=== PATIENT | female | born 1980 | race American Indian/Alaskan Native ===

== ENCOUNTER 2021-08-16 22:02 | Inpatient (IN) | payer MEDICARE ==
[2021-08-17 00:46] LABS: Basophils # (Auto) 0.1 K/mm3 (0.0-0.1); Basophils % (Auto) 1.2 % (0.0-1.8); Eosinophils # (Auto) 0.4 K/mm3 (0.0-0.4); Eosinophils % (Auto) 3.6 % (0.0-4.3); Hematocrit 36.7 % (30.3-42.9); Hemoglobin 12.1 gm/dl (10.1-14.3); Lymphocytes # (Auto) 1.1 K/mm3 (1.2-5.4); Lymphocytes % (Auto) 10.5 % (13.4-35.0); Mean Corpuscular HGB Conc 33 % (30-34); Mean Corpuscular Volume 86 fl (79-97); Monocytes # (Auto) 0.6 K/mm3 (0.0-0.8); Monocytes % (Auto) 5.6 % (0.0-7.3); Platelet Count 213 K/mm3 (140-440); Red Blood Count 4.27 M/mm3 (3.65-5.03); Red Cell Distribution Width 19.7 % (13.2-15.2)
[2021-08-17 00:54] LABS: Calcium 8.7 mg/dL (8.4-10.2)
[2021-08-17] MEDS ORDERED: INSULIN REGULAR, HUMAN 100 UNITS/1 ML SUB-Q ONE (00:57)
[2021-08-17] MEDS ORDERED: INSULIN REGULAR, HUMAN 100 UNITS/1 ML IV ONE (00:57)
--- NOTE | 2021-08-17 00:59 | Emergency Department Report ---
ED General Adult HPI - General Chief complaint: Hyperglycemia Stated complaint: HIGH BLOOD SUGAR Time Seen by Provider: 08/17/21 00:55 Source: EMS Mode of arrival: Stretcher Limitations: No Limitations, Physical Limitation - History of Present Illness Initial comments: 41 yo F with h/o CVA, chronic kidney disease currently on dialysis on Sunday, Sunday and Fridays and DM brought in by family member with altered mental status change that was noticed around 8 PM last night. Patient blood sugar was checked at home and it was above 500 mg/dl according to family member. Patient is reported to have type 1 diabetes and currently on insulin. Patient is unresponsive at this point and could not give any history. History is very limited to what the family member provided. Patient was reported to have missed dialysis on Sunday plan to have 1 this morning. No other modifying or associated factors reported. Severity scale (0 -10): 0 - Related Data Home Medications Medication Instructions Recorded Confirmed Last Taken Hydralazine HCl [hydrALAZINE] 100 mg PO TID 04/02/13 04/02/13 04/02/13 08:00 Levothyroxine [Synthroid] 125 mcg PO QAM 04/02/13 04/02/13 04/02/13 08:00 Previous Rx's Medication Instructions Recorded Last Taken Type Aspirin/Dipyridamole [Aggrenox] 1 cap PO BID #60 capsule 04/10/13 Unknown Rx Insulin Glargine,Hum.rec.anlog 20 unit SQ BID #10 ml 04/10/13 Unknown Rx [Lantus Solostar] Losartan [Cozaar] 50 mg PO QDAY #60 tablet 04/10/13 Unknown Rx Simvastatin (Nf) [Zocor TAB] 20 mg PO QHS #30 tablet 04/10/13 Unknown Rx Warfarin [Coumadin] 2.5 mg PO DAILY@1700 #30 tablet 04/10/13 Unknown Rx Warfarin [Coumadin] 10 mg PO DAILY@1700 #30 tablet 04/10/13 Unknown Rx Allergies Allergy/AdvReac Type Severity Reaction Status Date / Time vancomycin AdvReac Hives Verified 04/02/13 10:16 ED Review of Systems ROS: Stated complaint: HIGH BLOOD SUGAR Other details as noted in HPI Comment: All other systems reviewed and negative Constitutional: other (Unresponsive) ED Past Medical Hx - Past Medical History Previous Medical History?: Yes Hx Hypertension: Yes Hx CVA: Yes (x 2 years ago and x2 months ago) Hx Diabetes: Yes Hx Deep Vein Thrombosis: Yes (L leg) Hx Pulmonary Embolism: Yes Hx Headaches / Migraines: Yes Additional medical history: Hx kidney insufficiency - Surgical History Past Surgical History?: No - Social History Smoking Status: Unknown if ever smoked - Medications Home Medications: Home Medications Medication Instructions Recorded Confirmed Last Taken Type Hydralazine HCl [hydrALAZINE] 100 mg PO TID 04/02/13 04/02/13 04/02/13 08:00 History Levothyroxine [Synthroid] 125 mcg PO QAM 04/02/13 04/02/13 04/02/13 08:00 History Aspirin/Dipyridamole [Aggrenox] 1 cap PO BID #60 capsule 04/10/13 Unknown Rx Insulin Glargine,Hum.rec.anlog 20 unit SQ BID #10 ml 04/10/13 Unknown Rx [Lantus Solostar] Losartan [Cozaar] 50 mg PO QDAY #60 tablet 04/10/13 Unknown Rx Simvastatin (Nf) [Zocor TAB] 20 mg PO QHS #30 tablet 04/10/13 Unknown Rx Warfarin [Coumadin] 2.5 mg PO DAILY@1700 #30 tablet 04/10/13 Unknown Rx Warfarin [Coumadin] 10 mg PO DAILY@1700 #30 tablet 04/10/13 Unknown Rx ED Physical Exam - General Limitations: Altered Mental Status, Physical Limitation General appearance: in no apparent distress, lethargic - Head Head exam: Present: normal inspection - Eye Eye exam: Present: normal appearance - ENT ENT exam: Present: normal exam, normal orophraynx, mucous membranes dry - Neck Neck exam: Present: normal inspection, full ROM. Absent: tenderness - Respiratory Respiratory exam: Present: normal lung sounds bilaterally. Absent: respiratory distress, accessory muscle use - Cardiovascular Cardiovascular Exam: Present: regular rate, normal rhythm, normal heart sounds - GI/Abdominal GI/Abdominal exam: Present: soft, normal bowel sounds. Absent: tenderness - Extremities Exam Extremities exam: Present: normal inspection. Absent: tenderness - Back Exam Back exam: Absent: tenderness - Neurological Exam Neurological exam: Present: alert, other (Altered mental status) - Psychiatric Psychiatric exam: Present: normal affect, normal mood - Skin Skin exam: Present: warm ED Course Vital Signs 05/24/22 22:58 Temperature 98.1 F Pulse Rate 79 Respiratory 18 Rate Blood Pressure 181/64 [Right] O2 Sat by Pulse 96 Oximetry - Reevaluation(s) Reevaluation #1: 08/17/21 03:41 Here with altered mental status with elevated blood sugar at 594 mg/dL--this patient is likely in DKA or having a slight systemic infection--we will go ahead and start aggressive IV fluid 1 L bolus right away and give insulin 10 units IV and 10 units subcu--we will also order CT scan of the brain considering that this patient has history of CVA in the past to rule out any intracranial abnormality. 08/17/21 03:43 CT scan of the brain noted with no acute intracranial findings-- Reevaluation #2: 08/17/21 03:43 Elevated BUN/creatinine with normal potassium--also noted with blood sugar of 594 mg/dL--coupled with anion gap of 28--this is likely DKA so we will continue aggressive IV fluid hydration and start patient on insulin drip and consider admission to ICU. 08/17/21 03:45 Dr Ordoñez consulted who accept pt for further evaluation and treatment ED Medical Decision Making - Lab Data Result diagrams: 08/17/21 00:33 08/17/21 02:07 Critical Care Time: Yes (120) Critical care time in (mins) excluding proc time.: 120 Critical care attestation.: If time is entered above; I have spent that time in minutes in the direct care of this critically ill patient, excluding procedure time. Pt brought in with AMS and noted with hyperglycemia likely in DKA and was started on aggressive ivf ns hydration and given insulin and due to high probability of clinically significant, life threatening deterioration, this patient required my highest level of preparedness to intervene emergently and I personally spent this critical care time directly and personally managing this patient. This critical care time included obtaining a history; examining this patient; pulse oximetry ; ordering and review of studies ; arranging urgent treatment with development of a management plan ; evaluation of patient's response to treatment ; frequent reassessment ; and, discussion with other providers. This critical care time was performed to assess and manage the high probability of imminent, life-threatening deterioration that could result in multiple organ damage if not done in a timely fashion. Critical Care Time: 120 minutes ED Disposition Clinical Impression: DKA (diabetic ketoacidosis) Qualifiers: Diabetes mellitus type: type 1 Diabetes mellitus complication detail: without coma Qualified Code(s): E10.10 - Type 1 diabetes mellitus with ketoacidosis without coma Disposition: 09 ADMITTED INPATIENT Is pt being admited?: Yes Does the pt Need Aspirin: No Condition: Serious Instructions: Diabetic Ketoacidosis (ED) Referrals: PRIMARY CARE, [Primary Care Provider] - 3-5 Days
[2021-08-17] MEDS ORDERED: SODIUM CHLORIDE 0.9% 1000 ML 1,000 ML ONE (01:18)
[2021-08-17 02:37] LABS: INR 0.95 (0.87-1.13); Partial Thromboplastin Time 26.8 Sec. (24.2-36.6)
[2021-08-17 02:51] LABS: Albumin 3.9 g/dL (3.9-5); Blood Urea Nitrogen 61 mg/dL (7-17); Hemolysis Index 6
--- NOTE | 2021-08-17 02:55 | Cat Scan Report ---
CT HEAD WITHOUT CONTRAST INDICATION: Altered Mental Status TECHNIQUE: All CT scans at this location are performed using CT dose reduction for ALARA by means of automated exposure control. COMPARISON: None available. FINDINGS: NOTE: Moderate motion artifact is present. BRAIN: No hemorrhage or mass effect are seen. No evidence of acute infarction is noted. Old infarctio n of the right frontal parietal area is seen with old infarction of the anterior portion of the right thalamus. Probable old lacunar infarction in the left gallo radiata. Microvascular changes are seen . Right lateral ventricle is expanded thought related to prior infarctions. ORBITS: Normal as visualized. SOFT TISSUES OF HEAD: Normal. CALVARIUM: Normal. VISUALIZED PARANASAL SINUSES AND MASTOID AIR CELLS: Clear. ADDITIONAL FINDINGS: None. IMPRESSION: No acute intracranial abnormality is obvious in a difficult study. Signer Name: Mohsen Smith MD Signed: 08/17/2021 2:50 AM Workstation Name: [id number]
[2021-08-17 02:59] LABS: Alanine Aminotransferase < 5 units/L (7-56); BUN/Creatinine Ratio 6
[2021-08-17] MEDS ORDERED: MORPHINE 2 MG/1 ML INJ IV PRN ×2 (03:49→04:09)
[2021-08-17] MEDS ORDERED: ACETAMINOPHEN 325 MG TAB PO PRN ×2 (03:49→04:09)
[2021-08-17] MEDS ORDERED: DEXTROSE 50% IN WATER (25GM) 50 ML SYRINGE IV PRN ×2 (03:51→23:37)
[2021-08-17] MEDS ORDERED: INSULIN REGULAR, HUMAN 100 UNITS in SODIUM CHLORIDE 0.9% 99 ML IV SCH (04:00)
[2021-08-17] MEDS ORDERED: MORPHINE 4 MG/1 ML INJ IV PRN (04:09)
[2021-08-17] MEDS ORDERED: SODIUM CHLORIDE 0.9% 1000 ML 1,000 ML IV SCH (04:15)
--- NOTE | 2021-08-17 04:22 | History and Physical Report ---
History of Present Illness Date of examination: 08/17/21 Date of admission: 08/17/2021 Chief complaint: Altered mental status History of present illness: 41-year-old female with known history of CVA, end-stage renal disease on dialysis on Mondays, Wednesdays and Fridays, diabetes mellitus brought into the emergency room accompanied by family for evaluation of changes in mental status which was said to have started at about 8 PM yesterday. Blood glucose was said to have been checked at home and reading was said to be high. There has been no nausea or vomiting, no diarrhea no complaints of abdominal pain. No chest pain or shortness of breath. Most of the history was obtained from family who was by the bedside as patient is unable to give any history at this time. Patient was said to have missed a dialysis on Sunday because she had not been feeling quite well. Work-up in the emergency room today, labs shows blood glucose of 533, anion gap of 28, BUN of 61 and creatinine of 10.3. CT of the head reveals no acute abnormality. Patient has been started on IV fluid and insulin drip. She will be closely monitored in the intensive care unit. Past History Past Medical History: dialysis, DVT, ESRD, hypertension, migraines, stroke Past Surgical History: No surgical history Social history: no significant social history Medications and Allergies Allergies Allergy/AdvReac Type Severity Reaction Status Date / Time vancomycin AdvReac Hives Verified 04/02/13 10:16 Home Medications Medication Instructions Recorded Confirmed Last Taken Type Hydralazine HCl [hydrALAZINE] 100 mg PO TID 04/02/13 04/02/13 04/02/13 08:00 History Levothyroxine [Synthroid] 125 mcg PO QAM 04/02/13 04/02/13 04/02/13 08:00 History Aspirin/Dipyridamole [Aggrenox] 1 cap PO BID #60 capsule 04/10/13 Unknown Rx Insulin Glargine,Hum.rec.anlog 20 unit SQ BID #10 ml 04/10/13 Unknown Rx [Lantus Solostar] Losartan [Cozaar] 50 mg PO QDAY #60 tablet 04/10/13 Unknown Rx Simvastatin (Nf) [Zocor TAB] 20 mg PO QHS #30 tablet 04/10/13 Unknown Rx Warfarin [Coumadin] 2.5 mg PO DAILY@1700 #30 tablet 04/10/13 Unknown Rx Warfarin [Coumadin] 10 mg PO DAILY@1700 #30 tablet 04/10/13 Unknown Rx Active Meds: Active Medications Acetaminophen (Acetaminophen 325 Mg Tab) 650 mg PO Q6H PRN PRN Reason: Pain MILD(1-3)/Fever >100.5/ALFARO Acetaminophen (Acetaminophen 325 Mg Tab) 650 mg PO Q6H PRN PRN Reason: Pain MILD(1-3)/Fever >100.5/ALFARO Dextrose (Dextrose 50% In Water (25gm) 50 Ml Syringe) 0 ml IV Q30MIN PRN; Protocol PRN Reason: Hypoglycemia Insulin Human Regular 100 (units/ Sodium Chloride) 100 mls @ 1 mls/hr IV TITR HAM; Protocol Sodium Chloride (Nacl 0.9% 1000 Ml) 1,000 mls @ 150 mls/hr IV DIRECT HAM Potassium Chloride/Dextrose/Sod Cl (D5w/0.45% Nacl/Kcl 20 Meq) 20 meq in 1,000 mls @ 125 mls/hr IV DIRECT HAM Magnesium Hydroxide (Magnesium Hydroxide (Mom) Oral Liqd Udc) 30 ml PO Q4H PRN PRN Reason: Constipation Morphine Sulfate (Morphine 2 Mg/1 Ml Inj) 2 mg IV Q4H PRN PRN Reason: Pain, Moderate (4-6) Morphine Sulfate (Morphine 2 Mg/1 Ml Inj) 2 mg IV Q4H PRN PRN Reason: Pain, Moderate (4-6) Morphine Sulfate (Morphine 4 Mg/1 Ml Inj) 4 mg IV Q4H PRN PRN Reason: Pain , Severe (7-10) Ondansetron HCl (Ondansetron 4 Mg/2 Ml Inj) 4 mg IV Q8H PRN PRN Reason: Nausea And Vomiting Sodium Chloride (Sodium Chloride 0.9% 10 Ml Flush Syringe) 10 ml IV BID HAM Sodium Chloride (Sodium Chloride 0.9% 10 Ml Flush Syringe) 10 ml IV PRN PRN PRN Reason: LINE FLUSH Sodium Chloride (Sodium Chloride 0.9% 10 Ml Flush Syringe) 10 ml IV BID HAM Sodium Chloride (Sodium Chloride 0.9% 10 Ml Flush Syringe) 10 ml IV PRN PRN PRN Reason: LINE FLUSH Review of Systems ROS unobtainable: due to mental status Exam - Constitutional Vitals: Temp Pulse Resp BP Pulse Ox 98.1 F 79 18 181/64 96 08/16/21 22:58 08/16/21 22:58 08/16/21 22:58 08/16/21 22:58 08/16/21 22:58 General appearance: Present: no acute distress, well-nourished - EENT Eyes: Present: PERRL, EOM intact. Absent: scleral icterus ENT: hearing intact, clear oral mucosa, dentition normal, hearing decreased, other (Dry oral mucosa) - Neck Neck: Present: supple, normal ROM - Respiratory Respiratory effort: normal Respiratory: bilateral: CTA - Cardiovascular Rhythm: regular Heart Sounds: Present: S1 & S2. Absent: gallop, systolic murmur, diastolic murmur, rub, click - Extremities Extremities: no ischemia, pulses intact, pulses symmetrical, No edema, normal temperature, normal color, Full ROM Peripheral Pulses: within normal limits - Abdominal General gastrointestinal: Present: soft, non-tender, non-distended, normal bowel sounds. Absent: mass - Integumentary Integumentary: Present: clear, warm, dry, normal turgor. Absent: rash - Musculoskeletal Musculoskeletal: strength equal bilaterally - Psychiatric Psychiatric: appropriate mood/affect, intact judgment & insight, memory intact, cooperative - Neurologic Neurologic: CNII-XII intact, no focal deficits, moves all extremities Results - Labs CBC & Chem 7: 08/17/21 00:33 08/17/21 04:20 Labs: Abnormal lab results 08/17/21 08/17/21 08/17/21 Range/Units 00:33 00:33 02:07 RDW 19.7 H (13.2-15.2) % Lymph % (Auto) 10.5 L (13.4-35.0) % Lymph # (Auto) 1.1 L (1.2-5.4) K/mm3 Seg Neutrophils % 79.1 H (40.0-70.0) % Seg Neutrophils # 8.6 H (1.8-7.7) K/mm3 Sodium 132 L 134 L (137-145) mmol/L Chloride 87.8 L 88.4 L (98-107) mmol/L Carbon Dioxide 21 L (22-30) mmol/L BUN 61 H 61 H (7-17) mg/dL Creatinine 10.1 H 10.3 H (0.6-1.2) mg/dL Glucose 594 H* 533 H* (65-100) mg/dL ALT < 5 L (7-56) units/L Alkaline Phosphatase 182 H (35-129) units/L NT-Pro-B Natriuret Pep 87353 H (0-450) pg/mL TSH (0.270-4.200) mlU/mL Salicylates (2.8-20.0) mg/dL Acetaminophen (10.0-30.0) ug/mL 08/17/21 08/17/21 08/17/21 Range/Units 02:07 02:07 02:07 RDW (13.2-15.2) % Lymph % (Auto) (13.4-35.0) % Lymph # (Auto) (1.2-5.4) K/mm3 Seg Neutrophils % (40.0-70.0) % Seg Neutrophils # (1.8-7.7) K/mm3 Sodium (137-145) mmol/L Chloride (98-107) mmol/L Carbon Dioxide (22-30) mmol/L BUN (7-17) mg/dL Creatinine (0.6-1.2) mg/dL Glucose (65-100) mg/dL ALT (7-56) units/L Alkaline Phosphatase (35-129) units/L NT-Pro-B Natriuret Pep (0-450) pg/mL TSH 5.080 H (0.270-4.200) mlU/mL Salicylates < 0.3 L (2.8-20.0) mg/dL Acetaminophen 5.0 L (10.0-30.0) ug/mL Assessment and Plan - Patient Problems (1) DKA (diabetic ketoacidosis) Current Visit: Yes Status: Acute Qualifiers: Diabetes mellitus type: type 1 Diabetes mellitus complication detail: without coma Qualified Code(s): E10.10 - Type 1 diabetes mellitus with ketoacidosis without coma Plan to address problem: Patient admitted and placed on insulin drip and IV fluid. Will monitor Accu-Cheks closely. (2) End stage renal disease on dialysis Current Visit: Yes Status: Acute Plan to address problem: Consult will be placed to the web administrator for possible dialysis. Patient is dialysis on Mondays, Wednesdays and Fridays. (3) CVA (cerebral infarction) Current Visit: No Status: Acute Plan to address problem: Patient has known history of recent CVA. With left residual weakness. (4) HTN (hypertension) Current Visit: No Status: Chronic Plan to address problem: We will resume routine home medications once able to tolerate p.o. intake. Will monitor vital signs closely. (5) Hypothyroidism Current Visit: No Status: Chronic Plan to address problem: We will continue routine home medications. Monitor TSH. (6) DVT prophylaxis Current Visit: Yes Status: Acute Plan to address problem: Patient placed on subcutaneous heparin. (7) Full code status Current Visit: Yes Status: Acute Plan to address problem: Patient is full code.
[2021-08-17 04:55] LABS: Calcium 9.1 mg/dL (8.4-10.2)
[2021-08-17] MEDS ORDERED: D5W/0.45% NACL/KCL 20 MEQ 20 MEQ/1,000 ML BAG IV SCH (05:00)
[2021-08-17] MEDS: HEPARIN 5,000 UNIT/1 ML VIAL SUB-Q SCH ×3 (07:20→22:28)
[2021-08-17] MEDS ORDERED: SODIUM CHLORIDE 0.9% 100 ML IV PRN (07:41)
[2021-08-17] MEDS ORDERED: HEPARIN 10,000 UNITS/10 ML VIAL IV PRN (07:41)
--- NOTE | 2021-08-17 08:24 | Consultation ---
History of Present Illness Consult date: 08/17/21 Requesting physician: FRANCESCA CHAVEZ Reason for consult: other (DAK, acute encephalopathy, Sepsis) History of present illness: 41-year-old female past medical history CVA, ESRD on HD, diabetes presented to the hospital with her family due to acute encephalopathy. This began the day prior to admission but was ongoing today. She was found to be hyperglycemic on admission. She was admitted to the ICU for an insulin drip. Blood glucose was said to have been checked at home and reading was said to be high. There has been no nausea or vomiting, no diarrhea no complaints of abdominal pain. No chest pain or shortness of breath. Missed HD on Sunday because she was not feeling well. History as per medical records- patient is unable to give me a history She is moaning and has transmitted upper airway sounds Work-up in the emergency room today, labs shows blood glucose of 533, anion gap of 28, BUN of 61 and creatinine of 10.3. CT of the head reveals no acute abnormality. Patient has been started on IV fluid and insulin drip. Febrile to 102.9 tachycardic, tachypneic with a white count 10.8. COVID-negative. Cefepime and azithromycin. No cultures for review. Vancomycin allergy Had a permcath removed [address]: No acute abnormality. Past History Past Medical History: dialysis, DVT, ESRD, hypertension, migraines, stroke Past Surgical History: No surgical history Social history: no significant social history Medications and Allergies Allergies Allergy/AdvReac Type Severity Reaction Status Date / Time vancomycin AdvReac Hives Verified 04/02/13 10:16 Home Medications Medication Instructions Recorded Confirmed Last Taken Type Hydralazine HCl [hydrALAZINE] 100 mg PO BID 04/02/13 08/17/21 04/02/13 08:00 History Aspirin/Dipyridamole [Aggrenox] 1 cap PO BID #60 capsule 04/10/13 08/17/21 Unknown Rx Cinacalcet [Sensipar] 60 mg PO QDAY 08/17/21 08/17/21 Unknown History Citalopram [celeXA] 20 mg PO QDAY 08/17/21 08/17/21 Unknown History Ergocalciferol [Vitamin D2] 1 cap PO QWEEK 08/17/21 08/17/21 Unknown History Gabapentin [Neurontin] 100 mg PO Q8HR 08/17/21 08/17/21 Unknown History Insulin Glargine,Hum.rec.anlog 55 unit SQ BID 08/17/21 08/17/21 Unknown History [Lantus Solostar] Promethazine [Phenergan] 25 mg PO Q6HR PRN 08/17/21 08/17/21 Unknown History Sevelamer Carbonate [Renvela] 800 mg PO TIDWM 08/17/21 08/17/21 Unknown History amLODIPine [Norvasc] 10 mg PO DAILY 08/17/21 08/17/21 Unknown History carvediloL [Coreg] 25 mg PO BID 08/17/21 08/17/21 Unknown History cloNIDine [Catapres] 0.2 mg PO BID 08/17/21 08/17/21 Unknown History Active Meds: Active Medications Acetaminophen (Acetaminophen 325 Mg Tab) 650 mg PO Q6H PRN PRN Reason: Pain, Mild (1-3) Acetaminophen (Acetaminophen 650 Mg Rect Supp) 650 mg SC Q4H PRN PRN Reason: Pain, Mild (1-3) Dextrose (Dextrose 50% In Water (25gm) 50 Ml Syringe) 0 ml IV Q30MIN PRN; Protocol PRN Reason: Hypoglycemia Heparin Sodium (Porcine) (Heparin 5,000 Unit/1 Ml Vial) 5,000 unit SUB-Q Q8HR [facility] Last Admin: 08/17/21 07:20 Dose: Not Given Heparin Sodium (Porcine) (Heparin 10,000 Units/10 Ml Vial) 3,000 unit IV KATI PRN PRN Reason: hemodialysis Hydralazine HCl (Hydralazine 100 Mg Tab) 100 mg PO TID [facility] Hydralazine HCl (Hydralazine 20 Mg/1 Ml Inj) 10 mg IV Q4HR PRN PRN Reason: Hypertension Hydromorphone HCl (Hydromorphone 0.5 Mg/0.5 Ml Inj) 0.25 mg IV Q4H PRN PRN Reason: Pain, Moderate (4-6) Insulin Human Regular 100 (units/ Sodium Chloride) 100 mls @ 1 mls/hr IV TITR [facility]; Protocol Last Titration: 08/17/21 08:03 Dose: 3 units/hr, 3 mls/hr Sodium Chloride (Nacl 0.9% 1000 Ml) 1,000 mls @ 150 mls/hr IV DIRECT [facility] Last Admin: 08/17/21 07:33 Dose: 150 mls/hr Sodium Chloride (Nacl 0.9%) 100 mls @ 999 mls/hr IV KATI PRN PRN Reason: Hypotension Cefepime HCl (Cefepime/Ns 2 Gm/100 Ml) 2 gm in 100 mls @ 200 mls/hr IV Q24H [facility]; Protocol Azithromycin (Zithromax/Ns) 500 mg in 250 mls @ 250 mls/hr IV Q24H [facility] Dextrose/Sodium Chloride (D5/0.45ns) 1,000 mls @ 50 mls/hr IV DIRECT [facility] Levothyroxine Sodium (Levothyroxine 125 Mcg Tab) 125 mcg PO QAM@0600 [facility] Losartan Potassium (Losartan 50 Mg Tab) 50 mg PO QDAY [facility] Magnesium Hydroxide (Magnesium Hydroxide (Mom) Oral Liqd Udc) 30 ml PO Q4H PRN PRN Reason: Constipation Ondansetron HCl (Ondansetron 4 Mg/2 Ml Inj) 4 mg IV Q8H PRN PRN Reason: Nausea And Vomiting Sodium Chloride (Sodium Chloride 0.9% 10 Ml Flush Syringe) 10 ml IV BID HAM Sodium Chloride (Sodium Chloride 0.9% 10 Ml Flush Syringe) 10 ml IV PRN PRN PRN Reason: LINE FLUSH Review of Systems ROS unobtainable: due to mental status Physical Examination Vital signs: Vital Signs Temp Pulse Resp BP Pulse Ox 98.1 F 79 18 181/64 96 08/16/21 22:58 08/16/21 22:58 08/16/21 22:58 08/16/21 22:58 08/16/21 22:58 General appearance: other (minimally rsponsive, transmitted upper airway sounds, on supplemetnal oxygen) Eyes: non-icteric ENT: oropharynx dry Neck: supple, no lymphadenopathy Effort: mildly labored Ascultation: Bilateral: clear, diminished breath sounds Cardiovascular: regular rate and rhythm, other (S1,S2) Gastrointestinal: normoactive bowel sounds, soft, non-tender, other (obese) Integumentary: normal Extremities: no cyanosis, no edema Musculoskeletal: no deformities pupils equal and round, unable to assess (moves all extremities, not obeying commands) other (Unable to assess mood or affect secondary to mental status) Results - Laboratory Findings CBC and BMP: 08/18/21 04:56 08/18/21 04:56 PT/INR, D-dimer PT 13.7 Sec. (12.2-14.9) 08/17/21 02:07 INR 0.95 (0.87-1.13) 08/17/21 02:07 Abnormal lab findings: Abnormal Labs 08/17/21 08/17/21 08/17/21 00:33 00:33 02:07 RDW 19.7 H Lymph % (Auto) 10.5 L Lymph # (Auto) 1.1 L Seg Neutrophils % 79.1 H Seg Neutrophils # 8.6 H Sodium 132 L 134 L Chloride 87.8 L 88.4 L Carbon Dioxide 21 L BUN 61 H 61 H Creatinine 10.1 H 10.3 H Glucose 594 H* 533 H* POC Glucose Phosphorus ALT < 5 L Alkaline Phosphatase 182 H NT-Pro-B Natriuret Pep 43613 H TSH Salicylates Acetaminophen 08/17/21 08/17/21 08/17/21 02:07 02:07 02:07 RDW Lymph % (Auto) Lymph # (Auto) Seg Neutrophils % Seg Neutrophils # Sodium Chloride Carbon Dioxide BUN Creatinine Glucose POC Glucose Phosphorus ALT Alkaline Phosphatase NT-Pro-B Natriuret Pep TSH 5.080 H Salicylates < 0.3 L Acetaminophen 5.0 L 08/17/21 08/17/21 08/17/21 04:20 04:20 05:09 RDW Lymph % (Auto) Lymph # (Auto) Seg Neutrophils % Seg Neutrophils # Sodium 136 L Chloride 90.9 L Carbon Dioxide BUN 61 H Creatinine 10.4 H Glucose 351 H POC Glucose 298 H Phosphorus 6.20 H ALT Alkaline Phosphatase NT-Pro-B Natriuret Pep TSH Salicylates Acetaminophen - Diagnostic Findings Chest x-ray: image reviewed (Right lower lobe infiltrate, interstial edema) Assessment and Plan Possible Sepsis- high grade fevers, tachycardia, acute encephalopathy, tachypnea DKA (Diabetic Ketoacidosis) Acute Metabolic Encephalopathy h/o CVA (cerebral infarction) with left-sided deficits End Stage renal Disease(ESRD) on HD HTN (Hypertension) h/o Hypothyroidism -Titrate supplemental oxygen to keep SpO2 89-92% -Aspiration precautions, keep NPO until mental status improves -Supportive HD per Renal -Antibiotics per ID, de-escalate based on culture data and clinical response -Monitor hemodynamics closely -Continue insulin infusion, serial BMPs, adjust and replete electrolytes per protocol -Monitor blood glucose, avoid hypoglycemia- challenging fluid management in the setting of DKA and ESRD -VTE prophylaxis- heparin -Mobility per facility protocol to avoid pressure ulcers -In the setting of previous CVA and on going encephalopathy- will recommend an MRI to r/o CVA. - Get thyroid function test. resume home Synthroid once patient is awake enough to protect airway -Monitor closely she is at risk of acute decompensation from a neurologic perspective; at risk for airway compromise CONDITION: CRITICAL PROGNOSIS: GUARDED CODE STATUS: FULL CODE Discussed care plan with nursing care team, pharmacy and primary service The high probability of a clinically significant, sudden or life threatening deterioration of the [multiple] system(s) required my full and direct attention, intervention and personal management. The aggregate critical care time was [76] minutes. This time is in addition to time spent performing reported procedures but includes the following: [x] Data Review and interpretation [x] Patient assessment and monitoring of vital signs [x] Documentation [x] Medication orders and management
[2021-08-17] MEDS: hydrALAZINE 100 MG TAB PO SCH ×3 (08:31→22:28)
[2021-08-17] MEDS: CEFEPIME/NS 2 GM/100 ML 2 GM/100 ML BAG IV SCH (08:37)
[2021-08-17] MEDS: ACETAMINOPHEN 650 MG RECT SUPP PR PRN ×2 (08:38→14:49)
[2021-08-17] MEDS: hydrALAZINE 20 MG/1 ML INJ IV PRN ×3 (08:43→20:53)
[2021-08-17] MEDS ORDERED: D5W/0.45% NACL 1,000 ML IV SCH (09:00)
[2021-08-17] MEDS ORDERED: AZITHROMYCIN/NS 500 MG/250 ML 500 MG/250 ML BAG IV SCH (09:00)
[2021-08-17] MEDS: LEVOTHYROXINE 125 MCG TAB PO SCH (09:09)
[2021-08-17] MEDS: LOSARTAN 50 MG TAB PO SCH (09:09)
--- NOTE | 2021-08-17 11:33 | XRay Report ---
CHEST 1 VIEW 08/17/2021 10:25 AM INDICATION / CLINICAL INFORMATION: Fever. COMPARISON: 04/02/2013 FINDINGS: SUPPORT DEVICES: None. HEART / MEDIASTINUM: No significant abnormality. LUNGS / PLEURA: There is poor inspiration. No significant pulmonary or pleural abnormality. No pneumo thorax. ADDITIONAL FINDINGS: No significant additional findings. IMPRESSION: 1. No acute findings. Signer Name: Steven Scales Jr, MD Signed: 08/17/2021 11:28 AM Workstation Name: [id number]
[2021-08-17] MEDS: FAMOTIDINE 20 MG/2 ML INJ IV SCH (11:40)
--- NOTE | 2021-08-17 11:41 | Consultation ---
History of Present Illness Consult date: 08/17/21 Reason for Consult: Altered mentation,Hyperglycemia,Hx of ESRD,Hx of CVA History of present illness: Altered mental status History of present illness: 41-year-old female with known history of CVA, end-stage renal disease on dialysis on Mondays, Wednesdays and Fridays, diabetes mellitus brought into the emergency room accompanied by family for evaluation of changes in mental status which was said to have started at about 8 PM yesterday. Blood glucose was said to have been checked at home and reading was said to be high. There has been no nausea or vomiting, no diarrhea no complaints of abdominal pain. No chest pain or shortness of breath. Most of the history was obtained from family who was by the bedside as patient is unable to give any history at this time. Patient was said to have missed a dialysis on Sunday because she had not been feeling quite well. Work-up in the emergency room today, labs shows blood glucose of 533, anion gap of 28, BUN of 61 and creatinine of 10.3. CT of the head reveals no acute abnormality. Patient has been started on IV fluid and insulin drip. She will be closely mon itored in the intensive care unit. Neurology consulted for evaluation of status she is not following command , had slight legs jerking bialteral , off sdeation ,on dialysis today BP#201/84 CT brain is unremarkable Glucose#533--351 [id number] Past History Past Medical History: dialysis, DVT, ESRD, hypertension, migraines, stroke Past Surgical History: No surgical history Social history: no significant social history Medications and Allergies Allergies Allergy/AdvReac Type Severity Reaction Status Date / Time vancomycin AdvReac Hives Verified 04/02/13 10:16 Home Medications Medication Instructions Recorded Confirmed Last Taken Type Hydralazine HCl [hydrALAZINE] 100 mg PO TID 04/02/13 04/02/13 04/02/13 08:00 Hi story Levothyroxine [Synthroid] 125 mcg PO QAM 04/02/13 04/02/13 04/02/13 08:00 History Aspirin/Dipyridamole [Aggrenox] 1 cap PO BID #60 capsule 04/10/13 Unknown Rx Insulin Glargine,Hum.rec.anlog 20 unit SQ BID #10 ml 04/10/13 Unknown Rx [Lantus Solostar] Losartan [Cozaar] 50 mg PO QDAY #60 tablet 04/10/13 Unknown Rx Simvastatin (Nf) [Zocor TAB] 20 mg PO QHS #30 tablet 04/10/13 Unknown Rx Warfarin [Coumadin] 2.5 mg PO DAILY@1700 #30 tablet 04/10/13 Unknown Rx Warfarin [Coumadin] 10 mg PO DAILY@1700 #30 tablet 04/10/13 Unknown Rx Active Meds: Active Medications Acetaminophen (Acetaminophen 325 Mg Tab) 650 mg PO Q6H PRN PRN Reason: Pain MILD(1-3)/Fever >100.5/[place] Acetaminophen (Acetaminophen 325 Mg Tab) 650 mg PO Q6H PRN PRN Reason: Pain MILD(1-3)/Fever >100.5/[place] Dextrose (Dextrose 50% In Water (25gm) 50 Ml Syringe) 0 ml IV Q30MIN PRN; Protocol PRN Reason: Hypoglycemia Insulin Human Regular 100 (units/ Sodium Chloride) 100 mls @ 1 mls/hr IV TITR HAM; Protocol Sodium Chloride (Nacl 0.9% 1000 Ml) 1,000 mls @ 150 mls/hr IV DIRECT [facility] Potassium Chloride/Dextrose/Sod Cl (D5w/0.45% Nacl/Kcl 20 Meq) 20 meq in 1,000 mls @ 125 mls/hr IV DIRECT [facility] Magnesium Hydroxide (Magnesium Hydroxide (Mom) Oral Liqd Udc) 30 ml PO Q4H PRN PRN Reason: Constipation Morphine Sulfate (Morphine 2 Mg/1 Ml Inj) 2 mg IV Q4H PRN PRN Reason: Pain, Moderate (4-6) Morphine Sulfate (Morphine 2 Mg/1 Ml Inj) 2 mg IV Q4H PRN PRN Reason: Pain, Moderate (4-6) Morphine Sulfate (Morphine 4 Mg/1 Ml Inj) 4 mg IV Q4H PRN PRN Reason: Pain , Severe (7-10) Ondansetron HCl (Ondansetron 4 Mg/2 Ml Inj) 4 mg IV Q8H PRN PRN Reason: Nausea And Vomiting Sodium Chloride (Sodium Chloride 0.9% 10 Ml Flush Syringe) 10 ml IV BID HAM Sodium Chloride (Sodium Chloride 0.9% 10 Ml Flush Syringe) 10 ml IV PRN PRN PRN Reason: LINE FLUSH Sodium Chloride (Sodium Chloride 0.9% 10 Ml Flush Syringe) 10 ml IV BID HAM Sodium Chloride (Sodium Chloride 0.9% 10 Ml Flush Syringe) 10 ml IV PRN PRN PRN Reason: LINE FLUSH Review of Systems ROS unobtainable: due to mental status Exam Past History Past Medical History: dialysis, DVT, ESRD, hypertension, migraines, stroke Past Surgical History: No surgical history Social history: no significant social history Medications and Allergies Allergies Allergy/AdvReac Type Severity Reaction Status Date / Time vancomycin AdvReac Hives Verified 04/02/13 10:16 Home Medications Medication Instructions Recorded Confirmed Last Taken Type Hydralazine HCl [hydrALAZINE] 100 mg PO TID 04/02/13 04/02/13 04/02/13 08:00 History Levothyroxine [Synthroid] 125 mcg PO QAM 04/02/13 04/02/13 04/02/13 08:00 History Aspirin/Dipyridamole [Aggrenox] 1 cap PO BID #60 capsule 04/10/13 Unknown Rx Insulin Glargine,Hum.rec.anlog 20 unit SQ BID #10 ml 04/10/13 Unknown Rx [Lantus Solostar] Losartan [Cozaar] 50 mg PO QDAY #60 tablet 04/10/13 Unknown Rx Simvastatin (Nf) [Zocor TAB] 20 mg PO QHS #30 tablet 04/10/13 Unknown Rx Warfarin [Coumadin] 2.5 mg PO DAILY@1700 #30 tablet 04/10/13 Unknown Rx Warfarin [Coumadin] 10 mg PO DAILY@1700 #30 tablet 04/10/13 Unknown Rx Active Meds: Active Medications Acetaminophen (Acetaminophen 325 Mg Tab) 650 mg PO Q6H PRN PRN Reason: Pain, Mild (1-3) Acetaminophen (Acetaminophen 650 Mg Rect Supp) 650 mg ID Q4H PRN PRN Reason: Pain, Mild (1-3) Last Admin: 08/17/21 08:38 Dose: 650 mg Dextrose (Dextrose 50% In Water (25gm) 50 Ml Syringe) 0 ml IV Q30MIN PRN; Protocol PRN Reason: Hypoglycemia Famotidine (Famotidine 20 Mg/2 Ml Inj) 20 mg IV QDAY [facility] Heparin Sodium (Porcine) (Heparin 5,000 Unit/1 Ml Vial) 5,000 unit SUB-Q Q8HR [facility] Last Admin: 08/17/21 07:20 Dose: Not Given Heparin Sodium (Porcine) (Heparin 10,000 Units/10 Ml Vial) 3,000 unit IV KATI PRN PRN Reason: hemodialysis Hydralazine HCl (Hydralazine 100 Mg Tab) 100 mg PO TID [facility] Last Admin: 08/17/21 08:31 Dose: Not Given Hydralazine HCl (Hydralazine 20 Mg/1 Ml Inj) 10 mg IV Q4HR PRN PRN Reason: Hypertension Last Admin: 08/17/21 08:43 Dose: 10 mg Hydromorphone HCl (Hydromorphone 0.5 Mg/0.5 Ml Inj) 0.25 mg IV Q4H PRN PRN Reason: Pain, Moderate (4-6) Insulin Human Regular 100 (units/ Sodium Chloride) 100 mls @ 1 mls/hr IV TITR [facility]; Protocol Last Titration: 08/17/21 10:55 Dose: 2 units/hr, 2 mls/hr Sodium Chloride (Nacl 0.9% 1000 Ml) 1,000 mls @ 150 mls/hr IV DIRECT [facility] Last Infusion: 08/17/21 08:40 Dose: 0 mls/hr Sodium Chloride (Nacl 0.9%) 100 mls @ 999 mls/hr IV KATI PRN PRN Reason: Hypotension Cefepime HCl (Cefepime/Ns 2 Gm/100 Ml) 2 gm in 100 mls @ 200 mls/hr IV Q24H [facility]; Protocol Last Infusion: 08/17/21 09:10 Dose: Infused Azithromycin (Zithromax/Ns) 500 mg in 250 mls @ 250 mls/hr IV Q24H [facility] Last Admin: 08/17/21 08:38 Dose: 250 mls/hr Dextrose/Sodium Chloride (D5/0.45ns) 1,000 mls @ 50 mls/hr IV DIRECT [facility] Last Admin: 08/17/21 08:39 Dose: 50 mls/hr Levothyroxine Sodium (Levothyroxine 125 Mcg Tab) 125 mcg PO QAM@0600 [facility] Last Admin: 08/17/21 09:09 Dose: Not Given Losartan Potassium (Losartan 50 Mg Tab) 50 mg PO QDAY [facility] Last Admin: 08/17/21 09:09 Dose: Not Given Magnesium Hydroxide (Magnesium Hydroxide (Mom) Oral Liqd Udc) 30 ml PO Q4H PRN PRN Reason: Constipation Ondansetron HCl (Ondansetron 4 Mg/2 Ml Inj) 4 mg IV Q8H PRN PRN Reason: Nausea And Vomiting Sodium Chloride (Sodium Chloride 0.9% 10 Ml Flush Syringe) 10 ml IV BID [facility] Last Admin: 08/17/21 09:09 Dose: 10 ml Sodium Chloride (Sodium Chloride 0.9% 10 Ml Flush Syringe) 10 ml IV PRN PRN PRN Reason: LINE FLUSH Physical Examination - Vital Signs Vital Signs: Vital Signs Temp Pulse Resp BP Pulse Ox 98.1 F 79 18 181/64 96 08/16/21 22:58 08/16/21 22:58 08/16/21 22:58 08/16/21 22:58 08/16/21 22:58 - Constitutional General appearance: uncomfortable - EENT EENT: Present: PERRL, mucous membranes moist - Respiratory Respiratory: Present: lungs clear, rhonchi - Cardiovascular Cardiovascular: Present: regular rate, normal S1, normal S2 Extremities: Present: no peripheral edema bilatateraly, no clubbing, cyanosis - Gastrointestinal Gastrointestinal: Present: normoactive bowel sounds - Integumentary Integumentary: Present: normal - Neurologic Cranial nerve examination: PERRL, EOMI, intact, other (suppressed corneal on right side , no facial asymmetry) Speech examination: other (intubated unresponsive) Detailed motor examination: other (move both side R>L , slight ioncrease tone on left side , Jerking both legs ,planter is down going) Results - Laboratory Findings CBC and BMP: 08/17/21 00:33 08/17/21 04:20 Abnormal Lab Findings: Abnormal Labs 08/17/21 08/17/21 08/17/21 00:33 00:33 02:07 RDW 19.7 H Lymph % (Auto) 10.5 L Lymph # (Auto) 1.1 L Seg Neutrophils % 79.1 H Seg Neutrophils # 8.6 H Sodium 132 L 134 L Chloride 87.8 L 88.4 L Carbon Dioxide 21 L BUN 61 H 61 H Creatinine 10.1 H 10.3 H Glucose 594 H* 533 H* POC Glucose Phosphorus ALT < 5 L Alkaline Phosphatase 182 H NT-Pro-B Natriuret Pep 18633 H TSH Salicylates Acetaminophen 08/17/21 08/17/21 08/17/21 02:07 02:07 02:07 RDW Lymph % (Auto) Lymph # (Auto) Seg Neutrophils % Seg Neutrophils # Sodium Chloride Carbon Dioxide BUN Creatinine Glucose POC Glucose Phosphorus ALT Alkaline Phosphatase NT-Pro-B Natriuret Pep TSH 5.080 H Salicylates < 0.3 L Acetaminophen 5.0 L 08/17/21 08/17/21 08/17/21 04:20 04:20 05:09 RDW Lymph % (Auto) Lymph # (Auto) Seg Neutrophils % Seg Neutrophils # Sodium 136 L Chloride 90.9 L Carbon Dioxide BUN 61 H Creatinine 10.4 H Glucose 351 H POC Glucose 298 H Phosphorus 6.20 H ALT Alkaline Phosphatase NT-Pro-B Natriuret Pep TSH Salicylates Acetaminophen 08/17/21 09:58 RDW Lymph % (Auto) Lymph # (Auto) Seg Neutrophils % Seg Neutrophils # Sodium Chloride Carbon Dioxide BUN Creatinine Glucose POC Glucose 139 H Phosphorus ALT Alkaline Phosphatase NT-Pro-B Natriuret Pep TSH Salicylates Acetaminophen Assessment and Plan Assessment and Plan 41-year-old female with known history of CVA, end-stage renal disease on dialysis on Mondays, Wednesdays and Fridays, diabetes mellitus brought into the emergency room accompanied by family for evaluation of changes in mental status which was said to have started at about 8 PM yesterday. Blood glucose was said to have been checked at home and reading was said to be high. There has been no nausea or vomiting, no diarrhea no complaints of abdominal pain. No chest pain or shortness of breath. Most of the history was obtained from family who was by the bedside as patient is unable to give any history at this time. Patient was said to have missed a dialysis on Sunday because she had not been feeling quite well. Work-up in the emergency room today, labs shows blood glucose of 533, anion gap of 28, BUN of 61 and creatinine of 10.3. CT of the head reveals no acute abnormality. - Patient Problems #Acute encephalopathy -Pt. is with poorly controlled Diabetes -Hx of ESRD on Dialysis -no sedation , -today is unresponsive move R>L with right decrease corneal reflex -legs jerking bilateral -R/O Seizure -R/O CVA, -MRI brain -EEG -Seizure precaution -Correct underlying infection/electrolytes abnormalities/Dialysis -started on ASA 325 daily -LDL -Echo cardiogram # DKA (diabetic ketoacidosis) -ketoacidosis without coma -Patient admitted and placed on insulin drip and IV fluid. -Will monitor Accu-Cheks closely. # End stage renal disease on dialysis -Consult will be placed to the camp dishwasher for possible dialysis. -Patient is dialysis on Mondays, Wednesdays and Fridays. # hx of CVA -left side weakness -start on ASA , -Lipid profil -Echo # HTN ,Poorly controlled -201/84 -Control BP<150/85 after review MRI R/O CVA -CT brain is unremarkable # Hypothyroidism -We will continue routine home medications. Monitor TSH. # DVT prophylaxis -Patient placed on subcutaneous heparin. # Full code status -Patient is full code. PLAN 1- EEG 2- MRI brain 3-ASA 325 mg daily 4- Dialysis 5- Control BS 6- Control BP will follow
--- NOTE | 2021-08-17 12:16 | Electrocardiograph Report ---
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
--- NOTE | 2021-08-17 12:38 | Event Note ---
<ADAM WORKMAN - Last Filed: 08/17/21 23:30> Date: 08/17/21 This is a 41 year-old female with known past medical history of CVA, DVT, HTM, ESRD on HD(MWF), and type 2 diabetes mellitus admitted for DKA Patient seen and examined at the bedside. Patient remains alert and obtunded, only arousable with stimuli. CT head noted with no acute abnormality. Neurology consulted. On 2L NC and able to protect her airway. Patient remains on insulin gtt per DKA protocol, BG is improving and anion gap most likely due to ESRD. Plan for HD today per Nephro, possible transition to subQ insulin post HD treatment. Patient is also febrile this am, VSS. Orders placed for blood cultures, empiric IV abx was initiated and ID was consulted. 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 - Orders placed for blood cultures - Empiric IV abx initiated - ID was also consulted - Continue to F/U on B.cultures - Daily CBC monitor #End Stage renal Disease(ESRD) on HD - Nephrology on consult, appreciated recommendation - HD per Nephro - Strict intake and output, patient is anuric - Avoid nephrotoxic medications; Renally dose medications - Monitor and replace electrolytes as needed #Acute Metabolic Encephalopathy #H/o CVA (cerebral infarction) with left-sided deficits - Multifactorial, DKA vs azotemia vs infectious process - Patient remains alerted and obtunded this am - CT head noted with mo acute abnormality - On DKA protocol, HD per Nephro, and on IV abx - Fall and safety precaution - Aspiration precaution - Frequent reorientation - Avoid benzodiazepine to reduce the possibility of delirium - Maintenance of sleep-wake cycle #HTN (Hypertension) - Hypertensive this am, patient unable to take PO meds due to alerted mentation - PO antihypertensives held - PRN Hydralazine and Labetalol for SBP greater than 160 - Continue blood pressure monitor per protocol #Hypothyroidism - Resume home synthroid #GI/ DVT Prophylaxis - PPI- Pepcid - Heparin SubQ - SCDs to bilateral lower extremities while in bed +CCT 30 minutes <JACQUIE HAMMOND - Last Filed: 08/18/21 07:03> I saw and evaluated the patient. I agree with the findings and the plan of care as documented in the Nurse Practitioner's~note, with the following corrections and additions. Advance care planning Current Visit: Yes Status: Acute Plan to address problem: Disease education data, care plan discussed, diagnoses discussed, prognosis discussed, patient is full code. Patient family knowledges understanding and agreement with care plan, +30 minutes.
--- NOTE | 2021-08-17 13:06 | Consultation ---
History of Present Illness - Reason for Consult Consult date: 08/17/21 - History of Present Illness 41-year-old female past medical history CVA, ESRD on HD, diabetes presented to the hospital with her family due to acute encephalopathy. This began the day prior to admission but was ongoing today. She was found to be hyperglycemic on admission. She was admitted to the ICU for an insulin drip. Febrile to 102.9 tachycardic, tachypneic with a white count 10.8. COVID- negative. Cefepime and azithromycin. No cultures for review. Imaging personally viewed: Chest x-ray: No acute findings. Head CT: No acute abnormality. Past History Past Medical History: dialysis, DVT, ESRD, hypertension, migraines, stroke Past Surgical History: No surgical history Social history: no significant social history Family history: diabetes, hypertension Medications and Allergies Allergies Allergy/AdvReac Type Severity Reaction Status Date / Time vancomycin AdvReac Hives Verified 04/02/13 10:16 Home Medications Medication Instructions Recorded Confirmed Last Taken Type Hydralazine HCl [hydrALAZINE] 100 mg PO TID 04/02/13 04/02/13 04/02/13 08:00 History Levothyroxine [Synthroid] 125 mcg PO QAM 04/02/13 04/02/13 04/02/13 08:00 History Aspirin/Dipyridamole [Aggrenox] 1 cap PO BID #60 capsule 04/10/13 Unknown Rx Insulin Glargine,Hum.rec.anlog 20 unit SQ BID #10 ml 04/10/13 Unknown Rx [Lantus Solostar] Losartan [Cozaar] 50 mg PO QDAY #60 tablet 04/10/13 Unknown Rx Simvastatin (Nf) [Zocor TAB] 20 mg PO QHS #30 tablet 04/10/13 Unknown Rx Warfarin [Coumadin] 2.5 mg PO DAILY@1700 #30 tablet 04/10/13 Unknown Rx Warfarin [Coumadin] 10 mg PO DAILY@1700 #30 tablet 04/10/13 Unknown Rx Active Meds: Active Medications Acetaminophen (Acetaminophen 325 Mg Tab) 650 mg PO Q6H PRN PRN Reason: Pain, Mild (1-3) Acetaminophen (Acetaminophen 650 Mg Rect Supp) 650 mg CO Q4H PRN PRN Reason: Pain, Mild (1-3) Last Admin: 08/17/21 08:38 Dose: 650 mg Aspirin (Aspirin Ec 325 Mg Tab) 325 mg PO QDAY [facility] Dextrose (Dextrose 50% In Water (25gm) 50 Ml Syringe) 0 ml IV Q30MIN PRN; Protocol PRN Reason: Hypoglycemia Famotidine (Famotidine 20 Mg/2 Ml Inj) 20 mg IV QDAY [facility] Last Admin: 08/17/21 11:40 Dose: 20 mg Heparin Sodium (Porcine) (Heparin 5,000 Unit/1 Ml Vial) 5,000 unit SUB-Q Q8HR [facility] Last Admin: 08/17/21 07:20 Dose: Not Given Heparin Sodium (Porcine) (Heparin 10,000 Units/10 Ml Vial) 3,000 unit IV KATI PRN PRN Reason: hemodialysis Hydralazine HCl (Hydralazine 100 Mg Tab) 100 mg PO TID [facility] Last Admin: 08/17/21 08:31 Dose: Not Given Hydralazine HCl (Hydralazine 20 Mg/1 Ml Inj) 10 mg IV Q4HR PRN PRN Reason: Hypertension Last Admin: 08/17/21 08:43 Dose: 10 mg Hydromorphone HCl (Hydromorphone 0.5 Mg/0.5 Ml Inj) 0.25 mg IV Q4H PRN PRN Reason: Pain, Moderate (4-6) Insulin Human Regular 100 (units/ Sodium Chloride) 100 mls @ 1 mls/hr IV TITR [facility]; Protocol Last Titration: 08/17/21 11:58 Dose: 2 units/hr, 2 mls/hr Sodium Chloride (Nacl 0.9% 1000 Ml) 1,000 mls @ 150 mls/hr IV DIRECT [facility] Last Infusion: 08/17/21 08:40 Dose: 0 mls/hr Sodium Chloride (Nacl 0.9%) 100 mls @ 999 mls/hr IV KATI PRN PRN Reason: Hypotension Cefepime HCl (Cefepime/Ns 2 Gm/100 Ml) 2 gm in 100 mls @ 200 mls/hr IV Q24H [facility]; Protocol Last Infusion: 08/17/21 09:10 Dose: Infused Azithromycin (Zithromax/Ns) 500 mg in 250 mls @ 250 mls/hr IV Q24H [facility] Last Admin: 08/17/21 08:38 Dose: 250 mls/hr Dextrose/Sodium Chloride (D5/0.45ns) 1,000 mls @ 50 mls/hr IV DIRECT [facility] Last Admin: 08/17/21 08:39 Dose: 50 mls/hr Levothyroxine Sodium (Levothyroxine 125 Mcg Tab) 125 mcg PO QAM@0600 [facility] Last Admin: 08/17/21 09:09 Dose: Not Given Losartan Potassium (Losartan 50 Mg Tab) 50 mg PO QDAY [facility] Last Admin: 08/17/21 09:09 Dose: Not Given Magnesium Hydroxide (Magnesium Hydroxide (Mom) Oral Liqd Udc) 30 ml PO Q4H PRN PRN Reason: Constipation Ondansetron HCl (Ondansetron 4 Mg/2 Ml Inj) 4 mg IV Q8H PRN PRN Reason: Nausea And Vomiting Sodium Chloride (Sodium Chloride 0.9% 10 Ml Flush Syringe) 10 ml IV BID [facility] Last Admin: 08/17/21 09:09 Dose: 10 ml Sodium Chloride (Sodium Chloride 0.9% 10 Ml Flush Syringe) 10 ml IV PRN PRN PRN Reason: LINE FLUSH Review of Systems ROS unobtainable: due to mental status Physical Examination - Physical Exam Narrative exam: Physical Exam: Constitutional: Awake, confused Head, Ears, Nose: Normocephalic, atraumatic. External ears, nose normal Eyes: Conjunctivae/corneas clear. No icterus. No ptosis. Neck: Supple, no meningeal signs Oral: dentition fair, no thrush Cardiovascular: S1, S2 normal. Respiratory: Good air entry, clear to auscultation bilaterally GI: Soft, non-tender; bowel sounds normal. No peritoneal signs. Musculoskeletal: No pedal edema, no cyanosis. Skin: No rash or abscess Hem/Lymphatic: No palpable cervical or supraclavicular nodes. No lymphangitis Psych: Confused Neurological: Confused awake - Constitutional Vitals: Vital Signs Temp Pulse Resp BP Pulse Ox 102.9 F H 102 H 26 H 201/84 100 08/17/21 07:40 08/17/21 09:00 08/17/21 09:00 08/17/21 09:00 08/17/21 09:00 Temperature -Last 24 Hours Temperature 102.9 F Temperature 98.1 F Results - Labs CBC & Chem 7: 08/17/21 00:33 08/17/21 04:20 Labs: Abnormal lab results 08/17/21 08/17/21 08/17/21 Range/Units 00:33 00:33 02:07 RDW 19.7 H (13.2-15.2) % Lymph % (Auto) 10.5 L (13.4-35.0) % Lymph # (Auto) 1.1 L (1.2-5.4) K/mm3 Seg Neutrophils % 79.1 H (40.0-70.0) % Seg Neutrophils # 8.6 H (1.8-7.7) K/mm3 Sodium 132 L 134 L (137-145) mmol/L Chloride 87.8 L 88.4 L (98-107) mmol/L Carbon Dioxide 21 L (22-30) mmol/L BUN 61 H 61 H (7-17) mg/dL Creatinine 10.1 H 10.3 H (0.6-1.2) mg/dL Glucose 594 H* 533 H* (65-100) mg/dL POC Glucose (70-105) mg/dL Phosphorus (2.5-4.5) mg/dL ALT < 5 L (7-56) units/L Alkaline Phosphatase 182 H (35-129) units/L NT-Pro-B Natriuret Pep 64168 H (0-450) pg/mL TSH (0.270-4.200) mlU/mL Salicylates (2.8-20.0) mg/dL Acetaminophen (10.0-30.0) ug/mL 08/17/21 08/17/21 08/17/21 Range/Units 02:07 02:07 02:07 RDW (13.2-15.2) % Lymph % (Auto) (13.4-35.0) % Lymph # (Auto) (1.2-5.4) K/mm3 Seg Neutrophils % (40.0-70.0) % Seg Neutrophils # (1.8-7.7) K/mm3 Sodium (137-145) mmol/L Chloride (98-107) mmol/L Carbon Dioxide (22-30) mmol/L BUN (7-17) mg/dL Creatinine (0.6-1.2) mg/dL Glucose (65-100) mg/dL POC Glucose (70-105) mg/dL Phosphorus (2.5-4.5) mg/dL ALT (7-56) units/L Alkaline Phosphatase (35-129) units/L NT-Pro-B Natriuret Pep (0-450) pg/mL TSH 5.080 H (0.270-4.200) mlU/mL Salicylates < 0.3 L (2.8-20.0) mg/dL Acetaminophen 5.0 L (10.0-30.0) ug/mL 08/17/21 08/17/21 08/17/21 Range/Units 04:20 04:20 05:09 RDW (13.2-15.2) % Lymph % (Auto) (13.4-35.0) % Lymph # (Auto) (1.2-5.4) K/mm3 Seg Neutrophils % (40.0-70.0) % Seg Neutrophils # (1.8-7.7) K/mm3 Sodium 136 L (137-145) mmol/L Chloride 90.9 L (98-107) mmol/L Carbon Dioxide (22-30) mmol/L BUN 61 H (7-17) mg/dL Creatinine 10.4 H (0.6-1.2) mg/dL Glucose 351 H (65-100) mg/dL POC Glucose 298 H (70-105) mg/dL Phosphorus 6.20 H (2.5-4.5) mg/dL ALT (7-56) units/L Alkaline Phosphatase (35-129) units/L NT-Pro-B Natriuret Pep (0-450) pg/mL TSH (0.270-4.200) mlU/mL Salicylates (2.8-20.0) mg/dL Acetaminophen (10.0-30.0) ug/mL 08/17/21 08/17/21 Range/Units 09:58 10:53 RDW (13.2-15.2) % Lymph % (Auto) (13.4-35.0) % Lymph # (Auto) (1.2-5.4) K/mm3 Seg Neutrophils % (40.0-70.0) % Seg Neutrophils # (1.8-7.7) K/mm3 Sodium (137-145) mmol/L Chloride (98-107) mmol/L Carbon Dioxide (22-30) mmol/L BUN (7-17) mg/dL Creatinine (0.6-1.2) mg/dL Glucose (65-100) mg/dL POC Glucose 139 H 162 H (70-105) mg/dL Phosphorus (2.5-4.5) mg/dL ALT (7-56) units/L Alkaline Phosphatase (35-129) units/L NT-Pro-B Natriuret Pep (0-450) pg/mL TSH (0.270-4.200) mlU/mL Salicylates (2.8-20.0) mg/dL Acetaminophen (10.0-30.0) ug/mL Assessment and Plan Cultures: None A/P: 41-year-old female past medical history CVA, ESRD on HD, diabetes now with: #SIRS versus sepsis: With fevers, tachycardia, tachypnea. Unclear source at present. #DKA: Currently on ICU with insulin drip. #Acute encephalopathy: Possibly secondary to DKA. #ESRD on HD: Renally dose medications Recs: -Check blood cultures. -Start vancomycin empirically as she is HD patient and at risk of bacteremia. -Stopped azithromycin, no evidence of PNA -Continue renally dosed cefepime. Thank you for the consult, we will continue to follow. Cole Tamayo MD [facility] ([facility] O: [phone] F: [phone]
--- NOTE | 2021-08-17 13:08 | Consultation ---
History of Present Illness - Reason for Consult Consult date: 08/17/21 - History of Present Illness The patient is a 41 YO female with known history of DM, HTN, CVA and ESRD on HD(MWF) who was brought into [facility] ED 08/17/21 by family for evaluation of AMS since yesterday. Patient was not able to provide any history and there was no family member at the bedside. Blood glucose was reading high at home. There has been no nausea, vomiting, diarrhea, abdominal pain, chest pain or shortness of breath. Work-up in the ED, blood glucose 533, BUN [address] of the head reveals no acute abnormality. Patient was started on IV fluid & insulin drip and admitted to ICU. Nephrology was consulted for ESRD management. Past History Past Medical History: dialysis, DVT, ESRD, hypertension, migraines, stroke Past Surgical History: No surgical history Social history: no significant social history Family history: diabetes, hypertension Medications and Allergies Allergies Allergy/AdvReac Type Severity Reaction Status Date / Time vancomycin AdvReac Hives Verified 04/02/13 10:16 Home Medications Medication Instructions Recorded Confirmed Last Taken Type Hydralazine HCl [hydrALAZINE] 100 mg PO BID 04/02/13 08/17/21 04/02/13 08:00 History Aspirin/Dipyridamole [Aggrenox] 1 cap PO BID #60 capsule 04/10/13 08/17/21 Unknown Rx Cinacalcet [Sensipar] 60 mg PO QDAY 08/17/21 08/17/21 Unknown History Citalopram [celeXA] 20 mg PO QDAY 08/17/21 08/17/21 Unknown History Ergocalciferol [Vitamin D2] 1 cap PO QWEEK 08/17/21 08/17/21 Unknown History Gabapentin [Neurontin] 100 mg PO Q8HR 08/17/21 08/17/21 Unknown History Insulin Glargine,Hum.rec.anlog 55 unit SQ BID 08/17/21 08/17/21 Unknown History [Lantus Solostar] Promethazine [Phenergan] 25 mg PO Q6HR PRN 08/17/21 08/17/21 Unknown History Sevelamer Carbonate [Renvela] 800 mg PO TIDWM 08/17/21 08/17/21 Unknown History amLODIPine [Norvasc] 10 mg PO DAILY 08/17/21 08/17/21 Unknown History carvediloL [Coreg] 25 mg PO BID 08/17/21 08/17/21 Unknown History cloNIDine [Catapres] 0.2 mg PO BID 08/17/21 08/17/21 Unknown History Active Meds: Active Medications Acetaminophen (Acetaminophen 325 Mg Tab) 650 mg PO Q6H PRN PRN Reason: Pain, Mild (1-3) Acetaminophen (Acetaminophen 650 Mg Rect Supp) 650 mg [place] Q4H PRN PRN Reason: Pain, Mild (1-3) Last Admin: 08/17/21 08:38 Dose: 650 mg Aspirin (Aspirin Ec 325 Mg Tab) 325 mg PO QDAY [facility] Dextrose (Dextrose 50% In Water (25gm) 50 Ml Syringe) 0 ml IV Q30MIN PRN; Protocol PRN Reason: Hypoglycemia Famotidine (Famotidine 20 Mg/2 Ml Inj) 20 mg IV QDAY [facility] Last Admin: 08/17/21 11:40 Dose: 20 mg Heparin Sodium (Porcine) (Heparin 5,000 Unit/1 Ml Vial) 5,000 unit SUB-Q Q8HR [facility] Last Admin: 08/17/21 07:20 Dose: Not Given Heparin Sodium (Porcine) (Heparin 10,000 Units/10 Ml Vial) 3,000 unit IV KATI PRN PRN Reason: hemodialysis Hydralazine HCl (Hydralazine 100 Mg Tab) 100 mg PO TID [facility] Last Admin: 08/17/21 08:31 Dose: Not Given Hydralazine HCl (Hydralazine 20 Mg/1 Ml Inj) 10 mg IV Q4HR PRN PRN Reason: Hypertension Last Admin: 08/17/21 08:43 Dose: 10 mg Hydromorphone HCl (Hydromorphone 0.5 Mg/0.5 Ml Inj) 0.25 mg IV Q4H PRN PRN Reason: Pain, Moderate (4-6) Insulin Human Regular 100 (units/ Sodium Chloride) 100 mls @ 1 mls/hr IV TITR [facility]; Protocol Last Titration: 08/17/21 11:58 Dose: 2 units/hr, 2 mls/hr Sodium Chloride (Nacl 0.9% 1000 Ml) 1,000 mls @ 150 mls/hr IV DIRECT [facility] Last Infusion: 08/17/21 08:40 Dose: 0 mls/hr Sodium Chloride (Nacl 0.9%) 100 mls @ 999 mls/hr IV KATI PRN PRN Reason: Hypotension Cefepime HCl (Cefepime/Ns 2 Gm/100 Ml) 2 gm in 100 mls @ 200 mls/hr IV Q24H [facility]; Protocol Last Infusion: 08/17/21 09:10 Dose: Infused Azithromycin (Zithromax/Ns) 500 mg in 250 mls @ 250 mls/hr IV Q24H [facility] Last Admin: 08/17/21 08:38 Dose: 250 mls/hr Dextrose/Sodium Chloride (D5/0.45ns) 1,000 mls @ 50 mls/hr IV DIRECT [facility] Last Admin: 08/17/21 08:39 Dose: 50 mls/hr Daptomycin 600 mg/ Sodium (Chloride) 100 mls @ 200 mls/hr IV Q48H [facility]; Protocol Levothyroxine Sodium (Levothyroxine 125 Mcg Tab) 125 mcg PO QAM@0600 [facility] Last Admin: 08/17/21 09:09 Dose: Not Given Losartan Potassium (Losartan 50 Mg Tab) 50 mg PO QDAY [facility] Last Admin: 08/17/21 09:09 Dose: Not Given Magnesium Hydroxide (Magnesium Hydroxide (Mom) Oral Liqd Udc) 30 ml PO Q4H PRN PRN Reason: Constipation Ondansetron HCl (Ondansetron 4 Mg/2 Ml Inj) 4 mg IV Q8H PRN PRN Reason: Nausea And Vomiting Sodium Chloride (Sodium Chloride 0.9% 10 Ml Flush Syringe) 10 ml IV BID [facility] Last Admin: 08/17/21 09:09 Dose: 10 ml Sodium Chloride (Sodium Chloride 0.9% 10 Ml Flush Syringe) 10 ml IV PRN PRN PRN Reason: LINE FLUSH Review of Systems ROS unobtainable: due to mental status Exam - Vital Signs Vital signs: Vital Signs Temp Pulse Resp BP Pulse Ox 98.1 F 79 18 181/64 96 08/16/21 22:58 08/16/21 22:58 08/16/21 22:58 08/16/21 22:58 08/16/21 22:58 Results - Lab Results 08/17/21 00:33 08/17/21 17:47 Most recent lab results Calcium 9.1 mg/dL (8.4-10.2) 08/17/21 04:20 Phosphorus 6.20 mg/dL (2.5-4.5) H 08/17/21 04:20 Magnesium 2.20 mg/dL (1.7-2.3) 08/17/21 04:20 Assessment and Plan 1. ESRD: Patient is on maintenance HD, MWF schedule. Last outpatient HD 08/12/21. Meds dosage based on GFR. Hemodialysis: today. 2. FEN: Metabolic acidosis, s/p HD, monitor. UF with HD as tolerated. Monitor lytes and volume status. 3. Diabetic Hyperosmolar State, POA: Insulin gtt. Per protocol. 4. Malfunctioning hemodialysis access: Currently patient dont have a functioning hemodialysis access. Requested ICU for dialysis catheter placement. 5. Acute Metabolic Encephalopathy, POA: 2/[address] head negative. 6. SIRS versus sepsis: Unclear source at present. Abx per ID. 7. HTN: Monitor BP. Subjective: Patient was seen and examined at the bedside. Nurse at the bedside. Examination: General appearance: well-developed, well-nourished, appears stated age, no distress HEENT: ATNC, pupils equal Neck: trachea midline Respiratory: Clear to Auscultation Cardiology: regular, S1S2, no murmur Gastrointestinal: soft, normoactive bowel sounds, not tender, ND Integumentary: no rash Neurologic: stuporous, restrains Ext: no edema noted Hemodialysis access: none
[2021-08-17 15:22] LABS: Calcium 9.2 mg/dL (8.4-10.2)
[2021-08-17 15:26] LABS: Chol/HDL Ratio 4.26 %
[2021-08-17 15:36] LABS: Hepatitis B Surface Antigen Non-Reactive (Negative); Hepatitis C Virus Antibody Non-Reactive (NonReactive)
--- NOTE | 2021-08-17 16:12 | Procedure Note ---
Date of procedure: 08/17/21 Pre-op diagnosis: ESRD Post-op diagnosis: same Procedure: Patient was evaluated and required temporary VasCath placement for Hemodialysis. Telephone consent was obtained from patient's mother, Angely Roman A time-out was completed verifying correct patient, procedure, site, and positioning. Hand hygiene were performed immediately prior to the procedure and sterile technique was used throughout the procedure. The patients right groin was prepped with chlorhexidine scrubs then draped in a sterile fashion. 1% Lidocaine was used to anesthetize the surrounding skin area. Then the right femoral vein was accessed using ultrasound guidance and a 20cm trialysis catheter was introduced using the Seldinger technique. The catheter threaded smoothly over the guidewire and advanced easily into the vein and brisk blood return was observed from each lumen. Each lumen were flushed and clamped, then the catheter was sutured in place, a Biopatch was placed at the insertion site and covered with a sterile dressing. Patient tolerated the procedure well, no signs of any adverse reaction noted. VasCath is ready to use. Total Time Spent with Patient (Minutes): 60 minutes Anesthesia: local Surgeon: ADAM WORKMAN Estimated blood loss: minimal Condition: critical Disposition: ICU
--- NOTE | 2021-08-17 17:31 | Vascular Lab Report ---
DUPLEX DOPPLER LOWER EXTREMITY VEINS, BILATERAL INDICATION / CLINICAL INFORMATION: R/o DVT. TECHNIQUE: Duplex doppler imaging was performed through the veins of both lower extremities using dilip ous compression and other maneuvers. COMPARISON: None available. FINDINGS: RIGHT COMMON FEMORAL VEIN: Negative. RIGHT FEMORAL VEIN: Negative. RIGHT POPLITEAL VEIN: Negative. RIGHT CALF VEINS: Negative. LEFT COMMON FEMORAL VEIN: Negative. LEFT FEMORAL VEIN: Negative. 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 LEFT CALF VEINS: Negative. ADDITIONAL FINDINGS: None. IMPRESSION: 1. No sonographic evidence for acute DVT in either lower extremity. 2. 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 Signer Name: Quinn Alvarenga MD Signed: 08/17/2021 5:26 PM Workstation Name: [id number]
[2021-08-17 18:35] LABS: Calcium 9.1 mg/dL (8.4-10.2)
[2021-08-17 21:31] LABS: Calcium 9.4 mg/dL (8.4-10.2)
[2021-08-17 23:33] LABS: Hematocrit 36.9 % (30.3-42.9); Hemoglobin 11.4 gm/dl (10.1-14.3); Mean Corpuscular HGB Conc 31 % (30-34); Mean Corpuscular Volume 87 fl (79-97); Platelet Count 194 K/mm3 (140-440); Red Blood Count 4.24 M/mm3 (3.65-5.03); Red Cell Distribution Width 19.7 % (13.2-15.2)
[2021-08-17 23:38] LABS: Calcium 9.5 mg/dL (8.4-10.2)
[2021-08-17] MEDS ORDERED: INSULIN GLARGINE 100 UNITS/ML SUB-Q SCH (23:45)
[2021-08-18] MEDS: INSULIN LISPRO 100 UNIT/ML SUB-Q SCH ×5 (01:05→17:06)
[2021-08-18] MEDS: hydrALAZINE 20 MG/1 ML INJ IV PRN ×4 (02:07→19:26)
[2021-08-18 05:16] LABS: Basophils # (Auto) 0.1 K/mm3 (0.0-0.1); Basophils % (Auto) 1.1 % (0.0-1.8); Eosinophils % (Auto) 0.1 % (0.0-4.3); Hemoglobin 10.6 gm/dl (10.1-14.3); Lymphocytes # (Auto) 2.2 K/mm3 (1.2-5.4); Lymphocytes % (Auto) 25.1 % (13.4-35.0); Mean Corpuscular HGB Conc 31 % (30-34); Mean Corpuscular Volume 86 fl (79-97); Monocytes # (Auto) 0.8 K/mm3 (0.0-0.8); Monocytes % (Auto) 9.7 % (0.0-7.3); Platelet Count 177 K/mm3 (140-440); Red Blood Count 3.96 M/mm3 (3.65-5.03); Red Cell Distribution Width 19.7 % (13.2-15.2)
[2021-08-18 05:35] LABS: Calcium 9.5 mg/dL (8.4-10.2)
[2021-08-18] MEDS: LEVOTHYROXINE 125 MCG TAB PO SCH (06:22)
[2021-08-18] MEDS: HEPARIN 5,000 UNIT/1 ML VIAL SUB-Q SCH ×3 (06:26→21:41)
--- NOTE | 2021-08-18 09:27 | Progress Note ---
Assessment and Plan Possible Sepsis- high grade fevers, tachycardia, acute encephalopathy, tachypnea DKA (Diabetic Ketoacidosis) Acute Metabolic Encephalopathy h/o CVA (cerebral infarction) with left-sided deficits End Stage renal Disease(ESRD) on HD HTN (Hypertension) h/o Hypothyroidism -Titrate supplemental oxygen to keep SpO2 89-92% -Aspiration precautions,[employer] to evaluate. If she fails dysphagia screen, place SBFT for oral medications and tube feeding -Supportive HD per Renal -Antibiotics per ID, de-escalate based on culture data and clinical response -Monitor hemodynamics closely -Monitor blood glucose, avoid hypoglycemia -VTE prophylaxis- heparin -Mobility per facility protocol to avoid pressure ulcers - Resume home Synthroid once patient is awake enough to protect airway USS of the lower extremity shows chronic thrombus. She has not been on Coumadin for years. At this time there is no indication fro acute anticoagulation CONDITION: CRITICAL PROGNOSIS: GUARDED CODE STATUS: FULL CODE Discussed care plan with nursing care team, pharmacy and primary service The high probability of a clinically significant, sudden or life threatening deterioration of the [multiple] system(s) required my full and direct attention, intervention and personal management. The aggregate critical care time was [33] minutes. This time is in addition to time spent performing reported procedures but includes the following: [x] Data Review and interpretation [x] Patient assessment and monitoring of vital signs [x] Documentation [x] Medication orders and management Subjective Date of service: 08/18/21 Interval history: Follow up: DKA; acute encephaloapthy Seen adn examined. Vitals, albs, medications, chart reviewed. Discussed with RN- no acute overnight events. AVF not functioning, she required a temporary HD catheter for HD yesterday Remains NPO- aspiration risk Transitioned to subcut insulin therapy Objective Vital Signs - 12hr 08/17/21 08/17/21 08/17/21 21:30 21:41 21:51 Temperature Pulse Rate 89 87 87 Pulse Rate [ From Monitor] Respiratory 19 18 17 Rate Blood Pressure 189/97 189/97 186/87 O2 Sat by Pulse 100 100 100 Oximetry 08/17/21 08/17/21 08/17/21 22:00 22:11 22:21 Temperature Pulse Rate 83 102 H 87 Pulse Rate [ From Monitor] Respiratory 19 19 19 Rate Blood Pressure 171/68 186/87 196/70 O2 Sat by Pulse 100 99 100 Oximetry 08/17/21 08/17/21 08/17/21 22:30 22:41 22:51 Temperature Pulse Rate 88 84 97 H Pulse Rate [ From Monitor] Respiratory 18 19 18 Rate Blood Pressure 186/83 186/83 183/77 O2 Sat by Pulse 100 100 99 Oximetry 08/17/21 08/17/21 08/17/21 23:01 23:11 23:21 Temperature Pulse Rate 91 H 88 84 Pulse Rate [ From Monitor] Respiratory 19 18 18 Rate Blood Pressure 164/69 164/69 188/74 O2 Sat by Pulse 100 99 100 Oximetry 08/17/21 08/17/21 08/17/21 23:30 23:41 23:51 Temperature Pulse Rate 86 85 96 H Pulse Rate [ From Monitor] Respiratory 17 17 15 Rate Blood Pressure 196/80 196/80 185/77 O2 Sat by Pulse 99 100 99 Oximetry 08/18/21 08/18/21 08/18/21 00:00 00:09 00:11 Temperature 100.2 F H Pulse Rate 86 85 85 Pulse Rate [ 86 From Monitor] Respiratory 20 19 20 Rate Blood Pressure 190/85 190/85 190/85 O2 Sat by Pulse 99 99 99 Oximetry 08/18/21 08/18/21 08/18/21 00:21 00:30 00:33 Temperature Pulse Rate 81 86 84 Pulse Rate [ From Monitor] Respiratory 18 20 Rate Blood Pressure 180/81 187/83 187/83 O2 Sat by Pulse 99 99 Oximetry 08/18/21 08/18/21 08/18/21 00:41 00:51 01:00 Temperature Pulse Rate 82 82 82 Pulse Rate [ From Monitor] Respiratory 19 19 18 Rate Blood Pressure 187/83 176/66 187/74 O2 Sat by Pulse 99 99 99 Oximetry 08/18/21 08/18/21 08/18/21 01:11 01:21 01:30 Temperature Pulse Rate 81 81 83 Pulse Rate [ From Monitor] Respiratory 18 19 18 Rate Blood Pressure 187/74 183/73 175/72 O2 Sat by Pulse 99 99 99 Oximetry 08/18/21 08/18/21 08/18/21 01:41 01:51 02:00 Temperature Pulse Rate 82 83 82 Pulse Rate [ From Monitor] Respiratory 17 18 18 Rate Blood Pressure 175/72 173/78 173/72 O2 Sat by Pulse 99 99 99 Oximetry 08/18/21 08/18/21 08/18/21 02:07 02:11 02:21 Temperature Pulse Rate 84 79 79 Pulse Rate [ From Monitor] Respiratory 17 21 Rate Blood Pressure 174/72 173/72 171/72 O2 Sat by Pulse 99 100 Oximetry 08/18/21 08/18/21 08/18/21 02:30 02:41 02:51 Temperature Pulse Rate 78 76 77 Pulse Rate [ From Monitor] Respiratory 20 17 17 Rate Blood Pressure 177/63 177/63 161/66 O2 Sat by Pulse 100 100 100 Oximetry 08/18/21 08/18/21 08/18/21 03:00 03:11 03:21 Temperature Pulse Rate 76 75 73 Pulse Rate [ From Monitor] Respiratory 17 16 16 Rate Blood Pressure 151/64 151/64 155/65 O2 Sat by Pulse 100 100 100 Oximetry 08/18/21 08/18/21 08/18/21 03:30 03:41 03:51 Temperature Pulse Rate 73 73 72 Pulse Rate [ From Monitor] Respiratory 15 14 16 Rate Blood Pressure 145/68 145/68 151/74 O2 Sat by Pulse 99 100 99 Oximetry 08/18/21 08/18/21 08/18/21 04:00 04:11 04:21 Temperature 99.4 F Pulse Rate 71 71 70 Pulse Rate [ 71 From Monitor] Respiratory 15 14 15 Rate Blood Pressure 156/66 156/66 146/72 O2 Sat by Pulse 100 100 100 Oximetry 08/18/21 08/18/21 08/18/21 04:30 04:41 04:51 Temperature Pulse Rate 69 68 69 Pulse Rate [ From Monitor] Respiratory 15 14 15 Rate Blood Pressure 152/71 152/71 158/65 O2 Sat by Pulse 100 100 100 Oximetry 08/18/21 08/18/21 08/18/21 05:00 05:10 05:21 Temperature Pulse Rate 69 69 68 Pulse Rate [ From Monitor] Respiratory 16 15 15 Rate Blood Pressure 156/76 156/76 156/76 O2 Sat by Pulse 100 100 100 Oximetry 08/18/21 08/18/21 08/18/21 05:30 05:41 05:51 Temperature Pulse Rate 67 76 67 Pulse Rate [ From Monitor] Respiratory 14 14 17 Rate Blood Pressure 159/70 159/70 158/71 O2 Sat by Pulse 100 100 100 Oximetry 08/18/21 08/18/21 08/18/21 06:00 06:11 06:21 Temperature Pulse Rate 66 65 76 Pulse Rate [ From Monitor] Respiratory 16 15 18 Rate Blood Pressure 165/64 165/64 167/66 O2 Sat by Pulse 100 100 100 Oximetry 08/18/21 08/18/21 08/18/21 06:31 06:41 06:51 Temperature Pulse Rate 76 76 75 Pulse Rate [ From Monitor] Respiratory 17 18 15 Rate Blood Pressure 155/79 155/79 167/64 O2 Sat by Pulse 100 99 99 Oximetry 08/18/21 08/18/21 07:00 07:11 Temperature Pulse Rate 74 81 Pulse Rate [ From Monitor] Respiratory 18 16 Rate Blood Pressure 160/73 160/73 O2 Sat by Pulse 100 99 Oximetry Constitutional: other (minimally rsponsive, transmitted upper airway sounds, on supplemetnal oxygen) Eyes: non-icteric ENT: oropharynx dry Neck: supple, no lymphadenopathy Effort: mildly labored Ascultation: Bilateral: clear, diminished breath sounds Cardiovascular: regular rate and rhythm, other (S1,S2) Gastrointestinal: normoactive bowel sounds, soft, non-tender, other (obese) Integumentary: normal Extremities: no cyanosis, no edema Neurologic: pupils equal and round, unable to assess (moves all extremities, not obeying commands) Psychiatric: other (Unable to assess mood or affect secondary to mental status) CBC and BMP: 08/19/21 04:37 08/19/21 04:37 ABG, PT/INR, D-dimer: PT/INR, D-dimer PT 13.7 Sec. (12.2-14.9) 08/17/21 02:07 INR 0.95 (0.87-1.13) 08/17/21 02:07 D-Dimer 2695.37 ng/mlDDU (0-234) H 08/17/21 14:40 Abnormal lab findings: Abnormal Labs 08/17/21 08/17/21 08/17/21 00:33 00:33 02:07 MCH RDW 19.7 H Lymph % (Auto) 10.5 L [place] % (Auto) Lymph # (Auto) 1.1 L Seg Neutrophils % 79.1 H Seg Neutrophils # 8.6 H D-Dimer Sodium 132 L 134 L Chloride 87.8 L 88.4 L Carbon Dioxide 21 L BUN 61 H 61 H Creatinine 10.1 H 10.3 H Glucose 594 H* 533 H* POC Glucose Hemoglobin A1c Phosphorus ALT < 5 L Alkaline Phosphatase 182 H NT-Pro-B Natriuret Pep 04565 H HDL Cholesterol TSH Salicylates Acetaminophen 08/17/21 08/17/21 08/17/21 02:07 02:07 02:07 MCH RDW Lymph % (Auto) [place] % (Auto) Lymph # (Auto) Seg Neutrophils % Seg Neutrophils # D-Dimer Sodium Chloride Carbon Dioxide BUN Creatinine Glucose POC Glucose Hemoglobin A1c Phosphorus ALT Alkaline Phosphatase NT-Pro-B Natriuret Pep HDL Cholesterol TSH 5.080 H Salicylates < 0.3 L Acetaminophen 5.0 L 08/17/21 08/17/21 08/17/21 04:20 04:20 05:09 MCH RDW Lymph % (Auto) [place] % (Auto) Lymph # (Auto) Seg Neutrophils % Seg Neutrophils # D-Dimer Sodium 136 L Chloride 90.9 L Carbon Dioxide BUN 61 H Creatinine 10.4 H Glucose 351 H POC Glucose 298 H Hemoglobin A1c Phosphorus 6.20 H ALT Alkaline Phosphatase NT-Pro-B Natriuret Pep HDL Cholesterol TSH Salicylates Acetaminophen 08/17/21 08/17/21 08/17/21 09:58 10:53 13:14 MCH RDW Lymph % (Auto) [place] % (Auto) Lymph # (Auto) Seg Neutrophils % Seg Neutrophils # D-Dimer Sodium Chloride Carbon Dioxide BUN Creatinine Glucose POC Glucose 139 H 162 H 145 H Hemoglobin A1c Phosphorus ALT Alkaline Phosphatase NT-Pro-B Natriuret Pep HDL Cholesterol TSH Salicylates Acetaminophen 08/17/21 08/17/21 08/17/21 14:40 14:40 14:40 MCH RDW Lymph % (Auto) [place] % (Auto) Lymph # (Auto) Seg Neutrophils % Seg Neutrophils # D-Dimer 2695.37 H Sodium Chloride 96.7 L Carbon Dioxide BUN 63 H Creatinine 10.7 H Glucose 145 H POC Glucose Hemoglobin A1c Phosphorus ALT Alkaline Phosphatase NT-Pro-B Natriuret Pep HDL Cholesterol 30 L TSH Salicylates Acetaminophen 08/17/21 08/17/21 08/17/21 14:40 16:45 17:47 MCH RDW Lymph % (Auto) [place] % (Auto) Lymph # (Auto) Seg Neutrophils % Seg Neutrophils # D-Dimer Sodium Chloride 96.2 L Carbon Dioxide BUN 44 H Creatinine 7.2 H Glucose 167 H POC Glucose 136 H 165 H Hemoglobin A1c Phosphorus ALT Alkaline Phosphatase NT-Pro-B Natriuret Pep HDL Cholesterol TSH Salicylates Acetaminophen 08/17/21 08/17/21 08/17/21 18:01 21:01 22:40 MCH RDW Lymph % (Auto) [place] % (Auto) Lymph # (Auto) Seg Neutrophils % Seg Neutrophils # D-Dimer Sodium Chloride 97.1 L 96.4 L Carbon Dioxide BUN 39 H 40 H Creatinine 8.0 H 8.5 H Glucose 122 H 109 H POC Glucose 172 H Hemoglobin A1c Phosphorus ALT Alkaline Phosphatase NT-Pro-B Natriuret Pep HDL Cholesterol TSH Salicylates Acetaminophen 08/17/21 08/18/21 08/18/21 22:40 02:13 04:56 MCH 27 L RDW 19.7 H Lymph % (Auto) [place] % (Auto) Lymph # (Auto) Seg Neutrophils % Seg Neutrophils # D-Dimer Sodium Chloride 96.8 L Carbon Dioxide BUN 44 H Creatinine 9.3 H Glucose 170 H POC Glucose 190 H Hemoglobin A1c Phosphorus 6.70 H ALT Alkaline Phosphatase NT-Pro-B Natriuret Pep HDL Cholesterol TSH Salicylates Acetaminophen 08/18/21 08/18/21 04:56 04:56 MCH 27 L RDW 19.7 H Lymph % (Auto) [place] % (Auto) 9.7 H Lymph # (Auto) Seg Neutrophils % Seg Neutrophils # D-Dimer Sodium Chloride Carbon Dioxide BUN Creatinine Glucose POC Glucose Hemoglobin A1c 10.2 H Phosphorus ALT Alkaline Phosphatase NT-Pro-B Natriuret Pep HDL Cholesterol TSH Salicylates Acetaminophen
[2021-08-18] MEDS: hydrALAZINE 100 MG TAB PO SCH ×3 (09:44→20:00)
[2021-08-18] MEDS: LOSARTAN 50 MG TAB PO SCH (09:44)
[2021-08-18] MEDS: ASPIRIN EC 325 MG TAB PO SCH (09:44)
[2021-08-18] MEDS: FAMOTIDINE 20 MG/2 ML INJ IV SCH (09:49)
[2021-08-18] MEDS: CEFEPIME/NS 2 GM/100 ML 2 GM/100 ML BAG IV SCH (09:49)
[2021-08-18] MEDS ORDERED: SODIUM CHLORIDE 0.9% 100 ML IV PRN (10:08)
--- NOTE | 2021-08-18 10:46 | Progress Note ---
Assessment and Plan Assessment and Plan 41-year-old female with known history of CVA, end-stage renal disease on dialysis on Mondays, Wednesdays and Fridays, diabetes mellitus brought into the emergency room accompanied by family for evaluation of changes in mental status which was said to have started at about 8 PM yesterday. Blood glucose was said to have been checked at home and reading was said to be high. There has been no nausea or vomiting, no diarrhea no complaints of abdominal pain. No chest pain or shortness of breath. Most of the history was obtained from family who was by the bedside as patient is unable to give any history at this time. Patient was said to have missed a dialysis on Sunday because she had not been feeling quite well. Work-up in the emergency room today, labs shows blood glucose of 533, anion gap of 28, BUN of 61 and creatinine of 10.3. CT of the head reveals no acute abnormality. - Patient Problems #Acute encephalopathy -Pt. is with poorly controlled Diabetes -Hx of ESRD on Dialysis -no sedation , -today is unresponsive move R>L with right decrease corneal reflex -legs jerking bilateral -- improved -R/O Seizure-- EEG diffuse slowing and possible PLM -R/O CVA, -MRI brain today is pending -EEG -Seizure precaution -Correct underlying infection/electrolytes abnormalities/Dialysis -started on ASA 325 daily -LDL#69 -Echo cardiogram is pending # DKA (diabetic ketoacidosis) -ketoacidosis without coma -Patient admitted and placed on insulin drip and IV fluid. -Will monitor Accu-Cheks closely. # End stage renal disease on dialysis -Consult will be placed to the manager client service for possible dialysis. -Patient is dialysis on Mondays, Wednesdays and Fridays. # hx of CVA -left side weakness -start on ASA , -Lipid profil -Echo # HTN ,Poorly controlled -201/84 -Control BP<150/85 after review MRI R/O CVA -CT brain is unremarkable # Hypothyroidism -We will continue routine home medications. Monitor TSH. # DVT prophylaxis -Patient placed on subcutaneous heparin. # Full code status -Patient is full code. PLAN 1- EEG is noted diffuse slowing and possible PLM 2- MRI brain today 3-ASA 325 mg daily 4- Dialysis 5- Control BS 6- Control BP will follow Subjective Date of service: 08/18/21 Principal diagnosis: encephalopathy Interval history: still same not follow commands , left side weakness and increase tone , MRI brain today Dialysis BP#160/73 EEG diffuse slowing possible periodic movment . on ASA LDL#69 Echo is pending lipitor 40 mg Objective - Vital Sign Vital Signs - 12hr 08/17/21 08/17/21 08/17/21 22:51 23:01 23:11 Temperature Pulse Rate 97 H 91 H 88 Pulse Rate [ From Monitor] Respiratory 18 19 18 Rate Blood Pressure 183/77 164/69 164/69 O2 Sat by Pulse 99 100 99 Oximetry 08/17/21 08/17/21 08/17/21 23:21 23:30 23:41 Temperature Pulse Rate 84 86 85 Pulse Rate [ From Monitor] Respiratory 18 17 17 Rate Blood Pressure 188/74 196/80 196/80 O2 Sat by Pulse 100 99 100 Oximetry 08/17/21 08/18/21 08/18/21 23:51 00:00 00:09 Temperature 100.2 F H Pulse Rate 96 H 86 85 Pulse Rate [ 86 From Monitor] Respiratory 15 20 19 Rate Blood Pressure 185/77 190/85 190/85 O2 Sat by Pulse 99 99 99 Oximetry 08/18/21 08/18/21 08/18/21 00:11 00:21 00:30 Temperature Pulse Rate 85 81 86 Pulse Rate [ From Monitor] Respiratory 20 18 20 Rate Blood Pressure 190/85 180/81 187/83 O2 Sat by Pulse 99 99 99 Oximetry 08/18/21 08/18/21 08/18/21 00:33 00:41 00:51 Temperature Pulse Rate 84 82 82 Pulse Rate [ From Monitor] Respiratory 19 19 Rate Blood Pressure 187/83 187/83 176/66 O2 Sat by Pulse 99 99 Oximetry 08/18/21 08/18/21 08/18/21 01:00 01:11 01:21 Temperature Pulse Rate 82 81 81 Pulse Rate [ From Monitor] Respiratory 18 18 19 Rate Blood Pressure 187/74 187/74 183/73 O2 Sat by Pulse 99 99 99 Oximetry 08/18/21 08/18/21 08/18/21 01:30 01:41 01:51 Temperature Pulse Rate 83 82 83 Pulse Rate [ From Monitor] Respiratory 18 17 18 Rate Blood Pressure 175/72 175/72 173/78 O2 Sat by Pulse 99 99 99 Oximetry 08/18/21 08/18/21 08/18/21 02:00 02:07 02:11 Temperature Pulse Rate 82 84 79 Pulse Rate [ From Monitor] Respiratory 18 17 Rate Blood Pressure 173/72 174/72 173/72 O2 Sat by Pulse 99 99 Oximetry 08/18/21 08/18/21 08/18/21 02:21 02:30 02:41 Temperature Pulse Rate 79 78 76 Pulse Rate [ From Monitor] Respiratory 21 20 17 Rate Blood Pressure 171/72 177/63 177/63 O2 Sat by Pulse 100 100 100 Oximetry 08/18/21 08/18/21 08/18/21 02:51 03:00 03:11 Temperature Pulse Rate 77 76 75 Pulse Rate [ From Monitor] Respiratory 17 17 16 Rate Blood Pressure 161/66 151/64 151/64 O2 Sat by Pulse 100 100 100 Oximetry 08/18/21 08/18/21 08/18/21 03:21 03:30 03:41 Temperature Pulse Rate 73 73 73 Pulse Rate [ From Monitor] Respiratory 16 15 14 Rate Blood Pressure 155/65 145/68 145/68 O2 Sat by Pulse 100 99 100 Oximetry 08/18/21 08/18/21 08/18/21 03:51 04:00 04:11 Temperature 99.4 F Pulse Rate 72 71 71 Pulse Rate [ 71 From Monitor] Respiratory 16 15 14 Rate Blood Pressure 151/74 156/66 156/66 O2 Sat by Pulse 99 100 100 Oximetry 08/18/21 08/18/21 08/18/21 04:21 04:30 04:41 Temperature Pulse Rate 70 69 68 Pulse Rate [ From Monitor] Respiratory 15 15 14 Rate Blood Pressure 146/72 152/71 152/71 O2 Sat by Pulse 100 100 100 Oximetry 08/18/21 08/18/21 08/18/21 04:51 05:00 05:10 Temperature Pulse Rate 69 69 69 Pulse Rate [ From Monitor] Respiratory 15 16 15 Rate Blood Pressure 158/65 156/76 156/76 O2 Sat by Pulse 100 100 100 Oximetry 08/18/21 08/18/21 08/18/21 05:21 05:30 05:41 Temperature Pulse Rate 68 67 76 Pulse Rate [ From Monitor] Respiratory 15 14 14 Rate Blood Pressure 156/76 159/70 159/70 O2 Sat by Pulse 100 100 100 Oximetry 08/18/21 08/18/21 08/18/21 05:51 06:00 06:11 Temperature Pulse Rate 67 66 65 Pulse Rate [ From Monitor] Respiratory 17 16 15 Rate Blood Pressure 158/71 165/64 165/64 O2 Sat by Pulse 100 100 100 Oximetry 08/18/21 08/18/21 08/18/21 06:21 06:31 06:41 Temperature Pulse Rate 76 76 76 Pulse Rate [ From Monitor] Respiratory 18 17 18 Rate Blood Pressure 167/66 155/79 155/79 O2 Sat by Pulse 100 100 99 Oximetry 08/18/21 08/18/21 08/18/21 06:51 07:00 07:11 Temperature Pulse Rate 75 74 81 Pulse Rate [ From Monitor] Respiratory 15 18 16 Rate Blood Pressure 167/64 160/73 160/73 O2 Sat by Pulse 99 100 99 Oximetry 08/18/21 08/18/21 08/18/21 07:21 07:31 07:41 Temperature Pulse Rate 82 75 68 Pulse Rate [ From Monitor] Respiratory 16 14 17 Rate Blood Pressure 177/72 173/67 173/67 O2 Sat by Pulse 100 99 99 Oximetry 08/18/21 08/18/21 08/18/21 07:51 08:00 08:11 Temperature 97.4 F L Pulse Rate 67 81 85 Pulse Rate [ 81 From Monitor] Respiratory 15 15 17 Rate Blood Pressure 155/62 159/93 159/93 O2 Sat by Pulse 100 100 99 Oximetry 08/18/21 08/18/21 08/18/21 08:21 08:30 08:41 Temperature Pulse Rate 75 66 78 Pulse Rate [ From Monitor] Respiratory 17 18 17 Rate Blood Pressure 148/121 166/56 166/56 O2 Sat by Pulse 99 97 99 Oximetry 08/18/21 08/18/21 08/18/21 08:51 09:01 09:11 Temperature Pulse Rate 66 76 66 Pulse Rate [ From Monitor] Respiratory 17 24 18 Rate Blood Pressure 157/60 156/65 156/65 O2 Sat by Pulse 96 99 96 Oximetry 08/18/21 08/18/21 08/18/21 09:21 09:30 09:41 Temperature Pulse Rate 73 63 75 Pulse Rate [ From Monitor] Respiratory 18 16 12 Rate Blood Pressure 168/63 155/59 155/59 O2 Sat by Pulse 96 96 100 Oximetry 08/18/21 08/18/21 09:51 10:00 Temperature Pulse Rate 72 66 Pulse Rate [ From Monitor] Respiratory 16 16 Rate Blood Pressure 150/58 174/63 O2 Sat by Pulse 98 96 Oximetry - General Apperance Constitutional: comfortable - EENT EENT: PERRL, mucous membranes moist - Respiratory Respiratory: lungs clear, rhonchi - Cardiovascular Cardiovascular: regular rate, normal S1, normal S2 Extremities: no peripheral edema bilat - Gastrointestinal Gastrointestinal: normoactive bowel sounds - Integumentary Integumentary: normal - Neurologic Cranial nerve examination: other (eyes deviated to left ,pupil reactive, left facial droop, not follow commands) Detailed motor examination: other (Increase tone left upper and lower findings is suggestive on Remote CVA, move right to pain stimulation) - Psychiatric Psychiatric: other (not follow commands , move right side to pain stimuli) - Laboratory Findings CBC and BMP: 08/18/21 04:56 08/18/21 04:56 Abnormal Lab Findings: Abnormal Labs 08/17/21 08/17/21 08/17/21 00:33 00:33 02:07 MCH RDW 19.7 H Lymph % (Auto) 10.5 L [place] % (Auto) Lymph # (Auto) 1.1 L Seg Neutrophils % 79.1 H Seg Neutrophils # 8.6 H D-Dimer Sodium 132 L 134 L Chloride 87.8 L 88.4 L Carbon Dioxide 21 L BUN 61 H 61 H Creatinine 10.1 H 10.3 H Glucose 594 H* 533 H* POC Glucose Hemoglobin A1c Phosphorus ALT < 5 L Alkaline Phosphatase 182 H NT-Pro-B Natriuret Pep 37269 H HDL Cholesterol TSH Salicylates Acetaminophen 08/17/21 08/17/21 08/17/21 02:07 02:07 02:07 MCH RDW Lymph % (Auto) [place] % (Auto) Lymph # (Auto) Seg Neutrophils % Seg Neutrophils # D-Dimer Sodium Chloride Carbon Dioxide BUN Creatinine Glucose POC Glucose Hemoglobin A1c Phosphorus ALT Alkaline Phosphatase NT-Pro-B Natriuret Pep HDL Cholesterol TSH 5.080 H Salicylates < 0.3 L Acetaminophen 5.0 L 08/17/21 08/17/21 08/17/21 04:20 04:20 05:09 MCH RDW Lymph % (Auto) [place] % (Auto) Lymph # (Auto) Seg Neutrophils % Seg Neutrophils # D-Dimer Sodium 136 L Chloride 90.9 L Carbon Dioxide BUN 61 H Creatinine 10.4 H Glucose 351 H POC Glucose 298 H Hemoglobin A1c Phosphorus 6.20 H ALT Alkaline Phosphatase NT-Pro-B Natriuret Pep HDL Cholesterol TSH Salicylates Acetaminophen 08/17/21 08/17/21 08/17/21 09:58 10:53 13:14 MCH RDW Lymph % (Auto) [place] % (Auto) Lymph # (Auto) Seg Neutrophils % Seg Neutrophils # D-Dimer Sodium Chloride Carbon Dioxide BUN Creatinine Glucose POC Glucose 139 H 162 H 145 H Hemoglobin A1c Phosphorus ALT Alkaline Phosphatase NT-Pro-B Natriuret Pep HDL Cholesterol TSH Salicylates Acetaminophen 08/17/21 08/17/21 08/17/21 14:40 14:40 14:40 MCH RDW Lymph % (Auto) [place] % (Auto) Lymph # (Auto) Seg Neutrophils % Seg Neutrophils # D-Dimer 2695.37 H Sodium Chloride 96.7 L Carbon Dioxide BUN 63 H Creatinine 10.7 H Glucose 145 H POC Glucose Hemoglobin A1c Phosphorus ALT Alkaline Phosphatase NT-Pro-B Natriuret Pep HDL Cholesterol 30 L TSH Salicylates Acetaminophen 08/17/21 08/17/21 08/17/21 14:40 16:45 17:47 MCH RDW Lymph % (Auto) [place] % (Auto) Lymph # (Auto) Seg Neutrophils % Seg Neutrophils # D-Dimer Sodium Chloride 96.2 L Carbon Dioxide BUN 44 H Creatinine 7.2 H Glucose 167 H POC Glucose 136 H 165 H Hemoglobin A1c Phosphorus ALT Alkaline Phosphatase NT-Pro-B Natriuret Pep HDL Cholesterol TSH Salicylates Acetaminophen 08/17/21 08/17/21 08/17/21 18:01 21:01 22:40 MCH RDW Lymph % (Auto) [place] % (Auto) Lymph # (Auto) Seg Neutrophils % Seg Neutrophils # D-Dimer Sodium Chloride 97.1 L 96.4 L Carbon Dioxide BUN 39 H 40 H Creatinine 8.0 H 8.5 H Glucose 122 H 109 H POC Glucose 172 H Hemoglobin A1c Phosphorus ALT Alkaline Phosphatase NT-Pro-B Natriuret Pep HDL Cholesterol TSH Salicylates Acetaminophen 08/17/21 08/18/21 08/18/21 22:40 02:13 04:56 MCH 27 L RDW 19.7 H Lymph % (Auto) [place] % (Auto) Lymph # (Auto) Seg Neutrophils % Seg Neutrophils # D-Dimer Sodium Chloride 96.8 L Carbon Dioxide BUN 44 H Creatinine 9.3 H Glucose 170 H POC Glucose 190 H Hemoglobin A1c Phosphorus 6.70 H ALT Alkaline Phosphatase NT-Pro-B Natriuret Pep HDL Cholesterol TSH Salicylates Acetaminophen 08/18/21 08/18/21 04:56 04:56 MCH 27 L RDW 19.7 H Lymph % (Auto) [place] % (Auto) 9.7 H Lymph # (Auto) Seg Neutrophils % Seg Neutrophils # D-Dimer Sodium Chloride Carbon Dioxide BUN Creatinine Glucose POC Glucose Hemoglobin A1c 10.2 H Phosphorus ALT Alkaline Phosphatase NT-Pro-B Natriuret Pep HDL Cholesterol TSH Salicylates Acetaminophen
[2021-08-18] MEDS ORDERED: LORazepam 2 MG/ML VIAL IV ONE (11:01)
--- NOTE | 2021-08-18 11:40 | Progress Note ---
Assessment and Plan 1. ESRD: Patient is on maintenance HD, MWF schedule. Last outpatient HD 08/12/21. Meds dosage based on GFR. Hemodialysis: 08/17. 2. FEN: Metabolic acidosis, s/p HD, monitor. UF with HD as tolerated. Monitor lytes and volume status. 3. Diabetic Hyperosmolar State, POA: S/p Insulin gtt. Per protocol. 4. Malfunctioning hemodialysis access: Patient presented with no functioning hemodialysis access. S/p R femoral non-tunnel catheter. 5. Acute Metabolic Encephalopathy, POA: 2/[address] head negative. 6. SIRS versus sepsis: Unclear source at present. Abx per ID. 7. HTN: Monitor BP. Subjective: Patient was seen and examined at the bedside. Nurse at the bedside. Examination: General appearance: well-developed, well-nourished, appears stated age, no distress HEENT: ATNC, pupils equal Neck: trachea midline Respiratory: Clear to Auscultation Cardiology: regular, S1S2, no murmur Gastrointestinal: soft, normoactive bowel sounds, not tender, ND Integumentary: no rash Neurologic: stuporous, restrains Ext: no edema noted Hemodialysis access: R femoral non-tunnel catheter Subjective Date of service: 08/18/21 Principal diagnosis: encephalopathy Objective - Vital Signs Vital signs: Vital Signs - 12hr 08/17/21 08/17/21 08/18/21 23:41 23:51 00:00 Temperature 100.2 F H Pulse Rate 85 96 H 86 Pulse Rate [ 86 From Monitor] Respiratory 17 15 20 Rate Blood Pressure 196/80 185/77 190/85 O2 Sat by Pulse 100 99 99 Oximetry 08/18/21 08/18/21 08/18/21 00:09 00:11 00:21 Temperature Pulse Rate 85 85 81 Pulse Rate [ From Monitor] Respiratory 19 20 18 Rate Blood Pressure 190/85 190/85 180/81 O2 Sat by Pulse 99 99 99 Oximetry 08/18/21 08/18/21 08/18/21 00:30 00:33 00:41 Temperature Pulse Rate 86 84 82 Pulse Rate [ From Monitor] Respiratory 20 19 Rate Blood Pressure 187/83 187/83 187/83 O2 Sat by Pulse 99 99 Oximetry 08/18/21 08/18/21 08/18/21 00:51 01:00 01:11 Temperature Pulse Rate 82 82 81 Pulse Rate [ From Monitor] Respiratory 19 18 18 Rate Blood Pressure 176/66 187/74 187/74 O2 Sat by Pulse 99 99 99 Oximetry 08/18/21 08/18/21 08/18/21 01:21 01:30 01:41 Temperature Pulse Rate 81 83 82 Pulse Rate [ From Monitor] Respiratory 19 18 17 Rate Blood Pressure 183/73 175/72 175/72 O2 Sat by Pulse 99 99 99 Oximetry 08/18/21 08/18/21 08/18/21 01:51 02:00 02:07 Temperature Pulse Rate 83 82 84 Pulse Rate [ From Monitor] Respiratory 18 18 Rate Blood Pressure 173/78 173/72 174/72 O2 Sat by Pulse 99 99 Oximetry 08/18/21 08/18/21 08/18/21 02:11 02:21 02:30 Temperature Pulse Rate 79 79 78 Pulse Rate [ From Monitor] Respiratory 17 21 20 Rate Blood Pressure 173/72 171/72 177/63 O2 Sat by Pulse 99 100 100 Oximetry 08/18/21 08/18/21 08/18/21 02:41 02:51 03:00 Temperature Pulse Rate 76 77 76 Pulse Rate [ From Monitor] Respiratory 17 17 17 Rate Blood Pressure 177/63 161/66 151/64 O2 Sat by Pulse 100 100 100 Oximetry 08/18/21 08/18/21 08/18/21 03:11 03:21 03:30 Temperature Pulse Rate 75 73 73 Pulse Rate [ From Monitor] Respiratory 16 16 15 Rate Blood Pressure 151/64 155/65 145/68 O2 Sat by Pulse 100 100 99 Oximetry 08/18/21 08/18/21 08/18/21 03:41 03:51 04:00 Temperature 99.4 F Pulse Rate 73 72 71 Pulse Rate [ 71 From Monitor] Respiratory 14 16 15 Rate Blood Pressure 145/68 151/74 156/66 O2 Sat by Pulse 100 99 100 Oximetry 08/18/21 08/18/21 08/18/21 04:11 04:21 04:30 Temperature Pulse Rate 71 70 69 Pulse Rate [ From Monitor] Respiratory 14 15 15 Rate Blood Pressure 156/66 146/72 152/71 O2 Sat by Pulse 100 100 100 Oximetry 08/18/21 08/18/21 08/18/21 04:41 04:51 05:00 Temperature Pulse Rate 68 69 69 Pulse Rate [ From Monitor] Respiratory 14 15 16 Rate Blood Pressure 152/71 158/65 156/76 O2 Sat by Pulse 100 100 100 Oximetry 08/18/21 08/18/21 08/18/21 05:10 05:21 05:30 Temperature Pulse Rate 69 68 67 Pulse Rate [ From Monitor] Respiratory 15 15 14 Rate Blood Pressure 156/76 156/76 159/70 O2 Sat by Pulse 100 100 100 Oximetry 08/18/21 08/18/21 08/18/21 05:41 05:51 06:00 Temperature Pulse Rate 76 67 66 Pulse Rate [ From Monitor] Respiratory 14 17 16 Rate Blood Pressure 159/70 158/71 165/64 O2 Sat by Pulse 100 100 100 Oximetry 08/18/21 08/18/21 08/18/21 06:11 06:21 06:31 Temperature Pulse Rate 65 76 76 Pulse Rate [ From Monitor] Respiratory 15 18 17 Rate Blood Pressure 165/64 167/66 155/79 O2 Sat by Pulse 100 100 100 Oximetry 08/18/21 08/18/21 08/18/21 06:41 06:51 07:00 Temperature Pulse Rate 76 75 74 Pulse Rate [ From Monitor] Respiratory 18 15 18 Rate Blood Pressure 155/79 167/64 160/73 O2 Sat by Pulse 99 99 100 Oximetry 08/18/21 08/18/21 08/18/21 07:11 07:21 07:31 Temperature Pulse Rate 81 82 75 Pulse Rate [ From Monitor] Respiratory 16 16 14 Rate Blood Pressure 160/73 177/72 173/67 O2 Sat by Pulse 99 100 99 Oximetry 08/18/21 08/18/21 08/18/21 07:41 07:51 08:00 Temperature 97.4 F L Pulse Rate 68 67 81 Pulse Rate [ 81 From Monitor] Respiratory 17 15 15 Rate Blood Pressure 173/67 155/62 159/93 O2 Sat by Pulse 99 100 100 Oximetry 08/18/21 08/18/21 08/18/21 08:11 08:21 08:30 Temperature Pulse Rate 85 75 66 Pulse Rate [ From Monitor] Respiratory 17 17 18 Rate Blood Pressure 159/93 148/121 166/56 O2 Sat by Pulse 99 99 97 Oximetry 08/18/21 08/18/21 08/18/21 08:41 08:51 09:01 Temperature Pulse Rate 78 66 76 Pulse Rate [ From Monitor] Respiratory 17 17 24 Rate Blood Pressure 166/56 157/60 156/65 O2 Sat by Pulse 99 96 99 Oximetry 08/18/21 08/18/21 08/18/21 09:11 09:21 09:30 Temperature Pulse Rate 66 73 63 Pulse Rate [ From Monitor] Respiratory 18 18 16 Rate Blood Pressure 156/65 168/63 155/59 O2 Sat by Pulse 96 96 96 Oximetry 08/18/21 08/18/21 08/18/21 09:41 09:51 10:00 Temperature Pulse Rate 75 72 66 Pulse Rate [ From Monitor] Respiratory 12 16 16 Rate Blood Pressure 155/59 150/58 174/63 O2 Sat by Pulse 100 98 96 Oximetry 08/18/21 10:41 Temperature Pulse Rate 74 Pulse Rate [ From Monitor] Respiratory Rate Blood Pressure 165/62 O2 Sat by Pulse Oximetry - Lab 08/18/21 04:56 08/18/21 04:56 Most recent lab results Calcium 9.5 mg/dL (8.4-10.2) 08/18/21 04:56 Phosphorus 6.70 mg/dL (2.5-4.5) H 08/18/21 04:56 Magnesium 1.90 mg/dL (1.7-2.3) 08/18/21 04:56 Medications & Allergies - Medications Allergies/Adverse Reactions: Allergies vancomycin Adverse Reaction (Verified 04/02/13 10:16) Hives Home Medications: Home Medications Medication Instructions Recorded Confirmed Last Taken Type Hydralazine HCl [hydrALAZINE] 100 mg PO BID 04/02/13 08/17/21 04/02/13 08:00 History Aspirin/Dipyridamole [Aggrenox] 1 cap PO BID #60 capsule 04/10/13 08/17/21 Unknown Rx Cinacalcet [Sensipar] 60 mg PO QDAY 08/17/21 08/17/21 Unknown History Citalopram [celeXA] 20 mg PO QDAY 08/17/21 08/17/21 Unknown History Ergocalciferol [Vitamin D2] 1 cap PO QWEEK 08/17/21 08/17/21 Unknown History Gabapentin [Neurontin] 100 mg PO Q8HR 08/17/21 08/17/21 Unknown History Insulin Glargine,Hum.rec.anlog 55 unit SQ BID 08/17/21 08/17/21 Unknown History [Lantus Solostar] Promethazine [Phenergan] 25 mg PO Q6HR PRN 08/17/21 08/17/21 Unknown History Sevelamer Carbonate [Renvela] 800 mg PO TIDWM 08/17/21 08/17/21 Unknown History amLODIPine [Norvasc] 10 mg PO DAILY 08/17/21 08/17/21 Unknown History carvediloL [Coreg] 25 mg PO BID 08/17/21 08/17/21 Unknown History cloNIDine [Catapres] 0.2 mg PO BID 08/17/21 08/17/21 Unknown History Active Medications: Generic Name Dose Route Start Last Admin Trade Name Freq PRN Reason Stop Dose Admin Acetaminophen 650 mg 08/17/21 07:50 Acetaminophen 325 Mg Tab PO Q6H PRN Pain, Mild (1-3) Acetaminophen 650 mg 08/17/21 08:17 08/17/21 14:49 Acetaminophen 650 Mg Rect Supp AL 650 mg Q4H PRN Administration Pain, Mild (1-3) Aspirin 325 mg 08/18/21 10:00 08/18/21 09:44 Aspirin Ec 325 Mg Tab PO Not Given QDAY HAM Dextrose 50 ml 08/17/21 23:37 Dextrose 50% In Water (25gm) 50 Ml Syringe IV Q30MIN PRN Hypoglycemia Protocol Famotidine 20 mg 08/17/21 10:00 08/18/21 09:49 Famotidine 20 Mg/2 Ml Inj IV 20 mg QDAY HAM Administration Heparin Sodium (Porcine) 5,000 unit 08/17/21 06:00 08/18/21 06:26 Heparin 5,000 Unit/1 Ml Vial SUB-Q 5,000 unit Q8HR HAM Administration Heparin Sodium (Porcine) 3,000 unit 08/17/21 07:41 Heparin 10,000 Units/10 Ml Vial IV KATI PRN hemodialysis Hydralazine HCl 100 mg 08/17/21 09:00 08/18/21 09:44 Hydralazine 100 Mg Tab PO Not Given TID HAM Hydralazine HCl 10 mg 08/17/21 07:56 08/18/21 10:41 Hydralazine 20 Mg/1 Ml Inj IV 10 mg Q4HR PRN Administration Hypertension Hydromorphone HCl 0.25 mg 08/17/21 07:50 Hydromorphone 0.5 Mg/0.5 Ml Inj IV Q4H PRN Pain, Moderate (4-6) Daptomycin 500 mg/ Sodium 100 mls @ 200 mls/hr 08/17/21 15:00 08/17/21 14:47 Chloride IV 200 mls/hr Q48H [facility]AM Administration Protocol Sodium Chloride 100 mls @ 999 mls/hr 08/18/21 10:08 Nacl 0.9% IV KATI PRN Hypotension Cefepime HCl 1 gm in 100 mls @ 200 mls/hr 08/19/21 18:00 Cefepime/Ns 1 Gm/100 Ml IV QPM [facility] Protocol Insulin Glargine 10 units 08/18/21 22:00 Insulin Glargine 100 Units/Ml SUB-Q QHS [facility] Insulin Human Lispro 0 unit 08/18/21 00:00 08/18/21 06:26 Insulin Lispro 100 Unit/Ml SUB-Q 2 unit Q6HR [facility] Administration Protocol Levothyroxine Sodium 125 mcg 08/17/21 10:00 08/18/21 06:22 Levothyroxine 125 Mcg Tab PO Not Given QAM@0600 [facility] Losartan Potassium 50 mg 08/17/21 10:00 08/18/21 09:44 Losartan 50 Mg Tab PO Not Given QDAY [facility] Magnesium Hydroxide 30 ml 08/17/21 04:09 Magnesium Hydroxide (Mom) Oral Liqd Udc PO Q4H PRN Constipation Ondansetron HCl 4 mg 08/17/21 04:09 Ondansetron 4 Mg/2 Ml Inj IV Q8H PRN Nausea And Vomiting Sodium Chloride 10 ml 08/17/21 10:00 08/18/21 09:49 Sodium Chloride 0.9% 10 Ml Flush Syringe IV 10 ml BID [facility] Administration Sodium Chloride 10 ml 08/17/21 04:09 Sodium Chloride 0.9% 10 Ml Flush Syringe IV PRN PRN LINE FLUSH
--- NOTE | 2021-08-18 13:11 | Magnetic Resonance Report ---
MR brain wo con INDICATION / CLINICAL INFORMATION: CVA. TECHNIQUE: Multiplanar, multisequence MR images of the brain were obtained. COMPARISON: 08/17/2021 FINDINGS: INTRACRANIAL: Encephalomalacia in the right coronary radiata and putamen and also in the right fronta l gyrus. Wallerian degeneration which extends into the right tristan cerebri and denise. Remote lacunar in farction seen within the left gallo radiata. No restricted diffusion. No hemorrhage. Ventricular leela iber is normal. No extra-axial collection. No mass. No herniation. Major intracranial vascular flow voids are preserved. ORBITS: No significant abnormality of visualized orbits. SINUSES / MASTOIDS: No significant abnormality of visualized sinuses and mastoid air cells. ADDITIONAL FINDINGS: None. IMPRESSION: 1. No acute findings. 2. 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 3. Remote left gallo radiata lacunar infarction. Signer Name: Leroy Galaviz MD Signed: 08/18/2021 1:07 PM Workstation Name: [id number]
--- NOTE | 2021-08-18 13:47 | Progress Note ---
<ADAM WORKMAN - Last Filed: 08/18/21 17:31> Assessment and Plan Assessment and plan: This is a 41 year-old female with known past medical history of CVA, DVT, HTM, ESRD on HD(MWF), and type 2 diabetes mellitus admitted for DKA Hospital Course to Date: 08/17: Patient seen and examined at the bedside. Patient remains and obtunded, only arousable with stimuli. CT head noted with no acute abnormality. Neurology consulted. On 2L NC and able to protect her airway. Patient remains on insulin gtt per DKA protocol, BG is improving and anion gap most likely due to ESRD. Plan for HD today per Nephro, possible transition to subQ insulin post HD treatment. Patient is also febrile this am, VSS. Orders placed for blood cultures, empiric IV abx was initiated and ID was consulted. 08/18: Stable on RA this am. Awake and tracking, but not following commands. MRI brain pending, Neurology is also following. Transitioned to subQ insulin overnight, patient remains NPO due to mental status. PT/OT/Speech ordered. Patient RUE fistula clotted, Temp. Vascath inserted for HD. Vascular Surgery consulted for AVF eval and treat. BLE doppler noted. Per patient mother patient has not been on coumadin for a couple years, she was only on ASA. Patient might benefit from PO AC at discharge. Continue VTE proph, Heparin subq for now. Assessment and Plan #DKA (Diabetic Ketoacidosis) - Presented with elevated BG and anion gap metabolic acidosis - S/p DKA protocol - Transitioned to SubQ insulin overnight - Continue SSI and BG Q6hrs since NPO - Lantus Qhs - Monitor and replace electrolytes as needed - Avoid Hypoglycemia #Possible Sepsis - High fevers this am, VSS, WBCs wnr - HD patient with AV-fistula, and h/o longterm permacath which was removed a week ago - blood cultures with NGTD - Empiric IV abx initiated - ID on consult, appreciated recommendations - Continue to F/U on B.cultures - Daily CBC monitor #End Stage renal Disease(ESRD) on HD - Nephrology on consult, appreciated recommendation - RUE AV-Fistula clotted, Temporary Vascath inserted - Continue HD per Nephro - Strict intake and output, patient is anuric - Avoid nephrotoxic medications; Renally dose medications - Monitor and replace electrolytes as needed - Vascular Surgery consulted for AVF eval and treat #Acute Metabolic Encephalopathy #H/o CVA (cerebral infarction) with left-sided deficits - Multifactorial, DKA vs azotemia vs infectious process - Awake and tracking, not following commands - CT head noted with mo acute abnormality - S/p DKA protocol, HD per Nephro, and on IV abx - MRI brain pending - Fall and safety precaution - Aspiration precaution - Frequent reorientation - Avoid benzodiazepine to reduce the possibility of delirium - Maintenance of sleep-wake cycle - PT/OT/Speech ordered #HTN (Hypertension) - Hypertensive this am, patient unable to take PO meds due to alerted mentation - PO antihypertensives held - PRN Hydralazine and Labetalol for SBP greater than 160 - Continue blood pressure monitor per protocol #Elevated D-Dimer #RUE AV fistula Clotted #H/o DVT - BLE doppler showed no evidence for acute DVT in either lower extremity. 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 - Per patient's mother, patient has been off coumadin for a couple of years - Continue Heparin SubQ - Patient might benefit from PO AC at discharge #Hypothyroidism - Resume home synthroid #GI/ DVT Prophylaxis - PPI- Pepcid - Heparin SubQ - SCDs to bilateral lower extremities while in bed #Advance care planning - Disease education data, care plan, diagnoses, and prognosis were discussed with patient's mother-Angely Roman # . Patient is full code. Patient family knowledges understanding and agreement with care plan. The high probability of a clinically significant, sudden or life threatening deterioration of the [multiple] system(s) required my full and direct attention, intervention and personal management. The aggregate critical care time was [60] minutes. This time is in addition to time spent performing reported procedures but includes the following: [x] Data Review and interpretation [x] Patient assessment and monitoring of vital signs [x] Documentation [x] Medication orders and management Disposition Plan: ICU Total Time Spent with Patient (Minutes): 60 History Interval history: Patient seen and examined at the bedside. On RA this morning. Awake, open eyes spontaneously, but does not track, not following any commands. Transition to subQ insulin overnight. TYSHAWN overnight Hospitalist Physical - Constitutional Vitals: Temp Pulse Resp BP Pulse Ox 98.8 F 69 15 157/58 98 08/18/21 12:00 08/18/21 13:00 08/18/21 13:00 08/18/21 13:00 08/18/21 13:00 General appearance: Present: no acute distress, well-nourished, obese - EENT Eyes: Present: PERRL - Neck Neck: Present: normal ROM - Respiratory Respiratory effort: normal Respiratory: bilateral: diminished - Cardiovascular Rhythm: regular Heart Sounds: Present: S1 & S2 - Extremities Extremities: no ischemia, pulses intact, pulses symmetrical Peripheral Pulses: within normal limits - Abdominal General gastrointestinal: soft, non-distended, normal bowel sounds - Integumentary Integumentary: Present: warm, dry - Psychiatric Psychiatric: other (Awake, but not following commands) - Neurologic Neurologic: moves all extremities (Left-sided weakness), other (Awake, tracking but not following commands) - Allied Health Allied health notes reviewed: nursing, case management Results - Labs CBC & Chem 7: 08/18/21 04:56 08/18/21 04:56 Labs: Laboratory Last Values WBC 8.6 K/mm3 (4.5-11.0) 08/18/21 04:56 RBC 3.96 M/mm3 (3.65-5.03) 08/18/21 04:56 Hgb 10.6 gm/dl (10.1-14.3) 08/18/21 04:56 Hct 34.0 % (30.3-42.9) 08/18/21 04:56 MCV 86 fl (79-97) 08/18/21 04:56 MCH 27 pg (28-32) L 08/18/21 04:56 MCHC 31 % (30-34) 08/18/21 04:56 RDW 19.7 % (13.2-15.2) H 08/18/21 04:56 Plt Count 177 K/mm3 (140-440) 08/18/21 04:56 Lymph % (Auto) 25.1 % (13.4-35.0) 08/18/21 04:56 [place] % (Auto) 9.7 % (0.0-7.3) H 08/18/21 04:56 Eos % (Auto) 0.1 % (0.0-4.3) 08/18/21 04:56 Baso % (Auto) 1.1 % (0.0-1.8) 08/18/21 04:56 Lymph # (Auto) 2.2 K/mm3 (1.2-5.4) 08/18/21 04:56 [place] # (Auto) 0.8 K/mm3 (0.0-0.8) 08/18/21 04:56 Eos # (Auto) 0.0 K/mm3 (0.0-0.4) 08/18/21 04:56 Baso # (Auto) 0.1 K/mm3 (0.0-0.1) 08/18/21 04:56 Seg Neutrophils % 64.0 % (40.0-70.0) 08/18/21 04:56 Seg Neutrophils # 5.5 K/mm3 (1.8-7.7) 08/18/21 04:56 PT 13.7 Sec. (12.2-14.9) 08/17/21 02:07 INR 0.95 (0.87-1.13) 08/17/21 02:07 APTT 26.8 Sec. (24.2-36.6) 08/17/21 02:07 D-Dimer 2695.37 ng/mlDDU (0-234) H 08/17/21 14:40 Sodium 138 mmol/L (137-145) 08/18/21 04:56 Potassium 3.8 mmol/L (3.6-5.0) 08/18/21 04:56 Chloride 96.8 mmol/L (98-107) L 08/18/21 04:56 Carbon Dioxide 23 mmol/L (22-30) 08/18/21 04:56 Anion Gap 22 mmol/L 08/18/21 04:56 BUN 44 mg/dL (7-17) H 08/18/21 04:56 Creatinine 9.3 mg/dL (0.6-1.2) H 08/18/21 04:56 Estimated GFR 6 ml/min 08/18/21 04:56 BUN/Creatinine Ratio 5 % 08/18/21 04:56 Glucose 170 mg/dL (65-100) H 08/18/21 04:56 POC Glucose 190 mg/dL (70-105) H 08/18/21 02:13 Hemoglobin A1c 10.2 % (4-6) H 08/18/21 04:56 Lactic Acid 1.70 mmol/L (0.7-2.0) 08/17/21 02:07 Calcium 9.5 mg/dL (8.4-10.2) 08/18/21 04:56 Phosphorus 6.70 mg/dL (2.5-4.5) H 08/18/21 04:56 Magnesium 1.90 mg/dL (1.7-2.3) 08/18/21 04:56 Total Bilirubin 0.40 mg/dL (0.1-1.2) 08/17/21 02:07 AST 11 units/L (5-40) 08/17/21 02:07 ALT < 5 units/L (7-56) L 08/17/21 02:07 Alkaline Phosphatase 182 units/L (35-129) H 08/17/21 02:07 NT-Pro-B Natriuret Pep 71423 pg/mL (0-450) H 08/17/21 02:07 Total Protein 7.8 g/dL (6.3-8.2) 08/17/21 02:07 Albumin 3.9 g/dL (3.9-5) 08/17/21 02:07 Albumin/Globulin Ratio 1.0 % 08/17/21 02:07 Triglycerides 128 mg/dL (2-149) 08/17/21 14:40 Cholesterol 128 mg/dL (50-199) 08/17/21 14:40 LDL Cholesterol Direct 69 mg/dL (50-130) 08/17/21 14:40 HDL Cholesterol 30 mg/dL (40-59) L 08/17/21 14:40 Cholesterol/HDL Ratio 4.26 % 08/17/21 14:40 TSH 5.080 mlU/mL (0.270-4.200) H 08/17/21 02:07 Salicylates < 0.3 mg/dL (2.8-20.0) L 08/17/21 02:07 Acetaminophen 5.0 ug/mL (10.0-30.0) L 08/17/21 02:07 Plasma/Serum Alcohol < 0.01 % (0-0.07) 08/17/21 02:07 SARS-CoV-2 (PCR) Negative (Negative) 08/17/21 09:12 Hepatitis A IgM Ab Non-reactive (NonReactive) 08/17/21 14:40 Hep Bs Antigen Non-reactive (Negative) 08/17/21 14:40 Hep B Core IgM Ab Non-reactive (NonReactive) 08/17/21 14:40 Hepatitis C Antibody Non-reactive (NonReactive) 08/17/21 14:40 Blood Type O POSITIVE 08/17/21 17:43 Antibody Screen Negative 08/17/21 17:43 Microbiology: Microbiology 08/17/21 17:47 Peripheral/Venous Blood Culture - Preliminary Culture in Progress 08/17/21 15:00 Peripheral/Venous Blood Culture - Preliminary Culture in Progress Active Medications - Current Medications Current Medications: Generic Name Dose Route Start Last Admin Trade Name Freq PRN Reason Stop Dose Admin Acetaminophen 650 mg 08/17/21 07:50 Acetaminophen 325 Mg Tab PO Q6H PRN Pain, Mild (1-3) Acetaminophen 650 mg 08/17/21 08:17 08/17/21 14:49 Acetaminophen 650 Mg Rect Supp RI 650 mg Q4H PRN Administration Pain, Mild (1-3) Aspirin 325 mg 08/18/21 10:00 08/18/21 09:44 Aspirin Ec 325 Mg Tab PO Not Given QDAY HAM Dextrose 50 ml 08/17/21 23:37 Dextrose 50% In Water (25gm) 50 Ml Syringe IV Q30MIN PRN Hypoglycemia Protocol Famotidine 20 mg 08/17/21 10:00 08/18/21 09:49 Famotidine 20 Mg/2 Ml Inj IV 20 mg QDAY HAM Administration Heparin Sodium (Porcine) 5,000 unit 08/17/21 06:00 08/18/21 06:26 Heparin 5,000 Unit/1 Ml Vial SUB-Q 5,000 unit Q8HR HAM Administration Heparin Sodium (Porcine) 3,000 unit 08/17/21 07:41 Heparin 10,000 Units/10 Ml Vial IV KATI PRN hemodialysis Hydralazine HCl 100 mg 08/17/21 09:00 08/18/21 09:44 Hydralazine 100 Mg Tab PO Not Given TID HAM Hydralazine HCl 10 mg 08/17/21 07:56 08/18/21 10:41 Hydralazine 20 Mg/1 Ml Inj IV 10 mg Q4HR PRN Administration Hypertension Hydromorphone HCl 0.25 mg 08/17/21 07:50 Hydromorphone 0.5 Mg/0.5 Ml Inj IV Q4H PRN Pain, Moderate (4-6) Daptomycin 500 mg/ Sodium 100 mls @ 200 mls/hr 08/17/21 15:00 08/17/21 14:47 Chloride IV 200 mls/hr Q48H HAM Administration Protocol Sodium Chloride 100 mls @ 999 mls/hr 08/18/21 10:08 Nacl 0.9% IV KATI PRN Hypotension Cefepime HCl 1 gm in 100 mls @ 200 mls/hr 08/19/21 18:00 Cefepime/Ns 1 Gm/100 Ml IV QPM [facility] Protocol Insulin Glargine 10 units 08/18/21 22:00 Insulin Glargine 100 Units/Ml SUB-Q QHS [facility] Insulin Human Lispro 0 unit 08/18/21 00:00 08/18/21 12:03 Insulin Lispro 100 Unit/Ml SUB-Q Not Given Q6HR [facility] Protocol Levothyroxine Sodium 125 mcg 08/17/21 10:00 08/18/21 06:22 Levothyroxine 125 Mcg Tab PO Not Given QAM@0600 [facility] Losartan Potassium 50 mg 08/17/21 10:00 08/18/21 09:44 Losartan 50 Mg Tab PO Not Given QDAY [facility] Magnesium Hydroxide 30 ml 08/17/21 04:09 Magnesium Hydroxide (Mom) Oral Liqd Udc PO Q4H PRN Constipation Ondansetron HCl 4 mg 08/17/21 04:09 Ondansetron 4 Mg/2 Ml Inj IV Q8H PRN Nausea And Vomiting Sodium Chloride 10 ml 08/17/21 10:00 08/18/21 09:49 Sodium Chloride 0.9% 10 Ml Flush Syringe IV 10 ml BID HAM Administration Sodium Chloride 10 ml 08/17/21 04:09 Sodium Chloride 0.9% 10 Ml Flush Syringe IV PRN PRN LINE FLUSH Nutrition/Malnutrition Assess - Dietary Evaluation Nutrition/Malnutrition Findings: Nutrition Notes Start: 08/17/21 12:51 Freq: Status: Active Protocol: Document 08/17/21 12:51 GABRIEL (Rec: 08/17/21 12:58 GABRIEL [id number]) Nutrition Notes Need for Assessment generated from: MD Order,Education Initial or Follow up Brief Note Current Diagnosis CKD (stage V CKD),Diabetes, Hypertension,Stroke Other Pertinent Diagnosis ESRD+HD, DKA, AMS, Hypothyroidism. Current Diet NPO (since 08/17 04:10). Height 5 ft 8 in Weight 104.326 kg [place] Body Weight (kg) 63.63 BMI 34.9 Weight change and time frame None provided at admission. Weight Status Obese Subjective/Other Information RD consult for nutrition education assessment. Pt currently on NPO. Pt is on Nasal Cannula, O2 saturation @ 100%, according to Physical Assessment History notes. Pt still in critical condition , not a candidate for Nutrition Education at the time, will assess feasibility on F/U. Percent of energy/protein needs met: Pt currently on NPO. Nutrition Intervention Follow-Up By: 08/19/21 Additional Comments Nutrition education will be provided on F/U, if feasible. When pertinent, start monitoring food tolerance, %PO intake of meals, and BM. <JACQUIE HAMMOND - Last Filed: 08/18/21 18:07> Assessment and Plan Assessment and plan: I saw and evaluated the patient. I agree with the findings and the plan of care as documented in the Nurse Practitioner's~note, with the following corrections and additions. Hospitalist Physical - Constitutional Vitals: Temp Pulse Resp BP Pulse Ox 98.8 F 74 16 173/65 97 08/18/21 12:00 08/18/21 16:21 08/18/21 16:21 08/18/21 16:21 08/18/21 16:21 Results - Labs CBC & Chem 7: 08/18/21 04:56 08/18/21 04:56 Labs: Laboratory Last Values WBC 8.6 K/mm3 (4.5-11.0) 08/18/21 04:56 RBC 3.96 M/mm3 (3.65-5.03) 08/18/21 04:56 Hgb 10.6 gm/dl (10.1-14.3) 08/18/21 04:56 Hct 34.0 % (30.3-42.9) 08/18/21 04:56 MCV 86 fl (79-97) 08/18/21 04:56 MCH 27 pg (28-32) L 08/18/21 04:56 MCHC 31 % (30-34) 08/18/21 04:56 RDW 19.7 % (13.2-15.2) H 08/18/21 04:56 Plt Count 177 K/mm3 (140-440) 08/18/21 04:56 Lymph % (Auto) 25.1 % (13.4-35.0) 08/18/21 04:56 [place] % (Auto) 9.7 % (0.0-7.3) H 08/18/21 04:56 Eos % (Auto) 0.1 % (0.0-4.3) 08/18/21 04:56 Baso % (Auto) 1.1 % (0.0-1.8) 08/18/21 04:56 Lymph # (Auto) 2.2 K/mm3 (1.2-5.4) 08/18/21 04:56 [place] # (Auto) 0.8 K/mm3 (0.0-0.8) 08/18/21 04:56 Eos # (Auto) 0.0 K/mm3 (0.0-0.4) 08/18/21 04:56 Baso # (Auto) 0.1 K/mm3 (0.0-0.1) 08/18/21 04:56 Seg Neutrophils % 64.0 % (40.0-70.0) 08/18/21 04:56 Seg Neutrophils # 5.5 K/mm3 (1.8-7.7) 08/18/21 04:56 PT 13.7 Sec. (12.2-14.9) 08/17/21 02:07 INR 0.95 (0.87-1.13) 08/17/21 02:07 APTT 26.8 Sec. (24.2-36.6) 08/17/21 02:07 D-Dimer 2695.37 ng/mlDDU (0-234) H 08/17/21 14:40 Sodium 138 mmol/L (137-145) 08/18/21 04:56 Potassium 3.8 mmol/L (3.6-5.0) 08/18/21 04:56 Chloride 96.8 mmol/L (98-107) L 08/18/21 04:56 Carbon Dioxide 23 mmol/L (22-30) 08/18/21 04:56 Anion Gap 22 mmol/L 08/18/21 04:56 BUN 44 mg/dL (7-17) H 08/18/21 04:56 Creatinine 9.3 mg/dL (0.6-1.2) H 08/18/21 04:56 Estimated GFR 6 ml/min 08/18/21 04:56 BUN/Creatinine Ratio 5 % 08/18/21 04:56 Glucose 170 mg/dL (65-100) H 08/18/21 04:56 POC Glucose 228 mg/dL (70-105) H 08/18/21 17:01 Hemoglobin A1c 10.2 % (4-6) H 08/18/21 04:56 Lactic Acid 1.70 mmol/L (0.7-2.0) 08/17/21 02:07 Calcium 9.5 mg/dL (8.4-10.2) 08/18/21 04:56 Phosphorus 6.70 mg/dL (2.5-4.5) H 08/18/21 04:56 Magnesium 1.90 mg/dL (1.7-2.3) 08/18/21 04:56 Total Bilirubin 0.40 mg/dL (0.1-1.2) 08/17/21 02:07 AST 11 units/L (5-40) 08/17/21 02:07 ALT < 5 units/L (7-56) L 08/17/21 02:07 Alkaline Phosphatase 182 units/L (35-129) H 08/17/21 02:07 NT-Pro-B Natriuret Pep 77252 pg/mL (0-450) H 08/17/21 02:07 Total Protein 7.8 g/dL (6.3-8.2) 08/17/21 02:07 Albumin 3.9 g/dL (3.9-5) 08/17/21 02:07 Albumin/Globulin Ratio 1.0 % 08/17/21 02:07 Triglycerides 128 mg/dL (2-149) 08/17/21 14:40 Cholesterol 128 mg/dL (50-199) 08/17/21 14:40 LDL Cholesterol Direct 69 mg/dL (50-130) 08/17/21 14:40 HDL Cholesterol 30 mg/dL (40-59) L 08/17/21 14:40 Cholesterol/HDL Ratio 4.26 % 08/17/21 14:40 TSH 5.080 mlU/mL (0.270-4.200) H 08/17/21 02:07 Salicylates < 0.3 mg/dL (2.8-20.0) L 08/17/21 02:07 Acetaminophen 5.0 ug/mL (10.0-30.0) L 08/17/21 02:07 Plasma/Serum Alcohol < 0.01 % (0-0.07) 08/17/21 02:07 SARS-CoV-2 (PCR) Negative (Negative) 08/17/21 09:12 Hepatitis A IgM Ab Non-reactive (NonReactive) 08/17/21 14:40 Hep Bs Antigen Non-reactive (Negative) 08/17/21 14:40 Hep B Core IgM Ab Non-reactive (NonReactive) 08/17/21 14:40 Hepatitis C Antibody Non-reactive (NonReactive) 08/17/21 14:40 Blood Type O POSITIVE 08/17/21 17:43 Antibody Screen Negative 08/17/21 17:43 Microbiology: Microbiology 08/17/21 15:00 Peripheral/Venous Blood Culture - Preliminary NO GROWTH AFTER 24 HOURS 08/17/21 17:47 Peripheral/Venous Blood Culture - Preliminary Culture in Progress Active Medications - Current Medications Current Medications: Generic Name Dose Route Start Last Admin Trade Name Freq PRN Reason Stop Dose Admin Acetaminophen 650 mg 08/17/21 07:50 Acetaminophen 325 Mg Tab PO Q6H PRN Pain, Mild (1-3) Acetaminophen 650 mg 08/17/21 08:17 08/17/21 14:49 Acetaminophen 650 Mg Rect Supp RI 650 mg Q4H PRN Administration Pain, Mild (1-3) Aspirin 325 mg 08/18/21 10:00 08/18/21 09:44 Aspirin Ec 325 Mg Tab PO Not Given QDAY HAM Dextrose 50 ml 08/17/21 23:37 Dextrose 50% In Water (25gm) 50 Ml Syringe IV Q30MIN PRN Hypoglycemia Protocol Famotidine 20 mg 08/17/21 10:00 08/18/21 09:49 Famotidine 20 Mg/2 Ml Inj IV 20 mg QDAY HAM Administration Heparin Sodium (Porcine) 5,000 unit 08/17/21 06:00 08/18/21 14:54 Heparin 5,000 Unit/1 Ml Vial SUB-Q 5,000 unit Q8HR HAM Administration Heparin Sodium (Porcine) 3,000 unit 08/17/21 07:41 Heparin 10,000 Units/10 Ml Vial IV KATI PRN hemodialysis Hydralazine HCl 100 mg 08/17/21 09:00 08/18/21 14:09 Hydralazine 100 Mg Tab PO Not Given TID HAM Hydralazine HCl 10 mg 08/17/21 07:56 08/18/21 14:56 Hydralazine 20 Mg/1 Ml Inj IV 10 mg Q4HR PRN Administration Hypertension Hydromorphone HCl 0.25 mg 08/17/21 07:50 Hydromorphone 0.5 Mg/0.5 Ml Inj IV Q4H PRN Pain, Moderate (4-6) Daptomycin 500 mg/ Sodium 100 mls @ 200 mls/hr 08/17/21 15:00 08/17/21 14:47 Chloride IV 200 mls/hr Q48H [facility] Administration Protocol Sodium Chloride 100 mls @ 999 mls/hr 08/18/21 10:08 Nacl 0.9% IV KATI PRN Hypotension Cefepime HCl 1 gm in 100 mls @ 200 mls/hr 08/19/21 18:00 Cefepime/Ns 1 Gm/100 Ml IV QPM [facility] Protocol Levetiracetam 500 mg/ Dextrose 105 mls @ 400 mls/hr 08/18/21 15:00 08/18/21 14:50 IV 400 mls/hr DAILY HAM Administration Insulin Glargine 5 units 08/18/21 22:00 Insulin Glargine 100 Units/Ml SUB-Q QHS [facility] Insulin Human Lispro 0 unit 08/18/21 00:00 08/18/21 17:06 Insulin Lispro 100 Unit/Ml SUB-Q 3 unit Q6HR [facility] Administration Protocol Levothyroxine Sodium 62.5 mcg 08/18/21 15:00 08/18/21 15:45 Levothyroxine 100 Mcg Inj IV 62.5 mcg DAILY@0600 [facility] Administration Losartan Potassium 50 mg 08/17/21 10:00 08/18/21 09:44 Losartan 50 Mg Tab PO Not Given QDAY HAM Magnesium Hydroxide 30 ml 08/17/21 04:09 Magnesium Hydroxide (Mom) Oral Liqd Udc PO Q4H PRN Constipation Ondansetron HCl 4 mg 08/17/21 04:09 Ondansetron 4 Mg/2 Ml Inj IV Q8H PRN Nausea And Vomiting Sodium Chloride 10 ml 08/17/21 10:00 08/18/21 09:49 Sodium Chloride 0.9% 10 Ml Flush Syringe IV 10 ml BID HAM Administration Sodium Chloride 10 ml 08/17/21 04:09 Sodium Chloride 0.9% 10 Ml Flush Syringe IV PRN PRN LINE FLUSH Nutrition/Malnutrition Assess - Dietary Evaluation Nutrition/Malnutrition Findings: Nutrition Notes Start: 08/17/21 12:51 Freq: Status: Active Protocol: Document 08/17/21 12:51 GABRIEL (Rec: 08/17/21 12:58 GABRIEL [id number]) Nutrition Notes Need for Assessment generated from: MD Order,Education Initial or Follow up Brief Note Current Diagnosis CKD (stage V CKD),Diabetes, Hypertension,Stroke Other Pertinent Diagnosis ESRD+HD, DKA, AMS, Hypothyroidism. Current Diet NPO (since 08/17 04:10). Height 5 ft 8 in Weight 104.326 kg [place] Body Weight (kg) 63.63 BMI 34.9 Weight change and time frame None provided at admission. Weight Status Obese Subjective/Other Information RD consult for nutrition education assessment. Pt currently on NPO. Pt is on Nasal Cannula, O2 saturation @ 100%, according to Physical Assessment History notes. Pt still in critical condition , not a candidate for Nutrition Education at the time, will assess feasibility on F/U. Percent of energy/protein needs met: Pt currently on NPO. Nutrition Intervention Follow-Up By: 08/19/21 Additional Comments Nutrition education will be provided on F/U, if feasible. When pertinent, start monitoring food tolerance, %PO intake of meals, and BM.
--- NOTE | 2021-08-18 14:42 | Progress Note ---
Assessment and Plan Cultures: Blood cultures no growth so far A/P: 41-year-old female past medical history CVA, ESRD on HD, diabetes now with: #SIRS versus sepsis: With fevers, tachycardia, tachypnea. Unclear source at present. #DKA: Currently on ICU with insulin drip. #Acute encephalopathy: Possibly secondary to DKA. #ESRD on HD: Renally dose medications Recs: -Follow-up blood cultures. -Continue vancomycin empirically as she is HD patient and at risk of bacteremia. -Continue renally dosed cefepime. Thank you for the consult, we will continue to follow. Cole Tamayo MD [facility] ([facility]) O: [phone] F: [phone] Subjective Date of service: 08/18/21 Principal diagnosis: encephalopathy Interval history: Afebrile overnight, normal white count. Cultures remain negative. Objective - Exam Narrative Exam: Physical Exam: Constitutional: Awake, confused Head, Ears, Nose: Normocephalic, atraumatic. External ears, nose normal Eyes: Conjunctivae/corneas clear. No icterus. No ptosis. Neck: Supple, no meningeal signs Oral: dentition fair, no thrush Cardiovascular: S1, S2 normal. Respiratory: Good air entry, clear to auscultation bilaterally GI: Soft, non-tender; bowel sounds normal. No peritoneal signs. Musculoskeletal: No pedal edema, no cyanosis. Skin: No rash or abscess Hem/Lymphatic: No palpable cervical or supraclavicular nodes. No lymphangitis Psych: Confused Neurological: Confused awake - Constitutional Vitals: Vital Signs Temp Pulse Resp BP Pulse Ox 98.8 F 69 15 157/58 98 08/18/21 12:00 08/18/21 13:00 08/18/21 13:00 08/18/21 13:00 08/18/21 13:00 Temperature -Last 24 Hours Temperature 98.8 F Temperature 97.4 F Temperature 99.4 F Temperature 100.2 F Temperature 99.2 F Temperature 100.2 F Temperature 100.2 F Temperature 100.1 F Temperature 101.3 F - Labs CBC & Chem 7: 08/18/21 04:56 08/18/21 04:56 Labs: Abnormal lab results 08/17/21 08/17/21 08/17/21 Range/Units 14:40 14:40 14:40 MCH (28-32) pg RDW (13.2-15.2) % [place] % (Auto) (0.0-7.3) % D-Dimer 2695.37 H (0-234) ng/mlDDU Chloride 96.7 L (98-107) mmol/L BUN 63 H (7-17) mg/dL Creatinine 10.7 H (0.6-1.2) mg/dL Glucose 145 H (65-100) mg/dL POC Glucose (70-105) mg/dL Hemoglobin A1c (4-6) % Phosphorus (2.5-4.5) mg/dL HDL Cholesterol 30 L (40-59) mg/dL 08/17/21 08/17/21 08/17/21 Range/Units 14:40 16:45 17:47 MCH (28-32) pg RDW (13.2-15.2) % [place] % (Auto) (0.0-7.3) % D-Dimer (0-234) ng/mlDDU Chloride 96.2 L (98-107) mmol/L BUN 44 H (7-17) mg/dL Creatinine 7.2 H (0.6-1.2) mg/dL Glucose 167 H (65-100) mg/dL POC Glucose 136 H 165 H (70-105) mg/dL Hemoglobin A1c (4-6) % Phosphorus (2.5-4.5) mg/dL HDL Cholesterol (40-59) mg/dL 08/17/21 08/17/21 08/17/21 Range/Units 18:01 21:01 22:40 [facility] (28-32) pg RDW (13.2-15.2) % [place] % (Auto) (0.0-7.3) % D-Dimer (0-234) ng/mlDDU Chloride 97.1 L 96.4 L (98-107) mmol/L BUN 39 H 40 H (7-17) mg/dL Creatinine 8.0 H 8.5 H (0.6-1.2) mg/dL Glucose 122 H 109 H (65-100) mg/dL POC Glucose 172 H (70-105) mg/dL Hemoglobin A1c (4-6) % Phosphorus (2.5-4.5) mg/dL HDL Cholesterol (40-59) mg/dL 08/17/21 08/18/21 08/18/21 Range/Units 22:40 02:13 04:56 MCH 27 L (28-32) pg RDW 19.7 H (13.2-15.2) % [place] % (Auto) (0.0-7.3) % D-Dimer (0-234) ng/mlDDU Chloride 96.8 L (98-107) mmol/L BUN 44 H (7-17) mg/dL Creatinine 9.3 H (0.6-1.2) mg/dL Glucose 170 H (65-100) mg/dL POC Glucose 190 H (70-105) mg/dL Hemoglobin A1c (4-6) % Phosphorus 6.70 H (2.5-4.5) mg/dL HDL Cholesterol (40-59) mg/dL 08/18/21 08/18/21 Range/Units 04:56 04:56 MCH 27 L (28-32) pg RDW 19.7 H (13.2-15.2) % [place] % (Auto) 9.7 H (0.0-7.3) % D-Dimer (0-234) ng/mlDDU Chloride (98-107) mmol/L BUN (7-17) mg/dL Creatinine (0.6-1.2) mg/dL Glucose (65-100) mg/dL POC Glucose (70-105) mg/dL Hemoglobin A1c 10.2 H (4-6) % Phosphorus (2.5-4.5) mg/dL HDL Cholesterol (40-59) mg/dL
[2021-08-18] MEDS: levETIRAcetam 500 MG in DEXTROSE 5% IN WATER 100 ML IV SCH (14:50)
[2021-08-18] MEDS: LEVOTHYROXINE 100 MCG INJ IV SCH (15:45)
[2021-08-18] MEDS ORDERED: INSULIN GLARGINE 100 UNITS/ML SUB-Q SCH ×2 (22:00)
[2021-08-18] MEDS: HYDROmorphone 0.5 MG/0.5 ML INJ IV PRN (22:32)
[2021-08-19] MEDS: INSULIN LISPRO 100 UNIT/ML SUB-Q SCH ×4 (00:10→18:05)
[2021-08-19] MEDS: hydrALAZINE 20 MG/1 ML INJ IV PRN ×5 (00:11→23:04)
[2021-08-19] MEDS ORDERED: LORazepam 2 MG/ML VIAL IV ONE (03:09)
[2021-08-19 04:55] LABS: Mean Corpuscular HGB Conc 30 % (30-34); Mean Corpuscular Volume 87 fl (79-97); Red Blood Count 4.57 M/mm3 (3.65-5.03); Red Cell Distribution Width 19.5 % (13.2-15.2)
[2021-08-19 05:03] LABS: Hematocrit 39.9 % (30.3-42.9); Hemoglobin 12.1 gm/dl (10.1-14.3); Platelet Count 169 K/mm3 (140-440)
[2021-08-19] MEDS: HEPARIN 5,000 UNIT/1 ML VIAL SUB-Q SCH ×3 (05:06→22:36)
[2021-08-19 05:14] LABS: Calcium 9.1 mg/dL (8.4-10.2)
[2021-08-19] MEDS: LEVOTHYROXINE 100 MCG INJ IV SCH (06:17)
[2021-08-19] MEDS: hydrALAZINE 100 MG TAB PO SCH ×3 (07:09→19:10)
[2021-08-19] MEDS: LOSARTAN 50 MG TAB PO SCH ×2 (09:55→14:18)
[2021-08-19] MEDS: ASPIRIN EC 325 MG TAB PO SCH (09:56)
[2021-08-19] MEDS: levETIRAcetam 500 MG in DEXTROSE 5% IN WATER 100 ML IV SCH (10:03)
[2021-08-19] MEDS: FAMOTIDINE 20 MG/2 ML INJ IV SCH (10:03)
--- NOTE | 2021-08-19 10:17 | Progress Note ---
Assessment and Plan 1. ESRD: Patient is on maintenance HD, MWF schedule. Last outpatient HD 08/12/21. Meds dosage based on GFR. Hemodialysis: 08/17. HD today. 2. FEN: Metabolic acidosis, s/p HD, monitor. UF with HD as tolerated. Monitor lytes and volume status. 3. Diabetic Hyperosmolar State, POA: S/p Insulin gtt. Per protocol. 4. Malfunctioning hemodialysis access: Patient presented with no functioning hemodialysis access. S/p R femoral non-tunnel catheter. 5. Acute Metabolic Encephalopathy, POA: 2/[address] head and MRI brain negative. 6. SIRS versus sepsis: Unclear source at present. Abx per ID. 7. HTN: Monitor BP. Subjective: Patient was seen and examined at the bedside. Nurse at the bedside. Examination: General appearance: well-developed, well-nourished, appears stated age, no distress HEENT: ATNC, pupils equal Neck: trachea midline Respiratory: Clear to Auscultation Cardiology: regular, S1S2, no murmur Gastrointestinal: soft, normoactive bowel sounds, not tender, ND Integumentary: no rash Neurologic: stuporous, restrains Ext: no edema noted Hemodialysis access: R femoral non-tunnel catheter Subjective Date of service: 08/19/21 Principal diagnosis: encephalopathy Objective - Vital Signs Vital signs: Vital Signs - 12hr 08/18/21 08/18/21 08/18/21 22:21 22:31 22:32 Temperature Pulse Rate 75 89 Pulse Rate [ From Monitor] Respiratory 14 17 Rate Respiratory 20 Rate [Chest] Respiratory 20 Rate [Head] Respiratory 20 Rate [general extremeties] Blood Pressure 183/68 130/107 O2 Sat by Pulse 96 98 Oximetry 08/18/21 08/18/21 08/18/21 22:41 22:51 23:01 Temperature Pulse Rate 97 H 83 82 Pulse Rate [ From Monitor] Respiratory 17 14 17 Rate Respiratory Rate [Chest] Respiratory Rate [Head] Respiratory Rate [general extremeties] Blood Pressure 130/107 194/69 194/69 O2 Sat by Pulse 99 96 96 Oximetry 08/18/21 08/18/21 08/18/21 23:02 23:11 23:21 Temperature Pulse Rate 81 85 Pulse Rate [ From Monitor] Respiratory 15 12 Rate Respiratory 20 Rate [Chest] Respiratory 20 Rate [Head] Respiratory 20 Rate [general extremeties] Blood Pressure 194/69 198/72 O2 Sat by Pulse 96 98 Oximetry 08/18/21 08/18/21 08/18/21 23:31 23:41 23:51 Temperature Pulse Rate 87 79 82 Pulse Rate [ From Monitor] Respiratory 14 15 13 Rate Respiratory Rate [Chest] Respiratory Rate [Head] Respiratory Rate [general extremeties] Blood Pressure 177/60 177/60 183/65 O2 Sat by Pulse 97 96 96 Oximetry 08/19/21 08/19/21 08/19/21 00:00 00:01 00:11 Temperature 98.4 F Pulse Rate 87 88 92 H Pulse Rate [ From Monitor] Respiratory 14 13 11 L Rate Respiratory Rate [Chest] Respiratory Rate [Head] Respiratory Rate [general extremeties] Blood Pressure 184/95 184/95 184/95 O2 Sat by Pulse 98 98 97 Oximetry 08/19/21 08/19/21 08/19/21 00:21 00:31 00:41 Temperature Pulse Rate 91 H 93 H 99 H Pulse Rate [ From Monitor] Respiratory 14 12 17 Rate Respiratory Rate [Chest] Respiratory Rate [Head] Respiratory Rate [general extremeties] Blood Pressure 185/100 184/92 184/92 O2 Sat by Pulse 97 98 97 Oximetry 08/19/21 08/19/21 08/19/21 00:51 01:01 01:11 Temperature Pulse Rate 96 H 98 H 90 Pulse Rate [ From Monitor] Respiratory 17 15 19 Rate Respiratory Rate [Chest] Respiratory Rate [Head] Respiratory Rate [general extremeties] Blood Pressure 184/92 180/69 180/69 O2 Sat by Pulse 97 96 96 Oximetry 08/19/21 08/19/21 08/19/21 01:21 01:31 01:41 Temperature Pulse Rate 89 95 H 93 H Pulse Rate [ From Monitor] Respiratory 17 15 16 Rate Respiratory Rate [Chest] Respiratory Rate [Head] Respiratory Rate [general extremeties] Blood Pressure 193/70 197/61 197/61 O2 Sat by Pulse 96 96 95 Oximetry 08/19/21 08/19/21 08/19/21 01:50 01:51 02:00 Temperature Pulse Rate 93 H 89 86 Pulse Rate [ From Monitor] Respiratory 15 18 Rate Respiratory Rate [Chest] Respiratory Rate [Head] Respiratory Rate [general extremeties] Blood Pressure 188/71 188/71 O2 Sat by Pulse 97 97 Oximetry 08/19/21 08/19/21 08/19/21 02:01 02:11 02:21 Temperature Pulse Rate 85 80 80 Pulse Rate [ From Monitor] Respiratory 13 15 16 Rate Respiratory Rate [Chest] Respiratory Rate [Head] Respiratory Rate [general extremeties] Blood Pressure 188/71 188/71 179/62 O2 Sat by Pulse 96 95 95 Oximetry 08/19/21 08/19/21 08/19/21 02:31 02:41 02:51 Temperature Pulse Rate 84 86 82 Pulse Rate [ From Monitor] Respiratory 13 13 13 Rate Respiratory Rate [Chest] Respiratory Rate [Head] Respiratory Rate [general extremeties] Blood Pressure 174/61 174/61 184/60 O2 Sat by Pulse 98 97 97 Oximetry 08/19/21 08/19/21 08/19/21 03:00 03:11 03:21 Temperature Pulse Rate 88 89 82 Pulse Rate [ From Monitor] Respiratory 16 17 17 Rate Respiratory Rate [Chest] Respiratory Rate [Head] Respiratory Rate [general extremeties] Blood Pressure 202/71 202/71 210/63 O2 Sat by Pulse 97 97 95 Oximetry 08/19/21 08/19/21 08/19/21 03:31 03:41 03:51 Temperature Pulse Rate 90 92 H 90 Pulse Rate [ From Monitor] Respiratory 17 15 19 Rate Respiratory Rate [Chest] Respiratory Rate [Head] Respiratory Rate [general extremeties] Blood Pressure 197/69 197/69 164/57 O2 Sat by Pulse 98 97 97 Oximetry 08/19/21 08/19/21 08/19/21 04:00 04:01 04:11 Temperature 98.8 F Pulse Rate 86 91 H 89 Pulse Rate [ From Monitor] Respiratory 18 18 16 Rate Respiratory Rate [Chest] Respiratory Rate [Head] Respiratory Rate [general extremeties] Blood Pressure 162/57 162/57 O2 Sat by Pulse 97 96 97 Oximetry 08/19/21 08/19/21 08/19/21 04:21 04:30 04:41 Temperature Pulse Rate 90 90 86 Pulse Rate [ From Monitor] Respiratory 16 15 16 Rate Respiratory Rate [Chest] Respiratory Rate [Head] Respiratory Rate [general extremeties] Blood Pressure 156/54 154/83 154/83 O2 Sat by Pulse 97 97 96 Oximetry 08/19/21 08/19/21 08/19/21 04:51 05:01 05:11 Temperature Pulse Rate 84 91 H 81 Pulse Rate [ From Monitor] Respiratory 17 17 16 Rate Respiratory Rate [Chest] Respiratory Rate [Head] Respiratory Rate [general extremeties] Blood Pressure 157/56 157/56 196/77 O2 Sat by Pulse 96 98 95 Oximetry 08/19/21 08/19/21 08/19/21 05:21 05:31 05:41 Temperature Pulse Rate 85 89 86 Pulse Rate [ From Monitor] Respiratory 18 19 17 Rate Respiratory Rate [Chest] Respiratory Rate [Head] Respiratory Rate [general extremeties] Blood Pressure 182/57 191/65 191/65 O2 Sat by Pulse 97 97 95 Oximetry 08/19/21 08/19/21 08/19/21 05:51 06:01 06:11 Temperature Pulse Rate 85 95 H 92 H Pulse Rate [ From Monitor] Respiratory 15 16 17 Rate Respiratory Rate [Chest] Respiratory Rate [Head] Respiratory Rate [general extremeties] Blood Pressure 185/66 162/59 162/59 O2 Sat by Pulse 96 97 96 Oximetry 08/19/21 08/19/21 08/19/21 06:21 06:30 06:41 Temperature Pulse Rate 91 H 89 92 H Pulse Rate [ From Monitor] Respiratory 15 18 18 Rate Respiratory Rate [Chest] Respiratory Rate [Head] Respiratory Rate [general extremeties] Blood Pressure 150/54 136/47 162/59 O2 Sat by Pulse 97 96 97 Oximetry 08/19/21 08/19/21 08/19/21 06:51 07:00 07:11 Temperature Pulse Rate 93 H 91 H 88 Pulse Rate [ From Monitor] Respiratory 17 19 20 Rate Respiratory Rate [Chest] Respiratory Rate [Head] Respiratory Rate [general extremeties] Blood Pressure 154/62 160/49 150/54 O2 Sat by Pulse 97 98 97 Oximetry 08/19/21 08/19/21 08/19/21 07:21 07:31 07:41 Temperature Pulse Rate 88 91 H 90 Pulse Rate [ From Monitor] Respiratory 16 16 15 Rate Respiratory Rate [Chest] Respiratory Rate [Head] Respiratory Rate [general extremeties] Blood Pressure 179/65 165/52 165/52 O2 Sat by Pulse 97 100 98 Oximetry 08/19/21 08/19/21 08/19/21 07:51 08:00 08:01 Temperature 98.7 F Pulse Rate 95 H 89 Pulse Rate [ 91 H From Monitor] Respiratory 14 16 Rate Respiratory Rate [Chest] Respiratory Rate [Head] Respiratory Rate [general extremeties] Blood Pressure 161/62 176/89 O2 Sat by Pulse 97 96 96 Oximetry 08/19/21 08/19/21 08/19/21 08:11 08:21 08:31 Temperature Pulse Rate 90 91 H 96 H Pulse Rate [ From Monitor] Respiratory 16 10 L 12 Rate Respiratory Rate [Chest] Respiratory Rate [Head] Respiratory Rate [general extremeties] Blood Pressure 165/52 163/66 179/73 O2 Sat by Pulse 96 90 99 Oximetry 08/19/21 08/19/21 08/19/21 08:41 08:51 09:01 Temperature Pulse Rate 92 H 97 H 98 H Pulse Rate [ From Monitor] Respiratory 15 17 21 Rate Respiratory Rate [Chest] Respiratory Rate [Head] Respiratory Rate [general extremeties] Blood Pressure 179/73 181/93 181/93 O2 Sat by Pulse 98 97 98 Oximetry 08/19/21 08/19/21 08/19/21 09:11 09:21 10:04 Temperature Pulse Rate 91 H 91 H 95 H Pulse Rate [ From Monitor] Respiratory 19 15 Rate Respiratory Rate [Chest] Respiratory Rate [Head] Respiratory Rate [general extremeties] Blood Pressure 192/66 199/75 197/72 O2 Sat by Pulse 97 99 Oximetry - Lab 08/19/21 04:37 08/19/21 04:37 Most recent lab results Calcium 9.1 mg/dL (8.4-10.2) 08/19/21 04:37 Phosphorus 6.70 mg/dL (2.5-4.5) H 08/18/21 04:56 Magnesium 1.90 mg/dL (1.7-2.3) 08/18/21 04:56 Medications & Allergies - Medications Allergies/Adverse Reactions: Allergies vancomycin Adverse Reaction (Verified 04/02/13 10:16) Hives Home Medications: Home Medications Medication Instructions Recorded Confirmed Last Taken Type Hydralazine HCl [hydrALAZINE] 100 mg PO BID 04/02/13 08/17/21 04/02/13 08:00 History Aspirin/Dipyridamole [Aggrenox] 1 cap PO BID #60 capsule 04/10/13 08/17/21 Unknown Rx Cinacalcet [Sensipar] 60 mg PO QDAY 08/17/21 08/17/21 Unknown History Citalopram [celeXA] 20 mg PO QDAY 08/17/21 08/17/21 Unknown History Ergocalciferol [Vitamin D2] 1 cap PO QWEEK 08/17/21 08/17/21 Unknown History Gabapentin [Neurontin] 100 mg PO Q8HR 08/17/21 08/17/21 Unknown History Insulin Glargine,Hum.rec.anlog 55 unit SQ BID 08/17/21 08/17/21 Unknown History [Lantus Solostar] Promethazine [Phenergan] 25 mg PO Q6HR PRN 08/17/21 08/17/21 Unknown History Sevelamer Carbonate [Renvela] 800 mg PO TIDWM 08/17/21 08/17/21 Unknown History amLODIPine [Norvasc] 10 mg PO DAILY 08/17/21 08/17/21 Unknown History carvediloL [Coreg] 25 mg PO BID 08/17/21 08/17/21 Unknown History cloNIDine [Catapres] 0.2 mg PO BID 08/17/21 08/17/21 Unknown History Active Medications: Generic Name Dose Route Start Last Admin Trade Name Freq PRN Reason Stop Dose Admin Acetaminophen 650 mg 08/17/21 07:50 Acetaminophen 325 Mg Tab PO Q6H PRN Pain, Mild (1-3) Acetaminophen 650 mg 08/17/21 08:17 08/17/21 14:49 Acetaminophen 650 Mg Rect Supp IA 650 mg Q4H PRN Administration Pain, Mild (1-3) Aspirin 325 mg 08/18/21 10:00 08/19/21 09:56 Aspirin Ec 325 Mg Tab PO Not Given QDAY HAM Dextrose 50 ml 08/17/21 23:37 Dextrose 50% In Water (25gm) 50 Ml Syringe IV Q30MIN PRN Hypoglycemia Protocol Famotidine 20 mg 08/17/21 10:00 08/19/21 10:03 Famotidine 20 Mg/2 Ml Inj IV 20 mg QDAY HAM Administration Heparin Sodium (Porcine) 5,000 unit 08/17/21 06:00 08/19/21 05:06 Heparin 5,000 Unit/1 Ml Vial SUB-Q 5,000 unit Q8HR HAM Administration Heparin Sodium (Porcine) 3,000 unit 08/17/21 07:41 Heparin 10,000 Units/10 Ml Vial IV KATI PRN hemodialysis Hydralazine HCl 100 mg 08/17/21 09:00 08/19/21 07:09 Hydralazine 100 Mg Tab PO Not Given TID [facility] Hydralazine HCl 10 mg 08/17/21 07:56 08/19/21 10:04 Hydralazine 20 Mg/1 Ml Inj IV 10 mg Q4HR PRN Administration Hypertension Hydromorphone HCl 0.25 mg 08/17/21 07:50 08/18/21 22:32 Hydromorphone 0.5 Mg/0.5 Ml Inj IV 0.25 mg Q4H PRN Administration Pain, Moderate (4-6) Daptomycin 500 mg/ Sodium 100 mls @ 200 mls/hr 08/17/21 15:00 08/17/21 14:47 Chloride IV 200 mls/hr Q48H [facility]AM Administration Protocol Sodium Chloride 100 mls @ 999 mls/hr 08/18/21 10:08 Nacl 0.9% IV KATI PRN Hypotension Cefepime HCl 1 gm in 100 mls @ 200 mls/hr 08/19/21 18:00 Cefepime/Ns 1 Gm/100 Ml IV QPM [facility] Protocol Levetiracetam 500 mg/ Dextrose 105 mls @ 400 mls/hr 08/18/21 15:00 08/19/21 10:03 IV 400 mls/hr DAILY HAM Administration Insulin Glargine 5 units 08/18/21 22:00 08/18/21 21:42 Insulin Glargine 100 Units/Ml SUB-Q 5 units QHS [facility]AM Administration Insulin Human Lispro 0 unit 08/18/21 00:00 08/19/21 06:00 Insulin Lispro 100 Unit/Ml SUB-Q Not Given Q6HR [facility] Protocol Levothyroxine Sodium 62.5 mcg 08/18/21 15:00 08/19/21 06:17 Levothyroxine 100 Mcg Inj IV 62.5 mcg DAILY@0600 [facility] Administration Losartan Potassium 50 mg 08/17/21 10:00 08/19/21 09:55 Losartan 50 Mg Tab PO Not Given QDAY [facility] Magnesium Hydroxide 30 ml 08/17/21 04:09 Magnesium Hydroxide (Mom) Oral Liqd Udc PO Q4H PRN Constipation Ondansetron HCl 4 mg 08/17/21 04:09 Ondansetron 4 Mg/2 Ml Inj IV Q8H PRN Nausea And Vomiting Sodium Chloride 10 ml 08/17/21 10:00 08/19/21 10:04 Sodium Chloride 0.9% 10 Ml Flush Syringe IV 10 ml BID HAM Administration Sodium Chloride 10 ml 08/17/21 04:09 08/19/21 02:59 Sodium Chloride 0.9% 10 Ml Flush Syringe IV 10 ml PRN PRN Administration LINE FLUSH
--- NOTE | 2021-08-19 10:40 | Progress Note ---
<ADAM WORKMAN - Last Filed: 08/19/21 16:01> Assessment and Plan Assessment and plan: This is a 41 year-old female with known past medical history of CVA, DVT, HTM, ESRD on HD(MWF), and type 2 diabetes mellitus admitted for DKA Hospital Course to Date: 08/17: Patient seen and examined at the bedside. Patient remains and obtunded, only arousable with stimuli. CT head noted with no acute abnormality. Neurology consulted. On 2L NC and able to protect her airway. Patient remains on insulin gtt per DKA protocol, BG is improving and anion gap most likely due to ESRD. Plan for HD today per Nephro, possible transition to subQ insulin post HD treatment. Patient is also febrile this am, VSS. Orders placed for blood cultures, empiric IV abx was initiated and ID was consulted. 08/18: Stable on RA this am. Awake and tracking, but not following commands. MRI brain pending, Neurology is also following. Transitioned to subQ insulin overnight, patient remains NPO due to mental status. PT/OT/Speech ordered. Patient RUE fistula clotted, Temp. Vascath inserted for HD. Vascular Surgery consulted for AVF eval and treat. BLE doppler noted. Per patient mother patient has not been on coumadin for a couple years, she was only on ASA. Patient might benefit from PO AC at discharge. Continue VTE proph, Heparin subq for now. 08/19: With left-side neglect. Awake and following commands on the right side only, but patient remains nonverbal. MRI brain and Neurology recs noted. C/f seizure now on Keppra per Neuro, EEG pending. Patient remains NPO, failed speech swallow due to mental status. Will insert DHT and initiate enteral nutrition. Continue PRN antihypertensives for now and resume PO antihypertensive therapy once DHT is placed. PRN Haldol added for agitation. D/w CCM patient is stable for transfer to Telemetry. Assessment and Plan #DKA (Diabetic Ketoacidosis) - Presented with elevated BG and anion gap metabolic acidosis - S/p DKA protocol - Hgb A1C 10.2 - Transitioned to SubQ insulin overnight - Continue SSI and BG Q6hrs since NPO - Lantus Qhs - Monitor and replace electrolytes as needed - Avoid Hypoglycemia #Possible Sepsis - High fevers this am, VSS, WBCs wnr - HD patient with AV-fistula, and h/o nursing home permacath which was removed a week ago - Blood cultures with NGTD - ID on consult, appreciated recommendations - Continue current IV abx per ID - Continue to F/U on B.cultures - Daily CBC monitor #End Stage renal Disease(ESRD) on HD - Nephrology on consult, appreciated recommendation - RUE AV-Fistula clotted, Temporary Vascath inserted - Continue HD per Nephro - Strict intake and output, patient is anuric - Avoid nephrotoxic medications; Renally dose medications - Monitor and replace electrolytes as needed - Vascular Surgery consulted for AVF eval and treat #Acute Metabolic Encephalopathy #H/o CVA (cerebral infarction) with left-sided deficits - Multifactorial, DKA vs azotemia vs infectious process - Awake and tracking, not following commands - CT head noted with mo acute abnormality - S/p DKA protocol, HD per Nephro, and on IV abx - MRI brain noted - Neurology consulted, appreciated recommendations - c/f seizure, Keppra initiated per Neuro - EEG pending - PRN Haldolo for agitation - Fall and safety precaution - Aspiration precaution - Frequent reorientation - Avoid benzodiazepine to reduce the possibility of delirium - Maintenance of sleep-wake cycle - PT/OT/Speech ordered #HTN (Hypertension) - Hypertensive this am, patient unable to take PO meds due to alerted mentation - PO antihypertensives held - PRN Hydralazine and Labetalol for SBP greater than 160 - Continue blood pressure monitor per protocol #Elevated D-Dimer #RUE AV fistula Clotted #H/o DVT - BLE doppler showed no evidence for acute DVT in either lower extremity. 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 - Per patient's mother, patient has been off coumadin for a couple of years - Continue Heparin SubQ - Patient might benefit from PO AC at discharge, awaiting Vascular surgery recommendations #Hypothyroidism - Resume home synthroid #Dysphagia - Patient failed speech eval due to mental status - Plan to insert DHT and initiate enteral nutrition - Nutrition Consulted for TF management #GI/ DVT Prophylaxis - PPI- Pepcid - Heparin SubQ - SCDs to bilateral lower extremities while in bed #Advance care planning - Disease education data, care plan, diagnoses, and prognosis were discussed with patient's mother-Angely Roman # . Patient is full code. Patient family knowledges understanding and agreement with care plan. The high probability of a clinically significant, sudden or life threatening deterioration of the [multiple] system(s) required my full and direct attention, intervention and personal management. The aggregate critical care time was [60] minutes. This time is in addition to time spent performing reported procedures but includes the following: [x] Data Review and interpretation [x] Patient assessment and monitoring of vital signs [x] Documentation [x] Medication orders and management Disposition Plan: ICU Total Time Spent with Patient (Minutes): 60 History Interval history: Patient seen and examined at the bedside. Stable on RA and more awake this am. Patient is with left-sided neglect, Following commands, and moving the right side but patient remains nonverbal. Hypertensive overnight and this am, only receiving PRN antihypertensives for now. Patient is still NPO. Patient also received IV ativan overnight for increase agitation. Hospitalist Physical - Constitutional Vitals: Temp Pulse Resp BP Pulse Ox 98.7 F 99 H 19 188/163 97 08/19/21 08:00 08/19/21 10:31 08/19/21 10:31 08/19/21 10:31 08/19/21 10:31 General appearance: Present: no acute distress, well-nourished, obese - EENT Eyes: Present: PERRL - Neck Neck: Present: normal ROM - Respiratory Respiratory effort: normal Respiratory: bilateral: diminished - Cardiovascular Rhythm: regular Heart Sounds: Present: S1 & S2 - Extremities Extremities: no ischemia, pulses intact, pulses symmetrical Peripheral Pulses: within normal limits - Abdominal General gastrointestinal: soft, non-distended, normal bowel sounds - Integumentary Integumentary: Present: clear, warm, dry - Psychiatric Psychiatric: cooperative, other (Awake, following commands on the Right side. Nonverbal) - Neurologic Neurologic: focal deficits (Left side weakness and left side neglect), other (Awake, following commands on the Right side only. Nonverbal) - Allied Health Allied health notes reviewed: nursing, case management Results - Labs CBC & Chem 7: 08/19/21 04:37 08/19/21 04:37 Labs: Laboratory Last Values WBC 8.3 K/mm3 (4.5-11.0) 08/19/21 04:37 RBC 4.57 M/mm3 (3.65-5.03) 08/19/21 04:37 Hgb 12.1 gm/dl (10.1-14.3) 08/19/21 04:37 Hct 39.9 % (30.3-42.9) 08/19/21 04:37 MCV 87 fl (79-97) 08/19/21 04:37 MCH 27 pg (28-32) L 08/19/21 04:37 MCHC 30 % (30-34) 08/19/21 04:37 RDW 19.5 % (13.2-15.2) H 08/19/21 04:37 Plt Count 169 K/mm3 (140-440) 08/19/21 04:37 Lymph % (Auto) 25.1 % (13.4-35.0) 08/18/21 04:56 Hart % (Auto) 9.7 % (0.0-7.3) H 08/18/21 04:56 Eos % (Auto) 0.1 % (0.0-4.3) 08/18/21 04:56 Baso % (Auto) 1.1 % (0.0-1.8) 08/18/21 04:56 Lymph # (Auto) 2.2 K/mm3 (1.2-5.4) 08/18/21 04:56 Hart # (Auto) 0.8 K/mm3 (0.0-0.8) 08/18/21 04:56 Eos # (Auto) 0.0 K/mm3 (0.0-0.4) 08/18/21 04:56 Baso # (Auto) 0.1 K/mm3 (0.0-0.1) 08/18/21 04:56 Seg Neutrophils % 64.0 % (40.0-70.0) 08/18/21 04:56 Seg Neutrophils # 5.5 K/mm3 (1.8-7.7) 08/18/21 04:56 PT 13.7 Sec. (12.2-14.9) 08/17/21 02:07 INR 0.95 (0.87-1.13) 08/17/21 02:07 APTT 26.8 Sec. (24.2-36.6) 08/17/21 02:07 D-Dimer 2695.37 ng/mlDDU (0-234) H 08/17/21 14:40 Sodium 139 mmol/L (137-145) 08/19/21 04:37 Potassium 4.6 mmol/L (3.6-5.0) D 08/19/21 04:37 Chloride 96.7 mmol/L (98-107) L 08/19/21 04:37 Carbon Dioxide 21 mmol/L (22-30) L 08/19/21 04:37 Anion Gap 26 mmol/L 08/19/21 04:37 BUN 57 mg/dL (7-17) H 08/19/21 04:37 Creatinine 10.2 mg/dL (0.6-1.2) H 08/19/21 04:37 Estimated GFR 5 ml/min 08/19/21 04:37 BUN/Creatinine Ratio 6 % 08/19/21 04:37 Glucose 151 mg/dL (65-100) H 08/19/21 04:37 POC Glucose 192 mg/dL (70-105) H 08/18/21 23:58 Hemoglobin A1c 10.2 % (4-6) H 08/18/21 04:56 Lactic Acid 1.70 mmol/L (0.7-2.0) 08/17/21 02:07 Calcium 9.1 mg/dL (8.4-10.2) 08/19/21 04:37 Phosphorus 6.70 mg/dL (2.5-4.5) H 08/18/21 04:56 Magnesium 1.90 mg/dL (1.7-2.3) 08/18/21 04:56 Total Bilirubin 0.40 mg/dL (0.1-1.2) 08/17/21 02:07 AST 11 units/L (5-40) 08/17/21 02:07 ALT < 5 units/L (7-56) L 08/17/21 02:07 Alkaline Phosphatase 182 units/L (35-129) H 08/17/21 02:07 NT-Pro-B Natriuret Pep 70044 pg/mL (0-450) H 08/17/21 02:07 Total Protein 7.8 g/dL (6.3-8.2) 08/17/21 02:07 Albumin 3.9 g/dL (3.9-5) 08/17/21 02:07 Albumin/Globulin Ratio 1.0 % 08/17/21 02:07 Triglycerides 128 mg/dL (2-149) 08/17/21 14:40 Cholesterol 128 mg/dL (50-199) 08/17/21 14:40 LDL Cholesterol Direct 69 mg/dL (50-130) 08/17/21 14:40 HDL Cholesterol 30 mg/dL (40-59) L 08/17/21 14:40 Cholesterol/HDL Ratio 4.26 % 08/17/21 14:40 TSH 5.080 mlU/mL (0.270-4.200) H 08/17/21 02:07 Salicylates < 0.3 mg/dL (2.8-20.0) L 08/17/21 02:07 Acetaminophen 5.0 ug/mL (10.0-30.0) L 08/17/21 02:07 Plasma/Serum Alcohol < 0.01 % (0-0.07) 08/17/21 02:07 SARS-CoV-2 (PCR) Negative (Negative) 08/17/21 09:12 Hepatitis A IgM Ab Non-reactive (NonReactive) 08/17/21 14:40 Hep Bs Antigen Non-reactive (Negative) 08/17/21 14:40 Hep B Core IgM Ab Non-reactive (NonReactive) 08/17/21 14:40 Hepatitis C Antibody Non-reactive (NonReactive) 08/17/21 14:40 Blood Type O POSITIVE 08/17/21 17:43 Antibody Screen Negative 08/17/21 17:43 Microbiology: Microbiology 08/17/21 17:47 Peripheral/Venous Blood Culture - Preliminary NO GROWTH AFTER 24 HOURS 08/17/21 15:00 Peripheral/Venous Blood Culture - Preliminary NO GROWTH AFTER 24 HOURS Tomas/IV: Voiding Method Incontinent Active Medications - Current Medications Current Medications: Generic Name Dose Route Start Last Admin Trade Name Freq PRN Reason Stop Dose Admin Acetaminophen 650 mg 08/17/21 07:50 Acetaminophen 325 Mg Tab PO Q6H PRN Pain, Mild (1-3) Acetaminophen 650 mg 08/17/21 08:17 08/17/21 14:49 Acetaminophen 650 Mg Rect Supp NJ 650 mg Q4H PRN Administration Pain, Mild (1-3) Aspirin 325 mg 08/18/21 10:00 08/19/21 09:56 Aspirin Ec 325 Mg Tab PO Not Given QDAY HAM Dextrose 50 ml 08/17/21 23:37 Dextrose 50% In Water (25gm) 50 Ml Syringe IV Q30MIN PRN Hypoglycemia Protocol Famotidine 20 mg 08/17/21 10:00 08/19/21 10:03 Famotidine 20 Mg/2 Ml Inj IV 20 mg QDAY HAM Administration Heparin Sodium (Porcine) 5,000 unit 08/17/21 06:00 08/19/21 05:06 Heparin 5,000 Unit/1 Ml Vial SUB-Q 5,000 unit Q8HR HAM Administration Heparin Sodium (Porcine) 3,000 unit 08/17/21 07:41 Heparin 10,000 Units/10 Ml Vial IV KATI PRN hemodialysis Hydralazine HCl 100 mg 08/17/21 09:00 08/19/21 07:09 Hydralazine 100 Mg Tab PO Not Given TID HAM Hydralazine HCl 10 mg 08/17/21 07:56 08/19/21 10:04 Hydralazine 20 Mg/1 Ml Inj IV 10 mg Q4HR PRN Administration Hypertension Hydromorphone HCl 0.25 mg 08/17/21 07:50 08/18/21 22:32 Hydromorphone 0.5 Mg/0.5 Ml Inj IV 0.25 mg Q4H PRN Administration Pain, Moderate (4-6) Daptomycin 500 mg/ Sodium 100 mls @ 200 mls/hr 08/17/21 15:00 08/17/21 14:47 Chloride IV 200 mls/hr Q48H HAM Administration Protocol Sodium Chloride 100 mls @ 999 mls/hr 08/18/21 10:08 Nacl 0.9% IV KATI PRN Hypotension Cefepime HCl 1 gm in 100 mls @ 200 mls/hr 08/19/21 18:00 Cefepime/Ns 1 Gm/100 Ml IV QPM [facility] Protocol Levetiracetam 500 mg/ Dextrose 105 mls @ 400 mls/hr 08/18/21 15:00 08/19/21 10:03 IV 400 mls/hr DAILY HAM Administration Insulin Glargine 5 units 08/18/21 22:00 08/18/21 21:42 Insulin Glargine 100 Units/Ml SUB-Q 5 units QHS HAM Administration Insulin Human Lispro 0 unit 08/18/21 00:00 08/19/21 06:00 Insulin Lispro 100 Unit/Ml SUB-Q Not Given Q6HR [facility] Protocol Levothyroxine Sodium 62.5 mcg 08/18/21 15:00 08/19/21 06:17 Levothyroxine 100 Mcg Inj IV 62.5 mcg DAILY@0600 HAM Administration Losartan Potassium 50 mg 08/17/21 10:00 08/19/21 09:55 Losartan 50 Mg Tab PO Not Given QDAY HAM Magnesium Hydroxide 30 ml 08/17/21 04:09 Magnesium Hydroxide (Mom) Oral Liqd Udc PO Q4H PRN Constipation Ondansetron HCl 4 mg 08/17/21 04:09 Ondansetron 4 Mg/2 Ml Inj IV Q8H PRN Nausea And Vomiting Sodium Chloride 10 ml 08/17/21 10:00 08/19/21 10:04 Sodium Chloride 0.9% 10 Ml Flush Syringe IV 10 ml BID HAM Administration Sodium Chloride 10 ml 08/17/21 04:09 08/19/21 02:59 Sodium Chloride 0.9% 10 Ml Flush Syringe IV 10 ml PRN PRN Administration LINE FLUSH Nutrition/Malnutrition Assess - Dietary Evaluation Nutrition/Malnutrition Findings: Nutrition Notes Start: 08/17/21 12:51 Freq: Status: Active Protocol: Document 08/17/21 12:51 GABRIEL (Rec: 08/17/21 12:58 GABRIEL [id number]) Nutrition Notes Need for Assessment generated from: MD Order,Education Initial or Follow up Brief Note Current Diagnosis CKD (stage V CKD),Diabetes, Hypertension,Stroke Other Pertinent Diagnosis ESRD+HD, DKA, AMS, Hypothyroidism. Current Diet NPO (since 08/17 04:10). Height 5 ft 8 in Weight 104.326 kg [place] Body Weight (kg) 63.63 BMI 34.9 Weight change and time frame None provided at admission. Weight Status Obese Subjective/Other Information RD consult for nutrition education assessment. Pt currently on NPO. Pt is on Nasal Cannula, O2 saturation @ 100%, according to Physical Assessment History notes. Pt still in critical condition , not a candidate for Nutrition Education at the time, will assess feasibility on F/U. Percent of energy/protein needs met: Pt currently on NPO. Nutrition Intervention Follow-Up By: 08/19/21 Additional Comments Nutrition education will be provided on F/U, if feasible. When pertinent, start monitoring food tolerance, %PO intake of meals, and BM. <JACQUIE HAMMOND - Last Filed: 08/20/21 07:08> Assessment and Plan Assessment and plan: I saw and evaluated the patient. I agree with the findings and the plan of care as documented in the Nurse Practitioner's~note, with the following corrections and additions. Hospitalist Physical - Constitutional Vitals: Temp Pulse Resp BP Pulse Ox 98.7 F 104 H 20 219/89 99 08/20/21 04:42 08/20/21 05:34 08/20/21 04:42 08/20/21 05:34 08/20/21 04:42 Results - Labs CBC & Chem 7: 08/19/21 04:37 08/20/21 04:24 Labs: Laboratory Last Values WBC 8.3 K/mm3 (4.5-11.0) 08/19/21 04:37 RBC 4.57 M/mm3 (3.65-5.03) 08/19/21 04:37 Hgb 12.1 gm/dl (10.1-14.3) 08/19/21 04:37 Hct 39.9 % (30.3-42.9) 08/19/21 04:37 MCV 87 fl (79-97) 08/19/21 04:37 MCH 27 pg (28-32) L 08/19/21 04:37 MCHC 30 % (30-34) 08/19/21 04:37 RDW 19.5 % (13.2-15.2) H 08/19/21 04:37 Plt Count 169 K/mm3 (140-440) 08/19/21 04:37 Lymph % (Auto) 25.1 % (13.4-35.0) 08/18/21 04:56 Hart % (Auto) 9.7 % (0.0-7.3) H 08/18/21 04:56 Eos % (Auto) 0.1 % (0.0-4.3) 08/18/21 04:56 Baso % (Auto) 1.1 % (0.0-1.8) 08/18/21 04:56 Lymph # (Auto) 2.2 K/mm3 (1.2-5.4) 08/18/21 04:56 Hart # (Auto) 0.8 K/mm3 (0.0-0.8) 08/18/21 04:56 Eos # (Auto) 0.0 K/mm3 (0.0-0.4) 08/18/21 04:56 Baso # (Auto) 0.1 K/mm3 (0.0-0.1) 08/18/21 04:56 Seg Neutrophils % 64.0 % (40.0-70.0) 08/18/21 04:56 Seg Neutrophils # 5.5 K/mm3 (1.8-7.7) 08/18/21 04:56 PT 13.7 Sec. (12.2-14.9) 08/17/21 02:07 INR 0.95 (0.87-1.13) 08/17/21 02:07 APTT 26.8 Sec. (24.2-36.6) 08/17/21 02:07 D-Dimer 2695.37 ng/mlDDU (0-234) H 08/17/21 14:40 Sodium 133 mmol/L (137-145) L 08/20/21 04:24 Potassium 4.2 mmol/L (3.6-5.0) 08/20/21 04:24 Chloride 87.9 mmol/L (98-107) L 08/20/21 04:24 Carbon Dioxide 15 mmol/L (22-30) L 08/20/21 04:24 Anion Gap 34 mmol/L 08/20/21 04:24 BUN 33 mg/dL (7-17) H 08/20/21 04:24 Creatinine 7.3 mg/dL (0.6-1.2) H 08/20/21 04:24 Estimated GFR 7 ml/min 08/20/21 04:24 BUN/Creatinine Ratio 5 % 08/20/21 04:24 Glucose 365 mg/dL (65-100) H 08/20/21 04:24 POC Glucose 398 mg/dL (70-105) H 08/20/21 06:07 Hemoglobin A1c 10.2 % (4-6) H 08/18/21 04:56 Lactic Acid 1.70 mmol/L (0.7-2.0) 08/17/21 02:07 Calcium 10.0 mg/dL (8.4-10.2) 08/20/21 04:24 Phosphorus 6.50 mg/dL (2.5-4.5) H 08/20/21 04:24 Magnesium 2.00 mg/dL (1.7-2.3) 08/20/21 04:24 Total Bilirubin 0.40 mg/dL (0.1-1.2) 08/17/21 02:07 AST 11 units/L (5-40) 08/17/21 02:07 ALT < 5 units/L (7-56) L 08/17/21 02:07 Alkaline Phosphatase 182 units/L (35-129) H 08/17/21 02:07 NT-Pro-B Natriuret Pep 26123 pg/mL (0-450) H 08/17/21 02:07 Total Protein 7.8 g/dL (6.3-8.2) 08/17/21 02:07 Albumin 3.9 g/dL (3.9-5) 08/17/21 02:07 Albumin/Globulin Ratio 1.0 % 08/17/21 02:07 Triglycerides 128 mg/dL (2-149) 08/17/21 14:40 Cholesterol 128 mg/dL (50-199) 08/17/21 14:40 LDL Cholesterol Direct 69 mg/dL (50-130) 08/17/21 14:40 HDL Cholesterol 30 mg/dL (40-59) L 08/17/21 14:40 Cholesterol/HDL Ratio 4.26 % 08/17/21 14:40 TSH 5.080 mlU/mL (0.270-4.200) H 08/17/21 02:07 Salicylates < 0.3 mg/dL (2.8-20.0) L 08/17/21 02:07 Acetaminophen 5.0 ug/mL (10.0-30.0) L 08/17/21 02:07 Plasma/Serum Alcohol < 0.01 % (0-0.07) 08/17/21 02:07 SARS-CoV-2 (PCR) Negative (Negative) 08/17/21 09:12 Hepatitis A IgM Ab Non-reactive (NonReactive) 08/17/21 14:40 Hep Bs Antigen Non-reactive (Negative) 08/17/21 14:40 Hep B Core IgM Ab Non-reactive (NonReactive) 08/17/21 14:40 Hepatitis C Antibody Non-reactive (NonReactive) 08/17/21 14:40 Blood Type O POSITIVE 08/17/21 17:43 Antibody Screen Negative 08/17/21 17:43 Microbiology: Microbiology 08/17/21 17:47 Peripheral/Venous Blood Culture - Preliminary NO GROWTH AFTER 48 HOURS 08/17/21 15:00 Peripheral/Venous Blood Culture - Preliminary NO GROWTH AFTER 48 HOURS Tomas/IV: Voiding Method Incontinent Active Medications - Current Medications Current Medications: Generic Name Dose Route Start Last Admin Trade Name Freq PRN Reason Stop Dose Admin Acetaminophen 650 mg 08/17/21 07:50 Acetaminophen 325 Mg Tab PO Q6H PRN Pain, Mild (1-3) Acetaminophen 650 mg 08/17/21 08:17 08/17/21 14:49 Acetaminophen 650 Mg Rect Supp NJ 650 mg Q4H PRN Administration Pain, Mild (1-3) Aspirin 325 mg 08/18/21 10:00 08/19/21 09:56 Aspirin Ec 325 Mg Tab PO Not Given QDAY HAM Dextrose 50 ml 08/17/21 23:37 Dextrose 50% In Water (25gm) 50 Ml Syringe IV Q30MIN PRN Hypoglycemia Protocol Famotidine 20 mg 08/20/21 10:00 Famotidine 20 Mg Tab FEEDTUBE QDAY HAM Haloperidol Lactate 5 mg 08/19/21 12:00 08/19/21 16:14 Haloperidol Lactate 5 Mg/1 Ml Inj IV 5 mg Q6H PRN Administration Agitation Heparin Sodium (Porcine) 5,000 unit 08/17/21 06:00 08/20/21 05:25 Heparin 5,000 Unit/1 Ml Vial SUB-Q 5,000 unit Q8HR HAM Administration Heparin Sodium (Porcine) 3,000 unit 08/17/21 07:41 Heparin 10,000 Units/10 Ml Vial IV KATI PRN hemodialysis Hydralazine HCl 100 mg 08/17/21 09:00 08/19/21 19:10 Hydralazine 100 Mg Tab PO 100 mg TID HAM Administration Hydralazine HCl 10 mg 08/17/21 07:56 08/20/21 05:34 Hydralazine 20 Mg/1 Ml Inj IV 10 mg Q4HR PRN Administration Hypertension Hydromorphone HCl 0.25 mg 08/17/21 07:50 08/20/21 05:40 Hydromorphone 0.5 Mg/0.5 Ml Inj IV 0.25 mg Q4H PRN Administration Pain, Moderate (4-6) Daptomycin 500 mg/ Sodium 100 mls @ 200 mls/hr 08/17/21 15:00 08/19/21 18:06 Chloride IV 200 mls/hr Q48H HAM Administration Protocol Sodium Chloride 100 mls @ 999 mls/hr 08/18/21 10:08 Nacl 0.9% IV KATI PRN Hypotension Cefepime HCl 1 gm in 100 mls @ 200 mls/hr 08/19/21 18:00 08/19/21 18:06 Cefepime/Ns 1 Gm/100 Ml IV 200 mls/hr QPM HAM Administration Protocol Levetiracetam 500 mg/ Dextrose 105 mls @ 400 mls/hr 08/18/21 15:00 08/19/21 10:03 IV 400 mls/hr DAILY HAM Administration Insulin Glargine 15 units 08/19/21 15:59 08/19/21 23:01 Insulin Glargine 100 Units/Ml SUB-Q 15 units QHS HAM Administration Insulin Human Lispro 0 unit 08/18/21 00:00 08/20/21 06:24 Insulin Lispro 100 Unit/Ml SUB-Q 8 unit Q6HR HAM Administration Protocol Labetalol HCl 10 mg 08/19/21 16:27 08/19/21 18:05 Labetalol 20 Mg/4 Ml Inj IV 10 mg Q4HR PRN Administration Hypertension Levothyroxine Sodium 62.5 mcg 08/18/21 15:00 08/20/21 05:27 Levothyroxine 100 Mcg Inj IV 62.5 mcg DAILY@0600 HAM Administration Losartan Potassium 50 mg 08/17/21 10:00 08/19/21 14:18 Losartan 50 Mg Tab PO 50 mg QDAY HAM Administration Magnesium Hydroxide 30 ml 08/17/21 04:09 Magnesium Hydroxide (Mom) Oral Liqd Udc PO Q4H PRN Constipation Ondansetron HCl 4 mg 08/17/21 04:09 Ondansetron 4 Mg/2 Ml Inj IV Q8H PRN Nausea And Vomiting Sodium Chloride 10 ml 08/17/21 10:00 08/19/21 22:39 Sodium Chloride 0.9% 10 Ml Flush Syringe IV 10 ml BID HAM Administration Sodium Chloride 10 ml 08/17/21 04:09 08/19/21 02:59 Sodium Chloride 0.9% 10 Ml Flush Syringe IV 10 ml PRN PRN Administration LINE FLUSH Nutrition/Malnutrition Assess - Dietary Evaluation Nutrition/Malnutrition Findings: Nutrition Notes Start: 08/17/21 12:51 Freq: Status: Active Protocol: Document 08/19/21 12:45 LOLY (Rec: 08/19/21 13:03 NHALL [id number]) Nutrition Notes Need for Assessment generated from: MD Order Initial or Follow up Assessment Current Diagnosis CKD (stage V CKD),Diabetes, Hypertension,Stroke Other Pertinent Diagnosis DKA, Acute metabolic encephalopathy Labs/Tests BUN 57 Cr 10.2 A1C 10.2 Pertinent Medications Reviewed Height 5 ft 8 in Weight 104.32 kg [place] Body Weight (kg) 63.63 BMI 34.9 Weight Status Obese Subjective/Other Information RD consulted for TF. Per [employer]CH[employer] MANAGER evaluation this am, pt resistant to taking PO; will re-attempt in 24hrs. Burn Absent Trauma Absent Difficulty In Swallowing Minimum of two criteria No #1 Nutrition Diagnosis Inadequate oral intake Etiology AMS As Evidenced by Signs and Symptoms pt NPO at this time Is patient on ventilator? No Is Patient Ambulatory and/or Out of Bed No REE-([facility]-confined to bed) 2098.920 Kcal/Kg value to use for calculation 16 Approximate Energy Requirements Using 1669 kcal/Kg Additional Notes Pro needs >1.2g/kg adjBW: > 101g/day Fluid needs 1-1.5L/day Nutrition Intervention Nutrition Support: Nepro at 40ml/hr with 150ml water flush q4h. Kcal 1,728 Protein (gm) 78 Carbohydrates (gm) 155 Fat (gm) 92 Fluid (mL) 698 Fiber (gm) 12 Goal #1 TF tolerance Goal #2 TF to meet at least 75% energy and pro needs Anticipated Discharge Needs: Unable to identify at this time Follow-Up By: 08/22/21 Additional Comments F/U: new TF, [employer]CH[employer] MANAGER re-evaluation
[2021-08-19] MEDS ORDERED: LORazepam 2 MG/ML VIAL IV SCH (11:30)
--- NOTE | 2021-08-19 11:33 | Progress Note ---
Assessment and Plan Assessment and Plan 41-year-old female with known history of CVA, end-stage renal disease on dialysis on Mondays, Wednesdays and Fridays, diabetes mellitus brought into the emergency room accompanied by family for evaluation of changes in mental status which was said to have started at about 8 PM yesterday. Blood glucose was said to have been checked at home and reading was said to be high. There has been no nausea or vomiting, no diarrhea no complaints of abdominal pain. No chest pain or shortness of breath. Most of the history was obtained from family who was by the bedside as patient is unable to give any history at this time. Patient was said to have missed a dialysis on Sunday because she had not been feeling quite well. Work-up in the emergency room today, labs shows blood glucose of 533, anion gap of 28, BUN of 61 and creatinine of 10.3. CT of the head reveals no acute abnormality. - Patient Problems #Acute encephalopathy -Pt. is with poorly controlled Diabetes -Hx of ESRD on Dialysis -no sedation , -today is more esponsive move R>L with right decrease corneal reflex -legs jerking bilateral -- improved -R/O Seizure-- EEG diffuse slowing and possible PLM--Repeat EEG today--Talked to her mom according to her daughter is found unresponsive at home with foaming from mouth no hx of seizure -- she is started yesterday on Keppra ,due to eyes deviation to left and lack of response -MRI brain remarkable for old right MCA/YESSENIA infarct -EEG today is pending -Seizure precaution -Correct underlying infection/electrolytes abnormalities/Dialysis -started on ASA 325 daily -LDL#69 -Echo cardiogram is pending -US carotid is pending # DKA (diabetic ketoacidosis) -ketoacidosis without coma -Patient admitted and placed on insulin drip and IV fluid. -Will monitor Accu-Cheks closely. # End stage renal disease on dialysis -Consult will be placed to the ed case manager for possible dialysis. -Patient is dialysis on Mondays, Wednesdays and Fridays. # hx of CVA -left side weakness -start on ASA ,add lipitor -Lipid profil,LDL is pending -Echo #Hx of DVT -was on Coumadin -US LEs is noted -Leave decision to restart Coumadin to PCP # HTN ,Poorly controlled -201/84 -Control BP<150/85 after review MRI R/O CVA -CT brain is unremarkable # Hypothyroidism -We will continue routine home medications. Monitor TSH. # DVT prophylaxis -Patient placed on subcutaneous heparin. # Full code status -Patient is full code. PLAN 1- EEG repeat Today 2- MRI brain noted no acute event 3-ASA 325 mg daily and Lipitor 40 mg 4- Dialysis 5- Control BS 6- Control BP 7- Keppra 500 mg daily 8- Review echo and US carotid 9- she was on Coumadine? 10- case D/W Mom today Aziza Roman#[phone]. Explained to mom findings on MRI and Possible seizure . will follow Subjective Date of service: 08/19/21 Principal diagnosis: encephalopathy Interval history: More interactive today eyes not deviated to left follows only simple command, left side weakness and increase tone , MRI brain today No acute event -remote right MCA and YESSENIA infarct and old lacunar infarct Dialysis BP#160/73-- improved EEG diffuse slowing possible periodic movment -- review repeat EEG today. on ASA -- was on Coumadin LDL#69 Echo is pending lipitor 40 mg Placed on Keppra 500 mg daily Objective - Vital Sign Vital Signs - 12hr 08/18/21 08/18/21 08/18/21 23:31 23:41 23:51 Temperature Pulse Rate 87 79 82 Pulse Rate [ From Monitor] Respiratory 14 15 13 Rate Blood Pressure 177/60 177/60 183/65 O2 Sat by Pulse 97 96 96 Oximetry 08/19/21 08/19/21 08/19/21 00:00 00:01 00:11 Temperature 98.4 F Pulse Rate 87 88 92 H Pulse Rate [ From Monitor] Respiratory 14 13 11 L Rate Blood Pressure 184/95 184/95 184/95 O2 Sat by Pulse 98 98 97 Oximetry 08/19/21 08/19/21 08/19/21 00:21 00:31 00:41 Temperature Pulse Rate 91 H 93 H 99 H Pulse Rate [ From Monitor] Respiratory 14 12 17 Rate Blood Pressure 185/100 184/92 184/92 O2 Sat by Pulse 97 98 97 Oximetry 08/19/21 08/19/21 08/19/21 00:51 01:01 01:11 Temperature Pulse Rate 96 H 98 H 90 Pulse Rate [ From Monitor] Respiratory 17 15 19 Rate Blood Pressure 184/92 180/69 180/69 O2 Sat by Pulse 97 96 96 Oximetry 08/19/21 08/19/21 08/19/21 01:21 01:31 01:41 Temperature Pulse Rate 89 95 H 93 H Pulse Rate [ From Monitor] Respiratory 17 15 16 Rate Blood Pressure 193/70 197/61 197/61 O2 Sat by Pulse 96 96 95 Oximetry 08/19/21 08/19/21 08/19/21 01:50 01:51 02:00 Temperature Pulse Rate 93 H 89 86 Pulse Rate [ From Monitor] Respiratory 15 18 Rate Blood Pressure 188/71 188/71 O2 Sat by Pulse 97 97 Oximetry 08/19/21 08/19/21 08/19/21 02:01 02:11 02:21 Temperature Pulse Rate 85 80 80 Pulse Rate [ From Monitor] Respiratory 13 15 16 Rate Blood Pressure 188/71 188/71 179/62 O2 Sat by Pulse 96 95 95 Oximetry 08/19/21 08/19/21 08/19/21 02:31 02:41 02:51 Temperature Pulse Rate 84 86 82 Pulse Rate [ From Monitor] Respiratory 13 13 13 Rate Blood Pressure 174/61 174/61 184/60 O2 Sat by Pulse 98 97 97 Oximetry 08/19/21 08/19/21 08/19/21 03:00 03:11 03:21 Temperature Pulse Rate 88 89 82 Pulse Rate [ From Monitor] Respiratory 16 17 17 Rate Blood Pressure 202/71 202/71 210/63 O2 Sat by Pulse 97 97 95 Oximetry 08/19/21 08/19/21 08/19/21 03:31 03:41 03:51 Temperature Pulse Rate 90 92 H 90 Pulse Rate [ From Monitor] Respiratory 17 15 19 Rate Blood Pressure 197/69 197/69 164/57 O2 Sat by Pulse 98 97 97 Oximetry 08/19/21 08/19/21 08/19/21 04:00 04:01 04:11 Temperature 98.8 F Pulse Rate 86 91 H 89 Pulse Rate [ From Monitor] Respiratory 18 18 16 Rate Blood Pressure 162/57 162/57 O2 Sat by Pulse 97 96 97 Oximetry 08/19/21 08/19/21 08/19/21 04:21 04:30 04:41 Temperature Pulse Rate 90 90 86 Pulse Rate [ From Monitor] Respiratory 16 15 16 Rate Blood Pressure 156/54 154/83 154/83 O2 Sat by Pulse 97 97 96 Oximetry 08/19/21 08/19/21 08/19/21 04:51 05:01 05:11 Temperature Pulse Rate 84 91 H 81 Pulse Rate [ From Monitor] Respiratory 17 17 16 Rate Blood Pressure 157/56 157/56 196/77 O2 Sat by Pulse 96 98 95 Oximetry 08/19/21 08/19/21 08/19/21 05:21 05:31 05:41 Temperature Pulse Rate 85 89 86 Pulse Rate [ From Monitor] Respiratory 18 19 17 Rate Blood Pressure 182/57 191/65 191/65 O2 Sat by Pulse 97 97 95 Oximetry 08/19/21 08/19/21 08/19/21 05:51 06:01 06:11 Temperature Pulse Rate 85 95 H 92 H Pulse Rate [ From Monitor] Respiratory 15 16 17 Rate Blood Pressure 185/66 162/59 162/59 O2 Sat by Pulse 96 97 96 Oximetry 08/19/21 08/19/21 08/19/21 06:21 06:30 06:41 Temperature Pulse Rate 91 H 89 92 H Pulse Rate [ From Monitor] Respiratory 15 18 18 Rate Blood Pressure 150/54 136/47 162/59 O2 Sat by Pulse 97 96 97 Oximetry 08/19/21 08/19/21 08/19/21 06:51 07:00 07:11 Temperature Pulse Rate 93 H 91 H 88 Pulse Rate [ From Monitor] Respiratory 17 19 20 Rate Blood Pressure 154/62 160/49 150/54 O2 Sat by Pulse 97 98 97 Oximetry 08/19/21 08/19/21 08/19/21 07:21 07:31 07:41 Temperature Pulse Rate 88 91 H 90 Pulse Rate [ From Monitor] Respiratory 16 16 15 Rate Blood Pressure 179/65 165/52 165/52 O2 Sat by Pulse 97 100 98 Oximetry 08/19/21 08/19/21 08/19/21 07:51 08:00 08:01 Temperature 98.7 F Pulse Rate 95 H 89 Pulse Rate [ 91 H From Monitor] Respiratory 14 16 Rate Blood Pressure 161/62 176/89 O2 Sat by Pulse 97 96 96 Oximetry 08/19/21 08/19/21 08/19/21 08:11 08:21 08:31 Temperature Pulse Rate 90 91 H 96 H Pulse Rate [ From Monitor] Respiratory 16 10 L 12 Rate Blood Pressure 165/52 163/66 179/73 O2 Sat by Pulse 96 90 99 Oximetry 08/19/21 08/19/21 08/19/21 08:41 08:51 09:01 Temperature Pulse Rate 92 H 97 H 98 H Pulse Rate [ From Monitor] Respiratory 15 17 21 Rate Blood Pressure 179/73 181/93 181/93 O2 Sat by Pulse 98 97 98 Oximetry 08/19/21 08/19/21 08/19/21 09:11 09:21 09:30 Temperature Pulse Rate 91 H 91 H 99 H Pulse Rate [ From Monitor] Respiratory 19 15 14 Rate Blood Pressure 192/66 199/75 208/86 O2 Sat by Pulse 97 99 98 Oximetry 08/19/21 08/19/21 08/19/21 09:41 09:51 10:01 Temperature Pulse Rate 95 H 95 H 97 H Pulse Rate [ From Monitor] Respiratory 19 21 23 Rate Blood Pressure 208/86 203/145 197/72 O2 Sat by Pulse 97 98 96 Oximetry 08/19/21 08/19/21 08/19/21 10:04 10:11 10:21 Temperature Pulse Rate 95 H 94 H 95 H Pulse Rate [ From Monitor] Respiratory 16 17 Rate Blood Pressure 197/72 197/72 188/68 O2 Sat by Pulse 98 98 Oximetry 08/19/21 08/19/21 08/19/21 10:31 10:41 10:51 Temperature Pulse Rate 99 H 96 H 96 H Pulse Rate [ From Monitor] Respiratory 19 17 19 Rate Blood Pressure 188/163 188/163 153/57 O2 Sat by Pulse 97 99 96 Oximetry 08/19/21 11:00 Temperature Pulse Rate 95 H Pulse Rate [ From Monitor] Respiratory 17 Rate Blood Pressure 174/72 O2 Sat by Pulse 96 Oximetry - General Apperance Constitutional: comfortable - EENT EENT: PERRL, mucous membranes moist - Respiratory Respiratory: lungs clear, rhonchi - Cardiovascular Cardiovascular: normal S1, normal S2 Extremities: no peripheral edema bilat, no clubbing, cyanosis - Gastrointestinal Gastrointestinal: normoactive bowel sounds - Integumentary Integumentary: normal - Neurologic Cranial nerve examination: PERRL, EOMI, facial droop, other (eyes deviation improved today ) Detailed motor examination: other (left side stiffness unchanged move right side freely ) - Laboratory Findings CBC and BMP: 08/19/21 04:37 08/19/21 04:37 Abnormal Lab Findings: Abnormal Labs 0508/17/21 08/17/21 00:33 00:33 02:07 MCH RDW 19.7 H Lymph % (Auto) 10.5 L [place] % (Auto) Lymph # (Auto) 1.1 L Seg Neutrophils % 79.1 H Seg Neutrophils # 8.6 H D-Dimer Sodium 132 L 134 L Chloride 87.8 L 88.4 L Carbon Dioxide 21 L BUN 61 H 61 H Creatinine 10.1 H 10.3 H Glucose 594 H* 533 H* POC Glucose Hemoglobin A1c Phosphorus ALT < 5 L Alkaline Phosphatase 182 H NT-Pro-B Natriuret Pep 93694 H HDL Cholesterol TSH Salicylates Acetaminophen 08/17/21 08/17/21 08/17/21 02:07 02:07 02:07 MCH RDW Lymph % (Auto) [place] % (Auto) Lymph # (Auto) Seg Neutrophils % Seg Neutrophils # D-Dimer Sodium Chloride Carbon Dioxide BUN Creatinine Glucose POC Glucose Hemoglobin A1c Phosphorus ALT Alkaline Phosphatase NT-Pro-B Natriuret Pep HDL Cholesterol TSH 5.080 H Salicylates < 0.3 L Acetaminophen 5.0 L 08/17/21 08/17/21 08/17/21 04:20 04:20 05:09 MCH RDW Lymph % (Auto) [place] % (Auto) Lymph # (Auto) Seg Neutrophils % Seg Neutrophils # D-Dimer Sodium 136 L Chloride 90.9 L Carbon Dioxide BUN 61 H Creatinine 10.4 H Glucose 351 H POC Glucose 298 H Hemoglobin A1c Phosphorus 6.20 H ALT Alkaline Phosphatase NT-Pro-B Natriuret Pep HDL Cholesterol TSH Salicylates Acetaminophen 08/17/21 08/17/21 08/17/21 09:58 10:53 13:14 MCH RDW Lymph % (Auto) [place] % (Auto) Lymph # (Auto) Seg Neutrophils % Seg Neutrophils # D-Dimer Sodium Chloride Carbon Dioxide BUN Creatinine Glucose POC Glucose 139 H 162 H 145 H Hemoglobin A1c Phosphorus ALT Alkaline Phosphatase NT-Pro-B Natriuret Pep HDL Cholesterol TSH Salicylates Acetaminophen 08/17/21 08/17/21 08/17/21 14:40 14:40 14:40 MCH RDW Lymph % (Auto) [place] % (Auto) Lymph # (Auto) Seg Neutrophils % Seg Neutrophils # D-Dimer 2695.37 H Sodium Chloride 96.7 L Carbon Dioxide BUN 63 H Creatinine 10.7 H Glucose 145 H POC Glucose Hemoglobin A1c Phosphorus ALT Alkaline Phosphatase NT-Pro-B Natriuret Pep HDL Cholesterol 30 L TSH Salicylates Acetaminophen 08/17/21 08/17/21 08/17/21 14:40 16:45 17:47 MCH RDW Lymph % (Auto) [place] % (Auto) Lymph # (Auto) Seg Neutrophils % Seg Neutrophils # D-Dimer Sodium Chloride 96.2 L Carbon Dioxide BUN 44 H Creatinine 7.2 H Glucose 167 H POC Glucose 136 H 165 H Hemoglobin A1c Phosphorus ALT Alkaline Phosphatase NT-Pro-B Natriuret Pep HDL Cholesterol TSH Salicylates Acetaminophen 08/17/21 08/17/21 08/17/21 18:01 21:01 22:40 MCH RDW Lymph % (Auto) [place] % (Auto) Lymph # (Auto) Seg Neutrophils % Seg Neutrophils # D-Dimer Sodium Chloride 97.1 L 96.4 L Carbon Dioxide BUN 39 H 40 H Creatinine 8.0 H 8.5 H Glucose 122 H 109 H POC Glucose 172 H Hemoglobin A1c Phosphorus ALT Alkaline Phosphatase NT-Pro-B Natriuret Pep HDL Cholesterol TSH Salicylates Acetaminophen 08/17/21 08/18/21 08/18/21 22:40 02:13 04:56 MCH 27 L RDW 19.7 H Lymph % (Auto) [place] % (Auto) Lymph # (Auto) Seg Neutrophils % Seg Neutrophils # D-Dimer Sodium Chloride 96.8 L Carbon Dioxide BUN 44 H Creatinine 9.3 H Glucose 170 H POC Glucose 190 H Hemoglobin A1c Phosphorus 6.70 H ALT Alkaline Phosphatase NT-Pro-B Natriuret Pep HDL Cholesterol TSH Salicylates Acetaminophen 08/18/21 08/18/21 08/18/21 04:56 04:56 17:01 MCH 27 L RDW 19.7 H Lymph % (Auto) [place] % (Auto) 9.7 H Lymph # (Auto) Seg Neutrophils % Seg Neutrophils # D-Dimer Sodium Chloride Carbon Dioxide BUN Creatinine Glucose POC Glucose 228 H Hemoglobin A1c 10.2 H Phosphorus ALT Alkaline Phosphatase NT-Pro-B Natriuret Pep HDL Cholesterol TSH Salicylates Acetaminophen 08/18/21 08/19/21 08/19/21 23:58 04:37 04:37 MCH 27 L RDW 19.5 H Lymph % (Auto) [place] % (Auto) Lymph # (Auto) Seg Neutrophils % Seg Neutrophils # D-Dimer Sodium Chloride 96.7 L Carbon Dioxide 21 L BUN 57 H Creatinine 10.2 H Glucose 151 H POC Glucose 192 H Hemoglobin A1c Phosphorus ALT Alkaline Phosphatase NT-Pro-B Natriuret Pep HDL Cholesterol TSH Salicylates Acetaminophen
--- NOTE | 2021-08-19 12:49 | Progress Note ---
Assessment and Plan Possible Sepsis- high grade fevers, tachycardia, acute encephalopathy, tachypnea DKA (Diabetic Ketoacidosis) Acute Metabolic Encephalopathy h/o CVA (cerebral infarction) with left-sided deficits End Stage renal Disease(ESRD) on HD HTN (Hypertension) h/o Hypothyroidism -Titrate supplemental oxygen to keep SpO2 89-92% -Aspiration precautions, -Place NGT for enteric nutrtional support -Vascular service to assess her AVG- it appears it has clotted -Supportive HD per Renal -Antibiotics per ID, de-escalate based on culture data and clinical response -Monitor hemodynamics closely -Monitor blood glucose, avoid hypoglycemia -VTE prophylaxis- heparin -Mobility per facility protocol to avoid pressure ulcers - Resume home Synthroid onceNGT placement is confirmed USS of the lower extremity shows chronic thrombus. She has not been on Coumadin for years. At this time there is no indication for acute anticoagulation- if her AVG has clotted, she may need ocean transportation intermediary anticoagulation for graft patency Can transfer to telemetry CONDITION:FAIR PROGNOSIS: GUARDED CODE STATUS: FULL CODE Discussed care plan with nursing care team, pharmacy and primary service Subjective Date of service: 08/19/21 Principal diagnosis: encephalopathy Interval history: Follow up: DKA; acute encephaloapthy Seen and examined. Vitals, labs, medications, chart reviewed. Discussed with RN- no acute overnight events. AVF not functioning, she required a temporary HD catheter for HD Remains NPO- aspiration risk Transitioned to subcut insulin therapy Objective Vital Signs - 12hr 08/19/21 08/19/21 08/19/21 00:51 01:01 01:11 Temperature Pulse Rate 96 H 98 H 90 Pulse Rate [ From Monitor] Respiratory 17 15 19 Rate Blood Pressure 184/92 180/69 180/69 O2 Sat by Pulse 97 96 96 Oximetry 08/19/21 08/19/21 08/19/21 01:21 01:31 01:41 Temperature Pulse Rate 89 95 H 93 H Pulse Rate [ From Monitor] Respiratory 17 15 16 Rate Blood Pressure 193/70 197/61 197/61 O2 Sat by Pulse 96 96 95 Oximetry 08/19/21 08/19/21 08/19/21 01:50 01:51 02:00 Temperature Pulse Rate 93 H 89 86 Pulse Rate [ From Monitor] Respiratory 15 18 Rate Blood Pressure 188/71 188/71 O2 Sat by Pulse 97 97 Oximetry 08/19/21 08/19/21 08/19/21 02:01 02:11 02:21 Temperature Pulse Rate 85 80 80 Pulse Rate [ From Monitor] Respiratory 13 15 16 Rate Blood Pressure 188/71 188/71 179/62 O2 Sat by Pulse 96 95 95 Oximetry 08/19/21 08/19/21 08/19/21 02:31 02:41 02:51 Temperature Pulse Rate 84 86 82 Pulse Rate [ From Monitor] Respiratory 13 13 13 Rate Blood Pressure 174/61 174/61 184/60 O2 Sat by Pulse 98 97 97 Oximetry 08/19/21 08/19/21 08/19/21 03:00 03:11 03:21 Temperature Pulse Rate 88 89 82 Pulse Rate [ From Monitor] Respiratory 16 17 17 Rate Blood Pressure 202/71 202/71 210/63 O2 Sat by Pulse 97 97 95 Oximetry 08/19/21 08/19/21 08/19/21 03:31 03:41 03:51 Temperature Pulse Rate 90 92 H 90 Pulse Rate [ From Monitor] Respiratory 17 15 19 Rate Blood Pressure 197/69 197/69 164/57 O2 Sat by Pulse 98 97 97 Oximetry 08/19/21 08/19/21 08/19/21 04:00 04:01 04:11 Temperature 98.8 F Pulse Rate 86 91 H 89 Pulse Rate [ From Monitor] Respiratory 18 18 16 Rate Blood Pressure 162/57 162/57 O2 Sat by Pulse 97 96 97 Oximetry 08/19/21 08/19/21 08/19/21 04:21 04:30 04:41 Temperature Pulse Rate 90 90 86 Pulse Rate [ From Monitor] Respiratory 16 15 16 Rate Blood Pressure 156/54 154/83 154/83 O2 Sat by Pulse 97 97 96 Oximetry 08/19/21 08/19/21 08/19/21 04:51 05:01 05:11 Temperature Pulse Rate 84 91 H 81 Pulse Rate [ From Monitor] Respiratory 17 17 16 Rate Blood Pressure 157/56 157/56 196/77 O2 Sat by Pulse 96 98 95 Oximetry 08/19/21 08/19/21 08/19/21 05:21 05:31 05:41 Temperature Pulse Rate 85 89 86 Pulse Rate [ From Monitor] Respiratory 18 19 17 Rate Blood Pressure 182/57 191/65 191/65 O2 Sat by Pulse 97 97 95 Oximetry 05/27/22 05/27/22 05/27/22 05:51 06:01 06:11 Temperature Pulse Rate 85 95 H 92 H Pulse Rate [ From Monitor] Respiratory 15 16 17 Rate Blood Pressure 185/66 162/59 162/59 O2 Sat by Pulse 96 97 96 Oximetry 08/19/21 08/19/21 08/19/21 06:21 06:30 06:41 Temperature Pulse Rate 91 H 89 92 H Pulse Rate [ From Monitor] Respiratory 15 18 18 Rate Blood Pressure 150/54 136/47 162/59 O2 Sat by Pulse 97 96 97 Oximetry 08/19/21 08/19/21 08/19/21 06:51 07:00 07:11 Temperature Pulse Rate 93 H 91 H 88 Pulse Rate [ From Monitor] Respiratory 17 19 20 Rate Blood Pressure 154/62 160/49 150/54 O2 Sat by Pulse 97 98 97 Oximetry 08/19/21 08/19/21 08/19/21 07:21 07:31 07:41 Temperature Pulse Rate 88 91 H 90 Pulse Rate [ From Monitor] Respiratory 16 16 15 Rate Blood Pressure 179/65 165/52 165/52 O2 Sat by Pulse 97 100 98 Oximetry 08/19/21 08/19/21 08/19/21 07:51 08:00 08:01 Temperature 98.7 F Pulse Rate 95 H 89 Pulse Rate [ 91 H From Monitor] Respiratory 14 16 Rate Blood Pressure 161/62 176/89 O2 Sat by Pulse 97 96 96 Oximetry 08/19/21 08/19/21 08/19/21 08:11 08:21 08:31 Temperature Pulse Rate 90 91 H 96 H Pulse Rate [ From Monitor] Respiratory 16 10 L 12 Rate Blood Pressure 165/52 163/66 179/73 O2 Sat by Pulse 96 90 99 Oximetry 08/19/21 08/19/21 08/19/21 08:41 08:51 09:01 Temperature Pulse Rate 92 H 97 H 98 H Pulse Rate [ From Monitor] Respiratory 15 17 21 Rate Blood Pressure 179/73 181/93 181/93 O2 Sat by Pulse 98 97 98 Oximetry 08/19/21 08/19/21 08/19/21 09:11 09:21 09:30 Temperature Pulse Rate 91 H 91 H 99 H Pulse Rate [ From Monitor] Respiratory 19 15 14 Rate Blood Pressure 192/66 199/75 208/86 O2 Sat by Pulse 97 99 98 Oximetry 08/19/21 08/19/21 08/19/21 09:41 09:51 10:01 Temperature Pulse Rate 95 H 95 H 97 H Pulse Rate [ From Monitor] Respiratory 19 21 23 Rate Blood Pressure 208/86 203/145 197/72 O2 Sat by Pulse 97 98 96 Oximetry 08/19/21 08/19/21 08/19/21 10:04 10:11 10:21 Temperature Pulse Rate 95 H 94 H 95 H Pulse Rate [ From Monitor] Respiratory 16 17 Rate Blood Pressure 197/72 197/72 188/68 O2 Sat by Pulse 98 98 Oximetry 08/19/21 08/19/21 08/19/21 10:31 10:41 10:51 Temperature Pulse Rate 99 H 96 H 96 H Pulse Rate [ From Monitor] Respiratory 19 17 19 Rate Blood Pressure 188/163 188/163 153/57 O2 Sat by Pulse 97 99 96 Oximetry 08/19/21 11:00 Temperature Pulse Rate 95 H Pulse Rate [ From Monitor] Respiratory 17 Rate Blood Pressure 174/72 O2 Sat by Pulse 96 Oximetry Constitutional: lethargic, other (minimally responsive, on supplemetnal oxygen) Eyes: non-icteric ENT: oropharynx dry Neck: supple, no lymphadenopathy Effort: mildly labored Ascultation: Bilateral: clear, diminished breath sounds Cardiovascular: regular rate and rhythm, other (S1,S2) Gastrointestinal: normoactive bowel sounds, soft, non-tender, other (obese) Integumentary: normal Extremities: no cyanosis, no edema Neurologic: pupils equal and round, unable to assess (moves all extremities, not obeying commands) Psychiatric: other (Unable to assess mood or affect secondary to mental status) CBC and BMP: 08/19/21 04:37 08/21/21 04:45 ABG, PT/INR, D-dimer: PT/INR, D-dimer PT 13.7 Sec. (12.2-14.9) 08/17/21 02:07 INR 0.95 (0.87-1.13) 08/17/21 02:07 D-Dimer 2695.37 ng/mlDDU (0-234) H 08/17/21 14:40 Abnormal lab findings: Abnormal Labs 08/17/21 08/17/21 08/17/21 00:33 00:33 02:07 MCH RDW 19.7 H Lymph % (Auto) 10.5 L [place] % (Auto) Lymph # (Auto) 1.1 L Seg Neutrophils % 79.1 H Seg Neutrophils # 8.6 H D-Dimer Sodium 132 L 134 L Chloride 87.8 L 88.4 L Carbon Dioxide 21 L BUN 61 H 61 H Creatinine 10.1 H 10.3 H Glucose 594 H* 533 H* POC Glucose Hemoglobin A1c Phosphorus ALT < 5 L Alkaline Phosphatase 182 H NT-Pro-B Natriuret Pep 30951 H HDL Cholesterol TSH Salicylates Acetaminophen 08/17/21 08/17/21 08/17/21 02:07 02:07 02:07 MCH RDW Lymph % (Auto) [place] % (Auto) Lymph # (Auto) Seg Neutrophils % Seg Neutrophils # D-Dimer Sodium Chloride Carbon Dioxide BUN Creatinine Glucose POC Glucose Hemoglobin A1c Phosphorus ALT Alkaline Phosphatase NT-Pro-B Natriuret Pep HDL Cholesterol TSH 5.080 H Salicylates < 0.3 L Acetaminophen 5.0 L 08/17/21 08/17/21 08/17/21 04:20 04:20 05:09 MCH RDW Lymph % (Auto) [place] % (Auto) Lymph # (Auto) Seg Neutrophils % Seg Neutrophils # D-Dimer Sodium 136 L Chloride 90.9 L Carbon Dioxide BUN 61 H Creatinine 10.4 H Glucose 351 H POC Glucose 298 H Hemoglobin A1c Phosphorus 6.20 H ALT Alkaline Phosphatase NT-Pro-B Natriuret Pep HDL Cholesterol TSH Salicylates Acetaminophen 08/17/21 08/17/21 08/17/21 09:58 10:53 13:14 MCH RDW Lymph % (Auto) [place] % (Auto) Lymph # (Auto) Seg Neutrophils % Seg Neutrophils # D-Dimer Sodium Chloride Carbon Dioxide BUN Creatinine Glucose POC Glucose 139 H 162 H 145 H Hemoglobin A1c Phosphorus ALT Alkaline Phosphatase NT-Pro-B Natriuret Pep HDL Cholesterol TSH Salicylates Acetaminophen 08/17/21 08/17/21 08/17/21 14:40 14:40 14:40 MCH RDW Lymph % (Auto) [place] % (Auto) Lymph # (Auto) Seg Neutrophils % Seg Neutrophils # D-Dimer 2695.37 H Sodium Chloride 96.7 L Carbon Dioxide BUN 63 H Creatinine 10.7 H Glucose 145 H POC Glucose Hemoglobin A1c Phosphorus ALT Alkaline Phosphatase NT-Pro-B Natriuret Pep HDL Cholesterol 30 L TSH Salicylates Acetaminophen 08/17/21 08/17/21 08/17/21 14:40 16:45 17:47 MCH RDW Lymph % (Auto) [place] % (Auto) Lymph # (Auto) Seg Neutrophils % Seg Neutrophils # D-Dimer Sodium Chloride 96.2 L Carbon Dioxide BUN 44 H Creatinine 7.2 H Glucose 167 H POC Glucose 136 H 165 H Hemoglobin A1c Phosphorus ALT Alkaline Phosphatase NT-Pro-B Natriuret Pep HDL Cholesterol TSH Salicylates Acetaminophen 08/17/21 08/17/21 08/17/21 18:01 21:01 22:40 MCH RDW Lymph % (Auto) [place] % (Auto) Lymph # (Auto) Seg Neutrophils % Seg Neutrophils # D-Dimer Sodium Chloride 97.1 L 96.4 L Carbon Dioxide BUN 39 H 40 H Creatinine 8.0 H 8.5 H Glucose 122 H 109 H POC Glucose 172 H Hemoglobin A1c Phosphorus ALT Alkaline Phosphatase NT-Pro-B Natriuret Pep HDL Cholesterol TSH Salicylates Acetaminophen 08/17/21 08/18/21 08/18/21 22:40 02:13 04:56 MCH 27 L RDW 19.7 H Lymph % (Auto) [place] % (Auto) Lymph # (Auto) Seg Neutrophils % Seg Neutrophils # D-Dimer Sodium Chloride 96.8 L Carbon Dioxide BUN 44 H Creatinine 9.3 H Glucose 170 H POC Glucose 190 H Hemoglobin A1c Phosphorus 6.70 H ALT Alkaline Phosphatase NT-Pro-B Natriuret Pep HDL Cholesterol TSH Salicylates Acetaminophen 08/18/21 08/18/21 08/18/21 04:56 04:56 17:01 MCH 27 L RDW 19.7 H Lymph % (Auto) [place] % (Auto) 9.7 H Lymph # (Auto) Seg Neutrophils % Seg Neutrophils # D-Dimer Sodium Chloride Carbon Dioxide BUN Creatinine Glucose POC Glucose 228 H Hemoglobin A1c 10.2 H Phosphorus ALT Alkaline Phosphatase NT-Pro-B Natriuret Pep HDL Cholesterol TSH Salicylates Acetaminophen 08/18/21 08/19/21 08/19/21 23:58 04:37 04:37 MCH 27 L RDW 19.5 H Lymph % (Auto) [place] % (Auto) Lymph # (Auto) Seg Neutrophils % Seg Neutrophils # D-Dimer Sodium Chloride 96.7 L Carbon Dioxide 21 L BUN 57 H Creatinine 10.2 H Glucose 151 H POC Glucose 192 H Hemoglobin A1c Phosphorus ALT Alkaline Phosphatase NT-Pro-B Natriuret Pep HDL Cholesterol TSH Salicylates Acetaminophen Chest x-ray: image reviewed
--- NOTE | 2021-08-19 14:05 | XRay Report ---
ABDOMEN 1 VIEW INDICATION / CLINICAL INFORMATION: Confirmation of Feeding tube. COMPARISON: None available. FINDINGS: Weighted tip enteric catheter projects over the distal stomach. Bowel gas pattern is nonobstructive. No free air. Cholecystomy clips. Signer Name: Patrick Gasca MD Signed: 08/19/2021 2:01 PM Workstation Name: [id number]
--- NOTE | 2021-08-19 14:49 | Vascular Lab Report ---
DUPLEX DOPPLER ULTRASOUND CAROTID, BILATERAL INDICATION / CLINICAL INFORMATION: cva. COMPARISON: None available. FINDINGS: RIGHT CAROTID: - PLAQUE ESTIMATE (%): < 50% - CCA velocity: 157 cm/sec. - ICA peak systolic velocity: 122 cm/sec. - ICA/CCA PSV Ratio: Less than 2 Right Vertebral Artery: Antegrade flow. LEFT CAROTID: - PLAQUE ESTIMATE: < 50% - CCA velocity: 179 cm/sec. - ICA peak systolic velocity: 113 cm/sec. - ICA/CCA PSV Ratio: Less than 2 Left Vertebral Artery: Antegrade flow. IMPRESSION: 1. Right Internal Carotid Artery: Less than 50% diameter stenosis. 2. Left Internal Carotid Artery: Less than 50% diameter stenosis. Velocity criteria are extrapolated from diameter data as defined by the Society of Radiologists in Ul trasound Consensus Conference, Radiology 2003; 229;340-346. NO STENOSIS (NORMAL) * Plaque = none; ICA PSV < 125 cm/sec; ICA/CCA PSV Ratio < 2.0 <50% STENOSIS * Plaque < 50%; ICA PSV < 125 cm/sec; ICA/CCA PSV Ratio < 2.0 50-69% STENOSIS * Plaque > 50%; ICA PSV = 125-230 cm/sec; ICA/CCA PSV Ratio = 2.0-4.0 >70% BUT <100% STENOSIS * Plaque > 50%; ICA PSV > 230 cm/sec; ICA/CCA PSV Ratio > 4.0 NEAR OCCLUSION * Plaque = visible lumen; ICA PSV = high/low/none; ICA/CCA PSV Ratio = variable TOTAL OCCLUSION * Plaque = no lumen; ICA PSV = none; ICA/CCA PSV Ratio = N/A Signer Name: Patrick Gasca MD Signed: 08/19/2021 2:45 PM Workstation Name: [id number]
--- NOTE | 2021-08-19 15:28 | Progress Note ---
Assessment and Plan Cultures: Blood cultures no growth so far A/P: 41-year-old female past medical history CVA, ESRD on HD, diabetes now with: #SIRS versus sepsis: With fevers, tachycardia, tachypnea. Unclear source at present. #DKA: Currently on ICU with insulin drip. #Acute encephalopathy: Possibly secondary to DKA. #ESRD on HD: Renally dose medications Recs: -Follow-up blood cultures. -Continue vancomycin empirically as she is HD patient and at risk of bacteremia. -Continue renally dosed cefepime. Thank you for the consult, we will continue to follow. Cole Tamayo MD [facility] ([facility]) O: [phone] F: [phone] Subjective Date of service: 08/19/21 Principal diagnosis: encephalopathy Interval history: Afebrile, normal white count. Blood cultures remain negative so far. Imaging personally reviewed: Abdominal x-ray: Nonobstructive bowel gas pattern. Objective - Exam Narrative Exam: Physical Exam: Constitutional: Awake, confused Head, Ears, Nose: Normocephalic, atraumatic. External ears, nose normal Eyes: Conjunctivae/corneas clear. No icterus. No ptosis. Neck: Supple, no meningeal signs Oral: dentition fair, no thrush Cardiovascular: S1, S2 normal. Respiratory: Good air entry, clear to auscultation bilaterally GI: Soft, non-tender; bowel sounds normal. No peritoneal signs. Musculoskeletal: No pedal edema, no cyanosis. Skin: No rash or abscess Hem/Lymphatic: No palpable cervical or supraclavicular nodes. No lymphangitis Psych: Confused Neurological: Confused awake - Constitutional Vitals: Vital Signs Temp Pulse Resp BP Pulse Ox 98.2 F 100 H 19 174/68 98 08/19/21 12:00 08/19/21 14:18 08/19/21 14:00 08/19/21 14:18 08/19/21 14:00 Temperature -Last 24 Hours Temperature 98.2 F Temperature 98.7 F Temperature 98.8 F Temperature 98.4 F Temperature 98.1 F Temperature 97.8 F - Labs CBC & Chem 7: 08/19/21 04:37 08/19/21 04:37 Labs: Abnormal lab results 08/18/21 08/18/21 08/19/21 Range/Units 17:01 23:58 04:37 MCH 27 L (28-32) pg RDW 19.5 H (13.2-15.2) % Chloride (98-107) mmol/L Carbon Dioxide (22-30) mmol/L BUN (7-17) mg/dL Creatinine (0.6-1.2) mg/dL Glucose (65-100) mg/dL POC Glucose 228 H 192 H (70-105) mg/dL 08/19/21 Range/Units 04:37 MCH (28-32) pg RDW (13.2-15.2) % Chloride 96.7 L (98-107) mmol/L Carbon Dioxide 21 L (22-30) mmol/L BUN 57 H (7-17) mg/dL Creatinine 10.2 H (0.6-1.2) mg/dL Glucose 151 H (65-100) mg/dL POC Glucose (70-105) mg/dL
[2021-08-19] MEDS: HALOPERIDOL LACTATE 5 MG/1 ML INJ IV PRN (16:14)
--- NOTE | 2021-08-19 17:31 | Consultation ---
History of Present Illness - Reason for Consult Consult date: 08/19/21 Complications of Dialysis Access Requesting physician: ADAM WORKMAN Past History Past Medical History: dialysis, DVT, ESRD, hypertension, migraines, stroke Past Surgical History: No surgical history Social history: no significant social history Family history: diabetes, hypertension Medications and Allergies Allergies Allergy/AdvReac Type Severity Reaction Status Date / Time vancomycin AdvReac Hives Verified 04/02/13 10:16 Home Medications Medication Instructions Recorded Confirmed Last Taken Type Hydralazine HCl [hydrALAZINE] 100 mg PO BID 04/02/13 08/17/21 04/02/13 08:00 History Aspirin/Dipyridamole [Aggrenox] 1 cap PO BID #60 capsule 04/10/13 08/17/21 Unknown Rx Cinacalcet [Sensipar] 60 mg PO QDAY 08/17/21 08/17/21 Unknown History Citalopram [celeXA] 20 mg PO QDAY 08/17/21 08/17/21 Unknown History Ergocalciferol [Vitamin D2] 1 cap PO QWEEK 08/17/21 08/17/21 Unknown History Gabapentin [Neurontin] 100 mg PO Q8HR 08/17/21 08/17/21 Unknown History Insulin Glargine,Hum.rec.anlog 55 unit SQ BID 08/17/21 08/17/21 Unknown History [Lantus Solostar] Promethazine [Phenergan] 25 mg PO Q6HR PRN 08/17/21 08/17/21 Unknown History Sevelamer Carbonate [Renvela] 800 mg PO TIDWM 08/17/21 08/17/21 Unknown History amLODIPine [Norvasc] 10 mg PO DAILY 08/17/21 08/17/21 Unknown History carvediloL [Coreg] 25 mg PO BID 08/17/21 08/17/21 Unknown History cloNIDine [Catapres] 0.2 mg PO BID 08/17/21 08/17/21 Unknown History Active Meds: Active Medications Acetaminophen (Acetaminophen 325 Mg Tab) 650 mg PO Q6H PRN PRN Reason: Pain, Mild (1-3) Acetaminophen (Acetaminophen 650 Mg Rect Supp) 650 mg FL Q4H PRN PRN Reason: Pain, Mild (1-3) Last Admin: 08/17/21 14:49 Dose: 650 mg Aspirin (Aspirin Ec 325 Mg Tab) 325 mg PO QDAY [facility] Last Admin: 08/19/21 09:56 Dose: Not Given Dextrose (Dextrose 50% In Water (25gm) 50 Ml Syringe) 50 ml IV Q30MIN PRN; Protocol PRN Reason: Hypoglycemia Famotidine (Famotidine 20 Mg/2 Ml Inj) 20 mg IV QDAY [facility] Last Admin: 08/19/21 10:03 Dose: 20 mg Famotidine (Famotidine 20 Mg Tab) 20 mg FEEDTUBE QDAY HAM Haloperidol Lactate (Haloperidol Lactate 5 Mg/1 Ml Inj) 5 mg IV Q6H PRN PRN Reason: Agitation Last Admin: 08/19/21 16:14 Dose: 5 mg Heparin Sodium (Porcine) (Heparin 5,000 Unit/1 Ml Vial) 5,000 unit SUB-Q Q8HR [facility] Last Admin: 08/19/21 14:17 Dose: 5,000 unit Heparin Sodium (Porcine) (Heparin 10,000 Units/10 Ml Vial) 3,000 unit IV KATI PRN PRN Reason: hemodialysis Hydralazine HCl (Hydralazine 100 Mg Tab) 100 mg PO TID [facility] Last Admin: 08/19/21 14:18 Dose: 100 mg Hydralazine HCl (Hydralazine 20 Mg/1 Ml Inj) 10 mg IV Q4HR PRN PRN Reason: Hypertension Last Admin: 08/19/21 10:04 Dose: 10 mg Hydromorphone HCl (Hydromorphone 0.5 Mg/0.5 Ml Inj) 0.25 mg IV Q4H PRN PRN Reason: Pain, Moderate (4-6) Last Admin: 08/18/21 22:32 Dose: 0.25 mg Daptomycin 500 mg/ Sodium (Chloride) 100 mls @ 200 mls/hr IV Q48H [facility]; Protocol Last Admin: 08/17/21 14:47 Dose: 200 mls/hr Sodium Chloride (Nacl 0.9%) 100 mls @ 999 mls/hr IV KATI PRN PRN Reason: Hypotension Cefepime HCl (Cefepime/Ns 1 Gm/100 Ml) 1 gm in 100 mls @ 200 mls/hr IV QPM [facility]; Protocol Levetiracetam 500 mg/ Dextrose 105 mls @ 400 mls/hr IV DAILY [facility] Last Admin: 08/19/21 10:03 Dose: 400 mls/hr Insulin Glargine (Insulin Glargine 100 Units/Ml) 15 units SUB-Q QHS [facility] Insulin Human Lispro (Insulin Lispro 100 Unit/Ml) 0 unit SUB-Q Q6HR [facility]; Protocol Last Admin: 08/19/21 11:42 Dose: 2 unit Labetalol HCl (Labetalol 20 Mg/4 Ml Inj) 10 mg IV Q4HR PRN PRN Reason: Hypertension Levothyroxine Sodium (Levothyroxine 100 Mcg Inj) 62.5 mcg IV DAILY@0600 [facility] Last Admin: 08/19/21 06:17 Dose: 62.5 mcg Losartan Potassium (Losartan 50 Mg Tab) 50 mg PO QDAY [facility] Last Admin: 08/19/21 14:18 Dose: 50 mg Magnesium Hydroxide (Magnesium Hydroxide (Mom) Oral Liqd Udc) 30 ml PO Q4H PRN PRN Reason: Constipation Ondansetron HCl (Ondansetron 4 Mg/2 Ml Inj) 4 mg IV Q8H PRN PRN Reason: Nausea And Vomiting Sodium Chloride (Sodium Chloride 0.9% 10 Ml Flush Syringe) 10 ml IV BID [facility] Last Admin: 08/19/21 10:04 Dose: 10 ml Sodium Chloride (Sodium Chloride 0.9% 10 Ml Flush Syringe) 10 ml IV PRN PRN PRN Reason: LINE FLUSH Last Admin: 08/19/21 02:59 Dose: 10 ml Exam - Constitutional Vitals: Temp Pulse Resp BP Pulse Ox 98.2 F 104 H 26 H 194/98 97 08/19/21 15:00 08/19/21 17:15 08/19/21 16:00 08/19/21 17:15 08/19/21 16:00 Results - Labs CBC & Chem 7: 08/19/21 04:37 08/19/21 04:37 Labs: Abnormal lab results 08/18/21 08/19/21 08/19/21 Range/Units 23:58 04:37 04:37 MCH 27 L (28-32) pg RDW 19.5 H (13.2-15.2) % Chloride 96.7 L (98-107) mmol/L Carbon Dioxide 21 L (22-30) mmol/L BUN 57 H (7-17) mg/dL Creatinine 10.2 H (0.6-1.2) mg/dL Glucose 151 H (65-100) mg/dL POC Glucose 192 H (70-105) mg/dL
[2021-08-19] MEDS: CEFEPIME/NS 1 GM/100 ML 1 GM/100 ML BAG IV SCH (18:06)
[2021-08-19] MEDS: INSULIN GLARGINE 100 UNITS/ML SUB-Q SCH (23:01)
[2021-08-20] MEDS: INSULIN LISPRO 100 UNIT/ML SUB-Q SCH ×5 (00:11→23:32)
[2021-08-20] MEDS: HEPARIN 5,000 UNIT/1 ML VIAL SUB-Q SCH ×3 (05:25→21:05)
[2021-08-20] MEDS: LEVOTHYROXINE 100 MCG INJ IV SCH (05:27)
[2021-08-20] MEDS: hydrALAZINE 20 MG/1 ML INJ IV PRN ×4 (05:34→23:39)
[2021-08-20] MEDS: HYDROmorphone 0.5 MG/0.5 ML INJ IV PRN (05:40)
[2021-08-20] MEDS: hydrALAZINE 100 MG TAB PO SCH ×3 (08:46→21:04)
--- NOTE | 2021-08-20 09:00 | Progress Note ---
Assessment and Plan 1. ESRD: Patient is on maintenance HD, MWF schedule. Last outpatient HD 08/12/21. Meds dosage based on GFR. Hemodialysis: 08/17, 08/19. 2. FEN: Metabolic acidosis, s/p HD, monitor. UF with HD as tolerated. Monitor lytes and volume status. 3. Diabetic Hyperosmolar State, POA: S/p Insulin gtt. Per protocol. 4. Malfunctioning hemodialysis access: Patient presented with no functioning hemodialysis access. S/p R femoral non-tunnel catheter. Vascular consulted. 5. Acute Metabolic Encephalopathy, POA: 2/[address] head and MRI brain negative. Followed by Neuro. 6. SIRS versus sepsis: Unclear source at present. Abx per ID. 7. HTN: Monitor BP. Subjective: Patient was seen and examined at the bedside. Nurse at the bedside. Examination: General appearance: well-developed, well-nourished, appears stated age, no distress HEENT: ATNC, pupils equal Neck: trachea midline Respiratory: Clear to Auscultation Cardiology: regular, S1S2, no murmur Gastrointestinal: soft, normoactive bowel sounds, not tender, ND Integumentary: no rash Neurologic: lethargic, restrains, tracking thru eyes, non-verbal, not following any command Ext: no edema noted Hemodialysis access: R femoral non-tunnel catheter Subjective Date of service: 08/20/21 Principal diagnosis: encephalopathy Objective - Vital Signs Vital signs: Vital Signs - 12hr 08/19/21 08/19/21 08/19/21 22:53 23:00 23:04 Temperature 98.1 F Pulse Rate 106 H 106 H Respiratory 20 Rate Blood Pressure 193/106 193/106 O2 Sat by Pulse 100 100 Oximetry 08/20/21 08/20/21 08/20/21 00:00 04:00 04:42 Temperature 98.1 F 98.7 F 98.7 F Pulse Rate 106 H 104 H Respiratory 16 20 20 Rate Blood Pressure 219/89 219/89 O2 Sat by Pulse 98 99 99 Oximetry 08/20/21 08/20/21 05:34 07:23 Temperature 98.6 F Pulse Rate 104 H 114 H Respiratory 18 Rate Blood Pressure 219/89 192/92 O2 Sat by Pulse 100 Oximetry - Lab 08/19/21 04:37 08/20/21 04:24 Most recent lab results Calcium 10.0 mg/dL (8.4-10.2) 08/20/21 04:24 Phosphorus 6.50 mg/dL (2.5-4.5) H 08/20/21 04:24 Magnesium 2.00 mg/dL (1.7-2.3) 08/20/21 04:24 Medications & Allergies - Medications Allergies/Adverse Reactions: Allergies vancomycin Adverse Reaction (Verified 04/02/13 10:16) Hives Home Medications: Home Medications Medication Instructions Recorded Confirmed Last Taken Type Hydralazine HCl [hydrALAZINE] 100 mg PO BID 04/02/13 08/17/21 04/02/13 08:00 History Aspirin/Dipyridamole [Aggrenox] 1 cap PO BID #60 capsule 04/10/13 08/17/21 Unknown Rx Cinacalcet [Sensipar] 60 mg PO QDAY 08/17/21 08/17/21 Unknown History Citalopram [celeXA] 20 mg PO QDAY 08/17/21 08/17/21 Unknown History Ergocalciferol [Vitamin D2] 1 cap PO QWEEK 08/17/21 08/17/21 Unknown History Gabapentin [Neurontin] 100 mg PO Q8HR 08/17/21 08/17/21 Unknown History Insulin Glargine,Hum.rec.anlog 55 unit SQ BID 08/17/21 08/17/21 Unknown History [Lantus Solostar] Promethazine [Phenergan] 25 mg PO Q6HR PRN 08/17/21 08/17/21 Unknown History Sevelamer Carbonate [Renvela] 800 mg PO TIDWM 08/17/21 08/17/21 Unknown History amLODIPine [Norvasc] 10 mg PO DAILY 08/17/21 08/17/21 Unknown History carvediloL [Coreg] 25 mg PO BID 08/17/21 08/17/21 Unknown History cloNIDine [Catapres] 0.2 mg PO BID 08/17/21 08/17/21 Unknown History Active Medications: Generic Name Dose Route Start Last Admin Trade Name Freq PRN Reason Stop Dose Admin Acetaminophen 650 mg 08/17/21 07:50 Acetaminophen 325 Mg Tab PO Q6H PRN Pain, Mild (1-3) Acetaminophen 650 mg 08/17/21 08:17 08/17/21 14:49 Acetaminophen 650 Mg Rect Supp [place] 650 mg Q4H PRN Administration Pain, Mild (1-3) Aspirin 325 mg 08/18/21 10:00 08/19/21 09:56 Aspirin Ec 325 Mg Tab PO Not Given QDAY HAM Dextrose 50 ml 08/17/21 23:37 Dextrose 50% In Water (25gm) 50 Ml Syringe IV Q30MIN PRN Hypoglycemia Protocol Famotidine 20 mg 08/20/21 10:00 Famotidine 20 Mg Tab FEEDTUBE QDAY HAM Haloperidol Lactate 5 mg 08/19/21 12:00 08/19/21 16:14 Haloperidol Lactate 5 Mg/1 Ml Inj IV 5 mg Q6H PRN Administration Agitation Heparin Sodium (Porcine) 5,000 unit 08/17/21 06:00 08/20/21 05:25 Heparin 5,000 Unit/1 Ml Vial SUB-Q 5,000 unit Q8HR HAM Administration Heparin Sodium (Porcine) 3,000 unit 08/17/21 07:41 Heparin 10,000 Units/10 Ml Vial IV KATI PRN hemodialysis Hydralazine HCl 100 mg 08/17/21 09:00 08/19/21 19:10 Hydralazine 100 Mg Tab PO 100 mg TID HAM Administration Hydralazine HCl 10 mg 08/17/21 07:56 08/20/21 05:34 Hydralazine 20 Mg/1 Ml Inj IV 10 mg Q4HR PRN Administration Hypertension Hydromorphone HCl 0.25 mg 08/17/21 07:50 08/20/21 05:40 Hydromorphone 0.5 Mg/0.5 Ml Inj IV 0.25 mg Q4H PRN Administration Pain, Moderate (4-6) Daptomycin 500 mg/ Sodium 100 mls @ 200 mls/hr 08/17/21 15:00 08/19/21 18:06 Chloride IV 200 mls/hr Q48H HAM Administration Protocol Sodium Chloride 100 mls @ 999 mls/hr 08/18/21 10:08 Nacl 0.9% IV KATI PRN Hypotension Cefepime HCl 1 gm in 100 mls @ 200 mls/hr 08/19/21 18:00 08/19/21 18:06 Cefepime/Ns 1 Gm/100 Ml IV 200 mls/hr QPM HAM Administration Protocol Levetiracetam 500 mg/ Dextrose 105 mls @ 400 mls/hr 08/18/21 15:00 08/19/21 10:03 IV 400 mls/hr DAILY HAM Administration Insulin Glargine 15 units 08/19/21 15:59 08/19/21 23:01 Insulin Glargine 100 Units/Ml SUB-Q 15 units QHS HAM Administration Insulin Human Lispro 0 unit 08/18/21 00:00 08/20/21 06:24 Insulin Lispro 100 Unit/Ml SUB-Q 8 unit Q6HR HAM Administration Protocol Labetalol HCl 10 mg 08/19/21 16:27 08/19/21 18:05 Labetalol 20 Mg/4 Ml Inj IV 10 mg Q4HR PRN Administration Hypertension Levothyroxine Sodium 62.5 mcg 08/18/21 15:00 08/20/21 05:27 Levothyroxine 100 Mcg Inj IV 62.5 mcg DAILY@0600 HAM Administration Losartan Potassium 50 mg 08/17/21 10:00 08/19/21 14:18 Losartan 50 Mg Tab PO 50 mg QDAY HAM Administration Magnesium Hydroxide 30 ml 08/17/21 04:09 Magnesium Hydroxide (Mom) Oral Liqd Udc PO Q4H PRN Constipation Ondansetron HCl 4 mg 08/17/21 04:09 Ondansetron 4 Mg/2 Ml Inj IV Q8H PRN Nausea And Vomiting Sodium Chloride 10 ml 08/17/21 10:00 08/19/21 22:39 Sodium Chloride 0.9% 10 Ml Flush Syringe IV 10 ml BID HAM Administration Sodium Chloride 10 ml 08/17/21 04:09 08/19/21 02:59 Sodium Chloride 0.9% 10 Ml Flush Syringe IV 10 ml PRN PRN Administration LINE FLUSH
--- NOTE | 2021-08-20 09:27 | Progress Note ---
Assessment and Plan Assessment and Plan 41-year-old female with known history of CVA, end-stage renal disease on dialysis on Mondays, Wednesdays and Fridays, diabetes mellitus brought into the emergency room accompanied by family for evaluation of changes in mental status which was said to have started at about 8 PM yesterday. Blood glucose was said to have been checked at home and reading was said to be high. There has been no nausea or vomiting, no diarrhea no complaints of abdominal pain. No chest pain or shortness of breath. Most of the history was obtained from family who was by the bedside as patient is unable to give any history at this time. Patient was said to have missed a dialysis on Sunday because she had not been feeling quite well. Work-up in the emergency room today, labs shows blood glucose of 533, anion gap of 28, BUN of 61 and creatinine of 10.3. CT of the head reveals no acute abnormality. - Patient Problems #Acute encephalopathy -Pt. is with poorly controlled Diabetes -Hx of ESRD on Dialysis -no sedation , -today is more esponsive move R>L with right decrease corneal reflex -legs jerking bilateral -- improved -R/O Seizure-- EEG diffuse slowing and possible PLM--Repeat EEG today--Talked to her mom according to her daughter is found unresponsive at home with foaming from mouth no hx of seizure -- she is started yesterday on Keppra ,due to eyes deviation to left and lack of response -MRI brain remarkable for old right MCA/YESSENIA infarct -EEG today is with slowing 4-5 hz and triphasic waves mostly related to ESRD -Seizure precaution -Correct underlying infection/electrolytes abnormalities/Dialysis -started on ASA 325 daily -LDL#69 -Echo cardiogram is pending -US carotid<50% bilateral # DKA (diabetic ketoacidosis) -ketoacidosis without coma -Patient admitted and placed on insulin drip and IV fluid. -Will monitor Accu-Cheks closely. # End stage renal disease on dialysis -Consult will be placed to the parcel post delivery for possible dialysis. -Patient is dialysis on Mondays, Wednesdays and Fridays. # hx of CVA -left side weakness -start on ASA ,add lipitor -Lipid profil,LDL is #69 -Echo is pending #Hx of DVT -was on Coumadin -US LEs is noted -Leave decision to restart Coumadin to PCP # HTN ,Poorly controlled -201/84-- better controlled -Control BP<150/85 after review MRI R/O CVA -CT brain is unremarkable # Hypothyroidism -We will continue routine home medications. Monitor TSH. # DVT prophylaxis -Patient placed on subcutaneous heparin. # Full code status -Patient is full code. PLAN 1-ASA 325 mg daily and Lipitor 40 mg 2- Dialysis 3- Control BS 4- Control BP 5- Keppra 500 mg daily -- change to po 6- Review echo 7- she was on Coumadine? US Les is noted 8- Pt therapy/PO intake evaluation case D/W Mom today Aziza Roman#[phone]. Explained to mom findings on MRI and Possible seizure . will follow Subjective Date of service: 08/20/21 Principal diagnosis: encephalopathy Interval history: More alert no eyes deviation , not responding to command follow me with her eyes , left side contracture MRI brain today No acute event -remote right MCA and YESSENIA infarct and old lacunar infarct Dialysis BP#160/73-- improved EEG diffuse slowing possible periodic movment -- review repeat EEG showed 4-5 Hz with recurrent triphasic waves mostly related to ESRD/Dialysis on ASA -- was on Coumadin LDL#69 Echo is pending US carotid<50% lipitor 40 mg Placed on Keppra 500 mg daily-- will change to po Objective - Vital Sign Vital Signs - 12hr 08/19/21 08/19/21 08/19/21 22:53 23:00 23:04 Temperature 98.1 F Pulse Rate 106 H 106 H Respiratory 20 Rate Blood Pressure 193/106 193/106 O2 Sat by Pulse 100 100 Oximetry 08/20/21 08/20/21 08/20/21 00:00 04:00 04:42 Temperature 98.1 F 98.7 F 98.7 F Pulse Rate 106 H 104 H Respiratory 16 20 20 Rate Blood Pressure 219/89 219/89 O2 Sat by Pulse 98 99 99 Oximetry 08/20/21 08/20/21 05:34 07:23 Temperature 98.6 F Pulse Rate 104 H 114 H Respiratory 18 Rate Blood Pressure 219/89 192/92 O2 Sat by Pulse 100 Oximetry - General Apperance Constitutional: comfortable - EENT EENT: PERRL, mucous membranes moist - Respiratory Respiratory: lungs clear, rhonchi - Cardiovascular Cardiovascular: regular rate, normal S1, normal S2 Extremities: no peripheral edema bilat, no clubbing, cyanosis - Gastrointestinal Gastrointestinal: normoactive bowel sounds - Integumentary Integumentary: normal - Neurologic Cranial nerve examination: PERRL, EOMI, facial droop Speech examination: other ([place] no speech output today not answear questions !!!) Detailed motor examination: other (left sided contracture upper and lower unchanged) - Laboratory Findings CBC and BMP: 08/19/21 04:37 08/20/21 04:24 Abnormal Lab Findings: Abnormal Labs 08/17/21 08/17/21 08/17/21 00:33 00:33 02:07 MCH RDW 19.7 H Lymph % (Auto) 10.5 L [place] % (Auto) Lymph # (Auto) 1.1 L Seg Neutrophils % 79.1 H Seg Neutrophils # 8.6 H D-Dimer Sodium 132 L 134 L Chloride 87.8 L 88.4 L Carbon Dioxide 21 L BUN 61 H 61 H Creatinine 10.1 H 10.3 H Glucose 594 H* 533 H* POC Glucose Hemoglobin A1c Phosphorus ALT < 5 L Alkaline Phosphatase 182 H NT-Pro-B Natriuret Pep 14825 H HDL Cholesterol TSH Salicylates Acetaminophen 08/17/21 08/17/21 08/17/21 02:07 02:07 02:07 MCH RDW Lymph % (Auto) [place] % (Auto) Lymph # (Auto) Seg Neutrophils % Seg Neutrophils # D-Dimer Sodium Chloride Carbon Dioxide BUN Creatinine Glucose POC Glucose Hemoglobin A1c Phosphorus ALT Alkaline Phosphatase NT-Pro-B Natriuret Pep HDL Cholesterol TSH 5.080 H Salicylates < 0.3 L Acetaminophen 5.0 L 08/17/21 08/17/21 08/17/21 04:20 04:20 05:09 MCH RDW Lymph % (Auto) [place] % (Auto) Lymph # (Auto) Seg Neutrophils % Seg Neutrophils # D-Dimer Sodium 136 L Chloride 90.9 L Carbon Dioxide BUN 61 H Creatinine 10.4 H Glucose 351 H POC Glucose 298 H Hemoglobin A1c Phosphorus 6.20 H ALT Alkaline Phosphatase NT-Pro-B Natriuret Pep HDL Cholesterol TSH Salicylates Acetaminophen 08/17/21 08/17/21 08/17/21 09:58 10:53 13:14 MCH RDW Lymph % (Auto) [place] % (Auto) Lymph # (Auto) Seg Neutrophils % Seg Neutrophils # D-Dimer Sodium Chloride Carbon Dioxide BUN Creatinine Glucose POC Glucose 139 H 162 H 145 H Hemoglobin A1c Phosphorus ALT Alkaline Phosphatase NT-Pro-B Natriuret Pep HDL Cholesterol TSH Salicylates Acetaminophen 08/17/21 08/17/21 08/17/21 14:40 14:40 14:40 MCH RDW Lymph % (Auto) [place] % (Auto) Lymph # (Auto) Seg Neutrophils % Seg Neutrophils # D-Dimer 2695.37 H Sodium Chloride 96.7 L Carbon Dioxide BUN 63 H Creatinine 10.7 H Glucose 145 H POC Glucose Hemoglobin A1c Phosphorus ALT Alkaline Phosphatase NT-Pro-B Natriuret Pep HDL Cholesterol 30 L TSH Salicylates Acetaminophen 08/17/21 08/17/21 08/17/21 14:40 16:45 17:47 MCH RDW Lymph % (Auto) [place] % (Auto) Lymph # (Auto) Seg Neutrophils % Seg Neutrophils # D-Dimer Sodium Chloride 96.2 L Carbon Dioxide BUN 44 H Creatinine 7.2 H Glucose 167 H POC Glucose 136 H 165 H Hemoglobin A1c Phosphorus ALT Alkaline Phosphatase NT-Pro-B Natriuret Pep HDL Cholesterol TSH Salicylates Acetaminophen 08/17/21 08/17/21 08/17/21 18:01 21:01 22:40 MCH RDW Lymph % (Auto) [place] % (Auto) Lymph # (Auto) Seg Neutrophils % Seg Neutrophils # D-Dimer Sodium Chloride 97.1 L 96.4 L Carbon Dioxide BUN 39 H 40 H Creatinine 8.0 H 8.5 H Glucose 122 H 109 H POC Glucose 172 H Hemoglobin A1c Phosphorus ALT Alkaline Phosphatase NT-Pro-B Natriuret Pep HDL Cholesterol TSH Salicylates Acetaminophen 08/17/21 08/18/21 08/18/21 22:40 02:13 04:56 MCH 27 L RDW 19.7 H Lymph % (Auto) [place] % (Auto) Lymph # (Auto) Seg Neutrophils % Seg Neutrophils # D-Dimer Sodium Chloride 96.8 L Carbon Dioxide BUN 44 H Creatinine 9.3 H Glucose 170 H POC Glucose 190 H Hemoglobin A1c Phosphorus 6.70 H ALT Alkaline Phosphatase NT-Pro-B Natriuret Pep HDL Cholesterol TSH Salicylates Acetaminophen 08/18/21 08/18/21 08/18/21 04:56 04:56 17:01 MCH 27 L RDW 19.7 H Lymph % (Auto) [place] % (Auto) 9.7 H Lymph # (Auto) Seg Neutrophils % Seg Neutrophils # D-Dimer Sodium Chloride Carbon Dioxide BUN Creatinine Glucose POC Glucose 228 H Hemoglobin A1c 10.2 H Phosphorus ALT Alkaline Phosphatase NT-Pro-B Natriuret Pep HDL Cholesterol TSH Salicylates Acetaminophen 08/18/21 08/19/21 08/19/21 23:58 04:37 04:37 MCH 27 L RDW 19.5 H Lymph % (Auto) [place] % (Auto) Lymph # (Auto) Seg Neutrophils % Seg Neutrophils # D-Dimer Sodium Chloride 96.7 L Carbon Dioxide 21 L BUN 57 H Creatinine 10.2 H Glucose 151 H POC Glucose 192 H Hemoglobin A1c Phosphorus ALT Alkaline Phosphatase NT-Pro-B Natriuret Pep HDL Cholesterol TSH Salicylates Acetaminophen 08/19/21 08/19/21 08/20/21 17:46 22:59 04:24 MCH RDW Lymph % (Auto) [place] % (Auto) Lymph # (Auto) Seg Neutrophils % Seg Neutrophils # D-Dimer Sodium 133 L Chloride 87.9 L Carbon Dioxide 15 L BUN 33 H Creatinine 7.3 H Glucose 365 H POC Glucose 217 H 282 H Hemoglobin A1c Phosphorus 6.50 H ALT Alkaline Phosphatase NT-Pro-B Natriuret Pep HDL Cholesterol TSH Salicylates Acetaminophen 08/20/21 08/20/21 06:07 07:51 MCH RDW Lymph % (Auto) [place] % (Auto) Lymph # (Auto) Seg Neutrophils % Seg Neutrophils # D-Dimer Sodium Chloride Carbon Dioxide BUN Creatinine Glucose POC Glucose 398 H 308 H Hemoglobin A1c Phosphorus ALT Alkaline Phosphatase NT-Pro-B Natriuret Pep HDL Cholesterol TSH Salicylates Acetaminophen
[2021-08-20] MEDS: LOSARTAN 50 MG TAB PO SCH (09:46)
[2021-08-20] MEDS: FAMOTIDINE 20 MG TAB FEEDTUBE SCH (09:46)
[2021-08-20] MEDS: ASPIRIN EC 325 MG TAB PO SCH (09:46)
[2021-08-20] MEDS: levETIRAcetam 500 MG TAB PO SCH (10:33)
[2021-08-20] MEDS ORDERED: SODIUM BICARB 8.4% 50 MEQ/50 ML SYRINGE IV ONE (11:00)
[2021-08-20] MEDS: METOPROLOL TARTRATE 100 MG TAB PO SCH ×2 (11:33→21:03)
--- NOTE | 2021-08-20 11:34 | Progress Note ---
Assessment and Plan This is a 41 year-old female with known past medical history of CVA, DVT, HTM, ESRD on HD(MWF), and type 2 diabetes mellitus admitted for DKA Hospital Course to Date: 08/17: Patient seen and examined at the bedside. Patient remains and obtunded, only arousable with stimuli. CT head noted with no acute abnormality. Neurology consulted. On 2L NC and able to protect her airway. Patient remains on insulin gtt per DKA protocol, BG is improving and anion gap most likely due to ESRD. Plan for HD today per Nephro, possible transition to subQ insulin post HD treatment. Patient is also febrile this am, VSS. Orders placed for blood cultures, empiric IV abx was initiated and ID was consulted. 08/18: Stable on RA this am. Awake and tracking, but not following commands. MRI brain pending, Neurology is also following. Transitioned to subQ insulin overnight, patient remains NPO due to mental status. PT/OT/Speech ordered. Patient RUE fistula clotted, Temp. Vascath inserted for HD. Vascular Surgery consulted for AVF eval and treat. BLE doppler noted. Per patient mother patient has not been on coumadin for a couple years, she was only on ASA. Patient might benefit from PO AC at discharge. Continue VTE proph, Heparin subq for now. 08/19: With left-side neglect. Awake and following commands on the right side onl y, but patient remains nonverbal. MRI brain and Neurology recs noted. C/f seizure now on Keppra per Neuro, EEG pending. Patient remains NPO, failed speech swallow due to mental status. Will insert DHT and initiate enteral nutrition. Continue PRN antihypertensives for now and resume PO antihypertensive therapy once DHT is placed. PRN Haldol added for agitation. D/w CCM patient is stable for transfer to Telemetry. 08/20: EEG today is with slowing 4-5 hz and triphasic waves mostly related to ESRD. Patient initiated on Keppra since yesterday. Pending 2D echocardiogram report. Patient appears to be more oriented and alert today. Continue to follow clinically, PT eval. BP noted to be elevated, initiated on home dose of clonidine and Norvasc. Continue to follow. Assessment and Plan #DKA (Diabetic Ketoacidosis) - Presented with elevated BG and anion gap metabolic acidosis - S/p DKA protocol - Hgb A1C 10.2 - Transitioned to SubQ insulin overnight - Continue SSI and BG Q6hrs since NPO - Lantus Qhs - Monitor and replace electrolytes as needed - Avoid Hypoglycemia #Possible Sepsis - High fevers this am, VSS, WBCs wnr - HD patient with AV-fistula, and h/o mcfp permacath which was removed a week ago - Blood cultures with NGTD - ID on consult, appreciated recommendations - Continue current IV abx per ID - Continue to F/U on B.cultures - Daily CBC monitor #End Stage renal Disease(ESRD) on HD - Nephrology on consult, appreciated recommendation - RUE AV-Fistula clotted, Temporary Vascath inserted - Continue HD per Nephro - Strict intake and output, patient is anuric - Avoid nephrotoxic medications; Renally dose medications - Monitor and replace electrolytes as needed - Vascular Surgery consulted for AVF eval and treat #Acute Metabolic Encephalopathy #H/o CVA (cerebral infarction) with left-sided deficits - Multifactorial, DKA vs azotemia vs infectious process - Awake and tracking, not following commands - CT head noted with mo acute abnormality - S/p DKA protocol, HD per Nephro, and on IV abx - MRI brain noted - Neurology consulted, appreciated recommendations - c/f seizure, Keppra initiated per Neuro - PRN Haldolo for agitation - Fall and safety precaution - Aspiration precaution - Frequent reorientation - Avoid benzodiazepine to reduce the possibility of delirium - Maintenance of sleep-wake cycle - PT/OT/Speech ordered #HTN (Hypertension) - Hypertensive this am, patient unable to take PO meds due to alerted mentation - PO antihypertensives held - PRN Hydralazine and Labetalol for SBP greater than 160 - Continue blood pressure monitor per protocol #Elevated D-Dimer #RUE AV fistula Clotted #H/o DVT - BLE doppler showed no evidence for acute DVT in either lower extremity. Chron ic appearing nonocclusive recanalized thrombosis of the left popliteal vein. - Per patient's mother, patient has been off coumadin for a couple of years - Continue Heparin SubQ - Patient might benefit from PO AC at discharge, awaiting Vascular surgery recommendations #Hypothyroidism - Resume home synthroid #Dysphagia - Patient failed speech eval due to mental status - Plan to insert DHT and initiate enteral nutrition - Nutrition Consulted for TF management #GI/ DVT Prophylaxis - PPI- Pepcid - Heparin SubQ - SCDs to bilateral lower extremities while in bed #Advance care planning - Disease education data, care plan, diagnoses, and prognosis were discussed with patient's mother-Angely Roman # . Patient is full code. Patient family knowledges understanding and agreement with care plan. Subjective Date of service: 08/20/21 Principal diagnosis: encephalopathy Interval history: Patient seen and examined. Medical records and medication list reviewed. No acute event overnight noted by the RN. Patient remains confused and unable to follow any command Discussed plan of care at bedside with patient's RN. Objective - Exam Narrative Exam: General appearance: Present: no acute distress, well-nourished, obese, confused - EENT Eyes: Present: PERRL - Neck Neck: Present: normal ROM - Respiratory Respiratory effort: normal Respiratory: bilateral: diminished - Cardiovascular Rhythm: regular Heart Sounds: Present: S1 & S2 - Extremities Extremities: no ischemia, pulses intact, pulses symmetrical Peripheral Pulses: within normal limits - Abdominal General gastrointestinal: soft, non-distended, normal bowel sounds - Integumentary Integumentary: Present: clear, warm, dry - Psychiatric Psychiatric: other (Awake, does not follow command. Nonverbal) - Neurologic Neurologic: focal deficits (Left side weakness and left side neglect), other (Awake, Nonverbal) - Allied Health Allied health notes reviewed: nursing, case management - Constitutional Vitals: Vital Signs - 12hr 08/20/21 08/20/21 08/20/21 00:00 04:00 04:42 Temperature 98.1 F 98.7 F 98.7 F Pulse Rate 106 H 104 H Respiratory 16 20 20 Rate Blood Pressure 219/89 219/89 O2 Sat by Pulse 98 99 99 Oximetry 08/20/21 08/20/21 08/20/21 05:34 07:23 09:46 Temperature 98.6 F Pulse Rate 104 H 114 H 114 H Respiratory 18 Rate Blood Pressure 219/89 192/92 192/92 O2 Sat by Pulse 100 Oximetry - Labs CBC & Chem 7: 08/19/21 04:37 08/21/21 04:45 Labs: Abnormal lab results 08/19/21 08/19/21 08/20/21 Range/Units 17:46 22:59 04:24 Sodium 133 L (137-145) mmol/L Chloride 87.9 L (98-107) mmol/L Carbon Dioxide 15 L (22-30) mmol/L BUN 33 H (7-17) mg/dL Creatinine 7.3 H (0.6-1.2) mg/dL Glucose 365 H (65-100) mg/dL POC Glucose 217 H 282 H (70-105) mg/dL Phosphorus 6.50 H (2.5-4.5) mg/dL 08/20/21 08/20/21 Range/Units 06:07 07:51 Sodium (137-145) mmol/L Chloride (98-107) mmol/L Carbon Dioxide (22-30) mmol/L BUN (7-17) mg/dL Creatinine (0.6-1.2) mg/dL Glucose (65-100) mg/dL POC Glucose 398 H 308 H (70-105) mg/dL Phosphorus (2.5-4.5) mg/dL
--- NOTE | 2021-08-20 15:57 | Progress Note ---
Assessment and Plan 41-year-old female with end-stage renal disease who was admitted for encephalopathy who is still encephalopathic. Has right femoral Vas-Cath placed. Right arm AV graft was functioning 8 days ago per outside vascular surgery and mother. Plan for AV graft thrombectomy on Sunday with possible PermCath placement. Risk, benefits, and alternatives discussed with mother who agrees with procedure. Subjective Date of service: 08/20/21 Principal diagnosis: encephalopathy Interval history: The patient continues to have encephalopathy. She had a right femoral Vas-Cath placed by the ICU. Vascular consulted for evaluation. Discussed with family who reported that the right arm AV graft was functioning [address] Delgadillo who confirmed this finding. Discussed with family risk, benefits, and alternatives for right arm AV graft t hrombectomy. Possible PermCath placement. This would be performed on Sunday. Family aware and agrees. Objective - Constitutional Vitals: Vital Signs - 12hr 08/20/21 08/20/21 08/20/21 04:00 04:42 05:34 Temperature 98.7 F 98.7 F Pulse Rate 104 H 104 H Respiratory 20 20 Rate Blood Pressure 219/89 219/89 219/89 O2 Sat by Pulse 99 99 Oximetry 08/20/21 08/20/21 08/20/21 07:23 08:00 09:46 Temperature 98.6 F Pulse Rate 114 H 114 H Respiratory 18 18 Rate Blood Pressure 192/92 192/92 O2 Sat by Pulse 100 98 Oximetry 08/20/21 12:00 Temperature Pulse Rate Respiratory 18 Rate Blood Pressure O2 Sat by Pulse 98 Oximetry General appearance: Present: other (Does not respond, nonverbal, randomly moves) - EENT ENT: other (Does not respond, nonverbal, randomly moves) - Neck Neck: supple - Respiratory Respiratory effort: normal Extremities: normal temperature, normal color, abnormal (Thrombosed b/l arm AV grafts) - Neurologic Neurologic: other (Does not follow simple commands) - Psychiatric Psychiatric: other (Does not respond, nonverbal, randomly moves) - Labs CBC & Chem 7: 08/19/21 04:37 08/20/21 04:24 Labs: Abnormal lab results 08/19/21 08/19/21 08/20/21 Range/Units 17:46 22:59 04:24 Sodium 133 L (137-145) mmol/L Chloride 87.9 L (98-107) mmol/L Carbon Dioxide 15 L (22-30) mmol/L BUN 33 H (7-17) mg/dL Creatinine 7.3 H (0.6-1.2) mg/dL Glucose 365 H (65-100) mg/dL POC Glucose 217 H 282 H (70-105) mg/dL Phosphorus 6.50 H (2.5-4.5) mg/dL 08/20/21 08/20/21 08/20/21 Range/Units 06:07 07:51 15:37 Sodium (137-145) mmol/L Chloride (98-107) mmol/L Carbon Dioxide (22-30) mmol/L BUN (7-17) mg/dL Creatinine (0.6-1.2) mg/dL Glucose (65-100) mg/dL POC Glucose 398 H 308 H 247 H (70-105) mg/dL Phosphorus (2.5-4.5) mg/dL Medications & Allergies - Medications Allergies/Adverse Reactions: Allergies vancomycin Adverse Reaction (Verified 04/02/13 10:16) Hives Home Medications: Home Medications Medication Instructions Recorded Confirmed Last Taken Type Hydralazine HCl [hydrALAZINE] 100 mg PO BID 04/02/13 08/17/21 04/02/13 08:00 History Aspirin/Dipyridamole [Aggrenox] 1 cap PO BID #60 capsule 04/10/13 08/17/21 Unknown Rx Cinacalcet [Sensipar] 60 mg PO QDAY 08/17/21 08/17/21 Unknown History Citalopram [celeXA] 20 mg PO QDAY 08/17/21 08/17/21 Unknown History Ergocalciferol [Vitamin D2] 1 cap PO QWEEK 08/17/21 08/17/21 Unknown History Gabapentin [Neurontin] 100 mg PO Q8HR 08/17/21 08/17/21 Unknown History Insulin Glargine,Hum.rec.anlog 55 unit SQ BID 08/17/21 08/17/21 Unknown History [Lantus Solostar] Promethazine [Phenergan] 25 mg PO Q6HR PRN 08/17/21 08/17/21 Unknown History Sevelamer Carbonate [Renvela] 800 mg PO TIDWM 08/17/21 08/17/21 Unknown History amLODIPine [Norvasc] 10 mg PO DAILY 08/17/21 08/17/21 Unknown History carvediloL [Coreg] 25 mg PO BID 08/17/21 08/17/21 Unknown History cloNIDine [Catapres] 0.2 mg PO BID 08/17/21 08/17/21 Unknown History Active Medications: Generic Name Dose Route Start Last Admin Trade Name Freq PRN Reason Stop Dose Admin Acetaminophen 650 mg 08/17/21 07:50 Acetaminophen 325 Mg Tab PO Q6H PRN Pain, Mild (1-3) Acetaminophen 650 mg 08/17/21 08:17 08/17/21 14:49 Acetaminophen 650 Mg Rect Supp [place] 650 mg Q4H PRN Administration Pain, Mild (1-3) Aspirin 325 mg 08/18/21 10:00 08/20/21 09:46 Aspirin Ec 325 Mg Tab PO 325 mg QDAY HAM Administration Dextrose 50 ml 08/17/21 23:37 Dextrose 50% In Water (25gm) 50 Ml Syringe IV Q30MIN PRN Hypoglycemia Protocol Famotidine 20 mg 08/20/21 10:00 08/20/21 09:46 Famotidine 20 Mg Tab FEEDTUBE 20 mg QDAY HAM Administration Haloperidol Lactate 5 mg 08/19/21 12:00 08/19/21 16:14 Haloperidol Lactate 5 Mg/1 Ml Inj IV 5 mg Q6H PRN Administration Agitation Heparin Sodium (Porcine) 5,000 unit 08/17/21 06:00 08/20/21 05:25 Heparin 5,000 Unit/1 Ml Vial SUB-Q 5,000 unit Q8HR HAM Administration Heparin Sodium (Porcine) 3,000 unit 08/17/21 07:41 Heparin 10,000 Units/10 Ml Vial IV KATI PRN hemodialysis Hydralazine HCl 100 mg 08/17/21 09:00 08/20/21 08:46 Hydralazine 100 Mg Tab PO 100 mg TID HAM Administration Hydralazine HCl 10 mg 08/17/21 07:56 08/20/21 12:34 Hydralazine 20 Mg/1 Ml Inj IV 10 mg Q4HR PRN Administration Hypertension Hydromorphone HCl 0.25 mg 08/17/21 07:50 08/20/21 05:40 Hydromorphone 0.5 Mg/0.5 Ml Inj IV 0.25 mg Q4H PRN Administration Pain, Moderate (4-6) Daptomycin 500 mg/ Sodium 100 mls @ 200 mls/hr 08/17/21 15:00 08/19/21 18:06 Chloride IV 200 mls/hr Q48H HAM Administration Protocol Sodium Chloride 100 mls @ 999 mls/hr 08/18/21 10:08 Nacl 0.9% IV KATI PRN Hypotension Cefepime HCl 1 gm in 100 mls @ 200 mls/hr 08/19/21 18:00 08/19/21 18:06 Cefepime/Ns 1 Gm/100 Ml IV 200 mls/hr QPM HAM Administration Protocol Insulin Glargine 15 units 08/19/21 15:59 08/19/21 23:01 Insulin Glargine 100 Units/Ml SUB-Q 15 units QHS HAM Administration Insulin Human Lispro 0 unit 08/18/21 00:00 08/20/21 06:24 Insulin Lispro 100 Unit/Ml SUB-Q 8 unit Q6HR HAM Administration Protocol Labetalol HCl 10 mg 08/19/21 16:27 08/19/21 18:05 Labetalol 20 Mg/4 Ml Inj IV 10 mg Q4HR PRN Administration Hypertension Levetiracetam 500 mg 08/20/21 10:00 08/20/21 10:33 Levetiracetam 500 Mg Tab PO 500 mg DAILY HAM Administration Levothyroxine Sodium 62.5 mcg 08/18/21 15:00 08/20/21 05:27 Levothyroxine 100 Mcg Inj IV 62.5 mcg DAILY@0600 HAM Administration Losartan Potassium 50 mg 08/17/21 10:00 08/20/21 09:46 Losartan 50 Mg Tab PO 50 mg QDAY HAM Administration Magnesium Hydroxide 30 ml 08/17/21 04:09 Magnesium Hydroxide (Mom) Oral Liqd Udc PO Q4H PRN Constipation Metoprolol Tartrate 100 mg 08/20/21 11:00 08/20/21 11:33 Metoprolol Tartrate 100 Mg Tab PO 100 mg BID HAM Administration Ondansetron HCl 4 mg 08/17/21 04:09 Ondansetron 4 Mg/2 Ml Inj IV Q8H PRN Nausea And Vomiting Sodium Chloride 10 ml 08/17/21 10:00 08/20/21 09:46 Sodium Chloride 0.9% 10 Ml Flush Syringe IV 10 ml BID HAM Administration Sodium Chloride 10 ml 08/17/21 04:09 08/19/21 02:59 Sodium Chloride 0.9% 10 Ml Flush Syringe IV 10 ml PRN PRN Administration LINE FLUSH
[2021-08-20] MEDS: ACETAMINOPHEN 325 MG TAB PO PRN ×2 (16:00→21:03)
[2021-08-20] MEDS: CEFEPIME/NS 1 GM/100 ML 1 GM/100 ML BAG IV SCH (18:38)
--- NOTE | 2021-08-20 18:54 | Progress Note ---
Assessment and Plan Possible Sepsis- high grade fevers, tachycardia, acute encephalopathy, tachypnea DKA (Diabetic Ketoacidosis) Acute Metabolic Encephalopathy h/o CVA (cerebral infarction) with left-sided deficits End Stage renal Disease(ESRD) on HD HTN (Hypertension) h/o Hypothyroidism -Titrate supplemental oxygen to keep SpO2 89-92% -Aspiration precautions, -Continue enteric nutritional support via NGT -Will discontinue femoral HD catheter once the perm cath has been palced -Supportive HD per Renal -Antibiotics per ID, de-escalate based on culture data and clinical response- improved clinically -Continue to monitor hemodynamics closely -Monitor blood glucose, avoid hypoglycemia -VTE prophylaxis- heparin -Mobility per facility protocol to avoid pressure ulcers -At this time there is no indication for acute anticoagulation- if her AVG has clotted, she may need mcfp anticoagulation for graft patency -Continue all supportive care -Maintain sleep-wake cycle -Mobility per facility protocol, off loading and frequent turning to prevent pressure ulcers All otehr care per primary service and other consulting physicians CONDITION:FAIR PROGNOSIS: GUARDED CODE STATUS: FULL CODE Subjective Date of service: 08/20/21 Principal diagnosis: encephalopathy Interval history: Follow up: DKA; acute encephaloapthy Seen and examined. Vitals, labs, medications, chart reviewed. Discussed with RN- no acute overnight events. NGT in place for feeding- tolerating tube feeding Per vascular-Plan for AV graft thrombectomy on Sunday with possible PermCath placement. Objective Vital Signs - 12hr 08/20/21 08/20/21 08/20/21 07:23 08:00 09:46 Temperature 98.6 F Pulse Rate 114 H 114 H Respiratory 18 18 Rate Blood Pressure 192/92 192/92 O2 Sat by Pulse 100 98 Oximetry 08/20/21 08/20/21 12:00 15:34 Temperature 99.8 F H Pulse Rate 87 Respiratory 18 19 Rate Blood Pressure 221/106 O2 Sat by Pulse 98 95 Oximetry Constitutional: other (minimally responsive, spontaneous eye opening, not interactive) Eyes: non-icteric ENT: oropharynx dry Neck: supple, no lymphadenopathy Effort: mildly labored Ascultation: Bilateral: clear, diminished breath sounds Cardiovascular: regular rate and rhythm, other (S1,S2) Gastrointestinal: normoactive bowel sounds Integumentary: normal Extremities: no cyanosis, no edema Neurologic: pupils equal and round, unable to assess (moves all extremities, not obeying commands) Psychiatric: other (Unable to assess mood or affect secondary to mental status) CBC and BMP: 08/19/21 04:37 08/21/21 04:45 ABG, PT/INR, D-dimer: PT/INR, D-dimer PT 13.7 Sec. (12.2-14.9) 08/17/21 02:07 INR 0.95 (0.87-1.13) 08/17/21 02:07 D-Dimer 2695.37 ng/mlDDU (0-234) H 08/17/21 14:40 Abnormal lab findings: Abnormal Labs 08/17/21 08/17/21 08/17/21 00:33 00:33 02:07 MCH RDW 19.7 H Lymph % (Auto) 10.5 L [place] % (Auto) Lymph # (Auto) 1.1 L Seg Neutrophils % 79.1 H Seg Neutrophils # 8.6 H D-Dimer Sodium 132 L 134 L Chloride 87.8 L 88.4 L Carbon Dioxide 21 L BUN 61 H 61 H Creatinine 10.1 H 10.3 H Glucose 594 H* 533 H* POC Glucose Hemoglobin A1c Phosphorus ALT < 5 L Alkaline Phosphatase 182 H NT-Pro-B Natriuret Pep 51172 H HDL Cholesterol TSH Salicylates Acetaminophen 08/17/21 08/17/21 08/17/21 02:07 02:07 02:07 MCH RDW Lymph % (Auto) [place] % (Auto) Lymph # (Auto) Seg Neutrophils % Seg Neutrophils # D-Dimer Sodium Chloride Carbon Dioxide BUN Creatinine Glucose POC Glucose Hemoglobin A1c Phosphorus ALT Alkaline Phosphatase NT-Pro-B Natriuret Pep HDL Cholesterol TSH 5.080 H Salicylates < 0.3 L Acetaminophen 5.0 L 08/17/21 08/17/21 08/17/21 04:20 04:20 05:09 MCH RDW Lymph % (Auto) [place] % (Auto) Lymph # (Auto) Seg Neutrophils % Seg Neutrophils # D-Dimer Sodium 136 L Chloride 90.9 L Carbon Dioxide BUN 61 H Creatinine 10.4 H Glucose 351 H POC Glucose 298 H Hemoglobin A1c Phosphorus 6.20 H ALT Alkaline Phosphatase NT-Pro-B Natriuret Pep HDL Cholesterol TSH Salicylates Acetaminophen 08/17/21 08/17/21 08/17/21 09:58 10:53 13:14 MCH RDW Lymph % (Auto) [place] % (Auto) Lymph # (Auto) Seg Neutrophils % Seg Neutrophils # D-Dimer Sodium Chloride Carbon Dioxide BUN Creatinine Glucose POC Glucose 139 H 162 H 145 H Hemoglobin A1c Phosphorus ALT Alkaline Phosphatase NT-Pro-B Natriuret Pep HDL Cholesterol TSH Salicylates Acetaminophen 08/17/21 08/17/21 08/17/21 14:40 14:40 14:40 MCH RDW Lymph % (Auto) [place] % (Auto) Lymph # (Auto) Seg Neutrophils % Seg Neutrophils # D-Dimer 2695.37 H Sodium Chloride 96.7 L Carbon Dioxide BUN 63 H Creatinine 10.7 H Glucose 145 H POC Glucose Hemoglobin A1c Phosphorus ALT Alkaline Phosphatase NT-Pro-B Natriuret Pep HDL Cholesterol 30 L TSH Salicylates Acetaminophen 08/17/21 08/17/21 08/17/21 14:40 16:45 17:47 MCH RDW Lymph % (Auto) [place] % (Auto) Lymph # (Auto) Seg Neutrophils % Seg Neutrophils # D-Dimer Sodium Chloride 96.2 L Carbon Dioxide BUN 44 H Creatinine 7.2 H Glucose 167 H POC Glucose 136 H 165 H Hemoglobin A1c Phosphorus ALT Alkaline Phosphatase NT-Pro-B Natriuret Pep HDL Cholesterol TSH Salicylates Acetaminophen 08/17/21 08/17/21 08/17/21 18:01 21:01 22:40 MCH RDW Lymph % (Auto) [place] % (Auto) Lymph # (Auto) Seg Neutrophils % Seg Neutrophils # D-Dimer Sodium Chloride 97.1 L 96.4 L Carbon Dioxide BUN 39 H 40 H Creatinine 8.0 H 8.5 H Glucose 122 H 109 H POC Glucose 172 H Hemoglobin A1c Phosphorus ALT Alkaline Phosphatase NT-Pro-B Natriuret Pep HDL Cholesterol TSH Salicylates Acetaminophen 08/17/21 08/18/21 08/18/21 22:40 02:13 04:56 MCH 27 L RDW 19.7 H Lymph % (Auto) [place] % (Auto) Lymph # (Auto) Seg Neutrophils % Seg Neutrophils # D-Dimer Sodium Chloride 96.8 L Carbon Dioxide BUN 44 H Creatinine 9.3 H Glucose 170 H POC Glucose 190 H Hemoglobin A1c Phosphorus 6.70 H ALT Alkaline Phosphatase NT-Pro-B Natriuret Pep HDL Cholesterol TSH Salicylates Acetaminophen 08/18/21 08/18/21 08/18/21 04:56 04:56 17:01 MCH 27 L RDW 19.7 H Lymph % (Auto) [place] % (Auto) 9.7 H Lymph # (Auto) Seg Neutrophils % Seg Neutrophils # D-Dimer Sodium Chloride Carbon Dioxide BUN Creatinine Glucose POC Glucose 228 H Hemoglobin A1c 10.2 H Phosphorus ALT Alkaline Phosphatase NT-Pro-B Natriuret Pep HDL Cholesterol TSH Salicylates Acetaminophen 08/18/21 08/19/21 08/19/21 23:58 04:37 04:37 MCH 27 L RDW 19.5 H Lymph % (Auto) [place] % (Auto) Lymph # (Auto) Seg Neutrophils % Seg Neutrophils # D-Dimer Sodium Chloride 96.7 L Carbon Dioxide 21 L BUN 57 H Creatinine 10.2 H Glucose 151 H POC Glucose 192 H Hemoglobin A1c Phosphorus ALT Alkaline Phosphatase NT-Pro-B Natriuret Pep HDL Cholesterol TSH Salicylates Acetaminophen 08/19/21 08/19/21 08/20/21 17:46 22:59 04:24 MCH RDW Lymph % (Auto) [place] % (Auto) Lymph # (Auto) Seg Neutrophils % Seg Neutrophils # D-Dimer Sodium 133 L Chloride 87.9 L Carbon Dioxide 15 L BUN 33 H Creatinine 7.3 H Glucose 365 H POC Glucose 217 H 282 H Hemoglobin A1c Phosphorus 6.50 H ALT Alkaline Phosphatase NT-Pro-B Natriuret Pep HDL Cholesterol TSH Salicylates Acetaminophen 08/20/21 08/20/21 08/20/21 06:07 07:51 15:37 MCH RDW Lymph % (Auto) [place] % (Auto) Lymph # (Auto) Seg Neutrophils % Seg Neutrophils # D-Dimer Sodium Chloride Carbon Dioxide BUN Creatinine Glucose POC Glucose 398 H 308 H 247 H Hemoglobin A1c Phosphorus ALT Alkaline Phosphatase NT-Pro-B Natriuret Pep HDL Cholesterol TSH Salicylates Acetaminophen Allied health notes reviewed: nursing
[2021-08-20] MEDS: amLODIPine 10 MG TAB PO SCH (21:04)
[2021-08-20] MEDS: INSULIN GLARGINE 100 UNITS/ML SUB-Q SCH (23:30)
[2021-08-21] MEDS: HEPARIN 5,000 UNIT/1 ML VIAL SUB-Q SCH ×3 (05:21→21:28)
[2021-08-21] MEDS: LEVOTHYROXINE 100 MCG INJ IV SCH (05:22)
[2021-08-21] MEDS: INSULIN LISPRO 100 UNIT/ML SUB-Q SCH ×3 (05:26→18:09)
[2021-08-21 05:49] LABS: Calcium 10.6 mg/dL (8.4-10.2)
[2021-08-21] MEDS: hydrALAZINE 100 MG TAB PO SCH ×3 (08:01→21:29)
[2021-08-21] MEDS: ASPIRIN EC 325 MG TAB PO SCH (09:00)
[2021-08-21] MEDS: cloNIDine 0.2 MG TAB PO SCH (09:01)
[2021-08-21] MEDS: FAMOTIDINE 20 MG TAB FEEDTUBE SCH (09:01)
[2021-08-21] MEDS: METOPROLOL TARTRATE 100 MG TAB PO SCH ×2 (09:01→21:28)
[2021-08-21] MEDS: LOSARTAN 50 MG TAB PO SCH (09:01)
[2021-08-21] MEDS: levETIRAcetam 500 MG TAB PO SCH (09:01)
[2021-08-21] MEDS: amLODIPine 10 MG TAB PO SCH ×2 (09:02→21:29)
--- NOTE | 2021-08-21 09:54 | Progress Note ---
Assessment and Plan Assessment and Plan 41-year-old female with known history of CVA, end-stage renal disease on dialysis on Mondays, Wednesdays and Fridays, diabetes mellitus brought into the emergency room accompanied by family for evaluation of changes in mental status which was said to have started at about 8 PM yesterday. Blood glucose was said to have been checked at home and reading was said to be high. There has been no nausea or vomiting, no diarrhea no complaints of abdominal pain. No chest pain or shortness of breath. Most of the history was obtained from family who was by the bedside as patient is unable to give any history at this time. Patient was said to have missed a dialysis on Sunday because she had not been feeling quite well. Work-up in the emergency room today, labs shows blood glucose of 533, anion gap of 28, BUN of 61 and creatinine of 10.3. CT of the head reveals no acute abnormality. - Patient Problems #Acute encephalopathy -Pt. is with poorly controlled Diabetes -Hx of ESRD on Dialysis -no sedation , -R/O Seizure-- EEG diffuse slowing and possible PLM--Repeat EEG today--Talked to her mom according to her daughter is found unresponsive at home with foaming from mouth no hx of seizure -- she is started yesterday on Keppra ,due to eyes deviation to left and lack of response -MRI brain remarkable for old right MCA/YESSENIA infarct -EEG today is with slowing 4-5 hz and triphasic waves mostly related to ESRD -Seizure precaution -Correct underlying infection/electrolytes abnormalities/Dialysis -started on ASA 325 daily -LDL#69 -Echo cardiogram is pending -US carotid<50% bilateral # DKA (diabetic ketoacidosis) -ketoacidosis without coma -Patient admitted and placed on insulin drip and IV fluid. -Will monitor Accu-Cheks closely. # End stage renal disease on dialysis -Consult will be placed to the kindergarten prep teacher for possible dialysis. -Patient is dialysis on Mondays, Wednesdays and Fridays. # hx of CVA -left side weakness -start on ASA ,add lipitor -Lipid profil,LDL is #69 -Echo is pending #Hx of DVT -was on Coumadin -US LEs is noted -Leave decision to restart Coumadin to PCP # HTN ,Poorly controlled -201/84-- better controlled -Control BP<150/85 after review MRI R/O CVA -CT brain is unremarkable # Hypothyroidism -We will continue routine home medications. Monitor TSH. # DVT prophylaxis -Patient placed on subcutaneous heparin. # Full code status -Patient is full code. PLAN 1-ASA 325 mg daily and Lipitor 40 mg 2- Dialysis 3- Control BS 4- Control BP 5- Keppra 500 mg daily -- change to po 6- Review echo 7- she was on Coumadine? US LES is noted 8- Pt therapy/PO intake evaluation case D/W Mom today Aziza Roman#[phone]. Explained to mom findings on MRI and Possible seizure . 9-Add Cymbalta 30 mg daily and stay off neurontine will follow as needed Subjective Date of service: 08/21/21 Principal diagnosis: encephalopathy Interval history: More alert no eyes deviation , not responding to command follow me with her eyes , left side contracture MRI brain today No acute event -remote right MCA and YESSENIA infarct and old lacunar infarct Dialysis BP#160/73-- improved EEG diffuse slowing possible periodic movment -- review repeat EEG showed 4-5 Hz with recurrent triphasic waves mostly related to ESRD/Dialysis on ASA -- was on Coumadin LDL#69 Echo is pending US carotid<50% lipitor 40 mg Placed on Keppra 500 mg daily-- will change to po According to nurse pt. was responding to her mom yesterday. she is moving right side with left side contracture G#[id number] today BUN/Cr#48/8 Objective - Vital Sign Vital Signs - 12hr 08/20/21 08/20/21 08/20/21 22:31 23:39 23:40 Temperature 98.6 F Pulse Rate 87 88 Respiratory 18 Rate Blood Pressure 223/84 223/84 O2 Sat by Pulse 98 Oximetry 08/21/21 08/21/21 08/21/21 04:00 05:32 06:12 Temperature 98.4 F Pulse Rate 96 H 96 H Respiratory 18 Rate Blood Pressure 210/78 O2 Sat by Pulse 96 Oximetry 08/21/21 08/21/21 06:32 09:01 Temperature Pulse Rate Respiratory Rate Blood Pressure 210/78 210/78 O2 Sat by Pulse Oximetry - General Apperance Constitutional: comfortable - EENT EENT: PERRL, mucous membranes moist - Respiratory Respiratory: lungs clear, rhonchi - Cardiovascular Cardiovascular: regular rate, normal S1, normal S2 Extremities: no peripheral edema bilat, no clubbing, cyanosis - Gastrointestinal Gastrointestinal: normoactive bowel sounds - Integumentary Integumentary: normal - Neurologic Cranial nerve examination: PERRL, EOMI, facial droop Speech examination: other (still with no clear speech out put not following commands) Detailed motor examination: other (left sided contracture unchanged moves right side freely) - Laboratory Findings CBC and BMP: 08/19/21 04:37 08/21/21 04:45 Abnormal Lab Findings: Abnormal Labs 08/17/21 08/17/21 08/17/21 00:33 00:33 02:07 MCH RDW 19.7 H Lymph % (Auto) 10.5 L [place] % (Auto) Lymph # (Auto) 1.1 L Seg Neutrophils % 79.1 H Seg Neutrophils # 8.6 H D-Dimer Sodium 132 L 134 L Chloride 87.8 L 88.4 L Carbon Dioxide 21 L BUN 61 H 61 H Creatinine 10.1 H 10.3 H Glucose 594 H* 533 H* POC Glucose Hemoglobin A1c Calcium Phosphorus ALT < 5 L Alkaline Phosphatase 182 H NT-Pro-B Natriuret Pep 02621 H HDL Cholesterol TSH Salicylates Acetaminophen 08/17/21 08/17/21 08/17/21 02:07 02:07 02:07 MCH RDW Lymph % (Auto) [place] % (Auto) Lymph # (Auto) Seg Neutrophils % Seg Neutrophils # D-Dimer Sodium Chloride Carbon Dioxide BUN Creatinine Glucose POC Glucose Hemoglobin A1c Calcium Phosphorus ALT Alkaline Phosphatase NT-Pro-B Natriuret Pep HDL Cholesterol TSH 5.080 H Salicylates < 0.3 L Acetaminophen 5.0 L 08/17/21 08/17/21 08/17/21 04:20 04:20 05:09 MCH RDW Lymph % (Auto) [place] % (Auto) Lymph # (Auto) Seg Neutrophils % Seg Neutrophils # D-Dimer Sodium 136 L Chloride 90.9 L Carbon Dioxide BUN 61 H Creatinine 10.4 H Glucose 351 H POC Glucose 298 H Hemoglobin A1c Calcium Phosphorus 6.20 H ALT Alkaline Phosphatase NT-Pro-B Natriuret Pep HDL Cholesterol TSH Salicylates Acetaminophen 08/17/21 08/17/21 08/17/21 09:58 10:53 13:14 MCH RDW Lymph % (Auto) [place] % (Auto) Lymph # (Auto) Seg Neutrophils % Seg Neutrophils # D-Dimer Sodium Chloride Carbon Dioxide BUN Creatinine Glucose POC Glucose 139 H 162 H 145 H Hemoglobin A1c Calcium Phosphorus ALT Alkaline Phosphatase NT-Pro-B Natriuret Pep HDL Cholesterol TSH Salicylates Acetaminophen 08/17/21 08/17/21 08/17/21 14:40 14:40 14:40 MCH RDW Lymph % (Auto) [place] % (Auto) Lymph # (Auto) Seg Neutrophils % Seg Neutrophils # D-Dimer 2695.37 H Sodium Chloride 96.7 L Carbon Dioxide BUN 63 H Creatinine 10.7 H Glucose 145 H POC Glucose Hemoglobin A1c Calcium Phosphorus ALT Alkaline Phosphatase NT-Pro-B Natriuret Pep HDL Cholesterol 30 L TSH Salicylates Acetaminophen 08/17/21 08/17/21 08/17/21 14:40 16:45 17:47 MCH RDW Lymph % (Auto) [place] % (Auto) Lymph # (Auto) Seg Neutrophils % Seg Neutrophils # D-Dimer Sodium Chloride 96.2 L Carbon Dioxide BUN 44 H Creatinine 7.2 H Glucose 167 H POC Glucose 136 H 165 H Hemoglobin A1c Calcium Phosphorus ALT Alkaline Phosphatase NT-Pro-B Natriuret Pep HDL Cholesterol TSH Salicylates Acetaminophen 08/17/21 08/17/21 08/17/21 18:01 21:01 22:40 MCH RDW Lymph % (Auto) [place] % (Auto) Lymph # (Auto) Seg Neutrophils % Seg Neutrophils # D-Dimer Sodium Chloride 97.1 L 96.4 L Carbon Dioxide BUN 39 H 40 H Creatinine 8.0 H 8.5 H Glucose 122 H 109 H POC Glucose 172 H Hemoglobin A1c Calcium Phosphorus ALT Alkaline Phosphatase NT-Pro-B Natriuret Pep HDL Cholesterol TSH Salicylates Acetaminophen 08/17/21 08/18/21 08/18/21 22:40 02:13 04:56 MCH 27 L RDW 19.7 H Lymph % (Auto) [place] % (Auto) Lymph # (Auto) Seg Neutrophils % Seg Neutrophils # D-Dimer Sodium Chloride 96.8 L Carbon Dioxide BUN 44 H Creatinine 9.3 H Glucose 170 H POC Glucose 190 H Hemoglobin A1c Calcium Phosphorus 6.70 H ALT Alkaline Phosphatase NT-Pro-B Natriuret Pep HDL Cholesterol TSH Salicylates Acetaminophen 08/18/21 08/18/21 08/18/21 04:56 04:56 17:01 MCH 27 L RDW 19.7 H Lymph % (Auto) [place] % (Auto) 9.7 H Lymph # (Auto) Seg Neutrophils % Seg Neutrophils # D-Dimer Sodium Chloride Carbon Dioxide BUN Creatinine Glucose POC Glucose 228 H Hemoglobin A1c 10.2 H Calcium Phosphorus ALT Alkaline Phosphatase NT-Pro-B Natriuret Pep HDL Cholesterol TSH Salicylates Acetaminophen 08/18/21 08/19/21 08/19/21 23:58 04:37 04:37 MCH 27 L RDW 19.5 H Lymph % (Auto) [place] % (Auto) Lymph # (Auto) Seg Neutrophils % Seg Neutrophils # D-Dimer Sodium Chloride 96.7 L Carbon Dioxide 21 L BUN 57 H Creatinine 10.2 H Glucose 151 H POC Glucose 192 H Hemoglobin A1c Calcium Phosphorus ALT Alkaline Phosphatase NT-Pro-B Natriuret Pep HDL Cholesterol TSH Salicylates Acetaminophen 08/19/21 08/19/21 08/20/21 17:46 22:59 04:24 MCH RDW Lymph % (Auto) [place] % (Auto) Lymph # (Auto) Seg Neutrophils % Seg Neutrophils # D-Dimer Sodium 133 L Chloride 87.9 L Carbon Dioxide 15 L BUN 33 H Creatinine 7.3 H Glucose 365 H POC Glucose 217 H 282 H Hemoglobin A1c Calcium Phosphorus 6.50 H ALT Alkaline Phosphatase NT-Pro-B Natriuret Pep HDL Cholesterol TSH Salicylates Acetaminophen 08/20/21 08/20/21 08/20/21 06:07 07:51 15:37 MCH RDW Lymph % (Auto) [place] % (Auto) Lymph # (Auto) Seg Neutrophils % Seg Neutrophils # D-Dimer Sodium Chloride Carbon Dioxide BUN Creatinine Glucose POC Glucose 398 H 308 H 247 H Hemoglobin A1c Calcium Phosphorus ALT Alkaline Phosphatase NT-Pro-B Natriuret Pep HDL Cholesterol TSH Salicylates Acetaminophen 08/20/21 08/21/21 08/21/21 23:22 04:45 05:07 MCH RDW Lymph % (Auto) [place] % (Auto) Lymph # (Auto) Seg Neutrophils % Seg Neutrophils # D-Dimer Sodium 134 L Chloride 92.9 L Carbon Dioxide BUN 48 H Creatinine 8.0 H Glucose 389 H POC Glucose 316 H 407 H Hemoglobin A1c Calcium 10.6 H Phosphorus ALT Alkaline Phosphatase NT-Pro-B Natriuret Pep HDL Cholesterol TSH Salicylates Acetaminophen
[2021-08-21] MEDS: DULoxetine 30 MG CAP PO SCH (10:05)
--- NOTE | 2021-08-21 10:18 | Progress Note ---
Assessment and Plan 1. ESRD: Patient is on maintenance HD, MWF schedule. Last outpatient HD 08/12/21. Meds dosage based on GFR. Hemodialysis: 08/17, 08/19. 2. FEN: Metabolic acidosis, s/p HD, monitor. UF with HD as tolerated. Monitor lytes and volume status. 3. Diabetic Hyperosmolar State, POA: S/p Insulin gtt. Per protocol. 4. Malfunctioning hemodialysis access: Patient presented with no functioning hemodialysis access. S/p R femoral non-tunnel catheter. Vascular consulted. 5. Acute Metabolic Encephalopathy, POA: 2/[address] head and MRI brain negative. Followed by Neuro. 6. SIRS versus sepsis: Unclear source at present. Abx per ID. 7. HTN: Adjust meds as needed. Monitor BP. Subjective: Patient was seen and examined at the bedside. Nurse at the bedside. Examination: General appearance: well-developed, well-nourished, appears stated age, no distress, NG tube HEENT: ATNC, pupils equal Neck: trachea midline Respiratory: Clear to Auscultation Cardiology: regular, S1S2, no murmur Gastrointestinal: soft, normoactive bowel sounds, not tender, ND Integumentary: no rash Neurologic: lethargic, restrains, tracking thru eyes, non-verbal, not following any command Ext: no edema noted Hemodialysis access: R femoral non-tunnel catheter Subjective Date of service: 08/21/21 Principal diagnosis: encephalopathy Objective - Vital Signs Vital signs: Vital Signs - 12hr 08/20/21 08/20/21 08/20/21 22:31 23:39 23:40 Temperature 98.6 F Pulse Rate 87 88 Respiratory 18 Rate Blood Pressure 223/84 223/84 O2 Sat by Pulse 98 Oximetry 08/21/21 08/21/21 08/21/21 04:00 05:32 06:12 Temperature 98.4 F Pulse Rate 96 H 96 H Respiratory 18 Rate Blood Pressure 210/78 O2 Sat by Pulse 96 Oximetry 08/21/21 08/21/21 06:32 09:01 Temperature Pulse Rate Respiratory Rate Blood Pressure 210/78 210/78 O2 Sat by Pulse Oximetry - Lab 08/19/21 04:37 08/21/21 04:45 Most recent lab results Calcium 10.6 mg/dL (8.4-10.2) H 08/21/21 04:45 Phosphorus 6.50 mg/dL (2.5-4.5) H 08/20/21 04:24 Magnesium 2.00 mg/dL (1.7-2.3) 08/20/21 04:24 Medications & Allergies - Medications Allergies/Adverse Reactions: Allergies vancomycin Adverse Reaction (Verified 04/02/13 10:16) Hives Home Medications: Home Medications Medication Instructions Recorded Confirmed Last Taken Type Hydralazine HCl [hydrALAZINE] 100 mg PO BID 04/02/13 08/17/21 04/02/13 08:00 History Aspirin/Dipyridamole [Aggrenox] 1 cap PO BID #60 capsule 04/10/13 08/17/21 Un known Rx Cinacalcet [Sensipar] 60 mg PO QDAY 08/17/21 08/17/21 Unknown History Citalopram [celeXA] 20 mg PO QDAY 08/17/21 08/17/21 Unknown History Ergocalciferol [Vitamin D2] 1 cap PO QWEEK 08/17/21 08/17/21 Unknown History Gabapentin [Neurontin] 100 mg PO Q8HR 08/17/21 08/17/21 Unknown History Insulin Glargine,Hum.rec.anlog 55 unit SQ BID 08/17/21 08/17/21 Unknown History [Lantus Solostar] Promethazine [Phenergan] 25 mg PO Q6HR PRN 08/17/21 08/17/21 Unknown History Sevelamer Carbonate [Renvela] 800 mg PO TIDWM 08/17/21 08/17/21 Unknown History amLODIPine [Norvasc] 10 mg PO DAILY 08/17/21 08/17/21 Unknown History carvediloL [Coreg] 25 mg PO BID 08/17/21 08/17/21 Unknown History cloNIDine [Catapres] 0.2 mg PO BID 08/17/21 08/17/21 Unknown History Active Medications: Generic Name Dose Route Start Last Admin Trade Name Freq PRN Reason Stop Dose Admin Acetaminophen 650 mg 08/17/21 07:50 08/20/21 21:03 Acetaminophen 325 Mg Tab PO 650 mg Q6H PRN Administration Pain, Mild (1-3) Acetaminophen 650 mg 08/17/21 08:17 08/17/21 14:49 Acetaminophen 650 Mg Rect Supp MS 650 mg Q4H PRN Administration Pain, Mild (1-3) Amlodipine Besylate 10 mg 08/20/21 22:00 08/21/21 09:02 Amlodipine 10 Mg Tab PO 10 mg BID HAM Administration Aspirin 325 mg 08/18/21 10:00 08/21/21 09:00 Aspirin Ec 325 Mg Tab PO 325 mg QDAY HAM Administration Clonidine HCl 0.2 mg 08/21/21 10:00 08/21/21 09:01 Clonidine 0.2 Mg Tab PO 0.2 mg QDAY HAM Administration Dextrose 50 ml 08/17/21 23:37 Dextrose 50% In Water (25gm) 50 Ml Syringe IV Q30MIN PRN Hypoglycemia Protocol Duloxetine HCl 30 mg 08/21/21 10:00 Duloxetine 30 Mg Cap PO QDAY HAM Famotidine 20 mg 08/20/21 10:00 08/21/21 09:01 Famotidine 20 Mg Tab FEEDTUBE 20 mg QDAY HAM Administration Haloperidol Lactate 5 mg 08/19/21 12:00 08/19/21 16:14 Haloperidol Lactate 5 Mg/1 Ml Inj IV 5 mg Q6H PRN Administration Agitation Heparin Sodium (Porcine) 5,000 unit 08/17/21 06:00 08/21/21 05:21 Heparin 5,000 Unit/1 Ml Vial SUB-Q 5,000 unit Q8HR HAM Administration Heparin Sodium (Porcine) 3,000 unit 08/17/21 07:41 Heparin 10,000 Units/10 Ml Vial IV KATI PRN hemodialysis Hydralazine HCl 100 mg 08/17/21 09:00 08/21/21 08:01 Hydralazine 100 Mg Tab PO 100 mg TID HAM Administration Hydralazine HCl 10 mg 08/17/21 07:56 08/20/21 23:39 Hydralazine 20 Mg/1 Ml Inj IV 10 mg Q4HR PRN Administration Hypertension Hydromorphone HCl 0.25 mg 08/17/21 07:50 08/20/21 05:40 Hydromorphone 0.5 Mg/0.5 Ml Inj IV 0.25 mg Q4H PRN Administration Pain, Moderate (4-6) Daptomycin 500 mg/ Sodium 100 mls @ 200 mls/hr 08/17/21 15:00 08/19/21 18:06 Chloride IV 200 mls/hr Q48H HAM Administration Protocol Sodium Chloride 100 mls @ 999 mls/hr 08/18/21 10:08 Nacl 0.9% IV KATI PRN Hypotension Cefepime HCl 1 gm in 100 mls @ 200 mls/hr 08/19/21 18:00 08/20/21 18:38 Cefepime/Ns 1 Gm/100 Ml IV 200 mls/hr QPM HAM Administration Protocol Insulin Glargine 15 units 08/19/21 15:59 08/20/21 23:30 Insulin Glargine 100 Units/Ml SUB-Q 15 units QHS HAM Administration Insulin Human Lispro 0 unit 08/18/21 00:00 08/21/21 05:26 Insulin Lispro 100 Unit/Ml SUB-Q 8 unit Q6HR HAM Administration Protocol Levetiracetam 500 mg 08/20/21 10:00 08/21/21 09:01 Levetiracetam 500 Mg Tab PO 500 mg DAILY HAM Administration Levothyroxine Sodium 62.5 mcg 08/18/21 15:00 08/21/21 05:22 Levothyroxine 100 Mcg Inj IV 62.5 mcg DAILY@0600 HAM Administration Losartan Potassium 50 mg 08/17/21 10:00 08/21/21 09:01 Losartan 50 Mg Tab PO 50 mg QDAY HAM Administration Magnesium Hydroxide 30 ml 08/17/21 04:09 Magnesium Hydroxide (Mom) Oral Liqd Udc PO Q4H PRN Constipation Metoprolol Tartrate 100 mg 08/20/21 11:00 08/21/21 09:01 Metoprolol Tartrate 100 Mg Tab PO 100 mg BID HAM Administration Ondansetron HCl 4 mg 08/17/21 04:09 Ondansetron 4 Mg/2 Ml Inj IV Q8H PRN Nausea And Vomiting Sodium Chloride 10 ml 08/17/21 10:00 08/21/21 09:02 Sodium Chloride 0.9% 10 Ml Flush Syringe IV 10 ml BID HAM Administration Sodium Chloride 10 ml 08/17/21 04:09 08/19/21 02:59 Sodium Chloride 0.9% 10 Ml Flush Syringe IV 10 ml PRN PRN Administration LINE FLUSH
--- NOTE | 2021-08-21 12:51 | Progress Note ---
Assessment and Plan This is a 41 year-old female with known past medical history of CVA, DVT, HTM, ESRD on HD(MWF), and type 2 diabetes mellitus admitted for DKA Hospital Course to Date: 08/17: Patient seen and examined at the bedside. Patient remains and obtunded, only arousable with stimuli. CT head noted with no acute abnormality. Neurology consulted. On 2L NC and able to protect her airway. Patient remains on insulin gtt per DKA protocol, BG is improving and anion gap most likely due to ESRD. Plan for HD today per Nephro, possible transition to subQ insulin post HD treatment. Patient is also febrile this am, VSS. Orders placed for blood cultures, empiric IV abx was initiated and ID was consulted. 08/18: Stable on RA this am. Awake and tracking, but not following commands. MRI brain pending, Neurology is also following. Transitioned to subQ insulin overnight, patient remains NPO due to mental status. PT/OT/Speech ordered. Patient RUE fistula clotted, Temp. Vascath inserted for HD. Vascular Surgery consulted for AVF eval and treat. BLE doppler noted. Per patient mother patient has not been on coumadin for a couple years, she was only on ASA. Patient might benefit from PO AC at discharge. Continue VTE proph, Heparin subq for now. 08/19: With left-side neglect. Awake and following commands on the right side onl y, but patient remains nonverbal. MRI brain and Neurology recs noted. C/f seizure now on Keppra per Neuro, EEG pending. Patient remains NPO, failed speech swallow due to mental status. Will insert DHT and initiate enteral nutrition. Continue PRN antihypertensives for now and resume PO antihypertensive therapy once DHT is placed. PRN Haldol added for agitation. D/w CCM patient is stable for transfer to Telemetry. 08/20: EEG today is with slowing 4-5 hz and triphasic waves mostly related to ESRD. Patient initiated on Keppra since yesterday. Pending 2D echocardiogram report. Patient appears to be more oriented and alert today. Continue to follow clinically, PT eval. BP noted to be elevated, initiated on home dose of clonidine and Norvasc. Continue to follow. 08/21: Blood glucose this morning above 400, increase Lantus dose, clinically remains unchanged, continue AED and follow clinically. Wait for PT recommendation. 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 a week ago - Blood cultures with NGTD - ID on consult, appreciated recommendations - Continue current IV abx per ID - Continue to F/U on B.cultures - Daily CBC monitor #End Stage renal Disease(ESRD) on HD - Nephrology on consult, appreciated recommendation - RUE AV-Fistula clotted, Temporary Vascath inserted - Continue HD per Nephro - Strict intake and output, patient is anuric - Avoid nephrotoxic medications; Renally dose medications - Monitor and replace electrolytes as needed - Vascular Surgery consulted for AVF eval and treat #Acute Metabolic Encephalopathy #H/o CVA (cerebral infarction) with left-sided deficits - Multifactorial, DKA vs azotemia vs infectious process - Awake and tracking, not following commands - CT head noted with mo acute abnormality - S/p DKA protocol, HD per Nephro, and on IV abx - MRI brain noted - Neurology consulted, appreciated recommendations - c/f seizure, Keppra initiated per Neuro - PRN Haldolo for agitation - Fall and safety precaution - Aspiration precaution - Frequent reorientation - Avoid benzodiazepine to reduce the possibility of delirium - Maintenance of sleep-wake cycle - PT/OT/Speech ordered #HTN (Hypertension) - Hypertensive this am, patient unable to take PO meds due to alerted mentation - PO antihypertensives held - PRN Hydralazine and Labetalol for SBP greater than 160 - Continue blood pressure monitor per protocol #Elevated D-Dimer #RUE AV fistula Clotted #H/o DVT - BLE doppler showed no evidence for acute DVT in either lower extremity. 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 - Per patient's mother, patient has been off coumadin for a couple of years - Continue Heparin SubQ - Patient might benefit from PO AC at discharge, awaiting Vascular surgery recommendations #Hypothyroidism - Resume home synthroid #Dysphagia - Patient failed speech eval due to mental status - Plan to insert DHT and initiate enteral nutrition - Nutrition Consulted for TF management #GI/ DVT Prophylaxis - PPI- Pepcid - Heparin SubQ - SCDs to bilateral lower extremities while in bed #Advance care planning - Disease education data, care plan, diagnoses, and prognosis were discussed with patient's mother-Angely Roman # . Patient is full code. Patient family knowledges understanding and agreement with care plan. Subjective Date of service: 08/21/21 Principal diagnosis: encephalopathy Interval history: Patient seen and examined. Medical records and medication list reviewed. No acute event overnight noted by the RN. Patient more alert and follows commends today Discussed plan of care at bedside with patient's RN. Family at bedside - updated Objective - Exam Narrative Exam: General appearance: Present: no acute distress, well-nourished, obese, nonverbal - EENT Eyes: Present: PERRL - Neck Neck: Present: normal ROM - Respiratory Respiratory effort: normal Respiratory: bilateral: diminished - Cardiovascular Rhythm: regular Heart Sounds: Present: S1 & S2 - Extremities Extremities: no ischemia, pulses intact, pulses symmetrical Peripheral Pulses: within normal limits - Abdominal General gastrointestinal: soft, non-distended, normal bowel sounds - Integumentary Integumentary: Present: clear, warm, dry - Psychiatric Psychiatric: other (Awake, does not follow command. Nonverbal) - Neurologic Neurologic: focal deficits (Left side weakness and left side neglect), other (Awake, Nonverbal) - Allied Health Allied health notes reviewed: nursing, case management - Constitutional Vitals: Vital Signs - 12hr 08/21/21 08/21/21 08/21/21 04:00 05:32 06:12 Temperature 98.4 F Pulse Rate 96 H 96 H Respiratory 18 Rate Blood Pressure 210/78 O2 Sat by Pulse 96 Oximetry 08/21/21 08/21/21 08/21/21 06:32 08:16 09:01 Temperature 98.8 F Pulse Rate 77 Respiratory 18 Rate Blood Pressure 210/78 201/88 210/78 O2 Sat by Pulse 98 Oximetry 08/21/21 08/21/21 10:00 11:36 Temperature 98.4 F Pulse Rate Respiratory 16 Rate Blood Pressure 180/78 O2 Sat by Pulse 98 Oximetry - Labs CBC & Chem 7: 08/19/21 04:37 08/21/21 04:45 Labs: Abnormal lab results 08/20/21 08/20/21 08/21/21 Range/Units 15:37 23:22 04:45 Sodium 134 L (137-145) mmol/L Chloride 92.9 L (98-107) mmol/L BUN 48 H (7-17) mg/dL Creatinine 8.0 H (0.6-1.2) mg/dL Glucose 389 H (65-100) mg/dL POC Glucose 247 H 316 H (70-105) mg/dL Calcium 10.6 H (8.4-10.2) mg/dL 08/21/21 08/21/21 Range/Units 05:07 11:37 Sodium (137-145) mmol/L Chloride (98-107) mmol/L BUN (7-17) mg/dL Creatinine (0.6-1.2) mg/dL Glucose (65-100) mg/dL POC Glucose 407 H 244 H (70-105) mg/dL Calcium (8.4-10.2) mg/dL
[2021-08-21] MEDS: CEFEPIME/NS 1 GM/100 ML 1 GM/100 ML BAG IV SCH (18:07)
--- NOTE | 2021-08-21 19:25 | Progress Note ---
Assessment and Plan Possible Sepsis- high grade fevers, tachycardia, acute encephalopathy, tachypnea DKA (Diabetic Ketoacidosis) Acute Metabolic Encephalopathy h/o CVA (cerebral infarction) with left-sided deficits End Stage renal Disease(ESRD) on HD HTN (Hypertension) h/o Hypothyroidism Empiric AEDs per Neurology, on Tejal Primary service has adjusted insulin therapy for better glycemic control Home oral antihypertensives added for better blood pressure control Monitor temperature curve and WCC -Continue to Titrate supplemental oxygen to keep SpO2 89-92% -Continue with aspiration precautions, -Continue enteric nutritional support via NGT -Will discontinue femoral HD catheter once the perm cath has been placed -Supportive HD per Renal -Continue to monitor hemodynamics closely -Monitor blood glucose, avoid hypoglycemia -VTE prophylaxis- heparin -At this time there is no indication for acute anticoagulation- if her AVG has c lotted, she may need intermediate anticoagulation for graft patency -Continue all supportive care, seizure precautions -Maintain sleep-wake cycle -Mobility per facility protocol, off loading and frequent turning to prevent pressure ulcers All other care per primary service and other consulting physicians CONDITION:FAIR PROGNOSIS: GUARDED CODE STATUS: FULL CODE Subjective Date of service: 08/21/21 Principal diagnosis: encephalopathy Interval history: Follow up: DKA; acute encephaloapthy Seen and examined. Vitals, labs, medications, chart reviewed. Discussed with RN- no acute overnight events. NGT in place for feeding- tolerating tube feeding Suboptimal glycemic control and blood pressure control Objective Vital Signs - 12hr 08/21/21 08/21/21 08/21/21 08:16 09:01 10:00 Temperature 98.8 F Pulse Rate 77 Respiratory 18 Rate Blood Pressure 201/88 210/78 Blood Pressure [Right] O2 Sat by Pulse 98 98 Oximetry 08/21/21 08/21/21 11:36 15:56 Temperature 98.4 F 98.6 F Pulse Rate 56 L Respiratory 16 18 Rate Blood Pressure 180/78 Blood Pressure 210/99 [Right] O2 Sat by Pulse 97 Oximetry Constitutional: other (minimally rsponsive, transmitted upper airway sounds, on supplemetnal oxygen) Eyes: non-icteric ENT: oropharynx dry Neck: supple, no lymphadenopathy Effort: mildly labored Ascultation: Bilateral: clear, diminished breath sounds Cardiovascular: regular rate and rhythm, other (S1,S2) Gastrointestinal: normoactive bowel sounds Integumentary: normal Extremities: no cyanosis, no edema Neurologic: pupils equal and round, unable to assess (moves all extremities, not obeying commands) Psychiatric: other (Unable to assess mood or affect secondary to mental status) CBC and BMP: 08/19/21 04:37 08/21/21 04:45 ABG, PT/INR, D-dimer: PT/INR, D-dimer PT 13.7 Sec. (12.2-14.9) 08/17/21 02:07 INR 0.95 (0.87-1.13) 08/17/21 02:07 D-Dimer 2695.37 ng/mlDDU (0-234) H 08/17/21 14:40 Abnormal lab findings: Abnormal Labs 08/17/21 08/17/21 08/17/21 00:33 00:33 02:07 MCH RDW 19.7 H Lymph % (Auto) 10.5 L [place] % (Auto) Lymph # (Auto) 1.1 L Seg Neutrophils % 79.1 H Seg Neutrophils # 8.6 H D-Dimer Sodium 132 L 134 L Chloride 87.8 L 88.4 L Carbon Dioxide 21 L BUN 61 H 61 H Creatinine 10.1 H 10.3 H Glucose 594 H* 533 H* POC Glucose Hemoglobin A1c Calcium Phosphorus ALT < 5 L Alkaline Phosphatase 182 H NT-Pro-B Natriuret Pep 50582 H HDL Cholesterol TSH Salicylates Acetaminophen 08/17/21 08/17/21 08/17/21 02:07 02:07 02:07 MCH RDW Lymph % (Auto) [place] % (Auto) Lymph # (Auto) Seg Neutrophils % Seg Neutrophils # D-Dimer Sodium Chloride Carbon Dioxide BUN Creatinine Glucose POC Glucose Hemoglobin A1c Calcium Phosphorus ALT Alkaline Phosphatase NT-Pro-B Natriuret Pep HDL Cholesterol TSH 5.080 H Salicylates < 0.3 L Acetaminophen 5.0 L 08/17/21 08/17/21 08/17/21 04:20 04:20 05:09 MCH RDW Lymph % (Auto) [place] % (Auto) Lymph # (Auto) Seg Neutrophils % Seg Neutrophils # D-Dimer Sodium 136 L Chloride 90.9 L Carbon Dioxide BUN 61 H Creatinine 10.4 H Glucose 351 H POC Glucose 298 H Hemoglobin A1c Calcium Phosphorus 6.20 H ALT Alkaline Phosphatase NT-Pro-B Natriuret Pep HDL Cholesterol TSH Salicylates Acetaminophen 08/17/21 08/17/21 08/17/21 09:58 10:53 13:14 MCH RDW Lymph % (Auto) [place] % (Auto) Lymph # (Auto) Seg Neutrophils % Seg Neutrophils # D-Dimer Sodium Chloride Carbon Dioxide BUN Creatinine Glucose POC Glucose 139 H 162 H 145 H Hemoglobin A1c Calcium Phosphorus ALT Alkaline Phosphatase NT-Pro-B Natriuret Pep HDL Cholesterol TSH Salicylates Acetaminophen 08/17/21 08/17/21 08/17/21 14:40 14:40 14:40 MCH RDW Lymph % (Auto) [place] % (Auto) Lymph # (Auto) Seg Neutrophils % Seg Neutrophils # D-Dimer 2695.37 H Sodium Chloride 96.7 L Carbon Dioxide BUN 63 H Creatinine 10.7 H Glucose 145 H POC Glucose Hemoglobin A1c Calcium Phosphorus ALT Alkaline Phosphatase NT-Pro-B Natriuret Pep HDL Cholesterol 30 L TSH Salicylates Acetaminophen 08/17/21 08/17/21 08/17/21 14:40 16:45 17:47 MCH RDW Lymph % (Auto) [place] % (Auto) Lymph # (Auto) Seg Neutrophils % Seg Neutrophils # D-Dimer Sodium Chloride 96.2 L Carbon Dioxide BUN 44 H Creatinine 7.2 H Glucose 167 H POC Glucose 136 H 165 H Hemoglobin A1c Calcium Phosphorus ALT Alkaline Phosphatase NT-Pro-B Natriuret Pep HDL Cholesterol TSH Salicylates Acetaminophen 08/17/21 08/17/21 08/17/21 18:01 21:01 22:40 MCH RDW Lymph % (Auto) [place] % (Auto) Lymph # (Auto) Seg Neutrophils % Seg Neutrophils # D-Dimer Sodium Chloride 97.1 L 96.4 L Carbon Dioxide BUN 39 H 40 H Creatinine 8.0 H 8.5 H Glucose 122 H 109 H POC Glucose 172 H Hemoglobin A1c Calcium Phosphorus ALT Alkaline Phosphatase NT-Pro-B Natriuret Pep HDL Cholesterol TSH Salicylates Acetaminophen 08/17/21 08/18/21 08/18/21 22:40 02:13 04:56 MCH 27 L RDW 19.7 H Lymph % (Auto) [place] % (Auto) Lymph # (Auto) Seg Neutrophils % Seg Neutrophils # D-Dimer Sodium Chloride 96.8 L Carbon Dioxide BUN 44 H Creatinine 9.3 H Glucose 170 H POC Glucose 190 H Hemoglobin A1c Calcium Phosphorus 6.70 H ALT Alkaline Phosphatase NT-Pro-B Natriuret Pep HDL Cholesterol TSH Salicylates Acetaminophen 08/18/21 08/18/21 08/18/21 04:56 04:56 17:01 MCH 27 L RDW 19.7 H Lymph % (Auto) [place] % (Auto) 9.7 H Lymph # (Auto) Seg Neutrophils % Seg Neutrophils # D-Dimer Sodium Chloride Carbon Dioxide BUN Creatinine Glucose POC Glucose 228 H Hemoglobin A1c 10.2 H Calcium Phosphorus ALT Alkaline Phosphatase NT-Pro-B Natriuret Pep HDL Cholesterol TSH Salicylates Acetaminophen 08/18/21 08/19/21 08/19/21 23:58 04:37 04:37 MCH 27 L RDW 19.5 H Lymph % (Auto) [place] % (Auto) Lymph # (Auto) Seg Neutrophils % Seg Neutrophils # D-Dimer Sodium Chloride 96.7 L Carbon Dioxide 21 L BUN 57 H Creatinine 10.2 H Glucose 151 H POC Glucose 192 H Hemoglobin A1c Calcium Phosphorus ALT Alkaline Phosphatase NT-Pro-B Natriuret Pep HDL Cholesterol TSH Salicylates Acetaminophen 08/19/21 08/19/21 08/20/21 17:46 22:59 04:24 MCH RDW Lymph % (Auto) [place] % (Auto) Lymph # (Auto) Seg Neutrophils % Seg Neutrophils # D-Dimer Sodium 133 L Chloride 87.9 L Carbon Dioxide 15 L BUN 33 H Creatinine 7.3 H Glucose 365 H POC Glucose 217 H 282 H Hemoglobin A1c Calcium Phosphorus 6.50 H ALT Alkaline Phosphatase NT-Pro-B Natriuret Pep HDL Cholesterol TSH Salicylates Acetaminophen 08/20/21 08/20/21 08/20/21 06:07 07:51 15:37 MCH RDW Lymph % (Auto) [place] % (Auto) Lymph # (Auto) Seg Neutrophils % Seg Neutrophils # D-Dimer Sodium Chloride Carbon Dioxide BUN Creatinine Glucose POC Glucose 398 H 308 H 247 H Hemoglobin A1c Calcium Phosphorus ALT Alkaline Phosphatase NT-Pro-B Natriuret Pep HDL Cholesterol TSH Salicylates Acetaminophen 08/20/21 08/21/21 08/21/21 23:22 04:45 05:07 MCH RDW Lymph % (Auto) [place] % (Auto) Lymph # (Auto) Seg Neutrophils % Seg Neutrophils # D-Dimer Sodium 134 L Chloride 92.9 L Carbon Dioxide BUN 48 H Creatinine 8.0 H Glucose 389 H POC Glucose 316 H 407 H Hemoglobin A1c Calcium 10.6 H Phosphorus ALT Alkaline Phosphatase NT-Pro-B Natriuret Pep HDL Cholesterol TSH Salicylates Acetaminophen 08/21/21 08/21/21 11:37 15:52 MCH RDW Lymph % (Auto) [place] % (Auto) Lymph # (Auto) Seg Neutrophils % Seg Neutrophils # D-Dimer Sodium Chloride Carbon Dioxide BUN Creatinine Glucose POC Glucose 244 H 325 H Hemoglobin A1c Calcium Phosphorus ALT Alkaline Phosphatase NT-Pro-B Natriuret Pep HDL Cholesterol TSH Salicylates Acetaminophen Additional Studies: EEG-slowing 4-5 hz and triphasic waves mostly related to ESRD Allied health notes reviewed: nursing
[2021-08-21] MEDS: INSULIN GLARGINE 100 UNITS/ML SUB-Q SCH (21:28)
[2021-08-22] MEDS: INSULIN LISPRO 100 UNIT/ML SUB-Q SCH ×4 (00:56→17:55)
[2021-08-22] MEDS: LEVOTHYROXINE 125 MCG TAB PO SCH (06:14)
[2021-08-22] MEDS: HEPARIN 5,000 UNIT/1 ML VIAL SUB-Q SCH ×3 (06:14→21:24)
--- NOTE | 2021-08-22 09:03 | Progress Note ---
Assessment and Plan 41-year-old female with known history of CVA, end-stage renal disease on dialysis on Mondays, Wednesdays and Fridays, diabetes mellitus brought into the emergency room accompanied by family for evaluation of changes in mental status which was said to have started at about 8 PM the day before coming to ER. Blood glucose was said to have been checked at home and reading was said to be high. There has been no nausea or vomiting, no diarrhea no complaints of abdominal pain. No chest pain or shortness of breath. Patient was said to have missed a dialysis on Sunday because she had not been feeling quite well. Work-up in the emergency room , labs shows blood glucose of 533, anion gap of 28, BUN of 61 and creatinine of 10.3. CT of the head reveals no acute abnormality. Patient has been started on IV fluid and insulin drip. She was closely monitored in the intensive care unit. Past Medical History: dialysis, DVT, ESRD, hypertension, migraines, stroke Past Surgical History: No surgical history Social history: no significant social history Allergic to Vancomycin. Patient transfered to medical floor. Patient Opening eyes but not following commands. Patient is on room air. O2 saturation 95%. Mild shortness of breath at rest. Patient afebrile. No leukocytosis. Blood pressure 193/101, Pulse 82 , Respirations 25. Patients last blood sugur 224. Chest xray 08/17/21 reported is poor inspiration. No significant pulmonary or pleural abnormality. No pneumothorax. Venous doppler studies Bilateral 08/17/21 reported No sonographic evidence for acute DVT in either lower extremity. 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 Patient is on S/C Heparin, Famotidine, S/C Insulin and I/V fluids. - Patient Problems (1) DKA (diabetic ketoacidosis) Current Visit: Yes Status: Acute Qualifiers: Diabetes mellitus type: type 1 Diabetes mellitus complication detail: without coma Qualified Code(s): E10.10 - Type 1 diabetes mellitus with ketoacidosis without coma Plan to address problem: Improving. Last blood sugur 224. Recommend to repeat BMP with anion gap. Follow anion gap and blood sugur. Management as per primary care. (2) End stage renal disease on dialysis Current Visit: Yes Status: Acute Plan to address problem: Patient is on Hemodialysis. Management as per nephrology. (3) Acute ischemic stroke Current Visit: No Status: Acute Plan to address problem: Management as per primary care and neurology. (4) HTN (hypertension), malignant Current Visit: No Status: Acute Plan to address problem: Patient is on Metaprolol, COzzar, Hydralagine and catapress. Management as per primary care. (5) DVT (deep venous thrombosis) Current Visit: No Status: Chronic Plan to address problem: enous doppler studies Bilateral 08/17/21 reported No sonographic evidence for acute DVT in either lower extremity. 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 Patient is on S/C Heparin. (6) Hypothyroidism Current Visit: No Status: Chronic Plan to address problem: Patient is on Levothyroxine. Management as per primary care. Subjective Date of service: 08/22/21 Principal diagnosis: encephalopathy Interval history: 41-year-old female with known history of CVA, end-stage renal disease on dialysis on Mondays, Wednesdays and Fridays, diabetes mellitus brought into the emergency room accompanied by family for evaluation of changes in mental status which was said to have started at about 8 PM the day before coming to ER. Blood glucose was said to have been checked at home and reading was said to be high. There has been no nausea or vomiting, no diarrhea no complaints of abdominal pain. No chest pain or shortness of breath. Patient was said to have missed a dialysis on Sunday because she had not been feeling quite well. Work-up in the emergency room , labs shows blood glucose of 533, anion gap of 28, BUN of 61 and creatinine of 10.3. CT of the head reveals no acute abnormality. Patient has been started on IV fluid and insulin drip. She was closely monitored in the intensive care unit. Past Medical History: dialysis, DVT, ESRD, hypertension, migraines, stroke Past Surgical History: No surgical history Social history: no significant social history Allergic to Vancomycin. Patient transfered to medical floor. Patient Opening eyes but not following commands. Patient is on room air. O2 saturation 95%. Mild shortness of breath at rest. Patient afebrile. No leukocytosis. Blood pressure 193/101, Pulse 82 , Respirations 25. Patients last blood sugur 224. Chest xray 08/17/21 reported is poor inspiration. No significant pulmonary or pleural abnormality. No pneumothorax. Venous doppler studies Bilateral 08/17/21 reported No sonographic evidence for acute DVT in either lower extremity. 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 Patient is on S/C Heparin, Famotidine, S/C Insulin and I/V fluids. Objective Vital Signs - 12hr 08/21/21 08/22/21 08/22/21 22:00 00:07 02:22 Temperature 99.3 F Pulse Rate 81 80 Respiratory 48 H Rate Blood Pressure 164/92 O2 Sat by Pulse 98 99 Oximetry 08/22/21 08/22/21 05:11 08:47 Temperature 98.1 F 98.2 F Pulse Rate 82 82 Respiratory 40 H 38 H Rate Blood Pressure 155/86 193/101 O2 Sat by Pulse 97 95 Oximetry Constitutional: lethargic, appears uncomfortable, other (minimally responsive, on supplemetnal oxygen) Eyes: non-icteric ENT: oropharynx dry Neck: supple, no lymphadenopathy Effort: mildly labored Ascultation: Bilateral: diminished breath sounds Cardiovascular: regular rate and rhythm, other (S1,S2) Gastrointestinal: normoactive bowel sounds, soft, non-tender, other (obese) Integumentary: normal Extremities: no cyanosis, no edema Neurologic: pupils equal and round, unable to assess (moves all extremities, not obeying commands) Psychiatric: other (Unable to assess mood or affect secondary to mental status) CBC and BMP: 08/19/21 04:37 08/21/21 04:45 ABG, PT/INR, D-dimer: PT/INR, D-dimer PT 13.7 Sec. (12.2-14.9) 08/17/21 02:07 INR 0.95 (0.87-1.13) 08/17/21 02:07 D-Dimer 2695.37 ng/mlDDU (0-234) H 08/17/21 14:40 Abnormal lab findings: Abnormal Labs 08/17/21 08/17/21 08/17/21 00:33 00:33 02:07 MCH RDW 19.7 H Lymph % (Auto) 10.5 L Parmer % (Auto) Lymph # (Auto) 1.1 L Seg Neutrophils % 79.1 H Seg Neutrophils # 8.6 H D-Dimer Sodium 132 L 134 L Chloride 87.8 L 88.4 L Carbon Dioxide 21 L BUN 61 H 61 H Creatinine 10.1 H 10.3 H Glucose 594 H* 533 H* POC Glucose Hemoglobin A1c Calcium Phosphorus ALT < 5 L Alkaline Phosphatase 182 H NT-Pro-B Natriuret Pep 19388 H HDL Cholesterol TSH Salicylates Acetaminophen 08/17/21 08/17/21 08/17/21 02:07 02:07 02:07 MCH RDW Lymph % (Auto) Parmer % (Auto) Lymph # (Auto) Seg Neutrophils % Seg Neutrophils # D-Dimer Sodium Chloride Carbon Dioxide BUN Creatinine Glucose POC Glucose Hemoglobin A1c Calcium Phosphorus ALT Alkaline Phosphatase NT-Pro-B Natriuret Pep HDL Cholesterol TSH 5.080 H Salicylates < 0.3 L Acetaminophen 5.0 L 08/17/21 08/17/21 08/17/21 04:20 04:20 05:09 MCH RDW Lymph % (Auto) Parmer % (Auto) Lymph # (Auto) Seg Neutrophils % Seg Neutrophils # D-Dimer Sodium 136 L Chloride 90.9 L Carbon Dioxide BUN 61 H Creatinine 10.4 H Glucose 351 H POC Glucose 298 H Hemoglobin A1c Calcium Phosphorus 6.20 H ALT Alkaline Phosphatase NT-Pro-B Natriuret Pep HDL Cholesterol TSH Salicylates Acetaminophen 08/17/21 08/17/21 08/17/21 09:58 10:53 13:14 MCH RDW Lymph % (Auto) Parmer % (Auto) Lymph # (Auto) Seg Neutrophils % Seg Neutrophils # D-Dimer Sodium Chloride Carbon Dioxide BUN Creatinine Glucose POC Glucose 139 H 162 H 145 H Hemoglobin A1c Calcium Phosphorus ALT Alkaline Phosphatase NT-Pro-B Natriuret Pep HDL Cholesterol TSH Salicylates Acetaminophen 08/17/21 08/17/21 08/17/21 14:40 14:40 14:40 MCH RDW Lymph % (Auto) Parmer % (Auto) Lymph # (Auto) Seg Neutrophils % Seg Neutrophils # D-Dimer 2695.37 H Sodium Chloride 96.7 L Carbon Dioxide BUN 63 H Creatinine 10.7 H Glucose 145 H POC Glucose Hemoglobin A1c Calcium Phosphorus ALT Alkaline Phosphatase NT-Pro-B Natriuret Pep HDL Cholesterol 30 L TSH Salicylates Acetaminophen 08/17/21 08/17/21 08/17/21 14:40 16:45 17:47 MCH RDW Lymph % (Auto) Parmer % (Auto) Lymph # (Auto) Seg Neutrophils % Seg Neutrophils # D-Dimer Sodium Chloride 96.2 L Carbon Dioxide BUN 44 H Creatinine 7.2 H Glucose 167 H POC Glucose 136 H 165 H Hemoglobin A1c Calcium Phosphorus ALT Alkaline Phosphatase NT-Pro-B Natriuret Pep HDL Cholesterol TSH Salicylates Acetaminophen 08/17/21 08/17/21 08/17/21 18:01 21:01 22:40 MCH RDW Lymph % (Auto) Parmer % (Auto) Lymph # (Auto) Seg Neutrophils % Seg Neutrophils # D-Dimer Sodium Chloride 97.1 L 96.4 L Carbon Dioxide BUN 39 H 40 H Creatinine 8.0 H 8.5 H Glucose 122 H 109 H POC Glucose 172 H Hemoglobin A1c Calcium Phosphorus ALT Alkaline Phosphatase NT-Pro-B Natriuret Pep HDL Cholesterol TSH Salicylates Acetaminophen 08/17/21 08/18/21 08/18/21 22:40 02:13 04:56 MCH 27 L RDW 19.7 H Lymph % (Auto) Parmer % (Auto) Lymph # (Auto) Seg Neutrophils % Seg Neutrophils # D-Dimer Sodium Chloride 96.8 L Carbon Dioxide BUN 44 H Creatinine 9.3 H Glucose 170 H POC Glucose 190 H Hemoglobin A1c Calcium Phosphorus 6.70 H ALT Alkaline Phosphatase NT-Pro-B Natriuret Pep HDL Cholesterol TSH Salicylates Acetaminophen 08/18/21 08/18/21 08/18/21 04:56 04:56 17:01 MCH 27 L RDW 19.7 H Lymph % (Auto) Parmer % (Auto) 9.7 H Lymph # (Auto) Seg Neutrophils % Seg Neutrophils # D-Dimer Sodium Chloride Carbon Dioxide BUN Creatinine Glucose POC Glucose 228 H Hemoglobin A1c 10.2 H Calcium Phosphorus ALT Alkaline Phosphatase NT-Pro-B Natriuret Pep HDL Cholesterol TSH Salicylates Acetaminophen 08/18/21 08/19/21 08/19/21 23:58 04:37 04:37 MCH 27 L RDW 19.5 H Lymph % (Auto) Parmer % (Auto) Lymph # (Auto) Seg Neutrophils % Seg Neutrophils # D-Dimer Sodium Chloride 96.7 L Carbon Dioxide 21 L BUN 57 H Creatinine 10.2 H Glucose 151 H POC Glucose 192 H Hemoglobin A1c Calcium Phosphorus ALT Alkaline Phosphatase NT-Pro-B Natriuret Pep HDL Cholesterol TSH Salicylates Acetaminophen 08/19/21 08/19/21 08/20/21 17:46 22:59 04:24 MCH RDW Lymph % (Auto) Parmer % (Auto) Lymph # (Auto) Seg Neutrophils % Seg Neutrophils # D-Dimer Sodium 133 L Chloride 87.9 L Carbon Dioxide 15 L BUN 33 H Creatinine 7.3 H Glucose 365 H POC Glucose 217 H 282 H Hemoglobin A1c Calcium Phosphorus 6.50 H ALT Alkaline Phosphatase NT-Pro-B Natriuret Pep HDL Cholesterol TSH Salicylates Acetaminophen 08/20/21 08/20/21 08/20/21 06:07 07:51 15:37 MCH RDW Lymph % (Auto) Parmer % (Auto) Lymph # (Auto) Seg Neutrophils % Seg Neutrophils # D-Dimer Sodium Chloride Carbon Dioxide BUN Creatinine Glucose POC Glucose 398 H 308 H 247 H Hemoglobin A1c Calcium Phosphorus ALT Alkaline Phosphatase NT-Pro-B Natriuret Pep HDL Cholesterol TSH Salicylates Acetaminophen 08/20/21 08/21/21 08/21/21 23:22 04:45 05:07 MCH RDW Lymph % (Auto) Parmer % (Auto) Lymph # (Auto) Seg Neutrophils % Seg Neutrophils # D-Dimer Sodium 134 L Chloride 92.9 L Carbon Dioxide BUN 48 H Creatinine 8.0 H Glucose 389 H POC Glucose 316 H 407 H Hemoglobin A1c Calcium 10.6 H Phosphorus ALT Alkaline Phosphatase NT-Pro-B Natriuret Pep HDL Cholesterol TSH Salicylates Acetaminophen 08/21/21 08/21/21 08/21/21 11:37 15:52 23:44 MCH RDW Lymph % (Auto) Parmer % (Auto) Lymph # (Auto) Seg Neutrophils % Seg Neutrophils # D-Dimer Sodium Chloride Carbon Dioxide BUN Creatinine Glucose POC Glucose 244 H 325 H 221 H Hemoglobin A1c Calcium Phosphorus ALT Alkaline Phosphatase NT-Pro-B Natriuret Pep HDL Cholesterol TSH Salicylates Acetaminophen 08/22/21 06:06 MCH RDW Lymph % (Auto) Parmer % (Auto) Lymph # (Auto) Seg Neutrophils % Seg Neutrophils # D-Dimer Sodium Chloride Carbon Dioxide BUN Creatinine Glucose POC Glucose 224 H Hemoglobin A1c Calcium Phosphorus ALT Alkaline Phosphatase NT-Pro-B Natriuret Pep HDL Cholesterol TSH Salicylates Acetaminophen Chest x-ray: report reviewed, image reviewed Prior PFT's, U/S of legs: report reviewed, image reviewed Additional Studies: CHEST 1 VIEW 08/17/2021 10:25 AM INDICATION / CLINICAL INFORMATION: Fever. COMPARISON: 04/02/2013 FINDINGS: SUPPORT DEVICES: None. HEART / MEDIASTINUM: No significant abnormality. LUNGS / PLEURA: There is poor inspiration. No significant pulmonary or pleural abnormality. No pneumothorax. ADDITIONAL FINDINGS: No significant additional findings. IMPRESSION: 1. No acute findings. DUPLEX DOPPLER LOWER EXTREMITY VEINS, BILATERAL 08/17/21 INDICATION / CLINICAL INFORMATION: R/o DVT. TECHNIQUE: Duplex doppler imaging was performed through the veins of both lower extremities using venous compression and other maneuvers. COMPARISON: None available. FINDINGS: RIGHT COMMON FEMORAL VEIN: Negative. RIGHT FEMORAL VEIN: Negative. RIGHT POPLITEAL VEIN: Negative. RIGHT CALF VEINS: Negative. LEFT COMMON FEMORAL VEIN: Negative. LEFT FEMORAL VEIN: Negative. 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 LEFT CALF VEINS: Negative. ADDITIONAL FINDINGS: None. IMPRESSION: 1. No sonographic evidence for acute DVT in either lower extremity. 2. 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
[2021-08-22] MEDS: levETIRAcetam 500 MG TAB PO SCH (10:20)
[2021-08-22] MEDS: cloNIDine 0.2 MG TAB PO SCH ×3 (10:20→21:25)
[2021-08-22] MEDS: ASPIRIN 325 MG TAB FEEDTUBE SCH (10:28)
[2021-08-22] MEDS: LOSARTAN 50 MG TAB PO SCH (10:29)
[2021-08-22] MEDS: ACETAMINOPHEN 325 MG TAB PO PRN (10:29)
[2021-08-22] MEDS: hydrALAZINE 100 MG TAB PO SCH ×3 (10:29→21:26)
[2021-08-22] MEDS: DULoxetine 30 MG CAP PO SCH (10:29)
[2021-08-22] MEDS: METOPROLOL TARTRATE 100 MG TAB PO SCH ×2 (10:30→21:26)
[2021-08-22] MEDS: amLODIPine 10 MG TAB PO SCH ×2 (10:37→19:47)
[2021-08-22] MEDS: FAMOTIDINE 20 MG TAB FEEDTUBE SCH (10:38)
--- NOTE | 2021-08-22 11:20 | Progress Note ---
Assessment and Plan Cultures: Blood cultures no growth so far A/P: 41-year-old female past medical history CVA, ESRD on HD, diabetes now with: #SIRS versus sepsis: With fevers, tachycardia, tachypnea. Unclear source at present. #DKA: Currently on ICU with insulin drip. #Acute encephalopathy: Possibly secondary to DKA. #ESRD on HD: Renally dose medications Recs: -Stopped antibiotics. Cultures remain negative Thank you for the consult, we will continue to follow. Cole Tamayo MD [facility] ([facility]) O: [phone] F: [phone] Subjective Date of service: 08/22/21 Principal diagnosis: encephalopathy Interval history: Afebrile, normal white count. Cultures remain negative. Now on the floor. Objective - Exam Narrative Exam: Physical Exam: Constitutional: Awake, confused Head, Ears, Nose: Normocephalic, atraumatic. External ears, nose normal Eyes: Conjunctivae/corneas clear. No icterus. No ptosis. Neck: Supple, no meningeal signs Oral: dentition fair, no thrush Cardiovascular: S1, S2 normal. Respiratory: Good air entry, clear to auscultation bilaterally GI: Soft, non-tender; bowel sounds normal. No peritoneal signs. Musculoskeletal: No pedal edema, no cyanosis. Skin: No rash or abscess Hem/Lymphatic: No palpable cervical or supraclavicular nodes. No lymphangitis Psych: Confused Neurological: Confused awake - Constitutional Vitals: Vital Signs Temp Pulse Resp BP Pulse Ox 98.2 F 82 38 H 193/90 95 08/22/21 08:47 08/22/21 08:47 08/22/21 08:47 08/22/21 10:37 08/22/21 08:47 Temperature -Last 24 Hours Temperature 98.2 F Temperature 98.1 F Temperature 99.3 F Temperature 98.6 F Temperature 98.6 F Temperature 98.4 F - Labs CBC & Chem 7: 08/19/21 04:37 08/21/21 04:45 Labs: Abnormal lab results 08/21/21 08/21/21 08/21/21 Range/Units 11:37 15:52 23:44 POC Glucose 244 H 325 H 221 H (70-105) mg/dL 08/22/21 Range/Units 06:06 POC Glucose 224 H (70-105) mg/dL
[2021-08-22] MEDS: CITALOPRAM 20 MG TAB PO SCH (12:00)
--- NOTE | 2021-08-22 12:26 | Progress Note ---
Assessment and Plan This is a 41 year-old female with known past medical history of CVA, DVT, HTM, ESRD on HD(MWF), and type 2 diabetes mellitus admitted for DKA Hospital Course to Date: 08/17: Patient seen and examined at the bedside. Patient remains and obtunded, only arousable with stimuli. CT head noted with no acute abnormality. Neurology consulted. On 2L NC and able to protect her airway. Patient remains on insulin gtt per DKA protocol, BG is improving and anion gap most likely due to ESRD. Plan for HD today per Nephro, possible transition to subQ insulin post HD treatment. Patient is also febrile this am, VSS. Orders placed for blood cultures, empiric IV abx was initiated and ID was consulted. 08/18: Stable on RA this am. Awake and tracking, but not following commands. MRI brain pending, Neurology is also following. Transitioned to subQ insulin overnight, patient remains NPO due to mental status. PT/OT/Speech ordered. Patient RUE fistula clotted, Temp. Vascath inserted for HD. Vascular Surgery consulted for AVF eval and treat. BLE doppler noted. Per patient mother patient has not been on coumadin for a couple years, she was only on ASA. Patient might benefit from PO AC at discharge. Continue VTE proph, Heparin subq for now. 08/19: With left-side neglect. Awake and following commands on the right side onl y, but patient remains nonverbal. MRI brain and Neurology recs noted. C/f seizure now on Keppra per Neuro, EEG pending. Patient remains NPO, failed speech swallow due to mental status. Will insert DHT and initiate enteral nutrition. Continue PRN antihypertensives for now and resume PO antihypertensive therapy once DHT is placed. PRN Haldol added for agitation. D/w CCM patient is stable for transfer to Telemetry. 08/20: EEG today is with slowing 4-5 hz and triphasic waves mostly related to ESRD. Patient initiated on Keppra since yesterday. Pending 2D echocardiogram report. Patient appears to be more oriented and alert today. Continue to follow clinically, PT eval. BP noted to be elevated, initiated on home dose of clonidine and Norvasc. Continue to follow. 08/21: Blood glucose this morning above 400, increase Lantus dose, clinically remains unchanged, continue AED and follow clinically. Wait for PT recommendation. 08/22: Patient appears more tachypneic today with diminished breath sound bilaterally, will get a stat chest x-ray. Discontinued antibiotic today we will monitor off antibiotics. Continue to adjust BP medications follow clinically. Assessment and Plan #DKA (Diabetic Ketoacidosis) - Presented with elevated BG and anion gap metabolic acidosis - S/p DKA protocol - Hgb A1C 10.2 - Transitioned to SubQ insulin overnight - Continue SSI and BG Q6hrs since NPO - Lantus Qhs - Monitor and replace electrolytes as needed - Avoid Hypoglycemia #Possible Sepsis - High fevers this am, VSS, WBCs wnr - HD patient with AV-fistula, and h/o half-way permacath which was removed a week ago - Blood cultures with NGTD - ID on consult, appreciated recommendations - Continue current IV abx per ID - Continue to F/U on B.cultures - Daily CBC monitor #End Stage renal Disease(ESRD) on HD - Nephrology on consult, appreciated recommendation - RUE AV-Fistula clotted, Temporary Vascath inserted - Continue HD per Nephro - Strict intake and output, patient is anuric - Avoid nephrotoxic medications; Renally dose medications - Monitor and replace electrolytes as needed - Vascular Surgery consulted for AVF eval and treat #Acute Metabolic Encephalopathy #H/o CVA (cerebral infarction) with left-sided deficits - Multifactorial, DKA vs azotemia vs infectious process - Awake and tracking, not following commands - CT head noted with mo acute abnormality - S/p DKA protocol, HD per Nephro, and on IV abx - MRI brain noted - Neurology consulted, appreciated recommendations - c/f seizure, Keppra initiated per Neuro - PRN Haldolo for agitation - Fall and safety precaution - Aspiration precaution - Frequent reorientation - Avoid benzodiazepine to reduce the possibility of delirium - Maintenance of sleep-wake cycle - PT/OT/Speech ordered #HTN (Hypertension) - Hypertensive this am, patient unable to take PO meds due to alerted mentation - PO antihypertensives held - PRN Hydralazine and Labetalol for SBP greater than 160 - Continue blood pressure monitor per protocol #Elevated D-Dimer #RUE AV fistula Clotted #H/o DVT - BLE doppler showed no evidence for acute DVT in either lower extremity. 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 - Per patient's mother, patient has been off coumadin for a couple of years - Continue Heparin SubQ - Patient might benefit from PO AC at discharge, awaiting Vascular surgery recommendations #Hypothyroidism - Resume home synthroid #Dysphagia - Patient failed speech eval due to mental status - Plan to insert DHT and initiate enteral nutrition - Nutrition Consulted for TF management #GI/ DVT Prophylaxis - PPI- Pepcid - Heparin SubQ - SCDs to bilateral lower extremities while in bed #Advance care planning - Disease education data, care plan, diagnoses, and prognosis were discussed with patient's mother-Angely Roman # . Patient is full code. Patient family knowledges understanding and agreement with care plan. Subjective Date of service: 08/22/21 Principal diagnosis: encephalopathy Interval history: Patient seen and examined. Medical records and medication list reviewed. No acute event overnight noted by the RN. Patient appears more tachypneic today Discussed plan of care at bedside with patient's RN. Objective - Exam Narrative Exam: General appearance: Present: no acute distress, well-nourished, obese, nonverbal - EENT Eyes: Present: PERRL - Neck Neck: Present: normal ROM - Respiratory Respiratory effort: normal Respiratory: bilateral: diminished - Cardiovascular Rhythm: regular Heart Sounds: Present: S1 & S2 - Extremities Extremities: no ischemia, pulses intact, pulses symmetrical Peripheral Pulses: within normal limits - Abdominal General gastrointestinal: soft, non-distended, normal bowel sounds - Integumentary Integumentary: Present: clear, warm, dry - Psychiatric Psychiatric: other (Awake, does not follow command. Nonverbal) - Neurologic Neurologic: focal deficits (Left side weakness and left side neglect), other (Awake, Nonverbal) - Allied Health Allied health notes reviewed: nursing, case management - Constitutional Vitals: Vital Signs - 12hr 08/22/21 08/22/21 08/22/21 02:22 05:11 08:47 Temperature 98.1 F 98.2 F Pulse Rate 80 82 82 Respiratory 40 H 38 H Rate Blood Pressure 155/86 193/101 Blood Pressure [Right] O2 Sat by Pulse 97 95 Oximetry 08/22/21 08/22/21 08/22/21 10:08 10:20 10:29 Temperature Pulse Rate 77 Respiratory 38 H Rate Blood Pressure 193/90 193/90 Blood Pressure 160/74 [Right] O2 Sat by Pulse 37 L Oximetry 08/22/21 08/22/21 10:30 10:37 Temperature Pulse Rate Respiratory Rate Blood Pressure 190/93 193/90 Blood Pressure [Right] O2 Sat by Pulse Oximetry - Labs CBC & Chem 7: 08/19/21 04:37 08/21/21 04:45 Labs: Abnormal lab results 08/21/21 08/21/21 08/22/21 Range/Units 15:52 23:44 06:06 POC Glucose 325 H 221 H 224 H (70-105) mg/dL
--- NOTE | 2021-08-22 12:55 | XRay Report ---
CHEST 1 VIEW 08/22/2021 12:35 PM INDICATION / CLINICAL INFORMATION: Tachypnea. COMPARISON: 08/17/21. FINDINGS: SUPPORT DEVICES: There is a new feeding tube coursing into the stomach with the tip not seen. HEART / MEDIASTINUM: Mild cardiomegaly is stable. LUNGS / PLEURA: Lung volumes have improved. No acute pulmonary or pleural abnormality. No pneumothora x. ADDITIONAL FINDINGS: There is partial resection of the distal right clavicle. There is a vascular gra ft in the left axillary region. IMPRESSION: No acute findings. Signer Name: Jordan Silverman MD Signed: 08/22/2021 12:50 PM Workstation Name: [id number]
--- NOTE | 2021-08-22 13:07 | Progress Note ---
Assessment and Plan 1. ESRD: Patient is on maintenance HD, MWF schedule. Last outpatient HD 08/12/21. Meds dosage based on GFR. Hemodialysis: 08/17, 08/19, 08/12. 2. FEN: Metabolic acidosis, s/p HD, monitor. UF with HD as tolerated. Monitor lytes and volume status. 3. Diabetic Hyperosmolar State, POA: S/p Insulin gtt. Per protocol. 4. Malfunctioning hemodialysis access: Patient presented with no functioning hemodialysis access. S/p R femoral non-tunnel catheter. Seen by Vascular. 5. Acute Metabolic Encephalopathy, POA: 2/[address] head and MRI brain negative. Followed by Neuro. 6. SIRS versus sepsis: Unclear source at present. Abx per ID. 7. HTN: Adjust meds as needed. Monitor BP. Subjective: Patient was seen and examined at the bedside in the HD unit. Nurse at the bedside. Examination: General appearance: well-developed, well-nourished, appears stated age, no distress HEENT: ATNC, pupils equal Neck: trachea midline Respiratory: Clear to Auscultation Cardiology: regular, S1S2, no murmur Gastrointestinal: soft, normoactive bowel sounds, not tender, ND Integumentary: no rash Neurologic: alert, tracking thru eyes, non-verbal, not following any command Ext: no edema noted, mittens noted Hemodialysis access: R femoral non-tunnel catheter Subjective Date of service: 08/22/21 Principal diagnosis: encephalopathy Objective - Vital Signs Vital signs: Vital Signs - 12hr 08/22/21 08/22/21 08/22/21 02:22 05:11 08:47 Temperature 98.1 F 98.2 F Pulse Rate 80 82 82 Respiratory 40 H 38 H Rate Blood Pressure 155/86 193/101 Blood Pressure [Right] O2 Sat by Pulse 97 95 Oximetry 08/22/21 08/22/21 08/22/21 10:08 10:20 10:29 Temperature Pulse Rate 77 Respiratory 38 H Rate Blood Pressure 193/90 193/90 Blood Pressure 160/74 [Right] O2 Sat by Pulse 37 L Oximetry 08/22/21 08/22/21 10:30 10:37 Temperature Pulse Rate Respiratory Rate Blood Pressure 190/93 193/90 Blood Pressure [Right] O2 Sat by Pulse Oximetry - Lab 08/19/21 04:37 08/21/21 04:45 Most recent lab results Calcium 10.6 mg/dL (8.4-10.2) H 08/21/21 04:45 Phosphorus 6.50 mg/dL (2.5-4.5) H 08/20/21 04:24 Magnesium 2.00 mg/dL (1.7-2.3) 08/20/21 04:24 Medications & Allergies - Medications Allergies/Adverse Reactions: Allergies vancomycin Adverse Reaction (Verified 04/02/13 10:16) Hives Home Medications: Home Medications Medication Instructions Recorded Confirmed Last Taken Type Hydralazine HCl [hydrALAZINE] 100 mg PO BID 04/02/13 08/17/21 04/02/13 08:00 History Aspirin/Dipyridamole [Aggrenox] 1 cap PO BID #60 capsule 04/10/13 08/17/21 Unknown Rx Cinacalcet [Sensipar] 60 mg PO QDAY 08/17/21 08/17/21 Unknown History Citalopram [celeXA] 20 mg PO QDAY 08/17/21 08/17/21 Unknown History Ergocalciferol [Vitamin D2] 1 cap PO QWEEK 08/17/21 08/17/21 Unknown History Gabapentin [Neurontin] 100 mg PO Q8HR 08/17/21 08/17/21 Unknown History Insulin Glargine,Hum.rec.anlog 55 unit SQ BID 08/17/21 08/17/21 Unknown History [Lantus Solostar] Promethazine [Phenergan] 25 mg PO Q6HR PRN 08/17/21 08/17/21 Unknown History Sevelamer Carbonate [Renvela] 800 mg PO TIDWM 08/17/21 08/17/21 Unknown History amLODIPine [Norvasc] 10 mg PO DAILY 08/17/21 08/17/21 Unknown History carvediloL [Coreg] 25 mg PO BID 08/17/21 08/17/21 Unknown History cloNIDine [Catapres] 0.2 mg PO BID 08/17/21 08/17/21 Unknown History Active Medications: Generic Name Dose Route Start Last Admin Trade Name Freq PRN Reason Stop Dose Admin Acetaminophen 650 mg 08/17/21 07:50 08/22/21 10:29 Acetaminophen 325 Mg Tab PO 650 mg Q6H PRN Administration Pain, Mild (1-3) Acetaminophen 650 mg 08/17/21 08:17 08/17/21 14:49 Acetaminophen 650 Mg Rect Supp [place] 650 mg Q4H PRN Administration Pain, Mild (1-3) Amlodipine Besylate 10 mg 08/22/21 11:00 08/22/21 10:37 Amlodipine 10 Mg Tab PO 10 mg QDAY HAM Administration Aspirin 325 mg 08/22/21 10:00 08/22/21 10:28 Aspirin 325 Mg Tab FEEDTUBE 325 mg QDAY HAM Administration Citalopram Hydrobromide 20 mg 08/22/21 11:00 Citalopram 20 Mg Tab PO QDAY HAM Clonidine HCl 0.2 mg 08/22/21 11:00 08/22/21 10:37 Clonidine 0.2 Mg Tab PO 0.2 mg Q12HR HAM Administration Dextrose 50 ml 08/17/21 23:37 Dextrose 50% In Water (25gm) 50 Ml Syringe IV Q30MIN PRN Hypoglycemia Protocol Duloxetine HCl 30 mg 08/21/21 10:00 08/22/21 10:29 Duloxetine 30 Mg Cap PO 30 mg QDAY HAM Administration Famotidine 20 mg 08/20/21 10:00 08/22/21 10:38 Famotidine 20 Mg Tab FEEDTUBE 20 mg QDAY HAM Administration Haloperidol Lactate 5 mg 08/19/21 12:00 08/19/21 16:14 Haloperidol Lactate 5 Mg/1 Ml Inj IV 5 mg Q6H PRN Administration Agitation Heparin Sodium (Porcine) 5,000 unit 08/17/21 06:00 08/22/21 06:14 Heparin 5,000 Unit/1 Ml Vial SUB-Q 5,000 unit Q8HR HAM Administration Heparin Sodium (Porcine) 3,000 unit 08/17/21 07:41 Heparin 10,000 Units/10 Ml Vial IV KATI PRN hemodialysis Hydralazine HCl 100 mg 08/17/21 09:00 08/22/21 10:29 Hydralazine 100 Mg Tab PO 100 mg TID HAM Administration Hydralazine HCl 10 mg 08/17/21 07:56 08/20/21 23:39 Hydralazine 20 Mg/1 Ml Inj IV 10 mg Q4HR PRN Administration Hypertension Hydromorphone HCl 0.25 mg 08/17/21 07:50 08/20/21 05:40 Hydromorphone 0.5 Mg/0.5 Ml Inj IV 0.25 mg Q4H PRN Administration Pain, Moderate (4-6) Sodium Chloride 100 mls @ 999 mls/hr 08/18/21 10:08 Nacl 0.9% IV KATI PRN Hypotension Insulin Glargine 25 units 08/21/21 10:19 08/21/21 21:28 Insulin Glargine 100 Units/Ml SUB-Q 25 units QHS HAM Administration Insulin Human Lispro 0 unit 08/18/21 00:00 08/22/21 06:14 Insulin Lispro 100 Unit/Ml SUB-Q 3 unit Q6HR HAM Administration Protocol Levetiracetam 500 mg 08/20/21 10:00 08/22/21 10:20 Levetiracetam 500 Mg Tab PO 500 mg DAILY HAM Administration Levothyroxine Sodium 125 mcg 08/22/21 06:00 08/22/21 06:14 Levothyroxine 125 Mcg Tab PO 125 mcg QAM@0600 HAM Administration Losartan Potassium 50 mg 08/17/21 10:00 08/22/21 10:29 Losartan 50 Mg Tab PO 50 mg QDAY HAM Administration Magnesium Hydroxide 30 ml 08/17/21 04:09 Magnesium Hydroxide (Mom) Oral Liqd Udc PO Q4H PRN Constipation Metoprolol Tartrate 100 mg 08/20/21 11:00 08/22/21 10:30 Metoprolol Tartrate 100 Mg Tab PO 100 mg BID HAM Administration Ondansetron HCl 4 mg 08/17/21 04:09 Ondansetron 4 Mg/2 Ml Inj IV Q8H PRN Nausea And Vomiting Sodium Chloride 10 ml 08/17/21 10:00 08/22/21 10:31 Sodium Chloride 0.9% 10 Ml Flush Syringe IV 10 ml BID HAM Administration Sodium Chloride 10 ml 08/17/21 04:09 08/19/21 02:59 Sodium Chloride 0.9% 10 Ml Flush Syringe IV 10 ml PRN PRN Administration LINE FLUSH
[2021-08-22] MEDS: INSULIN GLARGINE 100 UNITS/ML SUB-Q SCH (21:24)
[2021-08-23] MEDS: INSULIN LISPRO 100 UNIT/ML SUB-Q SCH ×5 (01:00→23:56)
[2021-08-23 05:37] LABS: Calcium 10.9 mg/dL (8.4-10.2)
[2021-08-23] MEDS: HEPARIN 5,000 UNIT/1 ML VIAL SUB-Q SCH ×3 (05:54→21:34)
[2021-08-23] MEDS: LEVOTHYROXINE 125 MCG TAB PO SCH (05:54)
[2021-08-23] MEDS: hydrALAZINE 20 MG/1 ML INJ IV PRN (08:17)
[2021-08-23] MEDS: hydrALAZINE 100 MG TAB PO SCH ×3 (08:29→20:55)
[2021-08-23] MEDS: HYDROmorphone 0.5 MG/0.5 ML INJ IV PRN (08:30)
--- NOTE | 2021-08-23 09:29 | XRay Report ---
XR abdomen 1V ap INDICATION: ngt placement. COMPARISON: None available. FINDINGS: The tip of the esophagogastric tube projects over the body of the stomach. Signer Name: Xu Blanchard MD Signed: 08/23/2021 9:24 AM Workstation Name: [id number]
--- NOTE | 2021-08-23 09:55 | Progress Note ---
Assessment and Plan Assessment and plan: This is a 41 year-old female with known past medical history of CVA, DVT, HTM, ESRD on HD(MWF), and type 2 diabetes mellitus admitted for DKA Hospital Course to Date: 08/17: Patient seen and examined at the bedside. Patient remains and obtunded, only arousable with stimuli. CT head noted with no acute abnormality. Neurology consulted. On 2L NC and able to protect her airway. Patient remains on insulin gtt per DKA protocol, BG is improving and anion gap most likely due to ESRD. Plan for HD today per Nephro, possible transition to subQ insulin post HD treatment. Patient is also febrile this am, VSS. Orders placed for blood cultures, empiric IV abx was initiated and ID was consulted. 08/18: Stable on RA this am. Awake and tracking, but not following commands. MRI brain pending, Neurology is also following. Transitioned to subQ insulin overnight, patient remains NPO due to mental status. PT/OT/Speech ordered. Patient RUE fistula clotted, Temp. Vascath inserted for HD. Vascular Surgery consulted for AVF eval and treat. BLE doppler noted. Per patient mother patient has not been on coumadin for a couple years, she was only on ASA. Patient might benefit from PO AC at discharge. Continue VTE proph, Heparin subq for now. 08/19: With left-side neglect. Awake and following commands on the right side only, but patient remains nonverbal. MRI brain and Neurology recs noted. C/f seizure now on Keppra per Neuro, EEG pending. Patient remains NPO, failed speech swallow due to mental status. Will insert DHT and initiate enteral nutrition. Continue PRN antihypertensives for now and resume PO antihypertensive therapy once DHT is placed. PRN Haldol added for agitation. D/w CCM patient is stable for transfer to Telemetry. 08/20: EEG today is with slowing 4-5 hz and triphasic waves mostly related to ESRD. Patient initiated on Keppra since yesterday. Pending 2D echocardiogram report. Patient appears to be more oriented and alert today. Continue to follow clinically, PT eval. BP noted to be elevated, initiated on home dose of clonidine and Norvasc. Continue to follow. 08/21: Blood glucose this morning above 400, increase Lantus dose, clinically remains unchanged, continue AED and follow clinically. Wait for PT recommendation. 08/22: Patient appears more tachypneic today with diminished breath sound bilaterally, will get a stat chest x-ray. Discontinued antibiotic today we will monitor off antibiotics. Continue to adjust BP medications follow clinically. Assessment and Plan #RUE AV fistula Clotted; Vascular evaluated the patient, possible vascular procedure today #DKA (Diabetic Ketoacidosis) - Presented with elevated BG and anion gap metabolic acidosis - S/p DKA protocol - Hgb A1C 10.2 - Transitioned to SubQ insulin overnight - Continue SSI and BG Q6hrs since NPO - Lantus Qhs - Monitor and replace electrolytes as needed - Avoid Hypoglycemia #Possible Sepsis - High fevers this am, VSS, WBCs wnr - HD patient with AV-fistula, and h/o retirement permacath which was removed a week ago - Blood cultures with NGTD - ID on consult, appreciated recommendations - Continue current IV abx per ID - Continue to F/U on B.cultures - Daily CBC monitor #End Stage renal Disease(ESRD) on HD - Nephrology on consult, appreciated recommendation - RUE AV-Fistula clotted, Temporary Vascath inserted - Continue HD per Nephro - Strict intake and output, patient is anuric - Avoid nephrotoxic medications; Renally dose medications - Monitor and replace electrolytes as needed - Vascular Surgery consulted for AVF eval and treat #Acute Metabolic Encephalopathy #H/o CVA (cerebral infarction) with left-sided deficits - Multifactorial, DKA vs azotemia vs infectious process - Awake and tracking, not following commands - CT head noted with mo acute abnormality - S/p DKA protocol, HD per Nephro, and on IV abx - MRI brain noted - Neurology consulted, appreciated recommendations - c/f seizure, Keppra initiated per Neuro - PRN Haldolo for agitation - Fall and safety precaution - Aspiration precaution - Frequent reorientation - Avoid benzodiazepine to reduce the possibility of delirium - Maintenance of sleep-wake cycle - PT/OT/Speech ordered #HTN (Hypertension) - Hypertensive this am, patient unable to take PO meds due to alerted mentation - PO antihypertensives held - PRN Hydralazine and Labetalol for SBP greater than 160 - Continue blood pressure monitor per protocol #Elevated D-Dimer #H/o DVT - BLE doppler showed no evidence for acute DVT in either lower extremity. 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 - Per patient's mother, patient has been off coumadin for a couple of years - Continue Heparin SubQ - Patient might benefit from PO AC at discharge, awaiting Vascular surgery recommendations #Hypothyroidism - Resume home synthroid #Dysphagia - Patient failed speech eval due to mental status - Plan to insert DHT and initiate enteral nutrition - Nutrition Consulted for TF management #GI/ DVT Prophylaxis - PPI- Pepcid - Heparin SubQ - SCDs to bilateral lower extremities while in bed #Advance care planning - Disease education data, care plan, diagnoses, and prognosis were discussed with patient's mother-Angely Roman # . Patient is full code. Patient family knowledges understanding and agreement with care plan. Closely monitor the patient and adjust management as needed Plan of care reviewed with the patient and her nurse History Interval history: I have seen and examined the patient at the bedside Patient's chart and medications reviewed Patient was scheduled for vascular procedure today Patient has no new complaints End-stage renal disease on hemodialysis Vital signs noted Hospitalist Physical - Constitutional Vitals: Temp Pulse Resp BP Pulse Ox 99.0 F 82 20 194/96 91 08/23/21 07:59 08/23/21 08:17 08/23/21 07:59 08/23/21 08:17 08/23/21 07:59 General appearance: Present: no acute distress, well-nourished, other (Does not respond, nonverbal, randomly moves) - EENT Eyes: Present: PERRL, EOM intact - Neck Neck: Present: supple, normal ROM - Respiratory Respiratory effort: normal Respiratory: bilateral: diminished, negative: rales, rhonchi, wheezing - Cardiovascular Rhythm: regular Heart Sounds: Present: S1 & S2 - Extremities Extremities: no ischemia, No edema - Abdominal General gastrointestinal: soft, non-tender, non-distended, normal bowel sounds - Integumentary Integumentary: Present: clear, warm - Psychiatric Psychiatric: appropriate mood/affect, cooperative - Neurologic Neurologic: moves all extremities Results - Labs CBC & Chem 7: 08/19/21 04:37 08/23/21 04:20 Labs: Laboratory Last Values WBC 8.3 K/mm3 (4.5-11.0) 08/19/21 04:37 RBC 4.57 M/mm3 (3.65-5.03) 08/19/21 04:37 Hgb 12.1 gm/dl (10.1-14.3) 08/19/21 04:37 Hct 39.9 % (30.3-42.9) 08/19/21 04:37 MCV 87 fl (79-97) 08/19/21 04:37 MCH 27 pg (28-32) L 08/19/21 04:37 MCHC 30 % (30-34) 08/19/21 04:37 RDW 19.5 % (13.2-15.2) H 08/19/21 04:37 Plt Count 169 K/mm3 (140-440) 08/19/21 04:37 Lymph % (Auto) 25.1 % (13.4-35.0) 08/18/21 04:56 [place] % (Auto) 9.7 % (0.0-7.3) H 08/18/21 04:56 Eos % (Auto) 0.1 % (0.0-4.3) 08/18/21 04:56 Baso % (Auto) 1.1 % (0.0-1.8) 08/18/21 04:56 Lymph # (Auto) 2.2 K/mm3 (1.2-5.4) 08/18/21 04:56 [place] # (Auto) 0.8 K/mm3 (0.0-0.8) 08/18/21 04:56 Eos # (Auto) 0.0 K/mm3 (0.0-0.4) 08/18/21 04:56 Baso # (Auto) 0.1 K/mm3 (0.0-0.1) 08/18/21 04:56 Seg Neutrophils % 64.0 % (40.0-70.0) 08/18/21 04:56 Seg Neutrophils # 5.5 K/mm3 (1.8-7.7) 08/18/21 04:56 PT 13.7 Sec. (12.2-14.9) 08/17/21 02:07 INR 0.95 (0.87-1.13) 08/17/21 02:07 APTT 26.8 Sec. (24.2-36.6) 08/17/21 02:07 D-Dimer 2695.37 ng/mlDDU (0-234) H 08/17/21 14:40 Sodium 139 mmol/L (137-145) 08/23/21 04:20 Potassium 3.9 mmol/L (3.6-5.0) 08/23/21 04:20 Chloride 94.4 mmol/L (98-107) L 08/23/21 04:20 Carbon Dioxide 25 mmol/L (22-30) 08/23/21 04:20 Anion Gap 24 mmol/L 08/23/21 04:20 BUN 49 mg/dL (7-17) H 08/23/21 04:20 Creatinine 7.7 mg/dL (0.6-1.2) H 08/23/21 04:20 Estimated GFR 7 ml/min 08/23/21 04:20 BUN/Creatinine Ratio 6 % 08/23/21 04:20 Glucose 201 mg/dL (65-100) H 08/23/21 04:20 POC Glucose 210 mg/dL (70-105) H 08/23/21 05:37 Hemoglobin A1c 10.2 % (4-6) H 08/18/21 04:56 Lactic Acid 1.70 mmol/L (0.7-2.0) 08/17/21 02:07 Calcium 10.9 mg/dL (8.4-10.2) H 08/23/21 04:20 Phosphorus 6.50 mg/dL (2.5-4.5) H 08/20/21 04:24 Magnesium 2.00 mg/dL (1.7-2.3) 08/20/21 04:24 Total Bilirubin 0.40 mg/dL (0.1-1.2) 08/17/21 02:07 AST 11 units/L (5-40) 08/17/21 02:07 ALT < 5 units/L (7-56) L 08/17/21 02:07 Alkaline Phosphatase 182 units/L (35-129) H 08/17/21 02:07 NT-Pro-B Natriuret Pep 78528 pg/mL (0-450) H 08/17/21 02:07 Total Protein 7.8 g/dL (6.3-8.2) 08/17/21 02:07 Albumin 3.9 g/dL (3.9-5) 08/17/21 02:07 Albumin/Globulin Ratio 1.0 % 08/17/21 02:07 Triglycerides 128 mg/dL (2-149) 08/17/21 14:40 Cholesterol 128 mg/dL (50-199) 08/17/21 14:40 LDL Cholesterol Direct 69 mg/dL (50-130) 08/17/21 14:40 HDL Cholesterol 30 mg/dL (40-59) L 08/17/21 14:40 Cholesterol/HDL Ratio 4.26 % 08/17/21 14:40 TSH 5.080 mlU/mL (0.270-4.200) H 08/17/21 02:07 Salicylates < 0.3 mg/dL (2.8-20.0) L 08/17/21 02:07 Acetaminophen 5.0 ug/mL (10.0-30.0) L 08/17/21 02:07 Plasma/Serum Alcohol < 0.01 % (0-0.07) 08/17/21 02:07 SARS-CoV-2 (PCR) Negative (Negative) 08/17/21 09:12 Hepatitis A IgM Ab Non-reactive (NonReactive) 08/17/21 14:40 Hep Bs Antigen Non-reactive (Negative) 08/17/21 14:40 Hep B Core IgM Ab Non-reactive (NonReactive) 08/17/21 14:40 Hepatitis C Antibody Non-reactive (NonReactive) 08/17/21 14:40 Blood Type O POSITIVE 08/17/21 17:43 Antibody Screen Negative 08/17/21 17:43 Microbiology: Microbiology 08/17/21 17:47 Peripheral/Venous Blood Culture - Final NO GROWTH AFTER 5 DAYS 08/17/21 15:00 Peripheral/Venous Blood Culture - Final NO GROWTH AFTER 5 DAYS Tomas/IV: Voiding Method Incontinent Active Medications - Current Medications Current Medications: Generic Name Dose Route Start Last Admin Trade Name Freq PRN Reason Stop Dose Admin Acetaminophen 650 mg 08/17/21 07:50 08/22/21 10:29 Acetaminophen 325 Mg Tab PO 650 mg Q6H PRN Administration Pain, Mild (1-3) Acetaminophen 650 mg 08/17/21 08:17 08/17/21 14:49 Acetaminophen 650 Mg Rect Supp [place] 650 mg Q4H PRN Administration Pain, Mild (1-3) Amlodipine Besylate 10 mg 08/22/21 11:00 08/22/21 10:37 Amlodipine 10 Mg Tab PO 10 mg QDAY HAM Administration Aspirin 325 mg 08/22/21 10:00 08/22/21 10:28 Aspirin 325 Mg Tab FEEDTUBE 325 mg QDAY HAM Administration Citalopram Hydrobromide 20 mg 08/22/21 11:00 08/22/21 12:00 Citalopram 20 Mg Tab PO Not Given QDAY HAM Clonidine HCl 0.2 mg 08/22/21 11:00 08/22/21 21:25 Clonidine 0.2 Mg Tab PO 0.2 mg Q12HR HAM Administration Dextrose 50 ml 08/17/21 23:37 Dextrose 50% In Water (25gm) 50 Ml Syringe IV Q30MIN PRN Hypoglycemia Protocol Duloxetine HCl 30 mg 08/21/21 10:00 08/22/21 10:29 Duloxetine 30 Mg Cap PO 30 mg QDAY HAM Administration Famotidine 20 mg 08/20/21 10:00 08/22/21 10:38 Famotidine 20 Mg Tab FEEDTUBE 20 mg QDAY HAM Administration Haloperidol Lactate 5 mg 08/19/21 12:00 08/19/21 16:14 Haloperidol Lactate 5 Mg/1 Ml Inj IV 5 mg Q6H PRN Administration Agitation Heparin Sodium (Porcine) 5,000 unit 08/17/21 06:00 08/23/21 05:54 Heparin 5,000 Unit/1 Ml Vial SUB-Q 5,000 unit Q8HR HAM Administration Heparin Sodium (Porcine) 3,000 unit 08/17/21 07:41 Heparin 10,000 Units/10 Ml Vial IV KATI PRN hemodialysis Hydralazine HCl 100 mg 08/17/21 09:00 08/23/21 08:29 Hydralazine 100 Mg Tab PO 100 mg TID HAM Administration Hydralazine HCl 10 mg 08/17/21 07:56 08/23/21 08:17 Hydralazine 20 Mg/1 Ml Inj IV 10 mg Q4HR PRN Administration Hypertension Hydromorphone HCl 0.25 mg 08/17/21 07:50 08/23/21 08:30 Hydromorphone 0.5 Mg/0.5 Ml Inj IV 0.25 mg Q4H PRN Administration Pain, Moderate (4-6) Sodium Chloride 100 mls @ 999 mls/hr 08/18/21 10:08 Nacl 0.9% IV KATI PRN Hypotension Insulin Glargine 25 units 08/21/21 10:19 08/22/21 21:24 Insulin Glargine 100 Units/Ml SUB-Q 25 units QHS HAM Administration Insulin Human Lispro 0 unit 08/18/21 00:00 08/23/21 06:02 Insulin Lispro 100 Unit/Ml SUB-Q 3 unit Q6HR HAM Administration Protocol Levetiracetam 500 mg 08/20/21 10:00 08/22/21 10:20 Levetiracetam 500 Mg Tab PO 500 mg DAILY HAM Administration Levothyroxine Sodium 125 mcg 08/22/21 06:00 08/23/21 05:54 Levothyroxine 125 Mcg Tab PO 125 mcg QAM@0600 HAM Administration Losartan Potassium 50 mg 08/17/21 10:00 08/22/21 10:29 Losartan 50 Mg Tab PO 50 mg QDAY HAM Administration Magnesium Hydroxide 30 ml 08/17/21 04:09 Magnesium Hydroxide (Mom) Oral Liqd Udc PO Q4H PRN Constipation Metoprolol Tartrate 100 mg 08/20/21 11:00 08/22/21 21:26 Metoprolol Tartrate 100 Mg Tab PO 100 mg BID HAM Administration Ondansetron HCl 4 mg 08/17/21 04:09 Ondansetron 4 Mg/2 Ml Inj IV Q8H PRN Nausea And Vomiting Sodium Chloride 10 ml 08/17/21 10:00 08/22/21 21:26 Sodium Chloride 0.9% 10 Ml Flush Syringe IV 10 ml BID HAM Administration Sodium Chloride 10 ml 08/17/21 04:09 08/19/21 02:59 Sodium Chloride 0.9% 10 Ml Flush Syringe IV 10 ml PRN PRN Administration LINE FLUSH Nutrition/Malnutrition Assess - Dietary Evaluation Nutrition/Malnutrition Findings: Nutrition Notes Start: 08/17/21 12:51 Freq: Status: Active Protocol: Document 08/22/21 17:48 GABRIEL (Rec: 08/22/21 18:10 GABRIEL [email or web address]) Nutrition Notes Initial or Follow up Brief Note Current Diagnosis CKD (stage V CKD),Diabetes, Sepsis,Hypertension,Stroke Other Pertinent Diagnosis ESRD+HD/Fistula Malfunction, Metabolic Encephalopathy & Acidosis, DKA, SIRS Current Diet TF-Nepro @ 40 ml/hr (since D 08/19), NPO (from 08/23 00:01) . Height 5 ft 8 in Weight 104.32 kg [place] Body Weight (kg) 63.63 BMI 34.9 Weight change and time frame No body weight change in 5 days reported. Weight Status Obese Subjective/Other Information RD consult for routine F/U on TF tolerance/continuation. TF continues as prescribed, will be discontinued after midnight. Pt is on Room Air, O2 saturation @ 98%, according to Physical Assessment History notes. Percent of energy/protein needs met: Prescribed TF-Nepro w/ CARBSTEADY @ 40 ml/hr provides for energy/protein needs (1, 728 Kcal/78 g) during LOS, 104 % Kcal; 77% AA. #1 Nutrition Diagnosis Inadequate oral intake Diagnosis Progress(for reassessment Continues documentation) Is patient on ventilator? No Is Patient Ambulatory and/or Out of Bed No REE-([facility]-confined to bed) 2098.920 Kcal/Kg value to use for calculation 16 Approximate Energy Requirements Using 1669 kcal/Kg Additional Notes Protein: >1.2 g/Kg AdjBW; >101 g/day. Fluids: 1 ml/Kcal, or as per MD. Nutrition Intervention Nutrition Support: Continue TF-Nepro w/CARBSTEADY @ 40 ml/hr. Flush: 150 ml water Q 4 hr, or as per MD. Kcal 1,728 Protein (gm) 78 Carbohydrates (gm) 155 Fat (gm) 92 Fluid (mL) 698 Fiber (gm) 12 % RDI: 104% Kcal; 77% AA. Goal #1 Provide at least 75% of energy /protein needs through Enteral Feeding during LOS. Goal #2 Maintain body weight within +/ -3% of admission body weight during LOS. Follow-Up By: 08/24/21 Additional Comments When pertinent, continue monitoring TF tolerance, DOPER OPERATOR evaluation, and BM.
[2021-08-23] MEDS: cloNIDine 0.2 MG TAB PO SCH ×2 (10:47→21:33)
[2021-08-23] MEDS: levETIRAcetam 500 MG TAB PO SCH (10:47)
[2021-08-23] MEDS: HEPARIN/NS 5000 UNIT/500ML 1,000 ML IR ONE ×2 (10:54→13:00)
[2021-08-23] MEDS: LIDOCAINE 2%/EPINEPHRINE 1:200,000 VIAL (20 ML) INFILTRATI ONE ×3 (10:55→13:25)
[2021-08-23] MEDS: LOSARTAN 50 MG TAB PO SCH (11:00)
[2021-08-23] MEDS: CITALOPRAM 20 MG TAB PO SCH (11:00)
[2021-08-23] MEDS: METOPROLOL TARTRATE 100 MG TAB PO SCH ×2 (11:00→21:34)
[2021-08-23] MEDS ORDERED: HEPARIN 10,000 UNITS/10 ML VIAL ONE (12:52)
[2021-08-23] MEDS ORDERED: ceFAZolin/Water 2 GM/20 ML 2 GM/20 ML SYRINGE IV ONE (12:52)
[2021-08-23] MEDS ORDERED: SODIUM CHLORIDE 0.9% 500 ML 500 ML ONE (12:52)
[2021-08-23] MEDS ORDERED: WATER FOR INJ Sterile (PF) 10 ML ONE (13:18)
--- NOTE | 2021-08-23 13:18 | Progress Note ---
Assessment and Plan ESRD - HD in am HTN - F/u on meds HyperCalcemia - Low Ca bath on HD HD Access - Femoral Vascath in place, Vasc Surg for Permcath Subjective Date of service: 08/23/21 Principal diagnosis: encephalopathy Interval history: S/p Cardiac Cath today Objective - Vital Signs Vital signs: Vital Signs - 12hr 08/23/21 08/23/21 08/23/21 04:00 04:05 07:59 Temperature 99.3 F 99.0 F Pulse Rate 81 80 87 Respiratory 18 20 Rate Blood Pressure 155/82 199/106 Blood Pressure [Right] O2 Sat by Pulse 100 91 Oximetry 08/23/21 08/23/21 08/23/21 08:17 10:47 11:36 Temperature Pulse Rate 82 75 Respiratory Rate Blood Pressure 194/96 175/91 Blood Pressure 169/81 [Right] O2 Sat by Pulse Oximetry 08/23/21 08/23/21 12:00 12:30 Temperature Pulse Rate 68 Respiratory 18 Rate Blood Pressure Blood Pressure 180/70 140/70 [Right] O2 Sat by Pulse 100 100 Oximetry - General Appearance General appearance: well-developed EENT: PERRL Neck: no JVD Respiratory: Present: Other (Good air entry) Cardiology: regular, S1S2 Gastrointestinal: other (Soft) - Lab 08/24/21 04:23 08/24/21 04:23 Most recent lab results Calcium 10.9 mg/dL (8.4-10.2) H 08/23/21 04:20 Phosphorus 6.50 mg/dL (2.5-4.5) H 08/20/21 04:24 Magnesium 2.00 mg/dL (1.7-2.3) 08/20/21 04:24 Medications & Allergies - Medications Allergies/Adverse Reactions: Allergies vancomycin Adverse Reaction (Verified 04/02/13 10:16) Hives Home Medications: Home Medications Medication Instructions Recorded Confirmed Last Taken Type Hydralazine HCl [hydrALAZINE] 100 mg PO BID 04/02/13 08/17/21 04/02/13 08:00 History Aspirin/Dipyridamole [Aggrenox] 1 cap PO BID #60 capsule 04/10/13 08/17/21 Unknown Rx Cinacalcet [Sensipar] 60 mg PO QDAY 08/17/21 08/17/21 Unknown History Citalopram [celeXA] 20 mg PO QDAY 08/17/21 08/17/21 Unknown History Ergocalciferol [Vitamin D2] 1 cap PO QWEEK 08/17/21 08/17/21 Unknown History Gabapentin [Neurontin] 100 mg PO Q8HR 08/17/21 08/17/21 Unknown History Insulin Glargine,Hum.rec.anlog 55 unit SQ BID 08/17/21 08/17/21 Unknown History [Lantus Solostar] Promethazine [Phenergan] 25 mg PO Q6HR PRN 08/17/21 08/17/21 Unknown History Sevelamer Carbonate [Renvela] 800 mg PO TIDWM 08/17/21 08/17/21 Unknown History amLODIPine [Norvasc] 10 mg PO DAILY 08/17/21 08/17/21 Unknown History carvediloL [Coreg] 25 mg PO BID 08/17/21 08/17/21 Unknown History cloNIDine [Catapres] 0.2 mg PO BID 08/17/21 08/17/21 Unknown History Active Medications: Generic Name Dose Route Start Last Admin Trade Name Freq PRN Reason Stop Dose Admin Acetaminophen 650 mg 08/17/21 07:50 08/22/21 10:29 Acetaminophen 325 Mg Tab PO 650 mg Q6H PRN Administration Pain, Mild (1-3) Acetaminophen 650 mg 08/17/21 08:17 08/17/21 14:49 Acetaminophen 650 Mg Rect Supp [place] 650 mg Q4H PRN Administration Pain, Mild (1-3) Amlodipine Besylate 10 mg 08/22/21 11:00 08/22/21 10:37 Amlodipine 10 Mg Tab PO 10 mg QDAY HAM Administration Aspirin 325 mg 08/22/21 10:00 08/22/21 10:28 Aspirin 325 Mg Tab FEEDTUBE 325 mg QDAY HAM Administration Citalopram Hydrobromide 20 mg 08/22/21 11:00 08/22/21 12:00 Citalopram 20 Mg Tab PO Not Given QDAY HAM Clonidine HCl 0.2 mg 08/22/21 11:00 08/23/21 10:47 Clonidine 0.2 Mg Tab PO 0.2 mg Q12HR HAM Administration Dextrose 50 ml 08/17/21 23:37 Dextrose 50% In Water (25gm) 50 Ml Syringe IV Q30MIN PRN Hypoglycemia Protocol Duloxetine HCl 30 mg 08/21/21 10:00 08/22/21 10:29 Duloxetine 30 Mg Cap PO 30 mg QDAY HAM Administration Famotidine 20 mg 08/20/21 10:00 08/22/21 10:38 Famotidine 20 Mg Tab FEEDTUBE 20 mg QDAY HAM Administration Haloperidol Lactate 5 mg 08/19/21 12:00 08/19/21 16:14 Haloperidol Lactate 5 Mg/1 Ml Inj IV 5 mg Q6H PRN Administration Agitation Heparin Sodium (Porcine) 5,000 unit 08/17/21 06:00 08/23/21 05:54 Heparin 5,000 Unit/1 Ml Vial SUB-Q 5,000 unit Q8HR HAM Administration Heparin Sodium (Porcine) 3,000 unit 08/17/21 07:41 Heparin 10,000 Units/10 Ml Vial IV KATI PRN hemodialysis Hydralazine HCl 100 mg 08/17/21 09:00 08/23/21 08:29 Hydralazine 100 Mg Tab PO 100 mg TID HAM Administration Hydralazine HCl 10 mg 08/17/21 07:56 08/23/21 08:17 Hydralazine 20 Mg/1 Ml Inj IV 10 mg Q4HR PRN Administration Hypertension Hydromorphone HCl 0.25 mg 08/17/21 07:50 08/23/21 08:30 Hydromorphone 0.5 Mg/0.5 Ml Inj IV 0.25 mg Q4H PRN Administration Pain, Moderate (4-6) Sodium Chloride 100 mls @ 999 mls/hr 08/18/21 10:08 Nacl 0.9% IV KATI PRN Hypotension Insulin Glargine 25 units 08/21/21 10:19 08/22/21 21:24 Insulin Glargine 100 Units/Ml SUB-Q 25 units QHS HAM Administration Insulin Human Lispro 0 unit 08/18/21 00:00 08/23/21 06:02 Insulin Lispro 100 Unit/Ml SUB-Q 3 unit Q6HR HAM Administration Protocol Levetiracetam 500 mg 08/20/21 10:00 08/23/21 10:47 Levetiracetam 500 Mg Tab PO 500 mg DAILY HAM Administration Levothyroxine Sodium 125 mcg 08/22/21 06:00 08/23/21 05:54 Levothyroxine 125 Mcg Tab PO 125 mcg QAM@0600 HAM Administration Losartan Potassium 50 mg 08/17/21 10:00 08/22/21 10:29 Losartan 50 Mg Tab PO 50 mg QDAY HAM Administration Magnesium Hydroxide 30 ml 08/17/21 04:09 Magnesium Hydroxide (Mom) Oral Liqd Udc PO Q4H PRN Constipation Metoprolol Tartrate 100 mg 08/20/21 11:00 08/22/21 21:26 Metoprolol Tartrate 100 Mg Tab PO 100 mg BID HAM Administration Ondansetron HCl 4 mg 08/17/21 04:09 Ondansetron 4 Mg/2 Ml Inj IV Q8H PRN Nausea And Vomiting Sodium Chloride 10 ml 08/17/21 10:00 08/22/21 21:26 Sodium Chloride 0.9% 10 Ml Flush Syringe IV 10 ml BID HAM Administration Sodium Chloride 10 ml 08/17/21 04:09 08/19/21 02:59 Sodium Chloride 0.9% 10 Ml Flush Syringe IV 10 ml PRN PRN Administration LINE FLUSH
[2021-08-23] MEDS: ALTEPLASE 2 MG INJ ONE ×3 (13:26→13:47)
[2021-08-23] MEDS: fentaNYL 100 MCG/2 ML INJ ONE ×2 (13:57→14:35)
[2021-08-23] MEDS: MIDAZOLAM 2 MG/2 ML INJ ONE ×2 (13:57→14:35)
--- NOTE | 2021-08-23 15:18 | Operative Report ---
Operative Report Operative Report: 1. Ultrasound guided access of the AV loop graft towards the arterial anastomosis. 2. Selection of the axillary artery with angiography of the right upper extremity 3. Ultrasound guided access of the AV loop graft towards the venous anastomosis. 4. Angioplasty of the right subclavian vein with a 12 mm x 60 mm angioplasty balloon 5. Angioplasty of the right arm AV loop graft and axillary vein with an 8 mm x 80 mm and 8 mm x 40 mm angioplasty balloon 6. Infusion of 4 mg of tPA in the right AV loop graft 7. Supervisor Gluing mechanical thrombectomy of the AV loop graft 8. Viky thrombectomy from the venous sheath to the central veins 9. Viky thrombectomy from the axillary artery to the arterial sheath 10. Angioplasty of the arterial anastomosis with a 6 mm x 40 mm angioplasty balloon 11. Angioplasty of the venous anastomosis with a 8 mm x 80 mm angioplasty balloon 12. Angioplasty of the subclavian vein and right innominate vein with a 12 mm x 60 mm angioplasty balloon INDICATION: THROMBOSED RIGHT ARM AV LOOP GRAFT WITH END-STAGE RENAL DISEASE. DATE: 08/23/2021 MEDICATIONS: Please refer to nursing documentation for complete list of medications and heparin administration. VERSED AND FENTANYL TITRATED TO MODERATE SEDATION. THE PATIENT WAS MONITORED UNDER CONTINUOUS CARDIOPULMONARY MONITORING THROUGHOUT THE CASE. COMPLICATIONS: NONE IMMEDIATE CONSERVATION SCIENCE TEACHER: ROEL CARY MD PROCEDURE: The procedure was discussed with the patient and the risks, benefits, and alternatives were discussed with the patient. Informed consent was obtained. The patient was transported into the angiography suite in stable condition and placed on the angiographic table. The right arm was assessed under real-time ultrasound which demonstrated a thrombosed right arm AV loop graft. The patient was prepped and draped in a sterile fashion. Lidocaine was used to anesthetize the skin. Under ultrasound guidance, the AV graft was punctured with the needle from the lower portion of the loop pointing towards the higher loop. 0.018 inch wire was advanced through the needle and this was exchanged for a transitional dilator. The inner dilator and wire were removed and a 0.035 inch [place] wire was advanced through the transitional dilator. The dilator was exchanged for a 7 [place] short sheath. Angled catheter was advanced over the wire and was used to select the axillary artery. Digital subtraction angiography was performed demonstrating patency of the axillary artery proximal and distal to the anastomosis with a high takeoff of the presumed radial artery which was patent. The AV graft was thrombosed. At this point, lidocaine was again used to anesthetize the skin. Under ultrasound guidance, the AV graft was punctured with the needle from the higher portion of the loop pointing towards the lower loop. 0.018 inch wire was advanced through the needle and this was exchanged for a transitional dilator. The inner dilator and wire were removed and a 0.035 inch [place] wire was advanced through the transitional dilator. The dilator was exchanged for a 7 [place] short sheath. Angled catheter was advanced over the wire and was used to select the distal AV graft and then wiring catheter used to select the subclavian vein and innominate vein. Digital subtraction venography was performed in the right brachiocephalic vein which demonstrated an eccentric thrombus in the peripheral subclavian vein and a 40 to 50% narrowing of the right innominate vein. 12 mm x 40 mm angioplasty balloon was used to perform angioplasty of the right subclavian vein. Afterwards, 4 mg of TPA were infused through the length of the AV graft clot to the venous sheath as the arterial anastomosis was manually compressed. 8 mm x 80 mm angioplasty balloon was used to perform angioplasty throughout the AV graft. There was residual stenosis of the venous anastomosis which was treated with a 8 mm x 40 mm conquest balloon. Supervisor Gluing thrombectomy device was used multiple times through the venous limb. Supervisor Gluing device was then removed. Angled catheter and [place] wire were negotiated into the inferior vena cava. Viky balloon was used to sweep from the sheath to the central veins. From the arterial sheath, the angled catheter was advanced over the 0.035 wire and the wire was advanced into the right axillary artery in a retrograde fashion. Digital subtraction angiography was performed which demonstrated scattered thrombus in the AV graft which improvement of thrombus since the prior angiogram. Viky catheter was inflated and use to sweep the anastomosis multiple times, pulling the plug towards the venous limb. Afterwards, Viky was inflated in the venous sheath and used to push any residual thrombus into the central veins. Blood was aspirated from both sheaths. Viky catheter was exchanged for the angled catheter and digital subtraction angiography was performed. This demonstrated 50% narrowing of the arterial anastomosis and 40 % narrowing of the venous anastomosis.. Fistulogram was performed through sheath pointed towards the venous anastomosis. This demonstrated the eccentric thrombus in the peripheral subclavian vein and 40 to 50% narrowing of the right innominate vein. 6 mm x 40 mm angioplasty balloon was used to perform angioplasty of the arterial anastomosis. 8 mm x 80 mm angioplasty balloon was used to perform angioplasty of the venous anastomosis. 12 mm x 40 mm angioplasty balloon was used to perform angioplasty of the right innominate vein and right subclavian vein. Digital subtraction angiography was performed demonstrating less than 10% residual narrowing of the arterial anastomosis, less than 20% residual narrowing of the venous anastomosis, and no residual narrowing of the right innominate vein. There is still a peripheral eccentric likely chronic thrombus in the subclavian vein. All the wires were removed. 3-0 Vicryl sutures were used to close the fistula access sites. Dermabond was applied. Pressure was held until hemostasis was achieved. The patient was then transferred to the outpatient recovery area. FINDINGS: Please see the procedure note for the findings. IMPRESSION: 1. Successful pharmacomechanical thrombectomy of the thrombosed right AV loop graft. 2. Successful peripheral dialysis access and central dialysis access. Given the peripheral subclavian vein thrombus which I suspect is subacute or chronic, and the recent thrombosis of the AV graft, discussed with hospitalist and recommend starting low-dose Eliquis to attempt to prevent further thrombosis.
--- NOTE | 2021-08-23 15:28 | Event Note ---
Date: 08/23/21 Performed thrombectomy of right arm AV loop graft. If successfully use of dialysis graft, then can remove Vas-Cath.
--- NOTE | 2021-08-23 15:33 | Event Note ---
Date: 08/23/21 Right upper extremity AV fistula malformation; thrombosed right AV loop graft --THROMBOSED RIGHT ARM AV LOOP GRAFT WITH END-STAGE RENAL DISEASE. Vascular/IR evaluated the patient and patient had vascular procedure s/p vascular surgery/ thrombectomy of right arm AV loop graft. If successfully use of dialysis graft, then can remove Vas-Cath.
--- NOTE | 2021-08-23 16:16 | Progress Note ---
Assessment and Plan Possible Sepsis- high grade fevers, tachycardia, acute encephalopathy, tachypnea DKA (Diabetic Ketoacidosis) Acute Metabolic Encephalopathy h/o CVA (cerebral infarction) with left-sided deficits End Stage renal Disease(ESRD) on HD HTN (Hypertension) h/o Hypothyroidism s/p thrombectomy. Monitor pulmonary status closely- she has abdominal paradoxical breathing. SpO2 is within normal, the CXR is normal. -Continue to Titrate supplemental oxygen to keep SpO2 89-92% -Continue with aspiration precaution -Continue enteric nutritional support via NGT -Supportive HD per Renal -Continue to monitor hemodynamics closely -Monitor blood glucose, avoid hypoglycemia -VTE prophylaxis- heparin -Continue all supportive care, seizure precautions -Maintain sleep-wake cycle -Mobility per facility protocol, off loading and frequent turning to prevent pressure ulcers All other care per primary service and other consulting physicians Discharge planning per primary service CONDITION:FAIR PROGNOSIS: GUARDED CODE STATUS: FULL CODE Subjective Date of service: 08/23/21 Principal diagnosis: encephalopathy Interval history: Follow up: DKA; acute encephaloapthy Seen and examined. Vitals, labs, medications, chart reviewed. Discussed with RN- no acute overnight events. NGT in place for feeding- tolerating tube feeding Mental status improving She intermittently has paradoxical abdominal breathing Objective Vital Signs - 12hr 08/23/21 08/23/21 08/23/21 07:59 08:17 10:47 Temperature 99.0 F Pulse Rate 87 82 Respiratory 20 Rate Blood Pressure 199/106 194/96 175/91 Blood Pressure [Right] O2 Sat by Pulse 91 Oximetry 08/23/21 08/23/21 08/23/21 11:36 12:00 12:30 Temperature Pulse Rate 75 68 Respiratory 18 Rate Blood Pressure Blood Pressure 169/81 180/70 140/70 [Right] O2 Sat by Pulse 100 100 Oximetry 08/23/21 08/23/21 08/23/21 15:05 15:25 15:45 Temperature 98 F Pulse Rate 68 72 69 Respiratory 16 16 16 Rate Blood Pressure 195/85 192/78 179/83 Blood Pressure [Right] O2 Sat by Pulse 100 100 98 Oximetry Constitutional: alert, appears uncomfortable, other (minimally responsive, on supplemetnal oxygen) Eyes: non-icteric ENT: oropharynx dry Neck: supple, no lymphadenopathy Effort: mildly labored Ascultation: Bilateral: clear, diminished breath sounds Cardiovascular: regular rate and rhythm, other (S1,S2) Gastrointestinal: normoactive bowel sounds, soft, non-tender, other (obese) Integumentary: normal Extremities: no cyanosis, no edema Neurologic: pupils equal and round Psychiatric: mood appropriate, affect normal CBC and BMP: 08/24/21 04:23 08/24/21 04:23 ABG, PT/INR, D-dimer: PT/INR, D-dimer PT 13.7 Sec. (12.2-14.9) 08/17/21 02:07 INR 0.95 (0.87-1.13) 08/17/21 02:07 D-Dimer 2695.37 ng/mlDDU (0-234) H 08/17/21 14:40 Abnormal lab findings: Abnormal Labs 08/17/21 08/17/21 08/17/21 00:33 00:33 02:07 MCH RDW 19.7 H Lymph % (Auto) 10.5 L [place] % (Auto) Lymph # (Auto) 1.1 L Seg Neutrophils % 79.1 H Seg Neutrophils # 8.6 H D-Dimer Sodium 132 L 134 L Chloride 87.8 L 88.4 L Carbon Dioxide 21 L BUN 61 H 61 H Creatinine 10.1 H 10.3 H Glucose 594 H* 533 H* POC Glucose Hemoglobin A1c Calcium Phosphorus ALT < 5 L Alkaline Phosphatase 182 H NT-Pro-B Natriuret Pep 53282 H HDL Cholesterol TSH Salicylates Acetaminophen 08/17/21 08/17/21 08/17/21 02:07 02:07 02:07 MCH RDW Lymph % (Auto) [place] % (Auto) Lymph # (Auto) Seg Neutrophils % Seg Neutrophils # D-Dimer Sodium Chloride Carbon Dioxide BUN Creatinine Glucose POC Glucose Hemoglobin A1c Calcium Phosphorus ALT Alkaline Phosphatase NT-Pro-B Natriuret Pep HDL Cholesterol TSH 5.080 H Salicylates < 0.3 L Acetaminophen 5.0 L 08/17/21 08/17/21 08/17/21 04:20 04:20 05:09 MCH RDW Lymph % (Auto) [place] % (Auto) Lymph # (Auto) Seg Neutrophils % Seg Neutrophils # D-Dimer Sodium 136 L Chloride 90.9 L Carbon Dioxide BUN 61 H Creatinine 10.4 H Glucose 351 H POC Glucose 298 H Hemoglobin A1c Calcium Phosphorus 6.20 H ALT Alkaline Phosphatase NT-Pro-B Natriuret Pep HDL Cholesterol TSH Salicylates Acetaminophen 08/17/21 08/17/21 08/17/21 09:58 10:53 13:14 MCH RDW Lymph % (Auto) [place] % (Auto) Lymph # (Auto) Seg Neutrophils % Seg Neutrophils # D-Dimer Sodium Chloride Carbon Dioxide BUN Creatinine Glucose POC Glucose 139 H 162 H 145 H Hemoglobin A1c Calcium Phosphorus ALT Alkaline Phosphatase NT-Pro-B Natriuret Pep HDL Cholesterol TSH Salicylates Acetaminophen 08/17/21 08/17/21 08/17/21 14:40 14:40 14:40 MCH RDW Lymph % (Auto) [place] % (Auto) Lymph # (Auto) Seg Neutrophils % Seg Neutrophils # D-Dimer 2695.37 H Sodium Chloride 96.7 L Carbon Dioxide BUN 63 H Creatinine 10.7 H Glucose 145 H POC Glucose Hemoglobin A1c Calcium Phosphorus ALT Alkaline Phosphatase NT-Pro-B Natriuret Pep HDL Cholesterol 30 L TSH Salicylates Acetaminophen 08/17/21 08/17/21 08/17/21 14:40 16:45 17:47 MCH RDW Lymph % (Auto) [place] % (Auto) Lymph # (Auto) Seg Neutrophils % Seg Neutrophils # D-Dimer Sodium Chloride 96.2 L Carbon Dioxide BUN 44 H Creatinine 7.2 H Glucose 167 H POC Glucose 136 H 165 H Hemoglobin A1c Calcium Phosphorus ALT Alkaline Phosphatase NT-Pro-B Natriuret Pep HDL Cholesterol TSH Salicylates Acetaminophen 08/17/21 08/17/21 08/17/21 18:01 21:01 22:40 MCH RDW Lymph % (Auto) [place] % (Auto) Lymph # (Auto) Seg Neutrophils % Seg Neutrophils # D-Dimer Sodium Chloride 97.1 L 96.4 L Carbon Dioxide BUN 39 H 40 H Creatinine 8.0 H 8.5 H Glucose 122 H 109 H POC Glucose 172 H Hemoglobin A1c Calcium Phosphorus ALT Alkaline Phosphatase NT-Pro-B Natriuret Pep HDL Cholesterol TSH Salicylates Acetaminophen 08/17/21 08/18/21 08/18/21 22:40 02:13 04:56 MCH 27 L RDW 19.7 H Lymph % (Auto) [place] % (Auto) Lymph # (Auto) Seg Neutrophils % Seg Neutrophils # D-Dimer Sodium Chloride 96.8 L Carbon Dioxide BUN 44 H Creatinine 9.3 H Glucose 170 H POC Glucose 190 H Hemoglobin A1c Calcium Phosphorus 6.70 H ALT Alkaline Phosphatase NT-Pro-B Natriuret Pep HDL Cholesterol TSH Salicylates Acetaminophen 08/18/21 08/18/21 08/18/21 04:56 04:56 17:01 MCH 27 L RDW 19.7 H Lymph % (Auto) [place] % (Auto) 9.7 H Lymph # (Auto) Seg Neutrophils % Seg Neutrophils # D-Dimer Sodium Chloride Carbon Dioxide BUN Creatinine Glucose POC Glucose 228 H Hemoglobin A1c 10.2 H Calcium Phosphorus ALT Alkaline Phosphatase NT-Pro-B Natriuret Pep HDL Cholesterol TSH Salicylates Acetaminophen 08/18/21 08/19/21 08/19/21 23:58 04:37 04:37 MCH 27 L RDW 19.5 H Lymph % (Auto) [place] % (Auto) Lymph # (Auto) Seg Neutrophils % Seg Neutrophils # D-Dimer Sodium Chloride 96.7 L Carbon Dioxide 21 L BUN 57 H Creatinine 10.2 H Glucose 151 H POC Glucose 192 H Hemoglobin A1c Calcium Phosphorus ALT Alkaline Phosphatase NT-Pro-B Natriuret Pep HDL Cholesterol TSH Salicylates Acetaminophen 08/19/21 08/19/21 08/20/21 17:46 22:59 04:24 MCH RDW Lymph % (Auto) [place] % (Auto) Lymph # (Auto) Seg Neutrophils % Seg Neutrophils # D-Dimer Sodium 133 L Chloride 87.9 L Carbon Dioxide 15 L BUN 33 H Creatinine 7.3 H Glucose 365 H POC Glucose 217 H 282 H Hemoglobin A1c Calcium Phosphorus 6.50 H ALT Alkaline Phosphatase NT-Pro-B Natriuret Pep HDL Cholesterol TSH Salicylates Acetaminophen 08/20/21 08/20/21 08/20/21 06:07 07:51 15:37 MCH RDW Lymph % (Auto) [place] % (Auto) Lymph # (Auto) Seg Neutrophils % Seg Neutrophils # D-Dimer Sodium Chloride Carbon Dioxide BUN Creatinine Glucose POC Glucose 398 H 308 H 247 H Hemoglobin A1c Calcium Phosphorus ALT Alkaline Phosphatase NT-Pro-B Natriuret Pep HDL Cholesterol TSH Salicylates Acetaminophen 08/20/21 08/21/21 08/21/21 23:22 04:45 05:07 MCH RDW Lymph % (Auto) [place] % (Auto) Lymph # (Auto) Seg Neutrophils % Seg Neutrophils # D-Dimer Sodium 134 L Chloride 92.9 L Carbon Dioxide BUN 48 H Creatinine 8.0 H Glucose 389 H POC Glucose 316 H 407 H Hemoglobin A1c Calcium 10.6 H Phosphorus ALT Alkaline Phosphatase NT-Pro-B Natriuret Pep HDL Cholesterol TSH Salicylates Acetaminophen 08/21/21 08/21/21 08/21/21 11:37 15:52 23:44 MCH RDW Lymph % (Auto) [place] % (Auto) Lymph # (Auto) Seg Neutrophils % Seg Neutrophils # D-Dimer Sodium Chloride Carbon Dioxide BUN Creatinine Glucose POC Glucose 244 H 325 H 221 H Hemoglobin A1c Calcium Phosphorus ALT Alkaline Phosphatase NT-Pro-B Natriuret Pep HDL Cholesterol TSH Salicylates Acetaminophen 08/22/21 08/22/21 08/23/21 06:06 12:27 00:37 MCH RDW Lymph % (Auto) [place] % (Auto) Lymph # (Auto) Seg Neutrophils % Seg Neutrophils # D-Dimer Sodium Chloride Carbon Dioxide BUN Creatinine Glucose POC Glucose 224 H 247 H 341 H Hemoglobin A1c Calcium Phosphorus ALT Alkaline Phosphatase NT-Pro-B Natriuret Pep HDL Cholesterol TSH Salicylates Acetaminophen 08/23/21 08/23/21 08/23/21 04:20 05:37 11:56 MCH RDW Lymph % (Auto) [place] % (Auto) Lymph # (Auto) Seg Neutrophils % Seg Neutrophils # D-Dimer Sodium Chloride 94.4 L Carbon Dioxide BUN 49 H Creatinine 7.7 H Glucose 201 H POC Glucose 210 H 162 H Hemoglobin A1c Calcium 10.9 H Phosphorus ALT Alkaline Phosphatase NT-Pro-B Natriuret Pep HDL Cholesterol TSH Salicylates Acetaminophen Chest x-ray: image reviewed (No acute infiltrates) Allied health notes reviewed: nursing
--- NOTE | 2021-08-23 16:29 | Progress Note ---
Assessment and Plan Cultures: Blood cultures no growth so far A/P: 41-year-old female past medical history CVA, ESRD on HD, diabetes now with: #SIRS versus sepsis: With fevers, tachycardia, tachypnea. Unclear source at present. #DKA: Currently on ICU with insulin drip. #Acute encephalopathy: Possibly secondary to DKA. #ESRD on HD: Renally dose medications Recs: -Stopped antibiotics. Cultures remain negative Thank you for the consult, we will sign off. Please call questions. Cole Tamayo MD [facility] ([facility]) O: [phone] F: [phone] Subjective Date of service: 08/23/21 Principal diagnosis: encephalopathy Interval history: Afebrile, normal white count. Cultures been negative. Pending second thrombectomy Objective - Exam Narrative Exam: Physical Exam: Constitutional: Awake, confused Head, Ears, Nose: Normocephalic, atraumatic. External ears, nose normal Eyes: Conjunctivae/corneas clear. No icterus. No ptosis. Neck: Supple, no meningeal signs Oral: dentition fair, no thrush Cardiovascular: S1, S2 normal. Respiratory: Good air entry, clear to auscultation bilaterally GI: Soft, non-tender; bowel sounds normal. No peritoneal signs. Musculoskeletal: No pedal edema, no cyanosis. Skin: No rash or abscess Hem/Lymphatic: No palpable cervical or supraclavicular nodes. No lymphangitis Psych: Confused Neurological: Confused awake - Constitutional Vitals: Vital Signs Temp Pulse Resp BP Pulse Ox 98 F 66 16 167/92 100 08/23/21 15:05 08/23/21 16:15 08/23/21 16:15 08/23/21 16:15 08/23/21 16:15 Temperature -Last 24 Hours Temperature 98 F Temperature 99.0 F Temperature 99.3 F Temperature 99.3 F Temperature 99.5 F Temperature 98.2 F - Labs CBC & Chem 7: 08/19/21 04:37 08/23/21 04:20 Labs: Abnormal lab results 08/23/21 08/23/21 08/23/21 Range/Units 00:37 04:20 05:37 Chloride 94.4 L (98-107) mmol/L BUN 49 H (7-17) mg/dL Creatinine 7.7 H (0.6-1.2) mg/dL Glucose 201 H (65-100) mg/dL POC Glucose 341 H 210 H (70-105) mg/dL Calcium 10.9 H (8.4-10.2) mg/dL 08/23/21 Range/Units 11:56 Chloride (98-107) mmol/L BUN (7-17) mg/dL Creatinine (0.6-1.2) mg/dL Glucose (65-100) mg/dL POC Glucose 162 H (70-105) mg/dL Calcium (8.4-10.2) mg/dL
[2021-08-23] MEDS: ASPIRIN 325 MG TAB FEEDTUBE SCH (17:07)
[2021-08-23] MEDS: DULoxetine 30 MG CAP PO SCH (17:08)
[2021-08-23] MEDS: amLODIPine 10 MG TAB PO SCH (17:11)
[2021-08-23] MEDS: FAMOTIDINE 20 MG TAB FEEDTUBE SCH (17:12)
[2021-08-23] MEDS: INSULIN GLARGINE 100 UNITS/ML SUB-Q SCH (21:34)
[2021-08-23] MEDS ORDERED: APIXABAN 2.5 MG TAB PO SCH (22:00)
[2021-08-23 23:23] LABS: Hematocrit 38.7 % (30.3-42.9); Hemoglobin 11.9 gm/dl (10.1-14.3); Mean Corpuscular HGB Conc 31 % (30-34); Mean Corpuscular Volume 86 fl (79-97); Platelet Count 207 K/mm3 (140-440); Red Blood Count 4.51 M/mm3 (3.65-5.03)
[2021-08-23 23:29] LABS: Red Cell Distribution Width 20.3 % (13.2-15.2)
[2021-08-23 23:34] LABS: INR 0.97 (0.87-1.13)
[2021-08-23 23:35] LABS: Partial Thromboplastin Time 27.9 Sec. (24.2-36.6)
[2021-08-23] MEDS: MAGNESIUM HYDROXIDE (MOM) ORAL LIQD UDC PO PRN (23:56)
[2021-08-24 04:45] LABS: Basophils # (Auto) 0.2 K/mm3 (0.0-0.1); Basophils % (Auto) 1.5 % (0.0-1.8); Eosinophils # (Auto) 0.2 K/mm3 (0.0-0.4); Eosinophils % (Auto) 1.3 % (0.0-4.3); Hematocrit 38.3 % (30.3-42.9); Lymphocytes # (Auto) 3.2 K/mm3 (1.2-5.4); Lymphocytes % (Auto) 20.5 % (13.4-35.0); Mean Corpuscular HGB Conc 31 % (30-34); Mean Corpuscular Volume 85 fl (79-97); Red Cell Distribution Width 19.8 % (13.2-15.2)
[2021-08-24 04:50] LABS: Platelet Count 150 K/mm3 (140-440)
[2021-08-24 05:08] LABS: Albumin 3.7 g/dL (3.9-5); Calcium 10.7 mg/dL (8.4-10.2)
[2021-08-24] MEDS: HEPARIN 5,000 UNIT/1 ML VIAL SUB-Q SCH ×3 (06:31→21:20)
[2021-08-24] MEDS: HYDROmorphone 0.5 MG/0.5 ML INJ IV PRN ×3 (06:31→21:21)
[2021-08-24] MEDS: INSULIN LISPRO 100 UNIT/ML SUB-Q SCH ×3 (06:34→18:40)
[2021-08-24] MEDS: LEVOTHYROXINE 125 MCG TAB PO SCH ×2 (06:55→12:00)
--- NOTE | 2021-08-24 09:01 | Progress Note ---
Assessment and Plan Assessment and plan: 08/17: Patient seen and examined at the bedside. Patient remains and obtunded, only arousable with stimuli. CT head noted with no acute abnormality. Neurology consulted. On 2L NC and able to protect her airway. Patient remains on insulin gtt per DKA protocol, BG is improving and anion gap most likely due to ESRD. Plan for HD today per Nephro, possible transition to subQ insulin post HD treatment. Patient is also febrile this am, VSS. Orders placed for blood cultures, empiric IV abx was initiated and ID was consulted. 08/18: Stable on RA this am. Awake and tracking, but not following commands. MRI brain pending, Neurology is also following. Transitioned to subQ insulin overnight, patient remains NPO due to mental status. PT/OT/Speech ordered. Patient RUE fistula clotted, Temp. Vascath inserted for HD. Vascular Surgery consulted for AVF eval and treat. BLE doppler noted. Per patient mother patient has not been on coumadin for a couple years, she was only on ASA. Patient might benefit from PO AC at discharge. Continue VTE proph, Heparin subq for now. 08/19: With left-side neglect. Awake and following commands on the right side only, but patient remains nonverbal. MRI brain and Neurology recs noted. C/f seizure now on Keppra per Neuro, EEG pending. Patient remains NPO, failed speech swallow due to mental status. Will insert DHT and initiate enteral nutrition. Continue PRN antihypertensives for now and resume PO antihypertensive therapy once DHT is placed. PRN Haldol added for agitation. D/w CCM patient is stable for transfer to Telemetry. 08/20: EEG today is with slowing 4-5 hz and triphasic waves mostly related to ESRD. Patient initiated on Keppra since yesterday. Pending 2D echocardiogram report. Patient appears to be more oriented and alert today. Continue to follow clinically, PT eval. BP noted to be elevated, initiated on home dose of clonidine and Norvasc. Continue to follow. 08/21: Blood glucose this morning above 400, increase Lantus dose, clinically remains unchanged, continue AED and follow clinically. Wait for PT recommendation. 08/22: Patient appears more tachypneic today with diminished breath sound bilaterally, will get a stat chest x-ray. Discontinued antibiotic today we will monitor off antibiotics. Continue to adjust BP medications follow clinically. 08/24/2021;s/p thrombectomy of right arm AV loop graft Assessment and plan; #RUE AV fistula Clotted; Vascular evaluated the patient, possible vascular procedure today --THROMBOSED RIGHT ARM AV LOOP GRAFT WITH END-STAGE RENAL DISEASE. Vascular/IR evaluated the patient and patient had vascular procedure s/p vascular surgery/ thrombectomy of right arm AV loop graft. If successfully use of dialysis graft, then can remove Vas-Cath. #DKA (Diabetic Ketoacidosis) - Presented with elevated BG and anion gap metabolic acidosis - S/p DKA protocol - Hgb A1C 10.2 - Transitioned to SubQ insulin overnight - Continue SSI and BG Q6hrs since NPO - Lantus Qhs - Monitor and replace electrolytes as needed - Avoid Hypoglycemia #Possible Sepsis - High fevers this am, VSS, WBCs wnr - HD patient with AV-fistula, and h/o fpc permacath which was removed a week ago - Blood cultures with NGTD - ID on consult, appreciated recommendations - Continue current IV abx per ID - Continue to F/U on B.cultures - Daily CBC monitor #End Stage renal Disease(ESRD) on HD - Nephrology on consult, appreciated recommendation - RUE AV-Fistula clotted, Temporary Vascath inserted - Continue HD per Nephro - Strict intake and output, patient is anuric - Avoid nephrotoxic medications; Renally dose medications - Monitor and replace electrolytes as needed - Vascular Surgery consulted for AVF eval and treat #Acute Metabolic Encephalopathy #H/o CVA (cerebral infarction) with left-sided deficits - Multifactorial, DKA vs azotemia vs infectious process - Awake and tracking, not following commands - CT head noted with mo acute abnormality - S/p DKA protocol, HD per Nephro, and on IV abx - MRI brain noted - Neurology consulted, appreciated recommendations - c/f seizure, Keppra initiated per Neuro - PRN Haldolo for agitation - Fall and safety precaution - Aspiration precaution - Frequent reorientation - Avoid benzodiazepine to reduce the possibility of delirium - Maintenance of sleep-wake cycle - PT/OT/Speech ordered #HTN (Hypertension) - Hypertensive this am, patient unable to take PO meds due to alerted mentation - PO antihypertensives held - PRN Hydralazine and Labetalol for SBP greater than 160 - Continue blood pressure monitor per protocol #Elevated D-Dimer #H/o DVT - BLE doppler showed no evidence for acute DVT in either lower extremity. 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 - Per patient's mother, patient has been off coumadin for a couple of years - Continue Heparin SubQ - Patient might benefit from PO AC at discharge, awaiting Vascular surgery recommendations #Hypothyroidism - Resume home synthroid #Dysphagia - Patient failed speech eval due to mental status - Plan to insert DHT and initiate enteral nutrition - Nutrition Consulted for TF management #GI/ DVT Prophylaxis - PPI- Pepcid - Heparin SubQ - SCDs to bilateral lower extremities while in bed #Advance care planning - Disease education data, care plan, diagnoses, and prognosis were discussed with patient's mother-Angely Roman # . Patient is full code. Patient family knowledges understanding and agreement with care plan. Closely monitor the patient and adjust management as needed Plan of care reviewed with the patient and her nurse History Interval history: I have seen and examined the patient at the bedside Patient's chart and medications reviewed No new events reported by the nursing Vital signs noted Patient received hemodialysis today Hospitalist Physical - Constitutional Vitals: Temp Pulse Resp BP Pulse Ox 98.2 F 80 20 188/87 97 08/24/21 07:00 08/24/21 07:00 08/24/21 07:00 08/24/21 07:00 08/24/21 07:00 General appearance: Present: no acute distress, well-nourished, other (Does not respond, nonverbal, randomly moves) - EENT Eyes: Present: PERRL, EOM intact - Neck Neck: Present: supple, normal ROM - Respiratory Respiratory effort: normal Respiratory: bilateral: diminished, negative: rales, rhonchi, wheezing - Cardiovascular Rhythm: regular Heart Sounds: Present: S1 & S2 - Extremities Extremities: no ischemia, No edema - Abdominal General gastrointestinal: soft, non-tender, non-distended, normal bowel sounds - Integumentary Integumentary: Present: clear, warm - Psychiatric Psychiatric: appropriate mood/affect, cooperative - Neurologic Neurologic: CNII-XII intact, moves all extremities Results - Labs CBC & Chem 7: 08/24/21 04:23 08/24/21 04:23 Labs: Laboratory Last Values WBC 15.4 K/mm3 (4.5-11.0) H 08/24/21 04:23 RBC 4.50 M/mm3 (3.65-5.03) 08/24/21 04:23 Hgb 12.0 gm/dl (10.1-14.3) 08/24/21 04:23 Hct 38.3 % (30.3-42.9) 08/24/21 04:23 MCV 85 fl (79-97) 08/24/21 04:23 MCH 27 pg (28-32) L 08/24/21 04:23 MCHC 31 % (30-34) 08/24/21 04:23 RDW 19.8 % (13.2-15.2) H 08/24/21 04:23 Plt Count 150 K/mm3 (140-440) 08/24/21 04:23 Lymph % (Auto) 20.5 % (13.4-35.0) 08/24/21 04:23 [place] % (Auto) 13.0 % (0.0-7.3) H 08/24/21 04:23 Eos % (Auto) 1.3 % (0.0-4.3) 08/24/21 04:23 Baso % (Auto) 1.5 % (0.0-1.8) 08/24/21 04:23 Lymph # (Auto) 3.2 K/mm3 (1.2-5.4) 08/24/21 04:23 [place] # (Auto) 2.0 K/mm3 (0.0-0.8) H 08/24/21 04:23 Eos # (Auto) 0.2 K/mm3 (0.0-0.4) 08/24/21 04:23 Baso # (Auto) 0.2 K/mm3 (0.0-0.1) H 08/24/21 04:23 Seg Neutrophils % 63.7 % (40.0-70.0) 08/24/21 04:23 Seg Neutrophils # 9.8 K/mm3 (1.8-7.7) H 08/24/21 04:23 PT 14.0 Sec. (12.2-14.9) 08/23/21 22:59 INR 0.97 (0.87-1.13) 08/23/21 22:59 APTT 27.9 Sec. (24.2-36.6) 08/23/21 22:59 D-Dimer 2695.37 ng/mlDDU (0-234) H 08/17/21 14:40 Sodium 136 mmol/L (137-145) L 08/24/21 04:23 Potassium 4.3 mmol/L (3.6-5.0) 08/24/21 04:23 Chloride 93.0 mmol/L (98-107) L 08/24/21 04:23 Carbon Dioxide 25 mmol/L (22-30) 08/24/21 04:23 Anion Gap 22 mmol/L 08/24/21 04:23 BUN 73 mg/dL (7-17) H 08/24/21 04:23 Creatinine 9.2 mg/dL (0.6-1.2) H 08/24/21 04:23 Estimated GFR 6 ml/min 08/24/21 04:23 BUN/Creatinine Ratio 8 % 08/24/21 04:23 Glucose 145 mg/dL (65-100) H 08/24/21 04:23 POC Glucose 155 mg/dL (70-105) H 08/24/21 05:09 Hemoglobin A1c 10.2 % (4-6) H 08/18/21 04:56 Lactic Acid 1.70 mmol/L (0.7-2.0) 08/17/21 02:07 Calcium 10.7 mg/dL (8.4-10.2) H 08/24/21 04:23 Phosphorus 6.30 mg/dL (2.5-4.5) H 08/24/21 04:23 Magnesium 2.70 mg/dL (1.7-2.3) H 08/24/21 04:23 Total Bilirubin 0.30 mg/dL (0.1-1.2) 08/24/21 04:23 AST 26 units/L (5-40) 08/24/21 04:23 ALT 6 units/L (7-56) L 08/24/21 04:23 Alkaline Phosphatase 157 units/L (35-129) H 08/24/21 04:23 NT-Pro-B Natriuret Pep 51472 pg/mL (0-450) H 08/17/21 02:07 Total Protein 7.6 g/dL (6.3-8.2) 08/24/21 04:23 Albumin 3.7 g/dL (3.9-5) L 08/24/21 04:23 Albumin/Globulin Ratio 0.9 % 08/24/21 04:23 Triglycerides 128 mg/dL (2-149) 08/17/21 14:40 Cholesterol 128 mg/dL (50-199) 08/17/21 14:40 LDL Cholesterol Direct 69 mg/dL (50-130) 08/17/21 14:40 HDL Cholesterol 30 mg/dL (40-59) L 08/17/21 14:40 Cholesterol/HDL Ratio 4.26 % 08/17/21 14:40 TSH 5.080 mlU/mL (0.270-4.200) H 08/17/21 02:07 Salicylates < 0.3 mg/dL (2.8-20.0) L 08/17/21 02:07 Acetaminophen 5.0 ug/mL (10.0-30.0) L 08/17/21 02:07 Plasma/Serum Alcohol < 0.01 % (0-0.07) 08/17/21 02:07 SARS-CoV-2 (PCR) Negative (Negative) 08/17/21 09:12 Hepatitis A IgM Ab Non-reactive (NonReactive) 08/17/21 14:40 Hep Bs Antigen Non-reactive (Negative) 08/17/21 14:40 Hep B Core IgM Ab Non-reactive (NonReactive) 08/17/21 14:40 Hepatitis C Antibody Non-reactive (NonReactive) 08/17/21 14:40 Blood Type O POSITIVE 08/17/21 17:43 Antibody Screen Negative 08/17/21 17:43 Tomas/IV: Voiding Method Incontinent Active Medications - Current Medications Current Medications: Generic Name Dose Route Start Last Admin Trade Name Freq PRN Reason Stop Dose Admin Acetaminophen 650 mg 08/17/21 07:50 08/22/21 10:29 Acetaminophen 325 Mg Tab PO 650 mg Q6H PRN Administration Pain, Mild (1-3) Acetaminophen 650 mg 08/17/21 08:17 08/17/21 14:49 Acetaminophen 650 Mg Rect Supp AL 650 mg Q4H PRN Administration Pain, Mild (1-3) Amlodipine Besylate 10 mg 08/22/21 11:00 08/23/21 17:11 Amlodipine 10 Mg Tab PO 10 mg QDAY HAM Administration Aspirin 325 mg 08/22/21 10:00 08/23/21 17:07 Aspirin 325 Mg Tab FEEDTUBE 325 mg QDAY HAM Administration Citalopram Hydrobromide 20 mg 08/22/21 11:00 08/23/21 11:00 Citalopram 20 Mg Tab PO Not Given QDAY HAM Clonidine HCl 0.2 mg 08/22/21 11:00 08/23/21 21:33 Clonidine 0.2 Mg Tab PO 0.2 mg Q12HR HAM Administration Dextrose 50 ml 08/17/21 23:37 Dextrose 50% In Water (25gm) 50 Ml Syringe IV Q30MIN PRN Hypoglycemia Protocol Duloxetine HCl 30 mg 08/21/21 10:00 08/23/21 17:08 Duloxetine 30 Mg Cap PO Not Given QDAY HAM Famotidine 20 mg 08/20/21 10:00 08/23/21 17:12 Famotidine 20 Mg Tab FEEDTUBE 20 mg QDAY HAM Administration Haloperidol Lactate 5 mg 08/19/21 12:00 08/19/21 16:14 Haloperidol Lactate 5 Mg/1 Ml Inj IV 5 mg Q6H PRN Administration Agitation Heparin Sodium (Porcine) 5,000 unit 08/17/21 06:00 08/24/21 06:31 Heparin 5,000 Unit/1 Ml Vial SUB-Q 5,000 unit Q8HR HAM Administration Heparin Sodium (Porcine) 3,000 unit 08/17/21 07:41 Heparin 10,000 Units/10 Ml Vial IV KATI PRN hemodialysis Hydralazine HCl 100 mg 08/17/21 09:00 08/23/21 20:55 Hydralazine 100 Mg Tab PO 100 mg TID HAM Administration Hydralazine HCl 10 mg 08/17/21 07:56 08/23/21 08:17 Hydralazine 20 Mg/1 Ml Inj IV 10 mg Q4HR PRN Administration Hypertension Hydromorphone HCl 0.25 mg 08/17/21 07:50 08/24/21 06:31 Hydromorphone 0.5 Mg/0.5 Ml Inj IV 0.25 mg Q4H PRN Administration Pain, Moderate (4-6) Sodium Chloride 100 mls @ 999 mls/hr 08/18/21 10:08 Nacl 0.9% IV KATI PRN Hypotension Insulin Glargine 25 units 08/21/21 10:19 08/23/21 21:34 Insulin Glargine 100 Units/Ml SUB-Q 25 units QHS HAM Administration Insulin Human Lispro 0 unit 08/18/21 00:00 08/24/21 06:34 Insulin Lispro 100 Unit/Ml SUB-Q 2 unit Q6HR HAM Administration Protocol Levetiracetam 500 mg 08/20/21 10:00 08/23/21 10:47 Levetiracetam 500 Mg Tab PO 500 mg DAILY HAM Administration Levothyroxine Sodium 125 mcg 08/22/21 06:00 08/24/21 06:55 Levothyroxine 125 Mcg Tab PO Not Given QAM@0600 HAM Losartan Potassium 50 mg 08/17/21 10:00 08/23/21 11:00 Losartan 50 Mg Tab PO 50 mg QDAY HAM Administration Magnesium Hydroxide 30 ml 08/17/21 04:09 08/23/21 23:56 Magnesium Hydroxide (Mom) Oral Liqd Udc PO 30 ml Q4H PRN Administration Constipation Metoprolol Tartrate 100 mg 08/20/21 11:00 08/23/21 21:34 Metoprolol Tartrate 100 Mg Tab PO 100 mg BID HAM Administration Ondansetron HCl 4 mg 08/17/21 04:09 Ondansetron 4 Mg/2 Ml Inj IV Q8H PRN Nausea And Vomiting Sodium Chloride 10 ml 08/17/21 10:00 08/23/21 21:35 Sodium Chloride 0.9% 10 Ml Flush Syringe IV 10 ml BID HAM Administration Sodium Chloride 10 ml 08/17/21 04:09 08/19/21 02:59 Sodium Chloride 0.9% 10 Ml Flush Syringe IV 10 ml PRN PRN Administration LINE FLUSH Nutrition/Malnutrition Assess - Dietary Evaluation Nutrition/Malnutrition Findings: Nutrition Notes Start: 08/17/21 1 2:51 Freq: Status: Active Protocol: Document 08/22/21 17:48 GABRIEL (Rec: 08/22/21 18:10 GABRIEL [id number]) Nutrition Notes Initial or Follow up Brief Note Current Diagnosis CKD (stage V CKD),Diabetes, Sepsis,Hypertension,Stroke Other Pertinent Diagnosis ESRD+HD/Fistula Malfunction, Metabolic Encephalopathy & Acidosis, DKA, SIRS Current Diet TF-Nepro @ 40 ml/hr (since D 08/19), NPO (from 08/23 00:01) . Height 5 ft 8 in Weight 104.32 kg [place] Body Weight (kg) 63.63 BMI 34.9 Weight change and time frame No body weight change in 5 days reported. Weight Status Obese Subjective/Other Information RD consult for routine F/U on TF tolerance/continuation. TF continues as prescribed, will be discontinued after midnight. Pt is on Room Air, O2 saturation @ 98%, according to Physical Assessment History notes. Percent of energy/protein needs met: Prescribed TF-Nepro w/ CARBSTEADY @ 40 ml/hr provides for energy/protein needs (1, 728 Kcal/78 g) during LOS, 104 % Kcal; 77% AA. #1 Nutrition Diagnosis Inadequate oral intake Diagnosis Progress(for reassessment Continues documentation) Is patient on ventilator? No Is Patient Ambulatory and/or Out of Bed No REE-([facility]-confined to bed) 2098.920 Kcal/Kg value to use for calculation 16 Approximate Energy Requirements Using 1669 kcal/Kg Additional Notes Protein: >1.2 g/Kg AdjBW; >101 g/day. Fluids: 1 ml/Kcal, or as per MD. Nutrition Intervention Nutrition Support: Continue TF-Nepro w/CARBSTEADY @ 40 ml/hr. Flush: 150 ml water Q 4 hr, or as per MD. Kcal 1,728 Protein (gm) 78 Carbohydrates (gm) 155 Fat (gm) 92 Fluid (mL) 698 Fiber (gm) 12 % RDI: 104% Kcal; 77% AA. Goal #1 Provide at least 75% of energy /protein needs through Enteral Feeding during LOS. Goal #2 Maintain body weight within +/ -3% of admission body weight during LOS. Follow-Up By: 08/24/21 Additional Comments When pertinent, continue monitoring TF tolerance, SOCIAL INSURANCE ADMINISTRATOR evaluation, and BM.
--- NOTE | 2021-08-24 09:10 | Progress Note ---
Assessment and Plan 41-year-old female with known history of CVA, end-stage renal disease on dialysis on Mondays, Wednesdays and Fridays, diabetes mellitus brought into the emergency room accompanied by family for evaluation of changes in mental status which was said to have started at about 8 PM the day before coming to ER. Blood glucose was said to have been checked at home and reading was said to be high. There has been no nausea or vomiting, no diarrhea no complaints of abdominal pain. No chest pain or shortness of breath. Patient was said to have missed a dialysis on Sunday because she had not been feeling quite well. Work-up in the emergency room , labs shows blood glucose of 533, anion gap of 28, BUN of 61 and creatinine of 10.3. CT of the head reveals no acute abnormality. Patient has been started on IV fluid and insulin drip. She was closely monitored in the intensive care unit. Past Medical History: dialysis, DVT, ESRD, hypertension, migraines, stroke Past Surgical History: No surgical history Social history: no significant social history Allergic to Vancomycin. Patient awake, following simple commands.. Patient is on room air. O2 saturation 97%. No complaint of chest pain, shortness of breath or cough. Patient afebrile. Has leukocytosis. Blood pressure 188/87, Pulse 80 , Respirations 20. Patients last blood sugur 110. Chest xray 08/17/21 reported is poor inspiration. No significant pulmonary or pleural abnormality. No pneumothorax. Venous doppler studies Bilateral 08/17/21 reported No sonographic evidence for acute DVT in either lower extremity. 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 Patient is on S/C Heparin, Famotidine, S/C Insulin and I/V fluids. - Patient Problems (1) DKA (diabetic ketoacidosis) Current Visit: Yes Status: Acute Qualifiers: Diabetes mellitus type: type 1 Diabetes mellitus complication detail: without coma Qualified Code(s): E10.10 - Type 1 diabetes mellitus with ketoacidosis without coma Plan to address problem: Improving. Last blood sugur 110. Anion gap still high 22. Recommend to repeat BMP with anion gap. Follow anion gap and blood sugur. Management as per primary care. (2) End stage renal disease on dialysis Current Visit: Yes Status: Acute Plan to address problem: Patient is on Hemodialysis. Management as per nephrology. (3) Acute ischemic stroke Current Visit: No Status: Acute Plan to address problem: Management as per primary care and neurology. (4) HTN (hypertension), malignant Current Visit: No Status: Acute Plan to address problem: Patient is on Metaprolol, COzzar, Hydralagine and catapress. Management as per primary care. (5) DVT (deep venous thrombosis) Current Visit: No Status: Chronic Plan to address problem: Venous doppler studies Bilateral 08/17/21 reported No sonographic evidence for acute DVT in either lower extremity. 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 Patient is on S/C Heparin. (6) Hypothyroidism Current Visit: No Status: Chronic Plan to address problem: Patient is on Levothyroxine. Management as per primary care. Subjective Date of service: 08/24/21 Principal diagnosis: encephalopathy Interval history: 41-year-old female with known history of CVA, end-stage renal disease on dialysis on Mondays, Wednesdays and Fridays, diabetes mellitus brought into the emergency room accompanied by family for evaluation of changes in mental status which was said to have started at about 8 PM the day before coming to ER. Blood glucose was said to have been checked at home and reading was said to be high. There has been no nausea or vomiting, no diarrhea no complaints of abdominal pain. No chest pain or shortness of breath. Patient was said to have missed a dialysis on Sunday because she had not been feeling quite well. Work-up in the emergency room , labs shows blood glucose of 533, anion gap of 28, BUN of 61 and creatinine of 10.3. CT of the head reveals no acute abnormality. Patient has been started on IV fluid and insulin drip. She was closely monitored in the intensive care unit. Past Medical History: dialysis, DVT, ESRD, hypertension, migraines, stroke Past Surgical History: No surgical history Social history: no significant social history Allergic to Vancomycin. Patient awake, following simple commands.. Patient is on room air. O2 saturation 97%. No complaint of chest pain, shortness of breath or cough. Patient afebrile. Has leukocytosis. Blood pressure 188/87, Pulse 80 , Respirations 20. Patients last blood sugur 110. Chest xray 08/17/21 reported is poor inspiration. No significant pulmonary or pleural abnormality. No pneumothorax. Venous doppler studies Bilateral 08/17/21 reported No sonographic evidence for acute DVT in either lower extremity. 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 Patient is on S/C Heparin, Famotidine, S/C Insulin and I/V fluids. Objective Vital Signs - 12hr 08/23/21 08/23/21 08/23/21 21:33 21:34 22:00 Temperature Pulse Rate 88 88 71 Respiratory Rate Blood Pressure 195/96 195/96 O2 Sat by Pulse 98 Oximetry 08/24/21 08/24/21 08/24/21 00:00 00:43 03:38 Temperature 98.5 F Pulse Rate 71 69 Respiratory 19 18 Rate Blood Pressure 146/76 O2 Sat by Pulse 96 Oximetry 08/24/21 08/24/21 04:00 07:00 Temperature 98.5 F 98.2 F Pulse Rate 73 80 Respiratory 18 20 Rate Blood Pressure 188/87 O2 Sat by Pulse 96 97 Oximetry Constitutional: no acute distress, alert Eyes: non-icteric ENT: oropharynx dry Neck: supple, no lymphadenopathy Effort: mildly labored Ascultation: Bilateral: diminished breath sounds Cardiovascular: regular rate and rhythm, other (S1,S2) Gastrointestinal: normoactive bowel sounds, soft, non-tender, other (obese) Integumentary: normal Extremities: no cyanosis, no edema Neurologic: pupils equal and round, unable to assess (moves all extremities, not obeying commands) Psychiatric: other (Unable to assess mood or affect secondary to mental status) CBC and BMP: 08/24/21 04:23 08/24/21 04:23 ABG, PT/INR, D-dimer: PT/INR, D-dimer PT 14.0 Sec. (12.2-14.9) 08/23/21 22:59 INR 0.97 (0.87-1.13) 08/23/21 22:59 D-Dimer 2695.37 ng/mlDDU (0-234) H 08/17/21 14:40 Abnormal lab findings: Abnormal Labs 08/17/21 08/17/21 08/17/21 00:33 00:33 02:07 WBC MCH RDW 19.7 H Lymph % (Auto) 10.5 L [place] % (Auto) Lymph # (Auto) 1.1 L [place] # (Auto) Baso # (Auto) Seg Neutrophils % 79.1 H Seg Neutrophils # 8.6 H D-Dimer Sodium 132 L 134 L Chloride 87.8 L 88.4 L Carbon Dioxide 21 L BUN 61 H 61 H Creatinine 10.1 H 10.3 H Glucose 594 H* 533 H* POC Glucose Hemoglobin A1c Calcium Phosphorus Magnesium ALT < 5 L Alkaline Phosphatase 182 H NT-Pro-B Natriuret Pep 21789 H Albumin HDL Cholesterol TSH Salicylates Acetaminophen 08/17/21 08/17/21 08/17/21 02:07 02:07 02:07 WBC MCH RDW Lymph % (Auto) [place] % (Auto) Lymph # (Auto) [place] # (Auto) Baso # (Auto) Seg Neutrophils % Seg Neutrophils # D-Dimer Sodium Chloride Carbon Dioxide BUN Creatinine Glucose POC Glucose Hemoglobin A1c Calcium Phosphorus Magnesium ALT Alkaline Phosphatase NT-Pro-B Natriuret Pep Albumin HDL Cholesterol TSH 5.080 H Salicylates < 0.3 L Acetaminophen 5.0 L 08/17/21 08/17/21 08/17/21 04:20 04:20 05:09 WBC MCH RDW Lymph % (Auto) [place] % (Auto) Lymph # (Auto) [place] # (Auto) Baso # (Auto) Seg Neutrophils % Seg Neutrophils # D-Dimer Sodium 136 L Chloride 90.9 L Carbon Dioxide BUN 61 H Creatinine 10.4 H Glucose 351 H POC Glucose 298 H Hemoglobin A1c Calcium Phosphorus 6.20 H Magnesium ALT Alkaline Phosphatase NT-Pro-B Natriuret Pep Albumin HDL Cholesterol TSH Salicylates Acetaminophen 08/17/21 08/17/21 08/17/21 09:58 10:53 13:14 WBC MCH RDW Lymph % (Auto) [place] % (Auto) Lymph # (Auto) [place] # (Auto) Baso # (Auto) Seg Neutrophils % Seg Neutrophils # D-Dimer Sodium Chloride Carbon Dioxide BUN Creatinine Glucose POC Glucose 139 H 162 H 145 H Hemoglobin A1c Calcium Phosphorus Magnesium ALT Alkaline Phosphatase NT-Pro-B Natriuret Pep Albumin HDL Cholesterol TSH Salicylates Acetaminophen 08/17/21 08/17/21 08/17/21 14:40 14:40 14:40 WBC MCH RDW Lymph % (Auto) [place] % (Auto) Lymph # (Auto) [place] # (Auto) Baso # (Auto) Seg Neutrophils % Seg Neutrophils # D-Dimer 2695.37 H Sodium Chloride 96.7 L Carbon Dioxide BUN 63 H Creatinine 10.7 H Glucose 145 H POC Glucose Hemoglobin A1c Calcium Phosphorus Magnesium ALT Alkaline Phosphatase NT-Pro-B Natriuret Pep Albumin HDL Cholesterol 30 L TSH Salicylates Acetaminophen 08/17/21 08/17/21 08/17/21 14:40 16:45 17:47 WBC MCH RDW Lymph % (Auto) [place] % (Auto) Lymph # (Auto) [place] # (Auto) Baso # (Auto) Seg Neutrophils % Seg Neutrophils # D-Dimer Sodium Chloride 96.2 L Carbon Dioxide BUN 44 H Creatinine 7.2 H Glucose 167 H POC Glucose 136 H 165 H Hemoglobin A1c Calcium Phosphorus Magnesium ALT Alkaline Phosphatase NT-Pro-B Natriuret Pep Albumin HDL Cholesterol TSH Salicylates Acetaminophen 08/17/21 08/17/21 08/17/21 18:01 21:01 22:40 WBC MCH RDW Lymph % (Auto) [place] % (Auto) Lymph # (Auto) [place] # (Auto) Baso # (Auto) Seg Neutrophils % Seg Neutrophils # D-Dimer Sodium Chloride 97.1 L 96.4 L Carbon Dioxide BUN 39 H 40 H Creatinine 8.0 H 8.5 H Glucose 122 H 109 H POC Glucose 172 H Hemoglobin A1c Calcium Phosphorus Magnesium ALT Alkaline Phosphatase NT-Pro-B Natriuret Pep Albumin HDL Cholesterol TSH Salicylates Acetaminophen 08/17/21 08/18/21 08/18/21 22:40 02:13 04:56 WBC MCH 27 L RDW 19.7 H Lymph % (Auto) [place] % (Auto) Lymph # (Auto) [place] # (Auto) Baso # (Auto) Seg Neutrophils % Seg Neutrophils # D-Dimer Sodium Chloride 96.8 L Carbon Dioxide BUN 44 H Creatinine 9.3 H Glucose 170 H POC Glucose 190 H Hemoglobin A1c Calcium Phosphorus 6.70 H Magnesium ALT Alkaline Phosphatase NT-Pro-B Natriuret Pep Albumin HDL Cholesterol TSH Salicylates Acetaminophen 08/18/21 08/18/21 08/18/21 04:56 04:56 17:01 WBC MCH 27 L RDW 19.7 H Lymph % (Auto) [place] % (Auto) 9.7 H Lymph # (Auto) [place] # (Auto) Baso # (Auto) Seg Neutrophils % Seg Neutrophils # D-Dimer Sodium Chloride Carbon Dioxide BUN Creatinine Glucose POC Glucose 228 H Hemoglobin A1c 10.2 H Calcium Phosphorus Magnesium ALT Alkaline Phosphatase NT-Pro-B Natriuret Pep Albumin HDL Cholesterol TSH Salicylates Acetaminophen 08/18/21 08/19/21 08/19/21 23:58 04:37 04:37 WBC MCH 27 L RDW 19.5 H Lymph % (Auto) [place] % (Auto) Lymph # (Auto) [place] # (Auto) Baso # (Auto) Seg Neutrophils % Seg Neutrophils # D-Dimer Sodium Chloride 96.7 L Carbon Dioxide 21 L BUN 57 H Creatinine 10.2 H Glucose 151 H POC Glucose 192 H Hemoglobin A1c Calcium Phosphorus Magnesium ALT Alkaline Phosphatase NT-Pro-B Natriuret Pep Albumin HDL Cholesterol TSH Salicylates Acetaminophen 08/19/21 08/19/21 08/20/21 17:46 22:59 04:24 WBC MCH RDW Lymph % (Auto) [place] % (Auto) Lymph # (Auto) [place] # (Auto) Baso # (Auto) Seg Neutrophils % Seg Neutrophils # D-Dimer Sodium 133 L Chloride 87.9 L Carbon Dioxide 15 L BUN 33 H Creatinine 7.3 H Glucose 365 H POC Glucose 217 H 282 H Hemoglobin A1c Calcium Phosphorus 6.50 H Magnesium ALT Alkaline Phosphatase NT-Pro-B Natriuret Pep Albumin HDL Cholesterol TSH Salicylates Acetaminophen 08/20/21 08/20/21 08/20/21 06:07 07:51 15:37 WBC MCH RDW Lymph % (Auto) [place] % (Auto) Lymph # (Auto) [place] # (Auto) Baso # (Auto) Seg Neutrophils % Seg Neutrophils # D-Dimer Sodium Chloride Carbon Dioxide BUN Creatinine Glucose POC Glucose 398 H 308 H 247 H Hemoglobin A1c Calcium Phosphorus Magnesium ALT Alkaline Phosphatase NT-Pro-B Natriuret Pep Albumin HDL Cholesterol TSH Salicylates Acetaminophen 08/20/21 08/21/21 08/21/21 23:22 04:45 05:07 WBC MCH RDW Lymph % (Auto) [place] % (Auto) Lymph # (Auto) [place] # (Auto) Baso # (Auto) Seg Neutrophils % Seg Neutrophils # D-Dimer Sodium 134 L Chloride 92.9 L Carbon Dioxide BUN 48 H Creatinine 8.0 H Glucose 389 H POC Glucose 316 H 407 H Hemoglobin A1c Calcium 10.6 H Phosphorus Magnesium ALT Alkaline Phosphatase NT-Pro-B Natriuret Pep Albumin HDL Cholesterol TSH Salicylates Acetaminophen 08/21/21 08/21/21 08/21/21 11:37 15:52 23:44 WBC MCH RDW Lymph % (Auto) [place] % (Auto) Lymph # (Auto) [place] # (Auto) Baso # (Auto) Seg Neutrophils % Seg Neutrophils # D-Dimer Sodium Chloride Carbon Dioxide BUN Creatinine Glucose POC Glucose 244 H 325 H 221 H Hemoglobin A1c Calcium Phosphorus Magnesium ALT Alkaline Phosphatase NT-Pro-B Natriuret Pep Albumin HDL Cholesterol TSH Salicylates Acetaminophen 08/22/21 08/22/21 08/23/21 06:06 12:27 00:37 WBC MCH RDW Lymph % (Auto) [place] % (Auto) Lymph # (Auto) [place] # (Auto) Baso # (Auto) Seg Neutrophils % Seg Neutrophils # D-Dimer Sodium Chloride Carbon Dioxide BUN Creatinine Glucose POC Glucose 224 H 247 H 341 H Hemoglobin A1c Calcium Phosphorus Magnesium ALT Alkaline Phosphatase NT-Pro-B Natriuret Pep Albumin HDL Cholesterol TSH Salicylates Acetaminophen 08/23/21 08/23/21 08/23/21 04:20 05:37 11:56 WBC MCH RDW Lymph % (Auto) [place] % (Auto) Lymph # (Auto) [place] # (Auto) Baso # (Auto) Seg Neutrophils % Seg Neutrophils # D-Dimer Sodium Chloride 94.4 L Carbon Dioxide BUN 49 H Creatinine 7.7 H Glucose 201 H POC Glucose 210 H 162 H Hemoglobin A1c Calcium 10.9 H Phosphorus Magnesium ALT Alkaline Phosphatase NT-Pro-B Natriuret Pep Albumin HDL Cholesterol TSH Salicylates Acetaminophen 08/23/21 08/23/21 08/23/21 17:45 22:58 22:59 WBC 12.2 H MCH 26 L RDW 20.3 H Lymph % (Auto) [place] % (Auto) Lymph # (Auto) [place] # (Auto) Baso # (Auto) Seg Neutrophils % Seg Neutrophils # D-Dimer Sodium Chloride Carbon Dioxide BUN Creatinine Glucose POC Glucose 211 H 218 H Hemoglobin A1c Calcium Phosphorus Magnesium ALT Alkaline Phosphatase NT-Pro-B Natriuret Pep Albumin HDL Cholesterol TSH Salicylates Acetaminophen 08/23/21 08/24/21 08/24/21 22:59 04:23 04:23 WBC 15.4 H MCH 27 L RDW 19.8 H Lymph % (Auto) [place] % (Auto) 13.0 H Lymph # (Auto) [place] # (Auto) 2.0 H Baso # (Auto) 0.2 H Seg Neutrophils % Seg Neutrophils # 9.8 H D-Dimer Sodium 136 L Chloride 93.0 L Carbon Dioxide BUN 73 H Creatinine 8.7 H 9.2 H Glucose 145 H POC Glucose Hemoglobin A1c Calcium 10.7 H Phosphorus 6.30 H Magnesium 2.70 H ALT 6 L Alkaline Phosphatase 157 H NT-Pro-B Natriuret Pep Albumin 3.7 L HDL Cholesterol TSH Salicylates Acetaminophen 08/24/21 05:09 WBC MCH RDW Lymph % (Auto) [place] % (Auto) Lymph # (Auto) [place] # (Auto) Baso # (Auto) Seg Neutrophils % Seg Neutrophils # D-Dimer Sodium Chloride Carbon Dioxide BUN Creatinine Glucose POC Glucose 155 H Hemoglobin A1c Calcium Phosphorus Magnesium ALT Alkaline Phosphatase NT-Pro-B Natriuret Pep Albumin HDL Cholesterol TSH Salicylates Acetaminophen Chest x-ray: report reviewed, image reviewed Additional Studies: CHEST 1 VIEW 08/22/2021 12:35 PM INDICATION / CLINICAL INFORMATION: Tachypnea. COMPARISON: 08/17/21. FINDINGS: SUPPORT DEVICES: There is a new feeding tube coursing into the stomach with the tip not seen. HEART / MEDIASTINUM: Mild cardiomegaly is stable. LUNGS / PLEURA: Lung volumes have improved. No acute pulmonary or pleural abn ormality. No pneumothorax. ADDITIONAL FINDINGS: There is partial resection of the distal right clavicle. There is a vascular graft in the left axillary region. IMPRESSION: No acute findings. Allied health notes reviewed: nursing
[2021-08-24] MEDS: hydrALAZINE 20 MG/1 ML INJ IV PRN (10:11)
--- NOTE | 2021-08-24 11:23 | XRay Report ---
XR abdomen 1V ap INDICATION: dobhoff placement. COMPARISON: None available. FINDINGS: The tip of the feeding tube projects over the body of the stomach. Signer Name: Xu Blanchard MD Signed: 08/24/2021 11:19 AM Workstation Name: [id number]
--- NOTE | 2021-08-24 11:41 | Progress Note ---
Assessment and Plan ESRD - HD today via Rt arm AVG HTN - Adjust meds for better control HyperCalcemia - Low Ca bath on HD HD Access - S/p thrombectomy Rt arm AVG. Remove Femoral Vascath after HD Subjective Date of service: 08/24/21 Principal diagnosis: encephalopathy Interval history: No new complaint Objective - Vital Signs Vital signs: Vital Signs - 12hr 08/24/21 08/24/21 08/24/21 00:00 00:43 03:38 Temperature 98.5 F Pulse Rate 71 69 Respiratory 19 18 Rate Blood Pressure 146/76 O2 Sat by Pulse 96 Oximetry 08/24/21 08/24/21 08/24/21 04:00 07:00 10:00 Temperature 98.5 F 98.2 F Pulse Rate 73 80 80 Respiratory 18 20 Rate Blood Pressure 188/87 O2 Sat by Pulse 96 97 Oximetry 08/24/21 10:11 Temperature Pulse Rate 80 Respiratory Rate Blood Pressure 188/87 O2 Sat by Pulse Oximetry - General Appearance General appearance: other (Awake & responsive) EENT: PERRL, hearing intact Neck: no JVD Respiratory: Present: Clear to Ascultation Cardiology: regular, S1S2 Gastrointestinal: normal Neurologic: other (Awake & responsive) Psychiatric: mood/affect appropriate (+Bruit Rt arm AVG ) - Lab 08/24/21 04:23 08/24/21 04:23 Most recent lab results Calcium 10.7 mg/dL (8.4-10.2) H 08/24/21 04:23 Phosphorus 6.30 mg/dL (2.5-4.5) H 08/24/21 04:23 Magnesium 2.70 mg/dL (1.7-2.3) H 08/24/21 04:23 Medications & Allergies - Medications Allergies/Adverse Reactions: Allergies vancomycin Adverse Reaction (Verified 04/02/13 10:16) Hives Home Medications: Home Medications Medication Instructions Recorded Confirmed Last Taken Type Hydralazine HCl [hydrALAZINE] 100 mg PO BID 04/02/13 08/17/21 04/02/13 08:00 History Aspirin/Dipyridamole [Aggrenox] 1 cap PO BID #60 capsule 04/10/13 08/17/21 Unknown Rx Cinacalcet [Sensipar] 60 mg PO QDAY 08/17/21 08/17/21 Unknown History Citalopram [celeXA] 20 mg PO QDAY 08/17/21 08/17/21 Unknown History Ergocalciferol [Vitamin D2] 1 cap PO QWEEK 08/17/21 08/17/21 Unknown History Gabapentin [Neurontin] 100 mg PO Q8HR 08/17/21 08/17/21 Unknown History Insulin Glargine,Hum.rec.anlog 55 unit SQ BID 08/17/21 08/17/21 Unknown History [Lantus Solostar] Promethazine [Phenergan] 25 mg PO Q6HR PRN 08/17/21 08/17/21 Unknown History Sevelamer Carbonate [Renvela] 800 mg PO TIDWM 08/17/21 08/17/21 Unknown History amLODIPine [Norvasc] 10 mg PO DAILY 08/17/21 08/17/21 Unknown History carvediloL [Coreg] 25 mg PO BID 08/17/21 08/17/21 Unknown History cloNIDine [Catapres] 0.2 mg PO BID 08/17/21 08/17/21 Unknown History Active Medications: Generic Name Dose Route Start Last Admin Trade Name Freq PRN Reason Stop Dose Admin Acetaminophen 650 mg 08/17/21 07:50 08/22/21 10:29 Acetaminophen 325 Mg Tab PO 650 mg Q6H PRN Administration Pain, Mild (1-3) Acetaminophen 650 mg 08/17/21 08:17 08/17/21 14:49 Acetaminophen 650 Mg Rect Supp NV 650 mg Q4H PRN Administration Pain, Mild (1-3) Amlodipine Besylate 10 mg 08/22/21 11:00 08/23/21 17:11 Amlodipine 10 Mg Tab PO 10 mg QDAY HAM Administration Aspirin 325 mg 08/22/21 10:00 08/23/21 17:07 Aspirin 325 Mg Tab FEEDTUBE 325 mg QDAY HAM Administration Citalopram Hydrobromide 20 mg 08/22/21 11:00 08/23/21 11:00 Citalopram 20 Mg Tab PO Not Given QDAY HAM Clonidine HCl 0.2 mg 08/22/21 11:00 08/23/21 21:33 Clonidine 0.2 Mg Tab PO 0.2 mg Q12HR HAM Administration Dextrose 50 ml 08/17/21 23:37 Dextrose 50% In Water (25gm) 50 Ml Syringe IV Q30MIN PRN Hypoglycemia Protocol Duloxetine HCl 30 mg 08/21/21 10:00 08/23/21 17:08 Duloxetine 30 Mg Cap PO Not Given QDAY HAM Famotidine 20 mg 08/20/21 10:00 08/23/21 17:12 Famotidine 20 Mg Tab FEEDTUBE 20 mg QDAY HAM Administration Haloperidol Lactate 5 mg 08/19/21 12:00 08/19/21 16:14 Haloperidol Lactate 5 Mg/1 Ml Inj IV 5 mg Q6H PRN Administration Agitation Heparin Sodium (Porcine) 5,000 unit 08/17/21 06:00 08/24/21 06:31 Heparin 5,000 Unit/1 Ml Vial SUB-Q 5,000 unit Q8HR HAM Administration Heparin Sodium (Porcine) 3,000 unit 08/17/21 07:41 Heparin 10,000 Units/10 Ml Vial IV KATI PRN hemodialysis Hydralazine HCl 100 mg 08/17/21 09:00 08/23/21 20:55 Hydralazine 100 Mg Tab PO 100 mg TID HAM Administration Hydralazine HCl 10 mg 08/17/21 07:56 08/24/21 10:11 Hydralazine 20 Mg/1 Ml Inj IV 10 mg Q4HR PRN Administration Hypertension Hydromorphone HCl 0.25 mg 08/17/21 07:50 08/24/21 06:31 Hydromorphone 0.5 Mg/0.5 Ml Inj IV 0.25 mg Q4H PRN Administration Pain, Moderate (4-6) Sodium Chloride 100 mls @ 999 mls/hr 08/18/21 10:08 Nacl 0.9% IV KATI PRN Hypotension Insulin Glargine 25 units 08/21/21 10:19 08/23/21 21:34 Insulin Glargine 100 Units/Ml SUB-Q 25 units QHS HAM Administration Insulin Human Lispro 0 unit 08/18/21 00:00 08/24/21 06:34 Insulin Lispro 100 Unit/Ml SUB-Q 2 unit Q6HR HAM Administration Protocol Levetiracetam 500 mg 08/20/21 10:00 08/23/21 10:47 Levetiracetam 500 Mg Tab PO 500 mg DAILY HAM Administration Levothyroxine Sodium 125 mcg 08/22/21 06:00 08/24/21 06:55 Levothyroxine 125 Mcg Tab PO Not Given QAM@0600 HAM Losartan Potassium 50 mg 08/17/21 10:00 08/23/21 11:00 Losartan 50 Mg Tab PO 50 mg QDAY HAM Administration Magnesium Hydroxide 30 ml 08/17/21 04:09 08/23/21 23:56 Magnesium Hydroxide (Mom) Oral Liqd Udc PO 30 ml Q4H PRN Administration Constipation Metoprolol Tartrate 100 mg 08/20/21 11:00 08/23/21 21:34 Metoprolol Tartrate 100 Mg Tab PO 100 mg BID HAM Administration Ondansetron HCl 4 mg 08/17/21 04:09 Ondansetron 4 Mg/2 Ml Inj IV Q8H PRN Nausea And Vomiting Sodium Chloride 10 ml 08/17/21 10:00 08/23/21 21:35 Sodium Chloride 0.9% 10 Ml Flush Syringe IV 10 ml BID HAM Administration Sodium Chloride 10 ml 08/17/21 04:09 08/19/21 02:59 Sodium Chloride 0.9% 10 Ml Flush Syringe IV 10 ml PRN PRN Administration LINE FLUSH
[2021-08-24] MEDS: hydrALAZINE 100 MG TAB PO SCH ×3 (12:00→21:20)
[2021-08-24] MEDS: CITALOPRAM 20 MG TAB PO SCH (12:00)
[2021-08-24] MEDS: FAMOTIDINE 20 MG TAB FEEDTUBE SCH (12:00)
[2021-08-24] MEDS: ASPIRIN 325 MG TAB FEEDTUBE SCH (12:00)
[2021-08-24] MEDS: cloNIDine 0.2 MG TAB PO SCH ×2 (12:01→21:20)
[2021-08-24] MEDS: amLODIPine 10 MG TAB PO SCH (12:01)
[2021-08-24] MEDS: levETIRAcetam 500 MG TAB PO SCH (12:01)
[2021-08-24] MEDS: LOSARTAN 50 MG TAB PO SCH (12:01)
[2021-08-24] MEDS: METOPROLOL TARTRATE 100 MG TAB PO SCH ×2 (12:01→21:19)
[2021-08-24] MEDS: INSULIN GLARGINE 100 UNITS/ML SUB-Q SCH (23:30)
[2021-08-25] MEDS: INSULIN LISPRO 100 UNIT/ML SUB-Q SCH ×5 (00:29→18:30)
[2021-08-25] MEDS: hydrALAZINE 20 MG/1 ML INJ IV PRN (05:19)
[2021-08-25] MEDS: HYDROmorphone 0.5 MG/0.5 ML INJ IV PRN ×3 (05:19→17:22)
[2021-08-25] MEDS: HEPARIN 5,000 UNIT/1 ML VIAL SUB-Q SCH ×3 (05:20→22:40)
[2021-08-25] MEDS: LEVOTHYROXINE 125 MCG TAB PO SCH (05:20)
[2021-08-25 05:26] LABS: Hematocrit 35.9 % (30.3-42.9); Hemoglobin 11.4 gm/dl (10.1-14.3); Mean Corpuscular HGB Conc 32 % (30-34); Mean Corpuscular Volume 85 fl (79-97); Platelet Count 184 K/mm3 (140-440); Red Blood Count 4.21 M/mm3 (3.65-5.03)
[2021-08-25 05:35] LABS: Red Cell Distribution Width 20.4 % (13.2-15.2)
[2021-08-25] MEDS: METOPROLOL TARTRATE 100 MG TAB PO SCH ×2 (09:50→22:40)
[2021-08-25] MEDS: FAMOTIDINE 20 MG TAB FEEDTUBE SCH (09:50)
[2021-08-25] MEDS: CITALOPRAM 20 MG TAB PO SCH (09:50)
[2021-08-25] MEDS: cloNIDine 0.2 MG TAB PO SCH ×2 (09:50→22:40)
[2021-08-25] MEDS: ASPIRIN 325 MG TAB FEEDTUBE SCH (09:50)
[2021-08-25] MEDS: levETIRAcetam 500 MG TAB PO SCH (09:50)
[2021-08-25] MEDS: LOSARTAN 50 MG TAB PO SCH (09:50)
[2021-08-25] MEDS: hydrALAZINE 100 MG TAB PO SCH ×3 (09:50→22:40)
[2021-08-25] MEDS: amLODIPine 10 MG TAB PO SCH (09:50)
--- NOTE | 2021-08-25 13:08 | Progress Note ---
Assessment and Plan Possible Sepsis (high grade fevers, tachycardia, acute encephalopathy, tachypnea) DKA Acute Metabolic Encephalopathy h/o CVA with left-sided deficits End Stage renal Disease on HD HTN Hypothyroidism - BREAD ICER evaluation and advance diet per recommendations - s/p thrombectomy. - continue keppra as AED - prn Haldol for delirium / agitation - supplemental oxygen for target O2 sats > 90% - prn bronchodilators (DG) with pulm hygiene per RT - continue HD/UF per nephrology prescription for toxin and volume clearance - continue to avoid nephrotoxins, renally dose all medications - continue mobility protocols to prevent pressure ulcers - PT/OT as tolerated - Wound care per RN/WCT - continue accuchecks with glycemic control per SSI for target blood glucose < 180 mg/dL - tobacco abstinence counseled at the bedside - home oxygen evaluation at discharge - GI & VTE prophylaxis - Flu & pneumovax per protocol - Pulmonary out patient follow up for PFTs and optimization of respiratory status - continue other care per attending / other consultants - prn analgesia per pain score COVID SPECIFIC INTERVENTIONS - COVID-19 PCR negative ... re-evaluate in am & prn Subjective Date of service: 08/25/21 Principal diagnosis: Possible Sepsis; DKA; AMS; h/o CVA left hemiparesis; ESRD on Dialysis; HTN Interval history: Patient is seen today for: Possible Sepsis; DKA; Acute Metabolic Encephalopathy; h/o CVA with left-sided deficits; End Stage renal Disease on HD; HTN Seen and examined at bedside; 24hour events reviewed; nursing and respiratory care staff consulted; no adverse overnight events reported to me; resting peacefully in bed; her mother is visiting; wants to eat; denies chest pains or acute SOB; denies N/V/F/C Objective Vital Signs - 12hr 08/25/21 08/25/21 08/25/21 01:58 04:54 07:50 Temperature 98.3 F 98.7 F 97.8 F Pulse Rate 80 69 74 Respiratory 16 16 22 Rate Blood Pressure 162/86 Blood Pressure 155/74 182/86 [Right] O2 Sat by Pulse 100 98 98 Oximetry 08/25/21 11:29 Temperature 98.9 F Pulse Rate 78 Respiratory 20 Rate Blood Pressure 154/82 Blood Pressure [Right] O2 Sat by Pulse 99 Oximetry Constitutional: no acute distress, alert Eyes: non-icteric ENT: oropharynx moist Neck: supple, no lymphadenopathy, no JVD, other (large circumference) Effort: mildly labored Ascultation: Bilateral: clear, diminished breath sounds Percussion: Bilateral: not dull Cardiovascular: regular rate and rhythm, other (S1,S2) Gastrointestinal: normoactive bowel sounds, soft, non-tender, non-distended (protuberant), other (obese) Integumentary: normal Extremities: no cyanosis, no edema, pulses normal, no ischemia or petechiae Neurologic: non-focal exam (grossly), pupils equal and round, CN II-XII normal, other (weak) Psychiatric: mood appropriate, affect normal CBC and BMP: 08/25/21 04:44 08/26/21 05:22 ABG, PT/INR, D-dimer: PT/INR, D-dimer PT 14.0 Sec. (12.2-14.9) 08/23/21 22:59 INR 0.97 (0.87-1.13) 08/23/21 22:59 D-Dimer 2695.37 ng/mlDDU (0-234) H 08/17/21 14:40 Abnormal lab findings: Abnormal Labs 08/17/21 08/17/21 08/17/21 00:33 00:33 02:07 WBC MCH RDW 19.7 H Lymph % (Auto) 10.5 L [place] % (Auto) Lymph # (Auto) 1.1 L [place] # (Auto) Baso # (Auto) Seg Neutrophils % 79.1 H Seg Neutrophils # 8.6 H D-Dimer Sodium 132 L 134 L Chloride 87.8 L 88.4 L Carbon Dioxide 21 L BUN 61 H 61 H Creatinine 10.1 H 10.3 H Glucose 594 H* 533 H* POC Glucose Hemoglobin A1c Calcium Phosphorus Magnesium ALT < 5 L Alkaline Phosphatase 182 H NT-Pro-B Natriuret Pep 88892 H Albumin HDL Cholesterol TSH Salicylates Acetaminophen 08/17/21 08/17/21 08/17/21 02:07 02:07 02:07 WBC MCH RDW Lymph % (Auto) [place] % (Auto) Lymph # (Auto) [place] # (Auto) Baso # (Auto) Seg Neutrophils % Seg Neutrophils # D-Dimer Sodium Chloride Carbon Dioxide BUN Creatinine Glucose POC Glucose Hemoglobin A1c Calcium Phosphorus Magnesium ALT Alkaline Phosphatase NT-Pro-B Natriuret Pep Albumin HDL Cholesterol TSH 5.080 H Salicylates < 0.3 L Acetaminophen 5.0 L 08/17/21 08/17/21 08/17/21 04:20 04:20 05:09 WBC MCH RDW Lymph % (Auto) [place] % (Auto) Lymph # (Auto) [place] # (Auto) Baso # (Auto) Seg Neutrophils % Seg Neutrophils # D-Dimer Sodium 136 L Chloride 90.9 L Carbon Dioxide BUN 61 H Creatinine 10.4 H Glucose 351 H POC Glucose 298 H Hemoglobin A1c Calcium Phosphorus 6.20 H Magnesium ALT Alkaline Phosphatase NT-Pro-B Natriuret Pep Albumin HDL Cholesterol TSH Salicylates Acetaminophen 08/17/21 08/17/21 08/17/21 09:58 10:53 13:14 WBC MCH RDW Lymph % (Auto) [place] % (Auto) Lymph # (Auto) [place] # (Auto) Baso # (Auto) Seg Neutrophils % Seg Neutrophils # D-Dimer Sodium Chloride Carbon Dioxide BUN Creatinine Glucose POC Glucose 139 H 162 H 145 H Hemoglobin A1c Calcium Phosphorus Magnesium ALT Alkaline Phosphatase NT-Pro-B Natriuret Pep Albumin HDL Cholesterol TSH Salicylates Acetaminophen 08/17/21 08/17/21 08/17/21 14:40 14:40 14:40 WBC MCH RDW Lymph % (Auto) [place] % (Auto) Lymph # (Auto) [place] # (Auto) Baso # (Auto) Seg Neutrophils % Seg Neutrophils # D-Dimer 2695.37 H Sodium Chloride 96.7 L Carbon Dioxide BUN 63 H Creatinine 10.7 H Glucose 145 H POC Glucose Hemoglobin A1c Calcium Phosphorus Magnesium ALT Alkaline Phosphatase NT-Pro-B Natriuret Pep Albumin HDL Cholesterol 30 L TSH Salicylates Acetaminophen 08/17/21 08/17/21 08/17/21 14:40 16:45 17:47 WBC MCH RDW Lymph % (Auto) [place] % (Auto) Lymph # (Auto) [place] # (Auto) Baso # (Auto) Seg Neutrophils % Seg Neutrophils # D-Dimer Sodium Chloride 96.2 L Carbon Dioxide BUN 44 H Creatinine 7.2 H Glucose 167 H POC Glucose 136 H 165 H Hemoglobin A1c Calcium Phosphorus Magnesium ALT Alkaline Phosphatase NT-Pro-B Natriuret Pep Albumin HDL Cholesterol TSH Salicylates Acetaminophen 08/17/21 08/17/21 08/17/21 18:01 21:01 22:40 WBC MCH RDW Lymph % (Auto) [place] % (Auto) Lymph # (Auto) [place] # (Auto) Baso # (Auto) Seg Neutrophils % Seg Neutrophils # D-Dimer Sodium Chloride 97.1 L 96.4 L Carbon Dioxide BUN 39 H 40 H Creatinine 8.0 H 8.5 H Glucose 122 H 109 H POC Glucose 172 H Hemoglobin A1c Calcium Phosphorus Magnesium ALT Alkaline Phosphatase NT-Pro-B Natriuret Pep Albumin HDL Cholesterol TSH Salicylates Acetaminophen 08/17/21 08/18/21 08/18/21 22:40 02:13 04:56 WBC MCH 27 L RDW 19.7 H Lymph % (Auto) [place] % (Auto) Lymph # (Auto) [place] # (Auto) Baso # (Auto) Seg Neutrophils % Seg Neutrophils # D-Dimer Sodium Chloride 96.8 L Carbon Dioxide BUN 44 H Creatinine 9.3 H Glucose 170 H POC Glucose 190 H Hemoglobin A1c Calcium Phosphorus 6.70 H Magnesium ALT Alkaline Phosphatase NT-Pro-B Natriuret Pep Albumin HDL Cholesterol TSH Salicylates Acetaminophen 08/18/21 08/18/21 08/18/21 04:56 04:56 17:01 WBC MCH 27 L RDW 19.7 H Lymph % (Auto) [place] % (Auto) 9.7 H Lymph # (Auto) [place] # (Auto) Baso # (Auto) Seg Neutrophils % Seg Neutrophils # D-Dimer Sodium Chloride Carbon Dioxide BUN Creatinine Glucose POC Glucose 228 H Hemoglobin A1c 10.2 H Calcium Phosphorus Magnesium ALT Alkaline Phosphatase NT-Pro-B Natriuret Pep Albumin HDL Cholesterol TSH Salicylates Acetaminophen 08/18/21 08/19/21 08/19/21 23:58 04:37 04:37 WBC MCH 27 L RDW 19.5 H Lymph % (Auto) [place] % (Auto) Lymph # (Auto) [place] # (Auto) Baso # (Auto) Seg Neutrophils % Seg Neutrophils # D-Dimer Sodium Chloride 96.7 L Carbon Dioxide 21 L BUN 57 H Creatinine 10.2 H Glucose 151 H POC Glucose 192 H Hemoglobin A1c Calcium Phosphorus Magnesium ALT Alkaline Phosphatase NT-Pro-B Natriuret Pep Albumin HDL Cholesterol TSH Salicylates Acetaminophen 08/19/21 08/19/21 08/20/21 17:46 22:59 04:24 WBC MCH RDW Lymph % (Auto) [place] % (Auto) Lymph # (Auto) [place] # (Auto) Baso # (Auto) Seg Neutrophils % Seg Neutrophils # D-Dimer Sodium 133 L Chloride 87.9 L Carbon Dioxide 15 L BUN 33 H Creatinine 7.3 H Glucose 365 H POC Glucose 217 H 282 H Hemoglobin A1c Calcium Phosphorus 6.50 H Magnesium ALT Alkaline Phosphatase NT-Pro-B Natriuret Pep Albumin HDL Cholesterol TSH Salicylates Acetaminophen 08/20/21 08/20/21 08/20/21 06:07 07:51 15:37 WBC MCH RDW Lymph % (Auto) [place] % (Auto) Lymph # (Auto) [place] # (Auto) Baso # (Auto) Seg Neutrophils % Seg Neutrophils # D-Dimer Sodium Chloride Carbon Dioxide BUN Creatinine Glucose POC Glucose 398 H 308 H 247 H Hemoglobin A1c Calcium Phosphorus Magnesium ALT Alkaline Phosphatase NT-Pro-B Natriuret Pep Albumin HDL Cholesterol TSH Salicylates Acetaminophen 08/20/21 08/21/21 08/21/21 23:22 04:45 05:07 WBC MCH RDW Lymph % (Auto) [place] % (Auto) Lymph # (Auto) [place] # (Auto) Baso # (Auto) Seg Neutrophils % Seg Neutrophils # D-Dimer Sodium 134 L Chloride 92.9 L Carbon Dioxide BUN 48 H Creatinine 8.0 H Glucose 389 H POC Glucose 316 H 407 H Hemoglobin A1c Calcium 10.6 H Phosphorus Magnesium ALT Alkaline Phosphatase NT-Pro-B Natriuret Pep Albumin HDL Cholesterol TSH Salicylates Acetaminophen 08/21/21 08/21/21 08/21/21 11:37 15:52 23:44 WBC MCH RDW Lymph % (Auto) [place] % (Auto) Lymph # (Auto) [place] # (Auto) Baso # (Auto) Seg Neutrophils % Seg Neutrophils # D-Dimer Sodium Chloride Carbon Dioxide BUN Creatinine Glucose POC Glucose 244 H 325 H 221 H Hemoglobin A1c Calcium Phosphorus Magnesium ALT Alkaline Phosphatase NT-Pro-B Natriuret Pep Albumin HDL Cholesterol TSH Salicylates Acetaminophen 08/22/21 08/22/21 08/23/21 06:06 12:27 00:37 WBC MCH RDW Lymph % (Auto) [place] % (Auto) Lymph # (Auto) [place] # (Auto) Baso # (Auto) Seg Neutrophils % Seg Neutrophils # D-Dimer Sodium Chloride Carbon Dioxide BUN Creatinine Glucose POC Glucose 224 H 247 H 341 H Hemoglobin A1c Calcium Phosphorus Magnesium ALT Alkaline Phosphatase NT-Pro-B Natriuret Pep Albumin HDL Cholesterol TSH Salicylates Acetaminophen 08/23/21 08/23/21 08/23/21 04:20 05:37 11:56 WBC MCH RDW Lymph % (Auto) [place] % (Auto) Lymph # (Auto) [place] # (Auto) Baso # (Auto) Seg Neutrophils % Seg Neutrophils # D-Dimer Sodium Chloride 94.4 L Carbon Dioxide BUN 49 H Creatinine 7.7 H Glucose 201 H POC Glucose 210 H 162 H Hemoglobin A1c Calcium 10.9 H Phosphorus Magnesium ALT Alkaline Phosphatase NT-Pro-B Natriuret Pep Albumin HDL Cholesterol TSH Salicylates Acetaminophen 08/23/21 08/23/21 08/23/21 17:45 22:58 22:59 WBC 12.2 H MCH 26 L RDW 20.3 H Lymph % (Auto) [place] % (Auto) Lymph # (Auto) [place] # (Auto) Baso # (Auto) Seg Neutrophils % Seg Neutrophils # D-Dimer Sodium Chloride Carbon Dioxide BUN Creatinine Glucose POC Glucose 211 H 218 H Hemoglobin A1c Calcium Phosphorus Magnesium ALT Alkaline Phosphatase NT-Pro-B Natriuret Pep Albumin HDL Cholesterol TSH Salicylates Acetaminophen 08/23/21 08/24/21 08/24/21 22:59 04:23 04:23 WBC 15.4 H MCH 27 L RDW 19.8 H Lymph % (Auto) [place] % (Auto) 13.0 H Lymph # (Auto) [place] # (Auto) 2.0 H Baso # (Auto) 0.2 H Seg Neutrophils % Seg Neutrophils # 9.8 H D-Dimer Sodium 136 L Chloride 93.0 L Carbon Dioxide BUN 73 H Creatinine 8.7 H 9.2 H Glucose 145 H POC Glucose Hemoglobin A1c Calcium 10.7 H Phosphorus 6.30 H Magnesium 2.70 H ALT 6 L Alkaline Phosphatase 157 H NT-Pro-B Natriuret Pep Albumin 3.7 L HDL Cholesterol TSH Salicylates Acetaminophen 08/24/21 08/24/21 08/24/21 05:09 11:20 18:28 WBC MCH RDW Lymph % (Auto) [place] % (Auto) Lymph # (Auto) [place] # (Auto) Baso # (Auto) Seg Neutrophils % Seg Neutrophils # D-Dimer Sodium Chloride Carbon Dioxide BUN Creatinine Glucose POC Glucose 155 H 110 H 182 H Hemoglobin A1c Calcium Phosphorus Magnesium ALT Alkaline Phosphatase NT-Pro-B Natriuret Pep Albumin HDL Cholesterol TSH Salicylates Acetaminophen 08/25/21 08/25/21 08/25/21 00:15 04:44 11:28 WBC 11.3 H MCH 27 L RDW 20.4 H Lymph % (Auto) [place] % (Auto) Lymph # (Auto) [place] # (Auto) Baso # (Auto) Seg Neutrophils % Seg Neutrophils # D-Dimer Sodium Chloride Carbon Dioxide BUN Creatinine Glucose POC Glucose 247 H 189 H Hemoglobin A1c Calcium Phosphorus Magnesium ALT Alkaline Phosphatase NT-Pro-B Natriuret Pep Albumin HDL Cholesterol TSH Salicylates Acetaminophen Allied health notes reviewed: nursing
--- NOTE | 2021-08-25 15:27 | Event Note ---
Date: 08/25/21 Planned on doing a declot today however secondary to staffing issues in [facility] this will be done tomorrow.
--- NOTE | 2021-08-25 16:25 | Progress Note ---
Assessment and Plan ESRD - HD in am via Rt arm AVF if successful thrombectomy in am HTN - Adjust meds for better control HyperCalcemia - Low Ca bath on HD HD Access - Awaiting thrombectomy Rt arm AVG not done today for logistic reason. Hopefully in am Subjective Date of service: 08/25/21 Principal diagnosis: Possible Sepsis; DKA; AMS; h/o CVA left hemiparesis; ESRD on Dialysis; HTN Interval history: No new complaint Objective - Vital Signs Vital signs: Vital Signs - 12hr 08/25/21 08/25/21 08/25/21 04:54 07:50 11:29 Temperature 98.7 F 97.8 F 98.9 F Pulse Rate 69 74 78 Respiratory 16 22 20 Rate Blood Pressure 162/86 154/82 Blood Pressure 182/86 [Right] O2 Sat by Pulse 98 98 99 Oximetry - General Appearance General appearance: other (Awake & responsive) EENT: PERRL Neck: no JVD Respiratory: Present: Other (Good air entry) Cardiology: regular, S1S2 Gastrointestinal: other (Soft) Neurologic: alert and oriented x3 - Lab 08/25/21 04:44 08/24/21 04:23 Most recent lab results Calcium 10.7 mg/dL (8.4-10.2) H 08/24/21 04:23 Phosphorus 6.30 mg/dL (2.5-4.5) H 08/24/21 04:23 Magnesium 2.70 mg/dL (1.7-2.3) H 08/24/21 04:23 Medications & Allergies - Medications Allergies/Adverse Reactions: Allergies vancomycin Adverse Reaction (Verified 04/02/13 10:16) Hives Home Medications: Home Medications Medication Instructions Recorded Confirmed Last Taken Type Hydralazine HCl [hydrALAZINE] 100 mg PO BID 04/02/13 08/17/21 04/02/13 08:00 History Aspirin/Dipyridamole [Aggrenox] 1 cap PO BID #60 capsule 04/10/13 08/17/21 Unknown Rx Cinacalcet [Sensipar] 60 mg PO QDAY 08/17/21 08/17/21 Unknown History Citalopram [celeXA] 20 mg PO QDAY 08/17/21 08/17/21 Unknown History Ergocalciferol [Vitamin D2] 1 cap PO QWEEK 08/17/21 08/17/21 Unknown History Gabapentin [Neurontin] 100 mg PO Q8HR 08/17/21 08/17/21 Unknown History Insulin Glargine,Hum.rec.anlog 55 unit SQ BID 08/17/21 08/17/21 Unknown History [Lantus Solostar] Promethazine [Phenergan] 25 mg PO Q6HR PRN 08/17/21 08/17/21 Unknown History Sevelamer Carbonate [Renvela] 800 mg PO TIDWM 08/17/21 08/17/21 Unknown History amLODIPine [Norvasc] 10 mg PO DAILY 08/17/21 08/17/21 Unknown History carvediloL [Coreg] 25 mg PO BID 08/17/21 08/17/21 Unknown History cloNIDine [Catapres] 0.2 mg PO BID 08/17/21 08/17/21 Unknown History Active Medications: Generic Name Dose Route Start Last Admin Trade Name Freq PRN Reason Stop Dose Admin Acetaminophen 650 mg 08/17/21 07:50 08/22/21 10:29 Acetaminophen 325 Mg Tab PO 650 mg Q6H PRN Administration Pain, Mild (1-3) Acetaminophen 650 mg 08/17/21 08:17 08/17/21 14:49 Acetaminophen 650 Mg Rect Supp DE 650 mg Q4H PRN Administration Pain, Mild (1-3) Amlodipine Besylate 10 mg 08/22/21 11:00 08/25/21 09:50 Amlodipine 10 Mg Tab PO 10 mg QDAY HAM Administration Aspirin 325 mg 08/22/21 10:00 08/25/21 09:50 Aspirin 325 Mg Tab FEEDTUBE 325 mg QDAY HAM Administration Citalopram Hydrobromide 20 mg 08/22/21 11:00 08/25/21 09:50 Citalopram 20 Mg Tab PO 20 mg QDAY HAM Administration Clonidine HCl 0.2 mg 08/22/21 11:00 08/25/21 09:50 Clonidine 0.2 Mg Tab PO 0.2 mg Q12HR HAM Administration Dextrose 50 ml 08/17/21 23:37 Dextrose 50% In Water (25gm) 50 Ml Syringe IV Q30MIN PRN Hypoglycemia Protocol Duloxetine HCl 30 mg 08/21/21 10:00 08/23/21 17:08 Duloxetine 30 Mg Cap PO Not Given QDAY HAM Famotidine 20 mg 08/20/21 10:00 08/25/21 09:50 Famotidine 20 Mg Tab FEEDTUBE 20 mg QDAY HAM Administration Haloperidol Lactate 5 mg 08/19/21 12:00 08/19/21 16:14 Haloperidol Lactate 5 Mg/1 Ml Inj IV 5 mg Q6H PRN Administration Agitation Heparin Sodium (Porcine) 5,000 unit 08/17/21 06:00 08/25/21 05:20 Heparin 5,000 Unit/1 Ml Vial SUB-Q 5,000 unit Q8HR HAM Administration Heparin Sodium (Porcine) 3,000 unit 08/17/21 07:41 Heparin 10,000 Units/10 Ml Vial IV KATI PRN hemodialysis Hydralazine HCl 100 mg 08/17/21 09:00 08/25/21 09:50 Hydralazine 100 Mg Tab PO 100 mg TID HAM Administration Hydralazine HCl 10 mg 08/17/21 07:56 08/25/21 05:19 Hydralazine 20 Mg/1 Ml Inj IV 10 mg Q4HR PRN Administration Hypertension Hydromorphone HCl 0.25 mg 08/17/21 07:50 08/25/21 09:51 Hydromorphone 0.5 Mg/0.5 Ml Inj IV 0.25 mg Q4H PRN Administration Pain, Moderate (4-6) Sodium Chloride 100 mls @ 999 mls/hr 08/18/21 10:08 Nacl 0.9% IV KATI PRN Hypotension Insulin Glargine 25 units 08/21/21 10:19 08/24/21 23:30 Insulin Glargine 100 Units/Ml SUB-Q Not Given QHS [facility] Insulin Human Lispro 0 unit 08/18/21 00:00 08/25/21 07:33 Insulin Lispro 100 Unit/Ml SUB-Q Not Given Q6HR [facility] Protocol Levetiracetam 500 mg 08/20/21 10:00 08/25/21 09:50 Levetiracetam 500 Mg Tab PO 500 mg DAILY [facility] Administration Levothyroxine Sodium 125 mcg 08/22/21 06:00 08/25/21 05:20 Levothyroxine 125 Mcg Tab PO Not Given QAM@0600 [facility] Losartan Potassium 50 mg 08/17/21 10:00 08/25/21 09:50 Losartan 50 Mg Tab PO 50 mg QDAY [facility] Administration Magnesium Hydroxide 30 ml 08/17/21 04:09 08/23/21 23:56 Magnesium Hydroxide (Mom) Oral Liqd Udc PO 30 ml Q4H PRN Administration Constipation Metoprolol Tartrate 100 mg 08/20/21 11:00 08/25/21 09:50 Metoprolol Tartrate 100 Mg Tab PO 100 mg BID [facility] Administration Ondansetron HCl 4 mg 08/17/21 04:09 Ondansetron 4 Mg/2 Ml Inj IV Q8H PRN Nausea And Vomiting Sodium Chloride 10 ml 08/17/21 10:00 08/25/21 09:51 Sodium Chloride 0.9% 10 Ml Flush Syringe IV 10 ml BID [facility] Administration Sodium Chloride 10 ml 08/17/21 04:09 08/19/21 02:59 Sodium Chloride 0.9% 10 Ml Flush Syringe IV 10 ml PRN PRN Administration LINE FLUSH
--- NOTE | 2021-08-25 19:57 | Progress Note ---
Assessment and Plan Assessment and plan: Assessment and plan; #RUE AV fistula Clotted; Vascular evaluated the patient, possible vascular procedure today --THROMBOSED RIGHT ARM AV LOOP GRAFT WITH END-STAGE RENAL DISEASE. Vascular/IR evaluated the patient and patient had vascular procedure s/p vascular surgery/ thrombectomy of right arm AV loop graft. If successfully use of dialysis graft, then can remove Vas-Cath. #DKA (Diabetic Ketoacidosis) - Presented with elevated BG and anion gap metabolic acidosis - S/p DKA protocol - Hgb A1C 10.2 - Transitioned to SubQ insulin overnight - Continue SSI and BG Q6hrs since NPO - Lantus Qhs - Monitor and replace electrolytes as needed - Avoid Hypoglycemia #Possible Sepsis - High fevers this am, VSS, WBCs wnr - HD patient with AV-fistula, and h/o intermediate designer permacath which was removed a week ago - Blood cultures with NGTD - ID on consult, appreciated recommendations - Continue current IV abx per ID - Continue to F/U on B.cultures - Daily CBC monitor #End Stage renal Disease(ESRD) on HD - Nephrology on consult, appreciated recommendation - RUE AV-Fistula clotted, Temporary Vascath inserted - Continue HD per Nephro - Strict intake and output, patient is anuric - Avoid nephrotoxic medications; Renally dose medications - Monitor and replace electrolytes as needed - Vascular Surgery consulted for AVF eval and treat #Acute Metabolic Encephalopathy #H/o CVA (cerebral infarction) with left-sided deficits - Multifactorial, DKA vs azotemia vs infectious process - Awake and tracking, not following commands - CT head noted with mo acute abnormality - S/p DKA protocol, HD per Nephro, and on IV abx - MRI brain noted - Neurology consulted, appreciated recommendations - c/f seizure, Keppra initiated per Neuro - PRN Haldolo for agitation - Fall and safety precaution - Aspiration precaution - Frequent reorientation - Avoid benzodiazepine to reduce the possibility of delirium - Maintenance of sleep-wake cycle - PT/OT/Speech ordered #HTN (Hypertension) - Hypertensive this am, patient unable to take PO meds due to alerted mentation - PO antihypertensives held - PRN Hydralazine and Labetalol for SBP greater than 160 - Continue blood pressure monitor per protocol #Elevated D-Dimer #H/o DVT - BLE doppler showed no evidence for acute DVT in either lower extremity. 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 - Per patient's mother, patient has been off coumadin for a couple of years - Continue Heparin SubQ - Patient might benefit from PO AC at discharge, awaiting Vascular surgery recommendations #Hypothyroidism - Resume home synthroid #Dysphagia - Patient failed speech eval due to mental status - Plan to insert DHT and initiate enteral nutrition - Nutrition Consulted for TF management #GI/ DVT Prophylaxis - PPI- Pepcid - Heparin SubQ - SCDs to bilateral lower extremities while in bed #Advance care planning - Disease education data, care plan, diagnoses, and prognosis were discussed with patient's mother-Angely Roman # . Patient is full code. Patient family knowledges understanding and agreement with care plan. Closely monitor the patient and adjust management as needed Plan of care reviewed with the patient and her nurse Drill Operator Pneumatic recommendations noted and appreciated Continue current management Brief history and daily hospital course: 41 year-old female patient with known past medical history of CVA, DVT, HTM, ESRD on HD(MWF), and type 2 diabetes mellitus admitted for DKA Managed in ICU stabilize the blood sugars later transferred to the floor, patient is evaluated and followed by nephrology, vascular infectious diseases and water filter cleaner. 08/17: Patient seen and examined at the bedside. Patient remains and obtunded, only arousable with stimuli. CT head noted with no acute abnormality. Neurology consulted. On 2L NC and able to protect her airway. Patient remains on insulin gtt per DKA protocol, BG is improving and anion gap most likely due to ESRD. Plan for HD today per Nephro, possible transition to subQ insulin post HD treatment. Patient is also febrile this am, VSS. Orders placed for blood cultures, empiric IV abx was initiated and ID was consulted. 08/18: Stable on RA this am. Awake and tracking, but not following commands. MRI brain pending, Neurology is also following. Transitioned to subQ insulin o vernight, patient remains NPO due to mental status. PT/OT/Speech ordered. Patient RUE fistula clotted, Temp. Vascath inserted for HD. Vascular Surgery consulted for AVF eval and treat. BLE doppler noted. Per patient mother patient has not been on coumadin for a couple years, she was only on ASA. Patient might benefit from PO AC at discharge. Continue VTE proph, Heparin subq for now. 08/19: With left-side neglect. Awake and following commands on the right side only, but patient remains nonverbal. MRI brain and Neurology recs noted. C/f seizure now on Keppra per Neuro, EEG pending. Patient remains NPO, failed speech swallow due to mental status. Will insert DHT and initiate enteral nutrition. Continue PRN antihypertensives for now and resume PO antihypertensive therapy once DHT is placed. PRN Haldol added for agitation. D/w CCM patient is stable for transfer to Telemetry. 08/20: EEG today is with slowing 4-5 hz and triphasic waves mostly related to ESRD. Patient initiated on Keppra since yesterday. Pending 2D echocardiogram report. Patient appears to be more oriented and alert today. Continue to follow clinically, PT eval. BP noted to be elevated, initiated on home dose of clonidine and Norvasc. Continue to follow. 08/21: Blood glucose this morning above 400, increase Lantus dose, clinically remains unchanged, continue AED and follow clinically. Wait for PT recommendation. 08/22: Patient appears more tachypneic today with diminished breath sound bilaterally, will get a stat chest x-ray. Discontinued antibiotic today we will monitor off antibiotics. Continue to adjust BP medications follow clinically. 08/24/2021;s/p thrombectomy of right arm AV loop graft 08/25:Vascular planning declotting/ thrombectomy today However due to scheduling and staffing had to reschedule it for tomorrow Disposition; follow clinically, follow consultants recommendationS discharge when stable and cleared by all the consultants History Interval history: I have seen and examined the patient at the bedside Patient's chart and medications reviewed Patient is n.p.o. status for vascular procedure today Which was rescheduled for tomorrow due to staffing/scheduling issues Vital signs reviewed Hospitalist Physical - Constitutional Vitals: Temp Pulse Resp BP Pulse Ox 99.2 F 84 22 178/86 100 08/25/21 16:43 08/25/21 16:43 08/25/21 16:43 08/25/21 16:43 08/25/21 16:43 General appearance: Present: no acute distress, well-nourished, other (Does not respond, nonverbal, randomly moves) - EENT Eyes: Present: PERRL, EOM intact - Neck Neck: Present: supple, normal ROM - Respiratory Respiratory effort: normal Respiratory: bilateral: diminished, negative: rales, rhonchi, wheezing - Cardiovascular Rhythm: regular Heart Sounds: Present: S1 & S2 - Extremities Extremities: no ischemia, No edema - Abdominal General gastrointestinal: soft, non-tender, non-distended, normal bowel sounds - Integumentary Integumentary: Present: clear, warm - Psychiatric Psychiatric: appropriate mood/affect, cooperative - Neurologic Neurologic: moves all extremities Results - Labs CBC & Chem 7: 08/25/21 04:44 08/24/21 04:23 Labs: Laboratory Last Values WBC 11.3 K/mm3 (4.5-11.0) H 08/25/21 04:44 RBC 4.21 M/mm3 (3.65-5.03) 08/25/21 04:44 Hgb 11.4 gm/dl (10.1-14.3) 08/25/21 04:44 Hct 35.9 % (30.3-42.9) 08/25/21 04:44 MCV 85 fl (79-97) 08/25/21 04:44 MCH 27 pg (28-32) L 08/25/21 04:44 MCHC 32 % (30-34) 08/25/21 04:44 RDW 20.4 % (13.2-15.2) H 08/25/21 04:44 Plt Count 184 K/mm3 (140-440) 08/25/21 04:44 Lymph % (Auto) 20.5 % (13.4-35.0) 08/24/21 04:23 [place]ley % (Auto) 13.0 % (0.0-7.3) H 08/24/21 04:23 Eos % (Auto) 1.3 % (0.0-4.3) 08/24/21 04:23 Baso % (Auto) 1.5 % (0.0-1.8) 08/24/21 04:23 Lymph # (Auto) 3.2 K/mm3 (1.2-5.4) 08/24/21 04:23 Donley # (Auto) 2.0 K/mm3 (0.0-0.8) H 08/24/21 04:23 Eos # (Auto) 0.2 K/mm3 (0.0-0.4) 08/24/21 04:23 Baso # (Auto) 0.2 K/mm3 (0.0-0.1) H 08/24/21 04:23 Seg Neutrophils % 63.7 % (40.0-70.0) 08/24/21 04:23 Seg Neutrophils # 9.8 K/mm3 (1.8-7.7) H 08/24/21 04:23 PT 14.0 Sec. (12.2-14.9) 08/23/21 22:59 INR 0.97 (0.87-1.13) 08/23/21 22:59 APTT 27.9 Sec. (24.2-36.6) 08/23/21 22:59 D-Dimer 2695.37 ng/mlDDU (0-234) H 08/17/21 14:40 Sodium 136 mmol/L (137-145) L 08/24/21 04:23 Potassium 4.3 mmol/L (3.6-5.0) 08/24/21 04:23 Chloride 93.0 mmol/L (98-107) L 08/24/21 04:23 Carbon Dioxide 25 mmol/L (22-30) 08/24/21 04:23 Anion Gap 22 mmol/L 08/24/21 04:23 BUN 73 mg/dL (7-17) H 08/24/21 04:23 Creatinine 9.2 mg/dL (0.6-1.2) H 08/24/21 04:23 Estimated GFR 6 ml/min 08/24/21 04:23 BUN/Creatinine Ratio 8 % 08/24/21 04:23 Glucose 145 mg/dL (65-100) H 08/24/21 04:23 POC Glucose 169 mg/dL (70-105) H 08/25/21 16:42 Hemoglobin A1c 10.2 % (4-6) H 08/18/21 04:56 Lactic Acid 1.70 mmol/L (0.7-2.0) 08/17/21 02:07 Calcium 10.7 mg/dL (8.4-10.2) H 08/24/21 04:23 Phosphorus 6.30 mg/dL (2.5-4.5) H 08/24/21 04:23 Magnesium 2.70 mg/dL (1.7-2.3) H 08/24/21 04:23 Total Bilirubin 0.30 mg/dL (0.1-1.2) 08/24/21 04:23 AST 26 units/L (5-40) 08/24/21 04:23 ALT 6 units/L (7-56) L 08/24/21 04:23 Alkaline Phosphatase 157 units/L (35-129) H 08/24/21 04:23 NT-Pro-B Natriuret Pep 68568 pg/mL (0-450) H 08/17/21 02:07 Total Protein 7.6 g/dL (6.3-8.2) 08/24/21 04:23 Albumin 3.7 g/dL (3.9-5) L 08/24/21 04:23 Albumin/Globulin Ratio 0.9 % 08/24/21 04:23 Triglycerides 128 mg/dL (2-149) 08/17/21 14:40 Cholesterol 128 mg/dL (50-199) 08/17/21 14:40 LDL Cholesterol Direct 69 mg/dL (50-130) 08/17/21 14:40 HDL Cholesterol 30 mg/dL (40-59) L 08/17/21 14:40 Cholesterol/HDL Ratio 4.26 % 08/17/21 14:40 TSH 5.080 mlU/mL (0.270-4.200) H 08/17/21 02:07 Salicylates < 0.3 mg/dL (2.8-20.0) L 08/17/21 02:07 Acetaminophen 5.0 ug/mL (10.0-30.0) L 08/17/21 02:07 Plasma/Serum Alcohol < 0.01 % (0-0.07) 08/17/21 02:07 SARS-CoV-2 (PCR) Negative (Negative) 08/17/21 09:12 Hepatitis A IgM Ab Non-reactive (NonReactive) 08/17/21 14:40 Hep Bs Antigen Non-reactive (Negative) 08/17/21 14:40 Hep B Core IgM Ab Non-reactive (NonReactive) 08/17/21 14:40 Hepatitis C Antibody Non-reactive (NonReactive) 08/17/21 14:40 Blood Type O POSITIVE 08/17/21 17:43 Antibody Screen Negative 08/17/21 17:43 Tomas/IV: Voiding Method Incontinent Active Medications - Current Medications Current Medications: Generic Name Dose Route Start Last Admin Trade Name Freq PRN Reason Stop Dose Admin Acetaminophen 650 mg 08/17/21 07:50 08/22/21 10:29 Acetaminophen 325 Mg Tab PO 650 mg Q6H PRN Administration Pain, Mild (1-3) Acetaminophen 650 mg 08/17/21 08:17 08/17/21 14:49 Acetaminophen 650 Mg Rect Supp MI 650 mg Q4H PRN Administration Pain, Mild (1-3) Amlodipine Besylate 10 mg 08/22/21 11:00 08/25/21 09:50 Amlodipine 10 Mg Tab PO 10 mg QDAY HAM Administration Aspirin 325 mg 08/22/21 10:00 08/25/21 09:50 Aspirin 325 Mg Tab FEEDTUBE 325 mg QDAY HAM Administration Citalopram Hydrobromide 20 mg 08/22/21 11:00 08/25/21 09:50 Citalopram 20 Mg Tab PO 20 mg QDAY HAM Administration Clonidine HCl 0.2 mg 08/22/21 11:00 08/25/21 09:50 Clonidine 0.2 Mg Tab PO 0.2 mg Q12HR HAM Administration Dextrose 50 ml 08/17/21 23:37 Dextrose 50% In Water (25gm) 50 Ml Syringe IV Q30MIN PRN Hypoglycemia Protocol Duloxetine HCl 30 mg 08/21/21 10:00 08/23/21 17:08 Duloxetine 30 Mg Cap PO Not Given QDAY HAM Famotidine 20 mg 08/20/21 10:00 08/25/21 09:50 Famotidine 20 Mg Tab FEEDTUBE 20 mg QDAY HAM Administration Haloperidol Lactate 5 mg 08/19/21 12:00 08/19/21 16:14 Haloperidol Lactate 5 Mg/1 Ml Inj IV 5 mg Q6H PRN Administration Agitation Heparin Sodium (Porcine) 5,000 unit 08/17/21 06:00 08/25/21 14:30 Heparin 5,000 Unit/1 Ml Vial SUB-Q 5,000 unit Q8HR HAM Administration Heparin Sodium (Porcine) 3,000 unit 08/17/21 07:41 Heparin 10,000 Units/10 Ml Vial IV KATI PRN hemodialysis Hydralazine HCl 100 mg 08/17/21 09:00 08/25/21 14:30 Hydralazine 100 Mg Tab PO 100 mg TID HAM Administration Hydralazine HCl 10 mg 08/17/21 07:56 08/25/21 05:19 Hydralazine 20 Mg/1 Ml Inj IV 10 mg Q4HR PRN Administration Hypertension Hydromorphone HCl 0.25 mg 08/17/21 07:50 08/25/21 17:22 Hydromorphone 0.5 Mg/0.5 Ml Inj IV 0.25 mg Q4H PRN Administration Pain, Moderate (4-6) Sodium Chloride 100 mls @ 999 mls/hr 08/18/21 10:08 Nacl 0.9% IV KATI PRN Hypotension Insulin Glargine 25 units 08/21/21 10:19 08/24/21 23:30 Insulin Glargine 100 Units/Ml SUB-Q Not Given QHS [facility] Insulin Human Lispro 0 unit 08/18/21 00:00 08/25/21 12:28 Insulin Lispro 100 Unit/Ml SUB-Q 2 unit Q6HR HAM Administration Protocol Levetiracetam 500 mg 08/20/21 10:00 08/25/21 09:50 Levetiracetam 500 Mg Tab PO 500 mg DAILY [facility] Administration Levothyroxine Sodium 125 mcg 08/22/21 06:00 08/25/21 05:20 Levothyroxine 125 Mcg Tab PO Not Given QAM@0600 [facility] Losartan Potassium 50 mg 08/17/21 10:00 08/25/21 09:50 Losartan 50 Mg Tab PO 50 mg QDAY HAM Administration Magnesium Hydroxide 30 ml 08/17/21 04:09 08/23/21 23:56 Magnesium Hydroxide (Mom) Oral Liqd Udc PO 30 ml Q4H PRN Administration Constipation Metoprolol Tartrate 100 mg 08/20/21 11:00 08/25/21 09:50 Metoprolol Tartrate 100 Mg Tab PO 100 mg BID HAM Administration Ondansetron HCl 4 mg 08/17/21 04:09 Ondansetron 4 Mg/2 Ml Inj IV Q8H PRN Nausea And Vomiting Sodium Chloride 10 ml 08/17/21 10:00 08/25/21 09:51 Sodium Chloride 0.9% 10 Ml Flush Syringe IV 10 ml BID HAM Administration Sodium Chloride 10 ml 08/17/21 04:09 08/19/21 02:59 Sodium Chloride 0.9% 10 Ml Flush Syringe IV 10 ml PRN PRN Administration LINE FLUSH Nutrition/Malnutrition Assess - Dietary Evaluation Nutrition/Malnutrition Findings: Nutrition Notes Start: 08/17/21 12:51 Freq: Status: Active Protocol: Document 08/24/21 15:40 GABRIEL (Rec: 08/24/21 16:03 GABRIEL [id number]) Nutrition Notes Initial or Follow up Brief Note Current Diagnosis CKD (stage V CKD),Diabetes, Sepsis,Hypertension,Stroke Other Pertinent Diagnosis ESRD+HD/Fistula Malfunction, Metabolic Encephalopathy & Acidosis, DKA... Current Diet TF-Nepro @ 40 ml/hr (since L 08/24). Height 5 ft 8 in Weight 104.3 kg [place] Body Weight (kg) 63.63 BMI 34.9 Weight change and time frame 0.02 Kg body weight loss change reported in 2 days Weight Status Obese Subjective/Other Information RD consult for routine F/U on TF tolerance/continuation. TF was discontinued due to procedure, but resumed and TF continues as prescribed, according to RN notes. RN note on 08/24/21 13:07: Doubhoff tube in correct place , all the due medications given. Tube feedings re- started. Pt is on Room Air, O2 saturation @ 98%, according to Physical Assessment History notes. Percent of energy/protein needs met: Prescribed TF-Nepro w/ CARBSTEADY @ 40 ml/hr provides for energy/protein needs (1, 728 Kcal/78 g) during LOS, 104 % Kcal; 77% AA. #1 Nutrition Diagnosis Inadequate oral intake Diagnosis Progress(for reassessment Continues documentation) Is patient on ventilator? No Is Patient Ambulatory and/or Out of Bed No REE-([facility]-confined to bed) 2098.680 Kcal/Kg value to use for calculation 16 Approximate Energy Requirements Using 1669 kcal/Kg Calculation Used for Recommendations Kcal/kg Additional Notes Protein: >1.2 g/Kg AdjBW; >101 g/day. Fluids: 1 ml/Kcal, or as per MD. Nutrition Intervention Nutrition Support: Resume TF-Nepro w/CARBSTEADY @ 40 ml/hr. Flush: 150 ml water Q 4 hr, or as per MD. Kcal 1,728 Protein (gm) 78 Carbohydrates (gm) 155 Fat (gm) 92 Fluid (mL) 698 Fiber (gm) 12 % RDI: 104% Kcal; 77% AA. Goal #1 Provide at least 75% of energy /protein needs through Enteral Feeding during LOS. Goal #2 Maintain body weight within +/ -3% of admission body weight during LOS. Follow-Up By: 08/26/21 Additional Comments Continue monitoring TF tolerance, WIRE FRAME LAMPSH[employer] MAKER evaluation, and BM.
[2021-08-25] MEDS: INSULIN GLARGINE 100 UNITS/ML SUB-Q SCH (22:40)
[2021-08-26] MEDS: INSULIN LISPRO 100 UNIT/ML SUB-Q SCH ×5 (00:05→22:21)
[2021-08-26] MEDS: HYDROmorphone 0.5 MG/0.5 ML INJ IV PRN ×3 (00:57→21:21)
[2021-08-26] MEDS: HEPARIN 5,000 UNIT/1 ML VIAL SUB-Q SCH ×3 (05:50→21:28)
[2021-08-26] MEDS: LEVOTHYROXINE 125 MCG TAB PO SCH (05:51)
--- NOTE | 2021-08-26 10:52 | Progress Note ---
Assessment and Plan Assessment and plan: #Right upper extremity AV graft thrombosis #End Stage Renal Disease requiring hemodialysis -plan for AVF declotting today via IR/Vascular surgery -s/p vascular surgery/ thrombectomy of right arm AV loop graft. -currently using temporary vas cath as access, can be removed once AVF functioning -continue HD per Nephro -avoid nephrotoxic medications; Renally dose medications #DKA (Diabetic Ketoacidosis)-resolved #Type II diabetes, insulin dependent -s/p insulin gtt -Hgb A1C 10.2% -continue lantus 25 Uqhs, SSI and BG Q6hrs since NPO -goal glucose 140-180 while inpatient #Possible Sepsis r/o -patient afebrile, WBC normalizing -Blood cultures with NGTD x 5days -s/p IV abx, none needed due to no infectious process found -ID on consulted, signed off #Acute Metabolic Encephalopathy-improving #H/o CVA (cerebral infarction) with left-sided deficits -Multifactorial, DKA vs azotemia vs infectious process -Awake and tracking and following commands this morning -CT head and MRI brain noted with no acute abnormality -Neurology consulted, appreciated recommendations -c/f seizure, continue Keppra -PRN Haldol for agitation -Fall and safety precaution -Aspiration precaution -Frequent reorientation -Avoid benzodiazepine to reduce the possibility of delirium -Maintenance of sleep-wake cycle -PT/OT/Speech ordered #Hypertension -PO antihypertensives held due to AMS -Speech therapy re-evaluation ordered -PRN Hydralazine and Labetalol for SBP greater than 160 #Elevated D-Dimer #H/o DVT -BLE doppler showed no evidence for acute DVT in either lower extremity. 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 -Per patient's mother, patient has been off coumadin for a couple of years -Continue Heparin SubQ -low suspicion for PE, will order V/Q scan if return of fever, dyspnea -Patient might benefit from PO AC at discharge, awaiting Vascular surgery recommendations #Hypothyroidism -continue synthroid #Dysphagia -Patient failed speech eval due to mental status -continue TF for now, Nutrition following -Speech re-evaluation due to improvement in mental status #GI/ DVT Prophylaxis -PPI- Pepcid -heparin SubQ -SCDs to bilateral lower extremities while in bed History Interval history: No acute events overnight. Patient alert to self and responds to commands. She denies complaints of pain at this time. Hospitalist Physical - Physical exam Narrative exam: GENERAL: Well-developed well-nourished. In no acute distress. HEENT: NG tube in place and clamped. NECK: Supple. CHEST/LUNGS: CTAB on room air HEART/CARDIOVASCULAR: RRR. No murmur, rubs or gallops appreciated. ABDOMEN: +BS. NT/ND. SKIN: No rashes noted. NEURO: No focal motor deficit. Follows all commands. MUSCULOSKELETAL: No joint effusion EXTREMITIES: Right upper extremity aVF. No cyanosis, clubbing or edema. PSYCH: Cooperative. - Constitutional Vitals: Temp Pulse Resp BP Pulse Ox 98.1 F 81 18 176/82 98 08/26/21 07:47 08/26/21 07:47 08/26/21 08:14 08/26/21 07:47 08/26/21 08:14 General appearance: Present: no acute distress, well-nourished, other (Does not respond, nonverbal, randomly moves) Results - Labs CBC & Chem 7: 08/25/21 04:44 08/26/21 05:22 Labs: Laboratory Last Values WBC 11.3 K/mm3 (4.5-11.0) H 08/25/21 04:44 RBC 4.21 M/mm3 (3.65-5.03) 08/25/21 04:44 Hgb 11.4 gm/dl (10.1-14.3) 08/25/21 04:44 Hct 35.9 % (30.3-42.9) 08/25/21 04:44 MCV 85 fl (79-97) 08/25/21 04:44 MCH 27 pg (28-32) L 08/25/21 04:44 MCHC 32 % (30-34) 08/25/21 04:44 RDW 20.4 % (13.2-15.2) H 08/25/21 04:44 Plt Count 184 K/mm3 (140-440) 08/25/21 04:44 Lymph % (Auto) 20.5 % (13.4-35.0) 08/24/21 04:23 [place] % (Auto) 13.0 % (0.0-7.3) H 08/24/21 04:23 Eos % (Auto) 1.3 % (0.0-4.3) 08/24/21 04:23 Baso % (Auto) 1.5 % (0.0-1.8) 08/24/21 04:23 Lymph # (Auto) 3.2 K/mm3 (1.2-5.4) 08/24/21 04:23 [place] # (Auto) 2.0 K/mm3 (0.0-0.8) H 08/24/21 04:23 Eos # (Auto) 0.2 K/mm3 (0.0-0.4) 08/24/21 04:23 Baso # (Auto) 0.2 K/mm3 (0.0-0.1) H 08/24/21 04:23 Seg Neutrophils % 63.7 % (40.0-70.0) 08/24/21 04:23 Seg Neutrophils # 9.8 K/mm3 (1.8-7.7) H 08/24/21 04:23 PT 14.0 Sec. (12.2-14.9) 08/23/21 22:59 INR 0.97 (0.87-1.13) 08/23/21 22:59 APTT 27.9 Sec. (24.2-36.6) 08/23/21 22:59 D-Dimer 2695.37 ng/mlDDU (0-234) H 08/17/21 14:40 Sodium 136 mmol/L (137-145) L 08/24/21 04:23 Potassium 4.3 mmol/L (3.6-5.0) 08/24/21 04:23 Chloride 93.0 mmol/L (98-107) L 08/24/21 04:23 Carbon Dioxide 25 mmol/L (22-30) 08/24/21 04:23 Anion Gap 22 mmol/L 08/24/21 04:23 BUN 73 mg/dL (7-17) H 08/24/21 04:23 Creatinine 10.0 mg/dL (0.6-1.2) H 08/26/21 05:22 Estimated GFR 5 ml/min 08/26/21 05:22 BUN/Creatinine Ratio 8 % 08/24/21 04:23 Glucose 145 mg/dL (65-100) H 08/24/21 04:23 POC Glucose 191 mg/dL (70-105) H 08/26/21 06:12 Hemoglobin A1c 10.2 % (4-6) H 08/18/21 04:56 Lactic Acid 1.70 mmol/L (0.7-2.0) 08/17/21 02:07 Calcium 10.7 mg/dL (8.4-10.2) H 08/24/21 04:23 Phosphorus 6.30 mg/dL (2.5-4.5) H 08/24/21 04:23 Magnesium 2.70 mg/dL (1.7-2.3) H 08/24/21 04:23 Total Bilirubin 0.30 mg/dL (0.1-1.2) 08/24/21 04:23 AST 26 units/L (5-40) 08/24/21 04:23 ALT 6 units/L (7-56) L 08/24/21 04:23 Alkaline Phosphatase 157 units/L (35-129) H 08/24/21 04:23 NT-Pro-B Natriuret Pep 09161 pg/mL (0-450) H 08/17/21 02:07 Total Protein 7.6 g/dL (6.3-8.2) 08/24/21 04:23 Albumin 3.7 g/dL (3.9-5) L 08/24/21 04:23 Albumin/Globulin Ratio 0.9 % 08/24/21 04:23 Triglycerides 128 mg/dL (2-149) 08/17/21 14:40 Cholesterol 128 mg/dL (50-199) 08/17/21 14:40 LDL Cholesterol Direct 69 mg/dL (50-130) 08/17/21 14:40 HDL Cholesterol 30 mg/dL (40-59) L 08/17/21 14:40 Cholesterol/HDL Ratio 4.26 % 08/17/21 14:40 TSH 5.080 mlU/mL (0.270-4.200) H 08/17/21 02:07 Salicylates < 0.3 mg/dL (2.8-20.0) L 08/17/21 02:07 Acetaminophen 5.0 ug/mL (10.0-30.0) L 08/17/21 02:07 Plasma/Serum Alcohol < 0.01 % (0-0.07) 08/17/21 02:07 SARS-CoV-2 (PCR) Negative (Negative) 08/17/21 09:12 Hepatitis A IgM Ab Non-reactive (NonReactive) 08/17/21 14:40 Hep Bs Antigen Non-reactive (Negative) 08/17/21 14:40 Hep B Core IgM Ab Non-reactive (NonReactive) 08/17/21 14:40 Hepatitis C Antibody Non-reactive (NonReactive) 08/17/21 14:40 Blood Type O POSITIVE 08/17/21 17:43 Antibody Screen Negative 08/17/21 17:43 Tomas/IV: Voiding Method Incontinent Active Medications - Current Medications Current Medications: Generic Name Dose Route Start Last Admin Trade Name Freq PRN Reason Stop Dose Admin Acetaminophen 650 mg 08/17/21 07:50 08/22/21 10:29 Acetaminophen 325 Mg Tab PO 650 mg Q6H PRN Administration Pain, Mild (1-3) Acetaminophen 650 mg 08/17/21 08:17 08/17/21 14:49 Acetaminophen 650 Mg Rect Supp MS 650 mg Q4H PRN Administration Pain, Mild (1-3) Amlodipine Besylate 10 mg 08/22/21 11:00 08/25/21 09:50 Amlodipine 10 Mg Tab PO 10 mg QDAY HAM Administration Aspirin 325 mg 08/22/21 10:00 08/25/21 09:50 Aspirin 325 Mg Tab FEEDTUBE 325 mg QDAY HAM Administration Citalopram Hydrobromide 20 mg 08/22/21 11:00 08/25/21 09:50 Citalopram 20 Mg Tab PO 20 mg QDAY HAM Administration Clonidine HCl 0.2 mg 08/22/21 11:00 08/25/21 22:40 Clonidine 0.2 Mg Tab PO 0.2 mg Q12HR HAM Administration Dextrose 50 ml 08/17/21 23:37 Dextrose 50% In Water (25gm) 50 Ml Syringe IV Q30MIN PRN Hypoglycemia Protocol Duloxetine HCl 30 mg 08/21/21 10:00 08/23/21 17:08 Duloxetine 30 Mg Cap PO Not Given QDAY HAM Famotidine 20 mg 08/20/21 10:00 08/25/21 09:50 Famotidine 20 Mg Tab FEEDTUBE 20 mg QDAY HAM Administration Haloperidol Lactate 5 mg 08/19/21 12:00 08/19/21 16:14 Haloperidol Lactate 5 Mg/1 Ml Inj IV 5 mg Q6H PRN Administration Agitation Heparin Sodium (Porcine) 5,000 unit 08/17/21 06:00 08/26/21 05:50 Heparin 5,000 Unit/1 Ml Vial SUB-Q 5,000 unit Q8HR HAM Administration Heparin Sodium (Porcine) 3,000 unit 08/17/21 07:41 Heparin 10,000 Units/10 Ml Vial IV KATI PRN hemodialysis Hydralazine HCl 100 mg 08/17/21 09:00 08/25/21 22:40 Hydralazine 100 Mg Tab PO 100 mg TID HAM Administration Hydralazine HCl 10 mg 08/17/21 07:56 08/25/21 05:19 Hydralazine 20 Mg/1 Ml Inj IV 10 mg Q4HR PRN Administration Hypertension Hydromorphone HCl 0.25 mg 08/17/21 07:50 08/26/21 05:50 Hydromorphone 0.5 Mg/0.5 Ml Inj IV 0.25 mg Q4H PRN Administration Pain, Moderate (4-6) Sodium Chloride 100 mls @ 999 mls/hr 08/18/21 10:08 Nacl 0.9% IV KATI PRN Hypotension Insulin Glargine 25 units 08/21/21 10:19 08/25/21 22:40 Insulin Glargine 100 Units/Ml SUB-Q Not Given QHS REPLACED BY [facility] Insulin Human Lispro 0 unit 08/18/21 00:00 08/26/21 06:27 Insulin Lispro 100 Unit/Ml SUB-Q Not Given Q6HR REPLACED BY [facility] Protocol Levetiracetam 500 mg 08/20/21 10:00 08/25/21 09:50 Levetiracetam 500 Mg Tab PO 500 mg DAILY HAM Administration Levothyroxine Sodium 125 mcg 08/22/21 06:00 08/26/21 05:51 Levothyroxine 125 Mcg Tab PO 125 mcg QAM@0600 REPLACED BY [facility] Administration Losartan Potassium 50 mg 08/17/21 10:00 08/25/21 09:50 Losartan 50 Mg Tab PO 50 mg QDAY HAM Administration Magnesium Hydroxide 30 ml 08/17/21 04:09 08/23/21 23:56 Magnesium Hydroxide (Mom) Oral Liqd Udc PO 30 ml Q4H PRN Administration Constipation Metoprolol Tartrate 100 mg 08/20/21 11:00 08/25/21 22:40 Metoprolol Tartrate 100 Mg Tab PO 100 mg BID HAM Administration Ondansetron HCl 4 mg 08/17/21 04:09 Ondansetron 4 Mg/2 Ml Inj IV Q8H PRN Nausea And Vomiting Sodium Chloride 10 ml 08/17/21 10:00 08/25/21 22:40 Sodium Chloride 0.9% 10 Ml Flush Syringe IV 10 ml BID HAM Administration Sodium Chloride 10 ml 08/17/21 04:09 08/19/21 02:59 Sodium Chloride 0.9% 10 Ml Flush Syringe IV 10 ml PRN PRN Administration LINE FLUSH Nutrition/Malnutrition Assess - Dietary Evaluation Nutrition/Malnutrition Findings: Nutrition Notes Start: 08/17/21 12:51 Freq: Status: Active Protocol: Document 08/24/21 15:40 GABRIEL (Rec: 08/24/21 16:03 GABRIEL [id number]) Nutrition Notes Initial or Follow up Brief Note Current Diagnosis CKD (stage V CKD),Diabetes, Sepsis,Hypertension,Stroke Other Pertinent Diagnosis ESRD+HD/Fistula Malfunction, Metabolic Encephalopathy & Acidosis, DKA... Current Diet TF-Nepro @ 40 ml/hr (since L 08/24). Height 5 ft 8 in Weight 104.3 kg [place] Body Weight (kg) 63.63 BMI 34.9 Weight change and time frame 0.02 Kg body weight loss change reported in 2 days Weight Status Obese Subjective/Other Information RD consult for routine F/U on TF tolerance/continuation. TF was discontinued due to procedure, but resumed and TF continues as prescribed, according to RN notes. RN note on 08/24/21 13:07: Doubhoff tube in correct place , all the due medications given. Tube feedings re- started. Pt is on Room Air, O2 saturation @ 98%, according to Physical Assessment History notes. Percent of energy/protein needs met: Prescribed TF-Nepro w/ CARBSTEADY @ 40 ml/hr provides for energy/protein needs (1, 728 Kcal/78 g) during LOS, 104 % Kcal; 77% AA. #1 Nutrition Diagnosis Inadequate oral intake Diagnosis Progress(for reassessment Continues documentation) Is patient on ventilator? No Is Patient Ambulatory and/or Out of Bed No REE-([place]um[place]-St. Jeor-confined to bed) 2098.680 Kcal/Kg value to use for calculation 16 Approximate Energy Requirements Using 1669 kcal/Kg Calculation Used for Recommendations Kcal/kg Additional Notes Protein: >1.2 g/Kg AdjBW; >101 g/day. Fluids: 1 ml/Kcal, or as per MD. Nutrition Intervention Nutrition Support: Resume TF-Nepro w/CARBSTEADY @ 40 ml/hr. Flush: 150 ml water Q 4 hr, or as per MD. Kcal 1,728 Protein (gm) 78 Carbohydrates (gm) 155 Fat (gm) 92 Fluid (mL) 698 Fiber (gm) 12 % RDI: 104% Kcal; 77% AA. Goal #1 Provide at least 75% of energy /protein needs through Enteral Feeding during LOS. Goal #2 Maintain body weight within +/ -3% of admission body weight during LOS. Follow-Up By: 08/26/21 Additional Comments Continue monitoring TF tolerance, [employer] evaluation, and BM.
--- NOTE | 2021-08-26 12:06 | Progress Note ---
Assessment and Plan ESRD - HD today via Rt arm AVF if successful thrombectomy, then may d/c Rt Femoral Vascath HTN - F/u on meds HyperCalcemia - Low Ca bath on HD HD Access - Await thrombectomy Rt arm AVG hopefully today Subjective Date of service: 08/26/21 Principal diagnosis: Possible Sepsis; DKA; AMS; h/o CVA left hemiparesis; ESRD on Dialysis; HTN Interval history: No new complaint Objective - Vital Signs Vital signs: Vital Signs - 12hr 08/26/21 08/26/21 08/26/21 03:47 03:55 07:47 Temperature 98.8 F 98.5 F 98.1 F Pulse Rate 72 65 81 Respiratory 18 16 14 Rate Blood Pressure 186/80 120/68 176/82 O2 Sat by Pulse 95 96 96 Oximetry 08/26/21 08:14 Temperature Pulse Rate Respiratory 18 Rate Blood Pressure O2 Sat by Pulse 98 Oximetry - General Appearance General appearance: other (Awake & verbally responsive) EENT: PERRL, hearing intact Neck: no JVD Respiratory: Present: Other (Good air entry) Cardiology: regular, S1S2 Gastrointestinal: normal Neurologic: alert and oriented x3 - Lab 08/25/21 04:44 08/26/21 05:22 Most recent lab results Calcium 10.7 mg/dL (8.4-10.2) H 08/24/21 04:23 Phosphorus 6.30 mg/dL (2.5-4.5) H 08/24/21 04:23 Magnesium 2.70 mg/dL (1.7-2.3) H 08/24/21 04:23 Medications & Allergies - Medications Allergies/Adverse Reactions: Allergies vancomycin Adverse Reaction (Verified 04/02/13 10:16) Hives Home Medications: Home Medications Medication Instructions Recorded Confirmed Last Taken Type Hydralazine HCl [hydrALAZINE] 100 mg PO BID 04/02/13 08/17/21 04/02/13 08:00 Hi story Aspirin/Dipyridamole [Aggrenox] 1 cap PO BID #60 capsule 04/10/13 08/17/21 Unknown Rx Cinacalcet [Sensipar] 60 mg PO QDAY 08/17/21 08/17/21 Unknown History Citalopram [celeXA] 20 mg PO QDAY 08/17/21 08/17/21 Unknown History Ergocalciferol [Vitamin D2] 1 cap PO QWEEK 08/17/21 08/17/21 Unknown History Gabapentin [Neurontin] 100 mg PO Q8HR 08/17/21 08/17/21 Unknown History Insulin Glargine,Hum.rec.anlog 55 unit SQ BID 08/17/21 08/17/21 Unknown History [Lantus Solostar] Promethazine [Phenergan] 25 mg PO Q6HR PRN 08/17/21 08/17/21 Unknown History Sevelamer Carbonate [Renvela] 800 mg PO TIDWM 08/17/21 08/17/21 Unknown History amLODIPine [Norvasc] 10 mg PO DAILY 08/17/21 08/17/21 Unknown History carvediloL [Coreg] 25 mg PO BID 08/17/21 08/17/21 Unknown History cloNIDine [Catapres] 0.2 mg PO BID 08/17/21 08/17/21 Unknown History Active Medications: Generic Name Dose Route Start Last Admin Trade Name Freq PRN Reason Stop Dose Admin Acetaminophen 650 mg 08/17/21 07:50 08/22/21 10:29 Acetaminophen 325 Mg Tab PO 650 mg Q6H PRN Administration Pain, Mild (1-3) Acetaminophen 650 mg 08/17/21 08:17 08/17/21 14:49 Acetaminophen 650 Mg Rect Supp HI 650 mg Q4H PRN Administration Pain, Mild (1-3) Amlodipine Besylate 10 mg 08/22/21 11:00 08/25/21 09:50 Amlodipine 10 Mg Tab PO 10 mg QDAY HAM Administration Aspirin 325 mg 08/22/21 10:00 08/25/21 09:50 Aspirin 325 Mg Tab FEEDTUBE 325 mg QDAY HAM Administration Citalopram Hydrobromide 20 mg 08/22/21 11:00 08/25/21 09:50 Citalopram 20 Mg Tab PO 20 mg QDAY HAM Administration Clonidine HCl 0.2 mg 08/22/21 11:00 08/25/21 22:40 Clonidine 0.2 Mg Tab PO 0.2 mg Q12HR HAM Administration Dextrose 50 ml 08/17/21 23:37 Dextrose 50% In Water (25gm) 50 Ml Syringe IV Q30MIN PRN Hypoglycemia Protocol Duloxetine HCl 30 mg 08/21/21 10:00 08/23/21 17:08 Duloxetine 30 Mg Cap PO Not Given QDAY HAM Famotidine 20 mg 08/20/21 10:00 08/25/21 09:50 Famotidine 20 Mg Tab FEEDTUBE 20 mg QDAY HAM Administration Haloperidol Lactate 5 mg 08/19/21 12:00 08/19/21 16:14 Haloperidol Lactate 5 Mg/1 Ml Inj IV 5 mg Q6H PRN Administration Agitation Heparin Sodium (Porcine) 5,000 unit 08/17/21 06:00 08/26/21 05:50 Heparin 5,000 Unit/1 Ml Vial SUB-Q 5,000 unit Q8HR HAM Administration Heparin Sodium (Porcine) 3,000 unit 08/17/21 07:41 Heparin 10,000 Units/10 Ml Vial IV KATI PRN hemodialysis Hydralazine HCl 100 mg 08/17/21 09:00 08/25/21 22:40 Hydralazine 100 Mg Tab PO 100 mg TID HAM Administration Hydralazine HCl 10 mg 08/17/21 07:56 08/25/21 05:19 Hydralazine 20 Mg/1 Ml Inj IV 10 mg Q4HR PRN Administration Hypertension Hydromorphone HCl 0.25 mg 08/17/21 07:50 08/26/21 05:50 Hydromorphone 0.5 Mg/0.5 Ml Inj IV 0.25 mg Q4H PRN Administration Pain, Moderate (4-6) Sodium Chloride 100 mls @ 999 mls/hr 08/18/21 10:08 Nacl 0.9% IV KATI PRN Hypotension Insulin Glargine 25 units 08/21/21 10:19 08/25/21 22:40 Insulin Glargine 100 Units/Ml SUB-Q Not Given QHS [facility] Insulin Human Lispro 0 unit 08/18/21 00:00 08/26/21 06:27 Insulin Lispro 100 Unit/Ml SUB-Q Not Given Q6HR [facility] Protocol Levetiracetam 500 mg 08/20/21 10:00 08/25/21 09:50 Levetiracetam 500 Mg Tab PO 500 mg DAILY HAM Administration Levothyroxine Sodium 125 mcg 08/22/21 06:00 08/26/21 05:51 Levothyroxine 125 Mcg Tab PO 125 mcg QAM@0600 HAM Administration Losartan Potassium 50 mg 08/17/21 10:00 08/25/21 09:50 Losartan 50 Mg Tab PO 50 mg QDAY HAM Administration Magnesium Hydroxide 30 ml 08/17/21 04:09 08/23/21 23:56 Magnesium Hydroxide (Mom) Oral Liqd Udc PO 30 ml Q4H PRN Administration Constipation Metoprolol Tartrate 100 mg 08/20/21 11:00 08/25/21 22:40 Metoprolol Tartrate 100 Mg Tab PO 100 mg BID HAM Administration Ondansetron HCl 4 mg 08/17/21 04:09 Ondansetron 4 Mg/2 Ml Inj IV Q8H PRN Nausea And Vomiting Sodium Chloride 10 ml 08/17/21 10:00 08/25/21 22:40 Sodium Chloride 0.9% 10 Ml Flush Syringe IV 10 ml BID HAM Administration Sodium Chloride 10 ml 08/17/21 04:09 08/19/21 02:59 Sodium Chloride 0.9% 10 Ml Flush Syringe IV 10 ml PRN PRN Administration LINE FLUSH
--- NOTE | 2021-08-26 12:43 | Progress Note ---
Assessment and Plan Possible Sepsis (high grade fevers, tachycardia, acute encephalopathy, tachypnea) DKA Acute Metabolic Encephalopathy h/o CVA with left-sided deficits End Stage renal Disease on HD HTN Hypothyroidism - for graft thrombectomy - continue enteral nutrition via dubhoff tube @ goal rate as tolerated - continue care as below otherwise; - continue keppra as AED - prn Haldol for delirium / agitation - supplemental oxygen for target O2 sats > 90% - prn bronchodilators (DG) with pulm hygiene per RT - continue HD/UF per nephrology prescription for toxin and volume clearance - continue to avoid nephrotoxins, renally dose all medications - continue mobility protocols to prevent pressure ulcers - PT/OT as tolerated - Wound care per RN/WCT - continue accuchecks with glycemic control per SSI for target blood glucose < 180 mg/dL - tobacco abstinence counseled at the bedside - home oxygen evaluation at discharge - GI & VTE prophylaxis - Flu & pneumovax per protocol - Pulmonary out patient follow up for PFTs and optimization of respiratory status - continue other care per attending / other consultants - prn analgesia per pain score COVID SPECIFIC INTERVENTIONS - COVID-19 PCR negative ... re-evaluate in am & prn Subjective Date of service: 08/26/21 Principal diagnosis: Possible Sepsis; DKA; AMS; h/o CVA left hemiparesis; ESRD on Dialysis; HTN Interval history: Patient is seen today for: Possible Sepsis; DKA; Acute Metabolic Encephalopathy; h/o CVA with left-sided deficits; End Stage renal Disease on HD; HTN Seen and examined at bedside; 24hour events reviewed; nursing and respiratory care staff consulted; no adverse overnight events reported to me; resting peacefully in bed; failed swallow evaluation; tolerating tube feeds; for thrombe ctomy today tentatively; alert; NAD Objective Vital Signs - 12hr 08/26/21 08/26/21 08/26/21 03:47 03:55 07:47 Temperature 98.8 F 98.5 F 98.1 F Pulse Rate 72 65 81 Respiratory 18 16 14 Rate Blood Pressure 186/80 120/68 176/82 O2 Sat by Pulse 95 96 96 Oximetry 08/26/21 08:14 Temperature Pulse Rate Respiratory 18 Rate Blood Pressure O2 Sat by Pulse 98 Oximetry Constitutional: no acute distress, alert Eyes: non-icteric ENT: oropharynx moist Neck: supple, no lymphadenopathy, no JVD, other (large circumference) Effort: mildly labored Ascultation: Bilateral: clear, diminished breath sounds Percussion: Bilateral: not dull Cardiovascular: regular rate and rhythm, other (S1,S2) Gastrointestinal: normoactive bowel sounds, soft, non-tender, non-distended (protuberant), other (obese) Integumentary: normal Extremities: no cyanosis, no edema, pulses normal, no ischemia or petechiae Neurologic: non-focal exam (grossly), pupils equal and round, CN II-XII normal, other (weak & ? mild delirium) Psychiatric: mood appropriate, affect normal CBC and BMP: 08/27/21 06:02 08/27/21 06:02 ABG, PT/INR, D-dimer: PT/INR, D-dimer PT 14.0 Sec. (12.2-14.9) 08/23/21 22:59 INR 0.97 (0.87-1.13) 08/23/21 22:59 D-Dimer 2695.37 ng/mlDDU (0-234) H 08/17/21 14:40 Abnormal lab findings: Abnormal Labs 08/17/21 08/17/21 08/17/21 00:33 00:33 02:07 WBC MCH RDW 19.7 H Lymph % (Auto) 10.5 L Bradford % (Auto) Lymph # (Auto) 1.1 L Bradford # (Auto) Baso # (Auto) Seg Neutrophils % 79.1 H Seg Neutrophils # 8.6 H D-Dimer Sodium 132 L 134 L Chloride 87.8 L 88.4 L Carbon Dioxide 21 L BUN 61 H 61 H Creatinine 10.1 H 10.3 H Glucose 594 H* 533 H* POC Glucose Hemoglobin A1c Calcium Phosphorus Magnesium ALT < 5 L Alkaline Phosphatase 182 H NT-Pro-B Natriuret Pep 96221 H Albumin HDL Cholesterol TSH Salicylates Acetaminophen 08/17/21 08/17/21 08/17/21 02:07 02:07 02:07 WBC MCH RDW Lymph % (Auto) Bradford % (Auto) Lymph # (Auto) Bradford # (Auto) Baso # (Auto) Seg Neutrophils % Seg Neutrophils # D-Dimer Sodium Chloride Carbon Dioxide BUN Creatinine Glucose POC Glucose Hemoglobin A1c Calcium Phosphorus Magnesium ALT Alkaline Phosphatase NT-Pro-B Natriuret Pep Albumin HDL Cholesterol TSH 5.080 H Salicylates < 0.3 L Acetaminophen 5.0 L 08/17/21 08/17/21 08/17/21 04:20 04:20 05:09 WBC MCH RDW Lymph % (Auto) Bradford % (Auto) Lymph # (Auto) Bradford # (Auto) Baso # (Auto) Seg Neutrophils % Seg Neutrophils # D-Dimer Sodium 136 L Chloride 90.9 L Carbon Dioxide BUN 61 H Creatinine 10.4 H Glucose 351 H POC Glucose 298 H Hemoglobin A1c Calcium Phosphorus 6.20 H Magnesium ALT Alkaline Phosphatase NT-Pro-B Natriuret Pep Albumin HDL Cholesterol TSH Salicylates Acetaminophen 08/17/21 08/17/21 08/17/21 09:58 10:53 13:14 WBC MCH RDW Lymph % (Auto) Bradford % (Auto) Lymph # (Auto) Bradford # (Auto) Baso # (Auto) Seg Neutrophils % Seg Neutrophils # D-Dimer Sodium Chloride Carbon Dioxide BUN Creatinine Glucose POC Glucose 139 H 162 H 145 H Hemoglobin A1c Calcium Phosphorus Magnesium ALT Alkaline Phosphatase NT-Pro-B Natriuret Pep Albumin HDL Cholesterol TSH Salicylates Acetaminophen 08/17/21 08/17/21 08/17/21 14:40 14:40 14:40 WBC MCH RDW Lymph % (Auto) Bradford % (Auto) Lymph # (Auto) Bradford # (Auto) Baso # (Auto) Seg Neutrophils % Seg Neutrophils # D-Dimer 2695.37 H Sodium Chloride 96.7 L Carbon Dioxide BUN 63 H Creatinine 10.7 H Glucose 145 H POC Glucose Hemoglobin A1c Calcium Phosphorus Magnesium ALT Alkaline Phosphatase NT-Pro-B Natriuret Pep Albumin HDL Cholesterol 30 L TSH Salicylates Acetaminophen 08/17/21 08/17/21 08/17/21 14:40 16:45 17:47 WBC MCH RDW Lymph % (Auto) Bradford % (Auto) Lymph # (Auto) Bradford # (Auto) Baso # (Auto) Seg Neutrophils % Seg Neutrophils # D-Dimer Sodium Chloride 96.2 L Carbon Dioxide BUN 44 H Creatinine 7.2 H Glucose 167 H POC Glucose 136 H 165 H Hemoglobin A1c Calcium Phosphorus Magnesium ALT Alkaline Phosphatase NT-Pro-B Natriuret Pep Albumin HDL Cholesterol TSH Salicylates Acetaminophen 08/17/21 08/17/21 08/17/21 18:01 21:01 22:40 WBC MCH RDW Lymph % (Auto) Bradford % (Auto) Lymph # (Auto) Bradford # (Auto) Baso # (Auto) Seg Neutrophils % Seg Neutrophils # D-Dimer Sodium Chloride 97.1 L 96.4 L Carbon Dioxide BUN 39 H 40 H Creatinine 8.0 H 8.5 H Glucose 122 H 109 H POC Glucose 172 H Hemoglobin A1c Calcium Phosphorus Magnesium ALT Alkaline Phosphatase NT-Pro-B Natriuret Pep Albumin HDL Cholesterol TSH Salicylates Acetaminophen 08/17/21 08/18/21 08/18/21 22:40 02:13 04:56 WBC MCH 27 L RDW 19.7 H Lymph % (Auto) Bradford % (Auto) Lymph # (Auto) Bradford # (Auto) Baso # (Auto) Seg Neutrophils % Seg Neutrophils # D-Dimer Sodium Chloride 96.8 L Carbon Dioxide BUN 44 H Creatinine 9.3 H Glucose 170 H POC Glucose 190 H Hemoglobin A1c Calcium Phosphorus 6.70 H Magnesium ALT Alkaline Phosphatase NT-Pro-B Natriuret Pep Albumin HDL Cholesterol TSH Salicylates Acetaminophen 08/18/21 08/18/21 08/18/21 04:56 04:56 17:01 WBC MCH 27 L RDW 19.7 H Lymph % (Auto) Bradford % (Auto) 9.7 H Lymph # (Auto) Bradford # (Auto) Baso # (Auto) Seg Neutrophils % Seg Neutrophils # D-Dimer Sodium Chloride Carbon Dioxide BUN Creatinine Glucose POC Glucose 228 H Hemoglobin A1c 10.2 H Calcium Phosphorus Magnesium ALT Alkaline Phosphatase NT-Pro-B Natriuret Pep Albumin HDL Cholesterol TSH Salicylates Acetaminophen 08/18/21 08/19/21 08/19/21 23:58 04:37 04:37 WBC MCH 27 L RDW 19.5 H Lymph % (Auto) Bradford % (Auto) Lymph # (Auto) Bradford # (Auto) Baso # (Auto) Seg Neutrophils % Seg Neutrophils # D-Dimer Sodium Chloride 96.7 L Carbon Dioxide 21 L BUN 57 H Creatinine 10.2 H Glucose 151 H POC Glucose 192 H Hemoglobin A1c Calcium Phosphorus Magnesium ALT Alkaline Phosphatase NT-Pro-B Natriuret Pep Albumin HDL Cholesterol TSH Salicylates Acetaminophen 08/19/21 08/19/21 08/20/21 17:46 22:59 04:24 WBC MCH RDW Lymph % (Auto) Bradford % (Auto) Lymph # (Auto) Bradford # (Auto) Baso # (Auto) Seg Neutrophils % Seg Neutrophils # D-Dimer Sodium 133 L Chloride 87.9 L Carbon Dioxide 15 L BUN 33 H Creatinine 7.3 H Glucose 365 H POC Glucose 217 H 282 H Hemoglobin A1c Calcium Phosphorus 6.50 H Magnesium ALT Alkaline Phosphatase NT-Pro-B Natriuret Pep Albumin HDL Cholesterol TSH Salicylates Acetaminophen 08/20/21 08/20/21 08/20/21 06:07 07:51 15:37 WBC MCH RDW Lymph % (Auto) Bradford % (Auto) Lymph # (Auto) Bradford # (Auto) Baso # (Auto) Seg Neutrophils % Seg Neutrophils # D-Dimer Sodium Chloride Carbon Dioxide BUN Creatinine Glucose POC Glucose 398 H 308 H 247 H Hemoglobin A1c Calcium Phosphorus Magnesium ALT Alkaline Phosphatase NT-Pro-B Natriuret Pep Albumin HDL Cholesterol TSH Salicylates Acetaminophen 08/20/21 08/21/21 08/21/21 23:22 04:45 05:07 WBC MCH RDW Lymph % (Auto) Bradford % (Auto) Lymph # (Auto) Bradford # (Auto) Baso # (Auto) Seg Neutrophils % Seg Neutrophils # D-Dimer Sodium 134 L Chloride 92.9 L Carbon Dioxide BUN 48 H Creatinine 8.0 H Glucose 389 H POC Glucose 316 H 407 H Hemoglobin A1c Calcium 10.6 H Phosphorus Magnesium ALT Alkaline Phosphatase NT-Pro-B Natriuret Pep Albumin HDL Cholesterol TSH Salicylates Acetaminophen 08/21/21 08/21/21 08/21/21 11:37 15:52 23:44 WBC MCH RDW Lymph % (Auto) Bradford % (Auto) Lymph # (Auto) Bradford # (Auto) Baso # (Auto) Seg Neutrophils % Seg Neutrophils # D-Dimer Sodium Chloride Carbon Dioxide BUN Creatinine Glucose POC Glucose 244 H 325 H 221 H Hemoglobin A1c Calcium Phosphorus Magnesium ALT Alkaline Phosphatase NT-Pro-B Natriuret Pep Albumin HDL Cholesterol TSH Salicylates Acetaminophen 08/22/21 08/22/21 08/23/21 06:06 12:27 00:37 WBC MCH RDW Lymph % (Auto) Bradford % (Auto) Lymph # (Auto) Bradford # (Auto) Baso # (Auto) Seg Neutrophils % Seg Neutrophils # D-Dimer Sodium Chloride Carbon Dioxide BUN Creatinine Glucose POC Glucose 224 H 247 H 341 H Hemoglobin A1c Calcium Phosphorus Magnesium ALT Alkaline Phosphatase NT-Pro-B Natriuret Pep Albumin HDL Cholesterol TSH Salicylates Acetaminophen 08/23/21 08/23/21 08/23/21 04:20 05:37 11:56 WBC MCH RDW Lymph % (Auto) Bradford % (Auto) Lymph # (Auto) Bradford # (Auto) Baso # (Auto) Seg Neutrophils % Seg Neutrophils # D-Dimer Sodium Chloride 94.4 L Carbon Dioxide BUN 49 H Creatinine 7.7 H Glucose 201 H POC Glucose 210 H 162 H Hemoglobin A1c Calcium 10.9 H Phosphorus Magnesium ALT Alkaline Phosphatase NT-Pro-B Natriuret Pep Albumin HDL Cholesterol TSH Salicylates Acetaminophen 08/23/21 08/23/21 08/23/21 17:45 22:58 22:59 WBC 12.2 H MCH 26 L RDW 20.3 H Lymph % (Auto) Bradford % (Auto) Lymph # (Auto) Bradford # (Auto) Baso # (Auto) Seg Neutrophils % Seg Neutrophils # D-Dimer Sodium Chloride Carbon Dioxide BUN Creatinine Glucose POC Glucose 211 H 218 H Hemoglobin A1c Calcium Phosphorus Magnesium ALT Alkaline Phosphatase NT-Pro-B Natriuret Pep Albumin HDL Cholesterol TSH Salicylates Acetaminophen 08/23/21 08/24/21 08/24/21 22:59 04:23 04:23 WBC 15.4 H MCH 27 L RDW 19.8 H Lymph % (Auto) Bradford % (Auto) 13.0 H Lymph # (Auto) Bradford # (Auto) 2.0 H Baso # (Auto) 0.2 H Seg Neutrophils % Seg Neutrophils # 9.8 H D-Dimer Sodium 136 L Chloride 93.0 L Carbon Dioxide BUN 73 H Creatinine 8.7 H 9.2 H Glucose 145 H POC Glucose Hemoglobin A1c Calcium 10.7 H Phosphorus 6.30 H Magnesium 2.70 H ALT 6 L Alkaline Phosphatase 157 H NT-Pro-B Natriuret Pep Albumin 3.7 L HDL Cholesterol TSH Salicylates Acetaminophen 08/24/21 08/24/21 08/24/21 05:09 11:20 18:28 WBC MCH RDW Lymph % (Auto) Bradford % (Auto) Lymph # (Auto) Bradford # (Auto) Baso # (Auto) Seg Neutrophils % Seg Neutrophils # D-Dimer Sodium Chloride Carbon Dioxide BUN Creatinine Glucose POC Glucose 155 H 110 H 182 H Hemoglobin A1c Calcium Phosphorus Magnesium ALT Alkaline Phosphatase NT-Pro-B Natriuret Pep Albumin HDL Cholesterol TSH Salicylates Acetaminophen 08/25/21 08/25/2122 00:15 04:44 11:28 WBC 11.3 H MCH 27 L RDW 20.4 H Lymph % (Auto) Bradford % (Auto) Lymph # (Auto) Bradford # (Auto) Baso # (Auto) Seg Neutrophils % Seg Neutrophils # D-Dimer Sodium Chloride Carbon Dioxide BUN Creatinine Glucose POC Glucose 247 H 189 H Hemoglobin A1c Calcium Phosphorus Magnesium ALT Alkaline Phosphatase NT-Pro-B Natriuret Pep Albumin HDL Cholesterol TSH Salicylates Acetaminophen 08/25/21 08/25/21 08/26/21 16:42 23:29 05:22 WBC MCH RDW Lymph % (Auto) Bradford % (Auto) Lymph # (Auto) Bradford # (Auto) Baso # (Auto) Seg Neutrophils % Seg Neutrophils # D-Dimer Sodium Chloride Carbon Dioxide BUN Creatinine 10.0 H Glucose POC Glucose 169 H 213 H Hemoglobin A1c Calcium Phosphorus Magnesium ALT Alkaline Phosphatase NT-Pro-B Natriuret Pep Albumin HDL Cholesterol TSH Salicylates Acetaminophen 08/26/21 08/26/21 06:12 11:47 WBC MCH RDW Lymph % (Auto) Bradford % (Auto) Lymph # (Auto) Bradford # (Auto) Baso # (Auto) Seg Neutrophils % Seg Neutrophils # D-Dimer Sodium Chloride Carbon Dioxide BUN Creatinine Glucose POC Glucose 191 H 197 H Hemoglobin A1c Calcium Phosphorus Magnesium ALT Alkaline Phosphatase NT-Pro-B Natriuret Pep Albumin HDL Cholesterol TSH Salicylates Acetaminophen Allied health notes reviewed: nursing
[2021-08-26] MEDS ORDERED: HEPARIN 10,000 UNITS/10 ML VIAL ONE (14:08)
[2021-08-26] MEDS ORDERED: SODIUM CHLORIDE 0.9% 250ML 250 ML ONE (14:13)
[2021-08-26] MEDS: HEPARIN/NS 5000 UNIT/500ML 1,000 ML IR ONE ×2 (14:20→15:00)
[2021-08-26] MEDS ORDERED: fentaNYL 100 MCG/2 ML INJ ONE (14:49)
[2021-08-26] MEDS ORDERED: MIDAZOLAM 2 MG/2 ML INJ ONE (14:49)
[2021-08-26] MEDS: LIDOCAINE (2%) 20 MG/1 ML VIAL 50 ML MDV INFILTRATI ONE ×2 (14:56→15:09)
[2021-08-26] MEDS: WATER FOR INJ Sterile (PF) 10 ML ONE ×2 (15:00→15:15)
[2021-08-26] MEDS ORDERED: ALTEPLASE 2 MG INJ ONE (15:11)
--- NOTE | 2021-08-26 15:39 | Operative Report ---
Operative Report Operative Report: Exam: Ultrasound and fluoroscopic guided right upper arm loop graft thrombectomy and angioplasty Clinical indication: Patient with a history of thrombosed right upper arm loop graft Date: 08/26/2021 Procedure: Following an explanation of the risk, benefits and alternatives; written informed consent was obtained. The patient was brought to the angiographic suite and placed in supine position on the examination table. Initial ultrasound evaluation of the patient's loop graft demonstrating thrombus throughout the visualized portion of the graft. The right upper arm was prepped and draped in the usual sterile fashion. 1% lidocaine was used for anesthesia. Under ultrasound guidance, the graft was cannulated directed towards the arterial anastomosis using a 7 cm 21-gauge needle. A 0.018 guidewire was advanced under fluoroscopy. The needle was removed and using trocar technique 7 Azeri sheath advanced over the guidewire. The guidewire and trocar were removed. Of her vertebral catheter was then advanced through the guidewire. Together the guidewire and catheter were manipulated through the arterial anastomosis. Contrast was injected. This demonstrates thrombus extending from the arterial anastomosis to the sheath insertion site. A 5 mm Viky balloon was then advanced over the guidewire through the arterial anastomosis. The arterial plug was swept free. 3 passes were made. At this point, the graft demonstrated pulsatility to the level of the sheath insertion site. Under ultrasound guidance, access was obtained towards the venous anastomosis using a similar technique as above and an additional 7 Azeri sheath directed towards the venous anastomosis. A 0.035 guidewire was advanced centrally. A vertebral catheter was then advanced over the guidewire. Contrast was injected to document appropriate positioning within the central veins. The central veins are patent. Thrombus extends from the venous anastomosis to the sheath insertion site. Following heparinization, 4 mg of tPA were then infused through the thrombus. First, over the venous wire, a 5 mm Viky balloon was used to sweep the fresh thrombus followed by maceration of any residual thrombus using an 8 mm x 40 mm balloon. There is mild stenosis at the venous anastomosis. At this point, palpable thrill was present throughout the graft. Contrast was gently injected through the sheath directed towards the arterial anastomosis and allowed to flow backwards towards the venous anastomosis. There is brisk flow with only some residual thrombus near the venous anastomosis which was treated using an 8 mm x 40 mm balloon. The vertebral catheter was then advanced over the guidewire through the arterial anastomosis. Contrast was injected. This demonstrates preserved inline flow down the arm as well as a widely patent arterial anastomosis and AV graft. Palpable thrill is present. Both sheaths were then removed and hemostasis achieved using 4-0 Vicryl suture and Dermabond. The patient tolerated the procedure well. There were no immediate postprocedure complications. Conscious sedation was performed under the guidance of radiologic nursing. Continuous cardiopulmonary monitoring was utilized. Impression: 1) Right upper arm loop graft venography demonstrating thrombus from the arterial anastomosis to the venous anastomosis. Additionally, there is mild stenosis at the venous anastomosis. 2) Mechanical and pharmacological thrombectomy using tPA and balloon maceration. 3) Treatment of the mild venous anastomosis stenosis using venoplasty as described. 4) A palpable thrill was present at the conclusion of the case with brisk flow from the arterial anastomosis to the central veins.
--- NOTE | 2021-08-26 15:41 | Event Note ---
Date: 08/26/21 Thrombectomy performed. Graft is widely patent with excellent flow. Following cannulation of the graft, Vas-Cath can be removed in dialysis. Patient may be discharged home from a vascular standpoint following Vas-Cath removal and per nephrology
[2021-08-26] MEDS ORDERED: LIPASE 10,500/PROTEASE 25,000/AMYLASE 43,750 (UNITS) DR CAP FEEDTUBE PRN (16:00)
[2021-08-26] MEDS ORDERED: SODIUM BICARBONATE 325 MG TAB FEEDTUBE PRN (16:00)
[2021-08-26] MEDS ORDERED: SIMPLE SYRUP 15 ML FEEDTUBE PRN ×2 (16:00)
[2021-08-26] MEDS: cloNIDine 0.2 MG TAB PO SCH ×2 (16:47→21:28)
[2021-08-26] MEDS: ASPIRIN 325 MG TAB FEEDTUBE SCH (16:47)
[2021-08-26] MEDS: amLODIPine 10 MG TAB PO SCH (16:47)
[2021-08-26] MEDS: hydrALAZINE 100 MG TAB PO SCH ×2 (16:47→21:28)
[2021-08-26] MEDS: LOSARTAN 50 MG TAB PO SCH (16:47)
[2021-08-26] MEDS: CITALOPRAM 20 MG TAB PO SCH (16:47)
[2021-08-26] MEDS: levETIRAcetam 500 MG TAB PO SCH (16:48)
[2021-08-26] MEDS: FAMOTIDINE 20 MG TAB FEEDTUBE SCH (16:48)
[2021-08-26] MEDS: METOPROLOL TARTRATE 100 MG TAB PO SCH ×2 (16:48→21:28)
[2021-08-26] MEDS: ACETAMINOPHEN 325 MG TAB PO PRN (22:26)
[2021-08-27] MEDS: INSULIN LISPRO 100 UNIT/ML SUB-Q SCH ×4 (00:10→18:56)
[2021-08-27] MEDS: INSULIN GLARGINE 100 UNITS/ML SUB-Q SCH (00:10)
[2021-08-27] MEDS: HYDROmorphone 0.5 MG/0.5 ML INJ IV PRN ×4 (03:52→20:18)
[2021-08-27] MEDS: HEPARIN 5,000 UNIT/1 ML VIAL SUB-Q SCH ×3 (05:12→21:00)
[2021-08-27] MEDS: LEVOTHYROXINE 125 MCG TAB PO SCH (05:13)
[2021-08-27 06:14] LABS: Basophils # (Auto) 0.1 K/mm3 (0.0-0.1); Basophils % (Auto) 0.8 % (0.0-1.8); Eosinophils # (Auto) 0.2 K/mm3 (0.0-0.4); Eosinophils % (Auto) 1.9 % (0.0-4.3); Hematocrit 33.5 % (30.3-42.9); Hemoglobin 10.7 gm/dl (10.1-14.3); Lymphocytes # (Auto) 1.9 K/mm3 (1.2-5.4); Lymphocytes % (Auto) 20.3 % (13.4-35.0); Mean Corpuscular HGB Conc 32 % (30-34); Mean Corpuscular Volume 85 fl (79-97); Monocytes # (Auto) 1.4 K/mm3 (0.0-0.8); Monocytes % (Auto) 14.2 % (0.0-7.3); Platelet Count 175 K/mm3 (140-440); Red Blood Count 3.94 M/mm3 (3.65-5.03)
[2021-08-27 06:21] LABS: Red Cell Distribution Width 20.1 % (13.2-15.2)
[2021-08-27 06:43] LABS: Albumin 3.6 g/dL (3.9-5); Blood Urea Nitrogen 56 mg/dL (7-17); Hemolysis Index 17
[2021-08-27 06:51] LABS: Alanine Aminotransferase < 5 units/L (7-56); BUN/Creatinine Ratio 9
--- NOTE | 2021-08-27 08:04 | Progress Note ---
Assessment and Plan Assessment and plan: #Right upper extremity AV graft thrombosis #End Stage Renal Disease requiring hemodialysis -s/p AVF declotting 08/26 via IR/Vascular surgery -s/p vascular surgery/ thrombectomy of right arm AV loop graft. -temporary vasc cath removed 08/26 -continue HD per Nephro -avoid nephrotoxic medications; Renally dose medications #DKA (Diabetic Ketoacidosis)-resolved #Type II diabetes, insulin dependent -s/p insulin gtt -Hgb A1C 10.2% -continue lantus 25 Uqhs, SSI and BG Q6hrs since NPO -goal glucose 140-180 while inpatient #Possible Sepsis r/o -patient afebrile, WBC normalizing -Blood cultures with NGTD x 5days -s/p IV abx, none needed due to no infectious process found -ID on consulted, signed off #Acute Metabolic Encephalopathy-improving #H/o CVA (cerebral infarction) with left-sided deficits -Multifactorial, DKA vs azotemia vs infectious process -Awake and tracking and following commands this morning -CT head and MRI brain noted with no acute abnormality -Neurology consulted, appreciated recommendations -c/f seizure, continue Keppra -PRN Haldol for agitation -Fall and safety precaution -Aspiration precaution -Frequent reorientation -Avoid benzodiazepine to reduce the possibility of delirium -Maintenance of sleep-wake cycle -PT/OT/Speech ordered #Hypertension -PO antihypertensives held due to AMS -Speech therapy re-evaluation ordered -PRN Hydralazine and Labetalol for SBP greater than 160 #Elevated D-Dimer #H/o DVT -BLE doppler showed no evidence for acute DVT in either lower extremity. 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 -Per patient's mother, patient has been off coumadin for a couple of years -Continue Heparin SubQ -low suspicion for PE, will order V/Q scan if return of fever, dyspnea -Patient might benefit from PO AC at discharge, awaiting Vascular surgery recommendations #Hypothyroidism -continue synthroid #Dysphagia -Patient failed speech eval due to mental status -continue TF for now, Nutrition following -Speech re-evaluation due to improvement in mental status #GI/ DVT Prophylaxis -PPI- Pepcid -heparin SubQ -SCDs to bilateral lower extremities while in bed History Interval history: No acute events overnight. Patient alert and oriented x4 today. Patient reports abdominal pain, but has no other complaints at this time. Hospitalist Physical - Physical exam Narrative exam: GENERAL: Well-developed well-nourished. In no acute distress. HEENT: NG tube in place and clamped. NECK: Supple. CHEST/LUNGS: CTAB on room air HEART/CARDIOVASCULAR: RRR. No murmur, rubs or gallops appreciated. ABDOMEN: +BS. NT/ND. SKIN: No rashes noted. NEURO: No focal motor deficit. Follows all commands. MUSCULOSKELETAL: No joint effusion EXTREMITIES: Right upper extremity aVF. No cyanosis, clubbing or edema. PSYCH: Cooperative. - Constitutional Vitals: Temp Pulse Resp BP Pulse Ox 99.1 F 89 17 147/71 96 08/27/21 04:41 08/27/21 04:41 08/27/21 04:41 08/27/21 04:41 08/27/21 04:41 General appearance: Present: no acute distress, well-nourished, other (Does not respond, nonverbal, randomly moves) Results - Labs CBC & Chem 7: 08/27/21 06:02 08/27/21 06:02 Labs: Laboratory Last Values WBC 9.6 K/mm3 (4.5-11.0) 08/27/21 06:02 RBC 3.94 M/mm3 (3.65-5.03) 08/27/21 06:02 Hgb 10.7 gm/dl (10.1-14.3) 08/27/21 06:02 Hct 33.5 % (30.3-42.9) 08/27/21 06:02 MCV 85 fl (79-97) 08/27/21 06:02 MCH 27 pg (28-32) L 08/27/21 06:02 MCHC 32 % (30-34) 08/27/21 06:02 RDW 20.1 % (13.2-15.2) H 08/27/21 06:02 Plt Count 175 K/mm3 (140-440) 08/27/21 06:02 Lymph % (Auto) 20.3 % (13.4-35.0) 08/27/21 06:02 [place] % (Auto) 14.2 % (0.0-7.3) H 08/27/21 06:02 Eos % (Auto) 1.9 % (0.0-4.3) 08/27/21 06:02 Baso % (Auto) 0.8 % (0.0-1.8) 08/27/21 06:02 Lymph # (Auto) 1.9 K/mm3 (1.2-5.4) 08/27/21 06:02 [place] # (Auto) 1.4 K/mm3 (0.0-0.8) H 08/27/21 06:02 Eos # (Auto) 0.2 K/mm3 (0.0-0.4) 08/27/21 06:02 Baso # (Auto) 0.1 K/mm3 (0.0-0.1) 08/27/21 06:02 Seg Neutrophils % 62.8 % (40.0-70.0) 08/27/21 06:02 Seg Neutrophils # 6.0 K/mm3 (1.8-7.7) 08/27/21 06:02 PT 14.0 Sec. (12.2-14.9) 08/23/21 22:59 INR 0.97 (0.87-1.13) 08/23/21 22:59 APTT 27.9 Sec. (24.2-36.6) 08/23/21 22:59 D-Dimer 2695.37 ng/mlDDU (0-234) H 08/17/21 14:40 Sodium 134 mmol/L (137-145) L 08/27/21 06:02 Potassium 4.2 mmol/L (3.6-5.0) 08/27/21 06:02 Chloride 93.8 mmol/L (98-107) L 08/27/21 06:02 Carbon Dioxide 24 mmol/L (22-30) 08/27/21 06:02 Anion Gap 20 mmol/L 08/27/21 06:02 BUN 56 mg/dL (7-17) H 08/27/21 06:02 Creatinine 6.4 mg/dL (0.6-1.2) H 08/27/21 06:02 Estimated GFR 9 ml/min 08/27/21 06:02 BUN/Creatinine Ratio 9 % 08/27/21 06:02 Glucose 253 mg/dL (65-100) H 08/27/21 06:02 POC Glucose 250 mg/dL (70-105) H 08/27/21 06:17 Hemoglobin A1c 10.2 % (4-6) H 08/18/21 04:56 Lactic Acid 1.70 mmol/L (0.7-2.0) 08/17/21 02:07 Calcium 10.0 mg/dL (8.4-10.2) 08/27/21 06:02 Phosphorus 6.00 mg/dL (2.5-4.5) H 08/27/21 06:02 Magnesium 2.50 mg/dL (1.7-2.3) H 08/27/21 06:02 Total Bilirubin 0.30 mg/dL (0.1-1.2) 08/27/21 06:02 AST 22 units/L (5-40) 08/27/21 06:02 ALT < 5 units/L (7-56) L 08/27/21 06:02 Alkaline Phosphatase 135 units/L (35-129) H 08/27/21 06:02 NT-Pro-B Natriuret Pep 71861 pg/mL (0-450) H 08/17/21 02:07 Total Protein 7.1 g/dL (6.3-8.2) 08/27/21 06:02 Albumin 3.6 g/dL (3.9-5) L 08/27/21 06:02 Albumin/Globulin Ratio 1.0 % 08/27/21 06:02 Triglycerides 128 mg/dL (2-149) 08/17/21 14:40 Cholesterol 128 mg/dL (50-199) 08/17/21 14:40 LDL Cholesterol Direct 69 mg/dL (50-130) 08/17/21 14:40 HDL Cholesterol 30 mg/dL (40-59) L 08/17/21 14:40 Cholesterol/HDL Ratio 4.26 % 08/17/21 14:40 TSH 5.080 mlU/mL (0.270-4.200) H 08/17/21 02:07 Salicylates < 0.3 mg/dL (2.8-20.0) L 08/17/21 02:07 Acetaminophen 5.0 ug/mL (10.0-30.0) L 08/17/21 02:07 Plasma/Serum Alcohol < 0.01 % (0-0.07) 08/17/21 02:07 SARS-CoV-2 (PCR) Negative (Negative) 08/17/21 09:12 Hepatitis A IgM Ab Non-reactive (NonReactive) 08/17/21 14:40 Hep Bs Antigen Non-reactive (Negative) 08/17/21 14:40 Hep B Core IgM Ab Non-reactive (NonReactive) 08/17/21 14:40 Hepatitis C Antibody Non-reactive (NonReactive) 08/17/21 14:40 Blood Type O POSITIVE 08/17/21 17:43 Antibody Screen Negative 08/17/21 17:43 Tomas/IV: Voiding Method Bedpan Active Medications - Current Medications Current Medications: Generic Name Dose Route Start Last Admin Trade Name Freq PRN Reason Stop Dose Admin Acetaminophen 650 mg 08/17/21 07:50 08/26/21 22:26 Acetaminophen 325 Mg Tab PO 650 mg Q6H PRN Administration Pain, Mild (1-3) Acetaminophen 650 mg 08/17/21 08:17 08/17/21 14:49 Acetaminophen 650 Mg Rect Supp MI 650 mg Q4H PRN Administration Pain, Mild (1-3) Amlodipine Besylate 10 mg 08/22/21 11:00 08/26/21 16:47 Amlodipine 10 Mg Tab PO Not Given QDAY HAM Lipase/Protease/Amylase 1 each 08/26/21 16:00 Lipase 10,500/Protease 25,000/Amylase 43,750 (Units) Dr Cap FEEDTUBE PRN PRN For Clogged Feeding Tube Aspirin 325 mg 08/22/21 10:00 08/26/21 16:47 Aspirin 325 Mg Tab FEEDTUBE Not Given QDAY HAM Citalopram Hydrobromide 20 mg 08/22/21 11:00 08/26/21 16:47 Citalopram 20 Mg Tab PO Not Given QDAY HAM Clonidine HCl 0.2 mg 08/22/21 11:00 08/26/21 21:28 Clonidine 0.2 Mg Tab PO 0.2 mg Q12HR HAM Administration Dextrose 50 ml 08/17/21 23:37 Dextrose 50% In Water (25gm) 50 Ml Syringe IV Q30MIN PRN Hypoglycemia Protocol Duloxetine HCl 30 mg 08/21/21 10:00 08/23/21 17:08 Duloxetine 30 Mg Cap PO Not Given QDAY HAM Famotidine 20 mg 08/20/21 10:00 08/26/21 16:48 Famotidine 20 Mg Tab FEEDTUBE Not Given QDAY [facility] Haloperidol Lactate 5 mg 08/19/21 12:00 08/19/21 16:14 Haloperidol Lactate 5 Mg/1 Ml Inj IV 5 mg Q6H PRN Administration Agitation Heparin Sodium (Porcine) 5,000 unit 08/17/21 06:00 08/27/21 05:12 Heparin 5,000 Unit/1 Ml Vial SUB-Q 5,000 unit Q8HR HAM Administration Heparin Sodium (Porcine) 3,000 unit 08/17/21 07:41 Heparin 10,000 Units/10 Ml Vial IV KATI PRN hemodialysis Hydralazine HCl 100 mg 08/17/21 09:00 08/26/21 21:28 Hydralazine 100 Mg Tab PO 100 mg TID HAM Administration Hydralazine HCl 10 mg 08/17/21 07:56 08/25/21 05:19 Hydralazine 20 Mg/1 Ml Inj IV 10 mg Q4HR PRN Administration Hypertension Hydromorphone HCl 0.25 mg 08/17/21 07:50 08/27/21 03:52 Hydromorphone 0.5 Mg/0.5 Ml Inj IV 0.25 mg Q4H PRN Administration Pain, Moderate (4-6) Sodium Chloride 100 mls @ 999 mls/hr 08/18/21 10:08 Nacl 0.9% IV KATI PRN Hypotension Insulin Glargine 25 units 08/21/21 10:19 08/27/21 00:10 Insulin Glargine 100 Units/Ml SUB-Q 25 units QHS HAM Administration Insulin Human Lispro 0 unit 08/18/21 00:00 08/27/21 06:28 Insulin Lispro 100 Unit/Ml SUB-Q 4 unit Q6HR HAM Administration Protocol Levetiracetam 500 mg 08/20/21 10:00 08/26/21 16:48 Levetiracetam 500 Mg Tab PO Not Given DAILY [facility] Levothyroxine Sodium 125 mcg 08/22/21 06:00 08/27/21 05:13 Levothyroxine 125 Mcg Tab PO 125 mcg QAM@0600 HAM Administration Losartan Potassium 50 mg 08/17/21 10:00 08/26/21 16:47 Losartan 50 Mg Tab PO Not Given QDAY HAM Magnesium Hydroxide 30 ml 08/17/21 04:09 08/23/21 23:56 Magnesium Hydroxide (Mom) Oral Liqd Udc PO 30 ml Q4H PRN Administration Constipation Metoprolol Tartrate 100 mg 08/20/21 11:00 08/26/21 21:28 Metoprolol Tartrate 100 Mg Tab PO 100 mg BID HAM Administration Ondansetron HCl 4 mg 08/17/21 04:09 Ondansetron 4 Mg/2 Ml Inj IV Q8H PRN Nausea And Vomiting Simple Syrup 15 ml 08/26/21 16:00 Simple Syrup 15 Ml FEEDTUBE PRN PRN Hypoglycemia Simple Syrup 30 ml 08/26/21 16:00 Simple Syrup 15 Ml FEEDTUBE PRN PRN Hypoglycemia Sodium Bicarbonate 325 mg 08/26/21 16:00 Sodium Bicarbonate 325 Mg Tab FEEDTUBE PRN PRN For Clogged Feeding Tube Sodium Chloride 10 ml 08/17/21 10:00 08/26/21 21:29 Sodium Chloride 0.9% 10 Ml Flush Syringe IV 10 ml BID HAM Administration Sodium Chloride 10 ml 08/17/21 04:09 08/19/21 02:59 Sodium Chloride 0.9% 10 Ml Flush Syringe IV 10 ml PRN PRN Administration LINE FLUSH Nutrition/Malnutrition Assess - Dietary Evaluation Nutrition/Malnutrition Findings: Nutrition Notes Start: 08/17/21 12:51 Freq: Status: Active Protocol: Document 08/26/21 14:55 LOLY (Rec: 08/26/21 14:58 [email or web address] [id number]) Nutrition Notes Initial or Follow up Reassessment Current Diagnosis CKD (stage V CKD),Diabetes, Hypertension,Stroke Other Pertinent Diagnosis RUE AV graft thrombosis, Dysphagia Current Diet NPO Labs/Tests POC Glu: 191, 197 Pertinent Medications Reviewed Height 5 ft 8 in Weight 83.1 kg [place] Body Weight (kg) 63.63 BMI 27.8 Weight change and time frame Wt change noted Weight Status Overweight Subjective/Other Information Pt NPO for pending procedure. Burn Absent Trauma Absent #1 Nutrition Diagnosis Inadequate oral intake Diagnosis Progress(for reassessment Continues documentation) Is patient on ventilator? No Is Patient Ambulatory and/or Out of Bed No REE-([place]-confined to bed) 5704.532 Calculation [facility]ations [facility] Additional Notes Pro needs >1.2g/kg:>100g/day Fluid needs 1-1.5L/day Nutrition Intervention Nutrition Support: Resume TF when medically feasible Goal #1 Restart TF to meet nutrient needs Follow-Up By: 08/29/21 Additional Comments F/U: TF restart/tolerance, wt
[2021-08-27] MEDS: hydrALAZINE 100 MG TAB PO SCH ×3 (09:57→20:18)
[2021-08-27] MEDS: CITALOPRAM 20 MG TAB PO SCH (09:57)
[2021-08-27] MEDS: ASPIRIN 325 MG TAB FEEDTUBE SCH (09:57)
[2021-08-27] MEDS: cloNIDine 0.2 MG TAB PO SCH ×2 (09:57→21:01)
[2021-08-27] MEDS: FAMOTIDINE 20 MG TAB FEEDTUBE SCH (09:57)
[2021-08-27] MEDS: LOSARTAN 50 MG TAB PO SCH (09:57)
[2021-08-27] MEDS: levETIRAcetam 500 MG TAB PO SCH (09:57)
[2021-08-27] MEDS: METOPROLOL TARTRATE 100 MG TAB PO SCH ×2 (09:58→21:01)
[2021-08-27] MEDS: amLODIPine 10 MG TAB PO SCH (09:58)
--- NOTE | 2021-08-27 13:33 | Progress Note ---
Assessment and Plan Possible Sepsis (high grade fevers, tachycardia, acute encephalopathy, tachypnea) DKA Acute Metabolic Encephalopathy h/o CVA with left-sided deficits End Stage renal Disease on HD HTN Hypothyroidism - continue enteral nutrition via dubhoff tube @ goal rate as tolerated - continue strict aspiration precautions; HOB > 40 degrees - continue care as below otherwise; - continue keppra as AED - prn Haldol for delirium / agitation - supplemental oxygen for target O2 sats > 90% - prn bronchodilators (DG) with pulm hygiene per RT - continue HD/UF per nephrology prescription for toxin and volume clearance - continue to avoid nephrotoxins, renally dose all medications - continue mobility protocols to prevent pressure ulcers - PT/OT as tolerated - Wound care per RN/WCT - continue accuchecks with glycemic control per SSI for target blood glucose < 180 mg/dL - tobacco abstinence counseled at the bedside - home oxygen evaluation at discharge - GI & VTE prophylaxis - Flu & pneumovax per protocol - Pulmonary out patient follow up for PFTs and optimization of respiratory status - continue other care per attending / other consultants - prn analgesia per pain score COVID SPECIFIC INTERVENTIONS - COVID-19 PCR negative ... re-evaluate in am & prn Subjective Date of service: 08/27/21 Principal diagnosis: Possible Sepsis; DKA; AMS; h/o CVA left hemiparesis; ESRD on Dialysis; HTN Interval history: Patient is seen today for: Possible Sepsis; DKA; Acute Metabolic Encephalopathy; h/o CVA with left-sided deficits; End Stage renal Disease on HD; HTN Seen and examined at bedside; 24hour events reviewed; nursing and respiratory care staff consulted; no adverse overnight events reported to me; resting peacefully in bed; s/p successful graft thrombectomy yesterday; remains on room air; still with mild cognitive dysfunction / delirium Objective Vital Signs - 12hr 08/27/21 08/27/21 08/27/21 04:00 04:41 08:01 Temperature 99.1 F 99.1 F Pulse Rate 92 H 89 90 Respiratory 17 18 Rate Blood Pressure 147/71 159/76 O2 Sat by Pulse 96 97 Oximetry 08/27/21 08/27/21 08/27/21 09:57 09:58 11:23 Temperature 99.4 F Pulse Rate 90 90 69 Respiratory 18 Rate Blood Pressure 159/76 159/76 113/57 O2 Sat by Pulse 100 Oximetry Constitutional: no acute distress, other (middle aged obese female with normal respiratory effort at rest) Eyes: non-icteric ENT: oropharynx moist, other (+ NGT) Neck: supple, no lymphadenopathy, no JVD, other (large circumference) Effort: mildly labored Ascultation: Bilateral: clear, diminished breath sounds Percussion: Bilateral: not dull Cardiovascular: regular rate and rhythm, other (S1,S2) Gastrointestinal: normoactive bowel sounds, soft, non-tender, non-distended (protuberant), other (obese) Integumentary: normal Extremities: no cyanosis, no edema, pulses normal, no ischemia or petechiae Neurologic: non-focal exam (grossly), pupils equal and round, CN II-XII normal, other (weak & ? mild delirium) Psychiatric: mood appropriate, affect normal CBC and BMP: 08/27/21 06:02 08/28/21 05:11 ABG, PT/INR, D-dimer: PT/INR, D-dimer PT 14.0 Sec. (12.2-14.9) 08/23/21 22:59 INR 0.97 (0.87-1.13) 08/23/21 22:59 D-Dimer 2695.37 ng/mlDDU (0-234) H 08/17/21 14:40 Abnormal lab findings: Abnormal Labs 08/17/21 08/17/21 08/17/21 00:33 00:33 02:07 WBC MCH RDW 19.7 H Lymph % (Auto) 10.5 L Pershing % (Auto) Lymph # (Auto) 1.1 L Pershing # (Auto) Baso # (Auto) Seg Neutrophils % 79.1 H Seg Neutrophils # 8.6 H D-Dimer Sodium 132 L 134 L Chloride 87.8 L 88.4 L Carbon Dioxide 21 L BUN 61 H 61 H Creatinine 10.1 H 10.3 H Glucose 594 H* 533 H* POC Glucose Hemoglobin A1c Calcium Phosphorus Magnesium ALT < 5 L Alkaline Phosphatase 182 H NT-Pro-B Natriuret Pep 54783 H Albumin HDL Cholesterol TSH Salicylates Acetaminophen 08/17/21 08/17/21 08/17/21 02:07 02:07 02:07 WBC MCH RDW Lymph % (Auto) Pershing % (Auto) Lymph # (Auto) Pershing # (Auto) Baso # (Auto) Seg Neutrophils % Seg Neutrophils # D-Dimer Sodium Chloride Carbon Dioxide BUN Creatinine Glucose POC Glucose Hemoglobin A1c Calcium Phosphorus Magnesium ALT Alkaline Phosphatase NT-Pro-B Natriuret Pep Albumin HDL Cholesterol TSH 5.080 H Salicylates < 0.3 L Acetaminophen 5.0 L 08/17/21 08/17/21 08/17/21 04:20 04:20 05:09 WBC MCH RDW Lymph % (Auto) Pershing % (Auto) Lymph # (Auto) Pershing # (Auto) Baso # (Auto) Seg Neutrophils % Seg Neutrophils # D-Dimer Sodium 136 L Chloride 90.9 L Carbon Dioxide BUN 61 H Creatinine 10.4 H Glucose 351 H POC Glucose 298 H Hemoglobin A1c Calcium Phosphorus 6.20 H Magnesium ALT Alkaline Phosphatase NT-Pro-B Natriuret Pep Albumin HDL Cholesterol TSH Salicylates Acetaminophen 08/17/21 08/17/21 08/17/21 09:58 10:53 13:14 WBC MCH RDW Lymph % (Auto) Pershing % (Auto) Lymph # (Auto) Pershing # (Auto) Baso # (Auto) Seg Neutrophils % Seg Neutrophils # D-Dimer Sodium Chloride Carbon Dioxide BUN Creatinine Glucose POC Glucose 139 H 162 H 145 H Hemoglobin A1c Calcium Phosphorus Magnesium ALT Alkaline Phosphatase NT-Pro-B Natriuret Pep Albumin HDL Cholesterol TSH Salicylates Acetaminophen 08/17/21 08/17/21 08/17/21 14:40 14:40 14:40 WBC MCH RDW Lymph % (Auto) Pershing % (Auto) Lymph # (Auto) Pershing # (Auto) Baso # (Auto) Seg Neutrophils % Seg Neutrophils # D-Dimer 2695.37 H Sodium Chloride 96.7 L Carbon Dioxide BUN 63 H Creatinine 10.7 H Glucose 145 H POC Glucose Hemoglobin A1c Calcium Phosphorus Magnesium ALT Alkaline Phosphatase NT-Pro-B Natriuret Pep Albumin HDL Cholesterol 30 L TSH Salicylates Acetaminophen 08/17/21 08/17/21 08/17/21 14:40 16:45 17:47 WBC MCH RDW Lymph % (Auto) Pershing % (Auto) Lymph # (Auto) Pershing # (Auto) Baso # (Auto) Seg Neutrophils % Seg Neutrophils # D-Dimer Sodium Chloride 96.2 L Carbon Dioxide BUN 44 H Creatinine 7.2 H Glucose 167 H POC Glucose 136 H 165 H Hemoglobin A1c Calcium Phosphorus Magnesium ALT Alkaline Phosphatase NT-Pro-B Natriuret Pep Albumin HDL Cholesterol TSH Salicylates Acetaminophen 08/17/21 08/17/21 08/17/21 18:01 21:01 22:40 WBC MCH RDW Lymph % (Auto) Pershing % (Auto) Lymph # (Auto) Pershing # (Auto) Baso # (Auto) Seg Neutrophils % Seg Neutrophils # D-Dimer Sodium Chloride 97.1 L 96.4 L Carbon Dioxide BUN 39 H 40 H Creatinine 8.0 H 8.5 H Glucose 122 H 109 H POC Glucose 172 H Hemoglobin A1c Calcium Phosphorus Magnesium ALT Alkaline Phosphatase NT-Pro-B Natriuret Pep Albumin HDL Cholesterol TSH Salicylates Acetaminophen 08/17/21 08/18/21 08/18/21 22:40 02:13 04:56 WBC MCH 27 L RDW 19.7 H Lymph % (Auto) Pershing % (Auto) Lymph # (Auto) Pershing # (Auto) Baso # (Auto) Seg Neutrophils % Seg Neutrophils # D-Dimer Sodium Chloride 96.8 L Carbon Dioxide BUN 44 H Creatinine 9.3 H Glucose 170 H POC Glucose 190 H Hemoglobin A1c Calcium Phosphorus 6.70 H Magnesium ALT Alkaline Phosphatase NT-Pro-B Natriuret Pep Albumin HDL Cholesterol TSH Salicylates Acetaminophen 08/18/21 08/18/21 08/18/21 04:56 04:56 17:01 WBC MCH 27 L RDW 19.7 H Lymph % (Auto) Pershing % (Auto) 9.7 H Lymph # (Auto) Pershing # (Auto) Baso # (Auto) Seg Neutrophils % Seg Neutrophils # D-Dimer Sodium Chloride Carbon Dioxide BUN Creatinine Glucose POC Glucose 228 H Hemoglobin A1c 10.2 H Calcium Phosphorus Magnesium ALT Alkaline Phosphatase NT-Pro-B Natriuret Pep Albumin HDL Cholesterol TSH Salicylates Acetaminophen 08/18/21 08/19/21 08/19/21 23:58 04:37 04:37 WBC MCH 27 L RDW 19.5 H Lymph % (Auto) Pershing % (Auto) Lymph # (Auto) Pershing # (Auto) Baso # (Auto) Seg Neutrophils % Seg Neutrophils # D-Dimer Sodium Chloride 96.7 L Carbon Dioxide 21 L BUN 57 H Creatinine 10.2 H Glucose 151 H POC Glucose 192 H Hemoglobin A1c Calcium Phosphorus Magnesium ALT Alkaline Phosphatase NT-Pro-B Natriuret Pep Albumin HDL Cholesterol TSH Salicylates Acetaminophen 08/19/21 08/19/21 08/20/21 17:46 22:59 04:24 WBC MCH RDW Lymph % (Auto) Pershing % (Auto) Lymph # (Auto) Pershing # (Auto) Baso # (Auto) Seg Neutrophils % Seg Neutrophils # D-Dimer Sodium 133 L Chloride 87.9 L Carbon Dioxide 15 L BUN 33 H Creatinine 7.3 H Glucose 365 H POC Glucose 217 H 282 H Hemoglobin A1c Calcium Phosphorus 6.50 H Magnesium ALT Alkaline Phosphatase NT-Pro-B Natriuret Pep Albumin HDL Cholesterol TSH Salicylates Acetaminophen 08/20/21 08/20/21 08/20/21 06:07 07:51 15:37 WBC MCH RDW Lymph % (Auto) Pershing % (Auto) Lymph # (Auto) Pershing # (Auto) Baso # (Auto) Seg Neutrophils % Seg Neutrophils # D-Dimer Sodium Chloride Carbon Dioxide BUN Creatinine Glucose POC Glucose 398 H 308 H 247 H Hemoglobin A1c Calcium Phosphorus Magnesium ALT Alkaline Phosphatase NT-Pro-B Natriuret Pep Albumin HDL Cholesterol TSH Salicylates Acetaminophen 08/20/21 08/21/21 08/21/21 23:22 04:45 05:07 WBC MCH RDW Lymph % (Auto) Pershing % (Auto) Lymph # (Auto) Pershing # (Auto) Baso # (Auto) Seg Neutrophils % Seg Neutrophils # D-Dimer Sodium 134 L Chloride 92.9 L Carbon Dioxide BUN 48 H Creatinine 8.0 H Glucose 389 H POC Glucose 316 H 407 H Hemoglobin A1c Calcium 10.6 H Phosphorus Magnesium ALT Alkaline Phosphatase NT-Pro-B Natriuret Pep Albumin HDL Cholesterol TSH Salicylates Acetaminophen 08/21/21 08/21/21 08/21/21 11:37 15:52 23:44 WBC MCH RDW Lymph % (Auto) Pershing % (Auto) Lymph # (Auto) Pershing # (Auto) Baso # (Auto) Seg Neutrophils % Seg Neutrophils # D-Dimer Sodium Chloride Carbon Dioxide BUN Creatinine Glucose POC Glucose 244 H 325 H 221 H Hemoglobin A1c Calcium Phosphorus Magnesium ALT Alkaline Phosphatase NT-Pro-B Natriuret Pep Albumin HDL Cholesterol TSH Salicylates Acetaminophen 08/22/21 08/22/21 08/23/21 06:06 12:27 00:37 WBC MCH RDW Lymph % (Auto) Pershing % (Auto) Lymph # (Auto) Pershing # (Auto) Baso # (Auto) Seg Neutrophils % Seg Neutrophils # D-Dimer Sodium Chloride Carbon Dioxide BUN Creatinine Glucose POC Glucose 224 H 247 H 341 H Hemoglobin A1c Calcium Phosphorus Magnesium ALT Alkaline Phosphatase NT-Pro-B Natriuret Pep Albumin HDL Cholesterol TSH Salicylates Acetaminophen 08/23/21 08/23/21 08/23/21 04:20 05:37 11:56 WBC MCH RDW Lymph % (Auto) Pershing % (Auto) Lymph # (Auto) Pershing # (Auto) Baso # (Auto) Seg Neutrophils % Seg Neutrophils # D-Dimer Sodium Chloride 94.4 L Carbon Dioxide BUN 49 H Creatinine 7.7 H Glucose 201 H POC Glucose 210 H 162 H Hemoglobin A1c Calcium 10.9 H Phosphorus Magnesium ALT Alkaline Phosphatase NT-Pro-B Natriuret Pep Albumin HDL Cholesterol TSH Salicylates Acetaminophen 08/23/21 08/23/21 08/23/21 17:45 22:58 22:59 WBC 12.2 H MCH 26 L RDW 20.3 H Lymph % (Auto) Pershing % (Auto) Lymph # (Auto) Pershing # (Auto) Baso # (Auto) Seg Neutrophils % Seg Neutrophils # D-Dimer Sodium Chloride Carbon Dioxide BUN Creatinine Glucose POC Glucose 211 H 218 H Hemoglobin A1c Calcium Phosphorus Magnesium ALT Alkaline Phosphatase NT-Pro-B Natriuret Pep Albumin HDL Cholesterol TSH Salicylates Acetaminophen 08/23/21 08/24/21 08/24/21 22:59 04:23 04:23 WBC 15.4 H MCH 27 L RDW 19.8 H Lymph % (Auto) Pershing % (Auto) 13.0 H Lymph # (Auto) Pershing # (Auto) 2.0 H Baso # (Auto) 0.2 H Seg Neutrophils % Seg Neutrophils # 9.8 H D-Dimer Sodium 136 L Chloride 93.0 L Carbon Dioxide BUN 73 H Creatinine 8.7 H 9.2 H Glucose 145 H POC Glucose Hemoglobin A1c Calcium 10.7 H Phosphorus 6.30 H Magnesium 2.70 H ALT 6 L Alkaline Phosphatase 157 H NT-Pro-B Natriuret Pep Albumin 3.7 L HDL Cholesterol TSH Salicylates Acetaminophen 08/24/21 08/24/21 08/24/21 05:09 11:20 18:28 WBC MCH RDW Lymph % (Auto) Pershing % (Auto) Lymph # (Auto) Pershing # (Auto) Baso # (Auto) Seg Neutrophils % Seg Neutrophils # D-Dimer Sodium Chloride Carbon Dioxide BUN Creatinine Glucose POC Glucose 155 H 110 H 182 H Hemoglobin A1c Calcium Phosphorus Magnesium ALT Alkaline Phosphatase NT-Pro-B Natriuret Pep Albumin HDL Cholesterol TSH Salicylates Acetaminophen 08/25/21 08/25/21 08/25/21 00:15 04:44 11:28 WBC 11.3 H MCH 27 L RDW 20.4 H Lymph % (Auto) Pershing % (Auto) Lymph # (Auto) Pershing # (Auto) Baso # (Auto) Seg Neutrophils % Seg Neutrophils # D-Dimer Sodium Chloride Carbon Dioxide BUN Creatinine Glucose POC Glucose 247 H 189 H Hemoglobin A1c Calcium Phosphorus Magnesium ALT Alkaline Phosphatase NT-Pro-B Natriuret Pep Albumin HDL Cholesterol TSH Salicylates Acetaminophen 08/25/21 08/25/21 08/26/21 16:42 23:29 05:22 WBC MCH RDW Lymph % (Auto) Pershing % (Auto) Lymph # (Auto) Pershing # (Auto) Baso # (Auto) Seg Neutrophils % Seg Neutrophils # D-Dimer Sodium Chloride Carbon Dioxide BUN Creatinine 10.0 H Glucose POC Glucose 169 H 213 H Hemoglobin A1c Calcium Phosphorus Magnesium ALT Alkaline Phosphatase NT-Pro-B Natriuret Pep Albumin HDL Cholesterol TSH Salicylates Acetaminophen 08/26/21 08/26/21 08/26/21 06:12 11:47 23:33 WBC MCH RDW Lymph % (Auto) Pershing % (Auto) Lymph # (Auto) [place]hing # (Auto) Baso # (Auto) Seg Neutrophils % Seg Neutrophils # D-Dimer Sodium Chloride Carbon Dioxide BUN Creatinine Glucose POC Glucose 191 H 197 H 197 H Hemoglobin A1c Calcium Phosphorus Magnesium ALT Alkaline Phosphatase NT-Pro-B Natriuret Pep Albumin HDL Cholesterol TSH Salicylates Acetaminophen 08/27/21 08/27/21 08/27/21 06:02 06:02 06:17 WBC MCH 27 L RDW 20.1 H Lymph % (Auto) Pershing % (Auto) 14.2 H Lymph # (Auto) Pershing # (Auto) 1.4 H Baso # (Auto) Seg Neutrophils % Seg Neutrophils # D-Dimer Sodium 134 L Chloride 93.8 L Carbon Dioxide BUN 56 H Creatinine 6.4 H Glucose 253 H POC Glucose 250 H Hemoglobin A1c Calcium Phosphorus 6.00 H Magnesium 2.50 H ALT < 5 L Alkaline Phosphatase 135 H NT-Pro-B Natriuret Pep Albumin 3.6 L HDL Cholesterol TSH Salicylates Acetaminophen 08/27/21 11:21 WBC MCH RDW Lymph % (Auto) Pershing % (Auto) Lymph # (Auto) Pershing # (Auto) Baso # (Auto) Seg Neutrophils % Seg Neutrophils # D-Dimer Sodium Chloride Carbon Dioxide BUN Creatinine Glucose POC Glucose 287 H Hemoglobin A1c Calcium Phosphorus Magnesium ALT Alkaline Phosphatase NT-Pro-B Natriuret Pep Albumin HDL Cholesterol TSH Salicylates Acetaminophen Allied health notes reviewed: nursing
[2021-08-27] MEDS ORDERED: INSULIN GLARGINE 100 UNITS/ML SUB-Q SCH (18:39)
[2021-08-28] MEDS: INSULIN LISPRO 100 UNIT/ML SUB-Q SCH ×3 (00:05→13:19)
[2021-08-28] MEDS: HYDROmorphone 0.5 MG/0.5 ML INJ IV PRN ×4 (02:03→22:11)
[2021-08-28 05:46] LABS: Calcium 10.8 mg/dL (8.4-10.2)
[2021-08-28] MEDS: HEPARIN 5,000 UNIT/1 ML VIAL SUB-Q SCH ×3 (05:54→22:11)
[2021-08-28] MEDS: LEVOTHYROXINE 125 MCG TAB PO SCH ×2 (05:55→09:12)
--- NOTE | 2021-08-28 07:44 | XRay Report ---
ABDOMEN 1 VIEW(S) 08/28/2021 7:22 AM INDICATION / CLINICAL INFORMATION: Dobhoff position. COMPARISON: 08/24/2021 FINDINGS: The tip of a weighted feeding tube projects over the body of the stomach. Signer Name: Jony Greco MD Signed: 08/28/2021 7:40 AM Workstation Name: [id number]
--- NOTE | 2021-08-28 09:09 | Progress Note ---
Assessment and Plan Assessment and plan: #Right upper extremity AV graft thrombosis #End Stage Renal Disease requiring hemodialysis -s/p AVF declotting 08/26 via IR/Vascular surgery -s/p vascular surgery/ thrombectomy of right arm AV loop graft. -temporary vasc cath removed 08/26 -continue HD per Nephro -avoid nephrotoxic medications; Renally dose medications #DKA (Diabetic Ketoacidosis)-resolved #Type II diabetes, insulin dependent -s/p insulin gtt -Hgb A1C 10.2% -lantus increased to 25U BID, continue SSI and BG Q6hrs since NPO -goal glucose 140-180 while inpatient #Possible Sepsis r/o -patient afebrile, WBC normalizing -Blood cultures with NGTD x 5days -s/p IV abx, none needed due to no infectious process found -ID on consulted, signed off #Acute Metabolic Encephalopathy-improving #H/o CVA (cerebral infarction) with left-sided deficits -Multifactorial, DKA vs azotemia vs infectious process -Awake and tracking and following commands this morning -CT head and MRI brain noted with no acute abnormality -Neurology consulted, appreciated recommendations -c/f seizure, continue Keppra -PRN Haldol for agitation -Fall and safety precaution -Aspiration precaution -Frequent reorientation -Avoid benzodiazepine to reduce the possibility of delirium -Maintenance of sleep-wake cycle -PT/OT/Speech ordered #Hypertension -PO antihypertensives held due to AMS -Speech therapy re-evaluation ordered -PRN Hydralazine and Labetalol for SBP greater than 160 #Elevated D-Dimer #H/o DVT -BLE doppler showed no evidence for acute DVT in either lower extremity. 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 -Per patient's mother, patient has been off coumadin for a couple of years -Continue Heparin SubQ -low suspicion for PE, will order V/Q scan if return of fever, dyspnea -Patient might benefit from PO AC at discharge, awaiting Vascular surgery recommendations #Hypothyroidism -continue synthroid #Dysphagia -Patient failed initial speech eval due to mental status -continue TF for now, Nutrition following -failed bedside swallow evaluation -Speech re-evaluation due to improvement in mental status #GI/ DVT Prophylaxis -PPI- Pepcid -heparin SubQ -SCDs to bilateral lower extremities while in bed History Interval history: No acute events overnight. Patient alert and oriented x4 today. Patient reports continued abdominal and back pain, per nursing she requests dilaudid everytime anyone enters the room. Unremarkable abdominal examination at this time. Last bowel movement yesterday. Hospitalist Physical - Physical exam Narrative exam: GENERAL: Well-developed well-nourished. In no acute distress. HEENT: NG tube in place and clamped. NECK: Supple. CHEST/LUNGS: CTAB on room air HEART/CARDIOVASCULAR: RRR. No murmur, rubs or gallops appreciated. ABDOMEN: +BS. NT/ND. SKIN: No rashes noted. NEURO: No focal motor deficit. Follows all commands. MUSCULOSKELETAL: No joint effusion EXTREMITIES: Right upper extremity aVF. No cyanosis, clubbing or edema. PSYCH: Cooperative. - Constitutional Vitals: Temp Pulse Resp BP Pulse Ox 98.0 F 79 20 159/72 99 08/28/21 08:08 08/28/21 08:08 08/28/21 08:08 08/28/21 08:08 08/28/21 08:08 General appearance: Present: no acute distress, well-nourished, other (Does not respond, nonverbal, randomly moves) Results - Labs CBC & Chem 7: 08/27/21 06:02 08/28/21 05:11 Labs: Laboratory Last Values WBC 9.6 K/mm3 (4.5-11.0) 08/27/21 06:02 RBC 3.94 M/mm3 (3.65-5.03) 08/27/21 06:02 Hgb 10.7 gm/dl (10.1-14.3) 08/27/21 06:02 Hct 33.5 % (30.3-42.9) 08/27/21 06:02 MCV 85 fl (79-97) 08/27/21 06:02 MCH 27 pg (28-32) L 08/27/21 06:02 MCHC 32 % (30-34) 08/27/21 06:02 RDW 20.1 % (13.2-15.2) H 08/27/21 06:02 Plt Count 175 K/mm3 (140-440) 08/27/21 06:02 Lymph % (Auto) 20.3 % (13.4-35.0) 08/27/21 06:02 [place] % (Auto) 14.2 % (0.0-7.3) H 08/27/21 06:02 Eos % (Auto) 1.9 % (0.0-4.3) 08/27/21 06:02 Baso % (Auto) 0.8 % (0.0-1.8) 08/27/21 06:02 Lymph # (Auto) 1.9 K/mm3 (1.2-5.4) 08/27/21 06:02 [place] # (Auto) 1.4 K/mm3 (0.0-0.8) H 08/27/21 06:02 Eos # (Auto) 0.2 K/mm3 (0.0-0.4) 08/27/21 06:02 Baso # (Auto) 0.1 K/mm3 (0.0-0.1) 08/27/21 06:02 Seg Neutrophils % 62.8 % (40.0-70.0) 08/27/21 06:02 Seg Neutrophils # 6.0 K/mm3 (1.8-7.7) 08/27/21 06:02 PT 14.0 Sec. (12.2-14.9) 08/23/21 22:59 INR 0.97 (0.87-1.13) 08/23/21 22:59 APTT 27.9 Sec. (24.2-36.6) 08/23/21 22:59 D-Dimer 2695.37 ng/mlDDU (0-234) H 08/17/21 14:40 Sodium 134 mmol/L (137-145) L 08/28/21 05:11 Potassium 4.5 mmol/L (3.6-5.0) 08/28/21 05:11 Chloride 91.8 mmol/L (98-107) L 08/28/21 05:11 Carbon Dioxide 24 mmol/L (22-30) 08/28/21 05:11 Anion Gap 23 mmol/L 08/28/21 05:11 BUN 79 mg/dL (7-17) H 08/28/21 05:11 Creatinine 8.2 mg/dL (0.6-1.2) H 08/28/21 05:11 Estimated GFR 6 ml/min 08/28/21 05:11 BUN/Creatinine Ratio 10 % 08/28/21 05:11 Glucose 230 mg/dL (65-100) H 08/28/21 05:11 POC Glucose 225 mg/dL (70-105) H 08/28/21 05:29 Hemoglobin A1c 10.2 % (4-6) H 08/18/21 04:56 Lactic Acid 1.70 mmol/L (0.7-2.0) 08/17/21 02:07 Calcium 10.8 mg/dL (8.4-10.2) H 08/28/21 05:11 Phosphorus 6.00 mg/dL (2.5-4.5) H 08/27/21 06:02 Magnesium 2.50 mg/dL (1.7-2.3) H 08/27/21 06:02 Total Bilirubin 0.30 mg/dL (0.1-1.2) 08/27/21 06:02 AST 22 units/L (5-40) 08/27/21 06:02 ALT < 5 units/L (7-56) L 08/27/21 06:02 Alkaline Phosphatase 135 units/L (35-129) H 08/27/21 06:02 NT-Pro-B Natriuret Pep 18350 pg/mL (0-450) H 08/17/21 02:07 Total Protein 7.1 g/dL (6.3-8.2) 08/27/21 06:02 Albumin 3.6 g/dL (3.9-5) L 08/27/21 06:02 Albumin/Globulin Ratio 1.0 % 08/27/21 06:02 Triglycerides 128 mg/dL (2-149) 08/17/21 14:40 Cholesterol 128 mg/dL (50-199) 08/17/21 14:40 LDL Cholesterol Direct 69 mg/dL (50-130) 08/17/21 14:40 HDL Cholesterol 30 mg/dL (40-59) L 08/17/21 14:40 Cholesterol/HDL Ratio 4.26 % 08/17/21 14:40 TSH 5.080 mlU/mL (0.270-4.200) H 08/17/21 02:07 Salicylates < 0.3 mg/dL (2.8-20.0) L 08/17/21 02:07 Acetaminophen 5.0 ug/mL (10.0-30.0) L 08/17/21 02:07 Plasma/Serum Alcohol < 0.01 % (0-0.07) 08/17/21 02:07 SARS-CoV-2 (PCR) Negative (Negative) 08/17/21 09:12 Hepatitis A IgM Ab Non-reactive (NonReactive) 08/17/21 14:40 Hep Bs Antigen Non-reactive (Negative) 08/17/21 14:40 Hep B Core IgM Ab Non-reactive (NonReactive) 08/17/21 14:40 Hepatitis C Antibody Non-reactive (NonReactive) 08/17/21 14:40 Blood Type O POSITIVE 08/17/21 17:43 Antibody Screen Negative 08/17/21 17:43 Tomas/IV: Voiding Method Bedpan Active Medications - Current Medications Current Medications: Generic Name Dose Route Start Last Admin Trade Name Freq PRN Reason Stop Dose Admin Acetaminophen 650 mg 08/17/21 07:50 08/26/21 22:26 Acetaminophen 325 Mg Tab PO 650 mg Q6H PRN Administration Pain, Mild (1-3) Acetaminophen 650 mg 08/17/21 08:17 08/17/21 14:49 Acetaminophen 650 Mg Rect Supp [place] 650 mg Q4H PRN Administration Pain, Mild (1-3) Amlodipine Besylate 10 mg 08/22/21 11:00 08/27/21 09:58 Amlodipine 10 Mg Tab PO 10 mg QDAY HAM Administration Lipase/Protease/Amylase 1 each 08/26/21 16:00 Lipase 10,500/Protease 25,000/Amylase 43,750 (Units) Dr Lopez FEEDTUBE PRN PRN For Clogged Feeding Tube Aspirin 325 mg 08/22/21 10:00 08/27/21 09:57 Aspirin 325 Mg Tab FEEDTUBE 325 mg QDAY HAM Administration Citalopram Hydrobromide 20 mg 08/22/21 11:00 08/27/21 09:57 Citalopram 20 Mg Tab PO 20 mg QDAY HAM Administration Clonidine HCl 0.2 mg 08/22/21 11:00 08/27/21 21:01 Clonidine 0.2 Mg Tab PO 0.2 mg Q12HR HAM Administration Dextrose 50 ml 08/17/21 23:37 Dextrose 50% In Water (25gm) 50 Ml Syringe IV Q30MIN PRN Hypoglycemia Protocol Duloxetine HCl 30 mg 08/21/21 10:00 08/23/21 17:08 Duloxetine 30 Mg Cap PO Not Given QDAY HAM Famotidine 20 mg 08/20/21 10:00 08/27/21 09:57 Famotidine 20 Mg Tab FEEDTUBE 20 mg QDAY HAM Administration Haloperidol Lactate 5 mg 08/19/21 12:00 08/19/21 16:14 Haloperidol Lactate 5 Mg/1 Ml Inj IV 5 mg Q6H PRN Administration Agitation Heparin Sodium (Porcine) 5,000 unit 08/17/21 06:00 08/28/21 05:54 Heparin 5,000 Unit/1 Ml Vial SUB-Q 5,000 unit Q8HR HAM Administration Heparin Sodium (Porcine) 3,000 unit 08/17/21 07:41 Heparin 10,000 Units/10 Ml Vial IV KATI PRN hemodialysis Hydralazine HCl 100 mg 08/17/21 09:00 08/27/21 20:18 Hydralazine 100 Mg Tab PO 100 mg TID HAM Administration Hydralazine HCl 10 mg 08/17/21 07:56 08/25/21 05:19 Hydralazine 20 Mg/1 Ml Inj IV 10 mg Q4HR PRN Administration Hypertension Hydromorphone HCl 0.25 mg 08/17/21 07:50 08/28/21 09:05 Hydromorphone 0.5 Mg/0.5 Ml Inj IV 0.25 mg Q4H PRN Administration Pain, Moderate (4-6) Sodium Chloride 100 mls @ 999 mls/hr 08/18/21 10:08 Nacl 0.9% IV KATI PRN Hypotension Insulin Glargine 25 units 08/28/21 10:00 Insulin Glargine 100 Units/Ml SUB-Q BID [facility] Insulin Human Lispro 0 unit 08/18/21 00:00 08/28/21 07:31 Insulin Lispro 100 Unit/Ml SUB-Q Not Given Q6HR [facility] Protocol Levetiracetam 500 mg 08/20/21 10:00 08/27/21 09:57 Levetiracetam 500 Mg Tab PO 500 mg DAILY [facility] Administration Levothyroxine Sodium 125 mcg 08/22/21 06:00 08/28/21 05:55 Levothyroxine 125 Mcg Tab PO Not Given QAM@0600 [facility] Losartan Potassium 50 mg 08/17/21 10:00 08/27/21 09:57 Losartan 50 Mg Tab PO 50 mg QDAY HAM Administration Magnesium Hydroxide 30 ml 08/17/21 04:09 08/23/21 23:56 Magnesium Hydroxide (Mom) Oral Liqd Udc PO 30 ml Q4H PRN Administration Constipation Metoprolol Tartrate 100 mg 08/20/21 11:00 08/27/21 21:01 Metoprolol Tartrate 100 Mg Tab PO 100 mg BID HAM Administration Ondansetron HCl 4 mg 08/17/21 04:09 Ondansetron 4 Mg/2 Ml Inj IV Q8H PRN Nausea And Vomiting Simple Syrup 15 ml 08/26/21 16:00 Simple Syrup 15 Ml FEEDTUBE PRN PRN Hypoglycemia Simple Syrup 30 ml 08/26/21 16:00 Simple Syrup 15 Ml FEEDTUBE PRN PRN Hypoglycemia Sodium Bicarbonate 325 mg 08/26/21 16:00 Sodium Bicarbonate 325 Mg Tab FEEDTUBE PRN PRN For Clogged Feeding Tube Sodium Chloride 10 ml 08/17/21 10:00 08/28/21 09:05 Sodium Chloride 0.9% 10 Ml Flush Syringe IV 10 ml BID HAM Administration Sodium Chloride 10 ml 08/17/21 04:09 08/19/21 02:59 Sodium Chloride 0.9% 10 Ml Flush Syringe IV 10 ml PRN PRN Administration LINE FLUSH Nutrition/Malnutrition Assess - Dietary Evaluation Nutrition/Malnutrition Findings: Nutrition Notes Start: 08/17/21 12:51 Freq: Status: Active Protocol: Document 08/26/21 14:55 LOLY (Rec: 08/26/21 14:58 [facility] [id number]) Nutrition Notes Initial or Follow up Reassessment Current Diagnosis CKD (stage V CKD),Diabetes, Hypertension,Stroke Other Pertinent Diagnosis RUE AV graft thrombosis, Dysphagia Current Diet NPO Labs/Tests POC Glu: 191, 197 Pertinent Medications Reviewed Height 5 ft 8 in Weight 83.1 kg [place] Body Weight (kg) 63.63 BMI 27.8 Weight change and time frame Wt change noted Weight Status Overweight Subjective/Other Information Pt NPO for pending procedure. Burn Absent Trauma Absent #1 Nutrition Diagnosis Inadequate oral intake Diagnosis Progress(for reassessment Continues documentation) Is patient on ventilator? No Is Patient Ambulatory and/or Out of Bed No REE-([place]-[facility] Je[facility]-confined to bed) 1844.532 Calculation Used for Recommendations [facility] Additional Notes Pro needs >1.2g/kg:>100g/day Fluid needs 1-1.5L/day Nutrition Intervention Nutrition Support: Resume TF when medically feasible Goal #1 Restart TF to meet nutrient needs Follow-Up By: 08/29/21 Additional Comments F/U: TF restart/tolerance, wt
[2021-08-28] MEDS: METOPROLOL TARTRATE 100 MG TAB PO SCH ×2 (09:11→22:10)
[2021-08-28] MEDS: hydrALAZINE 100 MG TAB PO SCH ×3 (09:12→22:10)
[2021-08-28] MEDS: amLODIPine 10 MG TAB PO SCH (09:12)
[2021-08-28] MEDS: CITALOPRAM 20 MG TAB PO SCH (09:13)
[2021-08-28] MEDS: LOSARTAN 50 MG TAB PO SCH (09:13)
[2021-08-28] MEDS: cloNIDine 0.2 MG TAB PO SCH ×2 (09:13→22:10)
[2021-08-28] MEDS: levETIRAcetam 500 MG TAB PO SCH (09:13)
[2021-08-28] MEDS: FAMOTIDINE 20 MG TAB FEEDTUBE SCH (09:13)
[2021-08-28] MEDS: ASPIRIN 325 MG TAB FEEDTUBE SCH (09:13)
[2021-08-28] MEDS: INSULIN GLARGINE 100 UNITS/ML SUB-Q SCH ×2 (09:14→22:11)
[2021-08-28] MEDS ORDERED: SODIUM CHLORIDE 0.9% 100 ML IV PRN (11:34)
--- NOTE | 2021-08-28 11:34 | Progress Note ---
Assessment and Plan ESRD - HD in am via Rt arm AVF HTN - F/u on meds HyperCalcemia - Low Ca bath on HD HD Access - S/p thrombectomy & stable. Rt Femoral Vascath removed Subjective Date of service: 08/28/21 Principal diagnosis: Possible Sepsis; DKA; AMS; h/o CVA left hemiparesis; ESRD on Dialysis; HTN Interval history: No new complaint Objective - Vital Signs Vital signs: Vital Signs - 12hr 08/27/21 08/28/21 08/28/21 23:47 04:00 04:10 Temperature 98.9 F Pulse Rate 69 73 76 Respiratory 18 Rate Blood Pressure 127/60 O2 Sat by Pulse 97 Oximetry 08/28/21 08/28/21 08/28/21 04:14 08:08 09:11 Temperature 98.9 F 98.0 F Pulse Rate 73 79 79 Respiratory 18 20 Rate Blood Pressure 140/68 159/72 159/72 O2 Sat by Pulse 96 99 Oximetry 08/28/21 08/28/21 09:12 09:13 Temperature Pulse Rate 79 79 Respiratory Rate Blood Pressure 159/72 159/72 O2 Sat by Pulse Oximetry - General Appearance General appearance: other (Awake & verbally responsive) EENT: PERRL, hearing intact Neck: no JVD Respiratory: Present: Other (Good air entry) Cardiology: regular, S1S2 Gastrointestinal: other (DHT in place) Neurologic: alert and oriented x3 Psychiatric: mood/affect appropriate - Lab 08/27/21 06:02 08/28/21 05:11 Most recent lab results Calcium 10.8 mg/dL (8.4-10.2) H 08/28/21 05:11 Phosphorus 6.00 mg/dL (2.5-4.5) H 08/27/21 06:02 Magnesium 2.50 mg/dL (1.7-2.3) H 08/27/21 06:02 Medications & Allergies - Medications Allergies/Adverse Reactions: Allergies vancomycin Adverse Reaction (Verified 04/02/13 10:16) Hives Home Medications: Home Medications Medication Instructions Recorded Confirmed Last Taken Type Hydralazine HCl [hydrALAZINE] 100 mg PO BID 04/02/13 08/17/21 04/02/13 08:00 History Aspirin/Dipyridamole [Aggrenox] 1 cap PO BID #60 capsule 04/10/13 08/17/21 Unknown Rx Cinacalcet [Sensipar] 60 mg PO QDAY 08/17/21 08/17/21 Unknown History Citalopram [celeXA] 20 mg PO QDAY 08/17/21 08/17/21 Unknown History Ergocalciferol [Vitamin D2] 1 cap PO QWEEK 08/17/21 08/17/21 Unknown History Gabapentin [Neurontin] 100 mg PO Q8HR 08/17/21 08/17/21 Unknown History Insulin Glargine,Hum.rec.anlog 55 unit SQ BID 08/17/21 08/17/21 Unknown History [Lantus Solostar] Promethazine [Phenergan] 25 mg PO Q6HR PRN 08/17/21 08/17/21 Unknown History Sevelamer Carbonate [Renvela] 800 mg PO TIDWM 08/17/21 08/17/21 Unknown History amLODIPine [Norvasc] 10 mg PO DAILY 08/17/21 08/17/21 Unknown History carvediloL [Coreg] 25 mg PO BID 08/17/21 08/17/21 Unknown History cloNIDine [Catapres] 0.2 mg PO BID 08/17/21 08/17/21 Unknown History Active Medications: Generic Name Dose Route Start Last Admin Trade Name Freq PRN Reason Stop Dose Admin Acetaminophen 650 mg 08/17/21 07:50 08/26/21 22:26 Acetaminophen 325 Mg Tab PO 650 mg Q6H PRN Administration Pain, Mild (1-3) Acetaminophen 650 mg 08/17/21 08:17 08/17/21 14:49 Acetaminophen 650 Mg Rect Supp [place] 650 mg Q4H PRN Administration Pain, Mild (1-3) Amlodipine Besylate 10 mg 08/22/21 11:00 08/28/21 09:12 Amlodipine 10 Mg Tab PO 10 mg QDAY HAM Administration Lipase/Protease/Amylase 1 each 08/26/21 16:00 Lipase 10,500/Protease 25,000/Amylase 43,750 (Units) Dr Lopez FEEDTUBE PRN PRN For Clogged Feeding Tube Aspirin 325 mg 08/22/21 10:00 08/28/21 09:13 Aspirin 325 Mg Tab FEEDTUBE 325 mg QDAY HAM Administration Citalopram Hydrobromide 20 mg 08/22/21 11:00 08/28/21 09:13 Citalopram 20 Mg Tab PO 20 mg QDAY HAM Administration Clonidine HCl 0.2 mg 08/22/21 11:00 08/28/21 09:13 Clonidine 0.2 Mg Tab PO 0.2 mg Q12HR HAM Administration Dextrose 50 ml 08/17/21 23:37 Dextrose 50% In Water (25gm) 50 Ml Syringe IV Q30MIN PRN Hypoglycemia Protocol Duloxetine HCl 30 mg 08/21/21 10:00 08/23/21 17:08 Duloxetine 30 Mg Cap PO Not Given QDAY HAM Famotidine 20 mg 08/20/21 10:00 08/28/21 09:13 Famotidine 20 Mg Tab FEEDTUBE 20 mg QDAY HAM Administration Haloperidol Lactate 5 mg 08/19/21 12:00 08/19/21 16:14 Haloperidol Lactate 5 Mg/1 Ml Inj IV 5 mg Q6H PRN Administration Agitation Heparin Sodium (Porcine) 5,000 unit 08/17/21 06:00 08/28/21 05:54 Heparin 5,000 Unit/1 Ml Vial SUB-Q 5,000 unit Q8HR HAM Administration Heparin Sodium (Porcine) 3,000 unit 08/17/21 07:41 Heparin 10,000 Units/10 Ml Vial IV KATI PRN hemodialysis Hydralazine HCl 100 mg 08/17/21 09:00 08/28/21 09:12 Hydralazine 100 Mg Tab PO 100 mg TID HAM Administration Hydralazine HCl 10 mg 08/17/21 07:56 08/25/21 05:19 Hydralazine 20 Mg/1 Ml Inj IV 10 mg Q4HR PRN Administration Hypertension Hydromorphone HCl 0.25 mg 08/17/21 07:50 08/28/21 09:05 Hydromorphone 0.5 Mg/0.5 Ml Inj IV 0.25 mg Q4H PRN Administration Pain, Moderate (4-6) Sodium Chloride 100 mls @ 999 mls/hr 08/18/21 10:08 Nacl 0.9% IV KATI PRN Hypotension Insulin Glargine 25 units 08/28/21 10:00 08/28/21 09:14 Insulin Glargine 100 Units/Ml SUB-Q 25 units BID HAM Administration Insulin Human Lispro 0 unit 08/18/21 00:00 08/28/21 07:31 Insulin Lispro 100 Unit/Ml SUB-Q Not Given Q6HR [facility] Protocol Levetiracetam 500 mg 08/20/21 10:00 08/28/21 09:13 Levetiracetam 500 Mg Tab PO 500 mg DAILY HAM Administration Levothyroxine Sodium 125 mcg 08/22/21 06:00 08/28/21 09:12 Levothyroxine 125 Mcg Tab PO 125 mcg QAM@0600 HAM Administration Losartan Potassium 50 mg 08/17/21 10:00 08/28/21 09:13 Losartan 50 Mg Tab PO 50 mg QDAY HAM Administration Magnesium Hydroxide 30 ml 08/17/21 04:09 08/23/21 23:56 Magnesium Hydroxide (Mom) Oral Liqd Udc PO 30 ml Q4H PRN Administration Constipation Metoprolol Tartrate 100 mg 08/20/21 11:00 08/28/21 09:11 Metoprolol Tartrate 100 Mg Tab PO 100 mg BID HAM Administration Ondansetron HCl 4 mg 08/17/21 04:09 Ondansetron 4 Mg/2 Ml Inj IV Q8H PRN Nausea And Vomiting Simple Syrup 15 ml 08/26/21 16:00 Simple Syrup 15 Ml FEEDTUBE PRN PRN Hypoglycemia Simple Syrup 30 ml 08/26/21 16:00 Simple Syrup 15 Ml FEEDTUBE PRN PRN Hypoglycemia Sodium Bicarbonate 325 mg 08/26/21 16:00 Sodium Bicarbonate 325 Mg Tab FEEDTUBE PRN PRN For Clogged Feeding Tube Sodium Chloride 10 ml 08/17/21 10:00 08/28/21 09:05 Sodium Chloride 0.9% 10 Ml Flush Syringe IV 10 ml BID HAM Administration Sodium Chloride 10 ml 08/17/21 04:09 08/19/21 02:59 Sodium Chloride 0.9% 10 Ml Flush Syringe IV 10 ml PRN PRN Administration LINE FLUSH
--- NOTE | 2021-08-28 14:12 | Progress Note ---
Assessment and Plan Possible Sepsis (high grade fevers, tachycardia, acute encephalopathy, tachypnea) DKA Acute Metabolic Encephalopathy h/o CVA with left-sided deficits End Stage renal Disease on HD HTN Hypothyroidism - continue enteral nutrition via dubhoff tube @ goal rate as tolerated - continue strict aspiration precautions; HOB > 40 degrees - continue care as below otherwise; - continue keppra as AED - prn Haldol for delirium / agitation - supplemental oxygen for target O2 sats > 90% - prn bronchodilators (DG) with pulm hygiene per RT - continue HD/UF per nephrology prescription for toxin and volume clearance - continue to avoid nephrotoxins, renally dose all medications - continue mobility protocols to prevent pressure ulcers - PT/OT as tolerated - Wound care per RN/WCT - continue accuchecks with glycemic control per SSI for target blood glucose < 180 mg/dL - tobacco abstinence counseled at the bedside - home oxygen evaluation at discharge - GI & VTE prophylaxis - Flu & pneumovax per protocol - Pulmonary out patient follow up for PFTs and optimization of respiratory status - continue other care per attending / other consultants - prn analgesia per pain score COVID SPECIFIC INTERVENTIONS - COVID-19 PCR negative ... re-evaluate in am & prn Subjective Date of service: 08/28/21 Principal diagnosis: Possible Sepsis; DKA; AMS; h/o CVA left hemiparesis; ESRD on Dialysis; HTN Interval history: Patient is seen today for: Possible Sepsis; DKA; Acute Metabolic Encephalopathy; h/o CVA with left-sided deficits; End Stage renal Disease on HD; HTN Seen and examined at bedside; 24hour events reviewed; nursing and respiratory care staff consulted; no adverse overnight events reported to me; resting peacefully in bed; on room air; denies N/V/F/C Objective Vital Signs - 12hr 08/28/21 08/28/21 08/28/21 04:00 04:10 04:14 Temperature 98.9 F Pulse Rate 73 76 73 Respiratory 18 Rate Blood Pressure 140/68 O2 Sat by Pulse 96 Oximetry 08/28/21 08/28/21 08/28/21 08:08 09:11 09:12 Temperature 98.0 F Pulse Rate 79 79 79 Respiratory 20 Rate Blood Pressure 159/72 159/72 159/72 O2 Sat by Pulse 99 Oximetry 08/28/21 08/28/21 09:13 11:32 Temperature 97.8 F Pulse Rate 79 72 Respiratory 20 Rate Blood Pressure 159/72 129/61 O2 Sat by Pulse 99 Oximetry Constitutional: no acute distress, other (middle aged obese female with normal respiratory effort at rest) Eyes: non-icteric ENT: oropharynx moist, other (+ NGT) Neck: supple, no lymphadenopathy, no JVD, other (large circumference) Effort: mildly labored Ascultation: Bilateral: clear, diminished breath sounds Percussion: Bilateral: not dull Cardiovascular: regular rate and rhythm, other (S1,S2) Gastrointestinal: normoactive bowel sounds, soft, non-tender, non-distended (protuberant), other (obese) Integumentary: normal Extremities: no cyanosis, no edema, pulses normal, no ischemia or petechiae Neurologic: non-focal exam (grossly), pupils equal and round, CN II-XII normal, other (weak & ? mild delirium) Psychiatric: mood appropriate, affect normal CBC and BMP: 08/29/21 04:29 08/29/21 04:29 ABG, PT/INR, D-dimer: PT/INR, D-dimer PT 14.0 Sec. (12.2-14.9) 08/23/21 22:59 INR 0.97 (0.87-1.13) 08/23/21 22:59 D-Dimer 2695.37 ng/mlDDU (0-234) H 08/17/21 14:40 Abnormal lab findings: Abnormal Labs 08/17/21 08/17/21 08/17/21 00:33 00:33 02:07 WBC MCH RDW 19.7 H Lymph % (Auto) 10.5 L [place] % (Auto) Lymph # (Auto) 1.1 L [place] # (Auto) Baso # (Auto) Seg Neutrophils % 79.1 H Seg Neutrophils # 8.6 H D-Dimer Sodium 132 L 134 L Chloride 87.8 L 88.4 L Carbon Dioxide 21 L BUN 61 H 61 H Creatinine 10.1 H 10.3 H Glucose 594 H* 533 H* POC Glucose Hemoglobin A1c Calcium Phosphorus Magnesium ALT < 5 L Alkaline Phosphatase 182 H NT-Pro-B Natriuret Pep 96630 H Albumin HDL Cholesterol TSH Salicylates Acetaminophen 08/17/21 08/17/21 08/17/21 02:07 02:07 02:07 WBC MCH RDW Lymph % (Auto) [place] % (Auto) Lymph # (Auto) [place] # (Auto) Baso # (Auto) Seg Neutrophils % Seg Neutrophils # D-Dimer Sodium Chloride Carbon Dioxide BUN Creatinine Glucose POC Glucose Hemoglobin A1c Calcium Phosphorus Magnesium ALT Alkaline Phosphatase NT-Pro-B Natriuret Pep Albumin HDL Cholesterol TSH 5.080 H Salicylates < 0.3 L Acetaminophen 5.0 L 08/17/21 08/17/21 08/17/21 04:20 04:20 05:09 WBC MCH RDW Lymph % (Auto) [place] % (Auto) Lymph # (Auto) [place] # (Auto) Baso # (Auto) Seg Neutrophils % Seg Neutrophils # D-Dimer Sodium 136 L Chloride 90.9 L Carbon Dioxide BUN 61 H Creatinine 10.4 H Glucose 351 H POC Glucose 298 H Hemoglobin A1c Calcium Phosphorus 6.20 H Magnesium ALT Alkaline Phosphatase NT-Pro-B Natriuret Pep Albumin HDL Cholesterol TSH Salicylates Acetaminophen 08/17/21 08/17/21 08/17/21 09:58 10:53 13:14 WBC MCH RDW Lymph % (Auto) [place] % (Auto) Lymph # (Auto) [place] # (Auto) Baso # (Auto) Seg Neutrophils % Seg Neutrophils # D-Dimer Sodium Chloride Carbon Dioxide BUN Creatinine Glucose POC Glucose 139 H 162 H 145 H Hemoglobin A1c Calcium Phosphorus Magnesium ALT Alkaline Phosphatase NT-Pro-B Natriuret Pep Albumin HDL Cholesterol TSH Salicylates Acetaminophen 08/17/21 08/17/21 08/17/21 14:40 14:40 14:40 WBC MCH RDW Lymph % (Auto) [place] % (Auto) Lymph # (Auto) [place] # (Auto) Baso # (Auto) Seg Neutrophils % Seg Neutrophils # D-Dimer 2695.37 H Sodium Chloride 96.7 L Carbon Dioxide BUN 63 H Creatinine 10.7 H Glucose 145 H POC Glucose Hemoglobin A1c Calcium Phosphorus Magnesium ALT Alkaline Phosphatase NT-Pro-B Natriuret Pep Albumin HDL Cholesterol 30 L TSH Salicylates Acetaminophen 08/17/21 08/17/21 08/17/21 14:40 16:45 17:47 WBC MCH RDW Lymph % (Auto) [place] % (Auto) Lymph # (Auto) [place] # (Auto) Baso # (Auto) Seg Neutrophils % Seg Neutrophils # D-Dimer Sodium Chloride 96.2 L Carbon Dioxide BUN 44 H Creatinine 7.2 H Glucose 167 H POC Glucose 136 H 165 H Hemoglobin A1c Calcium Phosphorus Magnesium ALT Alkaline Phosphatase NT-Pro-B Natriuret Pep Albumin HDL Cholesterol TSH Salicylates Acetaminophen 08/17/21 08/17/21 08/17/21 18:01 21:01 22:40 WBC MCH RDW Lymph % (Auto) [place] % (Auto) Lymph # (Auto) [place] # (Auto) Baso # (Auto) Seg Neutrophils % Seg Neutrophils # D-Dimer Sodium Chloride 97.1 L 96.4 L Carbon Dioxide BUN 39 H 40 H Creatinine 8.0 H 8.5 H Glucose 122 H 109 H POC Glucose 172 H Hemoglobin A1c Calcium Phosphorus Magnesium ALT Alkaline Phosphatase NT-Pro-B Natriuret Pep Albumin HDL Cholesterol TSH Salicylates Acetaminophen 08/17/21 08/18/21 08/18/21 22:40 02:13 04:56 WBC MCH 27 L RDW 19.7 H Lymph % (Auto) [place] % (Auto) Lymph # (Auto) [place] # (Auto) Baso # (Auto) Seg Neutrophils % Seg Neutrophils # D-Dimer Sodium Chloride 96.8 L Carbon Dioxide BUN 44 H Creatinine 9.3 H Glucose 170 H POC Glucose 190 H Hemoglobin A1c Calcium Phosphorus 6.70 H Magnesium ALT Alkaline Phosphatase NT-Pro-B Natriuret Pep Albumin HDL Cholesterol TSH Salicylates Acetaminophen 08/18/21 08/18/21 08/18/21 04:56 04:56 17:01 WBC MCH 27 L RDW 19.7 H Lymph % (Auto) [place] % (Auto) 9.7 H Lymph # (Auto) [place] # (Auto) Baso # (Auto) Seg Neutrophils % Seg Neutrophils # D-Dimer Sodium Chloride Carbon Dioxide BUN Creatinine Glucose POC Glucose 228 H Hemoglobin A1c 10.2 H Calcium Phosphorus Magnesium ALT Alkaline Phosphatase NT-Pro-B Natriuret Pep Albumin HDL Cholesterol TSH Salicylates Acetaminophen 08/18/21 08/19/21 08/19/21 23:58 04:37 04:37 WBC MCH 27 L RDW 19.5 H Lymph % (Auto) [place] % (Auto) Lymph # (Auto) [place] # (Auto) Baso # (Auto) Seg Neutrophils % Seg Neutrophils # D-Dimer Sodium Chloride 96.7 L Carbon Dioxide 21 L BUN 57 H Creatinine 10.2 H Glucose 151 H POC Glucose 192 H Hemoglobin A1c Calcium Phosphorus Magnesium ALT Alkaline Phosphatase NT-Pro-B Natriuret Pep Albumin HDL Cholesterol TSH Salicylates Acetaminophen 08/19/21 08/19/21 08/20/21 17:46 22:59 04:24 WBC MCH RDW Lymph % (Auto) [place] % (Auto) Lymph # (Auto) [place] # (Auto) Baso # (Auto) Seg Neutrophils % Seg Neutrophils # D-Dimer Sodium 133 L Chloride 87.9 L Carbon Dioxide 15 L BUN 33 H Creatinine 7.3 H Glucose 365 H POC Glucose 217 H 282 H Hemoglobin A1c Calcium Phosphorus 6.50 H Magnesium ALT Alkaline Phosphatase NT-Pro-B Natriuret Pep Albumin HDL Cholesterol TSH Salicylates Acetaminophen 08/20/21 08/20/21 08/20/21 06:07 07:51 15:37 WBC MCH RDW Lymph % (Auto) [place] % (Auto) Lymph # (Auto) [place] # (Auto) Baso # (Auto) Seg Neutrophils % Seg Neutrophils # D-Dimer Sodium Chloride Carbon Dioxide BUN Creatinine Glucose POC Glucose 398 H 308 H 247 H Hemoglobin A1c Calcium Phosphorus Magnesium ALT Alkaline Phosphatase NT-Pro-B Natriuret Pep Albumin HDL Cholesterol TSH Salicylates Acetaminophen 08/20/21 08/21/21 08/21/21 23:22 04:45 05:07 WBC MCH RDW Lymph % (Auto) [place] % (Auto) Lymph # (Auto) [place] # (Auto) Baso # (Auto) Seg Neutrophils % Seg Neutrophils # D-Dimer Sodium 134 L Chloride 92.9 L Carbon Dioxide BUN 48 H Creatinine 8.0 H Glucose 389 H POC Glucose 316 H 407 H Hemoglobin A1c Calcium 10.6 H Phosphorus Magnesium ALT Alkaline Phosphatase NT-Pro-B Natriuret Pep Albumin HDL Cholesterol TSH Salicylates Acetaminophen 08/21/21 08/21/21 08/21/21 11:37 15:52 23:44 WBC MCH RDW Lymph % (Auto) [place] % (Auto) Lymph # (Auto) [place] # (Auto) Baso # (Auto) Seg Neutrophils % Seg Neutrophils # D-Dimer Sodium Chloride Carbon Dioxide BUN Creatinine Glucose POC Glucose 244 H 325 H 221 H Hemoglobin A1c Calcium Phosphorus Magnesium ALT Alkaline Phosphatase NT-Pro-B Natriuret Pep Albumin HDL Cholesterol TSH Salicylates Acetaminophen 08/22/21 08/22/21 08/23/21 06:06 12:27 00:37 WBC MCH RDW Lymph % (Auto) [place] % (Auto) Lymph # (Auto) [place] # (Auto) Baso # (Auto) Seg Neutrophils % Seg Neutrophils # D-Dimer Sodium Chloride Carbon Dioxide BUN Creatinine Glucose POC Glucose 224 H 247 H 341 H Hemoglobin A1c Calcium Phosphorus Magnesium ALT Alkaline Phosphatase NT-Pro-B Natriuret Pep Albumin HDL Cholesterol TSH Salicylates Acetaminophen 08/23/21 08/23/21 08/23/21 04:20 05:37 11:56 WBC MCH RDW Lymph % (Auto) [place] % (Auto) Lymph # (Auto) [place] # (Auto) Baso # (Auto) Seg Neutrophils % Seg Neutrophils # D-Dimer Sodium Chloride 94.4 L Carbon Dioxide BUN 49 H Creatinine 7.7 H Glucose 201 H POC Glucose 210 H 162 H Hemoglobin A1c Calcium 10.9 H Phosphorus Magnesium ALT Alkaline Phosphatase NT-Pro-B Natriuret Pep Albumin HDL Cholesterol TSH Salicylates Acetaminophen 08/23/21 08/23/21 08/23/21 17:45 22:58 22:59 WBC 12.2 H MCH 26 L RDW 20.3 H Lymph % (Auto) [place] % (Auto) Lymph # (Auto) [place] # (Auto) Baso # (Auto) Seg Neutrophils % Seg Neutrophils # D-Dimer Sodium Chloride Carbon Dioxide BUN Creatinine Glucose POC Glucose 211 H 218 H Hemoglobin A1c Calcium Phosphorus Magnesium ALT Alkaline Phosphatase NT-Pro-B Natriuret Pep Albumin HDL Cholesterol TSH Salicylates Acetaminophen 08/23/21 08/24/21 08/24/21 22:59 04:23 04:23 WBC 15.4 H MCH 27 L RDW 19.8 H Lymph % (Auto) [place] % (Auto) 13.0 H Lymph # (Auto) [place] # (Auto) 2.0 H Baso # (Auto) 0.2 H Seg Neutrophils % Seg Neutrophils # 9.8 H D-Dimer Sodium 136 L Chloride 93.0 L Carbon Dioxide BUN 73 H Creatinine 8.7 H 9.2 H Glucose 145 H POC Glucose Hemoglobin A1c Calcium 10.7 H Phosphorus 6.30 H Magnesium 2.70 H ALT 6 L Alkaline Phosphatase 157 H NT-Pro-B Natriuret Pep Albumin 3.7 L HDL Cholesterol TSH Salicylates Acetaminophen 08/24/21 08/24/21 08/24/21 05:09 11:20 18:28 WBC MCH RDW Lymph % (Auto) [place] % (Auto) Lymph # (Auto) [place] # (Auto) Baso # (Auto) Seg Neutrophils % Seg Neutrophils # D-Dimer Sodium Chloride Carbon Dioxide BUN Creatinine Glucose POC Glucose 155 H 110 H 182 H Hemoglobin A1c Calcium Phosphorus Magnesium ALT Alkaline Phosphatase NT-Pro-B Natriuret Pep Albumin HDL Cholesterol TSH Salicylates Acetaminophen 08/25/21 08/25/21 08/25/21 00:15 04:44 11:28 WBC 11.3 H MCH 27 L RDW 20.4 H Lymph % (Auto) [place] % (Auto) Lymph # (Auto) [place] # (Auto) Baso # (Auto) Seg Neutrophils % Seg Neutrophils # D-Dimer Sodium Chloride Carbon Dioxide BUN Creatinine Glucose POC Glucose 247 H 189 H Hemoglobin A1c Calcium Phosphorus Magnesium ALT Alkaline Phosphatase NT-Pro-B Natriuret Pep Albumin HDL Cholesterol TSH Salicylates Acetaminophen 08/25/21 08/25/21 08/26/21 16:42 23:29 05:22 WBC MCH RDW Lymph % (Auto) [place] % (Auto) Lymph # (Auto) [place] # (Auto) Baso # (Auto) Seg Neutrophils % Seg Neutrophils # D-Dimer Sodium Chloride Carbon Dioxide BUN Creatinine 10.0 H Glucose POC Glucose 169 H 213 H Hemoglobin A1c Calcium Phosphorus Magnesium ALT Alkaline Phosphatase NT-Pro-B Natriuret Pep Albumin HDL Cholesterol TSH Salicylates Acetaminophen 08/26/21 08/26/21 08/26/21 06:12 11:47 23:33 WBC MCH RDW Lymph % (Auto) [place] % (Auto) Lymph # (Auto) [place] # (Auto) Baso # (Auto) Seg Neutrophils % Seg Neutrophils # D-Dimer Sodium Chloride Carbon Dioxide BUN Creatinine Glucose POC Glucose 191 H 197 H 197 H Hemoglobin A1c Calcium Phosphorus Magnesium ALT Alkaline Phosphatase NT-Pro-B Natriuret Pep Albumin HDL Cholesterol TSH Salicylates Acetaminophen 08/27/21 08/27/21 08/27/21 06:02 06:02 06:17 WBC MCH 27 L RDW 20.1 H Lymph % (Auto) [place] % (Auto) 14.2 H Lymph # (Auto) [place] # (Auto) 1.4 H Baso # (Auto) Seg Neutrophils % Seg Neutrophils # D-Dimer Sodium 134 L Chloride 93.8 L Carbon Dioxide BUN 56 H Creatinine 6.4 H Glucose 253 H POC Glucose 250 H Hemoglobin A1c Calcium Phosphorus 6.00 H Magnesium 2.50 H ALT < 5 L Alkaline Phosphatase 135 H NT-Pro-B Natriuret Pep Albumin 3.6 L HDL Cholesterol TSH Salicylates Acetaminophen 08/27/21 08/27/21 08/27/21 11:21 16:05 23:13 WBC MCH RDW Lymph % (Auto) [place] % (Auto) Lymph # (Auto) [place] # (Auto) Baso # (Auto) Seg Neutrophils % Seg Neutrophils # D-Dimer Sodium Chloride Carbon Dioxide BUN Creatinine Glucose POC Glucose 287 H 321 H 286 H Hemoglobin A1c Calcium Phosphorus Magnesium ALT Alkaline Phosphatase NT-Pro-B Natriuret Pep Albumin HDL Cholesterol TSH Salicylates Acetaminophen 08/28/21 08/28/21 08/28/21 05:11 05:29 11:30 WBC MCH RDW Lymph % (Auto) [place] % (Auto) Lymph # (Auto) [place] # (Auto) Baso # (Auto) Seg Neutrophils % Seg Neutrophils # D-Dimer Sodium 134 L Chloride 91.8 L Carbon Dioxide BUN 79 H Creatinine 8.2 H Glucose 230 H POC Glucose 225 H 190 H Hemoglobin A1c Calcium 10.8 H Phosphorus Magnesium ALT Alkaline Phosphatase NT-Pro-B Natriuret Pep Albumin HDL Cholesterol TSH Salicylates Acetaminophen Allied health notes reviewed: nursing
[2021-08-29] MEDS: HALOPERIDOL LACTATE 5 MG/1 ML INJ IV PRN (00:28)
[2021-08-29] MEDS: INSULIN LISPRO 100 UNIT/ML SUB-Q SCH ×5 (00:28→17:15)
[2021-08-29] MEDS: HYDROmorphone 0.5 MG/0.5 ML INJ IV PRN ×5 (03:21→21:41)
[2021-08-29 05:26] LABS: Hematocrit 35.2 % (30.3-42.9); Hemoglobin 10.9 gm/dl (10.1-14.3); Mean Corpuscular HGB Conc 31 % (30-34); Mean Corpuscular Volume 86 fl (79-97); Platelet Count 174 K/mm3 (140-440); Red Blood Count 4.09 M/mm3 (3.65-5.03)
[2021-08-29 05:29] LABS: Red Cell Distribution Width 20.6 % (13.2-15.2)
[2021-08-29] MEDS: LEVOTHYROXINE 125 MCG TAB PO SCH (05:35)
[2021-08-29] MEDS: HEPARIN 5,000 UNIT/1 ML VIAL SUB-Q SCH ×3 (05:35→22:42)
[2021-08-29] MEDS: hydrALAZINE 100 MG TAB PO SCH ×3 (09:08→22:41)
--- NOTE | 2021-08-29 09:53 | Progress Note ---
Assessment and Plan ESRD - Seen & stable on HD am via Rt arm AVF HTN - F/u on meds HyperCalcemia - Low Ca bath on HD HD Access - S/p thrombectomy & stable. Rt Femoral Vascath removed Subjective Date of service: 08/29/21 Principal diagnosis: Possible Sepsis; DKA; AMS; h/o CVA left hemiparesis; ESRD on Dialysis; HTN Interval history: Seen on HD Objective - Vital Signs Vital signs: Vital Signs - 12hr 08/28/21 08/28/21 08/28/21 22:00 22:10 23:06 Temperature 98.7 F Pulse Rate 76 79 Pulse Rate [ 71 Right Radial] Respiratory 18 Rate Blood Pressure 149/64 O2 Sat by Pulse 99 99 Oximetry 08/29/21 08/29/21 08/29/21 04:00 05:38 07:34 Temperature 98.2 F 98.5 F Pulse Rate 64 65 68 Pulse Rate [ Right Radial] Respiratory 18 18 Rate Blood Pressure 119/58 128/60 O2 Sat by Pulse 97 97 Oximetry - General Appearance General appearance: other (Awake & responsive) EENT: PERRL Neck: no JVD Respiratory: Present: Other (Good air entry) Cardiology: regular, S1S2 Gastrointestinal: other (Soft) Neurologic: alert and oriented x3 - Lab 08/29/21 04:29 08/29/21 04:29 Most recent lab results Calcium 10.8 mg/dL (8.4-10.2) H 08/28/21 05:11 Phosphorus 6.00 mg/dL (2.5-4.5) H 08/27/21 06:02 Magnesium 2.50 mg/dL (1.7-2.3) H 08/27/21 06:02 Medications & Allergies - Medications Allergies/Adverse Reactions: Allergies vancomycin Adverse Reaction (Verified 04/02/13 10:16) Hives Home Medications: Home Medications Medication Instructions Recorded Confirmed Last Taken Type Hydralazine HCl [hydrALAZINE] 100 mg PO BID 04/02/13 08/17/21 04/02/13 08:00 History Aspirin/Dipyridamole [Aggrenox] 1 cap PO BID #60 capsule 04/10/13 08/17/21 Unknown Rx Cinacalcet [Sensipar] 60 mg PO QDAY 08/17/21 08/17/21 Unknown History Citalopram [celeXA] 20 mg PO QDAY 08/17/21 08/17/21 Unknown History Gabapentin [Neurontin] 100 mg PO Q8HR 08/17/21 08/17/21 Unknown History Insulin Glargine,Hum.rec.anlog 55 unit SQ BID 08/17/21 08/17/21 Unknown History [Lantus Solostar] Promethazine [Phenergan] 25 mg PO Q6HR PRN 08/17/21 08/17/21 Unknown History Sevelamer Carbonate [Renvela] 800 mg PO TIDWM 08/17/21 08/17/21 Unknown History amLODIPine [Norvasc] 10 mg PO DAILY 08/17/21 08/17/21 Unknown History carvediloL [Coreg] 25 mg PO BID 08/17/21 08/17/21 Unknown History Albuterol Mdi (or & Nicu Only) 2 puff IH QID PRN 08/29/21 08/29/21 Unknown History [ProAir HFA Inhaler] AtorvaSTATin [Lipitor] 40 mg PO QHS 08/29/21 08/29/21 Unknown History Cetirizine HCl [Zyrtec 10mg tab] 10 mg PO QDAY 08/29/21 08/29/21 Unknown History Ferric Citrate (Nf) [Auryxia] 210 mg PO TID 08/29/21 08/29/21 Unknown History Fluticasone [Flonase] 2 spray NS QDAY PRN 08/29/21 08/29/21 Unknown History Furosemide [Lasix TAB] 40 mg PO QDAY 08/29/21 08/29/21 Unknown History Insulin Aspart (Nf) [NovoLOG 15 units SQ TIDAC 08/29/21 08/29/21 Unknown History Flexpen] Metoclopramide [Reglan] 10 mg PO HS 08/29/21 08/29/21 Unknown History Pantoprazole [Protonix] 40 mg PO QDAY 08/29/21 08/29/21 Unknown History Prochlorperazine Maleate 10 mg PO QDAY PRN 08/29/21 08/29/21 Unknown History [Compazine] Sucroferric Oxyhydroxide(Nf) 500 mg PO TIDWM 08/29/21 08/29/21 Unknown History [Velphoro (Nf)] cloNIDine [Catapres] 0.1 mg PO TID 08/29/21 08/29/21 Unknown History Active Medications: Generic Name Dose Route Start Last Admin Trade Name Freq PRN Reason Stop Dose Admin Acetaminophen 650 mg 08/17/21 07:50 08/26/21 22:26 Acetaminophen 325 Mg Tab PO 650 mg Q6H PRN Administration Pain, Mild (1-3) Acetaminophen 650 mg 08/17/21 08:17 08/17/21 14:49 Acetaminophen 650 Mg Rect Supp AL 650 mg Q4H PRN Administration Pain, Mild (1-3) Amlodipine Besylate 10 mg 08/22/21 11:00 08/28/21 09:12 Amlodipine 10 Mg Tab PO 10 mg QDAY HAM Administration Lipase/Protease/Amylase 1 each 08/26/21 16:00 Lipase 10,500/Protease 25,000/Amylase 43,750 (Units) Dr Lopez FEEDTUBE PRN PRN For Clogged Feeding Tube Aspirin 325 mg 08/22/21 10:00 08/28/21 09:13 Aspirin 325 Mg Tab FEEDTUBE 325 mg QDAY HAM Administration Citalopram Hydrobromide 20 mg 08/22/21 11:00 08/28/21 09:13 Citalopram 20 Mg Tab PO 20 mg QDAY HAM Administration Clonidine HCl 0.2 mg 08/22/21 11:00 08/28/21 22:10 Clonidine 0.2 Mg Tab PO 0.2 mg Q12HR HAM Administration Dextrose 50 ml 08/17/21 23:37 Dextrose 50% In Water (25gm) 50 Ml Syringe IV Q30MIN PRN Hypoglycemia Protocol Duloxetine HCl 30 mg 08/21/21 10:00 08/23/21 17:08 Duloxetine 30 Mg Cap PO Not Given QDAY HAM Famotidine 20 mg 08/20/21 10:00 08/28/21 09:13 Famotidine 20 Mg Tab FEEDTUBE 20 mg QDAY HAM Administration Haloperidol Lactate 5 mg 08/19/21 12:00 08/29/21 00:28 Haloperidol Lactate 5 Mg/1 Ml Inj IV 5 mg Q6H PRN Administration Agitation Heparin Sodium (Porcine) 5,000 unit 08/17/21 06:00 08/29/21 05:35 Heparin 5,000 Unit/1 Ml Vial SUB-Q 5,000 unit Q8HR HAM Administration Heparin Sodium (Porcine) 3,000 unit 08/17/21 07:41 Heparin 10,000 Units/10 Ml Vial IV KATI PRN hemodialysis Hydralazine HCl 100 mg 08/17/21 09:00 08/28/21 22:10 Hydralazine 100 Mg Tab PO 100 mg TID HAM Administration Hydralazine HCl 10 mg 08/17/21 07:56 08/25/21 05:19 Hydralazine 20 Mg/1 Ml Inj IV 10 mg Q4HR PRN Administration Hypertension Hydromorphone HCl 0.25 mg 08/17/21 07:50 08/29/21 03:21 Hydromorphone 0.5 Mg/0.5 Ml Inj IV 0.25 mg Q4H PRN Administration Pain, Moderate (4-6) Sodium Chloride 100 mls @ 999 mls/hr 08/18/21 10:08 Nacl 0.9% IV KATI PRN Hypotension Sodium Chloride 100 mls @ 999 mls/hr 08/28/21 11:34 Nacl 0.9% IV KATI PRN Hypotension Insulin Glargine 25 units 08/28/21 10:00 08/28/21 22:11 Insulin Glargine 100 Units/Ml SUB-Q 25 units BID HAM Administration Insulin Human Lispro 0 unit 08/18/21 00:00 08/29/21 05:39 Insulin Lispro 100 Unit/Ml SUB-Q 3 unit Q6HR HAM Administration Protocol Levetiracetam 500 mg 08/20/21 10:00 08/28/21 09:13 Levetiracetam 500 Mg Tab PO 500 mg DAILY HAM Administration Levothyroxine Sodium 125 mcg 08/22/21 06:00 08/29/21 05:35 Levothyroxine 125 Mcg Tab PO 125 mcg QAM@0600 HAM Administration Losartan Potassium 50 mg 08/17/21 10:00 08/28/21 09:13 Losartan 50 Mg Tab PO 50 mg QDAY HAM Administration Magnesium Hydroxide 30 ml 08/17/21 04:09 08/23/21 23:56 Magnesium Hydroxide (Mom) Oral Liqd Udc PO 30 ml Q4H PRN Administration Constipation Metoprolol Tartrate 100 mg 08/20/21 11:00 08/28/21 22:10 Metoprolol Tartrate 100 Mg Tab PO 100 mg BID HAM Administration Ondansetron HCl 4 mg 08/17/21 04:09 Ondansetron 4 Mg/2 Ml Inj IV Q8H PRN Nausea And Vomiting Simple Syrup 15 ml 08/26/21 16:00 Simple Syrup 15 Ml FEEDTUBE PRN PRN Hypoglycemia Simple Syrup 30 ml 08/26/21 16:00 Simple Syrup 15 Ml FEEDTUBE PRN PRN Hypoglycemia Sodium Bicarbonate 325 mg 08/26/21 16:00 Sodium Bicarbonate 325 Mg Tab FEEDTUBE PRN PRN For Clogged Feeding Tube Sodium Chloride 10 ml 08/17/21 10:00 08/28/21 22:11 Sodium Chloride 0.9% 10 Ml Flush Syringe IV 10 ml BID HAM Administration Sodium Chloride 10 ml 08/17/21 04:09 08/19/21 02:59 Sodium Chloride 0.9% 10 Ml Flush Syringe IV 10 ml PRN PRN Administration LINE FLUSH
[2021-08-29] MEDS: INSULIN GLARGINE 100 UNITS/ML SUB-Q SCH ×2 (12:29→22:41)
--- NOTE | 2021-08-29 12:46 | Progress Note ---
Assessment and Plan Assessment and plan: #Right upper extremity AV graft thrombosis #End Stage Renal Disease requiring hemodialysis -s/p AVF declotting 08/26 via IR/Vascular surgery -s/p vascular surgery/ thrombectomy of right arm AV loop graft. -temporary vasc cath removed 08/26 -continue HD per Nephro -avoid nephrotoxic medications; Renally dose medications #DKA (Diabetic Ketoacidosis)-resolved #Type II diabetes, insulin dependent -s/p insulin gtt -Hgb A1C 10.2% -continue lantus 25U BID, continue SSI and BG Q6hrs since NPO -goal glucose 140-180 while inpatient #Possible Sepsis r/o -patient afebrile, WBC normalizing -Blood cultures with NGTD x 5days -s/p IV abx, none needed due to no infectious process found -ID on consulted, signed off #Acute Metabolic Encephalopathy-improving #H/o CVA (cerebral infarction) with left-sided deficits -Multifactorial, DKA vs azotemia vs infectious process -Awake and tracking and following commands this morning -CT head and MRI brain noted with no acute abnormality -Neurology consulted, appreciated recommendations -c/f seizure, continue Keppra -PRN Haldol for agitation -Fall and safety precaution -Aspiration precaution -Frequent reorientation -Avoid benzodiazepine to reduce the possibility of delirium -Maintenance of sleep-wake cycle -PT/OT/Speech ordered #Hypertension -PO antihypertensives held due to AMS -Speech therapy re-evaluation ordered -PRN Hydralazine and Labetalol for SBP greater than 160 #Elevated D-Dimer #H/o DVT -BLE doppler showed no evidence for acute DVT in either lower extremity. 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 -Per patient's mother, patient has been off coumadin for a couple of years -Continue Heparin SubQ -low suspicion for PE, will order V/Q scan if return of fever, dyspnea -Patient might benefit from PO AC at discharge, awaiting Vascular surgery recommendations #Hypothyroidism -continue synthroid #Dysphagia -Patient failed initial speech eval due to mental status -continue TF for now, Nutrition following -Speech re-evaluation due to improvement in mental status #GI/ DVT Prophylaxis -PPI- Pepcid -heparin SubQ -SCDs to bilateral lower extremities while in bed #Discharge planning -Patient currently getting nutrition through NG tube. Patient will need speech therapy reevaluation to make sure it is safe for her to resume oral feeding. -Plan to discharge patient home with mother History Interval history: No acute events overnight. Patient alert and oriented x4. She was seen in the hemodialysis suite. She has no complaints at this time. Hospitalist Physical - Physical exam Narrative exam: GENERAL: Well-developed well-nourished. In no acute distress. HEENT: NG tube in place and clamped. CHEST/LUNGS: CTAB on room air HEART/CARDIOVASCULAR: RRR. No murmur, rubs or gallops appreciated. ABDOMEN: +BS. NT/ND. NEURO: No focal motor deficit. Follows all commands. EXTREMITIES: Right upper extremity aVF. No cyanosis, clubbing or edema. PSYCH: Cooperative. - Constitutional Vitals: Temp Pulse Resp BP Pulse Ox 98.2 F 66 20 136/74 98 08/29/21 08:40 08/29/21 12:00 08/29/21 08:40 08/29/21 12:00 08/29/21 08:40 General appearance: Present: no acute distress, well-nourished, other (Does not respond, nonverbal, randomly moves) Results - Labs CBC & Chem 7: 08/29/21 04:29 08/29/21 04:29 Labs: Laboratory Last Values WBC 8.0 K/mm3 (4.5-11.0) 08/29/21 04:29 RBC 4.09 M/mm3 (3.65-5.03) 08/29/21 04:29 Hgb 10.9 gm/dl (10.1-14.3) 08/29/21 04:29 Hct 35.2 % (30.3-42.9) 08/29/21 04:29 MCV 86 fl (79-97) 08/29/21 04:29 MCH 27 pg (28-32) L 08/29/21 04:29 MCHC 31 % (30-34) 08/29/21 04:29 RDW 20.6 % (13.2-15.2) H 08/29/21 04:29 Plt Count 174 K/mm3 (140-440) 08/29/21 04:29 Lymph % (Auto) 20.3 % (13.4-35.0) 08/27/21 06:02 [place] % (Auto) 14.2 % (0.0-7.3) H 08/27/21 06:02 Eos % (Auto) 1.9 % (0.0-4.3) 08/27/21 06:02 Baso % (Auto) 0.8 % (0.0-1.8) 08/27/21 06:02 Lymph # (Auto) 1.9 K/mm3 (1.2-5.4) 08/27/21 06:02 [place] # (Auto) 1.4 K/mm3 (0.0-0.8) H 08/27/21 06:02 Eos # (Auto) 0.2 K/mm3 (0.0-0.4) 08/27/21 06:02 Baso # (Auto) 0.1 K/mm3 (0.0-0.1) 08/27/21 06:02 Seg Neutrophils % 62.8 % (40.0-70.0) 08/27/21 06:02 Seg Neutrophils # 6.0 K/mm3 (1.8-7.7) 08/27/21 06:02 PT 14.0 Sec. (12.2-14.9) 08/23/21 22:59 INR 0.97 (0.87-1.13) 08/23/21 22:59 APTT 27.9 Sec. (24.2-36.6) 08/23/21 22:59 D-Dimer 2695.37 ng/mlDDU (0-234) H 08/17/21 14:40 Sodium 134 mmol/L (137-145) L 08/28/21 05:11 Potassium 4.5 mmol/L (3.6-5.0) 08/28/21 05:11 Chloride 91.8 mmol/L (98-107) L 08/28/21 05:11 Carbon Dioxide 24 mmol/L (22-30) 08/28/21 05:11 Anion Gap 23 mmol/L 08/28/21 05:11 BUN 79 mg/dL (7-17) H 08/28/21 05:11 Creatinine 9.8 mg/dL (0.6-1.2) H 08/29/21 04:29 Estimated GFR 5 ml/min 08/29/21 04:29 BUN/Creatinine Ratio 10 % 08/28/21 05:11 Glucose 230 mg/dL (65-100) H 08/28/21 05:11 POC Glucose 174 mg/dL (70-105) H 08/29/21 05:37 Hemoglobin A1c 10.2 % (4-6) H 08/18/21 04:56 Lactic Acid 1.70 mmol/L (0.7-2.0) 08/17/21 02:07 Calcium 10.8 mg/dL (8.4-10.2) H 08/28/21 05:11 Phosphorus 6.00 mg/dL (2.5-4.5) H 08/27/21 06:02 Magnesium 2.50 mg/dL (1.7-2.3) H 08/27/21 06:02 Total Bilirubin 0.30 mg/dL (0.1-1.2) 08/27/21 06:02 AST 22 units/L (5-40) 08/27/21 06:02 ALT < 5 units/L (7-56) L 08/27/21 06:02 Alkaline Phosphatase 135 units/L (35-129) H 08/27/21 06:02 NT-Pro-B Natriuret Pep 28220 pg/mL (0-450) H 08/17/21 02:07 Total Protein 7.1 g/dL (6.3-8.2) 08/27/21 06:02 Albumin 3.6 g/dL (3.9-5) L 08/27/21 06:02 Albumin/Globulin Ratio 1.0 % 08/27/21 06:02 Triglycerides 128 mg/dL (2-149) 08/17/21 14:40 Cholesterol 128 mg/dL (50-199) 08/17/21 14:40 LDL Cholesterol Direct 69 mg/dL (50-130) 08/17/21 14:40 HDL Cholesterol 30 mg/dL (40-59) L 08/17/21 14:40 Cholesterol/HDL Ratio 4.26 % 08/17/21 14:40 TSH 5.080 mlU/mL (0.270-4.200) H 08/17/21 02:07 Salicylates < 0.3 mg/dL (2.8-20.0) L 08/17/21 02:07 Acetaminophen 5.0 ug/mL (10.0-30.0) L 08/17/21 02:07 Plasma/Serum Alcohol < 0.01 % (0-0.07) 08/17/21 02:07 SARS-CoV-2 (PCR) Negative (Negative) 08/17/21 09:12 Hepatitis A IgM Ab Non-reactive (NonReactive) 08/17/21 14:40 Hep Bs Antigen Non-reactive (Negative) 08/17/21 14:40 Hep B Core IgM Ab Non-reactive (NonReactive) 08/17/21 14:40 Hepatitis C Antibody Non-reactive (NonReactive) 08/17/21 14:40 Blood Type O POSITIVE 08/17/21 17:43 Antibody Screen Negative 08/17/21 17:43 Tomas/IV: Voiding Method External Female Catheter Active Medications - Current Medications Current Medications: Generic Name Dose Route Start Last Admin Trade Name Freq PRN Reason Stop Dose Admin Acetaminophen 650 mg 08/17/21 07:50 08/26/21 22:26 Acetaminophen 325 Mg Tab PO 650 mg Q6H PRN Administration Pain, Mild (1-3) Acetaminophen 650 mg 08/17/21 08:17 08/17/21 14:49 Acetaminophen 650 Mg Rect Supp [place] 650 mg Q4H PRN Administration Pain, Mild (1-3) Amlodipine Besylate 10 mg 08/22/21 11:00 08/28/21 09:12 Amlodipine 10 Mg Tab PO 10 mg QDAY HAM Administration Lipase/Protease/Amylase 1 each 08/26/21 16:00 Lipase 10,500/Protease 25,000/Amylase 43,750 (Units) Dr Lopez FEEDTUBE PRN PRN For Clogged Feeding Tube Aspirin 325 mg 08/22/21 10:00 08/28/21 09:13 Aspirin 325 Mg Tab FEEDTUBE 325 mg QDAY HAM Administration Citalopram Hydrobromide 20 mg 08/22/21 11:00 08/28/21 09:13 Citalopram 20 Mg Tab PO 20 mg QDAY HAM Administration Clonidine HCl 0.2 mg 08/22/21 11:00 08/28/21 22:10 Clonidine 0.2 Mg Tab PO 0.2 mg Q12HR HAM Administration Dextrose 50 ml 08/17/21 23:37 Dextrose 50% In Water (25gm) 50 Ml Syringe IV Q30MIN PRN Hypoglycemia Protocol Duloxetine HCl 30 mg 08/21/21 10:00 08/23/21 17:08 Duloxetine 30 Mg Cap PO Not Given QDAY HAM Famotidine 20 mg 08/20/21 10:00 08/28/21 09:13 Famotidine 20 Mg Tab FEEDTUBE 20 mg QDAY HAM Administration Haloperidol Lactate 5 mg 08/19/21 12:00 08/29/21 00:28 Haloperidol Lactate 5 Mg/1 Ml Inj IV 5 mg Q6H PRN Administration Agitation Heparin Sodium (Porcine) 5,000 unit 08/17/21 06:00 08/29/21 05:35 Heparin 5,000 Unit/1 Ml Vial SUB-Q 5,000 unit Q8HR HAM Administration Heparin Sodium (Porcine) 3,000 unit 08/17/21 07:41 Heparin 10,000 Units/10 Ml Vial IV KATI PRN hemodialysis Hydralazine HCl 100 mg 08/17/21 09:00 08/28/21 22:10 Hydralazine 100 Mg Tab PO 100 mg TID HAM Administration Hydralazine HCl 10 mg 08/17/21 07:56 08/25/21 05:19 Hydralazine 20 Mg/1 Ml Inj IV 10 mg Q4HR PRN Administration Hypertension Hydromorphone HCl 0.25 mg 08/17/21 07:50 08/29/21 03:21 Hydromorphone 0.5 Mg/0.5 Ml Inj IV 0.25 mg Q4H PRN Administration Pain, Moderate (4-6) Sodium Chloride 100 mls @ 999 mls/hr 08/18/21 10:08 Nacl 0.9% IV KATI PRN Hypotension Sodium Chloride 100 mls @ 999 mls/hr 08/28/21 11:34 Nacl 0.9% IV KATI PRN Hypotension Insulin Glargine 25 units 08/28/21 10:00 08/28/21 22:11 Insulin Glargine 100 Units/Ml SUB-Q 25 units BID HAM Administration Insulin Human Lispro 0 unit 08/18/21 00:00 08/29/21 05:39 Insulin Lispro 100 Unit/Ml SUB-Q 3 unit Q6HR HAM Administration Protocol Levetiracetam 500 mg 08/20/21 10:00 08/28/21 09:13 Levetiracetam 500 Mg Tab PO 500 mg DAILY HAM Administration Levothyroxine Sodium 125 mcg 08/22/21 06:00 08/29/21 05:35 Levothyroxine 125 Mcg Tab PO 125 mcg QAM@0600 HAM Administration Losartan Potassium 50 mg 08/17/21 10:00 08/28/21 09:13 Losartan 50 Mg Tab PO 50 mg QDAY HAM Administration Magnesium Hydroxide 30 ml 08/17/21 04:09 08/23/21 23:56 Magnesium Hydroxide (Mom) Oral Liqd Udc PO 30 ml Q4H PRN Administration Constipation Metoprolol Tartrate 100 mg 08/20/21 11:00 08/28/21 22:10 Metoprolol Tartrate 100 Mg Tab PO 100 mg BID HAM Administration Ondansetron HCl 4 mg 08/17/21 04:09 Ondansetron 4 Mg/2 Ml Inj IV Q8H PRN Nausea And Vomiting Simple Syrup 15 ml 08/26/21 16:00 Simple Syrup 15 Ml FEEDTUBE PRN PRN Hypoglycemia Simple Syrup 30 ml 08/26/21 16:00 Simple Syrup 15 Ml FEEDTUBE PRN PRN Hypoglycemia Sodium Bicarbonate 325 mg 08/26/21 16:00 Sodium Bicarbonate 325 Mg Tab FEEDTUBE PRN PRN For Clogged Feeding Tube Sodium Chloride 10 ml 08/17/21 10:00 08/28/21 22:11 Sodium Chloride 0.9% 10 Ml Flush Syringe IV 10 ml BID HAM Administration Sodium Chloride 10 ml 08/17/21 04:09 08/19/21 02:59 Sodium Chloride 0.9% 10 Ml Flush Syringe IV 10 ml PRN PRN Administration LINE FLUSH Nutrition/Malnutrition Assess - Dietary Evaluation Nutrition/Malnutrition Findings: Nutrition Notes Start: 08/17/21 12:51 Freq: Status: Active Protocol: Document 08/26/21 14:55 LOLY (Rec: 08/26/21 14:58 LOLY [id number]) Nutrition Notes Initial or Follow up Reassessment Current Diagnosis CKD (stage V CKD),Diabetes, Hypertension,Stroke Other Pertinent Diagnosis RUE AV graft thrombosis, Dysphagia Current Diet NPO Labs/Tests POC Glu: 191, 197 Pertinent Medications Reviewed Height 5 ft 8 in Weight 83.1 kg [place] Body Weight (kg) 63.63 BMI 27.8 Weight change and time frame Wt change noted Weight Status Overweight Subjective/Other Information Pt NPO for pending procedure. Burn Absent Trauma Absent #1 Nutrition Diagnosis Inadequate oral intake Diagnosis Progress(for reassessment Continues documentation) Is patient on ventilator? No Is Patient Ambulatory and/or Out of Bed No REE-([facility]-confined to bed) 1844.532 Calculation Used for Recommendations [facility] Additional Notes Pro needs >1.2g/kg:>100g/day Fluid needs 1-1.5L/day Nutrition Intervention Nutrition Support: Resume TF when medically feasible Goal #1 Restart TF to meet nutrient needs Follow-Up By: 08/29/21 Additional Comments F/U: TF restart/tolerance, wt
[2021-08-29] MEDS: CITALOPRAM 20 MG TAB PO SCH (15:03)
[2021-08-29] MEDS: levETIRAcetam 500 MG TAB PO SCH (15:04)
[2021-08-29] MEDS: FAMOTIDINE 20 MG TAB FEEDTUBE SCH (15:04)
[2021-08-29] MEDS: ASPIRIN 325 MG TAB FEEDTUBE SCH (15:04)
[2021-08-29] MEDS: LOSARTAN 50 MG TAB PO SCH (15:05)
[2021-08-29] MEDS: METOPROLOL TARTRATE 100 MG TAB PO SCH ×2 (15:12→22:41)
[2021-08-29] MEDS: cloNIDine 0.2 MG TAB PO SCH (15:30)
[2021-08-29] MEDS ORDERED: ALBUTEROL 8.5 GM MDI INHALATION IH PRN (15:34)
[2021-08-29] MEDS: amLODIPine 10 MG TAB PO SCH (15:34)
[2021-08-29] MEDS: ACETAMINOPHEN 325 MG TAB PO PRN (16:58)
[2021-08-29] MEDS ORDERED: ALBUTEROL 2.5 MG/3 ML NEBU IH PRN (20:00)
[2021-08-29] MEDS: ALBUTEROL 2.5 MG/3 ML NEBU IH SCH (21:24)
--- NOTE | 2021-08-29 21:47 | XRay Report ---
ABDOMEN 1 VIEW 08/29/2021 8:26 PM INDICATION / CLINICAL INFORMATION: Feeding tube placement. COMPARISON: 08/28/21 FINDINGS: TUBES / LINES: Weighted feeding tube is present in the mid stomach. BOWEL GAS PATTERN: Contrast is present throughout the colon. FREE AIR / EXTRALUMINAL GAS: None. ADDITIONAL FINDINGS: No significant additional findings. IMPRESSION: 1. Feeding tube in expected position. Signer Name: Clair Ramos MD Signed: 08/29/2021 9:43 PM Workstation Name: [id number]
[2021-08-29] MEDS: cloNIDine 0.1 MG TAB PO SCH (22:42)
[2021-08-30] MEDS: INSULIN LISPRO 100 UNIT/ML SUB-Q SCH ×4 (00:38→17:35)
[2021-08-30] MEDS: HYDROmorphone 0.5 MG/0.5 ML INJ IV PRN ×5 (02:34→21:33)
[2021-08-30] MEDS: HALOPERIDOL LACTATE 5 MG/1 ML INJ IV PRN (02:34)
[2021-08-30 05:31] LABS: Basophils # (Auto) 0.2 K/mm3 (0.0-0.1); Basophils % (Auto) 1.4 % (0.0-1.8); Eosinophils # (Auto) 0.4 K/mm3 (0.0-0.4); Eosinophils % (Auto) 3.4 % (0.0-4.3); Hematocrit 35.8 % (30.3-42.9); Hemoglobin 11.5 gm/dl (10.1-14.3); Lymphocytes # (Auto) 2.7 K/mm3 (1.2-5.4); Lymphocytes % (Auto) 24.9 % (13.4-35.0); Mean Corpuscular HGB Conc 32 % (30-34); Mean Corpuscular Volume 85 fl (79-97); Monocytes # (Auto) 1.4 K/mm3 (0.0-0.8); Monocytes % (Auto) 12.7 % (0.0-7.3); Platelet Count 195 K/mm3 (140-440); Red Blood Count 4.23 M/mm3 (3.65-5.03)
[2021-08-30 05:36] LABS: Red Cell Distribution Width 20.2 % (13.2-15.2)
[2021-08-30 05:47] LABS: Albumin 3.9 g/dL (3.9-5); Calcium 10.8 mg/dL (8.4-10.2)
[2021-08-30] MEDS: HEPARIN 5,000 UNIT/1 ML VIAL SUB-Q SCH ×3 (05:54→21:33)
[2021-08-30] MEDS: ALBUTEROL 2.5 MG/3 ML NEBU IH SCH ×3 (08:00→21:56)
[2021-08-30] MEDS: cloNIDine 0.1 MG TAB PO SCH ×3 (08:08→20:25)
[2021-08-30] MEDS: hydrALAZINE 100 MG TAB PO SCH ×3 (10:00→20:25)
[2021-08-30] MEDS: ASPIRIN 325 MG TAB FEEDTUBE SCH (11:06)
[2021-08-30] MEDS: METOPROLOL TARTRATE 100 MG TAB PO SCH ×2 (11:06→21:33)
[2021-08-30] MEDS: levETIRAcetam 500 MG TAB PO SCH (11:06)
[2021-08-30] MEDS: amLODIPine 10 MG TAB PO SCH (11:06)
[2021-08-30] MEDS: CITALOPRAM 20 MG TAB PO SCH (11:07)
[2021-08-30] MEDS: LOSARTAN 50 MG TAB PO SCH (11:07)
[2021-08-30] MEDS: FAMOTIDINE 20 MG TAB FEEDTUBE SCH (11:07)
[2021-08-30] MEDS: INSULIN GLARGINE 100 UNITS/ML SUB-Q SCH ×2 (11:07→21:33)
--- NOTE | 2021-08-30 11:11 | Progress Note ---
Assessment and Plan ESRD - HD in am HTN - F/u on meds HyperCalcemia - Low Ca bath on HD HD Access - S/p thrombectomy & stable. Rt Femoral Vascath removed Subjective Date of service: 08/30/21 Principal diagnosis: Possible Sepsis; DKA; AMS; h/o CVA left hemiparesis; ESRD on Dialysis; HTN Interval history: No complaint Objective - Vital Signs Vital signs: Vital Signs - 12hr 08/30/21 08/30/21 08/30/21 00:08 04:41 07:39 Temperature 98.7 F 99.0 F 98.7 F Pulse Rate 66 70 78 Respiratory 16 16 Rate Blood Pressure 128/66 142/76 153/78 O2 Sat by Pulse 97 100 99 Oximetry 08/30/21 07:56 Temperature Pulse Rate Respiratory Rate Blood Pressure O2 Sat by Pulse 98 Oximetry - General Appearance General appearance: other (Awake & alert) EENT: PERRL, hearing intact Neck: no JVD Respiratory: Present: Clear to Ascultation Cardiology: regular, S1S2 Gastrointestinal: other (Soft) Neurologic: alert and oriented x3 - Lab 08/30/21 05:12 08/30/21 05:12 Most recent lab results Calcium 10.8 mg/dL (8.4-10.2) H 08/30/21 05:12 Phosphorus 6.00 mg/dL (2.5-4.5) H 08/30/21 05:12 Magnesium 2.80 mg/dL (1.7-2.3) H 08/30/21 05:12 Medications & Allergies - Medications Allergies/Adverse Reactions: Allergies vancomycin Adverse Reaction (Verified 04/02/13 10:16) Hives Home Medications: Home Medications Medication Instructions Recorded Confirmed Last Taken Type Hydralazine HCl [hydrALAZINE] 100 mg PO BID 04/02/13 08/17/21 04/02/13 08:00 History Aspirin/Dipyridamole [Aggrenox] 1 cap PO BID #60 capsule 04/10/13 08/17/21 U nknown Rx Cinacalcet [Sensipar] 60 mg PO QDAY 08/17/21 08/17/21 Unknown History Citalopram [celeXA] 20 mg PO QDAY 08/17/21 08/17/21 Unknown History Gabapentin [Neurontin] 100 mg PO Q8HR 08/17/21 08/17/21 Unknown History Insulin Glargine,Hum.rec.anlog 55 unit SQ BID 08/17/21 08/17/21 Unknown History [Lantus Solostar] Promethazine [Phenergan] 25 mg PO Q6HR PRN 08/17/21 08/17/21 Unknown History Sevelamer Carbonate [Renvela] 800 mg PO TIDWM 08/17/21 08/17/21 Unknown History amLODIPine [Norvasc] 10 mg PO DAILY 08/17/21 08/17/21 Unknown History carvediloL [Coreg] 25 mg PO BID 08/17/21 08/17/21 Unknown History Albuterol Mdi (or & Nicu Only) 2 puff IH QID PRN 08/29/21 08/29/21 Unknown History [ProAir HFA Inhaler] AtorvaSTATin [Lipitor] 40 mg PO QHS 08/29/21 08/29/21 Unknown History Cetirizine HCl [Zyrtec 10mg tab] 10 mg PO QDAY 08/29/21 08/29/21 Unknown History Ferric Citrate (Nf) [Auryxia] 210 mg PO TID 08/29/21 08/29/21 Unknown History Fluticasone [Flonase] 2 spray NS QDAY PRN 08/29/21 08/29/21 Unknown History Furosemide [Lasix TAB] 40 mg PO QDAY 08/29/21 08/29/21 Unknown History Insulin Aspart (Nf) [NovoLOG 15 units SQ TIDAC 08/29/21 08/29/21 Unknown History Flexpen] Metoclopramide [Reglan] 10 mg PO HS 08/29/21 08/29/21 Unknown History Pantoprazole [Protonix] 40 mg PO QDAY 08/29/21 08/29/21 Unknown History Prochlorperazine Maleate 10 mg PO QDAY PRN 08/29/21 08/29/21 Unknown History [Compazine] Sucroferric Oxyhydroxide(Nf) 500 mg PO TIDWM 08/29/21 08/29/21 Unknown History [Velphoro (Nf)] cloNIDine [Catapres] 0.1 mg PO TID 08/29/21 08/29/21 Unknown History Active Medications: Generic Name Dose Route Start Last Admin Trade Name Freq PRN Reason Stop Dose Admin Acetaminophen 650 mg 08/17/21 07:50 08/29/21 16:58 Acetaminophen 325 Mg Tab PO 650 mg Q6H PRN Administration Pain, Mild (1-3) Acetaminophen 650 mg 08/17/21 08:17 08/17/21 14:49 Acetaminophen 650 Mg Rect Supp [place] 650 mg Q4H PRN Administration Pain, Mild (1-3) Albuterol 2.5 mg 08/29/21 20:00 08/29/21 21:24 Albuterol 2.5 Mg/3 Ml Nebu IH 2.5 mg QIDRT HAM Administration Albuterol 2.5 mg 08/29/21 20:00 Albuterol 2.5 Mg/3 Ml Nebu IH Q4HRT PRN Shortness Of Breath Amlodipine Besylate 10 mg 08/22/21 11:00 08/29/21 15:34 Amlodipine 10 Mg Tab PO 10 mg QDAY HAM Administration Lipase/Protease/Amylase 1 each 08/26/21 16:00 Lipase 10,500/Protease 25,000/Amylase 43,750 (Units) Dr Lopez FEEDTUBE PRN PRN For Clogged Feeding Tube Aspirin 325 mg 08/22/21 10:00 08/29/21 15:04 Aspirin 325 Mg Tab FEEDTUBE 325 mg QDAY HAM Administration Atorvastatin Calcium 40 mg 08/29/21 22:00 08/29/21 22:41 Atorvastatin 40 Mg Tab PO 40 mg QHS HAM Administration Citalopram Hydrobromide 20 mg 08/22/21 11:00 08/29/21 15:03 Citalopram 20 Mg Tab PO 20 mg QDAY HAM Administration Clonidine HCl 0.1 mg 08/29/21 20:00 08/29/21 22:42 Clonidine 0.1 Mg Tab PO 0.1 mg TID HAM Administration Dextrose 50 ml 08/17/21 23:37 Dextrose 50% In Water (25gm) 50 Ml Syringe IV Q30MIN PRN Hypoglycemia Protocol Duloxetine HCl 30 mg 08/21/21 10:00 08/23/21 17:08 Duloxetine 30 Mg Cap PO Not Given QDAY HAM Famotidine 20 mg 08/20/21 10:00 08/29/21 15:04 Famotidine 20 Mg Tab FEEDTUBE 20 mg QDAY HAM Administration Haloperidol Lactate 5 mg 08/19/21 12:00 08/30/21 02:34 Haloperidol Lactate 5 Mg/1 Ml Inj IV 5 mg Q6H PRN Administration Agitation Heparin Sodium (Porcine) 5,000 unit 08/17/21 06:00 08/30/21 05:54 Heparin 5,000 Unit/1 Ml Vial SUB-Q 5,000 unit Q8HR HAM Administration Heparin Sodium (Porcine) 3,000 unit 08/17/21 07:41 Heparin 10,000 Units/10 Ml Vial IV KATI PRN hemodialysis Hydralazine HCl 100 mg 08/17/21 09:00 08/29/21 22:41 Hydralazine 100 Mg Tab PO 100 mg TID HAM Administration Hydralazine HCl 10 mg 08/17/21 07:56 08/25/21 05:19 Hydralazine 20 Mg/1 Ml Inj IV 10 mg Q4HR PRN Administration Hypertension Hydromorphone HCl 0.25 mg 08/17/21 07:50 08/30/21 09:33 Hydromorphone 0.5 Mg/0.5 Ml Inj IV 0.25 mg Q4H PRN Administration Pain, Moderate (4-6) Sodium Chloride 100 mls @ 999 mls/hr 08/18/21 10:08 Nacl 0.9% IV KATI PRN Hypotension Sodium Chloride 100 mls @ 999 mls/hr 08/28/21 11:34 Nacl 0.9% IV KATI PRN Hypotension Insulin Glargine 25 units 08/28/21 10:00 08/29/21 22:41 Insulin Glargine 100 Units/Ml SUB-Q 25 units BID HAM Administration Insulin Human Lispro 0 unit 08/18/21 00:00 08/30/21 05:54 Insulin Lispro 100 Unit/Ml SUB-Q Not Given Q6HR [facility] Protocol Levetiracetam 500 mg 08/20/21 10:00 08/29/21 15:04 Levetiracetam 500 Mg Tab PO 500 mg DAILY HAM Administration Levothyroxine Sodium 125 mcg 08/22/21 06:00 08/29/21 05:35 Levothyroxine 125 Mcg Tab PO 125 mcg QAM@0600 HAM Administration Losartan Potassium 50 mg 08/17/21 10:00 08/29/21 15:05 Losartan 50 Mg Tab PO 50 mg QDAY HAM Administration Magnesium Hydroxide 30 ml 08/17/21 04:09 08/23/21 23:56 Magnesium Hydroxide (Mom) Oral Liqd Udc PO 30 ml Q4H PRN Administration Constipation Metoprolol Tartrate 100 mg 08/20/21 11:00 08/29/21 22:41 Metoprolol Tartrate 100 Mg Tab PO 100 mg BID HAM Administration Ondansetron HCl 4 mg 08/17/21 04:09 Ondansetron 4 Mg/2 Ml Inj IV Q8H PRN Nausea And Vomiting Simple Syrup 15 ml 08/26/21 16:00 Simple Syrup 15 Ml FEEDTUBE PRN PRN Hypoglycemia Simple Syrup 30 ml 08/26/21 16:00 Simple Syrup 15 Ml FEEDTUBE PRN PRN Hypoglycemia Sodium Bicarbonate 325 mg 08/26/21 16:00 Sodium Bicarbonate 325 Mg Tab FEEDTUBE PRN PRN For Clogged Feeding Tube Sodium Chloride 10 ml 08/17/21 10:00 08/29/21 22:42 Sodium Chloride 0.9% 10 Ml Flush Syringe IV 10 ml BID HAM Administration Sodium Chloride 10 ml 08/17/21 04:09 08/19/21 02:59 Sodium Chloride 0.9% 10 Ml Flush Syringe IV 10 ml PRN PRN Administration LINE FLUSH
--- NOTE | 2021-08-30 11:27 | Progress Note ---
Assessment and Plan Possible Sepsis (high grade fevers, tachycardia, acute encephalopathy, tachypnea) DKA Acute Metabolic Encephalopathy h/o CVA with left-sided deficits End Stage renal Disease on HD HTN Hypothyroidism - continue enteral nutrition via dubhoff tube @ goal rate as tolerated - continue PATIENT SERVICE REPRESENTATIVE evaluation and advance diet per their recommendations - continue strict aspiration precautions; HOB > 40 degrees - continue care as below otherwise; - continue keppra as AED - prn Haldol for delirium / agitation - prn supplemental oxygen for target O2 sats > 90% - prn bronchodilators (DG) with pulm hygiene per RT - HD/UF per nephrology prescription for toxin and volume clearance - continue to avoid nephrotoxins, renally dose all medications - continue mobility protocols to prevent pressure ulcers - PT/OT as tolerated - Wound care per RN/WCT - continue accuchecks with glycemic control per SSI for target blood glucose < 180 mg/dL - tobacco abstinence counseled at the bedside - home oxygen evaluation at discharge - GI & VTE prophylaxis - Flu & pneumovax per protocol - Pulmonary out patient follow up for PFTs and optimization of respiratory status - continue other care per attending / other consultants - prn analgesia per pain score COVID SPECIFIC INTERVENTIONS - COVID-19 PCR negative ... re-evaluate in am & prn Subjective Date of service: 08/30/21 Principal diagnosis: Possible Sepsis; DKA; AMS; h/o CVA left hemiparesis; ESRD on Dialysis; HTN Interval history: Patient is seen today for: Possible Sepsis; DKA; Acute Metabolic Encephalopathy; h/o CVA with left-sided deficits; End Stage renal Disease on HD; HTN Seen and examined at bedside; 24hour events reviewed; nursing and respiratory care staff consulted; no adverse overnight events reported to me; resting peacefully in bed; still delirious / with mild cognitive dysfunction; denies chest pain or SOB Objective Vital Signs - 12hr 08/30/21 08/30/21 08/30/21 00:08 04:41 07:39 Temperature 98.7 F 99.0 F 98.7 F Pulse Rate 66 70 78 Respiratory 16 16 Rate Blood Pressure 128/66 142/76 153/78 O2 Sat by Pulse 97 100 99 Oximetry 08/30/21 07:56 Temperature Pulse Rate Respiratory Rate Blood Pressure O2 Sat by Pulse 98 Oximetry Constitutional: no acute distress, other (middle aged obese female with normal respiratory effort at rest) Eyes: non-icteric ENT: oropharynx moist Neck: supple, no lymphadenopathy, no JVD, other (large circumference) Effort: mildly labored Ascultation: Bilateral: clear, diminished breath sounds Percussion: Bilateral: not dull Cardiovascular: regular rate and rhythm, other (S1,S2) Gastrointestinal: normoactive bowel sounds, soft, non-tender, non-distended (protuberant), other (obese) Integumentary: normal Extremities: no cyanosis, no edema, pulses normal, no ischemia or petechiae Neurologic: non-focal exam (grossly), pupils equal and round, CN II-XII normal, other (weak & ? mild delirium) Psychiatric: other (flat affect) CBC and BMP: 08/30/21 05:12 08/30/21 05:12 ABG, PT/INR, D-dimer: PT/INR, D-dimer PT 14.0 Sec. (12.2-14.9) 08/23/21 22:59 INR 0.97 (0.87-1.13) 08/23/21 22:59 D-Dimer 2695.37 ng/mlDDU (0-234) H 08/17/21 14:40 Abnormal lab findings: Abnormal Labs 08/17/21 08/17/21 08/17/21 00:33 00:33 02:07 WBC MCH RDW 19.7 H Lymph % (Auto) 10.5 L Branch % (Auto) Lymph # (Auto) 1.1 L Branch # (Auto) Baso # (Auto) Seg Neutrophils % 79.1 H Seg Neutrophils # 8.6 H D-Dimer Sodium 132 L 134 L Chloride 87.8 L 88.4 L Carbon Dioxide 21 L BUN 61 H 61 H Creatinine 10.1 H 10.3 H Glucose 594 H* 533 H* POC Glucose Hemoglobin A1c Calcium Phosphorus Magnesium ALT < 5 L Alkaline Phosphatase 182 H NT-Pro-B Natriuret Pep 80787 H Albumin HDL Cholesterol TSH Salicylates Acetaminophen 08/17/21 08/17/21 08/17/21 02:07 02:07 02:07 WBC MCH RDW Lymph % (Auto) Branch % (Auto) Lymph # (Auto) Branch # (Auto) Baso # (Auto) Seg Neutrophils % Seg Neutrophils # D-Dimer Sodium Chloride Carbon Dioxide BUN Creatinine Glucose POC Glucose Hemoglobin A1c Calcium Phosphorus Magnesium ALT Alkaline Phosphatase NT-Pro-B Natriuret Pep Albumin HDL Cholesterol TSH 5.080 H Salicylates < 0.3 L Acetaminophen 5.0 L 08/17/21 08/17/21 08/17/21 04:20 04:20 05:09 WBC MCH RDW Lymph % (Auto) Branch % (Auto) Lymph # (Auto) Branch # (Auto) Baso # (Auto) Seg Neutrophils % Seg Neutrophils # D-Dimer Sodium 136 L Chloride 90.9 L Carbon Dioxide BUN 61 H Creatinine 10.4 H Glucose 351 H POC Glucose 298 H Hemoglobin A1c Calcium Phosphorus 6.20 H Magnesium ALT Alkaline Phosphatase NT-Pro-B Natriuret Pep Albumin HDL Cholesterol TSH Salicylates Acetaminophen 08/17/21 08/17/21 08/17/21 09:58 10:53 13:14 WBC MCH RDW Lymph % (Auto) Branch % (Auto) Lymph # (Auto) Branch # (Auto) Baso # (Auto) Seg Neutrophils % Seg Neutrophils # D-Dimer Sodium Chloride Carbon Dioxide BUN Creatinine Glucose POC Glucose 139 H 162 H 145 H Hemoglobin A1c Calcium Phosphorus Magnesium ALT Alkaline Phosphatase NT-Pro-B Natriuret Pep Albumin HDL Cholesterol TSH Salicylates Acetaminophen 08/17/21 08/17/21 08/17/21 14:40 14:40 14:40 WBC MCH RDW Lymph % (Auto) Branch % (Auto) Lymph # (Auto) Branch # (Auto) Baso # (Auto) Seg Neutrophils % Seg Neutrophils # D-Dimer 2695.37 H Sodium Chloride 96.7 L Carbon Dioxide BUN 63 H Creatinine 10.7 H Glucose 145 H POC Glucose Hemoglobin A1c Calcium Phosphorus Magnesium ALT Alkaline Phosphatase NT-Pro-B Natriuret Pep Albumin HDL Cholesterol 30 L TSH Salicylates Acetaminophen 08/17/21 08/17/21 08/17/21 14:40 16:45 17:47 WBC MCH RDW Lymph % (Auto) Branch % (Auto) Lymph # (Auto) Branch # (Auto) Baso # (Auto) Seg Neutrophils % Seg Neutrophils # D-Dimer Sodium Chloride 96.2 L Carbon Dioxide BUN 44 H Creatinine 7.2 H Glucose 167 H POC Glucose 136 H 165 H Hemoglobin A1c Calcium Phosphorus Magnesium ALT Alkaline Phosphatase NT-Pro-B Natriuret Pep Albumin HDL Cholesterol TSH Salicylates Acetaminophen 0508/17/21 08/17/21 18:01 21:01 22:40 WBC MCH RDW Lymph % (Auto) Branch % (Auto) Lymph # (Auto) Branch # (Auto) Baso # (Auto) Seg Neutrophils % Seg Neutrophils # D-Dimer Sodium Chloride 97.1 L 96.4 L Carbon Dioxide BUN 39 H 40 H Creatinine 8.0 H 8.5 H Glucose 122 H 109 H POC Glucose 172 H Hemoglobin A1c Calcium Phosphorus Magnesium ALT Alkaline Phosphatase NT-Pro-B Natriuret Pep Albumin HDL Cholesterol TSH Salicylates Acetaminophen 08/17/21 08/18/21 08/18/21 22:40 02:13 04:56 WBC MCH 27 L RDW 19.7 H Lymph % (Auto) Branch % (Auto) Lymph # (Auto) Branch # (Auto) Baso # (Auto) Seg Neutrophils % Seg Neutrophils # D-Dimer Sodium Chloride 96.8 L Carbon Dioxide BUN 44 H Creatinine 9.3 H Glucose 170 H POC Glucose 190 H Hemoglobin A1c Calcium Phosphorus 6.70 H Magnesium ALT Alkaline Phosphatase NT-Pro-B Natriuret Pep Albumin HDL Cholesterol TSH Salicylates Acetaminophen 08/18/21 08/18/21 08/18/21 04:56 04:56 17:01 WBC MCH 27 L RDW 19.7 H Lymph % (Auto) Branch % (Auto) 9.7 H Lymph # (Auto) Branch # (Auto) Baso # (Auto) Seg Neutrophils % Seg Neutrophils # D-Dimer Sodium Chloride Carbon Dioxide BUN Creatinine Glucose POC Glucose 228 H Hemoglobin A1c 10.2 H Calcium Phosphorus Magnesium ALT Alkaline Phosphatase NT-Pro-B Natriuret Pep Albumin HDL Cholesterol TSH Salicylates Acetaminophen 08/18/21 08/19/21 08/19/21 23:58 04:37 04:37 WBC MCH 27 L RDW 19.5 H Lymph % (Auto) Branch % (Auto) Lymph # (Auto) Branch # (Auto) Baso # (Auto) Seg Neutrophils % Seg Neutrophils # D-Dimer Sodium Chloride 96.7 L Carbon Dioxide 21 L BUN 57 H Creatinine 10.2 H Glucose 151 H POC Glucose 192 H Hemoglobin A1c Calcium Phosphorus Magnesium ALT Alkaline Phosphatase NT-Pro-B Natriuret Pep Albumin HDL Cholesterol TSH Salicylates Acetaminophen 08/19/21 08/19/21 08/20/21 17:46 22:59 04:24 WBC MCH RDW Lymph % (Auto) Branch % (Auto) Lymph # (Auto) Branch # (Auto) Baso # (Auto) Seg Neutrophils % Seg Neutrophils # D-Dimer Sodium 133 L Chloride 87.9 L Carbon Dioxide 15 L BUN 33 H Creatinine 7.3 H Glucose 365 H POC Glucose 217 H 282 H Hemoglobin A1c Calcium Phosphorus 6.50 H Magnesium ALT Alkaline Phosphatase NT-Pro-B Natriuret Pep Albumin HDL Cholesterol TSH Salicylates Acetaminophen 08/20/21 08/20/21 08/20/21 06:07 07:51 15:37 WBC MCH RDW Lymph % (Auto) Branch % (Auto) Lymph # (Auto) Branch # (Auto) Baso # (Auto) Seg Neutrophils % Seg Neutrophils # D-Dimer Sodium Chloride Carbon Dioxide BUN Creatinine Glucose POC Glucose 398 H 308 H 247 H Hemoglobin A1c Calcium Phosphorus Magnesium ALT Alkaline Phosphatase NT-Pro-B Natriuret Pep Albumin HDL Cholesterol TSH Salicylates Acetaminophen 08/20/21 08/21/21 08/21/21 23:22 04:45 05:07 WBC MCH RDW Lymph % (Auto) Branch % (Auto) Lymph # (Auto) Branch # (Auto) Baso # (Auto) Seg Neutrophils % Seg Neutrophils # D-Dimer Sodium 134 L Chloride 92.9 L Carbon Dioxide BUN 48 H Creatinine 8.0 H Glucose 389 H POC Glucose 316 H 407 H Hemoglobin A1c Calcium 10.6 H Phosphorus Magnesium ALT Alkaline Phosphatase NT-Pro-B Natriuret Pep Albumin HDL Cholesterol TSH Salicylates Acetaminophen 08/21/21 08/21/21 08/21/21 11:37 15:52 23:44 WBC MCH RDW Lymph % (Auto) Branch % (Auto) Lymph # (Auto) Branch # (Auto) Baso # (Auto) Seg Neutrophils % Seg Neutrophils # D-Dimer Sodium Chloride Carbon Dioxide BUN Creatinine Glucose POC Glucose 244 H 325 H 221 H Hemoglobin A1c Calcium Phosphorus Magnesium ALT Alkaline Phosphatase NT-Pro-B Natriuret Pep Albumin HDL Cholesterol TSH Salicylates Acetaminophen 08/22/21 08/22/21 08/23/21 06:06 12:27 00:37 WBC MCH RDW Lymph % (Auto) Branch % (Auto) Lymph # (Auto) Branch # (Auto) Baso # (Auto) Seg Neutrophils % Seg Neutrophils # D-Dimer Sodium Chloride Carbon Dioxide BUN Creatinine Glucose POC Glucose 224 H 247 H 341 H Hemoglobin A1c Calcium Phosphorus Magnesium ALT Alkaline Phosphatase NT-Pro-B Natriuret Pep Albumin HDL Cholesterol TSH Salicylates Acetaminophen 08/23/21 08/23/21 08/23/21 04:20 05:37 11:56 WBC MCH RDW Lymph % (Auto) Branch % (Auto) Lymph # (Auto) Branch # (Auto) Baso # (Auto) Seg Neutrophils % Seg Neutrophils # D-Dimer Sodium Chloride 94.4 L Carbon Dioxide BUN 49 H Creatinine 7.7 H Glucose 201 H POC Glucose 210 H 162 H Hemoglobin A1c Calcium 10.9 H Phosphorus Magnesium ALT Alkaline Phosphatase NT-Pro-B Natriuret Pep Albumin HDL Cholesterol TSH Salicylates Acetaminophen 08/23/21 08/23/21 08/23/21 17:45 22:58 22:59 WBC 12.2 H MCH 26 L RDW 20.3 H Lymph % (Auto) Branch % (Auto) Lymph # (Auto) Branch # (Auto) Baso # (Auto) Seg Neutrophils % Seg Neutrophils # D-Dimer Sodium Chloride Carbon Dioxide BUN Creatinine Glucose POC Glucose 211 H 218 H Hemoglobin A1c Calcium Phosphorus Magnesium ALT Alkaline Phosphatase NT-Pro-B Natriuret Pep Albumin HDL Cholesterol TSH Salicylates Acetaminophen 08/23/21 08/24/21 08/24/21 22:59 04:23 04:23 WBC 15.4 H MCH 27 L RDW 19.8 H Lymph % (Auto) Branch % (Auto) 13.0 H Lymph # (Auto) Branch # (Auto) 2.0 H Baso # (Auto) 0.2 H Seg Neutrophils % Seg Neutrophils # 9.8 H D-Dimer Sodium 136 L Chloride 93.0 L Carbon Dioxide BUN 73 H Creatinine 8.7 H 9.2 H Glucose 145 H POC Glucose Hemoglobin A1c Calcium 10.7 H Phosphorus 6.30 H Magnesium 2.70 H ALT 6 L Alkaline Phosphatase 157 H NT-Pro-B Natriuret Pep Albumin 3.7 L HDL Cholesterol TSH Salicylates Acetaminophen 08/24/21 08/24/21 08/24/21 05:09 11:20 18:28 WBC MCH RDW Lymph % (Auto) Branch % (Auto) Lymph # (Auto) Branch # (Auto) Baso # (Auto) Seg Neutrophils % Seg Neutrophils # D-Dimer Sodium Chloride Carbon Dioxide BUN Creatinine Glucose POC Glucose 155 H 110 H 182 H Hemoglobin A1c Calcium Phosphorus Magnesium ALT Alkaline Phosphatase NT-Pro-B Natriuret Pep Albumin HDL Cholesterol TSH Salicylates Acetaminophen 08/25/21 08/25/21 08/25/21 00:15 04:44 11:28 WBC 11.3 H MCH 27 L RDW 20.4 H Lymph % (Auto) Branch % (Auto) Lymph # (Auto) Branch # (Auto) Baso # (Auto) Seg Neutrophils % Seg Neutrophils # D-Dimer Sodium Chloride Carbon Dioxide BUN Creatinine Glucose POC Glucose 247 H 189 H Hemoglobin A1c Calcium Phosphorus Magnesium ALT Alkaline Phosphatase NT-Pro-B Natriuret Pep Albumin HDL Cholesterol TSH Salicylates Acetaminophen 08/25/21 08/25/21 08/26/21 16:42 23:29 05:22 WBC MCH RDW Lymph % (Auto) Branch % (Auto) Lymph # (Auto) Branch # (Auto) Baso # (Auto) Seg Neutrophils % Seg Neutrophils # D-Dimer Sodium Chloride Carbon Dioxide BUN Creatinine 10.0 H Glucose POC Glucose 169 H 213 H Hemoglobin A1c Calcium Phosphorus Magnesium ALT Alkaline Phosphatase NT-Pro-B Natriuret Pep Albumin HDL Cholesterol TSH Salicylates Acetaminophen 08/26/21 08/26/21 08/26/21 06:12 11:47 23:33 WBC MCH RDW Lymph % (Auto) Branch % (Auto) Lymph # (Auto) Branch # (Auto) Baso # (Auto) Seg Neutrophils % Seg Neutrophils # D-Dimer Sodium Chloride Carbon Dioxide BUN Creatinine Glucose POC Glucose 191 H 197 H 197 H Hemoglobin A1c Calcium Phosphorus Magnesium ALT Alkaline Phosphatase NT-Pro-B Natriuret Pep Albumin HDL Cholesterol TSH Salicylates Acetaminophen 08/27/21 08/27/21 08/27/21 06:02 06:02 06:17 WBC MCH 27 L RDW 20.1 H Lymph % (Auto) Branch % (Auto) 14.2 H Lymph # (Auto) Branch # (Auto) 1.4 H Baso # (Auto) Seg Neutrophils % Seg Neutrophils # D-Dimer Sodium 134 L Chloride 93.8 L Carbon Dioxide BUN 56 H Creatinine 6.4 H Glucose 253 H POC Glucose 250 H Hemoglobin A1c Calcium Phosphorus 6.00 H Magnesium 2.50 H ALT < 5 L Alkaline Phosphatase 135 H NT-Pro-B Natriuret Pep Albumin 3.6 L HDL Cholesterol TSH Salicylates Acetaminophen 08/27/21 08/27/21 08/27/21 11:21 16:05 23:13 WBC MCH RDW Lymph % (Auto) Branch % (Auto) Lymph # (Auto) Branch # (Auto) Baso # (Auto) Seg Neutrophils % Seg Neutrophils # D-Dimer Sodium Chloride Carbon Dioxide BUN Creatinine Glucose POC Glucose 287 H 321 H 286 H Hemoglobin A1c Calcium Phosphorus Magnesium ALT Alkaline Phosphatase NT-Pro-B Natriuret Pep Albumin HDL Cholesterol TSH Salicylates Acetaminophen 08/28/21 08/28/21 08/28/21 05:11 05:29 11:30 WBC MCH RDW Lymph % (Auto) Branch % (Auto) Lymph # (Auto) Branch # (Auto) Baso # (Auto) Seg Neutrophils % Seg Neutrophils # D-Dimer Sodium 134 L Chloride 91.8 L Carbon Dioxide BUN 79 H Creatinine 8.2 H Glucose 230 H POC Glucose 225 H 190 H Hemoglobin A1c Calcium 10.8 H Phosphorus Magnesium ALT Alkaline Phosphatase NT-Pro-B Natriuret Pep Albumin HDL Cholesterol TSH Salicylates Acetaminophen 08/28/21 08/29/21 08/29/21 15:53 00:04 04:29 WBC MCH 27 L RDW 20.6 H Lymph % (Auto) Branch % (Auto) Lymph # (Auto) Branch # (Auto) Baso # (Auto) Seg Neutrophils % Seg Neutrophils # D-Dimer Sodium Chloride Carbon Dioxide BUN Creatinine Glucose POC Glucose 235 H 223 H Hemoglobin A1c Calcium Phosphorus Magnesium ALT Alkaline Phosphatase NT-Pro-B Natriuret Pep Albumin HDL Cholesterol TSH Salicylates Acetaminophen 08/29/21 08/29/21 08/29/21 04:29 05:37 16:14 WBC MCH RDW Lymph % (Auto) Branch % (Auto) Lymph # (Auto) Branch # (Auto) Baso # (Auto) Seg Neutrophils % Seg Neutrophils # D-Dimer Sodium Chloride Carbon Dioxide BUN Creatinine 9.8 H Glucose POC Glucose 174 H 200 H Hemoglobin A1c Calcium Phosphorus Magnesium ALT Alkaline Phosphatase NT-Pro-B Natriuret Pep Albumin HDL Cholesterol TSH Salicylates Acetaminophen 08/30/21 08/30/21 08/30/21 00:10 05:12 05:12 WBC MCH 27 L RDW 20.2 H Lymph % (Auto) Branch % (Auto) 12.7 H Lymph # (Auto) Branch # (Auto) 1.4 H Baso # (Auto) 0.2 H Seg Neutrophils % Seg Neutrophils # D-Dimer Sodium Chloride 97.5 L Carbon Dioxide BUN 58 H Creatinine 6.9 H Glucose 112 H POC Glucose 111 H Hemoglobin A1c Calcium 10.8 H Phosphorus 6.00 H Magnesium 2.80 H ALT Alkaline Phosphatase 147 H NT-Pro-B Natriuret Pep Albumin HDL Cholesterol TSH Salicylates Acetaminophen Allied health notes reviewed: nursing
--- NOTE | 2021-08-30 11:56 | Progress Note ---
Assessment and Plan Assessment and plan: #Right upper extremity AV graft thrombosis #End Stage Renal Disease requiring hemodialysis -s/p AVF declotting 08/26 via IR/Vascular surgery -s/p vascular surgery/ thrombectomy of right arm AV loop graft. -temporary vasc cath removed 08/26 -continue HD per Nephro -avoid nephrotoxic medications; Renally dose medications #DKA (Diabetic Ketoacidosis)-resolved #Type II diabetes, insulin dependent -s/p insulin gtt -Hgb A1C 10.2% -continue lantus 25U BID, continue SSI and BG Q6hrs since NPO -goal glucose 140-180 while inpatient #Sepsis ruled out -patient afebrile, WBC normalizing -Blood cultures with NGTD x 5days -s/p IV abx, none needed due to no infectious process found -ID on consulted, signed off #Acute Metabolic Encephalopathy-improving #H/o CVA (cerebral infarction) with left-sided deficits -Multifactorial, DKA vs azotemia vs infectious process -Awake and tracking and following commands this morning -CT head and MRI brain noted with no acute abnormality -Neurology consulted, appreciated recommendations -c/f seizure, continue Keppra -PRN Haldol for agitation -Fall and safety precaution -Aspiration precaution -Frequent reorientation -Avoid benzodiazepine to reduce the possibility of delirium -Maintenance of sleep-wake cycle -PT/OT/Speech ordered #Hypertension -PO antihypertensives held due to AMS -Speech therapy re-evaluation ordered -PRN Hydralazine and Labetalol for SBP greater than 160 #Elevated D-Dimer #H/o DVT -BLE doppler showed no evidence for acute DVT in either lower extremity. 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 -Per patient's mother, patient has been off coumadin for a couple of years -Continue Heparin SubQ -low suspicion for PE, will order V/Q scan if return of fever, dyspnea -Patient might benefit from PO AC at discharge, awaiting Vascular surgery recommendations #Hypothyroidism -continue synthroid #Dysphagia-improving -Patient failed initial speech eval due to mental status -continue TF with pureed diet for now, Nutrition following #GI/ DVT Prophylaxis -PPI- Pepcid -heparin SubQ -SCDs to bilateral lower extremities while in bed #Discharge planning -will continue tube feedings for now with pureed diet -Plan to discharge patient to rehab if Mother agreeable History Interval history: No acute events overnight. Patient alert and oriented x4. She has no complaints at this time. Hospitalist Physical - Physical exam Narrative exam: GENERAL: Well-developed well-nourished. In no acute distress. HEENT: NG tube in place CHEST/LUNGS: CTAB on room air HEART/CARDIOVASCULAR: RRR. No murmur, rubs or gallops appreciated. ABDOMEN: +BS. NT/ND. NEURO: No focal motor deficit. Follows all commands. EXTREMITIES: Right upper extremity aVF. No cyanosis, clubbing or edema. PSYCH: Cooperative. - Constitutional Vitals: Temp Pulse Resp BP Pulse Ox 98.7 F 78 16 153/78 98 08/30/21 07:39 08/30/21 07:39 08/30/21 04:41 08/30/21 07:39 08/30/21 07:56 General appearance: Present: no acute distress, well-nourished, other (Does not respond, nonverbal, randomly moves) Results - Labs CBC & Chem 7: 08/30/21 05:12 08/30/21 05:12 Labs: Laboratory Last Values WBC 10.9 K/mm3 (4.5-11.0) 08/30/21 05:12 RBC 4.23 M/mm3 (3.65-5.03) 08/30/21 05:12 Hgb 11.5 gm/dl (10.1-14.3) 08/30/21 05:12 Hct 35.8 % (30.3-42.9) 08/30/21 05:12 MCV 85 fl (79-97) 08/30/21 05:12 MCH 27 pg (28-32) L 08/30/21 05:12 MCHC 32 % (30-34) 08/30/21 05:12 RDW 20.2 % (13.2-15.2) H 08/30/21 05:12 Plt Count 195 K/mm3 (140-440) 08/30/21 05:12 Lymph % (Auto) 24.9 % (13.4-35.0) 08/30/21 05:12 [place] % (Auto) 12.7 % (0.0-7.3) H 08/30/21 05:12 Eos % (Auto) 3.4 % (0.0-4.3) 08/30/21 05:12 Baso % (Auto) 1.4 % (0.0-1.8) 08/30/21 05:12 Lymph # (Auto) 2.7 K/mm3 (1.2-5.4) 08/30/21 05:12 [place] # (Auto) 1.4 K/mm3 (0.0-0.8) H 08/30/21 05:12 Eos # (Auto) 0.4 K/mm3 (0.0-0.4) 08/30/21 05:12 Baso # (Auto) 0.2 K/mm3 (0.0-0.1) H 08/30/21 05:12 Seg Neutrophils % 57.6 % (40.0-70.0) 08/30/21 05:12 Seg Neutrophils # 6.3 K/mm3 (1.8-7.7) 08/30/21 05:12 PT 14.0 Sec. (12.2-14.9) 08/23/21 22:59 INR 0.97 (0.87-1.13) 08/23/21 22:59 APTT 27.9 Sec. (24.2-36.6) 08/23/21 22:59 D-Dimer 2695.37 ng/mlDDU (0-234) H 08/17/21 14:40 Sodium 138 mmol/L (137-145) 08/30/21 05:12 Potassium 4.2 mmol/L (3.6-5.0) 08/30/21 05:12 Chloride 97.5 mmol/L (98-107) L 08/30/21 05:12 Carbon Dioxide 26 mmol/L (22-30) 08/30/21 05:12 Anion Gap 19 mmol/L 08/30/21 05:12 BUN 58 mg/dL (7-17) H 08/30/21 05:12 Creatinine 6.9 mg/dL (0.6-1.2) H 08/30/21 05:12 Estimated GFR 8 ml/min 08/30/21 05:12 BUN/Creatinine Ratio 8 % 08/30/21 05:12 Glucose 112 mg/dL (65-100) H 08/30/21 05:12 POC Glucose 102 mg/dL (70-105) 08/30/21 05:28 Hemoglobin A1c 10.2 % (4-6) H 08/18/21 04:56 Lactic Acid 1.70 mmol/L (0.7-2.0) 08/17/21 02:07 Calcium 10.8 mg/dL (8.4-10.2) H 08/30/21 05:12 Phosphorus 6.00 mg/dL (2.5-4.5) H 08/30/21 05:12 Magnesium 2.80 mg/dL (1.7-2.3) H 08/30/21 05:12 Total Bilirubin 0.30 mg/dL (0.1-1.2) 08/30/21 05:12 AST 32 units/L (5-40) 08/30/21 05:12 ALT 8 units/L (7-56) 08/30/21 05:12 Alkaline Phosphatase 147 units/L (35-129) H 08/30/21 05:12 NT-Pro-B Natriuret Pep 66209 pg/mL (0-450) H 08/17/21 02:07 Total Protein 7.6 g/dL (6.3-8.2) 08/30/21 05:12 Albumin 3.9 g/dL (3.9-5) 08/30/21 05:12 Albumin/Globulin Ratio 1.1 % 08/30/21 05:12 Triglycerides 128 mg/dL (2-149) 08/17/21 14:40 Cholesterol 128 mg/dL (50-199) 08/17/21 14:40 LDL Cholesterol Direct 69 mg/dL (50-130) 08/17/21 14:40 HDL Cholesterol 30 mg/dL (40-59) L 08/17/21 14:40 Cholesterol/HDL Ratio 4.26 % 08/17/21 14:40 TSH 5.080 mlU/mL (0.270-4.200) H 08/17/21 02:07 Salicylates < 0.3 mg/dL (2.8-20.0) L 08/17/21 02:07 Acetaminophen 5.0 ug/mL (10.0-30.0) L 08/17/21 02:07 Plasma/Serum Alcohol < 0.01 % (0-0.07) 08/17/21 02:07 SARS-CoV-2 (PCR) Negative (Negative) 08/17/21 09:12 Hepatitis A IgM Ab Non-reactive (NonReactive) 08/17/21 14:40 Hep Bs Antigen Non-reactive (Negative) 08/17/21 14:40 Hep B Core IgM Ab Non-reactive (NonReactive) 08/17/21 14:40 Hepatitis C Antibody Non-reactive (NonReactive) 08/17/21 14:40 Blood Type O POSITIVE 08/17/21 17:43 Antibody Screen Negative 08/17/21 17:43 Tomas/IV: Voiding Method External Female Catheter Active Medications - Current Medications Current Medications: Generic Name Dose Route Start Last Admin Trade Name Freq PRN Reason Stop Dose Admin Acetaminophen 650 mg 08/17/21 07:50 08/29/21 16:58 Acetaminophen 325 Mg Tab PO 650 mg Q6H PRN Administration Pain, Mild (1-3) Acetaminophen 650 mg 08/17/21 08:17 08/17/21 14:49 Acetaminophen 650 Mg Rect Supp [place] 650 mg Q4H PRN Administration Pain, Mild (1-3) Albuterol 2.5 mg 08/29/21 20:00 08/29/21 21:24 Albuterol 2.5 Mg/3 Ml Nebu IH 2.5 mg QIDRT HAM Administration Albuterol 2.5 mg 08/29/21 20:00 Albuterol 2.5 Mg/3 Ml Nebu IH Q4HRT PRN Shortness Of Breath Amlodipine Besylate 10 mg 08/22/21 11:00 08/30/21 11:06 Amlodipine 10 Mg Tab PO 10 mg QDAY HAM Administration Lipase/Protease/Amylase 1 each 08/26/21 16:00 Lipase 10,500/Protease 25,000/Amylase 43,750 (Units) Dr Lopez FEEDTUBE PRN PRN For Clogged Feeding Tube Aspirin 325 mg 08/22/21 10:00 08/30/21 11:06 Aspirin 325 Mg Tab FEEDTUBE 325 mg QDAY HAM Administration Atorvastatin Calcium 40 mg 08/29/21 22:00 08/29/21 22:41 Atorvastatin 40 Mg Tab PO 40 mg QHS HAM Administration Citalopram Hydrobromide 20 mg 08/22/21 11:00 08/30/21 11:07 Citalopram 20 Mg Tab PO 20 mg QDAY HAM Administration Clonidine HCl 0.1 mg 08/29/21 20:00 08/30/21 08:08 Clonidine 0.1 Mg Tab PO 0.1 mg TID HAM Administration Dextrose 50 ml 08/17/21 23:37 Dextrose 50% In Water (25gm) 50 Ml Syringe IV Q30MIN PRN Hypoglycemia Protocol Duloxetine HCl 30 mg 08/21/21 10:00 08/23/21 17:08 Duloxetine 30 Mg Cap PO Not Given QDAY HAM Famotidine 20 mg 08/20/21 10:00 08/30/21 11:07 Famotidine 20 Mg Tab FEEDTUBE 20 mg QDAY HAM Administration Haloperidol Lactate 5 mg 08/19/21 12:00 08/30/21 02:34 Haloperidol Lactate 5 Mg/1 Ml Inj IV 5 mg Q6H PRN Administration Agitation Heparin Sodium (Porcine) 5,000 unit 08/17/21 06:00 08/30/21 05:54 Heparin 5,000 Unit/1 Ml Vial SUB-Q 5,000 unit Q8HR HAM Administration Heparin Sodium (Porcine) 3,000 unit 08/17/21 07:41 Heparin 10,000 Units/10 Ml Vial IV KATI PRN hemodialysis Hydralazine HCl 100 mg 08/17/21 09:00 08/30/21 10:00 Hydralazine 100 Mg Tab PO 100 mg TID HAM Administration Hydralazine HCl 10 mg 08/17/21 07:56 08/25/21 05:19 Hydralazine 20 Mg/1 Ml Inj IV 10 mg Q4HR PRN Administration Hypertension Hydromorphone HCl 0.25 mg 08/17/21 07:50 08/30/21 09:33 Hydromorphone 0.5 Mg/0.5 Ml Inj IV 0.25 mg Q4H PRN Administration Pain, Moderate (4-6) Sodium Chloride 100 mls @ 999 mls/hr 08/30/21 12:00 Nacl 0.9% IV KATI PRN Hypotension Insulin Glargine 25 units 08/28/21 10:00 08/30/21 11:07 Insulin Glargine 100 Units/Ml SUB-Q 25 units BID HAM Administration Insulin Human Lispro 0 unit 08/18/21 00:00 08/30/21 05:54 Insulin Lispro 100 Unit/Ml SUB-Q Not Given Q6HR [facility] Protocol Levetiracetam 500 mg 08/20/21 10:00 08/30/21 11:06 Levetiracetam 500 Mg Tab PO 500 mg DAILY HAM Administration Levothyroxine Sodium 125 mcg 08/22/21 06:00 08/29/21 05:35 Levothyroxine 125 Mcg Tab PO 125 mcg QAM@0600 HAM Administration Losartan Potassium 50 mg 08/17/21 10:00 08/30/21 11:07 Losartan 50 Mg Tab PO 50 mg QDAY HAM Administration Magnesium Hydroxide 30 ml 08/17/21 04:09 08/23/21 23:56 Magnesium Hydroxide (Mom) Oral Liqd Udc PO 30 ml Q4H PRN Administration Constipation Metoprolol Tartrate 100 mg 08/20/21 11:00 08/30/21 11:06 Metoprolol Tartrate 100 Mg Tab PO 100 mg BID HAM Administration Ondansetron HCl 4 mg 08/17/21 04:09 Ondansetron 4 Mg/2 Ml Inj IV Q8H PRN Nausea And Vomiting Simple Syrup 15 ml 08/26/21 16:00 Simple Syrup 15 Ml FEEDTUBE PRN PRN Hypoglycemia Simple Syrup 30 ml 08/26/21 16:00 Simple Syrup 15 Ml FEEDTUBE PRN PRN Hypoglycemia Sodium Bicarbonate 325 mg 08/26/21 16:00 Sodium Bicarbonate 325 Mg Tab FEEDTUBE PRN PRN For Clogged Feeding Tube Sodium Chloride 10 ml 08/17/21 10:00 08/30/21 11:08 Sodium Chloride 0.9% 10 Ml Flush Syringe IV 10 ml BID HAM Administration Sodium Chloride 10 ml 08/17/21 04:09 08/19/21 02:59 Sodium Chloride 0.9% 10 Ml Flush Syringe IV 10 ml PRN PRN Administration LINE FLUSH Nutrition/Malnutrition Assess - Dietary Evaluation Nutrition/Malnutrition Findings: Nutrition Notes Start: 08/17/21 12:51 Freq: Status: Active Protocol: Document 08/29/21 15:07 LOLY (Rec: 08/29/21 15:14 LOLY [id number]) Nutrition Notes Initial or Follow up Reassessment Current Diagnosis CKD (stage V CKD),Diabetes, Hypertension,Stroke Other Pertinent Diagnosis RUE AV graft thrombosis, Dysphagia Current Diet TF - Nepro at 40ml/hr Labs/Tests Cr 9.8 POC Glu: 223, 174 Pertinent Medications Reviewed Height 5 ft 8 in Weight 76.3 kg [place] Body Weight (kg) 63.63 BMI 25.5 Weight change and time frame Wt change noted Weight Status Overweight Subjective/Other Information Per RN, pt tolerating TF at goal rate. Percent of energy/protein needs met: 98% energy 85% pro Burn Absent Trauma Absent #1 Nutrition Diagnosis Inadequate oral intake Diagnosis Progress(for reassessment Continues documentation) Is patient on ventilator? No Is Patient Ambulatory and/or Out of Bed No REE-([place]-confined to bed) 1763.016 Calculation Used for Recommendations [facility] Additional Notes Pro needs >1.2g/kg:>92g/day Fluid needs 1-1.5L/day Nutrition Intervention Nutrition Support: Continue Nepro at 40ml/hr with 135ml water flush q4h. Kcal 1,728 Protein (gm) 78 Carbohydrates (gm) 155 Fat (gm) 92 Fluid (mL) 698 Fiber (gm) 12 Goal #1 TF tolerance Goal #2 TF to meet at least 75% energy and pro needs Follow-Up By: 09/05/21 Additional Comments F/U: stable TF, wt
[2021-08-30] MEDS ORDERED: SODIUM CHLORIDE 0.9% 100 ML IV PRN (12:00)
[2021-08-30] MEDS: ACETAMINOPHEN 325 MG TAB PO PRN (20:25)
[2021-08-31] MEDS: INSULIN LISPRO 100 UNIT/ML SUB-Q SCH ×4 (00:58→17:43)
[2021-08-31] MEDS: HYDROmorphone 0.5 MG/0.5 ML INJ IV PRN ×2 (02:54→16:39)
[2021-08-31] MEDS: HEPARIN 5,000 UNIT/1 ML VIAL SUB-Q SCH ×3 (06:46→22:21)
[2021-08-31] MEDS: LEVOTHYROXINE 125 MCG TAB PO SCH (06:46)
[2021-08-31] MEDS: CITALOPRAM 20 MG TAB PO SCH (09:10)
[2021-08-31] MEDS: HALOPERIDOL LACTATE 5 MG/1 ML INJ IV PRN (09:10)
[2021-08-31] MEDS: FAMOTIDINE 20 MG TAB FEEDTUBE SCH (09:11)
[2021-08-31] MEDS: ASPIRIN 325 MG TAB FEEDTUBE SCH (09:11)
[2021-08-31] MEDS: INSULIN GLARGINE 100 UNITS/ML SUB-Q SCH ×2 (09:11→22:22)
[2021-08-31] MEDS: levETIRAcetam 500 MG TAB PO SCH (09:11)
--- NOTE | 2021-08-31 09:12 | Progress Note ---
Assessment and Plan Assessment and plan: #Right upper extremity AV graft thrombosis #End Stage Renal Disease requiring hemodialysis -s/p AVF declotting 08/26 via IR/Vascular surgery -s/p vascular surgery/ thrombectomy of right arm AV loop graft. -temporary vasc cath removed 08/26 -continue HD per Nephro -avoid nephrotoxic medications; Renally dose medications #DKA (Diabetic Ketoacidosis)-resolved #Type II diabetes, insulin dependent -s/p insulin gtt -Hgb A1C 10.2% -continue lantus 25U BID, continue SSI and BG Q6hrs since NPO -goal glucose 140-180 while inpatient; currently controlled #Sepsis ruled out -patient afebrile, WBC normalizing -Blood cultures with NGTD x 5days -s/p IV abx, none needed due to no infectious process found -ID on consulted, signed off #Acute Metabolic Encephalopathy-improving #H/o CVA (cerebral infarction) with left-sided deficits -Multifactorial, DKA vs azotemia vs infectious process -Awake and tracking and following commands this morning -CT head and MRI brain noted with no acute abnormality -Neurology consulted, appreciated recommendations -c/f seizure, continue Keppra -PRN Haldol for agitation -Fall and safety precaution -Aspiration precaution -Frequent reorientation -Avoid benzodiazepine to reduce the possibility of delirium -Maintenance of sleep-wake cycle -PT/OT/Speech ordered #Hypertension -PO antihypertensives held due to AMS -Speech therapy re-evaluation ordered -PRN Hydralazine and Labetalol for SBP greater than 160 #Elevated D-Dimer #H/o DVT -BLE doppler showed no evidence for acute DVT in either lower extremity. 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 -Per patient's mother, patient has been off coumadin for a couple of years -Continue Heparin SubQ -low suspicion for PE, will order V/Q scan if return of fever, dyspnea -Patient might benefit from PO AC at discharge, awaiting Vascular surgery recommendations #Hypothyroidism -continue synthroid #Dysphagia-improving -Patient failed initial speech eval due to mental status -continue TF with pureed diet for now, Nutrition following #GI/ DVT Prophylaxis -PPI- Pepcid -heparin SubQ -SCDs to bilateral lower extremities while in bed #Discharge planning -continue with pureed diet; medically stable for discharge -Plan to discharge patient to rehab if Mother agreeable History Interval history: No acute events overnight. Patient alert and oriented x4. She has no complaints at this time. Hospitalist Physical - Physical exam Narrative exam: GENERAL: Well-developed well-nourished. In no acute distress. HEENT: Normocephalic, atraumatic. CHEST/LUNGS: CTAB on room air HEART/CARDIOVASCULAR: RRR. No murmur, rubs or gallops appreciated. ABDOMEN: +BS. NT/ND. NEURO: No focal motor deficit. Follows all commands. EXTREMITIES: Right upper extremity aVF. No cyanosis, clubbing or edema. PSYCH: Cooperative. - Constitutional Vitals: Temp Pulse Resp BP Pulse Ox 99.2 F 79 18 161/76 98 08/31/21 07:28 08/31/21 07:28 08/31/21 04:27 08/31/21 07:28 08/31/21 07:28 General appearance: Present: no acute distress, well-nourished, other (Does not respond, nonverbal, randomly moves) Results - Labs CBC & Chem 7: 08/30/21 05:12 08/30/21 05:12 Labs: Laboratory Last Values WBC 10.9 K/mm3 (4.5-11.0) 08/30/21 05:12 RBC 4.23 M/mm3 (3.65-5.03) 08/30/21 05:12 Hgb 11.5 gm/dl (10.1-14.3) 08/30/21 05:12 Hct 35.8 % (30.3-42.9) 08/30/21 05:12 MCV 85 fl (79-97) 08/30/21 05:12 MCH 27 pg (28-32) L 08/30/21 05:12 MCHC 32 % (30-34) 08/30/21 05:12 RDW 20.2 % (13.2-15.2) H 08/30/21 05:12 Plt Count 195 K/mm3 (140-440) 08/30/21 05:12 Lymph % (Auto) 24.9 % (13.4-35.0) 08/30/21 05:12 [place] % (Auto) 12.7 % (0.0-7.3) H 08/30/21 05:12 Eos % (Auto) 3.4 % (0.0-4.3) 08/30/21 05:12 Baso % (Auto) 1.4 % (0.0-1.8) 08/30/21 05:12 Lymph # (Auto) 2.7 K/mm3 (1.2-5.4) 08/30/21 05:12 [place] # (Auto) 1.4 K/mm3 (0.0-0.8) H 08/30/21 05:12 Eos # (Auto) 0.4 K/mm3 (0.0-0.4) 08/30/21 05:12 Baso # (Auto) 0.2 K/mm3 (0.0-0.1) H 08/30/21 05:12 Seg Neutrophils % 57.6 % (40.0-70.0) 08/30/21 05:12 Seg Neutrophils # 6.3 K/mm3 (1.8-7.7) 08/30/21 05:12 PT 14.0 Sec. (12.2-14.9) 08/23/21 22:59 INR 0.97 (0.87-1.13) 08/23/21 22:59 APTT 27.9 Sec. (24.2-36.6) 08/23/21 22:59 D-Dimer 2695.37 ng/mlDDU (0-234) H 08/17/21 14:40 Sodium 138 mmol/L (137-145) 08/30/21 05:12 Potassium 4.2 mmol/L (3.6-5.0) 08/30/21 05:12 Chloride 97.5 mmol/L (98-107) L 08/30/21 05:12 Carbon Dioxide 26 mmol/L (22-30) 08/30/21 05:12 Anion Gap 19 mmol/L 08/30/21 05:12 BUN 58 mg/dL (7-17) H 08/30/21 05:12 Creatinine 6.9 mg/dL (0.6-1.2) H 08/30/21 05:12 Estimated GFR 8 ml/min 08/30/21 05:12 BUN/Creatinine Ratio 8 % 08/30/21 05:12 Glucose 112 mg/dL (65-100) H 08/30/21 05:12 POC Glucose 125 mg/dL (70-105) H 08/31/21 04:30 Hemoglobin A1c 10.2 % (4-6) H 08/18/21 04:56 Lactic Acid 1.70 mmol/L (0.7-2.0) 08/17/21 02:07 Calcium 10.8 mg/dL (8.4-10.2) H 08/30/21 05:12 Phosphorus 6.00 mg/dL (2.5-4.5) H 08/30/21 05:12 Magnesium 2.80 mg/dL (1.7-2.3) H 08/30/21 05:12 Total Bilirubin 0.30 mg/dL (0.1-1.2) 08/30/21 05:12 AST 32 units/L (5-40) 08/30/21 05:12 ALT 8 units/L (7-56) 08/30/21 05:12 Alkaline Phosphatase 147 units/L (35-129) H 08/30/21 05:12 NT-Pro-B Natriuret Pep 29201 pg/mL (0-450) H 08/17/21 02:07 Total Protein 7.6 g/dL (6.3-8.2) 08/30/21 05:12 Albumin 3.9 g/dL (3.9-5) 08/30/21 05:12 Albumin/Globulin Ratio 1.1 % 08/30/21 05:12 Triglycerides 128 mg/dL (2-149) 08/17/21 14:40 Cholesterol 128 mg/dL (50-199) 08/17/21 14:40 LDL Cholesterol Direct 69 mg/dL (50-130) 08/17/21 14:40 HDL Cholesterol 30 mg/dL (40-59) L 08/17/21 14:40 Cholesterol/HDL Ratio 4.26 % 08/17/21 14:40 TSH 5.080 mlU/mL (0.270-4.200) H 08/17/21 02:07 Salicylates < 0.3 mg/dL (2.8-20.0) L 08/17/21 02:07 Acetaminophen 5.0 ug/mL (10.0-30.0) L 08/17/21 02:07 Plasma/Serum Alcohol < 0.01 % (0-0.07) 08/17/21 02:07 SARS-CoV-2 (PCR) Negative (Negative) 08/17/21 09:12 Hepatitis A IgM Ab Non-reactive (NonReactive) 08/17/21 14:40 Hep Bs Antigen Non-reactive (Negative) 08/17/21 14:40 Hep B Core IgM Ab Non-reactive (NonReactive) 08/17/21 14:40 Hepatitis C Antibody Non-reactive (NonReactive) 08/17/21 14:40 Blood Type O POSITIVE 08/17/21 17:43 Antibody Screen Negative 08/17/21 17:43 Tomas/IV: Voiding Method External Female Catheter Active Medications - Current Medications Current Medications: Generic Name Dose Route Start Last Admin Trade Name Freq PRN Reason Stop Dose Admin Acetaminophen 650 mg 08/17/21 07:50 08/30/21 20:25 Acetaminophen 325 Mg Tab PO 650 mg Q6H PRN Administration Pain, Mild (1-3) Acetaminophen 650 mg 08/17/21 08:17 08/17/21 14:49 Acetaminophen 650 Mg Rect Supp [place] 650 mg Q4H PRN Administration Pain, Mild (1-3) Albuterol 2.5 mg 08/29/21 20:00 08/30/21 21:56 Albuterol 2.5 Mg/3 Ml Nebu IH Not Given QIDRT HAM Albuterol 2.5 mg 08/29/21 20:00 Albuterol 2.5 Mg/3 Ml Nebu IH Q4HRT PRN Shortness Of Breath Amlodipine Besylate 10 mg 08/22/21 11:00 08/30/21 11:06 Amlodipine 10 Mg Tab PO 10 mg QDAY HAM Administration Lipase/Protease/Amylase 1 each 08/26/21 16:00 Lipase 10,500/Protease 25,000/Amylase 43,750 (Units) Dr Lopez FEEDTUBE PRN PRN For Clogged Feeding Tube Aspirin 325 mg 08/22/21 10:00 08/30/21 11:06 Aspirin 325 Mg Tab FEEDTUBE 325 mg QDAY HAM Administration Atorvastatin Calcium 40 mg 08/29/21 22:00 08/30/21 21:33 Atorvastatin 40 Mg Tab PO 40 mg QHS HAM Administration Citalopram Hydrobromide 20 mg 08/22/21 11:00 08/30/21 11:07 Citalopram 20 Mg Tab PO 20 mg QDAY HAM Administration Clonidine HCl 0.1 mg 08/29/21 20:00 08/30/21 20:25 Clonidine 0.1 Mg Tab PO 0.1 mg TID HAM Administration Dextrose 50 ml 08/17/21 23:37 Dextrose 50% In Water (25gm) 50 Ml Syringe IV Q30MIN PRN Hypoglycemia Protocol Duloxetine HCl 30 mg 08/21/21 10:00 08/23/21 17:08 Duloxetine 30 Mg Cap PO Not Given QDAY HAM Famotidine 20 mg 08/20/21 10:00 08/30/21 11:07 Famotidine 20 Mg Tab FEEDTUBE 20 mg QDAY HAM Administration Haloperidol Lactate 5 mg 08/19/21 12:00 08/30/21 02:34 Haloperidol Lactate 5 Mg/1 Ml Inj IV 5 mg Q6H PRN Administration Agitation Heparin Sodium (Porcine) 5,000 unit 08/17/21 06:00 08/31/21 06:46 Heparin 5,000 Unit/1 Ml Vial SUB-Q Not Given Q8HR [facility] Heparin Sodium (Porcine) 3,000 unit 08/17/21 07:41 Heparin 10,000 Units/10 Ml Vial IV KATI PRN hemodialysis Hydralazine HCl 100 mg 08/17/21 09:00 08/30/21 20:25 Hydralazine 100 Mg Tab PO 100 mg TID HAM Administration Hydralazine HCl 10 mg 08/17/21 07:56 08/25/21 05:19 Hydralazine 20 Mg/1 Ml Inj IV 10 mg Q4HR PRN Administration Hypertension Hydromorphone HCl 0.25 mg 08/17/21 07:50 08/31/21 02:54 Hydromorphone 0.5 Mg/0.5 Ml Inj IV 0.25 mg Q4H PRN Administration Pain, Moderate (4-6) Sodium Chloride 100 mls @ 999 mls/hr 08/30/21 12:00 Nacl 0.9% IV KATI PRN Hypotension Insulin Glargine 25 units 08/28/21 10:00 08/30/21 21:33 Insulin Glargine 100 Units/Ml SUB-Q 25 units BID HAM Administration Insulin Human Lispro 0 unit 08/18/21 00:00 08/31/21 06:47 Insulin Lispro 100 Unit/Ml SUB-Q Not Given Q6HR [facility] Protocol Levetiracetam 500 mg 08/20/21 10:00 08/30/21 11:06 Levetiracetam 500 Mg Tab PO 500 mg DAILY HAM Administration Levothyroxine Sodium 125 mcg 08/22/21 06:00 08/31/21 06:46 Levothyroxine 125 Mcg Tab PO Not Given QAM@0600 [facility] Losartan Potassium 50 mg 08/17/21 10:00 08/30/21 11:07 Losartan 50 Mg Tab PO 50 mg QDAY HAM Administration Magnesium Hydroxide 30 ml 08/17/21 04:09 08/23/21 23:56 Magnesium Hydroxide (Mom) Oral Liqd Udc PO 30 ml Q4H PRN Administration Constipation Metoprolol Tartrate 100 mg 08/20/21 11:00 08/30/21 21:33 Metoprolol Tartrate 100 Mg Tab PO 100 mg BID HAM Administration Ondansetron HCl 4 mg 08/17/21 04:09 Ondansetron 4 Mg/2 Ml Inj IV Q8H PRN Nausea And Vomiting Simple Syrup 15 ml 08/26/21 16:00 Simple Syrup 15 Ml FEEDTUBE PRN PRN Hypoglycemia Simple Syrup 30 ml 08/26/21 16:00 Simple Syrup 15 Ml FEEDTUBE PRN PRN Hypoglycemia Sodium Bicarbonate 325 mg 08/26/21 16:00 Sodium Bicarbonate 325 Mg Tab FEEDTUBE PRN PRN For Clogged Feeding Tube Sodium Chloride 10 ml 08/17/21 10:00 08/30/21 21:34 Sodium Chloride 0.9% 10 Ml Flush Syringe IV 10 ml BID HAM Administration Sodium Chloride 10 ml 08/17/21 04:09 08/19/21 02:59 Sodium Chloride 0.9% 10 Ml Flush Syringe IV 10 ml PRN PRN Administration LINE FLUSH Nutrition/Malnutrition Assess - Dietary Evaluation Nutrition/Malnutrition Findings: Nutrition Notes Start: 08/17/21 12:51 Freq: Status: Active Protocol: Document 08/29/21 15:07 LOLY (Rec: 08/29/21 15:14 LOLY [email or web address]) Nutrition Notes Initial or Follow up Reassessment Current Diagnosis CKD (stage V CKD),Diabetes, Hypertension,Stroke Other Pertinent Diagnosis RUE AV graft thrombosis, Dysphagia Current Diet TF - Nepro at 40ml/hr Labs/Tests Cr 9.8 POC Glu: 223, 174 Pertinent Medications Reviewed Height 5 ft 8 in Weight 76.3 kg [place] Body Weight (kg) 63.63 BMI 25.5 Weight change and time frame Wt change noted Weight Status Overweight Subjective/Other Information Per RN, pt tolerating TF at goal rate. Percent of energy/protein needs met: 98% energy 85% pro Burn Absent Trauma Absent #1 Nutrition Diagnosis Inadequate oral intake Diagnosis Progress(for reassessment Continues documentation) Is patient on ventilator? No Is Patient Ambulatory and/or Out of Bed No REE-([place]-St. Jeor-confined to bed) 1763.016 Calculation Used for Recommendations [place]-St Jeor Additional Notes Pro needs >1.2g/kg:>92g/day Fluid needs 1-1.5L/day Nutrition Intervention Nutrition Support: Continue Nepro at 40ml/hr with 135ml water flush q4h. Kcal 1,728 Protein (gm) 78 Carbohydrates (gm) 155 Fat (gm) 92 Fluid (mL) 698 Fiber (gm) 12 Goal #1 TF tolerance Goal #2 TF to meet at least 75% energy and pro needs Follow-Up By: 09/05/21 Additional Comments F/U: stable TF, wt
[2021-08-31] MEDS: amLODIPine 10 MG TAB PO SCH (09:13)
[2021-08-31] MEDS: hydrALAZINE 100 MG TAB PO SCH ×3 (09:14→20:37)
[2021-08-31] MEDS: METOPROLOL TARTRATE 100 MG TAB PO SCH ×2 (09:14→22:40)
[2021-08-31] MEDS: LOSARTAN 50 MG TAB PO SCH (09:14)
[2021-08-31] MEDS: cloNIDine 0.1 MG TAB PO SCH ×3 (09:14→20:37)
[2021-08-31] MEDS: ALBUTEROL 2.5 MG/3 ML NEBU IH SCH ×3 (09:40→15:31)
--- NOTE | 2021-08-31 11:28 | Progress Note ---
Assessment and Plan Possible Sepsis (high grade fevers, tachycardia, acute encephalopathy, tachypnea) DKA Acute Metabolic Encephalopathy h/o CVA with left-sided deficits End Stage renal Disease on HD HTN Hypothyroidism - continue enteral nutrition via dubhoff tube @ goal rate as tolerated - continue [employer] evaluation and advance diet per their recommendations - continue strict aspiration precautions; HOB > 40 degrees - continue care as below otherwise; - continue keppra as AED - prn Haldol for delirium / agitation - prn supplemental oxygen for target O2 sats > 90% - prn bronchodilators (DG) with pulm hygiene per RT - HD/UF per nephrology prescription for toxin and volume clearance - continue to avoid nephrotoxins, renally dose all medications - continue mobility protocols to prevent pressure ulcers - PT/OT as tolerated - Wound care per RN/WCT - continue accuchecks with glycemic control per SSI for target blood glucose < 180 mg/dL - tobacco abstinence counseled at the bedside - home oxygen evaluation at discharge - GI & VTE prophylaxis - Flu & pneumovax per protocol - Pulmonary out patient follow up for PFTs and optimization of respiratory status - continue other care per attending / other consultants - prn analgesia per pain score COVID SPECIFIC INTERVENTIONS - COVID-19 PCR negative ... re-evaluate in am & prn Subjective Date of service: 08/31/21 Principal diagnosis: Possible Sepsis; DKA; AMS; h/o CVA left hemiparesis; ESRD on Dialysis; HTN Interval history: Patient is seen today for: Possible Sepsis; DKA; Acute Metabolic Encephalopathy; h/o CVA with left-sided deficits; End Stage renal Disease on HD; HTN Seen and examined at bedside; 24hour events reviewed; nursing and respiratory care staff consulted; no adverse overnight events reported to me; resting peacefully in bed; for HD/UF today; no N/V/F/C Objective Vital Signs - 12hr 08/31/21 08/31/21 08/31/21 00:24 04:00 04:27 Temperature 99.2 F 99.0 F Pulse Rate 78 76 77 Respiratory 16 18 Rate Blood Pressure 145/57 156/54 O2 Sat by Pulse 98 98 Oximetry O2 Sat by Pulse Oximetry [ Bilateral] 08/31/21 08/31/21 08/31/21 07:28 09:13 09:14 Temperature 99.2 F Pulse Rate 79 79 79 Respiratory Rate Blood Pressure 161/76 161/76 161/76 O2 Sat by Pulse 98 Oximetry O2 Sat by Pulse Oximetry [ Bilateral] 08/31/21 08/31/21 08/31/21 10:28 10:38 10:45 Temperature 98.9 F Pulse Rate 84 80 80 Respiratory 18 Rate Blood Pressure 155/69 157/59 113/74 O2 Sat by Pulse Oximetry O2 Sat by Pulse 96 Oximetry [ Bilateral] Constitutional: no acute distress, other (middle aged obese female with normal respiratory effort at rest) Eyes: non-icteric ENT: oropharynx moist Neck: supple, no lymphadenopathy, no JVD, other (large circumference) Effort: mildly labored Ascultation: Bilateral: clear, diminished breath sounds Percussion: Bilateral: not dull Cardiovascular: regular rate and rhythm, other (S1,S2) Gastrointestinal: normoactive bowel sounds, soft, non-tender, non-distended (protuberant), other (obese) Integumentary: normal Extremities: no cyanosis, no edema, pulses normal, no ischemia or petechiae Neurologic: non-focal exam (grossly), pupils equal and round, CN II-XII normal, other (weak & ? mild delirium) Psychiatric: other (flat affect) CBC and BMP: 09/08/21 05:31 09/08/21 05:31 ABG, PT/INR, D-dimer: PT/INR, D-dimer PT 14.0 Sec. (12.2-14.9) 08/23/21 22:59 INR 0.97 (0.87-1.13) 08/23/21 22:59 D-Dimer 2695.37 ng/mlDDU (0-234) H 08/17/21 14:40 Abnormal lab findings: Abnormal Labs 08/17/21 08/17/21 08/17/21 00:33 00:33 02:07 WBC MCH RDW 19.7 H Lymph % (Auto) 10.5 L Sebastian % (Auto) Lymph # (Auto) 1.1 L Sebastian # (Auto) Baso # (Auto) Seg Neutrophils % 79.1 H Seg Neutrophils # 8.6 H D-Dimer Sodium 132 L 134 L Chloride 87.8 L 88.4 L Carbon Dioxide 21 L BUN 61 H 61 H Creatinine 10.1 H 10.3 H Glucose 594 H* 533 H* POC Glucose Hemoglobin A1c Calcium Phosphorus Magnesium ALT < 5 L Alkaline Phosphatase 182 H NT-Pro-B Natriuret Pep 35650 H Albumin HDL Cholesterol TSH Salicylates Acetaminophen 08/17/21 08/17/21 08/17/21 02:07 02:07 02:07 WBC MCH RDW Lymph % (Auto) Sebastian % (Auto) Lymph # (Auto) Sebastian # (Auto) Baso # (Auto) Seg Neutrophils % Seg Neutrophils # D-Dimer Sodium Chloride Carbon Dioxide BUN Creatinine Glucose POC Glucose Hemoglobin A1c Calcium Phosphorus Magnesium ALT Alkaline Phosphatase NT-Pro-B Natriuret Pep Albumin HDL Cholesterol TSH 5.080 H Salicylates < 0.3 L Acetaminophen 5.0 L 08/17/21 08/17/21 08/17/21 04:20 04:20 05:09 WBC MCH RDW Lymph % (Auto) Sebastian % (Auto) Lymph # (Auto) Sebastian # (Auto) Baso # (Auto) Seg Neutrophils % Seg Neutrophils # D-Dimer Sodium 136 L Chloride 90.9 L Carbon Dioxide BUN 61 H Creatinine 10.4 H Glucose 351 H POC Glucose 298 H Hemoglobin A1c Calcium Phosphorus 6.20 H Magnesium ALT Alkaline Phosphatase NT-Pro-B Natriuret Pep Albumin HDL Cholesterol TSH Salicylates Acetaminophen 08/17/21 08/17/21 08/17/21 09:58 10:53 13:14 WBC MCH RDW Lymph % (Auto) Sebastian % (Auto) Lymph # (Auto) Sebastian # (Auto) Baso # (Auto) Seg Neutrophils % Seg Neutrophils # D-Dimer Sodium Chloride Carbon Dioxide BUN Creatinine Glucose POC Glucose 139 H 162 H 145 H Hemoglobin A1c Calcium Phosphorus Magnesium ALT Alkaline Phosphatase NT-Pro-B Natriuret Pep Albumin HDL Cholesterol TSH Salicylates Acetaminophen 08/17/21 08/17/21 08/17/21 14:40 14:40 14:40 WBC MCH RDW Lymph % (Auto) Sebastian % (Auto) Lymph # (Auto) Sebastian # (Auto) Baso # (Auto) Seg Neutrophils % Seg Neutrophils # D-Dimer 2695.37 H Sodium Chloride 96.7 L Carbon Dioxide BUN 63 H Creatinine 10.7 H Glucose 145 H POC Glucose Hemoglobin A1c Calcium Phosphorus Magnesium ALT Alkaline Phosphatase NT-Pro-B Natriuret Pep Albumin HDL Cholesterol 30 L TSH Salicylates Acetaminophen 08/17/21 08/17/21 08/17/21 14:40 16:45 17:47 WBC MCH RDW Lymph % (Auto) Sebastian % (Auto) Lymph # (Auto) Sebastian # (Auto) Baso # (Auto) Seg Neutrophils % Seg Neutrophils # D-Dimer Sodium Chloride 96.2 L Carbon Dioxide BUN 44 H Creatinine 7.2 H Glucose 167 H POC Glucose 136 H 165 H Hemoglobin A1c Calcium Phosphorus Magnesium ALT Alkaline Phosphatase NT-Pro-B Natriuret Pep Albumin HDL Cholesterol TSH Salicylates Acetaminophen 08/17/21 08/17/21 08/17/21 18:01 21:01 22:40 WBC MCH RDW Lymph % (Auto) Sebastian % (Auto) Lymph # (Auto) Sebastian # (Auto) Baso # (Auto) Seg Neutrophils % Seg Neutrophils # D-Dimer Sodium Chloride 97.1 L 96.4 L Carbon Dioxide BUN 39 H 40 H Creatinine 8.0 H 8.5 H Glucose 122 H 109 H POC Glucose 172 H Hemoglobin A1c Calcium Phosphorus Magnesium ALT Alkaline Phosphatase NT-Pro-B Natriuret Pep Albumin HDL Cholesterol TSH Salicylates Acetaminophen 08/17/21 08/18/21 08/18/21 22:40 02:13 04:56 WBC MCH 27 L RDW 19.7 H Lymph % (Auto) Sebastian % (Auto) Lymph # (Auto) Sebastian # (Auto) Baso # (Auto) Seg Neutrophils % Seg Neutrophils # D-Dimer Sodium Chloride 96.8 L Carbon Dioxide BUN 44 H Creatinine 9.3 H Glucose 170 H POC Glucose 190 H Hemoglobin A1c Calcium Phosphorus 6.70 H Magnesium ALT Alkaline Phosphatase NT-Pro-B Natriuret Pep Albumin HDL Cholesterol TSH Salicylates Acetaminophen 08/18/21 08/18/21 08/18/21 04:56 04:56 17:01 WBC MCH 27 L RDW 19.7 H Lymph % (Auto) Sebastian % (Auto) 9.7 H Lymph # (Auto) Sebastian # (Auto) Baso # (Auto) Seg Neutrophils % Seg Neutrophils # D-Dimer Sodium Chloride Carbon Dioxide BUN Creatinine Glucose POC Glucose 228 H Hemoglobin A1c 10.2 H Calcium Phosphorus Magnesium ALT Alkaline Phosphatase NT-Pro-B Natriuret Pep Albumin HDL Cholesterol TSH Salicylates Acetaminophen 08/18/21 08/19/21 08/19/21 23:58 04:37 04:37 WBC MCH 27 L RDW 19.5 H Lymph % (Auto) Sebastian % (Auto) Lymph # (Auto) Sebastian # (Auto) Baso # (Auto) Seg Neutrophils % Seg Neutrophils # D-Dimer Sodium Chloride 96.7 L Carbon Dioxide 21 L BUN 57 H Creatinine 10.2 H Glucose 151 H POC Glucose 192 H Hemoglobin A1c Calcium Phosphorus Magnesium ALT Alkaline Phosphatase NT-Pro-B Natriuret Pep Albumin HDL Cholesterol TSH Salicylates Acetaminophen 08/19/21 08/19/21 08/20/21 17:46 22:59 04:24 WBC MCH RDW Lymph % (Auto) Sebastian % (Auto) Lymph # (Auto) Sebastian # (Auto) Baso # (Auto) Seg Neutrophils % Seg Neutrophils # D-Dimer Sodium 133 L Chloride 87.9 L Carbon Dioxide 15 L BUN 33 H Creatinine 7.3 H Glucose 365 H POC Glucose 217 H 282 H Hemoglobin A1c Calcium Phosphorus 6.50 H Magnesium ALT Alkaline Phosphatase NT-Pro-B Natriuret Pep Albumin HDL Cholesterol TSH Salicylates Acetaminophen 08/20/21 08/20/21 08/20/21 06:07 07:51 15:37 WBC MCH RDW Lymph % (Auto) Sebastian % (Auto) Lymph # (Auto) Sebastian # (Auto) Baso # (Auto) Seg Neutrophils % Seg Neutrophils # D-Dimer Sodium Chloride Carbon Dioxide BUN Creatinine Glucose POC Glucose 398 H 308 H 247 H Hemoglobin A1c Calcium Phosphorus Magnesium ALT Alkaline Phosphatase NT-Pro-B Natriuret Pep Albumin HDL Cholesterol TSH Salicylates Acetaminophen 08/20/21 08/21/21 08/21/21 23:22 04:45 05:07 WBC MCH RDW Lymph % (Auto) Sebastian % (Auto) Lymph # (Auto) Sebastian # (Auto) Baso # (Auto) Seg Neutrophils % Seg Neutrophils # D-Dimer Sodium 134 L Chloride 92.9 L Carbon Dioxide BUN 48 H Creatinine 8.0 H Glucose 389 H POC Glucose 316 H 407 H Hemoglobin A1c Calcium 10.6 H Phosphorus Magnesium ALT Alkaline Phosphatase NT-Pro-B Natriuret Pep Albumin HDL Cholesterol TSH Salicylates Acetaminophen 08/21/21 08/21/21 08/21/21 11:37 15:52 23:44 WBC MCH RDW Lymph % (Auto) Sebastian % (Auto) Lymph # (Auto) Sebastian # (Auto) Baso # (Auto) Seg Neutrophils % Seg Neutrophils # D-Dimer Sodium Chloride Carbon Dioxide BUN Creatinine Glucose POC Glucose 244 H 325 H 221 H Hemoglobin A1c Calcium Phosphorus Magnesium ALT Alkaline Phosphatase NT-Pro-B Natriuret Pep Albumin HDL Cholesterol TSH Salicylates Acetaminophen 08/22/21 08/22/21 08/23/21 06:06 12:27 00:37 WBC MCH RDW Lymph % (Auto) Sebastian % (Auto) Lymph # (Auto) Sebastian # (Auto) Baso # (Auto) Seg Neutrophils % Seg Neutrophils # D-Dimer Sodium Chloride Carbon Dioxide BUN Creatinine Glucose POC Glucose 224 H 247 H 341 H Hemoglobin A1c Calcium Phosphorus Magnesium ALT Alkaline Phosphatase NT-Pro-B Natriuret Pep Albumin HDL Cholesterol TSH Salicylates Acetaminophen 08/23/21 08/23/21 08/23/21 04:20 05:37 11:56 WBC MCH RDW Lymph % (Auto) Sebastian % (Auto) Lymph # (Auto) Sebastian # (Auto) Baso # (Auto) Seg Neutrophils % Seg Neutrophils # D-Dimer Sodium Chloride 94.4 L Carbon Dioxide BUN 49 H Creatinine 7.7 H Glucose 201 H POC Glucose 210 H 162 H Hemoglobin A1c Calcium 10.9 H Phosphorus Magnesium ALT Alkaline Phosphatase NT-Pro-B Natriuret Pep Albumin HDL Cholesterol TSH Salicylates Acetaminophen 08/23/21 08/23/21 08/23/21 17:45 22:58 22:59 WBC 12.2 H MCH 26 L RDW 20.3 H Lymph % (Auto) Sebastian % (Auto) Lymph # (Auto) Sebastian # (Auto) Baso # (Auto) Seg Neutrophils % Seg Neutrophils # D-Dimer Sodium Chloride Carbon Dioxide BUN Creatinine Glucose POC Glucose 211 H 218 H Hemoglobin A1c Calcium Phosphorus Magnesium ALT Alkaline Phosphatase NT-Pro-B Natriuret Pep Albumin HDL Cholesterol TSH Salicylates Acetaminophen 08/23/21 08/24/21 08/24/21 22:59 04:23 04:23 WBC 15.4 H MCH 27 L RDW 19.8 H Lymph % (Auto) Sebastian % (Auto) 13.0 H Lymph # (Auto) Sebastian # (Auto) 2.0 H Baso # (Auto) 0.2 H Seg Neutrophils % Seg Neutrophils # 9.8 H D-Dimer Sodium 136 L Chloride 93.0 L Carbon Dioxide BUN 73 H Creatinine 8.7 H 9.2 H Glucose 145 H POC Glucose Hemoglobin A1c Calcium 10.7 H Phosphorus 6.30 H Magnesium 2.70 H ALT 6 L Alkaline Phosphatase 157 H NT-Pro-B Natriuret Pep Albumin 3.7 L HDL Cholesterol TSH Salicylates Acetaminophen 08/24/21 08/24/21 08/24/21 05:09 11:20 18:28 WBC MCH RDW Lymph % (Auto) Sebastian % (Auto) Lymph # (Auto) Sebastian # (Auto) Baso # (Auto) Seg Neutrophils % Seg Neutrophils # D-Dimer Sodium Chloride Carbon Dioxide BUN Creatinine Glucose POC Glucose 155 H 110 H 182 H Hemoglobin A1c Calcium Phosphorus Magnesium ALT Alkaline Phosphatase NT-Pro-B Natriuret Pep Albumin HDL Cholesterol TSH Salicylates Acetaminophen 08/25/21 08/25/21 08/25/21 00:15 04:44 11:28 WBC 11.3 H MCH 27 L RDW 20.4 H Lymph % (Auto) Sebastian % (Auto) Lymph # (Auto) Sebastian # (Auto) Baso # (Auto) Seg Neutrophils % Seg Neutrophils # D-Dimer Sodium Chloride Carbon Dioxide BUN Creatinine Glucose POC Glucose 247 H 189 H Hemoglobin A1c Calcium Phosphorus Magnesium ALT Alkaline Phosphatase NT-Pro-B Natriuret Pep Albumin HDL Cholesterol TSH Salicylates Acetaminophen 08/25/21 08/25/21 08/26/21 16:42 23:29 05:22 WBC MCH RDW Lymph % (Auto) Sebastian % (Auto) Lymph # (Auto) Sebastian # (Auto) Baso # (Auto) Seg Neutrophils % Seg Neutrophils # D-Dimer Sodium Chloride Carbon Dioxide BUN Creatinine 10.0 H Glucose POC Glucose 169 H 213 H Hemoglobin A1c Calcium Phosphorus Magnesium ALT Alkaline Phosphatase NT-Pro-B Natriuret Pep Albumin HDL Cholesterol TSH Salicylates Acetaminophen 08/26/21 08/26/21 08/26/21 06:12 11:47 23:33 WBC MCH RDW Lymph % (Auto) Sebastian % (Auto) Lymph # (Auto) Sebastian # (Auto) Baso # (Auto) Seg Neutrophils % Seg Neutrophils # D-Dimer Sodium Chloride Carbon Dioxide BUN Creatinine Glucose POC Glucose 191 H 197 H 197 H Hemoglobin A1c Calcium Phosphorus Magnesium ALT Alkaline Phosphatase NT-Pro-B Natriuret Pep Albumin HDL Cholesterol TSH Salicylates Acetaminophen 08/27/21 08/27/21 08/27/21 06:02 06:02 06:17 WBC MCH 27 L RDW 20.1 H Lymph % (Auto) Sebastian % (Auto) 14.2 H Lymph # (Auto) Sebastian # (Auto) 1.4 H Baso # (Auto) Seg Neutrophils % Seg Neutrophils # D-Dimer Sodium 134 L Chloride 93.8 L Carbon Dioxide BUN 56 H Creatinine 6.4 H Glucose 253 H POC Glucose 250 H Hemoglobin A1c Calcium Phosphorus 6.00 H Magnesium 2.50 H ALT < 5 L Alkaline Phosphatase 135 H NT-Pro-B Natriuret Pep Albumin 3.6 L HDL Cholesterol TSH Salicylates Acetaminophen 08/27/21 08/27/21 08/27/21 11:21 16:05 23:13 WBC MCH RDW Lymph % (Auto) Sebastian % (Auto) Lymph # (Auto) Sebastian # (Auto) Baso # (Auto) Seg Neutrophils % Seg Neutrophils # D-Dimer Sodium Chloride Carbon Dioxide BUN Creatinine Glucose POC Glucose 287 H 321 H 286 H Hemoglobin A1c Calcium Phosphorus Magnesium ALT Alkaline Phosphatase NT-Pro-B Natriuret Pep Albumin HDL Cholesterol TSH Salicylates Acetaminophen 08/28/21 08/28/21 08/28/21 05:11 05:29 11:30 WBC MCH RDW Lymph % (Auto) Sebastian % (Auto) Lymph # (Auto) Sebastian # (Auto) Baso # (Auto) Seg Neutrophils % Seg Neutrophils # D-Dimer Sodium 134 L Chloride 91.8 L Carbon Dioxide BUN 79 H Creatinine 8.2 H Glucose 230 H POC Glucose 225 H 190 H Hemoglobin A1c Calcium 10.8 H Phosphorus Magnesium ALT Alkaline Phosphatase NT-Pro-B Natriuret Pep Albumin HDL Cholesterol TSH Salicylates Acetaminophen 08/28/21 08/29/21 08/29/21 15:53 00:04 04:29 WBC MCH 27 L RDW 20.6 H Lymph % (Auto) Sebastian % (Auto) Lymph # (Auto) Sebastian # (Auto) Baso # (Auto) Seg Neutrophils % Seg Neutrophils # D-Dimer Sodium Chloride Carbon Dioxide BUN Creatinine Glucose POC Glucose 235 H 223 H Hemoglobin A1c Calcium Phosphorus Magnesium ALT Alkaline Phosphatase NT-Pro-B Natriuret Pep Albumin HDL Cholesterol TSH Salicylates Acetaminophen 08/29/21 08/29/21 08/29/21 04:29 05:37 16:14 WBC MCH RDW Lymph % (Auto) Sebastian % (Auto) Lymph # (Auto) Sebastian # (Auto) Baso # (Auto) Seg Neutrophils % Seg Neutrophils # D-Dimer Sodium Chloride Carbon Dioxide BUN Creatinine 9.8 H Glucose POC Glucose 174 H 200 H Hemoglobin A1c Calcium Phosphorus Magnesium ALT Alkaline Phosphatase NT-Pro-B Natriuret Pep Albumin HDL Cholesterol TSH Salicylates Acetaminophen 08/30/21 08/30/21 08/30/21 00:10 05:12 05:12 WBC MCH 27 L RDW 20.2 H Lymph % (Auto) Sebastian % (Auto) 12.7 H Lymph # (Auto) Sebastian # (Auto) 1.4 H Baso # (Auto) 0.2 H Seg Neutrophils % Seg Neutrophils # D-Dimer Sodium Chloride 97.5 L Carbon Dioxide BUN 58 H Creatinine 6.9 H Glucose 112 H POC Glucose 111 H Hemoglobin A1c Calcium 10.8 H Phosphorus 6.00 H Magnesium 2.80 H ALT Alkaline Phosphatase 147 H NT-Pro-B Natriuret Pep Albumin HDL Cholesterol TSH Salicylates Acetaminophen 08/30/21 08/31/21 08/31/21 16:40 00:27 04:30 WBC MCH RDW Lymph % (Auto) Sebastian % (Auto) Lymph # (Auto) Sebastian # (Auto) Baso # (Auto) Seg Neutrophils % Seg Neutrophils # D-Dimer Sodium Chloride Carbon Dioxide BUN Creatinine Glucose POC Glucose 224 H 200 H 125 H Hemoglobin A1c Calcium Phosphorus Magnesium ALT Alkaline Phosphatase NT-Pro-B Natriuret Pep Albumin HDL Cholesterol TSH Salicylates Acetaminophen Allied health notes reviewed: nursing
--- NOTE | 2021-08-31 11:49 | Progress Note ---
Assessment and Plan 1. ESRD: Patient is on maintenance HD, MWF schedule. Last outpatient HD 08/12/21. Meds dosage based on GFR. Hemodialysis: 08/17, 08/19, 08/22, 08/24, 08/26, 08/28, 08/31. 2. FEN: Metabolic acidosis, s/p HD, monitor. UF with HD as tolerated. Monitor lytes and volume status. 3. Diabetic Hyperosmolar State, POA: S/p Insulin gtt. Per protocol. 4. Malfunctioning hemodialysis access: Patient presented with non functioning hemodialysis access. S/p angioplasty of R arm AVG. Seen by Vascular. 5. Acute Metabolic Encephalopathy, POA: 2/[address] head and MRI brain negative. MS is better. Seen by Neuro. 6. SIRS versus sepsis: Unclear source at present. Abx per ID. 7. HTN: Adjust meds as needed. Monitor BP. Subjective: Patient was seen and examined at the bedside in the HD unit. Nurse at the bedside. Doing ok. Examination: General appearance: well-developed, well-nourished, appears stated age, no distress HEENT: ATNC, pupils equal Neck: trachea midline Respiratory: Clear to Auscultation Cardiology: regular, S1S2, no murmur Gastrointestinal: soft, normoactive bowel sounds, not tender, ND Integumentary: no rash Neurologic: AO, L sided weakness Ext: no edema noted Hemodialysis access: R arm AVG Subjective Date of service: 08/31/21 Principal diagnosis: Possible Sepsis; DKA; AMS; h/o CVA left hemiparesis; ESRD on Dialysis; HTN Objective - Vital Signs Vital signs: Vital Signs - 12hr 08/31/21 08/31/21 08/31/21 00:24 04:00 04:27 Temperature 99.2 F 99.0 F Pulse Rate 78 76 77 Pulse Rate [ Right Radial] Respiratory 16 18 Rate Blood Pressure 145/57 156/54 O2 Sat by Pulse 98 98 Oximetry O2 Sat by Pulse Oximetry [ Bilateral] 08/31/21 08/31/21 08/31/21 07:28 09:13 09:14 Temperature 99.2 F Pulse Rate 79 79 79 Pulse Rate [ Right Radial] Respiratory Rate Blood Pressure 161/76 161/76 161/76 O2 Sat by Pulse 98 Oximetry O2 Sat by Pulse Oximetry [ Bilateral] 08/31/21 08/31/21 08/31/21 10:00 10:28 10:38 Temperature 98.9 F Pulse Rate 84 80 Pulse Rate [ 79 Right Radial] Respiratory 18 Rate Blood Pressure 155/69 157/59 O2 Sat by Pulse 97 Oximetry O2 Sat by Pulse 96 Oximetry [ Bilateral] 08/31/21 10:45 Temperature Pulse Rate 80 Pulse Rate [ Right Radial] Respiratory Rate Blood Pressure 113/74 O2 Sat by Pulse Oximetry O2 Sat by Pulse Oximetry [ Bilateral] - Lab 08/30/21 05:12 08/30/21 05:12 Most recent lab results Calcium 10.8 mg/dL (8.4-10.2) H 08/30/21 05:12 Phosphorus 6.00 mg/dL (2.5-4.5) H 08/30/21 05:12 Magnesium 2.80 mg/dL (1.7-2.3) H 08/30/21 05:12 Medications & Allergies - Medications Allergies/Adverse Reactions: Allergies vancomycin Adverse Reaction (Verified 04/02/13 10:16) Hives Home Medications: Home Medications Medication Instructions Recorded Confirmed Last Taken Type Hydralazine HCl [hydrALAZINE] 100 mg PO BID 04/02/13 08/17/21 04/02/13 08:00 History Aspirin/Dipyridamole [Aggrenox] 1 cap PO BID #60 capsule 04/10/13 08/17/21 Unknown Rx Cinacalcet [Sensipar] 60 mg PO QDAY 08/17/21 08/17/21 Unknown History Citalopram [celeXA] 20 mg PO QDAY 08/17/21 08/17/21 Unknown History Gabapentin [Neurontin] 100 mg PO Q8HR 08/17/21 08/17/21 Unknown History Insulin Glargine,Hum.rec.anlog 55 unit SQ BID 08/17/21 08/17/21 Unknown History [Lantus Solostar] Promethazine [Phenergan] 25 mg PO Q6HR PRN 08/17/21 08/17/21 Unknown History Sevelamer Carbonate [Renvela] 800 mg PO TIDWM 08/17/21 08/17/21 Unknown History amLODIPine [Norvasc] 10 mg PO DAILY 08/17/21 08/17/21 Unknown History carvediloL [Coreg] 25 mg PO BID 08/17/21 08/17/21 Unknown History Albuterol Mdi (or & Nicu Only) 2 puff IH QID PRN 08/29/21 08/29/21 Unknown History [ProAir HFA Inhaler] AtorvaSTATin [Lipitor] 40 mg PO QHS 08/29/21 08/29/21 Unknown History Cetirizine HCl [Zyrtec 10mg tab] 10 mg PO QDAY 08/29/21 08/29/21 Unknown History Ferric Citrate (Nf) [Auryxia] 210 mg PO TID 08/29/21 08/29/21 Unknown History Fluticasone [Flonase] 2 spray NS QDAY PRN 08/29/21 08/29/21 Unknown History Furosemide [Lasix TAB] 40 mg PO QDAY 08/29/21 08/29/21 Unknown History Insulin Aspart (Nf) [NovoLOG 15 units SQ TIDAC 08/29/21 08/29/21 Unknown History Flexpen] Metoclopramide [Reglan] 10 mg PO HS 08/29/21 08/29/21 Unknown History Pantoprazole [Protonix] 40 mg PO QDAY 08/29/21 08/29/21 Unknown History Prochlorperazine Maleate 10 mg PO QDAY PRN 08/29/21 08/29/21 Unknown History [Compazine] Sucroferric Oxyhydroxide(Nf) 500 mg PO TIDWM 08/29/21 08/29/21 Unknown History [Velphoro (Nf)] cloNIDine [Catapres] 0.1 mg PO TID 08/29/21 08/29/21 Unknown History Active Medications: Generic Name Dose Route Start Last Admin Trade Name Freq PRN Reason Stop Dose Admin Acetaminophen 650 mg 08/17/21 07:50 08/30/21 20:25 Acetaminophen 325 Mg Tab PO 650 mg Q6H PRN Administration Pain, Mild (1-3) Acetaminophen 650 mg 08/17/21 08:17 08/17/21 14:49 Acetaminophen 650 Mg Rect Supp NM 650 mg Q4H PRN Administration Pain, Mild (1-3) Albuterol 2.5 mg 08/29/21 20:00 08/31/21 09:40 Albuterol 2.5 Mg/3 Ml Nebu IH 2.5 mg QIDRT HAM Administration Albuterol 2.5 mg 08/29/21 20:00 Albuterol 2.5 Mg/3 Ml Nebu IH Q4HRT PRN Shortness Of Breath Amlodipine Besylate 10 mg 08/22/21 11:00 08/31/21 09:13 Amlodipine 10 Mg Tab PO 10 mg QDAY HAM Administration Lipase/Protease/Amylase 1 each 08/26/21 16:00 Lipase 10,500/Protease 25,000/Amylase 43,750 (Units) Dr Lopez FEEDTUBE PRN PRN For Clogged Feeding Tube Aspirin 325 mg 08/22/21 10:00 08/31/21 09:11 Aspirin 325 Mg Tab FEEDTUBE 325 mg QDAY HAM Administration Atorvastatin Calcium 40 mg 08/29/21 22:00 08/30/21 21:33 Atorvastatin 40 Mg Tab PO 40 mg QHS HAM Administration Citalopram Hydrobromide 20 mg 08/22/21 11:00 08/31/21 09:10 Citalopram 20 Mg Tab PO 20 mg QDAY HAM Administration Clonidine HCl 0.1 mg 08/29/21 20:00 08/31/21 09:14 Clonidine 0.1 Mg Tab PO 0.1 mg TID HAM Administration Dextrose 50 ml 08/17/21 23:37 Dextrose 50% In Water (25gm) 50 Ml Syringe IV Q30MIN PRN Hypoglycemia Protocol Duloxetine HCl 30 mg 08/21/21 10:00 08/23/21 17:08 Duloxetine 30 Mg Cap PO Not Given QDAY HAM Famotidine 20 mg 08/20/21 10:00 08/31/21 09:11 Famotidine 20 Mg Tab FEEDTUBE 20 mg QDAY HAM Administration Haloperidol Lactate 5 mg 08/19/21 12:00 08/31/21 09:10 Haloperidol Lactate 5 Mg/1 Ml Inj IV 5 mg Q6H PRN Administration Agitation Heparin Sodium (Porcine) 5,000 unit 08/17/21 06:00 08/31/21 06:46 Heparin 5,000 Unit/1 Ml Vial SUB-Q Not Given Q8HR HAM Heparin Sodium (Porcine) 3,000 unit 08/17/21 07:41 Heparin 10,000 Units/10 Ml Vial IV KATI PRN hemodialysis Hydralazine HCl 100 mg 08/17/21 09:00 08/31/21 09:14 Hydralazine 100 Mg Tab PO 100 mg TID HAM Administration Hydralazine HCl 10 mg 08/17/21 07:56 08/25/21 05:19 Hydralazine 20 Mg/1 Ml Inj IV 10 mg Q4HR PRN Administration Hypertension Hydromorphone HCl 0.25 mg 08/17/21 07:50 08/31/21 02:54 Hydromorphone 0.5 Mg/0.5 Ml Inj IV 0.25 mg Q4H PRN Administration Pain, Moderate (4-6) Sodium Chloride 100 mls @ 999 mls/hr 08/30/21 12:00 Nacl 0.9% IV KATI PRN Hypotension Insulin Glargine 25 units 08/28/21 10:00 08/31/21 09:11 Insulin Glargine 100 Units/Ml SUB-Q 25 units BID HAM Administration Insulin Human Lispro 0 unit 08/18/21 00:00 08/31/21 06:47 Insulin Lispro 100 Unit/Ml SUB-Q Not Given Q6HR [facility] Protocol Levetiracetam 500 mg 08/20/21 10:00 08/31/21 09:11 Levetiracetam 500 Mg Tab PO 500 mg DAILY [facility] Administration Levothyroxine Sodium 125 mcg 08/22/21 06:00 08/31/21 06:46 Levothyroxine 125 Mcg Tab PO Not Given QAM@0600 [facility] Losartan Potassium 50 mg 08/17/21 10:00 08/31/21 09:14 Losartan 50 Mg Tab PO 50 mg QDAY HAM Administration Magnesium Hydroxide 30 ml 08/17/21 04:09 08/23/21 23:56 Magnesium Hydroxide (Mom) Oral Liqd Udc PO 30 ml Q4H PRN Administration Constipation Metoprolol Tartrate 100 mg 08/20/21 11:00 08/31/21 09:14 Metoprolol Tartrate 100 Mg Tab PO 100 mg BID HAM Administration Ondansetron HCl 4 mg 08/17/21 04:09 Ondansetron 4 Mg/2 Ml Inj IV Q8H PRN Nausea And Vomiting Simple Syrup 15 ml 08/26/21 16:00 Simple Syrup 15 Ml FEEDTUBE PRN PRN Hypoglycemia Simple Syrup 30 ml 08/26/21 16:00 Simple Syrup 15 Ml FEEDTUBE PRN PRN Hypoglycemia Sodium Bicarbonate 325 mg 08/26/21 16:00 Sodium Bicarbonate 325 Mg Tab FEEDTUBE PRN PRN For Clogged Feeding Tube Sodium Chloride 10 ml 08/17/21 10:00 08/31/21 09:10 Sodium Chloride 0.9% 10 Ml Flush Syringe IV 10 ml BID HAM Administration Sodium Chloride 10 ml 08/17/21 04:09 08/19/21 02:59 Sodium Chloride 0.9% 10 Ml Flush Syringe IV 10 ml PRN PRN Administration LINE FLUSH
[2021-09-01] MEDS: INSULIN LISPRO 100 UNIT/ML SUB-Q SCH ×4 (00:34→19:06)
[2021-09-01] MEDS: HEPARIN 5,000 UNIT/1 ML VIAL SUB-Q SCH ×3 (07:19→21:00)
[2021-09-01] MEDS: LEVOTHYROXINE 125 MCG TAB PO SCH (07:19)
--- NOTE | 2021-09-01 08:20 | Progress Note ---
Assessment and Plan 1. ESRD: Patient is on maintenance HD, MWF schedule. Last outpatient HD 08/12/21. Meds dosage based on GFR. Hemodialysis: 08/17, 08/19, 08/22, 08/24, 08/26, 08/28, 08/31. 2. FEN: Metabolic acidosis, s/p HD, monitor. UF with HD as tolerated. Monitor lytes and volume status. 3. Diabetic Hyperosmolar State, POA: S/p Insulin gtt. Per protocol. 4. Malfunctioning hemodialysis access: Patient presented with non functioning hemodialysis access. S/p angioplasty of R arm AVG. Seen by Vascular. 5. Acute Metabolic Encephalopathy, POA: 2/[address] head and MRI brain negative. MS is better. Seen by Neuro. 6. SIRS versus sepsis: S/p Abx. 7. HTN: Adjust meds as needed. Monitor BP. Subjective: Patient was seen and examined at the bedside. No new complaint. Examination: General appearance: well-developed, well-nourished, appears stated age, no distress HEENT: ATNC, pupils equal Neck: trachea midline Respiratory: Clear to Auscultation Cardiology: regular, S1S2, no murmur Gastrointestinal: soft, normoactive bowel sounds, not tender, ND Integumentary: no rash Neurologic: AO, L sided weakness Ext: no edema noted Hemodialysis access: R arm AVG Subjective Date of service: 09/01/21 Principal diagnosis: Possible Sepsis; DKA; AMS; h/o CVA left hemiparesis; ESRD on Dialysis; HTN Objective - Vital Signs Vital signs: Vital Signs - 12hr 08/31/21 08/31/21 08/31/21 20:37 22:00 22:39 Temperature Pulse Rate 89 87 Respiratory 18 Rate Blood Pressure 189/62 145/64 O2 Sat by Pulse 97 98 Oximetry 08/31/21 09/01/21 09/01/21 22:40 03:40 07:28 Temperature 98.9 F 97.9 F Pulse Rate 86 73 72 Respiratory 18 16 Rate Blood Pressure 145/64 157/71 118/67 O2 Sat by Pulse 97 95 Oximetry - Lab 08/30/21 05:12 08/30/21 05:12 Most recent lab results Calcium 10.8 mg/dL (8.4-10.2) H 08/30/21 05:12 Phosphorus 6.00 mg/dL (2.5-4.5) H 08/30/21 05:12 Magnesium 2.80 mg/dL (1.7-2.3) H 08/30/21 05:12 Medications & Allergies - Medications Allergies/Adverse Reactions: Allergies vancomycin Adverse Reaction (Verified 04/02/13 10:16) Hives Home Medications: Home Medications Medication Instructions Recorded Confirmed Last Taken Type Hydralazine HCl [hydrALAZINE] 100 mg PO BID 04/02/13 08/17/21 04/02/13 08:00 History Aspirin/Dipyridamole [Aggrenox] 1 cap PO BID #60 capsule 04/10/13 08/17/21 Unknown Rx Cinacalcet [Sensipar] 60 mg PO QDAY 08/17/21 08/17/21 Unknown History Citalopram [celeXA] 20 mg PO QDAY 08/17/21 08/17/21 Unknown History Gabapentin [Neurontin] 100 mg PO Q8HR 08/17/21 08/17/21 Unknown History Insulin Glargine,Hum.rec.anlog 55 unit SQ BID 08/17/21 08/17/21 Unknown History [Lantus Solostar] Promethazine [Phenergan] 25 mg PO Q6HR PRN 08/17/21 08/17/21 Unknown History Sevelamer Carbonate [Renvela] 800 mg PO TIDWM 08/17/21 08/17/21 Unknown History amLODIPine [Norvasc] 10 mg PO DAILY 08/17/21 08/17/21 Unknown History carvediloL [Coreg] 25 mg PO BID 08/17/21 08/17/21 Unknown History Albuterol Mdi (or & Nicu Only) 2 puff IH QID PRN 08/29/21 08/29/21 Unknown History [ProAir HFA Inhaler] AtorvaSTATin [Lipitor] 40 mg PO QHS 08/29/21 08/29/21 Unknown History Cetirizine HCl [Zyrtec 10mg tab] 10 mg PO QDAY 08/29/21 08/29/21 Unknown History Ferric Citrate (Nf) [Auryxia] 210 mg PO TID 08/29/21 08/29/21 Unknown History Fluticasone [Flonase] 2 spray NS QDAY PRN 08/29/21 08/29/21 Unknown History Furosemide [Lasix TAB] 40 mg PO QDAY 08/29/21 08/29/21 Unknown History Insulin Aspart (Nf) [NovoLOG 15 units SQ TIDAC 08/29/21 08/29/21 Unknown History Flexpen] Metoclopramide [Reglan] 10 mg PO HS 08/29/21 08/29/21 Unknown History Pantoprazole [Protonix] 40 mg PO QDAY 08/29/21 08/29/21 Unknown History Prochlorperazine Maleate 10 mg PO QDAY PRN 08/29/21 08/29/21 Unknown History [Compazine] Sucroferric Oxyhydroxide(Nf) 500 mg PO TIDWM 08/29/21 08/29/21 Unknown History [Velphoro (Nf)] cloNIDine [Catapres] 0.1 mg PO TID 08/29/21 08/29/21 Unknown History Active Medications: Generic Name Dose Route Start Last Admin Trade Name Freq PRN Reason Stop Dose Admin Acetaminophen 650 mg 08/17/21 07:50 08/30/21 20:25 Acetaminophen 325 Mg Tab PO 650 mg Q6H PRN Administration Pain, Mild (1-3) Acetaminophen 650 mg 08/17/21 08:17 08/17/21 14:49 Acetaminophen 650 Mg Rect Supp MT 650 mg Q4H PRN Administration Pain, Mild (1-3) Albuterol 2.5 mg 08/29/21 20:00 Albuterol 2.5 Mg/3 Ml Nebu IH Q4HRT PRN Shortness Of Breath Amlodipine Besylate 10 mg 08/22/21 11:00 08/31/21 09:13 Amlodipine 10 Mg Tab PO 10 mg QDAY HAM Administration Lipase/Protease/Amylase 1 each 08/26/21 16:00 Lipase 10,500/Protease 25,000/Amylase 43,750 (Units) Dr Lopez FEEDTNIKOLAY PRN PRN For Clogged Feeding Tube Aspirin 325 mg 08/22/21 10:00 08/31/21 09:11 Aspirin 325 Mg Tab FEEDTUBE 325 mg QDAY HAM Administration Atorvastatin Calcium 40 mg 08/29/21 22:00 08/31/21 22:21 Atorvastatin 40 Mg Tab PO 40 mg QHS HAM Administration Citalopram Hydrobromide 20 mg 08/22/21 11:00 08/31/21 09:10 Citalopram 20 Mg Tab PO 20 mg QDAY HAM Administration Clonidine HCl 0.1 mg 08/29/21 20:00 08/31/21 20:37 Clonidine 0.1 Mg Tab PO 0.1 mg TID HAM Administration Dextrose 50 ml 08/17/21 23:37 Dextrose 50% In Water (25gm) 50 Ml Syringe IV Q30MIN PRN Hypoglycemia Protocol Duloxetine HCl 30 mg 08/21/21 10:00 08/23/21 17:08 Duloxetine 30 Mg Cap PO Not Given QDAY HAM Famotidine 20 mg 08/20/21 10:00 08/31/21 09:11 Famotidine 20 Mg Tab FEEDTUBE 20 mg QDAY HAM Administration Haloperidol Lactate 5 mg 08/19/21 12:00 08/31/21 09:10 Haloperidol Lactate 5 Mg/1 Ml Inj IV 5 mg Q6H PRN Administration Agitation Heparin Sodium (Porcine) 5,000 unit 08/17/21 06:00 09/01/21 07:19 Heparin 5,000 Unit/1 Ml Vial SUB-Q 5,000 unit Q8HR HAM Administration Heparin Sodium (Porcine) 3,000 unit 08/17/21 07:41 08/31/21 10:38 Heparin 10,000 Units/10 Ml Vial IV 3,000 unit KATI PRN Administration hemodialysis Hydralazine HCl 100 mg 08/17/21 09:00 08/31/21 20:37 Hydralazine 100 Mg Tab PO 100 mg TID HAM Administration Hydralazine HCl 10 mg 08/17/21 07:56 08/25/21 05:19 Hydralazine 20 Mg/1 Ml Inj IV 10 mg Q4HR PRN Administration Hypertension Hydromorphone HCl 0.25 mg 08/17/21 07:50 08/31/21 16:39 Hydromorphone 0.5 Mg/0.5 Ml Inj IV 0.25 mg Q4H PRN Administration Pain, Moderate (4-6) Sodium Chloride 100 mls @ 999 mls/hr 08/30/21 12:00 Nacl 0.9% IV KTAI PRN Hypotension Insulin Glargine 25 units 08/28/21 10:00 08/31/21 22:22 Insulin Glargine 100 Units/Ml SUB-Q 25 units BID HAM Administration Insulin Human Lispro 0 unit 08/18/21 00:00 09/01/21 06:42 Insulin Lispro 100 Unit/Ml SUB-Q Not Given Q6HR [facility] Protocol Levetiracetam 500 mg 08/20/21 10:00 08/31/21 09:11 Levetiracetam 500 Mg Tab PO 500 mg DAILY HAM Administration Levothyroxine Sodium 125 mcg 08/22/21 06:00 09/01/21 07:19 Levothyroxine 125 Mcg Tab PO 125 mcg QAM@0600 HAM Administration Losartan Potassium 50 mg 08/17/21 10:00 08/31/21 09:14 Losartan 50 Mg Tab PO 50 mg QDAY HAM Administration Magnesium Hydroxide 30 ml 08/17/21 04:09 08/23/21 23:56 Magnesium Hydroxide (Mom) Oral Liqd Udc PO 30 ml Q4H PRN Administration Constipation Metoprolol Tartrate 100 mg 08/20/21 11:00 08/31/21 22:40 Metoprolol Tartrate 100 Mg Tab PO 100 mg BID HAM Administration Ondansetron HCl 4 mg 08/17/21 04:09 Ondansetron 4 Mg/2 Ml Inj IV Q8H PRN Nausea And Vomiting Simple Syrup 15 ml 08/26/21 16:00 Simple Syrup 15 Ml FEEDTUBE PRN PRN Hypoglycemia Simple Syrup 30 ml 08/26/21 16:00 Simple Syrup 15 Ml FEEDTUBE PRN PRN Hypoglycemia Sodium Bicarbonate 325 mg 08/26/21 16:00 Sodium Bicarbonate 325 Mg Tab FEEDTUBE PRN PRN For Clogged Feeding Tube Sodium Chloride 10 ml 08/17/21 10:00 08/31/21 22:24 Sodium Chloride 0.9% 10 Ml Flush Syringe IV Not Given BID HAM Sodium Chloride 10 ml 08/17/21 04:09 08/19/21 02:59 Sodium Chloride 0.9% 10 Ml Flush Syringe IV 10 ml PRN PRN Administration LINE FLUSH
--- NOTE | 2021-09-01 08:23 | Progress Note ---
Assessment and Plan Possible Sepsis- high grade fevers, tachycardia, acute encephalopathy, tachypnea-resolved DKA (Diabetic Ketoacidosis)-resolved Acute Metabolic Encephalopathy-resolved h/o CVA (cerebral infarction) with left-sided deficits End Stage renal Disease(ESRD) on HD HTN (Hypertension) h/o Hypothyroidism s/p thrombectomy. -Continue to Titrate supplemental oxygen to keep SpO2 89-92% -Continue with aspiration precaution -Continue with modified oral diet with aspiration precautions -Supportive HD per Renal -Continue to monitor hemodynamics closely -Monitor blood glucose, avoid hypoglycemia -VTE prophylaxis- heparin -Continue all supportive care, seizure precautions -Maintain sleep-wake cycle -Mobility per facility protocol, off loading and frequent turning to prevent pressure ulcers All other care per primary service and other consulting physicians Discharge planning per primary service CONDITION:FAIR PROGNOSIS:FAIR CODE STATUS: FULL CODE Subjective Date of service: 09/01/21 Principal diagnosis: Possible Sepsis; DKA; AMS; h/o CVA left hemiparesis; ESRD on Dialysis; HTN Interval history: Follow up: DKA; acute encephaloapthy Seen and examined. Vitals, labs, medications, chart reviewed. Discussed with nursing, no adverse overnight events. Patient is awake and alert, slow speech but is talking and appropriately an swering questions. She is on a modified diet but needs help with her tray. She denies any chest pain, no shortness of breath, no fevers, no chills, no nausea or vomiting. Objective Vital Signs - 12hr 08/31/21 08/31/21 08/31/21 20:37 22:00 22:39 Temperature Pulse Rate 89 87 Respiratory 18 Rate Blood Pressure 189/62 145/64 O2 Sat by Pulse 97 98 Oximetry 08/31/21 09/01/21 09/01/21 22:40 03:40 07:28 Temperature 98.9 F 97.9 F Pulse Rate 86 73 72 Respiratory 18 16 Rate Blood Pressure 145/64 157/71 118/67 O2 Sat by Pulse 97 95 Oximetry Constitutional: no acute distress, alert Eyes: non-icteric ENT: oropharynx moist Neck: supple, no lymphadenopathy, no JVD, other (large circumference) Effort: normal Ascultation: Bilateral: clear, diminished breath sounds Percussion: Bilateral: not dull Cardiovascular: regular rate and rhythm, other (S1,S2) Gastrointestinal: normoactive bowel sounds, soft, non-tender, non-distended (protuberant), other (obese) Integumentary: normal Extremities: no cyanosis, no edema, pulses normal, no ischemia or petechiae Neurologic: normal mental status, pupils equal and round, CN II-XII normal Psychiatric: mood appropriate, affect normal CBC and BMP: 08/30/21 05:12 08/30/21 05:12 ABG, PT/INR, D-dimer: PT/INR, D-dimer PT 14.0 Sec. (12.2-14.9) 08/23/21 22:59 INR 0.97 (0.87-1.13) 08/23/21 22:59 D-Dimer 2695.37 ng/mlDDU (0-234) H 08/17/21 14:40 Abnormal lab findings: Abnormal Labs 08/17/21 08/17/21 08/17/21 00:33 00:33 02:07 WBC MCH RDW 19.7 H Lymph % (Auto) 10.5 L [place] % (Auto) Lymph # (Auto) 1.1 L [place] # (Auto) Baso # (Auto) Seg Neutrophils % 79.1 H Seg Neutrophils # 8.6 H D-Dimer Sodium 132 L 134 L Chloride 87.8 L 88.4 L Carbon Dioxide 21 L BUN 61 H 61 H Creatinine 10.1 H 10.3 H Glucose 594 H* 533 H* POC Glucose Hemoglobin A1c Calcium Phosphorus Magnesium ALT < 5 L Alkaline Phosphatase 182 H NT-Pro-B Natriuret Pep 51016 H Albumin HDL Cholesterol TSH Salicylates Acetaminophen 08/17/21 08/17/21 08/17/21 02:07 02:07 02:07 WBC MCH RDW Lymph % (Auto) [place] % (Auto) Lymph # (Auto) [place] # (Auto) Baso # (Auto) Seg Neutrophils % Seg Neutrophils # D-Dimer Sodium Chloride Carbon Dioxide BUN Creatinine Glucose POC Glucose Hemoglobin A1c Calcium Phosphorus Magnesium ALT Alkaline Phosphatase NT-Pro-B Natriuret Pep Albumin HDL Cholesterol TSH 5.080 H Salicylates < 0.3 L Acetaminophen 5.0 L 08/17/21 08/17/21 08/17/21 04:20 04:20 05:09 WBC MCH RDW Lymph % (Auto) [place] % (Auto) Lymph # (Auto) [place] # (Auto) Baso # (Auto) Seg Neutrophils % Seg Neutrophils # D-Dimer Sodium 136 L Chloride 90.9 L Carbon Dioxide BUN 61 H Creatinine 10.4 H Glucose 351 H POC Glucose 298 H Hemoglobin A1c Calcium Phosphorus 6.20 H Magnesium ALT Alkaline Phosphatase NT-Pro-B Natriuret Pep Albumin HDL Cholesterol TSH Salicylates Acetaminophen 08/17/21 08/17/21 08/17/21 09:58 10:53 13:14 WBC MCH RDW Lymph % (Auto) [place] % (Auto) Lymph # (Auto) [place] # (Auto) Baso # (Auto) Seg Neutrophils % Seg Neutrophils # D-Dimer Sodium Chloride Carbon Dioxide BUN Creatinine Glucose POC Glucose 139 H 162 H 145 H Hemoglobin A1c Calcium Phosphorus Magnesium ALT Alkaline Phosphatase NT-Pro-B Natriuret Pep Albumin HDL Cholesterol TSH Salicylates Acetaminophen 08/17/21 08/17/21 08/17/21 14:40 14:40 14:40 WBC MCH RDW Lymph % (Auto) [place] % (Auto) Lymph # (Auto) [place] # (Auto) Baso # (Auto) Seg Neutrophils % Seg Neutrophils # D-Dimer 2695.37 H Sodium Chloride 96.7 L Carbon Dioxide BUN 63 H Creatinine 10.7 H Glucose 145 H POC Glucose Hemoglobin A1c Calcium Phosphorus Magnesium ALT Alkaline Phosphatase NT-Pro-B Natriuret Pep Albumin HDL Cholesterol 30 L TSH Salicylates Acetaminophen 08/17/21 08/17/21 08/17/21 14:40 16:45 17:47 WBC MCH RDW Lymph % (Auto) [place] % (Auto) Lymph # (Auto) [place] # (Auto) Baso # (Auto) Seg Neutrophils % Seg Neutrophils # D-Dimer Sodium Chloride 96.2 L Carbon Dioxide BUN 44 H Creatinine 7.2 H Glucose 167 H POC Glucose 136 H 165 H Hemoglobin A1c Calcium Phosphorus Magnesium ALT Alkaline Phosphatase NT-Pro-B Natriuret Pep Albumin HDL Cholesterol TSH Salicylates Acetaminophen 08/17/21 08/17/21 08/17/21 18:01 21:01 22:40 WBC MCH RDW Lymph % (Auto) [place] % (Auto) Lymph # (Auto) [place] # (Auto) Baso # (Auto) Seg Neutrophils % Seg Neutrophils # D-Dimer Sodium Chloride 97.1 L 96.4 L Carbon Dioxide BUN 39 H 40 H Creatinine 8.0 H 8.5 H Glucose 122 H 109 H POC Glucose 172 H Hemoglobin A1c Calcium Phosphorus Magnesium ALT Alkaline Phosphatase NT-Pro-B Natriuret Pep Albumin HDL Cholesterol TSH Salicylates Acetaminophen 08/17/21 08/18/21 08/18/21 22:40 02:13 04:56 WBC MCH 27 L RDW 19.7 H Lymph % (Auto) [place] % (Auto) Lymph # (Auto) [place] # (Auto) Baso # (Auto) Seg Neutrophils % Seg Neutrophils # D-Dimer Sodium Chloride 96.8 L Carbon Dioxide BUN 44 H Creatinine 9.3 H Glucose 170 H POC Glucose 190 H Hemoglobin A1c Calcium Phosphorus 6.70 H Magnesium ALT Alkaline Phosphatase NT-Pro-B Natriuret Pep Albumin HDL Cholesterol TSH Salicylates Acetaminophen 08/18/21 08/18/21 08/18/21 04:56 04:56 17:01 WBC MCH 27 L RDW 19.7 H Lymph % (Auto) [place] % (Auto) 9.7 H Lymph # (Auto) [place] # (Auto) Baso # (Auto) Seg Neutrophils % Seg Neutrophils # D-Dimer Sodium Chloride Carbon Dioxide BUN Creatinine Glucose POC Glucose 228 H Hemoglobin A1c 10.2 H Calcium Phosphorus Magnesium ALT Alkaline Phosphatase NT-Pro-B Natriuret Pep Albumin HDL Cholesterol TSH Salicylates Acetaminophen 08/18/21 08/19/21 08/19/21 23:58 04:37 04:37 WBC MCH 27 L RDW 19.5 H Lymph % (Auto) [place] % (Auto) Lymph # (Auto) [place] # (Auto) Baso # (Auto) Seg Neutrophils % Seg Neutrophils # D-Dimer Sodium Chloride 96.7 L Carbon Dioxide 21 L BUN 57 H Creatinine 10.2 H Glucose 151 H POC Glucose 192 H Hemoglobin A1c Calcium Phosphorus Magnesium ALT Alkaline Phosphatase NT-Pro-B Natriuret Pep Albumin HDL Cholesterol TSH Salicylates Acetaminophen 08/19/21 08/19/21 08/20/21 17:46 22:59 04:24 WBC MCH RDW Lymph % (Auto) [place] % (Auto) Lymph # (Auto) [place] # (Auto) Baso # (Auto) Seg Neutrophils % Seg Neutrophils # D-Dimer Sodium 133 L Chloride 87.9 L Carbon Dioxide 15 L BUN 33 H Creatinine 7.3 H Glucose 365 H POC Glucose 217 H 282 H Hemoglobin A1c Calcium Phosphorus 6.50 H Magnesium ALT Alkaline Phosphatase NT-Pro-B Natriuret Pep Albumin HDL Cholesterol TSH Salicylates Acetaminophen 08/20/21 08/20/21 08/20/21 06:07 07:51 15:37 WBC MCH RDW Lymph % (Auto) [place] % (Auto) Lymph # (Auto) [place] # (Auto) Baso # (Auto) Seg Neutrophils % Seg Neutrophils # D-Dimer Sodium Chloride Carbon Dioxide BUN Creatinine Glucose POC Glucose 398 H 308 H 247 H Hemoglobin A1c Calcium Phosphorus Magnesium ALT Alkaline Phosphatase NT-Pro-B Natriuret Pep Albumin HDL Cholesterol TSH Salicylates Acetaminophen 08/20/21 08/21/21 08/21/21 23:22 04:45 05:07 WBC MCH RDW Lymph % (Auto) [place] % (Auto) Lymph # (Auto) [place] # (Auto) Baso # (Auto) Seg Neutrophils % Seg Neutrophils # D-Dimer Sodium 134 L Chloride 92.9 L Carbon Dioxide BUN 48 H Creatinine 8.0 H Glucose 389 H POC Glucose 316 H 407 H Hemoglobin A1c Calcium 10.6 H Phosphorus Magnesium ALT Alkaline Phosphatase NT-Pro-B Natriuret Pep Albumin HDL Cholesterol TSH Salicylates Acetaminophen 08/21/21 08/21/21 08/21/21 11:37 15:52 23:44 WBC MCH RDW Lymph % (Auto) [place] % (Auto) Lymph # (Auto) [place] # (Auto) Baso # (Auto) Seg Neutrophils % Seg Neutrophils # D-Dimer Sodium Chloride Carbon Dioxide BUN Creatinine Glucose POC Glucose 244 H 325 H 221 H Hemoglobin A1c Calcium Phosphorus Magnesium ALT Alkaline Phosphatase NT-Pro-B Natriuret Pep Albumin HDL Cholesterol TSH Salicylates Acetaminophen 08/22/21 08/22/21 08/23/21 06:06 12:27 00:37 WBC MCH RDW Lymph % (Auto) [place] % (Auto) Lymph # (Auto) [place] # (Auto) Baso # (Auto) Seg Neutrophils % Seg Neutrophils # D-Dimer Sodium Chloride Carbon Dioxide BUN Creatinine Glucose POC Glucose 224 H 247 H 341 H Hemoglobin A1c Calcium Phosphorus Magnesium ALT Alkaline Phosphatase NT-Pro-B Natriuret Pep Albumin HDL Cholesterol TSH Salicylates Acetaminophen 08/23/21 08/23/21 08/23/21 04:20 05:37 11:56 WBC MCH RDW Lymph % (Auto) [place] % (Auto) Lymph # (Auto) [place] # (Auto) Baso # (Auto) Seg Neutrophils % Seg Neutrophils # D-Dimer Sodium Chloride 94.4 L Carbon Dioxide BUN 49 H Creatinine 7.7 H Glucose 201 H POC Glucose 210 H 162 H Hemoglobin A1c Calcium 10.9 H Phosphorus Magnesium ALT Alkaline Phosphatase NT-Pro-B Natriuret Pep Albumin HDL Cholesterol TSH Salicylates Acetaminophen 08/23/21 08/23/21 08/23/21 17:45 22:58 22:59 WBC 12.2 H MCH 26 L RDW 20.3 H Lymph % (Auto) [place] % (Auto) Lymph # (Auto) [place] # (Auto) Baso # (Auto) Seg Neutrophils % Seg Neutrophils # D-Dimer Sodium Chloride Carbon Dioxide BUN Creatinine Glucose POC Glucose 211 H 218 H Hemoglobin A1c Calcium Phosphorus Magnesium ALT Alkaline Phosphatase NT-Pro-B Natriuret Pep Albumin HDL Cholesterol TSH Salicylates Acetaminophen 08/23/21 08/24/21 08/24/21 22:59 04:23 04:23 WBC 15.4 H MCH 27 L RDW 19.8 H Lymph % (Auto) [place] % (Auto) 13.0 H Lymph # (Auto) [place] # (Auto) 2.0 H Baso # (Auto) 0.2 H Seg Neutrophils % Seg Neutrophils # 9.8 H D-Dimer Sodium 136 L Chloride 93.0 L Carbon Dioxide BUN 73 H Creatinine 8.7 H 9.2 H Glucose 145 H POC Glucose Hemoglobin A1c Calcium 10.7 H Phosphorus 6.30 H Magnesium 2.70 H ALT 6 L Alkaline Phosphatase 157 H NT-Pro-B Natriuret Pep Albumin 3.7 L HDL Cholesterol TSH Salicylates Acetaminophen 08/24/21 08/24/21 08/24/21 05:09 11:20 18:28 WBC MCH RDW Lymph % (Auto) [place] % (Auto) Lymph # (Auto) [place] # (Auto) Baso # (Auto) Seg Neutrophils % Seg Neutrophils # D-Dimer Sodium Chloride Carbon Dioxide BUN Creatinine Glucose POC Glucose 155 H 110 H 182 H Hemoglobin A1c Calcium Phosphorus Magnesium ALT Alkaline Phosphatase NT-Pro-B Natriuret Pep Albumin HDL Cholesterol TSH Salicylates Acetaminophen 08/25/21 08/25/21 08/25/21 00:15 04:44 11:28 WBC 11.3 H MCH 27 L RDW 20.4 H Lymph % (Auto) [place] % (Auto) Lymph # (Auto) [place] # (Auto) Baso # (Auto) Seg Neutrophils % Seg Neutrophils # D-Dimer Sodium Chloride Carbon Dioxide BUN Creatinine Glucose POC Glucose 247 H 189 H Hemoglobin A1c Calcium Phosphorus Magnesium ALT Alkaline Phosphatase NT-Pro-B Natriuret Pep Albumin HDL Cholesterol TSH Salicylates Acetaminophen 08/25/21 08/25/21 08/26/21 16:42 23:29 05:22 WBC MCH RDW Lymph % (Auto) [place] % (Auto) Lymph # (Auto) [place] # (Auto) Baso # (Auto) Seg Neutrophils % Seg Neutrophils # D-Dimer Sodium Chloride Carbon Dioxide BUN Creatinine 10.0 H Glucose POC Glucose 169 H 213 H Hemoglobin A1c Calcium Phosphorus Magnesium ALT Alkaline Phosphatase NT-Pro-B Natriuret Pep Albumin HDL Cholesterol TSH Salicylates Acetaminophen 08/26/21 08/26/21 08/26/21 06:12 11:47 23:33 WBC MCH RDW Lymph % (Auto) [place] % (Auto) Lymph # (Auto) [place] # (Auto) Baso # (Auto) Seg Neutrophils % Seg Neutrophils # D-Dimer Sodium Chloride Carbon Dioxide BUN Creatinine Glucose POC Glucose 191 H 197 H 197 H Hemoglobin A1c Calcium Phosphorus Magnesium ALT Alkaline Phosphatase NT-Pro-B Natriuret Pep Albumin HDL Cholesterol TSH Salicylates Acetaminophen 08/27/21 08/27/21 08/27/21 06:02 06:02 06:17 WBC MCH 27 L RDW 20.1 H Lymph % (Auto) [place] % (Auto) 14.2 H Lymph # (Auto) [place] # (Auto) 1.4 H Baso # (Auto) Seg Neutrophils % Seg Neutrophils # D-Dimer Sodium 134 L Chloride 93.8 L Carbon Dioxide BUN 56 H Creatinine 6.4 H Glucose 253 H POC Glucose 250 H Hemoglobin A1c Calcium Phosphorus 6.00 H Magnesium 2.50 H ALT < 5 L Alkaline Phosphatase 135 H NT-Pro-B Natriuret Pep Albumin 3.6 L HDL Cholesterol TSH Salicylates Acetaminophen 08/27/21 08/27/21 08/27/21 11:21 16:05 23:13 WBC MCH RDW Lymph % (Auto) [place] % (Auto) Lymph # (Auto) [place] # (Auto) Baso # (Auto) Seg Neutrophils % Seg Neutrophils # D-Dimer Sodium Chloride Carbon Dioxide BUN Creatinine Glucose POC Glucose 287 H 321 H 286 H Hemoglobin A1c Calcium Phosphorus Magnesium ALT Alkaline Phosphatase NT-Pro-B Natriuret Pep Albumin HDL Cholesterol TSH Salicylates Acetaminophen 08/28/21 08/28/21 08/28/21 05:11 05:29 11:30 WBC MCH RDW Lymph % (Auto) [place] % (Auto) Lymph # (Auto) [place] # (Auto) Baso # (Auto) Seg Neutrophils % Seg Neutrophils # D-Dimer Sodium 134 L Chloride 91.8 L Carbon Dioxide BUN 79 H Creatinine 8.2 H Glucose 230 H POC Glucose 225 H 190 H Hemoglobin A1c Calcium 10.8 H Phosphorus Magnesium ALT Alkaline Phosphatase NT-Pro-B Natriuret Pep Albumin HDL Cholesterol TSH Salicylates Acetaminophen 08/28/21 08/29/21 08/29/21 15:53 00:04 04:29 WBC MCH 27 L RDW 20.6 H Lymph % (Auto) [place] % (Auto) Lymph # (Auto) [place] # (Auto) Baso # (Auto) Seg Neutrophils % Seg Neutrophils # D-Dimer Sodium Chloride Carbon Dioxide BUN Creatinine Glucose POC Glucose 235 H 223 H Hemoglobin A1c Calcium Phosphorus Magnesium ALT Alkaline Phosphatase NT-Pro-B Natriuret Pep Albumin HDL Cholesterol TSH Salicylates Acetaminophen 08/29/21 08/29/21 08/29/21 04:29 05:37 16:14 WBC MCH RDW Lymph % (Auto) [place] % (Auto) Lymph # (Auto) [place] # (Auto) Baso # (Auto) Seg Neutrophils % Seg Neutrophils # D-Dimer Sodium Chloride Carbon Dioxide BUN Creatinine 9.8 H Glucose POC Glucose 174 H 200 H Hemoglobin A1c Calcium Phosphorus Magnesium ALT Alkaline Phosphatase NT-Pro-B Natriuret Pep Albumin HDL Cholesterol TSH Salicylates Acetaminophen 08/30/21 08/30/21 08/30/21 00:10 05:12 05:12 WBC MCH 27 L RDW 20.2 H Lymph % (Auto) [place] % (Auto) 12.7 H Lymph # (Auto) [place] # (Auto) 1.4 H Baso # (Auto) 0.2 H Seg Neutrophils % Seg Neutrophils # D-Dimer Sodium Chloride 97.5 L Carbon Dioxide BUN 58 H Creatinine 6.9 H Glucose 112 H POC Glucose 111 H Hemoglobin A1c Calcium 10.8 H Phosphorus 6.00 H Magnesium 2.80 H ALT Alkaline Phosphatase 147 H NT-Pro-B Natriuret Pep Albumin HDL Cholesterol TSH Salicylates Acetaminophen 08/30/21 08/31/21 08/31/21 16:40 00:27 04:30 WBC MCH RDW Lymph % (Auto) [place] % (Auto) Lymph # (Auto) [place] # (Auto) Baso # (Auto) Seg Neutrophils % Seg Neutrophils # D-Dimer Sodium Chloride Carbon Dioxide BUN Creatinine Glucose POC Glucose 224 H 200 H 125 H Hemoglobin A1c Calcium Phosphorus Magnesium ALT Alkaline Phosphatase NT-Pro-B Natriuret Pep Albumin HDL Cholesterol TSH Salicylates Acetaminophen Allied health notes reviewed: nursing
[2021-09-01] MEDS: amLODIPine 10 MG TAB PO SCH (09:43)
[2021-09-01] MEDS: ASPIRIN 325 MG TAB FEEDTUBE SCH (09:43)
[2021-09-01] MEDS: LOSARTAN 50 MG TAB PO SCH (09:43)
[2021-09-01] MEDS: cloNIDine 0.1 MG TAB PO SCH ×3 (09:43→20:58)
[2021-09-01] MEDS: CITALOPRAM 20 MG TAB PO SCH (09:43)
[2021-09-01] MEDS: levETIRAcetam 500 MG TAB PO SCH (09:43)
[2021-09-01] MEDS: hydrALAZINE 100 MG TAB PO SCH ×3 (09:44→20:58)
[2021-09-01] MEDS: FAMOTIDINE 20 MG TAB FEEDTUBE SCH (09:44)
[2021-09-01] MEDS: METOPROLOL TARTRATE 100 MG TAB PO SCH ×2 (09:44→21:01)
--- NOTE | 2021-09-01 11:40 | Progress Note ---
Assessment and Plan Assessment and plan: #Right upper extremity AV graft thrombosis #End Stage Renal Disease requiring hemodialysis -s/p AVF declotting 08/26 via IR/Vascular surgery -s/p vascular surgery/ thrombectomy of right arm AV loop graft. -temporary vasc cath removed 08/26 -continue HD per Nephro -avoid nephrotoxic medications; Renally dose medications #DKA (Diabetic Ketoacidosis)-resolved #Type II diabetes, insulin dependent -s/p insulin gtt -Hgb A1C 10.2% -continue lantus 25U BID, continue SSI -goal glucose 140-180 while inpatient; currently controlled #Sepsis ruled out -patient afebrile, WBC normalizing -Blood cultures with NGTD x 5days -s/p IV abx, none needed due to no infectious process found -ID consulted, signed off #Acute Metabolic Encephalopathy-improving #H/o CVA (cerebral infarction) with left-sided deficits -Multifactorial, DKA vs azotemia vs infectious process -Awake and tracking and following commands this morning -CT head and MRI brain noted with no acute abnormality -Neurology consulted, appreciated recommendations -c/f seizure, continue Keppra -PRN Haldol for agitation -Fall and safety precaution -Aspiration precaution -Frequent reorientation -Avoid benzodiazepine to reduce the possibility of delirium -Maintenance of sleep-wake cycle -PT/OT/Speech ordered #Hypertension -continue home BP medications -PRN Hydralazine and Labetalol for SBP greater than 160 #Elevated D-Dimer #H/o DVT -BLE doppler showed no evidence for acute DVT in either lower extremity. 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 -Per patient's mother, patient has been off coumadin for a couple of years -Continue Heparin SubQ -low suspicion for PE, will order V/Q scan if return of fever, dyspnea -Patient might benefit from PO AC at discharge, awaiting Vascular surgery recommendations #Hypothyroidism -continue synthroid #Dysphagia-improving -Patient failed initial speech eval due to mental status -continue TF with pureed diet for now, Nutrition following #GI/ DVT Prophylaxis -PPI- Pepcid -heparin SubQ -SCDs to bilateral lower extremities while in bed #Discharge planning -continue with diet per Speech Therapy recommendations; medically stable for discharge -Plan to discharge patient to rehab History Interval history: No acute events overnight. Patient alert and oriented x4. She has no complaints at this time. Hospitalist Physical - Physical exam Narrative exam: GENERAL: Well-developed well-nourished. In no acute distress. HEENT: Normocephalic, atraumatic. CHEST/LUNGS: CTAB on room air HEART/CARDIOVASCULAR: RRR. No murmur, rubs or gallops appreciated. ABDOMEN: +BS. NT/ND. NEURO: No focal motor deficit. Follows all commands. EXTREMITIES: Right upper extremity aVF. No cyanosis, clubbing or edema. PSYCH: Cooperative. - Constitutional Vitals: Temp Pulse Resp BP Pulse Ox 97.9 F 72 16 118/67 95 09/01/21 07:28 09/01/21 09:44 09/01/21 07:28 09/01/21 09:44 09/01/21 07:28 General appearance: Present: no acute distress, well-nourished, other (Does not respond, nonverbal, randomly moves) Results - Labs CBC & Chem 7: 08/30/21 05:12 08/30/21 05:12 Labs: Laboratory Last Values WBC 10.9 K/mm3 (4.5-11.0) 08/30/21 05:12 RBC 4.23 M/mm3 (3.65-5.03) 08/30/21 05:12 Hgb 11.5 gm/dl (10.1-14.3) 08/30/21 05:12 Hct 35.8 % (30.3-42.9) 08/30/21 05:12 MCV 85 fl (79-97) 08/30/21 05:12 MCH 27 pg (28-32) L 08/30/21 05:12 MCHC 32 % (30-34) 08/30/21 05:12 RDW 20.2 % (13.2-15.2) H 08/30/21 05:12 Plt Count 195 K/mm3 (140-440) 08/30/21 05:12 Lymph % (Auto) 24.9 % (13.4-35.0) 08/30/21 05:12 [place] % (Auto) 12.7 % (0.0-7.3) H 08/30/21 05:12 Eos % (Auto) 3.4 % (0.0-4.3) 08/30/21 05:12 Baso % (Auto) 1.4 % (0.0-1.8) 08/30/21 05:12 Lymph # (Auto) 2.7 K/mm3 (1.2-5.4) 08/30/21 05:12 [place] # (Auto) 1.4 K/mm3 (0.0-0.8) H 08/30/21 05:12 Eos # (Auto) 0.4 K/mm3 (0.0-0.4) 08/30/21 05:12 Baso # (Auto) 0.2 K/mm3 (0.0-0.1) H 08/30/21 05:12 Seg Neutrophils % 57.6 % (40.0-70.0) 08/30/21 05:12 Seg Neutrophils # 6.3 K/mm3 (1.8-7.7) 08/30/21 05:12 PT 14.0 Sec. (12.2-14.9) 08/23/21 22:59 INR 0.97 (0.87-1.13) 08/23/21 22:59 APTT 27.9 Sec. (24.2-36.6) 08/23/21 22:59 D-Dimer 2695.37 ng/mlDDU (0-234) H 08/17/21 14:40 Sodium 138 mmol/L (137-145) 08/30/21 05:12 Potassium 4.2 mmol/L (3.6-5.0) 08/30/21 05:12 Chloride 97.5 mmol/L (98-107) L 08/30/21 05:12 Carbon Dioxide 26 mmol/L (22-30) 08/30/21 05:12 Anion Gap 19 mmol/L 08/30/21 05:12 BUN 58 mg/dL (7-17) H 08/30/21 05:12 Creatinine 6.9 mg/dL (0.6-1.2) H 08/30/21 05:12 Estimated GFR 8 ml/min 08/30/21 05:12 BUN/Creatinine Ratio 8 % 08/30/21 05:12 Glucose 112 mg/dL (65-100) H 08/30/21 05:12 POC Glucose 71 mg/dL (70-105) 09/01/21 05:18 Hemoglobin A1c 10.2 % (4-6) H 08/18/21 04:56 Lactic Acid 1.70 mmol/L (0.7-2.0) 08/17/21 02:07 Calcium 10.8 mg/dL (8.4-10.2) H 08/30/21 05:12 Phosphorus 6.00 mg/dL (2.5-4.5) H 08/30/21 05:12 Magnesium 2.80 mg/dL (1.7-2.3) H 08/30/21 05:12 Total Bilirubin 0.30 mg/dL (0.1-1.2) 08/30/21 05:12 AST 32 units/L (5-40) 08/30/21 05:12 ALT 8 units/L (7-56) 08/30/21 05:12 Alkaline Phosphatase 147 units/L (35-129) H 08/30/21 05:12 NT-Pro-B Natriuret Pep 06820 pg/mL (0-450) H 08/17/21 02:07 Total Protein 7.6 g/dL (6.3-8.2) 08/30/21 05:12 Albumin 3.9 g/dL (3.9-5) 08/30/21 05:12 Albumin/Globulin Ratio 1.1 % 08/30/21 05:12 Triglycerides 128 mg/dL (2-149) 08/17/21 14:40 Cholesterol 128 mg/dL (50-199) 08/17/21 14:40 LDL Cholesterol Direct 69 mg/dL (50-130) 08/17/21 14:40 HDL Cholesterol 30 mg/dL (40-59) L 08/17/21 14:40 Cholesterol/HDL Ratio 4.26 % 08/17/21 14:40 TSH 5.080 mlU/mL (0.270-4.200) H 08/17/21 02:07 Salicylates < 0.3 mg/dL (2.8-20.0) L 08/17/21 02:07 Acetaminophen 5.0 ug/mL (10.0-30.0) L 08/17/21 02:07 Plasma/Serum Alcohol < 0.01 % (0-0.07) 08/17/21 02:07 SARS-CoV-2 (PCR) Negative (Negative) 08/17/21 09:12 Hepatitis A IgM Ab Non-reactive (NonReactive) 08/17/21 14:40 Hep Bs Antigen Non-reactive (Negative) 08/17/21 14:40 Hep B Core IgM Ab Non-reactive (NonReactive) 08/17/21 14:40 Hepatitis C Antibody Non-reactive (NonReactive) 08/17/21 14:40 Blood Type O POSITIVE 08/17/21 17:43 Antibody Screen Negative 08/17/21 17:43 Tomas/IV: Voiding Method External Female Catheter Active Medications - Current Medications Current Medications: Generic Name Dose Route Start Last Admin Trade Name Freq PRN Reason Stop Dose Admin Acetaminophen 650 mg 08/17/21 07:50 08/30/21 20:25 Acetaminophen 325 Mg Tab PO 650 mg Q6H PRN Administration Pain, Mild (1-3) Acetaminophen 650 mg 08/17/21 08:17 08/17/21 14:49 Acetaminophen [address] 650 mg Q4H PRN Administration Pain, Mild (1-3) Albuterol 2.5 mg 08/29/21 20:00 Albuterol 2.5 Mg/3 Ml Nebu IH Q4HRT PRN Shortness Of Breath Amlodipine Besylate 10 mg 08/22/21 11:00 09/01/21 09:43 Amlodipine 10 Mg Tab PO 10 mg QDAY HAM Administration Lipase/Protease/Amylase 1 each 08/26/21 16:00 Lipase 10,500/Protease 25,000/Amylase 43,750 (Units) Dr Lopez FEEDTNIKOLAY PRN PRN For Clogged Feeding Tube Aspirin 325 mg 08/22/21 10:00 09/01/21 09:43 Aspirin 325 Mg Tab FEEDTUBE 325 mg QDAY HAM Administration Atorvastatin Calcium 40 mg 08/29/21 22:00 08/31/21 22:21 Atorvastatin 40 Mg Tab PO 40 mg QHS HAM Administration Citalopram Hydrobromide 20 mg 08/22/21 11:00 09/01/21 09:43 Citalopram 20 Mg Tab PO 20 mg QDAY HAM Administration Clonidine HCl 0.1 mg 08/29/21 20:00 09/01/21 09:43 Clonidine 0.1 Mg Tab PO 0.1 mg TID HAM Administration Dextrose 50 ml 08/17/21 23:37 Dextrose 50% In Water (25gm) 50 Ml Syringe IV Q30MIN PRN Hypoglycemia Protocol Duloxetine HCl 30 mg 08/21/21 10:00 08/23/21 17:08 Duloxetine 30 Mg Cap PO Not Given QDAY HAM Famotidine 20 mg 08/20/21 10:00 09/01/21 09:44 Famotidine 20 Mg Tab FEEDTUBE 20 mg QDAY HAM Administration Haloperidol Lactate 5 mg 08/19/21 12:00 08/31/21 09:10 Haloperidol Lactate 5 Mg/1 Ml Inj IV 5 mg Q6H PRN Administration Agitation Heparin Sodium (Porcine) 5,000 unit 08/17/21 06:00 09/01/21 07:19 Heparin 5,000 Unit/1 Ml Vial SUB-Q 5,000 unit Q8HR HAM Administration Heparin Sodium (Porcine) 3,000 unit 08/17/21 07:41 08/31/21 10:38 Heparin 10,000 Units/10 Ml Vial IV 3,000 unit KATI PRN Administration hemodialysis Hydralazine HCl 100 mg 08/17/21 09:00 09/01/21 09:44 Hydralazine 100 Mg Tab PO 100 mg TID HAM Administration Hydralazine HCl 10 mg 08/17/21 07:56 08/25/21 05:19 Hydralazine 20 Mg/1 Ml Inj IV 10 mg Q4HR PRN Administration Hypertension Hydromorphone HCl 0.25 mg 08/17/21 07:50 08/31/21 16:39 Hydromorphone 0.5 Mg/0.5 Ml Inj IV 0.25 mg Q4H PRN Administration Pain, Moderate (4-6) Sodium Chloride 100 mls @ 999 mls/hr 08/30/21 12:00 Nacl 0.9% IV KATI PRN Hypotension Insulin Glargine 25 units 08/28/21 10:00 08/31/21 22:22 Insulin Glargine 100 Units/Ml SUB-Q 25 units BID HAM Administration Insulin Human Lispro 0 unit 08/18/21 00:00 09/01/21 06:42 Insulin Lispro 100 Unit/Ml SUB-Q Not Given Q6HR [facility] Protocol Levetiracetam 500 mg 08/20/21 10:00 09/01/21 09:43 Levetiracetam 500 Mg Tab PO 500 mg DAILY HAM Administration Levothyroxine Sodium 125 mcg 08/22/21 06:00 09/01/21 07:19 Levothyroxine 125 Mcg Tab PO 125 mcg QAM@0600 HAM Administration Losartan Potassium 50 mg 08/17/21 10:00 09/01/21 09:43 Losartan 50 Mg Tab PO 50 mg QDAY HAM Administration Magnesium Hydroxide 30 ml 08/17/21 04:09 08/23/21 23:56 Magnesium Hydroxide (Mom) Oral Liqd Udc PO 30 ml Q4H PRN Administration Constipation Metoprolol Tartrate 100 mg 08/20/21 11:00 09/01/21 09:44 Metoprolol Tartrate 100 Mg Tab PO 100 mg BID HAM Administration Ondansetron HCl 4 mg 08/17/21 04:09 Ondansetron 4 Mg/2 Ml Inj IV Q8H PRN Nausea And Vomiting Simple Syrup 15 ml 08/26/21 16:00 Simple Syrup 15 Ml FEEDTUBE PRN PRN Hypoglycemia Simple Syrup 30 ml 08/26/21 16:00 Simple Syrup 15 Ml FEEDTUBE PRN PRN Hypoglycemia Sodium Bicarbonate 325 mg 08/26/21 16:00 Sodium Bicarbonate 325 Mg Tab FEEDTUBE PRN PRN For Clogged Feeding Tube Sodium Chloride 10 ml 08/17/21 10:00 09/01/21 09:46 Sodium Chloride 0.9% 10 Ml Flush Syringe IV 10 ml BID HAM Administration Sodium Chloride 10 ml 08/17/21 04:09 08/19/21 02:59 Sodium Chloride 0.9% 10 Ml Flush Syringe IV 10 ml PRN PRN Administration LINE FLUSH Nutrition/Malnutrition Assess - Dietary Evaluation Nutrition/Malnutrition Findings: Nutrition Notes Start: 08/17/21 12:51 Freq: Status: Active Protocol: Document 08/29/21 15:07 LOLY (Rec: 08/29/21 15:14 LOLY [id number]) Nutrition Notes Initial or Follow up Reassessment Current Diagnosis CKD (stage V CKD),Diabetes, Hypertension,Stroke Other Pertinent Diagnosis RUE AV graft thrombosis, Dysphagia Current Diet TF - Nepro at 40ml/hr Labs/Tests Cr 9.8 POC Glu: 223, 174 Pertinent Medications Reviewed Height 5 ft 8 in Weight 76.3 kg [place] Body Weight (kg) 63.63 BMI 25.5 Weight change and time frame Wt change noted Weight Status Overweight Subjective/Other Information Per RN, pt tolerating TF at goal rate. Percent of energy/protein needs met: 98% energy 85% pro Burn Absent Trauma Absent #1 Nutrition Diagnosis Inadequate oral intake Diagnosis Progress(for reassessment Continues documentation) Is patient on ventilator? No Is Patient Ambulatory and/or Out of Bed No REE-([facility]-confined to bed) 1763.016 Calculation Used for Recommendations [facility] Additional Notes Pro needs >1.2g/kg:>92g/day Fluid needs 1-1.5L/day Nutrition Intervention Nutrition Support: Continue Nepro at 40ml/hr with 135ml water flush q4h. Kcal 1,728 Protein (gm) 78 Carbohydrates (gm) 155 Fat (gm) 92 Fluid (mL) 698 Fiber (gm) 12 Goal #1 TF tolerance Goal #2 TF to meet at least 75% energy and pro needs Follow-Up By: 09/05/21 Additional Comments F/U: stable TF, wt
[2021-09-01] MEDS: HALOPERIDOL LACTATE 5 MG/1 ML INJ IV PRN (11:41)
[2021-09-01] MEDS: HYDROmorphone 0.5 MG/0.5 ML INJ IV PRN ×2 (17:09→20:59)
[2021-09-01] MEDS: INSULIN GLARGINE 100 UNITS/ML SUB-Q SCH ×2 (21:01)
[2021-09-02] MEDS: INSULIN LISPRO 100 UNIT/ML SUB-Q SCH ×4 (01:18→18:52)
[2021-09-02] MEDS: HYDROmorphone 0.5 MG/0.5 ML INJ IV PRN ×3 (01:19→22:23)
[2021-09-02] MEDS: HEPARIN 5,000 UNIT/1 ML VIAL SUB-Q SCH ×3 (05:39→21:05)
[2021-09-02] MEDS: LEVOTHYROXINE 125 MCG TAB PO SCH (05:40)
--- NOTE | 2021-09-02 09:47 | Progress Note ---
Assessment and Plan 1. ESRD: Patient is on maintenance HD, MWF schedule. Last outpatient HD 08/12/21. Meds dosage based on GFR. Hemodialysis: 08/17, 08/19, 08/22, 08/24, 08/26, 08/28, 08/31. HD today. 2. FEN: Metabolic acidosis, s/p HD, monitor. UF with HD as tolerated. Monitor lytes and volume status. 3. Diabetic Hyperosmolar State, POA: S/p Insulin gtt. Per protocol. 4. Malfunctioning hemodialysis access: Patient presented with non functioning hemodialysis access. S/p angioplasty of R arm AVG. Seen by Vascular. 5. Acute Metabolic Encephalopathy, POA: 2/[address] head and MRI brain negative. MS is better. Seen by Neuro. 6. SIRS versus sepsis: S/p Abx. 7. HTN: Adjust meds as needed. Monitor BP. Subjective: Patient was seen and examined at the bedside. No new complaint. Examination: General appearance: well-developed, well-nourished, appears stated age, no distress HEENT: ATNC, pupils equal Neck: trachea midline Respiratory: Clear to Auscultation Cardiology: regular, S1S2, no murmur Gastrointestinal: soft, normoactive bowel sounds, not tender, ND Integumentary: no rash Neurologic: AO, L sided weakness Ext: no edema noted Hemodialysis access: R arm AVG Subjective Date of service: 09/02/21 Principal diagnosis: Possible Sepsis; DKA; AMS; h/o CVA left hemiparesis; ESRD on Dialysis; HTN Objective - Vital Signs Vital signs: Vital Signs - 12hr 09/01/21 09/01/21 09/02/21 22:00 23:41 03:30 Temperature 98.7 F 98.5 F Pulse Rate 70 67 Respiratory 16 16 Rate Blood Pressure 110/59 111/54 O2 Sat by Pulse 98 97 96 Oximetry 09/02/21 04:00 Temperature Pulse Rate 80 Respiratory Rate Blood Pressure O2 Sat by Pulse Oximetry - Lab 08/30/21 05:12 08/30/21 05:12 Most recent lab results Calcium 10.8 mg/dL (8.4-10.2) H 08/30/21 05:12 Phosphorus 6.00 mg/dL (2.5-4.5) H 08/30/21 05:12 Magnesium 2.80 mg/dL (1.7-2.3) H 08/30/21 05:12 Medications & Allergies - Medications Allergies/Adverse Reactions: Allergies vancomycin Adverse Reaction (Verified 04/02/13 10:16) Hives Home Medications: Home Medications Medication Instructions Recorded Confirmed Last Taken Type Hydralazine HCl [hydrALAZINE] 100 mg PO BID 04/02/13 08/17/21 04/02/13 08:00 History Aspirin/Dipyridamole [Aggrenox] 1 cap PO BID #60 capsule 04/10/13 08/17/21 Unknown Rx Cinacalcet [Sensipar] 60 mg PO QDAY 08/17/21 08/17/21 Unknown History Citalopram [celeXA] 20 mg PO QDAY 08/17/21 08/17/21 Unknown History Gabapentin [Neurontin] 100 mg PO Q8HR 08/17/21 08/17/21 Unknown History Insulin Glargine,Hum.rec.anlog 55 unit SQ BID 08/17/21 08/17/21 Unknown History [Lantus Solostar] Promethazine [Phenergan] 25 mg PO Q6HR PRN 08/17/21 08/17/21 Unknown History Sevelamer Carbonate [Renvela] 800 mg PO TIDWM 08/17/21 08/17/21 Unknown History amLODIPine [Norvasc] 10 mg PO DAILY 08/17/21 08/17/21 Unknown History carvediloL [Coreg] 25 mg PO BID 08/17/21 08/17/21 Unknown History Albuterol Mdi (or & Nicu Only) 2 puff IH QID PRN 08/29/21 08/29/21 Unknown History [ProAir HFA Inhaler] AtorvaSTATin [Lipitor] 40 mg PO QHS 08/29/21 08/29/21 Unknown History Cetirizine HCl [Zyrtec 10mg tab] 10 mg PO QDAY 08/29/21 08/29/21 Unknown History Ferric Citrate (Nf) [Auryxia] 210 mg PO TID 08/29/21 08/29/21 Unknown History Fluticasone [Flonase] 2 spray NS QDAY PRN 08/29/21 08/29/21 Unknown History Furosemide [Lasix TAB] 40 mg PO QDAY 08/29/21 08/29/21 Unknown History Insulin Aspart (Nf) [NovoLOG 15 units SQ TIDAC 08/29/21 08/29/21 Unknown History Flexpen] Metoclopramide [Reglan] 10 mg PO HS 08/29/21 08/29/21 Unknown History Pantoprazole [Protonix] 40 mg PO QDAY 08/29/21 08/29/21 Unknown History Prochlorperazine Maleate 10 mg PO QDAY PRN 08/29/21 08/29/21 Unknown History [Compazine] Sucroferric Oxyhydroxide(Nf) 500 mg PO TIDWM 08/29/21 08/29/21 Unknown History [Velphoro (Nf)] cloNIDine [Catapres] 0.1 mg PO TID 08/29/21 08/29/21 Unknown History Active Medications: Generic Name Dose Route Start Last Admin Trade Name Freq PRN Reason Stop Dose Admin Acetaminophen 650 mg 08/17/21 07:50 08/30/21 20:25 Acetaminophen 325 Mg Tab PO 650 mg Q6H PRN Administration Pain, Mild (1-3) Acetaminophen 650 mg 08/17/21 08:17 08/17/21 14:49 Acetaminophen 650 Mg Rect Supp [place] 650 mg Q4H PRN Administration Pain, Mild (1-3) Albuterol 2.5 mg 08/29/21 20:00 Albuterol 2.5 Mg/3 Ml Nebu IH Q4HRT PRN Shortness Of Breath Amlodipine Besylate 10 mg 08/22/21 11:00 09/01/21 09:43 Amlodipine 10 Mg Tab PO 10 mg QDAY HAM Administration Lipase/Protease/Amylase 1 each 08/26/21 16:00 Lipase 10,500/Protease 25,000/Amylase 43,750 (Units) Dr Lopez FEEDTNIKOLAY PRN PRN For Clogged Feeding Tube Aspirin 325 mg 08/22/21 10:00 09/01/21 09:43 Aspirin 325 Mg Tab FEEDTUBE 325 mg QDAY HAM Administration Atorvastatin Calcium 40 mg 08/29/21 22:00 09/01/21 21:00 Atorvastatin 40 Mg Tab PO 40 mg QHS HAM Administration Citalopram Hydrobromide 20 mg 08/22/21 11:00 09/01/21 09:43 Citalopram 20 Mg Tab PO 20 mg QDAY HAM Administration Clonidine HCl 0.1 mg 08/29/21 20:00 09/01/21 20:58 Clonidine 0.1 Mg Tab PO 0.1 mg TID HAM Administration Dextrose 50 ml 08/17/21 23:37 Dextrose 50% In Water (25gm) 50 Ml Syringe IV Q30MIN PRN Hypoglycemia Protocol Duloxetine HCl 30 mg 08/21/21 10:00 08/23/21 17:08 Duloxetine 30 Mg Cap PO Not Given QDAY HAM Famotidine 20 mg 08/20/21 10:00 09/01/21 09:44 Famotidine 20 Mg Tab FEEDTUBE 20 mg QDAY HAM Administration Haloperidol Lactate 5 mg 08/19/21 12:00 09/01/21 11:41 Haloperidol Lactate 5 Mg/1 Ml Inj IV 5 mg Q6H PRN Administration Agitation Heparin Sodium (Porcine) 5,000 unit 08/17/21 06:00 09/02/21 05:39 Heparin 5,000 Unit/1 Ml Vial SUB-Q 5,000 unit Q8HR HAM Administration Heparin Sodium (Porcine) 3,000 unit 08/17/21 07:41 08/31/21 10:38 Heparin 10,000 Units/10 Ml Vial IV 3,000 unit KATI PRN Administration hemodialysis Hydralazine HCl 100 mg 08/17/21 09:00 09/01/21 20:58 Hydralazine 100 Mg Tab PO 100 mg TID HAM Administration Hydralazine HCl 10 mg 08/17/21 07:56 08/25/21 05:19 Hydralazine 20 Mg/1 Ml Inj IV 10 mg Q4HR PRN Administration Hypertension Hydromorphone HCl 0.25 mg 08/17/21 07:50 09/02/21 01:19 Hydromorphone 0.5 Mg/0.5 Ml Inj IV 0.25 mg Q4H PRN Administration Pain, Moderate (4-6) Sodium Chloride 100 mls @ 999 mls/hr 08/30/21 12:00 Nacl 0.9% IV KATI PRN Hypotension Insulin Glargine 22 units 09/02/21 10:00 Insulin Glargine 100 Units/Ml SUB-Q BID [facility] Insulin Human Lispro 0 unit 08/18/21 00:00 09/02/21 05:40 Insulin Lispro 100 Unit/Ml SUB-Q Not Given Q6HR HAM Protocol Levetiracetam 500 mg 08/20/21 10:00 09/01/21 09:43 Levetiracetam 500 Mg Tab PO 500 mg DAILY HAM Administration Levothyroxine Sodium 125 mcg 08/22/21 06:00 09/02/21 05:40 Levothyroxine 125 Mcg Tab PO 125 mcg QAM@0600 HAM Administration Losartan Potassium 50 mg 08/17/21 10:00 09/01/21 09:43 Losartan 50 Mg Tab PO 50 mg QDAY HAM Administration Magnesium Hydroxide 30 ml 08/17/21 04:09 08/23/21 23:56 Magnesium Hydroxide (Mom) Oral Liqd Udc PO 30 ml Q4H PRN Administration Constipation Metoprolol Tartrate 100 mg 08/20/21 11:00 09/01/21 21:01 Metoprolol Tartrate 100 Mg Tab PO 100 mg BID HAM Administration Ondansetron HCl 4 mg 08/17/21 04:09 Ondansetron 4 Mg/2 Ml Inj IV Q8H PRN Nausea And Vomiting Simple Syrup 15 ml 08/26/21 16:00 Simple Syrup 15 Ml FEEDTUBE PRN PRN Hypoglycemia Simple Syrup 30 ml 08/26/21 16:00 Simple Syrup 15 Ml FEEDTUBE PRN PRN Hypoglycemia Sodium Bicarbonate 325 mg 08/26/21 16:00 Sodium Bicarbonate 325 Mg Tab FEEDTUBE PRN PRN For Clogged Feeding Tube Sodium Chloride 10 ml 08/17/21 10:00 09/02/21 01:17 Sodium Chloride 0.9% 10 Ml Flush Syringe IV Not Given BID HAM Sodium Chloride 10 ml 08/17/21 04:09 08/19/21 02:59 Sodium Chloride 0.9% 10 Ml Flush Syringe IV 10 ml PRN PRN Administration LINE FLUSH
[2021-09-02] MEDS: ASPIRIN 325 MG TAB FEEDTUBE SCH (09:53)
[2021-09-02] MEDS: CITALOPRAM 20 MG TAB PO SCH (09:54)
[2021-09-02] MEDS: METOPROLOL TARTRATE 100 MG TAB PO SCH ×2 (09:54→21:04)
[2021-09-02] MEDS: amLODIPine 10 MG TAB PO SCH (09:54)
[2021-09-02] MEDS: cloNIDine 0.1 MG TAB PO SCH ×3 (09:54→21:04)
[2021-09-02] MEDS: levETIRAcetam 500 MG TAB PO SCH (09:54)
[2021-09-02] MEDS: FAMOTIDINE 20 MG TAB FEEDTUBE SCH (09:54)
[2021-09-02] MEDS: LOSARTAN 50 MG TAB PO SCH (09:55)
[2021-09-02] MEDS: hydrALAZINE 100 MG TAB PO SCH ×3 (09:55→21:04)
[2021-09-02] MEDS: INSULIN GLARGINE 100 UNITS/ML SUB-Q SCH (10:00)
--- NOTE | 2021-09-02 11:27 | Progress Note ---
Assessment and Plan Assessment and plan: #Right upper extremity AV graft thrombosis #End Stage Renal Disease requiring hemodialysis -s/p AVF declotting 08/26 via IR/Vascular surgery -s/p vascular surgery/ thrombectomy of right arm AV loop graft. -temporary vasc cath removed 08/26 -continue HD per Nephro -avoid nephrotoxic medications; Renally dose medications #DKA (Diabetic Ketoacidosis)-resolved #Type II diabetes, insulin dependent -s/p insulin gtt -Hgb A1C 10.2% -continue lantus 25U BID, continue SSI -goal glucose 140-180 while inpatient; currently controlled #Sepsis ruled out -patient afebrile, WBC normalizing -Blood cultures with NGTD x 5days -s/p IV abx, none needed due to no infectious process found -ID consulted, signed off #Acute Metabolic Encephalopathy-improving #H/o CVA (cerebral infarction) with left-sided deficits -Multifactorial, DKA vs azotemia vs infectious process -Awake and tracking and following commands this morning -CT head and MRI brain noted with no acute abnormality -Neurology consulted, appreciated recommendations -c/f seizure, continue Keppra -PRN Haldol for agitation -Fall and safety precaution -Aspiration precaution -Frequent reorientation -Avoid benzodiazepine to reduce the possibility of delirium -Maintenance of sleep-wake cycle -PT/OT/Speech ordered #Hypertension -continue home BP medications -PRN Hydralazine and Labetalol for SBP greater than 160 #Elevated D-Dimer #H/o DVT -BLE doppler showed no evidence for acute DVT in either lower extremity. 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 -Per patient's mother, patient has been off coumadin for a couple of years -Continue Heparin SubQ -low suspicion for PE, will order V/Q scan if return of fever, dyspnea -Patient might benefit from PO AC at discharge, awaiting Vascular surgery recommendations #Hypothyroidism -continue synthroid #Dysphagia-improving -Patient failed initial speech eval due to mental status -continue TF with pureed diet for now, Nutrition following #GI/ DVT Prophylaxis -PPI- Pepcid -heparin SubQ -SCDs to bilateral lower extremities while in bed #Discharge planning -continue with diet per Speech Therapy recommendations; medically stable for discharge -Plan to discharge patient to rehab History Interval history: No acute events overnight. Patient alert and oriented x4. She has no complaints at this time. Hospitalist Physical - Physical exam Narrative exam: GENERAL: Well-developed well-nourished. In no acute distress. HEENT: Normocephalic, atraumatic. CHEST/LUNGS: CTAB on room air HEART/CARDIOVASCULAR: RRR. No murmur, rubs or gallops appreciated. ABDOMEN: +BS. NT/ND. NEURO: No focal motor deficit. Follows all commands. EXTREMITIES: Right upper extremity aVF. No cyanosis, clubbing or edema. PSYCH: Cooperative. - Constitutional Vitals: Temp Pulse Resp BP Pulse Ox 97.8 F 62 18 110/63 100 09/02/21 10:20 09/02/21 11:15 09/02/21 10:20 09/02/21 11:15 09/02/21 10:20 General appearance: Present: no acute distress, well-nourished, other (Does not respond, nonverbal, randomly moves) Results - Labs CBC & Chem 7: 08/30/21 05:12 08/30/21 05:12 Labs: Laboratory Last Values WBC 10.9 K/mm3 (4.5-11.0) 08/30/21 05:12 RBC 4.23 M/mm3 (3.65-5.03) 08/30/21 05:12 Hgb 11.5 gm/dl (10.1-14.3) 08/30/21 05:12 Hct 35.8 % (30.3-42.9) 08/30/21 05:12 MCV 85 fl (79-97) 08/30/21 05:12 MCH 27 pg (28-32) L 08/30/21 05:12 MCHC 32 % (30-34) 08/30/21 05:12 RDW 20.2 % (13.2-15.2) H 08/30/21 05:12 Plt Count 195 K/mm3 (140-440) 08/30/21 05:12 Lymph % (Auto) 24.9 % (13.4-35.0) 08/30/21 05:12 [place] % (Auto) 12.7 % (0.0-7.3) H 08/30/21 05:12 Eos % (Auto) 3.4 % (0.0-4.3) 08/30/21 05:12 Baso % (Auto) 1.4 % (0.0-1.8) 08/30/21 05:12 Lymph # (Auto) 2.7 K/mm3 (1.2-5.4) 08/30/21 05:12 [place] # (Auto) 1.4 K/mm3 (0.0-0.8) H 08/30/21 05:12 Eos # (Auto) 0.4 K/mm3 (0.0-0.4) 08/30/21 05:12 Baso # (Auto) 0.2 K/mm3 (0.0-0.1) H 08/30/21 05:12 Seg Neutrophils % 57.6 % (40.0-70.0) 08/30/21 05:12 Seg Neutrophils # 6.3 K/mm3 (1.8-7.7) 08/30/21 05:12 PT 14.0 Sec. (12.2-14.9) 08/23/21 22:59 INR 0.97 (0.87-1.13) 08/23/21 22:59 APTT 27.9 Sec. (24.2-36.6) 08/23/21 22:59 D-Dimer 2695.37 ng/mlDDU (0-234) H 08/17/21 14:40 Sodium 138 mmol/L (137-145) 08/30/21 05:12 Potassium 4.2 mmol/L (3.6-5.0) 08/30/21 05:12 Chloride 97.5 mmol/L (98-107) L 08/30/21 05:12 Carbon Dioxide 26 mmol/L (22-30) 08/30/21 05:12 Anion Gap 19 mmol/L 08/30/21 05:12 BUN 58 mg/dL (7-17) H 08/30/21 05:12 Creatinine 6.9 mg/dL (0.6-1.2) H 08/30/21 05:12 Estimated GFR 8 ml/min 08/30/21 05:12 BUN/Creatinine Ratio 8 % 08/30/21 05:12 Glucose 112 mg/dL (65-100) H 08/30/21 05:12 POC Glucose 78 mg/dL (70-105) 09/02/21 06:43 Hemoglobin A1c 10.2 % (4-6) H 08/18/21 04:56 Lactic Acid 1.70 mmol/L (0.7-2.0) 08/17/21 02:07 Calcium 10.8 mg/dL (8.4-10.2) H 08/30/21 05:12 Phosphorus 6.00 mg/dL (2.5-4.5) H 08/30/21 05:12 Magnesium 2.80 mg/dL (1.7-2.3) H 08/30/21 05:12 Total Bilirubin 0.30 mg/dL (0.1-1.2) 08/30/21 05:12 AST 32 units/L (5-40) 08/30/21 05:12 ALT 8 units/L (7-56) 08/30/21 05:12 Alkaline Phosphatase 147 units/L (35-129) H 08/30/21 05:12 NT-Pro-B Natriuret Pep 38391 pg/mL (0-450) H 08/17/21 02:07 Total Protein 7.6 g/dL (6.3-8.2) 08/30/21 05:12 Albumin 3.9 g/dL (3.9-5) 08/30/21 05:12 Albumin/Globulin Ratio 1.1 % 08/30/21 05:12 Triglycerides 128 mg/dL (2-149) 08/17/21 14:40 Cholesterol 128 mg/dL (50-199) 08/17/21 14:40 LDL Cholesterol Direct 69 mg/dL (50-130) 08/17/21 14:40 HDL Cholesterol 30 mg/dL (40-59) L 08/17/21 14:40 Cholesterol/HDL Ratio 4.26 % 08/17/21 14:40 TSH 5.080 mlU/mL (0.270-4.200) H 08/17/21 02:07 Salicylates < 0.3 mg/dL (2.8-20.0) L 08/17/21 02:07 Acetaminophen 5.0 ug/mL (10.0-30.0) L 08/17/21 02:07 Plasma/Serum Alcohol < 0.01 % (0-0.07) 08/17/21 02:07 Coronavirus (PCR) Negative (Negative) 09/01/21 09:52 SARS-CoV-2 (PCR) Negative (Negative) 08/17/21 09:12 Hepatitis A IgM Ab Non-reactive (NonReactive) 08/17/21 14:40 Hep Bs Antigen Non-reactive (Negative) 08/17/21 14:40 Hep B Core IgM Ab Non-reactive (NonReactive) 08/17/21 14:40 Hepatitis C Antibody Non-reactive (NonReactive) 08/17/21 14:40 Blood Type O POSITIVE 08/17/21 17:43 Antibody Screen Negative 08/17/21 17:43 Tomas/IV: Voiding Method External Female Catheter Active Medications - Current Medications Current Medications: Generic Name Dose Route Start Last Admin Trade Name Freq PRN Reason Stop Dose Admin Acetaminophen 650 mg 08/17/21 07:50 08/30/21 20:25 Acetaminophen 325 Mg Tab PO 650 mg Q6H PRN Administration Pain, Mild (1-3) Acetaminophen 650 mg 08/17/21 08:17 08/17/21 14:49 Acetaminophen 650 Mg Rect Supp LA 650 mg Q4H PRN Administration Pain, Mild (1-3) Albuterol 2.5 mg 08/29/21 20:00 Albuterol 2.5 Mg/3 Ml Nebu IH Q4HRT PRN Shortness Of Breath Amlodipine Besylate 10 mg 08/22/21 11:00 09/02/21 09:54 Amlodipine 10 Mg Tab PO 10 mg QDAY HAM Administration Lipase/Protease/Amylase 1 each 08/26/21 16:00 Lipase 10,500/Protease 25,000/Amylase 43,750 (Units) Dr John ZARAGOZATNIKOLAY PRN PRN For Clogged Feeding Tube Aspirin 325 mg 08/22/21 10:00 09/02/21 09:53 Aspirin 325 Mg Tab FEEDTUBE 325 mg QDAY HAM Administration Atorvastatin Calcium 40 mg 08/29/21 22:00 09/01/21 21:00 Atorvastatin 40 Mg Tab PO 40 mg QHS HAM Administration Citalopram Hydrobromide 20 mg 08/22/21 11:00 09/02/21 09:54 Citalopram 20 Mg Tab PO 20 mg QDAY HAM Administration Clonidine HCl 0.1 mg 08/29/21 20:00 09/02/21 09:54 Clonidine 0.1 Mg Tab PO 0.1 mg TID HAM Administration Dextrose 50 ml 08/17/21 23:37 Dextrose 50% In Water (25gm) 50 Ml Syringe IV Q30MIN PRN Hypoglycemia Protocol Duloxetine HCl 30 mg 08/21/21 10:00 08/23/21 17:08 Duloxetine 30 Mg Cap PO Not Given QDAY HAM Famotidine 20 mg 08/20/21 10:00 09/02/21 09:54 Famotidine 20 Mg Tab FEEDTUBE 20 mg QDAY HAM Administration Haloperidol Lactate 5 mg 08/19/21 12:00 09/01/21 11:41 Haloperidol Lactate 5 Mg/1 Ml Inj IV 5 mg Q6H PRN Administration Agitation Heparin Sodium (Porcine) 5,000 unit 08/17/21 06:00 09/02/21 05:39 Heparin 5,000 Unit/1 Ml Vial SUB-Q 5,000 unit Q8HR HAM Administration Heparin Sodium (Porcine) 3,000 unit 08/17/21 07:41 08/31/21 10:38 Heparin 10,000 Units/10 Ml Vial IV 3,000 unit KATI PRN Administration hemodialysis Hydralazine HCl 100 mg 08/17/21 09:00 09/02/21 09:55 Hydralazine 100 Mg Tab PO 100 mg TID HAM Administration Hydralazine HCl 10 mg 08/17/21 07:56 08/25/21 05:19 Hydralazine 20 Mg/1 Ml Inj IV 10 mg Q4HR PRN Administration Hypertension Hydromorphone HCl 0.25 mg 08/17/21 07:50 09/02/21 01:19 Hydromorphone 0.5 Mg/0.5 Ml Inj IV 0.25 mg Q4H PRN Administration Pain, Moderate (4-6) Sodium Chloride 100 mls @ 999 mls/hr 08/30/21 12:00 Nacl 0.9% IV KATI PRN Hypotension Insulin Glargine 22 units 09/02/21 10:00 09/02/21 10:00 Insulin Glargine 100 Units/Ml SUB-Q 22 units BID HAM Administration Insulin Human Lispro 0 unit 08/18/21 00:00 09/02/21 05:40 Insulin Lispro 100 Unit/Ml SUB-Q Not Given Q6HR [facility] Protocol Levetiracetam 500 mg 08/20/21 10:00 09/02/21 09:54 Levetiracetam 500 Mg Tab PO 500 mg DAILY HAM Administration Levothyroxine Sodium 125 mcg 08/22/21 06:00 09/02/21 05:40 Levothyroxine 125 Mcg Tab PO 125 mcg QAM@0600 HAM Administration Losartan Potassium 50 mg 08/17/21 10:00 09/02/21 09:55 Losartan 50 Mg Tab PO 50 mg QDAY HAM Administration Magnesium Hydroxide 30 ml 08/17/21 04:09 08/23/21 23:56 Magnesium Hydroxide (Mom) Oral Liqd Udc PO 30 ml Q4H PRN Administration Constipation Metoprolol Tartrate 100 mg 08/20/21 11:00 09/02/21 09:54 Metoprolol Tartrate 100 Mg Tab PO 100 mg BID HAM Administration Ondansetron HCl 4 mg 08/17/21 04:09 Ondansetron 4 Mg/2 Ml Inj IV Q8H PRN Nausea And Vomiting Simple Syrup 15 ml 08/26/21 16:00 Simple Syrup 15 Ml FEEDTUBE PRN PRN Hypoglycemia Simple Syrup 30 ml 08/26/21 16:00 Simple Syrup 15 Ml FEEDTUBE PRN PRN Hypoglycemia Sodium Bicarbonate 325 mg 08/26/21 16:00 Sodium Bicarbonate 325 Mg Tab FEEDTUBE PRN PRN For Clogged Feeding Tube Sodium Chloride 10 ml 08/17/21 10:00 09/02/21 09:55 Sodium Chloride 0.9% 10 Ml Flush Syringe IV 10 ml BID HAM Administration Sodium Chloride 10 ml 08/17/21 04:09 08/19/21 02:59 Sodium Chloride 0.9% 10 Ml Flush Syringe IV 10 ml PRN PRN Administration LINE FLUSH Nutrition/Malnutrition Assess - Dietary Evaluation Nutrition/Malnutrition Findings: Nutrition Notes Start: 08/17/21 12:51 Freq: Status: Active Protocol: Document 08/29/21 15:07 LOLY (Rec: 08/29/21 15:14 LOLY [id number]) Nutrition Notes Initial or Follow up Reassessment Current Diagnosis CKD (stage V CKD),Diabetes, Hypertension,Stroke Other Pertinent Diagnosis RUE AV graft thrombosis, Dysphagia Current Diet TF - Nepro at 40ml/hr Labs/Tests Cr 9.8 POC Glu: 223, 174 Pertinent Medications Reviewed Height 5 ft 8 in Weight 76.3 kg [place] Body Weight (kg) 63.63 BMI 25.5 Weight change and time frame Wt change noted Weight Status Overweight Subjective/Other Information Per RN, pt tolerating TF at goal rate. Percent of energy/protein needs met: 98% energy 85% pro Burn Absent Trauma Absent #1 Nutrition Diagnosis Inadequate oral intake Diagnosis Progress(for reassessment Continues documentation) Is patient on ventilator? No Is Patient Ambulatory and/or Out of Bed No REE-([facility]-confined to bed) 1763.016 Calculation Used for Recommendations [facility] Additional Notes Pro needs >1.2g/kg:>92g/day Fluid needs 1-1.5L/day Nutrition Intervention Nutrition Support: Continue Nepro at 40ml/hr with 135ml water flush q4h. Kcal 1,728 Protein (gm) 78 Carbohydrates (gm) 155 Fat (gm) 92 Fluid (mL) 698 Fiber (gm) 12 Goal #1 TF tolerance Goal #2 TF to meet at least 75% energy and pro needs Follow-Up By: 09/05/21 Additional Comments F/U: stable TF, wt
--- NOTE | 2021-09-02 14:39 | Progress Note ---
Assessment and Plan Possible Sepsis- high grade fevers, tachycardia, acute encephalopathy, tachypnea-resolved DKA (Diabetic Ketoacidosis)-resolved Acute Metabolic Encephalopathy-resolved h/o CVA (cerebral infarction) with left-sided deficits End Stage renal Disease(ESRD) on HD HTN (Hypertension) h/o Hypothyroidism s/p thrombectomy. Continue all current care. PT/OT, increase activity Decision re anticoagulation on discharge per primary service and vascular Continue with aspiration precautions -Continue to Titrate supplemental oxygen to keep SpO2 89-92% -Continue with aspiration precaution -Continue with modified oral diet with aspiration precautions -Supportive HD per Renal -Continue to monitor hemodynamics closely -Monitor blood glucose, avoid hypoglycemia -VTE prophylaxis- heparin -Continue all supportive care, seizure precautions -Maintain sleep-wake cycle -Mobility per facility protocol, off loading and frequent turning to prevent pressure ulcers All other care per primary service and other consulting physicians Discharge planning per primary service CONDITION:FAIR PROGNOSIS:FAIR CODE STATUS: FULL CODE Subjective Date of service: 09/02/21 Principal diagnosis: Possible Sepsis; DKA; AMS; h/o CVA left hemiparesis; ESRD on Dialysis; HTN Interval history: Follow up: DKA; acute encephaloapthy Seen and examined. Vitals, labs, medications, chart reviewed. Discussed with nursing, no adverse overnight events. Patient is awake and alert, slow speech but is talking and appropriately answering questions. She denies any chest pain, no shortness of breath, no fevers, no chills, no nausea or vomiting. No new respiratory issues Objective Vital Signs - 12hr 09/02/21 09/02/21 09/02/21 03:30 04:00 09:00 Temperature 98.5 F Pulse Rate 67 80 Respiratory 16 Rate Blood Pressure 111/54 O2 Sat by Pulse 96 97 Oximetry O2 Sat by Pulse Oximetry [ Bilateral] 09/02/21 09/02/21 09/02/21 09:54 09:55 10:20 Temperature 97.8 F Pulse Rate 71 71 74 Respiratory 18 Rate Blood Pressure 128/54 128/54 141/80 O2 Sat by Pulse Oximetry O2 Sat by Pulse 100 Oximetry [ Bilateral] 09/02/21 09/02/21 09/02/21 10:35 10:45 11:00 Temperature Pulse Rate 71 68 67 Respiratory Rate Blood Pressure 147/77 138/76 106/61 O2 Sat by Pulse Oximetry O2 Sat by Pulse Oximetry [ Bilateral] 09/02/21 09/02/21 09/02/21 11:15 11:30 11:45 Temperature Pulse Rate 62 61 66 Respiratory Rate Blood Pressure 110/63 112/62 108/62 O2 Sat by Pulse Oximetry O2 Sat by Pulse Oximetry [ Bilateral] 09/02/21 09/02/21 09/02/21 12:00 12:15 12:30 Temperature Pulse Rate 64 66 66 Respiratory Rate Blood Pressure 103/56 112/64 122/65 O2 Sat by Pulse Oximetry O2 Sat by Pulse Oximetry [ Bilateral] 09/02/21 09/02/21 09/02/21 12:45 13:00 13:15 Temperature Pulse Rate 68 71 68 Respiratory Rate Blood Pressure 126/71 125/70 121/65 O2 Sat by Pulse Oximetry O2 Sat by Pulse Oximetry [ Bilateral] 09/02/21 09/02/21 13:30 14:17 Temperature 97.8 F Pulse Rate 69 75 Respiratory 20 Rate Blood Pressure 134/69 148/72 O2 Sat by Pulse Oximetry O2 Sat by Pulse 100 Oximetry [ Bilateral] Constitutional: no acute distress, alert, other (middle aged obese female with normal respiratory effort at rest) Eyes: non-icteric ENT: oropharynx moist Neck: supple, no lymphadenopathy, no JVD, other (large circumference) Effort: normal Ascultation: Bilateral: clear, diminished breath sounds Percussion: Bilateral: not dull Cardiovascular: regular rate and rhythm, other (S1,S2) Gastrointestinal: normoactive bowel sounds, soft, non-tender, non-distended (protuberant), other (obese) Integumentary: normal Extremities: no cyanosis, no edema, pulses normal, no ischemia or petechiae Neurologic: normal mental status, pupils equal and round, CN II-XII normal Psychiatric: mood appropriate, affect normal CBC and BMP: 08/30/21 05:12 08/30/21 05:12 ABG, PT/INR, D-dimer: PT/INR, D-dimer PT 14.0 Sec. (12.2-14.9) 08/23/21 22:59 INR 0.97 (0.87-1.13) 08/23/21 22:59 D-Dimer 2695.37 ng/mlDDU (0-234) H 08/17/21 14:40 Abnormal lab findings: Abnormal Labs 08/17/21 08/17/21 08/17/21 00:33 00:33 02:07 WBC MCH RDW 19.7 H Lymph % (Auto) 10.5 L Bertie % (Auto) Lymph # (Auto) 1.1 L Bertie # (Auto) Baso # (Auto) Seg Neutrophils % 79.1 H Seg Neutrophils # 8.6 H D-Dimer Sodium 132 L 134 L Chloride 87.8 L 88.4 L Carbon Dioxide 21 L BUN 61 H 61 H Creatinine 10.1 H 10.3 H Glucose 594 H* 533 H* POC Glucose Hemoglobin A1c Calcium Phosphorus Magnesium ALT < 5 L Alkaline Phosphatase 182 H NT-Pro-B Natriuret Pep 23677 H Albumin HDL Cholesterol TSH Salicylates Acetaminophen 08/17/21 08/17/21 08/17/21 02:07 02:07 02:07 WBC MCH RDW Lymph % (Auto) Bertie % (Auto) Lymph # (Auto) Bertie # (Auto) Baso # (Auto) Seg Neutrophils % Seg Neutrophils # D-Dimer Sodium Chloride Carbon Dioxide BUN Creatinine Glucose POC Glucose Hemoglobin A1c Calcium Phosphorus Magnesium ALT Alkaline Phosphatase NT-Pro-B Natriuret Pep Albumin HDL Cholesterol TSH 5.080 H Salicylates < 0.3 L Acetaminophen 5.0 L 08/17/21 08/17/21 08/17/21 04:20 04:20 05:09 WBC MCH RDW Lymph % (Auto) Bertie % (Auto) Lymph # (Auto) Bertie # (Auto) Baso # (Auto) Seg Neutrophils % Seg Neutrophils # D-Dimer Sodium 136 L Chloride 90.9 L Carbon Dioxide BUN 61 H Creatinine 10.4 H Glucose 351 H POC Glucose 298 H Hemoglobin A1c Calcium Phosphorus 6.20 H Magnesium ALT Alkaline Phosphatase NT-Pro-B Natriuret Pep Albumin HDL Cholesterol TSH Salicylates Acetaminophen 08/17/21 08/17/21 08/17/21 09:58 10:53 13:14 WBC MCH RDW Lymph % (Auto) Bertie % (Auto) Lymph # (Auto) Bertie # (Auto) Baso # (Auto) Seg Neutrophils % Seg Neutrophils # D-Dimer Sodium Chloride Carbon Dioxide BUN Creatinine Glucose POC Glucose 139 H 162 H 145 H Hemoglobin A1c Calcium Phosphorus Magnesium ALT Alkaline Phosphatase NT-Pro-B Natriuret Pep Albumin HDL Cholesterol TSH Salicylates Acetaminophen 08/17/21 08/17/21 08/17/21 14:40 14:40 14:40 WBC MCH RDW Lymph % (Auto) Bertie % (Auto) Lymph # (Auto) Bertie # (Auto) Baso # (Auto) Seg Neutrophils % Seg Neutrophils # D-Dimer 2695.37 H Sodium Chloride 96.7 L Carbon Dioxide BUN 63 H Creatinine 10.7 H Glucose 145 H POC Glucose Hemoglobin A1c Calcium Phosphorus Magnesium ALT Alkaline Phosphatase NT-Pro-B Natriuret Pep Albumin HDL Cholesterol 30 L TSH Salicylates Acetaminophen 08/17/21 08/17/21 08/17/21 14:40 16:45 17:47 WBC MCH RDW Lymph % (Auto) Bertie % (Auto) Lymph # (Auto) Bertie # (Auto) Baso # (Auto) Seg Neutrophils % Seg Neutrophils # D-Dimer Sodium Chloride 96.2 L Carbon Dioxide BUN 44 H Creatinine 7.2 H Glucose 167 H POC Glucose 136 H 165 H Hemoglobin A1c Calcium Phosphorus Magnesium ALT Alkaline Phosphatase NT-Pro-B Natriuret Pep Albumin HDL Cholesterol TSH Salicylates Acetaminophen 08/17/21 08/17/21 08/17/21 18:01 21:01 22:40 WBC MCH RDW Lymph % (Auto) Bertie % (Auto) Lymph # (Auto) Bertie # (Auto) Baso # (Auto) Seg Neutrophils % Seg Neutrophils # D-Dimer Sodium Chloride 97.1 L 96.4 L Carbon Dioxide BUN 39 H 40 H Creatinine 8.0 H 8.5 H Glucose 122 H 109 H POC Glucose 172 H Hemoglobin A1c Calcium Phosphorus Magnesium ALT Alkaline Phosphatase NT-Pro-B Natriuret Pep Albumin HDL Cholesterol TSH Salicylates Acetaminophen 08/17/21 08/18/21 08/18/21 22:40 02:13 04:56 WBC MCH 27 L RDW 19.7 H Lymph % (Auto) Bertie % (Auto) Lymph # (Auto) Bertie # (Auto) Baso # (Auto) Seg Neutrophils % Seg Neutrophils # D-Dimer Sodium Chloride 96.8 L Carbon Dioxide BUN 44 H Creatinine 9.3 H Glucose 170 H POC Glucose 190 H Hemoglobin A1c Calcium Phosphorus 6.70 H Magnesium ALT Alkaline Phosphatase NT-Pro-B Natriuret Pep Albumin HDL Cholesterol TSH Salicylates Acetaminophen 08/18/21 08/18/21 08/18/21 04:56 04:56 17:01 WBC MCH 27 L RDW 19.7 H Lymph % (Auto) Bertie % (Auto) 9.7 H Lymph # (Auto) Bertie # (Auto) Baso # (Auto) Seg Neutrophils % Seg Neutrophils # D-Dimer Sodium Chloride Carbon Dioxide BUN Creatinine Glucose POC Glucose 228 H Hemoglobin A1c 10.2 H Calcium Phosphorus Magnesium ALT Alkaline Phosphatase NT-Pro-B Natriuret Pep Albumin HDL Cholesterol TSH Salicylates Acetaminophen 08/18/21 08/19/21 08/19/21 23:58 04:37 04:37 WBC MCH 27 L RDW 19.5 H Lymph % (Auto) Bertie % (Auto) Lymph # (Auto) Bertie # (Auto) Baso # (Auto) Seg Neutrophils % Seg Neutrophils # D-Dimer Sodium Chloride 96.7 L Carbon Dioxide 21 L BUN 57 H Creatinine 10.2 H Glucose 151 H POC Glucose 192 H Hemoglobin A1c Calcium Phosphorus Magnesium ALT Alkaline Phosphatase NT-Pro-B Natriuret Pep Albumin HDL Cholesterol TSH Salicylates Acetaminophen 08/19/21 08/19/21 08/20/21 17:46 22:59 04:24 WBC MCH RDW Lymph % (Auto) Bertie % (Auto) Lymph # (Auto) Bertie # (Auto) Baso # (Auto) Seg Neutrophils % Seg Neutrophils # D-Dimer Sodium 133 L Chloride 87.9 L Carbon Dioxide 15 L BUN 33 H Creatinine 7.3 H Glucose 365 H POC Glucose 217 H 282 H Hemoglobin A1c Calcium Phosphorus 6.50 H Magnesium ALT Alkaline Phosphatase NT-Pro-B Natriuret Pep Albumin HDL Cholesterol TSH Salicylates Acetaminophen 08/20/21 08/20/21 08/20/21 06:07 07:51 15:37 WBC MCH RDW Lymph % (Auto) Bertie % (Auto) Lymph # (Auto) Bertie # (Auto) Baso # (Auto) Seg Neutrophils % Seg Neutrophils # D-Dimer Sodium Chloride Carbon Dioxide BUN Creatinine Glucose POC Glucose 398 H 308 H 247 H Hemoglobin A1c Calcium Phosphorus Magnesium ALT Alkaline Phosphatase NT-Pro-B Natriuret Pep Albumin HDL Cholesterol TSH Salicylates Acetaminophen 08/20/21 08/21/21 08/21/21 23:22 04:45 05:07 WBC MCH RDW Lymph % (Auto) Bertie % (Auto) Lymph # (Auto) Bertie # (Auto) Baso # (Auto) Seg Neutrophils % Seg Neutrophils # D-Dimer Sodium 134 L Chloride 92.9 L Carbon Dioxide BUN 48 H Creatinine 8.0 H Glucose 389 H POC Glucose 316 H 407 H Hemoglobin A1c Calcium 10.6 H Phosphorus Magnesium ALT Alkaline Phosphatase NT-Pro-B Natriuret Pep Albumin HDL Cholesterol TSH Salicylates Acetaminophen 08/21/21 08/21/21 08/21/21 11:37 15:52 23:44 WBC MCH RDW Lymph % (Auto) Bertie % (Auto) Lymph # (Auto) Bertie # (Auto) Baso # (Auto) Seg Neutrophils % Seg Neutrophils # D-Dimer Sodium Chloride Carbon Dioxide BUN Creatinine Glucose POC Glucose 244 H 325 H 221 H Hemoglobin A1c Calcium Phosphorus Magnesium ALT Alkaline Phosphatase NT-Pro-B Natriuret Pep Albumin HDL Cholesterol TSH Salicylates Acetaminophen 08/22/21 08/22/21 08/23/21 06:06 12:27 00:37 WBC MCH RDW Lymph % (Auto) Bertie % (Auto) Lymph # (Auto) Bertie # (Auto) Baso # (Auto) Seg Neutrophils % Seg Neutrophils # D-Dimer Sodium Chloride Carbon Dioxide BUN Creatinine Glucose POC Glucose 224 H 247 H 341 H Hemoglobin A1c Calcium Phosphorus Magnesium ALT Alkaline Phosphatase NT-Pro-B Natriuret Pep Albumin HDL Cholesterol TSH Salicylates Acetaminophen 08/23/21 08/23/21 08/23/21 04:20 05:37 11:56 WBC MCH RDW Lymph % (Auto) Bertie % (Auto) Lymph # (Auto) Bertie # (Auto) Baso # (Auto) Seg Neutrophils % Seg Neutrophils # D-Dimer Sodium Chloride 94.4 L Carbon Dioxide BUN 49 H Creatinine 7.7 H Glucose 201 H POC Glucose 210 H 162 H Hemoglobin A1c Calcium 10.9 H Phosphorus Magnesium ALT Alkaline Phosphatase NT-Pro-B Natriuret Pep Albumin HDL Cholesterol TSH Salicylates Acetaminophen 08/23/21 08/23/21 08/23/21 17:45 22:58 22:59 WBC 12.2 H MCH 26 L RDW 20.3 H Lymph % (Auto) Bertie % (Auto) Lymph # (Auto) Bertie # (Auto) Baso # (Auto) Seg Neutrophils % Seg Neutrophils # D-Dimer Sodium Chloride Carbon Dioxide BUN Creatinine Glucose POC Glucose 211 H 218 H Hemoglobin A1c Calcium Phosphorus Magnesium ALT Alkaline Phosphatase NT-Pro-B Natriuret Pep Albumin HDL Cholesterol TSH Salicylates Acetaminophen 08/23/21 08/24/21 08/24/21 22:59 04:23 04:23 WBC 15.4 H MCH 27 L RDW 19.8 H Lymph % (Auto) Bertie % (Auto) 13.0 H Lymph # (Auto) Bertie # (Auto) 2.0 H Baso # (Auto) 0.2 H Seg Neutrophils % Seg Neutrophils # 9.8 H D-Dimer Sodium 136 L Chloride 93.0 L Carbon Dioxide BUN 73 H Creatinine 8.7 H 9.2 H Glucose 145 H POC Glucose Hemoglobin A1c Calcium 10.7 H Phosphorus 6.30 H Magnesium 2.70 H ALT 6 L Alkaline Phosphatase 157 H NT-Pro-B Natriuret Pep Albumin 3.7 L HDL Cholesterol TSH Salicylates Acetaminophen 08/24/21 08/24/21 08/24/21 05:09 11:20 18:28 WBC MCH RDW Lymph % (Auto) Bertie % (Auto) Lymph # (Auto) Bertie # (Auto) Baso # (Auto) Seg Neutrophils % Seg Neutrophils # D-Dimer Sodium Chloride Carbon Dioxide BUN Creatinine Glucose POC Glucose 155 H 110 H 182 H Hemoglobin A1c Calcium Phosphorus Magnesium ALT Alkaline Phosphatase NT-Pro-B Natriuret Pep Albumin HDL Cholesterol TSH Salicylates Acetaminophen 08/25/21 08/25/21 08/25/21 00:15 04:44 11:28 WBC 11.3 H MCH 27 L RDW 20.4 H Lymph % (Auto) Bertie % (Auto) Lymph # (Auto) Bertie # (Auto) Baso # (Auto) Seg Neutrophils % Seg Neutrophils # D-Dimer Sodium Chloride Carbon Dioxide BUN Creatinine Glucose POC Glucose 247 H 189 H Hemoglobin A1c Calcium Phosphorus Magnesium ALT Alkaline Phosphatase NT-Pro-B Natriuret Pep Albumin HDL Cholesterol TSH Salicylates Acetaminophen 08/25/21 08/25/21 08/26/21 16:42 23:29 05:22 WBC MCH RDW Lymph % (Auto) Bertie % (Auto) Lymph # (Auto) Bertie # (Auto) Baso # (Auto) Seg Neutrophils % Seg Neutrophils # D-Dimer Sodium Chloride Carbon Dioxide BUN Creatinine 10.0 H Glucose POC Glucose 169 H 213 H Hemoglobin A1c Calcium Phosphorus Magnesium ALT Alkaline Phosphatase NT-Pro-B Natriuret Pep Albumin HDL Cholesterol TSH Salicylates Acetaminophen 08/26/21 08/26/21 08/26/21 06:12 11:47 23:33 WBC MCH RDW Lymph % (Auto) Bertie % (Auto) Lymph # (Auto) Bertie # (Auto) Baso # (Auto) Seg Neutrophils % Seg Neutrophils # D-Dimer Sodium Chloride Carbon Dioxide BUN Creatinine Glucose POC Glucose 191 H 197 H 197 H Hemoglobin A1c Calcium Phosphorus Magnesium ALT Alkaline Phosphatase NT-Pro-B Natriuret Pep Albumin HDL Cholesterol TSH Salicylates Acetaminophen 08/27/21 08/27/21 08/27/21 06:02 06:02 06:17 WBC MCH 27 L RDW 20.1 H Lymph % (Auto) Bertie % (Auto) 14.2 H Lymph # (Auto) Bertie # (Auto) 1.4 H Baso # (Auto) Seg Neutrophils % Seg Neutrophils # D-Dimer Sodium 134 L Chloride 93.8 L Carbon Dioxide BUN 56 H Creatinine 6.4 H Glucose 253 H POC Glucose 250 H Hemoglobin A1c Calcium Phosphorus 6.00 H Magnesium 2.50 H ALT < 5 L Alkaline Phosphatase 135 H NT-Pro-B Natriuret Pep Albumin 3.6 L HDL Cholesterol TSH Salicylates Acetaminophen 08/27/21 08/27/21 08/27/21 11:21 16:05 23:13 WBC MCH RDW Lymph % (Auto) Bertie % (Auto) Lymph # (Auto) Bertie # (Auto) Baso # (Auto) Seg Neutrophils % Seg Neutrophils # D-Dimer Sodium Chloride Carbon Dioxide BUN Creatinine Glucose POC Glucose 287 H 321 H 286 H Hemoglobin A1c Calcium Phosphorus Magnesium ALT Alkaline Phosphatase NT-Pro-B Natriuret Pep Albumin HDL Cholesterol TSH Salicylates Acetaminophen 08/28/21 08/28/21 08/28/21 05:11 05:29 11:30 WBC MCH RDW Lymph % (Auto) Bertie % (Auto) Lymph # (Auto) Bertie # (Auto) Baso # (Auto) Seg Neutrophils % Seg Neutrophils # D-Dimer Sodium 134 L Chloride 91.8 L Carbon Dioxide BUN 79 H Creatinine 8.2 H Glucose 230 H POC Glucose 225 H 190 H Hemoglobin A1c Calcium 10.8 H Phosphorus Magnesium ALT Alkaline Phosphatase NT-Pro-B Natriuret Pep Albumin HDL Cholesterol TSH Salicylates Acetaminophen 08/28/21 08/29/21 08/29/21 15:53 00:04 04:29 WBC MCH 27 L RDW 20.6 H Lymph % (Auto) Bertie % (Auto) Lymph # (Auto) Bertie # (Auto) Baso # (Auto) Seg Neutrophils % Seg Neutrophils # D-Dimer Sodium Chloride Carbon Dioxide BUN Creatinine Glucose POC Glucose 235 H 223 H Hemoglobin A1c Calcium Phosphorus Magnesium ALT Alkaline Phosphatase NT-Pro-B Natriuret Pep Albumin HDL Cholesterol TSH Salicylates Acetaminophen 08/29/21 08/29/21 08/29/21 04:29 05:37 16:14 WBC MCH RDW Lymph % (Auto) Bertie % (Auto) Lymph # (Auto) Bertie # (Auto) Baso # (Auto) Seg Neutrophils % Seg Neutrophils # D-Dimer Sodium Chloride Carbon Dioxide BUN Creatinine 9.8 H Glucose POC Glucose 174 H 200 H Hemoglobin A1c Calcium Phosphorus Magnesium ALT Alkaline Phosphatase NT-Pro-B Natriuret Pep Albumin HDL Cholesterol TSH Salicylates Acetaminophen 08/30/21 08/30/21 08/30/21 00:10 05:12 05:12 WBC MCH 27 L RDW 20.2 H Lymph % (Auto) Bertie % (Auto) 12.7 H Lymph # (Auto) Bertie # (Auto) 1.4 H Baso # (Auto) 0.2 H Seg Neutrophils % Seg Neutrophils # D-Dimer Sodium Chloride 97.5 L Carbon Dioxide BUN 58 H Creatinine 6.9 H Glucose 112 H POC Glucose 111 H Hemoglobin A1c Calcium 10.8 H Phosphorus 6.00 H Magnesium 2.80 H ALT Alkaline Phosphatase 147 H NT-Pro-B Natriuret Pep Albumin HDL Cholesterol TSH Salicylates Acetaminophen 08/30/21 08/31/21 08/31/21 16:40 00:27 04:30 WBC MCH RDW Lymph % (Auto) Bertie % (Auto) Lymph # (Auto) Bertie # (Auto) Baso # (Auto) Seg Neutrophils % Seg Neutrophils # D-Dimer Sodium Chloride Carbon Dioxide BUN Creatinine Glucose POC Glucose 224 H 200 H 125 H Hemoglobin A1c Calcium Phosphorus Magnesium ALT Alkaline Phosphatase NT-Pro-B Natriuret Pep Albumin HDL Cholesterol TSH Salicylates Acetaminophen 09/02/21 06:04 WBC MCH RDW Lymph % (Auto) Bertie % (Auto) Lymph # (Auto) Bertie # (Auto) Baso # (Auto) Seg Neutrophils % Seg Neutrophils # D-Dimer Sodium Chloride Carbon Dioxide BUN Creatinine Glucose POC Glucose 68 L Hemoglobin A1c Calcium Phosphorus Magnesium ALT Alkaline Phosphatase NT-Pro-B Natriuret Pep Albumin HDL Cholesterol TSH Salicylates Acetaminophen Allied health notes reviewed: nursing
[2021-09-03] MEDS: INSULIN LISPRO 100 UNIT/ML SUB-Q SCH ×4 (00:59→17:48)
[2021-09-03] MEDS: INSULIN GLARGINE 100 UNITS/ML SUB-Q SCH ×2 (01:01→09:47)
[2021-09-03] MEDS: HYDROmorphone 0.5 MG/0.5 ML INJ IV PRN ×4 (02:40→20:32)
[2021-09-03] MEDS: HEPARIN 5,000 UNIT/1 ML VIAL SUB-Q SCH ×3 (06:21→22:05)
[2021-09-03] MEDS: LEVOTHYROXINE 125 MCG TAB PO SCH (06:21)
--- NOTE | 2021-09-03 08:14 | Progress Note ---
Assessment and Plan Assessment and plan: #Right upper extremity AV graft thrombosis #End Stage Renal Disease requiring hemodialysis -s/p AVF declotting 08/26 via IR/Vascular surgery -s/p vascular surgery/ thrombectomy of right arm AV loop graft. -temporary vasc cath removed 08/26 -continue HD per Nephro -avoid nephrotoxic medications; Renally dose medications #DKA (Diabetic Ketoacidosis)-resolved #Type II diabetes, insulin dependent -s/p insulin gtt -Patient with hypoglycemia secondary to reduced oral intake; will start tube feeds again -Hgb A1C 10.2% -continue lantus 22U BID, continue SSI -goal glucose 140-180 while inpatient; currently controlled #Sepsis ruled out -patient afebrile, WBC normalizing -Blood cultures with NGTD x 5days -s/p IV abx, none needed due to no infectious process found -ID consulted, signed off #Acute Metabolic Encephalopathy-improving #H/o CVA (cerebral infarction) with left-sided deficits -Multifactorial, DKA vs azotemia vs infectious process -Awake and tracking and following commands this morning -CT head and MRI brain noted with no acute abnormality -Neurology consulted, appreciated recommendations -c/f seizure, continue Keppra -PRN Haldol for agitation -Fall and safety precaution -Aspiration precaution -Frequent reorientation -Avoid benzodiazepine to reduce the possibility of delirium -Maintenance of sleep-wake cycle -PT/OT/Speech ordered -Dobbhoff to be placed for tube feedings due to patient not eating -Psychiatry consulted #Hypertension -continue home BP medications -PRN Hydralazine and Labetalol for SBP greater than 160 #Elevated D-Dimer #H/o DVT -BLE doppler showed no evidence for acute DVT in either lower extremity. 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 -Per patient's mother, patient has been off coumadin for a couple of years -Continue Heparin SubQ -low suspicion for PE, will order V/Q scan if return of fever, dyspnea -Patient might benefit from PO AC at discharge, wild defer to PCP #Hypothyroidism -continue synthroid #Dysphagia-improving -Patient failed initial speech eval due to mental status -continue TF with pureed diet for now, Nutrition following #GI/ DVT Prophylaxis -PPI- Pepcid -heparin SubQ -SCDs to bilateral lower extremities while in bed #Discharge planning -continue with diet per Speech Therapy recommendations; patient with neurogenic dysphagia will restart tube feeds -Plan to discharge patient to rehab History Interval history: Patient with glucose in the 70s this morning. She has been holding boluses of food medication in her mouth without swallowing. Discussed with patient placement of NG tube and restarting tube feeds. Patient has no complaints but wants to know "when can I go home". Hospitalist Physical - Physical exam Narrative exam: GENERAL: Well-developed well-nourished. In no acute distress. HEENT: Normocephalic, atraumatic. CHEST/LUNGS: CTAB on room air HEART/CARDIOVASCULAR: RRR. No murmur, rubs or gallops appreciated. ABDOMEN: +BS. NT/ND. NEURO: No focal motor deficit. Follows all commands. EXTREMITIES: Right upper extremity aVF. No cyanosis, clubbing or edema. PSYCH: Poor insight. - Constitutional Vitals: Temp Pulse Resp BP Pulse Ox 98.5 F 67 16 111/53 97 09/03/21 07:23 09/03/21 07:23 09/03/21 07:23 09/03/21 07:23 09/03/21 07:23 General appearance: Present: no acute distress, well-nourished, other (Does not respond, nonverbal, randomly moves) Results - Labs CBC & Chem 7: 08/30/21 05:12 08/30/21 05:12 Labs: Laboratory Last Values WBC 10.9 K/mm3 (4.5-11.0) 08/30/21 05:12 RBC 4.23 M/mm3 (3.65-5.03) 08/30/21 05:12 Hgb 11.5 gm/dl (10.1-14.3) 08/30/21 05:12 Hct 35.8 % (30.3-42.9) 08/30/21 05:12 MCV 85 fl (79-97) 08/30/21 05:12 MCH 27 pg (28-32) L 08/30/21 05:12 MCHC 32 % (30-34) 08/30/21 05:12 RDW 20.2 % (13.2-15.2) H 08/30/21 05:12 Plt Count 195 K/mm3 (140-440) 08/30/21 05:12 Lymph % (Auto) 24.9 % (13.4-35.0) 08/30/21 05:12 [place] % (Auto) 12.7 % (0.0-7.3) H 08/30/21 05:12 Eos % (Auto) 3.4 % (0.0-4.3) 08/30/21 05:12 Baso % (Auto) 1.4 % (0.0-1.8) 08/30/21 05:12 Lymph # (Auto) 2.7 K/mm3 (1.2-5.4) 08/30/21 05:12 [place] # (Auto) 1.4 K/mm3 (0.0-0.8) H 08/30/21 05:12 Eos # (Auto) 0.4 K/mm3 (0.0-0.4) 08/30/21 05:12 Baso # (Auto) 0.2 K/mm3 (0.0-0.1) H 08/30/21 05:12 Seg Neutrophils % 57.6 % (40.0-70.0) 08/30/21 05:12 Seg Neutrophils # 6.3 K/mm3 (1.8-7.7) 08/30/21 05:12 PT 14.0 Sec. (12.2-14.9) 08/23/21 22:59 INR 0.97 (0.87-1.13) 08/23/21 22:59 APTT 27.9 Sec. (24.2-36.6) 08/23/21 22:59 D-Dimer 2695.37 ng/mlDDU (0-234) H 08/17/21 14:40 Sodium 138 mmol/L (137-145) 08/30/21 05:12 Potassium 4.2 mmol/L (3.6-5.0) 08/30/21 05:12 Chloride 97.5 mmol/L (98-107) L 08/30/21 05:12 Carbon Dioxide 26 mmol/L (22-30) 08/30/21 05:12 Anion Gap 19 mmol/L 08/30/21 05:12 BUN 58 mg/dL (7-17) H 08/30/21 05:12 Creatinine 6.9 mg/dL (0.6-1.2) H 08/30/21 05:12 Estimated GFR 8 ml/min 08/30/21 05:12 BUN/Creatinine Ratio 8 % 08/30/21 05:12 Glucose 112 mg/dL (65-100) H 08/30/21 05:12 POC Glucose 72 mg/dL (70-105) 09/03/21 06:30 Hemoglobin A1c 10.2 % (4-6) H 08/18/21 04:56 Lactic Acid 1.70 mmol/L (0.7-2.0) 08/17/21 02:07 Calcium 10.8 mg/dL (8.4-10.2) H 08/30/21 05:12 Phosphorus 6.00 mg/dL (2.5-4.5) H 08/30/21 05:12 Magnesium 2.80 mg/dL (1.7-2.3) H 08/30/21 05:12 Total Bilirubin 0.30 mg/dL (0.1-1.2) 08/30/21 05:12 AST 32 units/L (5-40) 08/30/21 05:12 ALT 8 units/L (7-56) 08/30/21 05:12 Alkaline Phosphatase 147 units/L (35-129) H 08/30/21 05:12 NT-Pro-B Natriuret Pep 26354 pg/mL (0-450) H 08/17/21 02:07 Total Protein 7.6 g/dL (6.3-8.2) 08/30/21 05:12 Albumin 3.9 g/dL (3.9-5) 08/30/21 05:12 Albumin/Globulin Ratio 1.1 % 08/30/21 05:12 Triglycerides 128 mg/dL (2-149) 08/17/21 14:40 Cholesterol 128 mg/dL (50-199) 08/17/21 14:40 LDL Cholesterol Direct 69 mg/dL (50-130) 08/17/21 14:40 HDL Cholesterol 30 mg/dL (40-59) L 08/17/21 14:40 Cholesterol/HDL Ratio 4.26 % 08/17/21 14:40 TSH 5.080 mlU/mL (0.270-4.200) H 08/17/21 02:07 Salicylates < 0.3 mg/dL (2.8-20.0) L 08/17/21 02:07 Acetaminophen 5.0 ug/mL (10.0-30.0) L 08/17/21 02:07 Plasma/Serum Alcohol < 0.01 % (0-0.07) 08/17/21 02:07 Coronavirus (PCR) Negative (Negative) 09/01/21 09:52 SARS-CoV-2 (PCR) Negative (Negative) 08/17/21 09:12 Hepatitis A IgM Ab Non-reactive (NonReactive) 08/17/21 14:40 Hep Bs Antigen Non-reactive (Negative) 08/17/21 14:40 Hep B Core IgM Ab Non-reactive (NonReactive) 08/17/21 14:40 Hepatitis C Antibody Non-reactive (NonReactive) 08/17/21 14:40 Blood Type O POSITIVE 08/17/21 17:43 Antibody Screen Negative 08/17/21 17:43 Tomas/IV: Voiding Method External Female Catheter Active Medications - Current Medications Current Medications: Generic Name Dose Route Start Last Admin Trade Name Freq PRN Reason Stop Dose Admin Acetaminophen 650 mg 08/17/21 07:50 08/30/21 20:25 Acetaminophen 325 Mg Tab PO 650 mg Q6H PRN Administration Pain, Mild (1-3) Acetaminophen 650 mg 08/17/21 08:17 08/17/21 14:49 Acetaminophen 650 Mg Rect Supp [place] 650 mg Q4H PRN Administration Pain, Mild (1-3) Albuterol 2.5 mg 08/29/21 20:00 Albuterol 2.5 Mg/3 Ml Nebu IH Q4HRT PRN Shortness Of Breath Amlodipine Besylate 10 mg 08/22/21 11:00 09/02/21 09:54 Amlodipine 10 Mg Tab PO 10 mg QDAY HAM Administration Lipase/Protease/Amylase 1 each 08/26/21 16:00 Lipase 10,500/Protease 25,000/Amylase 43,750 (Units) Dr Lopez FEEDTUBE PRN PRN For Clogged Feeding Tube Aspirin 325 mg 08/22/21 10:00 09/02/21 09:53 Aspirin 325 Mg Tab FEEDTUBE 325 mg QDAY HAM Administration Atorvastatin Calcium 40 mg 08/29/21 22:00 09/02/21 21:05 Atorvastatin 40 Mg Tab PO 40 mg QHS HAM Administration Citalopram Hydrobromide 20 mg 08/22/21 11:00 09/02/21 09:54 Citalopram 20 Mg Tab PO 20 mg QDAY HAM Administration Clonidine HCl 0.1 mg 08/29/21 20:00 09/02/21 21:04 Clonidine 0.1 Mg Tab PO 0.1 mg TID HAM Administration Dextrose 50 ml 08/17/21 23:37 Dextrose 50% In Water (25gm) 50 Ml Syringe IV Q30MIN PRN Hypoglycemia Protocol Duloxetine HCl 30 mg 08/21/21 10:00 08/23/21 17:08 Duloxetine 30 Mg Cap PO Not Given QDAY HAM Famotidine 20 mg 08/20/21 10:00 09/02/21 09:54 Famotidine 20 Mg Tab FEEDTUBE 20 mg QDAY HAM Administration Haloperidol Lactate 5 mg 08/19/21 12:00 09/01/21 11:41 Haloperidol Lactate 5 Mg/1 Ml Inj IV 5 mg Q6H PRN Administration Agitation Heparin Sodium (Porcine) 5,000 unit 08/17/21 06:00 09/03/21 06:21 Heparin 5,000 Unit/1 Ml Vial SUB-Q 5,000 unit Q8HR HAM Administration Heparin Sodium (Porcine) 3,000 unit 08/17/21 07:41 08/31/21 10:38 Heparin 10,000 Units/10 Ml Vial IV 3,000 unit KATI PRN Administration hemodialysis Hydralazine HCl 100 mg 08/17/21 09:00 09/02/21 21:04 Hydralazine 100 Mg Tab PO 100 mg TID HAM Administration Hydralazine HCl 10 mg 08/17/21 07:56 08/25/21 05:19 Hydralazine 20 Mg/1 Ml Inj IV 10 mg Q4HR PRN Administration Hypertension Hydromorphone HCl 0.25 mg 08/17/21 07:50 09/03/21 02:40 Hydromorphone 0.5 Mg/0.5 Ml Inj IV 0.25 mg Q4H PRN Administration Pain, Moderate (4-6) Sodium Chloride 100 mls @ 999 mls/hr 08/30/21 12:00 Nacl 0.9% IV KATI PRN Hypotension Insulin Glargine 22 units 09/02/21 10:00 09/03/21 01:01 Insulin Glargine 100 Units/Ml SUB-Q 22 units BID HAM Administration Insulin Human Lispro 0 unit 08/18/21 00:00 09/03/21 06:24 Insulin Lispro 100 Unit/Ml SUB-Q Not Given Q6HR [facility] Protocol Levetiracetam 500 mg 08/20/21 10:00 09/02/21 09:54 Levetiracetam 500 Mg Tab PO 500 mg DAILY HAM Administration Levothyroxine Sodium 125 mcg 08/22/21 06:00 09/03/21 06:21 Levothyroxine 125 Mcg Tab PO 125 mcg QAM@0600 HAM Administration Losartan Potassium 50 mg 08/17/21 10:00 09/02/21 09:55 Losartan 50 Mg Tab PO 50 mg QDAY HAM Administration Magnesium Hydroxide 30 ml 08/17/21 04:09 08/23/21 23:56 Magnesium Hydroxide (Mom) Oral Liqd Udc PO 30 ml Q4H PRN Administration Constipation Metoprolol Tartrate 100 mg 08/20/21 11:00 09/02/21 21:04 Metoprolol Tartrate 100 Mg Tab PO 100 mg BID HAM Administration Ondansetron HCl 4 mg 08/17/21 04:09 Ondansetron 4 Mg/2 Ml Inj IV Q8H PRN Nausea And Vomiting Simple Syrup 15 ml 08/26/21 16:00 Simple Syrup 15 Ml FEEDTUBE PRN PRN Hypoglycemia Simple Syrup 30 ml 08/26/21 16:00 Simple Syrup 15 Ml FEEDTUBE PRN PRN Hypoglycemia Sodium Bicarbonate 325 mg 08/26/21 16:00 Sodium Bicarbonate 325 Mg Tab FEEDTUBE PRN PRN For Clogged Feeding Tube Sodium Chloride 10 ml 08/17/21 10:00 09/02/21 22:16 Sodium Chloride 0.9% 10 Ml Flush Syringe IV 10 ml BID HAM Administration Sodium Chloride 10 ml 08/17/21 04:09 08/19/21 02:59 Sodium Chloride 0.9% 10 Ml Flush Syringe IV 10 ml PRN PRN Administration LINE FLUSH Nutrition/Malnutrition Assess - Dietary Evaluation Nutrition/Malnutrition Findings: Nutrition Notes Start: 08/17/21 12:51 Freq: Status: Active Protocol: Document 08/29/21 15:07 LOLY (Rec: 08/29/21 15:14 LOLY [id number]) Nutrition Notes Initial or Follow up Reassessment Current Diagnosis CKD (stage V CKD),Diabetes, Hypertension,Stroke Other Pertinent Diagnosis RUE AV graft thrombosis, Dysphagia Current Diet TF - Nepro at 40ml/hr Labs/Tests Cr 9.8 POC Glu: 223, 174 Pertinent Medications Reviewed Height 5 ft 8 in Weight 76.3 kg [place] Body Weight (kg) 63.63 BMI 25.5 Weight change and time frame Wt change noted Weight Status Overweight Subjective/Other Information Per RN, pt tolerating TF at goal rate. Percent of energy/protein needs met: 98% energy 85% pro Burn Absent Trauma Absent #1 Nutrition Diagnosis Inadequate oral intake Diagnosis Progress(for reassessment Continues documentation) Is patient on ventilator? No Is Patient Ambulatory and/or Out of Bed No REE-([facility]-confined to bed) [phone] Calculation [facility] Additional Notes Pro needs >1.2g/kg:>92g/day Fluid needs 1-1.5L/day Nutrition Intervention Nutrition Support: Continue Nepro at 40ml/hr with 135ml water flush q4h. Kcal 1,728 Protein (gm) 78 Carbohydrates (gm) 155 Fat (gm) 92 Fluid (mL) 698 Fiber (gm) 12 Goal #1 TF tolerance Goal #2 TF to meet at least 75% energy and pro needs Follow-Up By: 09/05/21 Additional Comments F/U: stable TF, wt
[2021-09-03] MEDS: FAMOTIDINE 20 MG TAB FEEDTUBE SCH (09:32)
[2021-09-03] MEDS: cloNIDine 0.1 MG TAB PO SCH ×3 (09:32→20:33)
[2021-09-03] MEDS: CITALOPRAM 20 MG TAB PO SCH (09:32)
[2021-09-03] MEDS: hydrALAZINE 100 MG TAB PO SCH ×3 (09:32→20:33)
[2021-09-03] MEDS: ASPIRIN 325 MG TAB FEEDTUBE SCH (09:32)
[2021-09-03] MEDS: levETIRAcetam 500 MG TAB PO SCH (09:32)
[2021-09-03] MEDS: METOPROLOL TARTRATE 100 MG TAB PO SCH ×2 (09:32→22:05)
[2021-09-03] MEDS: LOSARTAN 50 MG TAB PO SCH (09:32)
--- NOTE | 2021-09-03 09:35 | Progress Note ---
Assessment and Plan 1. ESRD: Patient is on maintenance HD, MWF schedule. Last outpatient HD 08/12/21. Meds dosage based on GFR. Hemodialysis: 08/17, 08/19, 08/22, 08/24, 08/26, 08/28, 08/31, 09/02. 2. FEN: Metabolic acidosis, s/p HD, monitor. UF with HD as tolerated. Monitor lytes and volume status. 3. Diabetic Hyperosmolar State, POA: S/p Insulin gtt. Per protocol. 4. Malfunctioning hemodialysis access: Patient presented with non functioning hemodialysis access. S/p angioplasty of R arm AVG. Seen by Vascular. 5. Acute Metabolic Encephalopathy, POA: 2/[address] head and MRI brain negative. MS is better. Seen by Neuro. 6. SIRS versus sepsis: S/p Abx. 7. HTN: Adjust meds as needed. Monitor BP. Subjective: Patient was seen and examined at the bedside. No new complaint. Examination: General appearance: well-developed, well-nourished, appears stated age, no distress HEENT: ATNC, pupils equal Neck: trachea midline Respiratory: Clear to Auscultation Cardiology: regular, S1S2, no murmur Gastrointestinal: soft, normoactive bowel sounds, not tender, ND Integumentary: no rash Neurologic: AO, L sided weakness Ext: no edema noted Hemodialysis access: R arm AVG Subjective Date of service: 09/03/21 Principal diagnosis: Possible Sepsis; DKA; AMS; h/o CVA left hemiparesis; ESRD on Dialysis; HTN Objective - Vital Signs Vital signs: Vital Signs - 12hr 09/02/21 09/03/21 09/03/21 23:34 04:00 04:01 Temperature 98.8 F 98.3 F Pulse Rate 71 80 69 Respiratory 18 18 Rate Blood Pressure 110/49 125/58 O2 Sat by Pulse 96 99 Oximetry 09/03/21 07:23 Temperature 98.5 F Pulse Rate 67 Respiratory 16 Rate Blood Pressure 111/53 O2 Sat by Pulse 97 Oximetry - Lab 08/30/21 05:12 09/04/21 10:04 Most recent lab results Calcium 10.8 mg/dL (8.4-10.2) H 08/30/21 05:12 Phosphorus 6.00 mg/dL (2.5-4.5) H 08/30/21 05:12 Magnesium 2.80 mg/dL (1.7-2.3) H 08/30/21 05:12 Medications & Allergies - Medications Allergies/Adverse Reactions: Allergies vancomycin Adverse Reaction (Verified 04/02/13 10:16) Hives Home Medications: Home Medications Medication Instructions Recorded Confirmed Last Taken Type Hydralazine HCl [hydrALAZINE] 100 mg PO BID 04/02/13 08/17/21 04/02/13 08:00 History Aspirin/Dipyridamole [Aggrenox] 1 cap PO BID #60 capsule 04/10/13 08/17/21 Unknown Rx Cinacalcet [Sensipar] 60 mg PO QDAY 08/17/21 08/17/21 Unknown History Citalopram [celeXA] 20 mg PO QDAY 08/17/21 08/17/21 Unknown History Gabapentin [Neurontin] 100 mg PO Q8HR 08/17/21 08/17/21 Unknown History Insulin Glargine,Hum.rec.anlog 55 unit SQ BID 08/17/21 08/17/21 Unknown History [Lantus Solostar] Promethazine [Phenergan] 25 mg PO Q6HR PRN 08/17/21 08/17/21 Unknown History Sevelamer Carbonate [Renvela] 800 mg PO TIDWM 08/17/21 08/17/21 Unknown History amLODIPine [Norvasc] 10 mg PO DAILY 08/17/21 08/17/21 Unknown History carvediloL [Coreg] 25 mg PO BID 08/17/21 08/17/21 Unknown History Albuterol Mdi (or & Nicu Only) 2 puff IH QID PRN 08/29/21 08/29/21 Unknown History [ProAir HFA Inhaler] AtorvaSTATin [Lipitor] 40 mg PO QHS 08/29/21 08/29/21 Unknown History Cetirizine HCl [Zyrtec 10mg tab] 10 mg PO QDAY 08/29/21 08/29/21 Unknown History Ferric Citrate (Nf) [Auryxia] 210 mg PO TID 08/29/21 08/29/21 Unknown History Fluticasone [Flonase] 2 spray NS QDAY PRN 08/29/21 08/29/21 Unknown History Furosemide [Lasix TAB] 40 mg PO QDAY 08/29/21 08/29/21 Unknown History Insulin Aspart (Nf) [NovoLOG 15 units SQ TIDAC 08/29/21 08/29/21 Unknown History Flexpen] Metoclopramide [Reglan] 10 mg PO HS 08/29/21 08/29/21 Unknown History Pantoprazole [Protonix] 40 mg PO QDAY 08/29/21 08/29/21 Unknown History Prochlorperazine Maleate 10 mg PO QDAY PRN 08/29/21 08/29/21 Unknown History [Compazine] Sucroferric Oxyhydroxide(Nf) 500 mg PO TIDWM 08/29/21 08/29/21 Unknown History [Velphoro (Nf)] cloNIDine [Catapres] 0.1 mg PO TID 08/29/21 08/29/21 Unknown History Active Medications: Generic Name Dose Route Start Last Admin Trade Name Freq PRN Reason Stop Dose Admin Acetaminophen 650 mg 08/17/21 07:50 08/30/21 20:25 Acetaminophen 325 Mg Tab PO 650 mg Q6H PRN Administration Pain, Mild (1-3) Acetaminophen 650 mg 08/17/21 08:17 08/17/21 14:49 Acetaminophen 650 Mg Rect Supp [place] 650 mg Q4H PRN Administration Pain, Mild (1-3) Albuterol 2.5 mg 08/29/21 20:00 Albuterol 2.5 Mg/3 Ml Nebu IH Q4HRT PRN Shortness Of Breath Amlodipine Besylate 10 mg 08/22/21 11:00 09/02/21 09:54 Amlodipine 10 Mg Tab PO 10 mg QDAY HAM Administration Lipase/Protease/Amylase 1 each 08/26/21 16:00 Lipase 10,500/Protease 25,000/Amylase 43,750 (Units) Dr Lopez FEEDTUBE PRN PRN For Clogged Feeding Tube Aspirin 325 mg 08/22/21 10:00 09/03/21 09:32 Aspirin 325 Mg Tab FEEDTUBE 325 mg QDAY HAM Administration Atorvastatin Calcium 40 mg 08/29/21 22:00 09/02/21 21:05 Atorvastatin 40 Mg Tab PO 40 mg QHS HAM Administration Citalopram Hydrobromide 20 mg 08/22/21 11:00 09/03/21 09:32 Citalopram 20 Mg Tab PO 20 mg QDAY HAM Administration Clonidine HCl 0.1 mg 08/29/21 20:00 09/03/21 09:32 Clonidine 0.1 Mg Tab PO 0.1 mg TID HAM Administration Dextrose 50 ml 08/17/21 23:37 Dextrose 50% In Water (25gm) 50 Ml Syringe IV Q30MIN PRN Hypoglycemia Protocol Duloxetine HCl 30 mg 08/21/21 10:00 08/23/21 17:08 Duloxetine 30 Mg Cap PO Not Given QDAY HAM Famotidine 20 mg 08/20/21 10:00 09/03/21 09:32 Famotidine 20 Mg Tab FEEDTUBE 20 mg QDAY HAM Administration Haloperidol Lactate 5 mg 08/19/21 12:00 09/01/21 11:41 Haloperidol Lactate 5 Mg/1 Ml Inj IV 5 mg Q6H PRN Administration Agitation Heparin Sodium (Porcine) 5,000 unit 08/17/21 06:00 09/03/21 06:21 Heparin 5,000 Unit/1 Ml Vial SUB-Q 5,000 unit Q8HR HAM Administration Heparin Sodium (Porcine) 3,000 unit 08/17/21 07:41 08/31/21 10:38 Heparin 10,000 Units/10 Ml Vial IV 3,000 unit KATI PRN Administration hemodialysis Hydralazine HCl 100 mg 08/17/21 09:00 09/03/21 09:32 Hydralazine 100 Mg Tab PO 100 mg TID HAM Administration Hydralazine HCl 10 mg 08/17/21 07:56 08/25/21 05:19 Hydralazine 20 Mg/1 Ml Inj IV 10 mg Q4HR PRN Administration Hypertension Hydromorphone HCl 0.25 mg 08/17/21 07:50 09/03/21 02:40 Hydromorphone 0.5 Mg/0.5 Ml Inj IV 0.25 mg Q4H PRN Administration Pain, Moderate (4-6) Sodium Chloride 100 mls @ 999 mls/hr 08/30/21 12:00 Nacl 0.9% IV KATI PRN Hypotension Insulin Glargine 22 units 09/02/21 10:00 09/03/21 01:01 Insulin Glargine 100 Units/Ml SUB-Q 22 units BID HAM Administration Insulin Human Lispro 0 unit 08/18/21 00:00 09/03/21 06:24 Insulin Lispro 100 Unit/Ml SUB-Q Not Given Q6HR [facility] Protocol Levetiracetam 500 mg 08/20/21 10:00 09/03/21 09:32 Levetiracetam 500 Mg Tab PO 500 mg DAILY HAM Administration Levothyroxine Sodium 125 mcg 08/22/21 06:00 09/03/21 06:21 Levothyroxine 125 Mcg Tab PO 125 mcg QAM@0600 HAM Administration Losartan Potassium 50 mg 08/17/21 10:00 09/03/21 09:32 Losartan 50 Mg Tab PO 50 mg QDAY HAM Administration Magnesium Hydroxide 30 ml 08/17/21 04:09 08/23/21 23:56 Magnesium Hydroxide (Mom) Oral Liqd Udc PO 30 ml Q4H PRN Administration Constipation Metoprolol Tartrate 100 mg 08/20/21 11:00 09/03/21 09:32 Metoprolol Tartrate 100 Mg Tab PO 100 mg BID HAM Administration Ondansetron HCl 4 mg 08/17/21 04:09 Ondansetron 4 Mg/2 Ml Inj IV Q8H PRN Nausea And Vomiting Simple Syrup 15 ml 08/26/21 16:00 Simple Syrup 15 Ml FEEDTUBE PRN PRN Hypoglycemia Simple Syrup 30 ml 08/26/21 16:00 Simple Syrup 15 Ml FEEDTUBE PRN PRN Hypoglycemia Sodium Bicarbonate 325 mg 08/26/21 16:00 Sodium Bicarbonate 325 Mg Tab FEEDTUBE PRN PRN For Clogged Feeding Tube Sodium Chloride 10 ml 08/17/21 10:00 09/02/21 22:16 Sodium Chloride 0.9% 10 Ml Flush Syringe IV 10 ml BID HAM Administration Sodium Chloride 10 ml 08/17/21 04:09 08/19/21 02:59 Sodium Chloride 0.9% 10 Ml Flush Syringe IV 10 ml PRN PRN Administration LINE FLUSH
[2021-09-03] MEDS: amLODIPine 10 MG TAB PO SCH (09:47)
--- NOTE | 2021-09-03 12:22 | Progress Note ---
Assessment and Plan Possible Sepsis- high grade fevers, tachycardia, acute encephalopathy, tachypnea-resolved DKA (Diabetic Ketoacidosis)-resolved Acute Metabolic Encephalopathy-resolved h/o CVA (cerebral infarction) with left-sided deficits End Stage renal Disease(ESRD) on HD HTN (Hypertension) h/o Hypothyroidism s/p thrombectomy. Continue all current care. PT/OT, increase activity Decision re anticoagulation on discharge per primary service and vascular Continue with aspiration precautions -Continue to Titrate supplemental oxygen to keep SpO2 89-92% -Continue with aspiration precaution -Continue with modified oral diet with aspiration precautions -Supportive HD per Renal -Continue to monitor hemodynamics closely -Monitor blood glucose, avoid hypoglycemia -VTE prophylaxis- heparin -Continue all supportive care, seizure precautions -Maintain sleep-wake cycle -Mobility per facility protocol, off loading and frequent turning to prevent pressure ulcers All other care per primary service and other consulting physicians Discharge planning per primary service CONDITION:FAIR PROGNOSIS:FAIR CODE STATUS: FULL CODE Subjective Date of service: 09/03/21 Principal diagnosis: Possible Sepsis; DKA; AMS; h/o CVA left hemiparesis; ESRD on Dialysis; HTN Interval history: Follow up: DKA; acute encephaloapthy Seen and examined. Vitals, labs, medications, chart reviewed. Discussed with nursing, no adverse overnight events. Patient is awake and alert, slow speech but is talking and appropriately answering questions. She denies any chest pain, no shortness of breath, no fevers, no chills, no nausea or vomiting. No new respiratory issues Objective Vital Signs - 12hr 09/03/21 09/03/21 09/03/21 04:00 04:01 07:23 Temperature 98.3 F 98.5 F Pulse Rate 80 69 67 Respiratory 18 16 Rate Blood Pressure 125/58 111/53 O2 Sat by Pulse 99 97 Oximetry Constitutional: no acute distress, alert, other (middle aged obese female with normal respiratory effort at rest) Eyes: non-icteric ENT: oropharynx moist Neck: supple, no lymphadenopathy, no JVD, other (large circumference) Effort: normal Ascultation: Bilateral: clear, diminished breath sounds Percussion: Bilateral: not dull Cardiovascular: regular rate and rhythm, other (S1,S2) Gastrointestinal: normoactive bowel sounds, soft, non-tender, non-distended (protuberant), other (obese) Integumentary: normal Extremities: no cyanosis, no edema, pulses normal, no ischemia or petechiae Neurologic: normal mental status, pupils equal and round, CN II-XII normal Psychiatric: mood appropriate, affect normal CBC and BMP: 09/05/21 04:57 09/04/21 10:04 ABG, PT/INR, D-dimer: PT/INR, D-dimer PT 14.0 Sec. (12.2-14.9) 08/23/21 22:59 INR 0.97 (0.87-1.13) 08/23/21 22:59 D-Dimer 2695.37 ng/mlDDU (0-234) H 08/17/21 14:40 Abnormal lab findings: Abnormal Labs 08/17/21 08/17/21 08/17/21 00:33 00:33 02:07 WBC MCH RDW 19.7 H Lymph % (Auto) 10.5 L [place] % (Auto) Lymph # (Auto) 1.1 L [place] # (Auto) Baso # (Auto) Seg Neutrophils % 79.1 H Seg Neutrophils # 8.6 H D-Dimer Sodium 132 L 134 L Chloride 87.8 L 88.4 L Carbon Dioxide 21 L BUN 61 H 61 H Creatinine 10.1 H 10.3 H Glucose 594 H* 533 H* POC Glucose Hemoglobin A1c Calcium Phosphorus Magnesium ALT < 5 L Alkaline Phosphatase 182 H NT-Pro-B Natriuret Pep 39492 H Albumin HDL Cholesterol TSH Salicylates Acetaminophen 08/17/21 08/17/21 08/17/21 02:07 02:07 02:07 WBC MCH RDW Lymph % (Auto) [place] % (Auto) Lymph # (Auto) [place] # (Auto) Baso # (Auto) Seg Neutrophils % Seg Neutrophils # D-Dimer Sodium Chloride Carbon Dioxide BUN Creatinine Glucose POC Glucose Hemoglobin A1c Calcium Phosphorus Magnesium ALT Alkaline Phosphatase NT-Pro-B Natriuret Pep Albumin HDL Cholesterol TSH 5.080 H Salicylates < 0.3 L Acetaminophen 5.0 L 08/17/21 08/17/21 08/17/21 04:20 04:20 05:09 WBC MCH RDW Lymph % (Auto) [place] % (Auto) Lymph # (Auto) [place] # (Auto) Baso # (Auto) Seg Neutrophils % Seg Neutrophils # D-Dimer Sodium 136 L Chloride 90.9 L Carbon Dioxide BUN 61 H Creatinine 10.4 H Glucose 351 H POC Glucose 298 H Hemoglobin A1c Calcium Phosphorus 6.20 H Magnesium ALT Alkaline Phosphatase NT-Pro-B Natriuret Pep Albumin HDL Cholesterol TSH Salicylates Acetaminophen 08/17/21 08/17/21 08/17/21 09:58 10:53 13:14 WBC MCH RDW Lymph % (Auto) [place] % (Auto) Lymph # (Auto) [place] # (Auto) Baso # (Auto) Seg Neutrophils % Seg Neutrophils # D-Dimer Sodium Chloride Carbon Dioxide BUN Creatinine Glucose POC Glucose 139 H 162 H 145 H Hemoglobin A1c Calcium Phosphorus Magnesium ALT Alkaline Phosphatase NT-Pro-B Natriuret Pep Albumin HDL Cholesterol TSH Salicylates Acetaminophen 08/17/21 08/17/21 08/17/21 14:40 14:40 14:40 WBC MCH RDW Lymph % (Auto) [place] % (Auto) Lymph # (Auto) [place] # (Auto) Baso # (Auto) Seg Neutrophils % Seg Neutrophils # D-Dimer 2695.37 H Sodium Chloride 96.7 L Carbon Dioxide BUN 63 H Creatinine 10.7 H Glucose 145 H POC Glucose Hemoglobin A1c Calcium Phosphorus Magnesium ALT Alkaline Phosphatase NT-Pro-B Natriuret Pep Albumin HDL Cholesterol 30 L TSH Salicylates Acetaminophen 08/17/21 08/17/21 08/17/21 14:40 16:45 17:47 WBC MCH RDW Lymph % (Auto) [place] % (Auto) Lymph # (Auto) [place] # (Auto) Baso # (Auto) Seg Neutrophils % Seg Neutrophils # D-Dimer Sodium Chloride 96.2 L Carbon Dioxide BUN 44 H Creatinine 7.2 H Glucose 167 H POC Glucose 136 H 165 H Hemoglobin A1c Calcium Phosphorus Magnesium ALT Alkaline Phosphatase NT-Pro-B Natriuret Pep Albumin HDL Cholesterol TSH Salicylates Acetaminophen 08/17/21 08/17/21 08/17/21 18:01 21:01 22:40 WBC MCH RDW Lymph % (Auto) [place] % (Auto) Lymph # (Auto) [place] # (Auto) Baso # (Auto) Seg Neutrophils % Seg Neutrophils # D-Dimer Sodium Chloride 97.1 L 96.4 L Carbon Dioxide BUN 39 H 40 H Creatinine 8.0 H 8.5 H Glucose 122 H 109 H POC Glucose 172 H Hemoglobin A1c Calcium Phosphorus Magnesium ALT Alkaline Phosphatase NT-Pro-B Natriuret Pep Albumin HDL Cholesterol TSH Salicylates Acetaminophen 08/17/21 08/18/21 08/18/21 22:40 02:13 04:56 WBC MCH 27 L RDW 19.7 H Lymph % (Auto) [place] % (Auto) Lymph # (Auto) [place] # (Auto) Baso # (Auto) Seg Neutrophils % Seg Neutrophils # D-Dimer Sodium Chloride 96.8 L Carbon Dioxide BUN 44 H Creatinine 9.3 H Glucose 170 H POC Glucose 190 H Hemoglobin A1c Calcium Phosphorus 6.70 H Magnesium ALT Alkaline Phosphatase NT-Pro-B Natriuret Pep Albumin HDL Cholesterol TSH Salicylates Acetaminophen 08/18/21 08/18/21 08/18/21 04:56 04:56 17:01 WBC MCH 27 L RDW 19.7 H Lymph % (Auto) [place] % (Auto) 9.7 H Lymph # (Auto) [place] # (Auto) Baso # (Auto) Seg Neutrophils % Seg Neutrophils # D-Dimer Sodium Chloride Carbon Dioxide BUN Creatinine Glucose POC Glucose 228 H Hemoglobin A1c 10.2 H Calcium Phosphorus Magnesium ALT Alkaline Phosphatase NT-Pro-B Natriuret Pep Albumin HDL Cholesterol TSH Salicylates Acetaminophen 08/18/21 08/19/21 08/19/21 23:58 04:37 04:37 WBC MCH 27 L RDW 19.5 H Lymph % (Auto) [place] % (Auto) Lymph # (Auto) [place] # (Auto) Baso # (Auto) Seg Neutrophils % Seg Neutrophils # D-Dimer Sodium Chloride 96.7 L Carbon Dioxide 21 L BUN 57 H Creatinine 10.2 H Glucose 151 H POC Glucose 192 H Hemoglobin A1c Calcium Phosphorus Magnesium ALT Alkaline Phosphatase NT-Pro-B Natriuret Pep Albumin HDL Cholesterol TSH Salicylates Acetaminophen 08/19/21 08/19/21 08/20/21 17:46 22:59 04:24 WBC MCH RDW Lymph % (Auto) [place] % (Auto) Lymph # (Auto) [place] # (Auto) Baso # (Auto) Seg Neutrophils % Seg Neutrophils # D-Dimer Sodium 133 L Chloride 87.9 L Carbon Dioxide 15 L BUN 33 H Creatinine 7.3 H Glucose 365 H POC Glucose 217 H 282 H Hemoglobin A1c Calcium Phosphorus 6.50 H Magnesium ALT Alkaline Phosphatase NT-Pro-B Natriuret Pep Albumin HDL Cholesterol TSH Salicylates Acetaminophen 08/20/21 08/20/21 08/20/21 06:07 07:51 15:37 WBC MCH RDW Lymph % (Auto) [place] % (Auto) Lymph # (Auto) [place] # (Auto) Baso # (Auto) Seg Neutrophils % Seg Neutrophils # D-Dimer Sodium Chloride Carbon Dioxide BUN Creatinine Glucose POC Glucose 398 H 308 H 247 H Hemoglobin A1c Calcium Phosphorus Magnesium ALT Alkaline Phosphatase NT-Pro-B Natriuret Pep Albumin HDL Cholesterol TSH Salicylates Acetaminophen 08/20/21 08/21/21 08/21/21 23:22 04:45 05:07 WBC MCH RDW Lymph % (Auto) [place] % (Auto) Lymph # (Auto) [place] # (Auto) Baso # (Auto) Seg Neutrophils % Seg Neutrophils # D-Dimer Sodium 134 L Chloride 92.9 L Carbon Dioxide BUN 48 H Creatinine 8.0 H Glucose 389 H POC Glucose 316 H 407 H Hemoglobin A1c Calcium 10.6 H Phosphorus Magnesium ALT Alkaline Phosphatase NT-Pro-B Natriuret Pep Albumin HDL Cholesterol TSH Salicylates Acetaminophen 08/21/21 08/21/21 08/21/21 11:37 15:52 23:44 WBC MCH RDW Lymph % (Auto) [place] % (Auto) Lymph # (Auto) [place] # (Auto) Baso # (Auto) Seg Neutrophils % Seg Neutrophils # D-Dimer Sodium Chloride Carbon Dioxide BUN Creatinine Glucose POC Glucose 244 H 325 H 221 H Hemoglobin A1c Calcium Phosphorus Magnesium ALT Alkaline Phosphatase NT-Pro-B Natriuret Pep Albumin HDL Cholesterol TSH Salicylates Acetaminophen 08/22/21 08/22/21 08/23/21 06:06 12:27 00:37 WBC MCH RDW Lymph % (Auto) [place] % (Auto) Lymph # (Auto) [place] # (Auto) Baso # (Auto) Seg Neutrophils % Seg Neutrophils # D-Dimer Sodium Chloride Carbon Dioxide BUN Creatinine Glucose POC Glucose 224 H 247 H 341 H Hemoglobin A1c Calcium Phosphorus Magnesium ALT Alkaline Phosphatase NT-Pro-B Natriuret Pep Albumin HDL Cholesterol TSH Salicylates Acetaminophen 08/23/21 08/23/21 08/23/21 04:20 05:37 11:56 WBC MCH RDW Lymph % (Auto) [place] % (Auto) Lymph # (Auto) [place] # (Auto) Baso # (Auto) Seg Neutrophils % Seg Neutrophils # D-Dimer Sodium Chloride 94.4 L Carbon Dioxide BUN 49 H Creatinine 7.7 H Glucose 201 H POC Glucose 210 H 162 H Hemoglobin A1c Calcium 10.9 H Phosphorus Magnesium ALT Alkaline Phosphatase NT-Pro-B Natriuret Pep Albumin HDL Cholesterol TSH Salicylates Acetaminophen 08/23/21 08/23/21 08/23/21 17:45 22:58 22:59 WBC 12.2 H MCH 26 L RDW 20.3 H Lymph % (Auto) [place] % (Auto) Lymph # (Auto) [place] # (Auto) Baso # (Auto) Seg Neutrophils % Seg Neutrophils # D-Dimer Sodium Chloride Carbon Dioxide BUN Creatinine Glucose POC Glucose 211 H 218 H Hemoglobin A1c Calcium Phosphorus Magnesium ALT Alkaline Phosphatase NT-Pro-B Natriuret Pep Albumin HDL Cholesterol TSH Salicylates Acetaminophen 08/23/21 08/24/21 08/24/21 22:59 04:23 04:23 WBC 15.4 H MCH 27 L RDW 19.8 H Lymph % (Auto) [place] % (Auto) 13.0 H Lymph # (Auto) [place] # (Auto) 2.0 H Baso # (Auto) 0.2 H Seg Neutrophils % Seg Neutrophils # 9.8 H D-Dimer Sodium 136 L Chloride 93.0 L Carbon Dioxide BUN 73 H Creatinine 8.7 H 9.2 H Glucose 145 H POC Glucose Hemoglobin A1c Calcium 10.7 H Phosphorus 6.30 H Magnesium 2.70 H ALT 6 L Alkaline Phosphatase 157 H NT-Pro-B Natriuret Pep Albumin 3.7 L HDL Cholesterol TSH Salicylates Acetaminophen 08/24/21 08/24/21 08/24/21 05:09 11:20 18:28 WBC MCH RDW Lymph % (Auto) [place] % (Auto) Lymph # (Auto) [place] # (Auto) Baso # (Auto) Seg Neutrophils % Seg Neutrophils # D-Dimer Sodium Chloride Carbon Dioxide BUN Creatinine Glucose POC Glucose 155 H 110 H 182 H Hemoglobin A1c Calcium Phosphorus Magnesium ALT Alkaline Phosphatase NT-Pro-B Natriuret Pep Albumin HDL Cholesterol TSH Salicylates Acetaminophen 08/25/21 08/25/21 08/25/21 00:15 04:44 11:28 WBC 11.3 H MCH 27 L RDW 20.4 H Lymph % (Auto) [place] % (Auto) Lymph # (Auto) [place] # (Auto) Baso # (Auto) Seg Neutrophils % Seg Neutrophils # D-Dimer Sodium Chloride Carbon Dioxide BUN Creatinine Glucose POC Glucose 247 H 189 H Hemoglobin A1c Calcium Phosphorus Magnesium ALT Alkaline Phosphatase NT-Pro-B Natriuret Pep Albumin HDL Cholesterol TSH Salicylates Acetaminophen 08/25/21 08/25/21 08/26/21 16:42 23:29 05:22 WBC MCH RDW Lymph % (Auto) [place] % (Auto) Lymph # (Auto) [place] # (Auto) Baso # (Auto) Seg Neutrophils % Seg Neutrophils # D-Dimer Sodium Chloride Carbon Dioxide BUN Creatinine 10.0 H Glucose POC Glucose 169 H 213 H Hemoglobin A1c Calcium Phosphorus Magnesium ALT Alkaline Phosphatase NT-Pro-B Natriuret Pep Albumin HDL Cholesterol TSH Salicylates Acetaminophen 08/26/21 08/26/21 08/26/21 06:12 11:47 23:33 WBC MCH RDW Lymph % (Auto) [place] % (Auto) Lymph # (Auto) [place] # (Auto) Baso # (Auto) Seg Neutrophils % Seg Neutrophils # D-Dimer Sodium Chloride Carbon Dioxide BUN Creatinine Glucose POC Glucose 191 H 197 H 197 H Hemoglobin A1c Calcium Phosphorus Magnesium ALT Alkaline Phosphatase NT-Pro-B Natriuret Pep Albumin HDL Cholesterol TSH Salicylates Acetaminophen 08/27/21 08/27/21 08/27/21 06:02 06:02 06:17 WBC MCH 27 L RDW 20.1 H Lymph % (Auto) [place] % (Auto) 14.2 H Lymph # (Auto) [place] # (Auto) 1.4 H Baso # (Auto) Seg Neutrophils % Seg Neutrophils # D-Dimer Sodium 134 L Chloride 93.8 L Carbon Dioxide BUN 56 H Creatinine 6.4 H Glucose 253 H POC Glucose 250 H Hemoglobin A1c Calcium Phosphorus 6.00 H Magnesium 2.50 H ALT < 5 L Alkaline Phosphatase 135 H NT-Pro-B Natriuret Pep Albumin 3.6 L HDL Cholesterol TSH Salicylates Acetaminophen 08/27/21 08/27/21 08/27/21 11:21 16:05 23:13 WBC MCH RDW Lymph % (Auto) [place] % (Auto) Lymph # (Auto) [place] # (Auto) Baso # (Auto) Seg Neutrophils % Seg Neutrophils # D-Dimer Sodium Chloride Carbon Dioxide BUN Creatinine Glucose POC Glucose 287 H 321 H 286 H Hemoglobin A1c Calcium Phosphorus Magnesium ALT Alkaline Phosphatase NT-Pro-B Natriuret Pep Albumin HDL Cholesterol TSH Salicylates Acetaminophen 08/28/21 08/28/21 08/28/21 05:11 05:29 11:30 WBC MCH RDW Lymph % (Auto) [place] % (Auto) Lymph # (Auto) [place] # (Auto) Baso # (Auto) Seg Neutrophils % Seg Neutrophils # D-Dimer Sodium 134 L Chloride 91.8 L Carbon Dioxide BUN 79 H Creatinine 8.2 H Glucose 230 H POC Glucose 225 H 190 H Hemoglobin A1c Calcium 10.8 H Phosphorus Magnesium ALT Alkaline Phosphatase NT-Pro-B Natriuret Pep Albumin HDL Cholesterol TSH Salicylates Acetaminophen 08/28/21 08/29/21 08/29/21 15:53 00:04 04:29 WBC MCH 27 L RDW 20.6 H Lymph % (Auto) [place] % (Auto) Lymph # (Auto) [place] # (Auto) Baso # (Auto) Seg Neutrophils % Seg Neutrophils # D-Dimer Sodium Chloride Carbon Dioxide BUN Creatinine Glucose POC Glucose 235 H 223 H Hemoglobin A1c Calcium Phosphorus Magnesium ALT Alkaline Phosphatase NT-Pro-B Natriuret Pep Albumin HDL Cholesterol TSH Salicylates Acetaminophen 08/29/21 08/29/21 08/29/21 04:29 05:37 16:14 WBC MCH RDW Lymph % (Auto) [place] % (Auto) Lymph # (Auto) [place] # (Auto) Baso # (Auto) Seg Neutrophils % Seg Neutrophils # D-Dimer Sodium Chloride Carbon Dioxide BUN Creatinine 9.8 H Glucose POC Glucose 174 H 200 H Hemoglobin A1c Calcium Phosphorus Magnesium ALT Alkaline Phosphatase NT-Pro-B Natriuret Pep Albumin HDL Cholesterol TSH Salicylates Acetaminophen 08/30/21 08/30/21 08/30/21 00:10 05:12 05:12 WBC MCH 27 L RDW 20.2 H Lymph % (Auto) [place] % (Auto) 12.7 H Lymph # (Auto) [place] # (Auto) 1.4 H Baso # (Auto) 0.2 H Seg Neutrophils % Seg Neutrophils # D-Dimer Sodium Chloride 97.5 L Carbon Dioxide BUN 58 H Creatinine 6.9 H Glucose 112 H POC Glucose 111 H Hemoglobin A1c Calcium 10.8 H Phosphorus 6.00 H Magnesium 2.80 H ALT Alkaline Phosphatase 147 H NT-Pro-B Natriuret Pep Albumin HDL Cholesterol TSH Salicylates Acetaminophen 08/30/21 08/31/21 08/31/21 16:40 00:27 04:30 WBC MCH RDW Lymph % (Auto) [place] % (Auto) Lymph # (Auto) [place] # (Auto) Baso # (Auto) Seg Neutrophils % Seg Neutrophils # D-Dimer Sodium Chloride Carbon Dioxide BUN Creatinine Glucose POC Glucose 224 H 200 H 125 H Hemoglobin A1c Calcium Phosphorus Magnesium ALT Alkaline Phosphatase NT-Pro-B Natriuret Pep Albumin HDL Cholesterol TSH Salicylates Acetaminophen 09/02/21 09/02/21 09/03/21 06:04 18:25 00:55 WBC MCH RDW Lymph % (Auto) [place] % (Auto) Lymph # (Auto) [place] # (Auto) Baso # (Auto) Seg Neutrophils % Seg Neutrophils # D-Dimer Sodium Chloride Carbon Dioxide BUN Creatinine Glucose POC Glucose 68 L 134 H 110 H Hemoglobin A1c Calcium Phosphorus Magnesium ALT Alkaline Phosphatase NT-Pro-B Natriuret Pep Albumin HDL Cholesterol TSH Salicylates Acetaminophen 09/03/21 05:53 WBC MCH RDW Lymph % (Auto) [place] % (Auto) Lymph # (Auto) [place] # (Auto) Baso # (Auto) Seg Neutrophils % Seg Neutrophils # D-Dimer Sodium Chloride Carbon Dioxide BUN Creatinine Glucose POC Glucose 64 L Hemoglobin A1c Calcium Phosphorus Magnesium ALT Alkaline Phosphatase NT-Pro-B Natriuret Pep Albumin HDL Cholesterol TSH Salicylates Acetaminophen Allied health notes reviewed: nursing
--- NOTE | 2021-09-03 14:24 | Consultation ---
History of Present Illness - Reason for Consult Consult date: 09/03/21 Reason for consult: [place] psych issue - Chief Complaint Chief complaint: Altered mental status - History of Present Psychiatric Illness H&P: 41 yo F with h/o CVA, chronic kidney disease currently on dialysis on Sunday, Sunday and Fridays and DM brought in by family member with altered mental status change that was noticed around 8 PM last night. Patient blood sugar was checked at home and it was above 500 mg/dl according to family member. Patient is reported to have type 1 diabetes and currently on insulin. Patient is unresponsive at this point and could not give any history. History is very limited to what the family member provided. Patient was reported to have missed dialysis on Sunday plan to have 1 this morning. No other modifying or associated factors reported. The patient is a 41 year old female with history of depression. The patient was seen today. She is calm, alert and oriented x2. The patient presents with constricted affect. She reports being compliant with psychotropic meds. The patient reports stressor such as the recent demise of her father in July and admits admits having increasing anxiety x 2weeks, rates as 10/10; she denies depression. She denies any current suicidal/homicidal ideation and denies hallucinations. PAST PSYCHIATRIC HISTORY: Diagnoses: Depression Suicide attempts or Self-harm behavior: Denies Prior psychiatric hospitalizations: Denies Substance Abuse history: Denies Previous psychiatric medications tried: Celexa Outpatient treatment: Yes PAST MEDICAL HISTORY: None reported or document Family Psychiatric History: None reported or documented SOCIAL HISTORY Marital Status: Single Living Arrangements: Lives with mother Employment Status: Disabled Access to guns/weapons: Denies Education:some college History of Abuse:Denies Legal History: Denies REVIEW OF SYSTEMS Constitutional: Negative for weight loss ENT: Negative for stridor Respiratory: Negative for cough or hemoptysis All other systems reviewed and are negative MENTAL STATUS EXAMINATION General Appearance and Behavior: Age appropriate, wearing appropriate clothes, cooperative, polite with questioning, good eye contact Cooperation: cooperative Psychomotor Behavior: Psychomotor normal Mood: anxious Affect and affective range: congruent with stated mood Thought Process: Goal directed Thought Content: Reality oriented Speech: Normal volume, and tone Suicidal Ideation: Denies Homicidal Ideation: Denies Hallucination: Denies Delusions: None elicited Impulse Control: Limited Insight and Judgment: Limited Memory: limited Attention:attentive Orientation: Alert and oriented Diagnoses: Unspecified anxiety disorder Hx of depression Treatment Plan Increased Celexa to 40mg po daily Start Hydroxyzine 25mg po Q6hrs PRN for anxiety Medical: per primary Sitter: defer to primary Disposition: Do not recommend acute psychiatric inpatient treatment. Will follow for medication management. Thanks Case staffed with Dr. Osman Medications and Allergies Medications and Allergies Allergies Allergy/AdvReac Type Severity Reaction Status Date / Time vancomycin AdvReac Hives Verified 04/02/13 10:16 Home Medications Medication Instructions Recorded Confirmed Last Taken Type Hydralazine HCl [hydrALAZINE] 100 mg PO BID 04/02/13 08/17/21 04/02/13 08:00 History Aspirin/Dipyridamole [Aggrenox] 1 cap PO BID #60 capsule 04/10/13 08/17/21 Unknown Rx Cinacalcet [Sensipar] 60 mg PO QDAY 08/17/21 08/17/21 Unknown History Citalopram [celeXA] 20 mg PO QDAY 08/17/21 08/17/21 Unknown History Gabapentin [Neurontin] 100 mg PO Q8HR 08/17/21 08/17/21 Unknown History Insulin Glargine,Hum.rec.anlog 55 unit SQ BID 08/17/21 08/17/21 Unknown History [Lantus Solostar] Promethazine [Phenergan] 25 mg PO Q6HR PRN 08/17/21 08/17/21 Unknown History Sevelamer Carbonate [Renvela] 800 mg PO TIDWM 08/17/21 08/17/21 Unknown History amLODIPine [Norvasc] 10 mg PO DAILY 08/17/21 08/17/21 Unknown History carvediloL [Coreg] 25 mg PO BID 08/17/21 08/17/21 Unknown History Albuterol Mdi (or & Nicu Only) 2 puff IH QID PRN 08/29/21 08/29/21 Unknown History [ProAir HFA Inhaler] AtorvaSTATin [Lipitor] 40 mg PO QHS 08/29/21 08/29/21 Unknown History Cetirizine HCl [Zyrtec 10mg tab] 10 mg PO QDAY 08/29/21 08/29/21 Unknown History Ferric Citrate (Nf) [Auryxia] 210 mg PO TID 08/29/21 08/29/21 Unknown History Fluticasone [Flonase] 2 spray NS QDAY PRN 08/29/21 08/29/21 Unknown History Furosemide [Lasix TAB] 40 mg PO QDAY 08/29/21 08/29/21 Unknown History Insulin Aspart (Nf) [NovoLOG 15 units SQ TIDAC 08/29/21 08/29/21 Unknown History Flexpen] Metoclopramide [Reglan] 10 mg PO HS 08/29/21 08/29/21 Unknown History Pantoprazole [Protonix] 40 mg PO QDAY 08/29/21 08/29/21 Unknown History Prochlorperazine Maleate 10 mg PO QDAY PRN 08/29/21 08/29/21 Unknown History [Compazine] Sucroferric Oxyhydroxide(Nf) 500 mg PO TIDWM 08/29/21 08/29/21 Unknown History [Velphoro (Nf)] cloNIDine [Catapres] 0.1 mg PO TID 08/29/21 08/29/21 Unknown History Active Meds: Active Medications Acetaminophen (Acetaminophen 325 Mg Tab) 650 mg PO Q6H PRN PRN Reason: Pain, Mild (1-3) Last Admin: 08/30/21 20:25 Dose: 650 mg Acetaminophen (Acetaminophen 650 Mg Rect Supp) 650 mg MS Q4H PRN PRN Reason: Pain, Mild (1-3) Last Admin: 08/17/21 14:49 Dose: 650 mg Albuterol (Albuterol 2.5 Mg/3 Ml Nebu) 2.5 mg IH Q4HRT PRN PRN Reason: Shortness Of Breath Amlodipine Besylate (Amlodipine 10 Mg Tab) 10 mg PO QDAY [facility] Last Admin: 09/03/21 09:47 Dose: 10 mg Lipase/Protease/Amylase (Lipase 10,500/Protease 25,000/Amylase 43,750 (Units) Dr Lopez) 1 each FEEDTUBE PRN PRN PRN Reason: For Clogged Feeding Tube Aspirin (Aspirin 325 Mg Tab) 325 mg FEEDTUBE QDAY [facility] Last Admin: 09/03/21 09:32 Dose: 325 mg Atorvastatin Calcium (Atorvastatin 40 Mg Tab) 40 mg PO QHS [facility] Last Admin: 09/02/21 21:05 Dose: 40 mg Citalopram Hydrobromide (Citalopram 20 Mg Tab) 20 mg PO QDAY [facility] Last Admin: 09/03/21 09:32 Dose: 20 mg Clonidine HCl (Clonidine 0.1 Mg Tab) 0.1 mg PO TID [facility] Last Admin: 09/03/21 09:32 Dose: 0.1 mg Dextrose (Dextrose 50% In Water (25gm) 50 Ml Syringe) 50 ml IV Q30MIN PRN; Protocol PRN Reason: Hypoglycemia Duloxetine HCl (Duloxetine 30 Mg Cap) 30 mg PO QDAY [facility] Last Admin: 08/23/21 17:08 Dose: Not Given Famotidine (Famotidine 20 Mg Tab) 20 mg FEEDTUBE QDAY [facility] Last Admin: 09/03/21 09:32 Dose: 20 mg Haloperidol Lactate (Haloperidol Lactate 5 Mg/1 Ml Inj) 5 mg IV Q6H PRN PRN Reason: Agitation Last Admin: 09/01/21 11:41 Dose: 5 mg Heparin Sodium (Porcine) (Heparin 5,000 Unit/1 Ml Vial) 5,000 unit SUB-Q Q8HR [facility] Last Admin: 09/03/21 06:21 Dose: 5,000 unit Heparin Sodium (Porcine) (Heparin 10,000 Units/10 Ml Vial) 3,000 unit IV KATI PRN PRN Reason: hemodialysis Last Admin: 08/31/21 10:38 Dose: 3,000 unit Hydralazine HCl (Hydralazine 100 Mg Tab) 100 mg PO TID [facility] Last Admin: 09/03/21 09:32 Dose: 100 mg Hydralazine HCl (Hydralazine 20 Mg/1 Ml Inj) 10 mg IV Q4HR PRN PRN Reason: Hypertension Last Admin: 08/25/21 05:19 Dose: 10 mg Hydromorphone HCl (Hydromorphone 0.5 Mg/0.5 Ml Inj) 0.25 mg IV Q4H PRN PRN Reason: Pain, Moderate (4-6) Last Admin: 09/03/21 09:38 Dose: 0.25 mg Sodium Chloride (Nacl 0.9%) 100 mls @ 999 mls/hr IV KATI PRN PRN Reason: Hypotension Insulin Glargine (Insulin Glargine 100 Units/Ml) 22 units SUB-Q BID [facility] Last Admin: 09/03/21 09:47 Dose: Not Given Insulin Human Lispro (Insulin Lispro 100 Unit/Ml) 0 unit SUB-Q Q6HR [facility]; Pro tocol Last Admin: 09/03/21 06:24 Dose: Not Given Levetiracetam (Levetiracetam 500 Mg Tab) 500 mg PO DAILY [facility] Last Admin: 09/03/21 09:32 Dose: 500 mg Levothyroxine Sodium (Levothyroxine 125 Mcg Tab) 125 mcg PO QAM@0600 [facility] Last Admin: 09/03/21 06:21 Dose: 125 mcg Losartan Potassium (Losartan 50 Mg Tab) 50 mg PO QDAY [facility] Last Admin: 09/03/21 09:32 Dose: 50 mg Magnesium Hydroxide (Magnesium Hydroxide (Mom) Oral Liqd Udc) 30 ml PO Q4H PRN PRN Reason: Constipation Last Admin: 08/23/21 23:56 Dose: 30 ml Metoprolol Tartrate (Metoprolol Tartrate 100 Mg Tab) 100 mg PO BID [facility] Last Admin: 09/03/21 09:32 Dose: 100 mg Ondansetron HCl (Ondansetron 4 Mg/2 Ml Inj) 4 mg IV Q8H PRN PRN Reason: Nausea And Vomiting Simple Syrup (Simple Syrup 15 Ml) 15 ml FEEDTUBE PRN PRN PRN Reason: Hypoglycemia Simple Syrup (Simple Syrup 15 Ml) 30 ml FEEDTUBE PRN PRN PRN Reason: Hypoglycemia Sodium Bicarbonate (Sodium Bicarbonate 325 Mg Tab) 325 mg FEEDTUBE PRN PRN PRN Reason: For Clogged Feeding Tube Sodium Chloride (Sodium Chloride 0.9% 10 Ml Flush Syringe) 10 ml IV BID [facility] Last Admin: 09/03/21 09:47 Dose: 10 ml Sodium Chloride (Sodium Chloride 0.9% 10 Ml Flush Syringe) 10 ml IV PRN PRN PRN Reason: LINE FLUSH Last Admin: 08/19/21 02:59 Dose: 10 ml Mental Status Exam - Vital signs Last Vital Signs Temp 98.4 F 09/03/21 12:54 Pulse 73 09/03/21 12:54 Resp 16 09/03/21 12:54 BP 141/53 09/03/21 12:54 Pulse Ox 97 09/03/21 12:54 Results Result Diagrams: 08/30/21 05:12 08/30/21 05:12 Abnormal lab results 09/02/21 09/03/21 09/03/21 Range/Units 18:25 00:55 05:53 POC Glucose 134 H 110 H 64 L (70-105) mg/dL All other labs normal.
[2021-09-03] MEDS ORDERED: hydrOXYzine PAMOATE 25 MG CAP PO PRN (14:50)
--- NOTE | 2021-09-03 15:01 | XRay Report ---
ABDOMEN 1 VIEW 09/03/2021 2:23 PM INDICATION / CLINICAL INFORMATION: Dobbhoff placement. COMPARISON: 08/29/21 FINDINGS: TUBES / LINES: Weighted feeding tube projects over the proximal to mid stomach. BOWEL GAS PATTERN: No dilated large or small bowel. Contrast present in the distal colon and rectum. FREE AIR / EXTRALUMINAL GAS: None. ADDITIONAL FINDINGS: No significant additional findings. IMPRESSION: 1. Feeding tube in expected position. Signer Name: Clair Ramos MD Signed: 09/03/2021 2:56 PM Workstation Name: [id number]
[2021-09-04] MEDS: INSULIN GLARGINE 100 UNITS/ML SUB-Q SCH ×3 (00:10→22:52)
[2021-09-04] MEDS: INSULIN LISPRO 100 UNIT/ML SUB-Q SCH ×4 (00:10→17:19)
[2021-09-04] MEDS: HYDROmorphone 0.5 MG/0.5 ML INJ IV PRN ×3 (03:45→22:56)
[2021-09-04] MEDS: LEVOTHYROXINE 125 MCG TAB PO SCH (05:37)
[2021-09-04] MEDS: HEPARIN 5,000 UNIT/1 ML VIAL SUB-Q SCH ×3 (05:37→22:52)
--- NOTE | 2021-09-04 07:19 | Progress Note ---
Assessment and Plan Assessment and plan: #Right upper extremity AV graft thrombosis #End Stage Renal Disease requiring hemodialysis -s/p AVF declotting 08/26 via IR/Vascular surgery -s/p vascular surgery/ thrombectomy of right arm AV loop graft. -temporary vasc cath removed 08/26 -continue HD per Nephro -avoid nephrotoxic medications; Renally dose medications #DKA (Diabetic Ketoacidosis)-resolved #Type II diabetes, insulin dependent -s/p insulin gtt -Patient with hypoglycemia secondary to reduced oral intake; continue tube feeds -Hgb A1C 10.2% -continue lantus 22U BID, continue SSI -goal glucose 140-180 while inpatient; currently controlled #Sepsis ruled out -patient afebrile, WBC normalizing -Blood cultures with NGTD x 5days -s/p IV abx, none needed due to no infectious process found -ID consulted, signed off #Acute Metabolic Encephalopathy-improving #H/o CVA (cerebral infarction) with left-sided deficits -Multifactorial, DKA vs azotemia vs infectious process -Awake and tracking and following commands this morning -CT head and MRI brain noted with no acute abnormality -Neurology consulted, appreciated recommendations -c/f seizure, continue Keppra -PRN Haldol for agitation -Fall and safety precaution -Aspiration precaution -Frequent reorientation -Avoid benzodiazepine to reduce the possibility of delirium -Maintenance of sleep-wake cycle -PT/OT/Speech ordered -Psychiatry consulted: Patient Celexa increased #Hypertension -continue home BP medications -PRN Hydralazine and Labetalol for SBP greater than 160 #Elevated D-Dimer #H/o DVT -BLE doppler showed no evidence for acute DVT in either lower extremity. 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 -Per patient's mother, patient has been off coumadin for a couple of years -Continue Heparin SubQ -low suspicion for PE, will order V/Q scan if return of fever, dyspnea -Patient might benefit from PO AC at discharge, wild defer to PCP #Hypothyroidism -continue synthroid #Dysphagia-improving -Patient failed initial speech eval due to mental status -continue TF for now, Nutrition following #GI/ DVT Prophylaxis -PPI- Pepcid -heparin SubQ -SCDs to bilateral lower extremities while in bed #Discharge planning -continue with diet per Speech Therapy recommendations; patient will need to demonstrate adequate swallowing or will need PEG tube placement before discharge -Plan to discharge patient to rehab History Interval history: Patient glucose improved with resumption of tube feeds. Patient currently alert and oriented. She complains of sore throat and has no other complaints at this time. Hospitalist Physical - Physical exam Narrative exam: GENERAL: Well-developed well-nourished. In no acute distress. HEENT: NG tube intact. CHEST/LUNGS: CTAB on room air HEART/CARDIOVASCULAR: RRR. No murmur, rubs or gallops appreciated. ABDOMEN: +BS. NT/ND. NEURO: No focal motor deficit. Follows all commands. EXTREMITIES: Right upper extremity aVF. No cyanosis, clubbing or edema. PSYCH: Poor insight. - Constitutional Vitals: Temp Pulse Resp BP Pulse Ox 98 F 72 16 131/62 97 09/04/21 04:00 09/04/21 04:00 09/04/21 04:00 09/04/21 04:00 09/04/21 04:00 General appearance: Present: no acute distress, well-nourished, other (Does not respond, nonverbal, randomly moves) Results - Labs CBC & Chem 7: 08/30/21 05:12 08/30/21 05:12 Labs: Laboratory Last Values WBC 10.9 K/mm3 (4.5-11.0) 08/30/21 05:12 RBC 4.23 M/mm3 (3.65-5.03) 08/30/21 05:12 Hgb 11.5 gm/dl (10.1-14.3) 08/30/21 05:12 Hct 35.8 % (30.3-42.9) 08/30/21 05:12 MCV 85 fl (79-97) 08/30/21 05:12 MCH 27 pg (28-32) L 08/30/21 05:12 MCHC 32 % (30-34) 08/30/21 05:12 RDW 20.2 % (13.2-15.2) H 08/30/21 05:12 Plt Count 195 K/mm3 (140-440) 08/30/21 05:12 Lymph % (Auto) 24.9 % (13.4-35.0) 08/30/21 05:12 Desha % (Auto) 12.7 % (0.0-7.3) H 08/30/21 05:12 Eos % (Auto) 3.4 % (0.0-4.3) 08/30/21 05:12 Baso % (Auto) 1.4 % (0.0-1.8) 08/30/21 05:12 Lymph # (Auto) 2.7 K/mm3 (1.2-5.4) 08/30/21 05:12 Desha # (Auto) 1.4 K/mm3 (0.0-0.8) H 08/30/21 05:12 Eos # (Auto) 0.4 K/mm3 (0.0-0.4) 08/30/21 05:12 Baso # (Auto) 0.2 K/mm3 (0.0-0.1) H 08/30/21 05:12 Seg Neutrophils % 57.6 % (40.0-70.0) 08/30/21 05:12 Seg Neutrophils # 6.3 K/mm3 (1.8-7.7) 08/30/21 05:12 PT 14.0 Sec. (12.2-14.9) 08/23/21 22:59 INR 0.97 (0.87-1.13) 08/23/21 22:59 APTT 27.9 Sec. (24.2-36.6) 08/23/21 22:59 D-Dimer 2695.37 ng/mlDDU (0-234) H 08/17/21 14:40 Sodium 138 mmol/L (137-145) 08/30/21 05:12 Potassium 4.2 mmol/L (3.6-5.0) 08/30/21 05:12 Chloride 97.5 mmol/L (98-107) L 08/30/21 05:12 Carbon Dioxide 26 mmol/L (22-30) 08/30/21 05:12 Anion Gap 19 mmol/L 08/30/21 05:12 BUN 58 mg/dL (7-17) H 08/30/21 05:12 Creatinine 6.9 mg/dL (0.6-1.2) H 08/30/21 05:12 Estimated GFR 8 ml/min 08/30/21 05:12 BUN/Creatinine Ratio 8 % 08/30/21 05:12 Glucose 112 mg/dL (65-100) H 08/30/21 05:12 POC Glucose 116 mg/dL (70-105) H 09/04/21 06:01 Hemoglobin A1c 10.2 % (4-6) H 08/18/21 04:56 Lactic Acid 1.70 mmol/L (0.7-2.0) 08/17/21 02:07 Calcium 10.8 mg/dL (8.4-10.2) H 08/30/21 05:12 Phosphorus 6.00 mg/dL (2.5-4.5) H 08/30/21 05:12 Magnesium 2.80 mg/dL (1.7-2.3) H 08/30/21 05:12 Total Bilirubin 0.30 mg/dL (0.1-1.2) 08/30/21 05:12 AST 32 units/L (5-40) 08/30/21 05:12 ALT 8 units/L (7-56) 08/30/21 05:12 Alkaline Phosphatase 147 units/L (35-129) H 08/30/21 05:12 NT-Pro-B Natriuret Pep 10692 pg/mL (0-450) H 08/17/21 02:07 Total Protein 7.6 g/dL (6.3-8.2) 08/30/21 05:12 Albumin 3.9 g/dL (3.9-5) 08/30/21 05:12 Albumin/Globulin Ratio 1.1 % 08/30/21 05:12 Triglycerides 128 mg/dL (2-149) 08/17/21 14:40 Cholesterol 128 mg/dL (50-199) 08/17/21 14:40 LDL Cholesterol Direct 69 mg/dL (50-130) 08/17/21 14:40 HDL Cholesterol 30 mg/dL (40-59) L 08/17/21 14:40 Cholesterol/HDL Ratio 4.26 % 08/17/21 14:40 TSH 5.080 mlU/mL (0.270-4.200) H 08/17/21 02:07 Salicylates < 0.3 mg/dL (2.8-20.0) L 08/17/21 02:07 Acetaminophen 5.0 ug/mL (10.0-30.0) L 08/17/21 02:07 Plasma/Serum Alcohol < 0.01 % (0-0.07) 08/17/21 02:07 Coronavirus (PCR) Negative (Negative) 09/01/21 09:52 SARS-CoV-2 (PCR) Negative (Negative) 08/17/21 09:12 Hepatitis A IgM Ab Non-reactive (NonReactive) 08/17/21 14:40 Hep Bs Antigen Non-reactive (Negative) 08/17/21 14:40 Hep B Core IgM Ab Non-reactive (NonReactive) 08/17/21 14:40 Hepatitis C Antibody Non-reactive (NonReactive) 08/17/21 14:40 Blood Type O POSITIVE 08/17/21 17:43 Antibody Screen Negative 08/17/21 17:43 Tomas/IV: Voiding Method External Female Catheter Active Medications - Current Medications Current Medications: Generic Name Dose Route Start Last Admin Trade Name Freq PRN Reason Stop Dose Admin Acetaminophen 650 mg 08/17/21 07:50 08/30/21 20:25 Acetaminophen 325 Mg Tab PO 650 mg Q6H PRN Administration Pain, Mild (1-3) Acetaminophen 650 mg 08/17/21 08:17 08/17/21 14:49 Acetaminophen 650 Mg Rect Supp GA 650 mg Q4H PRN Administration Pain, Mild (1-3) Albuterol 2.5 mg 08/29/21 20:00 Albuterol 2.5 Mg/3 Ml Nebu IH Q4HRT PRN Shortness Of Breath Amlodipine Besylate 10 mg 08/22/21 11:00 09/03/21 09:47 Amlodipine 10 Mg Tab PO 10 mg QDAY [facility] Administration Lipase/Protease/Amylase 1 each 08/26/21 16:00 Lipase 10,500/Protease 25,000/Amylase 43,750 (Units) Dr Lopez FEEDTUBE PRN PRN For Clogged Feeding Tube Aspirin 325 mg 08/22/21 10:00 09/03/21 09:32 Aspirin 325 Mg Tab FEEDTUBE 325 mg QDAY [facility] Administration Atorvastatin Calcium 40 mg 08/29/21 22:00 09/03/21 22:05 Atorvastatin 40 Mg Tab PO 40 mg QHS [facility] Administration Citalopram Hydrobromide 40 mg 09/04/21 10:00 Citalopram 20 Mg Tab PO QDAY [facility] Clonidine HCl 0.1 mg 08/29/21 20:00 09/03/21 20:33 Clonidine 0.1 Mg Tab PO 0.1 mg TID [facility] Administration Dextrose 50 ml 08/17/21 23:37 Dextrose 50% In Water (25gm) 50 Ml Syringe IV Q30MIN PRN Hypoglycemia Protocol Duloxetine HCl 30 mg 08/21/21 10:00 08/23/21 17:08 Duloxetine 30 Mg Cap PO Not Given QDAY [facility] Famotidine 20 mg 08/20/21 10:00 09/03/21 09:32 Famotidine 20 Mg Tab FEEDTUBE 20 mg QDAY [facility] Administration Haloperidol Lactate 5 mg 08/19/21 12:00 09/01/21 11:41 Haloperidol Lactate 5 Mg/1 Ml Inj IV 5 mg Q6H PRN Administration Agitation Heparin Sodium (Porcine) 5,000 unit 08/17/21 06:00 09/04/21 05:37 Heparin 5,000 Unit/1 Ml Vial SUB-Q 5,000 unit Q8HR [facility] Administration Heparin Sodium (Porcine) 3,000 unit 08/17/21 07:41 08/31/21 10:38 Heparin 10,000 Units/10 Ml Vial IV 3,000 unit KATI PRN Administration hemodialysis Hydralazine HCl 100 mg 08/17/21 09:00 09/03/21 20:33 Hydralazine 100 Mg Tab PO 100 mg TID [facility] Administration Hydralazine HCl 10 mg 08/17/21 07:56 08/25/21 05:19 Hydralazine 20 Mg/1 Ml Inj IV 10 mg Q4HR PRN Administration Hypertension Hydromorphone HCl 0.25 mg 08/17/21 07:50 09/04/21 03:45 Hydromorphone 0.5 Mg/0.5 Ml Inj IV 0.25 mg Q4H PRN Administration Pain, Moderate (4-6) Hydroxyzine Pamoate 25 mg 09/03/21 14:50 Hydroxyzine Pamoate 25 Mg Cap PO Q6H PRN Anxiety Sodium Chloride 100 mls @ 999 mls/hr 08/30/21 12:00 Nacl 0.9% IV KATI PRN Hypotension Insulin Glargine 22 units 09/02/21 10:00 09/04/21 00:10 Insulin Glargine 100 Units/Ml SUB-Q Not Given BID [facility] Insulin Human Lispro 0 unit 08/18/21 00:00 09/04/21 06:15 Insulin Lispro 100 Unit/Ml SUB-Q Not Given Q6HR [facility] Protocol Levetiracetam 500 mg 08/20/21 10:00 09/03/21 09:32 Levetiracetam 500 Mg Tab PO 500 mg DAILY [facility] Administration Levothyroxine Sodium 125 mcg 08/22/21 06:00 09/04/21 05:37 Levothyroxine 125 Mcg Tab PO 125 mcg QAM@0600 [facility] Administration Losartan Potassium 50 mg 08/17/21 10:00 09/03/21 09:32 Losartan 50 Mg Tab PO 50 mg QDAY [facility] Administration Magnesium Hydroxide 30 ml 08/17/21 04:09 08/23/21 23:56 Magnesium Hydroxide (Mom) Oral Liqd Udc PO 30 ml Q4H PRN Administration Constipation Metoprolol Tartrate 100 mg 08/20/21 11:00 09/03/21 22:05 Metoprolol Tartrate 100 Mg Tab PO 100 mg BID [facility] Administration Ondansetron HCl 4 mg 08/17/21 04:09 Ondansetron 4 Mg/2 Ml Inj IV Q8H PRN Nausea And Vomiting Simple Syrup 15 ml 08/26/21 16:00 09/04/21 00:20 Simple Syrup 15 Ml FEEDTUBE 15 ml PRN PRN Administration Hypoglycemia Simple Syrup 30 ml 08/26/21 16:00 Simple Syrup 15 Ml FEEDTUBE PRN PRN Hypoglycemia Sodium Bicarbonate 325 mg 08/26/21 16:00 Sodium Bicarbonate 325 Mg Tab FEEDTUBE PRN PRN For Clogged Feeding Tube Sodium Chloride 10 ml 08/17/21 10:00 09/03/21 22:06 Sodium Chloride 0.9% 10 Ml Flush Syringe IV 10 ml BID [facility] Administration Sodium Chloride 10 ml 08/17/21 04:09 08/19/21 02:59 Sodium Chloride 0.9% 10 Ml Flush Syringe IV 10 ml PRN PRN Administration LINE FLUSH Nutrition/Malnutrition Assess - Dietary Evaluation Nutrition/Malnutrition Findings: Nutrition Notes Start: 08/17/21 12:51 Freq: Status: Active Protocol: Document 08/29/21 15:07 LOLY (Rec: 08/29/21 15:14 LOLY [id number]) Nutrition Notes Initial or Follow up Reassessment Current Diagnosis CKD (stage V CKD),Diabetes, Hypertension,Stroke Other Pertinent Diagnosis RUE AV graft thrombosis, Dysphagia Current Diet TF - Nepro at 40ml/hr Labs/Tests Cr 9.8 POC Glu: 223, 174 Pertinent Medications Reviewed Height 5 ft 8 in Weight 76.3 kg [place] Body Weight (kg) 63.63 BMI 25.5 Weight change and time frame Wt change noted Weight Status Overweight Subjective/Other Information Per RN, pt tolerating TF at goal rate. Percent of energy/protein needs met: 98% energy 85% pro Burn Absent Trauma Absent #1 Nutrition Diagnosis Inadequate oral intake Diagnosis Progress(for reassessment Continues documentation) Is patient on ventilator? No Is Patient Ambulatory and/or Out of Bed No REE-([facility]-confined to bed) [phone] Calculation Used for Recommendations [facility] Additional Notes Pro needs >1.2g/kg:>92g/day Fluid needs 1-1.5L/day Nutrition Intervention Nutrition Support: Continue Nepro at 40ml/hr with 135ml water flush q4h. Kcal 1,728 Protein (gm) 78 Carbohydrates (gm) 155 Fat (gm) 92 Fluid (mL) 698 Fiber (gm) 12 Goal #1 TF tolerance Goal #2 TF to meet at least 75% energy and pro needs Follow-Up By: 09/05/21 Additional Comments F/U: stable TF, wt
[2021-09-04] MEDS: hydrALAZINE 100 MG TAB PO SCH ×3 (08:12→22:49)
[2021-09-04] MEDS: cloNIDine 0.1 MG TAB PO SCH ×3 (08:12→22:50)
[2021-09-04] MEDS ORDERED: PHENOL 1.4% 177 ML BOTTLE MM PRN (09:54)
[2021-09-04] MEDS: levETIRAcetam 500 MG TAB PO SCH (10:08)
[2021-09-04] MEDS: CITALOPRAM 20 MG TAB PO SCH (10:08)
[2021-09-04] MEDS: LOSARTAN 50 MG TAB PO SCH (10:08)
[2021-09-04] MEDS: ASPIRIN 325 MG TAB FEEDTUBE SCH (10:08)
[2021-09-04] MEDS: amLODIPine 10 MG TAB PO SCH (10:09)
[2021-09-04] MEDS: FAMOTIDINE 20 MG TAB FEEDTUBE SCH (10:09)
[2021-09-04] MEDS: METOPROLOL TARTRATE 100 MG TAB PO SCH ×2 (10:09→22:50)
[2021-09-04 12:39] LABS: Calcium 10.4 mg/dL (8.4-10.2)
--- NOTE | 2021-09-04 12:51 | Progress Note ---
Assessment and Plan 1. ESRD: Patient is on maintenance HD, MWF schedule. Last outpatient HD 08/12/21. Meds dosage based on GFR. Hemodialysis: 08/17, 08/19, 08/22, 08/24, 08/26, 08/28, 08/31, 09/02. 2. FEN: Metabolic acidosis, improved, monitor. UF with HD as tolerated. Monitor lytes and volume status. 3. Diabetic Hyperosmolar State, POA: S/p Insulin gtt. Per protocol. 4. Malfunctioning hemodialysis access: Patient presented with non functioning hemodialysis access. S/p angioplasty of R arm AVG. Seen by Vascular. 5. Acute Metabolic Encephalopathy, POA: 2/[address] head and MRI brain negative. MS is better. Seen by Neuro. 6. SIRS versus sepsis: S/p Abx. 7. HTN: Adjust meds as needed. Monitor BP. Subjective: Patient was not examined today. However the examination findings from other providers noted. The current and previous medical records are reviewed in detail as are laboratory and imaging data reviewed when appropriate. Medications being given are also reviewed. In addition the case has been discussed with the attending hospitalist and the nurse when needed. New renal recommendations as above. Subjective Date of service: 09/04/21 Principal diagnosis: Possible Sepsis; DKA; AMS; h/o CVA left hemiparesis; ESRD on Dialysis; HTN Objective - Vital Signs Vital signs: Vital Signs - 12hr 09/04/21 09/04/21 09/04/21 04:00 07:37 10:00 Temperature 98 F 98.6 F Pulse Rate 72 76 Pulse Rate [ 74 Right Radial] Respiratory 16 18 16 Rate Blood Pressure 131/62 121/64 [Right] O2 Sat by Pulse 97 96 95 Oximetry - Lab 09/08/21 05:31 09/08/21 05:31 Most recent lab results Calcium 10.4 mg/dL (8.4-10.2) H 09/04/21 10:04 Phosphorus 6.00 mg/dL (2.5-4.5) H 08/30/21 05:12 Magnesium 2.80 mg/dL (1.7-2.3) H 08/30/21 05:12 Medications & Allergies - Medications Allergies/Adverse Reactions: Allergies vancomycin Adverse Reaction (Verified 04/02/13 10:16) Hives Home Medications: Home Medications Medication Instructions Recorded Confirmed Last Taken Type Hydralazine HCl [hydrALAZINE] 100 mg PO BID 04/02/13 08/17/21 04/02/13 08:00 History Aspirin/Dipyridamole [Aggrenox] 1 cap PO BID #60 capsule 04/10/13 08/17/21 Unknown Rx Cinacalcet [Sensipar] 60 mg PO QDAY 08/17/21 08/17/21 Unknown History Citalopram [celeXA] 20 mg PO QDAY 08/17/21 08/17/21 Unknown History Gabapentin [Neurontin] 100 mg PO Q8HR 08/17/21 08/17/21 Unknown History Insulin Glargine,Hum.rec.anlog 55 unit SQ BID 08/17/21 08/17/21 Unknown History [Lantus Solostar] Promethazine [Phenergan] 25 mg PO Q6HR PRN 08/17/21 08/17/21 Unknown History Sevelamer Carbonate [Renvela] 800 mg PO TIDWM 08/17/21 08/17/21 Unknown History amLODIPine [Norvasc] 10 mg PO DAILY 08/17/21 08/17/21 Unknown History carvediloL [Coreg] 25 mg PO BID 08/17/21 08/17/21 Unknown History Albuterol Mdi (or & Nicu Only) 2 puff IH QID PRN 08/29/21 08/29/21 Unknown History [ProAir HFA Inhaler] AtorvaSTATin [Lipitor] 40 mg PO QHS 08/29/21 08/29/21 Unknown History Cetirizine HCl [Zyrtec 10mg tab] 10 mg PO QDAY 08/29/21 08/29/21 Unknown History Ferric Citrate (Nf) [Auryxia] 210 mg PO TID 08/29/21 08/29/21 Unknown History Fluticasone [Flonase] 2 spray NS QDAY PRN 08/29/21 08/29/21 Unknown History Furosemide [Lasix TAB] 40 mg PO QDAY 08/29/21 08/29/21 Unknown History Insulin Aspart (Nf) [NovoLOG 15 units SQ TIDAC 08/29/21 08/29/21 Unknown History Flexpen] Metoclopramide [Reglan] 10 mg PO HS 08/29/21 08/29/21 Unknown History Pantoprazole [Protonix] 40 mg PO QDAY 08/29/21 08/29/21 Unknown History Prochlorperazine Maleate 10 mg PO QDAY PRN 08/29/21 08/29/21 Unknown History [Compazine] Sucroferric Oxyhydroxide(Nf) 500 mg PO TIDWM 08/29/21 08/29/21 Unknown History [Velphoro (Nf)] cloNIDine [Catapres] 0.1 mg PO TID 08/29/21 08/29/21 Unknown History Active Medications: Generic Name Dose Route Start Last Admin Trade Name Freq PRN Reason Stop Dose Admin Acetaminophen 650 mg 08/17/21 07:50 08/30/21 20:25 Acetaminophen 325 Mg Tab PO 650 mg Q6H PRN Administration Pain, Mild (1-3) Acetaminophen 650 mg 08/17/21 08:17 08/17/21 14:49 Acetaminophen 650 Mg Rect Supp [place] 650 mg Q4H PRN Administration Pain, Mild (1-3) Albuterol 2.5 mg 08/29/21 20:00 Albuterol 2.5 Mg/3 Ml Nebu IH Q4HRT PRN Shortness Of Breath Amlodipine Besylate 10 mg 08/22/21 11:00 09/04/21 10:09 Amlodipine 10 Mg Tab PO 10 mg QDAY HAM Administration Lipase/Protease/Amylase 1 each 08/26/21 16:00 Lipase 10,500/Protease 25,000/Amylase 43,750 (Units) Dr John ZARAGOZATNIKOLAY PRN PRN For Clogged Feeding Tube Aspirin 325 mg 08/22/21 10:00 09/04/21 10:08 Aspirin 325 Mg Tab FEEDTUBE 325 mg QDAY HAM Administration Atorvastatin Calcium 40 mg 08/29/21 22:00 09/03/21 22:05 Atorvastatin 40 Mg Tab PO 40 mg QHS HAM Administration Citalopram Hydrobromide 40 mg 09/04/21 10:00 09/04/21 10:08 Citalopram 20 Mg Tab PO 40 mg QDAY HAM Administration Clonidine HCl 0.1 mg 08/29/21 20:00 09/04/21 08:12 Clonidine 0.1 Mg Tab PO 0.1 mg TID HAM Administration Dextrose 50 ml 08/17/21 23:37 Dextrose 50% In Water (25gm) 50 Ml Syringe IV Q30MIN PRN Hypoglycemia Protocol Duloxetine HCl 30 mg 08/21/21 10:00 08/23/21 17:08 Duloxetine 30 Mg Cap PO Not Given QDAY HAM Famotidine 20 mg 08/20/21 10:00 09/04/21 10:09 Famotidine 20 Mg Tab FEEDTUBE 20 mg QDAY HAM Administration Haloperidol Lactate 5 mg 08/19/21 12:00 09/01/21 11:41 Haloperidol Lactate 5 Mg/1 Ml Inj IV 5 mg Q6H PRN Administration Agitation Heparin Sodium (Porcine) 5,000 unit 08/17/21 06:00 09/04/21 05:37 Heparin 5,000 Unit/1 Ml Vial SUB-Q 5,000 unit Q8HR HAM Administration Heparin Sodium (Porcine) 3,000 unit 08/17/21 07:41 08/31/21 10:38 Heparin 10,000 Units/10 Ml Vial IV 3,000 unit KATI PRN Administration hemodialysis Hydralazine HCl 100 mg 08/17/21 09:00 09/04/21 08:12 Hydralazine 100 Mg Tab PO 100 mg TID HAM Administration Hydralazine HCl 10 mg 08/17/21 07:56 08/25/21 05:19 Hydralazine 20 Mg/1 Ml Inj IV 10 mg Q4HR PRN Administration Hypertension Hydromorphone HCl 0.25 mg 08/17/21 07:50 09/04/21 03:45 Hydromorphone 0.5 Mg/0.5 Ml Inj IV 0.25 mg Q4H PRN Administration Pain, Moderate (4-6) Hydroxyzine Pamoate 25 mg 09/03/21 14:50 Hydroxyzine Pamoate 25 Mg Cap PO Q6H PRN Anxiety Sodium Chloride 100 mls @ 999 mls/hr 08/30/21 12:00 Nacl 0.9% IV KATI PRN Hypotension Insulin Glargine 22 units 09/02/21 10:00 09/04/21 10:09 Insulin Glargine 100 Units/Ml SUB-Q Not Given BID [facility] Insulin Human Lispro 0 unit 08/18/21 00:00 09/04/21 11:40 Insulin Lispro 100 Unit/Ml SUB-Q Not Given Q6HR [facility] Protocol Levetiracetam 500 mg 08/20/21 10:00 09/04/21 10:08 Levetiracetam 500 Mg Tab PO 500 mg DAILY HAM Administration Levothyroxine Sodium 125 mcg 08/22/21 06:00 09/04/21 05:37 Levothyroxine 125 Mcg Tab PO 125 mcg QAM@0600 HAM Administration Losartan Potassium 50 mg 08/17/21 10:00 09/04/21 10:08 Losartan 50 Mg Tab PO 50 mg QDAY HAM Administration Magnesium Hydroxide 30 ml 08/17/21 04:09 08/23/21 23:56 Magnesium Hydroxide (Mom) Oral Liqd Udc PO 30 ml Q4H PRN Administration Constipation Metoprolol Tartrate 100 mg 08/20/21 11:00 09/04/21 10:09 Metoprolol Tartrate 100 Mg Tab PO 100 mg BID HAM Administration Ondansetron HCl 4 mg 08/17/21 04:09 Ondansetron 4 Mg/2 Ml Inj IV Q8H PRN Nausea And Vomiting Phenol 1 spray 09/04/21 09:54 Phenol 1.4% 177 Ml Bottle MM PRN PRN Sore Throat Simple Syrup 15 ml 08/26/21 16:00 09/04/21 00:20 Simple Syrup 15 Ml FEEDTUBE 15 ml PRN PRN Administration Hypoglycemia Simple Syrup 30 ml 08/26/21 16:00 Simple Syrup 15 Ml FEEDTUBE PRN PRN Hypoglycemia Sodium Bicarbonate 325 mg 08/26/21 16:00 Sodium Bicarbonate 325 Mg Tab FEEDTUBE PRN PRN For Clogged Feeding Tube Sodium Chloride 10 ml 08/17/21 10:00 09/04/21 10:10 Sodium Chloride 0.9% 10 Ml Flush Syringe IV 10 ml BID HAM Administration Sodium Chloride 10 ml 08/17/21 04:09 08/19/21 02:59 Sodium Chloride 0.9% 10 Ml Flush Syringe IV 10 ml PRN PRN Administration LINE FLUSH
--- NOTE | 2021-09-04 13:43 | Progress Note ---
Subjective - Reason for Consult Consult date: 09/04/21 Reason for consult: Mental health evaluation - Chief Complaint Chief complaint: The patient was seen today. She continues to endorses anxiety rates as 10/10. She reports doing well with the increased Celexa 40 mg. She denies any current suicidal/homicidal ideation and denies hallucinations. REVIEW OF SYSTEMS Constitutional: Negative for weight loss ENT: Negative for stridor Respiratory: Negative for cough or hemoptysis All other systems reviewed and are negative MENTAL STATUS EXAMINATION General Appearance and Behavior: Age appropriate, wearing appropriate clothes, cooperative, polite with questioning, good eye contact Cooperation: cooperative Psychomotor Behavior: Psychomotor normal Mood: anxious Affect and affective range: congruent with stated mood Thought Process: Goal directed Thought Content: Reality oriented Speech: Normal volume, and tone Suicidal Ideation: Denies Homicidal Ideation: Denies Hallucination: Denies Delusions: None elicited Impulse Control: Limited Insight and Judgment: Limited Memory: limited Attention:attentive Orientation: Alert and oriented Diagnoses: Unspecified anxiety disorder Hx of depression Treatment Plan Continue Celexa to 40mg po daily Continue Hydroxyzine 25mg po Q6hrs PRN for anxiety Medical: per primary Sitter: defer to primary Disposition: Do not recommend acute psychiatric inpatient treatment. Will follow for medication management. Thanks Case staffed with Dr. Osman Medications and Allergies Mental Status Exam - Vital signs Last Vital Signs Temp 98.6 F 09/04/21 07:37 Pulse 74 09/04/21 10:00 Resp 16 09/04/21 10:00 BP 121/64 09/04/21 07:37 Pulse Ox 95 09/04/21 10:00
--- NOTE | 2021-09-04 18:24 | XRay Report ---
ABDOMEN 1 VIEW(S) 09/04/2021 5:17 PM INDICATION / CLINICAL INFORMATION: VERIFY PLACEMENT. COMPARISON: None available. FINDINGS: The tip of a weighted esophagogastric tube projects over the gastric fundus. Signer Name: Quinn Alvarenga MD Signed: 09/04/2021 6:19 PM Workstation Name: [id number]
[2021-09-05] MEDS: INSULIN LISPRO 100 UNIT/ML SUB-Q SCH ×4 (01:40→17:58)
[2021-09-05 06:08] LABS: Hematocrit 32.2 % (30.3-42.9); Hemoglobin 9.9 gm/dl (10.1-14.3); Mean Corpuscular HGB Conc 31 % (30-34); Mean Corpuscular Volume 87 fl (79-97); Platelet Count 176 K/mm3 (140-440); Red Blood Count 3.73 M/mm3 (3.65-5.03)
[2021-09-05 06:36] LABS: Red Cell Distribution Width 20.4 % (13.2-15.2)
[2021-09-05] MEDS: HEPARIN 5,000 UNIT/1 ML VIAL SUB-Q SCH ×3 (06:47→22:23)
[2021-09-05] MEDS: LEVOTHYROXINE 125 MCG TAB PO SCH (06:47)
[2021-09-05] MEDS: cloNIDine 0.1 MG TAB PO SCH ×3 (08:30→20:35)
[2021-09-05] MEDS: hydrALAZINE 100 MG TAB PO SCH ×3 (08:30→20:30)
[2021-09-05] MEDS: INSULIN GLARGINE 100 UNITS/ML SUB-Q SCH ×2 (10:00→22:21)
--- NOTE | 2021-09-05 11:15 | Progress Note ---
Assessment and Plan Possible Sepsis- high grade fevers, tachycardia, acute encephalopathy, tachypnea-resolved DKA (Diabetic Ketoacidosis)-resolved Acute Metabolic Encephalopathy-resolved h/o CVA (cerebral infarction) with left-sided deficits End Stage renal Disease(ESRD) on HD HTN (Hypertension) h/o Hypothyroidism s/p thrombectomy. Treat for oral thrush Enteric nutritional support via small bowel feeding tube per primary service PT/OT, increase activity Decision re anticoagulation on discharge per primary service and vascular Continue with aspiration precautions -Continue to Titrate supplemental oxygen to keep SpO2 89-92% -Continue with aspiration precaution -Supportive HD per Renal -Continue to monitor hemodynamics closely -Monitor blood glucose, avoid hypoglycemia -VTE prophylaxis- heparin -Continue all supportive care, seizure precautions -Maintain sleep-wake cycle -Mobility per facility protocol, off loading and frequent turning to prevent pressure ulcers All other care per primary service and other consulting physicians Discharge planning per primary service CONDITION:FAIR PROGNOSIS:FAIR CODE STATUS: FULL CODE Subjective Date of service: 09/05/21 Principal diagnosis: Possible Sepsis; DKA; AMS; h/o CVA left hemiparesis; ESRD on Dialysis; HTN Interval history: Follow up: DKA; acute encephaloapthy Seen and examined. Vitals, labs, medications, chart reviewed. Discussed with nursing, no adverse overnight events. Patient is awake and alert, slow speech but is talking and appropriately answering questions. She denies any chest pain, no shortness of breath, no fevers, no chills, no nausea or vomiting. No new respiratory issues Small bowel feeding tube in nares, apparently pooling food in her mouth Seen in HD suite- she states that it hurts to swallow Objective Vital Signs - 12hr 09/05/21 09/05/21 09/05/21 04:00 05:42 05:51 Temperature 99.3 F Pulse Rate 70 69 Respiratory 18 Rate Blood Pressure 143/66 O2 Sat by Pulse Oximetry O2 Sat by Pulse Oximetry [ Bilateral] 09/05/21 09/05/21 07:26 10:26 Temperature 98.8 F 98.3 F Pulse Rate 73 69 Respiratory 18 18 Rate Blood Pressure 147/64 148/68 O2 Sat by Pulse 99 Oximetry O2 Sat by Pulse 99 Oximetry [ Bilateral] Constitutional: no acute distress, alert, other (middle aged obese female with normal respiratory effort at rest) Eyes: non-icteric ENT: oropharynx moist, oropharyngeal exudate pre (thrush), other (Small bowel feeding tube in nares) Neck: supple, no lymphadenopathy, no JVD, other (large circumference) Effort: normal Ascultation: Bilateral: clear, diminished breath sounds Percussion: Bilateral: not dull Cardiovascular: regular rate and rhythm, other (S1,S2) Gastrointestinal: normoactive bowel sounds, soft, non-tender, non-distended (protuberant), other (obese) Integumentary: normal Extremities: no cyanosis, no edema, pulses normal, no ischemia or petechiae Neurologic: normal mental status, pupils equal and round, CN II-XII normal Psychiatric: mood appropriate, affect normal CBC and BMP: 09/05/21 04:57 09/04/21 10:04 ABG, PT/INR, D-dimer: PT/INR, D-dimer PT 14.0 Sec. (12.2-14.9) 08/23/21 22:59 INR 0.97 (0.87-1.13) 08/23/21 22:59 D-Dimer 2695.37 ng/mlDDU (0-234) H 08/17/21 14:40 Abnormal lab findings: Abnormal Labs 08/17/21 08/17/21 08/17/21 00:33 00:33 02:07 WBC Hgb MCH RDW 19.7 H Lymph % (Auto) 10.5 L [place] % (Auto) Lymph # (Auto) 1.1 L [place] # (Auto) Baso # (Auto) Seg Neutrophils % 79.1 H Seg Neutrophils # 8.6 H D-Dimer Sodium 132 L 134 L Chloride 87.8 L 88.4 L Carbon Dioxide 21 L BUN 61 H 61 H Creatinine 10.1 H 10.3 H Glucose 594 H* 533 H* POC Glucose Hemoglobin A1c Calcium Phosphorus Magnesium ALT < 5 L Alkaline Phosphatase 182 H NT-Pro-B Natriuret Pep 45367 H Albumin HDL Cholesterol TSH Salicylates Acetaminophen 08/17/21 08/17/21 08/17/21 02:07 02:07 02:07 WBC Hgb MCH RDW Lymph % (Auto) [place] % (Auto) Lymph # (Auto) [place] # (Auto) Baso # (Auto) Seg Neutrophils % Seg Neutrophils # D-Dimer Sodium Chloride Carbon Dioxide BUN Creatinine Glucose POC Glucose Hemoglobin A1c Calcium Phosphorus Magnesium ALT Alkaline Phosphatase NT-Pro-B Natriuret Pep Albumin HDL Cholesterol TSH 5.080 H Salicylates < 0.3 L Acetaminophen 5.0 L 08/17/21 08/17/21 08/17/21 04:20 04:20 05:09 WBC Hgb MCH RDW Lymph % (Auto) [place] % (Auto) Lymph # (Auto) [place] # (Auto) Baso # (Auto) Seg Neutrophils % Seg Neutrophils # D-Dimer Sodium 136 L Chloride 90.9 L Carbon Dioxide BUN 61 H Creatinine 10.4 H Glucose 351 H POC Glucose 298 H Hemoglobin A1c Calcium Phosphorus 6.20 H Magnesium ALT Alkaline Phosphatase NT-Pro-B Natriuret Pep Albumin HDL Cholesterol TSH Salicylates Acetaminophen 08/17/21 08/17/21 08/17/21 09:58 10:53 13:14 WBC Hgb MCH RDW Lymph % (Auto) [place] % (Auto) Lymph # (Auto) [place] # (Auto) Baso # (Auto) Seg Neutrophils % Seg Neutrophils # D-Dimer Sodium Chloride Carbon Dioxide BUN Creatinine Glucose POC Glucose 139 H 162 H 145 H Hemoglobin A1c Calcium Phosphorus Magnesium ALT Alkaline Phosphatase NT-Pro-B Natriuret Pep Albumin HDL Cholesterol TSH Salicylates Acetaminophen 08/17/21 08/17/21 08/17/21 14:40 14:40 14:40 WBC Hgb MCH RDW Lymph % (Auto) [place] % (Auto) Lymph # (Auto) [place] # (Auto) Baso # (Auto) Seg Neutrophils % Seg Neutrophils # D-Dimer 2695.37 H Sodium Chloride 96.7 L Carbon Dioxide BUN 63 H Creatinine 10.7 H Glucose 145 H POC Glucose Hemoglobin A1c Calcium Phosphorus Magnesium ALT Alkaline Phosphatase NT-Pro-B Natriuret Pep Albumin HDL Cholesterol 30 L TSH Salicylates Acetaminophen 08/17/21 08/17/21 08/17/21 14:40 16:45 17:47 WBC Hgb MCH RDW Lymph % (Auto) [place] % (Auto) Lymph # (Auto) [place] # (Auto) Baso # (Auto) Seg Neutrophils % Seg Neutrophils # D-Dimer Sodium Chloride 96.2 L Carbon Dioxide BUN 44 H Creatinine 7.2 H Glucose 167 H POC Glucose 136 H 165 H Hemoglobin A1c Calcium Phosphorus Magnesium ALT Alkaline Phosphatase NT-Pro-B Natriuret Pep Albumin HDL Cholesterol TSH Salicylates Acetaminophen 0508/17/21 08/17/21 18:01 21:01 22:40 WBC Hgb MCH RDW Lymph % (Auto) [place] % (Auto) Lymph # (Auto) [place] # (Auto) Baso # (Auto) Seg Neutrophils % Seg Neutrophils # D-Dimer Sodium Chloride 97.1 L 96.4 L Carbon Dioxide BUN 39 H 40 H Creatinine 8.0 H 8.5 H Glucose 122 H 109 H POC Glucose 172 H Hemoglobin A1c Calcium Phosphorus Magnesium ALT Alkaline Phosphatase NT-Pro-B Natriuret Pep Albumin HDL Cholesterol TSH Salicylates Acetaminophen 08/17/21 08/18/21 08/18/21 22:40 02:13 04:56 WBC Hgb MCH 27 L RDW 19.7 H Lymph % (Auto) [place] % (Auto) Lymph # (Auto) [place] # (Auto) Baso # (Auto) Seg Neutrophils % Seg Neutrophils # D-Dimer Sodium Chloride 96.8 L Carbon Dioxide BUN 44 H Creatinine 9.3 H Glucose 170 H POC Glucose 190 H Hemoglobin A1c Calcium Phosphorus 6.70 H Magnesium ALT Alkaline Phosphatase NT-Pro-B Natriuret Pep Albumin HDL Cholesterol TSH Salicylates Acetaminophen 08/18/21 08/18/21 08/18/21 04:56 04:56 17:01 WBC Hgb MCH 27 L RDW 19.7 H Lymph % (Auto) [place] % (Auto) 9.7 H Lymph # (Auto) [place] # (Auto) Baso # (Auto) Seg Neutrophils % Seg Neutrophils # D-Dimer Sodium Chloride Carbon Dioxide BUN Creatinine Glucose POC Glucose 228 H Hemoglobin A1c 10.2 H Calcium Phosphorus Magnesium ALT Alkaline Phosphatase NT-Pro-B Natriuret Pep Albumin HDL Cholesterol TSH Salicylates Acetaminophen 08/18/21 08/19/21 08/19/21 23:58 04:37 04:37 WBC Hgb MCH 27 L RDW 19.5 H Lymph % (Auto) [place] % (Auto) Lymph # (Auto) [place] # (Auto) Baso # (Auto) Seg Neutrophils % Seg Neutrophils # D-Dimer Sodium Chloride 96.7 L Carbon Dioxide 21 L BUN 57 H Creatinine 10.2 H Glucose 151 H POC Glucose 192 H Hemoglobin A1c Calcium Phosphorus Magnesium ALT Alkaline Phosphatase NT-Pro-B Natriuret Pep Albumin HDL Cholesterol TSH Salicylates Acetaminophen 08/19/21 08/19/21 08/20/21 17:46 22:59 04:24 WBC Hgb MCH RDW Lymph % (Auto) [place] % (Auto) Lymph # (Auto) [place] # (Auto) Baso # (Auto) Seg Neutrophils % Seg Neutrophils # D-Dimer Sodium 133 L Chloride 87.9 L Carbon Dioxide 15 L BUN 33 H Creatinine 7.3 H Glucose 365 H POC Glucose 217 H 282 H Hemoglobin A1c Calcium Phosphorus 6.50 H Magnesium ALT Alkaline Phosphatase NT-Pro-B Natriuret Pep Albumin HDL Cholesterol TSH Salicylates Acetaminophen 08/20/21 08/20/21 08/20/21 06:07 07:51 15:37 WBC Hgb MCH RDW Lymph % (Auto) [place] % (Auto) Lymph # (Auto) [place] # (Auto) Baso # (Auto) Seg Neutrophils % Seg Neutrophils # D-Dimer Sodium Chloride Carbon Dioxide BUN Creatinine Glucose POC Glucose 398 H 308 H 247 H Hemoglobin A1c Calcium Phosphorus Magnesium ALT Alkaline Phosphatase NT-Pro-B Natriuret Pep Albumin HDL Cholesterol TSH Salicylates Acetaminophen 08/20/21 08/21/21 08/21/21 23:22 04:45 05:07 WBC Hgb MCH RDW Lymph % (Auto) [place] % (Auto) Lymph # (Auto) [place] # (Auto) Baso # (Auto) Seg Neutrophils % Seg Neutrophils # D-Dimer Sodium 134 L Chloride 92.9 L Carbon Dioxide BUN 48 H Creatinine 8.0 H Glucose 389 H POC Glucose 316 H 407 H Hemoglobin A1c Calcium 10.6 H Phosphorus Magnesium ALT Alkaline Phosphatase NT-Pro-B Natriuret Pep Albumin HDL Cholesterol TSH Salicylates Acetaminophen 08/21/21 08/21/21 08/21/21 11:37 15:52 23:44 WBC Hgb MCH RDW Lymph % (Auto) [place] % (Auto) Lymph # (Auto) [place] # (Auto) Baso # (Auto) Seg Neutrophils % Seg Neutrophils # D-Dimer Sodium Chloride Carbon Dioxide BUN Creatinine Glucose POC Glucose 244 H 325 H 221 H Hemoglobin A1c Calcium Phosphorus Magnesium ALT Alkaline Phosphatase NT-Pro-B Natriuret Pep Albumin HDL Cholesterol TSH Salicylates Acetaminophen 08/22/21 08/22/21 08/23/21 06:06 12:27 00:37 WBC Hgb MCH RDW Lymph % (Auto) [place] % (Auto) Lymph # (Auto) [place] # (Auto) Baso # (Auto) Seg Neutrophils % Seg Neutrophils # D-Dimer Sodium Chloride Carbon Dioxide BUN Creatinine Glucose POC Glucose 224 H 247 H 341 H Hemoglobin A1c Calcium Phosphorus Magnesium ALT Alkaline Phosphatase NT-Pro-B Natriuret Pep Albumin HDL Cholesterol TSH Salicylates Acetaminophen 08/23/21 08/23/21 08/23/21 04:20 05:37 11:56 WBC Hgb MCH RDW Lymph % (Auto) [place] % (Auto) Lymph # (Auto) [place] # (Auto) Baso # (Auto) Seg Neutrophils % Seg Neutrophils # D-Dimer Sodium Chloride 94.4 L Carbon Dioxide BUN 49 H Creatinine 7.7 H Glucose 201 H POC Glucose 210 H 162 H Hemoglobin A1c Calcium 10.9 H Phosphorus Magnesium ALT Alkaline Phosphatase NT-Pro-B Natriuret Pep Albumin HDL Cholesterol TSH Salicylates Acetaminophen 08/23/21 08/23/21 08/23/21 17:45 22:58 22:59 WBC 12.2 H Hgb MCH 26 L RDW 20.3 H Lymph % (Auto) [place] % (Auto) Lymph # (Auto) [place] # (Auto) Baso # (Auto) Seg Neutrophils % Seg Neutrophils # D-Dimer Sodium Chloride Carbon Dioxide BUN Creatinine Glucose POC Glucose 211 H 218 H Hemoglobin A1c Calcium Phosphorus Magnesium ALT Alkaline Phosphatase NT-Pro-B Natriuret Pep Albumin HDL Cholesterol TSH Salicylates Acetaminophen 08/23/21 08/24/21 08/24/21 22:59 04:23 04:23 WBC 15.4 H Hgb MCH 27 L RDW 19.8 H Lymph % (Auto) [place] % (Auto) 13.0 H Lymph # (Auto) [place] # (Auto) 2.0 H Baso # (Auto) 0.2 H Seg Neutrophils % Seg Neutrophils # 9.8 H D-Dimer Sodium 136 L Chloride 93.0 L Carbon Dioxide BUN 73 H Creatinine 8.7 H 9.2 H Glucose 145 H POC Glucose Hemoglobin A1c Calcium 10.7 H Phosphorus 6.30 H Magnesium 2.70 H ALT 6 L Alkaline Phosphatase 157 H NT-Pro-B Natriuret Pep Albumin 3.7 L HDL Cholesterol TSH Salicylates Acetaminophen 08/24/21 08/24/21 08/24/21 05:09 11:20 18:28 WBC Hgb MCH RDW Lymph % (Auto) [place] % (Auto) Lymph # (Auto) [place] # (Auto) Baso # (Auto) Seg Neutrophils % Seg Neutrophils # D-Dimer Sodium Chloride Carbon Dioxide BUN Creatinine Glucose POC Glucose 155 H 110 H 182 H Hemoglobin A1c Calcium Phosphorus Magnesium ALT Alkaline Phosphatase NT-Pro-B Natriuret Pep Albumin HDL Cholesterol TSH Salicylates Acetaminophen 08/25/21 08/25/21 08/25/21 00:15 04:44 11:28 WBC 11.3 H Hgb MCH 27 L RDW 20.4 H Lymph % (Auto) [place] % (Auto) Lymph # (Auto) [place] # (Auto) Baso # (Auto) Seg Neutrophils % Seg Neutrophils # D-Dimer Sodium Chloride Carbon Dioxide BUN Creatinine Glucose POC Glucose 247 H 189 H Hemoglobin A1c Calcium Phosphorus Magnesium ALT Alkaline Phosphatase NT-Pro-B Natriuret Pep Albumin HDL Cholesterol TSH Salicylates Acetaminophen 08/25/21 08/25/21 08/26/21 16:42 23:29 05:22 WBC Hgb MCH RDW Lymph % (Auto) [place] % (Auto) Lymph # (Auto) [place] # (Auto) Baso # (Auto) Seg Neutrophils % Seg Neutrophils # D-Dimer Sodium Chloride Carbon Dioxide BUN Creatinine 10.0 H Glucose POC Glucose 169 H 213 H Hemoglobin A1c Calcium Phosphorus Magnesium ALT Alkaline Phosphatase NT-Pro-B Natriuret Pep Albumin HDL Cholesterol TSH Salicylates Acetaminophen 08/26/21 08/26/21 08/26/21 06:12 11:47 23:33 WBC Hgb MCH RDW Lymph % (Auto) [place] % (Auto) Lymph # (Auto) [place] # (Auto) Baso # (Auto) Seg Neutrophils % Seg Neutrophils # D-Dimer Sodium Chloride Carbon Dioxide BUN Creatinine Glucose POC Glucose 191 H 197 H 197 H Hemoglobin A1c Calcium Phosphorus Magnesium ALT Alkaline Phosphatase NT-Pro-B Natriuret Pep Albumin HDL Cholesterol TSH Salicylates Acetaminophen 08/27/21 08/27/21 08/27/21 06:02 06:02 06:17 WBC Hgb MCH 27 L RDW 20.1 H Lymph % (Auto) [place] % (Auto) 14.2 H Lymph # (Auto) [place] # (Auto) 1.4 H Baso # (Auto) Seg Neutrophils % Seg Neutrophils # D-Dimer Sodium 134 L Chloride 93.8 L Carbon Dioxide BUN 56 H Creatinine 6.4 H Glucose 253 H POC Glucose 250 H Hemoglobin A1c Calcium Phosphorus 6.00 H Magnesium 2.50 H ALT < 5 L Alkaline Phosphatase 135 H NT-Pro-B Natriuret Pep Albumin 3.6 L HDL Cholesterol TSH Salicylates Acetaminophen 08/27/21 08/27/21 08/27/21 11:21 16:05 23:13 WBC Hgb MCH RDW Lymph % (Auto) [place] % (Auto) Lymph # (Auto) [place] # (Auto) Baso # (Auto) Seg Neutrophils % Seg Neutrophils # D-Dimer Sodium Chloride Carbon Dioxide BUN Creatinine Glucose POC Glucose 287 H 321 H 286 H Hemoglobin A1c Calcium Phosphorus Magnesium ALT Alkaline Phosphatase NT-Pro-B Natriuret Pep Albumin HDL Cholesterol TSH Salicylates Acetaminophen 08/28/21 08/28/21 08/28/21 05:11 05:29 11:30 WBC Hgb MCH RDW Lymph % (Auto) [place] % (Auto) Lymph # (Auto) [place] # (Auto) Baso # (Auto) Seg Neutrophils % Seg Neutrophils # D-Dimer Sodium 134 L Chloride 91.8 L Carbon Dioxide BUN 79 H Creatinine 8.2 H Glucose 230 H POC Glucose 225 H 190 H Hemoglobin A1c Calcium 10.8 H Phosphorus Magnesium ALT Alkaline Phosphatase NT-Pro-B Natriuret Pep Albumin HDL Cholesterol TSH Salicylates Acetaminophen 08/28/21 08/29/21 08/29/21 15:53 00:04 04:29 WBC Hgb MCH 27 L RDW 20.6 H Lymph % (Auto) [place] % (Auto) Lymph # (Auto) [place] # (Auto) Baso # (Auto) Seg Neutrophils % Seg Neutrophils # D-Dimer Sodium Chloride Carbon Dioxide BUN Creatinine Glucose POC Glucose 235 H 223 H Hemoglobin A1c Calcium Phosphorus Magnesium ALT Alkaline Phosphatase NT-Pro-B Natriuret Pep Albumin HDL Cholesterol TSH Salicylates Acetaminophen 08/29/21 08/29/21 08/29/21 04:29 05:37 16:14 WBC Hgb MCH RDW Lymph % (Auto) [place] % (Auto) Lymph # (Auto) [place] # (Auto) Baso # (Auto) Seg Neutrophils % Seg Neutrophils # D-Dimer Sodium Chloride Carbon Dioxide BUN Creatinine 9.8 H Glucose POC Glucose 174 H 200 H Hemoglobin A1c Calcium Phosphorus Magnesium ALT Alkaline Phosphatase NT-Pro-B Natriuret Pep Albumin HDL Cholesterol TSH Salicylates Acetaminophen 08/30/21 08/30/21 08/30/21 00:10 05:12 05:12 WBC Hgb MCH 27 L RDW 20.2 H Lymph % (Auto) [place] % (Auto) 12.7 H Lymph # (Auto) [place] # (Auto) 1.4 H Baso # (Auto) 0.2 H Seg Neutrophils % Seg Neutrophils # D-Dimer Sodium Chloride 97.5 L Carbon Dioxide BUN 58 H Creatinine 6.9 H Glucose 112 H POC Glucose 111 H Hemoglobin A1c Calcium 10.8 H Phosphorus 6.00 H Magnesium 2.80 H ALT Alkaline Phosphatase 147 H NT-Pro-B Natriuret Pep Albumin HDL Cholesterol TSH Salicylates Acetaminophen 08/30/21 08/31/21 08/31/21 16:40 00:27 04:30 WBC Hgb MCH RDW Lymph % (Auto) [place] % (Auto) Lymph # (Auto) [place] # (Auto) Baso # (Auto) Seg Neutrophils % Seg Neutrophils # D-Dimer Sodium Chloride Carbon Dioxide BUN Creatinine Glucose POC Glucose 224 H 200 H 125 H Hemoglobin A1c Calcium Phosphorus Magnesium ALT Alkaline Phosphatase NT-Pro-B Natriuret Pep Albumin HDL Cholesterol TSH Salicylates Acetaminophen 09/02/21 09/02/21 09/03/21 06:04 18:25 00:55 WBC Hgb MCH RDW Lymph % (Auto) [place] % (Auto) Lymph # (Auto) [place] # (Auto) Baso # (Auto) Seg Neutrophils % Seg Neutrophils # D-Dimer Sodium Chloride Carbon Dioxide BUN Creatinine Glucose POC Glucose 68 L 134 H 110 H Hemoglobin A1c Calcium Phosphorus Magnesium ALT Alkaline Phosphatase NT-Pro-B Natriuret Pep Albumin HDL Cholesterol TSH Salicylates Acetaminophen 09/03/21 09/03/21 09/04/21 05:53 16:10 00:11 WBC Hgb MCH RDW Lymph % (Auto) [place] % (Auto) Lymph # (Auto) [place] # (Auto) Baso # (Auto) Seg Neutrophils % Seg Neutrophils # D-Dimer Sodium Chloride Carbon Dioxide BUN Creatinine Glucose POC Glucose 64 L 60 L 69 L Hemoglobin A1c Calcium Phosphorus Magnesium ALT Alkaline Phosphatase NT-Pro-B Natriuret Pep Albumin HDL Cholesterol TSH Salicylates Acetaminophen 09/04/21 09/04/21 09/04/21 06:01 07:29 10:04 WBC Hgb MCH RDW Lymph % (Auto) [place] % (Auto) Lymph # (Auto) [place] # (Auto) Baso # (Auto) Seg Neutrophils % Seg Neutrophils # D-Dimer Sodium Chloride 96.1 L Carbon Dioxide BUN 48 H Creatinine 7.8 H Glucose 102 H POC Glucose 116 H 119 H Hemoglobin A1c Calcium 10.4 H Phosphorus Magnesium ALT Alkaline Phosphatase NT-Pro-B Natriuret Pep Albumin HDL Cholesterol TSH Salicylates Acetaminophen 09/04/21 09/04/21 09/05/21 10:59 16:24 00:36 WBC Hgb MCH RDW Lymph % (Auto) [place] % (Auto) Lymph # (Auto) [place] # (Auto) Baso # (Auto) Seg Neutrophils % Seg Neutrophils # D-Dimer Sodium Chloride Carbon Dioxide BUN Creatinine Glucose POC Glucose 137 H 149 H 139 H Hemoglobin A1c Calcium Phosphorus Magnesium ALT Alkaline Phosphatase NT-Pro-B Natriuret Pep Albumin HDL Cholesterol TSH Salicylates Acetaminophen 09/05/21 09/05/21 04:57 06:43 WBC 11.6 H Hgb 9.9 L MCH 27 L RDW 20.4 H Lymph % (Auto) [place] % (Auto) Lymph # (Auto) [place] # (Auto) Baso # (Auto) Seg Neutrophils % Seg Neutrophils # D-Dimer Sodium Chloride Carbon Dioxide BUN Creatinine Glucose POC Glucose 149 H Hemoglobin A1c Calcium Phosphorus Magnesium ALT Alkaline Phosphatase NT-Pro-B Natriuret Pep Albumin HDL Cholesterol TSH Salicylates Acetaminophen Allied health notes reviewed: nursing
--- NOTE | 2021-09-05 11:46 | Progress Note ---
Assessment and Plan Assessment and plan: #Right upper extremity AV graft thrombosis #End Stage Renal Disease requiring hemodialysis -s/p AVF declotting 08/26 via IR/Vascular surgery -s/p vascular surgery/ thrombectomy of right arm AV loop graft. -temporary vasc cath removed 08/26 -continue HD per Nephro -avoid nephrotoxic medications; Renally dose medications #DKA (Diabetic Ketoacidosis)-resolved #Type II diabetes, insulin dependent -s/p insulin gtt -Patient with hypoglycemia secondary to reduced oral intake; continue tube feeds -Hgb A1C 10.2% -continue lantus 22U BID, continue SSI -goal glucose 140-180 while inpatient; currently controlled #Sepsis ruled out -patient afebrile, WBC normalizing -Blood cultures with NGTD x 5days -s/p IV abx, none needed due to no infectious process found -ID consulted, signed off #Acute Metabolic Encephalopathy-improving #H/o CVA (cerebral infarction) with left-sided deficits -Multifactorial, DKA vs azotemia vs infectious process -Awake and tracking and following commands this morning -CT head and MRI brain noted with no acute abnormality -Neurology consulted, appreciated recommendations -c/f seizure, continue Keppra -PRN Haldol for agitation -Fall and safety precaution -Aspiration precaution -Frequent reorientation -Avoid benzodiazepine to reduce the possibility of delirium -Maintenance of sleep-wake cycle -PT/OT/Speech ordered -Psychiatry consulted: Patient Celexa increased #Hypertension -continue home BP medications -PRN Hydralazine and Labetalol for SBP greater than 160 #Elevated D-Dimer #H/o DVT -BLE doppler showed no evidence for acute DVT in either lower extremity. 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 -Per patient's mother, patient has been off coumadin for a couple of years -Continue Heparin SubQ -low suspicion for PE, will order V/Q scan if return of fever, dyspnea -Patient might benefit from PO AC at discharge, wild defer to PCP #Hypothyroidism -continue synthroid #Dysphagia-improving -Patient failed initial speech eval due to mental status -continue TF for now, Nutrition following #GI/ DVT Prophylaxis -PPI- Pepcid -heparin SubQ -SCDs to bilateral lower extremities while in bed #Discharge planning -continue with diet per Speech Therapy recommendations; patient will need to demonstrate adequate swallowing or will need PEG tube placement before discharge -Plan to discharge patient to rehab History Interval history: No acute events overnight. Patient seen during hemodialysis. She has no complaints at this time. Hospitalist Physical - Physical exam Narrative exam: GENERAL: Well-developed well-nourished. In no acute distress. HEENT: NG tube intact. CHEST/LUNGS: CTAB on room air HEART/CARDIOVASCULAR: RRR. No murmur, rubs or gallops appreciated. ABDOMEN: +BS. NT/ND. NEURO: No focal motor deficit. Follows all commands. EXTREMITIES: Right upper extremity aVF. No cyanosis, clubbing or edema. PSYCH: Poor insight. - Constitutional Vitals: Temp Pulse Resp BP Pulse Ox 98.3 F 69 18 148/68 99 09/05/21 10:26 09/05/21 10:26 09/05/21 10:26 09/05/21 10:26 09/05/21 10:26 General appearance: Present: no acute distress, well-nourished, other (Does not respond, nonverbal, randomly moves) Results - Labs CBC & Chem 7: 09/05/21 04:57 09/04/21 10:04 Labs: Laboratory Last Values WBC 11.6 K/mm3 (4.5-11.0) H 09/05/21 04:57 RBC 3.73 M/mm3 (3.65-5.03) 09/05/21 04:57 Hgb 9.9 gm/dl (10.1-14.3) L 09/05/21 04:57 Hct 32.2 % (30.3-42.9) 09/05/21 04:57 MCV 87 fl (79-97) 09/05/21 04:57 MCH 27 pg (28-32) L 09/05/21 04:57 MCHC 31 % (30-34) 09/05/21 04:57 RDW 20.4 % (13.2-15.2) H 09/05/21 04:57 Plt Count 176 K/mm3 (140-440) 09/05/21 04:57 Lymph % (Auto) 24.9 % (13.4-35.0) 08/30/21 05:12 Bennett % (Auto) 12.7 % (0.0-7.3) H 08/30/21 05:12 Eos % (Auto) 3.4 % (0.0-4.3) 08/30/21 05:12 Baso % (Auto) 1.4 % (0.0-1.8) 08/30/21 05:12 Lymph # (Auto) 2.7 K/mm3 (1.2-5.4) 08/30/21 05:12 Bennett # (Auto) 1.4 K/mm3 (0.0-0.8) H 08/30/21 05:12 Eos # (Auto) 0.4 K/mm3 (0.0-0.4) 08/30/21 05:12 Baso # (Auto) 0.2 K/mm3 (0.0-0.1) H 08/30/21 05:12 Seg Neutrophils % 57.6 % (40.0-70.0) 08/30/21 05:12 Seg Neutrophils # 6.3 K/mm3 (1.8-7.7) 08/30/21 05:12 PT 14.0 Sec. (12.2-14.9) 08/23/21 22:59 INR 0.97 (0.87-1.13) 08/23/21 22:59 APTT 27.9 Sec. (24.2-36.6) 08/23/21 22:59 D-Dimer 2695.37 ng/mlDDU (0-234) H 08/17/21 14:40 Sodium 137 mmol/L (137-145) 09/04/21 10:04 Potassium 4.3 mmol/L (3.6-5.0) 09/04/21 10:04 Chloride 96.1 mmol/L (98-107) L 09/04/21 10:04 Carbon Dioxide 24 mmol/L (22-30) 09/04/21 10:04 Anion Gap 21 mmol/L 09/04/21 10:04 BUN 48 mg/dL (7-17) H 09/04/21 10:04 Creatinine 7.8 mg/dL (0.6-1.2) H 09/04/21 10:04 Estimated GFR 7 ml/min 09/04/21 10:04 BUN/Creatinine Ratio 6 % 09/04/21 10:04 Glucose 102 mg/dL (65-100) H 09/04/21 10:04 POC Glucose 149 mg/dL (70-105) H 09/05/21 06:43 Hemoglobin A1c 10.2 % (4-6) H 08/18/21 04:56 Lactic Acid 1.70 mmol/L (0.7-2.0) 08/17/21 02:07 Calcium 10.4 mg/dL (8.4-10.2) H 09/04/21 10:04 Phosphorus 6.00 mg/dL (2.5-4.5) H 08/30/21 05:12 Magnesium 2.80 mg/dL (1.7-2.3) H 08/30/21 05:12 Total Bilirubin 0.30 mg/dL (0.1-1.2) 08/30/21 05:12 AST 32 units/L (5-40) 08/30/21 05:12 ALT 8 units/L (7-56) 08/30/21 05:12 Alkaline Phosphatase 147 units/L (35-129) H 08/30/21 05:12 NT-Pro-B Natriuret Pep 92383 pg/mL (0-450) H 08/17/21 02:07 Total Protein 7.6 g/dL (6.3-8.2) 08/30/21 05:12 Albumin 3.9 g/dL (3.9-5) 08/30/21 05:12 Albumin/Globulin Ratio 1.1 % 08/30/21 05:12 Triglycerides 128 mg/dL (2-149) 08/17/21 14:40 Cholesterol 128 mg/dL (50-199) 08/17/21 14:40 LDL Cholesterol Direct 69 mg/dL (50-130) 08/17/21 14:40 HDL Cholesterol 30 mg/dL (40-59) L 08/17/21 14:40 Cholesterol/HDL Ratio 4.26 % 08/17/21 14:40 TSH 5.080 mlU/mL (0.270-4.200) H 08/17/21 02:07 Salicylates < 0.3 mg/dL (2.8-20.0) L 08/17/21 02:07 Acetaminophen 5.0 ug/mL (10.0-30.0) L 08/17/21 02:07 Plasma/Serum Alcohol < 0.01 % (0-0.07) 08/17/21 02:07 Coronavirus (PCR) Negative (Negative) 09/01/21 09:52 SARS-CoV-2 (PCR) Negative (Negative) 08/17/21 09:12 Hepatitis A IgM Ab Non-reactive (NonReactive) 08/17/21 14:40 Hep Bs Antigen Non-reactive (Negative) 08/17/21 14:40 Hep B Core IgM Ab Non-reactive (NonReactive) 08/17/21 14:40 Hepatitis C Antibody Non-reactive (NonReactive) 08/17/21 14:40 Blood Type O POSITIVE 08/17/21 17:43 Antibody Screen Negative 08/17/21 17:43 Tomas/IV: Voiding Method External Female Catheter Active Medications - Current Medications Current Medications: Generic Name Dose Route Start Last Admin Trade Name Freq PRN Reason Stop Dose Admin Acetaminophen 650 mg 08/17/21 07:50 08/30/21 20:25 Acetaminophen 325 Mg Tab PO 650 mg Q6H PRN Administration Pain, Mild (1-3) Acetaminophen 650 mg 08/17/21 08:17 08/17/21 14:49 Acetaminophen 650 Mg Rect Supp [place] 650 mg Q4H PRN Administration Pain, Mild (1-3) Albuterol 2.5 mg 08/29/21 20:00 Albuterol 2.5 Mg/3 Ml Nebu IH Q4HRT PRN Shortness Of Breath Amlodipine Besylate 10 mg 08/22/21 11:00 09/04/21 10:09 Amlodipine 10 Mg Tab PO 10 mg QDAY HAM Administration Lipase/Protease/Amylase 1 each 08/26/21 16:00 Lipase 10,500/Protease 25,000/Amylase 43,750 (Units) Dr Lopez FEEDTUBE PRN PRN For Clogged Feeding Tube Aspirin 325 mg 08/22/21 10:00 09/04/21 10:08 Aspirin 325 Mg Tab FEEDTUBE 325 mg QDAY HAM Administration Atorvastatin Calcium 40 mg 08/29/21 22:00 09/04/21 22:51 Atorvastatin 40 Mg Tab PO 40 mg QHS HAM Administration Citalopram Hydrobromide 40 mg 09/04/21 10:00 09/04/21 10:08 Citalopram 20 Mg Tab PO 40 mg QDAY HAM Administration Clonidine HCl 0.1 mg 08/29/21 20:00 09/04/21 22:50 Clonidine 0.1 Mg Tab PO 0.1 mg TID HAM Administration Dextrose 50 ml 08/17/21 23:37 Dextrose 50% In Water (25gm) 50 Ml Syringe IV Q30MIN PRN Hypoglycemia Protocol Duloxetine HCl 30 mg 08/21/21 10:00 08/23/21 17:08 Duloxetine 30 Mg Cap PO Not Given QDAY HAM Famotidine 20 mg 08/20/21 10:00 09/04/21 10:09 Famotidine 20 Mg Tab FEEDTUBE 20 mg QDAY HAM Administration Haloperidol Lactate 5 mg 08/19/21 12:00 09/01/21 11:41 Haloperidol Lactate 5 Mg/1 Ml Inj IV 5 mg Q6H PRN Administration Agitation Heparin Sodium (Porcine) 5,000 unit 08/17/21 06:00 09/05/21 06:47 Heparin 5,000 Unit/1 Ml Vial SUB-Q 5,000 unit Q8HR HAM Administration Heparin Sodium (Porcine) 3,000 unit 08/17/21 07:41 08/31/21 10:38 Heparin 10,000 Units/10 Ml Vial IV 3,000 unit KATI PRN Administration hemodialysis Hydralazine HCl 100 mg 08/17/21 09:00 09/04/21 22:49 Hydralazine 100 Mg Tab PO 100 mg TID HAM Administration Hydralazine HCl 10 mg 08/17/21 07:56 08/25/21 05:19 Hydralazine 20 Mg/1 Ml Inj IV 10 mg Q4HR PRN Administration Hypertension Hydromorphone HCl 0.25 mg 08/17/21 07:50 09/04/21 22:56 Hydromorphone 0.5 Mg/0.5 Ml Inj IV 0.25 mg Q4H PRN Administration Pain, Moderate (4-6) Hydroxyzine Pamoate 25 mg 09/03/21 14:50 Hydroxyzine Pamoate 25 Mg Cap PO Q6H PRN Anxiety Sodium Chloride 100 mls @ 999 mls/hr 08/30/21 12:00 Nacl 0.9% IV KATI PRN Hypotension Insulin Glargine 22 units 09/02/21 10:00 09/04/21 22:52 Insulin Glargine 100 Units/Ml SUB-Q 22 units BID HAM Administration Insulin Human Lispro 0 unit 08/18/21 00:00 09/05/21 06:44 Insulin Lispro 100 Unit/Ml SUB-Q Not Given Q6HR [facility] Protocol Levetiracetam 500 mg 08/20/21 10:00 09/04/21 10:08 Levetiracetam 500 Mg Tab PO 500 mg DAILY HAM Administration Levothyroxine Sodium 125 mcg 08/22/21 06:00 09/05/21 06:47 Levothyroxine 125 Mcg Tab PO 125 mcg QAM@0600 HAM Administration Losartan Potassium 50 mg 08/17/21 10:00 09/04/21 10:08 Losartan 50 Mg Tab PO 50 mg QDAY HAM Administration Magnesium Hydroxide 30 ml 08/17/21 04:09 08/23/21 23:56 Magnesium Hydroxide (Mom) Oral Liqd Udc PO 30 ml Q4H PRN Administration Constipation Metoprolol Tartrate 100 mg 08/20/21 11:00 09/04/21 22:50 Metoprolol Tartrate 100 Mg Tab PO 100 mg BID HAM Administration Ondansetron HCl 4 mg 08/17/21 04:09 Ondansetron 4 Mg/2 Ml Inj IV Q8H PRN Nausea And Vomiting Phenol 1 spray 09/04/21 09:54 Phenol 1.4% 177 Ml Bottle MM PRN PRN Sore Throat Simple Syrup 15 ml 08/26/21 16:00 09/04/21 00:20 Simple Syrup 15 Ml FEEDTUBE 15 ml PRN PRN Administration Hypoglycemia Simple Syrup 30 ml 08/26/21 16:00 Simple Syrup 15 Ml FEEDTUBE PRN PRN Hypoglycemia Sodium Bicarbonate 325 mg 08/26/21 16:00 Sodium Bicarbonate 325 Mg Tab FEEDTUBE PRN PRN For Clogged Feeding Tube Sodium Chloride 10 ml 08/17/21 10:00 09/04/21 22:52 Sodium Chloride 0.9% 10 Ml Flush Syringe IV 10 ml BID HAM Administration Sodium Chloride 10 ml 08/17/21 04:09 08/19/21 02:59 Sodium Chloride 0.9% 10 Ml Flush Syringe IV 10 ml PRN PRN Administration LINE FLUSH Zolpidem Tartrate 5 mg 09/05/21 22:00 Zolpidem 5 Mg Tab PO QHS PRN Sleep Nutrition/Malnutrition Assess - Dietary Evaluation Nutrition/Malnutrition Findings: Nutrition Notes Start: 08/17/21 12:51 Freq: Status: Active Protocol: Document 08/29/21 15:07 LOLY (Rec: 08/29/21 15:14 [email or web address] [id number]) Nutrition Notes Initial or Follow up Reassessment Current Diagnosis CKD (stage V CKD),Diabetes, Hypertension,Stroke Other Pertinent Diagnosis RUE AV graft thrombosis, Dysphagia Current Diet TF - Nepro at 40ml/hr Labs/Tests Cr 9.8 POC Glu: 223, 174 Pertinent Medications Reviewed Height 5 ft 8 in Weight 76.3 kg [place] Body Weight (kg) 63.63 BMI 25.5 Weight change and time frame Wt change noted Weight Status Overweight Subjective/Other Information Per RN, pt tolerating TF at goal rate. Percent of energy/protein needs met: 98% energy 85% pro Burn Absent Trauma Absent #1 Nutrition Diagnosis Inadequate oral intake Diagnosis Progress(for reassessment Continues documentation) Is patient on ventilator? No Is Patient Ambulatory and/or Out of Bed No REE-([place]-confined to bed) 1763.016 Calculation Used for Recommendations [facility] Additional Notes Pro needs >1.2g/kg:>92g/day Fluid needs 1-1.5L/day Nutrition Intervention Nutrition Support: Continue Nepro at 40ml/hr with 135ml water flush q4h. Kcal 1,728 Protein (gm) 78 Carbohydrates (gm) 155 Fat (gm) 92 Fluid (mL) 698 Fiber (gm) 12 Goal #1 TF tolerance Goal #2 TF to meet at least 75% energy and pro needs Follow-Up By: 09/05/21 Additional Comments F/U: stable TF, wt
--- NOTE | 2021-09-05 12:42 | Progress Note ---
Assessment and Plan ESRD - Seen & stable on HD HTN - F/u on meds Lytes - F/u labs HD Access - S/p thrombectomy Rt arm AVF & stable Subjective Date of service: 09/05/21 Principal diagnosis: Possible Sepsis; DKA; AMS; h/o CVA left hemiparesis; ESRD on Dialysis; HTN Interval history: No complaint Objective - Vital Signs Vital signs: Vital Signs - 12hr 09/05/21 09/05/21 09/05/21 04:00 05:42 05:51 Temperature 99.3 F Pulse Rate 70 69 Respiratory 18 Rate Blood Pressure 143/66 O2 Sat by Pulse Oximetry O2 Sat by Pulse Oximetry [ Bilateral] 09/05/21 09/05/21 09/05/21 07:26 10:00 10:26 Temperature 98.8 F 98.3 F Pulse Rate 73 69 Respiratory 18 18 Rate Blood Pressure 147/64 148/68 O2 Sat by Pulse 99 97 Oximetry O2 Sat by Pulse 99 Oximetry [ Bilateral] 09/05/21 12:00 Temperature Pulse Rate 69 Respiratory Rate Blood Pressure O2 Sat by Pulse Oximetry O2 Sat by Pulse Oximetry [ Bilateral] - General Appearance General appearance: other (Awake & responsive) EENT: PERRL, hearing intact Neck: no JVD, supple Respiratory: Present: Other (Good air entry) Cardiology: regular, S1S2 Gastrointestinal: other (Soft) Neurologic: alert and oriented x3 - Lab 09/05/21 04:57 09/04/21 10:04 Most recent lab results Calcium 10.4 mg/dL (8.4-10.2) H 09/04/21 10:04 Phosphorus 6.00 mg/dL (2.5-4.5) H 08/30/21 05:12 Magnesium 2.80 mg/dL (1.7-2.3) H 08/30/21 05:12 Medications & Allergies - Medications Allergies/Adverse Reactions: Allergies vancomycin Adverse Reaction (Verified 04/02/13 10:16) Hives Home Medications: Home Medications Medication Instructions Recorded Confirmed Last Taken Type Hydralazine HCl [hydrALAZINE] 100 mg PO BID 04/02/13 08/17/21 04/02/13 08:00 History Aspirin/Dipyridamole [Aggrenox] 1 cap PO BID #60 capsule 04/10/13 08/17/21 Unknown Rx Cinacalcet [Sensipar] 60 mg PO QDAY 08/17/21 08/17/21 Unknown History Citalopram [celeXA] 20 mg PO QDAY 08/17/21 08/17/21 Unknown History Gabapentin [Neurontin] 100 mg PO Q8HR 08/17/21 08/17/21 Unknown History Insulin Glargine,Hum.rec.anlog 55 unit SQ BID 08/17/21 08/17/21 Unknown History [Lantus Solostar] Promethazine [Phenergan] 25 mg PO Q6HR PRN 08/17/21 08/17/21 Unknown History Sevelamer Carbonate [Renvela] 800 mg PO TIDWM 08/17/21 08/17/21 Unknown History amLODIPine [Norvasc] 10 mg PO DAILY 08/17/21 08/17/21 Unknown History carvediloL [Coreg] 25 mg PO BID 08/17/21 08/17/21 Unknown History Albuterol Mdi (or & Nicu Only) 2 puff IH QID PRN 08/29/21 08/29/21 Unknown History [ProAir HFA Inhaler] AtorvaSTATin [Lipitor] 40 mg PO QHS 08/29/21 08/29/21 Unknown History Cetirizine HCl [Zyrtec 10mg tab] 10 mg PO QDAY 08/29/21 08/29/21 Unknown History Ferric Citrate (Nf) [Auryxia] 210 mg PO TID 08/29/21 08/29/21 Unknown History Fluticasone [Flonase] 2 spray NS QDAY PRN 08/29/21 08/29/21 Unknown History Furosemide [Lasix TAB] 40 mg PO QDAY 08/29/21 08/29/21 Unknown History Insulin Aspart (Nf) [NovoLOG 15 units SQ TIDAC 08/29/21 08/29/21 Unknown History Flexpen] Metoclopramide [Reglan] 10 mg PO HS 08/29/21 08/29/21 Unknown History Pantoprazole [Protonix] 40 mg PO QDAY 08/29/21 08/29/21 Unknown History Prochlorperazine Maleate 10 mg PO QDAY PRN 08/29/21 08/29/21 Unknown History [Compazine] Sucroferric Oxyhydroxide(Nf) 500 mg PO TIDWM 08/29/21 08/29/21 Unknown History [Velphoro (Nf)] cloNIDine [Catapres] 0.1 mg PO TID 08/29/21 08/29/21 Unknown History Active Medications: Generic Name Dose Route Start Last Admin Trade Name Freq PRN Reason Stop Dose Admin Acetaminophen 650 mg 08/17/21 07:50 08/30/21 20:25 Acetaminophen 325 Mg Tab PO 650 mg Q6H PRN Administration Pain, Mild (1-3) Acetaminophen 650 mg 08/17/21 08:17 08/17/21 14:49 Acetaminophen 650 Mg Rect Supp [place] 650 mg Q4H PRN Administration Pain, Mild (1-3) Albuterol 2.5 mg 08/29/21 20:00 Albuterol 2.5 Mg/3 Ml Nebu IH Q4HRT PRN Shortness Of Breath Amlodipine Besylate 10 mg 08/22/21 11:00 09/04/21 10:09 Amlodipine 10 Mg Tab PO 10 mg QDAY HAM Administration Lipase/Protease/Amylase 1 each 08/26/21 16:00 Lipase 10,500/Protease 25,000/Amylase 43,750 (Units) Dr Lopez FEEDTUBE PRN PRN For Clogged Feeding Tube Aspirin 325 mg 08/22/21 10:00 09/04/21 10:08 Aspirin 325 Mg Tab FEEDTUBE 325 mg QDAY HAM Administration Atorvastatin Calcium 40 mg 08/29/21 22:00 09/04/21 22:51 Atorvastatin 40 Mg Tab PO 40 mg QHS HAM Administration Citalopram Hydrobromide 40 mg 09/04/21 10:00 09/04/21 10:08 Citalopram 20 Mg Tab PO 40 mg QDAY HAM Administration Clonidine HCl 0.1 mg 08/29/21 20:00 09/05/21 08:30 Clonidine 0.1 Mg Tab PO Not Given TID HAM Dextrose 50 ml 08/17/21 23:37 Dextrose 50% In Water (25gm) 50 Ml Syringe IV Q30MIN PRN Hypoglycemia Protocol Famotidine 20 mg 08/20/21 10:00 09/04/21 10:09 Famotidine 20 Mg Tab FEEDTUBE 20 mg QDAY HAM Administration Fluconazole 100 mg 09/05/21 14:00 Fluconazole 100 Mg/10 Ml Oral Syringe FEEDTUBE 09/10/21 14:01 Q24H [facility] Protocol Haloperidol Lactate 5 mg 08/19/21 12:00 09/01/21 11:41 Haloperidol Lactate 5 Mg/1 Ml Inj IV 5 mg Q6H PRN Administration Agitation Heparin Sodium (Porcine) 5,000 unit 08/17/21 06:00 09/05/21 06:47 Heparin 5,000 Unit/1 Ml Vial SUB-Q 5,000 unit Q8HR HAM Administration Heparin Sodium (Porcine) 3,000 unit 08/17/21 07:41 08/31/21 10:38 Heparin 10,000 Units/10 Ml Vial IV 3,000 unit KATI PRN Administration hemodialysis Hydralazine HCl 100 mg 08/17/21 09:00 09/05/21 08:30 Hydralazine 100 Mg Tab PO Not Given TID [facility] Hydralazine HCl 10 mg 08/17/21 07:56 08/25/21 05:19 Hydralazine 20 Mg/1 Ml Inj IV 10 mg Q4HR PRN Administration Hypertension Hydromorphone HCl 0.25 mg 08/17/21 07:50 09/04/21 22:56 Hydromorphone 0.5 Mg/0.5 Ml Inj IV 0.25 mg Q4H PRN Administration Pain, Moderate (4-6) Hydroxyzine Pamoate 25 mg 09/03/21 14:50 Hydroxyzine Pamoate 25 Mg Cap PO Q6H PRN Anxiety Sodium Chloride 100 mls @ 999 mls/hr 08/30/21 12:00 Nacl 0.9% IV KATI PRN Hypotension Insulin Glargine 22 units 09/02/21 10:00 09/05/21 10:00 Insulin Glargine 100 Units/Ml SUB-Q Not Given BID [facility] Insulin Human Lispro 0 unit 08/18/21 00:00 09/05/21 12:17 Insulin Lispro 100 Unit/Ml SUB-Q Not Given Q6HR [facility] Protocol Levetiracetam 500 mg 08/20/21 10:00 09/04/21 10:08 Levetiracetam 500 Mg Tab PO 500 mg DAILY HAM Administration Levothyroxine Sodium 125 mcg 08/22/21 06:00 09/05/21 06:47 Levothyroxine 125 Mcg Tab PO 125 mcg QAM@0600 [facility] Administration Lidocaine HCl 15 ml 09/05/21 14:00 Magic Mouthwash 30ml PO TID HMA Losartan Potassium 50 mg 08/17/21 10:00 09/04/21 10:08 Losartan 50 Mg Tab PO 50 mg QDAY [facility] Administration Magnesium Hydroxide 30 ml 08/17/21 04:09 08/23/21 23:56 Magnesium Hydroxide (Mom) Oral Liqd Udc PO 30 ml Q4H PRN Administration Constipation Metoprolol Tartrate 100 mg 08/20/21 11:00 09/04/21 22:50 Metoprolol Tartrate 100 Mg Tab PO 100 mg BID [facility] Administration Ondansetron HCl 4 mg 08/17/21 04:09 Ondansetron 4 Mg/2 Ml Inj IV Q8H PRN Nausea And Vomiting Phenol 1 spray 09/04/21 09:54 Phenol 1.4% 177 Ml Bottle MM PRN PRN Sore Throat Simple Syrup 15 ml 08/26/21 16:00 09/04/21 00:20 Simple Syrup 15 Ml FEEDTUBE 15 ml PRN PRN Administration Hypoglycemia Simple Syrup 30 ml 08/26/21 16:00 Simple Syrup 15 Ml FEEDTUBE PRN PRN Hypoglycemia Sodium Bicarbonate 325 mg 08/26/21 16:00 Sodium Bicarbonate 325 Mg Tab FEEDTUBE PRN PRN For Clogged Feeding Tube Sodium Chloride 10 ml 08/17/21 10:00 09/05/21 10:00 Sodium Chloride 0.9% 10 Ml Flush Syringe IV Not Given BID HAM Sodium Chloride 10 ml 08/17/21 04:09 08/19/21 02:59 Sodium Chloride 0.9% 10 Ml Flush Syringe IV 10 ml PRN PRN Administration LINE FLUSH Zolpidem Tartrate 5 mg 09/05/21 22:00 Zolpidem 5 Mg Tab PO QHS PRN Sleep
[2021-09-05] MEDS: LOSARTAN 50 MG TAB PO SCH (14:36)
[2021-09-05] MEDS: METOPROLOL TARTRATE 100 MG TAB PO SCH ×2 (14:36→22:22)
[2021-09-05] MEDS: ASPIRIN 325 MG TAB FEEDTUBE SCH (14:36)
[2021-09-05] MEDS: amLODIPine 10 MG TAB PO SCH (14:36)
[2021-09-05] MEDS: FAMOTIDINE 20 MG TAB FEEDTUBE SCH (14:37)
[2021-09-05] MEDS: CITALOPRAM 20 MG TAB PO SCH (14:37)
[2021-09-05] MEDS: levETIRAcetam 500 MG TAB PO SCH (14:37)
[2021-09-05] MEDS: FLUCONAZOLE 100 MG/10 ML ORAL SYRINGE FEEDTUBE SCH (14:39)
[2021-09-05] MEDS: MAGIC MOUTHWASH 30ML PO SCH ×2 (14:40→20:35)
[2021-09-05] MEDS: ZOLPIDEM 5 MG TAB PO PRN (22:22)
[2021-09-06] MEDS: INSULIN LISPRO 100 UNIT/ML SUB-Q SCH ×4 (00:33→18:13)
[2021-09-06] MEDS: HEPARIN 5,000 UNIT/1 ML VIAL SUB-Q SCH ×3 (06:22→21:22)
[2021-09-06] MEDS: LEVOTHYROXINE 125 MCG TAB PO SCH (06:22)
[2021-09-06 06:29] LABS: Basophils # (Auto) 0.1 K/mm3 (0.0-0.1); Basophils % (Auto) 0.9 % (0.0-1.8); Eosinophils # (Auto) 0.2 K/mm3 (0.0-0.4); Eosinophils % (Auto) 1.9 % (0.0-4.3); Hematocrit 35.4 % (30.3-42.9); Hemoglobin 11.4 gm/dl (10.1-14.3); Lymphocytes # (Auto) 2.1 K/mm3 (1.2-5.4); Lymphocytes % (Auto) 19.1 % (13.4-35.0); Mean Corpuscular HGB Conc 32 % (30-34); Mean Corpuscular Volume 85 fl (79-97); Monocytes % (Auto) 9.2 % (0.0-7.3); Platelet Count 177 K/mm3 (140-440); Red Blood Count 4.18 M/mm3 (3.65-5.03)
[2021-09-06 06:33] LABS: Red Cell Distribution Width 20.2 % (13.2-15.2)
[2021-09-06 06:36] LABS: Albumin 3.8 g/dL (3.9-5); Calcium 10.8 mg/dL (8.4-10.2)
[2021-09-06] MEDS: HYDROmorphone 0.5 MG/0.5 ML INJ IV PRN ×2 (06:47→14:30)
[2021-09-06] MEDS: hydrALAZINE 100 MG TAB PO SCH ×3 (10:12→20:27)
[2021-09-06] MEDS: ASPIRIN 325 MG TAB FEEDTUBE SCH (10:12)
[2021-09-06] MEDS: INSULIN GLARGINE 100 UNITS/ML SUB-Q SCH ×2 (10:12→21:22)
[2021-09-06] MEDS: cloNIDine 0.1 MG TAB PO SCH ×3 (10:12→20:27)
[2021-09-06] MEDS: levETIRAcetam 500 MG TAB PO SCH (10:12)
[2021-09-06] MEDS: FAMOTIDINE 20 MG TAB FEEDTUBE SCH (10:12)
[2021-09-06] MEDS: METOPROLOL TARTRATE 100 MG TAB PO SCH ×2 (10:12→21:23)
[2021-09-06] MEDS: amLODIPine 10 MG TAB PO SCH (10:13)
[2021-09-06] MEDS: LOSARTAN 50 MG TAB PO SCH (10:13)
[2021-09-06] MEDS: CITALOPRAM 20 MG TAB PO SCH (10:13)
[2021-09-06] MEDS ORDERED: SODIUM CHLORIDE 0.9% 100 ML IV PRN (10:52)
--- NOTE | 2021-09-06 10:52 | Progress Note ---
Assessment and Plan ESRD - HD in am HTN - F/u on meds Lytes - Low Ca bath on HD. F/u labs HD Access - S/p thrombectomy Rt arm AVF & stable Subjective Date of service: 09/06/21 Principal diagnosis: Possible Sepsis; DKA; AMS; h/o CVA left hemiparesis; ESRD on Dialysis; HTN Objective - Vital Signs Vital signs: Vital Signs - 12hr 09/06/21 09/06/21 09/06/21 00:00 00:06 06:04 Temperature 98.0 F 99.4 F Pulse Rate 86 71 71 Respiratory 18 18 Rate Blood Pressure 147/48 131/54 O2 Sat by Pulse 96 100 Oximetry - General Appearance General appearance: other (Awake & alert) EENT: PERRL, hearing intact Neck: no JVD Respiratory: Present: Other (Good air entry) Cardiology: regular, S1S2 Gastrointestinal: other (Soft) Integumentary: no rash, warm and dry Neurologic: other (Verbally responsive) Psychiatric: mood/affect appropriate - Lab 09/06/21 05:39 09/06/21 05:39 Most recent lab results Calcium 10.8 mg/dL (8.4-10.2) H 09/06/21 05:39 Phosphorus 5.30 mg/dL (2.5-4.5) H 09/06/21 05:39 Magnesium 2.50 mg/dL (1.7-2.3) H 09/06/21 05:39 Medications & Allergies - Medications Allergies/Adverse Reactions: Allergies vancomycin Adverse Reaction (Verified 04/02/13 10:16) Hives Home Medications: Home Medications Medication Instructions Recorded Confirmed Last Taken Type Hydralazine HCl [hydrALAZINE] 100 mg PO BID 04/02/13 08/17/21 04/02/13 08:00 History Aspirin/Dipyridamole [Aggrenox] 1 cap PO BID #60 capsule 04/10/13 08/17/21 Unknown Rx Cinacalcet [Sensipar] 60 mg PO QDAY 08/17/21 08/17/21 Unknown History Citalopram [celeXA] 20 mg PO QDAY 08/17/21 08/17/21 Unknown History Gabapentin [Neurontin] 100 mg PO Q8HR 08/17/21 08/17/21 Unknown History Insulin Glargine,Hum.rec.anlog 55 unit SQ BID 08/17/21 08/17/21 Unknown History [Lantus Solostar] Promethazine [Phenergan] 25 mg PO Q6HR PRN 08/17/21 08/17/21 Unknown History Sevelamer Carbonate [Renvela] 800 mg PO TIDWM 08/17/21 08/17/21 Unknown History amLODIPine [Norvasc] 10 mg PO DAILY 08/17/21 08/17/21 Unknown History carvediloL [Coreg] 25 mg PO BID 08/17/21 08/17/21 Unknown History Albuterol Mdi (or & Nicu Only) 2 puff IH QID PRN 08/29/21 08/29/21 Unknown History [ProAir HFA Inhaler] AtorvaSTATin [Lipitor] 40 mg PO QHS 08/29/21 08/29/21 Unknown History Cetirizine HCl [Zyrtec 10mg tab] 10 mg PO QDAY 08/29/21 08/29/21 Unknown History Ferric Citrate (Nf) [Auryxia] 210 mg PO TID 08/29/21 08/29/21 Unknown History Fluticasone [Flonase] 2 spray NS QDAY PRN 08/29/21 08/29/21 Unknown History Furosemide [Lasix TAB] 40 mg PO QDAY 08/29/21 08/29/21 Unknown History Insulin Aspart (Nf) [NovoLOG 15 units SQ TIDAC 08/29/21 08/29/21 Unknown History Flexpen] Metoclopramide [Reglan] 10 mg PO HS 08/29/21 08/29/21 Unknown History Pantoprazole [Protonix] 40 mg PO QDAY 08/29/21 08/29/21 Unknown History Prochlorperazine Maleate 10 mg PO QDAY PRN 08/29/21 08/29/21 Unknown History [Compazine] Sucroferric Oxyhydroxide(Nf) 500 mg PO TIDWM 08/29/21 08/29/21 Unknown History [Velphoro (Nf)] cloNIDine [Catapres] 0.1 mg PO TID 08/29/21 08/29/21 Unknown History Active Medications: Generic Name Dose Route Start Last Admin Trade Name Freq PRN Reason Stop Dose Admin Acetaminophen 650 mg 08/17/21 07:50 08/30/21 20:25 Acetaminophen 325 Mg Tab PO 650 mg Q6H PRN Administration Pain, Mild (1-3) Acetaminophen 650 mg 08/17/21 08:17 08/17/21 14:49 Acetaminophen 650 Mg Rect Supp CO 650 mg Q4H PRN Administration Pain, Mild (1-3) Albuterol 2.5 mg 08/29/21 20:00 Albuterol 2.5 Mg/3 Ml Nebu IH Q4HRT PRN Shortness Of Breath Amlodipine Besylate 10 mg 08/22/21 11:00 09/06/21 10:13 Amlodipine 10 Mg Tab PO 10 mg QDAY HAM Administration Lipase/Protease/Amylase 1 each 08/26/21 16:00 Lipase 10,500/Protease 25,000/Amylase 43,750 (Units) Dr Lopez FEEDTUBE PRN PRN For Clogged Feeding Tube Aspirin 325 mg 08/22/21 10:00 09/06/21 10:12 Aspirin 325 Mg Tab FEEDTUBE 325 mg QDAY HAM Administration Atorvastatin Calcium 40 mg 08/29/21 22:00 09/05/21 22:22 Atorvastatin 40 Mg Tab PO 40 mg QHS HAM Administration Citalopram Hydrobromide 40 mg 09/04/21 10:00 09/06/21 10:13 Citalopram 20 Mg Tab PO 40 mg QDAY HAM Administration Clonidine HCl 0.1 mg 08/29/21 20:00 09/06/21 10:12 Clonidine 0.1 Mg Tab PO 0.1 mg TID HAM Administration Dextrose 50 ml 08/17/21 23:37 Dextrose 50% In Water (25gm) 50 Ml Syringe IV Q30MIN PRN Hypoglycemia Protocol Famotidine 20 mg 08/20/21 10:00 09/06/21 10:12 Famotidine 20 Mg Tab FEEDTUBE 20 mg QDAY HAM Administration Fluconazole 100 mg 09/05/21 14:00 09/05/21 14:39 Fluconazole 100 Mg/10 Ml Oral Syringe FEEDTUBE 09/10/21 14:01 100 mg Q24H HAM Administration Protocol Haloperidol Lactate 5 mg 08/19/21 12:00 09/01/21 11:41 Haloperidol Lactate 5 Mg/1 Ml Inj IV 5 mg Q6H PRN Administration Agitation Heparin Sodium (Porcine) 5,000 unit 08/17/21 06:00 09/06/21 06:22 Heparin 5,000 Unit/1 Ml Vial SUB-Q 5,000 unit Q8HR HAM Administration Heparin Sodium (Porcine) 3,000 unit 08/17/21 07:41 08/31/21 10:38 Heparin 10,000 Units/10 Ml Vial IV 3,000 unit KATI PRN Administration hemodialysis Hydralazine HCl 100 mg 08/17/21 09:00 09/06/21 10:12 Hydralazine 100 Mg Tab PO 100 mg TID HAM Administration Hydralazine HCl 10 mg 08/17/21 07:56 08/25/21 05:19 Hydralazine 20 Mg/1 Ml Inj IV 10 mg Q4HR PRN Administration Hypertension Hydromorphone HCl 0.25 mg 08/17/21 07:50 09/06/21 06:47 Hydromorphone 0.5 Mg/0.5 Ml Inj IV 0.25 mg Q4H PRN Administration Pain, Moderate (4-6) Hydroxyzine Pamoate 25 mg 09/03/21 14:50 Hydroxyzine Pamoate 25 Mg Cap PO Q6H PRN Anxiety Sodium Chloride 100 mls @ 999 mls/hr 08/30/21 12:00 Nacl 0.9% IV KATI PRN Hypotension Insulin Glargine 22 units 09/02/21 10:00 09/06/21 10:12 Insulin Glargine 100 Units/Ml SUB-Q 22 units BID HAM Administration Insulin Human Lispro 0 unit 08/18/21 00:00 09/06/21 07:16 Insulin Lispro 100 Unit/Ml SUB-Q 3 unit Q6HR HAM Administration Protocol Levetiracetam 500 mg 08/20/21 10:00 09/06/21 10:12 Levetiracetam 500 Mg Tab PO 500 mg DAILY HAM Administration Levothyroxine Sodium 125 mcg 08/22/21 06:00 09/06/21 06:22 Levothyroxine 125 Mcg Tab PO 125 mcg QAM@0600 HAM Administration Lidocaine HCl 15 ml 09/05/21 14:00 09/05/21 20:35 Magic Mouthwash 30ml PO 15 ml TID HAM Administration Losartan Potassium 50 mg 08/17/21 10:00 09/06/21 10:13 Losartan 50 Mg Tab PO 50 mg QDAY HAM Administration Magnesium Hydroxide 30 ml 08/17/21 04:09 08/23/21 23:56 Magnesium Hydroxide (Mom) Oral Liqd Udc PO 30 ml Q4H PRN Administration Constipation Metoprolol Tartrate 100 mg 08/20/21 11:00 09/06/21 10:12 Metoprolol Tartrate 100 Mg Tab PO 100 mg BID HAM Administration Ondansetron HCl 4 mg 08/17/21 04:09 Ondansetron 4 Mg/2 Ml Inj IV Q8H PRN Nausea And Vomiting Phenol 1 spray 09/04/21 09:54 09/06/21 10:13 Phenol 1.4% 177 Ml Bottle MM 1 spray PRN PRN Administration Sore Throat Sevelamer Carbonate 2,400 mg 09/06/21 11:30 Sevelamer Carbonate 800 Mg Tab PO AC HAM Simple Syrup 15 ml 08/26/21 16:00 09/04/21 00:20 Simple Syrup 15 Ml FEEDTUBE 15 ml PRN PRN Administration Hypoglycemia Simple Syrup 30 ml 08/26/21 16:00 Simple Syrup 15 Ml FEEDTUBE PRN PRN Hypoglycemia Sodium Bicarbonate 325 mg 08/26/21 16:00 Sodium Bicarbonate 325 Mg Tab FEEDTUBE PRN PRN For Clogged Feeding Tube Sodium Chloride 10 ml 08/17/21 10:00 09/05/21 22:23 Sodium Chloride 0.9% 10 Ml Flush Syringe IV 10 ml BID HAM Administration Sodium Chloride 10 ml 08/17/21 04:09 08/19/21 02:59 Sodium Chloride 0.9% 10 Ml Flush Syringe IV 10 ml PRN PRN Administration LINE FLUSH Zolpidem Tartrate 5 mg 09/05/21 22:00 09/05/21 22:22 Zolpidem 5 Mg Tab PO 5 mg QHS PRN Administration Sleep
[2021-09-06] MEDS: MAGIC MOUTHWASH 30ML PO SCH ×4 (12:22→20:40)
[2021-09-06] MEDS: SEVELAMER CARBONATE 800 MG TAB PO SCH ×2 (12:23→18:16)
[2021-09-06] MEDS: FLUCONAZOLE 100 MG/10 ML ORAL SYRINGE FEEDTUBE SCH (14:29)
--- NOTE | 2021-09-06 16:36 | Progress Note ---
Assessment and Plan Possible Sepsis- high grade fevers, tachycardia, acute encephalopathy, tachypnea-resolved DKA (Diabetic Ketoacidosis)-resolved Acute Metabolic Encephalopathy-resolved h/o CVA (cerebral infarction) with left-sided deficits End Stage renal Disease(ESRD) on HD HTN (Hypertension) h/o Hypothyroidism s/p thrombectomy. Enteric nutritional support via small bowel feeding tube per primary service PT/OT, increase activity Continue with aspiration precautions -Continue to Titrate supplemental oxygen to keep SpO2 89-92% -Continue with aspiration precaution -Supportive HD per Renal -Continue to monitor hemodynamics closely -Monitor blood glucose, avoid hypoglycemia -VTE prophylaxis- heparin -Continue all supportive care, seizure precautions -Maintain sleep-wake cycle -Mobility per facility protocol, off loading and frequent turning to prevent pressure ulcers All other care per primary service and other consulting physicians Discharge planning per primary service CONDITION:FAIR PROGNOSIS:FAIR CODE STATUS: FULL CODE Subjective Date of service: 09/06/21 Principal diagnosis: Possible Sepsis; DKA; AMS; h/o CVA left hemiparesis; ESRD on Dialysis; HTN Interval history: Follow up: DKA; acute encephaloapthy Seen and examined. Vitals, labs, medications, chart reviewed. Discussed with nursing, no adverse overnight events. Patient is awake and alert,appropriately answering questions. She denies any chest pain, no shortness of breath, no fevers, no chills, no nausea or vomiting. No new respiratory issues Small bowel feeding tube in nares, States her throat is feeling much better Objective Vital Signs - 12hr 09/06/21 09/06/21 06:04 10:00 Temperature 99.4 F Pulse Rate 71 Respiratory 18 18 Rate Blood Pressure 131/54 O2 Sat by Pulse 100 97 Oximetry Constitutional: no acute distress, alert, other (middle aged obese female with normal respiratory effort at rest) Eyes: non-icteric ENT: oropharynx moist, oropharyngeal exudate pre (thrush), other (Small bowel feeding tube in nares) Neck: supple, no lymphadenopathy, no JVD, other (large circumference) Effort: normal Ascultation: Bilateral: clear, diminished breath sounds Percussion: Bilateral: not dull Cardiovascular: regular rate and rhythm, other (S1,S2) Gastrointestinal: normoactive bowel sounds, soft, non-tender, non-distended (protuberant), other (obese) Integumentary: normal Extremities: no cyanosis, no edema, pulses normal, no ischemia or petechiae Neurologic: normal mental status, pupils equal and round, CN II-XII normal Psychiatric: mood appropriate, affect normal CBC and BMP: 09/06/21 05:39 09/06/21 05:39 ABG, PT/INR, D-dimer: PT/INR, D-dimer PT 14.0 Sec. (12.2-14.9) 08/23/21 22:59 INR 0.97 (0.87-1.13) 08/23/21 22:59 D-Dimer 2695.37 ng/mlDDU (0-234) H 08/17/21 14:40 Abnormal lab findings: Abnormal Labs 08/17/21 08/17/21 08/17/21 00:33 00:33 02:07 WBC Hgb MCH RDW 19.7 H Lymph % (Auto) 10.5 L Lee % (Auto) Lymph # (Auto) 1.1 L Lee # (Auto) Baso # (Auto) Seg Neutrophils % 79.1 H Seg Neutrophils # 8.6 H D-Dimer Sodium 132 L 134 L Chloride 87.8 L 88.4 L Carbon Dioxide 21 L BUN 61 H 61 H Creatinine 10.1 H 10.3 H Glucose 594 H* 533 H* POC Glucose Hemoglobin A1c Calcium Phosphorus Magnesium ALT < 5 L Alkaline Phosphatase 182 H NT-Pro-B Natriuret Pep 95798 H Total Protein Albumin HDL Cholesterol TSH Salicylates Acetaminophen 08/17/21 08/17/21 08/17/21 02:07 02:07 02:07 WBC Hgb MCH RDW Lymph % (Auto) Lee % (Auto) Lymph # (Auto) Lee # (Auto) Baso # (Auto) Seg Neutrophils % Seg Neutrophils # D-Dimer Sodium Chloride Carbon Dioxide BUN Creatinine Glucose POC Glucose Hemoglobin A1c Calcium Phosphorus Magnesium ALT Alkaline Phosphatase NT-Pro-B Natriuret Pep Total Protein Albumin HDL Cholesterol TSH 5.080 H Salicylates < 0.3 L Acetaminophen 5.0 L 08/17/21 08/17/21 08/17/21 04:20 04:20 05:09 WBC Hgb MCH RDW Lymph % (Auto) Lee % (Auto) Lymph # (Auto) Lee # (Auto) Baso # (Auto) Seg Neutrophils % Seg Neutrophils # D-Dimer Sodium 136 L Chloride 90.9 L Carbon Dioxide BUN 61 H Creatinine 10.4 H Glucose 351 H POC Glucose 298 H Hemoglobin A1c Calcium Phosphorus 6.20 H Magnesium ALT Alkaline Phosphatase NT-Pro-B Natriuret Pep Total Protein Albumin HDL Cholesterol TSH Salicylates Acetaminophen 08/17/21 08/17/21 08/17/21 09:58 10:53 13:14 WBC Hgb MCH RDW Lymph % (Auto) Lee % (Auto) Lymph # (Auto) Lee # (Auto) Baso # (Auto) Seg Neutrophils % Seg Neutrophils # D-Dimer Sodium Chloride Carbon Dioxide BUN Creatinine Glucose POC Glucose 139 H 162 H 145 H Hemoglobin A1c Calcium Phosphorus Magnesium ALT Alkaline Phosphatase NT-Pro-B Natriuret Pep Total Protein Albumin HDL Cholesterol TSH Salicylates Acetaminophen 08/17/21 08/17/21 08/17/21 14:40 14:40 14:40 WBC Hgb MCH RDW Lymph % (Auto) Lee % (Auto) Lymph # (Auto) Lee # (Auto) Baso # (Auto) Seg Neutrophils % Seg Neutrophils # D-Dimer 2695.37 H Sodium Chloride 96.7 L Carbon Dioxide BUN 63 H Creatinine 10.7 H Glucose 145 H POC Glucose Hemoglobin A1c Calcium Phosphorus Magnesium ALT Alkaline Phosphatase NT-Pro-B Natriuret Pep Total Protein Albumin HDL Cholesterol 30 L TSH Salicylates Acetaminophen 08/17/21 08/17/21 08/17/21 14:40 16:45 17:47 WBC Hgb MCH RDW Lymph % (Auto) Lee % (Auto) Lymph # (Auto) Lee # (Auto) Baso # (Auto) Seg Neutrophils % Seg Neutrophils # D-Dimer Sodium Chloride 96.2 L Carbon Dioxide BUN 44 H Creatinine 7.2 H Glucose 167 H POC Glucose 136 H 165 H Hemoglobin A1c Calcium Phosphorus Magnesium ALT Alkaline Phosphatase NT-Pro-B Natriuret Pep Total Protein Albumin HDL Cholesterol TSH Salicylates Acetaminophen 08/17/21 08/17/21 08/17/21 18:01 21:01 22:40 WBC Hgb MCH RDW Lymph % (Auto) Lee % (Auto) Lymph # (Auto) Lee # (Auto) Baso # (Auto) Seg Neutrophils % Seg Neutrophils # D-Dimer Sodium Chloride 97.1 L 96.4 L Carbon Dioxide BUN 39 H 40 H Creatinine 8.0 H 8.5 H Glucose 122 H 109 H POC Glucose 172 H Hemoglobin A1c Calcium Phosphorus Magnesium ALT Alkaline Phosphatase NT-Pro-B Natriuret Pep Total Protein Albumin HDL Cholesterol TSH Salicylates Acetaminophen 08/17/21 08/18/21 08/18/21 22:40 02:13 04:56 WBC Hgb MCH 27 L RDW 19.7 H Lymph % (Auto) Lee % (Auto) Lymph # (Auto) Lee # (Auto) Baso # (Auto) Seg Neutrophils % Seg Neutrophils # D-Dimer Sodium Chloride 96.8 L Carbon Dioxide BUN 44 H Creatinine 9.3 H Glucose 170 H POC Glucose 190 H Hemoglobin A1c Calcium Phosphorus 6.70 H Magnesium ALT Alkaline Phosphatase NT-Pro-B Natriuret Pep Total Protein Albumin HDL Cholesterol TSH Salicylates Acetaminophen 08/18/21 08/18/21 08/18/21 04:56 04:56 17:01 WBC Hgb MCH 27 L RDW 19.7 H Lymph % (Auto) Lee % (Auto) 9.7 H Lymph # (Auto) Lee # (Auto) Baso # (Auto) Seg Neutrophils % Seg Neutrophils # D-Dimer Sodium Chloride Carbon Dioxide BUN Creatinine Glucose POC Glucose 228 H Hemoglobin A1c 10.2 H Calcium Phosphorus Magnesium ALT Alkaline Phosphatase NT-Pro-B Natriuret Pep Total Protein Albumin HDL Cholesterol TSH Salicylates Acetaminophen 08/18/21 08/19/21 08/19/21 23:58 04:37 04:37 WBC Hgb MCH 27 L RDW 19.5 H Lymph % (Auto) Lee % (Auto) Lymph # (Auto) Lee # (Auto) Baso # (Auto) Seg Neutrophils % Seg Neutrophils # D-Dimer Sodium Chloride 96.7 L Carbon Dioxide 21 L BUN 57 H Creatinine 10.2 H Glucose 151 H POC Glucose 192 H Hemoglobin A1c Calcium Phosphorus Magnesium ALT Alkaline Phosphatase NT-Pro-B Natriuret Pep Total Protein Albumin HDL Cholesterol TSH Salicylates Acetaminophen 08/19/21 08/19/21 08/20/21 17:46 22:59 04:24 WBC Hgb MCH RDW Lymph % (Auto) Lee % (Auto) Lymph # (Auto) Lee # (Auto) Baso # (Auto) Seg Neutrophils % Seg Neutrophils # D-Dimer Sodium 133 L Chloride 87.9 L Carbon Dioxide 15 L BUN 33 H Creatinine 7.3 H Glucose 365 H POC Glucose 217 H 282 H Hemoglobin A1c Calcium Phosphorus 6.50 H Magnesium ALT Alkaline Phosphatase NT-Pro-B Natriuret Pep Total Protein Albumin HDL Cholesterol TSH Salicylates Acetaminophen 08/20/21 08/20/21 08/20/21 06:07 07:51 15:37 WBC Hgb MCH RDW Lymph % (Auto) Lee % (Auto) Lymph # (Auto) Lee # (Auto) Baso # (Auto) Seg Neutrophils % Seg Neutrophils # D-Dimer Sodium Chloride Carbon Dioxide BUN Creatinine Glucose POC Glucose 398 H 308 H 247 H Hemoglobin A1c Calcium Phosphorus Magnesium ALT Alkaline Phosphatase NT-Pro-B Natriuret Pep Total Protein Albumin HDL Cholesterol TSH Salicylates Acetaminophen 08/20/21 08/21/21 08/21/21 23:22 04:45 05:07 WBC Hgb MCH RDW Lymph % (Auto) Lee % (Auto) Lymph # (Auto) Lee # (Auto) Baso # (Auto) Seg Neutrophils % Seg Neutrophils # D-Dimer Sodium 134 L Chloride 92.9 L Carbon Dioxide BUN 48 H Creatinine 8.0 H Glucose 389 H POC Glucose 316 H 407 H Hemoglobin A1c Calcium 10.6 H Phosphorus Magnesium ALT Alkaline Phosphatase NT-Pro-B Natriuret Pep Total Protein Albumin HDL Cholesterol TSH Salicylates Acetaminophen 08/21/21 08/21/21 08/21/21 11:37 15:52 23:44 WBC Hgb MCH RDW Lymph % (Auto) Lee % (Auto) Lymph # (Auto) Lee # (Auto) Baso # (Auto) Seg Neutrophils % Seg Neutrophils # D-Dimer Sodium Chloride Carbon Dioxide BUN Creatinine Glucose POC Glucose 244 H 325 H 221 H Hemoglobin A1c Calcium Phosphorus Magnesium ALT Alkaline Phosphatase NT-Pro-B Natriuret Pep Total Protein Albumin HDL Cholesterol TSH Salicylates Acetaminophen 08/22/21 08/22/21 08/23/21 06:06 12:27 00:37 WBC Hgb MCH RDW Lymph % (Auto) Lee % (Auto) Lymph # (Auto) Lee # (Auto) Baso # (Auto) Seg Neutrophils % Seg Neutrophils # D-Dimer Sodium Chloride Carbon Dioxide BUN Creatinine Glucose POC Glucose 224 H 247 H 341 H Hemoglobin A1c Calcium Phosphorus Magnesium ALT Alkaline Phosphatase NT-Pro-B Natriuret Pep Total Protein Albumin HDL Cholesterol TSH Salicylates Acetaminophen 08/23/21 08/23/21 08/23/21 04:20 05:37 11:56 WBC Hgb MCH RDW Lymph % (Auto) Lee % (Auto) Lymph # (Auto) Lee # (Auto) Baso # (Auto) Seg Neutrophils % Seg Neutrophils # D-Dimer Sodium Chloride 94.4 L Carbon Dioxide BUN 49 H Creatinine 7.7 H Glucose 201 H POC Glucose 210 H 162 H Hemoglobin A1c Calcium 10.9 H Phosphorus Magnesium ALT Alkaline Phosphatase NT-Pro-B Natriuret Pep Total Protein Albumin HDL Cholesterol TSH Salicylates Acetaminophen 08/23/21 08/23/21 08/23/21 17:45 22:58 22:59 WBC 12.2 H Hgb MCH 26 L RDW 20.3 H Lymph % (Auto) Lee % (Auto) Lymph # (Auto) Lee # (Auto) Baso # (Auto) Seg Neutrophils % Seg Neutrophils # D-Dimer Sodium Chloride Carbon Dioxide BUN Creatinine Glucose POC Glucose 211 H 218 H Hemoglobin A1c Calcium Phosphorus Magnesium ALT Alkaline Phosphatase NT-Pro-B Natriuret Pep Total Protein Albumin HDL Cholesterol TSH Salicylates Acetaminophen 08/23/21 08/24/21 08/24/21 22:59 04:23 04:23 WBC 15.4 H Hgb MCH 27 L RDW 19.8 H Lymph % (Auto) Lee % (Auto) 13.0 H Lymph # (Auto) Lee # (Auto) 2.0 H Baso # (Auto) 0.2 H Seg Neutrophils % Seg Neutrophils # 9.8 H D-Dimer Sodium 136 L Chloride 93.0 L Carbon Dioxide BUN 73 H Creatinine 8.7 H 9.2 H Glucose 145 H POC Glucose Hemoglobin A1c Calcium 10.7 H Phosphorus 6.30 H Magnesium 2.70 H ALT 6 L Alkaline Phosphatase 157 H NT-Pro-B Natriuret Pep Total Protein Albumin 3.7 L HDL Cholesterol TSH Salicylates Acetaminophen 08/24/21 08/24/21 08/24/21 05:09 11:20 18:28 WBC Hgb MCH RDW Lymph % (Auto) Lee % (Auto) Lymph # (Auto) Lee # (Auto) Baso # (Auto) Seg Neutrophils % Seg Neutrophils # D-Dimer Sodium Chloride Carbon Dioxide BUN Creatinine Glucose POC Glucose 155 H 110 H 182 H Hemoglobin A1c Calcium Phosphorus Magnesium ALT Alkaline Phosphatase NT-Pro-B Natriuret Pep Total Protein Albumin HDL Cholesterol TSH Salicylates Acetaminophen 08/25/21 08/25/21 08/25/21 00:15 04:44 11:28 WBC 11.3 H Hgb MCH 27 L RDW 20.4 H Lymph % (Auto) Lee % (Auto) Lymph # (Auto) Lee # (Auto) Baso # (Auto) Seg Neutrophils % Seg Neutrophils # D-Dimer Sodium Chloride Carbon Dioxide BUN Creatinine Glucose POC Glucose 247 H 189 H Hemoglobin A1c Calcium Phosphorus Magnesium ALT Alkaline Phosphatase NT-Pro-B Natriuret Pep Total Protein Albumin HDL Cholesterol TSH Salicylates Acetaminophen 08/25/21 08/25/21 08/26/21 16:42 23:29 05:22 WBC Hgb MCH RDW Lymph % (Auto) Lee % (Auto) Lymph # (Auto) Lee # (Auto) Baso # (Auto) Seg Neutrophils % Seg Neutrophils # D-Dimer Sodium Chloride Carbon Dioxide BUN Creatinine 10.0 H Glucose POC Glucose 169 H 213 H Hemoglobin A1c Calcium Phosphorus Magnesium ALT Alkaline Phosphatase NT-Pro-B Natriuret Pep Total Protein Albumin HDL Cholesterol TSH Salicylates Acetaminophen 08/26/21 08/26/21 08/26/21 06:12 11:47 23:33 WBC Hgb MCH RDW Lymph % (Auto) Lee % (Auto) Lymph # (Auto) Lee # (Auto) Baso # (Auto) Seg Neutrophils % Seg Neutrophils # D-Dimer Sodium Chloride Carbon Dioxide BUN Creatinine Glucose POC Glucose 191 H 197 H 197 H Hemoglobin A1c Calcium Phosphorus Magnesium ALT Alkaline Phosphatase NT-Pro-B Natriuret Pep Total Protein Albumin HDL Cholesterol TSH Salicylates Acetaminophen 08/27/21 08/27/21 08/27/21 06:02 06:02 06:17 WBC Hgb MCH 27 L RDW 20.1 H Lymph % (Auto) Lee % (Auto) 14.2 H Lymph # (Auto) Lee # (Auto) 1.4 H Baso # (Auto) Seg Neutrophils % Seg Neutrophils # D-Dimer Sodium 134 L Chloride 93.8 L Carbon Dioxide BUN 56 H Creatinine 6.4 H Glucose 253 H POC Glucose 250 H Hemoglobin A1c Calcium Phosphorus 6.00 H Magnesium 2.50 H ALT < 5 L Alkaline Phosphatase 135 H NT-Pro-B Natriuret Pep Total Protein Albumin 3.6 L HDL Cholesterol TSH Salicylates Acetaminophen 08/27/21 08/27/21 08/27/21 11:21 16:05 23:13 WBC Hgb MCH RDW Lymph % (Auto) Lee % (Auto) Lymph # (Auto) Lee # (Auto) Baso # (Auto) Seg Neutrophils % Seg Neutrophils # D-Dimer Sodium Chloride Carbon Dioxide BUN Creatinine Glucose POC Glucose 287 H 321 H 286 H Hemoglobin A1c Calcium Phosphorus Magnesium ALT Alkaline Phosphatase NT-Pro-B Natriuret Pep Total Protein Albumin HDL Cholesterol TSH Salicylates Acetaminophen 08/28/21 08/28/21 08/28/21 05:11 05:29 11:30 WBC Hgb MCH RDW Lymph % (Auto) Lee % (Auto) Lymph # (Auto) Lee # (Auto) Baso # (Auto) Seg Neutrophils % Seg Neutrophils # D-Dimer Sodium 134 L Chloride 91.8 L Carbon Dioxide BUN 79 H Creatinine 8.2 H Glucose 230 H POC Glucose 225 H 190 H Hemoglobin A1c Calcium 10.8 H Phosphorus Magnesium ALT Alkaline Phosphatase NT-Pro-B Natriuret Pep Total Protein Albumin HDL Cholesterol TSH Salicylates Acetaminophen 08/28/21 08/29/21 08/29/21 15:53 00:04 04:29 WBC Hgb MCH 27 L RDW 20.6 H Lymph % (Auto) Lee % (Auto) Lymph # (Auto) Lee # (Auto) Baso # (Auto) Seg Neutrophils % Seg Neutrophils # D-Dimer Sodium Chloride Carbon Dioxide BUN Creatinine Glucose POC Glucose 235 H 223 H Hemoglobin A1c Calcium Phosphorus Magnesium ALT Alkaline Phosphatase NT-Pro-B Natriuret Pep Total Protein Albumin HDL Cholesterol TSH Salicylates Acetaminophen 08/29/21 08/29/21 08/29/21 04:29 05:37 16:14 WBC Hgb MCH RDW Lymph % (Auto) Lee % (Auto) Lymph # (Auto) Lee # (Auto) Baso # (Auto) Seg Neutrophils % Seg Neutrophils # D-Dimer Sodium Chloride Carbon Dioxide BUN Creatinine 9.8 H Glucose POC Glucose 174 H 200 H Hemoglobin A1c Calcium Phosphorus Magnesium ALT Alkaline Phosphatase NT-Pro-B Natriuret Pep Total Protein Albumin HDL Cholesterol TSH Salicylates Acetaminophen 08/30/21 08/30/21 08/30/21 00:10 05:12 05:12 WBC Hgb MCH 27 L RDW 20.2 H Lymph % (Auto) Lee % (Auto) 12.7 H Lymph # (Auto) Lee # (Auto) 1.4 H Baso # (Auto) 0.2 H Seg Neutrophils % Seg Neutrophils # D-Dimer Sodium Chloride 97.5 L Carbon Dioxide BUN 58 H Creatinine 6.9 H Glucose 112 H POC Glucose 111 H Hemoglobin A1c Calcium 10.8 H Phosphorus 6.00 H Magnesium 2.80 H ALT Alkaline Phosphatase 147 H NT-Pro-B Natriuret Pep Total Protein Albumin HDL Cholesterol TSH Salicylates Acetaminophen 08/30/21 08/31/21 08/31/21 16:40 00:27 04:30 WBC Hgb MCH RDW Lymph % (Auto) Lee % (Auto) Lymph # (Auto) Lee # (Auto) Baso # (Auto) Seg Neutrophils % Seg Neutrophils # D-Dimer Sodium Chloride Carbon Dioxide BUN Creatinine Glucose POC Glucose 224 H 200 H 125 H Hemoglobin A1c Calcium Phosphorus Magnesium ALT Alkaline Phosphatase NT-Pro-B Natriuret Pep Total Protein Albumin HDL Cholesterol TSH Salicylates Acetaminophen 09/02/21 09/02/21 09/03/21 06:04 18:25 00:55 WBC Hgb MCH RDW Lymph % (Auto) Lee % (Auto) Lymph # (Auto) Lee # (Auto) Baso # (Auto) Seg Neutrophils % Seg Neutrophils # D-Dimer Sodium Chloride Carbon Dioxide BUN Creatinine Glucose POC Glucose 68 L 134 H 110 H Hemoglobin A1c Calcium Phosphorus Magnesium ALT Alkaline Phosphatase NT-Pro-B Natriuret Pep Total Protein Albumin HDL Cholesterol TSH Salicylates Acetaminophen 09/03/21 09/03/21 09/04/21 05:53 16:10 00:11 WBC Hgb MCH RDW Lymph % (Auto) Lee % (Auto) Lymph # (Auto) Lee # (Auto) Baso # (Auto) Seg Neutrophils % Seg Neutrophils # D-Dimer Sodium Chloride Carbon Dioxide BUN Creatinine Glucose POC Glucose 64 L 60 L 69 L Hemoglobin A1c Calcium Phosphorus Magnesium ALT Alkaline Phosphatase NT-Pro-B Natriuret Pep Total Protein Albumin HDL Cholesterol TSH Salicylates Acetaminophen 09/04/21 09/04/21 09/04/21 06:01 07:29 10:04 WBC Hgb MCH RDW Lymph % (Auto) Lee % (Auto) Lymph # (Auto) Lee # (Auto) Baso # (Auto) Seg Neutrophils % Seg Neutrophils # D-Dimer Sodium Chloride 96.1 L Carbon Dioxide BUN 48 H Creatinine 7.8 H Glucose 102 H POC Glucose 116 H 119 H Hemoglobin A1c Calcium 10.4 H Phosphorus Magnesium ALT Alkaline Phosphatase NT-Pro-B Natriuret Pep Total Protein Albumin HDL Cholesterol TSH Salicylates Acetaminophen 09/04/21 09/04/21 09/05/21 10:59 16:24 00:36 WBC Hgb MCH RDW Lymph % (Auto) Lee % (Auto) Lymph # (Auto) Lee # (Auto) Baso # (Auto) Seg Neutrophils % Seg Neutrophils # D-Dimer Sodium Chloride Carbon Dioxide BUN Creatinine Glucose POC Glucose 137 H 149 H 139 H Hemoglobin A1c Calcium Phosphorus Magnesium ALT Alkaline Phosphatase NT-Pro-B Natriuret Pep Total Protein Albumin HDL Cholesterol TSH Salicylates Acetaminophen 09/05/21 09/05/21 09/05/21 04:57 06:43 16:22 WBC 11.6 H Hgb 9.9 L MCH 27 L RDW 20.4 H Lymph % (Auto) Lee % (Auto) Lymph # (Auto) Lee # (Auto) Baso # (Auto) Seg Neutrophils % Seg Neutrophils # D-Dimer Sodium Chloride Carbon Dioxide BUN Creatinine Glucose POC Glucose 149 H 188 H Hemoglobin A1c Calcium Phosphorus Magnesium ALT Alkaline Phosphatase NT-Pro-B Natriuret Pep Total Protein Albumin HDL Cholesterol TSH Salicylates Acetaminophen 09/05/21 09/06/21 09/06/21 23:42 05:39 05:39 WBC Hgb MCH 27 L RDW 20.2 H Lymph % (Auto) Lee % (Auto) 9.2 H Lymph # (Auto) Lee # (Auto) 1.0 H Baso # (Auto) Seg Neutrophils % Seg Neutrophils # D-Dimer Sodium Chloride 94.2 L Carbon Dioxide BUN 35 H Creatinine 6.3 H Glucose 167 H POC Glucose 223 H Hemoglobin A1c Calcium 10.8 H Phosphorus 5.30 H Magnesium 2.50 H ALT Alkaline Phosphatase 154 H NT-Pro-B Natriuret Pep Total Protein 8.4 H Albumin 3.8 L HDL Cholesterol TSH Salicylates Acetaminophen 09/06/21 09/06/21 07:02 11:50 WBC Hgb MCH RDW Lymph % (Auto) Lee % (Auto) Lymph # (Auto) Lee # (Auto) Baso # (Auto) Seg Neutrophils % Seg Neutrophils # D-Dimer Sodium Chloride Carbon Dioxide BUN Creatinine Glucose POC Glucose 169 H 158 H Hemoglobin A1c Calcium Phosphorus Magnesium ALT Alkaline Phosphatase NT-Pro-B Natriuret Pep Total Protein Albumin HDL Cholesterol TSH Salicylates Acetaminophen Allied health notes reviewed: nursing
--- NOTE | 2021-09-06 18:20 | Progress Note ---
Assessment and Plan Assessment and plan: #Right upper extremity AV graft thrombosis #End Stage Renal Disease requiring hemodialysis -s/p AVF declotting 08/26 via IR/Vascular surgery -s/p vascular surgery/ thrombectomy of right arm AV loop graft. -temporary vasc cath removed 08/26 -continue HD per Nephro -avoid nephrotoxic medications; Renally dose medications #DKA (Diabetic Ketoacidosis)-resolved #Type II diabetes, insulin dependent -s/p insulin gtt -Patient with hypoglycemia secondary to reduced oral intake; continue tube feeds -Hgb A1C 10.2% -continue lantus 22U BID, continue SSI -goal glucose 140-180 while inpatient; currently controlled #Sepsis ruled out -patient afebrile, WBC normalizing -Blood cultures with NGTD x 5days -s/p IV abx, none needed due to no infectious process found -ID consulted, signed off #Acute Metabolic Encephalopathy-improving #H/o CVA (cerebral infarction) with left-sided deficits -Multifactorial, DKA vs azotemia vs infectious process -Awake and tracking and following commands this morning -CT head and MRI brain noted with no acute abnormality -Neurology consulted, appreciated recommendations -c/f seizure, continue Keppra -PRN Haldol for agitation -Fall and safety precaution -Aspiration precaution -Frequent reorientation -Avoid benzodiazepine to reduce the possibility of delirium -Maintenance of sleep-wake cycle -PT/OT/Speech ordered -Psychiatry consulted: Patient Celexa increased #Hypertension -continue home BP medications -PRN Hydralazine and Labetalol for SBP greater than 160 #Elevated D-Dimer #H/o DVT -BLE doppler showed no evidence for acute DVT in either lower extremity. 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 -Per patient's mother, patient has been off coumadin for a couple of years -Continue Heparin SubQ -low suspicion for PE, will order V/Q scan if return of fever, dyspnea -Patient might benefit from PO AC at discharge, wild defer to PCP #Hypothyroidism -continue synthroid #Dysphagia-improving -Patient failed initial speech eval due to mental status -continue TF for now, Nutrition following Pending repeat speech evaluation to have Dobbhoff placement reassessed #GI/ DVT Prophylaxis -PPI- Pepcid -heparin SubQ -SCDs to bilateral lower extremities while in bed #Discharge planning -continue with diet per Speech Therapy recommendations; patient will need to demonstrate adequate swallowing or will need PEG tube placement before discharge -Plan to discharge patient to rehab Disposition Plan: Continue medical management Total Time Spent with Patient (Minutes): 45 minutes History Interval history: Events overnight. Hospitalist Physical - Constitutional Vitals: Temp Pulse Resp BP Pulse Ox 99.4 F 71 18 131/54 97 09/06/21 06:04 09/06/21 06:04 09/06/21 10:00 09/06/21 06:04 09/06/21 10:00 General appearance: Present: no acute distress, well-nourished, other (Does not respond, nonverbal, randomly moves) - EENT Eyes: Present: PERRL, EOM intact ENT: hearing intact, clear oral mucosa, dentition normal, other (NG tube in place) - Neck Neck: Present: supple, normal ROM - Respiratory Respiratory effort: normal Respiratory: bilateral: CTA - Cardiovascular Rhythm: regular Heart Sounds: Present: S1 & S2 - Extremities Extremities: no ischemia, pulses intact, pulses symmetrical, No edema, normal temperature, normal color Peripheral Pulses: within normal limits - Abdominal General gastrointestinal: soft, non-tender, non-distended, normal bowel sounds - Integumentary Integumentary: Present: clear, warm, dry - Psychiatric Psychiatric: appropriate mood/affect, intact judgment & insight, memory intact, cooperative - Neurologic Neurologic: CNII-XII intact - Allied Health Allied health notes reviewed: nursing Results - Labs CBC & Chem 7: 09/06/21 05:39 09/06/21 05:39 Labs: Laboratory Last Values WBC 11.0 K/mm3 (4.5-11.0) 09/06/21 05:39 RBC 4.18 M/mm3 (3.65-5.03) 09/06/21 05:39 Hgb 11.4 gm/dl (10.1-14.3) 09/06/21 05:39 Hct 35.4 % (30.3-42.9) 09/06/21 05:39 MCV 85 fl (79-97) 09/06/21 05:39 MCH 27 pg (28-32) L 09/06/21 05:39 MCHC 32 % (30-34) 09/06/21 05:39 RDW 20.2 % (13.2-15.2) H 09/06/21 05:39 Plt Count 177 K/mm3 (140-440) 09/06/21 05:39 Lymph % (Auto) 19.1 % (13.4-35.0) 09/06/21 05:39 Tyler % (Auto) 9.2 % (0.0-7.3) H 09/06/21 05:39 Eos % (Auto) 1.9 % (0.0-4.3) 09/06/21 05:39 Baso % (Auto) 0.9 % (0.0-1.8) 09/06/21 05:39 Lymph # (Auto) 2.1 K/mm3 (1.2-5.4) 09/06/21 05:39 Tyler # (Auto) 1.0 K/mm3 (0.0-0.8) H 09/06/21 05:39 Eos # (Auto) 0.2 K/mm3 (0.0-0.4) 09/06/21 05:39 Baso # (Auto) 0.1 K/mm3 (0.0-0.1) 09/06/21 05:39 Seg Neutrophils % 68.9 % (40.0-70.0) 09/06/21 05:39 Seg Neutrophils # 7.6 K/mm3 (1.8-7.7) 09/06/21 05:39 PT 14.0 Sec. (12.2-14.9) 08/23/21 22:59 INR 0.97 (0.87-1.13) 08/23/21 22:59 APTT 27.9 Sec. (24.2-36.6) 08/23/21 22:59 D-Dimer 2695.37 ng/mlDDU (0-234) H 08/17/21 14:40 Sodium 137 mmol/L (137-145) 09/06/21 05:39 Potassium 4.0 mmol/L (3.6-5.0) 09/06/21 05:39 Chloride 94.2 mmol/L (98-107) L 09/06/21 05:39 Carbon Dioxide 27 mmol/L (22-30) 09/06/21 05:39 Anion Gap 20 mmol/L 09/06/21 05:39 BUN 35 mg/dL (7-17) H 09/06/21 05:39 Creatinine 6.3 mg/dL (0.6-1.2) H 09/06/21 05:39 Estimated GFR 9 ml/min 09/06/21 05:39 BUN/Creatinine Ratio 6 % 09/06/21 05:39 Glucose 167 mg/dL (65-100) H 09/06/21 05:39 POC Glucose 110 mg/dL (70-105) H 09/06/21 16:46 Hemoglobin A1c 10.2 % (4-6) H 08/18/21 04:56 Lactic Acid 1.70 mmol/L (0.7-2.0) 08/17/21 02:07 Calcium 10.8 mg/dL (8.4-10.2) H 09/06/21 05:39 Phosphorus 5.30 mg/dL (2.5-4.5) H 09/06/21 05:39 Magnesium 2.50 mg/dL (1.7-2.3) H 09/06/21 05:39 Total Bilirubin 0.40 mg/dL (0.1-1.2) 09/06/21 05:39 AST 14 units/L (5-40) 09/06/21 05:39 ALT 7 units/L (7-56) 09/06/21 05:39 Alkaline Phosphatase 154 units/L (35-129) H 09/06/21 05:39 NT-Pro-B Natriuret Pep 08986 pg/mL (0-450) H 08/17/21 02:07 Total Protein 8.4 g/dL (6.3-8.2) H 09/06/21 05:39 Albumin 3.8 g/dL (3.9-5) L 09/06/21 05:39 Albumin/Globulin Ratio 0.8 % 09/06/21 05:39 Triglycerides 128 mg/dL (2-149) 08/17/21 14:40 Cholesterol 128 mg/dL (50-199) 08/17/21 14:40 LDL Cholesterol Direct 69 mg/dL (50-130) 08/17/21 14:40 HDL Cholesterol 30 mg/dL (40-59) L 08/17/21 14:40 Cholesterol/HDL Ratio 4.26 % 08/17/21 14:40 TSH 5.080 mlU/mL (0.270-4.200) H 08/17/21 02:07 Salicylates < 0.3 mg/dL (2.8-20.0) L 08/17/21 02:07 Acetaminophen 5.0 ug/mL (10.0-30.0) L 08/17/21 02:07 Plasma/Serum Alcohol < 0.01 % (0-0.07) 08/17/21 02:07 Coronavirus (PCR) Negative (Negative) 09/01/21 09:52 SARS-CoV-2 (PCR) Negative (Negative) 08/17/21 09:12 Hepatitis A IgM Ab Non-reactive (NonReactive) 08/17/21 14:40 Hep Bs Antigen Non-reactive (Negative) 08/17/21 14:40 Hep B Core IgM Ab Non-reactive (NonReactive) 08/17/21 14:40 Hepatitis C Antibody Non-reactive (NonReactive) 08/17/21 14:40 Blood Type O POSITIVE 08/17/21 17:43 Antibody Screen Negative 08/17/21 17:43 Tomas/IV: Voiding Method Incontinent Active Medications - Current Medications Current Medications: Generic Name Dose Route Start Last Admin Trade Name Freq PRN Reason Stop Dose Admin Acetaminophen 650 mg 08/17/21 07:50 08/30/21 20:25 Acetaminophen 325 Mg Tab PO 650 mg Q6H PRN Administration Pain, Mild (1-3) Acetaminophen 650 mg 08/17/21 08:17 08/17/21 14:49 Acetaminophen 650 Mg Rect Supp [place] 650 mg Q4H PRN Administration Pain, Mild (1-3) Albuterol 2.5 mg 08/29/21 20:00 Albuterol 2.5 Mg/3 Ml Nebu IH Q4HRT PRN Shortness Of Breath Amlodipine Besylate 10 mg 08/22/21 11:00 09/06/21 10:13 Amlodipine 10 Mg Tab PO 10 mg QDAY HAM Administration Lipase/Protease/Amylase 1 each 08/26/21 16:00 Lipase 10,500/Protease 25,000/Amylase 43,750 (Units) Dr Lopez FEEDTUBE PRN PRN For Clogged Feeding Tube Aspirin 325 mg 08/22/21 10:00 09/06/21 10:12 Aspirin 325 Mg Tab FEEDTUBE 325 mg QDAY HAM Administration Atorvastatin Calcium 40 mg 08/29/21 22:00 09/05/21 22:22 Atorvastatin 40 Mg Tab PO 40 mg QHS HAM Administration Citalopram Hydrobromide 40 mg 09/04/21 10:00 09/06/21 10:13 Citalopram 20 Mg Tab PO 40 mg QDAY HAM Administration Clonidine HCl 0.1 mg 08/29/21 20:00 09/06/21 14:28 Clonidine 0.1 Mg Tab PO 0.1 mg TID HAM Administration Dextrose 50 ml 08/17/21 23:37 Dextrose 50% In Water (25gm) 50 Ml Syringe IV Q30MIN PRN Hypoglycemia Protocol Famotidine 20 mg 08/20/21 10:00 09/06/21 10:12 Famotidine 20 Mg Tab FEEDTUBE 20 mg QDAY HAM Administration Fluconazole 100 mg 09/05/21 14:00 09/06/21 14:29 Fluconazole 100 Mg/10 Ml Oral Syringe FEEDTUBE 09/10/21 14:01 100 mg Q24H HAM Administration Protocol Haloperidol Lactate 5 mg 08/19/21 12:00 09/01/21 11:41 Haloperidol Lactate 5 Mg/1 Ml Inj IV 5 mg Q6H PRN Administration Agitation Heparin Sodium (Porcine) 5,000 unit 08/17/21 06:00 09/06/21 14:28 Heparin 5,000 Unit/1 Ml Vial SUB-Q 5,000 unit Q8HR HAM Administration Heparin Sodium (Porcine) 3,000 unit 08/17/21 07:41 08/31/21 10:38 Heparin 10,000 Units/10 Ml Vial IV 3,000 unit KATI PRN Administration hemodialysis Hydralazine HCl 100 mg 08/17/21 09:00 09/06/21 14:28 Hydralazine 100 Mg Tab PO 100 mg TID HAM Administration Hydralazine HCl 10 mg 08/17/21 07:56 08/25/21 05:19 Hydralazine 20 Mg/1 Ml Inj IV 10 mg Q4HR PRN Administration Hypertension Hydromorphone HCl 0.25 mg 08/17/21 07:50 09/06/21 14:30 Hydromorphone 0.5 Mg/0.5 Ml Inj IV 0.25 mg Q4H PRN Administration Pain, Moderate (4-6) Hydroxyzine Pamoate 25 mg 09/03/21 14:50 Hydroxyzine Pamoate 25 Mg Cap PO Q6H PRN Anxiety Sodium Chloride 100 mls @ 999 mls/hr 09/06/21 10:52 Nacl 0.9% IV KATI PRN Hypotension Insulin Glargine 22 units 09/02/21 10:00 09/06/21 10:12 Insulin Glargine 100 Units/Ml SUB-Q 22 units BID HAM Administration Insulin Human Lispro 0 unit 08/18/21 00:00 09/06/21 18:13 Insulin Lispro 100 Unit/Ml SUB-Q Not Given Q6HR [facility] Protocol Levetiracetam 500 mg 08/20/21 10:00 09/06/21 10:12 Levetiracetam 500 Mg Tab PO 500 mg DAILY HAM Administration Levothyroxine Sodium 125 mcg 08/22/21 06:00 09/06/21 06:22 Levothyroxine 125 Mcg Tab PO 125 mcg QAM@0600 HAM Administration Lidocaine HCl 15 ml 09/05/21 14:00 09/06/21 14:29 Magic Mouthwash 30ml PO 15 ml TID HAM Administration Losartan Potassium 50 mg 08/17/21 10:00 09/06/21 10:13 Losartan 50 Mg Tab PO 50 mg QDAY HAM Administration Magnesium Hydroxide 30 ml 08/17/21 04:09 08/23/21 23:56 Magnesium Hydroxide (Mom) Oral Liqd Udc PO 30 ml Q4H PRN Administration Constipation Metoprolol Tartrate 100 mg 08/20/21 11:00 09/06/21 10:12 Metoprolol Tartrate 100 Mg Tab PO 100 mg BID HAM Administration Ondansetron HCl 4 mg 08/17/21 04:09 Ondansetron 4 Mg/2 Ml Inj IV Q8H PRN Nausea And Vomiting Phenol 1 spray 09/04/21 09:54 09/06/21 10:13 Phenol 1.4% 177 Ml Bottle MM 1 spray PRN PRN Administration Sore Throat Sevelamer Carbonate 2,400 mg 09/06/21 11:30 09/06/21 18:16 Sevelamer Carbonate 800 Mg Tab PO 2,400 mg AC HAM Administration Simple Syrup 15 ml 08/26/21 16:00 09/04/21 00:20 Simple Syrup 15 Ml FEEDTUBE 15 ml PRN PRN Administration Hypoglycemia Simple Syrup 30 ml 08/26/21 16:00 Simple Syrup 15 Ml FEEDTUBE PRN PRN Hypoglycemia Sodium Bicarbonate 325 mg 08/26/21 16:00 Sodium Bicarbonate 325 Mg Tab FEEDTUBE PRN PRN For Clogged Feeding Tube Sodium Chloride 10 ml 08/17/21 10:00 09/06/21 14:29 Sodium Chloride 0.9% 10 Ml Flush Syringe IV 10 ml BID HAM Administration Sodium Chloride 10 ml 08/17/21 04:09 08/19/21 02:59 Sodium Chloride 0.9% 10 Ml Flush Syringe IV 10 ml PRN PRN Administration LINE FLUSH Zolpidem Tartrate 5 mg 09/05/21 22:00 09/05/21 22:22 Zolpidem 5 Mg Tab PO 5 mg QHS PRN Administration Sleep Nutrition/Malnutrition Assess - Dietary Evaluation Nutrition/Malnutrition Findings: Nutrition Notes Start: 08/17/21 12:51 Freq: Status: Active Protocol: Document 09/05/21 13:01 GABRIEL (Rec: 09/05/21 13:04 GABRIEL [email or web address]) Nutrition Notes Initial or Follow up Reassessment Current Diagnosis CKD (stage V CKD),Diabetes, Hypertension,Stroke Other Pertinent Diagnosis ESRD+HD, R-UE Thrombectomy & AVF, Metabolic Encephalopathy. Current Diet TF-Nepro @ 40 ml/hr (since L 09/03). Labs/Tests 09/04: Cl 96.1, BUN 48, Crea 7 .8, Glu 102, Ca 10.4. Pertinent Medications 09/05: Levothyroxine, others nutritionally unremarkable. Height 5 ft 8 in Weight 77.8 kg [place] Body Weight (kg) 63.63 BMI 26.0 Weight change and time frame 0.5 Kg bodyt weight gain in 1 week reported. Weight Status Overweight Subjective/Other Information RD consult for routine F/U on Tf tolerance/continuation assessment. TF was discontinued and resumed during the week after CARTOGRAPHIC DRAFTER assessment and recommendation, and continues as initially prescribed, and well tolerated, according to RN notes. CARTOGRAPHIC DRAFTER note on 09/02/21 11:27: Patient demonstrates diminished cognitive function and is holding food with noted spillage from the oral cavity . Much effort with digital manipulatIon of the larynx was conducted to attain initiation of the swallow. Once the swallow was initiated which was over five to seven minutes, she demonstrated good laryngeal excursion with no evidence of aspiration. Patient is currently not appropriate for the mechanical soft diet which was recommended the previous day, due to a change in her current mentation. The anatomical structures are intact; however , she is at risk for aspiration,malnutrition and dehydration secondary to prolonged bolus holding. Recommend an alternative method of nutrition to support her nutritional needs as her mentation waxes and wanes. No further recommendations. Pr is on Room Air, O2 saturation @ 97%, according to Physical Assessment History notes. Pt has missing teeth, according to Physical Assessment History notes. Pt will need to demonstarte adquate swallowing or will need PEG tube before discharge , according to Progress notes. Percent of energy/protein needs met: Prescribed TF-Nepro w/ CARBSTEADY @ 40 ml/hr provides for energy/protein needs (1, 728 Kcal/78 g) during LOS, 97% Kcal; 83% AA. Burn Absent Trauma Absent GI Symptoms None Difficulty In Swallowing Food Allergy No Skin Integrity/Comment Assessment WNL. Current % PO Other Minimum of two criteria No Fluid Accumulation N/A Reduced Certified Performance Technologist Strength N/A (non-severe) Protein-Calorie Malnutrition N\A #1 Nutrition Diagnosis Inadequate oral intake Diagnosis Progress(for reassessment Continues documentation) Is patient on ventilator? No Is Patient Ambulatory and/or Out of Bed No REE-([facility]-confined to bed) 1850.998 Calculation Used for Recommendations [facility] Additional Notes Protein: >1.2 g/Kg AdjBW; >94 g/day. Fluids: 1 ml/Kcal, or as per MD. Nutrition Intervention Nutrition Support: Continue TF-Nepro w/CARBSTEADY @ 40 ml/hr. Flush: 150 ml water Q 4 hr, or as per MD. Kcal 1,728 Protein (gm) 78 Carbohydrates (gm) 155 Fat (gm) 92 Fluid (mL) 698 Fiber (gm) 12 % RDI: 97% Kcal; 83% AA. Goal #1 Provide at least 75% of energy /protein needs through Enteral Feeding during LOS. Follow-Up By: 09/12/21 Additional Comments Continue monitoring TF tolerance, CARTOGRAPHIC DRAFTER evaluation, and BM.
[2021-09-06] MEDS: ZOLPIDEM 5 MG TAB PO PRN (21:23)
[2021-09-07] MEDS: HYDROmorphone 0.5 MG/0.5 ML INJ IV PRN ×3 (00:53→17:51)
[2021-09-07] MEDS: INSULIN LISPRO 100 UNIT/ML SUB-Q SCH ×5 (00:55→23:53)
[2021-09-07] MEDS: HEPARIN 5,000 UNIT/1 ML VIAL SUB-Q SCH ×3 (06:28→21:08)
[2021-09-07] MEDS: SEVELAMER CARBONATE 800 MG TAB PO SCH ×3 (06:29→17:10)
[2021-09-07] MEDS: LEVOTHYROXINE 125 MCG TAB PO SCH (06:29)
[2021-09-07] MEDS: cloNIDine 0.1 MG TAB PO SCH ×3 (08:01→21:08)
[2021-09-07] MEDS: hydrALAZINE 100 MG TAB PO SCH ×3 (08:01→21:08)
--- NOTE | 2021-09-07 08:04 | Progress Note ---
Assessment and Plan 41-year-old female with known history of CVA, end-stage renal disease on dialysis on Mondays, Wednesdays and Fridays, diabetes mellitus brought into the emergency room accompanied by family for evaluation of changes in mental status which was said to have started at about 8 PM the day before coming to ER. Blood glucose was said to have been checked at home and reading was said to be high. There has been no nausea or vomiting, no diarrhea no complaints of abdominal pain. No chest pain or shortness of breath. Patient was said to have missed a dialysis on Sunday because she had not been feeling quite well. Work-up in the emergency room , labs shows blood glucose of 533, anion gap of 28, BUN of 61 and creatinine of 10.3. CT of the head reveals no acute abnormality. Patient has been started on IV fluid and insulin drip. She was closely monitored in the intensive care unit. Past Medical History: dialysis, DVT, ESRD, hypertension, migraines, stroke Past Surgical History: No surgical history Social history: no significant social history Allergic to Vancomycin. Patient awake. Patient is on room air. O2 saturation reported 100%. No complaint of chest pain, shortness of breath or cough. Complaining itching. Patient afebrile. No leukocytosis. Blood pressure 128/64, Pulse 59 , Respirations 20. Patients last blood sugur 157. Chest xray 08/17/21 reported is poor inspiration. No significant pulmonary or pleural abnormality. No pneumothorax. Venous doppler studies Bilateral 08/17/21 reported No sonographic evidence for acute DVT in either lower extremity. 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 Patient is on S/C Heparin, Famotidine, Albuterol inhaler, Fluconazole. - Patient Problems (1) DKA (diabetic ketoacidosis) Current Visit: Yes Status: Acute Qualifiers: Diabetes mellitus type: type 1 Diabetes mellitus complication detail: without coma Qualified Code(s): E10.10 - Type 1 diabetes mellitus with ketoacidosis without coma Plan to address problem: Improving. Last blood sugur 157. Anion gap still high 20. Recommend to repeat BMP with anion gap. Follow anion gap and blood sugur. Management as per primary care. (2) End stage renal disease on dialysis Current Visit: Yes Status: Acute Plan to address problem: Patient is on Hemodialysis. Management as per nephrology. (3) Acute ischemic stroke Current Visit: No Status: Acute Plan to address problem: Management as per primary care and neurology. (4) HTN (hypertension), malignant Current Visit: No Status: Acute Plan to address problem: Patient is on Metaprolol, COzzar, Hydralagine and catapress. Management as per primary care. (5) DVT (deep venous thrombosis) Current Visit: No Status: Chronic Plan to address problem: Venous doppler studies Bilateral 08/17/21 reported No sonographic evidence for acute DVT in either lower extremity. 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 Patient is on S/C Heparin. (6) Hypothyroidism Current Visit: No Status: Chronic Plan to address problem: Patient is on Levothyroxine. Management as per primary care. Subjective Date of service: 09/07/21 Principal diagnosis: Possible Sepsis; DKA; AMS; h/o CVA left hemiparesis; ESRD on Dialysis; HTN Interval history: 41-year-old female with known history of CVA, end-stage renal disease on dialysis on Mondays, Wednesdays and Fridays, diabetes mellitus brought into the emergency room accompanied by family for evaluation of changes in mental status which was said to have started at about 8 PM the day before coming to ER. Blood glucose was said to have been checked at home and reading was said to be high. There has been no nausea or vomiting, no diarrhea no complaints of abdominal pain. No chest pain or shortness of breath. Patient was said to have missed a dialysis on Sunday because she had not been feeling quite well. Work-up in the emergency room , labs shows blood glucose of 533, anion gap of 28, BUN of 61 and creatinine of 10.3. CT of the head reveals no acute abnormality. Patient has been started on IV fluid and insulin drip. She was closely monitored in the intensive care unit. Past Medical History: dialysis, DVT, ESRD, hypertension, migraines, stroke Past Surgical History: No surgical history Social history: no significant social history Allergic to Vancomycin. Patient awake. Patient is on room air. O2 saturation reported 100%. No complaint of chest pain, shortness of breath or cough. Complaining Itching. Patient afebrile. No leukocytosis. Blood pressure 128/64, Pulse 59 , Respirations 20. Patients last blood sugur 157. Chest xray 08/17/21 reported is poor inspiration. No significant pulmonary or pleural abnormality. No pneumothorax. Venous doppler studies Bilateral 08/17/21 reported No sonographic evidence for acute DVT in either lower extremity. 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 Patient is on S/C Heparin, Famotidine, Albuterol inhaler, Fluconazole. Objective Vital Signs - 12hr 09/06/21 09/06/21 09/06/21 20:27 20:47 21:23 Temperature 98.9 F Pulse Rate 71 71 Respiratory Rate Blood Pressure 131/54 126/64 126/64 O2 Sat by Pulse Oximetry 09/06/21 09/07/21 09/07/21 22:00 00:00 00:47 Temperature 98.5 F Pulse Rate 62 Respiratory 18 18 Rate Blood Pressure O2 Sat by Pulse 97 Oximetry 09/07/21 09/07/21 00:50 05:32 Temperature 98.5 F 98.4 F Pulse Rate 61 64 Respiratory 18 16 Rate Blood Pressure 107/58 128/64 O2 Sat by Pulse 99 100 Oximetry Constitutional: no acute distress, alert, other (middle aged obese female with normal respiratory effort at rest) Eyes: non-icteric ENT: oropharynx moist, oropharyngeal exudate pre (thrush), other (Small bowel feeding tube in nares) Neck: supple, no lymphadenopathy, no JVD, other (large circumference) Effort: normal Ascultation: Bilateral: diminished breath sounds Percussion: Bilateral: not dull Cardiovascular: regular rate and rhythm, other (S1,S2) Gastrointestinal: normoactive bowel sounds, soft, non-tender, non-distended (protuberant), other (obese) Integumentary: normal Extremities: no cyanosis, no edema, pulses normal, no ischemia or petechiae Neurologic: normal mental status, pupils equal and round, CN II-XII normal Psychiatric: mood appropriate, affect normal CBC and BMP: 09/06/21 05:39 09/06/21 05:39 ABG, PT/INR, D-dimer: PT/INR, D-dimer PT 14.0 Sec. (12.2-14.9) 08/23/21 22:59 INR 0.97 (0.87-1.13) 08/23/21 22:59 D-Dimer 2695.37 ng/mlDDU (0-234) H 08/17/21 14:40 Abnormal lab findings: Abnormal Labs 08/17/21 08/17/21 08/17/21 00:33 00:33 02:07 WBC Hgb MCH RDW 19.7 H Lymph % (Auto) 10.5 L [place] % (Auto) Lymph # (Auto) 1.1 L [place] # (Auto) Baso # (Auto) Seg Neutrophils % 79.1 H Seg Neutrophils # 8.6 H D-Dimer Sodium 132 L 134 L Chloride 87.8 L 88.4 L Carbon Dioxide 21 L BUN 61 H 61 H Creatinine 10.1 H 10.3 H Glucose 594 H* 533 H* POC Glucose Hemoglobin A1c Calcium Phosphorus Magnesium ALT < 5 L Alkaline Phosphatase 182 H NT-Pro-B Natriuret Pep 25833 H Total Protein Albumin HDL Cholesterol TSH Salicylates Acetaminophen 08/17/21 08/17/21 08/17/21 02:07 02:07 02:07 WBC Hgb MCH RDW Lymph % (Auto) [place] % (Auto) Lymph # (Auto) [place] # (Auto) Baso # (Auto) Seg Neutrophils % Seg Neutrophils # D-Dimer Sodium Chloride Carbon Dioxide BUN Creatinine Glucose POC Glucose Hemoglobin A1c Calcium Phosphorus Magnesium ALT Alkaline Phosphatase NT-Pro-B Natriuret Pep Total Protein Albumin HDL Cholesterol TSH 5.080 H Salicylates < 0.3 L Acetaminophen 5.0 L 08/17/21 08/17/21 08/17/21 04:20 04:20 05:09 WBC Hgb MCH RDW Lymph % (Auto) [place] % (Auto) Lymph # (Auto) [place] # (Auto) Baso # (Auto) Seg Neutrophils % Seg Neutrophils # D-Dimer Sodium 136 L Chloride 90.9 L Carbon Dioxide BUN 61 H Creatinine 10.4 H Glucose 351 H POC Glucose 298 H Hemoglobin A1c Calcium Phosphorus 6.20 H Magnesium ALT Alkaline Phosphatase NT-Pro-B Natriuret Pep Total Protein Albumin HDL Cholesterol TSH Salicylates Acetaminophen 08/17/21 08/17/21 08/17/21 09:58 10:53 13:14 WBC Hgb MCH RDW Lymph % (Auto) [place] % (Auto) Lymph # (Auto) [place] # (Auto) Baso # (Auto) Seg Neutrophils % Seg Neutrophils # D-Dimer Sodium Chloride Carbon Dioxide BUN Creatinine Glucose POC Glucose 139 H 162 H 145 H Hemoglobin A1c Calcium Phosphorus Magnesium ALT Alkaline Phosphatase NT-Pro-B Natriuret Pep Total Protein Albumin HDL Cholesterol TSH Salicylates Acetaminophen 08/17/21 08/17/21 08/17/21 14:40 14:40 14:40 WBC Hgb MCH RDW Lymph % (Auto) [place] % (Auto) Lymph # (Auto) [place] # (Auto) Baso # (Auto) Seg Neutrophils % Seg Neutrophils # D-Dimer 2695.37 H Sodium Chloride 96.7 L Carbon Dioxide BUN 63 H Creatinine 10.7 H Glucose 145 H POC Glucose Hemoglobin A1c Calcium Phosphorus Magnesium ALT Alkaline Phosphatase NT-Pro-B Natriuret Pep Total Protein Albumin HDL Cholesterol 30 L TSH Salicylates Acetaminophen 08/17/21 08/17/21 08/17/21 14:40 16:45 17:47 WBC Hgb MCH RDW Lymph % (Auto) [place] % (Auto) Lymph # (Auto) [place] # (Auto) Baso # (Auto) Seg Neutrophils % Seg Neutrophils # D-Dimer Sodium Chloride 96.2 L Carbon Dioxide BUN 44 H Creatinine 7.2 H Glucose 167 H POC Glucose 136 H 165 H Hemoglobin A1c Calcium Phosphorus Magnesium ALT Alkaline Phosphatase NT-Pro-B Natriuret Pep Total Protein Albumin HDL Cholesterol TSH Salicylates Acetaminophen 08/17/21 08/17/21 08/17/21 18:01 21:01 22:40 WBC Hgb MCH RDW Lymph % (Auto) [place] % (Auto) Lymph # (Auto) [place] # (Auto) Baso # (Auto) Seg Neutrophils % Seg Neutrophils # D-Dimer Sodium Chloride 97.1 L 96.4 L Carbon Dioxide BUN 39 H 40 H Creatinine 8.0 H 8.5 H Glucose 122 H 109 H POC Glucose 172 H Hemoglobin A1c Calcium Phosphorus Magnesium ALT Alkaline Phosphatase NT-Pro-B Natriuret Pep Total Protein Albumin HDL Cholesterol TSH Salicylates Acetaminophen 08/17/21 08/18/21 08/18/21 22:40 02:13 04:56 WBC Hgb MCH 27 L RDW 19.7 H Lymph % (Auto) [place] % (Auto) Lymph # (Auto) [place] # (Auto) Baso # (Auto) Seg Neutrophils % Seg Neutrophils # D-Dimer Sodium Chloride 96.8 L Carbon Dioxide BUN 44 H Creatinine 9.3 H Glucose 170 H POC Glucose 190 H Hemoglobin A1c Calcium Phosphorus 6.70 H Magnesium ALT Alkaline Phosphatase NT-Pro-B Natriuret Pep Total Protein Albumin HDL Cholesterol TSH Salicylates Acetaminophen 08/18/21 08/18/21 08/18/21 04:56 04:56 17:01 WBC Hgb MCH 27 L RDW 19.7 H Lymph % (Auto) [place] % (Auto) 9.7 H Lymph # (Auto) [place] # (Auto) Baso # (Auto) Seg Neutrophils % Seg Neutrophils # D-Dimer Sodium Chloride Carbon Dioxide BUN Creatinine Glucose POC Glucose 228 H Hemoglobin A1c 10.2 H Calcium Phosphorus Magnesium ALT Alkaline Phosphatase NT-Pro-B Natriuret Pep Total Protein Albumin HDL Cholesterol TSH Salicylates Acetaminophen 08/18/21 08/19/21 08/19/21 23:58 04:37 04:37 WBC Hgb MCH 27 L RDW 19.5 H Lymph % (Auto) [place] % (Auto) Lymph # (Auto) [place] # (Auto) Baso # (Auto) Seg Neutrophils % Seg Neutrophils # D-Dimer Sodium Chloride 96.7 L Carbon Dioxide 21 L BUN 57 H Creatinine 10.2 H Glucose 151 H POC Glucose 192 H Hemoglobin A1c Calcium Phosphorus Magnesium ALT Alkaline Phosphatase NT-Pro-B Natriuret Pep Total Protein Albumin HDL Cholesterol TSH Salicylates Acetaminophen 08/19/21 08/19/21 08/20/21 17:46 22:59 04:24 WBC Hgb MCH RDW Lymph % (Auto) [place] % (Auto) Lymph # (Auto) [place] # (Auto) Baso # (Auto) Seg Neutrophils % Seg Neutrophils # D-Dimer Sodium 133 L Chloride 87.9 L Carbon Dioxide 15 L BUN 33 H Creatinine 7.3 H Glucose 365 H POC Glucose 217 H 282 H Hemoglobin A1c Calcium Phosphorus 6.50 H Magnesium ALT Alkaline Phosphatase NT-Pro-B Natriuret Pep Total Protein Albumin HDL Cholesterol TSH Salicylates Acetaminophen 08/20/21 08/20/21 08/20/21 06:07 07:51 15:37 WBC Hgb MCH RDW Lymph % (Auto) [place] % (Auto) Lymph # (Auto) [place] # (Auto) Baso # (Auto) Seg Neutrophils % Seg Neutrophils # D-Dimer Sodium Chloride Carbon Dioxide BUN Creatinine Glucose POC Glucose 398 H 308 H 247 H Hemoglobin A1c Calcium Phosphorus Magnesium ALT Alkaline Phosphatase NT-Pro-B Natriuret Pep Total Protein Albumin HDL Cholesterol TSH Salicylates Acetaminophen 08/20/21 08/21/21 08/21/21 23:22 04:45 05:07 WBC Hgb MCH RDW Lymph % (Auto) [place] % (Auto) Lymph # (Auto) [place] # (Auto) Baso # (Auto) Seg Neutrophils % Seg Neutrophils # D-Dimer Sodium 134 L Chloride 92.9 L Carbon Dioxide BUN 48 H Creatinine 8.0 H Glucose 389 H POC Glucose 316 H 407 H Hemoglobin A1c Calcium 10.6 H Phosphorus Magnesium ALT Alkaline Phosphatase NT-Pro-B Natriuret Pep Total Protein Albumin HDL Cholesterol TSH Salicylates Acetaminophen 08/21/21 08/21/21 08/21/21 11:37 15:52 23:44 WBC Hgb MCH RDW Lymph % (Auto) [place] % (Auto) Lymph # (Auto) [place] # (Auto) Baso # (Auto) Seg Neutrophils % Seg Neutrophils # D-Dimer Sodium Chloride Carbon Dioxide BUN Creatinine Glucose POC Glucose 244 H 325 H 221 H Hemoglobin A1c Calcium Phosphorus Magnesium ALT Alkaline Phosphatase NT-Pro-B Natriuret Pep Total Protein Albumin HDL Cholesterol TSH Salicylates Acetaminophen 08/22/21 08/22/21 08/23/21 06:06 12:27 00:37 WBC Hgb MCH RDW Lymph % (Auto) [place] % (Auto) Lymph # (Auto) [place] # (Auto) Baso # (Auto) Seg Neutrophils % Seg Neutrophils # D-Dimer Sodium Chloride Carbon Dioxide BUN Creatinine Glucose POC Glucose 224 H 247 H 341 H Hemoglobin A1c Calcium Phosphorus Magnesium ALT Alkaline Phosphatase NT-Pro-B Natriuret Pep Total Protein Albumin HDL Cholesterol TSH Salicylates Acetaminophen 08/23/21 08/23/21 08/23/21 04:20 05:37 11:56 WBC Hgb MCH RDW Lymph % (Auto) [place] % (Auto) Lymph # (Auto) [place] # (Auto) Baso # (Auto) Seg Neutrophils % Seg Neutrophils # D-Dimer Sodium Chloride 94.4 L Carbon Dioxide BUN 49 H Creatinine 7.7 H Glucose 201 H POC Glucose 210 H 162 H Hemoglobin A1c Calcium 10.9 H Phosphorus Magnesium ALT Alkaline Phosphatase NT-Pro-B Natriuret Pep Total Protein Albumin HDL Cholesterol TSH Salicylates Acetaminophen 08/23/21 08/23/21 08/23/21 17:45 22:58 22:59 WBC 12.2 H Hgb MCH 26 L RDW 20.3 H Lymph % (Auto) [place] % (Auto) Lymph # (Auto) [place] # (Auto) Baso # (Auto) Seg Neutrophils % Seg Neutrophils # D-Dimer Sodium Chloride Carbon Dioxide BUN Creatinine Glucose POC Glucose 211 H 218 H Hemoglobin A1c Calcium Phosphorus Magnesium ALT Alkaline Phosphatase NT-Pro-B Natriuret Pep Total Protein Albumin HDL Cholesterol TSH Salicylates Acetaminophen 08/23/21 08/24/21 08/24/21 22:59 04:23 04:23 WBC 15.4 H Hgb MCH 27 L RDW 19.8 H Lymph % (Auto) [place] % (Auto) 13.0 H Lymph # (Auto) [place] # (Auto) 2.0 H Baso # (Auto) 0.2 H Seg Neutrophils % Seg Neutrophils # 9.8 H D-Dimer Sodium 136 L Chloride 93.0 L Carbon Dioxide BUN 73 H Creatinine 8.7 H 9.2 H Glucose 145 H POC Glucose Hemoglobin A1c Calcium 10.7 H Phosphorus 6.30 H Magnesium 2.70 H ALT 6 L Alkaline Phosphatase 157 H NT-Pro-B Natriuret Pep Total Protein Albumin 3.7 L HDL Cholesterol TSH Salicylates Acetaminophen 08/24/21 08/24/21 08/24/21 05:09 11:20 18:28 WBC Hgb MCH RDW Lymph % (Auto) [place] % (Auto) Lymph # (Auto) [place] # (Auto) Baso # (Auto) Seg Neutrophils % Seg Neutrophils # D-Dimer Sodium Chloride Carbon Dioxide BUN Creatinine Glucose POC Glucose 155 H 110 H 182 H Hemoglobin A1c Calcium Phosphorus Magnesium ALT Alkaline Phosphatase NT-Pro-B Natriuret Pep Total Protein Albumin HDL Cholesterol TSH Salicylates Acetaminophen 08/25/21 08/25/21 08/25/21 00:15 04:44 11:28 WBC 11.3 H Hgb MCH 27 L RDW 20.4 H Lymph % (Auto) [place] % (Auto) Lymph # (Auto) [place] # (Auto) Baso # (Auto) Seg Neutrophils % Seg Neutrophils # D-Dimer Sodium Chloride Carbon Dioxide BUN Creatinine Glucose POC Glucose 247 H 189 H Hemoglobin A1c Calcium Phosphorus Magnesium ALT Alkaline Phosphatase NT-Pro-B Natriuret Pep Total Protein Albumin HDL Cholesterol TSH Salicylates Acetaminophen 08/25/21 08/25/21 08/26/21 16:42 23:29 05:22 WBC Hgb MCH RDW Lymph % (Auto) [place] % (Auto) Lymph # (Auto) [place] # (Auto) Baso # (Auto) Seg Neutrophils % Seg Neutrophils # D-Dimer Sodium Chloride Carbon Dioxide BUN Creatinine 10.0 H Glucose POC Glucose 169 H 213 H Hemoglobin A1c Calcium Phosphorus Magnesium ALT Alkaline Phosphatase NT-Pro-B Natriuret Pep Total Protein Albumin HDL Cholesterol TSH Salicylates Acetaminophen 08/26/21 08/26/21 08/26/21 06:12 11:47 23:33 WBC Hgb MCH RDW Lymph % (Auto) [place] % (Auto) Lymph # (Auto) [place] # (Auto) Baso # (Auto) Seg Neutrophils % Seg Neutrophils # D-Dimer Sodium Chloride Carbon Dioxide BUN Creatinine Glucose POC Glucose 191 H 197 H 197 H Hemoglobin A1c Calcium Phosphorus Magnesium ALT Alkaline Phosphatase NT-Pro-B Natriuret Pep Total Protein Albumin HDL Cholesterol TSH Salicylates Acetaminophen 08/27/21 08/27/21 08/27/21 06:02 06:02 06:17 WBC Hgb MCH 27 L RDW 20.1 H Lymph % (Auto) [place] % (Auto) 14.2 H Lymph # (Auto) [place] # (Auto) 1.4 H Baso # (Auto) Seg Neutrophils % Seg Neutrophils # D-Dimer Sodium 134 L Chloride 93.8 L Carbon Dioxide BUN 56 H Creatinine 6.4 H Glucose 253 H POC Glucose 250 H Hemoglobin A1c Calcium Phosphorus 6.00 H Magnesium 2.50 H ALT < 5 L Alkaline Phosphatase 135 H NT-Pro-B Natriuret Pep Total Protein Albumin 3.6 L HDL Cholesterol TSH Salicylates Acetaminophen 08/27/21 08/27/21 08/27/21 11:21 16:05 23:13 WBC Hgb MCH RDW Lymph % (Auto) [place] % (Auto) Lymph # (Auto) [place] # (Auto) Baso # (Auto) Seg Neutrophils % Seg Neutrophils # D-Dimer Sodium Chloride Carbon Dioxide BUN Creatinine Glucose POC Glucose 287 H 321 H 286 H Hemoglobin A1c Calcium Phosphorus Magnesium ALT Alkaline Phosphatase NT-Pro-B Natriuret Pep Total Protein Albumin HDL Cholesterol TSH Salicylates Acetaminophen 08/28/21 08/28/21 08/28/21 05:11 05:29 11:30 WBC Hgb MCH RDW Lymph % (Auto) [place] % (Auto) Lymph # (Auto) [place] # (Auto) Baso # (Auto) Seg Neutrophils % Seg Neutrophils # D-Dimer Sodium 134 L Chloride 91.8 L Carbon Dioxide BUN 79 H Creatinine 8.2 H Glucose 230 H POC Glucose 225 H 190 H Hemoglobin A1c Calcium 10.8 H Phosphorus Magnesium ALT Alkaline Phosphatase NT-Pro-B Natriuret Pep Total Protein Albumin HDL Cholesterol TSH Salicylates Acetaminophen 08/28/21 08/29/21 08/29/21 15:53 00:04 04:29 WBC Hgb MCH 27 L RDW 20.6 H Lymph % (Auto) [place] % (Auto) Lymph # (Auto) [place] # (Auto) Baso # (Auto) Seg Neutrophils % Seg Neutrophils # D-Dimer Sodium Chloride Carbon Dioxide BUN Creatinine Glucose POC Glucose 235 H 223 H Hemoglobin A1c Calcium Phosphorus Magnesium ALT Alkaline Phosphatase NT-Pro-B Natriuret Pep Total Protein Albumin HDL Cholesterol TSH Salicylates Acetaminophen 08/29/21 08/29/21 08/29/21 04:29 05:37 16:14 WBC Hgb MCH RDW Lymph % (Auto) [place] % (Auto) Lymph # (Auto) [place] # (Auto) Baso # (Auto) Seg Neutrophils % Seg Neutrophils # D-Dimer Sodium Chloride Carbon Dioxide BUN Creatinine 9.8 H Glucose POC Glucose 174 H 200 H Hemoglobin A1c Calcium Phosphorus Magnesium ALT Alkaline Phosphatase NT-Pro-B Natriuret Pep Total Protein Albumin HDL Cholesterol TSH Salicylates Acetaminophen 08/30/21 08/30/21 08/30/21 00:10 05:12 05:12 WBC Hgb MCH 27 L RDW 20.2 H Lymph % (Auto) [place] % (Auto) 12.7 H Lymph # (Auto) [place] # (Auto) 1.4 H Baso # (Auto) 0.2 H Seg Neutrophils % Seg Neutrophils # D-Dimer Sodium Chloride 97.5 L Carbon Dioxide BUN 58 H Creatinine 6.9 H Glucose 112 H POC Glucose 111 H Hemoglobin A1c Calcium 10.8 H Phosphorus 6.00 H Magnesium 2.80 H ALT Alkaline Phosphatase 147 H NT-Pro-B Natriuret Pep Total Protein Albumin HDL Cholesterol TSH Salicylates Acetaminophen 08/30/21 08/31/21 08/31/21 16:40 00:27 04:30 WBC Hgb MCH RDW Lymph % (Auto) [place] % (Auto) Lymph # (Auto) [place] # (Auto) Baso # (Auto) Seg Neutrophils % Seg Neutrophils # D-Dimer Sodium Chloride Carbon Dioxide BUN Creatinine Glucose POC Glucose 224 H 200 H 125 H Hemoglobin A1c Calcium Phosphorus Magnesium ALT Alkaline Phosphatase NT-Pro-B Natriuret Pep Total Protein Albumin HDL Cholesterol TSH Salicylates Acetaminophen 09/02/21 09/02/21 09/03/21 06:04 18:25 00:55 WBC Hgb MCH RDW Lymph % (Auto) [place] % (Auto) Lymph # (Auto) [place] # (Auto) Baso # (Auto) Seg Neutrophils % Seg Neutrophils # D-Dimer Sodium Chloride Carbon Dioxide BUN Creatinine Glucose POC Glucose 68 L 134 H 110 H Hemoglobin A1c Calcium Phosphorus Magnesium ALT Alkaline Phosphatase NT-Pro-B Natriuret Pep Total Protein Albumin HDL Cholesterol TSH Salicylates Acetaminophen 09/03/21 09/03/21 09/04/21 05:53 16:10 00:11 WBC Hgb MCH RDW Lymph % (Auto) [place] % (Auto) Lymph # (Auto) [place] # (Auto) Baso # (Auto) Seg Neutrophils % Seg Neutrophils # D-Dimer Sodium Chloride Carbon Dioxide BUN Creatinine Glucose POC Glucose 64 L 60 L 69 L Hemoglobin A1c Calcium Phosphorus Magnesium ALT Alkaline Phosphatase NT-Pro-B Natriuret Pep Total Protein Albumin HDL Cholesterol TSH Salicylates Acetaminophen 09/04/21 09/04/21 09/04/21 06:01 07:29 10:04 WBC Hgb MCH RDW Lymph % (Auto) [place] % (Auto) Lymph # (Auto) [place] # (Auto) Baso # (Auto) Seg Neutrophils % Seg Neutrophils # D-Dimer Sodium Chloride 96.1 L Carbon Dioxide BUN 48 H Creatinine 7.8 H Glucose 102 H POC Glucose 116 H 119 H Hemoglobin A1c Calcium 10.4 H Phosphorus Magnesium ALT Alkaline Phosphatase NT-Pro-B Natriuret Pep Total Protein Albumin HDL Cholesterol TSH Salicylates Acetaminophen 09/04/21 09/04/21 09/05/21 10:59 16:24 00:36 WBC Hgb MCH RDW Lymph % (Auto) [place] % (Auto) Lymph # (Auto) [place] # (Auto) Baso # (Auto) Seg Neutrophils % Seg Neutrophils # D-Dimer Sodium Chloride Carbon Dioxide BUN Creatinine Glucose POC Glucose 137 H 149 H 139 H Hemoglobin A1c Calcium Phosphorus Magnesium ALT Alkaline Phosphatase NT-Pro-B Natriuret Pep Total Protein Albumin HDL Cholesterol TSH Salicylates Acetaminophen 09/05/21 09/05/21 09/05/21 04:57 06:43 16:22 WBC 11.6 H Hgb 9.9 L MCH 27 L RDW 20.4 H Lymph % (Auto) [place] % (Auto) Lymph # (Auto) [place] # (Auto) Baso # (Auto) Seg Neutrophils % Seg Neutrophils # D-Dimer Sodium Chloride Carbon Dioxide BUN Creatinine Glucose POC Glucose 149 H 188 H Hemoglobin A1c Calcium Phosphorus Magnesium ALT Alkaline Phosphatase NT-Pro-B Natriuret Pep Total Protein Albumin HDL Cholesterol TSH Salicylates Acetaminophen 09/05/21 09/06/21 09/06/21 23:42 05:39 05:39 WBC Hgb MCH 27 L RDW 20.2 H Lymph % (Auto) [place] % (Auto) 9.2 H Lymph # (Auto) [place] # (Auto) 1.0 H Baso # (Auto) Seg Neutrophils % Seg Neutrophils # D-Dimer Sodium Chloride 94.2 L Carbon Dioxide BUN 35 H Creatinine 6.3 H Glucose 167 H POC Glucose 223 H Hemoglobin A1c Calcium 10.8 H Phosphorus 5.30 H Magnesium 2.50 H ALT Alkaline Phosphatase 154 H NT-Pro-B Natriuret Pep Total Protein 8.4 H Albumin 3.8 L HDL Cholesterol TSH Salicylates Acetaminophen 09/06/21 09/06/21 09/06/21 07:02 11:50 16:46 WBC Hgb MCH RDW Lymph % (Auto) [place] % (Auto) Lymph # (Auto) [place] # (Auto) Baso # (Auto) Seg Neutrophils % Seg Neutrophils # D-Dimer Sodium Chloride Carbon Dioxide BUN Creatinine Glucose POC Glucose 169 H 158 H 110 H Hemoglobin A1c Calcium Phosphorus Magnesium ALT Alkaline Phosphatase NT-Pro-B Natriuret Pep Total Protein Albumin HDL Cholesterol TSH Salicylates Acetaminophen 09/07/21 00:29 WBC Hgb MCH RDW Lymph % (Auto) [place] % (Auto) Lymph # (Auto) [place] # (Auto) Baso # (Auto) Seg Neutrophils % Seg Neutrophils # D-Dimer Sodium Chloride Carbon Dioxide BUN Creatinine Glucose POC Glucose 148 H Hemoglobin A1c Calcium Phosphorus Magnesium ALT Alkaline Phosphatase NT-Pro-B Natriuret Pep Total Protein Albumin HDL Cholesterol TSH Salicylates Acetaminophen Chest x-ray: report reviewed, image reviewed Additional Studies: CHEST 1 VIEW 08/22/2021 12:35 PM INDICATION / CLINICAL INFORMATION: Tachypnea. COMPARISON: 08/17/21. FINDINGS: SUPPORT DEVICES: There is a new feeding tube coursing into the stomach with the tip not seen. HEART / MEDIASTINUM: Mild cardiomegaly is stable. LUNGS / PLEURA: Lung volumes have improved. No acute pulmonary or pleural abnormality. No pneumothorax. ADDITIONAL FINDINGS: There is partial resection of the distal right clavicle. There is a vascular graft in the left axillary region. IMPRESSION: No acute findings. Allied health notes reviewed: nursing
[2021-09-07] MEDS: MAGIC MOUTHWASH 30ML PO SCH ×3 (08:40→21:09)
[2021-09-07] MEDS: amLODIPine 10 MG TAB PO SCH (11:03)
[2021-09-07] MEDS: METOPROLOL TARTRATE 100 MG TAB PO SCH ×2 (11:04→21:08)
[2021-09-07] MEDS: LOSARTAN 50 MG TAB PO SCH (11:04)
--- NOTE | 2021-09-07 11:34 | Progress Note ---
Assessment and Plan ESRD - HD today HTN - F/u on meds Lytes - Low Ca bath on HD. F/u labs HD Access - S/p thrombectomy Rt arm AVF & stable Subjective Date of service: 09/07/21 Principal diagnosis: Possible Sepsis; DKA; AMS; h/o CVA left hemiparesis; ESRD on Dialysis; HTN Interval history: No new complaint Objective - Vital Signs Vital signs: Vital Signs - 12hr 09/07/21 09/07/21 09/07/21 00:00 00:47 00:50 Temperature 98.5 F 98.5 F Pulse Rate 62 61 Respiratory 18 18 Rate Blood Pressure 107/58 Blood Pressure [Right] O2 Sat by Pulse 99 Oximetry O2 Sat by Pulse Oximetry [ Bilateral] 09/07/21 09/07/21 09/07/21 05:32 08:00 09:25 Temperature 98.4 F 98.1 F 97.2 F L Pulse Rate 64 59 L 54 L Respiratory 16 20 18 Rate Blood Pressure 128/64 118/61 Blood Pressure 128/64 [Right] O2 Sat by Pulse 100 100 Oximetry O2 Sat by Pulse 99 Oximetry [ Bilateral] 09/07/21 10:00 Temperature Pulse Rate Respiratory 20 Rate Blood Pressure Blood Pressure [Right] O2 Sat by Pulse 98 Oximetry O2 Sat by Pulse Oximetry [ Bilateral] - General Appearance General appearance: other (Awake & responsive) EENT: PERRL, hearing intact Neck: no JVD Respiratory: Present: Other (Good air entry) Cardiology: regular, S1S2 Gastrointestinal: other (Soft) Neurologic: alert and oriented x3 - Lab 09/06/21 05:39 09/06/21 05:39 Most recent lab results Calcium 10.8 mg/dL (8.4-10.2) H 09/06/21 05:39 Phosphorus 5.30 mg/dL (2.5-4.5) H 09/06/21 05:39 Magnesium 2.50 mg/dL (1.7-2.3) H 09/06/21 05:39 Medications & Allergies - Medications Allergies/Adverse Reactions: Allergies vancomycin Adverse Reaction (Verified 04/02/13 10:16) Hives Home Medications: Home Medications Medication Instructions Recorded Confirmed Last Taken Type Hydralazine HCl [hydrALAZINE] 100 mg PO BID 04/02/13 08/17/21 04/02/13 08:00 History Aspirin/Dipyridamole [Aggrenox] 1 cap PO BID #60 capsule 04/10/13 08/17/21 Unknown Rx Cinacalcet [Sensipar] 60 mg PO QDAY 08/17/21 08/17/21 Unknown History Citalopram [celeXA] 20 mg PO QDAY 08/17/21 08/17/21 Unknown History Gabapentin [Neurontin] 100 mg PO Q8HR 08/17/21 08/17/21 Unknown History Insulin Glargine,Hum.rec.anlog 55 unit SQ BID 08/17/21 08/17/21 Unknown History [Lantus Solostar] Promethazine [Phenergan] 25 mg PO Q6HR PRN 08/17/21 08/17/21 Unknown History Sevelamer Carbonate [Renvela] 800 mg PO TIDWM 08/17/21 08/17/21 Unknown History amLODIPine [Norvasc] 10 mg PO DAILY 08/17/21 08/17/21 Unknown History carvediloL [Coreg] 25 mg PO BID 08/17/21 08/17/21 Unknown History Albuterol Mdi (or & Nicu Only) 2 puff IH QID PRN 08/29/21 08/29/21 Unknown History [ProAir HFA Inhaler] AtorvaSTATin [Lipitor] 40 mg PO QHS 08/29/21 08/29/21 Unknown History Cetirizine HCl [Zyrtec 10mg tab] 10 mg PO QDAY 08/29/21 08/29/21 Unknown History Ferric Citrate (Nf) [Auryxia] 210 mg PO TID 08/29/21 08/29/21 Unknown History Fluticasone [Flonase] 2 spray NS QDAY PRN 08/29/21 08/29/21 Unknown History Furosemide [Lasix TAB] 40 mg PO QDAY 08/29/21 08/29/21 Unknown History Insulin Aspart (Nf) [NovoLOG 15 units SQ TIDAC 08/29/21 08/29/21 Unknown History Flexpen] Metoclopramide [Reglan] 10 mg PO HS 08/29/21 08/29/21 Unknown History Pantoprazole [Protonix] 40 mg PO QDAY 08/29/21 08/29/21 Unknown History Prochlorperazine Maleate 10 mg PO QDAY PRN 08/29/21 08/29/21 Unknown History [Compazine] Sucroferric Oxyhydroxide(Nf) 500 mg PO TIDWM 08/29/21 08/29/21 Unknown History [Velphoro (Nf)] cloNIDine [Catapres] 0.1 mg PO TID 08/29/21 08/29/21 Unknown History Active Medications: Generic Name Dose Route Start Last Admin Trade Name Freq PRN Reason Stop Dose Admin Acetaminophen 650 mg 08/17/21 07:50 08/30/21 20:25 Acetaminophen 325 Mg Tab PO 650 mg Q6H PRN Administration Pain, Mild (1-3) Acetaminophen 650 mg 08/17/21 08:17 08/17/21 14:49 Acetaminophen 650 Mg Rect Supp [place] 650 mg Q4H PRN Administration Pain, Mild (1-3) Albuterol 2.5 mg 08/29/21 20:00 Albuterol 2.5 Mg/3 Ml Nebu IH Q4HRT PRN Shortness Of Breath Amlodipine Besylate 10 mg 08/22/21 11:00 09/07/21 11:03 Amlodipine 10 Mg Tab PO Not Given QDAY HAM Lipase/Protease/Amylase 1 each 08/26/21 16:00 Lipase 10,500/Protease 25,000/Amylase 43,750 (Units) Dr Lopez FEEDTUBE PRN PRN For Clogged Feeding Tube Aspirin 325 mg 08/22/21 10:00 09/06/21 10:12 Aspirin 325 Mg Tab FEEDTUBE 325 mg QDAY HAM Administration Atorvastatin Calcium 40 mg 08/29/21 22:00 09/06/21 21:22 Atorvastatin 40 Mg Tab PO 40 mg QHS HAM Administration Citalopram Hydrobromide 40 mg 09/04/21 10:00 09/06/21 10:13 Citalopram 20 Mg Tab PO 40 mg QDAY HAM Administration Clonidine HCl 0.1 mg 08/29/21 20:00 09/07/21 08:01 Clonidine 0.1 Mg Tab PO Not Given TID HAM Dextrose 50 ml 08/17/21 23:37 Dextrose 50% In Water (25gm) 50 Ml Syringe IV Q30MIN PRN Hypoglycemia Protocol Diphenhydramine HCl 25 mg 09/07/21 09:30 Diphenhydramine 25 Mg Cap PO Q8H PRN Itching Famotidine 20 mg 08/20/21 10:00 09/06/21 10:12 Famotidine 20 Mg Tab FEEDTUBE 20 mg QDAY HAM Administration Fluconazole 100 mg 09/05/21 14:00 09/06/21 14:29 Fluconazole 100 Mg/10 Ml Oral Syringe FEEDTUBE 09/10/21 14:01 100 mg Q24H HAM Administration Protocol Haloperidol Lactate 5 mg 08/19/21 12:00 09/01/21 11:41 Haloperidol Lactate 5 Mg/1 Ml Inj IV 5 mg Q6H PRN Administration Agitation Heparin Sodium (Porcine) 5,000 unit 08/17/21 06:00 09/07/21 06:28 Heparin 5,000 Unit/1 Ml Vial SUB-Q 5,000 unit Q8HR HAM Administration Heparin Sodium (Porcine) 3,000 unit 08/17/21 07:41 08/31/21 10:38 Heparin 10,000 Units/10 Ml Vial IV 3,000 unit KATI PRN Administration hemodialysis Hydralazine HCl 100 mg 08/17/21 09:00 09/07/21 08:01 Hydralazine 100 Mg Tab PO Not Given TID HAM Hydralazine HCl 10 mg 08/17/21 07:56 08/25/21 05:19 Hydralazine 20 Mg/1 Ml Inj IV 10 mg Q4HR PRN Administration Hypertension Hydromorphone HCl 0.25 mg 08/17/21 07:50 09/07/21 06:32 Hydromorphone 0.5 Mg/0.5 Ml Inj IV 0.25 mg Q4H PRN Administration Pain, Moderate (4-6) Hydroxyzine Pamoate 25 mg 09/03/21 14:50 Hydroxyzine Pamoate 25 Mg Cap PO Q6H PRN Anxiety Sodium Chloride 100 mls @ 999 mls/hr 09/06/21 10:52 Nacl 0.9% IV KATI PRN Hypotension Insulin Glargine 22 units 09/02/21 10:00 09/06/21 21:22 Insulin Glargine 100 Units/Ml SUB-Q 22 units BID HAM Administration Insulin Human Lispro 0 unit 08/18/21 00:00 09/07/21 06:29 Insulin Lispro 100 Unit/Ml SUB-Q 3 unit Q6HR HAM Administration Protocol Levetiracetam 500 mg 08/20/21 10:00 09/06/21 10:12 Levetiracetam 500 Mg Tab PO 500 mg DAILY HAM Administration Levothyroxine Sodium 125 mcg 08/22/21 06:00 09/07/21 06:29 Levothyroxine 125 Mcg Tab PO 125 mcg QAM@0600 HAM Administration Lidocaine HCl 15 ml 09/05/21 14:00 09/07/21 08:40 Magic Mouthwash 30ml PO 15 ml TID HAM Administration Losartan Potassium 50 mg 08/17/21 10:00 09/07/21 11:04 Losartan 50 Mg Tab PO Not Given QDAY HAM Magnesium Hydroxide 30 ml 08/17/21 04:09 08/23/21 23:56 Magnesium Hydroxide (Mom) Oral Liqd Udc PO 30 ml Q4H PRN Administration Constipation Metoprolol Tartrate 100 mg 08/20/21 11:00 09/07/21 11:04 Metoprolol Tartrate 100 Mg Tab PO Not Given BID HAM Ondansetron HCl 4 mg 08/17/21 04:09 Ondansetron 4 Mg/2 Ml Inj IV Q8H PRN Nausea And Vomiting Phenol 1 spray 09/04/21 09:54 09/06/21 10:13 Phenol 1.4% 177 Ml Bottle MM 1 spray PRN PRN Administration Sore Throat Sevelamer Carbonate 2,400 mg 09/06/21 11:30 09/07/21 06:29 Sevelamer Carbonate 800 Mg Tab PO 2,400 mg AC HAM Administration Simple Syrup 15 ml 08/26/21 16:00 09/04/21 00:20 Simple Syrup 15 Ml FEEDTUBE 15 ml PRN PRN Administration Hypoglycemia Simple Syrup 30 ml 08/26/21 16:00 Simple Syrup 15 Ml FEEDTUBE PRN PRN Hypoglycemia Sodium Bicarbonate 325 mg 08/26/21 16:00 Sodium Bicarbonate 325 Mg Tab FEEDTUBE PRN PRN For Clogged Feeding Tube Sodium Chloride 10 ml 08/17/21 10:00 09/06/21 21:24 Sodium Chloride 0.9% 10 Ml Flush Syringe IV 10 ml BID HAM Administration Sodium Chloride 10 ml 08/17/21 04:09 08/19/21 02:59 Sodium Chloride 0.9% 10 Ml Flush Syringe IV 10 ml PRN PRN Administration LINE FLUSH Zolpidem Tartrate 5 mg 09/05/21 22:00 09/06/21 21:23 Zolpidem 5 Mg Tab PO 5 mg QHS PRN Administration Sleep
[2021-09-07] MEDS: CITALOPRAM 20 MG TAB PO SCH (12:55)
[2021-09-07] MEDS: levETIRAcetam 500 MG TAB PO SCH (12:55)
[2021-09-07] MEDS: ASPIRIN 325 MG TAB FEEDTUBE SCH (12:55)
[2021-09-07] MEDS: diphenhydrAMINE 25 MG CAP PO PRN ×2 (12:55→21:10)
[2021-09-07] MEDS: FAMOTIDINE 20 MG TAB FEEDTUBE SCH (12:56)
[2021-09-07] MEDS: INSULIN GLARGINE 100 UNITS/ML SUB-Q SCH ×2 (12:56→21:08)
[2021-09-07] MEDS: FLUCONAZOLE 100 MG/10 ML ORAL SYRINGE FEEDTUBE SCH (13:04)
--- NOTE | 2021-09-07 16:06 | Progress Note ---
Assessment and Plan Assessment and plan: #Right upper extremity AV graft thrombosis #End Stage Renal Disease requiring hemodialysis -s/p AVF declotting 08/26 via IR/Vascular surgery -s/p vascular surgery/ thrombectomy of right arm AV loop graft. -temporary vasc cath removed 08/26 -continue HD per Nephro -avoid nephrotoxic medications; Renally dose medications #DKA (Diabetic Ketoacidosis)-resolved #Type II diabetes, insulin dependent -s/p insulin gtt -Patient with hypoglycemia secondary to reduced oral intake; continue tube feeds -Hgb A1C 10.2% -continue lantus 22U BID, continue SSI -goal glucose 140-180 while inpatient; currently controlled #Sepsisruled out -patient afebrile, WBC normalizing -Blood cultures with NGTD x 5days -s/p IV abx, none needed due to no infectious process found -ID consulted, signed off #Acute Metabolic Encephalopathy-improving #H/o CVA (cerebral infarction) with left-sided deficits -Multifactorial, DKA vs azotemia vs infectious process -Awake and tracking and following commands this morning -CT head and MRI brain noted with no acute abnormality -Neurology consulted, appreciated recommendations -c/f seizure, continue Keppra -PRN Haldol for agitation -Fall and safety precaution -Aspiration precaution -Frequent reorientation -Avoid benzodiazepine to reduce the possibility of delirium -Maintenance of sleep-wake cycle -PT/OT/Speech ordered -Psychiatry consulted: Patient Celexa increased #Hypertension -continue home BP medications -PRN Hydralazine and Labetalol for SBP greater than 160 #Elevated D-Dimer #H/o DVT -BLE doppler showed no evidence for acute DVT in either lower extremity. 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 -Per patient's mother, patient has been off coumadin for a couple of years -Continue Heparin SubQ -low suspicion for PE, will order V/Q scan if return of fever, dyspnea -Patient might benefit from PO AC at discharge, wild defer to PCP #Hypothyroidism -continue synthroid #Dysphagia-improving -Patient failed initial speech eval due to mental status -continue TF for now, Nutrition following Gastroenterology consulted for PEG tube placement; pending recs #GI/ DVT Prophylaxis -PPI- Pepcid -heparin SubQ -SCDs to bilateral lower extremities while in bed #Discharge planning - Patient is pending PEG tube placement in order to be discharged to rehab. - Case management has been made aware. Disposition Plan: Continue medical management Total Time Spent with Patient (Minutes): 45 minutes History Interval history: No acute events overnight. Hospitalist Physical - Constitutional Vitals: Temp Pulse Resp BP Pulse Ox 98.7 F 60 18 113/62 99 09/07/21 12:25 09/07/21 12:25 09/07/21 12:25 09/07/21 12:25 09/07/21 12:25 General appearance: Present: no acute distress, well-nourished - EENT Eyes: Present: PERRL, EOM intact ENT: hearing intact, clear oral mucosa, dentition normal, other (NG tube in place) - Neck Neck: Present: supple, normal ROM - Respiratory Respiratory effort: normal Respiratory: bilateral: CTA - Cardiovascular Rhythm: regular Heart Sounds: Present: S1 & S2 - Extremities Extremities: no ischemia, pulses intact, pulses symmetrical, No edema, normal temperature, normal color Peripheral Pulses: within normal limits - Abdominal General gastrointestinal: soft, non-tender, non-distended, normal bowel sounds - Integumentary Integumentary: Present: clear, warm, dry - Psychiatric Psychiatric: cooperative - Neurologic Neurologic: CNII-XII intact - Allied Health Allied health notes reviewed: nursing Results - Labs CBC & Chem 7: 09/06/21 05:39 09/06/21 05:39 Labs: Laboratory Last Values WBC 11.0 K/mm3 (4.5-11.0) 09/06/21 05:39 RBC 4.18 M/mm3 (3.65-5.03) 09/06/21 05:39 Hgb 11.4 gm/dl (10.1-14.3) 09/06/21 05:39 Hct 35.4 % (30.3-42.9) 09/06/21 05:39 MCV 85 fl (79-97) 09/06/21 05:39 MCH 27 pg (28-32) L 09/06/21 05:39 MCHC 32 % (30-34) 09/06/21 05:39 RDW 20.2 % (13.2-15.2) H 09/06/21 05:39 Plt Count 177 K/mm3 (140-440) 09/06/21 05:39 Lymph % (Auto) 19.1 % (13.4-35.0) 09/06/21 05:39 [place] % (Auto) 9.2 % (0.0-7.3) H 09/06/21 05:39 Eos % (Auto) 1.9 % (0.0-4.3) 09/06/21 05:39 Baso % (Auto) 0.9 % (0.0-1.8) 09/06/21 05:39 Lymph # (Auto) 2.1 K/mm3 (1.2-5.4) 09/06/21 05:39 [place] # (Auto) 1.0 K/mm3 (0.0-0.8) H 09/06/21 05:39 Eos # (Auto) 0.2 K/mm3 (0.0-0.4) 09/06/21 05:39 Baso # (Auto) 0.1 K/mm3 (0.0-0.1) 09/06/21 05:39 Seg Neutrophils % 68.9 % (40.0-70.0) 09/06/21 05:39 Seg Neutrophils # 7.6 K/mm3 (1.8-7.7) 09/06/21 05:39 PT 14.0 Sec. (12.2-14.9) 08/23/21 22:59 INR 0.97 (0.87-1.13) 08/23/21 22:59 APTT 27.9 Sec. (24.2-36.6) 08/23/21 22:59 D-Dimer 2695.37 ng/mlDDU (0-234) H 08/17/21 14:40 Sodium 137 mmol/L (137-145) 09/06/21 05:39 Potassium 4.0 mmol/L (3.6-5.0) 09/06/21 05:39 Chloride 94.2 mmol/L (98-107) L 09/06/21 05:39 Carbon Dioxide 27 mmol/L (22-30) 09/06/21 05:39 Anion Gap 20 mmol/L 09/06/21 05:39 BUN 35 mg/dL (7-17) H 09/06/21 05:39 Creatinine 6.3 mg/dL (0.6-1.2) H 09/06/21 05:39 Estimated GFR 9 ml/min 09/06/21 05:39 BUN/Creatinine Ratio 6 % 09/06/21 05:39 Glucose 167 mg/dL (65-100) H 09/06/21 05:39 POC Glucose 146 mg/dL (70-105) H 09/07/21 12:57 Hemoglobin A1c 10.2 % (4-6) H 08/18/21 04:56 Lactic Acid 1.70 mmol/L (0.7-2.0) 08/17/21 02:07 Calcium 10.8 mg/dL (8.4-10.2) H 09/06/21 05:39 Phosphorus 5.30 mg/dL (2.5-4.5) H 09/06/21 05:39 Magnesium 2.50 mg/dL (1.7-2.3) H 09/06/21 05:39 Total Bilirubin 0.40 mg/dL (0.1-1.2) 09/06/21 05:39 AST 14 units/L (5-40) 09/06/21 05:39 ALT 7 units/L (7-56) 09/06/21 05:39 Alkaline Phosphatase 154 units/L (35-129) H 09/06/21 05:39 NT-Pro-B Natriuret Pep 81082 pg/mL (0-450) H 08/17/21 02:07 Total Protein 8.4 g/dL (6.3-8.2) H 09/06/21 05:39 Albumin 3.8 g/dL (3.9-5) L 09/06/21 05:39 Albumin/Globulin Ratio 0.8 % 09/06/21 05:39 Triglycerides 128 mg/dL (2-149) 08/17/21 14:40 Cholesterol 128 mg/dL (50-199) 08/17/21 14:40 LDL Cholesterol Direct 69 mg/dL (50-130) 08/17/21 14:40 HDL Cholesterol 30 mg/dL (40-59) L 08/17/21 14:40 Cholesterol/HDL Ratio 4.26 % 08/17/21 14:40 TSH 5.080 mlU/mL (0.270-4.200) H 08/17/21 02:07 Salicylates < 0.3 mg/dL (2.8-20.0) L 08/17/21 02:07 Acetaminophen 5.0 ug/mL (10.0-30.0) L 08/17/21 02:07 Plasma/Serum Alcohol < 0.01 % (0-0.07) 08/17/21 02:07 Coronavirus (PCR) Negative (Negative) 09/01/21 09:52 SARS-CoV-2 (PCR) Negative (Negative) 08/17/21 09:12 Hepatitis A IgM Ab Non-reactive (NonReactive) 08/17/21 14:40 Hep Bs Antigen Non-reactive (Negative) 08/17/21 14:40 Hep B Core IgM Ab Non-reactive (NonReactive) 08/17/21 14:40 Hepatitis C Antibody Non-reactive (NonReactive) 08/17/21 14:40 Blood Type O POSITIVE 08/17/21 17:43 Antibody Screen Negative 08/17/21 17:43 Tomas/IV: Voiding Method Incontinent Active Medications - Current Medications Current Medications: Generic Name Dose Route Start Last Admin Trade Name Freq PRN Reason Stop Dose Admin Acetaminophen 650 mg 08/17/21 07:50 08/30/21 20:25 Acetaminophen 325 Mg Tab PO 650 mg Q6H PRN Administration Pain, Mild (1-3) Acetaminophen 650 mg 08/17/21 08:17 08/17/21 14:49 Acetaminophen 650 Mg Rect Supp [place] 650 mg Q4H PRN Administration Pain, Mild (1-3) Albuterol 2.5 mg 08/29/21 20:00 Albuterol 2.5 Mg/3 Ml Nebu IH Q4HRT PRN Shortness Of Breath Amlodipine Besylate 10 mg 08/22/21 11:00 09/07/21 11:03 Amlodipine 10 Mg Tab PO Not Given QDAY HAM Lipase/Protease/Amylase 1 each 08/26/21 16:00 Lipase 10,500/Protease 25,000/Amylase 43,750 (Units) Dr Lopez FEEDTUBE PRN PRN For Clogged Feeding Tube Aspirin 325 mg 08/22/21 10:00 09/07/21 12:55 Aspirin 325 Mg Tab FEEDTUBE 325 mg QDAY HAM Administration Atorvastatin Calcium 40 mg 08/29/21 22:00 09/06/21 21:22 Atorvastatin 40 Mg Tab PO 40 mg QHS HAM Administration Citalopram Hydrobromide 40 mg 09/04/21 10:00 09/07/21 12:55 Citalopram 20 Mg Tab PO 40 mg QDAY HAM Administration Clonidine HCl 0.1 mg 08/29/21 20:00 09/07/21 13:00 Clonidine 0.1 Mg Tab PO Not Given TID HAM Dextrose 50 ml 08/17/21 23:37 Dextrose 50% In Water (25gm) 50 Ml Syringe IV Q30MIN PRN Hypoglycemia Protocol Diphenhydramine HCl 25 mg 09/07/21 09:30 09/07/21 12:55 Diphenhydramine 25 Mg Cap PO 25 mg Q8H PRN Administration Itching Famotidine 20 mg 08/20/21 10:00 09/07/21 12:56 Famotidine 20 Mg Tab FEEDTUBE 20 mg QDAY HAM Administration Fluconazole 100 mg 09/05/21 14:00 09/07/21 13:04 Fluconazole 100 Mg/10 Ml Oral Syringe FEEDTUBE 09/10/21 14:01 100 mg Q24H HAM Administration Protocol Haloperidol Lactate 5 mg 08/19/21 12:00 09/01/21 11:41 Haloperidol Lactate 5 Mg/1 Ml Inj IV 5 mg Q6H PRN Administration Agitation Heparin Sodium (Porcine) 5,000 unit 08/17/21 06:00 09/07/21 13:00 Heparin 5,000 Unit/1 Ml Vial SUB-Q 5,000 unit Q8HR HAM Administration Heparin Sodium (Porcine) 3,000 unit 08/17/21 07:41 08/31/21 10:38 Heparin 10,000 Units/10 Ml Vial IV 3,000 unit KATI PRN Administration hemodialysis Hydralazine HCl 100 mg 08/17/21 09:00 09/07/21 13:00 Hydralazine 100 Mg Tab PO Not Given TID HAM Hydralazine HCl 10 mg 08/17/21 07:56 08/25/21 05:19 Hydralazine 20 Mg/1 Ml Inj IV 10 mg Q4HR PRN Administration Hypertension Hydromorphone HCl 0.25 mg 08/17/21 07:50 09/07/21 06:32 Hydromorphone 0.5 Mg/0.5 Ml Inj IV 0.25 mg Q4H PRN Administration Pain, Moderate (4-6) Hydroxyzine Pamoate 25 mg 09/03/21 14:50 Hydroxyzine Pamoate 25 Mg Cap PO Q6H PRN Anxiety Sodium Chloride 100 mls @ 999 mls/hr 09/06/21 10:52 Nacl 0.9% IV KATI PRN Hypotension Insulin Glargine 22 units 09/02/21 10:00 09/07/21 12:56 Insulin Glargine 100 Units/Ml SUB-Q 22 units BID HAM Administration Insulin Human Lispro 0 unit 08/18/21 00:00 09/07/21 12:58 Insulin Lispro 100 Unit/Ml SUB-Q Not Given Q6HR [facility] Protocol Levetiracetam 500 mg 08/20/21 10:00 09/07/21 12:55 Levetiracetam 500 Mg Tab PO 500 mg DAILY HAM Administration Levothyroxine Sodium 125 mcg 08/22/21 06:00 09/07/21 06:29 Levothyroxine 125 Mcg Tab PO 125 mcg QAM@0600 HAM Administration Lidocaine HCl 15 ml 09/05/21 14:00 09/07/21 13:00 Magic Mouthwash 30ml PO 15 ml TID [facility] Administration Losartan Potassium 50 mg 08/17/21 10:00 09/07/21 11:04 Losartan 50 Mg Tab PO Not Given QDAY HAM Magnesium Hydroxide 30 ml 08/17/21 04:09 08/23/21 23:56 Magnesium Hydroxide (Mom) Oral Liqd Udc PO 30 ml Q4H PRN Administration Constipation Metoprolol Tartrate 100 mg 08/20/21 11:00 09/07/21 11:04 Metoprolol Tartrate 100 Mg Tab PO Not Given BID HAM Ondansetron HCl 4 mg 08/17/21 04:09 Ondansetron 4 Mg/2 Ml Inj IV Q8H PRN Nausea And Vomiting Phenol 1 spray 09/04/21 09:54 09/06/21 10:13 Phenol 1.4% 177 Ml Bottle MM 1 spray PRN PRN Administration Sore Throat Sevelamer Carbonate 2,400 mg 09/06/21 11:30 09/07/21 12:55 Sevelamer Carbonate 800 Mg Tab PO 2,400 mg AC HAM Administration Simple Syrup 15 ml 08/26/21 16:00 09/04/21 00:20 Simple Syrup 15 Ml FEEDTUBE 15 ml PRN PRN Administration Hypoglycemia Simple Syrup 30 ml 08/26/21 16:00 Simple Syrup 15 Ml FEEDTUBE PRN PRN Hypoglycemia Sodium Bicarbonate 325 mg 08/26/21 16:00 Sodium Bicarbonate 325 Mg Tab FEEDTUBE PRN PRN For Clogged Feeding Tube Sodium Chloride 10 ml 08/17/21 10:00 09/07/21 12:57 Sodium Chloride 0.9% 10 Ml Flush Syringe IV 10 ml BID HAM Administration Sodium Chloride 10 ml 08/17/21 04:09 08/19/21 02:59 Sodium Chloride 0.9% 10 Ml Flush Syringe IV 10 ml PRN PRN Administration LINE FLUSH Zolpidem Tartrate 5 mg 09/05/21 22:00 09/06/21 21:23 Zolpidem 5 Mg Tab PO 5 mg QHS PRN Administration Sleep Nutrition/Malnutrition Assess - Dietary Evaluation Nutrition/Malnutrition Findings: Nutrition Notes Start: 08/17/21 1 2:51 Freq: Status: Active Protocol: Document 09/05/21 13:01 GABRIEL (Rec: 09/05/21 13:04 GABRIEL [id number]) Nutrition Notes Initial or Follow up Reassessment Current Diagnosis CKD (stage V CKD),Diabetes, Hypertension,Stroke Other Pertinent Diagnosis ESRD+HD, R-UE Thrombectomy & AVF, Metabolic Encephalopathy. Current Diet TF-Nepro @ 40 ml/hr (since L 09/03). Labs/Tests 09/04: Cl 96.1, BUN 48, Crea 7 .8, Glu 102, Ca 10.4. Pertinent Medications 09/05: Levothyroxine, others nutritionally unremarkable. Height 5 ft 8 in Weight 77.8 kg [place] Body Weight (kg) 63.63 BMI 26.0 Weight change and time frame 0.5 Kg bodyt weight gain in 1 week reported. Weight Status Overweight Subjective/Other Information RD consult for routine F/U on Tf tolerance/continuation assessment. TF was discontinued and resumed during the week after FUNERAL DRIVER assessment and recommendation, and continues as initially prescribed, and well tolerated, according to RN notes. FUNERAL DRIVER note on 09/02/21 11:27: Patient demonstrates diminished cognitive function and is holding food with noted spillage from the oral cavity . Much effort with digital manipulatIon of the larynx was conducted to attain initiation of the swallow. Once the swallow was initiated which was over five to seven minutes, she demonstrated good laryngeal excursion with no evidence of aspiration. Patient is currently not appropriate for the mechanical soft diet which was recommended the previous day, due to a change in her current mentation. The anatomical structures are intact; however , she is at risk for aspiration,malnutrition and dehydration secondary to prolonged bolus holding. Recommend an alternative method of nutrition to support her nutritional needs as her mentation waxes and wanes. No further recommendations. Pr is on Room Air, O2 saturation @ 97%, according to Physical Assessment History notes. Pt has missing teeth, according to Physical Assessment History notes. Pt will need to demonstarte adquate swallowing or will need PEG tube before discharge , according to Progress notes. Percent of energy/protein needs met: Prescribed TF-Nepro w/ CARBSTEADY @ 40 ml/hr provides for energy/protein needs (1, 728 Kcal/78 g) during LOS, 97% Kcal; 83% AA. Burn Absent Trauma Absent GI Symptoms None Difficulty In Swallowing Food Allergy No Skin Integrity/Comment Assessment WNL. Current % PO Other Minimum of two criteria No Fluid Accumulation N/A Reduced Human Services Instructor Strength N/A (non-severe) Protein-Calorie Malnutrition N\A #1 Nutrition Diagnosis Inadequate oral intake Diagnosis Progress(for reassessment Continues documentation) Is patient on ventilator? No Is Patient Ambulatory and/or Out of Bed No REE-([facility]-confined to bed) [phone] Calculation Used for Recommendations [facility] Additional Notes Protein: >1.2 g/Kg AdjBW; >94 g/day. Fluids: 1 ml/Kcal, or as per MD. Nutrition Intervention Nutrition Support: Continue TF-Nepro w/CARBSTEADY @ 40 ml/hr. Flush: 150 ml water Q 4 hr, or as per MD. Kcal 1,728 Protein (gm) 78 Carbohydrates (gm) 155 Fat (gm) 92 Fluid (mL) 698 Fiber (gm) 12 % RDI: 97% Kcal; 83% AA. Goal #1 Provide at least 75% of energy /protein needs through Enteral Feeding during LOS. Follow-Up By: 09/12/21 Additional Comments Continue monitoring TF tolerance, FUNERAL DRIVER evaluation, and BM.
[2021-09-07] MEDS: ONDANSETRON 4 MG/2 ML INJ IV PRN (17:51)
[2021-09-07] MEDS: ZOLPIDEM 5 MG TAB PO PRN (21:08)
[2021-09-07] MEDS: PROMETHAZINE 25 MG RECT SUPP PR PRN (21:08)
[2021-09-08] MEDS: LEVOTHYROXINE 125 MCG TAB PO SCH (06:01)
[2021-09-08] MEDS: HEPARIN 5,000 UNIT/1 ML VIAL SUB-Q SCH ×3 (06:01→22:04)
[2021-09-08 06:03] LABS: Basophils # (Auto) 0.1 K/mm3 (0.0-0.1); Eosinophils # (Auto) 0.3 K/mm3 (0.0-0.4); Eosinophils % (Auto) 3.4 % (0.0-4.3); Hematocrit 34.6 % (30.3-42.9); Hemoglobin 11.1 gm/dl (10.1-14.3); Lymphocytes # (Auto) 2.4 K/mm3 (1.2-5.4); Lymphocytes % (Auto) 28.6 % (13.4-35.0); Mean Corpuscular HGB Conc 32 % (30-34); Mean Corpuscular Volume 86 fl (79-97); Monocytes # (Auto) 0.8 K/mm3 (0.0-0.8); Monocytes % (Auto) 9.3 % (0.0-7.3); Platelet Count 164 K/mm3 (140-440); Red Blood Count 4.03 M/mm3 (3.65-5.03)
[2021-09-08 06:04] LABS: Red Cell Distribution Width 20.3 % (13.2-15.2)
[2021-09-08 06:26] LABS: Albumin 3.6 g/dL (3.9-5); Calcium 10.8 mg/dL (8.4-10.2)
[2021-09-08] MEDS: INSULIN LISPRO 100 UNIT/ML SUB-Q SCH ×4 (06:41→22:00)
[2021-09-08] MEDS ORDERED: SODIUM CHLORIDE 0.9% 1000 ML 1,000 ML IV SCH (08:00)
[2021-09-08] MEDS: hydrALAZINE 100 MG TAB PO SCH ×4 (08:42→20:02)
[2021-09-08] MEDS: cloNIDine 0.1 MG TAB PO SCH ×4 (08:42→22:03)
[2021-09-08] MEDS: SEVELAMER CARBONATE 800 MG TAB PO SCH ×4 (08:42→17:38)
[2021-09-08] MEDS: HYDROmorphone 0.5 MG/0.5 ML INJ IV PRN ×2 (08:51→18:41)
[2021-09-08] MEDS: MAGIC MOUTHWASH 30ML PO SCH ×3 (08:52→20:03)
[2021-09-08] MEDS: METOPROLOL TARTRATE 100 MG TAB PO SCH ×2 (10:05→22:05)
[2021-09-08] MEDS: LOSARTAN 50 MG TAB PO SCH (10:05)
[2021-09-08] MEDS: FAMOTIDINE 20 MG TAB FEEDTUBE SCH (10:05)
[2021-09-08] MEDS: levETIRAcetam 500 MG TAB PO SCH (10:06)
[2021-09-08] MEDS: amLODIPine 10 MG TAB PO SCH (10:06)
[2021-09-08] MEDS: ASPIRIN 325 MG TAB FEEDTUBE SCH (10:06)
[2021-09-08] MEDS: CITALOPRAM 20 MG TAB PO SCH (10:06)
[2021-09-08] MEDS: INSULIN GLARGINE 100 UNITS/ML SUB-Q SCH ×2 (10:19→22:00)
--- NOTE | 2021-09-08 10:33 | Progress Note ---
Subjective - Reason for Consult Consult date: 09/08/21 Reason for consult: mental health evaluation - Chief Complaint Chief complaint: The patient was seen today. She presents with appropriate affect and reports doing well. She denies being depressed and states that her anxiety is well controlled with meds. She denies any current suicidal/homicidal ideation and denies hallucinations. REVIEW OF SYSTEMS Constitutional: Negative for weight loss ENT: Negative for stridor Respiratory: Negative for cough or hemoptysis All other systems reviewed and are negative MENTAL STATUS EXAMINATION General Appearance and Behavior: Age appropriate, wearing appropriate clothes, cooperative, polite with questioning, good eye contact Cooperation: cooperative Psychomotor Behavior: Psychomotor normal Mood: OK Affect and affective range: congruent with stated mood Thought Process: Goal directed Thought Content: Reality oriented Speech: Normal volume, and tone Suicidal Ideation: Denies Homicidal Ideation: Denies Hallucination: Denies Delusions: None elicited Impulse Control: Limited Insight and Judgment: Limited Memory: limited Attention:attentive Orientation: Alert and oriented Diagnoses: Unspecified anxiety disorder Hx of depression Treatment Plan Continue Celexa to 40mg po daily Continue Hydroxyzine 25mg po Q6hrs PRN for anxiety Medical: per primary Sitter: defer to primary Disposition: Do not recommend acute psychiatric inpatient treatment. Will sign off. Thanks Case staffed with Dr. Osman Medications and Allergies Mental Status Exam - Vital signs Last Vital Signs Temp 98.8 F 09/08/21 07:50 Pulse 65 09/08/21 07:50 Resp 16 09/08/21 04:41 BP 128/57 09/08/21 10:06 Pulse Ox 92 09/08/21 07:50
--- NOTE | 2021-09-08 10:51 | Gastroenterology Consultation ---
<CATERINA DALE - Last Filed: 09/08/21 11:21> History of Present Illness - Reason for Consult Consult date: 09/08/21 PEG placement - History of Present Illness Ms. Roman is a 41 y/o F who GI has been consulted on to for possible PEG placement. On exam pt currently has NG tube. Nurse reports that pt in not receiving feeds through it, but they are passing meds through. Nurse reports that the only thing pt has been unable to swallow are her meds. Unclear if this is d/t inability to swallow or pt not wanting to swallow meds. According to speech, pt has failed her swallow test, but test was done when pt was altered. Today pt is ax0x4 and tells me that she is swallowing/eating w/o difficulty. Pt is able to make decisions and does not want a PEG tube placed. Past History Past Medical History: dialysis, DVT, ESRD, hypertension, migraines, stroke Past Surgical History: No surgical history Social history: no significant social history Family history: diabetes, hypertension Medications and Allergies Allergies Allergy/AdvReac Type Severity Reaction Status Date / Time vancomycin AdvReac Hives Verified 04/02/13 10:16 Home Medications Medication Instructions Recorded Confirmed Last Taken Type Hydralazine HCl [hydrALAZINE] 100 mg PO BID 04/02/13 08/17/21 04/02/13 08:00 History Aspirin/Dipyridamole [Aggrenox] 1 cap PO BID #60 capsule 04/10/13 08/17/21 Unkno wn Rx Cinacalcet [Sensipar] 60 mg PO QDAY 08/17/21 08/17/21 Unknown History Citalopram [celeXA] 20 mg PO QDAY 08/17/21 08/17/21 Unknown History Gabapentin [Neurontin] 100 mg PO Q8HR 08/17/21 08/17/21 Unknown History Insulin Glargine,Hum.rec.anlog 55 unit SQ BID 08/17/21 08/17/21 Unknown History [Lantus Solostar] Promethazine [Phenergan] 25 mg PO Q6HR PRN 08/17/21 08/17/21 Unknown History Sevelamer Carbonate [Renvela] 800 mg PO TIDWM 08/17/21 08/17/21 Unknown History amLODIPine [Norvasc] 10 mg PO DAILY 08/17/21 08/17/21 Unknown History carvediloL [Coreg] 25 mg PO BID 08/17/21 08/17/21 Unknown History Albuterol Mdi (or & Nicu Only) 2 puff IH QID PRN 08/29/21 08/29/21 Unknown History [ProAir HFA Inhaler] AtorvaSTATin [Lipitor] 40 mg PO QHS 08/29/21 08/29/21 Unknown History Cetirizine HCl [Zyrtec 10mg tab] 10 mg PO QDAY 08/29/21 08/29/21 Unknown History Ferric Citrate (Nf) [Auryxia] 210 mg PO TID 08/29/21 08/29/21 Unknown History Fluticasone [Flonase] 2 spray NS QDAY PRN 08/29/21 08/29/21 Unknown History Furosemide [Lasix TAB] 40 mg PO QDAY 08/29/21 08/29/21 Unknown History Insulin Aspart (Nf) [NovoLOG 15 units SQ TIDAC 08/29/21 08/29/21 Unknown History Flexpen] Metoclopramide [Reglan] 10 mg PO HS 08/29/21 08/29/21 Unknown History Pantoprazole [Protonix] 40 mg PO QDAY 08/29/21 08/29/21 Unknown History Prochlorperazine Maleate 10 mg PO QDAY PRN 08/29/21 08/29/21 Unknown History [Compazine] Sucroferric Oxyhydroxide(Nf) 500 mg PO TIDWM 08/29/21 08/29/21 Unknown History [Velphoro (Nf)] cloNIDine [Catapres] 0.1 mg PO TID 08/29/21 08/29/21 Unknown History Active Meds: Active Medications Acetaminophen (Acetaminophen 325 Mg Tab) 650 mg PO Q6H PRN PRN Reason: Pain, Mild (1-3) Last Admin: 08/30/21 20:25 Dose: 650 mg Acetaminophen (Acetaminophen 650 Mg Rect Supp) 650 mg MO Q4H PRN PRN Reason: Pain, Mild (1-3) Last Admin: 08/17/21 14:49 Dose: 650 mg Albuterol (Albuterol 2.5 Mg/3 Ml Nebu) 2.5 mg IH Q4HRT PRN PRN Reason: Shortness Of Breath Amlodipine Besylate (Amlodipine 10 Mg Tab) 10 mg PO QDAY [facility] Last Admin: 09/08/21 10:06 Dose: 10 mg Lipase/Protease/Amylase (Lipase 10,500/Protease 25,000/Amylase 43,750 (Units) Dr Cap) 1 each FEEDTUBE PRN PRN PRN Reason: For Clogged Feeding Tube Aspirin (Aspirin 325 Mg Tab) 325 mg FEEDTUBE QDAY [facility] Last Admin: 09/08/21 10:06 Dose: 325 mg Atorvastatin Calcium (Atorvastatin 40 Mg Tab) 40 mg PO QHS [facility] Last Admin: 09/07/21 21:08 Dose: 40 mg Citalopram Hydrobromide (Citalopram 20 Mg Tab) 40 mg PO QDAY [facility] Last Admin: 09/08/21 10:06 Dose: 40 mg Clonidine HCl (Clonidine 0.1 Mg Tab) 0.1 mg PO TID [facility] Last Admin: 09/08/21 08:42 Dose: 0.1 mg Dextrose (Dextrose 50% In Water (25gm) 50 Ml Syringe) 50 ml IV Q30MIN PRN; Protocol PRN Reason: Hypoglycemia Diphenhydramine HCl (Diphenhydramine 25 Mg Cap) 25 mg PO Q8H PRN PRN Reason: Itching Last Admin: 09/07/21 21:10 Dose: 25 mg Famotidine (Famotidine 20 Mg Tab) 20 mg FEEDTUBE QDAY [facility] Last Admin: 09/08/21 10:05 Dose: 20 mg Fluconazole (Fluconazole 100 Mg/10 Ml Oral Syringe) 100 mg FEEDTUBE Q24H [facility]; Protocol Stop: 09/10/21 14:01 Last Admin: 09/07/21 13:04 Dose: 100 mg Haloperidol Lactate (Haloperidol Lactate 5 Mg/1 Ml Inj) 5 mg IV Q6H PRN PRN Reason: Agitation Last Admin: 09/01/21 11:41 Dose: 5 mg Heparin Sodium (Porcine) (Heparin 5,000 Unit/1 Ml Vial) 5,000 unit SUB-Q Q8HR [facility] Last Admin: 09/08/21 06:01 Dose: 5,000 unit Heparin Sodium (Porcine) (Heparin 10,000 Units/10 Ml Vial) 3,000 unit IV KATI PRN PRN Reason: hemodialysis Last Admin: 08/31/21 10:38 Dose: 3,000 unit Hydralazine HCl (Hydralazine 100 Mg Tab) 100 mg PO TID [facility] Last Admin: 09/08/21 08:42 Dose: 100 mg Hydralazine HCl (Hydralazine 20 Mg/1 Ml Inj) 10 mg IV Q4HR PRN PRN Reason: Hypertension Last Admin: 08/25/21 05:19 Dose: 10 mg Hydromorphone HCl (Hydromorphone 0.5 Mg/0.5 Ml Inj) 0.25 mg IV Q4H PRN PRN Reason: Pain, Moderate (4-6) Last Admin: 09/08/21 08:51 Dose: 0.25 mg Hydroxyzine Pamoate (Hydroxyzine Pamoate 25 Mg Cap) 25 mg PO Q6H PRN PRN Reason: Anxiety Sodium Chloride (Nacl 0.9%) 100 mls @ 999 mls/hr IV KATI PRN PRN Reason: Hypotension Sodium Chloride (Nacl 0.9% 1000 Ml) 1,000 mls @ 75 mls/hr IV DIRECT [facility] Stop: 09/09/21 21:19 Insulin Glargine (Insulin Glargine 100 Units/Ml) 22 units SUB-Q BID [facility] Last Admin: 09/08/21 10:19 Dose: 22 units Insulin Human Lispro (Insulin Lispro 100 Unit/Ml) 0 unit SUB-Q Q6HR [facility]; Protocol Last Admin: 09/08/21 06:41 Dose: Not Given Levetiracetam (Levetiracetam 500 Mg Tab) 500 mg PO DAILY [facility] Last Admin: 09/08/21 10:06 Dose: 500 mg Levothyroxine Sodium (Levothyroxine 125 Mcg Tab) 125 mcg PO QAM@0600 [facility] Last Admin: 09/08/21 06:01 Dose: 125 mcg Lidocaine HCl (Magic Mouthwash 30ml) 15 ml PO TID [facility] Last Admin: 09/08/21 08:52 Dose: 15 ml Losartan Potassium (Losartan 50 Mg Tab) 50 mg PO QDAY [facility] Last Admin: 09/08/21 10:05 Dose: 50 mg Magnesium Hydroxide (Magnesium Hydroxide (Mom) Oral Liqd Udc) 30 ml PO Q4H PRN PRN Reason: Constipation Last Admin: 08/23/21 23:56 Dose: 30 ml Metoprolol Tartrate (Metoprolol Tartrate 100 Mg Tab) 100 mg PO BID [facility] Last Admin: 09/08/21 10:05 Dose: 100 mg Ondansetron HCl (Ondansetron 4 Mg/2 Ml Inj) 4 mg IV Q8H PRN PRN Reason: Nausea And Vomiting Last Admin: 09/07/21 17:51 Dose: 4 mg Phenol (Phenol 1.4% 177 Ml Bottle) 1 spray MM PRN PRN PRN Reason: Sore Throat Last Admin: 09/06/21 10:13 Dose: 1 spray Promethazine HCl (Promethazine 25 Mg Rect Supp) 25 mg MO Q6H PRN PRN Reason: Nausea And Vomiting Last Admin: 09/07/21 21:08 Dose: 25 mg Sevelamer Carbonate (Sevelamer Carbonate 800 Mg Tab) 2,400 mg PO [facility] Last Admin: 09/08/21 08:42 Dose: Not Given Simple Syrup (Simple Syrup 15 Ml) 15 ml FEEDTUBE PRN PRN PRN Reason: Hypoglycemia Last Admin: 09/04/21 00:20 Dose: 15 ml Simple Syrup (Simple Syrup 15 Ml) 30 ml FEEDTUBE PRN PRN PRN Reason: Hypoglycemia Sodium Bicarbonate (Sodium Bicarbonate 325 Mg Tab) 325 mg FEEDTUBE PRN PRN PRN Reason: For Clogged Feeding Tube Sodium Chloride (Sodium Chloride 0.9% 10 Ml Flush Syringe) 10 ml IV BID [facility] Last Admin: 09/08/21 10:07 Dose: 10 ml Sodium Chloride (Sodium Chloride 0.9% 10 Ml Flush Syringe) 10 ml IV PRN PRN PRN Reason: LINE FLUSH Last Admin: 08/19/21 02:59 Dose: 10 ml Zolpidem Tartrate (Zolpidem 5 Mg Tab) 5 mg PO QHS PRN PRN Reason: Sleep Last Admin: 09/07/21 21:08 Dose: 5 mg Review of Systems - Review of Systems All systems: negative (pt states no difficulty with swallowing) Exam - Constitutional Vital Signs: Temp Pulse Resp BP Pulse Ox 98.8 F 65 16 128/57 92 09/08/21 07:50 09/08/21 07:50 09/08/21 04:41 09/08/21 10:06 09/08/21 07:50 General appearance: no acute distress - EENT ENT: hearing intact - Gastrointestinal General gastrointestinal: Present: non-distended - Neurologic Neurological: alert and oriented x3 - Psychiatric Psychiatric: appropriate mood/affect, intact judgment & insight, cooperative - Labs CBC & Chem 7: 09/08/21 05:31 09/08/21 05:31 Lab Results: Laboratory Results - last 24 hr 09/07/21 09/07/21 09/07/21 12:57 16:57 23:34 WBC RBC Hgb Hct MCV MCH MCHC RDW Plt Count Lymph % (Auto) [place] % (Auto) Eos % (Auto) Baso % (Auto) Lymph # (Auto) [place] # (Auto) Eos # (Auto) Baso # (Auto) Seg Neutrophils % Seg Neutrophils # Sodium Potassium Chloride Carbon Dioxide Anion Gap BUN Creatinine Estimated GFR BUN/Creatinine Ratio Glucose POC Glucose 146 H 157 H 88 Calcium Phosphorus Magnesium Total Bilirubin AST ALT Alkaline Phosphatase Total Protein Albumin Albumin/Globulin Ratio 09/08/21 09/08/21 09/08/21 05:31 05:31 06:05 WBC 8.3 RBC 4.03 Hgb 11.1 Hct 34.6 MCV 86 MCH 28 MCHC 32 RDW 20.3 H Plt Count 164 Lymph % (Auto) 28.6 [place] % (Auto) 9.3 H Eos % (Auto) 3.4 Baso % (Auto) 1.0 Lymph # (Auto) 2.4 [place] # (Auto) 0.8 Eos # (Auto) 0.3 Baso # (Auto) 0.1 Seg Neutrophils % 57.7 Seg Neutrophils # 4.8 Sodium 139 Potassium 3.9 Chloride 95.9 L Carbon Dioxide 29 Anion Gap 18 BUN 36 H Creatinine 6.5 H Estimated GFR 8 BUN/Creatinine Ratio 6 Glucose 78 POC Glucose 73 Calcium 10.8 H Phosphorus 5.30 H Magnesium 2.50 H Total Bilirubin 0.30 AST 13 ALT 6 L Alkaline Phosphatase 122 Total Protein 7.5 Albumin 3.6 L Albumin/Globulin Ratio 0.9 09/08/21 10:11 WBC RBC Hgb Hct MCV MCH MCHC RDW Plt Count Lymph % (Auto) [place] % (Auto) Eos % (Auto) Baso % (Auto) Lymph # (Auto) [place] # (Auto) Eos # (Auto) Baso # (Auto) Seg Neutrophils % Seg Neutrophils # Sodium Potassium Chloride Carbon Dioxide Anion Gap BUN Creatinine Estimated GFR BUN/Creatinine Ratio Glucose POC Glucose 106 H Calcium Phosphorus Magnesium Total Bilirubin AST ALT Alkaline Phosphatase Total Protein Albumin Albumin/Globulin Ratio Assessment and Plan 1. PEG placement - GI will hold off on PEG placement at this time as pt reports that she is swallowing w/o difficulty - pt does not want PEG - Recommend speech repeat swallow study now that pt is ax0x4 - If pt passes, NG can be removed and no need for PEG at this time - GI will sign off, please call back if needed <DARRIAN GARCIA - Last Filed: 09/08/21 12:56> Medications and Allergies Active Meds: Active Medications Acetaminophen (Acetaminophen 325 Mg Tab) 650 mg PO Q6H PRN PRN Reason: Pain, Mild (1-3) Last Admin: 08/30/21 20:25 Dose: 650 mg Acetaminophen (Acetaminophen 650 Mg Rect Supp) 650 mg MO Q4H PRN PRN Reason: Pain, Mild (1-3) Last Admin: 08/17/21 14:49 Dose: 650 mg Albuterol (Albuterol 2.5 Mg/3 Ml Nebu) 2.5 mg IH Q4HRT PRN PRN Reason: Shortness Of Breath Amlodipine Besylate (Amlodipine 10 Mg Tab) 10 mg PO QDAY [facility] Last Admin: 09/08/21 10:06 Dose: 10 mg Lipase/Protease/Amylase (Lipase 10,500/Protease 25,000/Amylase 43,750 (Units) Dr Lopez) 1 each FEEDTUBE PRN PRN PRN Reason: For Clogged Feeding Tube Aspirin (Aspirin 325 Mg Tab) 325 mg FEEDTUBE QDAY [facility] Last Admin: 09/08/21 10:06 Dose: 325 mg Atorvastatin Calcium (Atorvastatin 40 Mg Tab) 40 mg PO QHS [facility] Last Admin: 09/07/21 21:08 Dose: 40 mg Citalopram Hydrobromide (Citalopram 20 Mg Tab) 40 mg PO QDAY [facility] Last Admin: 09/08/21 10:06 Dose: 40 mg Clonidine HCl (Clonidine 0.1 Mg Tab) 0.1 mg PO TID [facility] Last Admin: 09/08/21 08:42 Dose: 0.1 mg Dextrose (Dextrose 50% In Water (25gm) 50 Ml Syringe) 50 ml IV Q30MIN PRN; Protocol PRN Reason: Hypoglycemia Diphenhydramine HCl (Diphenhydramine 25 Mg Cap) 25 mg PO Q8H PRN PRN Reason: Itching Last Admin: 09/08/21 12:36 Dose: 25 mg Famotidine (Famotidine 20 Mg Tab) 20 mg FEEDTUBE QDAY [facility] Last Admin: 09/08/21 10:05 Dose: 20 mg Fluconazole (Fluconazole 100 Mg/10 Ml Oral Syringe) 100 mg FEEDTUBE Q24H [facility]; Protocol Stop: 09/10/21 14:01 Last Admin: 09/07/21 13:04 Dose: 100 mg Haloperidol Lactate (Haloperidol Lactate 5 Mg/1 Ml Inj) 5 mg IV Q6H PRN PRN Reason: Agitation Last Admin: 09/01/21 11:41 Dose: 5 mg Heparin Sodium (Porcine) (Heparin 5,000 Unit/1 Ml Vial) 5,000 unit SUB-Q Q8HR [facility] Last Admin: 09/08/21 06:01 Dose: 5,000 unit Heparin Sodium (Porcine) (Heparin 10,000 Units/10 Ml Vial) 3,000 unit IV KATI PRN PRN Reason: hemodialysis Last Admin: 08/31/21 10:38 Dose: 3,000 unit Hydralazine HCl (Hydralazine 100 Mg Tab) 100 mg PO TID [facility] Last Admin: 09/08/21 08:42 Dose: 100 mg Hydralazine HCl (Hydralazine 20 Mg/1 Ml Inj) 10 mg IV Q4HR PRN PRN Reason: Hypertension Last Admin: 08/25/21 05:19 Dose: 10 mg Hydromorphone HCl (Hydromorphone 0.5 Mg/0.5 Ml Inj) 0.25 mg IV Q4H PRN PRN Reason: Pain, Moderate (4-6) Last Admin: 09/08/21 08:51 Dose: 0.25 mg Hydroxyzine Pamoate (Hydroxyzine Pamoate 25 Mg Cap) 25 mg PO Q6H PRN PRN Reason: Anxiety Sodium Chloride (Nacl 0.9% 1000 Ml) 1,000 mls @ 75 mls/hr IV DIRECT [facility] Stop: 09/09/21 21:19 Sodium Chloride (Nacl 0.9%) 100 mls @ 999 mls/hr IV KATI PRN PRN Reason: Hypotension Insulin Glargine (Insulin Glargine 100 Units/Ml) 22 units SUB-Q BID [facility] Last Admin: 09/08/21 10:19 Dose: 22 units Insulin Human Lispro (Insulin Lispro 100 Unit/Ml) 0 unit SUB-Q Q6HR [facility]; Protocol Last Admin: 09/08/21 11:34 Dose: Not Given Levetiracetam (Levetiracetam 500 Mg Tab) 500 mg PO DAILY [facility] Last Admin: 09/08/21 10:06 Dose: 500 mg Levothyroxine Sodium (Levothyroxine 125 Mcg Tab) 125 mcg PO QAM@0600 [facility] Last Admin: 09/08/21 06:01 Dose: 125 mcg Lidocaine HCl (Magic Mouthwash 30ml) 15 ml PO TID [facility] Last Admin: 09/08/21 08:52 Dose: 15 ml Losartan Potassium (Losartan 50 Mg Tab) 50 mg PO QDAY [facility] Last Admin: 09/08/21 10:05 Dose: 50 mg Magnesium Hydroxide (Magnesium Hydroxide (Mom) Oral Liqd Udc) 30 ml PO Q4H PRN PRN Reason: Constipation Last Admin: 08/23/21 23:56 Dose: 30 ml Metoprolol Tartrate (Metoprolol Tartrate 100 Mg Tab) 100 mg PO BID [facility] Last Admin: 09/08/21 10:05 Dose: 100 mg Ondansetron HCl (Ondansetron 4 Mg/2 Ml Inj) 4 mg IV Q8H PRN PRN Reason: Nausea And Vomiting Last Admin: 09/07/21 17:51 Dose: 4 mg Phenol (Phenol 1.4% 177 Ml Bottle) 1 spray MM PRN PRN PRN Reason: Sore Throat Last Admin: 09/06/21 10:13 Dose: 1 spray Promethazine HCl (Promethazine 25 Mg Rect Supp) 25 mg MO Q6H PRN PRN Reason: Nausea And Vomiting Last Admin: 09/07/21 21:08 Dose: 25 mg Sevelamer Carbonate (Sevelamer Carbonate 800 Mg Tab) 2,400 mg PO AC [facility] Last Admin: 09/08/21 12:29 Dose: 2,400 mg Simple Syrup (Simple Syrup 15 Ml) 15 ml FEEDTUBE PRN PRN PRN Reason: Hypoglycemia Last Admin: 09/04/21 00:20 Dose: 15 ml Simple Syrup (Simple Syrup 15 Ml) 30 ml FEEDTUBE PRN PRN PRN Reason: Hypoglycemia Sodium Bicarbonate (Sodium Bicarbonate 325 Mg Tab) 325 mg FEEDTUBE PRN PRN PRN Reason: For Clogged Feeding Tube Sodium Chloride (Sodium Chloride 0.9% 10 Ml Flush Syringe) 10 ml IV BID [facility] Last Admin: 09/08/21 10:07 Dose: 10 ml Sodium Chloride (Sodium Chloride 0.9% 10 Ml Flush Syringe) 10 ml IV PRN PRN PRN Reason: LINE FLUSH Last Admin: 08/19/21 02:59 Dose: 10 ml Zolpidem Tartrate (Zolpidem 5 Mg Tab) 5 mg PO QHS PRN PRN Reason: Sleep Last Admin: 09/07/21 21:08 Dose: 5 mg Reviewed/updated patient's home and current medications. Exam - Constitutional Vital Signs: Temp Pulse Resp BP Pulse Ox 98.8 F 62 18 128/57 98 09/08/21 07:50 09/08/21 12:00 09/08/21 10:00 09/08/21 10:06 09/08/21 10:00 - Labs CBC & Chem 7: 09/08/21 05:31 09/08/21 05:31 Lab Results: Laboratory Results - last 24 hr 09/07/21 09/07/21 09/07/21 12:57 16:57 23:34 WBC RBC Hgb Hct MCV MCH MCHC RDW Plt Count Lymph % (Auto) [place] % (Auto) Eos % (Auto) Baso % (Auto) Lymph # (Auto) [place] # (Auto) Eos # (Auto) Baso # (Auto) Seg Neutrophils % Seg Neutrophils # Sodium Potassium Chloride Carbon Dioxide Anion Gap BUN Creatinine Estimated GFR BUN/Creatinine Ratio Glucose POC Glucose 146 H 157 H 88 Calcium Phosphorus Magnesium Total Bilirubin AST ALT Alkaline Phosphatase Total Protein Albumin Albumin/Globulin Ratio 09/08/21 09/08/21 09/08/21 05:31 05:31 06:05 WBC 8.3 RBC 4.03 Hgb 11.1 Hct 34.6 MCV 86 MCH 28 MCHC 32 RDW 20.3 H Plt Count 164 Lymph % (Auto) 28.6 [place] % (Auto) 9.3 H Eos % (Auto) 3.4 Baso % (Auto) 1.0 Lymph # (Auto) 2.4 [place] # (Auto) 0.8 Eos # (Auto) 0.3 Baso # (Auto) 0.1 Seg Neutrophils % 57.7 Seg Neutrophils # 4.8 Sodium 139 Potassium 3.9 Chloride 95.9 L Carbon Dioxide 29 Anion Gap 18 BUN 36 H Creatinine 6.5 H Estimated GFR 8 BUN/Creatinine Ratio 6 Glucose 78 POC Glucose 73 Calcium 10.8 H Phosphorus 5.30 H Magnesium 2.50 H Total Bilirubin 0.30 AST 13 ALT 6 L Alkaline Phosphatase 122 Total Protein 7.5 Albumin 3.6 L Albumin/Globulin Ratio 0.9 09/08/21 09/08/21 10:11 11:24 WBC RBC Hgb Hct MCV MCH MCHC RDW Plt Count Lymph % (Auto) [place] % (Auto) Eos % (Auto) Baso % (Auto) Lymph # (Auto) [place] # (Auto) Eos # (Auto) Baso # (Auto) Seg Neutrophils % Seg Neutrophils # Sodium Potassium Chloride Carbon Dioxide Anion Gap BUN Creatinine Estimated GFR BUN/Creatinine Ratio Glucose POC Glucose 106 H 106 H Calcium Phosphorus Magnesium Total Bilirubin AST ALT Alkaline Phosphatase Total Protein Albumin Albumin/Globulin Ratio Assessment and Plan Patient seen and examined. I spent over 50% of time on management and care of the patient. discussed with pt's nurse, passed swallow study, consuming po intake and meds. will sign off, please call as needed.
[2021-09-08] MEDS ORDERED: SODIUM CHLORIDE 0.9% 100 ML IV PRN (11:17)
--- NOTE | 2021-09-08 11:17 | Progress Note ---
Assessment and Plan ESRD - HD in am HTN - F/u on meds Lytes - Low Ca bath on HD. F/u labs HD Access - S/p thrombectomy Rt arm AVF & stable Subjective Date of service: 09/08/21 Principal diagnosis: Possible Sepsis; DKA; AMS; h/o CVA left hemiparesis; ESRD on Dialysis; HTN Interval history: No new complaint Objective - Vital Signs Vital signs: Vital Signs - 12hr 09/07/21 09/07/21 09/08/21 23:21 23:27 00:00 Temperature 98 F Pulse Rate 66 60 Respiratory 16 18 Rate Blood Pressure 102/58 Blood Pressure 102/58 [Right] O2 Sat by Pulse 100 Oximetry 09/08/21 09/08/21 09/08/21 04:41 07:50 08:42 Temperature 98.8 F Pulse Rate 65 Respiratory 16 Rate Blood Pressure 136/62 128/67 128/67 Blood Pressure [Right] O2 Sat by Pulse 92 Oximetry 09/08/21 09/08/21 10:05 10:06 Temperature Pulse Rate Respiratory Rate Blood Pressure 128/57 128/57 Blood Pressure [Right] O2 Sat by Pulse Oximetry - General Appearance General appearance: other (Not in distress) EENT: PERRL, mucous membranes moist Neck: no JVD Respiratory: Present: Other (Good air entry) Cardiology: regular, S1S2 Gastrointestinal: other (DHT in place) Neurologic: other (Moves all limbs) - Lab 09/08/21 05:31 09/08/21 05:31 Most recent lab results Calcium 10.8 mg/dL (8.4-10.2) H 09/08/21 05:31 Phosphorus 5.30 mg/dL (2.5-4.5) H 09/08/21 05:31 Magnesium 2.50 mg/dL (1.7-2.3) H 09/08/21 05:31 Medications & Allergies - Medications Allergies/Adverse Reactions: Allergies vancomycin Adverse Reaction (Verified 04/02/13 10:16) Hives Home Medications: Home Medications Medication Instructions Recorded Confirmed Last Taken Type Hydralazine HCl [hydrALAZINE] 100 mg PO BID 04/02/13 08/17/21 04/02/13 08:00 History Aspirin/Dipyridamole [Aggrenox] 1 cap PO BID #60 capsule 04/10/13 08/17/21 Unknown Rx Cinacalcet [Sensipar] 60 mg PO QDAY 08/17/21 08/17/21 Unknown History Citalopram [celeXA] 20 mg PO QDAY 08/17/21 08/17/21 Unknown History Gabapentin [Neurontin] 100 mg PO Q8HR 08/17/21 08/17/21 Unknown History Insulin Glargine,Hum.rec.anlog 55 unit SQ BID 08/17/21 08/17/21 Unknown History [Lantus Solostar] Promethazine [Phenergan] 25 mg PO Q6HR PRN 08/17/21 08/17/21 Unknown History Sevelamer Carbonate [Renvela] 800 mg PO TIDWM 08/17/21 08/17/21 Unknown History amLODIPine [Norvasc] 10 mg PO DAILY 08/17/21 08/17/21 Unknown History carvediloL [Coreg] 25 mg PO BID 08/17/21 08/17/21 Unknown History Albuterol Mdi (or & Nicu Only) 2 puff IH QID PRN 08/29/21 08/29/21 Unknown History [ProAir HFA Inhaler] AtorvaSTATin [Lipitor] 40 mg PO QHS 08/29/21 08/29/21 Unknown History Cetirizine HCl [Zyrtec 10mg tab] 10 mg PO QDAY 08/29/21 08/29/21 Unknown History Ferric Citrate (Nf) [Auryxia] 210 mg PO TID 08/29/21 08/29/21 Unknown History Fluticasone [Flonase] 2 spray NS QDAY PRN 08/29/21 08/29/21 Unknown History Furosemide [Lasix TAB] 40 mg PO QDAY 08/29/21 08/29/21 Unknown History Insulin Aspart (Nf) [NovoLOG 15 units SQ TIDAC 08/29/21 08/29/21 Unknown History Flexpen] Metoclopramide [Reglan] 10 mg PO HS 08/29/21 08/29/21 Unknown History Pantoprazole [Protonix] 40 mg PO QDAY 08/29/21 08/29/21 Unknown History Prochlorperazine Maleate 10 mg PO QDAY PRN 08/29/21 08/29/21 Unknown History [Compazine] Sucroferric Oxyhydroxide(Nf) 500 mg PO TIDWM 08/29/21 08/29/21 Unknown History [Velphoro (Nf)] cloNIDine [Catapres] 0.1 mg PO TID 08/29/21 08/29/21 Unknown History Active Medications: Generic Name Dose Route Start Last Admin Trade Name Freq PRN Reason Stop Dose Admin Acetaminophen 650 mg 08/17/21 07:50 08/30/21 20:25 Acetaminophen 325 Mg Tab PO 650 mg Q6H PRN Administration Pain, Mild (1-3) Acetaminophen 650 mg 08/17/21 08:17 08/17/21 14:49 Acetaminophen 650 Mg Rect Supp MA 650 mg Q4H PRN Administration Pain, Mild (1-3) Albuterol 2.5 mg 08/29/21 20:00 Albuterol 2.5 Mg/3 Ml Nebu IH Q4HRT PRN Shortness Of Breath Amlodipine Besylate 10 mg 08/22/21 11:00 09/08/21 10:06 Amlodipine 10 Mg Tab PO 10 mg QDAY HAM Administration Lipase/Protease/Amylase 1 each 08/26/21 16:00 Lipase 10,500/Protease 25,000/Amylase 43,750 (Units) Dr Lopez FEEDTUBE PRN PRN For Clogged Feeding Tube Aspirin 325 mg 08/22/21 10:00 09/08/21 10:06 Aspirin 325 Mg Tab FEEDTUBE 325 mg QDAY HAM Administration Atorvastatin Calcium 40 mg 08/29/21 22:00 09/07/21 21:08 Atorvastatin 40 Mg Tab PO 40 mg QHS HAM Administration Citalopram Hydrobromide 40 mg 09/04/21 10:00 09/08/21 10:06 Citalopram 20 Mg Tab PO 40 mg QDAY HAM Administration Clonidine HCl 0.1 mg 08/29/21 20:00 09/08/21 08:42 Clonidine 0.1 Mg Tab PO 0.1 mg TID HAM Administration Dextrose 50 ml 08/17/21 23:37 Dextrose 50% In Water (25gm) 50 Ml Syringe IV Q30MIN PRN Hypoglycemia Protocol Diphenhydramine HCl 25 mg 09/07/21 09:30 09/07/21 21:10 Diphenhydramine 25 Mg Cap PO 25 mg Q8H PRN Administration Itching Famotidine 20 mg 08/20/21 10:00 09/08/21 10:05 Famotidine 20 Mg Tab FEEDTUBE 20 mg QDAY HAM Administration Fluconazole 100 mg 09/05/21 14:00 09/07/21 13:04 Fluconazole 100 Mg/10 Ml Oral Syringe FEEDTUBE 09/10/21 14:01 100 mg Q24H HAM Administration Protocol Haloperidol Lactate 5 mg 08/19/21 12:00 09/01/21 11:41 Haloperidol Lactate 5 Mg/1 Ml Inj IV 5 mg Q6H PRN Administration Agitation Heparin Sodium (Porcine) 5,000 unit 08/17/21 06:00 09/08/21 06:01 Heparin 5,000 Unit/1 Ml Vial SUB-Q 5,000 unit Q8HR HAM Administration Heparin Sodium (Porcine) 3,000 unit 08/17/21 07:41 08/31/21 10:38 Heparin 10,000 Units/10 Ml Vial IV 3,000 unit KATI PRN Administration hemodialysis Hydralazine HCl 100 mg 08/17/21 09:00 09/08/21 08:42 Hydralazine 100 Mg Tab PO 100 mg TID HAM Administration Hydralazine HCl 10 mg 08/17/21 07:56 08/25/21 05:19 Hydralazine 20 Mg/1 Ml Inj IV 10 mg Q4HR PRN Administration Hypertension Hydromorphone HCl 0.25 mg 08/17/21 07:50 09/08/21 08:51 Hydromorphone 0.5 Mg/0.5 Ml Inj IV 0.25 mg Q4H PRN Administration Pain, Moderate (4-6) Hydroxyzine Pamoate 25 mg 09/03/21 14:50 Hydroxyzine Pamoate 25 Mg Cap PO Q6H PRN Anxiety Sodium Chloride 100 mls @ 999 mls/hr 09/06/21 10:52 Nacl 0.9% IV KATI PRN Hypotension Sodium Chloride 1,000 mls @ 75 mls/hr 09/08/21 08:00 Nacl 0.9% 1000 Ml IV 09/09/21 21:19 DIRECT HAM Insulin Glargine 22 units 09/02/21 10:00 09/08/21 10:19 Insulin Glargine 100 Units/Ml SUB-Q 22 units BID HAM Administration Insulin Human Lispro 0 unit 08/18/21 00:00 09/08/21 06:41 Insulin Lispro 100 Unit/Ml SUB-Q Not Given Q6HR [facility] Protocol Levetiracetam 500 mg 08/20/21 10:00 09/08/21 10:06 Levetiracetam 500 Mg Tab PO 500 mg DAILY HAM Administration Levothyroxine Sodium 125 mcg 08/22/21 06:00 09/08/21 06:01 Levothyroxine 125 Mcg Tab PO 125 mcg QAM@0600 HAM Administration Lidocaine HCl 15 ml 09/05/21 14:00 09/08/21 08:52 Magic Mouthwash 30ml PO 15 ml TID HAM Administration Losartan Potassium 50 mg 08/17/21 10:00 09/08/21 10:05 Losartan 50 Mg Tab PO 50 mg QDAY [facility] Administration Magnesium Hydroxide 30 ml 08/17/21 04:09 08/23/21 23:56 Magnesium Hydroxide (Mom) Oral Liqd Udc PO 30 ml Q4H PRN Administration Constipation Metoprolol Tartrate 100 mg 08/20/21 11:00 09/08/21 10:05 Metoprolol Tartrate 100 Mg Tab PO 100 mg BID HAM Administration Ondansetron HCl 4 mg 08/17/21 04:09 09/07/21 17:51 Ondansetron 4 Mg/2 Ml Inj IV 4 mg Q8H PRN Administration Nausea And Vomiting Phenol 1 spray 09/04/21 09:54 09/06/21 10:13 Phenol 1.4% 177 Ml Bottle MM 1 spray PRN PRN Administration Sore Throat Promethazine HCl 25 mg 09/07/21 20:33 09/07/21 21:08 Promethazine 25 Mg Rect Supp MA 25 mg Q6H PRN Administration Nausea And Vomiting Sevelamer Carbonate 2,400 mg 09/06/21 11:30 09/08/21 08:42 Sevelamer Carbonate 800 Mg Tab PO Not Given AC HAM Simple Syrup 15 ml 08/26/21 16:00 09/04/21 00:20 Simple Syrup 15 Ml FEEDTUBE 15 ml PRN PRN Administration Hypoglycemia Simple Syrup 30 ml 08/26/21 16:00 Simple Syrup 15 Ml FEEDTUBE PRN PRN Hypoglycemia Sodium Bicarbonate 325 mg 08/26/21 16:00 Sodium Bicarbonate 325 Mg Tab FEEDTUBE PRN PRN For Clogged Feeding Tube Sodium Chloride 10 ml 08/17/21 10:00 09/08/21 10:07 Sodium Chloride 0.9% 10 Ml Flush Syringe IV 10 ml BID HAM Administration Sodium Chloride 10 ml 08/17/21 04:09 08/19/21 02:59 Sodium Chloride 0.9% 10 Ml Flush Syringe IV 10 ml PRN PRN Administration LINE FLUSH Zolpidem Tartrate 5 mg 09/05/21 22:00 09/07/21 21:08 Zolpidem 5 Mg Tab PO 5 mg QHS PRN Administration Sleep
[2021-09-08] MEDS: diphenhydrAMINE 25 MG CAP PO PRN (12:36)
--- NOTE | 2021-09-08 12:37 | Progress Note ---
Assessment and Plan 41-year-old female with known history of CVA, end-stage renal disease on dialysis on Mondays, Wednesdays and Fridays, diabetes mellitus brought into the emergency room accompanied by family for evaluation of changes in mental status which was said to have started at about 8 PM the day before coming to ER. Blood glucose was said to have been checked at home and reading was said to be high. There has been no nausea or vomiting, no diarrhea no complaints of abdominal pain. No chest pain or shortness of breath. Patient was said to have missed a dialysis on Sunday because she had not been feeling quite well. Work-up in the emergency room , labs shows blood glucose of 533, anion gap of 28, BUN of 61 and creatinine of 10.3. CT of the head reveals no acute abnormality. Patient has been started on IV fluid and insulin drip. She was closely monitored in the intensive care unit. Past Medical History: dialysis, DVT, ESRD, hypertension, migraines, stroke Past Surgical History: No surgical history Social history: no significant social history Allergic to Vancomycin. Patient awake. Patient is on room air. O2 saturation reported 98%. No complaint of chest pain, shortness of breath or cough. Patient afebrile. No leukocytosis. Blood pressure 104/56, Pulse 62 , Respirations 18. Patients last blood sugur 106. Anion gap 18 Chest xray 08/17/21 reported is poor inspiration. No significant pulmonary or pleural abnormality. No pneumothorax. Venous doppler studies Bilateral 08/17/21 reported No sonographic evidence for acute DVT in either lower extremity. 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 Patient is on S/C Heparin, Famotidine, Albuterol inhaler, Fluconazole. - Patient Problems (1) DKA (diabetic ketoacidosis) Current Visit: Yes Status: Acute Qualifiers: Diabetes mellitus type: type 1 Diabetes mellitus complication detail: without coma Qualified Code(s): E10.10 - Type 1 diabetes mellitus with ketoacidosis without coma Plan to address problem: Improving. Last blood sugur 106. Anion gap still high 18. Recommend to repeat BMP with anion gap. Follow anion gap and blood sugur. Management as per primary care. (2) End stage renal disease on dialysis Current Visit: Yes Status: Acute Plan to address problem: Patient is on Hemodialysis. Management as per nephrology. (3) Acute ischemic stroke Current Visit: No Status: Acute Plan to address problem: Management as per primary care and neurology. (4) HTN (hypertension), malignant Current Visit: No Status: Acute Plan to address problem: Patient is on Metaprolol, COzzar, Hydralagine and catapress. Blood pressure 104/56 Management as per primary care. (5) DVT (deep venous thrombosis) Current Visit: No Status: Chronic Plan to address problem: Venous doppler studies Bilateral 08/17/21 reported No sonographic evidence for acute DVT in either lower extremity. 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 Patient is on S/C Heparin. (6) Hypothyroidism Current Visit: No Status: Chronic Plan to address problem: Patient is on Levothyroxine. Management as per primary care. Subjective Date of service: 09/08/21 Principal diagnosis: Possible Sepsis; DKA; AMS; h/o CVA left hemiparesis; ESRD on Dialysis; HTN Interval history: 41-year-old female with known history of CVA, end-stage renal disease on dialysis on Mondays, Wednesdays and Fridays, diabetes mellitus brought into the emergency room accompanied by family for evaluation of changes in mental status which was said to have started at about 8 PM the day before coming to ER. Blood glucose was said to have been checked at home and reading was said to be high. There has been no nausea or vomiting, no diarrhea no complaints of abdominal pain. No chest pain or shortness of breath. Patient was said to have missed a dialysis on Sunday because she had not been feeling quite well. Work-up in the emergency room , labs shows blood glucose of 533, anion gap of 28, BUN of 61 and creatinine of 10.3. CT of the head reveals no acute abnormality. Patient has been started on IV fluid and insulin drip. She was closely monitored in the intensive care unit. Past Medical History: dialysis, DVT, ESRD, hypertension, migraines, stroke Past Surgical History: No surgical history Social history: no significant social history Allergic to Vancomycin. Patient awake. Patient is on room air. O2 saturation reported 98%. No complaint of chest pain, shortness of breath or cough. Patient afebrile. No leukocytosis. Blood pressure 104/56, Pulse 62 , Respirations 18. Patients last blood sugur 106. Anion gap 18 Chest xray 08/17/21 reported is poor inspiration. No significant pulmonary or pleural abnormality. No pneumothorax. Venous doppler studies Bilateral 08/17/21 reported No sonographic evidence for acute DVT in either lower extremity. 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 Patient is on S/C Heparin, Famotidine, Albuterol inhaler, Fluconazole. Objective Vital Signs - 12hr 09/08/21 09/08/21 09/08/21 04:41 07:50 08:42 Temperature 98.8 F Pulse Rate 65 Respiratory 16 Rate Blood Pressure 136/62 128/67 128/67 O2 Sat by Pulse 92 Oximetry 09/08/21 09/08/21 09/08/21 10:00 10:05 10:06 Temperature Pulse Rate Respiratory 18 Rate Blood Pressure 128/57 128/57 O2 Sat by Pulse 98 Oximetry Constitutional: no acute distress, alert, other (middle aged obese female with normal respiratory effort at rest) Eyes: non-icteric ENT: oropharynx moist, oropharyngeal exudate pre (thrush), other (Small bowel feeding tube in nares) Neck: supple, no lymphadenopathy, no JVD, other (large circumference) Effort: normal Ascultation: Bilateral: diminished breath sounds Percussion: Bilateral: not dull Cardiovascular: regular rate and rhythm, other (S1,S2) Gastrointestinal: normoactive bowel sounds, soft, non-tender, non-distended (protuberant), other (obese) Integumentary: normal Extremities: no cyanosis, no edema, pulses normal, no ischemia or petechiae Neurologic: normal mental status, pupils equal and round, CN II-XII normal Psychiatric: mood appropriate, affect normal CBC and BMP: 09/08/21 05:31 09/08/21 05:31 ABG, PT/INR, D-dimer: PT/INR, D-dimer PT 14.0 Sec. (12.2-14.9) 08/23/21 22:59 INR 0.97 (0.87-1.13) 08/23/21 22:59 D-Dimer 2695.37 ng/mlDDU (0-234) H 08/17/21 14:40 Abnormal lab findings: Abnormal Labs 08/17/21 08/17/21 08/17/21 00:33 00:33 02:07 WBC Hgb MCH RDW 19.7 H Lymph % (Auto) 10.5 L Nash % (Auto) Lymph # (Auto) 1.1 L Nash # (Auto) Baso # (Auto) Seg Neutrophils % 79.1 H Seg Neutrophils # 8.6 H D-Dimer Sodium 132 L 134 L Chloride 87.8 L 88.4 L Carbon Dioxide 21 L BUN 61 H 61 H Creatinine 10.1 H 10.3 H Glucose 594 H* 533 H* POC Glucose Hemoglobin A1c Calcium Phosphorus Magnesium ALT < 5 L Alkaline Phosphatase 182 H NT-Pro-B Natriuret Pep 77153 H Total Protein Albumin HDL Cholesterol TSH Salicylates Acetaminophen 08/17/21 08/17/21 08/17/21 02:07 02:07 02:07 WBC Hgb MCH RDW Lymph % (Auto) Nash % (Auto) Lymph # (Auto) Nash # (Auto) Baso # (Auto) Seg Neutrophils % Seg Neutrophils # D-Dimer Sodium Chloride Carbon Dioxide BUN Creatinine Glucose POC Glucose Hemoglobin A1c Calcium Phosphorus Magnesium ALT Alkaline Phosphatase NT-Pro-B Natriuret Pep Total Protein Albumin HDL Cholesterol TSH 5.080 H Salicylates < 0.3 L Acetaminophen 5.0 L 08/17/21 08/17/21 08/17/21 04:20 04:20 05:09 WBC Hgb MCH RDW Lymph % (Auto) Nash % (Auto) Lymph # (Auto) Nash # (Auto) Baso # (Auto) Seg Neutrophils % Seg Neutrophils # D-Dimer Sodium 136 L Chloride 90.9 L Carbon Dioxide BUN 61 H Creatinine 10.4 H Glucose 351 H POC Glucose 298 H Hemoglobin A1c Calcium Phosphorus 6.20 H Magnesium ALT Alkaline Phosphatase NT-Pro-B Natriuret Pep Total Protein Albumin HDL Cholesterol TSH Salicylates Acetaminophen 08/17/21 08/17/21 08/17/21 09:58 10:53 13:14 WBC Hgb MCH RDW Lymph % (Auto) Nash % (Auto) Lymph # (Auto) Nash # (Auto) Baso # (Auto) Seg Neutrophils % Seg Neutrophils # D-Dimer Sodium Chloride Carbon Dioxide BUN Creatinine Glucose POC Glucose 139 H 162 H 145 H Hemoglobin A1c Calcium Phosphorus Magnesium ALT Alkaline Phosphatase NT-Pro-B Natriuret Pep Total Protein Albumin HDL Cholesterol TSH Salicylates Acetaminophen 08/17/21 08/17/21 08/17/21 14:40 14:40 14:40 WBC Hgb MCH RDW Lymph % (Auto) Nash % (Auto) Lymph # (Auto) Nash # (Auto) Baso # (Auto) Seg Neutrophils % Seg Neutrophils # D-Dimer 2695.37 H Sodium Chloride 96.7 L Carbon Dioxide BUN 63 H Creatinine 10.7 H Glucose 145 H POC Glucose Hemoglobin A1c Calcium Phosphorus Magnesium ALT Alkaline Phosphatase NT-Pro-B Natriuret Pep Total Protein Albumin HDL Cholesterol 30 L TSH Salicylates Acetaminophen 08/17/21 08/17/21 08/17/21 14:40 16:45 17:47 WBC Hgb MCH RDW Lymph % (Auto) Nash % (Auto) Lymph # (Auto) Nash # (Auto) Baso # (Auto) Seg Neutrophils % Seg Neutrophils # D-Dimer Sodium Chloride 96.2 L Carbon Dioxide BUN 44 H Creatinine 7.2 H Glucose 167 H POC Glucose 136 H 165 H Hemoglobin A1c Calcium Phosphorus Magnesium ALT Alkaline Phosphatase NT-Pro-B Natriuret Pep Total Protein Albumin HDL Cholesterol TSH Salicylates Acetaminophen 08/17/21 08/17/21 08/17/21 18:01 21:01 22:40 WBC Hgb MCH RDW Lymph % (Auto) Nash % (Auto) Lymph # (Auto) Nash # (Auto) Baso # (Auto) Seg Neutrophils % Seg Neutrophils # D-Dimer Sodium Chloride 97.1 L 96.4 L Carbon Dioxide BUN 39 H 40 H Creatinine 8.0 H 8.5 H Glucose 122 H 109 H POC Glucose 172 H Hemoglobin A1c Calcium Phosphorus Magnesium ALT Alkaline Phosphatase NT-Pro-B Natriuret Pep Total Protein Albumin HDL Cholesterol TSH Salicylates Acetaminophen 08/17/21 08/18/21 08/18/21 22:40 02:13 04:56 WBC Hgb MCH 27 L RDW 19.7 H Lymph % (Auto) Nash % (Auto) Lymph # (Auto) Nash # (Auto) Baso # (Auto) Seg Neutrophils % Seg Neutrophils # D-Dimer Sodium Chloride 96.8 L Carbon Dioxide BUN 44 H Creatinine 9.3 H Glucose 170 H POC Glucose 190 H Hemoglobin A1c Calcium Phosphorus 6.70 H Magnesium ALT Alkaline Phosphatase NT-Pro-B Natriuret Pep Total Protein Albumin HDL Cholesterol TSH Salicylates Acetaminophen 08/18/21 08/18/21 08/18/21 04:56 04:56 17:01 WBC Hgb MCH 27 L RDW 19.7 H Lymph % (Auto) Nash % (Auto) 9.7 H Lymph # (Auto) Nash # (Auto) Baso # (Auto) Seg Neutrophils % Seg Neutrophils # D-Dimer Sodium Chloride Carbon Dioxide BUN Creatinine Glucose POC Glucose 228 H Hemoglobin A1c 10.2 H Calcium Phosphorus Magnesium ALT Alkaline Phosphatase NT-Pro-B Natriuret Pep Total Protein Albumin HDL Cholesterol TSH Salicylates Acetaminophen 08/18/21 08/19/21 08/19/21 23:58 04:37 04:37 WBC Hgb MCH 27 L RDW 19.5 H Lymph % (Auto) Nash % (Auto) Lymph # (Auto) Nash # (Auto) Baso # (Auto) Seg Neutrophils % Seg Neutrophils # D-Dimer Sodium Chloride 96.7 L Carbon Dioxide 21 L BUN 57 H Creatinine 10.2 H Glucose 151 H POC Glucose 192 H Hemoglobin A1c Calcium Phosphorus Magnesium ALT Alkaline Phosphatase NT-Pro-B Natriuret Pep Total Protein Albumin HDL Cholesterol TSH Salicylates Acetaminophen 08/19/21 08/19/21 08/20/21 17:46 22:59 04:24 WBC Hgb MCH RDW Lymph % (Auto) Nash % (Auto) Lymph # (Auto) Nash # (Auto) Baso # (Auto) Seg Neutrophils % Seg Neutrophils # D-Dimer Sodium 133 L Chloride 87.9 L Carbon Dioxide 15 L BUN 33 H Creatinine 7.3 H Glucose 365 H POC Glucose 217 H 282 H Hemoglobin A1c Calcium Phosphorus 6.50 H Magnesium ALT Alkaline Phosphatase NT-Pro-B Natriuret Pep Total Protein Albumin HDL Cholesterol TSH Salicylates Acetaminophen 08/20/21 08/20/21 08/20/21 06:07 07:51 15:37 WBC Hgb MCH RDW Lymph % (Auto) Nash % (Auto) Lymph # (Auto) Nash # (Auto) Baso # (Auto) Seg Neutrophils % Seg Neutrophils # D-Dimer Sodium Chloride Carbon Dioxide BUN Creatinine Glucose POC Glucose 398 H 308 H 247 H Hemoglobin A1c Calcium Phosphorus Magnesium ALT Alkaline Phosphatase NT-Pro-B Natriuret Pep Total Protein Albumin HDL Cholesterol TSH Salicylates Acetaminophen 08/20/21 08/21/21 08/21/21 23:22 04:45 05:07 WBC Hgb MCH RDW Lymph % (Auto) Nash % (Auto) Lymph # (Auto) Nash # (Auto) Baso # (Auto) Seg Neutrophils % Seg Neutrophils # D-Dimer Sodium 134 L Chloride 92.9 L Carbon Dioxide BUN 48 H Creatinine 8.0 H Glucose 389 H POC Glucose 316 H 407 H Hemoglobin A1c Calcium 10.6 H Phosphorus Magnesium ALT Alkaline Phosphatase NT-Pro-B Natriuret Pep Total Protein Albumin HDL Cholesterol TSH Salicylates Acetaminophen 08/21/21 08/21/21 08/21/21 11:37 15:52 23:44 WBC Hgb MCH RDW Lymph % (Auto) Nash % (Auto) Lymph # (Auto) Nash # (Auto) Baso # (Auto) Seg Neutrophils % Seg Neutrophils # D-Dimer Sodium Chloride Carbon Dioxide BUN Creatinine Glucose POC Glucose 244 H 325 H 221 H Hemoglobin A1c Calcium Phosphorus Magnesium ALT Alkaline Phosphatase NT-Pro-B Natriuret Pep Total Protein Albumin HDL Cholesterol TSH Salicylates Acetaminophen 08/22/21 08/22/21 08/23/21 06:06 12:27 00:37 WBC Hgb MCH RDW Lymph % (Auto) Nash % (Auto) Lymph # (Auto) Nash # (Auto) Baso # (Auto) Seg Neutrophils % Seg Neutrophils # D-Dimer Sodium Chloride Carbon Dioxide BUN Creatinine Glucose POC Glucose 224 H 247 H 341 H Hemoglobin A1c Calcium Phosphorus Magnesium ALT Alkaline Phosphatase NT-Pro-B Natriuret Pep Total Protein Albumin HDL Cholesterol TSH Salicylates Acetaminophen 08/23/21 08/23/21 08/23/21 04:20 05:37 11:56 WBC Hgb MCH RDW Lymph % (Auto) Nash % (Auto) Lymph # (Auto) Nash # (Auto) Baso # (Auto) Seg Neutrophils % Seg Neutrophils # D-Dimer Sodium Chloride 94.4 L Carbon Dioxide BUN 49 H Creatinine 7.7 H Glucose 201 H POC Glucose 210 H 162 H Hemoglobin A1c Calcium 10.9 H Phosphorus Magnesium ALT Alkaline Phosphatase NT-Pro-B Natriuret Pep Total Protein Albumin HDL Cholesterol TSH Salicylates Acetaminophen 08/23/21 08/23/21 08/23/21 17:45 22:58 22:59 WBC 12.2 H Hgb MCH 26 L RDW 20.3 H Lymph % (Auto) Nash % (Auto) Lymph # (Auto) Nash # (Auto) Baso # (Auto) Seg Neutrophils % Seg Neutrophils # D-Dimer Sodium Chloride Carbon Dioxide BUN Creatinine Glucose POC Glucose 211 H 218 H Hemoglobin A1c Calcium Phosphorus Magnesium ALT Alkaline Phosphatase NT-Pro-B Natriuret Pep Total Protein Albumin HDL Cholesterol TSH Salicylates Acetaminophen 08/23/21 08/24/21 08/24/21 22:59 04:23 04:23 WBC 15.4 H Hgb MCH 27 L RDW 19.8 H Lymph % (Auto) Nash % (Auto) 13.0 H Lymph # (Auto) Nash # (Auto) 2.0 H Baso # (Auto) 0.2 H Seg Neutrophils % Seg Neutrophils # 9.8 H D-Dimer Sodium 136 L Chloride 93.0 L Carbon Dioxide BUN 73 H Creatinine 8.7 H 9.2 H Glucose 145 H POC Glucose Hemoglobin A1c Calcium 10.7 H Phosphorus 6.30 H Magnesium 2.70 H ALT 6 L Alkaline Phosphatase 157 H NT-Pro-B Natriuret Pep Total Protein Albumin 3.7 L HDL Cholesterol TSH Salicylates Acetaminophen 08/24/21 08/24/21 08/24/21 05:09 11:20 18:28 WBC Hgb MCH RDW Lymph % (Auto) Nash % (Auto) Lymph # (Auto) Nash # (Auto) Baso # (Auto) Seg Neutrophils % Seg Neutrophils # D-Dimer Sodium Chloride Carbon Dioxide BUN Creatinine Glucose POC Glucose 155 H 110 H 182 H Hemoglobin A1c Calcium Phosphorus Magnesium ALT Alkaline Phosphatase NT-Pro-B Natriuret Pep Total Protein Albumin HDL Cholesterol TSH Salicylates Acetaminophen 08/25/21 08/25/21 08/25/21 00:15 04:44 11:28 WBC 11.3 H Hgb MCH 27 L RDW 20.4 H Lymph % (Auto) Nash % (Auto) Lymph # (Auto) Nash # (Auto) Baso # (Auto) Seg Neutrophils % Seg Neutrophils # D-Dimer Sodium Chloride Carbon Dioxide BUN Creatinine Glucose POC Glucose 247 H 189 H Hemoglobin A1c Calcium Phosphorus Magnesium ALT Alkaline Phosphatase NT-Pro-B Natriuret Pep Total Protein Albumin HDL Cholesterol TSH Salicylates Acetaminophen 08/25/21 08/25/21 08/26/21 16:42 23:29 05:22 WBC Hgb MCH RDW Lymph % (Auto) Nash % (Auto) Lymph # (Auto) Nash # (Auto) Baso # (Auto) Seg Neutrophils % Seg Neutrophils # D-Dimer Sodium Chloride Carbon Dioxide BUN Creatinine 10.0 H Glucose POC Glucose 169 H 213 H Hemoglobin A1c Calcium Phosphorus Magnesium ALT Alkaline Phosphatase NT-Pro-B Natriuret Pep Total Protein Albumin HDL Cholesterol TSH Salicylates Acetaminophen 08/26/21 08/26/21 08/26/21 06:12 11:47 23:33 WBC Hgb MCH RDW Lymph % (Auto) Nash % (Auto) Lymph # (Auto) Nash # (Auto) Baso # (Auto) Seg Neutrophils % Seg Neutrophils # D-Dimer Sodium Chloride Carbon Dioxide BUN Creatinine Glucose POC Glucose 191 H 197 H 197 H Hemoglobin A1c Calcium Phosphorus Magnesium ALT Alkaline Phosphatase NT-Pro-B Natriuret Pep Total Protein Albumin HDL Cholesterol TSH Salicylates Acetaminophen 08/27/21 08/27/21 08/27/21 06:02 06:02 06:17 WBC Hgb MCH 27 L RDW 20.1 H Lymph % (Auto) Nash % (Auto) 14.2 H Lymph # (Auto) Nash # (Auto) 1.4 H Baso # (Auto) Seg Neutrophils % Seg Neutrophils # D-Dimer Sodium 134 L Chloride 93.8 L Carbon Dioxide BUN 56 H Creatinine 6.4 H Glucose 253 H POC Glucose 250 H Hemoglobin A1c Calcium Phosphorus 6.00 H Magnesium 2.50 H ALT < 5 L Alkaline Phosphatase 135 H NT-Pro-B Natriuret Pep Total Protein Albumin 3.6 L HDL Cholesterol TSH Salicylates Acetaminophen 08/27/21 08/27/21 08/27/21 11:21 16:05 23:13 WBC Hgb MCH RDW Lymph % (Auto) Nash % (Auto) Lymph # (Auto) Nash # (Auto) Baso # (Auto) Seg Neutrophils % Seg Neutrophils # D-Dimer Sodium Chloride Carbon Dioxide BUN Creatinine Glucose POC Glucose 287 H 321 H 286 H Hemoglobin A1c Calcium Phosphorus Magnesium ALT Alkaline Phosphatase NT-Pro-B Natriuret Pep Total Protein Albumin HDL Cholesterol TSH Salicylates Acetaminophen 08/28/21 08/28/21 08/28/21 05:11 05:29 11:30 WBC Hgb MCH RDW Lymph % (Auto) Nash % (Auto) Lymph # (Auto) Nash # (Auto) Baso # (Auto) Seg Neutrophils % Seg Neutrophils # D-Dimer Sodium 134 L Chloride 91.8 L Carbon Dioxide BUN 79 H Creatinine 8.2 H Glucose 230 H POC Glucose 225 H 190 H Hemoglobin A1c Calcium 10.8 H Phosphorus Magnesium ALT Alkaline Phosphatase NT-Pro-B Natriuret Pep Total Protein Albumin HDL Cholesterol TSH Salicylates Acetaminophen 08/28/21 08/29/21 08/29/21 15:53 00:04 04:29 WBC Hgb MCH 27 L RDW 20.6 H Lymph % (Auto) Nash % (Auto) Lymph # (Auto) Nash # (Auto) Baso # (Auto) Seg Neutrophils % Seg Neutrophils # D-Dimer Sodium Chloride Carbon Dioxide BUN Creatinine Glucose POC Glucose 235 H 223 H Hemoglobin A1c Calcium Phosphorus Magnesium ALT Alkaline Phosphatase NT-Pro-B Natriuret Pep Total Protein Albumin HDL Cholesterol TSH Salicylates Acetaminophen 08/29/21 08/29/21 08/29/21 04:29 05:37 16:14 WBC Hgb MCH RDW Lymph % (Auto) Nash % (Auto) Lymph # (Auto) Nash # (Auto) Baso # (Auto) Seg Neutrophils % Seg Neutrophils # D-Dimer Sodium Chloride Carbon Dioxide BUN Creatinine 9.8 H Glucose POC Glucose 174 H 200 H Hemoglobin A1c Calcium Phosphorus Magnesium ALT Alkaline Phosphatase NT-Pro-B Natriuret Pep Total Protein Albumin HDL Cholesterol TSH Salicylates Acetaminophen 08/30/21 08/30/21 08/30/21 00:10 05:12 05:12 WBC Hgb MCH 27 L RDW 20.2 H Lymph % (Auto) Nash % (Auto) 12.7 H Lymph # (Auto) Nash # (Auto) 1.4 H Baso # (Auto) 0.2 H Seg Neutrophils % Seg Neutrophils # D-Dimer Sodium Chloride 97.5 L Carbon Dioxide BUN 58 H Creatinine 6.9 H Glucose 112 H POC Glucose 111 H Hemoglobin A1c Calcium 10.8 H Phosphorus 6.00 H Magnesium 2.80 H ALT Alkaline Phosphatase 147 H NT-Pro-B Natriuret Pep Total Protein Albumin HDL Cholesterol TSH Salicylates Acetaminophen 08/30/21 08/31/21 08/31/21 16:40 00:27 04:30 WBC Hgb MCH RDW Lymph % (Auto) Nash % (Auto) Lymph # (Auto) Nash # (Auto) Baso # (Auto) Seg Neutrophils % Seg Neutrophils # D-Dimer Sodium Chloride Carbon Dioxide BUN Creatinine Glucose POC Glucose 224 H 200 H 125 H Hemoglobin A1c Calcium Phosphorus Magnesium ALT Alkaline Phosphatase NT-Pro-B Natriuret Pep Total Protein Albumin HDL Cholesterol TSH Salicylates Acetaminophen 09/02/21 09/02/21 09/03/21 06:04 18:25 00:55 WBC Hgb MCH RDW Lymph % (Auto) Nash % (Auto) Lymph # (Auto) Nash # (Auto) Baso # (Auto) Seg Neutrophils % Seg Neutrophils # D-Dimer Sodium Chloride Carbon Dioxide BUN Creatinine Glucose POC Glucose 68 L 134 H 110 H Hemoglobin A1c Calcium Phosphorus Magnesium ALT Alkaline Phosphatase NT-Pro-B Natriuret Pep Total Protein Albumin HDL Cholesterol TSH Salicylates Acetaminophen 09/03/21 09/03/21 09/04/21 05:53 16:10 00:11 WBC Hgb MCH RDW Lymph % (Auto) Nash % (Auto) Lymph # (Auto) Nash # (Auto) Baso # (Auto) Seg Neutrophils % Seg Neutrophils # D-Dimer Sodium Chloride Carbon Dioxide BUN Creatinine Glucose POC Glucose 64 L 60 L 69 L Hemoglobin A1c Calcium Phosphorus Magnesium ALT Alkaline Phosphatase NT-Pro-B Natriuret Pep Total Protein Albumin HDL Cholesterol TSH Salicylates Acetaminophen 09/04/21 09/04/21 09/04/21 06:01 07:29 10:04 WBC Hgb MCH RDW Lymph % (Auto) Nash % (Auto) Lymph # (Auto) Nash # (Auto) Baso # (Auto) Seg Neutrophils % Seg Neutrophils # D-Dimer Sodium Chloride 96.1 L Carbon Dioxide BUN 48 H Creatinine 7.8 H Glucose 102 H POC Glucose 116 H 119 H Hemoglobin A1c Calcium 10.4 H Phosphorus Magnesium ALT Alkaline Phosphatase NT-Pro-B Natriuret Pep Total Protein Albumin HDL Cholesterol TSH Salicylates Acetaminophen 09/04/21 09/04/21 09/05/21 10:59 16:24 00:36 WBC Hgb MCH RDW Lymph % (Auto) Nash % (Auto) Lymph # (Auto) Nash # (Auto) Baso # (Auto) Seg Neutrophils % Seg Neutrophils # D-Dimer Sodium Chloride Carbon Dioxide BUN Creatinine Glucose POC Glucose 137 H 149 H 139 H Hemoglobin A1c Calcium Phosphorus Magnesium ALT Alkaline Phosphatase NT-Pro-B Natriuret Pep Total Protein Albumin HDL Cholesterol TSH Salicylates Acetaminophen 09/05/21 09/05/21 09/05/21 04:57 06:43 16:22 WBC 11.6 H Hgb 9.9 L MCH 27 L RDW 20.4 H Lymph % (Auto) Nash % (Auto) Lymph # (Auto) Nash # (Auto) Baso # (Auto) Seg Neutrophils % Seg Neutrophils # D-Dimer Sodium Chloride Carbon Dioxide BUN Creatinine Glucose POC Glucose 149 H 188 H Hemoglobin A1c Calcium Phosphorus Magnesium ALT Alkaline Phosphatase NT-Pro-B Natriuret Pep Total Protein Albumin HDL Cholesterol TSH Salicylates Acetaminophen 09/05/21 09/06/21 09/06/21 23:42 05:39 05:39 WBC Hgb MCH 27 L RDW 20.2 H Lymph % (Auto) Nash % (Auto) 9.2 H Lymph # (Auto) Nash # (Auto) 1.0 H Baso # (Auto) Seg Neutrophils % Seg Neutrophils # D-Dimer Sodium Chloride 94.2 L Carbon Dioxide BUN 35 H Creatinine 6.3 H Glucose 167 H POC Glucose 223 H Hemoglobin A1c Calcium 10.8 H Phosphorus 5.30 H Magnesium 2.50 H ALT Alkaline Phosphatase 154 H NT-Pro-B Natriuret Pep Total Protein 8.4 H Albumin 3.8 L HDL Cholesterol TSH Salicylates Acetaminophen 09/06/21 09/06/21 09/06/21 07:02 11:50 16:46 WBC Hgb MCH RDW Lymph % (Auto) Nash % (Auto) Lymph # (Auto) Nash # (Auto) Baso # (Auto) Seg Neutrophils % Seg Neutrophils # D-Dimer Sodium Chloride Carbon Dioxide BUN Creatinine Glucose POC Glucose 169 H 158 H 110 H Hemoglobin A1c Calcium Phosphorus Magnesium ALT Alkaline Phosphatase NT-Pro-B Natriuret Pep Total Protein Albumin HDL Cholesterol TSH Salicylates Acetaminophen 09/07/21 09/07/21 09/07/21 00:29 12:57 16:57 WBC Hgb MCH RDW Lymph % (Auto) Nash % (Auto) Lymph # (Auto) Nash # (Auto) Baso # (Auto) Seg Neutrophils % Seg Neutrophils # D-Dimer Sodium Chloride Carbon Dioxide BUN Creatinine Glucose POC Glucose 148 H 146 H 157 H Hemoglobin A1c Calcium Phosphorus Magnesium ALT Alkaline Phosphatase NT-Pro-B Natriuret Pep Total Protein Albumin HDL Cholesterol TSH Salicylates Acetaminophen 09/08/21 09/08/21 09/08/21 05:31 05:31 10:11 WBC Hgb MCH RDW 20.3 H Lymph % (Auto) Nash % (Auto) 9.3 H Lymph # (Auto) Nash # (Auto) Baso # (Auto) Seg Neutrophils % Seg Neutrophils # D-Dimer Sodium Chloride 95.9 L Carbon Dioxide BUN 36 H Creatinine 6.5 H Glucose POC Glucose 106 H Hemoglobin A1c Calcium 10.8 H Phosphorus 5.30 H Magnesium 2.50 H ALT 6 L Alkaline Phosphatase NT-Pro-B Natriuret Pep Total Protein Albumin 3.6 L HDL Cholesterol TSH Salicylates Acetaminophen 09/08/21 11:24 WBC Hgb MCH RDW Lymph % (Auto) Nash % (Auto) Lymph # (Auto) Nash # (Auto) Baso # (Auto) Seg Neutrophils % Seg Neutrophils # D-Dimer Sodium Chloride Carbon Dioxide BUN Creatinine Glucose POC Glucose 106 H Hemoglobin A1c Calcium Phosphorus Magnesium ALT Alkaline Phosphatase NT-Pro-B Natriuret Pep Total Protein Albumin HDL Cholesterol TSH Salicylates Acetaminophen Allied health notes reviewed: nursing
[2021-09-08] MEDS: FLUCONAZOLE 100 MG/10 ML ORAL SYRINGE FEEDTUBE SCH (14:11)
--- NOTE | 2021-09-08 17:58 | Progress Note ---
Assessment and Plan Assessment and plan: #Right upper extremity AV graft thrombosis #End Stage Renal Disease requiring hemodialysis -s/p AVF declotting 08/26 via IR/Vascular surgery -s/p vascular surgery/ thrombectomy of right arm AV loop graft. -temporary vasc cath removed 08/26 -continue HD per Nephro -avoid nephrotoxic medications; Renally dose medications #DKA (Diabetic Ketoacidosis)-resolved #Type II diabetes, insulin dependent -s/p insulin gtt -Patient with hypoglycemia secondary to reduced oral intake; continue tube feeds -Hgb A1C 10.2% -continue lantus 22U BID, continue SSI -goal glucose 140-180 while inpatient; currently controlled #Sepsisruled out -patient afebrile, WBC normalizing -Blood cultures with NGTD x 5days -s/p IV abx, none needed due to no infectious process found -ID consulted, signed off #Acute Metabolic Encephalopathy-improving #H/o CVA (cerebral infarction) with left-sided deficits -Multifactorial, DKA vs azotemia vs infectious process -Awake and tracking and following commands this morning -CT head and MRI brain noted with no acute abnormality -Neurology consulted, appreciated recommendations -c/f seizure, continue Keppra -PRN Haldol for agitation -Fall and safety precaution -Aspiration precaution -Frequent reorientation -Avoid benzodiazepine to reduce the possibility of delirium -Maintenance of sleep-wake cycle -PT/OT/Speech ordered -Psychiatry consulted: Patient Celexa increased #Hypertension -continue home BP medications -PRN Hydralazine and Labetalol for SBP greater than 160 #Elevated D-Dimer #H/o DVT -BLE doppler showed no evidence for acute DVT in either lower extremity. 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 -Per patient's mother, patient has been off coumadin for a couple of years -Continue Heparin SubQ -low suspicion for PE, will order V/Q scan if return of fever, dyspnea -Patient might benefit from PO AC at discharge, wild defer to PCP #Hypothyroidism -continue synthroid #Dysphagia-resolved -Patient failed initial speech eval due to mental status -Discontinue NG tube and tube feeds as patient successfully passed swallow evaluation was necessary. Gastroenterology consulted for PEG tube placement; appreciate recs. GI also agrees with declining PEG tube placement. #GI/ DVT Prophylaxis -PPI- Pepcid -heparin SubQ -SCDs to bilateral lower extremities while in bed #Discharge planning - Patient is pending authorization at a rehab facility. - Case management has been made aware. Disposition Plan: Continue medical management Total Time Spent with Patient (Minutes): 45 minutes History Interval history: No acute events overnight. Hospitalist Physical - Constitutional Vitals: Temp Pulse Resp BP Pulse Ox 98.7 F 68 18 104/56 98 09/08/21 15:59 09/08/21 15:59 09/08/21 10:00 09/08/21 15:59 09/08/21 15:59 General appearance: Present: no acute distress, well-nourished - EENT Eyes: Present: PERRL, EOM intact ENT: hearing intact, clear oral mucosa, dentition normal - Neck Neck: Present: supple, normal ROM - Respiratory Respiratory effort: normal Respiratory: bilateral: CTA - Cardiovascular Rhythm: regular Heart Sounds: Present: S1 & S2 - Extremities Extremities: no ischemia, pulses intact, pulses symmetrical, No edema, normal temperature, normal color Peripheral Pulses: within normal limits - Abdominal General gastrointestinal: soft, non-tender, non-distended, normal bowel sounds - Integumentary Integumentary: Present: clear, warm, dry - Psychiatric Psychiatric: appropriate mood/affect, intact judgment & insight, memory intact, cooperative - Neurologic Neurologic: CNII-XII intact, moves all extremities - Allied Health Allied health notes reviewed: nursing Results - Labs CBC & Chem 7: 09/08/21 05:31 09/08/21 05:31 Labs: Laboratory Last Values WBC 8.3 K/mm3 (4.5-11.0) 09/08/21 05:31 RBC 4.03 M/mm3 (3.65-5.03) 09/08/21 05:31 Hgb 11.1 gm/dl (10.1-14.3) 09/08/21 05:31 Hct 34.6 % (30.3-42.9) 09/08/21 05:31 MCV 86 fl (79-97) 09/08/21 05:31 MCH 28 pg (28-32) 09/08/21 05:31 MCHC 32 % (30-34) 09/08/21 05:31 RDW 20.3 % (13.2-15.2) H 09/08/21 05:31 Plt Count 164 K/mm3 (140-440) 09/08/21 05:31 Lymph % (Auto) 28.6 % (13.4-35.0) 09/08/21 05:31 [place]in % (Auto) 9.3 % (0.0-7.3) H 09/08/21 05:31 Eos % (Auto) 3.4 % (0.0-4.3) 09/08/21 05:31 Baso % (Auto) 1.0 % (0.0-1.8) 09/08/21 05:31 Lymph # (Auto) 2.4 K/mm3 (1.2-5.4) 09/08/21 05:31 Hardin # (Auto) 0.8 K/mm3 (0.0-0.8) 09/08/21 05:31 Eos # (Auto) 0.3 K/mm3 (0.0-0.4) 09/08/21 05:31 Baso # (Auto) 0.1 K/mm3 (0.0-0.1) 09/08/21 05:31 Seg Neutrophils % 57.7 % (40.0-70.0) 09/08/21 05:31 Seg Neutrophils # 4.8 K/mm3 (1.8-7.7) 09/08/21 05:31 PT 14.0 Sec. (12.2-14.9) 08/23/21 22:59 INR 0.97 (0.87-1.13) 08/23/21 22:59 APTT 27.9 Sec. (24.2-36.6) 08/23/21 22:59 D-Dimer 2695.37 ng/mlDDU (0-234) H 08/17/21 14:40 Sodium 139 mmol/L (137-145) 09/08/21 05:31 Potassium 3.9 mmol/L (3.6-5.0) 09/08/21 05:31 Chloride 95.9 mmol/L (98-107) L 09/08/21 05:31 Carbon Dioxide 29 mmol/L (22-30) 09/08/21 05:31 Anion Gap 18 mmol/L 09/08/21 05:31 BUN 36 mg/dL (7-17) H 09/08/21 05:31 Creatinine 6.5 mg/dL (0.6-1.2) H 09/08/21 05:31 Estimated GFR 8 ml/min 09/08/21 05:31 BUN/Creatinine Ratio 6 % 09/08/21 05:31 Glucose 78 mg/dL (65-100) 09/08/21 05:31 POC Glucose 107 mg/dL (70-105) H 09/08/21 17:15 Hemoglobin A1c 10.2 % (4-6) H 08/18/21 04:56 Lactic Acid 1.70 mmol/L (0.7-2.0) 08/17/21 02:07 Calcium 10.8 mg/dL (8.4-10.2) H 09/08/21 05:31 Phosphorus 5.30 mg/dL (2.5-4.5) H 09/08/21 05:31 Magnesium 2.50 mg/dL (1.7-2.3) H 09/08/21 05:31 Total Bilirubin 0.30 mg/dL (0.1-1.2) 09/08/21 05:31 AST 13 units/L (5-40) 09/08/21 05:31 ALT 6 units/L (7-56) L 09/08/21 05:31 Alkaline Phosphatase 122 units/L (35-129) 09/08/21 05:31 NT-Pro-B Natriuret Pep 04786 pg/mL (0-450) H 08/17/21 02:07 Total Protein 7.5 g/dL (6.3-8.2) 09/08/21 05:31 Albumin 3.6 g/dL (3.9-5) L 09/08/21 05:31 Albumin/Globulin Ratio 0.9 % 09/08/21 05:31 Triglycerides 128 mg/dL (2-149) 08/17/21 14:40 Cholesterol 128 mg/dL (50-199) 08/17/21 14:40 LDL Cholesterol Direct 69 mg/dL (50-130) 08/17/21 14:40 HDL Cholesterol 30 mg/dL (40-59) L 08/17/21 14:40 Cholesterol/HDL Ratio 4.26 % 08/17/21 14:40 TSH 5.080 mlU/mL (0.270-4.200) H 08/17/21 02:07 Salicylates < 0.3 mg/dL (2.8-20.0) L 08/17/21 02:07 Acetaminophen 5.0 ug/mL (10.0-30.0) L 08/17/21 02:07 Plasma/Serum Alcohol < 0.01 % (0-0.07) 08/17/21 02:07 Coronavirus (PCR) Negative (Negative) 09/01/21 09:52 SARS-CoV-2 (PCR) Negative (Negative) 08/17/21 09:12 Hepatitis A IgM Ab Non-reactive (NonReactive) 08/17/21 14:40 Hep Bs Antigen Non-reactive (Negative) 08/17/21 14:40 Hep B Core IgM Ab Non-reactive (NonReactive) 08/17/21 14:40 Hepatitis C Antibody Non-reactive (NonReactive) 08/17/21 14:40 Blood Type O POSITIVE 08/17/21 17:43 Antibody Screen Negative 08/17/21 17:43 Tomas/IV: Voiding Method Incontinent Active Medications - Current Medications Current Medications: Generic Name Dose Route Start Last Admin Trade Name Freq PRN Reason Stop Dose Admin Acetaminophen 650 mg 08/17/21 07:50 08/30/21 20:25 Acetaminophen 325 Mg Tab PO 650 mg Q6H PRN Administration Pain, Mild (1-3) Acetaminophen 650 mg 08/17/21 08:17 08/17/21 14:49 Acetaminophen 650 Mg Rect Supp MS 650 mg Q4H PRN Administration Pain, Mild (1-3) Albuterol 2.5 mg 08/29/21 20:00 Albuterol 2.5 Mg/3 Ml Nebu IH Q4HRT PRN Shortness Of Breath Amlodipine Besylate 10 mg 08/22/21 11:00 09/08/21 10:06 Amlodipine 10 Mg Tab PO 10 mg QDAY HAM Administration Lipase/Protease/Amylase 1 each 08/26/21 16:00 Lipase 10,500/Protease 25,000/Amylase 43,750 (Units) Dr Lopez FEEDTUBE PRN PRN For Clogged Feeding Tube Aspirin 325 mg 08/22/21 10:00 09/08/21 10:06 Aspirin 325 Mg Tab FEEDTUBE 325 mg QDAY HAM Administration Atorvastatin Calcium 40 mg 08/29/21 22:00 09/07/21 21:08 Atorvastatin 40 Mg Tab PO 40 mg QHS HAM Administration Citalopram Hydrobromide 40 mg 09/04/21 10:00 09/08/21 10:06 Citalopram 20 Mg Tab PO 40 mg QDAY HAM Administration Clonidine HCl 0.1 mg 08/29/21 20:00 09/08/21 14:27 Clonidine 0.1 Mg Tab PO Not Given TID HAM Dextrose 50 ml 08/17/21 23:37 Dextrose 50% In Water (25gm) 50 Ml Syringe IV Q30MIN PRN Hypoglycemia Protocol Diphenhydramine HCl 25 mg 09/07/21 09:30 09/08/21 12:36 Diphenhydramine 25 Mg Cap PO 25 mg Q8H PRN Administration Itching Famotidine 20 mg 08/20/21 10:00 09/08/21 10:05 Famotidine 20 Mg Tab FEEDTUBE 20 mg QDAY HAM Administration Fluconazole 100 mg 09/05/21 14:00 09/08/21 14:11 Fluconazole 100 Mg/10 Ml Oral Syringe FEEDTUBE 09/10/21 14:01 100 mg Q24H HAM Administration Protocol Haloperidol Lactate 5 mg 08/19/21 12:00 09/01/21 11:41 Haloperidol Lactate 5 Mg/1 Ml Inj IV 5 mg Q6H PRN Administration Agitation Heparin Sodium (Porcine) 5,000 unit 08/17/21 06:00 09/08/21 14:11 Heparin 5,000 Unit/1 Ml Vial SUB-Q 5,000 unit Q8HR HAM Administration Heparin Sodium (Porcine) 3,000 unit 08/17/21 07:41 08/31/21 10:38 Heparin 10,000 Units/10 Ml Vial IV 3,000 unit KATI PRN Administration hemodialysis Hydralazine HCl 100 mg 08/17/21 09:00 09/08/21 14:36 Hydralazine 100 Mg Tab PO Not Given TID HAM Hydralazine HCl 10 mg 08/17/21 07:56 08/25/21 05:19 Hydralazine 20 Mg/1 Ml Inj IV 10 mg Q4HR PRN Administration Hypertension Hydromorphone HCl 0.25 mg 08/17/21 07:50 09/08/21 08:51 Hydromorphone 0.5 Mg/0.5 Ml Inj IV 0.25 mg Q4H PRN Administration Pain, Moderate (4-6) Hydroxyzine Pamoate 25 mg 09/03/21 14:50 Hydroxyzine Pamoate 25 Mg Cap PO Q6H PRN Anxiety Sodium Chloride 100 mls @ 999 mls/hr 09/08/21 11:17 Nacl 0.9% IV KATI PRN Hypotension Insulin Glargine 22 units 09/02/21 10:00 09/08/21 10:19 Insulin Glargine 100 Units/Ml SUB-Q 22 units BID HAM Administration Insulin Human Lispro 0 unit 08/18/21 00:00 09/08/21 17:42 Insulin Lispro 100 Unit/Ml SUB-Q Not Given Q6HR [facility] Protocol Levetiracetam 500 mg 08/20/21 10:00 09/08/21 10:06 Levetiracetam 500 Mg Tab PO 500 mg DAILY HAM Administration Levothyroxine Sodium 125 mcg 08/22/21 06:00 09/08/21 06:01 Levothyroxine 125 Mcg Tab PO 125 mcg QAM@0600 HAM Administration Lidocaine HCl 15 ml 09/05/21 14:00 09/08/21 14:12 Magic Mouthwash 30ml PO 15 ml TID HAM Administration Losartan Potassium 50 mg 08/17/21 10:00 09/08/21 10:05 Losartan 50 Mg Tab PO 50 mg QDAY HAM Administration Magnesium Hydroxide 30 ml 08/17/21 04:09 08/23/21 23:56 Magnesium Hydroxide (Mom) Oral Liqd Udc PO 30 ml Q4H PRN Administration Constipation Metoprolol Tartrate 100 mg 08/20/21 11:00 09/08/21 10:05 Metoprolol Tartrate 100 Mg Tab PO 100 mg BID HAM Administration Ondansetron HCl 4 mg 08/17/21 04:09 09/07/21 17:51 Ondansetron 4 Mg/2 Ml Inj IV 4 mg Q8H PRN Administration Nausea And Vomiting Phenol 1 spray 09/04/21 09:54 09/06/21 10:13 Phenol 1.4% 177 Ml Bottle MM 1 spray PRN PRN Administration Sore Throat Promethazine HCl 25 mg 09/07/21 20:33 09/07/21 21:08 Promethazine 25 Mg Rect Supp MS 25 mg Q6H PRN Administration Nausea And Vomiting Sevelamer Carbonate 2,400 mg 09/06/21 11:30 09/08/21 17:38 Sevelamer Carbonate 800 Mg Tab PO 2,400 mg AC HAM Administration Simple Syrup 15 ml 08/26/21 16:00 09/04/21 00:20 Simple Syrup 15 Ml FEEDTUBE 15 ml PRN PRN Administration Hypoglycemia Simple Syrup 30 ml 08/26/21 16:00 Simple Syrup 15 Ml FEEDTUBE PRN PRN Hypoglycemia Sodium Bicarbonate 325 mg 08/26/21 16:00 Sodium Bicarbonate 325 Mg Tab FEEDTUBE PRN PRN For Clogged Feeding Tube Sodium Chloride 10 ml 08/17/21 10:00 09/08/21 10:07 Sodium Chloride 0.9% 10 Ml Flush Syringe IV 10 ml BID HAM Administration Sodium Chloride 10 ml 08/17/21 04:09 08/19/21 02:59 Sodium Chloride 0.9% 10 Ml Flush Syringe IV 10 ml PRN PRN Administration LINE FLUSH Zolpidem Tartrate 5 mg 09/05/21 22:00 09/07/21 21:08 Zolpidem 5 Mg Tab PO 5 mg QHS PRN Administration Sleep Nutrition/Malnutrition Assess - Dietary Evaluation Nutrition/Malnutrition Findings: Nutrition Notes Start: 08/17/21 12:51 Freq: Status: Active Protocol: Document 09/05/21 13:01 GABRIEL (Rec: 09/05/21 13:04 GABRIEL [id number]) Nutrition Notes Initial or Follow up Reassessment Current Diagnosis CKD (stage V CKD),Diabetes, Hypertension,Stroke Other Pertinent Diagnosis ESRD+HD, R-UE Thrombectomy & AVF, Metabolic Encephalopathy. Current Diet TF-Nepro @ 40 ml/hr (since L 09/03). Labs/Tests 09/04: Cl 96.1, BUN 48, Crea 7 .8, Glu 102, Ca 10.4. Pertinent Medications 09/05: Levothyroxine, others nutritionally unremarkable. Height 5 ft 8 in Weight 77.8 kg [place] Body Weight (kg) 63.63 BMI 26.0 Weight change and time frame 0.5 Kg bodyt weight gain in 1 week reported. Weight Status Overweight Subjective/Other Information RD consult for routine F/U on Tf tolerance/continuation assessment. TF was discontinued and resumed during the week after REGISTERED APPRAISER assessment and recommendation, and continues as initially prescribed, and well tolerated, according to RN notes. REGISTERED APPRAISER note on 09/02/21 11:27: Patient demonstrates diminished cognitive function and is holding food with noted spillage from the oral cavity . Much effort with digital manipulatIon of the larynx was conducted to attain initiation of the swallow. Once the swallow was initiated which was over five to seven minutes, she demonstrated good laryngeal excursion with no evidence of aspiration. Patient is currently not appropriate for the mechanical soft diet which was recommended the previous day, due to a change in her current mentation. The anatomical structures are intact; however , she is at risk for aspiration,malnutrition and dehydration secondary to prolonged bolus holding. Recommend an alternative method of nutrition to support her nutritional needs as her mentation waxes and wanes. No further recommendations. Pr is on Room Air, O2 saturation @ 97%, according to Physical Assessment History notes. Pt has missing teeth, according to Physical Assessment History notes. Pt will need to demonstarte adquate swallowing or will need PEG tube before discharge , according to Progress notes. Percent of energy/protein needs met: Prescribed TF-Nepro w/ CARBSTEADY @ 40 ml/hr provides for energy/protein needs (1, 728 Kcal/78 g) during LOS, 97% Kcal; 83% AA. Burn Absent Trauma Absent GI Symptoms None Difficulty In Swallowing Food Allergy No Skin Integrity/Comment Assessment WNL. Current % PO Other Minimum of two criteria No Fluid Accumulation N/A Reduced Primary Care Md Strength N/A (non-severe) Protein-Calorie Malnutrition N\A #1 Nutrition Diagnosis Inadequate oral intake Diagnosis Progress(for reassessment Continues documentation) Is patient on ventilator? No Is Patient Ambulatory and/or Out of Bed No REE-([facility]-confined to bed) [phone] Calculation Used for Recommendations [facility] Additional Notes Protein: >1.2 g/Kg AdjBW; >94 g/day. Fluids: 1 ml/Kcal, or as per MD. Nutrition Intervention Nutrition Support: Continue TF-Nepro w/CARBSTEADY @ 40 ml/hr. Flush: 150 ml water Q 4 hr, or as per MD. Kcal 1,728 Protein (gm) 78 Carbohydrates (gm) 155 Fat (gm) 92 Fluid (mL) 698 Fiber (gm) 12 % RDI: 97% Kcal; 83% AA. Goal #1 Provide at least 75% of energy /protein needs through Enteral Feeding during LOS. Follow-Up By: 09/12/21 Additional Comments Continue monitoring TF tolerance, REGISTERED APPRAISER evaluation, and BM.
[2021-09-08] MEDS: ZOLPIDEM 5 MG TAB PO PRN (22:10)
[2021-09-09] MEDS: HEPARIN 5,000 UNIT/1 ML VIAL SUB-Q SCH ×3 (06:11→21:36)
[2021-09-09] MEDS: LEVOTHYROXINE 125 MCG TAB PO SCH (06:11)
[2021-09-09] MEDS: INSULIN LISPRO 100 UNIT/ML SUB-Q SCH ×3 (09:32→18:26)
[2021-09-09] MEDS: ASPIRIN 325 MG TAB FEEDTUBE SCH (09:33)
[2021-09-09] MEDS: FAMOTIDINE 20 MG TAB FEEDTUBE SCH (09:33)
[2021-09-09] MEDS: levETIRAcetam 500 MG TAB PO SCH (09:33)
[2021-09-09] MEDS: amLODIPine 10 MG TAB PO SCH (09:33)
[2021-09-09] MEDS: LOSARTAN 50 MG TAB PO SCH (09:33)
[2021-09-09] MEDS: hydrALAZINE 100 MG TAB PO SCH ×2 (09:34→15:05)
[2021-09-09] MEDS: SEVELAMER CARBONATE 800 MG TAB PO SCH ×3 (09:34→18:25)
[2021-09-09] MEDS: diphenhydrAMINE 25 MG CAP PO PRN (09:34)
[2021-09-09] MEDS: METOPROLOL TARTRATE 100 MG TAB PO SCH ×2 (09:34→21:35)
[2021-09-09] MEDS: CITALOPRAM 20 MG TAB PO SCH (09:34)
[2021-09-09] MEDS: cloNIDine 0.1 MG TAB PO SCH ×2 (09:34→15:05)
[2021-09-09] MEDS: MAGIC MOUTHWASH 30ML PO SCH ×3 (09:34→21:41)
[2021-09-09] MEDS: HYDROmorphone 0.5 MG/0.5 ML INJ IV PRN ×2 (09:44→16:30)
[2021-09-09] MEDS: INSULIN GLARGINE 100 UNITS/ML SUB-Q SCH (11:46)
--- NOTE | 2021-09-09 12:06 | Progress Note ---
Assessment and Plan ESRD - HD today HTN - F/u on meds Lytes - F/u labs HD Access - S/p thrombectomy Rt arm AVF & stable Subjective Date of service: 09/09/21 Principal diagnosis: Possible Sepsis; DKA; AMS; h/o CVA left hemiparesis; ESRD on Dialysis; HTN Interval history: No new complaint Objective - Vital Signs Vital signs: Vital Signs - 12hr 09/09/21 09/09/21 04:20 07:10 Temperature 98.3 F 98.7 F Pulse Rate 64 64 Respiratory 16 16 Rate Blood Pressure 127/63 124/65 O2 Sat by Pulse 96 96 Oximetry - General Appearance General appearance: other (In no distress) EENT: PERRL, hearing intact Neck: no JVD, supple Respiratory: Present: Clear to Ascultation Cardiology: regular, S1S2 Gastrointestinal: other (Soft) Neurologic: alert and oriented x3 - Lab 09/08/21 05:31 09/08/21 05:31 Most recent lab results Calcium 10.8 mg/dL (8.4-10.2) H 09/08/21 05:31 Phosphorus 5.30 mg/dL (2.5-4.5) H 09/08/21 05:31 Magnesium 2.50 mg/dL (1.7-2.3) H 09/08/21 05:31 Medications & Allergies - Medications Allergies/Adverse Reactions: Allergies vancomycin Adverse Reaction (Verified 04/02/13 10:16) Hives Home Medications: Home Medications Medication Instructions Recorded Confirmed Last Taken Type Hydralazine HCl [hydrALAZINE] 100 mg PO BID 04/02/13 08/17/21 04/02/13 08:00 History Aspirin/Dipyridamole [Aggrenox] 1 cap PO BID #60 capsule 04/10/13 08/17/21 Unknown Rx Cinacalcet [Sensipar] 60 mg PO QDAY 08/17/21 08/17/21 Unknown History Citalopram [celeXA] 20 mg PO QDAY 08/17/21 08/17/21 Unknown History Gabapentin [Neurontin] 100 mg PO Q8HR 08/17/21 08/17/21 Unknown History Insulin Glargine,Hum.rec.anlog 55 unit SQ BID 08/17/21 08/17/21 Unknown History [Lantus Solostar] Promethazine [Phenergan] 25 mg PO Q6HR PRN 08/17/21 08/17/21 Unknown History Sevelamer Carbonate [Renvela] 800 mg PO TIDWM 08/17/21 08/17/21 Unknown History amLODIPine [Norvasc] 10 mg PO DAILY 08/17/21 08/17/21 Unknown History carvediloL [Coreg] 25 mg PO BID 08/17/21 08/17/21 Unknown History Albuterol Mdi (or & Nicu Only) 2 puff IH QID PRN 08/29/21 08/29/21 Unknown History [ProAir HFA Inhaler] AtorvaSTATin [Lipitor] 40 mg PO QHS 08/29/21 08/29/21 Unknown History Cetirizine HCl [Zyrtec 10mg tab] 10 mg PO QDAY 08/29/21 08/29/21 Unknown History Ferric Citrate (Nf) [Auryxia] 210 mg PO TID 08/29/21 08/29/21 Unknown History Fluticasone [Flonase] 2 spray NS QDAY PRN 08/29/21 08/29/21 Unknown History Furosemide [Lasix TAB] 40 mg PO QDAY 08/29/21 08/29/21 Unknown History Insulin Aspart (Nf) [NovoLOG 15 units SQ TIDAC 08/29/21 08/29/21 Unknown History Flexpen] Metoclopramide [Reglan] 10 mg PO HS 08/29/21 08/29/21 Unknown History Pantoprazole [Protonix] 40 mg PO QDAY 08/29/21 08/29/21 Unknown History Prochlorperazine Maleate 10 mg PO QDAY PRN 08/29/21 08/29/21 Unknown History [Compazine] Sucroferric Oxyhydroxide(Nf) 500 mg PO TIDWM 08/29/21 08/29/21 Unknown History [Velphoro (Nf)] cloNIDine [Catapres] 0.1 mg PO TID 08/29/21 08/29/21 Unknown History Active Medications: Generic Name Dose Route Start Last Admin Trade Name Freq PRN Reason Stop Dose Admin Acetaminophen 650 mg 08/17/21 07:50 08/30/21 20:25 Acetaminophen 325 Mg Tab PO 650 mg Q6H PRN Administration Pain, Mild (1-3) Acetaminophen 650 mg 08/17/21 08:17 08/17/21 14:49 Acetaminophen 650 Mg Rect Supp [place] 650 mg Q4H PRN Administration Pain, Mild (1-3) Albuterol 2.5 mg 08/29/21 20:00 Albuterol 2.5 Mg/3 Ml Nebu IH Q4HRT PRN Shortness Of Breath Amlodipine Besylate 10 mg 08/22/21 11:00 09/09/21 09:33 Amlodipine 10 Mg Tab PO 10 mg QDAY HAM Administration Lipase/Protease/Amylase 1 each 08/26/21 16:00 Lipase 10,500/Protease 25,000/Amylase 43,750 (Units) Dr Lopez FEEDTUBE PRN PRN For Clogged Feeding Tube Aspirin 325 mg 08/22/21 10:00 09/09/21 09:33 Aspirin 325 Mg Tab FEEDTUBE 325 mg QDAY HAM Administration Atorvastatin Calcium 40 mg 08/29/21 22:00 09/08/21 22:04 Atorvastatin 40 Mg Tab PO 40 mg QHS HAM Administration Citalopram Hydrobromide 40 mg 09/04/21 10:00 09/09/21 09:34 Citalopram 20 Mg Tab PO 40 mg QDAY HAM Administration Clonidine HCl 0.1 mg 08/29/21 20:00 09/09/21 09:34 Clonidine 0.1 Mg Tab PO 0.1 mg TID HAM Administration Dextrose 50 ml 08/17/21 23:37 Dextrose 50% In Water (25gm) 50 Ml Syringe IV Q30MIN PRN Hypoglycemia Protocol Diphenhydramine HCl 25 mg 09/07/21 09:30 09/09/21 09:34 Diphenhydramine 25 Mg Cap PO 25 mg Q8H PRN Administration Itching Famotidine 20 mg 08/20/21 10:00 09/09/21 09:33 Famotidine 20 Mg Tab FEEDTUBE 20 mg QDAY HAM Administration Fluconazole 100 mg 09/05/21 14:00 09/08/21 14:11 Fluconazole 100 Mg/10 Ml Oral Syringe FEEDTUBE 09/10/21 14:01 100 mg Q24H HAM Administration Protocol Haloperidol Lactate 5 mg 08/19/21 12:00 09/01/21 11:41 Haloperidol Lactate 5 Mg/1 Ml Inj IV 5 mg Q6H PRN Administration Agitation Heparin Sodium (Porcine) 5,000 unit 08/17/21 06:00 09/09/21 06:11 Heparin 5,000 Unit/1 Ml Vial SUB-Q 5,000 unit Q8HR HAM Administration Heparin Sodium (Porcine) 3,000 unit 08/17/21 07:41 08/31/21 10:38 Heparin 10,000 Units/10 Ml Vial IV 3,000 unit KATI PRN Administration hemodialysis Hydralazine HCl 100 mg 08/17/21 09:00 09/09/21 09:34 Hydralazine 100 Mg Tab PO 100 mg TID HAM Administration Hydralazine HCl 10 mg 08/17/21 07:56 08/25/21 05:19 Hydralazine 20 Mg/1 Ml Inj IV 10 mg Q4HR PRN Administration Hypertension Hydromorphone HCl 0.25 mg 08/17/21 07:50 09/09/21 09:44 Hydromorphone 0.5 Mg/0.5 Ml Inj IV 0.25 mg Q4H PRN Administration Pain, Moderate (4-6) Hydroxyzine Pamoate 25 mg 09/03/21 14:50 Hydroxyzine Pamoate 25 Mg Cap PO Q6H PRN Anxiety Sodium Chloride 100 mls @ 999 mls/hr 09/08/21 11:17 Nacl 0.9% IV KATI PRN Hypotension Insulin Glargine 15 units 09/09/21 10:00 09/09/21 11:46 Insulin Glargine 100 Units/Ml SUB-Q Not Given BID [facility] Insulin Human Lispro 0 unit 08/18/21 00:00 09/09/21 11:46 Insulin Lispro 100 Unit/Ml SUB-Q Not Given Q6HR [facility] Protocol Levetiracetam 500 mg 08/20/21 10:00 09/09/21 09:33 Levetiracetam 500 Mg Tab PO 500 mg DAILY [facility] Administration Levothyroxine Sodium 125 mcg 08/22/21 06:00 09/09/21 06:11 Levothyroxine 125 Mcg Tab PO 125 mcg QAM@0600 [facility] Administration Lidocaine HCl 15 ml 09/05/21 14:00 09/09/21 09:34 Magic Mouthwash 30ml PO 15 ml TID [facility] Administration Losartan Potassium 50 mg 08/17/21 10:00 09/09/21 09:33 Losartan 50 Mg Tab PO 50 mg QDAY HAM Administration Magnesium Hydroxide 30 ml 08/17/21 04:09 08/23/21 23:56 Magnesium Hydroxide (Mom) Oral Liqd Udc PO 30 ml Q4H PRN Administration Constipation Metoprolol Tartrate 100 mg 08/20/21 11:00 09/09/21 09:34 Metoprolol Tartrate 100 Mg Tab PO 100 mg BID HAM Administration Ondansetron HCl 4 mg 08/17/21 04:09 09/07/21 17:51 Ondansetron 4 Mg/2 Ml Inj IV 4 mg Q8H PRN Administration Nausea And Vomiting Phenol 1 spray 09/04/21 09:54 09/06/21 10:13 Phenol 1.4% 177 Ml Bottle MM 1 spray PRN PRN Administration Sore Throat Promethazine HCl 25 mg 09/07/21 20:33 09/07/21 21:08 Promethazine 25 Mg Rect Supp [place] 25 mg Q6H PRN Administration Nausea And Vomiting Sevelamer Carbonate 2,400 mg 09/06/21 11:30 09/09/21 11:49 Sevelamer Carbonate 800 Mg Tab PO 2,400 mg AC HAM Administration Simple Syrup 15 ml 08/26/21 16:00 09/04/21 00:20 Simple Syrup 15 Ml FEEDTUBE 15 ml PRN PRN Administration Hypoglycemia Simple Syrup 30 ml 08/26/21 16:00 Simple Syrup 15 Ml FEEDTUBE PRN PRN Hypoglycemia Sodium Bicarbonate 325 mg 08/26/21 16:00 Sodium Bicarbonate 325 Mg Tab FEEDTUBE PRN PRN For Clogged Feeding Tube Sodium Chloride 10 ml 08/17/21 10:00 09/09/21 09:35 Sodium Chloride 0.9% 10 Ml Flush Syringe IV 10 ml BID HAM Administration Sodium Chloride 10 ml 08/17/21 04:09 08/19/21 02:59 Sodium Chloride 0.9% 10 Ml Flush Syringe IV 10 ml PRN PRN Administration LINE FLUSH Zolpidem Tartrate 5 mg 09/05/21 22:00 09/08/21 22:10 Zolpidem 5 Mg Tab PO 5 mg QHS PRN Administration Sleep
--- NOTE | 2021-09-09 13:19 | Progress Note ---
Assessment and Plan 41-year-old female with known history of CVA, end-stage renal disease on dialysis on Mondays, Wednesdays and Fridays, diabetes mellitus brought into the emergency room accompanied by family for evaluation of changes in mental status which was said to have started at about 8 PM the day before coming to ER. Blood glucose was said to have been checked at home and reading was said to be high. There has been no nausea or vomiting, no diarrhea no complaints of abdominal pain. No chest pain or shortness of breath. Patient was said to have missed a dialysis on Sunday because she had not been feeling quite well. Work-up in the emergency room , labs shows blood glucose of 533, anion gap of 28, BUN of 61 and creatinine of 10.3. CT of the head reveals no acute abnormality. Patient has been started on IV fluid and insulin drip. She was closely monitored in the intensive care unit. Past Medical History: dialysis, DVT, ESRD, hypertension, migraines, stroke Past Surgical History: No surgical history Social history: no significant social history Allergic to Vancomycin. Patient awake. Patient is on room air. O2 saturation reported 99%. No complaint of chest pain, shortness of breath . Complaining slight cough. Patient afebrile. No leukocytosis. Blood pressure 127/67, Pulse 65 , Respirations 18. Patients last blood sugur 89. Monitor blood sugur closely. Recommend to repeat anion gap. Chest xray 08/17/21 reported is poor inspiration. No significant pulmonary or pleural abnormality. No pneumothorax. Venous doppler studies Bilateral 08/17/21 reported No sonographic evidence for acute DVT in either lower extremity. 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 Patient is on S/C Heparin, Famotidine, Albuterol inhaler, Fluconazole. - Patient Problems (1) DKA (diabetic ketoacidosis) Current Visit: Yes Status: Acute Qualifiers: Diabetes mellitus type: type 1 Diabetes mellitus complication detail: without coma Qualified Code(s): E10.10 - Type 1 diabetes mellitus with ketoacidosis without coma Plan to address problem: Improving. Last blood sugur 86. Monitor blood sugurs closely. Recommend to repeat BMP with anion gap. Management as per primary care. (2) End stage renal disease on dialysis Current Visit: Yes Status: Acute Plan to address problem: Patient is on Hemodialysis. Management as per nephrology. (3) Acute ischemic stroke Current Visit: No Status: Acute Plan to address problem: Management as per primary care and neurology. (4) HTN (hypertension), malignant Current Visit: No Status: Acute Plan to address problem: Patient is on Metaprolol, COzzar, Hydralagine and catapress. Blood pressure 104/56 Management as per primary care. (5) DVT (deep venous thrombosis) Current Visit: No Status: Chronic Plan to address problem: Venous doppler studies Bilateral 08/17/21 reported No sonographic evidence for a cute DVT in either lower extremity. 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 Patient is on S/C Heparin. (6) Hypothyroidism Current Visit: No Status: Chronic Plan to address problem: Patient is on Levothyroxine. Management as per primary care. Subjective Date of service: 09/09/21 Principal diagnosis: Possible Sepsis; DKA; AMS; h/o CVA left hemiparesis; ESRD on Dialysis; HTN Interval history: 41-year-old female with known history of CVA, end-stage renal disease on dialysis on Mondays, Wednesdays and Fridays, diabetes mellitus brought into the emergency room accompanied by family for evaluation of changes in mental status which was said to have started at about 8 PM the day before coming to ER. Blood glucose was said to have been checked at home and reading was said to be high. There has been no nausea or vomiting, no diarrhea no complaints of abdominal pa in. No chest pain or shortness of breath. Patient was said to have missed a dialysis on Sunday because she had not been feeling quite well. Work-up in the emergency room , labs shows blood glucose of 533, anion gap of 28, BUN of 61 and creatinine of 10.3. CT of the head reveals no acute abnormality. Patient has been started on IV fluid and insulin drip. She was closely monitored in the intensive care unit. Past Medical History: dialysis, DVT, ESRD, hypertension, migraines, stroke Past Surgical History: No surgical history Social history: no significant social history Allergic to Vancomycin. Patient awake. Patient is on room air. O2 saturation reported 99%. No complaint of chest pain, shortness of breath . Complaining slight cough. Patient afebrile. No leukocytosis. Blood pressure 127/67, Pulse 65 , Respi rations 18. Patients last blood sugur 89. Monitor blood sugur closely. Recommend to repeat anion gap. Chest xray 08/17/21 reported is poor inspiration. No significant pulmonary or pleural abnormality. No pneumothorax. Venous doppler studies Bilateral 08/17/21 reported No sonographic evidence for acute DVT in either lower extremity. 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 Patient is on S/C Heparin, Famotidine, Albuterol inhaler, Fluconazole. Objective Vital Signs - 12hr 09/09/21 09/09/21 04:20 07:10 Temperature 98.3 F 98.7 F Pulse Rate 64 64 Respiratory 16 16 Rate Blood Pressure 127/63 124/65 O2 Sat by Pulse 96 96 Oximetry Constitutional: no acute distress, alert, other (middle aged obese female with normal respiratory effort at rest) Eyes: non-icteric ENT: oropharynx moist, oropharyngeal exudate pre (thrush), other (Small bowel feeding tube in nares) Neck: supple, no lymphadenopathy, no JVD, other (large circumference) Effort: normal Ascultation: Bilateral: diminished breath sounds Percussion: Bilateral: not dull Cardiovascular: regular rate and rhythm, other (S1,S2) Gastrointestinal: normoactive bowel sounds, soft, non-tender, non-distended (protuberant), other (obese) Integumentary: normal Extremities: no cyanosis, no edema, pulses normal, no ischemia or petechiae Neurologic: normal mental status, pupils equal and round, CN II-XII normal Psychiatric: mood appropriate, affect normal CBC and BMP: 09/08/21 05:31 09/08/21 05:31 ABG, PT/INR, D-dimer: PT/INR, D-dimer PT 14.0 Sec. (12.2-14.9) 08/23/21 22:59 INR 0.97 (0.87-1.13) 08/23/21 22:59 D-Dimer 2695.37 ng/mlDDU (0-234) H 08/17/21 14:40 Abnormal lab findings: Abnormal Labs 08/17/21 08/17/21 08/17/21 00:33 00:33 02:07 WBC Hgb MCH RDW 19.7 H Lymph % (Auto) 10.5 L [place] % (Auto) Lymph # (Auto) 1.1 L [place] # (Auto) Baso # (Auto) Seg Neutrophils % 79.1 H Seg Neutrophils # 8.6 H D-Dimer Sodium 132 L 134 L Chloride 87.8 L 88.4 L Carbon Dioxide 21 L BUN 61 H 61 H Creatinine 10.1 H 10.3 H Glucose 594 H* 533 H* POC Glucose Hemoglobin A1c Calcium Phosphorus Magnesium ALT < 5 L Alkaline Phosphatase 182 H NT-Pro-B Natriuret Pep 73710 H Total Protein Albumin HDL Cholesterol TSH Salicylates Acetaminophen 08/17/21 08/17/21 08/17/21 02:07 02:07 02:07 WBC Hgb MCH RDW Lymph % (Auto) [place] % (Auto) Lymph # (Auto) [place] # (Auto) Baso # (Auto) Seg Neutrophils % Seg Neutrophils # D-Dimer Sodium Chloride Carbon Dioxide BUN Creatinine Glucose POC Glucose Hemoglobin A1c Calcium Phosphorus Magnesium ALT Alkaline Phosphatase NT-Pro-B Natriuret Pep Total Protein Albumin HDL Cholesterol TSH 5.080 H Salicylates < 0.3 L Acetaminophen 5.0 L 08/17/21 08/17/21 08/17/21 04:20 04:20 05:09 WBC Hgb MCH RDW Lymph % (Auto) [place] % (Auto) Lymph # (Auto) [place] # (Auto) Baso # (Auto) Seg Neutrophils % Seg Neutrophils # D-Dimer Sodium 136 L Chloride 90.9 L Carbon Dioxide BUN 61 H Creatinine 10.4 H Glucose 351 H POC Glucose 298 H Hemoglobin A1c Calcium Phosphorus 6.20 H Magnesium ALT Alkaline Phosphatase NT-Pro-B Natriuret Pep Total Protein Albumin HDL Cholesterol TSH Salicylates Acetaminophen 08/17/21 08/17/21 08/17/21 09:58 10:53 13:14 WBC Hgb MCH RDW Lymph % (Auto) [place] % (Auto) Lymph # (Auto) [place] # (Auto) Baso # (Auto) Seg Neutrophils % Seg Neutrophils # D-Dimer Sodium Chloride Carbon Dioxide BUN Creatinine Glucose POC Glucose 139 H 162 H 145 H Hemoglobin A1c Calcium Phosphorus Magnesium ALT Alkaline Phosphatase NT-Pro-B Natriuret Pep Total Protein Albumin HDL Cholesterol TSH Salicylates Acetaminophen 08/17/21 08/17/21 08/17/21 14:40 14:40 14:40 WBC Hgb MCH RDW Lymph % (Auto) [place] % (Auto) Lymph # (Auto) [place] # (Auto) Baso # (Auto) Seg Neutrophils % Seg Neutrophils # D-Dimer 2695.37 H Sodium Chloride 96.7 L Carbon Dioxide BUN 63 H Creatinine 10.7 H Glucose 145 H POC Glucose Hemoglobin A1c Calcium Phosphorus Magnesium ALT Alkaline Phosphatase NT-Pro-B Natriuret Pep Total Protein Albumin HDL Cholesterol 30 L TSH Salicylates Acetaminophen 08/17/21 08/17/21 08/17/21 14:40 16:45 17:47 WBC Hgb MCH RDW Lymph % (Auto) [place] % (Auto) Lymph # (Auto) [place] # (Auto) Baso # (Auto) Seg Neutrophils % Seg Neutrophils # D-Dimer Sodium Chloride 96.2 L Carbon Dioxide BUN 44 H Creatinine 7.2 H Glucose 167 H POC Glucose 136 H 165 H Hemoglobin A1c Calcium Phosphorus Magnesium ALT Alkaline Phosphatase NT-Pro-B Natriuret Pep Total Protein Albumin HDL Cholesterol TSH Salicylates Acetaminophen 08/17/21 08/17/21 08/17/21 18:01 21:01 22:40 WBC Hgb MCH RDW Lymph % (Auto) [place] % (Auto) Lymph # (Auto) [place] # (Auto) Baso # (Auto) Seg Neutrophils % Seg Neutrophils # D-Dimer Sodium Chloride 97.1 L 96.4 L Carbon Dioxide BUN 39 H 40 H Creatinine 8.0 H 8.5 H Glucose 122 H 109 H POC Glucose 172 H Hemoglobin A1c Calcium Phosphorus Magnesium ALT Alkaline Phosphatase NT-Pro-B Natriuret Pep Total Protein Albumin HDL Cholesterol TSH Salicylates Acetaminophen 08/17/21 08/18/21 08/18/21 22:40 02:13 04:56 WBC Hgb MCH 27 L RDW 19.7 H Lymph % (Auto) [place] % (Auto) Lymph # (Auto) [place] # (Auto) Baso # (Auto) Seg Neutrophils % Seg Neutrophils # D-Dimer Sodium Chloride 96.8 L Carbon Dioxide BUN 44 H Creatinine 9.3 H Glucose 170 H POC Glucose 190 H Hemoglobin A1c Calcium Phosphorus 6.70 H Magnesium ALT Alkaline Phosphatase NT-Pro-B Natriuret Pep Total Protein Albumin HDL Cholesterol TSH Salicylates Acetaminophen 08/18/21 08/18/21 08/18/21 04:56 04:56 17:01 WBC Hgb MCH 27 L RDW 19.7 H Lymph % (Auto) [place] % (Auto) 9.7 H Lymph # (Auto) [place] # (Auto) Baso # (Auto) Seg Neutrophils % Seg Neutrophils # D-Dimer Sodium Chloride Carbon Dioxide BUN Creatinine Glucose POC Glucose 228 H Hemoglobin A1c 10.2 H Calcium Phosphorus Magnesium ALT Alkaline Phosphatase NT-Pro-B Natriuret Pep Total Protein Albumin HDL Cholesterol TSH Salicylates Acetaminophen 08/18/21 08/19/21 08/19/21 23:58 04:37 04:37 WBC Hgb MCH 27 L RDW 19.5 H Lymph % (Auto) [place] % (Auto) Lymph # (Auto) [place] # (Auto) Baso # (Auto) Seg Neutrophils % Seg Neutrophils # D-Dimer Sodium Chloride 96.7 L Carbon Dioxide 21 L BUN 57 H Creatinine 10.2 H Glucose 151 H POC Glucose 192 H Hemoglobin A1c Calcium Phosphorus Magnesium ALT Alkaline Phosphatase NT-Pro-B Natriuret Pep Total Protein Albumin HDL Cholesterol TSH Salicylates Acetaminophen 08/19/21 08/19/21 08/20/21 17:46 22:59 04:24 WBC Hgb MCH RDW Lymph % (Auto) [place] % (Auto) Lymph # (Auto) [place] # (Auto) Baso # (Auto) Seg Neutrophils % Seg Neutrophils # D-Dimer Sodium 133 L Chloride 87.9 L Carbon Dioxide 15 L BUN 33 H Creatinine 7.3 H Glucose 365 H POC Glucose 217 H 282 H Hemoglobin A1c Calcium Phosphorus 6.50 H Magnesium ALT Alkaline Phosphatase NT-Pro-B Natriuret Pep Total Protein Albumin HDL Cholesterol TSH Salicylates Acetaminophen 08/20/21 08/20/21 08/20/21 06:07 07:51 15:37 WBC Hgb MCH RDW Lymph % (Auto) [place] % (Auto) Lymph # (Auto) [place] # (Auto) Baso # (Auto) Seg Neutrophils % Seg Neutrophils # D-Dimer Sodium Chloride Carbon Dioxide BUN Creatinine Glucose POC Glucose 398 H 308 H 247 H Hemoglobin A1c Calcium Phosphorus Magnesium ALT Alkaline Phosphatase NT-Pro-B Natriuret Pep Total Protein Albumin HDL Cholesterol TSH Salicylates Acetaminophen 08/20/21 08/21/21 08/21/21 23:22 04:45 05:07 WBC Hgb MCH RDW Lymph % (Auto) [place] % (Auto) Lymph # (Auto) [place] # (Auto) Baso # (Auto) Seg Neutrophils % Seg Neutrophils # D-Dimer Sodium 134 L Chloride 92.9 L Carbon Dioxide BUN 48 H Creatinine 8.0 H Glucose 389 H POC Glucose 316 H 407 H Hemoglobin A1c Calcium 10.6 H Phosphorus Magnesium ALT Alkaline Phosphatase NT-Pro-B Natriuret Pep Total Protein Albumin HDL Cholesterol TSH Salicylates Acetaminophen 08/21/21 08/21/21 08/21/21 11:37 15:52 23:44 WBC Hgb MCH RDW Lymph % (Auto) [place] % (Auto) Lymph # (Auto) [place] # (Auto) Baso # (Auto) Seg Neutrophils % Seg Neutrophils # D-Dimer Sodium Chloride Carbon Dioxide BUN Creatinine Glucose POC Glucose 244 H 325 H 221 H Hemoglobin A1c Calcium Phosphorus Magnesium ALT Alkaline Phosphatase NT-Pro-B Natriuret Pep Total Protein Albumin HDL Cholesterol TSH Salicylates Acetaminophen 08/22/21 08/22/21 08/23/21 06:06 12:27 00:37 WBC Hgb MCH RDW Lymph % (Auto) [place] % (Auto) Lymph # (Auto) [place] # (Auto) Baso # (Auto) Seg Neutrophils % Seg Neutrophils # D-Dimer Sodium Chloride Carbon Dioxide BUN Creatinine Glucose POC Glucose 224 H 247 H 341 H Hemoglobin A1c Calcium Phosphorus Magnesium ALT Alkaline Phosphatase NT-Pro-B Natriuret Pep Total Protein Albumin HDL Cholesterol TSH Salicylates Acetaminophen 08/23/21 08/23/21 08/23/21 04:20 05:37 11:56 WBC Hgb MCH RDW Lymph % (Auto) [place] % (Auto) Lymph # (Auto) [place] # (Auto) Baso # (Auto) Seg Neutrophils % Seg Neutrophils # D-Dimer Sodium Chloride 94.4 L Carbon Dioxide BUN 49 H Creatinine 7.7 H Glucose 201 H POC Glucose 210 H 162 H Hemoglobin A1c Calcium 10.9 H Phosphorus Magnesium ALT Alkaline Phosphatase NT-Pro-B Natriuret Pep Total Protein Albumin HDL Cholesterol TSH Salicylates Acetaminophen 08/23/21 08/23/21 08/23/21 17:45 22:58 22:59 WBC 12.2 H Hgb MCH 26 L RDW 20.3 H Lymph % (Auto) [place] % (Auto) Lymph # (Auto) [place] # (Auto) Baso # (Auto) Seg Neutrophils % Seg Neutrophils # D-Dimer Sodium Chloride Carbon Dioxide BUN Creatinine Glucose POC Glucose 211 H 218 H Hemoglobin A1c Calcium Phosphorus Magnesium ALT Alkaline Phosphatase NT-Pro-B Natriuret Pep Total Protein Albumin HDL Cholesterol TSH Salicylates Acetaminophen 08/23/21 08/24/21 08/24/21 22:59 04:23 04:23 WBC 15.4 H Hgb MCH 27 L RDW 19.8 H Lymph % (Auto) [place] % (Auto) 13.0 H Lymph # (Auto) [place] # (Auto) 2.0 H Baso # (Auto) 0.2 H Seg Neutrophils % Seg Neutrophils # 9.8 H D-Dimer Sodium 136 L Chloride 93.0 L Carbon Dioxide BUN 73 H Creatinine 8.7 H 9.2 H Glucose 145 H POC Glucose Hemoglobin A1c Calcium 10.7 H Phosphorus 6.30 H Magnesium 2.70 H ALT 6 L Alkaline Phosphatase 157 H NT-Pro-B Natriuret Pep Total Protein Albumin 3.7 L HDL Cholesterol TSH Salicylates Acetaminophen 08/24/21 08/24/21 08/24/21 05:09 11:20 18:28 WBC Hgb MCH RDW Lymph % (Auto) [place] % (Auto) Lymph # (Auto) [place] # (Auto) Baso # (Auto) Seg Neutrophils % Seg Neutrophils # D-Dimer Sodium Chloride Carbon Dioxide BUN Creatinine Glucose POC Glucose 155 H 110 H 182 H Hemoglobin A1c Calcium Phosphorus Magnesium ALT Alkaline Phosphatase NT-Pro-B Natriuret Pep Total Protein Albumin HDL Cholesterol TSH Salicylates Acetaminophen 08/25/21 08/25/21 08/25/21 00:15 04:44 11:28 WBC 11.3 H Hgb MCH 27 L RDW 20.4 H Lymph % (Auto) [place] % (Auto) Lymph # (Auto) [place] # (Auto) Baso # (Auto) Seg Neutrophils % Seg Neutrophils # D-Dimer Sodium Chloride Carbon Dioxide BUN Creatinine Glucose POC Glucose 247 H 189 H Hemoglobin A1c Calcium Phosphorus Magnesium ALT Alkaline Phosphatase NT-Pro-B Natriuret Pep Total Protein Albumin HDL Cholesterol TSH Salicylates Acetaminophen 08/25/21 08/25/21 08/26/21 16:42 23:29 05:22 WBC Hgb MCH RDW Lymph % (Auto) [place] % (Auto) Lymph # (Auto) [place] # (Auto) Baso # (Auto) Seg Neutrophils % Seg Neutrophils # D-Dimer Sodium Chloride Carbon Dioxide BUN Creatinine 10.0 H Glucose POC Glucose 169 H 213 H Hemoglobin A1c Calcium Phosphorus Magnesium ALT Alkaline Phosphatase NT-Pro-B Natriuret Pep Total Protein Albumin HDL Cholesterol TSH Salicylates Acetaminophen 08/26/21 08/26/21 08/26/21 06:12 11:47 23:33 WBC Hgb MCH RDW Lymph % (Auto) [place] % (Auto) Lymph # (Auto) [place] # (Auto) Baso # (Auto) Seg Neutrophils % Seg Neutrophils # D-Dimer Sodium Chloride Carbon Dioxide BUN Creatinine Glucose POC Glucose 191 H 197 H 197 H Hemoglobin A1c Calcium Phosphorus Magnesium ALT Alkaline Phosphatase NT-Pro-B Natriuret Pep Total Protein Albumin HDL Cholesterol TSH Salicylates Acetaminophen 08/27/21 08/27/21 08/27/21 06:02 06:02 06:17 WBC Hgb MCH 27 L RDW 20.1 H Lymph % (Auto) [place] % (Auto) 14.2 H Lymph # (Auto) [place] # (Auto) 1.4 H Baso # (Auto) Seg Neutrophils % Seg Neutrophils # D-Dimer Sodium 134 L Chloride 93.8 L Carbon Dioxide BUN 56 H Creatinine 6.4 H Glucose 253 H POC Glucose 250 H Hemoglobin A1c Calcium Phosphorus 6.00 H Magnesium 2.50 H ALT < 5 L Alkaline Phosphatase 135 H NT-Pro-B Natriuret Pep Total Protein Albumin 3.6 L HDL Cholesterol TSH Salicylates Acetaminophen 08/27/21 08/27/21 08/27/21 11:21 16:05 23:13 WBC Hgb MCH RDW Lymph % (Auto) [place] % (Auto) Lymph # (Auto) [place] # (Auto) Baso # (Auto) Seg Neutrophils % Seg Neutrophils # D-Dimer Sodium Chloride Carbon Dioxide BUN Creatinine Glucose POC Glucose 287 H 321 H 286 H Hemoglobin A1c Calcium Phosphorus Magnesium ALT Alkaline Phosphatase NT-Pro-B Natriuret Pep Total Protein Albumin HDL Cholesterol TSH Salicylates Acetaminophen 08/28/21 08/28/21 08/28/21 05:11 05:29 11:30 WBC Hgb MCH RDW Lymph % (Auto) [place] % (Auto) Lymph # (Auto) [place] # (Auto) Baso # (Auto) Seg Neutrophils % Seg Neutrophils # D-Dimer Sodium 134 L Chloride 91.8 L Carbon Dioxide BUN 79 H Creatinine 8.2 H Glucose 230 H POC Glucose 225 H 190 H Hemoglobin A1c Calcium 10.8 H Phosphorus Magnesium ALT Alkaline Phosphatase NT-Pro-B Natriuret Pep Total Protein Albumin HDL Cholesterol TSH Salicylates Acetaminophen 08/28/21 08/29/21 08/29/21 15:53 00:04 04:29 WBC Hgb MCH 27 L RDW 20.6 H Lymph % (Auto) [place] % (Auto) Lymph # (Auto) [place] # (Auto) Baso # (Auto) Seg Neutrophils % Seg Neutrophils # D-Dimer Sodium Chloride Carbon Dioxide BUN Creatinine Glucose POC Glucose 235 H 223 H Hemoglobin A1c Calcium Phosphorus Magnesium ALT Alkaline Phosphatase NT-Pro-B Natriuret Pep Total Protein Albumin HDL Cholesterol TSH Salicylates Acetaminophen 08/29/21 08/29/21 08/29/21 04:29 05:37 16:14 WBC Hgb MCH RDW Lymph % (Auto) [place] % (Auto) Lymph # (Auto) [place] # (Auto) Baso # (Auto) Seg Neutrophils % Seg Neutrophils # D-Dimer Sodium Chloride Carbon Dioxide BUN Creatinine 9.8 H Glucose POC Glucose 174 H 200 H Hemoglobin A1c Calcium Phosphorus Magnesium ALT Alkaline Phosphatase NT-Pro-B Natriuret Pep Total Protein Albumin HDL Cholesterol TSH Salicylates Acetaminophen 08/30/21 08/30/21 08/30/21 00:10 05:12 05:12 WBC Hgb MCH 27 L RDW 20.2 H Lymph % (Auto) [place] % (Auto) 12.7 H Lymph # (Auto) [place] # (Auto) 1.4 H Baso # (Auto) 0.2 H Seg Neutrophils % Seg Neutrophils # D-Dimer Sodium Chloride 97.5 L Carbon Dioxide BUN 58 H Creatinine 6.9 H Glucose 112 H POC Glucose 111 H Hemoglobin A1c Calcium 10.8 H Phosphorus 6.00 H Magnesium 2.80 H ALT Alkaline Phosphatase 147 H NT-Pro-B Natriuret Pep Total Protein Albumin HDL Cholesterol TSH Salicylates Acetaminophen 08/30/21 08/31/21 08/31/21 16:40 00:27 04:30 WBC Hgb MCH RDW Lymph % (Auto) [place] % (Auto) Lymph # (Auto) [place] # (Auto) Baso # (Auto) Seg Neutrophils % Seg Neutrophils # D-Dimer Sodium Chloride Carbon Dioxide BUN Creatinine Glucose POC Glucose 224 H 200 H 125 H Hemoglobin A1c Calcium Phosphorus Magnesium ALT Alkaline Phosphatase NT-Pro-B Natriuret Pep Total Protein Albumin HDL Cholesterol TSH Salicylates Acetaminophen 09/02/21 09/02/21 09/03/21 06:04 18:25 00:55 WBC Hgb MCH RDW Lymph % (Auto) [place] % (Auto) Lymph # (Auto) [place] # (Auto) Baso # (Auto) Seg Neutrophils % Seg Neutrophils # D-Dimer Sodium Chloride Carbon Dioxide BUN Creatinine Glucose POC Glucose 68 L 134 H 110 H Hemoglobin A1c Calcium Phosphorus Magnesium ALT Alkaline Phosphatase NT-Pro-B Natriuret Pep Total Protein Albumin HDL Cholesterol TSH Salicylates Acetaminophen 09/03/21 09/03/21 09/04/21 05:53 16:10 00:11 WBC Hgb MCH RDW Lymph % (Auto) [place] % (Auto) Lymph # (Auto) [place] # (Auto) Baso # (Auto) Seg Neutrophils % Seg Neutrophils # D-Dimer Sodium Chloride Carbon Dioxide BUN Creatinine Glucose POC Glucose 64 L 60 L 69 L Hemoglobin A1c Calcium Phosphorus Magnesium ALT Alkaline Phosphatase NT-Pro-B Natriuret Pep Total Protein Albumin HDL Cholesterol TSH Salicylates Acetaminophen 09/04/21 09/04/21 09/04/21 06:01 07:29 10:04 WBC Hgb MCH RDW Lymph % (Auto) [place] % (Auto) Lymph # (Auto) [place] # (Auto) Baso # (Auto) Seg Neutrophils % Seg Neutrophils # D-Dimer Sodium Chloride 96.1 L Carbon Dioxide BUN 48 H Creatinine 7.8 H Glucose 102 H POC Glucose 116 H 119 H Hemoglobin A1c Calcium 10.4 H Phosphorus Magnesium ALT Alkaline Phosphatase NT-Pro-B Natriuret Pep Total Protein Albumin HDL Cholesterol TSH Salicylates Acetaminophen 09/04/21 09/04/21 09/05/21 10:59 16:24 00:36 WBC Hgb MCH RDW Lymph % (Auto) [place] % (Auto) Lymph # (Auto) [place] # (Auto) Baso # (Auto) Seg Neutrophils % Seg Neutrophils # D-Dimer Sodium Chloride Carbon Dioxide BUN Creatinine Glucose POC Glucose 137 H 149 H 139 H Hemoglobin A1c Calcium Phosphorus Magnesium ALT Alkaline Phosphatase NT-Pro-B Natriuret Pep Total Protein Albumin HDL Cholesterol TSH Salicylates Acetaminophen 09/05/21 09/05/21 09/05/21 04:57 06:43 16:22 WBC 11.6 H Hgb 9.9 L MCH 27 L RDW 20.4 H Lymph % (Auto) [place] % (Auto) Lymph # (Auto) [place] # (Auto) Baso # (Auto) Seg Neutrophils % Seg Neutrophils # D-Dimer Sodium Chloride Carbon Dioxide BUN Creatinine Glucose POC Glucose 149 H 188 H Hemoglobin A1c Calcium Phosphorus Magnesium ALT Alkaline Phosphatase NT-Pro-B Natriuret Pep Total Protein Albumin HDL Cholesterol TSH Salicylates Acetaminophen 09/05/21 09/06/21 09/06/21 23:42 05:39 05:39 WBC Hgb MCH 27 L RDW 20.2 H Lymph % (Auto) [place] % (Auto) 9.2 H Lymph # (Auto) [place] # (Auto) 1.0 H Baso # (Auto) Seg Neutrophils % Seg Neutrophils # D-Dimer Sodium Chloride 94.2 L Carbon Dioxide BUN 35 H Creatinine 6.3 H Glucose 167 H POC Glucose 223 H Hemoglobin A1c Calcium 10.8 H Phosphorus 5.30 H Magnesium 2.50 H ALT Alkaline Phosphatase 154 H NT-Pro-B Natriuret Pep Total Protein 8.4 H Albumin 3.8 L HDL Cholesterol TSH Salicylates Acetaminophen 09/06/21 09/06/21 09/06/21 07:02 11:50 16:46 WBC Hgb MCH RDW Lymph % (Auto) [place] % (Auto) Lymph # (Auto) [place] # (Auto) Baso # (Auto) Seg Neutrophils % Seg Neutrophils # D-Dimer Sodium Chloride Carbon Dioxide BUN Creatinine Glucose POC Glucose 169 H 158 H 110 H Hemoglobin A1c Calcium Phosphorus Magnesium ALT Alkaline Phosphatase NT-Pro-B Natriuret Pep Total Protein Albumin HDL Cholesterol TSH Salicylates Acetaminophen 09/07/21 09/07/21 09/07/21 00:29 12:57 16:57 WBC Hgb MCH RDW Lymph % (Auto) [place] % (Auto) Lymph # (Auto) [place] # (Auto) Baso # (Auto) Seg Neutrophils % Seg Neutrophils # D-Dimer Sodium Chloride Carbon Dioxide BUN Creatinine Glucose POC Glucose 148 H 146 H 157 H Hemoglobin A1c Calcium Phosphorus Magnesium ALT Alkaline Phosphatase NT-Pro-B Natriuret Pep Total Protein Albumin HDL Cholesterol TSH Salicylates Acetaminophen 09/08/21 09/08/21 09/08/21 05:31 05:31 10:11 WBC Hgb MCH RDW 20.3 H Lymph % (Auto) [place] % (Auto) 9.3 H Lymph # (Auto) [place] # (Auto) Baso # (Auto) Seg Neutrophils % Seg Neutrophils # D-Dimer Sodium Chloride 95.9 L Carbon Dioxide BUN 36 H Creatinine 6.5 H Glucose POC Glucose 106 H Hemoglobin A1c Calcium 10.8 H Phosphorus 5.30 H Magnesium 2.50 H ALT 6 L Alkaline Phosphatase NT-Pro-B Natriuret Pep Total Protein Albumin 3.6 L HDL Cholesterol TSH Salicylates Acetaminophen 09/08/21 09/08/21 09/08/21 11:24 17:15 23:25 WBC Hgb MCH RDW Lymph % (Auto) [place] % (Auto) Lymph # (Auto) [place] # (Auto) Baso # (Auto) Seg Neutrophils % Seg Neutrophils # D-Dimer Sodium Chloride Carbon Dioxide BUN Creatinine Glucose POC Glucose 106 H 107 H 124 H Hemoglobin A1c Calcium Phosphorus Magnesium ALT Alkaline Phosphatase NT-Pro-B Natriuret Pep Total Protein Albumin HDL Cholesterol TSH Salicylates Acetaminophen 09/09/21 05:15 WBC Hgb MCH RDW Lymph % (Auto) [place] % (Auto) Lymph # (Auto) [place] # (Auto) Baso # (Auto) Seg Neutrophils % Seg Neutrophils # D-Dimer Sodium Chloride Carbon Dioxide BUN Creatinine Glucose POC Glucose 66 L Hemoglobin A1c Calcium Phosphorus Magnesium ALT Alkaline Phosphatase NT-Pro-B Natriuret Pep Total Protein Albumin HDL Cholesterol TSH Salicylates Acetaminophen Allied health notes reviewed: nursing
--- NOTE | 2021-09-09 13:29 | Progress Note ---
Assessment and Plan Assessment and plan: #Right upper extremity AV graft thrombosis #End Stage Renal Disease requiring hemodialysis -s/p AVF declotting 08/26 via IR/Vascular surgery -s/p vascular surgery/ thrombectomy of right arm AV loop graft. -temporary vasc cath removed 08/26 -continue HD per Nephro -avoid nephrotoxic medications; Renally dose medications #DKA (Diabetic Ketoacidosis)-resolved #Type II diabetes, insulin dependent -s/p insulin gtt -Patient with hypoglycemia secondary to reduced oral intake; continue tube feeds -Hgb A1C 10.2% -continue lantus 22U BID, continue SSI -goal glucose 140-180 while inpatient; currently controlled #Sepsisruled out -patient afebrile, WBC normalizing -Blood cultures with NGTD x 5days -s/p IV abx, none needed due to no infectious process found -ID consulted, signed off #Acute Metabolic Encephalopathy-improving #H/o CVA (cerebral infarction) with left-sided deficits -Multifactorial, DKA vs azotemia vs infectious process -Awake and tracking and following commands this morning -CT head and MRI brain noted with no acute abnormality -Neurology consulted, appreciated recommendations -c/f seizure, continue Keppra -PRN Haldol for agitation -Fall and safety precaution -Aspiration precaution -Frequent reorientation -Avoid benzodiazepine to reduce the possibility of delirium -Maintenance of sleep-wake cycle -PT/OT/Speech ordered -Psychiatry consulted: Patient Celexa increased #Hypertension -continue home BP medications -PRN Hydralazine and Labetalol for SBP greater than 160 #Elevated D-Dimer #H/o DVT -BLE doppler showed no evidence for acute DVT in either lower extremity. 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 -Per patient's mother, patient has been off coumadin for a couple of years -Continue Heparin SubQ -low suspicion for PE, will order V/Q scan if return of fever, dyspnea -Patient might benefit from PO AC at discharge, wild defer to PCP #Hypothyroidism -continue synthroid #Dysphagia-resolved -Patient failed initial speech eval due to mental status -Discontinue NG tube and tube feeds as patient successfully passed swallow evaluation was necessary. Gastroenterology consulted for PEG tube placement; appreciate recs. GI also agrees with declining PEG tube placement. #GI/ DVT Prophylaxis -PPI- Pepcid -heparin SubQ -SCDs to bilateral lower extremities while in bed #Discharge planning - Patient is pending authorization at a rehab facility. - Case management has been made aware. Disposition Plan: Pending rehab/subacute placement Total Time Spent with Patient (Minutes): 45 minutes History Interval history: No acute events overnight. Hospitalist Physical - Constitutional Vitals: Temp Pulse Resp BP Pulse Ox 98.7 F 64 16 124/65 96 09/09/21 07:10 09/09/21 07:10 09/09/21 07:10 09/09/21 07:10 09/09/21 07:10 General appearance: Present: no acute distress, well-nourished - EENT Eyes: Present: PERRL, EOM intact ENT: hearing intact, clear oral mucosa, dentition normal - Neck Neck: Present: supple, normal ROM - Respiratory Respiratory effort: normal Respiratory: bilateral: CTA - Cardiovascular Rhythm: regular Heart Sounds: Present: S1 & S2 - Extremities Extremities: no ischemia, pulses intact, pulses symmetrical, No edema, normal te mperature, normal color Peripheral Pulses: within normal limits - Abdominal General gastrointestinal: soft, non-tender, non-distended, normal bowel sounds - Integumentary Integumentary: Present: clear, warm, dry - Psychiatric Psychiatric: appropriate mood/affect, intact judgment & insight, memory intact, cooperative - Neurologic Neurologic: CNII-XII intact, other (Generalized weakness) - Allied Health Allied health notes reviewed: nursing Results - Labs CBC & Chem 7: 09/08/21 05:31 09/08/21 05:31 Labs: Laboratory Last Values WBC 8.3 K/mm3 (4.5-11.0) 09/08/21 05:31 RBC 4.03 M/mm3 (3.65-5.03) 09/08/21 05:31 Hgb 11.1 gm/dl (10.1-14.3) 09/08/21 05:31 Hct 34.6 % (30.3-42.9) 09/08/21 05:31 MCV 86 fl (79-97) 09/08/21 05:31 MCH 28 pg (28-32) 09/08/21 05:31 MCHC 32 % (30-34) 09/08/21 05:31 RDW 20.3 % (13.2-15.2) H 09/08/21 05:31 Plt Count 164 K/mm3 (140-440) 09/08/21 05:31 Lymph % (Auto) 28.6 % (13.4-35.0) 09/08/21 05:31 Bath % (Auto) 9.3 % (0.0-7.3) H 09/08/21 05:31 Eos % (Auto) 3.4 % (0.0-4.3) 09/08/21 05:31 Baso % (Auto) 1.0 % (0.0-1.8) 09/08/21 05:31 Lymph # (Auto) 2.4 K/mm3 (1.2-5.4) 09/08/21 05:31 [place] # (Auto) 0.8 K/mm3 (0.0-0.8) 09/08/21 05:31 Eos # (Auto) 0.3 K/mm3 (0.0-0.4) 09/08/21 05:31 Baso # (Auto) 0.1 K/mm3 (0.0-0.1) 09/08/21 05:31 Seg Neutrophils % 57.7 % (40.0-70.0) 09/08/21 05:31 Seg Neutrophils # 4.8 K/mm3 (1.8-7.7) 09/08/21 05:31 PT 14.0 Sec. (12.2-14.9) 08/23/21 22:59 INR 0.97 (0.87-1.13) 08/23/21 22:59 APTT 27.9 Sec. (24.2-36.6) 08/23/21 22:59 D-Dimer 2695.37 ng/mlDDU (0-234) H 08/17/21 14:40 Sodium 139 mmol/L (137-145) 09/08/21 05:31 Potassium 3.9 mmol/L (3.6-5.0) 09/08/21 05:31 Chloride 95.9 mmol/L (98-107) L 09/08/21 05:31 Carbon Dioxide 29 mmol/L (22-30) 09/08/21 05:31 Anion Gap 18 mmol/L 09/08/21 05:31 BUN 36 mg/dL (7-17) H 09/08/21 05:31 Creatinine 6.5 mg/dL (0.6-1.2) H 09/08/21 05:31 Estimated GFR 8 ml/min 09/08/21 05:31 BUN/Creatinine Ratio 6 % 09/08/21 05:31 Glucose 78 mg/dL (65-100) 09/08/21 05:31 POC Glucose 89 mg/dL (70-105) 09/09/21 11:32 Hemoglobin A1c 10.2 % (4-6) H 08/18/21 04:56 Lactic Acid 1.70 mmol/L (0.7-2.0) 08/17/21 02:07 Calcium 10.8 mg/dL (8.4-10.2) H 09/08/21 05:31 Phosphorus 5.30 mg/dL (2.5-4.5) H 09/08/21 05:31 Magnesium 2.50 mg/dL (1.7-2.3) H 09/08/21 05:31 Total Bilirubin 0.30 mg/dL (0.1-1.2) 09/08/21 05:31 AST 13 units/L (5-40) 09/08/21 05:31 ALT 6 units/L (7-56) L 09/08/21 05:31 Alkaline Phosphatase 122 units/L (35-129) 09/08/21 05:31 NT-Pro-B Natriuret Pep 61919 pg/mL (0-450) H 08/17/21 02:07 Total Protein 7.5 g/dL (6.3-8.2) 09/08/21 05:31 Albumin 3.6 g/dL (3.9-5) L 09/08/21 05:31 Albumin/Globulin Ratio 0.9 % 09/08/21 05:31 Triglycerides 128 mg/dL (2-149) 08/17/21 14:40 Cholesterol 128 mg/dL (50-199) 08/17/21 14:40 LDL Cholesterol Direct 69 mg/dL (50-130) 08/17/21 14:40 HDL Cholesterol 30 mg/dL (40-59) L 08/17/21 14:40 Cholesterol/HDL Ratio 4.26 % 08/17/21 14:40 TSH 5.080 mlU/mL (0.270-4.200) H 08/17/21 02:07 Salicylates < 0.3 mg/dL (2.8-20.0) L 08/17/21 02:07 Acetaminophen 5.0 ug/mL (10.0-30.0) L 08/17/21 02:07 Plasma/Serum Alcohol < 0.01 % (0-0.07) 08/17/21 02:07 Coronavirus (PCR) Negative (Negative) 09/01/21 09:52 SARS-CoV-2 (PCR) Negative (Negative) 08/17/21 09:12 Hepatitis A IgM Ab Non-reactive (NonReactive) 08/17/21 14:40 Hep Bs Antigen Non-reactive (Negative) 08/17/21 14:40 Hep B Core IgM Ab Non-reactive (NonReactive) 08/17/21 14:40 Hepatitis C Antibody Non-reactive (NonReactive) 08/17/21 14:40 Blood Type O POSITIVE 08/17/21 17:43 Antibody Screen Negative 08/17/21 17:43 Tomas/IV: Voiding Method Bedside Commode Active Medications - Current Medications Current Medications: Generic Name Dose Route Start Last Admin Trade Name Freq PRN Reason Stop Dose Admin Acetaminophen 650 mg 08/17/21 07:50 08/30/21 20:25 Acetaminophen 325 Mg Tab PO 650 mg Q6H PRN Administration Pain, Mild (1-3) Acetaminophen 650 mg 08/17/21 08:17 08/17/21 14:49 Acetaminophen 650 Mg Rect Supp [place] 650 mg Q4H PRN Administration Pain, Mild (1-3) Albuterol 2.5 mg 08/29/21 20:00 Albuterol 2.5 Mg/3 Ml Nebu IH Q4HRT PRN Shortness Of Breath Amlodipine Besylate 10 mg 08/22/21 11:00 09/09/21 09:33 Amlodipine 10 Mg Tab PO 10 mg QDAY HAM Administration Lipase/Protease/Amylase 1 each 08/26/21 16:00 Lipase 10,500/Protease 25,000/Amylase 43,750 (Units) Dr Lopez FEEDTUBE PRN PRN For Clogged Feeding Tube Aspirin 325 mg 08/22/21 10:00 09/09/21 09:33 Aspirin 325 Mg Tab FEEDTUBE 325 mg QDAY HAM Administration Atorvastatin Calcium 40 mg 08/29/21 22:00 09/08/21 22:04 Atorvastatin 40 Mg Tab PO 40 mg QHS HAM Administration Citalopram Hydrobromide 40 mg 09/04/21 10:00 09/09/21 09:34 Citalopram 20 Mg Tab PO 40 mg QDAY HAM Administration Clonidine HCl 0.1 mg 08/29/21 20:00 09/09/21 09:34 Clonidine 0.1 Mg Tab PO 0.1 mg TID HAM Administration Dextrose 50 ml 08/17/21 23:37 Dextrose 50% In Water (25gm) 50 Ml Syringe IV Q30MIN PRN Hypoglycemia Protocol Diphenhydramine HCl 25 mg 09/07/21 09:30 09/09/21 09:34 Diphenhydramine 25 Mg Cap PO 25 mg Q8H PRN Administration Itching Famotidine 20 mg 08/20/21 10:00 09/09/21 09:33 Famotidine 20 Mg Tab FEEDTUBE 20 mg QDAY HAM Administration Fluconazole 100 mg 09/05/21 14:00 09/08/21 14:11 Fluconazole 100 Mg/10 Ml Oral Syringe FEEDTUBE 09/10/21 14:01 100 mg Q24H HAM Administration Protocol Haloperidol Lactate 5 mg 08/19/21 12:00 09/01/21 11:41 Haloperidol Lactate 5 Mg/1 Ml Inj IV 5 mg Q6H PRN Administration Agitation Heparin Sodium (Porcine) 5,000 unit 08/17/21 06:00 09/09/21 06:11 Heparin 5,000 Unit/1 Ml Vial SUB-Q 5,000 unit Q8HR HAM Administration Heparin Sodium (Porcine) 3,000 unit 08/17/21 07:41 08/31/21 10:38 Heparin 10,000 Units/10 Ml Vial IV 3,000 unit KATI PRN Administration hemodialysis Hydralazine HCl 100 mg 08/17/21 09:00 09/09/21 09:34 Hydralazine 100 Mg Tab PO 100 mg TID HAM Administration Hydralazine HCl 10 mg 08/17/21 07:56 08/25/21 05:19 Hydralazine 20 Mg/1 Ml Inj IV 10 mg Q4HR PRN Administration Hypertension Hydromorphone HCl 0.25 mg 08/17/21 07:50 09/09/21 09:44 Hydromorphone 0.5 Mg/0.5 Ml Inj IV 0.25 mg Q4H PRN Administration Pain, Moderate (4-6) Hydroxyzine Pamoate 25 mg 09/03/21 14:50 Hydroxyzine Pamoate 25 Mg Cap PO Q6H PRN Anxiety Sodium Chloride 100 mls @ 999 mls/hr 09/08/21 11:17 Nacl 0.9% IV KATI PRN Hypotension Insulin Glargine 15 units 09/09/21 10:00 09/09/21 11:46 Insulin Glargine 100 Units/Ml SUB-Q Not Given BID [facility] Insulin Human Lispro 0 unit 08/18/21 00:00 09/09/21 11:46 Insulin Lispro 100 Unit/Ml SUB-Q Not Given Q6HR [facility] Protocol Levetiracetam 500 mg 08/20/21 10:00 09/09/21 09:33 Levetiracetam 500 Mg Tab PO 500 mg DAILY [facility] Administration Levothyroxine Sodium 125 mcg 08/22/21 06:00 09/09/21 06:11 Levothyroxine 125 Mcg Tab PO 125 mcg QAM@0600 [facility] Administration Lidocaine HCl 15 ml 09/05/21 14:00 09/09/21 09:34 Magic Mouthwash 30ml PO 15 ml TID HAM Administration Losartan Potassium 50 mg 08/17/21 10:00 09/09/21 09:33 Losartan 50 Mg Tab PO 50 mg QDAY [facility] Administration Magnesium Hydroxide 30 ml 08/17/21 04:09 08/23/21 23:56 Magnesium Hydroxide (Mom) Oral Liqd Udc PO 30 ml Q4H PRN Administration Constipation Metoprolol Tartrate 100 mg 08/20/21 11:00 09/09/21 09:34 Metoprolol Tartrate 100 Mg Tab PO 100 mg BID HAM Administration Ondansetron HCl 4 mg 08/17/21 04:09 09/07/21 17:51 Ondansetron 4 Mg/2 Ml Inj IV 4 mg Q8H PRN Administration Nausea And Vomiting Phenol 1 spray 09/04/21 09:54 09/06/21 10:13 Phenol 1.4% 177 Ml Bottle MM 1 spray PRN PRN Administration Sore Throat Promethazine HCl 25 mg 09/07/21 20:33 09/07/21 21:08 Promethazine 25 Mg Rect Supp [place] 25 mg Q6H PRN Administration Nausea And Vomiting Sevelamer Carbonate 2,400 mg 09/06/21 11:30 09/09/21 11:49 Sevelamer Carbonate 800 Mg Tab PO 2,400 mg AC HAM Administration Simple Syrup 15 ml 08/26/21 16:00 09/04/21 00:20 Simple Syrup 15 Ml FEEDTUBE 15 ml PRN PRN Administration Hypoglycemia Simple Syrup 30 ml 08/26/21 16:00 Simple Syrup 15 Ml FEEDTUBE PRN PRN Hypoglycemia Sodium Bicarbonate 325 mg 08/26/21 16:00 Sodium Bicarbonate 325 Mg Tab FEEDTUBE PRN PRN For Clogged Feeding Tube Sodium Chloride 10 ml 08/17/21 10:00 09/09/21 09:35 Sodium Chloride 0.9% 10 Ml Flush Syringe IV 10 ml BID HAM Administration Sodium Chloride 10 ml 08/17/21 04:09 08/19/21 02:59 Sodium Chloride 0.9% 10 Ml Flush Syringe IV 10 ml PRN PRN Administration LINE FLUSH Zolpidem Tartrate 5 mg 09/05/21 22:00 09/08/21 22:10 Zolpidem 5 Mg Tab PO 5 mg QHS PRN Administration Sleep Nutrition/Malnutrition Assess - Dietary Evaluation Nutrition/Malnutrition Findings: Nutrition Notes Start: 08/17/21 12:51 Freq: Status: Active Protocol: Document 09/05/21 13:01 GABRIEL (Rec: 09/05/21 13:04 GABRIEL [id number]) Nutrition Notes Initial or Follow up Reassessment Current Diagnosis CKD (stage V CKD),Diabetes, Hypertension,Stroke Other Pertinent Diagnosis ESRD+HD, R-UE Thrombectomy & AVF, Metabolic Encephalopathy. Current Diet TF-Nepro @ 40 ml/hr (since L 09/03). Labs/Tests 09/04: Cl 96.1, BUN 48, Crea 7 .8, Glu 102, Ca 10.4. Pertinent Medications 09/05: Levothyroxine, others nutritionally unremarkable. Height 5 ft 8 in Weight 77.8 kg [place] Body Weight (kg) 63.63 BMI 26.0 Weight change and time frame 0.5 Kg bodyt weight gain in 1 week reported. Weight Status Overweight Subjective/Other Information RD consult for routine F/U on Tf tolerance/continuation assessment. TF was discontinued and resumed during the week after BONE TENDER assessment and recommendation, and continues as initially prescribed, and well tolerated, according to RN notes. BONE TENDER note on 09/02/21 11:27: Patient demonstrates diminished cognitive function and is holding food with noted spillage from the oral cavity . Much effort with digital manipulatIon of the larynx was conducted to attain initiation of the swallow. Once the swallow was initiated which was over five to seven minutes, she demonstrated good laryngeal excursion with no evidence of aspiration. Patient is currently not appropriate for the mechanical soft diet which was recommended the previous day, due to a change in her current mentation. The anatomical structures are intact; however , she is at risk for aspiration,malnutrition and dehydration secondary to prolonged bolus holding. Recommend an alternative method of nutrition to support her nutritional needs as her mentation waxes and wanes. No further recommendations. Pr is on Room Air, O2 saturation @ 97%, according to Physical Assessment History notes. Pt has missing teeth, according to Physical Assessment History notes. Pt will need to demonstarte adquate swallowing or will need PEG tube before discharge , according to Progress notes. Percent of energy/protein needs met: Prescribed TF-Nepro w/ CARBSTEADY @ 40 ml/hr provides for energy/protein needs (1, 728 Kcal/78 g) during LOS, 97% Kcal; 83% AA. Burn Absent Trauma Absent GI Symptoms None Difficulty In Swallowing Food Allergy No Skin Integrity/Comment Assessment WNL. Current % PO Other Minimum of two criteria No Fluid Accumulation N/A Reduced Environment Coordinator Strength N/A (non-severe) Protein-Calorie Malnutrition N\A #1 Nutrition Diagnosis Inadequate oral intake Diagnosis Progress(for reassessment Continues documentation) Is patient on ventilator? No Is Patient Ambulatory and/or Out of Bed No REE-(Portal-St. Jeor-confined to bed) [phone] Calculation Used for Recommendations Portal-St Jeor Additional Notes Protein: >1.2 g/Kg AdjBW; >94 g/day. Fluids: 1 ml/Kcal, or as per MD. Nutrition Intervention Nutrition Support: Continue TF-Nepro w/CARBSTEADY @ 40 ml/hr. Flush: 150 ml water Q 4 hr, or as per MD. Kcal 1,728 Protein (gm) 78 Carbohydrates (gm) 155 Fat (gm) 92 Fluid (mL) 698 Fiber (gm) 12 % RDI: 97% Kcal; 83% AA. Goal #1 Provide at least 75% of energy /protein needs through Enteral Feeding during LOS. Follow-Up By: 09/12/21 Additional Comments Continue monitoring TF tolerance, BONE TENDER evaluation, and BM.
[2021-09-09] MEDS: FLUCONAZOLE 100 MG/10 ML ORAL SYRINGE FEEDTUBE SCH (15:05)
[2021-09-09] MEDS: ONDANSETRON 4 MG/2 ML INJ IV PRN (19:33)
[2021-09-09] MEDS: ZOLPIDEM 5 MG TAB PO PRN (21:39)
[2021-09-10] MEDS: INSULIN GLARGINE 100 UNITS/ML SUB-Q SCH ×3 (01:51→22:47)
[2021-09-10] MEDS: hydrALAZINE 100 MG TAB PO SCH ×4 (01:52→20:04)
[2021-09-10] MEDS: cloNIDine 0.1 MG TAB PO SCH ×4 (01:52→20:03)
[2021-09-10] MEDS: INSULIN LISPRO 100 UNIT/ML SUB-Q SCH ×4 (05:53→17:24)
[2021-09-10] MEDS: HYDROmorphone 0.5 MG/0.5 ML INJ IV PRN (05:59)
[2021-09-10] MEDS: LEVOTHYROXINE 125 MCG TAB PO SCH (05:59)
[2021-09-10] MEDS: HEPARIN 5,000 UNIT/1 ML VIAL SUB-Q SCH ×3 (05:59→21:59)
[2021-09-10] MEDS: ASPIRIN 325 MG TAB FEEDTUBE SCH (09:05)
[2021-09-10] MEDS: SEVELAMER CARBONATE 800 MG TAB PO SCH ×3 (09:05→17:24)
[2021-09-10] MEDS: FAMOTIDINE 20 MG TAB FEEDTUBE SCH (09:06)
[2021-09-10] MEDS: amLODIPine 10 MG TAB PO SCH (09:06)
[2021-09-10] MEDS: LOSARTAN 50 MG TAB PO SCH (09:06)
[2021-09-10] MEDS: levETIRAcetam 500 MG TAB PO SCH (09:06)
[2021-09-10] MEDS: METOPROLOL TARTRATE 100 MG TAB PO SCH (09:07)
[2021-09-10] MEDS: CITALOPRAM 20 MG TAB PO SCH (09:07)
[2021-09-10] MEDS: MAGIC MOUTHWASH 30ML PO SCH ×3 (12:19→22:45)
--- NOTE | 2021-09-10 13:48 | Progress Note ---
Assessment and Plan ESRD - Next HD Sunday HTN - F/u on meds Lytes - F/u labs HD Access - S/p thrombectomy Rt arm AVF & stable F/u d/c plans Subjective Date of service: 09/10/21 Principal diagnosis: Possible Sepsis; DKA; AMS; h/o CVA left hemiparesis; ESRD on Dialysis; HTN Interval history: Improved po intake. Wants to go home Objective - Vital Signs Vital signs: Vital Signs - 12hr 09/10/21 09/10/21 09/10/21 02:05 04:20 05:52 Temperature 98 F 98 F Pulse Rate 65 65 65 Respiratory 17 17 Rate Blood Pressure Blood Pressure 116/64 117/62 [Right] O2 Sat by Pulse 98 100 Oximetry 09/10/21 09/10/21 09/10/21 07:47 09:06 09:07 Temperature 98.3 F Pulse Rate 64 64 64 Respiratory Rate Blood Pressure 112/63 112/63 112/63 Blood Pressure [Right] O2 Sat by Pulse 97 Oximetry 09/10/21 10:00 Temperature Pulse Rate Respiratory Rate Blood Pressure Blood Pressure [Right] O2 Sat by Pulse 97 Oximetry - General Appearance General appearance: other (Awake & alert) EENT: PERRL, hearing intact Neck: no JVD Respiratory: Present: Clear to Ascultation Cardiology: regular, S1S2 Gastrointestinal: normal Neurologic: alert and oriented x3 - Lab 09/08/21 05:31 09/08/21 05:31 Most recent lab results Calcium 10.8 mg/dL (8.4-10.2) H 09/08/21 05:31 Phosphorus 5.30 mg/dL (2.5-4.5) H 09/08/21 05:31 Magnesium 2.50 mg/dL (1.7-2.3) H 09/08/21 05:31 Medications & Allergies - Medications Allergies/Adverse Reactions: Allergies vancomycin Adverse Reaction (Verified 04/02/13 10:16) Hives Home Medications: Home Medications Medication Instructions Recorded Confirmed Last Taken Type Hydralazine HCl [hydrALAZINE] 100 mg PO BID 04/02/13 08/17/21 04/02/13 08:00 History Aspirin/Dipyridamole [Aggrenox] 1 cap PO BID #60 capsule 04/10/13 08/17/21 Unknown Rx Cinacalcet [Sensipar] 60 mg PO QDAY 08/17/21 08/17/21 Unknown History Citalopram [celeXA] 20 mg PO QDAY 08/17/21 08/17/21 Unknown History Gabapentin [Neurontin] 100 mg PO Q8HR 08/17/21 08/17/21 Unknown History Insulin Glargine,Hum.rec.anlog 55 unit SQ BID 08/17/21 08/17/21 Unknown History [Lantus Solostar] Promethazine [Phenergan] 25 mg PO Q6HR PRN 08/17/21 08/17/21 Unknown History Sevelamer Carbonate [Renvela] 800 mg PO TIDWM 08/17/21 08/17/21 Unknown History amLODIPine [Norvasc] 10 mg PO DAILY 08/17/21 08/17/21 Unknown History carvediloL [Coreg] 25 mg PO BID 08/17/21 08/17/21 Unknown History Albuterol Mdi (or & Nicu Only) 2 puff IH QID PRN 08/29/21 08/29/21 Unknown History [ProAir HFA Inhaler] AtorvaSTATin [Lipitor] 40 mg PO QHS 08/29/21 08/29/21 Unknown History Cetirizine HCl [Zyrtec 10mg tab] 10 mg PO QDAY 08/29/21 08/29/21 Unknown History Ferric Citrate (Nf) [Auryxia] 210 mg PO TID 08/29/21 08/29/21 Unknown History Fluticasone [Flonase] 2 spray NS QDAY PRN 08/29/21 08/29/21 Unknown History Furosemide [Lasix TAB] 40 mg PO QDAY 08/29/21 08/29/21 Unknown History Insulin Aspart (Nf) [NovoLOG 15 units SQ TIDAC 08/29/21 08/29/21 Unknown History Flexpen] Metoclopramide [Reglan] 10 mg PO HS 08/29/21 08/29/21 Unknown History Pantoprazole [Protonix] 40 mg PO QDAY 08/29/21 08/29/21 Unknown History Prochlorperazine Maleate 10 mg PO QDAY PRN 08/29/21 08/29/21 Unknown History [Compazine] Sucroferric Oxyhydroxide(Nf) 500 mg PO TIDWM 08/29/21 08/29/21 Unknown History [Velphoro (Nf)] cloNIDine [Catapres] 0.1 mg PO TID 08/29/21 08/29/21 Unknown History Active Medications: Generic Name Dose Route Start Last Admin Trade Name Freq PRN Reason Stop Dose Admin Acetaminophen 650 mg 08/17/21 07:50 08/30/21 20:25 Acetaminophen 325 Mg Tab PO 650 mg Q6H PRN Administration Pain, Mild (1-3) Acetaminophen 650 mg 08/17/21 08:17 08/17/21 14:49 Acetaminophen 650 Mg Rect Supp [place] 650 mg Q4H PRN Administration Pain, Mild (1-3) Albuterol 2.5 mg 08/29/21 20:00 Albuterol 2.5 Mg/3 Ml Nebu IH Q4HRT PRN Shortness Of Breath Amlodipine Besylate 10 mg 08/22/21 11:00 09/10/21 09:06 Amlodipine 10 Mg Tab PO 10 mg QDAY HAM Administration Lipase/Protease/Amylase 1 each 08/26/21 16:00 Lipase 10,500/Protease 25,000/Amylase 43,750 (Units) Dr Lopez FEEDTUBE PRN PRN For Clogged Feeding Tube Aspirin 325 mg 08/22/21 10:00 09/10/21 09:05 Aspirin 325 Mg Tab FEEDTUBE 325 mg QDAY HAM Administration Atorvastatin Calcium 40 mg 08/29/21 22:00 09/09/21 21:35 Atorvastatin 40 Mg Tab PO 40 mg QHS HAM Administration Citalopram Hydrobromide 40 mg 09/04/21 10:00 09/10/21 09:07 Citalopram 20 Mg Tab PO 40 mg QDAY HAM Administration Clonidine HCl 0.1 mg 08/29/21 20:00 09/10/21 09:06 Clonidine 0.1 Mg Tab PO 0.1 mg TID HAM Administration Dextrose 50 ml 08/17/21 23:37 Dextrose 50% In Water (25gm) 50 Ml Syringe IV Q30MIN PRN Hypoglycemia Protocol Diphenhydramine HCl 25 mg 09/07/21 09:30 09/09/21 09:34 Diphenhydramine 25 Mg Cap PO 25 mg Q8H PRN Administration Itching Famotidine 20 mg 08/20/21 10:00 09/10/21 09:06 Famotidine 20 Mg Tab FEEDTUBE 20 mg QDAY HAM Administration Fluconazole 100 mg 09/05/21 14:00 09/09/21 15:05 Fluconazole 100 Mg/10 Ml Oral Syringe FEEDTUBE 09/10/21 14:01 Not Given Q24H [facility] Protocol Haloperidol Lactate 5 mg 08/19/21 12:00 09/01/21 11:41 Haloperidol Lactate 5 Mg/1 Ml Inj IV 5 mg Q6H PRN Administration Agitation Heparin Sodium (Porcine) 5,000 unit 08/17/21 06:00 09/10/21 05:59 Heparin 5,000 Unit/1 Ml Vial SUB-Q 5,000 unit Q8HR HAM Administration Heparin Sodium (Porcine) 3,000 unit 08/17/21 07:41 08/31/21 10:38 Heparin 10,000 Units/10 Ml Vial IV 3,000 unit KATI PRN Administration hemodialysis Hydralazine HCl 100 mg 08/17/21 09:00 09/10/21 09:06 Hydralazine 100 Mg Tab PO 100 mg TID HAM Administration Hydralazine HCl 10 mg 08/17/21 07:56 08/25/21 05:19 Hydralazine 20 Mg/1 Ml Inj IV 10 mg Q4HR PRN Administration Hypertension Hydromorphone HCl 0.25 mg 08/17/21 07:50 09/10/21 05:59 Hydromorphone 0.5 Mg/0.5 Ml Inj IV 0.25 mg Q4H PRN Administration Pain, Moderate (4-6) Hydroxyzine Pamoate 25 mg 09/03/21 14:50 Hydroxyzine Pamoate 25 Mg Cap PO Q6H PRN Anxiety Sodium Chloride 100 mls @ 999 mls/hr 09/08/21 11:17 Nacl 0.9% IV KATI PRN Hypotension Insulin Glargine 15 units 09/09/21 10:00 09/10/21 09:04 Insulin Glargine 100 Units/Ml SUB-Q 15 units BID HAM Administration Insulin Human Lispro 0 unit 08/18/21 00:00 09/10/21 12:22 Insulin Lispro 100 Unit/Ml SUB-Q Not Given Q6HR [facility] Protocol Levetiracetam 500 mg 08/20/21 10:00 09/10/21 09:06 Levetiracetam 500 Mg Tab PO 500 mg DAILY HAM Administration Levothyroxine Sodium 125 mcg 08/22/21 06:00 09/10/21 05:59 Levothyroxine 125 Mcg Tab PO 125 mcg QAM@0600 [facility] Administration Lidocaine HCl 15 ml 09/05/21 14:00 09/10/21 12:19 Magic Mouthwash 30ml PO 15 ml TID HAM Administration Losartan Potassium 50 mg 08/17/21 10:00 09/10/21 09:06 Losartan 50 Mg Tab PO 50 mg QDAY [facility] Administration Magnesium Hydroxide 30 ml 08/17/21 04:09 08/23/21 23:56 Magnesium Hydroxide (Mom) Oral Liqd Udc PO 30 ml Q4H PRN Administration Constipation Metoprolol Tartrate 100 mg 08/20/21 11:00 09/10/21 09:07 Metoprolol Tartrate 100 Mg Tab PO 100 mg BID HAM Administration Ondansetron HCl 4 mg 08/17/21 04:09 09/09/21 19:33 Ondansetron 4 Mg/2 Ml Inj IV 4 mg Q8H PRN Administration Nausea And Vomiting Phenol 1 spray 09/04/21 09:54 09/06/21 10:13 Phenol 1.4% 177 Ml Bottle MM 1 spray PRN PRN Administration Sore Throat Promethazine HCl 25 mg 09/07/21 20:33 09/07/21 21:08 Promethazine 25 Mg Rect Supp [place] 25 mg Q6H PRN Administration Nausea And Vomiting Sevelamer Carbonate 2,400 mg 09/06/21 11:30 09/10/21 12:14 Sevelamer Carbonate 800 Mg Tab PO 2,400 mg AC HAM Administration Simple Syrup 15 ml 08/26/21 16:00 09/04/21 00:20 Simple Syrup 15 Ml FEEDTUBE 15 ml PRN PRN Administration Hypoglycemia Simple Syrup 30 ml 08/26/21 16:00 Simple Syrup 15 Ml FEEDTUBE PRN PRN Hypoglycemia Sodium Bicarbonate 325 mg 08/26/21 16:00 Sodium Bicarbonate 325 Mg Tab FEEDTUBE PRN PRN For Clogged Feeding Tube Sodium Chloride 10 ml 08/17/21 10:00 09/10/21 12:25 Sodium Chloride 0.9% 10 Ml Flush Syringe IV 10 ml BID HAM Administration Sodium Chloride 10 ml 08/17/21 04:09 08/19/21 02:59 Sodium Chloride 0.9% 10 Ml Flush Syringe IV 10 ml PRN PRN Administration LINE FLUSH Zolpidem Tartrate 5 mg 09/05/21 22:00 09/09/21 21:39 Zolpidem 5 Mg Tab PO 5 mg QHS PRN Administration Sleep
--- NOTE | 2021-09-10 14:05 | Progress Note ---
Assessment and Plan Possible Sepsis (high grade fevers, tachycardia, acute encephalopathy, tachypnea) DKA Acute Metabolic Encephalopathy h/o CVA with left-sided deficits End Stage renal Disease on HD HTN Hypothyroidism - cleared for a regular diet by [employer] team - continue aspiration precautions; HOB > 40 degrees - tentative home discharge with home PT/OT/rehab - continue care as below otherwise; - continue keppra as AED - prn Haldol for delirium / agitation - prn supplemental oxygen for target O2 sats > 90% - prn bronchodilators (DG) with pulm hygiene per RT - HD/UF per nephrology prescription for toxin and volume clearance - continue to avoid nephrotoxins, renally dose all medications - continue mobility protocols to prevent pressure ulcers - PT/OT as tolerated - Wound care per RN/WCT - continue accuchecks with glycemic control per SSI for target blood glucose < 180 mg/dL - tobacco abstinence counseled at the bedside - home oxygen evaluation at discharge - GI & VTE prophylaxis - Flu & pneumovax per protocol - Pulmonary out patient follow up for PFTs and optimization of respiratory st atus - continue other care per attending / other consultants - prn analgesia per pain score COVID SPECIFIC INTERVENTIONS - COVID-19 PCR negative ... re-evaluate in am & prn Subjective Date of service: 09/10/21 Principal diagnosis: Possible Sepsis; DKA; AMS; h/o CVA left hemiparesis; ESRD on Dialysis; HTN Interval history: Patient is seen today for: Possible Sepsis; DKA; Acute Metabolic Encephalopathy; h/o CVA with left-sided deficits; End Stage renal Disease on HD; HTN Seen and examined at bedside; 24hour events reviewed; nursing and respiratory care staff consulted; no adverse overnight events reported to me; resting peacefully in bed; overall cognitive function significantly improved; remains dialysis dependent; she denied chest pains or SOB;l denies N/V/F/C Objective Vital Signs - 12hr 09/10/21 09/10/21 09/10/21 04:20 05:52 07:47 Temperature 98 F 98.3 F Pulse Rate 65 65 64 Respiratory 17 Rate Blood Pressure 112/63 Blood Pressure 117/62 [Right] O2 Sat by Pulse 100 97 Oximetry 09/10/21 09/10/21 09/10/21 09:06 09:07 10:00 Temperature Pulse Rate 64 64 Respiratory Rate Blood Pressure 112/63 112/63 Blood Pressure [Right] O2 Sat by Pulse 97 Oximetry Constitutional: no acute distress, alert, other (middle aged obese female with normal respiratory effort at rest) Eyes: non-icteric ENT: oropharynx moist Neck: supple, no lymphadenopathy, no JVD, other (large circumference) Effort: normal Ascultation: Bilateral: clear, diminished breath sounds Percussion: Bilateral: not dull Cardiovascular: regular rate and rhythm, other (S1,S2) Gastrointestinal: normoactive bowel sounds, soft, non-tender, non-distended (protuberant), other (obese) Integumentary: normal Extremities: no cyanosis, no edema, pulses normal, no ischemia or petechiae Neurologic: normal mental status, non-focal exam (grossly), pupils equal and round, CN II-XII normal Psychiatric: mood appropriate, affect normal CBC and BMP: 09/08/21 05:31 09/08/21 05:31 ABG, PT/INR, D-dimer: PT/INR, D-dimer PT 14.0 Sec. (12.2-14.9) 08/23/21 22:59 INR 0.97 (0.87-1.13) 08/23/21 22:59 D-Dimer 2695.37 ng/mlDDU (0-234) H 08/17/21 14:40 Abnormal lab findings: Abnormal Labs 08/17/21 08/17/21 08/17/21 00:33 00:33 02:07 WBC Hgb MCH RDW 19.7 H Lymph % (Auto) 10.5 L [place] % (Auto) Lymph # (Auto) 1.1 L [place] # (Auto) Baso # (Auto) Seg Neutrophils % 79.1 H Seg Neutrophils # 8.6 H D-Dimer Sodium 132 L 134 L Chloride 87.8 L 88.4 L Carbon Dioxide 21 L BUN 61 H 61 H Creatinine 10.1 H 10.3 H Glucose 594 H* 533 H* POC Glucose Hemoglobin A1c Calcium Phosphorus Magnesium ALT < 5 L Alkaline Phosphatase 182 H NT-Pro-B Natriuret Pep 65571 H Total Protein Albumin HDL Cholesterol TSH Salicylates Acetaminophen 08/17/21 08/17/21 08/17/21 02:07 02:07 02:07 WBC Hgb MCH RDW Lymph % (Auto) [place] % (Auto) Lymph # (Auto) [place] # (Auto) Baso # (Auto) Seg Neutrophils % Seg Neutrophils # D-Dimer Sodium Chloride Carbon Dioxide BUN Creatinine Glucose POC Glucose Hemoglobin A1c Calcium Phosphorus Magnesium ALT Alkaline Phosphatase NT-Pro-B Natriuret Pep Total Protein Albumin HDL Cholesterol TSH 5.080 H Salicylates < 0.3 L Acetaminophen 5.0 L 08/17/21 08/17/21 08/17/21 04:20 04:20 05:09 WBC Hgb MCH RDW Lymph % (Auto) [place] % (Auto) Lymph # (Auto) [place] # (Auto) Baso # (Auto) Seg Neutrophils % Seg Neutrophils # D-Dimer Sodium 136 L Chloride 90.9 L Carbon Dioxide BUN 61 H Creatinine 10.4 H Glucose 351 H POC Glucose 298 H Hemoglobin A1c Calcium Phosphorus 6.20 H Magnesium ALT Alkaline Phosphatase NT-Pro-B Natriuret Pep Total Protein Albumin HDL Cholesterol TSH Salicylates Acetaminophen 08/17/21 08/17/21 08/17/21 09:58 10:53 13:14 WBC Hgb MCH RDW Lymph % (Auto) [place] % (Auto) Lymph # (Auto) [place] # (Auto) Baso # (Auto) Seg Neutrophils % Seg Neutrophils # D-Dimer Sodium Chloride Carbon Dioxide BUN Creatinine Glucose POC Glucose 139 H 162 H 145 H Hemoglobin A1c Calcium Phosphorus Magnesium ALT Alkaline Phosphatase NT-Pro-B Natriuret Pep Total Protein Albumin HDL Cholesterol TSH Salicylates Acetaminophen 08/17/21 08/17/21 08/17/21 14:40 14:40 14:40 WBC Hgb MCH RDW Lymph % (Auto) [place] % (Auto) Lymph # (Auto) [place] # (Auto) Baso # (Auto) Seg Neutrophils % Seg Neutrophils # D-Dimer 2695.37 H Sodium Chloride 96.7 L Carbon Dioxide BUN 63 H Creatinine 10.7 H Glucose 145 H POC Glucose Hemoglobin A1c Calcium Phosphorus Magnesium ALT Alkaline Phosphatase NT-Pro-B Natriuret Pep Total Protein Albumin HDL Cholesterol 30 L TSH Salicylates Acetaminophen 08/17/21 08/17/21 08/17/21 14:40 16:45 17:47 WBC Hgb MCH RDW Lymph % (Auto) [place] % (Auto) Lymph # (Auto) [place] # (Auto) Baso # (Auto) Seg Neutrophils % Seg Neutrophils # D-Dimer Sodium Chloride 96.2 L Carbon Dioxide BUN 44 H Creatinine 7.2 H Glucose 167 H POC Glucose 136 H 165 H Hemoglobin A1c Calcium Phosphorus Magnesium ALT Alkaline Phosphatase NT-Pro-B Natriuret Pep Total Protein Albumin HDL Cholesterol TSH Salicylates Acetaminophen 08/17/21 08/17/21 08/17/21 18:01 21:01 22:40 WBC Hgb MCH RDW Lymph % (Auto) [place] % (Auto) Lymph # (Auto) [place] # (Auto) Baso # (Auto) Seg Neutrophils % Seg Neutrophils # D-Dimer Sodium Chloride 97.1 L 96.4 L Carbon Dioxide BUN 39 H 40 H Creatinine 8.0 H 8.5 H Glucose 122 H 109 H POC Glucose 172 H Hemoglobin A1c Calcium Phosphorus Magnesium ALT Alkaline Phosphatase NT-Pro-B Natriuret Pep Total Protein Albumin HDL Cholesterol TSH Salicylates Acetaminophen 08/17/21 08/18/21 08/18/21 22:40 02:13 04:56 WBC Hgb MCH 27 L RDW 19.7 H Lymph % (Auto) [place] % (Auto) Lymph # (Auto) [place] # (Auto) Baso # (Auto) Seg Neutrophils % Seg Neutrophils # D-Dimer Sodium Chloride 96.8 L Carbon Dioxide BUN 44 H Creatinine 9.3 H Glucose 170 H POC Glucose 190 H Hemoglobin A1c Calcium Phosphorus 6.70 H Magnesium ALT Alkaline Phosphatase NT-Pro-B Natriuret Pep Total Protein Albumin HDL Cholesterol TSH Salicylates Acetaminophen 08/18/21 08/18/21 08/18/21 04:56 04:56 17:01 WBC Hgb MCH 27 L RDW 19.7 H Lymph % (Auto) [place] % (Auto) 9.7 H Lymph # (Auto) [place] # (Auto) Baso # (Auto) Seg Neutrophils % Seg Neutrophils # D-Dimer Sodium Chloride Carbon Dioxide BUN Creatinine Glucose POC Glucose 228 H Hemoglobin A1c 10.2 H Calcium Phosphorus Magnesium ALT Alkaline Phosphatase NT-Pro-B Natriuret Pep Total Protein Albumin HDL Cholesterol TSH Salicylates Acetaminophen 08/18/21 08/19/21 08/19/21 23:58 04:37 04:37 WBC Hgb MCH 27 L RDW 19.5 H Lymph % (Auto) [place] % (Auto) Lymph # (Auto) [place] # (Auto) Baso # (Auto) Seg Neutrophils % Seg Neutrophils # D-Dimer Sodium Chloride 96.7 L Carbon Dioxide 21 L BUN 57 H Creatinine 10.2 H Glucose 151 H POC Glucose 192 H Hemoglobin A1c Calcium Phosphorus Magnesium ALT Alkaline Phosphatase NT-Pro-B Natriuret Pep Total Protein Albumin HDL Cholesterol TSH Salicylates Acetaminophen 08/19/21 08/19/21 08/20/21 17:46 22:59 04:24 WBC Hgb MCH RDW Lymph % (Auto) [place] % (Auto) Lymph # (Auto) [place] # (Auto) Baso # (Auto) Seg Neutrophils % Seg Neutrophils # D-Dimer Sodium 133 L Chloride 87.9 L Carbon Dioxide 15 L BUN 33 H Creatinine 7.3 H Glucose 365 H POC Glucose 217 H 282 H Hemoglobin A1c Calcium Phosphorus 6.50 H Magnesium ALT Alkaline Phosphatase NT-Pro-B Natriuret Pep Total Protein Albumin HDL Cholesterol TSH Salicylates Acetaminophen 08/20/21 08/20/21 08/20/21 06:07 07:51 15:37 WBC Hgb MCH RDW Lymph % (Auto) [place] % (Auto) Lymph # (Auto) [place] # (Auto) Baso # (Auto) Seg Neutrophils % Seg Neutrophils # D-Dimer Sodium Chloride Carbon Dioxide BUN Creatinine Glucose POC Glucose 398 H 308 H 247 H Hemoglobin A1c Calcium Phosphorus Magnesium ALT Alkaline Phosphatase NT-Pro-B Natriuret Pep Total Protein Albumin HDL Cholesterol TSH Salicylates Acetaminophen 08/20/21 08/21/21 08/21/21 23:22 04:45 05:07 WBC Hgb MCH RDW Lymph % (Auto) [place] % (Auto) Lymph # (Auto) [place] # (Auto) Baso # (Auto) Seg Neutrophils % Seg Neutrophils # D-Dimer Sodium 134 L Chloride 92.9 L Carbon Dioxide BUN 48 H Creatinine 8.0 H Glucose 389 H POC Glucose 316 H 407 H Hemoglobin A1c Calcium 10.6 H Phosphorus Magnesium ALT Alkaline Phosphatase NT-Pro-B Natriuret Pep Total Protein Albumin HDL Cholesterol TSH Salicylates Acetaminophen 08/21/21 08/21/21 08/21/21 11:37 15:52 23:44 WBC Hgb MCH RDW Lymph % (Auto) [place] % (Auto) Lymph # (Auto) [place] # (Auto) Baso # (Auto) Seg Neutrophils % Seg Neutrophils # D-Dimer Sodium Chloride Carbon Dioxide BUN Creatinine Glucose POC Glucose 244 H 325 H 221 H Hemoglobin A1c Calcium Phosphorus Magnesium ALT Alkaline Phosphatase NT-Pro-B Natriuret Pep Total Protein Albumin HDL Cholesterol TSH Salicylates Acetaminophen 08/22/21 08/22/21 08/23/21 06:06 12:27 00:37 WBC Hgb MCH RDW Lymph % (Auto) [place] % (Auto) Lymph # (Auto) [place] # (Auto) Baso # (Auto) Seg Neutrophils % Seg Neutrophils # D-Dimer Sodium Chloride Carbon Dioxide BUN Creatinine Glucose POC Glucose 224 H 247 H 341 H Hemoglobin A1c Calcium Phosphorus Magnesium ALT Alkaline Phosphatase NT-Pro-B Natriuret Pep Total Protein Albumin HDL Cholesterol TSH Salicylates Acetaminophen 08/23/21 08/23/21 08/23/21 04:20 05:37 11:56 WBC Hgb MCH RDW Lymph % (Auto) [place] % (Auto) Lymph # (Auto) [place] # (Auto) Baso # (Auto) Seg Neutrophils % Seg Neutrophils # D-Dimer Sodium Chloride 94.4 L Carbon Dioxide BUN 49 H Creatinine 7.7 H Glucose 201 H POC Glucose 210 H 162 H Hemoglobin A1c Calcium 10.9 H Phosphorus Magnesium ALT Alkaline Phosphatase NT-Pro-B Natriuret Pep Total Protein Albumin HDL Cholesterol TSH Salicylates Acetaminophen 08/23/21 08/23/21 08/23/21 17:45 22:58 22:59 WBC 12.2 H Hgb MCH 26 L RDW 20.3 H Lymph % (Auto) [place] % (Auto) Lymph # (Auto) [place] # (Auto) Baso # (Auto) Seg Neutrophils % Seg Neutrophils # D-Dimer Sodium Chloride Carbon Dioxide BUN Creatinine Glucose POC Glucose 211 H 218 H Hemoglobin A1c Calcium Phosphorus Magnesium ALT Alkaline Phosphatase NT-Pro-B Natriuret Pep Total Protein Albumin HDL Cholesterol TSH Salicylates Acetaminophen 08/23/21 08/24/21 08/24/21 22:59 04:23 04:23 WBC 15.4 H Hgb MCH 27 L RDW 19.8 H Lymph % (Auto) [place] % (Auto) 13.0 H Lymph # (Auto) [place] # (Auto) 2.0 H Baso # (Auto) 0.2 H Seg Neutrophils % Seg Neutrophils # 9.8 H D-Dimer Sodium 136 L Chloride 93.0 L Carbon Dioxide BUN 73 H Creatinine 8.7 H 9.2 H Glucose 145 H POC Glucose Hemoglobin A1c Calcium 10.7 H Phosphorus 6.30 H Magnesium 2.70 H ALT 6 L Alkaline Phosphatase 157 H NT-Pro-B Natriuret Pep Total Protein Albumin 3.7 L HDL Cholesterol TSH Salicylates Acetaminophen 08/24/21 08/24/21 08/24/21 05:09 11:20 18:28 WBC Hgb MCH RDW Lymph % (Auto) [place] % (Auto) Lymph # (Auto) [place] # (Auto) Baso # (Auto) Seg Neutrophils % Seg Neutrophils # D-Dimer Sodium Chloride Carbon Dioxide BUN Creatinine Glucose POC Glucose 155 H 110 H 182 H Hemoglobin A1c Calcium Phosphorus Magnesium ALT Alkaline Phosphatase NT-Pro-B Natriuret Pep Total Protein Albumin HDL Cholesterol TSH Salicylates Acetaminophen 08/25/21 08/25/21 08/25/21 00:15 04:44 11:28 WBC 11.3 H Hgb MCH 27 L RDW 20.4 H Lymph % (Auto) [place] % (Auto) Lymph # (Auto) [place] # (Auto) Baso # (Auto) Seg Neutrophils % Seg Neutrophils # D-Dimer Sodium Chloride Carbon Dioxide BUN Creatinine Glucose POC Glucose 247 H 189 H Hemoglobin A1c Calcium Phosphorus Magnesium ALT Alkaline Phosphatase NT-Pro-B Natriuret Pep Total Protein Albumin HDL Cholesterol TSH Salicylates Acetaminophen 08/25/21 08/25/21 08/26/21 16:42 23:29 05:22 WBC Hgb MCH RDW Lymph % (Auto) [place] % (Auto) Lymph # (Auto) [place] # (Auto) Baso # (Auto) Seg Neutrophils % Seg Neutrophils # D-Dimer Sodium Chloride Carbon Dioxide BUN Creatinine 10.0 H Glucose POC Glucose 169 H 213 H Hemoglobin A1c Calcium Phosphorus Magnesium ALT Alkaline Phosphatase NT-Pro-B Natriuret Pep Total Protein Albumin HDL Cholesterol TSH Salicylates Acetaminophen 08/26/21 08/26/21 08/26/21 06:12 11:47 23:33 WBC Hgb MCH RDW Lymph % (Auto) [place] % (Auto) Lymph # (Auto) [place] # (Auto) Baso # (Auto) Seg Neutrophils % Seg Neutrophils # D-Dimer Sodium Chloride Carbon Dioxide BUN Creatinine Glucose POC Glucose 191 H 197 H 197 H Hemoglobin A1c Calcium Phosphorus Magnesium ALT Alkaline Phosphatase NT-Pro-B Natriuret Pep Total Protein Albumin HDL Cholesterol TSH Salicylates Acetaminophen 08/27/21 08/27/21 08/27/21 06:02 06:02 06:17 WBC Hgb MCH 27 L RDW 20.1 H Lymph % (Auto) [place] % (Auto) 14.2 H Lymph # (Auto) [place] # (Auto) 1.4 H Baso # (Auto) Seg Neutrophils % Seg Neutrophils # D-Dimer Sodium 134 L Chloride 93.8 L Carbon Dioxide BUN 56 H Creatinine 6.4 H Glucose 253 H POC Glucose 250 H Hemoglobin A1c Calcium Phosphorus 6.00 H Magnesium 2.50 H ALT < 5 L Alkaline Phosphatase 135 H NT-Pro-B Natriuret Pep Total Protein Albumin 3.6 L HDL Cholesterol TSH Salicylates Acetaminophen 08/27/21 08/27/21 08/27/21 11:21 16:05 23:13 WBC Hgb MCH RDW Lymph % (Auto) [place] % (Auto) Lymph # (Auto) [place] # (Auto) Baso # (Auto) Seg Neutrophils % Seg Neutrophils # D-Dimer Sodium Chloride Carbon Dioxide BUN Creatinine Glucose POC Glucose 287 H 321 H 286 H Hemoglobin A1c Calcium Phosphorus Magnesium ALT Alkaline Phosphatase NT-Pro-B Natriuret Pep Total Protein Albumin HDL Cholesterol TSH Salicylates Acetaminophen 08/28/21 08/28/21 08/28/21 05:11 05:29 11:30 WBC Hgb MCH RDW Lymph % (Auto) [place] % (Auto) Lymph # (Auto) [place] # (Auto) Baso # (Auto) Seg Neutrophils % Seg Neutrophils # D-Dimer Sodium 134 L Chloride 91.8 L Carbon Dioxide BUN 79 H Creatinine 8.2 H Glucose 230 H POC Glucose 225 H 190 H Hemoglobin A1c Calcium 10.8 H Phosphorus Magnesium ALT Alkaline Phosphatase NT-Pro-B Natriuret Pep Total Protein Albumin HDL Cholesterol TSH Salicylates Acetaminophen 08/28/21 08/29/21 08/29/21 15:53 00:04 04:29 WBC Hgb MCH 27 L RDW 20.6 H Lymph % (Auto) [place] % (Auto) Lymph # (Auto) [place] # (Auto) Baso # (Auto) Seg Neutrophils % Seg Neutrophils # D-Dimer Sodium Chloride Carbon Dioxide BUN Creatinine Glucose POC Glucose 235 H 223 H Hemoglobin A1c Calcium Phosphorus Magnesium ALT Alkaline Phosphatase NT-Pro-B Natriuret Pep Total Protein Albumin HDL Cholesterol TSH Salicylates Acetaminophen 08/29/21 08/29/21 08/29/21 04:29 05:37 16:14 WBC Hgb MCH RDW Lymph % (Auto) [place] % (Auto) Lymph # (Auto) [place] # (Auto) Baso # (Auto) Seg Neutrophils % Seg Neutrophils # D-Dimer Sodium Chloride Carbon Dioxide BUN Creatinine 9.8 H Glucose POC Glucose 174 H 200 H Hemoglobin A1c Calcium Phosphorus Magnesium ALT Alkaline Phosphatase NT-Pro-B Natriuret Pep Total Protein Albumin HDL Cholesterol TSH Salicylates Acetaminophen 08/30/21 08/30/21 08/30/21 00:10 05:12 05:12 WBC Hgb MCH 27 L RDW 20.2 H Lymph % (Auto) [place] % (Auto) 12.7 H Lymph # (Auto) [place] # (Auto) 1.4 H Baso # (Auto) 0.2 H Seg Neutrophils % Seg Neutrophils # D-Dimer Sodium Chloride 97.5 L Carbon Dioxide BUN 58 H Creatinine 6.9 H Glucose 112 H POC Glucose 111 H Hemoglobin A1c Calcium 10.8 H Phosphorus 6.00 H Magnesium 2.80 H ALT Alkaline Phosphatase 147 H NT-Pro-B Natriuret Pep Total Protein Albumin HDL Cholesterol TSH Salicylates Acetaminophen 08/30/21 08/31/21 08/31/21 16:40 00:27 04:30 WBC Hgb MCH RDW Lymph % (Auto) [place] % (Auto) Lymph # (Auto) [place] # (Auto) Baso # (Auto) Seg Neutrophils % Seg Neutrophils # D-Dimer Sodium Chloride Carbon Dioxide BUN Creatinine Glucose POC Glucose 224 H 200 H 125 H Hemoglobin A1c Calcium Phosphorus Magnesium ALT Alkaline Phosphatase NT-Pro-B Natriuret Pep Total Protein Albumin HDL Cholesterol TSH Salicylates Acetaminophen 09/02/21 09/02/21 09/03/21 06:04 18:25 00:55 WBC Hgb MCH RDW Lymph % (Auto) [place] % (Auto) Lymph # (Auto) [place] # (Auto) Baso # (Auto) Seg Neutrophils % Seg Neutrophils # D-Dimer Sodium Chloride Carbon Dioxide BUN Creatinine Glucose POC Glucose 68 L 134 H 110 H Hemoglobin A1c Calcium Phosphorus Magnesium ALT Alkaline Phosphatase NT-Pro-B Natriuret Pep Total Protein Albumin HDL Cholesterol TSH Salicylates Acetaminophen 09/03/21 09/03/21 09/04/21 05:53 16:10 00:11 WBC Hgb MCH RDW Lymph % (Auto) [place] % (Auto) Lymph # (Auto) [place] # (Auto) Baso # (Auto) Seg Neutrophils % Seg Neutrophils # D-Dimer Sodium Chloride Carbon Dioxide BUN Creatinine Glucose POC Glucose 64 L 60 L 69 L Hemoglobin A1c Calcium Phosphorus Magnesium ALT Alkaline Phosphatase NT-Pro-B Natriuret Pep Total Protein Albumin HDL Cholesterol TSH Salicylates Acetaminophen 09/04/21 09/04/21 09/04/21 06:01 07:29 10:04 WBC Hgb MCH RDW Lymph % (Auto) [place] % (Auto) Lymph # (Auto) [place] # (Auto) Baso # (Auto) Seg Neutrophils % Seg Neutrophils # D-Dimer Sodium Chloride 96.1 L Carbon Dioxide BUN 48 H Creatinine 7.8 H Glucose 102 H POC Glucose 116 H 119 H Hemoglobin A1c Calcium 10.4 H Phosphorus Magnesium ALT Alkaline Phosphatase NT-Pro-B Natriuret Pep Total Protein Albumin HDL Cholesterol TSH Salicylates Acetaminophen 09/04/21 09/04/21 09/05/21 10:59 16:24 00:36 WBC Hgb MCH RDW Lymph % (Auto) [place] % (Auto) Lymph # (Auto) [place] # (Auto) Baso # (Auto) Seg Neutrophils % Seg Neutrophils # D-Dimer Sodium Chloride Carbon Dioxide BUN Creatinine Glucose POC Glucose 137 H 149 H 139 H Hemoglobin A1c Calcium Phosphorus Magnesium ALT Alkaline Phosphatase NT-Pro-B Natriuret Pep Total Protein Albumin HDL Cholesterol TSH Salicylates Acetaminophen 09/05/21 09/05/21 09/05/21 04:57 06:43 16:22 WBC 11.6 H Hgb 9.9 L MCH 27 L RDW 20.4 H Lymph % (Auto) [place] % (Auto) Lymph # (Auto) [place] # (Auto) Baso # (Auto) Seg Neutrophils % Seg Neutrophils # D-Dimer Sodium Chloride Carbon Dioxide BUN Creatinine Glucose POC Glucose 149 H 188 H Hemoglobin A1c Calcium Phosphorus Magnesium ALT Alkaline Phosphatase NT-Pro-B Natriuret Pep Total Protein Albumin HDL Cholesterol TSH Salicylates Acetaminophen 09/05/21 09/06/21 09/06/21 23:42 05:39 05:39 WBC Hgb MCH 27 L RDW 20.2 H Lymph % (Auto) [place] % (Auto) 9.2 H Lymph # (Auto) [place] # (Auto) 1.0 H Baso # (Auto) Seg Neutrophils % Seg Neutrophils # D-Dimer Sodium Chloride 94.2 L Carbon Dioxide BUN 35 H Creatinine 6.3 H Glucose 167 H POC Glucose 223 H Hemoglobin A1c Calcium 10.8 H Phosphorus 5.30 H Magnesium 2.50 H ALT Alkaline Phosphatase 154 H NT-Pro-B Natriuret Pep Total Protein 8.4 H Albumin 3.8 L HDL Cholesterol TSH Salicylates Acetaminophen 09/06/21 09/06/21 09/06/21 07:02 11:50 16:46 WBC Hgb MCH RDW Lymph % (Auto) [place] % (Auto) Lymph # (Auto) [place] # (Auto) Baso # (Auto) Seg Neutrophils % Seg Neutrophils # D-Dimer Sodium Chloride Carbon Dioxide BUN Creatinine Glucose POC Glucose 169 H 158 H 110 H Hemoglobin A1c Calcium Phosphorus Magnesium ALT Alkaline Phosphatase NT-Pro-B Natriuret Pep Total Protein Albumin HDL Cholesterol TSH Salicylates Acetaminophen 09/07/21 09/07/21 09/07/21 00:29 12:57 16:57 WBC Hgb MCH RDW Lymph % (Auto) [place] % (Auto) Lymph # (Auto) [place] # (Auto) Baso # (Auto) Seg Neutrophils % Seg Neutrophils # D-Dimer Sodium Chloride Carbon Dioxide BUN Creatinine Glucose POC Glucose 148 H 146 H 157 H Hemoglobin A1c Calcium Phosphorus Magnesium ALT Alkaline Phosphatase NT-Pro-B Natriuret Pep Total Protein Albumin HDL Cholesterol TSH Salicylates Acetaminophen 09/08/21 09/08/21 09/08/21 05:31 05:31 10:11 WBC Hgb MCH RDW 20.3 H Lymph % (Auto) [place] % (Auto) 9.3 H Lymph # (Auto) [place] # (Auto) Baso # (Auto) Seg Neutrophils % Seg Neutrophils # D-Dimer Sodium Chloride 95.9 L Carbon Dioxide BUN 36 H Creatinine 6.5 H Glucose POC Glucose 106 H Hemoglobin A1c Calcium 10.8 H Phosphorus 5.30 H Magnesium 2.50 H ALT 6 L Alkaline Phosphatase NT-Pro-B Natriuret Pep Total Protein Albumin 3.6 L HDL Cholesterol TSH Salicylates Acetaminophen 09/08/21 09/08/21 09/08/21 11:24 17:15 23:25 WBC Hgb MCH RDW Lymph % (Auto) [place] % (Auto) Lymph # (Auto) [place] # (Auto) Baso # (Auto) Seg Neutrophils % Seg Neutrophils # D-Dimer Sodium Chloride Carbon Dioxide BUN Creatinine Glucose POC Glucose 106 H 107 H 124 H Hemoglobin A1c Calcium Phosphorus Magnesium ALT Alkaline Phosphatase NT-Pro-B Natriuret Pep Total Protein Albumin HDL Cholesterol TSH Salicylates Acetaminophen 09/09/21 09/09/21 09/10/21 05:15 23:32 05:46 WBC Hgb MCH RDW Lymph % (Auto) [place] % (Auto) Lymph # (Auto) [place] # (Auto) Baso # (Auto) Seg Neutrophils % Seg Neutrophils # D-Dimer Sodium Chloride Carbon Dioxide BUN Creatinine Glucose POC Glucose 66 L 148 H 106 H Hemoglobin A1c Calcium Phosphorus Magnesium ALT Alkaline Phosphatase NT-Pro-B Natriuret Pep Total Protein Albumin HDL Cholesterol TSH Salicylates Acetaminophen Allied health notes reviewed: nursing
[2021-09-10] MEDS: ONDANSETRON 4 MG/2 ML INJ IV PRN ×2 (14:29→22:01)
[2021-09-10] MEDS: FLUCONAZOLE 100 MG/10 ML ORAL SYRINGE FEEDTUBE SCH (14:42)
--- NOTE | 2021-09-10 16:51 | Progress Note ---
Assessment and Plan Assessment and plan: #Right upper extremity AV graft thrombosis #End Stage Renal Disease requiring hemodialysis -s/p AVF declotting 08/26 via IR/Vascular surgery -s/p vascular surgery/ thrombectomy of right arm AV loop graft. -temporary vasc cath removed 08/26 -continue HD per Nephro -avoid nephrotoxic medications; Renally dose medications #DKA (Diabetic Ketoacidosis)-resolved #Type II diabetes, insulin dependent -s/p insulin gtt -Patient with hypoglycemia secondary to reduced oral intake; continue tube feeds -Hgb A1C 10.2% -continue lantus 22U BID, continue SSI -goal glucose 140-180 while inpatient; currently controlled #Sepsisruled out -patient afebrile, WBC normalizing -Blood cultures with NGTD x 5days -s/p IV abx, none needed due to no infectious process found -ID consulted, signed off #Acute Metabolic Encephalopathy-resolved #H/o CVA (cerebral infarction) with left-sided deficits -Multifactorial, DKA vs azotemia vs infectious process -Awake and tracking and following commands this morning -CT head and MRI brain noted with no acute abnormality -Neurology consulted, appreciated recommendations -c/f seizure, continue Keppra -PRN Haldol for agitation -Fall and safety precaution -Aspiration precaution -Frequent reorientation -Avoid benzodiazepine to reduce the possibility of delirium -Maintenance of sleep-wake cycle -PT/OT/Speech ordered -Psychiatry consulted: Patient Celexa increased #Hypertension -continue home BP medications -PRN Hydralazine and Labetalol for SBP greater than 160 #Elevated D-Dimer #H/o DVT -BLE doppler showed no evidence for acute DVT in either lower extremity. 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 -Per patient's mother, patient has been off coumadin for a couple of years -Continue Heparin SubQ -low suspicion for PE, will order V/Q scan if return of fever, dyspnea -Patient might benefit from PO AC at discharge, wild defer to PCP #Hypothyroidism -continue synthroid #Dysphagia-resolved -Patient failed initial speech eval due to mental status -Discontinue NG tube and tube feeds as patient successfully passed swallow evaluation was necessary. Gastroenterology consulted for PEG tube placement; appreciate recs. GI also agrees with declining PEG tube placement. #GI/ DVT Prophylaxis -PPI- Pepcid -heparin SubQ -SCDs to bilateral lower extremities while in bed #Discharge planning - Patient is pending authorization at a rehab facility. - Case management has been made aware. Updates: Had a detailed discussion with the patient today (09/10/2021) where she endorsed being fine with going home with physical therapy resources to visit her during the week. The patient's mother (Angely Roman) was called, and the possibility of the patient discharging home was brought up with her. The patient's mother endorsed her desire to call [employer] on 09/12/2021 to also assist with her daughter getting approved for SNF. Disposition Plan: Pending SNF placement Total Time Spent with Patient (Minutes): 30 minutes History Interval history: No acute events over night. The patient denies fevers, chills, nausea, vomiting, abdominal pain, chest pain/pressure, shortness of breath, urinary symptoms, weakness, or confusion. Hospitalist Physical - Constitutional Vitals: Temp Pulse Resp BP Pulse Ox 98.3 F 68 17 129/63 97 09/10/21 07:47 09/10/21 14:28 09/10/21 05:52 09/10/21 14:28 09/10/21 10:00 General appearance: Present: no acute distress, well-nourished - EENT Eyes: Present: PERRL, EOM intact ENT: hearing intact, clear oral mucosa, dentition normal - Neck Neck: Present: supple, normal ROM - Respiratory Respiratory effort: normal Respiratory: bilateral: CTA - Cardiovascular Rhythm: regular Heart Sounds: Present: S1 & S2 - Extremities Extremities: no ischemia, pulses intact, pulses symmetrical, No edema, normal temperature, normal color Peripheral Pulses: within normal limits - Abdominal General gastrointestinal: soft, non-tender, non-distended, normal bowel sounds - Integumentary Integumentary: Present: clear, warm, dry - Psychiatric Psychiatric: appropriate mood/affect, intact judgment & insight, memory intact, cooperative - Neurologic Neurologic: CNII-XII intact, other (Generalized weakness) - Allied Health Allied health notes reviewed: nursing Results - Labs CBC & Chem 7: 09/08/21 05:31 09/08/21 05:31 Labs: Laboratory Last Values WBC 8.3 K/mm3 (4.5-11.0) 09/08/21 05:31 RBC 4.03 M/mm3 (3.65-5.03) 09/08/21 05:31 Hgb 11.1 gm/dl (10.1-14.3) 09/08/21 05:31 Hct 34.6 % (30.3-42.9) 09/08/21 05:31 MCV 86 fl (79-97) 09/08/21 05:31 MCH 28 pg (28-32) 09/08/21 05:31 MCHC 32 % (30-34) 09/08/21 05:31 RDW 20.3 % (13.2-15.2) H 09/08/21 05:31 Plt Count 164 K/mm3 (140-440) 09/08/21 05:31 Lymph % (Auto) 28.6 % (13.4-35.0) 09/08/21 05:31 [place] % (Auto) 9.3 % (0.0-7.3) H 09/08/21 05:31 Eos % (Auto) 3.4 % (0.0-4.3) 09/08/21 05:31 Baso % (Auto) 1.0 % (0.0-1.8) 09/08/21 05:31 Lymph # (Auto) 2.4 K/mm3 (1.2-5.4) 09/08/21 05:31 [place] # (Auto) 0.8 K/mm3 (0.0-0.8) 09/08/21 05:31 Eos # (Auto) 0.3 K/mm3 (0.0-0.4) 09/08/21 05:31 Baso # (Auto) 0.1 K/mm3 (0.0-0.1) 09/08/21 05:31 Seg Neutrophils % 57.7 % (40.0-70.0) 09/08/21 05:31 Seg Neutrophils # 4.8 K/mm3 (1.8-7.7) 09/08/21 05:31 PT 14.0 Sec. (12.2-14.9) 08/23/21 22:59 INR 0.97 (0.87-1.13) 08/23/21 22:59 APTT 27.9 Sec. (24.2-36.6) 08/23/21 22:59 D-Dimer 2695.37 ng/mlDDU (0-234) H 08/17/21 14:40 Sodium 139 mmol/L (137-145) 09/08/21 05:31 Potassium 3.9 mmol/L (3.6-5.0) 09/08/21 05:31 Chloride 95.9 mmol/L (98-107) L 09/08/21 05:31 Carbon Dioxide 29 mmol/L (22-30) 09/08/21 05:31 Anion Gap 18 mmol/L 09/08/21 05:31 BUN 36 mg/dL (7-17) H 09/08/21 05:31 Creatinine 6.5 mg/dL (0.6-1.2) H 09/08/21 05:31 Estimated GFR 8 ml/min 09/08/21 05:31 BUN/Creatinine Ratio 6 % 09/08/21 05:31 Glucose 78 mg/dL (65-100) 09/08/21 05:31 POC Glucose 101 mg/dL (70-105) 09/10/21 11:55 Hemoglobin A1c 10.2 % (4-6) H 08/18/21 04:56 Lactic Acid 1.70 mmol/L (0.7-2.0) 08/17/21 02:07 Calcium 10.8 mg/dL (8.4-10.2) H 09/08/21 05:31 Phosphorus 5.30 mg/dL (2.5-4.5) H 09/08/21 05:31 Magnesium 2.50 mg/dL (1.7-2.3) H 09/08/21 05:31 Total Bilirubin 0.30 mg/dL (0.1-1.2) 09/08/21 05:31 AST 13 units/L (5-40) 09/08/21 05:31 ALT 6 units/L (7-56) L 09/08/21 05:31 Alkaline Phosphatase 122 units/L (35-129) 09/08/21 05:31 NT-Pro-B Natriuret Pep 34519 pg/mL (0-450) H 08/17/21 02:07 Total Protein 7.5 g/dL (6.3-8.2) 09/08/21 05:31 Albumin 3.6 g/dL (3.9-5) L 09/08/21 05:31 Albumin/Globulin Ratio 0.9 % 09/08/21 05:31 Triglycerides 128 mg/dL (2-149) 08/17/21 14:40 Cholesterol 128 mg/dL (50-199) 08/17/21 14:40 LDL Cholesterol Direct 69 mg/dL (50-130) 08/17/21 14:40 HDL Cholesterol 30 mg/dL (40-59) L 08/17/21 14:40 Cholesterol/HDL Ratio 4.26 % 08/17/21 14:40 TSH 5.080 mlU/mL (0.270-4.200) H 08/17/21 02:07 Salicylates < 0.3 mg/dL (2.8-20.0) L 08/17/21 02:07 Acetaminophen 5.0 ug/mL (10.0-30.0) L 08/17/21 02:07 Plasma/Serum Alcohol < 0.01 % (0-0.07) 08/17/21 02:07 Coronavirus (PCR) Negative (Negative) 09/01/21 09:52 SARS-CoV-2 (PCR) Negative (Negative) 08/17/21 09:12 Hepatitis A IgM Ab Non-reactive (NonReactive) 08/17/21 14:40 Hep Bs Antigen Non-reactive (Negative) 08/17/21 14:40 Hep B Core IgM Ab Non-reactive (NonReactive) 08/17/21 14:40 Hepatitis C Antibody Non-reactive (NonReactive) 08/17/21 14:40 Blood Type O POSITIVE 08/17/21 17:43 Antibody Screen Negative 08/17/21 17:43 Tomas/IV: Voiding Method External Female Catheter Active Medications - Current Medications Current Medications: Generic Name Dose Route Start Last Admin Trade Name Freq PRN Reason Stop Dose Admin Acetaminophen 650 mg 08/17/21 07:50 08/30/21 20:25 Acetaminophen 325 Mg Tab PO 650 mg Q6H PRN Administration Pain, Mild (1-3) Acetaminophen 650 mg 08/17/21 08:17 08/17/21 14:49 Acetaminophen 650 Mg Rect Supp [place] 650 mg Q4H PRN Administration Pain, Mild (1-3) Albuterol 2.5 mg 08/29/21 20:00 Albuterol 2.5 Mg/3 Ml Nebu IH Q4HRT PRN Shortness Of Breath Amlodipine Besylate 10 mg 08/22/21 11:00 09/10/21 09:06 Amlodipine 10 Mg Tab PO 10 mg QDAY HAM Administration Lipase/Protease/Amylase 1 each 08/26/21 16:00 Lipase 10,500/Protease 25,000/Amylase 43,750 (Units) Dr Lopez FEEDTUBE PRN PRN For Clogged Feeding Tube Aspirin 325 mg 08/22/21 10:00 09/10/21 09:05 Aspirin 325 Mg Tab FEEDTUBE 325 mg QDAY HAM Administration Atorvastatin Calcium 40 mg 08/29/21 22:00 09/09/21 21:35 Atorvastatin 40 Mg Tab PO 40 mg QHS HAM Administration Citalopram Hydrobromide 40 mg 09/04/21 10:00 09/10/21 09:07 Citalopram 20 Mg Tab PO 40 mg QDAY HAM Administration Clonidine HCl 0.1 mg 08/29/21 20:00 09/10/21 14:28 Clonidine 0.1 Mg Tab PO 0.1 mg TID HAM Administration Dextrose 50 ml 08/17/21 23:37 Dextrose 50% In Water (25gm) 50 Ml Syringe IV Q30MIN PRN Hypoglycemia Protocol Diphenhydramine HCl 25 mg 09/07/21 09:30 09/09/21 09:34 Diphenhydramine 25 Mg Cap PO 25 mg Q8H PRN Administration Itching Famotidine 20 mg 08/20/21 10:00 09/10/21 09:06 Famotidine 20 Mg Tab FEEDTUBE 20 mg QDAY HAM Administration Haloperidol Lactate 5 mg 08/19/21 12:00 09/01/21 11:41 Haloperidol Lactate 5 Mg/1 Ml Inj IV 5 mg Q6H PRN Administration Agitation Heparin Sodium (Porcine) 5,000 unit 08/17/21 06:00 09/10/21 14:30 Heparin 5,000 Unit/1 Ml Vial SUB-Q 5,000 unit Q8HR HAM Administration Heparin Sodium (Porcine) 3,000 unit 08/17/21 07:41 08/31/21 10:38 Heparin 10,000 Units/10 Ml Vial IV 3,000 unit KATI PRN Administration hemodialysis Hydralazine HCl 100 mg 08/17/21 09:00 09/10/21 14:29 Hydralazine 100 Mg Tab PO 100 mg TID HAM Administration Hydralazine HCl 10 mg 08/17/21 07:56 08/25/21 05:19 Hydralazine 20 Mg/1 Ml Inj IV 10 mg Q4HR PRN Administration Hypertension Hydromorphone HCl 0.25 mg 08/17/21 07:50 09/10/21 05:59 Hydromorphone 0.5 Mg/0.5 Ml Inj IV 0.25 mg Q4H PRN Administration Pain, Moderate (4-6) Hydroxyzine Pamoate 25 mg 09/03/21 14:50 Hydroxyzine Pamoate 25 Mg Cap PO Q6H PRN Anxiety Sodium Chloride 100 mls @ 999 mls/hr 09/08/21 11:17 Nacl 0.9% IV KATI PRN Hypotension Insulin Glargine 15 units 09/09/21 10:00 09/10/21 09:04 Insulin Glargine 100 Units/Ml SUB-Q 15 units BID HAM Administration Insulin Human Lispro 0 unit 08/18/21 00:00 09/10/21 12:22 Insulin Lispro 100 Unit/Ml SUB-Q Not Given Q6HR [facility] Protocol Levetiracetam 500 mg 08/20/21 10:00 09/10/21 09:06 Levetiracetam 500 Mg Tab PO 500 mg DAILY HAM Administration Levothyroxine Sodium 125 mcg 08/22/21 06:00 09/10/21 05:59 Levothyroxine 125 Mcg Tab PO 125 mcg QAM@0600 HAM Administration Lidocaine HCl 15 ml 09/05/21 14:00 09/10/21 14:44 Magic Mouthwash 30ml PO Not Given TID HAM Losartan Potassium 50 mg 08/17/21 10:00 09/10/21 09:06 Losartan 50 Mg Tab PO 50 mg QDAY HAM Administration Magnesium Hydroxide 30 ml 08/17/21 04:09 08/23/21 23:56 Magnesium Hydroxide (Mom) Oral Liqd Udc PO 30 ml Q4H PRN Administration Constipation Metoprolol Tartrate 100 mg 08/20/21 11:00 09/10/21 09:07 Metoprolol Tartrate 100 Mg Tab PO 100 mg BID HAM Administration Ondansetron HCl 4 mg 08/17/21 04:09 09/10/21 14:29 Ondansetron 4 Mg/2 Ml Inj IV 4 mg Q8H PRN Administration Nausea And Vomiting Phenol 1 spray 09/04/21 09:54 09/06/21 10:13 Phenol 1.4% 177 Ml Bottle MM 1 spray PRN PRN Administration Sore Throat Promethazine HCl 25 mg 09/07/21 20:33 09/07/21 21:08 Promethazine 25 Mg Rect Supp [place] 25 mg Q6H PRN Administration Nausea And Vomiting Sevelamer Carbonate 2,400 mg 09/06/21 11:30 09/10/21 12:14 Sevelamer Carbonate 800 Mg Tab PO 2,400 mg AC HAM Administration Simple Syrup 15 ml 08/26/21 16:00 09/04/21 00:20 Simple Syrup 15 Ml FEEDTUBE 15 ml PRN PRN Administration Hypoglycemia Simple Syrup 30 ml 08/26/21 16:00 Simple Syrup 15 Ml FEEDTUBE PRN PRN Hypoglycemia Sodium Bicarbonate 325 mg 08/26/21 16:00 Sodium Bicarbonate 325 Mg Tab FEEDTUBE PRN PRN For Clogged Feeding Tube Sodium Chloride 10 ml 08/17/21 10:00 09/10/21 12:25 Sodium Chloride 0.9% 10 Ml Flush Syringe IV 10 ml BID HAM Administration Sodium Chloride 10 ml 08/17/21 04:09 09/10/21 14:29 Sodium Chloride 0.9% 10 Ml Flush Syringe IV 10 ml PRN PRN Administration LINE FLUSH Zolpidem Tartrate 5 mg 09/05/21 22:00 09/09/21 21:39 Zolpidem 5 Mg Tab PO 5 mg QHS PRN Administration Sleep Nutrition/Malnutrition Assess - Dietary Evaluation Nutrition/Malnutrition Findings: Nutrition Notes Start: 08/17/21 12:51 Freq: Status: Active Protocol: Document 09/05/21 13:01 GABRIEL (Rec: 09/05/21 13:04 GABRIEL [id number]) Nutrition Notes Initial or Follow up Reassessment Current Diagnosis CKD (stage V CKD),Diabetes, Hypertension,Stroke Other Pertinent Diagnosis ESRD+HD, R-UE Thrombectomy & AVF, Metabolic Encephalopathy. Current Diet TF-Nepro @ 40 ml/hr (since L 09/03). Labs/Tests 09/04: Cl 96.1, BUN 48, Crea 7 .8, Glu 102, Ca 10.4. Pertinent Medications 09/05: Levothyroxine, others nutritionally unremarkable. Height 5 ft 8 in Weight 77.8 kg [place] Body Weight (kg) 63.63 BMI 26.0 Weight change and time frame 0.5 Kg bodyt weight gain in 1 week reported. Weight Status Overweight Subjective/Other Information RD consult for routine F/U on Tf tolerance/continuation assessment. TF was discontinued and resumed during the week after SENIOR ANALYST PROGRAMMER assessment and recommendation, and continues as initially prescribed, and well tolerated, according to RN notes. SENIOR ANALYST PROGRAMMER note on 09/02/21 11:27: Patient demonstrates diminished cognitive function and is holding food with noted spillage from the oral cavity . Much effort with digital manipulatIon of the larynx was conducted to attain initiation of the swallow. Once the swallow was initiated which was over five to seven minutes, she demonstrated good laryngeal excursion with no evidence of aspiration. Patient is currently not appropriate for the mechanical soft diet which was recommended the previous day, due to a change in her current mentation. The anatomical structures are intact; however , she is at risk for aspiration,malnutrition and dehydration secondary to prolonged bolus holding. Recommend an alternative method of nutrition to support her nutritional needs as her mentation waxes and wanes. No further recommendations. Pr is on Room Air, O2 saturation @ 97%, according to Physical Assessment History notes. Pt has missing teeth, according to Physical Assessment History notes. Pt will need to demonstarte adquate swallowing or will need PEG tube before discharge , according to Progress notes. Percent of energy/protein needs met: Prescribed TF-Nepro w/ CARBSTEADY @ 40 ml/hr provides for energy/protein needs (1, 728 Kcal/78 g) during LOS, 97% Kcal; 83% AA. Burn Absent Trauma Absent GI Symptoms None Difficulty In Swallowing Food Allergy No Skin Integrity/Comment Assessment WNL. Current % PO Other Minimum of two criteria No Fluid Accumulation N/A Reduced Intelligence Officer Basic Strength N/A (non-severe) Protein-Calorie Malnutrition N\A #1 Nutrition Diagnosis Inadequate oral intake Diagnosis Progress(for reassessment Continues documentation) Is patient on ventilator? No Is Patient Ambulatory and/or Out of Bed No REE-([facility]-confined to bed) [phone] Calculation Used for Recommendations [facility] Additional Notes Protein: >1.2 g/Kg AdjBW; >94 g/day. Fluids: 1 ml/Kcal, or as per MD. Nutrition Intervention Nutrition Support: Continue TF-Nepro w/CARBSTEADY @ 40 ml/hr. Flush: 150 ml water Q 4 hr, or as per MD. Kcal 1,728 Protein (gm) 78 Carbohydrates (gm) 155 Fat (gm) 92 Fluid (mL) 698 Fiber (gm) 12 % RDI: 97% Kcal; 83% AA. Goal #1 Provide at least 75% of energy /protein needs through Enteral Feeding during LOS. Follow-Up By: 09/12/21 Additional Comments Continue monitoring TF tolerance, SENIOR ANALYST PROGRAMMER evaluation, and BM.
[2021-09-10] MEDS: ZOLPIDEM 5 MG TAB PO PRN (21:59)
[2021-09-11] MEDS: METOPROLOL TARTRATE 100 MG TAB PO SCH ×2 (00:53→10:18)
[2021-09-11] MEDS: INSULIN LISPRO 100 UNIT/ML SUB-Q SCH ×4 (00:56→18:20)
[2021-09-11] MEDS: LEVOTHYROXINE 125 MCG TAB PO SCH (05:44)
[2021-09-11] MEDS: HEPARIN 5,000 UNIT/1 ML VIAL SUB-Q SCH ×3 (05:44→21:28)
[2021-09-11] MEDS: diphenhydrAMINE 25 MG CAP PO PRN (07:45)
[2021-09-11] MEDS: SEVELAMER CARBONATE 800 MG TAB PO SCH ×3 (07:45→16:04)
[2021-09-11] MEDS: MAGIC MOUTHWASH 30ML PO SCH ×3 (07:45→22:56)
[2021-09-11] MEDS: hydrALAZINE 100 MG TAB PO SCH ×3 (07:45→21:25)
[2021-09-11] MEDS: cloNIDine 0.1 MG TAB PO SCH ×2 (07:45→16:04)
[2021-09-11] MEDS: HYDROmorphone 0.5 MG/0.5 ML INJ IV PRN (10:05)
[2021-09-11] MEDS: LOSARTAN 50 MG TAB PO SCH (10:06)
[2021-09-11] MEDS: INSULIN GLARGINE 100 UNITS/ML SUB-Q SCH ×2 (10:06→22:28)
[2021-09-11] MEDS: ASPIRIN 325 MG TAB FEEDTUBE SCH (10:17)
[2021-09-11] MEDS: levETIRAcetam 500 MG TAB PO SCH (10:17)
[2021-09-11] MEDS: amLODIPine 10 MG TAB PO SCH (10:17)
[2021-09-11] MEDS: CITALOPRAM 20 MG TAB PO SCH (10:17)
[2021-09-11] MEDS: FAMOTIDINE 20 MG TAB FEEDTUBE SCH (10:17)
[2021-09-11] MEDS ORDERED: SODIUM CHLORIDE 0.9% 100 ML IV PRN (12:37)
--- NOTE | 2021-09-11 12:37 | Progress Note ---
Assessment and Plan ESRD - HD in am HTN - F/u on meds Lytes - Low Ca bath on HD, f/u labs HD Access - S/p thrombectomy Rt arm AVF & stable F/u d/c plans to Rehab Subjective Date of service: 09/11/21 Principal diagnosis: Possible Sepsis; DKA; AMS; h/o CVA left hemiparesis; ESRD on Dialysis; HTN Interval history: No new complaint Objective - Vital Signs Vital signs: Vital Signs - 12hr 09/11/21 09/11/21 09/11/21 00:52 04:00 05:49 Temperature 98.9 F 98.6 F Pulse Rate 64 63 66 Pulse Rate [ Left Radial] Pulse Rate [ Right Radial] Respiratory 17 17 Rate Blood Pressure Blood Pressure 126/64 109/61 [Right] O2 Sat by Pulse 96 97 Oximetry 09/11/21 09/11/21 09/11/21 07:15 07:45 08:00 Temperature 98.6 F Pulse Rate 65 65 Pulse Rate [ 64 Left Radial] Pulse Rate [ 64 Right Radial] Respiratory 16 18 Rate Blood Pressure 124/67 Blood Pressure 124/67 [Right] O2 Sat by Pulse 98 98 Oximetry 09/11/21 09/11/21 09/11/21 10:06 10:17 10:18 Temperature Pulse Rate 65 65 65 Pulse Rate [ Left Radial] Pulse Rate [ Right Radial] Respiratory Rate Blood Pressure 123/47 123/47 Blood Pressure [Right] O2 Sat by Pulse Oximetry - General Appearance General appearance: other (Awake & responsive) EENT: PERRL, hearing intact Neck: no JVD Respiratory: Present: Clear to Ascultation Cardiology: regular, S1S2 Gastrointestinal: normal Neurologic: alert and oriented x3 - Lab 09/08/21 05:31 09/08/21 05:31 Most recent lab results Calcium 10.8 mg/dL (8.4-10.2) H 09/08/21 05:31 Phosphorus 5.30 mg/dL (2.5-4.5) H 09/08/21 05:31 Magnesium 2.50 mg/dL (1.7-2.3) H 09/08/21 05:31 Medications & Allergies - Medications Allergies/Adverse Reactions: Allergies vancomycin Adverse Reaction (Verified 04/02/13 10:16) Hives Home Medications: Home Medications Medication Instructions Recorded Confirmed Last Taken Type Hydralazine HCl [hydrALAZINE] 100 mg PO BID 04/02/13 08/17/21 04/02/13 08:00 History Aspirin/Dipyridamole [Aggrenox] 1 cap PO BID #60 capsule 04/10/13 08/17/21 Unknown Rx Cinacalcet [Sensipar] 60 mg PO QDAY 08/17/21 08/17/21 Unknown History Citalopram [celeXA] 20 mg PO QDAY 08/17/21 08/17/21 Unknown History Gabapentin [Neurontin] 100 mg PO Q8HR 08/17/21 08/17/21 Unknown History Insulin Glargine,Hum.rec.anlog 55 unit SQ BID 08/17/21 08/17/21 Unknown History [Lantus Solostar] Promethazine [Phenergan] 25 mg PO Q6HR PRN 08/17/21 08/17/21 Unknown History Sevelamer Carbonate [Renvela] 800 mg PO TIDWM 08/17/21 08/17/21 Unknown History amLODIPine [Norvasc] 10 mg PO DAILY 08/17/21 08/17/21 Unknown History carvediloL [Coreg] 25 mg PO BID 08/17/21 08/17/21 Unknown History Albuterol Mdi (or & Nicu Only) 2 puff IH QID PRN 08/29/21 08/29/21 Unknown History [ProAir HFA Inhaler] AtorvaSTATin [Lipitor] 40 mg PO QHS 08/29/21 08/29/21 Unknown History Cetirizine HCl [Zyrtec 10mg tab] 10 mg PO QDAY 08/29/21 08/29/21 Unknown History Ferric Citrate (Nf) [Auryxia] 210 mg PO TID 08/29/21 08/29/21 Unknown History Fluticasone [Flonase] 2 spray NS QDAY PRN 08/29/21 08/29/21 Unknown History Furosemide [Lasix TAB] 40 mg PO QDAY 08/29/21 08/29/21 Unknown History Insulin Aspart (Nf) [NovoLOG 15 units SQ TIDAC 08/29/21 08/29/21 Unknown History Flexpen] Metoclopramide [Reglan] 10 mg PO HS 08/29/21 08/29/21 Unknown History Pantoprazole [Protonix] 40 mg PO QDAY 08/29/21 08/29/21 Unknown History Prochlorperazine Maleate 10 mg PO QDAY PRN 08/29/21 08/29/21 Unknown History [Compazine] Sucroferric Oxyhydroxide(Nf) 500 mg PO TIDWM 08/29/21 08/29/21 Unknown History [Velphoro (Nf)] cloNIDine [Catapres] 0.1 mg PO TID 08/29/21 08/29/21 Unknown History Active Medications: Generic Name Dose Route Start Last Admin Trade Name Freq PRN Reason Stop Dose Admin Acetaminophen 650 mg 08/17/21 07:50 08/30/21 20:25 Acetaminophen 325 Mg Tab PO 650 mg Q6H PRN Administration Pain, Mild (1-3) Acetaminophen 650 mg 08/17/21 08:17 08/17/21 14:49 Acetaminophen 650 Mg Rect Supp [place] 650 mg Q4H PRN Administration Pain, Mild (1-3) Albuterol 2.5 mg 08/29/21 20:00 Albuterol 2.5 Mg/3 Ml Nebu IH Q4HRT PRN Shortness Of Breath Amlodipine Besylate 10 mg 08/22/21 11:00 09/11/21 10:17 Amlodipine 10 Mg Tab PO 10 mg QDAY HAM Administration Lipase/Protease/Amylase 1 each 08/26/21 16:00 Lipase 10,500/Protease 25,000/Amylase 43,750 (Units) Dr John ZARAGOZATNIKOLAY PRN PRN For Clogged Feeding Tube Aspirin 325 mg 08/22/21 10:00 09/11/21 10:17 Aspirin 325 Mg Tab FEEDTUBE 325 mg QDAY HAM Administration Atorvastatin Calcium 40 mg 08/29/21 22:00 09/10/21 21:59 Atorvastatin 40 Mg Tab PO 40 mg QHS HAM Administration Citalopram Hydrobromide 40 mg 09/04/21 10:00 09/11/21 10:17 Citalopram 20 Mg Tab PO 40 mg QDAY HAM Administration Clonidine HCl 0.1 mg 08/29/21 20:00 09/11/21 07:45 Clonidine 0.1 Mg Tab PO 0.1 mg TID HAM Administration Dextrose 50 ml 08/17/21 23:37 Dextrose 50% In Water (25gm) 50 Ml Syringe IV Q30MIN PRN Hypoglycemia Protocol Diphenhydramine HCl 25 mg 09/07/21 09:30 09/11/21 07:45 Diphenhydramine 25 Mg Cap PO 25 mg Q8H PRN Administration Itching Famotidine 20 mg 08/20/21 10:00 09/11/21 10:17 Famotidine 20 Mg Tab FEEDTUBE 20 mg QDAY HAM Administration Haloperidol Lactate 5 mg 08/19/21 12:00 09/01/21 11:41 Haloperidol Lactate 5 Mg/1 Ml Inj IV 5 mg Q6H PRN Administration Agitation Heparin Sodium (Porcine) 5,000 unit 08/17/21 06:00 09/11/21 05:44 Heparin 5,000 Unit/1 Ml Vial SUB-Q 5,000 unit Q8HR HAM Administration Heparin Sodium (Porcine) 3,000 unit 08/17/21 07:41 08/31/21 10:38 Heparin 10,000 Units/10 Ml Vial IV 3,000 unit KATI PRN Administration hemodialysis Hydralazine HCl 100 mg 08/17/21 09:00 09/11/21 07:45 Hydralazine 100 Mg Tab PO 100 mg TID HAM Administration Hydralazine HCl 10 mg 08/17/21 07:56 08/25/21 05:19 Hydralazine 20 Mg/1 Ml Inj IV 10 mg Q4HR PRN Administration Hypertension Hydromorphone HCl 0.25 mg 08/17/21 07:50 09/11/21 10:05 Hydromorphone 0.5 Mg/0.5 Ml Inj IV 0.25 mg Q4H PRN Administration Pain, Moderate (4-6) Hydroxyzine Pamoate 25 mg 09/03/21 14:50 Hydroxyzine Pamoate 25 Mg Cap PO Q6H PRN Anxiety Sodium Chloride 100 mls @ 999 mls/hr 09/08/21 11:17 Nacl 0.9% IV KATI PRN Hypotension Insulin Glargine 15 units 09/09/21 10:00 09/11/21 10:06 Insulin Glargine 100 Units/Ml SUB-Q 15 units BID HAM Administration Insulin Human Lispro 0 unit 08/18/21 00:00 09/11/21 05:43 Insulin Lispro 100 Unit/Ml SUB-Q Not Given Q6HR [facility] Protocol Levetiracetam 500 mg 08/20/21 10:00 09/11/21 10:17 Levetiracetam 500 Mg Tab PO 500 mg DAILY HAM Administration Levothyroxine Sodium 125 mcg 08/22/21 06:00 09/11/21 05:44 Levothyroxine 125 Mcg Tab PO 125 mcg QAM@0600 HAM Administration Lidocaine HCl 15 ml 09/05/21 14:00 09/11/21 07:45 Magic Mouthwash 30ml PO 15 ml TID HAM Administration Losartan Potassium 50 mg 08/17/21 10:00 09/11/21 10:06 Losartan 50 Mg Tab PO 50 mg QDAY HAM Administration Magnesium Hydroxide 30 ml 08/17/21 04:09 08/23/21 23:56 Magnesium Hydroxide (Mom) Oral Liqd Udc PO 30 ml Q4H PRN Administration Constipation Metoprolol Tartrate 100 mg 08/20/21 11:00 09/11/21 10:18 Metoprolol Tartrate 100 Mg Tab PO Not Given BID HAM Ondansetron HCl 4 mg 08/17/21 04:09 09/10/21 22:01 Ondansetron 4 Mg/2 Ml Inj IV 4 mg Q8H PRN Administration Nausea And Vomiting Phenol 1 spray 09/04/21 09:54 09/06/21 10:13 Phenol 1.4% 177 Ml Bottle MM 1 spray PRN PRN Administration Sore Throat Promethazine HCl 25 mg 09/07/21 20:33 09/07/21 21:08 Promethazine 25 Mg Rect Supp [place] 25 mg Q6H PRN Administration Nausea And Vomiting Sevelamer Carbonate 2,400 mg 09/06/21 11:30 09/11/21 12:00 Sevelamer Carbonate 800 Mg Tab PO 2,400 mg AC HAM Administration Simple Syrup 15 ml 08/26/21 16:00 09/04/21 00:20 Simple Syrup 15 Ml FEEDTUBE 15 ml PRN PRN Administration Hypoglycemia Simple Syrup 30 ml 08/26/21 16:00 Simple Syrup 15 Ml FEEDTUBE PRN PRN Hypoglycemia Sodium Bicarbonate 325 mg 08/26/21 16:00 Sodium Bicarbonate 325 Mg Tab FEEDTUBE PRN PRN For Clogged Feeding Tube Sodium Chloride 10 ml 08/17/21 10:00 09/11/21 10:17 Sodium Chloride 0.9% 10 Ml Flush Syringe IV 10 ml BID HAM Administration Sodium Chloride 10 ml 08/17/21 04:09 09/10/21 14:29 Sodium Chloride 0.9% 10 Ml Flush Syringe IV 10 ml PRN PRN Administration LINE FLUSH Zolpidem Tartrate 5 mg 09/05/21 22:00 09/10/21 21:59 Zolpidem 5 Mg Tab PO 5 mg QHS PRN Administration Sleep
--- NOTE | 2021-09-11 13:35 | Progress Note ---
Assessment and Plan Possible Sepsis (high grade fevers, tachycardia, acute encephalopathy, tachypnea) DKA Acute Metabolic Encephalopathy h/o CVA with left-sided deficits End Stage renal Disease on HD HTN Hypothyroidism - for dialysis tomorrow - continue aspiration precautions; HOB > 40 degrees - discharge planning ongoing concurrently - continue care as below otherwise; - continue keppra as AED - prn Haldol for delirium / agitation - prn supplemental oxygen for target O2 sats > 90% - prn bronchodilators (DG) with pulm hygiene per RT - HD/UF per nephrology prescription for toxin and volume clearance - continue to avoid nephrotoxins, renally dose all medications - continue mobility protocols to prevent pressure ulcers - PT/OT as tolerated - Wound care per RN/WCT - continue accuchecks with glycemic control per SSI for target blood glucose < 180 mg/dL - tobacco abstinence counseled at the bedside - home oxygen evaluation at discharge - GI & VTE prophylaxis - Flu & pneumovax per protocol - Pulmonary out patient follow up for PFTs and optimization of respiratory status - continue other care per attending / other consultants - prn analgesia per pain score COVID SPECIFIC INTERVENTIONS - COVID-19 PCR negative ... re-evaluate in am & prn Subjective Date of service: 09/11/21 Principal diagnosis: Possible Sepsis; DKA; AMS; h/o CVA left hemiparesis; ESRD on Dialysis; HTN Interval history: Patient is seen today for: Possible Sepsis; DKA; Acute Metabolic Encephalopathy; h/o CVA with left-sided deficits; End Stage renal Disease on HD; HTN Seen and examined at bedside; 24hour events reviewed; nursing and respiratory care staff consulted; no adverse overnight events reported to me; resting peacefully in bed; discharge planning is ongoing; denies acute chest pains or SOB Objective Vital Signs - 12hr 09/11/21 09/11/21 09/11/21 04:00 05:49 07:15 Temperature 98.6 F 98.6 F Pulse Rate 63 66 65 Pulse Rate [ Left Radial] Pulse Rate [ Right Radial] Respiratory 17 16 Rate Blood Pressure Blood Pressure 109/61 124/67 [Right] O2 Sat by Pulse 97 98 Oximetry 09/11/21 09/11/21 09/11/21 07:45 08:00 10:06 Temperature Pulse Rate 65 65 Pulse Rate [ 64 Left Radial] Pulse Rate [ 64 Right Radial] Respiratory 18 Rate Blood Pressure 124/67 123/47 Blood Pressure [Right] O2 Sat by Pulse 98 Oximetry 09/11/21 09/11/21 10:17 10:18 Temperature Pulse Rate 65 65 Pulse Rate [ Left Radial] Pulse Rate [ Right Radial] Respiratory Rate Blood Pressure 123/47 Blood Pressure [Right] O2 Sat by Pulse Oximetry Constitutional: no acute distress, alert, other (middle aged obese female with normal respiratory effort at rest) Eyes: non-icteric ENT: oropharynx moist Neck: supple, no lymphadenopathy, no JVD, other (large circumference) Effort: normal Ascultation: Bilateral: clear, diminished breath sounds Percussion: Bilateral: not dull Cardiovascular: regular rate and rhythm, other (S1,S2) Gastrointestinal: normoactive bowel sounds, soft, non-tender, non-distended (protuberant), other (obese) Integumentary: normal Extremities: no cyanosis, no edema, pulses normal, no ischemia or petechiae Neurologic: normal mental status, non-focal exam (grossly), pupils equal and round, CN II-XII normal Psychiatric: mood appropriate, affect normal CBC and BMP: 09/08/21 05:31 09/08/21 05:31 ABG, PT/INR, D-dimer: PT/INR, D-dimer PT 14.0 Sec. (12.2-14.9) 08/23/21 22:59 INR 0.97 (0.87-1.13) 08/23/21 22:59 D-Dimer 2695.37 ng/mlDDU (0-234) H 08/17/21 14:40 Abnormal lab findings: Abnormal Labs 08/17/21 08/17/21 08/17/21 00:33 00:33 02:07 WBC Hgb MCH RDW 19.7 H Lymph % (Auto) 10.5 L Kings % (Auto) Lymph # (Auto) 1.1 L [place] # (Auto) Baso # (Auto) Seg Neutrophils % 79.1 H Seg Neutrophils # 8.6 H D-Dimer Sodium 132 L 134 L Chloride 87.8 L 88.4 L Carbon Dioxide 21 L BUN 61 H 61 H Creatinine 10.1 H 10.3 H Glucose 594 H* 533 H* POC Glucose Hemoglobin A1c Calcium Phosphorus Magnesium ALT < 5 L Alkaline Phosphatase 182 H NT-Pro-B Natriuret Pep 62650 H Total Protein Albumin HDL Cholesterol TSH Salicylates Acetaminophen 08/17/21 08/17/21 08/17/21 02:07 02:07 02:07 WBC Hgb MCH RDW Lymph % (Auto) Kings % (Auto) Lymph # (Auto) Kings # (Auto) Baso # (Auto) Seg Neutrophils % Seg Neutrophils # D-Dimer Sodium Chloride Carbon Dioxide BUN Creatinine Glucose POC Glucose Hemoglobin A1c Calcium Phosphorus Magnesium ALT Alkaline Phosphatase NT-Pro-B Natriuret Pep Total Protein Albumin HDL Cholesterol TSH 5.080 H Salicylates < 0.3 L Acetaminophen 5.0 L 08/17/21 08/17/21 08/17/21 04:20 04:20 05:09 WBC Hgb MCH RDW Lymph % (Auto) Kings % (Auto) Lymph # (Auto) Kings # (Auto) Baso # (Auto) Seg Neutrophils % Seg Neutrophils # D-Dimer Sodium 136 L Chloride 90.9 L Carbon Dioxide BUN 61 H Creatinine 10.4 H Glucose 351 H POC Glucose 298 H Hemoglobin A1c Calcium Phosphorus 6.20 H Magnesium ALT Alkaline Phosphatase NT-Pro-B Natriuret Pep Total Protein Albumin HDL Cholesterol TSH Salicylates Acetaminophen 08/17/21 08/17/21 08/17/21 09:58 10:53 13:14 WBC Hgb MCH RDW Lymph % (Auto) Kings % (Auto) Lymph # (Auto) Kings # (Auto) Baso # (Auto) Seg Neutrophils % Seg Neutrophils # D-Dimer Sodium Chloride Carbon Dioxide BUN Creatinine Glucose POC Glucose 139 H 162 H 145 H Hemoglobin A1c Calcium Phosphorus Magnesium ALT Alkaline Phosphatase NT-Pro-B Natriuret Pep Total Protein Albumin HDL Cholesterol TSH Salicylates Acetaminophen 08/17/21 08/17/21 08/17/21 14:40 14:40 14:40 WBC Hgb MCH RDW Lymph % (Auto) Kings % (Auto) Lymph # (Auto) Kings # (Auto) Baso # (Auto) Seg Neutrophils % Seg Neutrophils # D-Dimer 2695.37 H Sodium Chloride 96.7 L Carbon Dioxide BUN 63 H Creatinine 10.7 H Glucose 145 H POC Glucose Hemoglobin A1c Calcium Phosphorus Magnesium ALT Alkaline Phosphatase NT-Pro-B Natriuret Pep Total Protein Albumin HDL Cholesterol 30 L TSH Salicylates Acetaminophen 08/17/21 08/17/21 08/17/21 14:40 16:45 17:47 WBC Hgb MCH RDW Lymph % (Auto) Kings % (Auto) Lymph # (Auto) Kings # (Auto) Baso # (Auto) Seg Neutrophils % Seg Neutrophils # D-Dimer Sodium Chloride 96.2 L Carbon Dioxide BUN 44 H Creatinine 7.2 H Glucose 167 H POC Glucose 136 H 165 H Hemoglobin A1c Calcium Phosphorus Magnesium ALT Alkaline Phosphatase NT-Pro-B Natriuret Pep Total Protein Albumin HDL Cholesterol TSH Salicylates Acetaminophen 08/17/21 08/17/21 08/17/21 18:01 21:01 22:40 WBC Hgb MCH RDW Lymph % (Auto) Kings % (Auto) Lymph # (Auto) Kings # (Auto) Baso # (Auto) Seg Neutrophils % Seg Neutrophils # D-Dimer Sodium Chloride 97.1 L 96.4 L Carbon Dioxide BUN 39 H 40 H Creatinine 8.0 H 8.5 H Glucose 122 H 109 H POC Glucose 172 H Hemoglobin A1c Calcium Phosphorus Magnesium ALT Alkaline Phosphatase NT-Pro-B Natriuret Pep Total Protein Albumin HDL Cholesterol TSH Salicylates Acetaminophen 08/17/21 08/18/21 08/18/21 22:40 02:13 04:56 WBC Hgb MCH 27 L RDW 19.7 H Lymph % (Auto) Kings % (Auto) Lymph # (Auto) Kings # (Auto) Baso # (Auto) Seg Neutrophils % Seg Neutrophils # D-Dimer Sodium Chloride 96.8 L Carbon Dioxide BUN 44 H Creatinine 9.3 H Glucose 170 H POC Glucose 190 H Hemoglobin A1c Calcium Phosphorus 6.70 H Magnesium ALT Alkaline Phosphatase NT-Pro-B Natriuret Pep Total Protein Albumin HDL Cholesterol TSH Salicylates Acetaminophen 08/18/21 08/18/21 08/18/21 04:56 04:56 17:01 WBC Hgb MCH 27 L RDW 19.7 H Lymph % (Auto) Kings % (Auto) 9.7 H Lymph # (Auto) Kings # (Auto) Baso # (Auto) Seg Neutrophils % Seg Neutrophils # D-Dimer Sodium Chloride Carbon Dioxide BUN Creatinine Glucose POC Glucose 228 H Hemoglobin A1c 10.2 H Calcium Phosphorus Magnesium ALT Alkaline Phosphatase NT-Pro-B Natriuret Pep Total Protein Albumin HDL Cholesterol TSH Salicylates Acetaminophen 08/18/21 08/19/21 08/19/21 23:58 04:37 04:37 WBC Hgb MCH 27 L RDW 19.5 H Lymph % (Auto) Kings % (Auto) Lymph # (Auto) Kings # (Auto) Baso # (Auto) Seg Neutrophils % Seg Neutrophils # D-Dimer Sodium Chloride 96.7 L Carbon Dioxide 21 L BUN 57 H Creatinine 10.2 H Glucose 151 H POC Glucose 192 H Hemoglobin A1c Calcium Phosphorus Magnesium ALT Alkaline Phosphatase NT-Pro-B Natriuret Pep Total Protein Albumin HDL Cholesterol TSH Salicylates Acetaminophen 08/19/21 08/19/21 08/20/21 17:46 22:59 04:24 WBC Hgb MCH RDW Lymph % (Auto) Kings % (Auto) Lymph # (Auto) Kings # (Auto) Baso # (Auto) Seg Neutrophils % Seg Neutrophils # D-Dimer Sodium 133 L Chloride 87.9 L Carbon Dioxide 15 L BUN 33 H Creatinine 7.3 H Glucose 365 H POC Glucose 217 H 282 H Hemoglobin A1c Calcium Phosphorus 6.50 H Magnesium ALT Alkaline Phosphatase NT-Pro-B Natriuret Pep Total Protein Albumin HDL Cholesterol TSH Salicylates Acetaminophen 08/20/21 08/20/21 08/20/21 06:07 07:51 15:37 WBC Hgb MCH RDW Lymph % (Auto) Kings % (Auto) Lymph # (Auto) Kings # (Auto) Baso # (Auto) Seg Neutrophils % Seg Neutrophils # D-Dimer Sodium Chloride Carbon Dioxide BUN Creatinine Glucose POC Glucose 398 H 308 H 247 H Hemoglobin A1c Calcium Phosphorus Magnesium ALT Alkaline Phosphatase NT-Pro-B Natriuret Pep Total Protein Albumin HDL Cholesterol TSH Salicylates Acetaminophen 08/20/21 08/21/21 08/21/21 23:22 04:45 05:07 WBC Hgb MCH RDW Lymph % (Auto) Kings % (Auto) Lymph # (Auto) Kings # (Auto) Baso # (Auto) Seg Neutrophils % Seg Neutrophils # D-Dimer Sodium 134 L Chloride 92.9 L Carbon Dioxide BUN 48 H Creatinine 8.0 H Glucose 389 H POC Glucose 316 H 407 H Hemoglobin A1c Calcium 10.6 H Phosphorus Magnesium ALT Alkaline Phosphatase NT-Pro-B Natriuret Pep Total Protein Albumin HDL Cholesterol TSH Salicylates Acetaminophen 08/21/21 08/21/21 08/21/21 11:37 15:52 23:44 WBC Hgb MCH RDW Lymph % (Auto) Kings % (Auto) Lymph # (Auto) Kings # (Auto) Baso # (Auto) Seg Neutrophils % Seg Neutrophils # D-Dimer Sodium Chloride Carbon Dioxide BUN Creatinine Glucose POC Glucose 244 H 325 H 221 H Hemoglobin A1c Calcium Phosphorus Magnesium ALT Alkaline Phosphatase NT-Pro-B Natriuret Pep Total Protein Albumin HDL Cholesterol TSH Salicylates Acetaminophen 08/22/21 08/22/21 08/23/21 06:06 12:27 00:37 WBC Hgb MCH RDW Lymph % (Auto) Kings % (Auto) Lymph # (Auto) Kings # (Auto) Baso # (Auto) Seg Neutrophils % Seg Neutrophils # D-Dimer Sodium Chloride Carbon Dioxide BUN Creatinine Glucose POC Glucose 224 H 247 H 341 H Hemoglobin A1c Calcium Phosphorus Magnesium ALT Alkaline Phosphatase NT-Pro-B Natriuret Pep Total Protein Albumin HDL Cholesterol TSH Salicylates Acetaminophen 08/23/21 08/23/21 08/23/21 04:20 05:37 11:56 WBC Hgb MCH RDW Lymph % (Auto) Kings % (Auto) Lymph # (Auto) Kings # (Auto) Baso # (Auto) Seg Neutrophils % Seg Neutrophils # D-Dimer Sodium Chloride 94.4 L Carbon Dioxide BUN 49 H Creatinine 7.7 H Glucose 201 H POC Glucose 210 H 162 H Hemoglobin A1c Calcium 10.9 H Phosphorus Magnesium ALT Alkaline Phosphatase NT-Pro-B Natriuret Pep Total Protein Albumin HDL Cholesterol TSH Salicylates Acetaminophen 08/23/21 08/23/21 08/23/21 17:45 22:58 22:59 WBC 12.2 H Hgb MCH 26 L RDW 20.3 H Lymph % (Auto) Kings % (Auto) Lymph # (Auto) Kings # (Auto) Baso # (Auto) Seg Neutrophils % Seg Neutrophils # D-Dimer Sodium Chloride Carbon Dioxide BUN Creatinine Glucose POC Glucose 211 H 218 H Hemoglobin A1c Calcium Phosphorus Magnesium ALT Alkaline Phosphatase NT-Pro-B Natriuret Pep Total Protein Albumin HDL Cholesterol TSH Salicylates Acetaminophen 08/23/21 08/24/21 08/24/21 22:59 04:23 04:23 WBC 15.4 H Hgb MCH 27 L RDW 19.8 H Lymph % (Auto) Kings % (Auto) 13.0 H Lymph # (Auto) Kings # (Auto) 2.0 H Baso # (Auto) 0.2 H Seg Neutrophils % Seg Neutrophils # 9.8 H D-Dimer Sodium 136 L Chloride 93.0 L Carbon Dioxide BUN 73 H Creatinine 8.7 H 9.2 H Glucose 145 H POC Glucose Hemoglobin A1c Calcium 10.7 H Phosphorus 6.30 H Magnesium 2.70 H ALT 6 L Alkaline Phosphatase 157 H NT-Pro-B Natriuret Pep Total Protein Albumin 3.7 L HDL Cholesterol TSH Salicylates Acetaminophen 08/24/21 08/24/21 08/24/21 05:09 11:20 18:28 WBC Hgb MCH RDW Lymph % (Auto) Kings % (Auto) Lymph # (Auto) Kings # (Auto) Baso # (Auto) Seg Neutrophils % Seg Neutrophils # D-Dimer Sodium Chloride Carbon Dioxide BUN Creatinine Glucose POC Glucose 155 H 110 H 182 H Hemoglobin A1c Calcium Phosphorus Magnesium ALT Alkaline Phosphatase NT-Pro-B Natriuret Pep Total Protein Albumin HDL Cholesterol TSH Salicylates Acetaminophen 08/25/21 08/25/21 08/25/21 00:15 04:44 11:28 WBC 11.3 H Hgb MCH 27 L RDW 20.4 H Lymph % (Auto) Kings % (Auto) Lymph # (Auto) Kings # (Auto) Baso # (Auto) Seg Neutrophils % Seg Neutrophils # D-Dimer Sodium Chloride Carbon Dioxide BUN Creatinine Glucose POC Glucose 247 H 189 H Hemoglobin A1c Calcium Phosphorus Magnesium ALT Alkaline Phosphatase NT-Pro-B Natriuret Pep Total Protein Albumin HDL Cholesterol TSH Salicylates Acetaminophen 08/25/21 08/25/21 08/26/21 16:42 23:29 05:22 WBC Hgb MCH RDW Lymph % (Auto) Kings % (Auto) Lymph # (Auto) Kings # (Auto) Baso # (Auto) Seg Neutrophils % Seg Neutrophils # D-Dimer Sodium Chloride Carbon Dioxide BUN Creatinine 10.0 H Glucose POC Glucose 169 H 213 H Hemoglobin A1c Calcium Phosphorus Magnesium ALT Alkaline Phosphatase NT-Pro-B Natriuret Pep Total Protein Albumin HDL Cholesterol TSH Salicylates Acetaminophen 08/26/21 08/26/21 08/26/21 06:12 11:47 23:33 WBC Hgb MCH RDW Lymph % (Auto) Kings % (Auto) Lymph # (Auto) Kings # (Auto) Baso # (Auto) Seg Neutrophils % Seg Neutrophils # D-Dimer Sodium Chloride Carbon Dioxide BUN Creatinine Glucose POC Glucose 191 H 197 H 197 H Hemoglobin A1c Calcium Phosphorus Magnesium ALT Alkaline Phosphatase NT-Pro-B Natriuret Pep Total Protein Albumin HDL Cholesterol TSH Salicylates Acetaminophen 08/27/21 08/27/21 08/27/21 06:02 06:02 06:17 WBC Hgb MCH 27 L RDW 20.1 H Lymph % (Auto) Kings % (Auto) 14.2 H Lymph # (Auto) Kings # (Auto) 1.4 H Baso # (Auto) Seg Neutrophils % Seg Neutrophils # D-Dimer Sodium 134 L Chloride 93.8 L Carbon Dioxide BUN 56 H Creatinine 6.4 H Glucose 253 H POC Glucose 250 H Hemoglobin A1c Calcium Phosphorus 6.00 H Magnesium 2.50 H ALT < 5 L Alkaline Phosphatase 135 H NT-Pro-B Natriuret Pep Total Protein Albumin 3.6 L HDL Cholesterol TSH Salicylates Acetaminophen 08/27/21 08/27/21 08/27/21 11:21 16:05 23:13 WBC Hgb MCH RDW Lymph % (Auto) Kings % (Auto) Lymph # (Auto) Kings # (Auto) Baso # (Auto) Seg Neutrophils % Seg Neutrophils # D-Dimer Sodium Chloride Carbon Dioxide BUN Creatinine Glucose POC Glucose 287 H 321 H 286 H Hemoglobin A1c Calcium Phosphorus Magnesium ALT Alkaline Phosphatase NT-Pro-B Natriuret Pep Total Protein Albumin HDL Cholesterol TSH Salicylates Acetaminophen 08/28/21 08/28/21 08/28/21 05:11 05:29 11:30 WBC Hgb MCH RDW Lymph % (Auto) Kings % (Auto) Lymph # (Auto) Kings # (Auto) Baso # (Auto) Seg Neutrophils % Seg Neutrophils # D-Dimer Sodium 134 L Chloride 91.8 L Carbon Dioxide BUN 79 H Creatinine 8.2 H Glucose 230 H POC Glucose 225 H 190 H Hemoglobin A1c Calcium 10.8 H Phosphorus Magnesium ALT Alkaline Phosphatase NT-Pro-B Natriuret Pep Total Protein Albumin HDL Cholesterol TSH Salicylates Acetaminophen 08/28/21 08/29/21 08/29/21 15:53 00:04 04:29 WBC Hgb MCH 27 L RDW 20.6 H Lymph % (Auto) Kings % (Auto) Lymph # (Auto) Kings # (Auto) Baso # (Auto) Seg Neutrophils % Seg Neutrophils # D-Dimer Sodium Chloride Carbon Dioxide BUN Creatinine Glucose POC Glucose 235 H 223 H Hemoglobin A1c Calcium Phosphorus Magnesium ALT Alkaline Phosphatase NT-Pro-B Natriuret Pep Total Protein Albumin HDL Cholesterol TSH Salicylates Acetaminophen 08/29/21 08/29/21 08/29/21 04:29 05:37 16:14 WBC Hgb MCH RDW Lymph % (Auto) Kings % (Auto) Lymph # (Auto) Kings # (Auto) Baso # (Auto) Seg Neutrophils % Seg Neutrophils # D-Dimer Sodium Chloride Carbon Dioxide BUN Creatinine 9.8 H Glucose POC Glucose 174 H 200 H Hemoglobin A1c Calcium Phosphorus Magnesium ALT Alkaline Phosphatase NT-Pro-B Natriuret Pep Total Protein Albumin HDL Cholesterol TSH Salicylates Acetaminophen 08/30/21 08/30/21 08/30/21 00:10 05:12 05:12 WBC Hgb MCH 27 L RDW 20.2 H Lymph % (Auto) Kings % (Auto) 12.7 H Lymph # (Auto) Kings # (Auto) 1.4 H Baso # (Auto) 0.2 H Seg Neutrophils % Seg Neutrophils # D-Dimer Sodium Chloride 97.5 L Carbon Dioxide BUN 58 H Creatinine 6.9 H Glucose 112 H POC Glucose 111 H Hemoglobin A1c Calcium 10.8 H Phosphorus 6.00 H Magnesium 2.80 H ALT Alkaline Phosphatase 147 H NT-Pro-B Natriuret Pep Total Protein Albumin HDL Cholesterol TSH Salicylates Acetaminophen 08/30/21 08/31/21 08/31/21 16:40 00:27 04:30 WBC Hgb MCH RDW Lymph % (Auto) Kings % (Auto) Lymph # (Auto) Kings # (Auto) Baso # (Auto) Seg Neutrophils % Seg Neutrophils # D-Dimer Sodium Chloride Carbon Dioxide BUN Creatinine Glucose POC Glucose 224 H 200 H 125 H Hemoglobin A1c Calcium Phosphorus Magnesium ALT Alkaline Phosphatase NT-Pro-B Natriuret Pep Total Protein Albumin HDL Cholesterol TSH Salicylates Acetaminophen 09/02/21 09/02/21 09/03/21 06:04 18:25 00:55 WBC Hgb MCH RDW Lymph % (Auto) Kings % (Auto) Lymph # (Auto) Kings # (Auto) Baso # (Auto) Seg Neutrophils % Seg Neutrophils # D-Dimer Sodium Chloride Carbon Dioxide BUN Creatinine Glucose POC Glucose 68 L 134 H 110 H Hemoglobin A1c Calcium Phosphorus Magnesium ALT Alkaline Phosphatase NT-Pro-B Natriuret Pep Total Protein Albumin HDL Cholesterol TSH Salicylates Acetaminophen 09/03/21 09/03/21 09/04/21 05:53 16:10 00:11 WBC Hgb MCH RDW Lymph % (Auto) Kings % (Auto) Lymph # (Auto) Kings # (Auto) Baso # (Auto) Seg Neutrophils % Seg Neutrophils # D-Dimer Sodium Chloride Carbon Dioxide BUN Creatinine Glucose POC Glucose 64 L 60 L 69 L Hemoglobin A1c Calcium Phosphorus Magnesium ALT Alkaline Phosphatase NT-Pro-B Natriuret Pep Total Protein Albumin HDL Cholesterol TSH Salicylates Acetaminophen 09/04/21 09/04/21 09/04/21 06:01 07:29 10:04 WBC Hgb MCH RDW Lymph % (Auto) Kings % (Auto) Lymph # (Auto) Kings # (Auto) Baso # (Auto) Seg Neutrophils % Seg Neutrophils # D-Dimer Sodium Chloride 96.1 L Carbon Dioxide BUN 48 H Creatinine 7.8 H Glucose 102 H POC Glucose 116 H 119 H Hemoglobin A1c Calcium 10.4 H Phosphorus Magnesium ALT Alkaline Phosphatase NT-Pro-B Natriuret Pep Total Protein Albumin HDL Cholesterol TSH Salicylates Acetaminophen 09/04/21 09/04/21 09/05/21 10:59 16:24 00:36 WBC Hgb MCH RDW Lymph % (Auto) Kings % (Auto) Lymph # (Auto) Kings # (Auto) Baso # (Auto) Seg Neutrophils % Seg Neutrophils # D-Dimer Sodium Chloride Carbon Dioxide BUN Creatinine Glucose POC Glucose 137 H 149 H 139 H Hemoglobin A1c Calcium Phosphorus Magnesium ALT Alkaline Phosphatase NT-Pro-B Natriuret Pep Total Protein Albumin HDL Cholesterol TSH Salicylates Acetaminophen 09/05/21 09/05/21 09/05/21 04:57 06:43 16:22 WBC 11.6 H Hgb 9.9 L MCH 27 L RDW 20.4 H Lymph % (Auto) Kings % (Auto) Lymph # (Auto) Kings # (Auto) Baso # (Auto) Seg Neutrophils % Seg Neutrophils # D-Dimer Sodium Chloride Carbon Dioxide BUN Creatinine Glucose POC Glucose 149 H 188 H Hemoglobin A1c Calcium Phosphorus Magnesium ALT Alkaline Phosphatase NT-Pro-B Natriuret Pep Total Protein Albumin HDL Cholesterol TSH Salicylates Acetaminophen 09/05/21 09/06/21 09/06/21 23:42 05:39 05:39 WBC Hgb MCH 27 L RDW 20.2 H Lymph % (Auto) Kings % (Auto) 9.2 H Lymph # (Auto) Kings # (Auto) 1.0 H Baso # (Auto) Seg Neutrophils % Seg Neutrophils # D-Dimer Sodium Chloride 94.2 L Carbon Dioxide BUN 35 H Creatinine 6.3 H Glucose 167 H POC Glucose 223 H Hemoglobin A1c Calcium 10.8 H Phosphorus 5.30 H Magnesium 2.50 H ALT Alkaline Phosphatase 154 H NT-Pro-B Natriuret Pep Total Protein 8.4 H Albumin 3.8 L HDL Cholesterol TSH Salicylates Acetaminophen 09/06/21 09/06/21 09/06/21 07:02 11:50 16:46 WBC Hgb MCH RDW Lymph % (Auto) Kings % (Auto) Lymph # (Auto) Kings # (Auto) Baso # (Auto) Seg Neutrophils % Seg Neutrophils # D-Dimer Sodium Chloride Carbon Dioxide BUN Creatinine Glucose POC Glucose 169 H 158 H 110 H Hemoglobin A1c Calcium Phosphorus Magnesium ALT Alkaline Phosphatase NT-Pro-B Natriuret Pep Total Protein Albumin HDL Cholesterol TSH Salicylates Acetaminophen 09/07/21 09/07/21 09/07/21 00:29 12:57 16:57 WBC Hgb MCH RDW Lymph % (Auto) Kings % (Auto) Lymph # (Auto) Kings # (Auto) Baso # (Auto) Seg Neutrophils % Seg Neutrophils # D-Dimer Sodium Chloride Carbon Dioxide BUN Creatinine Glucose POC Glucose 148 H 146 H 157 H Hemoglobin A1c Calcium Phosphorus Magnesium ALT Alkaline Phosphatase NT-Pro-B Natriuret Pep Total Protein Albumin HDL Cholesterol TSH Salicylates Acetaminophen 09/08/21 09/08/21 09/08/21 05:31 05:31 10:11 WBC Hgb MCH RDW 20.3 H Lymph % (Auto) Kings % (Auto) 9.3 H Lymph # (Auto) Kings # (Auto) Baso # (Auto) Seg Neutrophils % Seg Neutrophils # D-Dimer Sodium Chloride 95.9 L Carbon Dioxide BUN 36 H Creatinine 6.5 H Glucose POC Glucose 106 H Hemoglobin A1c Calcium 10.8 H Phosphorus 5.30 H Magnesium 2.50 H ALT 6 L Alkaline Phosphatase NT-Pro-B Natriuret Pep Total Protein Albumin 3.6 L HDL Cholesterol TSH Salicylates Acetaminophen 09/08/21 09/08/21 09/08/21 11:24 17:15 23:25 WBC Hgb MCH RDW Lymph % (Auto) Kings % (Auto) Lymph # (Auto) Kings # (Auto) Baso # (Auto) Seg Neutrophils % Seg Neutrophils # D-Dimer Sodium Chloride Carbon Dioxide BUN Creatinine Glucose POC Glucose 106 H 107 H 124 H Hemoglobin A1c Calcium Phosphorus Magnesium ALT Alkaline Phosphatase NT-Pro-B Natriuret Pep Total Protein Albumin HDL Cholesterol TSH Salicylates Acetaminophen 09/09/21 09/09/21 09/10/21 05:15 23:32 05:46 WBC Hgb MCH RDW Lymph % (Auto) Kings % (Auto) Lymph # (Auto) Kings # (Auto) Baso # (Auto) Seg Neutrophils % Seg Neutrophils # D-Dimer Sodium Chloride Carbon Dioxide BUN Creatinine Glucose POC Glucose 66 L 148 H 106 H Hemoglobin A1c Calcium Phosphorus Magnesium ALT Alkaline Phosphatase NT-Pro-B Natriuret Pep Total Protein Albumin HDL Cholesterol TSH Salicylates Acetaminophen 09/10/21 09/10/21 09/11/21 17:04 21:12 05:32 WBC Hgb MCH RDW Lymph % (Auto) Kings % (Auto) Lymph # (Auto) Kings # (Auto) Baso # (Auto) Seg Neutrophils % Seg Neutrophils # D-Dimer Sodium Chloride Carbon Dioxide BUN Creatinine Glucose POC Glucose 199 H 178 H 111 H Hemoglobin A1c Calcium Phosphorus Magnesium ALT Alkaline Phosphatase NT-Pro-B Natriuret Pep Total Protein Albumin HDL Cholesterol TSH Salicylates Acetaminophen 09/11/21 11:39 WBC Hgb MCH RDW Lymph % (Auto) Kings % (Auto) Lymph # (Auto) Kings # (Auto) Baso # (Auto) Seg Neutrophils % Seg Neutrophils # D-Dimer Sodium Chloride Carbon Dioxide BUN Creatinine Glucose POC Glucose 108 H Hemoglobin A1c Calcium Phosphorus Magnesium ALT Alkaline Phosphatase NT-Pro-B Natriuret Pep Total Protein Albumin HDL Cholesterol TSH Salicylates Acetaminophen Allied health notes reviewed: nursing
[2021-09-11] MEDS: ZOLPIDEM 5 MG TAB PO PRN (21:24)
[2021-09-12] MEDS: METOPROLOL TARTRATE 100 MG TAB PO SCH ×3 (00:05→21:04)
[2021-09-12] MEDS: diphenhydrAMINE 25 MG CAP PO PRN (00:06)
[2021-09-12] MEDS: cloNIDine 0.1 MG TAB PO SCH ×4 (00:07→20:59)
[2021-09-12] MEDS: HEPARIN 5,000 UNIT/1 ML VIAL SUB-Q SCH ×3 (05:49→21:00)
[2021-09-12] MEDS: LEVOTHYROXINE 125 MCG TAB PO SCH (05:50)
[2021-09-12] MEDS: INSULIN LISPRO 100 UNIT/ML SUB-Q SCH ×5 (05:55→23:41)
[2021-09-12] MEDS: hydrALAZINE 100 MG TAB PO SCH ×3 (07:39→20:59)
[2021-09-12] MEDS: MAGIC MOUTHWASH 30ML PO SCH ×3 (07:39→20:59)
[2021-09-12] MEDS: SEVELAMER CARBONATE 800 MG TAB PO SCH ×3 (07:39→16:30)
[2021-09-12] MEDS: INSULIN GLARGINE 100 UNITS/ML SUB-Q SCH ×2 (10:00→21:04)
[2021-09-12] MEDS: HYDROmorphone 0.5 MG/0.5 ML INJ IV PRN ×2 (11:09→20:49)
--- NOTE | 2021-09-12 12:01 | Progress Note ---
Assessment and Plan Possible Sepsis (high grade fevers, tachycardia, acute encephalopathy, tachypnea) DKA Acute Metabolic Encephalopathy h/o CVA with left-sided deficits End Stage renal Disease on HD HTN Hypothyroidism - for dialysis today - continue aspiration precautions; HOB > 40 degrees - discharge planning ongoing concurrently - continue care as below otherwise; - continue keppra as AED - prn Haldol for delirium / agitation - prn supplemental oxygen for target O2 sats > 90% - prn bronchodilators (DG) with pulm hygiene per RT - HD/UF per nephrology prescription for toxin and volume clearance - continue to avoid nephrotoxins, renally dose all medications - continue mobility protocols to prevent pressure ulcers - PT/OT as tolerated - Wound care per RN/WCT - continue accuchecks with glycemic control per SSI for target blood glucose < 180 mg/dL - tobacco abstinence counseled at the bedside - home oxygen evaluation at discharge - GI & VTE prophylaxis - Flu & pneumovax per protocol - Pulmonary out patient follow up for PFTs and optimization of respiratory status - continue other care per attending / other consultants - prn analgesia per pain score COVID SPECIFIC INTERVENTIONS - COVID-19 PCR negative ... re-evaluate in am & prn Subjective Date of service: 09/12/21 Principal diagnosis: Possible Sepsis; DKA; AMS; h/o CVA left hemiparesis; ESRD on Dialysis; HTN Interval history: Patient is seen today for: Possible Sepsis; DKA; Acute Metabolic Encephalopathy; h/o CVA with left-sided deficits; End Stage renal Disease on HD; HTN Seen and examined at bedside; 24hour events reviewed; nursing and respiratory care staff consulted; no adverse overnight events reported to me; resting peacefully in bed; denies N/V/F/C/chest pain or SOB Objective Vital Signs - 12hr 09/12/21 09/12/21 09/12/21 00:03 00:05 05:48 Temperature 98.6 F 98.7 F Pulse Rate 69 69 63 Pulse Rate [ Left Radial] Pulse Rate [ Right Radial] Respiratory 17 17 Rate Blood Pressure 126/64 Blood Pressure 126/61 115/78 [Right] O2 Sat by Pulse 96 100 Oximetry O2 Sat by Pulse Oximetry [ Bilateral] 09/12/21 09/12/21 09/12/21 07:35 07:39 08:00 Temperature 98.2 F Pulse Rate 64 66 66 Pulse Rate [ 66 Left Radial] Pulse Rate [ 66 Right Radial] Respiratory 16 Rate Blood Pressure 122/58 Blood Pressure 122/58 [Right] O2 Sat by Pulse 100 Oximetry O2 Sat by Pulse Oximetry [ Bilateral] 09/12/21 09/12/21 09/12/21 10:15 10:20 10:30 Temperature 97.9 F Pulse Rate 61 60 56 L Pulse Rate [ Left Radial] Pulse Rate [ Right Radial] Respiratory 18 Rate Blood Pressure 145/68 144/70 134/63 Blood Pressure [Right] O2 Sat by Pulse Oximetry O2 Sat by Pulse 100 Oximetry [ Bilateral] 09/12/21 09/12/21 10:45 11:00 Temperature Pulse Rate 54 L 54 L Pulse Rate [ Left Radial] Pulse Rate [ Right Radial] Respiratory Rate Blood Pressure 103/46 101/49 Blood Pressure [Right] O2 Sat by Pulse Oximetry O2 Sat by Pulse Oximetry [ Bilateral] Constitutional: no acute distress, alert, other (middle aged obese female with normal respiratory effort at rest) Eyes: non-icteric ENT: oropharynx moist Neck: supple, no lymphadenopathy, no JVD Effort: normal Ascultation: Bilateral: clear, diminished breath sounds Percussion: Bilateral: not dull Cardiovascular: regular rate and rhythm, other (S1,S2) Gastrointestinal: normoactive bowel sounds, soft, non-tender, non-distended (protuberant), other (obese) Integumentary: normal Extremities: no cyanosis, no edema, pulses normal, no ischemia or petechiae Neurologic: normal mental status, non-focal exam (grossly), pupils equal and round, CN II-XII normal Psychiatric: mood appropriate, affect normal CBC and BMP: 09/08/21 05:31 09/08/21 05:31 ABG, PT/INR, D-dimer: PT/INR, D-dimer PT 14.0 Sec. (12.2-14.9) 08/23/21 22:59 INR 0.97 (0.87-1.13) 08/23/21 22:59 D-Dimer 2695.37 ng/mlDDU (0-234) H 08/17/21 14:40 Abnormal lab findings: Abnormal Labs 08/17/21 08/17/21 08/17/21 00:33 00:33 02:07 WBC Hgb MCH RDW 19.7 H Lymph % (Auto) 10.5 L [place] % (Auto) Lymph # (Auto) 1.1 L [place] # (Auto) Baso # (Auto) Seg Neutrophils % 79.1 H Seg Neutrophils # 8.6 H D-Dimer Sodium 132 L 134 L Chloride 87.8 L 88.4 L Carbon Dioxide 21 L BUN 61 H 61 H Creatinine 10.1 H 10.3 H Glucose 594 H* 533 H* POC Glucose Hemoglobin A1c Calcium Phosphorus Magnesium ALT < 5 L Alkaline Phosphatase 182 H NT-Pro-B Natriuret Pep 55614 H Total Protein Albumin HDL Cholesterol TSH Salicylates Acetaminophen 08/17/21 08/17/21 08/17/21 02:07 02:07 02:07 WBC Hgb MCH RDW Lymph % (Auto) [place] % (Auto) Lymph # (Auto) [place] # (Auto) Baso # (Auto) Seg Neutrophils % Seg Neutrophils # D-Dimer Sodium Chloride Carbon Dioxide BUN Creatinine Glucose POC Glucose Hemoglobin A1c Calcium Phosphorus Magnesium ALT Alkaline Phosphatase NT-Pro-B Natriuret Pep Total Protein Albumin HDL Cholesterol TSH 5.080 H Salicylates < 0.3 L Acetaminophen 5.0 L 08/17/21 08/17/21 08/17/21 04:20 04:20 05:09 WBC Hgb MCH RDW Lymph % (Auto) [place] % (Auto) Lymph # (Auto) [place] # (Auto) Baso # (Auto) Seg Neutrophils % Seg Neutrophils # D-Dimer Sodium 136 L Chloride 90.9 L Carbon Dioxide BUN 61 H Creatinine 10.4 H Glucose 351 H POC Glucose 298 H Hemoglobin A1c Calcium Phosphorus 6.20 H Magnesium ALT Alkaline Phosphatase NT-Pro-B Natriuret Pep Total Protein Albumin HDL Cholesterol TSH Salicylates Acetaminophen 08/17/21 08/17/21 08/17/21 09:58 10:53 13:14 WBC Hgb MCH RDW Lymph % (Auto) [place] % (Auto) Lymph # (Auto) [place] # (Auto) Baso # (Auto) Seg Neutrophils % Seg Neutrophils # D-Dimer Sodium Chloride Carbon Dioxide BUN Creatinine Glucose POC Glucose 139 H 162 H 145 H Hemoglobin A1c Calcium Phosphorus Magnesium ALT Alkaline Phosphatase NT-Pro-B Natriuret Pep Total Protein Albumin HDL Cholesterol TSH Salicylates Acetaminophen 08/17/21 08/17/21 08/17/21 14:40 14:40 14:40 WBC Hgb MCH RDW Lymph % (Auto) [place] % (Auto) Lymph # (Auto) [place] # (Auto) Baso # (Auto) Seg Neutrophils % Seg Neutrophils # D-Dimer 2695.37 H Sodium Chloride 96.7 L Carbon Dioxide BUN 63 H Creatinine 10.7 H Glucose 145 H POC Glucose Hemoglobin A1c Calcium Phosphorus Magnesium ALT Alkaline Phosphatase NT-Pro-B Natriuret Pep Total Protein Albumin HDL Cholesterol 30 L TSH Salicylates Acetaminophen 08/17/21 08/17/21 08/17/21 14:40 16:45 17:47 WBC Hgb MCH RDW Lymph % (Auto) [place] % (Auto) Lymph # (Auto) [place] # (Auto) Baso # (Auto) Seg Neutrophils % Seg Neutrophils # D-Dimer Sodium Chloride 96.2 L Carbon Dioxide BUN 44 H Creatinine 7.2 H Glucose 167 H POC Glucose 136 H 165 H Hemoglobin A1c Calcium Phosphorus Magnesium ALT Alkaline Phosphatase NT-Pro-B Natriuret Pep Total Protein Albumin HDL Cholesterol TSH Salicylates Acetaminophen 08/17/21 08/17/21 08/17/21 18:01 21:01 22:40 WBC Hgb MCH RDW Lymph % (Auto) [place] % (Auto) Lymph # (Auto) [place] # (Auto) Baso # (Auto) Seg Neutrophils % Seg Neutrophils # D-Dimer Sodium Chloride 97.1 L 96.4 L Carbon Dioxide BUN 39 H 40 H Creatinine 8.0 H 8.5 H Glucose 122 H 109 H POC Glucose 172 H Hemoglobin A1c Calcium Phosphorus Magnesium ALT Alkaline Phosphatase NT-Pro-B Natriuret Pep Total Protein Albumin HDL Cholesterol TSH Salicylates Acetaminophen 08/17/21 08/18/21 08/18/21 22:40 02:13 04:56 WBC Hgb MCH 27 L RDW 19.7 H Lymph % (Auto) [place] % (Auto) Lymph # (Auto) [place] # (Auto) Baso # (Auto) Seg Neutrophils % Seg Neutrophils # D-Dimer Sodium Chloride 96.8 L Carbon Dioxide BUN 44 H Creatinine 9.3 H Glucose 170 H POC Glucose 190 H Hemoglobin A1c Calcium Phosphorus 6.70 H Magnesium ALT Alkaline Phosphatase NT-Pro-B Natriuret Pep Total Protein Albumin HDL Cholesterol TSH Salicylates Acetaminophen 08/18/21 08/18/21 08/18/21 04:56 04:56 17:01 WBC Hgb MCH 27 L RDW 19.7 H Lymph % (Auto) [place] % (Auto) 9.7 H Lymph # (Auto) [place] # (Auto) Baso # (Auto) Seg Neutrophils % Seg Neutrophils # D-Dimer Sodium Chloride Carbon Dioxide BUN Creatinine Glucose POC Glucose 228 H Hemoglobin A1c 10.2 H Calcium Phosphorus Magnesium ALT Alkaline Phosphatase NT-Pro-B Natriuret Pep Total Protein Albumin HDL Cholesterol TSH Salicylates Acetaminophen 08/18/21 08/19/21 08/19/21 23:58 04:37 04:37 WBC Hgb MCH 27 L RDW 19.5 H Lymph % (Auto) [place] % (Auto) Lymph # (Auto) [place] # (Auto) Baso # (Auto) Seg Neutrophils % Seg Neutrophils # D-Dimer Sodium Chloride 96.7 L Carbon Dioxide 21 L BUN 57 H Creatinine 10.2 H Glucose 151 H POC Glucose 192 H Hemoglobin A1c Calcium Phosphorus Magnesium ALT Alkaline Phosphatase NT-Pro-B Natriuret Pep Total Protein Albumin HDL Cholesterol TSH Salicylates Acetaminophen 08/19/21 08/19/21 08/20/21 17:46 22:59 04:24 WBC Hgb MCH RDW Lymph % (Auto) [place] % (Auto) Lymph # (Auto) [place] # (Auto) Baso # (Auto) Seg Neutrophils % Seg Neutrophils # D-Dimer Sodium 133 L Chloride 87.9 L Carbon Dioxide 15 L BUN 33 H Creatinine 7.3 H Glucose 365 H POC Glucose 217 H 282 H Hemoglobin A1c Calcium Phosphorus 6.50 H Magnesium ALT Alkaline Phosphatase NT-Pro-B Natriuret Pep Total Protein Albumin HDL Cholesterol TSH Salicylates Acetaminophen 08/20/21 08/20/21 08/20/21 06:07 07:51 15:37 WBC Hgb MCH RDW Lymph % (Auto) [place] % (Auto) Lymph # (Auto) [place] # (Auto) Baso # (Auto) Seg Neutrophils % Seg Neutrophils # D-Dimer Sodium Chloride Carbon Dioxide BUN Creatinine Glucose POC Glucose 398 H 308 H 247 H Hemoglobin A1c Calcium Phosphorus Magnesium ALT Alkaline Phosphatase NT-Pro-B Natriuret Pep Total Protein Albumin HDL Cholesterol TSH Salicylates Acetaminophen 08/20/21 08/21/21 08/21/21 23:22 04:45 05:07 WBC Hgb MCH RDW Lymph % (Auto) [place] % (Auto) Lymph # (Auto) [place] # (Auto) Baso # (Auto) Seg Neutrophils % Seg Neutrophils # D-Dimer Sodium 134 L Chloride 92.9 L Carbon Dioxide BUN 48 H Creatinine 8.0 H Glucose 389 H POC Glucose 316 H 407 H Hemoglobin A1c Calcium 10.6 H Phosphorus Magnesium ALT Alkaline Phosphatase NT-Pro-B Natriuret Pep Total Protein Albumin HDL Cholesterol TSH Salicylates Acetaminophen 08/21/21 08/21/21 08/21/21 11:37 15:52 23:44 WBC Hgb MCH RDW Lymph % (Auto) [place] % (Auto) Lymph # (Auto) [place] # (Auto) Baso # (Auto) Seg Neutrophils % Seg Neutrophils # D-Dimer Sodium Chloride Carbon Dioxide BUN Creatinine Glucose POC Glucose 244 H 325 H 221 H Hemoglobin A1c Calcium Phosphorus Magnesium ALT Alkaline Phosphatase NT-Pro-B Natriuret Pep Total Protein Albumin HDL Cholesterol TSH Salicylates Acetaminophen 08/22/21 08/22/21 08/23/21 06:06 12:27 00:37 WBC Hgb MCH RDW Lymph % (Auto) [place] % (Auto) Lymph # (Auto) [place] # (Auto) Baso # (Auto) Seg Neutrophils % Seg Neutrophils # D-Dimer Sodium Chloride Carbon Dioxide BUN Creatinine Glucose POC Glucose 224 H 247 H 341 H Hemoglobin A1c Calcium Phosphorus Magnesium ALT Alkaline Phosphatase NT-Pro-B Natriuret Pep Total Protein Albumin HDL Cholesterol TSH Salicylates Acetaminophen 08/23/21 08/23/21 08/23/21 04:20 05:37 11:56 WBC Hgb MCH RDW Lymph % (Auto) [place] % (Auto) Lymph # (Auto) [place] # (Auto) Baso # (Auto) Seg Neutrophils % Seg Neutrophils # D-Dimer Sodium Chloride 94.4 L Carbon Dioxide BUN 49 H Creatinine 7.7 H Glucose 201 H POC Glucose 210 H 162 H Hemoglobin A1c Calcium 10.9 H Phosphorus Magnesium ALT Alkaline Phosphatase NT-Pro-B Natriuret Pep Total Protein Albumin HDL Cholesterol TSH Salicylates Acetaminophen 08/23/21 08/23/21 08/23/21 17:45 22:58 22:59 WBC 12.2 H Hgb MCH 26 L RDW 20.3 H Lymph % (Auto) [place] % (Auto) Lymph # (Auto) [place] # (Auto) Baso # (Auto) Seg Neutrophils % Seg Neutrophils # D-Dimer Sodium Chloride Carbon Dioxide BUN Creatinine Glucose POC Glucose 211 H 218 H Hemoglobin A1c Calcium Phosphorus Magnesium ALT Alkaline Phosphatase NT-Pro-B Natriuret Pep Total Protein Albumin HDL Cholesterol TSH Salicylates Acetaminophen 08/23/21 08/24/21 08/24/21 22:59 04:23 04:23 WBC 15.4 H Hgb MCH 27 L RDW 19.8 H Lymph % (Auto) [place] % (Auto) 13.0 H Lymph # (Auto) [place] # (Auto) 2.0 H Baso # (Auto) 0.2 H Seg Neutrophils % Seg Neutrophils # 9.8 H D-Dimer Sodium 136 L Chloride 93.0 L Carbon Dioxide BUN 73 H Creatinine 8.7 H 9.2 H Glucose 145 H POC Glucose Hemoglobin A1c Calcium 10.7 H Phosphorus 6.30 H Magnesium 2.70 H ALT 6 L Alkaline Phosphatase 157 H NT-Pro-B Natriuret Pep Total Protein Albumin 3.7 L HDL Cholesterol TSH Salicylates Acetaminophen 08/24/21 08/24/21 08/24/21 05:09 11:20 18:28 WBC Hgb MCH RDW Lymph % (Auto) [place] % (Auto) Lymph # (Auto) [place] # (Auto) Baso # (Auto) Seg Neutrophils % Seg Neutrophils # D-Dimer Sodium Chloride Carbon Dioxide BUN Creatinine Glucose POC Glucose 155 H 110 H 182 H Hemoglobin A1c Calcium Phosphorus Magnesium ALT Alkaline Phosphatase NT-Pro-B Natriuret Pep Total Protein Albumin HDL Cholesterol TSH Salicylates Acetaminophen 08/25/21 08/25/21 08/25/21 00:15 04:44 11:28 WBC 11.3 H Hgb MCH 27 L RDW 20.4 H Lymph % (Auto) [place] % (Auto) Lymph # (Auto) [place] # (Auto) Baso # (Auto) Seg Neutrophils % Seg Neutrophils # D-Dimer Sodium Chloride Carbon Dioxide BUN Creatinine Glucose POC Glucose 247 H 189 H Hemoglobin A1c Calcium Phosphorus Magnesium ALT Alkaline Phosphatase NT-Pro-B Natriuret Pep Total Protein Albumin HDL Cholesterol TSH Salicylates Acetaminophen 08/25/21 08/25/21 08/26/21 16:42 23:29 05:22 WBC Hgb MCH RDW Lymph % (Auto) [place] % (Auto) Lymph # (Auto) [place] # (Auto) Baso # (Auto) Seg Neutrophils % Seg Neutrophils # D-Dimer Sodium Chloride Carbon Dioxide BUN Creatinine 10.0 H Glucose POC Glucose 169 H 213 H Hemoglobin A1c Calcium Phosphorus Magnesium ALT Alkaline Phosphatase NT-Pro-B Natriuret Pep Total Protein Albumin HDL Cholesterol TSH Salicylates Acetaminophen 08/26/21 08/26/21 08/26/21 06:12 11:47 23:33 WBC Hgb MCH RDW Lymph % (Auto) [place] % (Auto) Lymph # (Auto) [place] # (Auto) Baso # (Auto) Seg Neutrophils % Seg Neutrophils # D-Dimer Sodium Chloride Carbon Dioxide BUN Creatinine Glucose POC Glucose 191 H 197 H 197 H Hemoglobin A1c Calcium Phosphorus Magnesium ALT Alkaline Phosphatase NT-Pro-B Natriuret Pep Total Protein Albumin HDL Cholesterol TSH Salicylates Acetaminophen 08/27/21 08/27/21 08/27/21 06:02 06:02 06:17 WBC Hgb MCH 27 L RDW 20.1 H Lymph % (Auto) [place] % (Auto) 14.2 H Lymph # (Auto) [place] # (Auto) 1.4 H Baso # (Auto) Seg Neutrophils % Seg Neutrophils # D-Dimer Sodium 134 L Chloride 93.8 L Carbon Dioxide BUN 56 H Creatinine 6.4 H Glucose 253 H POC Glucose 250 H Hemoglobin A1c Calcium Phosphorus 6.00 H Magnesium 2.50 H ALT < 5 L Alkaline Phosphatase 135 H NT-Pro-B Natriuret Pep Total Protein Albumin 3.6 L HDL Cholesterol TSH Salicylates Acetaminophen 08/27/21 08/27/21 08/27/21 11:21 16:05 23:13 WBC Hgb MCH RDW Lymph % (Auto) [place] % (Auto) Lymph # (Auto) [place] # (Auto) Baso # (Auto) Seg Neutrophils % Seg Neutrophils # D-Dimer Sodium Chloride Carbon Dioxide BUN Creatinine Glucose POC Glucose 287 H 321 H 286 H Hemoglobin A1c Calcium Phosphorus Magnesium ALT Alkaline Phosphatase NT-Pro-B Natriuret Pep Total Protein Albumin HDL Cholesterol TSH Salicylates Acetaminophen 08/28/21 08/28/21 08/28/21 05:11 05:29 11:30 WBC Hgb MCH RDW Lymph % (Auto) [place] % (Auto) Lymph # (Auto) [place] # (Auto) Baso # (Auto) Seg Neutrophils % Seg Neutrophils # D-Dimer Sodium 134 L Chloride 91.8 L Carbon Dioxide BUN 79 H Creatinine 8.2 H Glucose 230 H POC Glucose 225 H 190 H Hemoglobin A1c Calcium 10.8 H Phosphorus Magnesium ALT Alkaline Phosphatase NT-Pro-B Natriuret Pep Total Protein Albumin HDL Cholesterol TSH Salicylates Acetaminophen 0608/29/21 08/29/21 15:53 00:04 04:29 WBC Hgb MCH 27 L RDW 20.6 H Lymph % (Auto) [place] % (Auto) Lymph # (Auto) [place] # (Auto) Baso # (Auto) Seg Neutrophils % Seg Neutrophils # D-Dimer Sodium Chloride Carbon Dioxide BUN Creatinine Glucose POC Glucose 235 H 223 H Hemoglobin A1c Calcium Phosphorus Magnesium ALT Alkaline Phosphatase NT-Pro-B Natriuret Pep Total Protein Albumin HDL Cholesterol TSH Salicylates Acetaminophen 08/29/21 08/29/21 08/29/21 04:29 05:37 16:14 WBC Hgb MCH RDW Lymph % (Auto) [place] % (Auto) Lymph # (Auto) [place] # (Auto) Baso # (Auto) Seg Neutrophils % Seg Neutrophils # D-Dimer Sodium Chloride Carbon Dioxide BUN Creatinine 9.8 H Glucose POC Glucose 174 H 200 H Hemoglobin A1c Calcium Phosphorus Magnesium ALT Alkaline Phosphatase NT-Pro-B Natriuret Pep Total Protein Albumin HDL Cholesterol TSH Salicylates Acetaminophen 08/30/21 08/30/21 08/30/21 00:10 05:12 05:12 WBC Hgb MCH 27 L RDW 20.2 H Lymph % (Auto) [place] % (Auto) 12.7 H Lymph # (Auto) [place] # (Auto) 1.4 H Baso # (Auto) 0.2 H Seg Neutrophils % Seg Neutrophils # D-Dimer Sodium Chloride 97.5 L Carbon Dioxide BUN 58 H Creatinine 6.9 H Glucose 112 H POC Glucose 111 H Hemoglobin A1c Calcium 10.8 H Phosphorus 6.00 H Magnesium 2.80 H ALT Alkaline Phosphatase 147 H NT-Pro-B Natriuret Pep Total Protein Albumin HDL Cholesterol TSH Salicylates Acetaminophen 08/30/21 08/31/21 08/31/21 16:40 00:27 04:30 WBC Hgb MCH RDW Lymph % (Auto) [place] % (Auto) Lymph # (Auto) [place] # (Auto) Baso # (Auto) Seg Neutrophils % Seg Neutrophils # D-Dimer Sodium Chloride Carbon Dioxide BUN Creatinine Glucose POC Glucose 224 H 200 H 125 H Hemoglobin A1c Calcium Phosphorus Magnesium ALT Alkaline Phosphatase NT-Pro-B Natriuret Pep Total Protein Albumin HDL Cholesterol TSH Salicylates Acetaminophen 09/02/21 09/02/21 09/03/21 06:04 18:25 00:55 WBC Hgb MCH RDW Lymph % (Auto) [place] % (Auto) Lymph # (Auto) [place] # (Auto) Baso # (Auto) Seg Neutrophils % Seg Neutrophils # D-Dimer Sodium Chloride Carbon Dioxide BUN Creatinine Glucose POC Glucose 68 L 134 H 110 H Hemoglobin A1c Calcium Phosphorus Magnesium ALT Alkaline Phosphatase NT-Pro-B Natriuret Pep Total Protein Albumin HDL Cholesterol TSH Salicylates Acetaminophen 09/03/21 09/03/21 09/04/21 05:53 16:10 00:11 WBC Hgb MCH RDW Lymph % (Auto) [place] % (Auto) Lymph # (Auto) [place] # (Auto) Baso # (Auto) Seg Neutrophils % Seg Neutrophils # D-Dimer Sodium Chloride Carbon Dioxide BUN Creatinine Glucose POC Glucose 64 L 60 L 69 L Hemoglobin A1c Calcium Phosphorus Magnesium ALT Alkaline Phosphatase NT-Pro-B Natriuret Pep Total Protein Albumin HDL Cholesterol TSH Salicylates Acetaminophen 09/04/21 09/04/21 09/04/21 06:01 07:29 10:04 WBC Hgb MCH RDW Lymph % (Auto) [place] % (Auto) Lymph # (Auto) [place] # (Auto) Baso # (Auto) Seg Neutrophils % Seg Neutrophils # D-Dimer Sodium Chloride 96.1 L Carbon Dioxide BUN 48 H Creatinine 7.8 H Glucose 102 H POC Glucose 116 H 119 H Hemoglobin A1c Calcium 10.4 H Phosphorus Magnesium ALT Alkaline Phosphatase NT-Pro-B Natriuret Pep Total Protein Albumin HDL Cholesterol TSH Salicylates Acetaminophen 09/04/21 09/04/21 09/05/21 10:59 16:24 00:36 WBC Hgb MCH RDW Lymph % (Auto) [place] % (Auto) Lymph # (Auto) [place] # (Auto) Baso # (Auto) Seg Neutrophils % Seg Neutrophils # D-Dimer Sodium Chloride Carbon Dioxide BUN Creatinine Glucose POC Glucose 137 H 149 H 139 H Hemoglobin A1c Calcium Phosphorus Magnesium ALT Alkaline Phosphatase NT-Pro-B Natriuret Pep Total Protein Albumin HDL Cholesterol TSH Salicylates Acetaminophen 09/05/21 09/05/21 09/05/21 04:57 06:43 16:22 WBC 11.6 H Hgb 9.9 L MCH 27 L RDW 20.4 H Lymph % (Auto) [place] % (Auto) Lymph # (Auto) [place] # (Auto) Baso # (Auto) Seg Neutrophils % Seg Neutrophils # D-Dimer Sodium Chloride Carbon Dioxide BUN Creatinine Glucose POC Glucose 149 H 188 H Hemoglobin A1c Calcium Phosphorus Magnesium ALT Alkaline Phosphatase NT-Pro-B Natriuret Pep Total Protein Albumin HDL Cholesterol TSH Salicylates Acetaminophen 09/05/21 09/06/21 09/06/21 23:42 05:39 05:39 WBC Hgb MCH 27 L RDW 20.2 H Lymph % (Auto) [place] % (Auto) 9.2 H Lymph # (Auto) [place] # (Auto) 1.0 H Baso # (Auto) Seg Neutrophils % Seg Neutrophils # D-Dimer Sodium Chloride 94.2 L Carbon Dioxide BUN 35 H Creatinine 6.3 H Glucose 167 H POC Glucose 223 H Hemoglobin A1c Calcium 10.8 H Phosphorus 5.30 H Magnesium 2.50 H ALT Alkaline Phosphatase 154 H NT-Pro-B Natriuret Pep Total Protein 8.4 H Albumin 3.8 L HDL Cholesterol TSH Salicylates Acetaminophen 09/06/21 09/06/21 09/06/21 07:02 11:50 16:46 WBC Hgb MCH RDW Lymph % (Auto) [place] % (Auto) Lymph # (Auto) [place] # (Auto) Baso # (Auto) Seg Neutrophils % Seg Neutrophils # D-Dimer Sodium Chloride Carbon Dioxide BUN Creatinine Glucose POC Glucose 169 H 158 H 110 H Hemoglobin A1c Calcium Phosphorus Magnesium ALT Alkaline Phosphatase NT-Pro-B Natriuret Pep Total Protein Albumin HDL Cholesterol TSH Salicylates Acetaminophen 09/07/21 09/07/21 09/07/21 00:29 12:57 16:57 WBC Hgb MCH RDW Lymph % (Auto) [place] % (Auto) Lymph # (Auto) [place] # (Auto) Baso # (Auto) Seg Neutrophils % Seg Neutrophils # D-Dimer Sodium Chloride Carbon Dioxide BUN Creatinine Glucose POC Glucose 148 H 146 H 157 H Hemoglobin A1c Calcium Phosphorus Magnesium ALT Alkaline Phosphatase NT-Pro-B Natriuret Pep Total Protein Albumin HDL Cholesterol TSH Salicylates Acetaminophen 09/08/21 09/08/21 09/08/21 05:31 05:31 10:11 WBC Hgb MCH RDW 20.3 H Lymph % (Auto) [place] % (Auto) 9.3 H Lymph # (Auto) [place] # (Auto) Baso # (Auto) Seg Neutrophils % Seg Neutrophils # D-Dimer Sodium Chloride 95.9 L Carbon Dioxide BUN 36 H Creatinine 6.5 H Glucose POC Glucose 106 H Hemoglobin A1c Calcium 10.8 H Phosphorus 5.30 H Magnesium 2.50 H ALT 6 L Alkaline Phosphatase NT-Pro-B Natriuret Pep Total Protein Albumin 3.6 L HDL Cholesterol TSH Salicylates Acetaminophen 09/08/21 09/08/21 09/08/21 11:24 17:15 23:25 WBC Hgb MCH RDW Lymph % (Auto) [place] % (Auto) Lymph # (Auto) [place] # (Auto) Baso # (Auto) Seg Neutrophils % Seg Neutrophils # D-Dimer Sodium Chloride Carbon Dioxide BUN Creatinine Glucose POC Glucose 106 H 107 H 124 H Hemoglobin A1c Calcium Phosphorus Magnesium ALT Alkaline Phosphatase NT-Pro-B Natriuret Pep Total Protein Albumin HDL Cholesterol TSH Salicylates Acetaminophen 09/09/21 09/09/21 09/10/21 05:15 23:32 05:46 WBC Hgb MCH RDW Lymph % (Auto) [place] % (Auto) Lymph # (Auto) [place] # (Auto) Baso # (Auto) Seg Neutrophils % Seg Neutrophils # D-Dimer Sodium Chloride Carbon Dioxide BUN Creatinine Glucose POC Glucose 66 L 148 H 106 H Hemoglobin A1c Calcium Phosphorus Magnesium ALT Alkaline Phosphatase NT-Pro-B Natriuret Pep Total Protein Albumin HDL Cholesterol TSH Salicylates Acetaminophen 09/10/21 09/10/21 09/11/21 17:04 21:12 05:32 WBC Hgb MCH RDW Lymph % (Auto) [place] % (Auto) Lymph # (Auto) [place] # (Auto) Baso # (Auto) Seg Neutrophils % Seg Neutrophils # D-Dimer Sodium Chloride Carbon Dioxide BUN Creatinine Glucose POC Glucose 199 H 178 H 111 H Hemoglobin A1c Calcium Phosphorus Magnesium ALT Alkaline Phosphatase NT-Pro-B Natriuret Pep Total Protein Albumin HDL Cholesterol TSH Salicylates Acetaminophen 09/11/21 09/11/21 09/11/21 11:39 16:37 22:01 WBC Hgb MCH RDW Lymph % (Auto) [place] % (Auto) Lymph # (Auto) [place] # (Auto) Baso # (Auto) Seg Neutrophils % Seg Neutrophils # D-Dimer Sodium Chloride Carbon Dioxide BUN Creatinine Glucose POC Glucose 108 H 174 H 131 H Hemoglobin A1c Calcium Phosphorus Magnesium ALT Alkaline Phosphatase NT-Pro-B Natriuret Pep Total Protein Albumin HDL Cholesterol TSH Salicylates Acetaminophen 09/12/21 06:01 WBC Hgb MCH RDW Lymph % (Auto) [place] % (Auto) Lymph # (Auto) [place] # (Auto) Baso # (Auto) Seg Neutrophils % Seg Neutrophils # D-Dimer Sodium Chloride Carbon Dioxide BUN Creatinine Glucose POC Glucose 106 H Hemoglobin A1c Calcium Phosphorus Magnesium ALT Alkaline Phosphatase NT-Pro-B Natriuret Pep Total Protein Albumin HDL Cholesterol TSH Salicylates Acetaminophen Allied health notes reviewed: nursing
--- NOTE | 2021-09-12 12:14 | Progress Note ---
Assessment and Plan Assessment and plan: #Right upper extremity AV graft thrombosis #End Stage Renal Disease requiring hemodialysis -s/p AVF declotting 08/26 via IR/Vascular surgery -s/p vascular surgery/ thrombectomy of right arm AV loop graft. -temporary vasc cath removed 08/26 -continue HD per Nephro -avoid nephrotoxic medications; Renally dose medications #DKA (Diabetic Ketoacidosis)-resolved #Type II diabetes, insulin dependent -s/p insulin gtt -Patient with hypoglycemia secondary to reduced oral intake; continue tube feeds -Hgb A1C 10.2% -continue lantus 22U BID, continue SSI -goal glucose 140-180 while inpatient; currently controlled #Sepsisruled out -patient afebrile, WBC normalizing -Blood cultures with NGTD x 5days -s/p IV abx, none needed due to no infectious process found -ID consulted, signed off #Acute Metabolic Encephalopathy-resolved #H/o CVA (cerebral infarction) with left-sided deficits -Multifactorial, DKA vs azotemia vs infectious process -Awake and tracking and following commands this morning -CT head and MRI brain noted with no acute abnormality -Neurology consulted, appreciated recommendations -c/f seizure, continue Keppra -PRN Haldol for agitation -Fall and safety precaution -Aspiration precaution -Frequent reorientation -Avoid benzodiazepine to reduce the possibility of delirium -Maintenance of sleep-wake cycle -PT/OT/Speech ordered -Psychiatry consulted: Patient Celexa increased #Hypertension -continue home BP medications -PRN Hydralazine and Labetalol for SBP greater than 160 #Elevated D-Dimer #H/o DVT -BLE doppler showed no evidence for acute DVT in either lower extremity. 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 -Per patient's mother, patient has been off coumadin for a couple of years -Continue Heparin SubQ -low suspicion for PE, will order V/Q scan if return of fever, dyspnea -Patient might benefit from PO AC at discharge, wild defer to PCP #Hypothyroidism -continue synthroid #Dysphagia-resolved -Patient failed initial speech eval due to mental status -Discontinue NG tube and tube feeds as patient successfully passed swallow evaluation was necessary. Gastroenterology consulted for PEG tube placement; appreciate recs. GI also agrees with declining PEG tube placement. #GI/ DVT Prophylaxis -PPI- Pepcid -heparin SubQ -SCDs to bilateral lower extremities while in bed #Discharge planning - Patient is pending authorization at a rehab facility. - Case management has been made aware. Updates: Had a detailed discussion with the patient today (09/10/2021) where she endorsed being fine with going home with physical therapy resources to visit her during the week. The patient's mother (Angely Roman) was called, and the possibility of the patient discharging home was brought up with her. The patient's mother endorsed her desire to call [employer] on 09/12/2021 to also assist with her daughter getting approved for SNF. - Disposition Plan: Pending placement Total Time Spent with Patient (Minutes): 30 minutes History Interval history: No acute events over night. The patient denies fevers, chills, nausea, vomiting, abdominal pain, chest pain/pressure, shortness of breath, urinary symptoms, weakness, or confusion. Hospitalist Physical - Constitutional Vitals: Temp Pulse Resp BP Pulse Ox 97.9 F 54 L 18 101/49 100 09/12/21 10:15 09/12/21 11:00 09/12/21 10:15 09/12/21 11:00 09/12/21 10:15 General appearance: Present: no acute distress, well-nourished - EENT Eyes: Present: PERRL, EOM intact ENT: hearing intact, clear oral mucosa, dentition normal - Neck Neck: Present: supple, normal ROM - Respiratory Respiratory effort: normal Respiratory: bilateral: CTA - Cardiovascular Rhythm: regular Heart Sounds: Present: S1 & S2 - Extremities Extremities: no ischemia, pulses intact, pulses symmetrical, No edema, normal temperature, normal color Peripheral Pulses: within normal limits - Abdominal General gastrointestinal: soft, non-tender, non-distended, normal bowel sounds - Integumentary Integumentary: Present: clear, warm, dry - Psychiatric Psychiatric: appropriate mood/affect, intact judgment & insight, memory intact, cooperative - Neurologic Neurologic: CNII-XII intact, other (Generalized weakness) - Allied Health Allied health notes reviewed: nursing Results - Labs CBC & Chem 7: 09/08/21 05:31 09/08/21 05:31 Labs: Laboratory Last Values WBC 8.3 K/mm3 (4.5-11.0) 09/08/21 05:31 RBC 4.03 M/mm3 (3.65-5.03) 09/08/21 05:31 Hgb 11.1 gm/dl (10.1-14.3) 09/08/21 05:31 Hct 34.6 % (30.3-42.9) 09/08/21 05:31 MCV 86 fl (79-97) 09/08/21 05:31 MCH 28 pg (28-32) 09/08/21 05:31 MCHC 32 % (30-34) 09/08/21 05:31 RDW 20.3 % (13.2-15.2) H 09/08/21 05:31 Plt Count 164 K/mm3 (140-440) 09/08/21 05:31 Lymph % (Auto) 28.6 % (13.4-35.0) 09/08/21 05:31 [place] % (Auto) 9.3 % (0.0-7.3) H 09/08/21 05:31 Eos % (Auto) 3.4 % (0.0-4.3) 09/08/21 05:31 Baso % (Auto) 1.0 % (0.0-1.8) 09/08/21 05:31 Lymph # (Auto) 2.4 K/mm3 (1.2-5.4) 09/08/21 05:31 [place] # (Auto) 0.8 K/mm3 (0.0-0.8) 09/08/21 05:31 Eos # (Auto) 0.3 K/mm3 (0.0-0.4) 09/08/21 05:31 Baso # (Auto) 0.1 K/mm3 (0.0-0.1) 09/08/21 05:31 Seg Neutrophils % 57.7 % (40.0-70.0) 09/08/21 05:31 Seg Neutrophils # 4.8 K/mm3 (1.8-7.7) 09/08/21 05:31 PT 14.0 Sec. (12.2-14.9) 08/23/21 22:59 INR 0.97 (0.87-1.13) 08/23/21 22:59 APTT 27.9 Sec. (24.2-36.6) 08/23/21 22:59 D-Dimer 2695.37 ng/mlDDU (0-234) H 08/17/21 14:40 Sodium 139 mmol/L (137-145) 09/08/21 05:31 Potassium 3.9 mmol/L (3.6-5.0) 09/08/21 05:31 Chloride 95.9 mmol/L (98-107) L 09/08/21 05:31 Carbon Dioxide 29 mmol/L (22-30) 09/08/21 05:31 Anion Gap 18 mmol/L 09/08/21 05:31 BUN 36 mg/dL (7-17) H 09/08/21 05:31 Creatinine 6.5 mg/dL (0.6-1.2) H 09/08/21 05:31 Estimated GFR 8 ml/min 09/08/21 05:31 BUN/Creatinine Ratio 6 % 09/08/21 05:31 Glucose 78 mg/dL (65-100) 09/08/21 05:31 POC Glucose 106 mg/dL (70-105) H 09/12/21 06:01 Hemoglobin A1c 10.2 % (4-6) H 08/18/21 04:56 Lactic Acid 1.70 mmol/L (0.7-2.0) 08/17/21 02:07 Calcium 10.8 mg/dL (8.4-10.2) H 09/08/21 05:31 Phosphorus 5.30 mg/dL (2.5-4.5) H 09/08/21 05:31 Magnesium 2.50 mg/dL (1.7-2.3) H 09/08/21 05:31 Total Bilirubin 0.30 mg/dL (0.1-1.2) 09/08/21 05:31 AST 13 units/L (5-40) 09/08/21 05:31 ALT 6 units/L (7-56) L 09/08/21 05:31 Alkaline Phosphatase 122 units/L (35-129) 09/08/21 05:31 NT-Pro-B Natriuret Pep 56339 pg/mL (0-450) H 08/17/21 02:07 Total Protein 7.5 g/dL (6.3-8.2) 09/08/21 05:31 Albumin 3.6 g/dL (3.9-5) L 09/08/21 05:31 Albumin/Globulin Ratio 0.9 % 09/08/21 05:31 Triglycerides 128 mg/dL (2-149) 08/17/21 14:40 Cholesterol 128 mg/dL (50-199) 08/17/21 14:40 LDL Cholesterol Direct 69 mg/dL (50-130) 08/17/21 14:40 HDL Cholesterol 30 mg/dL (40-59) L 08/17/21 14:40 Cholesterol/HDL Ratio 4.26 % 08/17/21 14:40 TSH 5.080 mlU/mL (0.270-4.200) H 08/17/21 02:07 Salicylates < 0.3 mg/dL (2.8-20.0) L 08/17/21 02:07 Acetaminophen 5.0 ug/mL (10.0-30.0) L 08/17/21 02:07 Plasma/Serum Alcohol < 0.01 % (0-0.07) 08/17/21 02:07 Coronavirus (PCR) Negative (Negative) 09/11/21 11:05 SARS-CoV-2 (PCR) Negative (Negative) 08/17/21 09:12 Hepatitis A IgM Ab Non-reactive (NonReactive) 08/17/21 14:40 Hep Bs Antigen Non-reactive (Negative) 08/17/21 14:40 Hep B Core IgM Ab Non-reactive (NonReactive) 08/17/21 14:40 Hepatitis C Antibody Non-reactive (NonReactive) 08/17/21 14:40 Blood Type O POSITIVE 08/17/21 17:43 Antibody Screen Negative 08/17/21 17:43 Tomas/IV: Voiding Method Diaper Active Medications - Current Medications Current Medications: Generic Name Dose Route Start Last Admin Trade Name Freq PRN Reason Stop Dose Admin Acetaminophen 650 mg 08/17/21 07:50 08/30/21 20:25 Acetaminophen 325 Mg Tab PO 650 mg Q6H PRN Administration Pain, Mild (1-3) Acetaminophen 650 mg 08/17/21 08:17 08/17/21 14:49 Acetaminophen 650 Mg Rect Supp NE 650 mg Q4H PRN Administration Pain, Mild (1-3) Albuterol 2.5 mg 08/29/21 20:00 Albuterol 2.5 Mg/3 Ml Nebu IH Q4HRT PRN Shortness Of Breath Amlodipine Besylate 10 mg 08/22/21 11:00 09/11/21 10:17 Amlodipine 10 Mg Tab PO 10 mg QDAY HAM Administration Lipase/Protease/Amylase 1 each 08/26/21 16:00 Lipase 10,500/Protease 25,000/Amylase 43,750 (Units) Dr Lopez FEEDTUBE PRN PRN For Clogged Feeding Tube Aspirin 325 mg 08/22/21 10:00 09/11/21 10:17 Aspirin 325 Mg Tab FEEDTUBE 325 mg QDAY HAM Administration Atorvastatin Calcium 40 mg 08/29/21 22:00 09/11/21 21:25 Atorvastatin 40 Mg Tab PO 40 mg QHS HAM Administration Citalopram Hydrobromide 40 mg 09/04/21 10:00 09/11/21 10:17 Citalopram 20 Mg Tab PO 40 mg QDAY HAM Administration Clonidine HCl 0.1 mg 08/29/21 20:00 09/12/21 07:39 Clonidine 0.1 Mg Tab PO 0.1 mg TID HAM Administration Dextrose 50 ml 08/17/21 23:37 Dextrose 50% In Water (25gm) 50 Ml Syringe IV Q30MIN PRN Hypoglycemia Protocol Diphenhydramine HCl 25 mg 09/07/21 09:30 09/12/21 00:06 Diphenhydramine 25 Mg Cap PO 25 mg Q8H PRN Administration Itching Famotidine 20 mg 08/20/21 10:00 09/11/21 10:17 Famotidine 20 Mg Tab FEEDTUBE 20 mg QDAY HAM Administration Haloperidol Lactate 5 mg 08/19/21 12:00 09/01/21 11:41 Haloperidol Lactate 5 Mg/1 Ml Inj IV 5 mg Q6H PRN Administration Agitation Heparin Sodium (Porcine) 5,000 unit 08/17/21 06:00 09/12/21 05:49 Heparin 5,000 Unit/1 Ml Vial SUB-Q 5,000 unit Q8HR HAM Administration Heparin Sodium (Porcine) 3,000 unit 08/17/21 07:41 08/31/21 10:38 Heparin 10,000 Units/10 Ml Vial IV 3,000 unit KATI PRN Administration hemodialysis Hydralazine HCl 100 mg 08/17/21 09:00 09/12/21 07:39 Hydralazine 100 Mg Tab PO 100 mg TID HAM Administration Hydralazine HCl 10 mg 08/17/21 07:56 08/25/21 05:19 Hydralazine 20 Mg/1 Ml Inj IV 10 mg Q4HR PRN Administration Hypertension Hydromorphone HCl 0.25 mg 08/17/21 07:50 09/12/21 11:09 Hydromorphone 0.5 Mg/0.5 Ml Inj IV 0.25 mg Q4H PRN Administration Pain, Moderate (4-6) Hydroxyzine Pamoate 25 mg 09/03/21 14:50 Hydroxyzine Pamoate 25 Mg Cap PO Q6H PRN Anxiety Sodium Chloride 100 mls @ 999 mls/hr 09/11/21 12:37 Nacl 0.9% IV KATI PRN Hypotension Insulin Glargine 15 units 09/09/21 10:00 09/11/21 22:28 Insulin Glargine 100 Units/Ml SUB-Q Not Given BID [facility] Insulin Human Lispro 0 unit 08/18/21 00:00 09/12/21 07:33 Insulin Lispro 100 Unit/Ml SUB-Q Not Given Q6HR [facility] Protocol Levetiracetam 500 mg 08/20/21 10:00 09/11/21 10:17 Levetiracetam 500 Mg Tab PO 500 mg DAILY [facility] Administration Levothyroxine Sodium 125 mcg 08/22/21 06:00 09/12/21 05:50 Levothyroxine 125 Mcg Tab PO 125 mcg QAM@0600 HAM Administration Lidocaine HCl 15 ml 09/05/21 14:00 09/12/21 07:39 Magic Mouthwash 30ml PO 15 ml TID HAM Administration Losartan Potassium 50 mg 08/17/21 10:00 09/11/21 10:06 Losartan 50 Mg Tab PO 50 mg QDAY HAM Administration Magnesium Hydroxide 30 ml 08/17/21 04:09 08/23/21 23:56 Magnesium Hydroxide (Mom) Oral Liqd Udc PO 30 ml Q4H PRN Administration Constipation Metoprolol Tartrate 100 mg 08/20/21 11:00 09/12/21 00:05 Metoprolol Tartrate 100 Mg Tab PO 100 mg BID HAM Administration Ondansetron HCl 4 mg 08/17/21 04:09 09/10/21 22:01 Ondansetron 4 Mg/2 Ml Inj IV 4 mg Q8H PRN Administration Nausea And Vomiting Phenol 1 spray 09/04/21 09:54 09/06/21 10:13 Phenol 1.4% 177 Ml Bottle MM 1 spray PRN PRN Administration Sore Throat Promethazine HCl 25 mg 09/07/21 20:33 09/07/21 21:08 Promethazine 25 Mg Rect Supp NE 25 mg Q6H PRN Administration Nausea And Vomiting Sevelamer Carbonate 2,400 mg 09/06/21 11:30 09/12/21 07:39 Sevelamer Carbonate 800 Mg Tab PO 2,400 mg AC HAM Administration Simple Syrup 15 ml 08/26/21 16:00 09/04/21 00:20 Simple Syrup 15 Ml FEEDTUBE 15 ml PRN PRN Administration Hypoglycemia Simple Syrup 30 ml 08/26/21 16:00 Simple Syrup 15 Ml FEEDTUBE PRN PRN Hypoglycemia Sodium Bicarbonate 325 mg 08/26/21 16:00 Sodium Bicarbonate 325 Mg Tab FEEDTUBE PRN PRN For Clogged Feeding Tube Sodium Chloride 10 ml 08/17/21 10:00 09/11/21 21:26 Sodium Chloride 0.9% 10 Ml Flush Syringe IV 10 ml BID HAM Administration Sodium Chloride 10 ml 08/17/21 04:09 09/10/21 14:29 Sodium Chloride 0.9% 10 Ml Flush Syringe IV 10 ml PRN PRN Administration LINE FLUSH Zolpidem Tartrate 5 mg 09/05/21 22:00 09/11/21 21:24 Zolpidem 5 Mg Tab PO 5 mg QHS PRN Administration Sleep Nutrition/Malnutrition Assess - Dietary Evaluation Nutrition/Malnutrition Findings: Nutrition Notes Start: 08/17/21 12:51 Freq: Status: Active Protocol: Document 09/05/21 13:01 GABRIEL (Rec: 09/05/21 13:04 GABRIEL [email or web address]) Nutrition Notes Initial or Follow up Reassessment Current Diagnosis CKD (stage V CKD),Diabetes, Hypertension,Stroke Other Pertinent Diagnosis ESRD+HD, R-UE Thrombectomy & AVF, Metabolic Encephalopathy. Current Diet TF-Nepro @ 40 ml/hr (since L 09/03). Labs/Tests 09/04: Cl 96.1, BUN 48, Crea 7 .8, Glu 102, Ca 10.4. Pertinent Medications 06/13: Levothyroxine, others nutritionally unremarkable. Height 5 ft 8 in Weight 77.8 kg [place] Body Weight (kg) 63.63 BMI 26.0 Weight change and time frame 0.5 Kg bodyt weight gain in 1 week reported. Weight Status Overweight Subjective/Other Information RD consult for routine F/U on Tf tolerance/continuation assessment. TF was discontinued and resumed during the week after [employer] assessment and recommendation, and continues as initially prescribed, and well tolerated, according to RN notes. [employer] RECRUITER note on 09/02/21 11:27: Patient demonstrates diminished cognitive function and is holding food with noted spillage from the oral cavity . Much effort with digital manipulatIon of the larynx was conducted to attain initiation of the swallow. Once the swallow was initiated which was over five to seven minutes, she demonstrated good laryngeal excursion with no evidence of aspiration. Patient is currently not appropriate for the mechanical soft diet which was recommended the previous day, due to a change in her current mentation. The anatomical structures are intact; however , she is at risk for aspiration,malnutrition and dehydration secondary to prolonged bolus holding. Recommend an alternative method of nutrition to support her nutritional needs as her mentation waxes and wanes. No further recommendations. Pr is on Room Air, O2 saturation @ 97%, according to Physical Assessment History notes. Pt has missing teeth, according to Physical Assessment History notes. Pt will need to demonstarte adquate swallowing or will need PEG tube before discharge , according to Progress notes. Percent of energy/protein needs met: Prescribed TF-Nepro w/ CARBSTEADY @ 40 ml/hr provides for energy/protein needs (1, 728 Kcal/78 g) during LOS, 97% Kcal; 83% AA. Burn Absent Trauma Absent GI Symptoms None Difficulty In Swallowing Food Allergy No Skin Integrity/Comment Assessment WNL. Current % PO Other Minimum of two criteria No Fluid Accumulation N/A Reduced Enrollment Representative Strength N/A (non-severe) Protein-Calorie Malnutrition N\A #1 Nutrition Diagnosis Inadequate oral intake Diagnosis Progress(for reassessment Continues documentation) Is patient on ventilator? No Is Patient Ambulatory and/or Out of Bed No REE-([facility]-confined to bed) [phone] Calculation Used for Recommendations [facility] Additional Notes Protein: >1.2 g/Kg AdjBW; >94 g/day. Fluids: 1 ml/Kcal, or as per MD. Nutrition Intervention Nutrition Support: Continue TF-Nepro w/CARBSTEADY @ 40 ml/hr. Flush: 150 ml water Q 4 hr, or as per MD. Kcal 1,728 Protein (gm) 78 Carbohydrates (gm) 155 Fat (gm) 92 Fluid (mL) 698 Fiber (gm) 12 % RDI: 97% Kcal; 83% AA. Goal #1 Provide at least 75% of energy /protein needs through Enteral Feeding during LOS. Follow-Up By: 09/12/21 Additional Comments Continue monitoring TF tolerance, [employer] evaluation, and BM.
--- NOTE | 2021-09-12 12:35 | Progress Note ---
Assessment and Plan 1. ESRD: Patient is on maintenance HD, MWF schedule. Last outpatient HD 08/12/21. Meds dosage based on GFR. Hemodialysis: 08/17, 08/19, 08/22, 08/24, 08/26, 08/28, 08/31, 09/02, 09/05, 09/07, 09/09. HD today. 2. FEN: Metabolic acidosis, s/p HD, monitor. UF with HD as tolerated. Monitor lytes and volume status. 3. Diabetic Hyperosmolar State, POA: S/p Insulin gtt. Per protocol. 4. Malfunctioning hemodialysis access: Patient presented with non functioning hemodialysis access. S/p angioplasty of R arm AVG. Seen by Vascular. 5. Acute Metabolic Encephalopathy, POA: 2/[address] head and MRI brain negative. MS is better. Seen by Neuro. 6. SIRS versus sepsis: S/p Abx. 7. HTN: Adjust meds as needed. Monitor BP. Subjective: Patient was seen and examined at the bedside. No new complaint. Examination: General appearance: well-developed, well-nourished, appears stated age, no distress HEENT: ATNC, pupils equal Neck: trachea midline Respiratory: Clear to Auscultation Cardiology: regular, S1S2, no murmur Gastrointestinal: soft, normoactive bowel sounds, not tender, ND Integumentary: no rash Neurologic: AO, L sided weakness Ext: no edema noted Hemodialysis access: R arm AVG Subjective Date of service: 09/12/21 Principal diagnosis: Possible Sepsis; DKA; AMS; h/o CVA left hemiparesis; ESRD on Dialysis; HTN Objective - Vital Signs Vital signs: Vital Signs - 12hr 09/12/21 09/12/21 09/12/21 05:48 07:35 07:39 Temperature 98.7 F Pulse Rate 63 64 66 Pulse Rate [ Left Radial] Pulse Rate [ Right Radial] Respiratory 17 Rate Blood Pressure 122/58 Blood Pressure 115/78 [Right] O2 Sat by Pulse 100 Oximetry O2 Sat by Pulse Oximetry [ Bilateral] 09/12/21 09/12/21 09/12/21 08:00 10:15 10:20 Temperature 98.2 F 97.9 F Pulse Rate 66 61 60 Pulse Rate [ 66 Left Radial] Pulse Rate [ 66 Right Radial] Respiratory 16 18 Rate Blood Pressure 145/68 144/70 Blood Pressure 122/58 [Right] O2 Sat by Pulse 100 Oximetry O2 Sat by Pulse 100 Oximetry [ Bilateral] 09/12/21 09/12/21 09/12/21 10:30 10:45 11:00 Temperature Pulse Rate 56 L 54 L 54 L Pulse Rate [ Left Radial] Pulse Rate [ Right Radial] Respiratory Rate Blood Pressure 134/63 103/46 101/49 Blood Pressure [Right] O2 Sat by Pulse Oximetry O2 Sat by Pulse Oximetry [ Bilateral] - Lab 09/08/21 05:31 09/08/21 05:31 Most recent lab results Calcium 10.8 mg/dL (8.4-10.2) H 09/08/21 05:31 Phosphorus 5.30 mg/dL (2.5-4.5) H 09/08/21 05:31 Magnesium 2.50 mg/dL (1.7-2.3) H 09/08/21 05:31 Medications & Allergies - Medications Allergies/Adverse Reactions: Allergies vancomycin Adverse Reaction (Verified 04/02/13 10:16) Hives Home Medications: Home Medications Medication Instructions Recorded Confirmed Last Taken Type Hydralazine HCl [hydrALAZINE] 100 mg PO BID 04/02/13 08/17/21 04/02/13 08:00 History Aspirin/Dipyridamole [Aggrenox] 1 cap PO BID #60 capsule 04/10/13 08/17/21 Unknown Rx Cinacalcet [Sensipar] 60 mg PO QDAY 08/17/21 08/17/21 Unknown History Citalopram [celeXA] 20 mg PO QDAY 08/17/21 08/17/21 Unknown History Gabapentin [Neurontin] 100 mg PO Q8HR 08/17/21 08/17/21 Unknown History Insulin Glargine,Hum.rec.anlog 55 unit SQ BID 08/17/21 08/17/21 Unknown History [Lantus Solostar] Promethazine [Phenergan] 25 mg PO Q6HR PRN 08/17/21 08/17/21 Unknown History Sevelamer Carbonate [Renvela] 800 mg PO TIDWM 08/17/21 08/17/21 Unknown History amLODIPine [Norvasc] 10 mg PO DAILY 08/17/21 08/17/21 Unknown History carvediloL [Coreg] 25 mg PO BID 08/17/21 08/17/21 Unknown History Albuterol Mdi (or & Nicu Only) 2 puff IH QID PRN 08/29/21 08/29/21 Unknown History [ProAir HFA Inhaler] AtorvaSTATin [Lipitor] 40 mg PO QHS 08/29/21 08/29/21 Unknown History Cetirizine HCl [Zyrtec 10mg tab] 10 mg PO QDAY 08/29/21 08/29/21 Unknown History Ferric Citrate (Nf) [Auryxia] 210 mg PO TID 08/29/21 08/29/21 Unknown History Fluticasone [Flonase] 2 spray NS QDAY PRN 08/29/21 08/29/21 Unknown History Furosemide [Lasix TAB] 40 mg PO QDAY 08/29/21 08/29/21 Unknown History Insulin Aspart (Nf) [NovoLOG 15 units SQ TIDAC 08/29/21 08/29/21 Unknown History Flexpen] Metoclopramide [Reglan] 10 mg PO HS 08/29/21 08/29/21 Unknown History Pantoprazole [Protonix] 40 mg PO QDAY 08/29/21 08/29/21 Unknown History Prochlorperazine Maleate 10 mg PO QDAY PRN 08/29/21 08/29/21 Unknown History [Compazine] Sucroferric Oxyhydroxide(Nf) 500 mg PO TIDWM 08/29/21 08/29/21 Unknown History [Velphoro (Nf)] cloNIDine [Catapres] 0.1 mg PO TID 08/29/21 08/29/21 Unknown History Active Medications: Generic Name Dose Route Start Last Admin Trade Name Freq PRN Reason Stop Dose Admin Acetaminophen 650 mg 08/17/21 07:50 08/30/21 20:25 Acetaminophen 325 Mg Tab PO 650 mg Q6H PRN Administration Pain, Mild (1-3) Acetaminophen 650 mg 08/17/21 08:17 08/17/21 14:49 Acetaminophen 650 Mg Rect Supp [place] 650 mg Q4H PRN Administration Pain, Mild (1-3) Albuterol 2.5 mg 08/29/21 20:00 Albuterol 2.5 Mg/3 Ml Nebu IH Q4HRT PRN Shortness Of Breath Amlodipine Besylate 10 mg 08/22/21 11:00 09/11/21 10:17 Amlodipine 10 Mg Tab PO 10 mg QDAY HAM Administration Lipase/Protease/Amylase 1 each 08/26/21 16:00 Lipase 10,500/Protease 25,000/Amylase 43,750 (Units) Dr Lopez FEEDTUBE PRN PRN For Clogged Feeding Tube Aspirin 325 mg 08/22/21 10:00 09/11/21 10:17 Aspirin 325 Mg Tab FEEDTUBE 325 mg QDAY HAM Administration Atorvastatin Calcium 40 mg 08/29/21 22:00 09/11/21 21:25 Atorvastatin 40 Mg Tab PO 40 mg QHS HAM Administration Citalopram Hydrobromide 40 mg 09/04/21 10:00 09/11/21 10:17 Citalopram 20 Mg Tab PO 40 mg QDAY HAM Administration Clonidine HCl 0.1 mg 08/29/21 20:00 09/12/21 07:39 Clonidine 0.1 Mg Tab PO 0.1 mg TID HAM Administration Dextrose 50 ml 08/17/21 23:37 Dextrose 50% In Water (25gm) 50 Ml Syringe IV Q30MIN PRN Hypoglycemia Protocol Diphenhydramine HCl 25 mg 09/07/21 09:30 09/12/21 00:06 Diphenhydramine 25 Mg Cap PO 25 mg Q8H PRN Administration Itching Famotidine 20 mg 08/20/21 10:00 09/11/21 10:17 Famotidine 20 Mg Tab FEEDTUBE 20 mg QDAY HAM Administration Haloperidol Lactate 5 mg 08/19/21 12:00 09/01/21 11:41 Haloperidol Lactate 5 Mg/1 Ml Inj IV 5 mg Q6H PRN Administration Agitation Heparin Sodium (Porcine) 5,000 unit 08/17/21 06:00 09/12/21 05:49 Heparin 5,000 Unit/1 Ml Vial SUB-Q 5,000 unit Q8HR HAM Administration Heparin Sodium (Porcine) 3,000 unit 08/17/21 07:41 08/31/21 10:38 Heparin 10,000 Units/10 Ml Vial IV 3,000 unit KATI PRN Administration hemodialysis Hydralazine HCl 100 mg 08/17/21 09:00 09/12/21 07:39 Hydralazine 100 Mg Tab PO 100 mg TID HAM Administration Hydralazine HCl 10 mg 08/17/21 07:56 08/25/21 05:19 Hydralazine 20 Mg/1 Ml Inj IV 10 mg Q4HR PRN Administration Hypertension Hydromorphone HCl 0.25 mg 08/17/21 07:50 09/12/21 11:09 Hydromorphone 0.5 Mg/0.5 Ml Inj IV 0.25 mg Q4H PRN Administration Pain, Moderate (4-6) Hydroxyzine Pamoate 25 mg 09/03/21 14:50 Hydroxyzine Pamoate 25 Mg Cap PO Q6H PRN Anxiety Sodium Chloride 100 mls @ 999 mls/hr 09/11/21 12:37 Nacl 0.9% IV KATI PRN Hypotension Insulin Glargine 15 units 09/09/21 10:00 09/11/21 22:28 Insulin Glargine 100 Units/Ml SUB-Q Not Given BID [facility] Insulin Human Lispro 0 unit 08/18/21 00:00 09/12/21 07:33 Insulin Lispro 100 Unit/Ml SUB-Q Not Given Q6HR [facility] Protocol Levetiracetam 500 mg 08/20/21 10:00 09/11/21 10:17 Levetiracetam 500 Mg Tab PO 500 mg DAILY HAM Administration Levothyroxine Sodium 125 mcg 08/22/21 06:00 09/12/21 05:50 Levothyroxine 125 Mcg Tab PO 125 mcg QAM@0600 HAM Administration Lidocaine HCl 15 ml 09/05/21 14:00 09/12/21 07:39 Magic Mouthwash 30ml PO 15 ml TID HAM Administration Losartan Potassium 50 mg 08/17/21 10:00 09/11/21 10:06 Losartan 50 Mg Tab PO 50 mg QDAY HAM Administration Magnesium Hydroxide 30 ml 08/17/21 04:09 08/23/21 23:56 Magnesium Hydroxide (Mom) Oral Liqd Udc PO 30 ml Q4H PRN Administration Constipation Metoprolol Tartrate 100 mg 08/20/21 11:00 09/12/21 00:05 Metoprolol Tartrate 100 Mg Tab PO 100 mg BID HAM Administration Ondansetron HCl 4 mg 08/17/21 04:09 09/10/21 22:01 Ondansetron 4 Mg/2 Ml Inj IV 4 mg Q8H PRN Administration Nausea And Vomiting Phenol 1 spray 09/04/21 09:54 09/06/21 10:13 Phenol 1.4% 177 Ml Bottle MM 1 spray PRN PRN Administration Sore Throat Promethazine HCl 25 mg 09/07/21 20:33 09/07/21 21:08 Promethazine 25 Mg Rect Supp OR 25 mg Q6H PRN Administration Nausea And Vomiting Sevelamer Carbonate 2,400 mg 09/06/21 11:30 09/12/21 07:39 Sevelamer Carbonate 800 Mg Tab PO 2,400 mg AC HAM Administration Simple Syrup 15 ml 08/26/21 16:00 09/04/21 00:20 Simple Syrup 15 Ml FEEDTUBE 15 ml PRN PRN Administration Hypoglycemia Simple Syrup 30 ml 08/26/21 16:00 Simple Syrup 15 Ml FEEDTUBE PRN PRN Hypoglycemia Sodium Bicarbonate 325 mg 08/26/21 16:00 Sodium Bicarbonate 325 Mg Tab FEEDTUBE PRN PRN For Clogged Feeding Tube Sodium Chloride 10 ml 08/17/21 10:00 09/11/21 21:26 Sodium Chloride 0.9% 10 Ml Flush Syringe IV 10 ml BID HAM Administration Sodium Chloride 10 ml 08/17/21 04:09 09/10/21 14:29 Sodium Chloride 0.9% 10 Ml Flush Syringe IV 10 ml PRN PRN Administration LINE FLUSH Zolpidem Tartrate 5 mg 09/05/21 22:00 09/11/21 21:24 Zolpidem 5 Mg Tab PO 5 mg QHS PRN Administration Sleep
[2021-09-12] MEDS: amLODIPine 10 MG TAB PO SCH (16:28)
[2021-09-12] MEDS: levETIRAcetam 500 MG TAB PO SCH (16:29)
[2021-09-12] MEDS: CITALOPRAM 20 MG TAB PO SCH (16:29)
[2021-09-12] MEDS: FAMOTIDINE 20 MG TAB FEEDTUBE SCH (16:29)
[2021-09-12] MEDS: ASPIRIN 325 MG TAB FEEDTUBE SCH (16:29)
[2021-09-12] MEDS: LOSARTAN 50 MG TAB PO SCH (16:29)
[2021-09-12] MEDS: ONDANSETRON 4 MG/2 ML INJ IV PRN (20:41)
[2021-09-13] MEDS: ONDANSETRON 4 MG/2 ML INJ IV PRN ×3 (04:15→21:31)
[2021-09-13] MEDS: ZOLPIDEM 5 MG TAB PO PRN ×2 (04:49→21:31)
[2021-09-13] MEDS: PROMETHAZINE 25 MG RECT SUPP PR PRN (04:57)
[2021-09-13] MEDS: HEPARIN 5,000 UNIT/1 ML VIAL SUB-Q SCH ×3 (05:01→21:30)
[2021-09-13] MEDS: LEVOTHYROXINE 125 MCG TAB PO SCH (05:01)
[2021-09-13] MEDS: INSULIN LISPRO 100 UNIT/ML SUB-Q SCH ×4 (06:54→23:03)
--- NOTE | 2021-09-13 08:25 | Progress Note ---
Assessment and Plan 1. ESRD: Patient is on maintenance HD, MWF schedule. Last outpatient HD 08/12/21. Meds dosage based on GFR. Hemodialysis: 08/17, 08/19, 08/22, 08/24, 08/26, 08/28, 08/31, 09/02, 09/05, 09/07, 09/09, 09/12. 2. FEN: Metabolic acidosis, s/p HD, monitor. UF with HD as tolerated. Monitor lytes and volume status. 3. Diabetic Hyperosmolar State, POA: S/p Insulin gtt. Per protocol. 4. Malfunctioning hemodialysis access: Patient presented with non functioning hemodialysis access. S/p angioplasty of R arm AVG. Seen by Vascular. 5. Acute Metabolic Encephalopathy, POA: 2/[address] head and MRI brain negative. MS is better. Seen by Neuro. 6. SIRS versus sepsis: S/p Abx. 7. HTN: Adjust meds as needed. Monitor BP. Await placement. Subjective: Patient was seen and examined at the bedside. No new complaint. Examination: General appearance: well-developed, well-nourished, appears stated age, no distress HEENT: ATNC, pupils equal Neck: trachea midline Respiratory: Clear to Auscultation Cardiology: regular, S1S2, no murmur Gastrointestinal: soft, normoactive bowel sounds, not tender, ND Integumentary: no rash Neurologic: AO, L sided weakness Ext: no edema noted Hemodialysis access: R arm AVG Subjective Date of service: 09/13/21 Principal diagnosis: Possible Sepsis; DKA; AMS; h/o CVA left hemiparesis; ESRD on Dialysis; HTN Objective - Vital Signs Vital signs: Vital Signs - 12hr 09/12/21 09/12/21 09/13/21 22:00 23:15 04:20 Temperature 98.9 F Pulse Rate 73 Pulse Rate [ 66 Left Radial] Pulse Rate [ 66 Right Radial] Respiratory 16 16 Rate Blood Pressure 132/53 179/68 O2 Sat by Pulse 98 97 Oximetry - Lab 09/08/21 05:31 09/08/21 05:31 Most recent lab results Calcium 10.8 mg/dL (8.4-10.2) H 09/08/21 05:31 Phosphorus 5.30 mg/dL (2.5-4.5) H 09/08/21 05:31 Magnesium 2.50 mg/dL (1.7-2.3) H 09/08/21 05:31 Medications & Allergies - Medications Allergies/Adverse Reactions: Allergies vancomycin Adverse Reaction (Verified 04/02/13 10:16) Hives Home Medications: Home Medications Medication Instructions Recorded Confirmed Last Taken Type Hydralazine HCl [hydrALAZINE] 100 mg PO BID 04/02/13 08/17/21 04/02/13 08:00 History Aspirin/Dipyridamole [Aggrenox] 1 cap PO BID #60 capsule 04/10/13 08/17/21 Unknown Rx Cinacalcet [Sensipar] 60 mg PO QDAY 08/17/21 08/17/21 Unknown History Citalopram [celeXA] 20 mg PO QDAY 08/17/21 08/17/21 Unknown History Gabapentin [Neurontin] 100 mg PO Q8HR 08/17/21 08/17/21 Unknown History Insulin Glargine,Hum.rec.anlog 55 unit SQ BID 08/17/21 08/17/21 Unknown History [Lantus Solostar] Promethazine [Phenergan] 25 mg PO Q6HR PRN 08/17/21 08/17/21 Unknown History Sevelamer Carbonate [Renvela] 800 mg PO TIDWM 08/17/21 08/17/21 Unknown History amLODIPine [Norvasc] 10 mg PO DAILY 08/17/21 08/17/21 Unknown History carvediloL [Coreg] 25 mg PO BID 08/17/21 08/17/21 Unknown History Albuterol Mdi (or & Nicu Only) 2 puff IH QID PRN 08/29/21 08/29/21 Unknown History [ProAir HFA Inhaler] AtorvaSTATin [Lipitor] 40 mg PO QHS 08/29/21 08/29/21 Unknown History Cetirizine HCl [Zyrtec 10mg tab] 10 mg PO QDAY 08/29/21 08/29/21 Unknown History Ferric Citrate (Nf) [Auryxia] 210 mg PO TID 08/29/21 08/29/21 Unknown History Fluticasone [Flonase] 2 spray NS QDAY PRN 08/29/21 08/29/21 Unknown History Furosemide [Lasix TAB] 40 mg PO QDAY 08/29/21 08/29/21 Unknown History Insulin Aspart (Nf) [NovoLOG 15 units SQ TIDAC 08/29/21 08/29/21 Unknown History Flexpen] Metoclopramide [Reglan] 10 mg PO HS 08/29/21 08/29/21 Unknown History Pantoprazole [Protonix] 40 mg PO QDAY 08/29/21 08/29/21 Unknown History Prochlorperazine Maleate 10 mg PO QDAY PRN 08/29/21 08/29/21 Unknown History [Compazine] Sucroferric Oxyhydroxide(Nf) 500 mg PO TIDWM 08/29/21 08/29/21 Unknown History [Velphoro (Nf)] cloNIDine [Catapres] 0.1 mg PO TID 08/29/21 08/29/21 Unknown History Active Medications: Generic Name Dose Route Start Last Admin Trade Name Freq PRN Reason Stop Dose Admin Acetaminophen 650 mg 08/17/21 07:50 08/30/21 20:25 Acetaminophen 325 Mg Tab PO 650 mg Q6H PRN Administration Pain, Mild (1-3) Acetaminophen 650 mg 08/17/21 08:17 08/17/21 14:49 Acetaminophen 650 Mg Rect Supp [place] 650 mg Q4H PRN Administration Pain, Mild (1-3) Albuterol 2.5 mg 08/29/21 20:00 Albuterol 2.5 Mg/3 Ml Nebu IH Q4HRT PRN Shortness Of Breath Amlodipine Besylate 10 mg 08/22/21 11:00 09/12/21 16:28 Amlodipine 10 Mg Tab PO 10 mg QDAY HAM Administration Lipase/Protease/Amylase 1 each 08/26/21 16:00 Lipase 10,500/Protease 25,000/Amylase 43,750 (Units) Dr Lopez FEEDTNIKOLAY PRN PRN For Clogged Feeding Tube Aspirin 325 mg 08/22/21 10:00 09/12/21 16:29 Aspirin 325 Mg Tab FEEDTUBE 325 mg QDAY HAM Administration Atorvastatin Calcium 40 mg 08/29/21 22:00 09/12/21 21:03 Atorvastatin 40 Mg Tab PO 40 mg QHS HAM Administration Citalopram Hydrobromide 40 mg 09/04/21 10:00 09/12/21 16:29 Citalopram 20 Mg Tab PO 40 mg QDAY HAM Administration Clonidine HCl 0.1 mg 08/29/21 20:00 09/12/21 20:59 Clonidine 0.1 Mg Tab PO 0.1 mg TID HAM Administration Dextrose 50 ml 08/17/21 23:37 Dextrose 50% In Water (25gm) 50 Ml Syringe IV Q30MIN PRN Hypoglycemia Protocol Diphenhydramine HCl 25 mg 09/07/21 09:30 09/12/21 00:06 Diphenhydramine 25 Mg Cap PO 25 mg Q8H PRN Administration Itching Famotidine 20 mg 08/20/21 10:00 09/12/21 16:29 Famotidine 20 Mg Tab FEEDTUBE 20 mg QDAY HAM Administration Haloperidol Lactate 5 mg 08/19/21 12:00 09/01/21 11:41 Haloperidol Lactate 5 Mg/1 Ml Inj IV 5 mg Q6H PRN Administration Agitation Heparin Sodium (Porcine) 5,000 unit 08/17/21 06:00 09/13/21 05:01 Heparin 5,000 Unit/1 Ml Vial SUB-Q 5,000 unit Q8HR HAM Administration Heparin Sodium (Porcine) 3,000 unit 08/17/21 07:41 08/31/21 10:38 Heparin 10,000 Units/10 Ml Vial IV 3,000 unit KATI PRN Administration hemodialysis Hydralazine HCl 100 mg 08/17/21 09:00 09/12/21 20:59 Hydralazine 100 Mg Tab PO 100 mg TID HAM Administration Hydralazine HCl 10 mg 08/17/21 07:56 08/25/21 05:19 Hydralazine 20 Mg/1 Ml Inj IV 10 mg Q4HR PRN Administration Hypertension Hydromorphone HCl 0.25 mg 08/17/21 07:50 09/12/21 20:49 Hydromorphone 0.5 Mg/0.5 Ml Inj IV 0.25 mg Q4H PRN Administration Pain, Moderate (4-6) Hydroxyzine Pamoate 25 mg 09/03/21 14:50 Hydroxyzine Pamoate 25 Mg Cap PO Q6H PRN Anxiety Sodium Chloride 100 mls @ 999 mls/hr 09/11/21 12:37 Nacl 0.9% IV KATI PRN Hypotension Insulin Glargine 15 units 09/09/21 10:00 09/12/21 21:04 Insulin Glargine 100 Units/Ml SUB-Q Not Given BID [facility] Insulin Human Lispro 0 unit 08/18/21 00:00 09/13/21 06:54 Insulin Lispro 100 Unit/Ml SUB-Q 4 unit Q6HR HAM Administration Protocol Levetiracetam 500 mg 08/20/21 10:00 09/12/21 16:29 Levetiracetam 500 Mg Tab PO 500 mg DAILY HAM Administration Levothyroxine Sodium 125 mcg 08/22/21 06:00 09/13/21 05:01 Levothyroxine 125 Mcg Tab PO 125 mcg QAM@0600 [facility] Administration Lidocaine HCl 15 ml 09/05/21 14:00 09/12/21 20:59 Magic Mouthwash 30ml PO 15 ml TID HAM Administration Losartan Potassium 50 mg 08/17/21 10:00 09/12/21 16:29 Losartan 50 Mg Tab PO 50 mg QDAY HAM Administration Magnesium Hydroxide 30 ml 08/17/21 04:09 08/23/21 23:56 Magnesium Hydroxide (Mom) Oral Liqd Udc PO 30 ml Q4H PRN Administration Constipation Metoprolol Tartrate 100 mg 08/20/21 11:00 09/12/21 21:04 Metoprolol Tartrate 100 Mg Tab PO 100 mg BID HAM Administration Ondansetron HCl 4 mg 08/17/21 04:09 09/13/21 04:15 Ondansetron 4 Mg/2 Ml Inj IV 4 mg Q8H PRN Administration Nausea And Vomiting Phenol 1 spray 09/04/21 09:54 09/06/21 10:13 Phenol 1.4% 177 Ml Bottle MM 1 spray PRN PRN Administration Sore Throat Promethazine HCl 25 mg 09/07/21 20:33 09/13/21 04:57 Promethazine 25 Mg Rect Supp [place] 25 mg Q6H PRN Administration Nausea And Vomiting Sevelamer Carbonate 2,400 mg 09/06/21 11:30 09/12/21 16:30 Sevelamer Carbonate 800 Mg Tab PO 2,400 mg AC HAM Administration Simple Syrup 15 ml 08/26/21 16:00 09/04/21 00:20 Simple Syrup 15 Ml FEEDTUBE 15 ml PRN PRN Administration Hypoglycemia Simple Syrup 30 ml 08/26/21 16:00 Simple Syrup 15 Ml FEEDTUBE PRN PRN Hypoglycemia Sodium Bicarbonate 325 mg 08/26/21 16:00 Sodium Bicarbonate 325 Mg Tab FEEDTUBE PRN PRN For Clogged Feeding Tube Sodium Chloride 10 ml 08/17/21 10:00 09/12/21 21:04 Sodium Chloride 0.9% 10 Ml Flush Syringe IV 10 ml BID HAM Administration Sodium Chloride 10 ml 08/17/21 04:09 09/10/21 14:29 Sodium Chloride 0.9% 10 Ml Flush Syringe IV 10 ml PRN PRN Administration LINE FLUSH Zolpidem Tartrate 5 mg 09/05/21 22:00 09/13/21 04:49 Zolpidem 5 Mg Tab PO 5 mg QHS PRN Administration Sleep
[2021-09-13] MEDS: SEVELAMER CARBONATE 800 MG TAB PO SCH ×3 (08:46→17:30)
[2021-09-13] MEDS: INSULIN GLARGINE 100 UNITS/ML SUB-Q SCH ×2 (11:03→22:50)
[2021-09-13] MEDS: ASPIRIN EC 325 MG TAB PO SCH (11:04)
[2021-09-13] MEDS: LOSARTAN 50 MG TAB PO SCH (11:04)
[2021-09-13] MEDS: METOPROLOL TARTRATE 100 MG TAB PO SCH ×2 (11:04→21:32)
[2021-09-13] MEDS: amLODIPine 10 MG TAB PO SCH (11:04)
[2021-09-13] MEDS: CITALOPRAM 20 MG TAB PO SCH (11:04)
[2021-09-13] MEDS: levETIRAcetam 500 MG TAB PO SCH (11:04)
[2021-09-13] MEDS: FAMOTIDINE 20 MG TAB PO SCH (11:04)
[2021-09-13] MEDS: cloNIDine 0.1 MG TAB PO SCH ×3 (11:05→21:31)
[2021-09-13] MEDS: MAGIC MOUTHWASH 30ML PO SCH ×2 (11:05→15:04)
[2021-09-13] MEDS: hydrALAZINE 100 MG TAB PO SCH ×3 (11:05→21:32)
--- NOTE | 2021-09-13 12:57 | Progress Note ---
Assessment and Plan Possible Sepsis (high grade fevers, tachycardia, acute encephalopathy, tachypnea) DKA Acute Metabolic Encephalopathy h/o CVA with left-sided deficits End Stage renal Disease on HD HTN Hypothyroidism - for dialysis today - continue aspiration precautions; HOB > 40 degrees - discharge planning ongoing concurrently - continue care as below otherwise; - continue keppra as AED - prn Haldol for delirium / agitation - prn supplemental oxygen for target O2 sats > 90% - prn bronchodilators (DG) with pulm hygiene per RT - HD/UF per nephrology prescription for toxin and volume clearance - continue to avoid nephrotoxins, renally dose all medications - continue mobility protocols to prevent pressure ulcers - PT/OT as tolerated - Wound care per RN/WCT - continue accuchecks with glycemic control per SSI for target blood glucose < 180 mg/dL - tobacco abstinence counseled at the bedside - home oxygen evaluation at discharge - GI & VTE prophylaxis - Flu & pneumovax per protocol - Pulmonary out patient follow up for PFTs and optimization of respiratory status - continue other care per attending / other consultants - prn analgesia per pain score COVID SPECIFIC INTERVENTIONS - COVID-19 PCR negative ... re-evaluate in am & prn Subjective Date of service: 09/13/21 Principal diagnosis: Possible Sepsis; DKA; AMS; h/o CVA left hemiparesis; ESRD on Dialysis; HTN Interval history: Patient is seen today for: Possible Sepsis; DKA; Acute Metabolic Encephalopathy; h/o CVA with left-sided deficits; End Stage renal Disease on HD; HTN Seen and examined at bedside; 24hour events reviewed; nursing and respiratory care staff consulted; no adverse overnight events reported to me; resting peacefully in bed; Objective Vital Signs - 12hr 09/13/21 09/13/21 09/13/21 04:20 07:00 08:12 Temperature Pulse Rate 73 Respiratory 24 Rate Blood Pressure 179/68 169/84 O2 Sat by Pulse Oximetry 09/13/21 09/13/21 08:16 10:00 Temperature 97.6 F Pulse Rate Respiratory 16 Rate Blood Pressure 127/79 O2 Sat by Pulse 97 Oximetry Constitutional: no acute distress, alert, other (middle aged obese female with normal respiratory effort at rest) Eyes: non-icteric ENT: oropharynx moist Neck: supple, no lymphadenopathy, no JVD Effort: normal Ascultation: Bilateral: clear, diminished breath sounds Percussion: Bilateral: not dull Cardiovascular: regular rate and rhythm, other (S1,S2) Gastrointestinal: normoactive bowel sounds, soft, non-tender, non-distended (protuberant), other (obese) Integumentary: normal Extremities: no cyanosis, no edema, pulses normal, no ischemia or petechiae Neurologic: normal mental status, non-focal exam (grossly), pupils equal and round, CN II-XII normal Psychiatric: mood appropriate, affect normal CBC and BMP: 09/08/21 05:31 09/08/21 05:31 ABG, PT/INR, D-dimer: PT/INR, D-dimer PT 14.0 Sec. (12.2-14.9) 08/23/21 22:59 INR 0.97 (0.87-1.13) 08/23/21 22:59 D-Dimer 2695.37 ng/mlDDU (0-234) H 08/17/21 14:40 Abnormal lab findings: Abnormal Labs 08/17/21 08/17/21 08/17/21 00:33 00:33 02:07 WBC Hgb MCH RDW 19.7 H Lymph % (Auto) 10.5 L [place] % (Auto) Lymph # (Auto) 1.1 L [place] # (Auto) Baso # (Auto) Seg Neutrophils % 79.1 H Seg Neutrophils # 8.6 H D-Dimer Sodium 132 L 134 L Chloride 87.8 L 88.4 L Carbon Dioxide 21 L BUN 61 H 61 H Creatinine 10.1 H 10.3 H Glucose 594 H* 533 H* POC Glucose Hemoglobin A1c Calcium Phosphorus Magnesium ALT < 5 L Alkaline Phosphatase 182 H NT-Pro-B Natriuret Pep 22185 H Total Protein Albumin HDL Cholesterol TSH Salicylates Acetaminophen 08/17/21 08/17/21 08/17/21 02:07 02:07 02:07 WBC Hgb MCH RDW Lymph % (Auto) [place] % (Auto) Lymph # (Auto) [place] # (Auto) Baso # (Auto) Seg Neutrophils % Seg Neutrophils # D-Dimer Sodium Chloride Carbon Dioxide BUN Creatinine Glucose POC Glucose Hemoglobin A1c Calcium Phosphorus Magnesium ALT Alkaline Phosphatase NT-Pro-B Natriuret Pep Total Protein Albumin HDL Cholesterol TSH 5.080 H Salicylates < 0.3 L Acetaminophen 5.0 L 08/17/21 08/17/21 08/17/21 04:20 04:20 05:09 WBC Hgb MCH RDW Lymph % (Auto) [place] % (Auto) Lymph # (Auto) [place] # (Auto) Baso # (Auto) Seg Neutrophils % Seg Neutrophils # D-Dimer Sodium 136 L Chloride 90.9 L Carbon Dioxide BUN 61 H Creatinine 10.4 H Glucose 351 H POC Glucose 298 H Hemoglobin A1c Calcium Phosphorus 6.20 H Magnesium ALT Alkaline Phosphatase NT-Pro-B Natriuret Pep Total Protein Albumin HDL Cholesterol TSH Salicylates Acetaminophen 08/17/21 08/17/21 08/17/21 09:58 10:53 13:14 WBC Hgb MCH RDW Lymph % (Auto) [place] % (Auto) Lymph # (Auto) [place] # (Auto) Baso # (Auto) Seg Neutrophils % Seg Neutrophils # D-Dimer Sodium Chloride Carbon Dioxide BUN Creatinine Glucose POC Glucose 139 H 162 H 145 H Hemoglobin A1c Calcium Phosphorus Magnesium ALT Alkaline Phosphatase NT-Pro-B Natriuret Pep Total Protein Albumin HDL Cholesterol TSH Salicylates Acetaminophen 08/17/21 08/17/21 08/17/21 14:40 14:40 14:40 WBC Hgb MCH RDW Lymph % (Auto) [place] % (Auto) Lymph # (Auto) [place] # (Auto) Baso # (Auto) Seg Neutrophils % Seg Neutrophils # D-Dimer 2695.37 H Sodium Chloride 96.7 L Carbon Dioxide BUN 63 H Creatinine 10.7 H Glucose 145 H POC Glucose Hemoglobin A1c Calcium Phosphorus Magnesium ALT Alkaline Phosphatase NT-Pro-B Natriuret Pep Total Protein Albumin HDL Cholesterol 30 L TSH Salicylates Acetaminophen 08/17/21 08/17/21 08/17/21 14:40 16:45 17:47 WBC Hgb MCH RDW Lymph % (Auto) [place] % (Auto) Lymph # (Auto) [place] # (Auto) Baso # (Auto) Seg Neutrophils % Seg Neutrophils # D-Dimer Sodium Chloride 96.2 L Carbon Dioxide BUN 44 H Creatinine 7.2 H Glucose 167 H POC Glucose 136 H 165 H Hemoglobin A1c Calcium Phosphorus Magnesium ALT Alkaline Phosphatase NT-Pro-B Natriuret Pep Total Protein Albumin HDL Cholesterol TSH Salicylates Acetaminophen 08/17/21 08/17/21 08/17/21 18:01 21:01 22:40 WBC Hgb MCH RDW Lymph % (Auto) [place] % (Auto) Lymph # (Auto) [place] # (Auto) Baso # (Auto) Seg Neutrophils % Seg Neutrophils # D-Dimer Sodium Chloride 97.1 L 96.4 L Carbon Dioxide BUN 39 H 40 H Creatinine 8.0 H 8.5 H Glucose 122 H 109 H POC Glucose 172 H Hemoglobin A1c Calcium Phosphorus Magnesium ALT Alkaline Phosphatase NT-Pro-B Natriuret Pep Total Protein Albumin HDL Cholesterol TSH Salicylates Acetaminophen 08/17/21 08/18/21 08/18/21 22:40 02:13 04:56 WBC Hgb MCH 27 L RDW 19.7 H Lymph % (Auto) [place] % (Auto) Lymph # (Auto) [place] # (Auto) Baso # (Auto) Seg Neutrophils % Seg Neutrophils # D-Dimer Sodium Chloride 96.8 L Carbon Dioxide BUN 44 H Creatinine 9.3 H Glucose 170 H POC Glucose 190 H Hemoglobin A1c Calcium Phosphorus 6.70 H Magnesium ALT Alkaline Phosphatase NT-Pro-B Natriuret Pep Total Protein Albumin HDL Cholesterol TSH Salicylates Acetaminophen 08/18/21 08/18/21 08/18/21 04:56 04:56 17:01 WBC Hgb MCH 27 L RDW 19.7 H Lymph % (Auto) [place] % (Auto) 9.7 H Lymph # (Auto) [place] # (Auto) Baso # (Auto) Seg Neutrophils % Seg Neutrophils # D-Dimer Sodium Chloride Carbon Dioxide BUN Creatinine Glucose POC Glucose 228 H Hemoglobin A1c 10.2 H Calcium Phosphorus Magnesium ALT Alkaline Phosphatase NT-Pro-B Natriuret Pep Total Protein Albumin HDL Cholesterol TSH Salicylates Acetaminophen 08/18/21 08/19/21 08/19/21 23:58 04:37 04:37 WBC Hgb MCH 27 L RDW 19.5 H Lymph % (Auto) [place] % (Auto) Lymph # (Auto) [place] # (Auto) Baso # (Auto) Seg Neutrophils % Seg Neutrophils # D-Dimer Sodium Chloride 96.7 L Carbon Dioxide 21 L BUN 57 H Creatinine 10.2 H Glucose 151 H POC Glucose 192 H Hemoglobin A1c Calcium Phosphorus Magnesium ALT Alkaline Phosphatase NT-Pro-B Natriuret Pep Total Protein Albumin HDL Cholesterol TSH Salicylates Acetaminophen 08/19/21 08/19/21 08/20/21 17:46 22:59 04:24 WBC Hgb MCH RDW Lymph % (Auto) [place] % (Auto) Lymph # (Auto) [place] # (Auto) Baso # (Auto) Seg Neutrophils % Seg Neutrophils # D-Dimer Sodium 133 L Chloride 87.9 L Carbon Dioxide 15 L BUN 33 H Creatinine 7.3 H Glucose 365 H POC Glucose 217 H 282 H Hemoglobin A1c Calcium Phosphorus 6.50 H Magnesium ALT Alkaline Phosphatase NT-Pro-B Natriuret Pep Total Protein Albumin HDL Cholesterol TSH Salicylates Acetaminophen 08/20/21 08/20/21 08/20/21 06:07 07:51 15:37 WBC Hgb MCH RDW Lymph % (Auto) [place] % (Auto) Lymph # (Auto) [place] # (Auto) Baso # (Auto) Seg Neutrophils % Seg Neutrophils # D-Dimer Sodium Chloride Carbon Dioxide BUN Creatinine Glucose POC Glucose 398 H 308 H 247 H Hemoglobin A1c Calcium Phosphorus Magnesium ALT Alkaline Phosphatase NT-Pro-B Natriuret Pep Total Protein Albumin HDL Cholesterol TSH Salicylates Acetaminophen 08/20/21 08/21/21 08/21/21 23:22 04:45 05:07 WBC Hgb MCH RDW Lymph % (Auto) [place] % (Auto) Lymph # (Auto) [place] # (Auto) Baso # (Auto) Seg Neutrophils % Seg Neutrophils # D-Dimer Sodium 134 L Chloride 92.9 L Carbon Dioxide BUN 48 H Creatinine 8.0 H Glucose 389 H POC Glucose 316 H 407 H Hemoglobin A1c Calcium 10.6 H Phosphorus Magnesium ALT Alkaline Phosphatase NT-Pro-B Natriuret Pep Total Protein Albumin HDL Cholesterol TSH Salicylates Acetaminophen 08/21/21 08/21/21 08/21/21 11:37 15:52 23:44 WBC Hgb MCH RDW Lymph % (Auto) [place] % (Auto) Lymph # (Auto) [place] # (Auto) Baso # (Auto) Seg Neutrophils % Seg Neutrophils # D-Dimer Sodium Chloride Carbon Dioxide BUN Creatinine Glucose POC Glucose 244 H 325 H 221 H Hemoglobin A1c Calcium Phosphorus Magnesium ALT Alkaline Phosphatase NT-Pro-B Natriuret Pep Total Protein Albumin HDL Cholesterol TSH Salicylates Acetaminophen 08/22/21 08/22/21 08/23/21 06:06 12:27 00:37 WBC Hgb MCH RDW Lymph % (Auto) [place] % (Auto) Lymph # (Auto) [place] # (Auto) Baso # (Auto) Seg Neutrophils % Seg Neutrophils # D-Dimer Sodium Chloride Carbon Dioxide BUN Creatinine Glucose POC Glucose 224 H 247 H 341 H Hemoglobin A1c Calcium Phosphorus Magnesium ALT Alkaline Phosphatase NT-Pro-B Natriuret Pep Total Protein Albumin HDL Cholesterol TSH Salicylates Acetaminophen 08/23/21 08/23/21 08/23/21 04:20 05:37 11:56 WBC Hgb MCH RDW Lymph % (Auto) [place] % (Auto) Lymph # (Auto) [place] # (Auto) Baso # (Auto) Seg Neutrophils % Seg Neutrophils # D-Dimer Sodium Chloride 94.4 L Carbon Dioxide BUN 49 H Creatinine 7.7 H Glucose 201 H POC Glucose 210 H 162 H Hemoglobin A1c Calcium 10.9 H Phosphorus Magnesium ALT Alkaline Phosphatase NT-Pro-B Natriuret Pep Total Protein Albumin HDL Cholesterol TSH Salicylates Acetaminophen 08/23/21 08/23/21 08/23/21 17:45 22:58 22:59 WBC 12.2 H Hgb MCH 26 L RDW 20.3 H Lymph % (Auto) [place] % (Auto) Lymph # (Auto) [place] # (Auto) Baso # (Auto) Seg Neutrophils % Seg Neutrophils # D-Dimer Sodium Chloride Carbon Dioxide BUN Creatinine Glucose POC Glucose 211 H 218 H Hemoglobin A1c Calcium Phosphorus Magnesium ALT Alkaline Phosphatase NT-Pro-B Natriuret Pep Total Protein Albumin HDL Cholesterol TSH Salicylates Acetaminophen 08/23/21 08/24/21 08/24/21 22:59 04:23 04:23 WBC 15.4 H Hgb MCH 27 L RDW 19.8 H Lymph % (Auto) [place] % (Auto) 13.0 H Lymph # (Auto) [place] # (Auto) 2.0 H Baso # (Auto) 0.2 H Seg Neutrophils % Seg Neutrophils # 9.8 H D-Dimer Sodium 136 L Chloride 93.0 L Carbon Dioxide BUN 73 H Creatinine 8.7 H 9.2 H Glucose 145 H POC Glucose Hemoglobin A1c Calcium 10.7 H Phosphorus 6.30 H Magnesium 2.70 H ALT 6 L Alkaline Phosphatase 157 H NT-Pro-B Natriuret Pep Total Protein Albumin 3.7 L HDL Cholesterol TSH Salicylates Acetaminophen 08/24/21 08/24/21 08/24/21 05:09 11:20 18:28 WBC Hgb MCH RDW Lymph % (Auto) [place] % (Auto) Lymph # (Auto) [place] # (Auto) Baso # (Auto) Seg Neutrophils % Seg Neutrophils # D-Dimer Sodium Chloride Carbon Dioxide BUN Creatinine Glucose POC Glucose 155 H 110 H 182 H Hemoglobin A1c Calcium Phosphorus Magnesium ALT Alkaline Phosphatase NT-Pro-B Natriuret Pep Total Protein Albumin HDL Cholesterol TSH Salicylates Acetaminophen 08/25/21 08/25/21 08/25/21 00:15 04:44 11:28 WBC 11.3 H Hgb MCH 27 L RDW 20.4 H Lymph % (Auto) [place] % (Auto) Lymph # (Auto) [place] # (Auto) Baso # (Auto) Seg Neutrophils % Seg Neutrophils # D-Dimer Sodium Chloride Carbon Dioxide BUN Creatinine Glucose POC Glucose 247 H 189 H Hemoglobin A1c Calcium Phosphorus Magnesium ALT Alkaline Phosphatase NT-Pro-B Natriuret Pep Total Protein Albumin HDL Cholesterol TSH Salicylates Acetaminophen 08/25/21 08/25/21 08/26/21 16:42 23:29 05:22 WBC Hgb MCH RDW Lymph % (Auto) [place] % (Auto) Lymph # (Auto) [place] # (Auto) Baso # (Auto) Seg Neutrophils % Seg Neutrophils # D-Dimer Sodium Chloride Carbon Dioxide BUN Creatinine 10.0 H Glucose POC Glucose 169 H 213 H Hemoglobin A1c Calcium Phosphorus Magnesium ALT Alkaline Phosphatase NT-Pro-B Natriuret Pep Total Protein Albumin HDL Cholesterol TSH Salicylates Acetaminophen 08/26/21 08/26/21 08/26/21 06:12 11:47 23:33 WBC Hgb MCH RDW Lymph % (Auto) [place] % (Auto) Lymph # (Auto) [place] # (Auto) Baso # (Auto) Seg Neutrophils % Seg Neutrophils # D-Dimer Sodium Chloride Carbon Dioxide BUN Creatinine Glucose POC Glucose 191 H 197 H 197 H Hemoglobin A1c Calcium Phosphorus Magnesium ALT Alkaline Phosphatase NT-Pro-B Natriuret Pep Total Protein Albumin HDL Cholesterol TSH Salicylates Acetaminophen 08/27/21 08/27/21 08/27/21 06:02 06:02 06:17 WBC Hgb MCH 27 L RDW 20.1 H Lymph % (Auto) [place] % (Auto) 14.2 H Lymph # (Auto) [place] # (Auto) 1.4 H Baso # (Auto) Seg Neutrophils % Seg Neutrophils # D-Dimer Sodium 134 L Chloride 93.8 L Carbon Dioxide BUN 56 H Creatinine 6.4 H Glucose 253 H POC Glucose 250 H Hemoglobin A1c Calcium Phosphorus 6.00 H Magnesium 2.50 H ALT < 5 L Alkaline Phosphatase 135 H NT-Pro-B Natriuret Pep Total Protein Albumin 3.6 L HDL Cholesterol TSH Salicylates Acetaminophen 08/27/21 08/27/21 08/27/21 11:21 16:05 23:13 WBC Hgb MCH RDW Lymph % (Auto) [place] % (Auto) Lymph # (Auto) [place] # (Auto) Baso # (Auto) Seg Neutrophils % Seg Neutrophils # D-Dimer Sodium Chloride Carbon Dioxide BUN Creatinine Glucose POC Glucose 287 H 321 H 286 H Hemoglobin A1c Calcium Phosphorus Magnesium ALT Alkaline Phosphatase NT-Pro-B Natriuret Pep Total Protein Albumin HDL Cholesterol TSH Salicylates Acetaminophen 08/28/21 08/28/21 08/28/21 05:11 05:29 11:30 WBC Hgb MCH RDW Lymph % (Auto) [place] % (Auto) Lymph # (Auto) [place] # (Auto) Baso # (Auto) Seg Neutrophils % Seg Neutrophils # D-Dimer Sodium 134 L Chloride 91.8 L Carbon Dioxide BUN 79 H Creatinine 8.2 H Glucose 230 H POC Glucose 225 H 190 H Hemoglobin A1c Calcium 10.8 H Phosphorus Magnesium ALT Alkaline Phosphatase NT-Pro-B Natriuret Pep Total Protein Albumin HDL Cholesterol TSH Salicylates Acetaminophen 08/28/21 08/29/21 08/29/21 15:53 00:04 04:29 WBC Hgb MCH 27 L RDW 20.6 H Lymph % (Auto) [place] % (Auto) Lymph # (Auto) [place] # (Auto) Baso # (Auto) Seg Neutrophils % Seg Neutrophils # D-Dimer Sodium Chloride Carbon Dioxide BUN Creatinine Glucose POC Glucose 235 H 223 H Hemoglobin A1c Calcium Phosphorus Magnesium ALT Alkaline Phosphatase NT-Pro-B Natriuret Pep Total Protein Albumin HDL Cholesterol TSH Salicylates Acetaminophen 08/29/21 08/29/21 08/29/21 04:29 05:37 16:14 WBC Hgb MCH RDW Lymph % (Auto) [place] % (Auto) Lymph # (Auto) [place] # (Auto) Baso # (Auto) Seg Neutrophils % Seg Neutrophils # D-Dimer Sodium Chloride Carbon Dioxide BUN Creatinine 9.8 H Glucose POC Glucose 174 H 200 H Hemoglobin A1c Calcium Phosphorus Magnesium ALT Alkaline Phosphatase NT-Pro-B Natriuret Pep Total Protein Albumin HDL Cholesterol TSH Salicylates Acetaminophen 08/30/21 08/30/21 08/30/21 00:10 05:12 05:12 WBC Hgb MCH 27 L RDW 20.2 H Lymph % (Auto) [place] % (Auto) 12.7 H Lymph # (Auto) [place] # (Auto) 1.4 H Baso # (Auto) 0.2 H Seg Neutrophils % Seg Neutrophils # D-Dimer Sodium Chloride 97.5 L Carbon Dioxide BUN 58 H Creatinine 6.9 H Glucose 112 H POC Glucose 111 H Hemoglobin A1c Calcium 10.8 H Phosphorus 6.00 H Magnesium 2.80 H ALT Alkaline Phosphatase 147 H NT-Pro-B Natriuret Pep Total Protein Albumin HDL Cholesterol TSH Salicylates Acetaminophen 08/30/21 08/31/21 08/31/21 16:40 00:27 04:30 WBC Hgb MCH RDW Lymph % (Auto) [place] % (Auto) Lymph # (Auto) [place] # (Auto) Baso # (Auto) Seg Neutrophils % Seg Neutrophils # D-Dimer Sodium Chloride Carbon Dioxide BUN Creatinine Glucose POC Glucose 224 H 200 H 125 H Hemoglobin A1c Calcium Phosphorus Magnesium ALT Alkaline Phosphatase NT-Pro-B Natriuret Pep Total Protein Albumin HDL Cholesterol TSH Salicylates Acetaminophen 09/02/21 09/02/21 09/03/21 06:04 18:25 00:55 WBC Hgb MCH RDW Lymph % (Auto) [place] % (Auto) Lymph # (Auto) [place] # (Auto) Baso # (Auto) Seg Neutrophils % Seg Neutrophils # D-Dimer Sodium Chloride Carbon Dioxide BUN Creatinine Glucose POC Glucose 68 L 134 H 110 H Hemoglobin A1c Calcium Phosphorus Magnesium ALT Alkaline Phosphatase NT-Pro-B Natriuret Pep Total Protein Albumin HDL Cholesterol TSH Salicylates Acetaminophen 09/03/21 09/03/21 09/04/21 05:53 16:10 00:11 WBC Hgb MCH RDW Lymph % (Auto) [place] % (Auto) Lymph # (Auto) [place] # (Auto) Baso # (Auto) Seg Neutrophils % Seg Neutrophils # D-Dimer Sodium Chloride Carbon Dioxide BUN Creatinine Glucose POC Glucose 64 L 60 L 69 L Hemoglobin A1c Calcium Phosphorus Magnesium ALT Alkaline Phosphatase NT-Pro-B Natriuret Pep Total Protein Albumin HDL Cholesterol TSH Salicylates Acetaminophen 09/04/21 09/04/21 09/04/21 06:01 07:29 10:04 WBC Hgb MCH RDW Lymph % (Auto) [place] % (Auto) Lymph # (Auto) [place] # (Auto) Baso # (Auto) Seg Neutrophils % Seg Neutrophils # D-Dimer Sodium Chloride 96.1 L Carbon Dioxide BUN 48 H Creatinine 7.8 H Glucose 102 H POC Glucose 116 H 119 H Hemoglobin A1c Calcium 10.4 H Phosphorus Magnesium ALT Alkaline Phosphatase NT-Pro-B Natriuret Pep Total Protein Albumin HDL Cholesterol TSH Salicylates Acetaminophen 09/04/21 09/04/21 09/05/21 10:59 16:24 00:36 WBC Hgb MCH RDW Lymph % (Auto) [place] % (Auto) Lymph # (Auto) [place] # (Auto) Baso # (Auto) Seg Neutrophils % Seg Neutrophils # D-Dimer Sodium Chloride Carbon Dioxide BUN Creatinine Glucose POC Glucose 137 H 149 H 139 H Hemoglobin A1c Calcium Phosphorus Magnesium ALT Alkaline Phosphatase NT-Pro-B Natriuret Pep Total Protein Albumin HDL Cholesterol TSH Salicylates Acetaminophen 09/05/21 09/05/21 09/05/21 04:57 06:43 16:22 WBC 11.6 H Hgb 9.9 L MCH 27 L RDW 20.4 H Lymph % (Auto) [place] % (Auto) Lymph # (Auto) [place] # (Auto) Baso # (Auto) Seg Neutrophils % Seg Neutrophils # D-Dimer Sodium Chloride Carbon Dioxide BUN Creatinine Glucose POC Glucose 149 H 188 H Hemoglobin A1c Calcium Phosphorus Magnesium ALT Alkaline Phosphatase NT-Pro-B Natriuret Pep Total Protein Albumin HDL Cholesterol TSH Salicylates Acetaminophen 09/05/21 09/06/21 09/06/21 23:42 05:39 05:39 WBC Hgb MCH 27 L RDW 20.2 H Lymph % (Auto) [place] % (Auto) 9.2 H Lymph # (Auto) [place] # (Auto) 1.0 H Baso # (Auto) Seg Neutrophils % Seg Neutrophils # D-Dimer Sodium Chloride 94.2 L Carbon Dioxide BUN 35 H Creatinine 6.3 H Glucose 167 H POC Glucose 223 H Hemoglobin A1c Calcium 10.8 H Phosphorus 5.30 H Magnesium 2.50 H ALT Alkaline Phosphatase 154 H NT-Pro-B Natriuret Pep Total Protein 8.4 H Albumin 3.8 L HDL Cholesterol TSH Salicylates Acetaminophen 09/06/21 09/06/21 09/06/21 07:02 11:50 16:46 WBC Hgb MCH RDW Lymph % (Auto) [place] % (Auto) Lymph # (Auto) [place] # (Auto) Baso # (Auto) Seg Neutrophils % Seg Neutrophils # D-Dimer Sodium Chloride Carbon Dioxide BUN Creatinine Glucose POC Glucose 169 H 158 H 110 H Hemoglobin A1c Calcium Phosphorus Magnesium ALT Alkaline Phosphatase NT-Pro-B Natriuret Pep Total Protein Albumin HDL Cholesterol TSH Salicylates Acetaminophen 09/07/21 09/07/21 09/07/21 00:29 12:57 16:57 WBC Hgb MCH RDW Lymph % (Auto) [place] % (Auto) Lymph # (Auto) [place] # (Auto) Baso # (Auto) Seg Neutrophils % Seg Neutrophils # D-Dimer Sodium Chloride Carbon Dioxide BUN Creatinine Glucose POC Glucose 148 H 146 H 157 H Hemoglobin A1c Calcium Phosphorus Magnesium ALT Alkaline Phosphatase NT-Pro-B Natriuret Pep Total Protein Albumin HDL Cholesterol TSH Salicylates Acetaminophen 09/08/21 09/08/21 09/08/21 05:31 05:31 10:11 WBC Hgb MCH RDW 20.3 H Lymph % (Auto) [place] % (Auto) 9.3 H Lymph # (Auto) [place] # (Auto) Baso # (Auto) Seg Neutrophils % Seg Neutrophils # D-Dimer Sodium Chloride 95.9 L Carbon Dioxide BUN 36 H Creatinine 6.5 H Glucose POC Glucose 106 H Hemoglobin A1c Calcium 10.8 H Phosphorus 5.30 H Magnesium 2.50 H ALT 6 L Alkaline Phosphatase NT-Pro-B Natriuret Pep Total Protein Albumin 3.6 L HDL Cholesterol TSH Salicylates Acetaminophen 09/08/21 09/08/21 09/08/21 11:24 17:15 23:25 WBC Hgb MCH RDW Lymph % (Auto) [place] % (Auto) Lymph # (Auto) [place] # (Auto) Baso # (Auto) Seg Neutrophils % Seg Neutrophils # D-Dimer Sodium Chloride Carbon Dioxide BUN Creatinine Glucose POC Glucose 106 H 107 H 124 H Hemoglobin A1c Calcium Phosphorus Magnesium ALT Alkaline Phosphatase NT-Pro-B Natriuret Pep Total Protein Albumin HDL Cholesterol TSH Salicylates Acetaminophen 09/09/21 09/09/21 09/10/21 05:15 23:32 05:46 WBC Hgb MCH RDW Lymph % (Auto) [place] % (Auto) Lymph # (Auto) [place] # (Auto) Baso # (Auto) Seg Neutrophils % Seg Neutrophils # D-Dimer Sodium Chloride Carbon Dioxide BUN Creatinine Glucose POC Glucose 66 L 148 H 106 H Hemoglobin A1c Calcium Phosphorus Magnesium ALT Alkaline Phosphatase NT-Pro-B Natriuret Pep Total Protein Albumin HDL Cholesterol TSH Salicylates Acetaminophen 09/10/21 09/10/21 09/11/21 17:04 21:12 05:32 WBC Hgb MCH RDW Lymph % (Auto) [place] % (Auto) Lymph # (Auto) [place] # (Auto) Baso # (Auto) Seg Neutrophils % Seg Neutrophils # D-Dimer Sodium Chloride Carbon Dioxide BUN Creatinine Glucose POC Glucose 199 H 178 H 111 H Hemoglobin A1c Calcium Phosphorus Magnesium ALT Alkaline Phosphatase NT-Pro-B Natriuret Pep Total Protein Albumin HDL Cholesterol TSH Salicylates Acetaminophen 09/11/21 09/11/21 09/11/21 11:39 16:37 22:01 WBC Hgb MCH RDW Lymph % (Auto) [place] % (Auto) Lymph # (Auto) [place] # (Auto) Baso # (Auto) Seg Neutrophils % Seg Neutrophils # D-Dimer Sodium Chloride Carbon Dioxide BUN Creatinine Glucose POC Glucose 108 H 174 H 131 H Hemoglobin A1c Calcium Phosphorus Magnesium ALT Alkaline Phosphatase NT-Pro-B Natriuret Pep Total Protein Albumin HDL Cholesterol TSH Salicylates Acetaminophen 09/12/21 09/12/21 09/12/21 06:01 15:43 23:39 WBC Hgb MCH RDW Lymph % (Auto) [place] % (Auto) Lymph # (Auto) [place] # (Auto) Baso # (Auto) Seg Neutrophils % Seg Neutrophils # D-Dimer Sodium Chloride Carbon Dioxide BUN Creatinine Glucose POC Glucose 106 H 129 H 153 H Hemoglobin A1c Calcium Phosphorus Magnesium ALT Alkaline Phosphatase NT-Pro-B Natriuret Pep Total Protein Albumin HDL Cholesterol TSH Salicylates Acetaminophen 09/13/21 09/13/21 05:32 11:56 WBC Hgb MCH RDW Lymph % (Auto) [place] % (Auto) Lymph # (Auto) [place] # (Auto) Baso # (Auto) Seg Neutrophils % Seg Neutrophils # D-Dimer Sodium Chloride Carbon Dioxide BUN Creatinine Glucose POC Glucose 259 H 215 H Hemoglobin A1c Calcium Phosphorus Magnesium ALT Alkaline Phosphatase NT-Pro-B Natriuret Pep Total Protein Albumin HDL Cholesterol TSH Salicylates Acetaminophen Allied health notes reviewed: nursing
[2021-09-13] MEDS: MAGNESIUM HYDROXIDE (MOM) ORAL LIQD UDC PO PRN (13:53)
--- NOTE | 2021-09-13 14:30 | Progress Note ---
Assessment and Plan Assessment and plan: #Right upper extremity AV graft thrombosis #End Stage Renal Disease requiring hemodialysis -s/p AVF declotting 08/26 via IR/Vascular surgery -s/p vascular surgery/ thrombectomy of right arm AV loop graft. -temporary vasc cath removed 08/26 -continue HD per Nephro -avoid nephrotoxic medications; Renally dose medications #DKA (Diabetic Ketoacidosis)-resolved #Type II diabetes, insulin dependent -s/p insulin gtt -Patient with hypoglycemia secondary to reduced oral intake; continue tube feeds -Hgb A1C 10.2% -continue lantus 22U BID, continue SSI -goal glucose 140-180 while inpatient; currently controlled #Sepsisruled out -patient afebrile, WBC normalizing -final blood cultures with NGTD x 5days -s/p IV abx, none needed due to no infectious process found -ID consulted, signed off #Acute Metabolic Encephalopathy-resolved #H/o CVA (cerebral infarction) with left-sided deficits #Generalized weakness #History of depression -Multifactorial, DKA vs azotemia vs infectious process -Awake and tracking and following commands this morning -CT head and MRI brain noted with no acute abnormality -Neurology consulted, appreciated recommendations -c/f seizure, continue Keppra -PRN Haldol for agitation -Fall and safety precaution -Aspiration precaution -Frequent reorientation -Avoid benzodiazepine to reduce the possibility of delirium -Maintenance of sleep-wake cycle -PT/OT/Speech ordered; PT recommending subacute rehabilitations -Psychiatry consulted: Patient Celexa increased #Hypertension -continue home BP medications -PRN Hydralazine and Labetalol for SBP greater than 160 #Elevated D-Dimer #H/o DVT -BLE doppler showed no evidence for acute DVT in either lower extremity. 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 -Per patient's mother, patient has been off coumadin for a couple of years -Continue Heparin SubQ -low suspicion for PE, will order V/Q scan if return of fever, dyspnea -Patient might benefit from PO AC at discharge, wild defer to PCP #Hypothyroidism -continue synthroid #Dysphagia-resolved -Patient failed initial speech eval due to mental status -Discontinue NG tube and tube feeds as patient successfully passed swallow evaluation was necessary. Gastroenterology consulted for PEG tube placement; appreciate recs. GI also agrees with declining PEG tube placement. #GI/ DVT Prophylaxis -PPI- Pepcid -heparin SubQ -SCDs to bilateral lower extremities while in bed #Discharge planning - Patient is pending authorization at a rehab facility. - Case management has been made aware. Updates: The patient's mother ANGELO (Angely Roman) was called, and the possibility of the patient discharging home was brought up with her she prefers SNF placement at this time. SNF declined by insurance company; will need a appeal to restart process History Interval history: No acute events overnight. Patient reports nausea and constipation. Per nursing, the patient has had several bowel movements. She continues to report abdominal pain that is improved with PRN medications. She has no other co mplaints at this time. Hospitalist Physical - Physical exam Narrative exam: GENERAL: Well-developed well-nourished. In no acute distress. HEENT: Normocephalic, atraumatic. CHEST/LUNGS: CTAB on room air HEART/CARDIOVASCULAR: RRR. No murmur, rubs or gallops appreciated. ABDOMEN: +BS. NT/ND. NEURO: No focal motor deficit. Follows all commands. EXTREMITIES: Right upper extremity aVF. No cyanosis, clubbing or edema. PSYCH: Cooperative. - Constitutional Vitals: Temp Pulse Resp BP Pulse Ox 97.6 F 73 16 127/79 97 09/13/21 08:16 09/13/21 07:00 09/13/21 08:16 09/13/21 08:16 09/13/21 10:00 General appearance: Present: no acute distress, well-nourished Results - Labs CBC & Chem 7: 09/08/21 05:31 09/08/21 05:31 Labs: Laboratory Last Values WBC 8.3 K/mm3 (4.5-11.0) 09/08/21 05:31 RBC 4.03 M/mm3 (3.65-5.03) 09/08/21 05:31 Hgb 11.1 gm/dl (10.1-14.3) 09/08/21 05:31 Hct 34.6 % (30.3-42.9) 09/08/21 05:31 MCV 86 fl (79-97) 09/08/21 05:31 MCH 28 pg (28-32) 09/08/21 05:31 MCHC 32 % (30-34) 09/08/21 05:31 RDW 20.3 % (13.2-15.2) H 09/08/21 05:31 Plt Count 164 K/mm3 (140-440) 09/08/21 05:31 Lymph % (Auto) 28.6 % (13.4-35.0) 09/08/21 05:31 [place] % (Auto) 9.3 % (0.0-7.3) H 09/08/21 05:31 Eos % (Auto) 3.4 % (0.0-4.3) 09/08/21 05:31 Baso % (Auto) 1.0 % (0.0-1.8) 09/08/21 05:31 Lymph # (Auto) 2.4 K/mm3 (1.2-5.4) 09/08/21 05:31 Preston # (Auto) 0.8 K/mm3 (0.0-0.8) 09/08/21 05:31 Eos # (Auto) 0.3 K/mm3 (0.0-0.4) 09/08/21 05:31 Baso # (Auto) 0.1 K/mm3 (0.0-0.1) 09/08/21 05:31 Seg Neutrophils % 57.7 % (40.0-70.0) 09/08/21 05:31 Seg Neutrophils # 4.8 K/mm3 (1.8-7.7) 09/08/21 05:31 PT 14.0 Sec. (12.2-14.9) 08/23/21 22:59 INR 0.97 (0.87-1.13) 08/23/21 22:59 APTT 27.9 Sec. (24.2-36.6) 08/23/21 22:59 D-Dimer 2695.37 ng/mlDDU (0-234) H 08/17/21 14:40 Sodium 139 mmol/L (137-145) 09/08/21 05:31 Potassium 3.9 mmol/L (3.6-5.0) 09/08/21 05:31 Chloride 95.9 mmol/L (98-107) L 09/08/21 05:31 Carbon Dioxide 29 mmol/L (22-30) 09/08/21 05:31 Anion Gap 18 mmol/L 09/08/21 05:31 BUN 36 mg/dL (7-17) H 09/08/21 05:31 Creatinine 6.5 mg/dL (0.6-1.2) H 09/08/21 05:31 Estimated GFR 8 ml/min 09/08/21 05:31 BUN/Creatinine Ratio 6 % 09/08/21 05:31 Glucose 78 mg/dL (65-100) 09/08/21 05:31 POC Glucose 215 mg/dL (70-105) H 09/13/21 11:56 Hemoglobin A1c 10.2 % (4-6) H 08/18/21 04:56 Lactic Acid 1.70 mmol/L (0.7-2.0) 08/17/21 02:07 Calcium 10.8 mg/dL (8.4-10.2) H 09/08/21 05:31 Phosphorus 5.30 mg/dL (2.5-4.5) H 09/08/21 05:31 Magnesium 2.50 mg/dL (1.7-2.3) H 09/08/21 05:31 Total Bilirubin 0.30 mg/dL (0.1-1.2) 09/08/21 05:31 AST 13 units/L (5-40) 09/08/21 05:31 ALT 6 units/L (7-56) L 09/08/21 05:31 Alkaline Phosphatase 122 units/L (35-129) 09/08/21 05:31 NT-Pro-B Natriuret Pep 86460 pg/mL (0-450) H 08/17/21 02:07 Total Protein 7.5 g/dL (6.3-8.2) 09/08/21 05:31 Albumin 3.6 g/dL (3.9-5) L 09/08/21 05:31 Albumin/Globulin Ratio 0.9 % 09/08/21 05:31 Triglycerides 128 mg/dL (2-149) 08/17/21 14:40 Cholesterol 128 mg/dL (50-199) 08/17/21 14:40 LDL Cholesterol Direct 69 mg/dL (50-130) 08/17/21 14:40 HDL Cholesterol 30 mg/dL (40-59) L 08/17/21 14:40 Cholesterol/HDL Ratio 4.26 % 08/17/21 14:40 TSH 5.080 mlU/mL (0.270-4.200) H 08/17/21 02:07 Salicylates < 0.3 mg/dL (2.8-20.0) L 08/17/21 02:07 Acetaminophen 5.0 ug/mL (10.0-30.0) L 08/17/21 02:07 Plasma/Serum Alcohol < 0.01 % (0-0.07) 08/17/21 02:07 Coronavirus (PCR) Negative (Negative) 09/11/21 11:05 SARS-CoV-2 (PCR) Negative (Negative) 08/17/21 09:12 Hepatitis A IgM Ab Non-reactive (NonReactive) 08/17/21 14:40 Hep Bs Antigen Non-reactive (Negative) 08/17/21 14:40 Hep B Core IgM Ab Non-reactive (NonReactive) 08/17/21 14:40 Hepatitis C Antibody Non-reactive (NonReactive) 08/17/21 14:40 Blood Type O POSITIVE 08/17/21 17:43 Antibody Screen Negative 08/17/21 17:43 Tomas/IV: Voiding Method Diaper Active Medications - Current Medications Current Medications: Generic Name Dose Route Start Last Admin Trade Name Freq PRN Reason Stop Dose Admin Acetaminophen 650 mg 08/17/21 07:50 08/30/21 20:25 Acetaminophen 325 Mg Tab PO 650 mg Q6H PRN Administration Pain, Mild (1-3) Acetaminophen 650 mg 08/17/21 08:17 08/17/21 14:49 Acetaminophen 650 Mg Rect Supp [place] 650 mg Q4H PRN Administration Pain, Mild (1-3) Albuterol 2.5 mg 08/29/21 20:00 Albuterol 2.5 Mg/3 Ml Nebu IH Q4HRT PRN Shortness Of Breath Amlodipine Besylate 10 mg 08/22/21 11:00 09/13/21 11:04 Amlodipine 10 Mg Tab PO 10 mg QDAY HAM Administration Aspirin 325 mg 09/13/21 10:00 09/13/21 11:04 Aspirin Ec 325 Mg Tab PO 325 mg QDAY HAM Administration Atorvastatin Calcium 40 mg 08/29/21 22:00 09/12/21 21:03 Atorvastatin 40 Mg Tab PO 40 mg QHS HAM Administration Citalopram Hydrobromide 40 mg 09/04/21 10:00 09/13/21 11:04 Citalopram 20 Mg Tab PO 40 mg QDAY HAM Administration Clonidine HCl 0.1 mg 08/29/21 20:00 09/13/21 13:54 Clonidine 0.1 Mg Tab PO 0.1 mg TID HAM Administration Dextrose 50 ml 08/17/21 23:37 Dextrose 50% In Water (25gm) 50 Ml Syringe IV Q30MIN PRN Hypoglycemia Protocol Diphenhydramine HCl 25 mg 09/07/21 09:30 09/12/21 00:06 Diphenhydramine 25 Mg Cap PO 25 mg Q8H PRN Administration Itching Famotidine 20 mg 09/13/21 10:00 09/13/21 11:04 Famotidine 20 Mg Tab PO 20 mg QDAY HAM Administration Haloperidol Lactate 5 mg 08/19/21 12:00 09/01/21 11:41 Haloperidol Lactate 5 Mg/1 Ml Inj IV 5 mg Q6H PRN Administration Agitation Heparin Sodium (Porcine) 5,000 unit 08/17/21 06:00 09/13/21 13:54 Heparin 5,000 Unit/1 Ml Vial SUB-Q 5,000 unit Q8HR HAM Administration Heparin Sodium (Porcine) 3,000 unit 08/17/21 07:41 08/31/21 10:38 Heparin 10,000 Units/10 Ml Vial IV 3,000 unit KATI PRN Administration hemodialysis Hydralazine HCl 100 mg 08/17/21 09:00 09/13/21 13:54 Hydralazine 100 Mg Tab PO 100 mg TID HAM Administration Hydralazine HCl 10 mg 08/17/21 07:56 08/25/21 05:19 Hydralazine 20 Mg/1 Ml Inj IV 10 mg Q4HR PRN Administration Hypertension Hydromorphone HCl 0.25 mg 08/17/21 07:50 09/12/21 20:49 Hydromorphone 0.5 Mg/0.5 Ml Inj IV 0.25 mg Q4H PRN Administration Pain, Moderate (4-6) Hydroxyzine Pamoate 25 mg 09/03/21 14:50 Hydroxyzine Pamoate 25 Mg Cap PO Q6H PRN Anxiety Sodium Chloride 100 mls @ 999 mls/hr 09/11/21 12:37 Nacl 0.9% IV KATI PRN Hypotension Insulin Glargine 15 units 09/09/21 10:00 09/13/21 11:03 Insulin Glargine 100 Units/Ml SUB-Q 15 units BID HAM Administration Insulin Human Lispro 0 unit 09/13/21 11:30 09/13/21 13:54 Insulin Lispro 100 Unit/Ml SUB-Q 4 unit ACHS HAM Administration Protocol Levetiracetam 500 mg 08/20/21 10:00 09/13/21 11:04 Levetiracetam 500 Mg Tab PO 500 mg DAILY HAM Administration Levothyroxine Sodium 125 mcg 08/22/21 06:00 09/13/21 05:01 Levothyroxine 125 Mcg Tab PO 125 mcg QAM@0600 HAM Administration Lidocaine HCl 15 ml 09/05/21 14:00 09/13/21 11:05 Magic Mouthwash 30ml PO 09/13/21 20:01 Not Given TID HAM Losartan Potassium 50 mg 08/17/21 10:00 09/13/21 11:04 Losartan 50 Mg Tab PO 50 mg QDAY HAM Administration Magnesium Hydroxide 30 ml 08/17/21 04:09 09/13/21 13:53 Magnesium Hydroxide (Mom) Oral Liqd Udc PO 30 ml Q4H PRN Administration Constipation Metoprolol Tartrate 100 mg 08/20/21 11:00 09/13/21 11:04 Metoprolol Tartrate 100 Mg Tab PO 100 mg BID HAM Administration Ondansetron HCl 4 mg 08/17/21 04:09 09/13/21 04:15 Ondansetron 4 Mg/2 Ml Inj IV 4 mg Q8H PRN Administration Nausea And Vomiting Phenol 1 spray 09/04/21 09:54 09/06/21 10:13 Phenol 1.4% 177 Ml Bottle MM 1 spray PRN PRN Administration Sore Throat Promethazine HCl 25 mg 09/07/21 20:33 09/13/21 04:57 Promethazine 25 Mg Rect Supp PA 25 mg Q6H PRN Administration Nausea And Vomiting Sevelamer Carbonate 2,400 mg 09/06/21 11:30 09/13/21 11:03 Sevelamer Carbonate 800 Mg Tab PO 2,400 mg AC HAM Administration Sodium Chloride 10 ml 08/17/21 10:00 09/13/21 11:06 Sodium Chloride 0.9% 10 Ml Flush Syringe IV 10 ml BID HAM Administration Sodium Chloride 10 ml 08/17/21 04:09 09/10/21 14:29 Sodium Chloride 0.9% 10 Ml Flush Syringe IV 10 ml PRN PRN Administration LINE FLUSH Zolpidem Tartrate 5 mg 09/05/21 22:00 09/13/21 04:49 Zolpidem 5 Mg Tab PO 5 mg QHS PRN Administration Sleep Nutrition/Malnutrition Assess - Dietary Evaluation Nutrition/Malnutrition Findings: Nutrition Notes Start: 08/17/21 12:51 Freq: Status: Active Protocol: Document 09/12/21 14:12 GABRIEL (Rec: 09/12/21 15:00 GABRIEL [id number]) Nutrition Notes Initial or Follow up Reassessment Current Diagnosis CKD (stage V CKD),Diabetes, Hypertension,Stroke Other Pertinent Diagnosis ESRD+HD, R-UE Thrombectomy & AVF, Hypothyroidism. Current Diet Regular Diet (since D 09/07). Labs/Tests 09/12: N/A. Pertinent Medications 09/12: Levothyroxine, others nutritionally unremarkable. Height 5 ft 8 in Weight 77.8 kg [place] Body Weight (kg) 63.63 BMI 26.0 Weight change and time frame No body weight change in 1 week reported. Weight Status Overweight Subjective/Other Information RD consult for routine F/U on dietary advancement. TF discontinued on 09/07, and diet advanced to PO, Pt's PO intake of meals has been Good (100%), according to ADL notes . OPTOMETRIC TECHNOLOGIST note on 09/07/21 14:28:" Swallowing function was reassessed. She was given pureed, semi solids and solids . She exhibited adequate bolus formation with no evidence of holding nor spillage from the oral cavity. Laryngeal excursion was adequate with a timely swallow reflex of 1 second. No evidence of aspiration was identified with food nor liquids in varying bolus volumes. Patient answered questions appropriately and followed instructions. However, when cognitive function is diminished, she holds the bolus which impacts her nutritional status as well as increasing her risk for aspiration. Nevertheless, on this date, the patient is safe to consume a regular diet with regular liquids. Informed the patient's nurse of assessment findings. No further recommendations. - END OF NOTE. Pt is on Room Air, O2 saturation @ 98%, according to Physical Assessment History notes. Pt is awaiting for SNF or LTAC placement, according to Progress notes. Percent of energy/protein needs met: Prescribed Regular Diet provides for energy/protein needs (2,289 Kcal/89 g) during LOS. Burn Absent Trauma Absent GI Symptoms None Food Allergy No Skin Integrity/Comment Assessment WNL. Current % PO Good (75-100%) Minimum of two criteria No Fluid Accumulation N/A Reduced Manager Managed Care Strength N/A (non-severe) Protein-Calorie Malnutrition N\\A #1 Nutrition Diagnosis Inadequate oral intake Comments: TF discontinued on 09/07, and diet advanced to PO, Pt's PO intake of meals has been Good (100%), according to ADL notes . OPTOMETRIC TECHNOLOGIST note on 09/07/21 14:28:" Swallowing function was reassessed. She was given pureed, semi solids and solids . She exhibited adequate bolus formation with no evidence of holding nor spillage from the oral cavity. Laryngeal excursion was adequate with a timely swallow reflex of 1 second. No evidence of aspiration was identified with food nor liquids in varying bolus volumes. Patient answered questions appropriately and followed instructions. However, when cognitive function is diminished, she holds the bolus which impacts her nutritional status as well as increasing her risk for aspiration. Nevertheless, on this date, the patient is safe to consume a regular diet with regular liquids. Informed the patient's nurse of assessment findings. No further recommendations. - END OF NOTE. Diagnosis Progress(for reassessment Resolved documentation) Is patient on ventilator? No Is Patient Ambulatory and/or Out of Bed No REE-([facility]-confined to bed) 4810.993 Calculation Used for Recommendations [facility] Additional Notes Protein: >1.2 g/Kg AdjBW; >94 g/day. Fluids: 1 ml/Kcal, or as per MD. Nutrition Intervention Change Diet Order: Continue Regular Diet. Nutrition Support: Discontinued. Goal #1 Adjust the dietary intervention to better serve Pt's needs and clinical conditions during LOS. Revisit per MD consult or patient Sign Off request: Additional Comments Continue monitoring food tolerance, %PO intake of meals , and BM.
[2021-09-13] MEDS: HYDROmorphone 0.5 MG/0.5 ML INJ IV PRN (15:16)
[2021-09-14] MEDS: HYDROmorphone 0.5 MG/0.5 ML INJ IV PRN ×4 (00:20→17:00)
[2021-09-14] MEDS: MAGIC MOUTHWASH 30ML PO SCH (03:40)
[2021-09-14] MEDS: HEPARIN 5,000 UNIT/1 ML VIAL SUB-Q SCH ×2 (06:07→15:22)
[2021-09-14] MEDS: LEVOTHYROXINE 125 MCG TAB PO SCH (06:07)
[2021-09-14] MEDS: hydrALAZINE 100 MG TAB PO SCH ×2 (08:00→15:23)
[2021-09-14] MEDS: cloNIDine 0.1 MG TAB PO SCH ×2 (08:08→17:10)
--- NOTE | 2021-09-14 08:12 | Progress Note ---
Assessment and Plan 1. ESRD: Patient is on maintenance HD, MWF schedule. Last outpatient HD 08/12/21. Meds dosage based on GFR. Hemodialysis: 08/17, 08/19, 08/22, 08/24, 08/26, 08/28, 08/31, 09/02, 09/05, 09/07, 09/09, 09/12. HD today. 2. FEN: Metabolic acidosis, s/p HD, monitor. UF with HD as tolerated. Monitor lytes and volume status. 3. Diabetic Hyperosmolar State, POA: S/p Insulin gtt. Per protocol. 4. Malfunctioning hemodialysis access: Patient presented with non functioning hemodialysis access. S/p angioplasty of R arm AVG. Seen by Vascular. 5. Acute Metabolic Encephalopathy, POA: 2/[address] head and MRI brain negative. MS is better. Seen by Neuro. 6. SIRS versus sepsis: S/p Abx. 7. HTN: Adjust meds as needed. Monitor BP. Await placement. Subjective: Patient was seen and examined at the bedside. No new complaint. Examination: General appearance: well-developed, well-nourished, appears stated age, no distress HEENT: ATNC, pupils equal Neck: trachea midline Respiratory: Clear to Auscultation Cardiology: regular, S1S2, no murmur Gastrointestinal: soft, normoactive bowel sounds, not tender, ND Integumentary: no rash Neurologic: AO, L sided weakness Ext: no edema noted Hemodialysis access: R arm AVG Subjective Date of service: 09/14/21 Principal diagnosis: Possible Sepsis; DKA; AMS; h/o CVA left hemiparesis; ESRD on Dialysis; HTN Objective - Vital Signs Vital signs: Vital Signs - 12hr 09/13/21 09/13/21 09/13/21 21:26 21:31 21:32 Temperature 98.7 F Pulse Rate 95 H 95 H 95 H Respiratory 16 Rate Blood Pressure 180/84 180/84 180/84 O2 Sat by Pulse 100 Oximetry 09/13/21 09/13/21 09/14/21 22:00 22:24 04:05 Temperature 98.6 F 98.8 F Pulse Rate 91 H 71 Respiratory 16 Rate Blood Pressure 142/67 150/78 O2 Sat by Pulse 96 97 100 Oximetry - Lab 09/08/21 05:31 09/08/21 05:31 Most recent lab results Calcium 10.8 mg/dL (8.4-10.2) H 09/08/21 05:31 Phosphorus 5.30 mg/dL (2.5-4.5) H 09/08/21 05:31 Magnesium 2.50 mg/dL (1.7-2.3) H 09/08/21 05:31 Medications & Allergies - Medications Allergies/Adverse Reactions: Allergies vancomycin Adverse Reaction (Verified 04/02/13 10:16) Hives Home Medications: Home Medications Medication Instructions Recorded Confirmed Last Taken Type Cinacalcet [Sensipar] 60 mg PO QDAY 08/17/21 08/17/21 Unknown History Gabapentin 100 mg PO Q8HR 08/17/21 08/17/21 Unknown History Albuterol Mdi (or & Nicu Only) 2 puff IH QID PRN 08/29/21 08/29/21 Unknown History [ProAir HFA Inhaler] Cetirizine HCl [Zyrtec 10mg tab] 10 mg PO QDAY 08/29/21 08/29/21 Unknown History Ferric Citrate (Nf) [Auryxia] 210 mg PO TID 08/29/21 08/29/21 Unknown History Fluticasone [Flonase] 2 spray NS QDAY PRN 08/29/21 08/29/21 Unknown History Insulin Aspart (Nf) [NovoLOG 15 units SQ TIDAC 08/29/21 08/29/21 Unknown History Flexpen] Pantoprazole [Protonix TAB] 40 mg PO QDAY 08/29/21 08/29/21 Unknown History Aspirin EC [Ecotrin] 325 mg PO QDAY 30 Days #30 tablet 09/14/21 Unknown Rx AtorvaSTATin [Lipitor] 40 mg PO QHS tablet 09/14/21 Unknown Rx AtorvaSTATin [Lipitor] 40 mg PO QHS 30 Days #30 tab 09/14/21 Unknown Rx Citalopram Hydrobromide [Celexa] 40 mg PO DAILY 30 Days #30 tab 09/14/21 Unknow n Rx Citalopram [Celexa] 40 mg PO QDAY tablet 09/14/21 Unknown Rx Famotidine [Pepcid] 20 mg PO QDAY tablet 09/14/21 Unknown Rx Insulin Glargine [Lantus VIAL] 15 units SUB-Q BID units 09/14/21 Unknown Rx Insulin Glargine [Lantus VIAL] 15 units SUB-Q BID 30 Days #900 09/14/21 Unknown Rx units Levothyroxine [Synthroid] 125 mcg PO QAM@0600 30 Days #30 09/14/21 Unknown Rx tablet Lispro Insulin [HumaLOG] 0 unit SUB-Q ACHS units 09/14/21 Unknown Rx Losartan [Cozaar] 50 mg PO QDAY 30 Days #30 tablet 09/14/21 Unknown Rx Metoprolol [Lopressor TAB] 100 mg PO BID 30 Days #60 tablet 09/14/21 Unknown Rx Sevelamer Carbonate [Renvela] 2,400 mg PO AC 30 Days #270 tablet 09/14/21 Unknown Rx Syrge-Ndl,Ins 0.3 ml Half Carlos 1 each MC BID 30 Days #100 each 09/14/21 Unknown Rx [Insulin Syringe] Zolpidem [Ambien] 5 mg PO QHS PRN tablet 09/14/21 Unknown Rx amLODIPine 10 mg PO DAILY 30 Days #30 tab 09/14/21 Unknown Rx amLODIPine 10 mg PO QDAY tablet 09/14/21 Unknown Rx cloNIDine [Catapres] 0.1 mg PO TID tablet 09/14/21 Unknown Rx cloNIDine [Catapres] 0.1 mg PO TID 30 Days #90 tab 09/14/21 Unknown Rx diphenhydrAMINE [Benadryl CAP] 25 mg PO Q8H PRN capsule 09/14/21 Unknown Rx hydrALAZINE [Apresoline TAB] 100 mg PO TID 30 Days #90 tab 09/14/21 Unknown Rx levETIRAcetam [Keppra TAB] 500 mg PO DAILY 30 Days #30 tablet 09/14/21 Unknown Rx Active Medications: Generic Name Dose Route Start Last Admin Trade Name Freq PRN Reason Stop Dose Admin Acetaminophen 650 mg 08/17/21 07:50 08/30/21 20:25 Acetaminophen 325 Mg Tab PO 650 mg Q6H PRN Administration Pain, Mild (1-3) Acetaminophen 650 mg 08/17/21 08:17 08/17/21 14:49 Acetaminophen 650 Mg Rect Supp [place] 650 mg Q4H PRN Administration Pain, Mild (1-3) Albuterol 2.5 mg 08/29/21 20:00 Albuterol 2.5 Mg/3 Ml Nebu IH Q4HRT PRN Shortness Of Breath Amlodipine Besylate 10 mg 08/22/21 11:00 09/13/21 11:04 Amlodipine 10 Mg Tab PO 10 mg QDAY HAM Administration Aspirin 325 mg 09/13/21 10:00 09/13/21 11:04 Aspirin Ec 325 Mg Tab PO 325 mg QDAY HAM Administration Atorvastatin Calcium 40 mg 08/29/21 22:00 09/13/21 21:32 Atorvastatin 40 Mg Tab PO 40 mg QHS HAM Administration Citalopram Hydrobromide 40 mg 09/04/21 10:00 09/13/21 11:04 Citalopram 20 Mg Tab PO 40 mg QDAY HAM Administration Clonidine HCl 0.1 mg 08/29/21 20:00 09/13/21 21:31 Clonidine 0.1 Mg Tab PO 0.1 mg TID HAM Administration Dextrose 50 ml 08/17/21 23:37 Dextrose 50% In Water (25gm) 50 Ml Syringe IV Q30MIN PRN Hypoglycemia Protocol Diphenhydramine HCl 25 mg 09/07/21 09:30 09/12/21 00:06 Diphenhydramine 25 Mg Cap PO 25 mg Q8H PRN Administration Itching Famotidine 20 mg 09/13/21 10:00 09/13/21 11:04 Famotidine 20 Mg Tab PO 20 mg QDAY HAM Administration Haloperidol Lactate 5 mg 08/19/21 12:00 09/01/21 11:41 Haloperidol Lactate 5 Mg/1 Ml Inj IV 5 mg Q6H PRN Administration Agitation Heparin Sodium (Porcine) 5,000 unit 08/17/21 06:00 09/14/21 06:07 Heparin 5,000 Unit/1 Ml Vial SUB-Q 5,000 unit Q8HR HAM Administration Heparin Sodium (Porcine) 3,000 unit 08/17/21 07:41 08/31/21 10:38 Heparin 10,000 Units/10 Ml Vial IV 3,000 unit KATI PRN Administration hemodialysis Hydralazine HCl 100 mg 08/17/21 09:00 09/13/21 21:32 Hydralazine 100 Mg Tab PO 100 mg TID HAM Administration Hydralazine HCl 10 mg 08/17/21 07:56 08/25/21 05:19 Hydralazine 20 Mg/1 Ml Inj IV 10 mg Q4HR PRN Administration Hypertension Hydromorphone HCl 0.25 mg 08/17/21 07:50 09/14/21 06:07 Hydromorphone 0.5 Mg/0.5 Ml Inj IV 0.25 mg Q4H PRN Administration Pain, Moderate (4-6) Hydroxyzine Pamoate 25 mg 09/03/21 14:50 Hydroxyzine Pamoate 25 Mg Cap PO Q6H PRN Anxiety Sodium Chloride 100 mls @ 999 mls/hr 09/11/21 12:37 Nacl 0.9% IV AKTI PRN Hypotension Insulin Glargine 15 units 09/09/21 10:00 09/13/21 22:50 Insulin Glargine 100 Units/Ml SUB-Q 15 units BID HAM Administration Insulin Human Lispro 0 unit 09/13/21 11:30 09/13/21 23:03 Insulin Lispro 100 Unit/Ml SUB-Q Not Given ACHS [facility] Protocol Levetiracetam 500 mg 08/20/21 10:00 09/13/21 11:04 Levetiracetam 500 Mg Tab PO 500 mg DAILY HAM Administration Levothyroxine Sodium 125 mcg 08/22/21 06:00 09/14/21 06:07 Levothyroxine 125 Mcg Tab PO 125 mcg QAM@0600 HAM Administration Losartan Potassium 50 mg 08/17/21 10:00 09/13/21 11:04 Losartan 50 Mg Tab PO 50 mg QDAY HAM Administration Magnesium Hydroxide 30 ml 08/17/21 04:09 09/13/21 13:53 Magnesium Hydroxide (Mom) Oral Liqd Udc PO 30 ml Q4H PRN Administration Constipation Metoprolol Tartrate 100 mg 08/20/21 11:00 09/13/21 21:32 Metoprolol Tartrate 100 Mg Tab PO 100 mg BID HAM Administration Ondansetron HCl 4 mg 08/17/21 04:09 09/13/21 21:31 Ondansetron 4 Mg/2 Ml Inj IV 4 mg Q8H PRN Administration Nausea And Vomiting Phenol 1 spray 09/04/21 09:54 09/06/21 10:13 Phenol 1.4% 177 Ml Bottle MM 1 spray PRN PRN Administration Sore Throat Promethazine HCl 25 mg 09/07/21 20:33 09/13/21 04:57 Promethazine 25 Mg Rect Supp [place] 25 mg Q6H PRN Administration Nausea And Vomiting Sevelamer Carbonate 2,400 mg 09/06/21 11:30 09/13/21 17:30 Sevelamer Carbonate 800 Mg Tab PO Not Given AC HAM Sodium Chloride 10 ml 08/17/21 10:00 09/13/21 21:33 Sodium Chloride 0.9% 10 Ml Flush Syringe IV 10 ml BID HAM Administration Sodium Chloride 10 ml 08/17/21 04:09 09/10/21 14:29 Sodium Chloride 0.9% 10 Ml Flush Syringe IV 10 ml PRN PRN Administration LINE FLUSH Zolpidem Tartrate 5 mg 09/05/21 22:00 09/13/21 21:31 Zolpidem 5 Mg Tab PO 5 mg QHS PRN Administration Sleep
--- NOTE | 2021-09-14 08:13 | Progress Note ---
Assessment and Plan Assessment and plan: #Right upper extremity AV graft thrombosis #End Stage Renal Disease requiring hemodialysis -s/p AVF declotting 08/26 via IR/Vascular surgery -s/p vascular surgery/ thrombectomy of right arm AV loop graft. -temporary vasc cath removed 08/26 -continue HD per Nephro -avoid nephrotoxic medications; Renally dose medications #DKA (Diabetic Ketoacidosis)-resolved #Type II diabetes, insulin dependent -s/p insulin gtt -Patient with hypoglycemia secondary to reduced oral intake; continue tube feeds -Hgb A1C 10.2% -continue lantus 22U BID, continue SSI -goal glucose 140-180 while inpatient; currently controlled #Sepsisruled out -patient afebrile, WBC normalizing -final blood cultures with NGTD x 5days -s/p IV abx, none needed due to no infectious process found -ID consulted, signed off #Acute Metabolic Encephalopathy-resolved #H/o CVA (cerebral infarction) with left-sided deficits #Generalized weakness #History of depression -Multifactorial, DKA vs azotemia vs infectious process -Awake and tracking and following commands this morning -CT head and MRI brain noted with no acute abnormality -Neurology consulted, appreciated recommendations -c/f seizure, continue Keppra -PRN Haldol for agitation -Fall and safety precaution -Aspiration precaution -Frequent reorientation -Avoid benzodiazepine to reduce the possibility of delirium -Maintenance of sleep-wake cycle -PT/OT/Speech ordered; PT recommending subacute rehabilitations -Psychiatry consulted: Patient Celexa increased #Hypertension -continue home BP medications -PRN Hydralazine and Labetalol for SBP greater than 160 #Elevated D-Dimer #H/o DVT -BLE doppler showed no evidence for acute DVT in either lower extremity. 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 -Per patient's mother, patient has been off coumadin for a couple of years -Continue Heparin SubQ -low suspicion for PE, will order V/Q scan if return of fever, dyspnea -Patient might benefit from PO AC at discharge, wild defer to PCP #Hypothyroidism -continue synthroid #Dysphagia-resolved -Patient failed initial speech eval due to mental status -Discontinue NG tube and tube feeds as patient successfully passed swallow evaluation was necessary. Gastroenterology consulted for PEG tube placement; appreciate recs. GI also agrees with declining PEG tube placement. #GI/ DVT Prophylaxis -PPI- Pepcid -heparin SubQ -SCDs to bilateral lower extremities while in bed #Discharge planning - Patient is pending authorization at a rehab facility. - Case management has been made aware. Updates: The patient's mother ANGELO (Angely Roman) was called, and the possibility of the patient discharging home was brought up with her she prefers SNF placement at this time. SNF declined by insurance company; will need a appeal to restart process History Interval history: No acute events overnight. Patient reports chronic abdominal pain. She has no other complaints at this time. Awaiting dialysis today. Hospitalist Physical - Physical exam Narrative exam: GENERAL: Well-developed well-nourished. In no acute distress. HEENT: Normocephalic, atraumatic. CHEST/LUNGS: CTAB on room air HEART/CARDIOVASCULAR: RRR. No murmur, rubs or gallops appreciated. ABDOMEN: +BS. NT/ND. NEURO: No focal motor deficit. Follows all commands. EXTREMITIES: Right upper extremity aVF. No cyanosis, clubbing or edema. PSYCH: Cooperative. - Constitutional Vitals: Temp Pulse Resp BP Pulse Ox 98.8 F 71 16 150/78 100 09/14/21 04:05 09/14/21 04:05 09/14/21 04:05 09/14/21 04:05 09/14/21 04:05 General appearance: Present: no acute distress, well-nourished Results - Labs CBC & Chem 7: 09/08/21 05:31 09/08/21 05:31 Labs: Laboratory Last Values WBC 8.3 K/mm3 (4.5-11.0) 09/08/21 05:31 RBC 4.03 M/mm3 (3.65-5.03) 09/08/21 05:31 Hgb 11.1 gm/dl (10.1-14.3) 09/08/21 05:31 Hct 34.6 % (30.3-42.9) 09/08/21 05:31 MCV 86 fl (79-97) 09/08/21 05:31 MCH 28 pg (28-32) 09/08/21 05:31 MCHC 32 % (30-34) 09/08/21 05:31 RDW 20.3 % (13.2-15.2) H 09/08/21 05:31 Plt Count 164 K/mm3 (140-440) 09/08/21 05:31 Lymph % (Auto) 28.6 % (13.4-35.0) 09/08/21 05:31 [place] % (Auto) 9.3 % (0.0-7.3) H 09/08/21 05:31 Eos % (Auto) 3.4 % (0.0-4.3) 09/08/21 05:31 Baso % (Auto) 1.0 % (0.0-1.8) 09/08/21 05:31 Lymph # (Auto) 2.4 K/mm3 (1.2-5.4) 09/08/21 05:31 [place] # (Auto) 0.8 K/mm3 (0.0-0.8) 09/08/21 05:31 Eos # (Auto) 0.3 K/mm3 (0.0-0.4) 09/08/21 05:31 Baso # (Auto) 0.1 K/mm3 (0.0-0.1) 09/08/21 05:31 Seg Neutrophils % 57.7 % (40.0-70.0) 09/08/21 05:31 Seg Neutrophils # 4.8 K/mm3 (1.8-7.7) 09/08/21 05:31 PT 14.0 Sec. (12.2-14.9) 08/23/21 22:59 INR 0.97 (0.87-1.13) 08/23/21 22:59 APTT 27.9 Sec. (24.2-36.6) 08/23/21 22:59 D-Dimer 2695.37 ng/mlDDU (0-234) H 08/17/21 14:40 Sodium 139 mmol/L (137-145) 09/08/21 05:31 Potassium 3.9 mmol/L (3.6-5.0) 09/08/21 05:31 Chloride 95.9 mmol/L (98-107) L 09/08/21 05:31 Carbon Dioxide 29 mmol/L (22-30) 09/08/21 05:31 Anion Gap 18 mmol/L 09/08/21 05:31 BUN 36 mg/dL (7-17) H 09/08/21 05:31 Creatinine 6.5 mg/dL (0.6-1.2) H 09/08/21 05:31 Estimated GFR 8 ml/min 09/08/21 05:31 BUN/Creatinine Ratio 6 % 09/08/21 05:31 Glucose 78 mg/dL (65-100) 09/08/21 05:31 POC Glucose 172 mg/dL (70-105) H 09/13/21 21:51 Hemoglobin A1c 10.2 % (4-6) H 08/18/21 04:56 Lactic Acid 1.70 mmol/L (0.7-2.0) 08/17/21 02:07 Calcium 10.8 mg/dL (8.4-10.2) H 09/08/21 05:31 Phosphorus 5.30 mg/dL (2.5-4.5) H 09/08/21 05:31 Magnesium 2.50 mg/dL (1.7-2.3) H 09/08/21 05:31 Total Bilirubin 0.30 mg/dL (0.1-1.2) 09/08/21 05:31 AST 13 units/L (5-40) 09/08/21 05:31 ALT 6 units/L (7-56) L 09/08/21 05:31 Alkaline Phosphatase 122 units/L (35-129) 09/08/21 05:31 NT-Pro-B Natriuret Pep 62696 pg/mL (0-450) H 08/17/21 02:07 Total Protein 7.5 g/dL (6.3-8.2) 09/08/21 05:31 Albumin 3.6 g/dL (3.9-5) L 09/08/21 05:31 Albumin/Globulin Ratio 0.9 % 09/08/21 05:31 Triglycerides 128 mg/dL (2-149) 08/17/21 14:40 Cholesterol 128 mg/dL (50-199) 08/17/21 14:40 LDL Cholesterol Direct 69 mg/dL (50-130) 08/17/21 14:40 HDL Cholesterol 30 mg/dL (40-59) L 08/17/21 14:40 Cholesterol/HDL Ratio 4.26 % 08/17/21 14:40 TSH 5.080 mlU/mL (0.270-4.200) H 08/17/21 02:07 Salicylates < 0.3 mg/dL (2.8-20.0) L 08/17/21 02:07 Acetaminophen 5.0 ug/mL (10.0-30.0) L 08/17/21 02:07 Plasma/Serum Alcohol < 0.01 % (0-0.07) 08/17/21 02:07 Coronavirus (PCR) Negative (Negative) 09/11/21 11:05 SARS-CoV-2 (PCR) Negative (Negative) 08/17/21 09:12 Hepatitis A IgM Ab Non-reactive (NonReactive) 08/17/21 14:40 Hep Bs Antigen Non-reactive (Negative) 08/17/21 14:40 Hep B Core IgM Ab Non-reactive (NonReactive) 08/17/21 14:40 Hepatitis C Antibody Non-reactive (NonReactive) 08/17/21 14:40 Blood Type O POSITIVE 08/17/21 17:43 Antibody Screen Negative 08/17/21 17:43 Tomas/IV: Voiding Method Diaper Active Medications - Current Medications Current Medications: Generic Name Dose Route Start Last Admin Trade Name Freq PRN Reason Stop Dose Admin Acetaminophen 650 mg 08/17/21 07:50 08/30/21 20:25 Acetaminophen 325 Mg Tab PO 650 mg Q6H PRN Administration Pain, Mild (1-3) Acetaminophen 650 mg 08/17/21 08:17 08/17/21 14:49 Acetaminophen 650 Mg Rect Supp [place] 650 mg Q4H PRN Administration Pain, Mild (1-3) Albuterol 2.5 mg 08/29/21 20:00 Albuterol 2.5 Mg/3 Ml Nebu IH Q4HRT PRN Shortness Of Breath Amlodipine Besylate 10 mg 08/22/21 11:00 09/13/21 11:04 Amlodipine 10 Mg Tab PO 10 mg QDAY HAM Administration Aspirin 325 mg 09/13/21 10:00 09/13/21 11:04 Aspirin Ec 325 Mg Tab PO 325 mg QDAY HAM Administration Atorvastatin Calcium 40 mg 08/29/21 22:00 09/13/21 21:32 Atorvastatin 40 Mg Tab PO 40 mg QHS HAM Administration Citalopram Hydrobromide 40 mg 09/04/21 10:00 09/13/21 11:04 Citalopram 20 Mg Tab PO 40 mg QDAY HAM Administration Clonidine HCl 0.1 mg 08/29/21 20:00 09/13/21 21:31 Clonidine 0.1 Mg Tab PO 0.1 mg TID HAM Administration Dextrose 50 ml 08/17/21 23:37 Dextrose 50% In Water (25gm) 50 Ml Syringe IV Q30MIN PRN Hypoglycemia Protocol Diphenhydramine HCl 25 mg 09/07/21 09:30 09/12/21 00:06 Diphenhydramine 25 Mg Cap PO 25 mg Q8H PRN Administration Itching Famotidine 20 mg 09/13/21 10:00 09/13/21 11:04 Famotidine 20 Mg Tab PO 20 mg QDAY HAM Administration Haloperidol Lactate 5 mg 08/19/21 12:00 09/01/21 11:41 Haloperidol Lactate 5 Mg/1 Ml Inj IV 5 mg Q6H PRN Administration Agitation Heparin Sodium (Porcine) 5,000 unit 08/17/21 06:00 09/14/21 06:07 Heparin 5,000 Unit/1 Ml Vial SUB-Q 5,000 unit Q8HR HAM Administration Heparin Sodium (Porcine) 3,000 unit 08/17/21 07:41 08/31/21 10:38 Heparin 10,000 Units/10 Ml Vial IV 3,000 unit KATI PRN Administration hemodialysis Hydralazine HCl 100 mg 08/17/21 09:00 09/13/21 21:32 Hydralazine 100 Mg Tab PO 100 mg TID HAM Administration Hydralazine HCl 10 mg 08/17/21 07:56 08/25/21 05:19 Hydralazine 20 Mg/1 Ml Inj IV 10 mg Q4HR PRN Administration Hypertension Hydromorphone HCl 0.25 mg 08/17/21 07:50 09/14/21 06:07 Hydromorphone 0.5 Mg/0.5 Ml Inj IV 0.25 mg Q4H PRN Administration Pain, Moderate (4-6) Hydroxyzine Pamoate 25 mg 09/03/21 14:50 Hydroxyzine Pamoate 25 Mg Cap PO Q6H PRN Anxiety Sodium Chloride 100 mls @ 999 mls/hr 09/11/21 12:37 Nacl 0.9% IV KATI PRN Hypotension Insulin Glargine 15 units 09/09/21 10:00 09/13/21 22:50 Insulin Glargine 100 Units/Ml SUB-Q 15 units BID HAM Administration Insulin Human Lispro 0 unit 09/13/21 11:30 09/13/21 23:03 Insulin Lispro 100 Unit/Ml SUB-Q Not Given ACHS [facility] Protocol Levetiracetam 500 mg 08/20/21 10:00 09/13/21 11:04 Levetiracetam 500 Mg Tab PO 500 mg DAILY HAM Administration Levothyroxine Sodium 125 mcg 08/22/21 06:00 09/14/21 06:07 Levothyroxine 125 Mcg Tab PO 125 mcg QAM@0600 HAM Administration Losartan Potassium 50 mg 08/17/21 10:00 09/13/21 11:04 Losartan 50 Mg Tab PO 50 mg QDAY HAM Administration Magnesium Hydroxide 30 ml 08/17/21 04:09 09/13/21 13:53 Magnesium Hydroxide (Mom) Oral Liqd Udc PO 30 ml Q4H PRN Administration Constipation Metoprolol Tartrate 100 mg 08/20/21 11:00 09/13/21 21:32 Metoprolol Tartrate 100 Mg Tab PO 100 mg BID HAM Administration Ondansetron HCl 4 mg 08/17/21 04:09 09/13/21 21:31 Ondansetron 4 Mg/2 Ml Inj IV 4 mg Q8H PRN Administration Nausea And Vomiting Phenol 1 spray 09/04/21 09:54 09/06/21 10:13 Phenol 1.4% 177 Ml Bottle MM 1 spray PRN PRN Administration Sore Throat Promethazine HCl 25 mg 09/07/21 20:33 09/13/21 04:57 Promethazine 25 Mg Rect Supp [place] 25 mg Q6H PRN Administration Nausea And Vomiting Sevelamer Carbonate 2,400 mg 09/06/21 11:30 09/13/21 17:30 Sevelamer Carbonate 800 Mg Tab PO Not Given AC HAM Sodium Chloride 10 ml 08/17/21 10:00 09/13/21 21:33 Sodium Chloride 0.9% 10 Ml Flush Syringe IV 10 ml BID HAM Administration Sodium Chloride 10 ml 08/17/21 04:09 09/10/21 14:29 Sodium Chloride 0.9% 10 Ml Flush Syringe IV 10 ml PRN PRN Administration LINE FLUSH Zolpidem Tartrate 5 mg 09/05/21 22:00 09/13/21 21:31 Zolpidem 5 Mg Tab PO 5 mg QHS PRN Administration Sleep Nutrition/Malnutrition Assess - Dietary Evaluation Nutrition/Malnutrition Findings: Nutrition Notes Start: 08/17/21 12:51 Freq: Status: Active Protocol: Document 09/12/21 14:12 GABRIEL (Rec: 09/12/21 15:00 GABRIEL [id number]) Nutrition Notes Initial or Follow up Reassessment Current Diagnosis CKD (stage V CKD),Diabetes, Hypertension,Stroke Other Pertinent Diagnosis ESRD+HD, R-UE Thrombectomy & AVF, Hypothyroidism. Current Diet Regular Diet (since D 09/07). Labs/Tests 09/12: N/A. Pertinent Medications 09/12: Levothyroxine, others nutritionally unremarkable. Height 5 ft 8 in Weight 77.8 kg [place] Body Weight (kg) 63.63 BMI 26.0 Weight change and time frame No body weight change in 1 week reported. Weight Status Overweight Subjective/Other Information RD consult for routine F/U on dietary advancement. TF discontinued on 09/07, and diet advanced to PO, Pt's PO intake of meals has been Good (100%), according to ADL notes . [employer] note on 09/07/21 14:28:" Swallowing function was reassessed. She was given pureed, semi solids and solids . She exhibited adequate bolus formation with no evidence of holding nor spillage from the oral cavity. Laryngeal excursion was adequate with a timely swallow reflex of 1 second. No evidence of aspiration was identified with food nor liquids in varying bolus volumes. Patient answered questions appropriately and followed instructions. However, when cognitive function is diminished, she holds the bolus which impacts her nutritional status as well as increasing her risk for aspiration. Nevertheless, on this date, the patient is safe to consume a regular diet with regular liquids. Informed the patient's nurse of assessment findings. No further recommendations. - END OF NOTE. Pt is on Room Air, O2 saturation @ 98%, according to Physical Assessment History notes. Pt is awaiting for SNF or LTAC placement, according to Progress notes. Percent of energy/protein needs met: Prescribed Regular Diet provides for energy/protein needs (2,289 Kcal/89 g) during LOS. Burn Absent Trauma Absent GI Symptoms None Food Allergy No Skin Integrity/Comment Assessment WNL. Current % PO Good (75-100%) Minimum of two criteria No Fluid Accumulation N/A Reduced Patient Scheduler Strength N/A (non-severe) Protein-Calorie Malnutrition N\\A #1 Nutrition Diagnosis Inadequate oral intake Comments: TF discontinued on 09/07, and diet advanced to PO, Pt's PO intake of meals has been Good (100%), according to ADL notes . [employer] note on 09/07/21 14:28:" Swallowing function was reassessed. She was given pureed, semi solids and solids . She exhibited adequate bolus formation with no evidence of holding nor spillage from the oral cavity. Laryngeal excursion was adequate with a timely swallow reflex of 1 second. No evidence of aspiration was identified with food nor liquids in varying bolus volumes. Patient answered questions appropriately and followed instructions. However, when cognitive function is diminished, she holds the bolus which impacts her nutritional status as well as increasing her risk for aspiration. Nevertheless, on this date, the patient is safe to consume a regular diet with regular liquids. Informed the patient's nurse of assessment findings. No further recommendations. - END OF NOTE. Diagnosis Progress(for reassessment Resolved documentation) Is patient on ventilator? No Is Patient Ambulatory and/or Out of Bed No REE-([place]-confined to bed) [phone] Calculation Used for Recommendations [facility] Additional Notes Protein: >1.2 g/Kg AdjBW; >94 g/day. Fluids: 1 ml/Kcal, or as per MD. Nutrition Intervention Change Diet Order: Continue Regular Diet. Nutrition Support: Discontinued. Goal #1 Adjust the dietary intervention to better serve Pt's needs and clinical conditions during LOS. Revisit per MD consult or patient Sign Off request: Additional Comments Continue monitoring food tolerance, %PO intake of meals , and BM.
--- NOTE | 2021-09-14 08:32 | Progress Note ---
Assessment and Plan 41-year-old female with known history of CVA, end-stage renal disease on dialysis on Mondays, Wednesdays and Fridays, diabetes mellitus brought into the emergency room accompanied by family for evaluation of changes in mental status which was said to have started at about 8 PM the day before coming to ER. Blood glucose was said to have been checked at home and reading was said to be high. There has been no nausea or vomiting, no diarrhea no complaints of abdominal pain. No chest pain or shortness of breath. Patient was said to have missed a dialysis on Sunday because she had not been feeling quite well. Work-up in the emergency room , labs shows blood glucose of 533, anion gap of 28, BUN of 61 and creatinine of 10.3. CT of the head reveals no acute abnormality. Patient has been started on IV fluid and insulin drip. She was closely monitored in the intensive care unit. Past Medical History: dialysis, DVT, ESRD, hypertension, migraines, stroke Past Surgical History: No surgical history Social history: no significant social history Allergic to Vancomycin. Patient awake. Patient is on room air. O2 saturation running 98%. No complaint of chest pain, shortness of breath . Patient afebrile. No leukocytosis. Blood pressure 181/57, Pulse 75 , Respirations 18. Patients last blood sugur 172. Monitor blood sugur closely. Recommend to repeat anion gap. Chest xray 08/17/21 reported is poor inspiration. No significant pulmonary or pleural abnormality. No pneumothorax. Venous doppler studies Bilateral 08/17/21 reported No sonographic evidence for acute DVT in either lower extremity. 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 Patient is on S/C Heparin, Famotidine, Albuterol inhaler. - Patient Problems (1) DKA (diabetic ketoacidosis) Current Visit: Yes Status: Acute Qualifiers: Diabetes mellitus type: type 1 Diabetes mellitus complication detail: wit hout coma Qualified Code(s): E10.10 - Type 1 diabetes mellitus with ketoa cidosis without coma Plan to address problem: Last blood sugur 172. Monitor blood sugurs closely. Recommend to repeat BMP with anion gap. Management as per primary care. (2) End stage renal disease on dialysis Current Visit: Yes Status: Acute Plan to address problem: Patient is on Hemodialysis. Management as per nephrology. (3) Acute ischemic stroke Current Visit: No Status: Acute Plan to address problem: Management as per primary care and neurology. (4) HTN (hypertension), malignant Current Visit: No Status: Acute Plan to address problem: Patient is on Metaprolol, Amalodipine, Hydralagine and catapress. Blood pressure 181/57. Management as per primary care. (5) DVT (deep venous thrombosis) Current Visit: No Status: Chronic Plan to address problem: Venous doppler studies Bilateral 08/17/21 reported No sonographic evidence for acute DVT in either lower extremity. 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 Patient is on S/C Heparin. (6) Hypothyroidism Current Visit: No Status: Chronic Plan to address problem: Patient is on Levothyroxine. Management as per primary care. Subjective Date of service: 09/14/21 Principal diagnosis: Possible Sepsis; DKA; AMS; h/o CVA left hemiparesis; ESRD on Dialysis; HTN Interval history: 41-year-old female with known history of CVA, end-stage renal disease on dialysis on Mondays, Wednesdays and Fridays, diabetes mellitus brought into the emergency room accompanied by family for evaluation of changes in mental status which was said to have started at about 8 PM the day before coming to ER. Blood glucose was said to have been checked at home and reading was said to be high. There has been no nausea or vomiting, no diarrhea no complaints of abdominal pain. No chest pain or shortness of breath. Patient was said to have missed a dialysis on Sunday because she had not been feeling quite well. Work-up in the emergency room , labs shows blood glucose of 533, anion gap of 28, BUN of 61 and creatinine of 10.3. CT of the head reveals no acute abnormality. Patient has been started on IV fluid and insulin drip. She was closely monitored in the intensive care unit. Past Medical History: dialysis, DVT, ESRD, hypertension, migraines, stroke Past Surgical History: No surgical history Social history: no significant social history Allergic to Vancomycin. Patient awake. Patient is on room air. O2 saturation running 98%. No complaint of chest pain, shortness of breath . Patient afebrile. No leukocytosis. Blood pressure 181/57, Pulse 75 , Respirations 18. Patients last blood sugur 172. Monitor blood sugur closely. Recommend to repeat anion gap. Chest xray 08/17/21 reported is poor inspiration. No significant pulmonary or pleural abnormality. No pneumothorax. Venous doppler studies Bilateral 08/17/21 reported No sonographic evidence for acute DVT in either lower extremity. 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 Patient is on S/C Heparin, Famotidine, Albuterol inhaler. Objective Vital Signs - 12hr 09/13/21 09/13/21 09/13/21 21:26 21:31 21:32 Temperature 98.7 F Pulse Rate 95 H 95 H 95 H Respiratory 16 Rate Blood Pressure 180/84 180/84 180/84 O2 Sat by Pulse 100 Oximetry 09/13/21 09/13/21 09/14/21 22:00 22:24 04:05 Temperature 98.6 F 98.8 F Pulse Rate 91 H 71 Respiratory 16 Rate Blood Pressure 142/67 150/78 O2 Sat by Pulse 96 97 100 Oximetry Constitutional: no acute distress, alert, other (middle aged obese female with normal respiratory effort at rest) Eyes: non-icteric ENT: oropharynx moist Neck: supple, no lymphadenopathy, no JVD Effort: normal Ascultation: Bilateral: diminished breath sounds Percussion: Bilateral: not dull Cardiovascular: regular rate and rhythm, other (S1,S2) Gastrointestinal: normoactive bowel sounds, soft, non-tender, non-distended (protuberant), other (obese) Integumentary: normal Extremities: no cyanosis, no edema, pulses normal, no ischemia or petechiae Neurologic: normal mental status, non-focal exam (grossly), pupils equal and round, CN II-XII normal Psychiatric: mood appropriate, affect normal CBC and BMP: 09/08/21 05:31 09/08/21 05:31 ABG, PT/INR, D-dimer: PT/INR, D-dimer PT 14.0 Sec. (12.2-14.9) 08/23/21 22:59 INR 0.97 (0.87-1.13) 08/23/21 22:59 D-Dimer 2695.37 ng/mlDDU (0-234) H 08/17/21 14:40 Abnormal lab findings: Abnormal Labs 08/17/21 08/17/21 08/17/21 00:33 00:33 02:07 WBC Hgb MCH RDW 19.7 H Lymph % (Auto) 10.5 L [place] % (Auto) Lymph # (Auto) 1.1 L [place] # (Auto) Baso # (Auto) Seg Neutrophils % 79.1 H Seg Neutrophils # 8.6 H D-Dimer Sodium 132 L 134 L Chloride 87.8 L 88.4 L Carbon Dioxide 21 L BUN 61 H 61 H Creatinine 10.1 H 10.3 H Glucose 594 H* 533 H* POC Glucose Hemoglobin A1c Calcium Phosphorus Magnesium ALT < 5 L Alkaline Phosphatase 182 H NT-Pro-B Natriuret Pep 81878 H Total Protein Albumin HDL Cholesterol TSH Salicylates Acetaminophen 08/17/21 08/17/21 08/17/21 02:07 02:07 02:07 WBC Hgb MCH RDW Lymph % (Auto) [place] % (Auto) Lymph # (Auto) [place] # (Auto) Baso # (Auto) Seg Neutrophils % Seg Neutrophils # D-Dimer Sodium Chloride Carbon Dioxide BUN Creatinine Glucose POC Glucose Hemoglobin A1c Calcium Phosphorus Magnesium ALT Alkaline Phosphatase NT-Pro-B Natriuret Pep Total Protein Albumin HDL Cholesterol TSH 5.080 H Salicylates < 0.3 L Acetaminophen 5.0 L 08/17/21 08/17/21 08/17/21 04:20 04:20 05:09 WBC Hgb MCH RDW Lymph % (Auto) [place] % (Auto) Lymph # (Auto) [place] # (Auto) Baso # (Auto) Seg Neutrophils % Seg Neutrophils # D-Dimer Sodium 136 L Chloride 90.9 L Carbon Dioxide BUN 61 H Creatinine 10.4 H Glucose 351 H POC Glucose 298 H Hemoglobin A1c Calcium Phosphorus 6.20 H Magnesium ALT Alkaline Phosphatase NT-Pro-B Natriuret Pep Total Protein Albumin HDL Cholesterol TSH Salicylates Acetaminophen 08/17/21 08/17/21 08/17/21 09:58 10:53 13:14 WBC Hgb MCH RDW Lymph % (Auto) [place] % (Auto) Lymph # (Auto) [place] # (Auto) Baso # (Auto) Seg Neutrophils % Seg Neutrophils # D-Dimer Sodium Chloride Carbon Dioxide BUN Creatinine Glucose POC Glucose 139 H 162 H 145 H Hemoglobin A1c Calcium Phosphorus Magnesium ALT Alkaline Phosphatase NT-Pro-B Natriuret Pep Total Protein Albumin HDL Cholesterol TSH Salicylates Acetaminophen 08/17/21 08/17/21 08/17/21 14:40 14:40 14:40 WBC Hgb MCH RDW Lymph % (Auto) [place] % (Auto) Lymph # (Auto) [place] # (Auto) Baso # (Auto) Seg Neutrophils % Seg Neutrophils # D-Dimer 2695.37 H Sodium Chloride 96.7 L Carbon Dioxide BUN 63 H Creatinine 10.7 H Glucose 145 H POC Glucose Hemoglobin A1c Calcium Phosphorus Magnesium ALT Alkaline Phosphatase NT-Pro-B Natriuret Pep Total Protein Albumin HDL Cholesterol 30 L TSH Salicylates Acetaminophen 08/17/21 08/17/21 08/17/21 14:40 16:45 17:47 WBC Hgb MCH RDW Lymph % (Auto) [place] % (Auto) Lymph # (Auto) [place] # (Auto) Baso # (Auto) Seg Neutrophils % Seg Neutrophils # D-Dimer Sodium Chloride 96.2 L Carbon Dioxide BUN 44 H Creatinine 7.2 H Glucose 167 H POC Glucose 136 H 165 H Hemoglobin A1c Calcium Phosphorus Magnesium ALT Alkaline Phosphatase NT-Pro-B Natriuret Pep Total Protein Albumin HDL Cholesterol TSH Salicylates Acetaminophen 08/17/21 08/17/21 08/17/21 18:01 21:01 22:40 WBC Hgb MCH RDW Lymph % (Auto) [place] % (Auto) Lymph # (Auto) [place] # (Auto) Baso # (Auto) Seg Neutrophils % Seg Neutrophils # D-Dimer Sodium Chloride 97.1 L 96.4 L Carbon Dioxide BUN 39 H 40 H Creatinine 8.0 H 8.5 H Glucose 122 H 109 H POC Glucose 172 H Hemoglobin A1c Calcium Phosphorus Magnesium ALT Alkaline Phosphatase NT-Pro-B Natriuret Pep Total Protein Albumin HDL Cholesterol TSH Salicylates Acetaminophen 08/17/21 08/18/21 08/18/21 22:40 02:13 04:56 WBC Hgb MCH 27 L RDW 19.7 H Lymph % (Auto) [place] % (Auto) Lymph # (Auto) [place] # (Auto) Baso # (Auto) Seg Neutrophils % Seg Neutrophils # D-Dimer Sodium Chloride 96.8 L Carbon Dioxide BUN 44 H Creatinine 9.3 H Glucose 170 H POC Glucose 190 H Hemoglobin A1c Calcium Phosphorus 6.70 H Magnesium ALT Alkaline Phosphatase NT-Pro-B Natriuret Pep Total Protein Albumin HDL Cholesterol TSH Salicylates Acetaminophen 08/18/21 08/18/21 08/18/21 04:56 04:56 17:01 WBC Hgb MCH 27 L RDW 19.7 H Lymph % (Auto) [place] % (Auto) 9.7 H Lymph # (Auto) [place] # (Auto) Baso # (Auto) Seg Neutrophils % Seg Neutrophils # D-Dimer Sodium Chloride Carbon Dioxide BUN Creatinine Glucose POC Glucose 228 H Hemoglobin A1c 10.2 H Calcium Phosphorus Magnesium ALT Alkaline Phosphatase NT-Pro-B Natriuret Pep Total Protein Albumin HDL Cholesterol TSH Salicylates Acetaminophen 08/18/21 08/19/21 08/19/21 23:58 04:37 04:37 WBC Hgb MCH 27 L RDW 19.5 H Lymph % (Auto) [place] % (Auto) Lymph # (Auto) [place] # (Auto) Baso # (Auto) Seg Neutrophils % Seg Neutrophils # D-Dimer Sodium Chloride 96.7 L Carbon Dioxide 21 L BUN 57 H Creatinine 10.2 H Glucose 151 H POC Glucose 192 H Hemoglobin A1c Calcium Phosphorus Magnesium ALT Alkaline Phosphatase NT-Pro-B Natriuret Pep Total Protein Albumin HDL Cholesterol TSH Salicylates Acetaminophen 08/19/21 08/19/21 08/20/21 17:46 22:59 04:24 WBC Hgb MCH RDW Lymph % (Auto) [place] % (Auto) Lymph # (Auto) [place] # (Auto) Baso # (Auto) Seg Neutrophils % Seg Neutrophils # D-Dimer Sodium 133 L Chloride 87.9 L Carbon Dioxide 15 L BUN 33 H Creatinine 7.3 H Glucose 365 H POC Glucose 217 H 282 H Hemoglobin A1c Calcium Phosphorus 6.50 H Magnesium ALT Alkaline Phosphatase NT-Pro-B Natriuret Pep Total Protein Albumin HDL Cholesterol TSH Salicylates Acetaminophen 08/20/21 08/20/21 08/20/21 06:07 07:51 15:37 WBC Hgb MCH RDW Lymph % (Auto) [place] % (Auto) Lymph # (Auto) [place] # (Auto) Baso # (Auto) Seg Neutrophils % Seg Neutrophils # D-Dimer Sodium Chloride Carbon Dioxide BUN Creatinine Glucose POC Glucose 398 H 308 H 247 H Hemoglobin A1c Calcium Phosphorus Magnesium ALT Alkaline Phosphatase NT-Pro-B Natriuret Pep Total Protein Albumin HDL Cholesterol TSH Salicylates Acetaminophen 08/20/21 08/21/21 08/21/21 23:22 04:45 05:07 WBC Hgb MCH RDW Lymph % (Auto) [place] % (Auto) Lymph # (Auto) [place] # (Auto) Baso # (Auto) Seg Neutrophils % Seg Neutrophils # D-Dimer Sodium 134 L Chloride 92.9 L Carbon Dioxide BUN 48 H Creatinine 8.0 H Glucose 389 H POC Glucose 316 H 407 H Hemoglobin A1c Calcium 10.6 H Phosphorus Magnesium ALT Alkaline Phosphatase NT-Pro-B Natriuret Pep Total Protein Albumin HDL Cholesterol TSH Salicylates Acetaminophen 08/21/21 08/21/21 08/21/21 11:37 15:52 23:44 WBC Hgb MCH RDW Lymph % (Auto) [place] % (Auto) Lymph # (Auto) [place] # (Auto) Baso # (Auto) Seg Neutrophils % Seg Neutrophils # D-Dimer Sodium Chloride Carbon Dioxide BUN Creatinine Glucose POC Glucose 244 H 325 H 221 H Hemoglobin A1c Calcium Phosphorus Magnesium ALT Alkaline Phosphatase NT-Pro-B Natriuret Pep Total Protein Albumin HDL Cholesterol TSH Salicylates Acetaminophen 08/22/21 08/22/21 08/23/21 06:06 12:27 00:37 WBC Hgb MCH RDW Lymph % (Auto) [place] % (Auto) Lymph # (Auto) [place] # (Auto) Baso # (Auto) Seg Neutrophils % Seg Neutrophils # D-Dimer Sodium Chloride Carbon Dioxide BUN Creatinine Glucose POC Glucose 224 H 247 H 341 H Hemoglobin A1c Calcium Phosphorus Magnesium ALT Alkaline Phosphatase NT-Pro-B Natriuret Pep Total Protein Albumin HDL Cholesterol TSH Salicylates Acetaminophen 08/23/21 08/23/21 08/23/21 04:20 05:37 11:56 WBC Hgb MCH RDW Lymph % (Auto) [place] % (Auto) Lymph # (Auto) [place] # (Auto) Baso # (Auto) Seg Neutrophils % Seg Neutrophils # D-Dimer Sodium Chloride 94.4 L Carbon Dioxide BUN 49 H Creatinine 7.7 H Glucose 201 H POC Glucose 210 H 162 H Hemoglobin A1c Calcium 10.9 H Phosphorus Magnesium ALT Alkaline Phosphatase NT-Pro-B Natriuret Pep Total Protein Albumin HDL Cholesterol TSH Salicylates Acetaminophen 08/23/21 08/23/21 08/23/21 17:45 22:58 22:59 WBC 12.2 H Hgb MCH 26 L RDW 20.3 H Lymph % (Auto) [place] % (Auto) Lymph # (Auto) [place] # (Auto) Baso # (Auto) Seg Neutrophils % Seg Neutrophils # D-Dimer Sodium Chloride Carbon Dioxide BUN Creatinine Glucose POC Glucose 211 H 218 H Hemoglobin A1c Calcium Phosphorus Magnesium ALT Alkaline Phosphatase NT-Pro-B Natriuret Pep Total Protein Albumin HDL Cholesterol TSH Salicylates Acetaminophen 08/23/21 08/24/21 08/24/21 22:59 04:23 04:23 WBC 15.4 H Hgb MCH 27 L RDW 19.8 H Lymph % (Auto) [place] % (Auto) 13.0 H Lymph # (Auto) [place] # (Auto) 2.0 H Baso # (Auto) 0.2 H Seg Neutrophils % Seg Neutrophils # 9.8 H D-Dimer Sodium 136 L Chloride 93.0 L Carbon Dioxide BUN 73 H Creatinine 8.7 H 9.2 H Glucose 145 H POC Glucose Hemoglobin A1c Calcium 10.7 H Phosphorus 6.30 H Magnesium 2.70 H ALT 6 L Alkaline Phosphatase 157 H NT-Pro-B Natriuret Pep Total Protein Albumin 3.7 L HDL Cholesterol TSH Salicylates Acetaminophen 08/24/21 08/24/21 08/24/21 05:09 11:20 18:28 WBC Hgb MCH RDW Lymph % (Auto) [place] % (Auto) Lymph # (Auto) [place] # (Auto) Baso # (Auto) Seg Neutrophils % Seg Neutrophils # D-Dimer Sodium Chloride Carbon Dioxide BUN Creatinine Glucose POC Glucose 155 H 110 H 182 H Hemoglobin A1c Calcium Phosphorus Magnesium ALT Alkaline Phosphatase NT-Pro-B Natriuret Pep Total Protein Albumin HDL Cholesterol TSH Salicylates Acetaminophen 08/25/21 08/25/21 08/25/21 00:15 04:44 11:28 WBC 11.3 H Hgb MCH 27 L RDW 20.4 H Lymph % (Auto) [place] % (Auto) Lymph # (Auto) [place] # (Auto) Baso # (Auto) Seg Neutrophils % Seg Neutrophils # D-Dimer Sodium Chloride Carbon Dioxide BUN Creatinine Glucose POC Glucose 247 H 189 H Hemoglobin A1c Calcium Phosphorus Magnesium ALT Alkaline Phosphatase NT-Pro-B Natriuret Pep Total Protein Albumin HDL Cholesterol TSH Salicylates Acetaminophen 08/25/21 08/25/21 08/26/21 16:42 23:29 05:22 WBC Hgb MCH RDW Lymph % (Auto) [place] % (Auto) Lymph # (Auto) [place] # (Auto) Baso # (Auto) Seg Neutrophils % Seg Neutrophils # D-Dimer Sodium Chloride Carbon Dioxide BUN Creatinine 10.0 H Glucose POC Glucose 169 H 213 H Hemoglobin A1c Calcium Phosphorus Magnesium ALT Alkaline Phosphatase NT-Pro-B Natriuret Pep Total Protein Albumin HDL Cholesterol TSH Salicylates Acetaminophen 08/26/21 08/26/21 08/26/21 06:12 11:47 23:33 WBC Hgb MCH RDW Lymph % (Auto) [place] % (Auto) Lymph # (Auto) [place] # (Auto) Baso # (Auto) Seg Neutrophils % Seg Neutrophils # D-Dimer Sodium Chloride Carbon Dioxide BUN Creatinine Glucose POC Glucose 191 H 197 H 197 H Hemoglobin A1c Calcium Phosphorus Magnesium ALT Alkaline Phosphatase NT-Pro-B Natriuret Pep Total Protein Albumin HDL Cholesterol TSH Salicylates Acetaminophen 08/27/21 08/27/21 08/27/21 06:02 06:02 06:17 WBC Hgb MCH 27 L RDW 20.1 H Lymph % (Auto) [place] % (Auto) 14.2 H Lymph # (Auto) [place] # (Auto) 1.4 H Baso # (Auto) Seg Neutrophils % Seg Neutrophils # D-Dimer Sodium 134 L Chloride 93.8 L Carbon Dioxide BUN 56 H Creatinine 6.4 H Glucose 253 H POC Glucose 250 H Hemoglobin A1c Calcium Phosphorus 6.00 H Magnesium 2.50 H ALT < 5 L Alkaline Phosphatase 135 H NT-Pro-B Natriuret Pep Total Protein Albumin 3.6 L HDL Cholesterol TSH Salicylates Acetaminophen 08/27/21 08/27/21 08/27/21 11:21 16:05 23:13 WBC Hgb MCH RDW Lymph % (Auto) [place] % (Auto) Lymph # (Auto) [place] # (Auto) Baso # (Auto) Seg Neutrophils % Seg Neutrophils # D-Dimer Sodium Chloride Carbon Dioxide BUN Creatinine Glucose POC Glucose 287 H 321 H 286 H Hemoglobin A1c Calcium Phosphorus Magnesium ALT Alkaline Phosphatase NT-Pro-B Natriuret Pep Total Protein Albumin HDL Cholesterol TSH Salicylates Acetaminophen 08/28/21 08/28/21 08/28/21 05:11 05:29 11:30 WBC Hgb MCH RDW Lymph % (Auto) [place] % (Auto) Lymph # (Auto) [place] # (Auto) Baso # (Auto) Seg Neutrophils % Seg Neutrophils # D-Dimer Sodium 134 L Chloride 91.8 L Carbon Dioxide BUN 79 H Creatinine 8.2 H Glucose 230 H POC Glucose 225 H 190 H Hemoglobin A1c Calcium 10.8 H Phosphorus Magnesium ALT Alkaline Phosphatase NT-Pro-B Natriuret Pep Total Protein Albumin HDL Cholesterol TSH Salicylates Acetaminophen 08/28/21 08/29/21 08/29/21 15:53 00:04 04:29 WBC Hgb MCH 27 L RDW 20.6 H Lymph % (Auto) [place] % (Auto) Lymph # (Auto) [place] # (Auto) Baso # (Auto) Seg Neutrophils % Seg Neutrophils # D-Dimer Sodium Chloride Carbon Dioxide BUN Creatinine Glucose POC Glucose 235 H 223 H Hemoglobin A1c Calcium Phosphorus Magnesium ALT Alkaline Phosphatase NT-Pro-B Natriuret Pep Total Protein Albumin HDL Cholesterol TSH Salicylates Acetaminophen 08/29/21 08/29/21 08/29/21 04:29 05:37 16:14 WBC Hgb MCH RDW Lymph % (Auto) [place] % (Auto) Lymph # (Auto) [place] # (Auto) Baso # (Auto) Seg Neutrophils % Seg Neutrophils # D-Dimer Sodium Chloride Carbon Dioxide BUN Creatinine 9.8 H Glucose POC Glucose 174 H 200 H Hemoglobin A1c Calcium Phosphorus Magnesium ALT Alkaline Phosphatase NT-Pro-B Natriuret Pep Total Protein Albumin HDL Cholesterol TSH Salicylates Acetaminophen 08/30/21 08/30/21 08/30/21 00:10 05:12 05:12 WBC Hgb MCH 27 L RDW 20.2 H Lymph % (Auto) [place] % (Auto) 12.7 H Lymph # (Auto) [place] # (Auto) 1.4 H Baso # (Auto) 0.2 H Seg Neutrophils % Seg Neutrophils # D-Dimer Sodium Chloride 97.5 L Carbon Dioxide BUN 58 H Creatinine 6.9 H Glucose 112 H POC Glucose 111 H Hemoglobin A1c Calcium 10.8 H Phosphorus 6.00 H Magnesium 2.80 H ALT Alkaline Phosphatase 147 H NT-Pro-B Natriuret Pep Total Protein Albumin HDL Cholesterol TSH Salicylates Acetaminophen 08/30/21 08/31/21 08/31/21 16:40 00:27 04:30 WBC Hgb MCH RDW Lymph % (Auto) [place] % (Auto) Lymph # (Auto) [place] # (Auto) Baso # (Auto) Seg Neutrophils % Seg Neutrophils # D-Dimer Sodium Chloride Carbon Dioxide BUN Creatinine Glucose POC Glucose 224 H 200 H 125 H Hemoglobin A1c Calcium Phosphorus Magnesium ALT Alkaline Phosphatase NT-Pro-B Natriuret Pep Total Protein Albumin HDL Cholesterol TSH Salicylates Acetaminophen 09/02/21 09/02/21 09/03/21 06:04 18:25 00:55 WBC Hgb MCH RDW Lymph % (Auto) [place] % (Auto) Lymph # (Auto) [place] # (Auto) Baso # (Auto) Seg Neutrophils % Seg Neutrophils # D-Dimer Sodium Chloride Carbon Dioxide BUN Creatinine Glucose POC Glucose 68 L 134 H 110 H Hemoglobin A1c Calcium Phosphorus Magnesium ALT Alkaline Phosphatase NT-Pro-B Natriuret Pep Total Protein Albumin HDL Cholesterol TSH Salicylates Acetaminophen 09/03/21 09/03/21 09/04/21 05:53 16:10 00:11 WBC Hgb MCH RDW Lymph % (Auto) [place] % (Auto) Lymph # (Auto) [place] # (Auto) Baso # (Auto) Seg Neutrophils % Seg Neutrophils # D-Dimer Sodium Chloride Carbon Dioxide BUN Creatinine Glucose POC Glucose 64 L 60 L 69 L Hemoglobin A1c Calcium Phosphorus Magnesium ALT Alkaline Phosphatase NT-Pro-B Natriuret Pep Total Protein Albumin HDL Cholesterol TSH Salicylates Acetaminophen 09/04/21 09/04/21 09/04/21 06:01 07:29 10:04 WBC Hgb MCH RDW Lymph % (Auto) [place] % (Auto) Lymph # (Auto) [place] # (Auto) Baso # (Auto) Seg Neutrophils % Seg Neutrophils # D-Dimer Sodium Chloride 96.1 L Carbon Dioxide BUN 48 H Creatinine 7.8 H Glucose 102 H POC Glucose 116 H 119 H Hemoglobin A1c Calcium 10.4 H Phosphorus Magnesium ALT Alkaline Phosphatase NT-Pro-B Natriuret Pep Total Protein Albumin HDL Cholesterol TSH Salicylates Acetaminophen 09/04/21 09/04/21 09/05/21 10:59 16:24 00:36 WBC Hgb MCH RDW Lymph % (Auto) [place] % (Auto) Lymph # (Auto) [place] # (Auto) Baso # (Auto) Seg Neutrophils % Seg Neutrophils # D-Dimer Sodium Chloride Carbon Dioxide BUN Creatinine Glucose POC Glucose 137 H 149 H 139 H Hemoglobin A1c Calcium Phosphorus Magnesium ALT Alkaline Phosphatase NT-Pro-B Natriuret Pep Total Protein Albumin HDL Cholesterol TSH Salicylates Acetaminophen 09/05/21 09/05/21 09/05/21 04:57 06:43 16:22 WBC 11.6 H Hgb 9.9 L MCH 27 L RDW 20.4 H Lymph % (Auto) [place] % (Auto) Lymph # (Auto) [place] # (Auto) Baso # (Auto) Seg Neutrophils % Seg Neutrophils # D-Dimer Sodium Chloride Carbon Dioxide BUN Creatinine Glucose POC Glucose 149 H 188 H Hemoglobin A1c Calcium Phosphorus Magnesium ALT Alkaline Phosphatase NT-Pro-B Natriuret Pep Total Protein Albumin HDL Cholesterol TSH Salicylates Acetaminophen 09/05/21 09/06/21 09/06/21 23:42 05:39 05:39 WBC Hgb MCH 27 L RDW 20.2 H Lymph % (Auto) [place] % (Auto) 9.2 H Lymph # (Auto) [place] # (Auto) 1.0 H Baso # (Auto) Seg Neutrophils % Seg Neutrophils # D-Dimer Sodium Chloride 94.2 L Carbon Dioxide BUN 35 H Creatinine 6.3 H Glucose 167 H POC Glucose 223 H Hemoglobin A1c Calcium 10.8 H Phosphorus 5.30 H Magnesium 2.50 H ALT Alkaline Phosphatase 154 H NT-Pro-B Natriuret Pep Total Protein 8.4 H Albumin 3.8 L HDL Cholesterol TSH Salicylates Acetaminophen 09/06/21 09/06/21 09/06/21 07:02 11:50 16:46 WBC Hgb MCH RDW Lymph % (Auto) [place] % (Auto) Lymph # (Auto) [place] # (Auto) Baso # (Auto) Seg Neutrophils % Seg Neutrophils # D-Dimer Sodium Chloride Carbon Dioxide BUN Creatinine Glucose POC Glucose 169 H 158 H 110 H Hemoglobin A1c Calcium Phosphorus Magnesium ALT Alkaline Phosphatase NT-Pro-B Natriuret Pep Total Protein Albumin HDL Cholesterol TSH Salicylates Acetaminophen 09/07/21 09/07/21 09/07/21 00:29 12:57 16:57 WBC Hgb MCH RDW Lymph % (Auto) [place] % (Auto) Lymph # (Auto) [place] # (Auto) Baso # (Auto) Seg Neutrophils % Seg Neutrophils # D-Dimer Sodium Chloride Carbon Dioxide BUN Creatinine Glucose POC Glucose 148 H 146 H 157 H Hemoglobin A1c Calcium Phosphorus Magnesium ALT Alkaline Phosphatase NT-Pro-B Natriuret Pep Total Protein Albumin HDL Cholesterol TSH Salicylates Acetaminophen 09/08/21 09/08/21 09/08/21 05:31 05:31 10:11 WBC Hgb MCH RDW 20.3 H Lymph % (Auto) [place] % (Auto) 9.3 H Lymph # (Auto) [place] # (Auto) Baso # (Auto) Seg Neutrophils % Seg Neutrophils # D-Dimer Sodium Chloride 95.9 L Carbon Dioxide BUN 36 H Creatinine 6.5 H Glucose POC Glucose 106 H Hemoglobin A1c Calcium 10.8 H Phosphorus 5.30 H Magnesium 2.50 H ALT 6 L Alkaline Phosphatase NT-Pro-B Natriuret Pep Total Protein Albumin 3.6 L HDL Cholesterol TSH Salicylates Acetaminophen 09/08/21 09/08/21 09/08/21 11:24 17:15 23:25 WBC Hgb MCH RDW Lymph % (Auto) [place] % (Auto) Lymph # (Auto) [place] # (Auto) Baso # (Auto) Seg Neutrophils % Seg Neutrophils # D-Dimer Sodium Chloride Carbon Dioxide BUN Creatinine Glucose POC Glucose 106 H 107 H 124 H Hemoglobin A1c Calcium Phosphorus Magnesium ALT Alkaline Phosphatase NT-Pro-B Natriuret Pep Total Protein Albumin HDL Cholesterol TSH Salicylates Acetaminophen 09/09/21 09/09/21 09/10/21 05:15 23:32 05:46 WBC Hgb MCH RDW Lymph % (Auto) [place] % (Auto) Lymph # (Auto) [place] # (Auto) Baso # (Auto) Seg Neutrophils % Seg Neutrophils # D-Dimer Sodium Chloride Carbon Dioxide BUN Creatinine Glucose POC Glucose 66 L 148 H 106 H Hemoglobin A1c Calcium Phosphorus Magnesium ALT Alkaline Phosphatase NT-Pro-B Natriuret Pep Total Protein Albumin HDL Cholesterol TSH Salicylates Acetaminophen 09/10/21 09/10/21 09/11/21 17:04 21:12 05:32 WBC Hgb MCH RDW Lymph % (Auto) [place] % (Auto) Lymph # (Auto) [place] # (Auto) Baso # (Auto) Seg Neutrophils % Seg Neutrophils # D-Dimer Sodium Chloride Carbon Dioxide BUN Creatinine Glucose POC Glucose 199 H 178 H 111 H Hemoglobin A1c Calcium Phosphorus Magnesium ALT Alkaline Phosphatase NT-Pro-B Natriuret Pep Total Protein Albumin HDL Cholesterol TSH Salicylates Acetaminophen 09/11/21 09/11/21 09/11/21 11:39 16:37 22:01 WBC Hgb MCH RDW Lymph % (Auto) [place] % (Auto) Lymph # (Auto) [place] # (Auto) Baso # (Auto) Seg Neutrophils % Seg Neutrophils # D-Dimer Sodium Chloride Carbon Dioxide BUN Creatinine Glucose POC Glucose 108 H 174 H 131 H Hemoglobin A1c Calcium Phosphorus Magnesium ALT Alkaline Phosphatase NT-Pro-B Natriuret Pep Total Protein Albumin HDL Cholesterol TSH Salicylates Acetaminophen 09/12/21 09/12/21 09/12/21 06:01 15:43 23:39 WBC Hgb MCH RDW Lymph % (Auto) [place] % (Auto) Lymph # (Auto) [place] # (Auto) Baso # (Auto) Seg Neutrophils % Seg Neutrophils # D-Dimer Sodium Chloride Carbon Dioxide BUN Creatinine Glucose POC Glucose 106 H 129 H 153 H Hemoglobin A1c Calcium Phosphorus Magnesium ALT Alkaline Phosphatase NT-Pro-B Natriuret Pep Total Protein Albumin HDL Cholesterol TSH Salicylates Acetaminophen 09/13/21 09/13/21 09/13/21 05:32 11:56 16:34 WBC Hgb MCH RDW Lymph % (Auto) [place] % (Auto) Lymph # (Auto) [place] # (Auto) Baso # (Auto) Seg Neutrophils % Seg Neutrophils # D-Dimer Sodium Chloride Carbon Dioxide BUN Creatinine Glucose POC Glucose 259 H 215 H 177 H Hemoglobin A1c Calcium Phosphorus Magnesium ALT Alkaline Phosphatase NT-Pro-B Natriuret Pep Total Protein Albumin HDL Cholesterol TSH Salicylates Acetaminophen 09/13/21 21:51 WBC Hgb MCH RDW Lymph % (Auto) [place] % (Auto) Lymph # (Auto) [place] # (Auto) Baso # (Auto) Seg Neutrophils % Seg Neutrophils # D-Dimer Sodium Chloride Carbon Dioxide BUN Creatinine Glucose POC Glucose 172 H Hemoglobin A1c Calcium Phosphorus Magnesium ALT Alkaline Phosphatase NT-Pro-B Natriuret Pep Total Protein Albumin HDL Cholesterol TSH Salicylates Acetaminophen Allied health notes reviewed: nursing
[2021-09-14] MEDS: INSULIN GLARGINE 100 UNITS/ML SUB-Q SCH (10:09)
[2021-09-14] MEDS: METOPROLOL TARTRATE 100 MG TAB PO SCH (10:10)
--- NOTE | 2021-09-14 13:58 | Discharge Summary ---
Providers - Providers Date of Admission: 08/17/21 03:49 Date of discharge: 09/14/21 Attending physician: TIAGO LOVE MD 08/17/21 04:09 Consult to Dietitian/Nutrition [CONS] Routine Physician Instructions: Reason For Exam: Reason for Consult: Diet education Consult to Physician [CONS] Routine Comment: Consulting Provider: RADHA ZHOU Physician Instructions: Reason For Exam: DKA- ON INSULIN DRIP 08/17/21 04:15 Consult to Physician [CONS] Routine Comment: Consulting Provider: SUZANNE CHAWLA Physician Instructions: Reason For Exam: ESRD ON DIALYSIS- MON,SUN,Sun08/17/21 08:00 Consult to Physician [CONS] Routine Comment: Consulting Provider: RHIANNON CERVANTES Physician Instructions: Reason For Exam: sepsis 08/17/21 09:10 Consult to Physician [CONS] Routine Comment: Consulting Provider: ROSITA BUCKLEY Physician Instructions: Reason For Exam: Encephalopathy 08/17/21 12:44 Consult to Physician [CONS] Routine Comment: called office/ regi 08/18/21 Consulting Provider: ROEL CARY Physician Instructions: Reason For Exam: AV-Fistula eval and treat 08/18/21 17:05 Occupational Therapy Evaluate and Treat [CONS] Routine Comment: Reason For Exam: Debility Physical Therapy Evaluation and Treat [CONS] Routine Comment: Reason For Exam: Debility Speech Therapy Evaluation and Treat [CONS] Routine Reason For Exam: Speech/swallow eval and treat 08/19/21 11:20 Consult to Dietitian/Nutrition [CONS] Routine Physician Instructions: Reason For Exam: Reason for Consult: Write/Manage Tube Feeding 08/20/21 11:35 Physical Therapy Evaluation and Treat [CONS] Routine Comment: Reason For Exam: Debility 08/24/21 07:46 Speech Therapy Evaluation and Treat [CONS] Stat Reason For Exam: swallow evaluation 08/30/21 07:56 Speech Therapy Evaluation and Treat [CONS] Stat Reason For Exam: swallow evalution with improved mentation 09/03/21 08:11 Consult to Mental Health [CONS] Routine Reason For Exam: patient with underlying psych issues 09/03/21 08:14 Consult to Dietitian/Nutrition [CONS] Routine Physician Instructions: Assess nutrtn needs, initiate, modify, manage TF Reason For Exam: Reason for Consult: Write/Manage Tube Feeding Reason for Consult: Write/Manage Tube Feeding 09/07/21 10:29 Consult to Physician [CONS] Routine Comment: Consulting Provider: DARRIAN GARCIA Physician Instructions: Reason For Exam: PEG placement 09/07/21 13:45 Speech Therapy Evaluation and Treat [CONS] Stat Reason For Exam: NGT; placement Primary care physician: [employer]ATOR Hospitalization Reason for admission: DKA, Acute metabolic encephalopathy Condition: Serious Hospital course: Patient is a 41-year-old male with history of CVA, DVT, hypertension and ESRD on HD who presented in diabetic ketoacidosis. She was started on insulin drip and admitted to ICU for further care. Her mental status did not improve despite closing of anion gap. Initial CT of the head was negative. Nephrology was consulted for inpatient HD. MRI of the brain was also unremarkable for acute abnormality. Neurology was consulted. EEG showed diffuse slowing. She was started on Keppra empirically. It was found that the patient's AV fistula clotted and a Vas-Cath was placed for temporary HD access. Vascular surgery was consulted for clotted AV fistula. On August 26 right upper extremity fistula was declotted and she was dialyzed using the AV fistula afterward. Vas-Cath was removed. Patient was evaluated several times by speech therapy due to waxing and waning mental status. Patient eventually declined PEG tube placement and was able to resume medications and nutrition by mouth. Physical therapy evaluated the patient and recommended subacute rehab placement. Once a bed was secured, patient was discharged to subacute rehab facility. Disposition: [facility] Final Discharge Diagnosis (Prints w/discharge instructions): Right upper extremity AV graft thrombosis. End-stage renal disease requiring hemodialysis. Diabetic ketoacidosis. Type 2 diabetes, insulin-dependent. Sepsis ruled out. Acute metabolic encephalopathy. History of CVA with left-sided deficits. Generalized weakness. History of depression. Hypertension. Elevated D-dimer. History of deep vein thrombosis. Hypothyroidism. Dysphagia Time spent for discharge: 35 minutes Core Measure Documentation - Palliative Care Palliative Care/ Comfort Measures: Not Applicable - Core Measures Any of the following diagnoses?: history only Exam - Physical Exam Narrative exam: GENERAL: Well-developed well-nourished. In no acute distress. HEENT: Normocephalic, atraumatic. CHEST/LUNGS: CTAB on room air HEART/CARDIOVASCULAR: RRR. No murmur, rubs or gallops appreciated. ABDOMEN: +BS. NT/ND. NEURO: No focal motor deficit. Follows all commands. EXTREMITIES: Right upper extremity aVF. No cyanosis, clubbing or edema. PSYCH: Cooperative. - Constitutional Vitals: Temp Pulse Resp BP Pulse Ox 98.0 F 73 18 133/39 98 09/14/21 10:10 09/14/21 11:45 09/14/21 10:10 09/14/21 11:45 09/14/21 10:10 Plan Care Plan Goals: Please follow with your primary care provider. Please make sure to resume dialysis at your normal outpatient schedule. Please make sure you take all medications as prescribed. Follow up with: PRIMARY CARE, [Primary Care Provider] - 3-5 Days Prescriptions: AtorvaSTATin [Lipitor] 40 mg PO QHS 30 Days #30 tab amLODIPine 10 mg PO DAILY 30 Days #30 tab hydrALAZINE [Apresoline TAB] 100 mg PO TID 30 Days #90 tab cloNIDine [Catapres] 0.1 mg PO TID 30 Days #90 tab Citalopram Hydrobromide [Celexa] 40 mg PO DAILY 30 Days #30 tab Losartan [Cozaar] 50 mg PO QDAY 30 Days #30 tablet Aspirin EC [Ecotrin] 325 mg PO QDAY 30 Days #30 tablet Syrge-Ndl,Ins 0.3 ml Half Carlos [Insulin Syringe] 1 each MC BID 30 Days #100 each levETIRAcetam [Keppra TAB] 500 mg PO DAILY 30 Days #30 tablet Insulin Glargine [Lantus VIAL] 15 units SUB-Q BID 30 Days #900 units Metoprolol [Lopressor TAB] 100 mg PO BID 30 Days #60 tablet Sevelamer Carbonate [Renvela] 2,400 mg PO AC 30 Days #270 tablet Levothyroxine [Synthroid] 125 mcg PO QAM@0600 30 Days #30 tablet Other Discharge Orders: Glucometer (Amb) Location: None Selected Glucometer supplies[Amb] Location: None Selected
[2021-09-14] MEDS: ONDANSETRON 4 MG/2 ML INJ IV PRN (15:11)
[2021-09-14] MEDS: ASPIRIN EC 325 MG TAB PO SCH (15:24)
[2021-09-14] MEDS: CITALOPRAM 20 MG TAB PO SCH (15:24)
[2021-09-14] MEDS: FAMOTIDINE 20 MG TAB PO SCH (15:24)
[2021-09-14] MEDS: LOSARTAN 50 MG TAB PO SCH (15:24)
[2021-09-14] MEDS: levETIRAcetam 500 MG TAB PO SCH (15:24)
[2021-09-14] MEDS: amLODIPine 10 MG TAB PO SCH (15:25)
[2021-09-14] MEDS: INSULIN LISPRO 100 UNIT/ML SUB-Q SCH ×2 (17:05→17:06)
[2021-09-14] MEDS: SEVELAMER CARBONATE 800 MG TAB PO SCH (17:07)
[2021-09-14 17:18] VITALS: BP 178/90
== END 2021-09-14 17:00 | DRG 252 ==
LOC: ED 22:02 → CC1 08-17 03:49 → 4A 08-19 20:09 → 3A 09-13 14:22
PROVIDERS: ADMIT Internal Medicine Geriatric Medicine; ATTEND Student in an Organized Health Care Education/Training Program
PROC: 06HY33Z Insertion of Infusion Device into Lower Vein, Percutaneous Approach (ICD-10-PCS; 2021-08-17)
PROC: B54BZZA Ultrasonography of Right Lower Extremity Veins, Guidance (ICD-10-PCS; 2021-08-17)
PROC: 5A1D70Z Performance of Urinary Filtration, Intermittent, Less than 6 Hours Per Day (ICD-10-PCS; 2021-08-17)
PROC: 5A1D70Z Performance of Urinary Filtration, Intermittent, Less than 6 Hours Per Day (ICD-10-PCS; 2021-08-19)
PROC: 5A1D70Z Performance of Urinary Filtration, Intermittent, Less than 6 Hours Per Day (ICD-10-PCS; 2021-08-22)
PROC: 05CY3ZZ Extirpation of Matter from Upper Vein, Percutaneous Approach (ICD-10-PCS; principal; 2021-08-23)
PROC: 05753ZZ Dilation of Right Subclavian Vein, Percutaneous Approach (ICD-10-PCS; 2021-08-23)
PROC: 057Y3ZZ Dilation of Upper Vein, Percutaneous Approach (ICD-10-PCS; 2021-08-23)
PROC: 05773ZZ Dilation of Right Axillary Vein, Percutaneous Approach (ICD-10-PCS; 2021-08-23)
PROC: 3E03317 Introduction of Other Thrombolytic into Peripheral Vein, Percutaneous Approach (ICD-10-PCS; 2021-08-23)
PROC: 03C53ZZ Extirpation of Matter from Right Axillary Artery, Percutaneous Approach (ICD-10-PCS; 2021-08-23)
PROC: 03753ZZ Dilation of Right Axillary Artery, Percutaneous Approach (ICD-10-PCS; 2021-08-23)
PROC: 5A1D70Z Performance of Urinary Filtration, Intermittent, Less than 6 Hours Per Day (ICD-10-PCS; 2021-08-24)
PROC: 5A1D70Z Performance of Urinary Filtration, Intermittent, Less than 6 Hours Per Day (ICD-10-PCS; 2021-08-26)
PROC: 05CY3ZZ Extirpation of Matter from Upper Vein, Percutaneous Approach (ICD-10-PCS; 2021-08-26)
PROC: 057Y3ZZ Dilation of Upper Vein, Percutaneous Approach (ICD-10-PCS; 2021-08-26)
PROC: B51W1ZZ Fluoroscopy of Dialysis Shunt/Fistula using Low Osmolar Contrast (ICD-10-PCS; 2021-08-26)
PROC: 5A1D70Z Performance of Urinary Filtration, Intermittent, Less than 6 Hours Per Day (ICD-10-PCS; 2021-08-29)
PROC: 5A1D70Z Performance of Urinary Filtration, Intermittent, Less than 6 Hours Per Day (ICD-10-PCS; 2021-08-31)
PROC: 5A1D70Z Performance of Urinary Filtration, Intermittent, Less than 6 Hours Per Day (ICD-10-PCS; 2021-09-02)
PROC: 5A1D70Z Performance of Urinary Filtration, Intermittent, Less than 6 Hours Per Day (ICD-10-PCS; 2021-09-05)
PROC: 5A1D70Z Performance of Urinary Filtration, Intermittent, Less than 6 Hours Per Day (ICD-10-PCS; 2021-09-07)
PROC: 5A1D70Z Performance of Urinary Filtration, Intermittent, Less than 6 Hours Per Day (ICD-10-PCS; 2021-09-09)
PROC: 5A1D70Z Performance of Urinary Filtration, Intermittent, Less than 6 Hours Per Day (ICD-10-PCS; 2021-09-12)
PROC: 5A1D70Z Performance of Urinary Filtration, Intermittent, Less than 6 Hours Per Day (ICD-10-PCS; 2021-09-14)
DX: T82.868A Thrombosis due to vascular prosthetic devices, implants and grafts, initial encounter (principal); E11.10 Type 2 diabetes mellitus with ketoacidosis without coma; N18.6 End stage renal disease; G93.41 Metabolic encephalopathy; E03.9 Hypothyroidism, unspecified; Y83.2 Surgical operation with anastomosis, bypass or graft as the cause of abnormal reaction of the patient, or of later complication, without mention of misadventure at the time of the procedure; Y92.89 Other specified places as the place of occurrence of the external cause; Z20.822 Contact with and (suspected) exposure to COVID-19; Z86.73 Personal history of transient ischemic attack (TIA), and cerebral infarction without residual deficits; E11.22 Type 2 diabetes mellitus with diabetic chronic kidney disease; Z99.2 Dependence on renal dialysis; Z86.711 Personal history of pulmonary embolism; G43.909 Migraine, unspecified, not intractable, without status migrainosus; Z79.4 Long term (current) use of insulin; Z79.899 Other long term (current) drug therapy; Z79.01 Long term (current) use of anticoagulants; Z83.3 Family history of diabetes mellitus; Z82.49 Family history of ischemic heart disease and other diseases of the circulatory system; R13.10 Dysphagia, unspecified; E83.52 Hypercalcemia; F41.9 Anxiety disorder, unspecified; F32.9 Major depressive disorder, single episode, unspecified
CPT/HCPCS: 36415; 36905; 70450; 70551; 71045; 74018; 76942; 80048; 80053; 80061; 80074; 80320; 82140; 82565; 82962; 83036; 83735; 83880; 84100; 84443; 85025; 85027; 85379; 85610; 85730; 86850; 86900; 86901; 87040; 93005; 93306; 93880; 93970; 94640; 95819; G0378; J3490; J7060; J7070; Q9967; C1725; C1751; C1757; C1769; C1894; C8929; G0480; J0360; J0456; J0690; J0692; J0878; J1450; J1630; J1644; J1815; J1953; J2060; J2250; J2405; J2997; J3010; J7030; J7040; J7050; U0003